=== PATIENT | female | born 1940 | race Hispanic/Latino ===

== ENCOUNTER 2017-12-28 12:47 | Emergency (ER) | payer MEDICARE ==
--- OUTSIDE RECORDS SUMMARY | 2017-12-28 12:50 | XMS REPORT | Clinical Summary ---
:1940 Author Organization [facility] Address [address] [place] [address] Care Team Providers Name Role Phone [place] Davis Primary Care Provider Unavailable Allergies Active Allergy Reactions Severity Noted Date Comments Amoxicillin-Pot Clavulanate Other (See Comments) 04/01/2017 Chest pain Iodine 03/31/2017 Levofloxacin 03/31/2017 Medications Medication Sig Dispensed Refills Start Date End Date Status aspirin (ECOTRIN) 81 Take 81 mg by 0 Active MG enteric coated mouth daily. tablet citalopram (CeleXA) 10 Take 10 mg by 0 Active MG tablet mouth daily. losartan-hydrochloroth Take 2 tablets by 0 Active iazide (HYZAAR) mouth daily. 50-12.5 mg per tablet potassium chloride Take 10 mEq by 0 Active (K-DUR,KLOR-CON) 10 mouth 2 (two) MEQ CR tablet times a day. atorvastatin (LIPITOR) Take 10 mg by 0 Active 10 MG tablet mouth nightly. metoprolol tartrate Take 50 mg by 0 Active (LOPRESSOR) 50 mg mouth 2 (two) tablet times a day. clopidogrel (PLAVIX) Take 75 mg by 0 Active 75 mg tablet mouth daily. pentoxifylline Take 400 mg by 0 Active (TRENTal) 400 mg CR mouth 3 (three) tablet times a day with meals. cetirizine (ZyrTEC) 10 Take 10 mg by 0 Active MG tablet mouth daily. brimonidine (ALPHAGAN) Administer 1 drop 0 Active 0.2 % ophthalmic to both eyes 2 solution (two) times a day. timolol (TIMOPTIC) 0.5 Administer 1 drop 0 Active % ophthalmic solution to both eyes 2 (two) times a day. latanoprost (XALATAN) Administer 1 drop 0 Active 0.005 % ophthalmic to both eyes solution nightly. glipiZIDE (GLUCOTROL) Take 10 mg by 0 Active 10 MG tablet mouth daily. benzonatate (TESSALON) Take 1 capsule 60 capsule 0 04/04/2017 Active 100 MG capsule (100 mg total) by mouth 3 (three) times a day as needed for cough for up to 60 doses. Active Problems Problem Noted Date Coronary artery disease involving [place] coronary artery 03/31/2017 Essential hypertension 03/31/2017 Depression 03/31/2017 NSTEMI (non-ST elevated myocardial infarction) 03/31/2017 Encounters Date Type Specialty Care Team Description 04/03/2017 Surgery Procedural Attar, Cv left heart cath w Cardiology MD Katia lv gram cors [08560 (CPT)] 03/31/2017 - Hospital Encounter Cardiology Chu, Coronary artery disease involving [place] coronary artery of [place] heart, angina presence unspecified (Primary Dx); 04/04/2017 Gunnar O. Sr., Essential hypertension; MD Álvarez single current episode of major depressive disorder after 12/27/2016 Immunizations Name Dates Previously Given Next Due Pneumococcal Conjugate 13-Valent 04/02/2017 Social History Tobacco Use Types Packs/Day Years Used Date Never Smoker Smokeless Tobacco: Never Used Sex Assigned at Date Recorded Not on file Job Start Date Occupation Industry Not on file Not on file Not on file Travel History Travel Start Travel End No recent travel history available. Last Filed Vital Signs Vital Sign Reading Time Taken Blood Pressure 167/72 04/04/2017 10:19 AM SURGEON ASSISTANT Pulse 66 04/04/2017 10:19 AM SURGEON ASSISTANT Temperature 36.1 C (97 F) 04/04/2017 7:08 AM SURGEON ASSISTANT Respiratory Rate 18 04/04/2017 7:08 AM SURGEON ASSISTANT Oxygen Saturation 89% 04/04/2017 10:19 AM SURGEON ASSISTANT Inhaled Oxygen Concentration - - Weight 64.8 kg (142 lb 14.4 oz) 04/04/2017 5:29 AM SURGEON ASSISTANT Height 152.4 cm (5') 03/31/2017 5:35 PM SURGEON ASSISTANT Body Mass Index 27.91 04/04/2017 5:29 AM SURGEON ASSISTANT Plan of Treatment Health Maintenance Due Date Last Done Comments SHINGRIX VACCINE (1 of 2) 1988 ZOSTER VACCINE 1998 PNEUMOCOCCAL POLYSACCHARIDE VACCINE AGE 65 AND OVER 07/23/2003 INFLUENZA VACCINE 09/13/2017 PNEUMOCOCCAL-13 Completed 04/02/2017 Procedures Procedure Name Priority Date/Time Associated Comments Diagnosis POC GLUCOSE Routine 04/04/2017 8:00 Results for this AM SURGEON ASSISTANT procedure are in the results section. PARTIAL THROMBOPLASTIN Routine 04/04/2017 5:10 Results for this TIME (PTT) AM SURGEON ASSISTANT procedure are in the results section. POC GLUCOSE Routine 04/03/2017 9:29 Results for this PM SURGEON ASSISTANT procedure are in the results section. POC GLUCOSE Routine 04/03/2017 6:08 Results for this PM SURGEON ASSISTANT procedure are in the results section. CV PCI STENT Routine 04/03/2017 5:36 Results for this PM SURGEON ASSISTANT procedure are in the results section. CV LEFT HEART CATH LV Routine 04/03/2017 5:36 Results for this GRAM WITH CORS PM SURGEON ASSISTANT procedure are in the results section. POC GLUCOSE Routine 04/03/2017 11:24 Results for this AM SURGEON ASSISTANT procedure are in the results section. POC GLUCOSE Routine 04/03/2017 7:47 Results for this AM SURGEON ASSISTANT procedure are in the results section. PARTIAL THROMBOPLASTIN Routine 04/03/2017 4:20 Results for this TIME (PTT) AM SURGEON ASSISTANT procedure are in the results section. HC COMPLETE BLD COUNT Routine 04/03/2017 4:20 Results for this W/AUTO DIFF AM SURGEON ASSISTANT procedure are in the results section. ZZESTIMATED GFR Routine 04/03/2017 4:00 Results for this AM SURGEON ASSISTANT procedure are in the results section. BASIC METABOLIC PANEL Routine 04/03/2017 4:00 Results for this AM SURGEON ASSISTANT procedure are in the results section. POC GLUCOSE Routine 04/02/2017 9:03 Results for this PM SURGEON ASSISTANT procedure are in the results section. POC GLUCOSE Routine 04/02/2017 5:19 Results for this PM SURGEON ASSISTANT procedure are in the results section. POC GLUCOSE Routine 04/02/2017 12:05 Results for this PM SURGEON ASSISTANT procedure are in the results section. POC GLUCOSE Routine 04/02/2017 7:40 Results for this AM SURGEON ASSISTANT procedure are in the results section. ZZESTIMATED GFR Routine 04/02/2017 4:00 Results for this AM SURGEON ASSISTANT procedure are in the results section. BASIC METABOLIC PANEL Routine 04/02/2017 4:00 Results for this AM SURGEON ASSISTANT procedure are in the results section. PARTIAL THROMBOPLASTIN Timed 04/02/2017 3:45 Results for this TIME (PTT) AM SURGEON ASSISTANT procedure are in the results section. HC COMPLETE BLD COUNT Routine 04/02/2017 3:45 Results for this W/AUTO DIFF AM SURGEON ASSISTANT procedure are in the results section. ECHOCARDIOGRAM 2D Routine 04/01/2017 10:34 Results for this COMPLETE W MMODE PM SURGEON ASSISTANT procedure are in SPECTRAL COLOR DOPPLER the results (46931) section. POC GLUCOSE Routine 04/01/2017 9:27 Results for this PM SURGEON ASSISTANT procedure are in the results section. PARTIAL THROMBOPLASTIN Timed 04/01/2017 6:40 Results for this TIME (PTT) PM SURGEON ASSISTANT procedure are in the results section. POC GLUCOSE Routine 04/01/2017 4:21 Results for this PM SURGEON ASSISTANT procedure are in the results section. POC GLUCOSE Routine 04/01/2017 12:14 Results for this PM SURGEON ASSISTANT procedure are in the results section. PARTIAL THROMBOPLASTIN Timed 04/01/2017 11:30 Results for this TIME (PTT) AM SURGEON ASSISTANT procedure are in the results section. POC GLUCOSE Routine 04/01/2017 7:39 Results for this AM SURGEON ASSISTANT procedure are in the results section. HEMOGLOBIN A1C Routine 04/01/2017 3:00 Results for this AM SURGEON ASSISTANT procedure are in the results section. ZZESTIMATED GFR Routine 04/01/2017 3:00 Results for this AM SURGEON ASSISTANT procedure are in the results section. T4, FREE Routine 04/01/2017 3:00 Results for this AM SURGEON ASSISTANT procedure are in the results section. THYROID STIMULATING Routine 04/01/2017 3:00 Results for this HORMONE AM SURGEON ASSISTANT procedure are in the results section. LIPID PANEL Routine 04/01/2017 3:00 Results for this AM SURGEON ASSISTANT procedure are in the results section. BASIC METABOLIC PANEL Routine 04/01/2017 3:00 Results for this AM SURGEON ASSISTANT procedure are in the results section. HC COMPLETE BLD COUNT Routine 04/01/2017 3:00 Results for this W/AUTO DIFF AM SURGEON ASSISTANT procedure are in the results section. PARTIAL THROMBOPLASTIN Routine 04/01/2017 2:30 Results for this TIME (PTT) AM SURGEON ASSISTANT procedure are in the results section. ECG 12-LEAD Routine 03/31/2017 6:45 Results for this PM SURGEON ASSISTANT procedure are in the results section. POC GLUCOSE Routine 03/31/2017 6:33 Results for this PM SURGEON ASSISTANT procedure are in the results section. TROPONIN Routine 03/31/2017 6:28 Results for this PM SURGEON ASSISTANT procedure are in the results section. PROTHROMBIN TIME WITH Routine 03/31/2017 6:28 Results for this INR PM SURGEON ASSISTANT procedure are in the results section. PARTIAL THROMBOPLASTIN Routine 03/31/2017 6:28 Results for this TIME (PTT) PM SURGEON ASSISTANT procedure are in the results section. after 12/27/2016 Results POC glucose (04/04/2017 8:00 AM SURGEON ASSISTANT)Only the most recent of14 resultswithin the time period is included. POC glucose 142 (H) 65 - 99 mg/dL [facility] DEPARTMENT OF PATHOLOGY AND Comment: [facility] Notified RN Meter ID: [id number] Tax Auditor: Manas Hancock Performing Organization Address [facility] Phone Number [facility] DEPARTMENT OF PATHOLOGY AND [address] [place] [id number] [facility] Partial thromboplastin time, activated (04/04/2017 5:10 AM SURGEON ASSISTANT)Only the most recent of7 resultswithin the time period is included. PTT 31.3 23.0 - 36.0 sec [facility] DEPARTMENT OF PATHOLOGY Comment: AND [facility] PTT therapeutic range for unfractionated heparin is 61.0-112.0 seconds which corresponds to Anti-Xa 0.3-0.7 U/ml. Specimen Blood Performing Organization Address [facility] Phone Number [facility] DEPARTMENT OF PATHOLOGY AND [address] [place] [address] [facility] Cv geophysical laboratory director procedure (04/03/2017 5:36 PM SURGEON ASSISTANT) Cath EF Estimated 53 % [facility] Narrative Performed At Left main 95% stenosis. LAD occluded proximally after the origin of the [facility] ramus branch. Circumflex occluded proximally. RCA occluded proximally. MEDINA to LAD patent. SVBG to RCA patent with proximal eccentric 50% lesion. SVBG to OM1 patent and fills the circumflex retrogradedly but distal OM is very small. LV EF 55-60% with inferior wall hypokinesis and anterior wall hypokinesis. Mitral valve prolapse with mild insufficiency. Performing Organization Address [facility] Phone Number [facility] [address] [place] [address] CBC with platelet and differential (04/03/2017 4:20 AM SURGEON ASSISTANT)Only the most recent of3 resultswithin the time period is included. WBC 7.06 4.50 - 11.00 k/uL [facility] DEPARTMENT OF PATHOLOGY AND GENOMIC MEDICINE RBC 4.54 4.20 - 5.50 m/uL [facility] DEPARTMENT OF PATHOLOGY AND GENOMIC MEDICINE HGB 11.4 (L) 12.0 - 16.0 g/dL [facility] DEPARTMENT OF PATHOLOGY AND GENOMIC MEDICINE HCT 36.8 (L) 37.0 - 47.0 % [facility] DEPARTMENT OF PATHOLOGY AND GENOMIC MEDICINE MCV 81.1 (L) 82.0 - 100.0 fL [facility] DEPARTMENT OF PATHOLOGY AND GENOMIC MEDICINE MCH 25.1 (L) 27.0 - 34.0 pg [facility] DEPARTMENT OF PATHOLOGY AND GENOMIC MEDICINE MCHC 31.0 31.0 - 37.0 g/dL [facility] DEPARTMENT OF PATHOLOGY AND GENOMIC MEDICINE RDW - SD 46.7 37.0 - 55.0 fL [facility] DEPARTMENT OF PATHOLOGY AND GENOMIC MEDICINE MPV 11.5 8.8 - 13.2 fL [facility] DEPARTMENT OF PATHOLOGY AND GENOMIC MEDICINE Platelet count 185 150 - 400 k/uL [facility] DEPARTMENT OF PATHOLOGY AND GENOMIC MEDICINE Nucleated RBC 0.30 /100 WBC [facility] DEPARTMENT OF PATHOLOGY AND GENOMIC MEDICINE Neutrophils 52.7 39.0 - 69.0 % [facility] DEPARTMENT OF PATHOLOGY AND GENOMIC MEDICINE Lymphocytes 34.6 25.0 - 45.0 % [facility] DEPARTMENT OF PATHOLOGY AND GENOMIC MEDICINE Monocytes 8.4 0.0 - 10.0 % [facility] DEPARTMENT OF PATHOLOGY AND GENOMIC MEDICINE Eosinophils 3.7 0.0 - 5.0 % [facility] DEPARTMENT OF PATHOLOGY AND GENOMIC MEDICINE Basophils 0.3 0.0 - 1.0 % [facility] DEPARTMENT OF PATHOLOGY AND GENOMIC MEDICINE Immature granulocytes 0.3Comment: 0.0 - 1.0 % [facility] DEPARTMENT OF "Immature PATHOLOGY AND GENOMIC granulocytes" MEDICINE (promyelocytes, myelocytes, metamyelocytes) Specimen Blood Performing Organization Address City/State/[facility] Phone Number [facility] DEPARTMENT OF PATHOLOGY AND [address] [place] [address] [employer] MEDICINE Estimated GFR (04/03/2017 4:00 AM SURGEON ASSISTANT)Only the most recent of3 resultswithin the time period is included. GFR Non Af Amer 81 mL/min/1.73 m2 [facility] DEPARTMENT OF PATHOLOGY AND GENOMIC MEDICINE GFR Af Amer >90 mL/min/1.73 m2 [facility] DEPARTMENT OF Comment: PATHOLOGY AND GENOMIC Chronic kidney disease: <60 mL/min/1.73m2 MEDICINE Kidney failure: <15 mL/min/1.73m2 The estimated GFR is calculated from the IDMS-traceable Modification of Diet in Renal Disease Equation. The accuracy of the calculation is poor when the creatinine is normal. Calculated values >90 mL/min/1.73m2 are not reported. This equation has not been validated in children (<18 years), women, the elderly (>70 years), or ethnic groups other than Caucasians and Americans. Specimen Plasma specimen Performing Organization Address City/[facility] Phone Number [facility] DEPARTMENT OF PATHOLOGY AND [address] [place] [address] MEDICINE Basic metabolic panel (04/03/2017 4:00 AM SURGEON ASSISTANT)Only the most recent of3 resultswithin the time period is included. Sodium 142 135 - 148 mEq/L [facility] DEPARTMENT OF PATHOLOGY AND GENOMIC MEDICINE Potassium 3.9 3.5 - 5.0 mEq/L [facility] DEPARTMENT OF PATHOLOGY AND GENOMIC MEDICINE Chloride 102 98 - 112 mEq/L [facility] DEPARTMENT OF PATHOLOGY AND GENOMIC MEDICINE CO2 25 24 - 31 mEq/L [facility] DEPARTMENT OF PATHOLOGY AND GENOMIC MEDICINE Anion gap 15 7 - 15 mEq/L [facility] DEPARTMENT OF PATHOLOGY Comment: AND GENOMIC MEDICINE Starting from May , anion gap calculation no longer incorporates potassium. Please note the change. BUN 25 (H) 8 - 23 mg/dL [facility] DEPARTMENT OF PATHOLOGY AND GENOMIC MEDICINE Creatinine 0.7 0.5 - 0.9 mg/dL [facility] DEPARTMENT OF PATHOLOGY AND GENOMIC MEDICINE Glucose 124 (H) 65 - 99 mg/dL [facility] DEPARTMENT OF PATHOLOGY AND GENOMIC MEDICINE Calcium 9.4 8.8 - 10.2 mg/dL [facility] DEPARTMENT OF PATHOLOGY AND GENOMIC MEDICINE Specimen Plasma specimen Performing Organization Address [facility] Phone Number [facility] DEPARTMENT OF PATHOLOGY AND [address] [place] [address] Echocardiogram complete w contrast and 3D if needed (04/01/2017 10:34 PM SURGEON ASSISTANT) Narrative Performed At [facility] Echocardiography Report [id number] [place] [address] Pat.Name:EVA HASKINS Pat.ID:[id number] .Date: 04/01/2017 Refer.MD:GUNNAR RENTERIA MD Exam Time: 9:50:00 PMStudy Type:Routine Echo Height:60inWeight: 143lb BSA: 1.62 m2 DOBAge:1940,76Y Sex: FEMALEBP:124/61 HR:70 bpmSonogrphr: Victor Manuel Garrido [place] Pat. Stat.:Inpatient Room:G2085-P Study Status:Final Echo Event ID:[id number] Order ID:[id number] Reason for Study:Acute Chest Pain (Rest Imaging Only)-Possible ACS; ECG-no ischemic changes or with LBBB or electronically ventricular paced rhythm; initial troponin negative; recent or ongoing chest pain History / Clinical:Chest Pain Procedures:2D Echo, Colorflow Doppler, Portable Race:C SUMMARY: LV size is normal. LV EF is normal. Estimated EF is 60-64%. RV size is normal. RV systolic function is normal. Moderate aortic valve stenosis. Eccentric mitral regurgitant jet directed posteriorly and laterally. Difficult to assess severity, suspect a moderate lesion. FINDINGS: LV: LV size is normal. LV EF is normal. Overall wall motion is normal.Estimated EF is 60-64%. RV: RV size is normal. RV systolic function is normal. LA: LA volume is difficult to assess due to off axis views, appearsenlarged. RA: RA size is normal. AO: Aortic root diameter is upper limits of normal in size. Calcificationsin ascending aorta. AKIN: No pericardial effusion. AV: Moderate to severe thickening and calcification of AV leaflets.Moderate aortic valve stenosis. MV: Thickened and/or calcified chordae. Eccentric mitral regurgitantjet directed posteriorly and laterally. Difficultto assess severity, suspect a moderate lesion. PV: No structural PV abnormalities noted. TV: No structural TV abnormalities noted. Pabon: Hepatic vein pressure is normal, RA pressure < 5mmHg. Diastolicdysfunction Grade II (Moderate): Impaired relaxationwith elevated LV filling pressures. Other:Insufficient TR jet to estimate PA systolic pressure. MEASUREMENTS: 2D Parasternal [place] LVOT 1.9 cmLA Ds3.3 cm LVIDd4.8 cmIndex2.9 cm/m Ao An2.3 cm LVIDs3.1 cmAo Rtd 3.1 cm Index1.9 cm/m LV%fs 34.2 % LV Qlqg405.3 g(87-129) IVSd 1 cmLVM Culul135 g/m2 LVPWd1 cmRWT0.4 LA Sng Plane LA Area 13.9 cm2(8.8-23.4) LA Vol33.5 ml Index20.7 ml/m LA LngAx 4.5 cm DOPPLER AV For Flow/JOANA AV pkVel 227.3 cm/s (100-170) AV AC/ET 0.3 AV mnVel 170.5 cm/Rebecca TVI58.2 cm AV pkPG 20.7 mmHgAVpkAcRt 14337.6 cm/s2 AV Mean G 13.6 mmHgAV CvNc844.4 cm/s2 AV AC105 msec (83-118) AV Area0.9 cm2(3-5) AV ET341 msec LVOT For Flow LVOT Area2.8 cm2 LVOT SV 54.7 ml LVOTpkVel 88.9 cm/sHR73.3 bpm LVOTpkPG 3.2 mmHgLVOT CO4 l/min LVOTmnPG 1.8 mmHgLVOT CI2.5 l/m/m2 LVOT TVI19.3 cm Signed 04/03/2017 09:29 AM Rohit Weathers M.D. Procedure Note Interface, Radiology Results In - 04/03/2017 9:29 AM SURGEON ASSISTANT Echocardiography Report [id number] [address] Pat.Name: EVA HASKINS Luis Jj.ID: [id number] .Date: 04/01/2017 Refer.MD: GUNNAR RENTERIA MD Exam Time: 9:50:00 PM Study Type:Routine Echo Height: 60in Weight: 143lb BSA: 1.62 m2 Age: 4 1940,76Y Sex: FEMALE BP: 124/61 HR: 70 bpm Sonogrphr: Victor Manuel Garrido RDCS Pat. Stat.:Inpatient Room: [address] Study Status:Final Echo Event ID:[id number] Order ID: [id number] Reason for Study:Acute Chest Pain (Rest Imaging Only)-Possible ACS; ECG-no ischemic changes or with LBBB or electronically ventricular paced rhythm; initial troponin negative; recent or ongoing chest pain History / Clinical:Chest Pain Procedures:2D Echo, Colorflow Doppler, Portable Race: C SUMMARY: LV size is normal. LV EF is normal. Estimated EF is 60-64%. RV size is normal. RV systolic function is normal. Moderate aortic valve stenosis. Eccentric mitral regurgitant jet directed posteriorly and laterally. Difficult to assess severity, suspect a moderate lesion. FINDINGS: LV: LV size is normal. LV EF is normal. Overall wall motion is normal. Estimated EF is 60-64%. RV: RV size is normal. RV systolic function is normal. LA: LA volume is difficult to assess due to off axis views, appears enlarged. RA: RA size is normal. AO: Aortic root diameter is upper limits of normal in size. Calcifications in ascending aorta. AKIN: No pericardial effusion. AV: Moderate to severe thickening and calcification of AV leaflets. Moderate aortic valve stenosis. MV: Thickened and/or calcified chordae. Eccentric mitral regurgitant jet directed posteriorly and laterally. Difficult to assess severity, suspect a moderate lesion. PV: No structural PV abnormalities noted. TV: No structural TV abnormalities noted. Pabon: Hepatic vein pressure is normal, RA pressure < 5mmHg. Diastolic dysfunction Grade II (Moderate): Impaired relaxation with elevated LV filling pressures. Other: Insufficient TR jet to estimate PA systolic pressure. MEASUREMENTS: 2D Parasternal [place] LVOT 1.9 cm LA Ds 3.3 cm LVIDd 4.8 cm Index 2.9 cm/m Ao An 2.3 cm LVIDs 3.1 cm Ao Rtd 3.1 cm Index 1.9 cm/m LV%fs 34.2 % LV Mass 173.3 g (87-129) IVSd 1 cm LVM Index 107 g/m2 LVPWd 1 cm RWT 0.4 LA Sng Plane LA Area 13.9 cm2 (8.8-23.4) LA Vol 33.5 ml Index 20.7 ml/m LA LngAx 4.5 cm DOPPLER AV For Flow/JOANA AV pkVel 227.3 cm/s (100-170) AV AC/ET 0.3 AV mnVel 170.5 cm/s AV TVI 58.2 cm AV pkPG 20.7 mmHg AVpkAcRt 15157.6 cm/s2 AV Mean G 13.6 mmHg AV DeRt 666.4 cm/s2 AV AC 105 msec (83-118) AV Area 0.9 cm2 (3-5) AV ET 341 msec LVOT For Flow LVOT Area 2.8 cm2 LVOT SV 54.7 ml LVOTpkVel 88.9 cm/s HR 73.3 bpm LVOTpkPG 3.2 mmHg LVOT CO 4 l/min LVOTmnPG 1.8 mmHg LVOT CI 2.5 l/m/m2 LVOT TVI 19.3 cm Signed 04/03/2017 09:29 AM Rohit Weathers M.D. Performing Organization Address City/State/Zipcode Phone Number [facility] [address] [place] [address] Thyroid stimulating hormone (04/01/2017 3:00 AM SURGEON ASSISTANT) TSH 1.54 0.27 - 4.20 uIU/mL [facility] DEPARTMENT OF PATHOLOGY AND GENOMIC MEDICINE Specimen Plasma specimen Performing Organization Address City/[facility] Phone Number [facility] DEPARTMENT OF PATHOLOGY AND [address] [place] [address] MEDICINE T4, free (04/01/2017 3:00 AM SURGEON ASSISTANT) T4, free 1.3 0.9 - 1.7 ng/dL [facility] DEPARTMENT OF PATHOLOGY AND GENOMIC MEDICINE Specimen Plasma specimen Performing Organization Address City/[facility] Phone Number [facility] DEPARTMENT OF PATHOLOGY AND [address] [place] [phone] [place] [address] MEDICINE Hemoglobin A1c (04/01/2017 3:00 AM SURGEON ASSISTANT) Hemoglobin A1C 6.8 (H) 4.0 - 5.6 % [facility] DEPARTMENT OF PATHOLOGY Comment: AND [facility] HbA1c cutoffs for diagnosing diabetes: 4.0% - 5.6%=normal 5.7% - 6.4%=increased risk for diabetes (prediabetes) >=6.5%=diabetes Goals for glycemic control (ADA 2016) < 7.0%Target for non adults with diabetes. More or less stringent targets may be appropriate for individual patients. <7.5% Target for Children and adolescents with type 1 diabetes. Performing Organization Address City/[facility] Phone Number [facility] DEPARTMENT OF PATHOLOGY AND [address] [place] [phone] [place] [address] Lipid panel (04/01/2017 3:00 AM SURGEON ASSISTANT) Cholesterol 139 <200 mg/dL [facility] DEPARTMENT OF PATHOLOGY AND GENOMIC MEDICINE Triglycerides 157 (H) <150 mg/dL [facility] DEPARTMENT OF PATHOLOGY AND GENOMIC MEDICINE HDL cholesterol 35 (L) >40 mg/dL [facility] DEPARTMENT OF PATHOLOGY AND GENOMIC MEDICINE LDL cholesterol 86Comment: Result <100 mg/dL [facility] DEPARTMENT OF obtained by direct LDL PATHOLOGY AND GENOMIC measurement MEDICINE Lipid panel interpretation SeeBelow [facility] DEPARTMENT OF Comment: PATHOLOGY AND GENOMIC Total Cholesterol (mg/dL) MEDICINE <200 Desirable 174-123Nnvmpbheha-mxvs >=240High Triglycerides (mg/dL) <150 Normal 538-241Imotoosfyc-nwdo 200-499High >=500Very high HDL Cholesterol (mg/dL) <40Low (male) <40Low (female) LDL Cholesterol (mg/dL) <100 Optimal 100-129Near or above optimal 364-570Ntkfanqjfu-yekx 160-189High >=190Very high Risk Catergories that modify LDL goals. Risk CatergoriesLDL goal (mg/dL) CHD and CHD risk equivalent<100 (10-year risk >20%) Multiple (2+) risk factors <130 (10-year risk=<20%) 0-1 risk factors <160 (<10-year risk) Defining levels of lipids in metabolic syndrome Triglycerides>=150 mg/dL HDL Cholesterol Men<40 mg/dL Women<40 mg/dL Non-HDL cholesterol is a second target for therapy in persons with high triglycerides (>=200 mg/dL) Specimen Plasma specimen Performing Organization Address City/[facility] Phone Number [facility] DEPARTMENT OF PATHOLOGY AND [address] [place] [address] [employer] MEDICINE ECG 12 lead (03/31/2017 6:45 PM SURGEON ASSISTANT) Ventricular rate 65 [facility] Atrial rate 65 [facility] ID interval 130 [facility] QRSD interval 86 [facility] QT interval 428 [facility] MUSE QTC interval 445 [facility] MUSE P axis 1 37 [facility]USE QRS axis 1 -13 [facility] MUSE T wave axis 147 [facility] MUSE EKG impression Normal sinus rhythm-ST & T wave abnormality, [facility] MUSE consider lateral ischemia-Abnormal ECG-In automated comparison with ECG of 16-MAR-2015 14:08,-No significant change was found- Performing Organization Address [facility] [place] Phone Number [facility] MUSE [address] [place] [address] Troponin (03/31/2017 6:28 PM SURGEON ASSISTANT) Troponin <0.30 0.00 - 0.30 ng/mL [facility] DEPARTMENT OF PATHOLOGY Comment: AND GENOMIC MEDICINE 0.30 - 1.49 ng/mlMay indicate increased risk of acute coronary syndrome. >=1.5 ng/mlConsistent with acute myocardial infarction. The diagnostic value of a single normal or non-diagnostic result is questionable.Serial samples at 2-6 hour intervals are required to rule out acute myocardial injury. Specimen Plasma specimen Performing Organization Address [facility]/Zipcode Phone Number [facility] DEPARTMENT OF PATHOLOGY AND [address] [place] [address] GENOMIC MEDICINE Prothrombin time with INR (03/31/2017 6:28 PM SURGEON ASSISTANT) Prothrombin time 14.5 12.0 - 15.0 sec [facility] DEPARTMENT OF PATHOLOGY AND GENOMIC MEDICINE INR 1.1 [facility] DEPARTMENT OF Comment: PATHOLOGY AND GENOMIC The International Normalized Ratio (INR) is a therapeutic MEDICINE monitoring tool for patients who are stable on oral anticoagulant therapy. An INR of 2.0-3.0 is suggested for deep vein thrombosis/pulmonary embolism. Specimen Blood Performing Organization Address City/State/Zipcode Phone Number [facility] DEPARTMENT OF PATHOLOGY AND [address] [place] [address] GENOMIC MEDICINE after 12/27/2016 Insurance Payer Benefit Plan / Group Subscriber ID Type Phone Address UHC MEDICARE AARP MEDICARE COMPLETE [facility] xxxxxxxxx O Advance Directives Patient has advance care planning documents, and code status on file. For more information, please contact:Fernando Deleon[address] [place] [address] Code Status Date Activated Date Inactivated Comments Full Code 03/31/2017 5:49 PM 04/04/2017 3:42 PM Code Status decision reached by: Patient
--- OUTSIDE RECORDS SUMMARY | 2017-12-28 12:55 | XMS REPORT | Continuity of Care Document ---
:1940 Author Organization Interface Problems Problem Status Onset Classification Date Comments Source Date Reported UNK Active 017 [facility] 433.10/05921 Active 013 [facility] 433.10, CAROTID ARTERY Active STENOSIS 013 [facility] CAROTID STENOSIS Active 013 [facility] OTHER Active 013 [facility] TIA Resolved Problem 06/17/2016 011 [facility] DM - Diabetes mellitus Resolved Problem 04/28/2012 [facility] Hypercholesterolemia Resolved Problem 04/28/2012 [facility] Hypertension Resolved Problem 04/28/2012 [facility] Acid reflux Active Problem 06/17/2016 [facility] Claudication Active Problem 06/17/2016 [facility] Cough Active Problem 06/17/2016 [facility] Diabetes mellitus Active Problem 06/17/2016 [facility] DM - Diabetes mellitus Resolved Problem 06/17/2016 [facility] Heart Active Problem 06/17/2016 2005 [facility] attack<sup>1</sup> [facility] Hypercholesterolemia Active Problem 06/17/2016 [facility] Hypertension Resolved Problem 06/17/2016 [facility] Hypertension Active Problem 06/17/2016 [facility] CAROTID SINUS SYNDROME Active [facility] EMBOLISM AND Active THROMBOSIS OF ARTERIES [facility]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 Use immediately after admixture" (Same as: Ferrlecit) MEDICATION WASTE Product Size: 62.5 mg Product Wasted: ___ mg Timolol 5 MG/ML 1 drp, No Longer Ophthalmic Route: Active 2016 [facility] Solution OPTH, QPM, Drug form: SOLN, Start date: 06/12/16 17:00:00 CDT, Duration: 30 day, Stop date: 07/11/16 17:00:00 CDTNotes: (Same As: Timoptic, Betimol) Brimonidine 1 drp, No Longer tartrate 1.5 Route: Active 2016 [facility] MG/ML OPTH, BID, Ophthalmic Drug form: Solution SOLN, Start date: 06/12/16 9:00:00 CDT, Duration: 30 day, Stop date: 07/11/16 17:00:00 CDTNotes: Non-formula ry. (Same as: Alphagan-P) Atropine 0.5 mg, 5 No Longer mL, Route: Active 2016 [facility] IVP, Drug form: INJ, PRN, Dosing Weight 66.818, kg, PRN Bradycardia , Start date: 06/11/16 22:37:00 CDT, Duration: 30 day, Stop date: 07/11/16 22:36:00 CDT Nitroglycerin 0.4 mg, 1 No Longer 0.4 MG tab, Route: Active 2016 [facility] Sublingual SL, Drug Tablet form: TAB, Q5Min, Dosing Weight 66.818, kg, PRN as needed for chest pain, Start date: 06/11/16 22:37:00 CDT, Duration: 30 day, Stop date: 07/11/16 22:36:00 CDTNotes: (Same as:Nitroqui ck, Nitrostat) "Do Not Crush" Sublingual tablet latanoprost 1 drp, No Longer 0.05 MG/ML Route: Active 2016 [facility] Ophthalmic OPTH, Solution Bedtime, Drug form: SOLN, Start date: 06/11/16 21:00:00 CDT, Duration: 30 day, Stop date: 07/10/16 21:00:00 CDTNotes: Keep refrigerate d. (Same as:Xalatan) Opened bottle may be stored at room temperature for 6 weeks Ferrlecit 100 mg, 8 Inactive mL, Route: 2016 [facility] IVPB, Drug form: INJ, ONCE, Dosing Weight 66.818, kg, Start date: 06/11/16 13:45:00 CDT, Stop date: 06/11/16 13:45:00 CDTNotes: (sodium ferric gluconate complex (elemental iron) 62.5 mg/5 ml INJ) "Limited stability. Use immediately after admixture" (Same as: Ferrlecit) MEDICATION WASTE Product Size: 62.5 mg Product Wasted: ___ mg Plavix 75 mg, 1 No Longer tab, Route: Active 2016 [facility] PO, Drug form: TAB, Daily, Dosing Weight 66.818, kg, Start date: 06/11/16 9:00:00 CDT, Duration: 30 day, Stop date: 07/10/16 9:00:00 CDTNotes: (Same As: Plavix) Hydrochlorothia 1 tab, No Longer zide 25 MG / Route: PO, Active 2016 [facility] Losartan Drug Form: Potassium 100 TAB, Dosing MG Oral Tablet Weight 66.818, kg, Daily, Start date: 06/10/16 9:00:00 CDT, Duration: 30 day, Stop date: 07/09/16 9:00:00 CDT Lasix 20 mg, 2 Inactive mL, Route: 2016 [facility] IV, Drug form: INJ, Daily, Dosing Weight 66.818, kg, Start date: 06/10/16 9:00:00 CDT, Duration: 1 doses or times, Stop date: 06/10/16 9:00:00 CDTNotes: (Same as: Lasix) Citalopram 10 mg, 1 No Longer tab, Route: Active 2016 [facility] PO, Drug form: TAB, Daily, Dosing Weight 66.818, kg, Start date: 06/10/16 9:00:00 CDT, Duration: 30 day, Stop date: 07/09/16 9:00:00 CDT hydrochlorothia 25 mg, 1 No Longer zide 25 mg oral tab, Route: Active 2016 [facility] tablet PO, Drug form: TAB, Daily, Start date: 06/10/16 9:00:00 CDT, Duration: 30 day, Stop date: 07/09/16 9:00:00 CDTNotes: (Same as: Hydrodiuril ) With food. Cozaar 100 mg, 2 No Longer tab, Route: Active 2016 [facility] PO, Drug form: TAB, Daily, Start date: 06/10/16 9:00:00 CDT, Duration: 30 day, Stop date: 07/09/16 9:00:00 CDTNotes: (Same as: Cozaar) sodium chloride 250 mL, No Longer 0.9% INJ 250 mL Rate: On 2016 [facility] call for use with blood product administrat ion, Dosing Weight 66.818, kg, Route: IV, Total Volume: 250, Start Date: 06/10/16 6:30:00 CDT, Duration: 1 day, Stop date: 06/11/16 6:29:00 CDT, Replace Every: 24 hr Alprazolam 0.5 0.5 mg, 1 Inactive MG Oral Tablet tab, Route: 2016 [facility] [Xanax] PO, Drug form: TAB, ONCE, Dosing Weight 66.818, kg, PRN Anxiety, Start date: 06/09/16 23:18:00 CDTNotes: With food or milk (Same as: Xanax) Symbicort 2 No Longer 160/4.5 inhalation, Active 2016 [facility] inhalation Route: aerosol with INHALATION, adapter Drug Form: AERO/A, Dosing Weight 66.818, kg, BID, Start date: 06/09/16 21:00:00 CDT, Duration: 30 day, Stop date: 07/09/16 9:00:00 CDTNotes: (Same as: Symbicort) WASTE: Aerosol - Return to Pharmacy atorvastatin 10 mg, 1 No Longer tab, Route: Active 2016 [facility] PO, Drug form: TAB, Bedtime, Dosing Weight 66.818, kg, Start date: 06/09/16 21:00:00 CDT, Duration: 30 day, Stop date: 07/08/16 21:00:00 CDTNotes: (Same As: Lipitor) insulin, 10 unit, No Longer isophane 0.1 mL, 2016 [facility] Route: SUB-Q, Drug form: INJ, Q12H, Dosing Weight 66.818, kg, Start date: 06/09/16 21:00:00 CDT, Duration: 30 day, Stop date: 07/09/16 9:00:00 CDTNotes: Roll in palms of hands gently; Do not shake vigorously. (Same as: NovoLIN N, Humulin N) Do not hold insulin without contacting prescriber "single patient use only" WASTE: F/P - Black; E - Municipal Trash Bin Stable for 14 days at room temperature Expires in days from ___Date Dextrose 50% 25 mL, Inactive Syringe Route: IVP, 2016 [facility] Dosing Weight 66.818, kg, PRN, PRN Blood Glucose Results, Start date: 06/09/16 9:55:00 CDT, Duration: 30 day, Stop date: 07/09/16 9:54:00 CDT Glucagon 1 mg, Inactive Route: IM, 2016 [facility] PRN, Dosing Weight 66.818, kg, PRN Blood Glucose Results, Start date: 06/09/16 9:55:00 CDT, Duration: 30 day, Stop date: 07/09/16 9:54:00 CDT metoprolol 50 mg, 1 No Longer tartrate tab, Route: Active 2016 [facility] PO, Drug form: TAB, Q12H, Dosing Weight 66.818, kg, Start date: 06/09/16 9:00:00 CDT, Duration: 30 day, Stop date: 07/08/16 21:00:00 CDTNotes: (Same as: Lopressor) Streptococcus 0.5 mL, Inactive pneumoniae Route: IM, 2016 [facility] serotype 1 Drug Form: capsular INJ, Daily, antigen Start date: diphtheria 06/09/16 [id number] protein 9:00:00 conjugate CDT, Stop vaccine / date: Streptococcus 06/09/16 pneumoniae 17:00:00 serotype 14 CDTNotes: capsular Lightly antigen roll vial diphtheria (DO NOT [id number] protein SHAKE) conjugate before vaccine / administrat Streptococcus ion. (Same pneumoniae as: Prevnar serotype 18C 13) capsular antigen d Lovenox 40 mg, 0.4 No Longer mL, Route: Active 2016 [facility] SUB-Q, Drug form: INJ, [id number], Dosing Weight 66.818, kg, Priority: Within 8 hours, Start date: 06/09/16 6:00:00 CDT, Duration: 30 day, Stop date: 07/08/16 6:00:00 CDTNotes: (Same as: Lovenox) Insulin, 12 unit, No Longer Aspart, Human 0.12 mL, Active 2016 [facility] Route: SUB-Q, Drug form: SOLN, TID-Before Meals, Dosing Weight 66.818, kg, PRN Blood Glucose Results, Start date: 06/08/16 21:44:00 CDT, Duration: 30 day, Stop date: 07/08/16 21:43:00 CDTNotes: Roll in palms of hands gently; Do not shake vigorously. (Same as: NovoLOG) "single patient use only" WASTE: F/P - Black; E - Municipal Trash Bin Stable for 28 days at room temperature . Expires in days from ___Date Dextrose 50% 25 gm, 50 No Longer Syringe mL, Route: Active 2016 [facility] IVP, Drug Form: INJ, Dosing Weight 66.818, kg, PRN, PRN Blood Glucose Results, Start date: 06/08/16 21:44:00 CDT, Duration: 30 day, Stop date: 07/08/16 21:43:00 CDT Glucagon 1 mg, No Longer Route: IM, Active 2016 [facility] Drug form: PDR/INJ, PRN, Dosing Weight 66.818, kg, PRN Blood Glucose Results, Start date: 06/08/16 21:44:00 CDT, Duration: 30 day, Stop date: 07/08/16 21:43:00 CDT Labetalol 10 mg, 2 No Longer mL, Route: Active 2016 [facility] IV, Drug form: INJ, Q6H, Dosing Weight 66.818, kg, PRN Hypertensio n, Start date: 06/08/16 14:46:00 CDT, Duration: 30 day, Stop date: 07/08/16 14:45:00 CDTNotes: (Same as: Normodyne, Trandate) Push over 2 minutes Give bolus over 2-3 minutes. Hydralazine 10 mg, 0.5 No Longer mL, Route: Active 2016 [facility] IV, Drug form: INJ, Q4H, Dosing Weight 66.818, kg, PRN Hypertensio n, Start date: 06/08/16 14:45:00 CDT, Duration: 30 day, Stop date: 07/08/16 14:44:00 CDTNotes: (Same as: Apresoline) Push over 5 minutes Hydralazine 10 mg, 0.5 Inactive mL, Route: 2016 [facility] IV, Drug form: INJ, ONCE, Dosing Weight 66.818, kg, PRN Hypertensio n, Start date: 06/08/16 13:51:00 CDT, htnNotes: (Same as: Apresoline) Push over 5 minutes glycopyrrolate Route: IV, Inactive (ANES) Drug form: 2016 [facility] INJ, ONCE, Stop date: 06/08/16 11:45:00 CDT neostigmine Route: IV, Inactive (ANES) Drug form: 2016 [facility] INJ, ONCE, Stop date: 06/08/16 11:45:00 CDT ondansetron Route: IV, Inactive (ANES) Drug form: 2016 [facility] INJ, ONCE, Stop date: 06/08/16 11:44:00 CDT sodium chloride 1,000 mL, No Longer 0.9% 1000 ml Rate: 100 Active 2016 [facility] INJ 1,000 mL ml/hr, Infuse over: 10 hr, Route: IV, Dosing Weight 66.818 kg, Total Volume: 1,000, Start date: 06/08/16 11:33:00 CDT, Duration: 30 day, Stop date: 07/08/16 11:32:00 CDT Morphine 2 mg, 1 mL, No Longer Route: IVP, Active 2016 [facility] Drug form: INJ, Q3H, Dosing Weight 66.818, kg, PRN Pain Score 1-3, Start date: 06/08/16 11:33:00 CDT, Duration: 30 day, Stop date: 07/08/16 11:32:00 CDTNotes: (Same as:MORPhine Sulfate) acetaminophen-c 1 tab, No Longer odeine #3 Route: PO, Active 2016 [facility] Drug Form: TAB, Dosing Weight 66.818, kg, Q4H, PRN Pain Score 4-6, Start date: 06/08/16 11:33:00 CDT, Duration: 30 day, Stop date: 07/08/16 11:32:00 CDTNotes: Do not exceed 4gm/day of acetaminoph en. (Same as: Tylenol with Codeine # 3) protamine Route: IV, Inactive (ANES) (ANES) Drug form: 2016 [facility] INJ, Start date: 06/08/16 11:14:00 CDT, Stop date: 06/08/16 12:14:00 CDT norepinephrine Route: IV, Inactive (ANES) Drug form: 2016 [facility] INJ, ONCE, Stop date: 06/08/16 11:04:00 CDT lidocaine Route: IV, Inactive (ANES) Drug form: 2016 [facility] INJ, ONCE, Stop date: 06/08/16 10:55:00 CDT rocuronium Route: IV, Inactive (ANES) Drug form: 2016 [facility] INJ, ONCE, Stop date: 06/08/16 10:55:00 CDT propofol (ANES) Route: IV, Inactive Drug form: 2016 [facility] INJ, ONCE, Stop date: 06/08/16 10:55:00 CDT heparin (ANES) Route: IV, Inactive Drug form: 2016 [facility] INJ, ONCE, Stop date: 06/08/16 10:55:00 CDT fentaNYL (ANES) Route: IV, Inactive Drug form: 2016 [facility] INJ, ONCE, Stop date: 06/08/16 10:54:00 CDT acetaminophen Route: IV, Inactive (ANES) (ANES) Drug form: 2016 [facility] INJ, Start date: 06/08/16 10:45:00 CDT, Stop date: 06/08/16 11:45:00 CDT famotidine Route: IV, Inactive (ANES) Drug form: 2016 [facility] INJ, ONCE, Stop date: 06/08/16 10:39:00 CDT methylPREDNISol Route: IV, Inactive one (ANES) Drug form: 2016 [facility] INJ, ONCE, Stop date: 06/08/16 10:39:00 CDT diphenhydrAMINE Route: IV, Inactive (ANES) Drug form: 2016 [facility] INJ, ONCE, Stop date: 06/08/16 10:39:00 CDT norepinephrine Route: IV, Inactive MH (ANES) (ANES) Drug form: 2016 [facility] INJ, Start date: 06/08/16 10:25:00 CDT, Stop date: 06/08/16 11:25:00 CDT vancomycin Route: IV, Inactive (ANES) (ANES) Drug form: 2016 [facility] INJ, Start date: 06/08/16 10:01:00 CDT, Stop date: 06/08/16 11:01:00 CDT sodium chloride Route: IV, Inactive 0.9% 1000 ml Total 2016 [facility] INJ (ANES) Volume: 1,000, Start date: 06/08/16 9:57:00 CDT, Stop date: 06/08/16 10:57:00 CDT ceFAZolin Route: IV, Inactive (ANES) (ANES) Drug form: 2016 [facility] INJ, Start date: 06/08/16 9:51:00 CDT, Stop date: 06/08/16 10:51:00 CDT LR 1000 mL INJ Route: IV, Inactive (ANES) Total 2016 [facility] Volume: 1,000, Start date: 06/08/16 9:30:00 CDT, Stop date: 06/08/16 10:30:00 CDT Insulin regular 6 unit, Inactive Route: IV, 2016 [facility] ONCE, Dosing Weight 66.818, kg, Start date: 06/08/16 9:10:00 CDT, Stop date: 06/08/16 9:10:00 CDT Albuterol 0.833 3 mL, Inactive MG/ML / Route: NEB, 2016 [facility] Ipratropium Drug Form: [place] 0.167 SOLN, MG/ML Inhalant Dosing Solution Weight 66.818, kg, ONCE, STAT, Start date: 06/08/16 9:07:00 CDT, Stop date: 06/08/16 9:07:00 CDTNotes: (Same as: Duoneb) Calcium 1,000 mL, No Longer Chloride 0.0014 Rate: 25 Active 2016 [facility] MEQ/ML / ml/hr, Potassium Infuse Chloride 0.004 over: 40 MEQ/ML / Sodium hr, Route: Chloride 0.103 IV, Dosing MEQ/ML / Sodium Weight Lactate 0.028 66.818 kg, MEQ/ML Total Injectable Volume: Solution 1,000, Start date: 06/08/16 9:07:00 CDT, Duration: 1 day, Stop date: 06/09/16 9:06:00 CDT Vancomycin 1 gm, No Longer Route: Active 2016 [facility] IVPB, PRE OP, Dosing Weight 68.636, kg, Start date: 06/08/16 7:00:00 CDT, Stop date: 06/09/16 7:47:00 CDTNotes: TIME CRITICAL MEDICATION (Same As: Vancocin) Infusion rate 2001 mg: infuse over 2.5 hours MEDICATION WASTE Product Size: 1000 mg Product Wasted: ___ mg Ancef 2 gm, 100 No Longer mL, Route: Active 2016 [facility] IVPB, Drug form: INJ, PRE OP, Dosing Weight 68.636, kg, Start date: 06/08/16 7:00:00 CDT, Stop date: 06/09/16 7:46:00 CDTNotes: Same as: Ancef Morphine 2 mg, Inactive Route: IVP, 2016 [facility] Q3H, Dosing Weight 68.636, kg, PRN Pain Score 1-3, Start date: 06/03/16 12:29:00 CDT, Duration: 30 day, Stop date: 07/03/16 12:28:00 CDT acetaminophen-c 2 tab, Inactive odeine #3 Route: PO, 2016 [facility] Drug Form: TAB, Dosing Weight 68.636, kg, Q4H, PRN Pain Score 4-6, Start date: 06/03/16 12:29:00 CDT, Duration: 30 day, Stop date: 07/03/16 12:28:00 CDT diphenhydrAMINE Route: IV, Inactive (ANES) Drug form: 2016 [facility] INJ, ONCE, Stop date: 06/03/16 12:24:00 CDT methylPREDNISol Route: IV, Inactive one (ANES) Drug form: 2016 [facility] INJ, ONCE, Stop date: 06/03/16 12:24:00 CDT ondansetron Route: IV, Inactive (ANES) Drug form: 2016 [facility] INJ, ONCE, Stop date: 06/03/16 12:24:00 CDT fentaNYL (ANES) Route: IV, Inactive Drug form: 2016 [facility] INJ, ONCE, Stop date: 06/03/16 12:24:00 CDT midazolam Route: IV, Inactive (ANES) Drug form: 2016 [facility] SOLN, ONCE, Stop date: 06/03/16 12:24:00 CDT famotidine Route: IV, Inactive (ANES) Drug form: 2016 [facility] INJ, ONCE, Stop date: 06/03/16 12:24:00 CDT vancomycin Route: IV, Inactive (ANES) (ANES) Drug form: 2016 [facility] INJ, Start date: 06/03/16 12:00:00 CDT, Stop date: 06/03/16 13:00:00 CDT ceFAZolin Route: IV, Inactive (ANES) (ANES) Drug form: 2016 [facility] INJ, Start date: 06/03/16 11:47:00 CDT, Stop date: 06/03/16 12:47:00 CDT LR 1000 mL INJ Route: IV, Inactive (ANES) Total 2016 [facility] Volume: 1,000, Start date: 06/03/16 11:35:00 CDT, Stop date: 06/03/16 12:35:00 CDT Insulin regular 2 unit, Inactive Route: IV, 2016 [facility] ONCE, Dosing Weight 68.636, kg, Start date: 06/03/16 11:03:00 CDT, Stop date: 06/03/16 11:03:00 CDT Insulin regular 6 unit, Inactive Route: IV, 2016 [facility] ONCE, Dosing Weight 68.636, kg, Start date: 06/03/16 10:44:00 CDT, Stop date: 06/03/16 10:44:00 CDT Insulin regular 6 unit, Inactive Route: IV, 2016 [facility] ONCE, Dosing Weight 68.636, kg, Start date: 06/03/16 10:42:00 CDT, Stop date: 06/03/16 10:42:00 CDT Lactated 1,000 mL, Inactive Ringers 1,000 Rate: 40 2016 mL ml/hr, Infuse over: 25 hr, Route: IV, Dosing Weight 68.636 kg, Total Volume: 1,000, Start date: 06/03/16 10:41:00 CDT, Duration: 30 day, Stop date: 07/03/16 10:40:00 CDT Vancomycin 1 gm, No Longer Route: IV, Active 2016 [facility] PRE OP, Dosing Weight 72.727, kg, Start date: 05/26/16 9:00:00 CDT, Duration: 30 day, Stop date: 06/25/16 8:59:00 CDTNotes: TIME CRITICAL MEDICATION (Same As: Vancocin) Infusion rate 2001 mg: infuse over 2.5 hours MEDICATION WASTE Product Size: 1000 mg Product Wasted: ___ mg Ancef 2 gm, 100 No Longer mL, Route: Active 2016 [facility] IVPB, Drug form: INJ, PRE OP, Dosing Weight 72.727, kg, Start date: 05/26/16 9:00:00 CDT, Duration: 30 day, Stop date: 06/25/16 8:59:00 CDTNotes: Same as: Ancef Alendronic acid 70 mg=1 Active 70 MG Oral tab, PO, 0 2016 Tablet Refill(s) Vitamin B12 1,000 Active 1000 mcg oral microgram=1 2016 tablet tab, PO, Daily, 0 Refill(s) citalopram 10 10 mg=1 Active mg oral tablet tab, PO, 2016 Daily, 0 Refill(s) GlipiZIDE XL 10 10 mg=1 Active mg oral tablet, tab, PO, 2016 extended Daily, 0 release Refill(s) Potassium 10 mEq=1 Active Chloride 10 MEQ tab, PO, 2016 Extended BID, 0 Release Tablet Refill(s) [Klor-Con] pentoxifylline 400 mg=1 Active 400 mg oral tab, PO, 2016 tablet, TID, 0 extended Refill(s) release isosorbide 20 mg, 1 PO No Longer [place] dinitrate tab, Route: Active 2012 PO, Drug form: TAB, TID, Dosing Weight 69.091, kg, Start date: 04/26/12 13:00:00, Duration: 30 day, Stop date: 05/26/12 9:00:00 losartan 50 mg 100 mg, 2 PO Active [place] oral tablet tab, PO, 2012 Daily, 30 tab, Substitutio n Allowed, TAB metoprolol 50 75 mg, 1.5 PO Active [place] 04/26/ mg oral tablet tab, PO, 2012 BID, 30 tab, Substitutio n Allowed, TAB rosuvastatin 10 20 mg, 2 PO Active [place] 04/26/ mg oral tablet tab, PO, 2012 QPM, 30 tab, Substitutio n Allowed, TAB isosorbide 20 mg, 1 PO Active [place] 04/26/ dinitrate 20 mg tab, PO, 2012 oral tablet BID, 60 tab, Substitutio n Allowed, TAB diphenhydrAMINE 25 mg, 1 PO Active [place] 04/26/ MH 25 mg oral tab, PO, 2012 tablet TID, PRN, 30 tab, Itching, Substitutio n Allowed, TAB aspirin 325 mg 325 mg, 1 PO Active [place] tablet, enteric tab, PO, 2012 coated QAM, 30 tab, Substitutio n Allowed, ECTAB acetaminophen-h 1 tab, PO, PO Active [place] ydrocodone 325 Q4H, PRN, 2012 mg-5 mg oral 30 tab, tablet Pain Score 1-3, Substitutio n Allowed, Maintenance , TAB isosorbide 20 mg, 1 PO No Longer [place] dinitrate tab, Route: Active 2012 [facility] PO, Drug form: TAB, BID, Dosing Weight 69.091, kg, Start date: 04/25/12 21:00:00, Duration: 30 day, Stop date: 05/25/12 17:00:00 Crestor 20 mg, 2 PO No Longer [place] tab, Route: 2012 [facility] PO, Drug form: TAB, QPM, Dosing Weight 69.091, kg, Start date: 04/25/12 21:00:00, Duration: 30 day, Stop date: 05/25/12 17:00:00 methylPREDNISol 20 mg, 0.5 IV No Longer [place] one mL, Route: 2012 [facility] IV, Drug form: INJ, ONCE, Start date: 04/25/12 20:20:00, Stop date: 04/25/12 20:20:00 simvastatin 10 mg, 1 PO No Longer [place] tab, Route: Active 2012 [facility] PO, Drug form: TAB, Bedtime, Dosing Weight 69.091, kg, Start date: 04/24/12 21:00:00, Duration: 30 day, Stop date: 05/23/12 21:00:00 Benadryl 25 mg, 1 PO No Longer Shant tab, Route: 2012 [facility] PO, Drug form: TAB, TID, Dosing Weight 69.091, kg, PRN Itching, Start date: 04/24/12 4:47:00, Duration: 30 day, Stop date: 05/24/12 4:46:00 1/2 NS 1,000 mL 1,000 mL, IV No Longer [place] Rate: 50 2012 [facility] ml/hr, Infuse over: 20 hr, Route: IV, kg, Total Volume: 1,000, Start date: 04/22/12 19:46:00, Duration: 30 day, Stop date: 05/22/12 19:45:00 Robitussin 100 200 mg, 10 PO No Longer [place] mg/5 mL oral mL, Route: Active 2012 [facility] liquid PO, Drug form: LIQ, Q4H, Dosing Weight 69.091, kg, Start date: 04/22/12 14:24:00, Duration: 30 day, Stop date: 05/22/12 12:00:00 potassium 20 mEq, 100 IVPB No Longer [place] chloride mL, Route: 2012 [facility] IVPB, Drug form: INJ, Q2H, Start date: 04/22/12 10:00:00, Duration: 2 doses or times, Stop date: 04/22/12 12:00:00 Geodon 10 mg, IM No Longer [place] Route: IM, 2012 [facility] Drug form: PDR/INJ, Q8H, PRN Anxiety, Start date: 04/22/12 0:52:00, Duration: 30 day, Stop date: 05/22/12 0:51:00 aspirin 325 mg 325 mg, 1 PO No Longer Marcin tablet, enteric tab, Route: 2012 [facility] coated PO, Drug form: ECTAB, QAM, Start date: 04/21/12 9:00:00, Duration: 30 day, Stop date: 05/20/12 9:00:00 famotidine 20 mg, 1 PO No Longer [place] tab, Route: 2012 [facility] PO, Drug form: TAB, Daily, Dosing Weight 69.091, kg, Start date: 04/21/12 9:00:00, Duration: 30 day, Stop date: 05/20/12 9:00:00 niCARdipine IV, Start IV No Longer Terminella date: [facility] 2012 [facility] 04/20/12 17:35:00, Duration: 30, 200 ml, 69.091 Sodium Chloride 1,000 mL, IV No Longer [place] 0.9% IV 1,000 Rate: 70 2012 [facility] mL ml/hr, Infuse over: 14.3 hr, Route: IV, kg, Total Volume: 1,000, Start date: 04/20/12 15:38:00, Stop date: 05/20/12 15:37:00 Tylenol 650 mg, 1 [place] No Longer Marcin supp, 2012 [facility] Route: AK, Drug form: SUPP, Q4H, PRN Fever, Start date: 04/20/12 15:36:00, Duration: 30 day, Stop date: 05/20/12 15:35:00 Tylenol 650 mg, 2 PO No Longer [place] tab, Route: Active 2012 [facility] PO, Drug form: TAB, Q4H, PRN Fever, Start date: 04/20/12 15:35:00, Duration: 30 day, Stop date: 05/20/12 15:34:00 Zofran 4 mg, 2 mL, IVP No Longer [place] Route: IVP, Active 2012 [facility] Drug form: INJ, Q6H, PRN Nausea & Vomiting, Start date: 04/20/12 15:33:00, Duration: 30 day, Stop date: 05/20/12 15:32:00 morphine 4 mg, 2 mL, IV No Longer [facility] Sulfate Route: IV, 2012 [facility] Drug form: INJ, Q2H, PRN Pain Score 7-10, Start date: 04/20/12 15:27:00, Duration: 30 day, Stop date: 05/20/12 15:26:00 morphine 2 mg, 1 mL, IV No Longer [place] Sulfate Route: IV, Active 2012 [facility] Drug form: INJ, Q2H, PRN Pain Score 6-10, Start date: 04/20/12 15:24:00, Duration: 30 day, Stop date: 05/20/12 15:23:00 acetaminophen-h 2 tab, PO No Longer [place] ydrocodone 325 Route: PO, Active 2012 [facility] mg-5 mg oral Drug Form: tablet TAB, Q4H, PRN Pain Score 4-6, Start date: 04/20/12 15:24:00, Duration: 30 day, Stop date: 05/20/12 15:23:00 acetaminophen-h 1 tab, PO No Longer [place] ydrocodone 325 Route: PO, Active 2012 [facility] mg-5 mg oral Drug Form: tablet TAB, Q4H, PRN Pain Score 1-3, Start date: 04/20/12 15:23:00, Duration: 30 day, Stop date: 05/20/12 15:22:00 hydrALAZINE 10 mg, 0.5 IV No Longer [place]cin mL, Route: Active 2012 [facility] IV, Drug form: INJ, Q6H, PRN Other -See Comment, Start date: 04/20/12 15:19:00, Duration: 30 day, Stop date: 05/20/12 15:18:00 Lactated 1,000 mL, IV No Longer Marcin Ringers Rate: 25 Active 2012 [facility] Injection IV ml/hr, 1,000 mL Infuse over: 40 hr, Route: IV, kg, Total Volume: 1,000, Start date: 04/20/12 9:59:00, Duration: 1 day, Stop date: 04/21/12 9:58:00 losartan 100 mg, 2 PO No Longer [place] tab, Route: Active 2012 [facility] PO, Drug form: TAB, Daily, Dosing Weight 68.182, kg, Start date: 04/20/12 9:00:00, Duration: 30 day, Stop date: 05/19/12 9:00:00 heparin 5,000 unit, SUB-Q No Longer M[place]ouris 1 mL, Active 2012 [facility] Route: SUB-Q, Drug form: INJ, Q12H, Dosing Weight 68.182, kg, Start date: 04/19/12 21:00:00, Duration: 30 day, Stop date: 05/19/12 9:00:00 latanoprost 1 drp, OPTH No Longer [place] ophthalmic Route: Active 2012 [facility] 0.005% solution OPTH, Bedtime, Drug form: SOLN, Start date: 04/19/12 21:00:00, Duration: 30 day, Stop date: 05/18/12 21:00:00 atropine 0.5 mg, 5 IVP No Longer Yadira mL, Route: Active 2012 [facility] IVP, Drug form: INJ, PRN, PRN Bradycardia , Start date: 04/19/12 17:18:00, Duration: 30 day, Stop date: 05/19/12 18:17:00 nitroglycerin 0.4 mg, 1 SL No Longer Yadira 0.4 mg tab, Route: Active 2012 [facility] sublingual SL, Drug tablet form: TAB, Q5Min, PRN Chest Pain, Start date: 04/19/12 17:18:00, Duration: 30 day, Stop date: 05/19/12 18:17:00 vancomycin 1 gm, 200 IVPB No Longer Marcin mL, Route: Active 2012 [facility] IVPB, Drug form: INJ, ONCALL, Start date: 04/19/12 17:00:00, Duration: 1 day, Stop date: 04/20/12 16:59:00 cefazolin + 1 gm, IVPB No Longer Marcin Sodium Chloride Route: Active 2012 [facility] 0.9% IV 100 mL IVPB, ONCALL, Start date: 04/19/12 17:00:00, Duration: 1 day, Stop date: 04/20/12 16:59:00 Lopressor 75 mg, 3 PO No Longer [place] tab, Route: Active 2012 [facility] PO, Drug form: TAB, BID, Dosing Weight 68.182, kg, Start date: 04/19/12 17:00:00, Stop date: 05/19/12 9:00:00 timolol 1 drp, BOTH EYES No Longer [facility] ophthalmic 0.5% Route: BOTH Active 2012 [facility] solution EYES, QPM, Drug form: SOLN, Start date: 04/19/12 17:00:00, Stop date: 05/18/12 17:00:00 brimonidine 1 drp, OPTH No Longer [facility] ophthalmic Route: Active 2012 [facility] 0.15% solution OPTH, BID, Drug form: SOLN, Start date: 04/19/12 17:00:00, Stop date: 05/19/12 9:00:00 baclofen 10 mg, 1 PO No Longer [place] tab, Route: Active 2012 [facility] PO, Drug form: TAB, BID, Dosing Weight 68.182, kg, Start date: 04/19/12 17:00:00, Duration: 30 day, Stop date: 05/19/12 9:00:00 aspirin 325 mg 325 mg, 1 PO No Longer Marcin tablet tab, Route: Active 2012 [facility] PO, Drug form: TAB, Daily, Start date: 04/19/12 16:44:00, Duration: 30 day, Stop date: 05/19/12 9:00:00 Ativan 1 mg, 0.5 INJ No Longer Mougouris 04/19/ mL, Route: Active 2012 [facility] INJ, Drug form: INJ, Q6H, Dosing Weight 68.182, kg, PRN as needed for anxiety, Start date: 04/19/12 12:50:00, Duration: 30 day, Stop date: 05/19/12 12:49:00 clonidine 0.1 mg, 1 PO No Longer [place] tab, Route: [facility] 2012 [facility] PO, Drug form: TAB, Q8H, Dosing Weight 68.182, kg, PRN Hypertensio n, Start date: 04/19/12 12:50:00, Duration: 30 day, Stop date: 05/19/12 12:49:00 Dextrose 50% 25 gm, 50 IVP No Longer Mougouris Syringe mL, Route: [facility] 2012 [facility] IVP, Drug Form: INJ, Dosing Weight 68.182, kg, PRN, PRN Blood Glucose Results, Start date: 04/19/12 12:49:00, Duration: 30 day, Stop date: 05/19/12 13:48:00 glucagon 1 mg, IM No Longer Mougouris Route: IM, [facility] 2012 [facility] Drug form: PDR/INJ, PRN, Dosing Weight 68.182, kg, PRN Blood Glucose Results, Start date: 04/19/12 12:49:00, Duration: 30 day, Stop date: 05/19/12 13:48:00 insulin aspart 1 unit, SUB-Q No Longer Mougouris 0.01 mL, [facility] 2012 [facility] Route: SUB-Q, Drug form: SOLN, TID-Before Meals, Dosing Weight 68.182, kg, PRN Blood Glucose Results, Start date: 04/19/12 12:49:00, Duration: 30 day, Stop date: 05/19/12 12:48:00 Symbicort 2 INHALATIO No Longer Mougouris 160/4.5 inhalation, N [facility] 2012 [facility] inhalation Route: aerosol with INHALATION, adapter Drug Form: AERO/A, Dosing Weight 68.182, kg, PRN, PRN Shortness of breath, Start date: 04/19/12 12:47:00, Duration: 30 day, Stop date: 05/19/12 13:46:00, sob aspirin 325 mg 325 mg, PO No Longer [place] tablet Route: PO, Active 2012 [facility] Drug form: TAB, ONCE, Dosing Weight 68.182, kg, Priority: STAT, Start date: 04/19/12 12:25:00, Stop date: 04/19/12 12:25:00 hydrALAZINE 20 mg, 1 IV No Longer [place] mL, Route: Active 2012 [facility] IV, Drug form: INJ, Q6H, Dosing Weight 68.182, kg, PRN Elevated BP, Start date: 04/19/12 6:07:00, Duration: 30 day, Stop date: 05/19/12 6:06:00, SBP >165 brimonidine 1 drp, OPT Active [facility] ophthalmic OPTH, BID, 2012 0.15% solution 5 ml, Substitute Allowed, SOLN latanoprost 1 drp, OPT Active [facility] ophthalmic OPTH, 2012 [facility] 0.005% solution Bedtime, 3 ml, Substitute Allowed, SOLN timolol 1 drp, OPT Active [facility] ophthalmic OPTH, QPM, 2012 [facility] long-acting, 5 ml, 0.5% solution Substitute Allowed, SOLN Symbicort 2 puff, INHALATIO Active [facility] 160/4.5 INHALATION, N 2012 inhalation PRN, PRN aerosol with for cough, adapter Substitutio n Allowed, Maintenance PRN for cough losartan 100 mg 100 mg, 1 PO Active [facility] oral tablet tab, PO, 2012 Daily, 30 tab, Substitutio n Allowed, TAB Metoprolol 50 mg, 1 PO No Longer [facility] Tartrate 50 mg tab, PO, Active 2012 oral tablet BID, Substitutio n Allowed glyBURIDE-metfo 2 tab, PO, PO Active rmin 5 mg-500 BID, 60 2012 mg oral tablet tab, Substitutio n Allowed, Maintenance , TAB baclofen 10 mg, PO, PO Active [facility] BID, 2012 Substitutio n Allowed Saline Flush 5 ml, IVP No Longer [facility] 0.9% Route: IVP, 2012 [facility] Drug Form: INJ, Dosing Weight 68.182, kg, PRN, PRN Line Flush, Start date: 04/19/12 0:44:00, Duration: 30 day, Stop date: 05/19/12 1:43:00 acetaminophen 650 mg, 2 PO No Longer Yadira tab, Route: 2012 [facility] PO, Drug form: TAB, Q4H, Dosing Weight 68.182, kg, PRN Pain/Fever, Start date: 04/19/12 0:44:00, Duration: 30 day, Stop date: 05/19/12 0:43:00 ondansetron 4 mg, 2 mL, IVP No Longer [facility] Route: IVP, 2012 [facility] Drug form: INJ, Q6H, Dosing Weight 68.182, kg, PRN Nausea & Vomiting, Start date: 04/19/12 0:44:00, Duration: 30 day, Stop date: 05/19/12 0:43:00 Sodium Chloride 1,000 mL, IV No Longer Marcin 0.9% IV 1,000 Rate: 40 2012 [facility] mL ml/hr, Infuse over: 25 hr, Route: IV, kg, Total Volume: 1,000, Start date: 04/19/12 0:44:00, Duration: 30 day, Stop date: 05/19/12 0:43:00 Benadryl 50 mg, IVP No Longer [facility] Route: IVP, [facility] 2012 [facility] ONCE, Dosing Weight 68.182, kg, Priority: STAT, Start date: 04/18/12 21:13:00, Stop date: 04/18/12 21:13:00 SoluMedrol 125 mg, IVP No Longer [facility] Route: IVP, [facility] 2012 [facility] ONCE, Dosing Weight 68.182, kg, Priority: STAT, Start date: 04/18/12 21:12:00, Stop date: 04/18/12 21:12:00 Saline Flush 5 mL, IVP No Longer [facility] 0.9% Route: IVP, 2012 [facility] Drug Form: INJ, Dosing Weight 68.182, kg, Q8H, PRN Line Flush, Start date: 04/18/12 21:05:00, Duration: 30 day, Stop date: 05/18/12 21:04:00, Administer at least once every 8 hoursAdmini ster at least once every 8 hours Allergies, Adverse Reactions, Alerts Substance Category Reaction Severity Reaction Status Date Comments Source type Reported iodine drug Allergy Active allergy [facility] Bactrim Assertion Drug Active allergy [facility] Immunizations Immunization Date Site Status Last Comments Source Given Updated pneumococcal Right completed [facility] 13-valent 7 deltoid vaccine influenza virus completed [facility] vaccine, 2 inactivated influenza virus completed [facility] vaccine, 2 inactivated Hx pneumococcal completed [facility] vaccine 2 Hx pneumococcal completed [facility] vaccine 2 Results Order Name Results Value Reference Date Interpretation Comments Source Range CHEM PANEL eGFR 86 06/13 Result Comment: The eGFR is calculated using the CKD-EPI formula. In most young, healthy individuals the eGFR will be >90 mL/ min/1.73m2. The eGFR declines with age. An eGFR of 60-89 may be normal in mL/min/1.7 some populations, particularly the elderly, for whom the CKD-EPI formula has not been extensively validated. Use of the eGFR is not recommended in the following populations: [facility] 3m2 Individuals with unstable creatinine concentrations, including patients and those with serious co-morbid conditions. Patients with extremes in muscle mass or diet. The data above are obtained from the National Kidney Disease Education Program (NKDEP) which additionally recommends that when the eGFR is used in patients with extremes of body mass index for purposes of drug dosing, the eGFR should be multiplied by the estimated BMI. CHEM PANEL Calcium Lvl 8.9 mg/dL 8.5 - 10.5 06/13 [facility] CHEM PANEL Total 6.2 g/dL 6.4 - 8.4 06/13 [facility] CHEM PANEL Bili Total 0.5 mg/dL 0.2 - 1.3 06/13 [facility] CHEM PANEL CO2 30 meq/L 24 - 32 06/13 [facility] CHEM PANEL ALT 18 unit/L 0 - 65 06/13 [facility] CHEM PANEL Albumin Lvl 2.9 g/dL 3.5 - 5.0 05 [facility] CHEM PANEL AST 15 unit/L 0 - 37 05 [facility] CHEM PANEL Alk Phos 71 unit/L 39 - 136 06/13 [facility] CHEM PANEL Chloride Lvl 100 meq/L 95 - 109 05 [facility] CHEM PANEL Sodium Lvl 140 meq/L 135 - 145 05 [facility] CHEM PANEL Creatinine 0.64 mg/dL 0.50 - 05 [facility] Lvl 1.40 [facility] CHEM PANEL BUN 23 mg/dL 7 - 22 06/13 [facility] CHEM PANEL Potassium 3.5 meq/L 3.5 - 5.1 05 Lvl /2016 [facility] CHEM PANEL Glucose Lvl 134 mg/dL 70 - 99 06/13 [facility] CHEM PANEL A/G Ratio 0.9 0.7 - 1.6 06/13 [facility] CHEM PANEL Globulin 3.3 g/dL 2.7 - 4.2 06/13 [facility] CHEM PANEL B/C Ratio 36 6 - 25 06/13 [facility] CHEM PANEL AGAP 13.5 meq/L 10.0 - 06/13 20.0 [facility] HEMATOLOGY MCHC 34.1 g/dL 32.0 - 06/13 36.0 [facility] HEMATOLOGY MPV 9.4 fL 7.4 - 10.4 06/13 [facility] HEMATOLOGY RDW 17.1 % 11.5 - 06/13 14.5 [facility] HEMATOLOGY MCH 26.8 pg 27.0 - 06/13 31.0 [facility] HEMATOLOGY Platelet 198 K/CMM 133 - 450 06/13 [facility] HEMATOLOGY WBC 9.9 K/CMM 3.7 - 10.4 05 [facility] HEMATOLOGY Hgb 8.2 g/dL 12.0 - 05 16.0 [facility] HEMATOLOGY RBC 3.05 M/CMM 4.20 - 06/13 5.40 [facility] HEMATOLOGY MCV 78.5 fL 80.0 - 05 98.0 [facility] HEMATOLOGY Hct 23.9 % 36.0 - 06/13 48.0 [facility] HEMATOLOGY Microcyte 1+ None Seen 06/13 [facility] *ABN* (06/13/16 6:25 AM) HEMATOLOGY Basophils # 0.1 K/CMM 0.0 - 0.2 06/13 [facility] HEMATOLOGY Eosinophils 0.2 K/CMM 0.0 - 0.5 06/13 [facility] HEMATOLOGY Monocytes # 0.7 K/CMM 0.0 - 0.8 06/13 [facility] HEMATOLOGY Lymphocytes 17.6 % 20.0 - 06/13 40.0 /2016 [facility] HEMATOLOGY Segs 73.1 % 45.0 - 06/13 75.0 /2016 [facility] HEMATOLOGY Basophils 0.5 % 0.0 - 1.0 06/13 [facility] HEMATOLOGY Eosinophils 2.2 % 0.0 - 4.0 06/13 [facility] HEMATOLOGY Monocytes 6.6 % 2.0 - 12.0 06/13 [facility] HEMATOLOGY Lymphocytes 1.7 K/CMM 1.0 - 5.5 06/13 [facility] HEMATOLOGY Segs-Bands # 7.2 K/CMM 1.5 - 8.1 06/13 [facility] Hgb 8.0 g/dL 12.0 - 06/12 16.0 [facility] Hct 24.0 % 36.0 - 06/12 48.0 [facility] BLOOD BANK RBC product Product available 1 06/10 Result Comment: 2016 06:42 [id number] RESULTS notified [facility] in [address] [place] [address] (06/10/16 6:30 AM) CHEM PANEL eGFR 85 06/10 Result Comment: The eGFR is calculated using the CKD-EPI formula. In most young, healthy individuals the eGFR will be >90 mL/ min/1.73m2. The eGFR declines with age. An eGFR of 60-89 may be normal in mL/min/1. some populations, particularly the elderly, for whom the CKD-EPI formula has not been extensively validated. Use of the eGFR is not recommended in the following populations: [facility] 3m2 Individuals with unstable creatinine concentrations, including patients and those with serious co-morbid conditions. Patients with extremes in muscle mass or diet. The data above are obtained from the National Kidney Disease Education Program (NKDEP) which additionally recommends that when the eGFR is used in patients with extremes of body mass index for purposes of drug dosing, the eGFR should be multiplied by the estimated BMI. CHEM PANEL Creatinine 0.66 mg/dL 0.50 - 06/10 Lvl 1.40 [facility] CHEM PANEL Potassium 3.9 meq/L 3.5 - 5.1 06/10 [facility] CHEM PANEL Sodium Lvl 143 meq/L 135 - 145 06/10 [facility] CHEM PANEL Chloride Lvl 109 meq/L 95 - 109 06/10 [facility] CHEM PANEL CO2 25 meq/L 24 - 32 06/10 [facility] CHEM PANEL AGAP 12.9 meq/L 10.0 - 06/10 20. [facility] CHEM PANEL Calcium Lvl 7.9 mg/dL 8.5 - 10.5 06/10 [facility] CHEM PANEL Glucose Lvl 143 mg/dL 70 - 99 06/10 [facility] CHEM PANEL BUN 19 mg/dL 7 - 22 06/10 [facility] CHEM PANEL Magnesium 2.1 mg/dL 1.8 - 2.4 06/10 [facility] CHEM PANEL Phosphorus 2.8 mg/dL 2.5 - 4.5 06/10 [facility] HEMATOLOGY Hgb 7.3 g/dL 12.0 - 06/10 16. [facility] HEMATOLOGY RBC 2.77 M/CMM 4.20 - 06/10 5.40 [facility] HEMATOLOGY WBC 8.1 K/CMM 3.7 - 10.4 06/10 [facility] HEMATOLOGY MPV 9.8 fL 7.4 - 10.4 06/10 [facility] HEMATOLOGY Platelet 138 K/CMM 133 - 450 06/10 [facility] HEMATOLOGY MCV 78.7 fL 80.0 - 06/10 98.0 [facility] HEMATOLOGY RDW 16.6 % 11.5 - 06/10 14. [facility] HEMATOLOGY MCHC 33.4 g/dL 32.0 - 06/10 36.0 [facility] HEMATOLOGY Hct 21.8 % 36.0 - 06/10 48.0 [facility] HEMATOLOGY MCH 26.3 pg 27.0 - 06/10 31.0 [facility] HEMATOLOGY Microcyte 1+ None Seen 06/10 [facility] *ABN* (06/10/16 4:06 AM) HEMATOLOGY Segs-Bands # 5.6 K/CMM 1.5 - 8.1 06/10 [facility] HEMATOLOGY Eosinophils 0.1 K/CMM 0.0 - 0.5 06/10 [facility] # /2017 [facility] HEMATOLOGY Monocytes # 0.5 K/CMM 0.0 - 0.8 06/10 [facility] HEMATOLOGY Basophils 0.3 % 0.0 - 1.0 06/10 [facility] HEMATOLOGY Lymphocytes 1.9 K/CMM 1.0 - 5.5 06/10 MH # /2017 [facility] HEMATOLOGY Eosinophils 0.9 % 0.0 - 4.0 06/10 [facility] HEMATOLOGY Monocytes 6.5 % 2.0 - 12.0 06/10 [facility] HEMATOLOGY Lymphocytes 23.3 % 20.0 - 06/10 MH 40.0 /2016 [facility] HEMATOLOGY Segs 69.0 % 45.0 - 06/10 75.0 /2016 [facility] CHEM PANEL eGFR 84 06/09 Result Comment: The eGFR is calculated using the CKD-EPI formula. In most young, healthy individuals the eGFR will be >90 mL/ min/1.73m2. The eGFR declines with age. An eGFR of 60-89 may be normal in mL/min/1.7 some populations, particularly the elderly, for whom the CKD-EPI formula has not been extensively validated. Use of the eGFR is not recommended in the following populations: [facility] 3m2 Individuals with unstable creatinine concentrations, including patients and those with serious co-morbid conditions. Patients with extremes in muscle mass or diet. The data above are obtained from the National Kidney Disease Education Program (NKDEP) which additionally recommends that when the eGFR is used in patients with extremes of body mass index for purposes of drug dosing, the eGFR should be multiplied by the estimated BMI. CHEM PANEL Creatinine 0.70 mg/dL 0.50 - 06/09 Lvl 1.40 [facility] CHEM PANEL Potassium 3.8 meq/L 3.5 - 5.1 06/09 Lvl [facility] CHEM PANEL Sodium Lvl 140 meq/L 135 - 145 06/09 [facility] CHEM PANEL Glucose Lvl 215 mg/dL 70 - 99 06/09 [facility] CHEM PANEL BUN 20 mg/dL 7 - 22 06/09 [facility] CHEM PANEL Calcium Lvl 7.6 mg/dL 8.5 - 10.5 06/09 [facility] CHEM PANEL Chloride Lvl 105 meq/L 95 - 109 06/09 [facility] CHEM PANEL AGAP 10.8 meq/L 10.0 - 06/09 MH 20.0 [facility] CHEM PANEL CO2 28 meq/L 24 - 32 06/09 /2016 [facility] HEMATOLOGY RBC 3.07 M/CMM 4.20 - 06/09 MH 5.40 [facility] HEMATOLOGY MCV 77.3 fL 80.0 - 06/09 MH 98.0 [facility] HEMATOLOGY WBC 9.5 K/CMM 3.7 - 10.4 06/09 [facility] HEMATOLOGY MCHC 33.5 g/dL 32.0 - 06/09 MH 36.0 [facility] HEMATOLOGY RDW 16.4 % 11.5 - 06/09 MH 14. [facility] HEMATOLOGY MCH 25.9 pg 27.0 - 06/09 MH 31.0 [facility] HEMATOLOGY Platelet 153 K/CMM 133 - 450 06/09 [facility] HEMATOLOGY MPV 9.1 fL 7.4 - 10.4 06/09 [facility] HEMATOLOGY Microcyte 1+ None Seen 06/09 [facility] *ABN* (06/09/16 4:37 AM) HEMATOLOGY Lymphocytes 13.1 % 20.0 - 06/09 MH 40.0 [facility] HEMATOLOGY Monocytes 7.3 % 2.0 - 12.0 06/09 [facility] HEMATOLOGY Segs-Bands # 7.6 K/CMM 1.5 - 8.1 06/09 [facility] HEMATOLOGY Basophils 0.2 % 0.0 - 1.0 06/09 [facility] HEMATOLOGY Segs 79.4 % 45.0 - 06/09 75.0 [facility] HEMATOLOGY Lymphocytes 1.3 K/CMM 1.0 - 5.5 06/09 MH # /2016 [facility] HEMATOLOGY Monocytes # 0.7 K/CMM 0.0 - 0.8 06/09 [facility] BACTERIAL MRSA by PCR Negative 06/08 - SEROLOGY /2016 [facility] (06/08/16 1:43 PM) BLOOD BANK Antibody Negative 06/08 RESULTS Scrn [facility] (06/08/16 7:38 AM) BLOOD BANK ABO/Rh O POS 06/08 RESULTS /2016 [facility] HEMATOLOGY INR 1.04 0.85 - 06/08 MH 1. [facility] HEMATOLOGY PT 13.8 s 12.0 - 06/08 14. [facility] HEMATOLOGY PTT 30.6 s 22.9 - 06/08 MH 35.8 /2016 [facility] HEMATOLOGY Eosinophils 0.2 K/CMM 0.0 - 0.5 06/08 # /2016 [facility] HEMATOLOGY Eosinophils 1.6 % 0.0 - 4.0 06/08 [facility] CHEM PANEL eGFR 62 05/26 Result Comment: The eGFR is calculated using the CKD-EPI formula. In most young, healthy individuals the eGFR will be >90 mL/ min/1.73m2. The eGFR declines with age. An eGFR of 60-89 may be normal in mL/min/1.7 /2017 some populations, particularly the elderly, for whom the CKD-EPI formula has not been extensively validated. Use of the eGFR is not recommended in the following populations: [facility] 3m2 Individuals with unstable creatinine concentrations, including patients and those with serious co-morbid conditions. Patients with extremes in muscle mass or diet. The data above are obtained from the National Kidney Disease Education Program (NKDEP) which additionally recommends that when the eGFR is used in patients with extremes of body mass index for purposes of drug dosing, the eGFR should be multiplied by the estimated BMI. CHEM PANEL Sodium Lvl 140 meq/L 135 - 145 05/26 [facility] CHEM PANEL Creatinine 0.90 mg/dL 0.50 - 05/26 Lvl 1.40 [facility] CHEM PANEL Chloride Lvl 102 meq/L 95 - 109 05/26 [facility] CHEM PANEL Potassium 3.6 meq/L 3.5 - 5.1 05/26 Lvl [facility] CHEM PANEL CO2 30 meq/L 24 - 32 05/26 [facility] CHEM PANEL Calcium Lvl 8.9 mg/dL 8.5 - 10.5 05/26 [facility] CHEM PANEL Glucose Lvl 185 mg/dL 70 - 99 05/26 [facility] CHEM PANEL BUN 20 mg/dL 7 - 22 05/26 [facility] CHEM PANEL AGAP 11.6 meq/L 10.0 - 05/26 20.0 [facility] HEMATOLOGY Microcyte 1+ None Seen 05/26 [facility] *ABN* (05/26/16 9:42 AM) HEMATOLOGY Monocytes # 0.5 K/CMM 0.0 - 0.8 05/26 [facility] HEMATOLOGY Eosinophils 0.2 K/CMM 0.0 - 0.5 05/26 # /2017 [facility] HEMATOLOGY Lymphocytes 1.6 K/CMM 1.0 - 5.5 05/26 MH # /2017 [facility] HEMATOLOGY Segs-Bands # 6.9 K/CMM 1.5 - 8.1 05/26 /2016 [facility] HEMATOLOGY Basophils 0.4 % 0.0 - 1.0 05/26 [facility] HEMATOLOGY Monocytes 4.9 % 2.0 - 12.0 05/26 [facility] HEMATOLOGY Eosinophils 1.8 % 0.0 - 4.0 05/26 /2016 [facility] HEMATOLOGY Lymphocytes 17.4 % 20.0 - 05/26 40.0 /2016 [facility] HEMATOLOGY Segs 75.5 % 45.0 - 05/26 75.0 /2016 [facility] HEMATOLOGY Platelet 169 K/CMM 133 - 450 05/26 [facility] HEMATOLOGY MCH 25.9 pg 27.0 - 05/26 31.0 /2016 [facility] HEMATOLOGY MPV 9.8 fL 7.4 - 10.4 05/26 [facility] HEMATOLOGY RDW 16.2 % 11.5 - 05/26 14.5 /2016 [facility] HEMATOLOGY MCHC 33.0 g/dL 32.0 - 05/26 36.0 /2016 [facility] HEMATOLOGY Hct 37.2 % 36.0 - 05/26 48.0 /2016 [facility] HEMATOLOGY MCV 78.3 fL 80.0 - 05/26 98.0 /2016 [facility] HEMATOLOGY Hgb 12.3 g/dL 12.0 - 05/26 16.0 /2016 [facility] HEMATOLOGY RBC 4.75 M/CMM 4.20 - 05/26 5.40 /2016 [facility] HEMATOLOGY WBC 9.2 K/CMM 3.7 - 10.4 05/26 [facility] HEMATOLOGY PT 13.8 s 12.0 - 05/26 14.7 [facility] HEMATOLOGY INR 1.04 0.85 - 05/26 1.17 [facility] HEMATOLOGY PTT 32.1 s 22.9 - 05/26 35.8 /2016 [facility] Chest 2 Chest 2 EXAM: Chest 2 views DX 05/26 - views DX views DX - [facility] DATE: 05/26/2016 8:49 AM CDT INDICATION: Coughing Read by: Chato Huff MD Dictated Date/time: 05/26/16 14:19 COMPARISON: 03/04/2013. Electronically Signed by: Chato Huff MD 05/26/16 14:20 FINAL REPORT IMPRESSION: Stable moderately enlarged cardiac silhouette. Postoperative median sternotomy. Atherosclerotic thoracic aorta. No focal consolidation, significant pleural effusion or pneumothorax. Moderate thoracic spondylosis. SL: [id number] BEDSIDE Gluc POC 186 mg/dL 70 - 99 04/26 HI 2Interpretive GLUCOSE [facility] Data: [facility] TESTING Upper Reportable Limit: 200 mg/dL. BEDSIDE Gluc POC 219 mg/dL 70 - 99 04/26 HI 3Interpretive GLUCOSE [facility] Data: [facility] TESTING Upper Reportable Limit: 200 mg/dL. BEDSIDE Gluc POC 201 mg/dL 70 - 99 04/26 HI [facility] TESTING Upper Reportable Limit: 200 mg/dL. BEDSIDE Comment1 Notify 04/26 NA GLUCOSE RN/MD [facility] TESTING BEDSIDE Comment1 Notify 04/26 NA GLUCOSE RN/MD [facility] TESTING BEDSIDE Comment1 Notify 04/25 NA GLUCOSE RN/MD /2012 [facility] TESTING CHEMISTRY Sodium Lvl 144 meq/L 135 - 145 04/25 Normal [facility] CHEMISTRY Chloride Lvl 105 meq/L 95 - 109 04/25 Normal [facility] CHEMISTRY Potassium 3.6 meq/L 3.5 - 5.1 04/25 Normal Lvl [facility] CHEMISTRY eGFR 96 04/25 NA 5Result Comment: The eGFR is calculated using the CKD-EPI formula. In most young, healthy individuals the eGFR will be > 90 mL/min/1.73m2. The eGFR declines with age. An eGFR of 60-89 may be normal in mL/min/1.7 /2013 some populations, particularly the elderly, for whom the CKD-EPI formula has not been extensively validated. Use of the eGFR is not recommended in the following populations: [facility] 3m2 Individuals with unstable creatinine concentrations, including patients and those with serious co-morbid conditions. Patients with extremes in muscle mass or diet. The data above are obtained from the National Kidney Disease Education Program (NKDEP) which additionally recommends that when the eGFR is used in patients with extremes of body mass index for purposes of drug dosing, the eGFR should be multiplied by the estimated BMI. CHEMISTRY Creatinine 0.5 mg/dL 0.5 - 1.4 04/25 Normal MH Lvl /2013 [facility] CHEMISTRY CO2 28 meq/L 24 - 32 / Normal MH /2012 [facility] CHEMISTRY Calcium Lvl 7.8 mg/dL 8.5 - 10.5 03/ LOW MH /2012 [facility] CHEMISTRY BUN 14 mg/dL 7 - 22 / Normal MH /2012 [facility] CHEMISTRY Glucose Lvl 118 mg/dL 70 - 99 03/ HI 8Interpretive Data: Adult reference range values reflect the clinical guidelines of the [place] [employer]. [facility] CHEMISTRY AGAP 14.6 meq/L 10.0 - 03 Normal MH 20.0 /2012 [facility] HEMATOLOGY Platelet 183 K/CMM 133 - 450 03/ Normal MH /2012 [facility] HEMATOLOGY MCHC 32.4 g/dL 32.0 - 03 Normal MH 36.0 /2012 [facility] HEMATOLOGY RDW 15.7 % 11.5 - 03/ HI MH 14.5 /2012 [facility] HEMATOLOGY MCH 26.8 pg 27.0 - 04/25 LOW MH 31.0 /2012 [facility] HEMATOLOGY MCV 82.8 fL 81.0 - 04/25 Normal MH 99.0 /2012 [facility] HEMATOLOGY MPV 9.9 fL 7.4 - 10.4 / Normal MH /2012 [facility] HEMATOLOGY Hct 29.4 % 36.0 - 04/25 LOW MH 48.0 /2012 [facility] HEMATOLOGY Hgb 9.5 g/dL 12.0 - 03 LOW MH 16.0 /2012 [facility] HEMATOLOGY RBC 3.55 M/CMM 4.20 - 03 LOW MH 5.40 /2012 [facility] HEMATOLOGY WBC 8.9 K/CMM 3.7 - 10.4 / Normal MH /2012 [facility] HEMATOLOGY Segs-Bands # 7.2 K/CMM 1.5 - 8.1 / Normal MH /2012 [facility] HEMATOLOGY Basophils 0.1 % 0.0 - 1.0 03/ Normal MH /2012 [facility] HEMATOLOGY Basophils # 0.0 K/CMM 0.0 - 0.2 / Normal MH /2012 [facility] HEMATOLOGY Eosinophils 0.4 K/CMM 0.0 - 0.5 / Normal MH # /2012 [facility] HEMATOLOGY Monocytes # 0.4 K/CMM 0.0 - 0.8 03/ Normal /2012 [facility] HEMATOLOGY Lymphocytes 0.8 K/CMM 1.0 - 5.5 / LOW MH # /2012 [facility] HEMATOLOGY Eosinophils 4.8 % 0.0 - 4.0 04/25 HI MH [facility] HEMATOLOGY Monocytes 4.8 % 2.0 - 12.0 04/25 Normal [facility] HEMATOLOGY Lymphocytes 8.9 % 20.0 - 03 LOW MH 40.0 /2012 [facility] HEMATOLOGY Segs 81.4 % 45.0 - 03 HI MH 75.0 [facility] CHEMISTRY Magnesium 2.1 mg/dL 1.8 - 2.4 04/24 Normal [place] CHEMISTRY Chloride Lvl 106 meq/L 95 - 109 04/24 Normal [place] CHEMISTRY Potassium 3.5 meq/L 3.5 - 5.1 04/24 Normal [facility] CHEMISTRY Sodium Lvl 144 meq/L 135 - 145 04/24 Normal [facility] CHEMISTRY Globulin 2.7 g/dL 2.0 - 4.0 04/24 Normal [facility] CHEMISTRY A/G Ratio 1.0 0.7 - 1.6 04/24 Normal [facility] CHEMISTRY Bili Total 0.9 mg/dL 0.2 - 1.3 04/24 Normal [facility] CHEMISTRY ALT 12 unit/L 0 - 65 04/24 Normal [facility] CHEMISTRY Alk Phos 60 unit/L 39 - 136 04/24 Normal [facility] CHEMISTRY Creatinine 0.5 mg/dL 0.5 - 1.4 04/24 Normal [facility] CHEMISTRY CO2 31 meq/L 24 - 32 04/24 Normal [facility] CHEMISTRY Glucose Lvl 93 mg/dL 70 - 99 04/24 Normal 9Interpretive Data: Adult reference range values reflect the clinical guidelines of the [place] [employer]. [facility] CHEMISTRY BUN 14 mg/dL 7 - 22 04/24 Normal [facility] CHEMISTRY AGAP 10.5 meq/L 10.0 - 03 Normal MH 20.0 [facility] CHEMISTRY Total 5.3 g/dL 6.4 - 8.4 04/24 LOW [facility] CHEMISTRY Albumin Lvl 2.6 g/dL 3.5 - 5.0 04/24 LOW [facility] CHEMISTRY Calcium Lvl 7.6 mg/dL 8.5 - 10.5 04/24 LOW [place] CHEMISTRY B/C Ratio 28 6 - 25 04/24 HI [facility] CHEMISTRY AST 9 unit/L 0 - 37 04/24 Normal [facility] CHEMISTRY eGFR 96 04/24 NA 6Result Comment: The eGFR is calculated using the CKD-EPI formula. In most young, healthy individuals the eGFR will be > 90 mL/min/1.73m2. The eGFR declines with age. An eGFR of 60-89 may be normal in mL/min/1.7 /2012 some populations, particularly the elderly, for whom the CKD-EPI formula has not been extensively validated. Use of the eGFR is not recommended in the following populations: [facility] 3m2 Individuals with unstable creatinine concentrations, including patients and those with serious co-morbid conditions. Patients with extremes in muscle mass or diet. The data above are obtained from the National Kidney Disease Education Program (NKDEP) which additionally recommends that when the eGFR is used in patients with extremes of body mass index for purposes of drug dosing, the eGFR should be multiplied by the estimated BMI. HEMATOLOGY Monocytes # 0.4 K/CMM 0.0 - 0.8 04/24 Normal [facility] HEMATOLOGY Eosinophils 0.3 K/CMM 0.0 - 0.5 04/24 Normal MH # /2012 [facility] HEMATOLOGY Basophils # 0.0 K/CMM 0.0 - 0.2 04/24 Normal [facility] HEMATOLOGY Eosinophils 3.3 % 0.0 - 4.0 04/24 Normal [facility] HEMATOLOGY Basophils 0.2 % 0.0 - 1.0 04/24 Normal [facility] HEMATOLOGY Segs-Bands # 7.4 K/CMM 1.5 - 8.1 04/24 Normal [facility] HEMATOLOGY Lymphocytes 0.9 K/CMM 1.0 - 5.5 04/24 LOW MH # /2013 [facility] HEMATOLOGY Monocytes 4.7 % 2.0 - 12.0 04/24 Normal [facility] HEMATOLOGY Lymphocytes 10.1 % 20.0 - 04/24 LOW MH 40.0 /2012 [facility] HEMATOLOGY Segs 81.7 % 45.0 - 03 HI MH 75.0 /2012 [facility] HEMATOLOGY MPV 9.8 fL 7.4 - 10.4 04/24 Normal /2012 [facility] HEMATOLOGY MCHC 32.4 g/dL 32.0 - 04/24 Normal MH 36.0 /2012 [facility] HEMATOLOGY RDW 15.8 % 11.5 - 03 HI MH 14.5 /2012 [facility] HEMATOLOGY Platelet 174 K/CMM 133 - 450 03/12 Normal [facility] HEMATOLOGY Hct 29.1 % 36.0 - 04/24 LOW 48.0 /2012 [facility] HEMATOLOGY RBC 3.53 M/CMM 4.20 - 04/24 LOW MH 5.40 /2012 [facility] HEMATOLOGY WBC 9.1 K/CMM 3.7 - 10.4 04/24 Normal [facility] HEMATOLOGY Hgb 9.4 g/dL 12.0 - 04/24 LOW MH 16.0 /2012 [facility] HEMATOLOGY MCH 26.7 pg 27.0 - 04/24 LOW MH 31.0 /2012 [facility] HEMATOLOGY MCV 82.4 fL 81.0 - 04/24 Normal 99.0 [facility] CHEMISTRY Magnesium 2.0 mg/dL 1.8 - 2.4 04/23 Normal Lvl /2012 [facility] CHEMISTRY A/G Ratio 1.0 0.7 - 1.6 04/23 Normal [facility] CHEMISTRY Globulin 2.8 g/dL 2.0 - 4.0 04/23 Normal [facility] CHEMISTRY B/C Ratio 26 6 - 25 04/23 HI MH [facility] CHEMISTRY AGAP 13.8 meq/L 10.0 - 04/23 Normal 20.0 [facility] CHEMISTRY ALT 16 unit/L 0 - 65 04/23 Normal [facility] CHEMISTRY Alk Phos 70 unit/L 39 - 136 04/23 Normal [facility] CHEMISTRY Total 5.5 g/dL 6.4 - 8.4 04/23 LOW Protein [facility] CHEMISTRY Albumin Lvl 2.7 g/dL 3.5 - 5.0 04/23 LOW [facility] CHEMISTRY Bili Total 0.5 mg/dL 0.2 - 1.3 04/23 Normal [facility] CHEMISTRY AST 10 unit/L 0 - 37 04/23 Normal [facility] CHEMISTRY eGFR 96 04/23 NA 7Result Comment: The eGFR is calculated using the CKD-EPI formula. In most young, healthy individuals the eGFR will be > 90 mL/min/1.73m2. The eGFR declines with age. An eGFR of 60-89 may be normal in mL/min/1.7 /2012 some populations, particularly the elderly, for whom the CKD-EPI formula has not been extensively validated. Use of the eGFR is not recommended in the following populations: [facility] 3m2 Individuals with unstable creatinine concentrations, including patients and those with serious co-morbid conditions. Patients with extremes in muscle mass or diet. The data above are obtained from the National Kidney Disease Education Program (NKDEP) which additionally recommends that when the eGFR is used in patients with extremes of body mass index for purposes of drug dosing, the eGFR should be multiplied by the estimated BMI. CHEMISTRY BUN 13 mg/dL 7 - 22 04/23 Normal [facility] CHEMISTRY Creatinine 0.5 mg/dL 0.5 - 1.4 04/23 Normal Lvl [facility] CHEMISTRY Sodium Lvl 146 meq/L 135 - 145 04/23 HI MH [facility] CHEMISTRY Potassium 3.8 meq/L 3.5 - 5.1 04/23 Normal Lvl /2012 [facility] CHEMISTRY Chloride Lvl 108 meq/L 95 - 109 04/23 Normal MH [facility] CHEMISTRY Glucose Lvl 114 mg/dL 70 - 99 04/23 HI 10Interpretive Data: Adult reference range values reflect the clinical guidelines of the [place] [employer]. [facility] CHEMISTRY Calcium Lvl 7.4 mg/dL 8.5 - 10.5 04/23 LOW MH [facility] CHEMISTRY CO2 28 meq/L 24 - 32 04/23 Normal MH /2012 [facility] HEMATOLOGY MPV 9.9 fL 7.4 - 10.4 04/23 Normal MH [facility] HEMATOLOGY Platelet 171 K/CMM 133 - 450 04/23 Normal MH [facility] HEMATOLOGY RDW 15.9 % 11.5 - 03 HI MH 14.5 [facility] HEMATOLOGY MCHC 32.4 g/dL 32.0 - 04/23 Normal MH 36.0 [facility] HEMATOLOGY Hct 30.6 % 36.0 - 03 LOW MH 48.0 /2012 [facility] HEMATOLOGY RBC 3.70 M/CMM 4.20 - 04/23 LOW MH 5.40 /2012 [facility] HEMATOLOGY WBC 11.2 K/CMM 3.7 - 10.4 04/23 HI MH /2012 [facility] HEMATOLOGY Hgb 9.9 g/dL 12.0 - 04/23 LOW MH 16.0 [facility] HEMATOLOGY MCV 82.7 fL 81.0 - 04/23 Normal MH 99.0 /2012 [facility] HEMATOLOGY MCH 26.8 pg 27.0 - 04/23 LOW MH 31.0 [facility] HEMATOLOGY Eosinophils 2.0 % 0.0 - 4.0 04/23 Normal MH /2012 [facility] HEMATOLOGY Monocytes 4.0 % 2.0 - 12.0 04/23 Normal [facility] HEMATOLOGY Basophils 0.1 % 0.0 - 1.0 04/23 Normal [facility] HEMATOLOGY Basophils # 0.0 K/CMM 0.0 - 0.2 04/23 Normal [facility] HEMATOLOGY Eosinophils 0.2 K/CMM 0.0 - 0.5 04/23 Normal # /2012 [facility] HEMATOLOGY Lymphocytes 1.4 K/CMM 1.0 - 5.5 04/23 Normal MH # /2012 [facility] HEMATOLOGY Segs-Bands # 9.1 K/CMM 1.5 - 8.1 04/23 HI MH /2012 [facility] HEMATOLOGY Monocytes # 0.5 K/CMM 0.0 - 0.8 04/23 Normal [facility] HEMATOLOGY Segs 81.5 % 45.0 - 04/23 HI 75.0 /2012 [facility] HEMATOLOGY Lymphocytes 12.4 % 20.0 - 04/23 LOW 40.0 [facility] Microbiolo Culture: 04/23 gy Urine [facility] CHEMISTRY Bili Total 0.4 mg/dL 0.2 - 1.3 04/22 Normal [facility] CHEMISTRY ALT 18 unit/L 0 - 65 04/22 Normal [facility] CHEMISTRY Alk Phos 62 unit/L 39 - 136 04/22 Normal [facility] CHEMISTRY Total 6.1 g/dL 6.4 - 8.4 04/22 LOW [facility] CHEMISTRY AST 14 unit/L 0 - 37 04/22 Normal [facility] CHEMISTRY Albumin Lvl 2.7 g/dL 3.5 - 5.0 04/22 LOW [facility] CHEMISTRY A/G Ratio 0.8 0.7 - 1.6 04/22 Normal [facility] CHEMISTRY Globulin 3.4 g/dL 2.0 - 4.0 04/22 Normal [facility] CHEMISTRY B/C Ratio 14 6 - 25 04/22 Normal [facility] URINALYSIS UA Sq Epi Occasional /LPF Few 04/21 NA [facility] *NA* (04/21/2012 12:27:00) URINALYSIS UA Leuk Est Moderate Negative 04/21 ABN [facility] *ABN* (04/21/2012 12:27:00) URINALYSIS UA WBC 6 /HPF 0 - 5 04/21 HI [facility] URINALYSIS UA RBC 34 /HPF 0 - 2 04/21 HI [facility] URINALYSIS UA CaOx Mey Occasional /HPF None Seen 04/21 [facility] *NA* (04/21/2012 12:27:00) URINALYSIS UA Mucus Few /LPF None Seen 04/21 [facility] *NA* (04/21/2012 12:27:00) URINALYSIS UA Bacteria Occasional /HPF None Seen 04/21 [facility] *NA* (04/21/2012 12:27:00) URINALYSIS UA Bili Negative Negative 04/21 [facility] *NA* (04/21/2012 12:27:00) URINALYSIS UA Blood Moderate Negative 04/21 [facility] *ABN* (04/21/2012 12:27:00) URINALYSIS UA Nitrite Negative Negative 04/21 Normal [facility] (04/21/2012 12:27:00) URINALYSIS UA Glucose Negative mg/dL Negative 04/21 [facility] *NA* (04/21/2012 12:27:00) URINALYSIS UA Ketones 20 mg/dL Negative 04/21 [facility] *ABN* (04/21/2012 12:27:00) URINALYSIS UA <=1.0 0.1 - 1.0 04/21 [facility] Urobilinogen mg/dL /2012 [facility]
*NA*< br/>(04/21 12:27:00) <sup> </sup> URINALYSIS UA Color Ltyellow 04/21 [facility] URINALYSIS UA Protein Negative mg/dL Negative 04/21 Normal [facility] (04/21/2012 12:27:00) URINALYSIS UA Turbidity Clear Clear 04/21 Normal [facility] (04/21/2012 12:27:00) URINALYSIS UA pH 5.0 5.0 - 8.0 04/21 Normal [facility] URINALYSIS UA Spec Grav 1.011 <=1.030 04/21 Normal [facility] CHEMISTRY Phosphorus 2.8 mg/dL 2.5 - 4.5 04/21 Normal [facility] CHEMISTRY Magnesium 1.8 mg/dL 1.8 - 2.4 04/21 Normal [facility] CHEMISTRY Phosphorus 2.9 mg/dL 2.5 - 4.5 04/21 Normal [facility] HEMATOLOGY Plt Morph Normal 04/21 Normal [facility] (04/20/2012 18:11:00) HEMATOLOGY RBC Morph Normal 04/21 Normal [facility] (04/20/2012 18:11:00) BACTERIAL MRSA by PCR Negative 1 04/20 Normal 1Interpretive Data: Interpretive Data: The [employer] MRSA assay is a qualitative test for the direct detection of nasal colonization with methicillin-resistant Staphylococcus aureus (MRSA) to aid in the prevention and control of MRSA infections in healthcare settings. A positive result does not indicate an infection or require treatment. A negative result does not exclude colonization or infection. [facility] (04/20/2012 16:00:00) The polymerase chain reaction (PCR) assay detects a proprietary sequence indicative of the integration of the SCCmec cassette into the Staphylococcus aureus chromosome, indicating the presence of MRSA D NA. The assay utilizes FDA cleared IVD reagents. Performance characteristics have been verified by the [facility] within the [facility]. The [facility] atory is authorized under the Clinical Laboratory Improvement Amendment of 1988 (CLIA-88) to perform high complexity testing. CHEMISTRY LDL 136 mg/dL 0 - 129 04/20 [facility] CHEMISTRY Chol 211 mg/dL 120 - 200 04/20 [facility] CHEMISTRY Trig 193 mg/dL 0 - 200 04/20 Normal [facility] CHEMISTRY HDL 36 mg/dL >=35 04/20 Normal [facility] CHEMISTRY CHD Risk 5.86 3.90 - 04/20 [facility] 5.80 /2012 [facility] CHEMISTRY TSH 0.631 0.360 - 04/19 Normal uIU/mL 3.740 /2012 [facility] CHEMISTRY Phosphorus 3.2 mg/dL 2.5 - 4.5 04/19 Normal [facility] HEMATOLOGY PTT 35.0 s 22.9 - 03 Normal 14Interpretiv 35.8 /2012 e Data: [facility] Heparin Therapeutic Range: 57 - 92 Seconds HEMATOLOGY PT 14.0 s 12.0 - 03 Normal 14.7 /2012 [facility] HEMATOLOGY INR 1.06 0.85 - 04/19 Normal 12Interpretive Data: RECOMMENDED RANGES FOR PROTIME INR: 1.17 2.0-3.0 for most medical and surgical thromboembolic states. [place] 2.5-3.5 for artificial heart valves and recurrent embolism. INR SHOULD BE USED ONLY FOR PATIENTS ON STABLE ANTICOAGULANT THERAPY. CHEMISTRY BNP 86 pg/mL <=100 04/19 Normal 11Interpretive Data: Elevated results are in line with increasing severity of congestive heart failure. Minor elevations between 100 and 300 [facility] may be seen with Myocardial Ischemia, Sodium retaining drugs, and compensated/treated heart failure. CHEMISTRY Total CK 130 unit/L 12 - 191 04/19 Normal [facility] CHEMISTRY CK MB 0.9 ng/mL 0.5 - 3.6 04/19 Normal [facility] CHEMISTRY Troponin-I null 0.00 - 04/19 Normal 0.40 /2012 [facility] CHEMISTRY CK MB Index 0.7 0.0 - 2.5 04/19 Normal [facility] HEMATOLOGY INR 0.95 0.85 - 04/19 Normal 13Interpretive Data: RECOMMENDED RANGES FOR PROTIME INR: 1.17 2.0-3.0 for most medical and surgical thromboembolic states. [facility] 2.5-3.5 for artificial heart valves and recurrent embolism. INR SHOULD BE USED ONLY FOR PATIENTS ON STABLE ANTICOAGULANT THERAPY. HEMATOLOGY PTT 34.0 s 22.9 - 04/19 Normal 15Interpretiv 35.8 /2012 e Data: [facility] Heparin Therapeutic Range: 57 - 92 Seconds HEMATOLOGY PT 12.9 s 12.0 - 04/19 Normal 14.7 [facility] HEMATOLOGY RBC Morph Normal 04/19 Normal [facility] (04/18/2012 21:05:00) HEMATOLOGY Plt Morph Normal 04/19 Normal [facility] (04/18/2012 21:05:00) URINALYSIS UA Nitrite Negative Negative 04/19 Normal [facility] (04/18/2012 21:05:00) URINALYSIS UA Blood Negative Negative 04/19 Normal [facility] (04/18/2012 21:05:00) URINALYSIS UA Bili Negative Negative 04/19 NA [facility] *NA* (04/18/2012 21:05:00) URINALYSIS UA <=1.0 0.1 - 1.0 04/19 [facility] Urobilinogen mg/dL /2012 [facility]
*NA*< br/>(04/18 21:05:00) <sup> </sup> URINALYSIS UA Color Colorless 04/19 NA [facility] URINALYSIS UA WBC 3 /HPF 0 - 5 04/19 Normal [facility] URINALYSIS UA Sq Epi Occasional /LPF Few 04/19 NA [facility] *NA* (04/18/2012 21:05:00) URINALYSIS UA Bacteria Occasional /HPF None Seen 04/19 NA [facility] *NA* (04/18/2012 21:05:00) URINALYSIS UA RBC null 0 - 2 04/19 Normal [facility] URINALYSIS UA pH 8.0 5.0 - 8.0 04/19 Normal [facility] URINALYSIS UA Leuk Est Small Negative 04/19 ABN [facility] *ABN* (04/18/2012 21:05:00) URINALYSIS UA Ketones Negative mg/dL Negative 04/19 [facility] *NA* (04/18/2012 21:05:00) URINALYSIS UA Glucose Negative mg/dL Negative 04/19 [facility] *NA* (04/18/2012 21:05:00) URINALYSIS UA Protein Negative mg/dL Negative 04/19 Normal [facility] (04/18/2012 21:05:00) URINALYSIS UA Turbidity Clear Clear 04/19 Normal [facility] (04/18/2012 21:05:00) URINALYSIS UA Spec Grav 1.003 <=1.030 04/19 Normal [facility] Microbiolo Culture: 04/19 [facility] Vital Signs Vital Sign Value Date Comments Source Heart Rate 78 06/14/2016 [facility] Respitory Rate 16 06/14/2016 [facility] Temperature Oral (F) 98.4 F 06/14/2016 [facility] Systolic (mm Hg) 144 06/14/2016 [facility] Diastolic (mm Hg) 84 06/14/2016 [facility] Systolic (mm Hg) 140 06/14/2016 [facility] Diastolic (mm Hg) 80 06/14/2016 [facility] Respitory Rate 16 06/14/2016 [facility] Heart Rate 78 06/14/2016 [facility] Temperature Oral (F) 98.8 F 06/14/2016 [facility] Systolic (mm Hg) 136 06/14/2016 [facility] Diastolic (mm Hg) 75 06/14/2016 [facility] Respitory Rate 16 06/14/2016 [facility] Heart Rate 78 06/14/2016 [facility] Temperature Oral (F) 98.2 F 06/14/2016 [facility] Height 152.4 cm 06/08/2016 [facility] Weight 66.818 06/08/2016 [facility] BMI Calculated 28.77 06/08/2016 [facility] Respitory Rate 15 06/03/2016 [facility] Systolic (mm Hg) 150 06/03/2016 [facility] Diastolic (mm Hg) 51 06/03/2016 [facility] Systolic (mm Hg) 163 06/03/2016 [facility] Diastolic (mm Hg) 54 06/03/2016 [facility] Systolic (mm Hg) 143 06/03/2016 [facility] Diastolic (mm Hg) 62 06/03/2016 [facility] Respitory Rate 14 06/03/2016 [facility] Respitory Rate 18 06/03/2016 [facility] Temperature Oral (F) 98.4 F 05/26/2016 [facility] Heart Rate 60 05/26/2016 [facility] Weight 68.636 05/26/2016 [facility] BMI Calculated 29.55 05/26/2016 [facility] Height 152.4 cm 05/26/2016 [facility] Systolic (mm Hg) 162 04/26/2012 [facility] Diastolic (mm Hg) 74 04/26/2012 [facility] Systolic (mm Hg) 183 04/26/2012 [facility] Diastolic (mm Hg) 72 04/26/2012 [facility] Temperature Oral (F) 97.1 F 04/26/2012 [facility] Diastolic (mm Hg) 78 04/26/2012 [facility] Systolic (mm Hg) 185 04/26/2012 [facility] Respitory Rate 18 04/26/2012 [facility] Heart Rate 72 04/26/2012 [facility] Respitory Rate 20 04/26/2012 [facility] Heart Rate 84 04/26/2012 [facility] Temperature Oral (F) 97.9 F 04/26/2012 [facility] Respitory Rate 16 04/26/2012 [facility] Heart Rate 59 04/26/2012 [facility] Temperature Oral (F) 98.3 F 04/26/2012 [facility] Weight 69.091 04/20/2012 [facility] Height 152.4 cm 04/19/2012 [facility] Weight 68.182 04/19/2012 [facility] Encounters Location Location Encounter Encounter Reason Attending ADM DC Status Source Details Type Number For Provider Date Date Visit Outpatient [id number] 433.10, LUIS 04/18 Active [facility] [place] [facility] Inpatient [id number] CAROTID KIP 04/19 04/26 Active [place] [facility] YADIRA /2012 [facility] Day Surgery [id number] Luis 06/03 06/03 Christopher Burch /2016 [facility] Inpatient [id number] Luis 06/08 06/14 Christopher Burch /2016 [facility] Preadmit [id number] 433.11/15 LUIS Active [facility] [address] [facility] Procedures Procedure Code Date Perfomer Comments Source Bypass<sup>1</sup> [id number] 2004 [facility] Carotid [id number] [facility] endarterectomy CEA - Carotid [id number] [facility] endarterectomy Placement of stent [id number] [facility] in cardiac conduit Stent placement [id number] [facility] Bypass [id number] [facility]
--- OUTSIDE RECORDS SUMMARY | 2017-12-28 12:57 | XMS REPORT | CCD ---
:1940 Author Organization [facility] Care Team Providers Name Role Phone Luis Burch Referring Provider Allergies, Adverse Reactions, Alerts Substance Reaction Status iodine Active Problem List Condition Effective Dates Status DM - Diabetes mellitus Resolved Hypercholesterolemia Resolved Hypertension Resolved Immunizations Vaccine Date Status Hx pneumococcal vaccine 10/15/2011 Auth (Verified) influenza virus vaccine, inactivated 01/14/2012 Auth (Verified)
--- OUTSIDE RECORDS SUMMARY | 2017-12-28 12:57 | XMS REPORT | CCD ---
:1940 Author Organization [facility] Care Team Providers Name Role Phone TerryPapo albert Consulting Provider Allergies, Adverse Reactions, Alerts Substance Reaction Status iodine Active Problem List Condition Effective Dates Status DM - Diabetes mellitus Resolved Hypercholesterolemia Resolved Hypertension Resolved Medications Medication Instructions Start Date End Date Status aspirin 325 mg tablet, 325 mg, 1 tab, Route: 04/21/2012 04/26/2012 Discontinued enteric coated PO, Drug form: ECTAB, QAM, Start date: 04/21/12 9:00:00, Duration: 30 day, Stop date: 05/20/12 9:00:00 rosuvastatin 10 mg oral 20 mg, 2 tab, PO, QPM, 04/26/2012 Ordered tablet 30 tab, Substitution Allowed, TAB aspirin 325 mg tablet 325 mg, Route: PO, 04/19/2012 04/19/2012 Completed Drug form: TAB, ONCE, Dosing Weight 68.182, kg, Priority: STAT, Start date: 04/19/12 12:25:00, Stop date: 04/19/12 12:25:00 isosorbide dinitrate 20 mg 20 mg, 1 tab, PO, BID, 04/26/2012 Ordered oral tablet 60 tab, Substitution Allowed, TAB diphenhydrAMINE 25 mg oral 25 mg, 1 tab, PO, TID, 04/26/2012 Ordered tablet PRN, 30 tab, Itching, Substitution Allowed, TAB Tylenol 650 mg, 1 supp, Route: 04/20/2012 04/26/2012 Discontinued ND, Drug form: SUPP, Q4H, PRN Fever, Start date: 04/20/12 15:36:00, Duration: 30 day, Stop date: 05/20/12 15:35:00 aspirin 325 mg tablet, 325 mg, 1 tab, PO, 04/26/2012 Ordered enteric coated QAM, 30 tab, Substitution Allowed, ECTAB acetaminophen-hydrocodone 1 tab, PO, Q4H, PRN, 04/26/2012 Ordered 325 mg-5 mg oral tablet 30 tab, Pain Score 1-3, Substitution Allowed, Maintenance, TAB vancomycin 1 gm, 200 mL, Route: 04/19/2012 04/21/2012 Completed IVPB, Drug form: INJ, ONCALL, Start date: 04/19/12 17:00:00, Duration: 1 day, Stop date: 04/20/12 16:59:00 Saline Flush 0.9% 5 mL, Route: IVP, Drug Form: INJ, Dosing Weight 68.182, kg, Q8H, PRN Line Flush, Start date: 04/18/12 21:05:00, Duration: 30 day, Stop date : 05/18/12 21:04:00, Administer at least once every 8 hours 04/18/20122012 Discontinued Administer at least once every 8 hours cefazolin + Sodium Chloride 1 gm, Route: IVPB, 04/19/2012 04/21/2012 Completed 0.9% IV 100 mL ONCALL, Start date: 04/19/12 17:00:00, Duration: 1 day, Stop date: 04/20/12 16:59:00 Ativan 1 mg, 0.5 mL, Route: 04/19/2012 04/26/2012 Discontinued INJ, Drug form: INJ, Q6H, Dosing Weight 68.182, kg, PRN as needed for anxiety, Start date: 04/19/12 12:50:00, Duration: 30 day, Stop date: 05/19/12 12:49:00 clonidine 0.1 mg, 1 tab, Route: 04/19/2012 04/26/2012 Discontinued PO, Drug form: TAB, Q8H, Dosing Weight 68.182, kg, PRN Hypertension, Start date: 04/19/12 12:50:00, Duration: 30 day, Stop date: 05/19/12 12:49:00 Benadryl 25 mg, 1 tab, Route: 04/24/2012 04/26/2012 Discontinued PO, Drug form: TAB, TID, Dosing Weight 69.091, kg, PRN Itching, Start date: 04/24/12 4:47:00, Duration: 30 day, Stop date: 05/24/12 4:46:00 atropine 0.5 mg, 5 mL, Route: 04/19/2012 04/26/2012 Discontinued IVP, Drug form: INJ, PRN, PRN Bradycardia, Start date: 04/19/12 17:18:00, Duration: 30 day, Stop date: 05/19/12 18:17:00 nitroglycerin 0.4 mg 0.4 mg, 1 tab, Route: 04/19/2012 04/26/2012 Discontinued sublingual tablet SL, Drug form: TAB, Q5Min, PRN Chest Pain, Start date: 04/19/12 17:18:00, Duration: 30 day, Stop date: 05/19/12 18:17:00 Dextrose 50% Syringe 25 gm, 50 mL, Route: 04/19/2012 04/26/2012 Discontinued IVP, Drug Form: INJ, Dosing Weight 68.182, kg, PRN, PRN Blood Glucose Results, Start date: 04/19/12 12:49:00, Duration: 30 day, Stop date: 05/19/12 13:48:00 glucagon 1 mg, Route: IM, Drug 04/19/2012 04/26/2012 Discontinued form: PDR/INJ, PRN, Dosing Weight 68.182, kg, PRN Blood Glucose Results, Start date: 04/19/12 12:49:00, Duration: 30 day, Stop date: 05/19/12 13:48:00 Dextrose 50% Syringe 12.5 gm, 25 mL, Route: 04/19/2012 04/26/2012 Discontinued IVP, Drug Form: INJ, Dosing Weight 68.182, kg, PRN, PRN Blood Glucose Results, Start date: 04/19/12 12:49:00, Duration: 30 day, Stop date: 05/19/12 13:48:00 insulin aspart 1 unit, 0.01 mL, 04/19/2012 04/26/2012 Discontinued Route: SUB-Q, Drug form: SOLN, TID-Before Meals, Dosing Weight 68.182, kg, PRN Blood Glucose Results, Start date: 04/19/12 12:49:00, Duration: 30 day, Stop date: 05/19/12 12:48:00 insulin aspart 2 unit, 0.02 mL, 04/19/2012 04/26/2012 Discontinued Route: SUB-Q, Drug form: SOLN, TID-Before Meals, Dosing Weight 68.182, kg, PRN Blood Glucose Results, Start date: 04/19/12 12:49:00, Duration: 30 day, Stop date: 05/19/12 12:48:00 insulin aspart 5 unit, 0.05 mL, 04/19/2012 04/26/2012 Discontinued Route: SUB-Q, Drug form: SOLN, TID-Before Meals, Dosing Weight 68.182, kg, PRN Blood Glucose Results, Start date: 04/19/12 12:49:00, Duration: 30 day, Stop date: 05/19/12 12:48:00 insulin aspart 4 unit, 0.04 mL, 04/19/2012 04/26/2012 Discontinued Route: SUB-Q, Drug form: SOLN, TID-Before Meals, Dosing Weight 68.182, kg, PRN Blood Glucose Results, Start date: 04/19/12 12:49:00, Duration: 30 day, Stop date: 05/19/12 12:48:00 insulin aspart 3 unit, 0.03 mL, 04/19/2012 04/26/2012 Discontinued Route: SUB-Q, Drug form: SOLN, TID-Before Meals, Dosing Weight 68.182, kg, PRN Blood Glucose Results, Start date: 04/19/12 12:49:00, Duration: 30 day, Stop date: 05/19/12 12:48:00 aspirin 325 mg tablet 325 mg, 1 tab, Route: 04/19/2012 04/20/2012 Discontinued PO, Drug form: TAB, Daily, Start date: 04/19/12 16:44:00, Duration: 30 day, Stop date: 05/19/12 9:00:00 Lactated Ringers Injection 1,000 mL, Rate: 25 04/20/2012 04/20/2012 Discontinued IV 1,000 mL ml/hr, Infuse over: 40 hr, Route: IV, kg, Total Volume: 1,000, Start date: 04/20/12 9:59:00, Duration: 1 day, Stop date: 04/21/12 9:58:00 heparin 5,000 unit, 1 mL, 04/19/2012 04/26/2012 Discontinued Route: SUB-Q, Drug form: INJ, Q12H, Dosing Weight 68.182, kg, Start date: 04/19/12 21:00:00, Duration: 30 day, Stop date: 05/19/12 9:00:00 glyBURIDE-metformin 5 mg-500 2 tab, PO, BID, 60 04/19/2012 Ordered mg oral tablet tab, Substitution Allowed, Maintenance, TAB Lopressor 75 mg, 3 tab, Route: 04/19/2012 04/26/2012 Discontinued PO, Drug form: TAB, BID, Dosing Weight 68.182, kg, Start date: 04/19/12 17:00:00, Stop date: 05/19/12 9:00:00 timolol ophthalmic 0.5% 1 drp, Route: BOTH 04/19/2012 04/26/2012 Discontinued solution EYES, QPM, Drug form: SOLN, Start date: 04/19/12 17:00:00, Stop date: 05/18/12 17:00:00 latanoprost ophthalmic 1 drp, Route: OPTH, 04/19/2012 04/26/2012 Discontinued 0.005% solution Bedtime, Drug form: SOLN, Start date: 04/19/12 21:00:00, Duration: 30 day, Stop date: 05/18/12 21:00:00 losartan 100 mg, 2 tab, Route: 04/20/2012 04/26/2012 Discontinued PO, Drug form: TAB, Daily, Dosing Weight 68.182, kg, Start date: 04/20/12 9:00:00, Duration: 30 day, Stop date: 05/19/12 9:00:00 Benadryl 50 mg, Route: IVP, 04/18/2012 04/18/2012 Completed ONCE, Dosing Weight 68.182, kg, Priority: STAT, Start date: 04/18/12 21:13:00, Stop date: 04/18/12 21:13:00 SoluMedrol 125 mg, Route: IVP, 04/18/2012 04/18/2012 Completed ONCE, Dosing Weight 68.182, kg, Priority: STAT, Start date: 04/18/12 21:12:00, Stop date: 04/18/12 21:12:00 Symbicort 160/4.5 inhalation 2 inhalation, Route: 04/19/2012 04/26/2012 Discontinued aerosol with adapter INHALATION, Drug Form: AERO/A, Dosing Weight 68.182, kg, PRN, PRN Shortness of breath, Start date: 04/19/12 12:47:00, Duration: 30 day, Stop date: 05/19/12 13:46:00, sob brimonidine ophthalmic 0.15% 1 drp, Route: OPTH, 04/19/2012 04/26/2012 Discontinued solution BID, Drug form: SOLN, Start date: 04/19/12 17:00:00, Stop date: 05/19/12 9:00:00 baclofen 10 mg, 1 tab, Route: 04/19/2012 04/26/2012 Discontinued PO, Drug form: TAB, BID, Dosing Weight 68.182, kg, Start date: 04/19/12 17:00:00, Duration: 30 day, Stop date: 05/19/12 9:00:00 methylPREDNISolone 20 mg, 0.5 mL, Route: 04/25/2012 04/25/2012 Completed IV, Drug form: INJ, ONCE, Start date: 04/25/12 20:20:00, Stop date: 04/25/12 20:20:00 baclofen 10 mg, PO, BID, 04/19/2012 Ordered Substitution Allowed simvastatin 10 mg, 1 tab, Route: 04/24/2012 04/25/2012 Discontinued PO, Drug form: TAB, Bedtime, Dosing Weight 69.091, kg, Start date: 04/24/12 21:00:00, Duration: 30 day, Stop date: 05/23/12 21:00:00 hydrALAZINE 20 mg, 1 mL, Route: 04/19/2012 04/20/2012 Discontinued IV, Drug form: INJ, Q6H, Dosing Weight 68.182, kg, PRN Elevated BP, Start date: 04/19/12 6:07:00, Duration: 30 day, Stop date: 05/19/12 6:06:00, SBP >165 morphine Sulfate 4 mg, 2 mL, Route: IV, 04/20/2012 04/26/2012 Discontinued Drug form: INJ, Q2H, PRN Pain Score 7-10, Start date: 04/20/12 15:27:00, Duration: 30 day, Stop date: 05/20/12 15:26:00 Tylenol 650 mg, 2 tab, Route: 04/20/2012 04/26/2012 Discontinued PO, Drug form: TAB, Q4H, PRN Fever, Start date: 04/20/12 15:35:00, Duration: 30 day, Stop date: 05/20/12 15:34:00 Zofran 4 mg, 2 mL, Route: 04/20/2012 04/26/2012 Discontinued IVP, Drug form: INJ, Q6H, PRN Nausea & Vomiting, Start date: 04/20/12 15:33:00, Duration: 30 day, Stop date: 05/20/12 15:32:00 niCARdipine IV, Start date: 04/20/2012 04/24/2012 Discontinued 04/20/12 17:35:00, Duration: 30, 200 ml, 69.091 hydrALAZINE 10 mg, 0.5 mL, Route: 04/20/2012 04/26/2012 Discontinued IV, Drug form: INJ, Q6H, PRN Other -See Comment, Start date: 04/20/12 15:19:00, Duration: 30 day, Stop date: 05/20/12 15:18:00 Geodon 10 mg, Route: IM, Drug 04/22/2012 04/26/2012 Discontinued form: PDR/INJ, Q8H, PRN Anxiety, Start date: 04/22/12 0:52:00, Duration: 30 day, Stop date: 05/22/12 0:51:00 famotidine 20 mg, 1 tab, Route: 04/21/2012 04/26/2012 Discontinued PO, Drug form: TAB, Daily, Dosing Weight 69.091, kg, Start date: 04/21/12 9:00:00, Duration: 30 day, Stop date: 05/20/12 9:00:00 morphine Sulfate 2 mg, 1 mL, Route: IV, 04/20/2012 04/26/2012 Discontinued Drug form: INJ, Q2H, PRN Pain Score 6-10, Start date: 04/20/12 15:24:00, Duration: 30 day, Stop date: 05/20/12 15:23:00 Saline Flush 0.9% 5 ml, Route: IVP, Drug 04/19/2012 04/26/2012 Discontinued Form: INJ, Dosing Weight 68.182, kg, PRN, PRN Line Flush, Start date: 04/19/12 0:44:00, Duration: 30 day, Stop date: 05/19/12 1:43:00 acetaminophen 650 mg, 2 tab, Route: 04/19/2012 04/26/2012 Discontinued PO, Drug form: TAB, Q4H, Dosing Weight 68.182, kg, PRN Pain/Fever, Start date: 04/19/12 0:44:00, Duration: 30 day, Stop date: 05/19/12 0:43:00 ondansetron 4 mg, 2 mL, Route: 04/19/2012 04/26/2012 Discontinued IVP, Drug form: INJ, Q6H, Dosing Weight 68.182, kg, PRN Nausea & Vomiting, Start date: 04/19/12 0:44:00, Duration: 30 day, Stop date: 05/19/12 0:43:00 Sodium Chloride 0.9% IV 1,000 mL, Rate: 40 04/19/2012 04/20/2012 Discontinued 1,000 mL ml/hr, Infuse over: 25 hr, Route: IV, kg, Total Volume: 1,000, Start date: 04/19/12 0:44:00, Duration: 30 day, Stop date: 05/19/12 0:43:00 isosorbide dinitrate 20 mg, 1 tab, Route: 04/26/2012 04/26/2012 Discontinued PO, Drug form: TAB, TID, Dosing Weight 69.091, kg, Start date: 04/26/12 13:00:00, Duration: 30 day, Stop date: 05/26/12 9:00:00 acetaminophen-hydrocodone 2 tab, Route: PO, Drug 04/20/2012 04/26/2012 Discontinued 325 mg-5 mg oral tablet Form: TAB, Q4H, PRN Pain Score 4-6, Start date: 04/20/12 15:24:00, Duration: 30 day, Stop date: 05/20/12 15:23:00 1/2 NS 1,000 mL 1,000 mL, Rate: 50 04/22/2012 04/24/2012 Discontinued ml/hr, Infuse over: 20 hr, Route: IV, kg, Total Volume: 1,000, Start date: 04/22/12 19:46:00, Duration: 30 day, Stop date: 05/22/12 19:45:00 acetaminophen-hydrocodone 1 tab, Route: PO, Drug 04/20/2012 04/26/2012 Discontinued 325 mg-5 mg oral tablet Form: TAB, Q4H, PRN Pain Score 1-3, Start date: 04/20/12 15:23:00, Duration: 30 day, Stop date: 05/20/12 15:22:00 potassium chloride 20 mEq, 100 mL, Route: 04/22/2012 04/22/2012 Completed IVPB, Drug form: INJ, Q2H, Start date: 04/22/12 10:00:00, Duration: 2 doses or times, Stop date: 04/22/12 12:00:00 brimonidine ophthalmic 0.15% 1 drp, OPTH, BID, 5 04/19/2012 Ordered solution ml, Substitute Allowed, SOLN Sodium Chloride 0.9% IV 1,000 mL, Rate: 70 04/20/2012 04/22/2012 Discontinued 1,000 mL ml/hr, Infuse over: 14.3 hr, Route: IV, kg, Total Volume: 1,000, Start date: 04/20/12 15:38:00, Stop date: 05/20/12 15:37:00 latanoprost ophthalmic 1 drp, OPTH, Bedtime, 04/19/2012 Ordered 0.005% solution 3 ml, Substitute Allowed, SOLN Robitussin 100 mg/5 mL oral 200 mg, 10 mL, Route: 04/22/2012 04/26/2012 Discontinued liquid PO, Drug form: LIQ, Q4H, Dosing Weight 69.091, kg, Start date: 04/22/12 14:24:00, Duration: 30 day, Stop date: 05/22/12 12:00:00 timolol ophthalmic 1 drp, OPTH, QPM, 5 04/19/2012 Ordered long-acting, 0.5% solution ml, Substitute Allowed, SOLN losartan 50 mg oral tablet 100 mg, 2 tab, PO, 04/26/2012 Ordered Daily, 30 tab, Substitution Allowed, TAB Symbicort 160/4.5 inhalation 2 puff, INHALATION, PRN, PRN for cough, Substitution Allowed, Maintenance 04/19/2012 Ordered aerosol with adapter PRN for cough losartan 100 mg oral tablet 100 mg, 1 tab, PO, 04/19/2012 Ordered Daily, 30 tab, Substitution Allowed, TAB metoprolol 50 mg oral tablet 75 mg, 1.5 tab, PO, 04/26/2012 Ordered BID, 30 tab, Substitution Allowed, TAB isosorbide dinitrate 20 mg, 1 tab, Route: 04/25/2012 04/26/2012 Discontinued PO, Drug form: TAB, BID, Dosing Weight 69.091, kg, Start date: 04/25/12 21:00:00, Duration: 30 day, Stop date: 05/25/12 17:00:00 Crestor 20 mg, 2 tab, Route: 04/25/2012 04/26/2012 Discontinued PO, Drug form: TAB, QPM, Dosing Weight 69.091, kg, Start date: 04/25/12 21:00:00, Duration: 30 day, Stop date: 05/25/12 17:00:00 Metoprolol Tartrate 50 mg 50 mg, 1 tab, PO, BID, 04/19/2012 04/26/2012 Discontinued oral tablet Substitution Allowed Immunizations Vaccine Date Status Hx pneumococcal vaccine 10/15/2011 Auth (Verified) influenza virus vaccine, inactivated 01/14/2012 Auth (Verified) Vital Signs Most recent to oldest 1 2 3 [Reference Range]: Height 152.4 cm (04/18/2012 19:59:00) Temperature Oral 97.1 DegF 97.9 DegF 98.3 DegF [96.4-99.1 DegF] (04/26/2012 12:00:00) (04/26/2012 08:00:00) (04/26/2012 04: 16:00) Systolic Blood Pressure 162 mmHg 1 183 mmHg 185 mmHg [90-140 mmHg] *HI* *HI* *HI* (04/26/2012 14:50:00) (04/26/2012 12:15:00) (04/26/2012 12:00:00) Diastolic Blood Pressure 74 mmHg 2 72 mmHg 78 mmHg [60-90 mmHg] (04/26/2012 14:50:00) (04/26/2012 12:15:00) (04/26/2012 12:00: 00) Respiratory Rate [14-20 18 BRMIN 20 BRMIN 16 BRMIN BRMIN] (04/26/2012 12:00:00) (04/26/2012 08:00:00) (04/26/2012 04:16:00) Peripheral Pulse Rate 72 bpm 84 bpm 59 bpm [60-100 bpm] (04/26/2012 12:00:00) (04/26/2012 08:00:00) *LOW* (04/26/2012 04:16:00) Weight 69.091 kg 68.182 kg (04/19/2012 23:54:00) (04/18/2012 19:59:00) 1Result Comment: [id number] Comment: manual Results BACTERIAL - SEROLOGY Most recent to oldest [Reference Range]: 1 2 3 MRSA by PCR Negative 1 (04/20/2012 16:00:00) 1Interpretive Data: Interpretive Data: The [employer] Light[employer] MRSA assay is a qualitative test for thedirect detection of nasal colonization with methicillin- resistant Staphylococcus aureus (MRSA) to aid in the prevention and control of MRSA infections in healthcare settings. A positive result does notindicate an infection or require treatment. A negative result does not exclude colonization or infection. The polymerase chain reaction (PCR) assay detects a proprietary sequence indicative of the integration of the SCCmec cassette into the Staphylococcus aureus chromosome, indicating the presence of MRSA DNA. The assay utilizes FDA cleared IVD reagents. Performance characteristics have been verified by the [facility] within the [facility] The [facility] is authorized under the Clinical Laboratory Improvement Amendment of 1988 (CLIA-88) to performhigh complexity testing.BEDSIDE GLUCOSE TESTING Most recent to oldest 1 2 3 [Reference Range]: Gluc POC Lifscn [70-99 186 mg/dL 2 219 mg/dL 3 201 mg/dL 4 mg/dL] *HI* *HI* *HI* (04/26/2012 15:21:00) (04/26/2012 11:28:00) (04/26/2012 06:13:00) Comment1 Notify RN/MD Notify RN/MD Notify RN/MD *NA* *NA* *NA* (04/26/2012 06:13:00) (04/25/2012 21:20:00) (04/25/2012 15:55:00) 2Interpretive Data: Upper Reportable Limit: 200 mg/dL.3Interpretive Data: Upper Reportable Limit: 200 mg/dL.4Interpretive Data: Upper Reportable Limit: 200 mg/dL.URINALYSIS Most recent to oldest [Reference 1 2 3 Range]: UA Turbidity [Clear] Clear Clear (04/21/2012 12:27:00) (04/18/2012 21:05:00) UA Color Ltyellow Colorless *NA* *NA* (04/21/2012 12:27:00) (04/18/2012 21:05:00) UA pH [5.0-8.0] 5.0 8.0 (04/21/2012 12:27:00) (04/18/2012 21:05:00) UA Spec Grav [<=1.030] 1.011 1.003 (04/21/2012 12:27:00) (04/18/2012 21:05:00) UA Glucose [Negative mg/dL] Negative mg/dL Negative mg/dL *NA* *NA* (04/21/2012 12:27:00) (04/18/2012 21:05:00) UA Blood [Negative] Moderate Negative *ABN* (04/18/2012 21:05:00) (04/21/2012 12:27:00) UA Ketones [Negative mg/dL] 20 mg/dL Negative mg/dL *ABN* *NA* (04/21/2012 12:27:00) (04/18/2012 21:05:00) UA Protein [Negative mg/dL] Negative mg/dL Negative mg/dL (04/21/2012 12:27:00) (04/18/2012 21:05:00) UA Urobilinogen [0.1-1.0 mg/dL] <=1.0 mg/dL <=1.0 mg/dL *NA* *NA* (04/21/2012 12:27:00) (04/18/2012 21:05:00) UA Bili [Negative] Negative Negative *NA* *NA* (04/21/2012 12:27:00) (04/18/2012 21:05:00) UA Leuk Est [Negative] Moderate Small *ABN* *ABN* (04/21/2012 12:27:00) (04/18/2012 21:05:00) UA Nitrite [Negative] Negative Negative (04/21/2012 12:27:00) (04/18/2012 21:05:00) UA WBC [0-5 /HPF] 6 /HPF 3 /HPF *HI* (04/18/2012 21:05:00) (04/21/2012 12:27:00) UA RBC [0-2 /HPF] 34 /HPF <1 /HPF *HI* (04/18/2012 21:05:00) (04/21/2012 12:27:00) UA Bacteria [None Seen /HPF] Occasional /HPF Occasional /HPF *NA* *NA* (04/21/2012 12:27:00) (04/18/2012 21:05:00) UA Sq Epi [Few /LPF] Occasional /LPF Occasional /LPF *NA* *NA* (04/21/2012 12:27:00) (04/18/2012 21:05:00) UA CaOx Mey [None Seen /HPF] Occasional /HPF *NA* (04/21/2012 12:27:00) UA Mucus [None Seen /LPF] Few /LPF *NA* (04/21/2012 12:27:00) CHEMISTRY Most recent to oldest 1 2 3 [Reference Range]: Sodium Lvl [135-145 mEq/L] 144 mEq/L 144 mEq/L 146 mEq/L (04/25/2012 05:31:00) (04/24/2012 03:47:00) *HI* (04/23/2012 05:08:00) Potassium Lvl [3.5-5.1 3.6 mEq/L 3.5 mEq/L 3.8 mEq/L mEq/L] (04/25/2012 05:31:00) (04/24/2012 03:47:00) (04/23/2012 05:08:00) Chloride Lvl [95-109 mEq/L] 105 mEq/L 106 mEq/L 108 mEq/L (04/25/2012 05:31:00) (04/24/2012 03:47:00) (04/23/2012 05:08:00) CO2 [24-32 mEq/L] 28 mEq/L 31 mEq/L 28 mEq/L (04/25/2012 05:31:00) (04/24/2012 03:47:00) (04/23/2012 05:08:00) AGAP [10.0-20.0 mEq/L] 14.6 mEq/L 10.5 mEq/L 13.8 mEq/L (04/25/2012 05:31:00) (04/24/2012 03:47:00) (04/23/2012 05:08:00) Creatinine Lvl [0.5-1.4 0.5 mg/dL 0.5 mg/dL 0.5 mg/dL mg/dL] (04/25/2012 05:31:00) (04/24/2012 03:47:00) (04/23/2012 05:08:00) eGFR 96 mL/min/1.73m2 5 96 mL/min/1.73m2 6 96 mL/min/1.73m2 7 *NA* *NA* *NA* (04/25/2012 05:31:00) (04/24/2012 03:47:00) (04/23/2012 05:08:00) BUN [7-22 mg/dL] 14 mg/dL 14 mg/dL 13 mg/dL (04/25/2012 05:31:00) (04/24/2012 03:47:00) (04/23/2012 05:08:00) B/C Ratio [6-25] 28 26 14 *HI* *HI* (04/22/2012 05:40:00) (04/24/2012 03:47:00) (04/23/2012 05:08:00) Glucose Lvl [70-99 mg/dL] 118 mg/dL 8 93 mg/dL 9 114 mg/dL 10 *HI* (04/24/2012 03:47:00) *HI* (04/25/2012 05:31:00) (04/23/2012 05:08:00) Total Protein [6.4-8.4 5.3 g/dL 5.5 g/dL 6.1 g/dL g/dL] *LOW* *LOW* *LOW* (04/24/2012 03:47:00) (04/23/2012 05:08:00) (04/22/2012 05:40:00) Albumin Lvl [3.5-5.0 g/dL] 2.6 g/dL 2.7 g/dL 2.7 g/dL *LOW* *LOW* *LOW* (04/24/2012 03:47:00) (04/23/2012 05:08:00) (04/22/2012 05:40:00) Globulin [2.0-4.0 g/dL] 2.7 g/dL 2.8 g/dL 3.4 g/dL (04/24/2012 03:47:00) (04/23/2012 05:08:00) (04/22/2012 05:40:00) A/G Ratio [0.7-1.6] 1.0 1.0 0.8 (04/24/2012 03:47:00) (04/23/2012 05:08:00) (04/22/2012 05:40:00) Calcium Lvl [8.5-10.5 7.8 mg/dL 7.6 mg/dL 7.4 mg/dL mg/dL] *LOW* *LOW* *LOW* (04/25/2012 05:31:00) (04/24/2012 03:47:00) (04/23/2012 05:08:00) Phosphorus [2.5-4.5 mg/dL] 2.8 mg/dL 2.9 mg/dL 3.2 mg/dL (04/21/2012 03:55:00) (04/20/2012 18:11:00) (04/19/2012 04:45:00) Magnesium Lvl [1.8-2.4 2.1 mg/dL 2.0 mg/dL 1.8 mg/dL mg/dL] (04/24/2012 03:47:00) (04/23/2012 05:08:00) (04/21/2012 03:55:00) ALT [0-65 unit/L] 12 unit/L 16 unit/L 18 unit/L (04/24/2012 03:47:00) (04/23/2012 05:08:00) (04/22/2012 05:40:00) AST [0-37 unit/L] 9 unit/L 10 unit/L 14 unit/L (04/24/2012 03:47:00) (04/23/2012 05:08:00) (04/22/2012 05:40:00) Alk Phos [39-136 unit/L] 60 unit/L 70 unit/L 62 unit/L (04/24/2012 03:47:00) (04/23/2012 05:08:00) (04/22/2012 05:40:00) Bili Total [0.2-1.3 mg/dL] 0.9 mg/dL 0.5 mg/dL 0.4 mg/dL (04/24/2012 03:47:00) (04/23/2012 05:08:00) (04/22/2012 05:40:00) Total CK [12-191 unit/L] 130 unit/L (04/18/2012 21:05:00) CK MB [0.5-3.6 ng/mL] 0.9 ng/mL (04/18/2012 21:05:00) CK MB Index [0.0-2.5] 0.7 (04/18/2012 21:05:00) Troponin-I [0.00-0.40 <0.02 ng/mL ng/mL] (04/18/2012 21:05:00) BNP [<=100 pg/mL] 86 pg/mL 11 (04/18/2012 21:05:00) CHD Risk [3.90-5.80] 5.86 *HI* (04/20/2012 04:47:00) Chol [120-200 mg/dL] 211 mg/dL *HI* (04/20/2012 04:47:00) Trig [0-200 mg/dL] 193 mg/dL (04/20/2012 04:47:00) HDL [>=35 mg/dL] 36 mg/dL (04/20/2012 04:47:00) LDL [0-129 mg/dL] 136 mg/dL *HI* (04/20/2012 04:47:00) TSH [0.360-3.740 uIU/mL] 0.631 uIU/mL (04/19/2012 04:45:00) 5Result Comment: The eGFR is calculated using the CKD-EPI formula. In most young , healthy individualsthe eGFR will be >90 mL/min/1.73m2. The eGFR declines with age. An eGFR of 60-89 may be normal in some populations, particularly the elderly, for whom the CKD-EPI formula has not been extensively validated. Use of the eGFR is not recommended in the following populations: Individuals with unstable creatinine concentrations, including patients and those with serious co-morbid conditions. Patients with extremes in muscle mass or diet. The data above are obtained from the [employer] ( [employer]) which additionally recommends that when the eGFR is used in patients with extremes of body mass index for purposesof drug dosing, the eGFR should be multiplied by the estimated BMI.6Result Comment: The eGFR is calculated using the CKD-EPI formula. In most young, healthy individualsthe eGFR will be >90 mL/ min/1.73m2. The eGFR declines with age. An eGFR of 60-89 may be normal in some populations, particularly the elderly, for whom the CKD-EPI formula has not been extensively validated. Use of the eGFR is not recommended in the following populations: Individuals with unstable creatinine concentrations, including patients and those with serious co-morbid conditions. Patients with extremes in muscle mass or diet. The data above are obtained from the [employer] ( [employer]) which additionally recommends that when the eGFR is used in patients with extremes of body mass index for purposesof drug dosing, the eGFR should be multiplied by the estimated BMI.7Result Comment: The eGFR is calculated using the CKD-EPI formula. In most young, healthy individualsthe eGFR will be >90 mL/ min/1.73m2. The eGFR declines with age. An eGFR of 60-89 may be normal in some populations, particularly the elderly, for whom the CKD-EPI formula has not been extensively validated. Use of the eGFR is not recommended in the following populations: Individuals with unstable creatinine concentrations, including patients and those with serious co-morbid conditions. Patients with extremes in muscle mass or diet. The data above are obtained from the [employer] ( [employer]) which additionally recommends that when the eGFR is used in patients with extremes of body mass index for purposesof drug dosing, the eGFR should be multiplied by the estimated BMI.8Interpretive Data: Adult reference range values reflect the clinical guidelines of the [employer] [place] [employer].9Interpretive Data: Adult reference range values reflect the clinical guidelines of the [employer] [place] [employer].10Interpretive Data: Adult reference range values reflect the clinical guidelines of the [employer] [place] [employer].11Interpretive Data: Elevated results are in line with increasing severity of congestive heart failure. Minor elevations between 100 and 300 may be seen with Myocardial Ischemia, Sodium retaining drugs, and compensated/treated heart failure.HEMATOLOGY Most recent to oldest 1 2 3 [Reference Range]: WBC [3.7-10.4 K/CMM] 8.9 K/CMM 9.1 K/CMM 11.2 K/CMM (04/25/2012 05:31:00) (04/24/2012 03:47:00) *HI* (04/23/2012 05:08:00) RBC [4.20-5.40 M/CMM] 3.55 M/CMM 3.53 M/CMM 3.70 M/CMM *LOW* *LOW* *LOW* (04/25/2012 05:31:00) (04/24/2012 03:47:00) (04/23/2012 05:08:00) Hgb [12.0-16.0 g/dL] 9.5 g/dL 9.4 g/dL 9.9 g/dL *LOW* *LOW* *LOW* (04/25/2012 05:31:00) (04/24/2012 03:47:00) (04/23/2012 05:08:00) Hct [36.0-48.0 %] 29.4 % 29.1 % 30.6 % *LOW* *LOW* *LOW* (04/25/2012 05:31:00) (04/24/2012 03:47:00) (04/23/2012 05:08:00) MCV [81.0-99.0 fL] 82.8 fL 82.4 fL 82.7 fL (04/25/2012 05:31:00) (04/24/2012 03:47:00) (04/23/2012 05:08:00) MCH [27.0-31.0 pg] 26.8 pg 26.7 pg 26.8 pg *LOW* *LOW* *LOW* (04/25/2012 05:31:00) (04/24/2012 03:47:00) (04/23/2012 05:08:00) MCHC [32.0-36.0 g/dL] 32.4 g/dL 32.4 g/dL 32.4 g/dL (04/25/2012 05:31:00) (04/24/2012 03:47:00) (04/23/2012 05:08:00) RDW [11.5-14.5 %] 15.7 % 15.8 % 15.9 % *HI* *HI* *HI* (04/25/2012 05:31:00) (04/24/2012 03:47:00) (04/23/2012 05:08:00) Platelet [133-450 K/CMM] 183 K/CMM 174 K/CMM 171 K/CMM (04/25/2012 05:31:00) (04/24/2012 03:47:00) (04/23/2012 05:08:00) MPV [7.4-10.4 fL] 9.9 fL 9.8 fL 9.9 fL (04/25/2012 05:31:00) (04/24/2012 03:47:00) (04/23/2012 05:08:00) Segs [45.0-75.0 %] 81.4 % 81.7 % 81.5 % *HI* *HI* *HI* (04/25/2012 05:31:00) (04/24/2012 03:47:00) (04/23/2012 05:08:00) Lymphocytes [20.0-40.0 %] 8.9 % 10.1 % 12.4 % *LOW* *LOW* *LOW* (04/25/2012 05:31:00) (04/24/2012 03:47:00) (04/23/2012 05:08:00) Monocytes [2.0-12.0 %] 4.8 % 4.7 % 4.0 % (04/25/2012 05:31:00) (04/24/2012 03:47:00) (04/23/2012 05:08:00) Eosinophils [0.0-4.0 %] 4.8 % 3.3 % 2.0 % *HI* (04/24/2012 03:47:00) (04/23/2012 05:08:00) (04/25/2012 05:31:00) Basophils [0.0-1.0 %] 0.1 % 0.2 % 0.1 % (04/25/2012 05:31:00) (04/24/2012 03:47:00) (04/23/2012 05:08:00) Segs-Bands # [1.5-8.1 7.2 K/CMM 7.4 K/CMM 9.1 K/CMM K/CMM] (04/25/2012 05:31:00) (04/24/2012 03:47:00) *HI* (04/23/2012 05:08:00) Lymphocytes # [1.0-5.5 0.8 K/CMM 0.9 K/CMM 1.4 K/CMM K/CMM] *LOW* *LOW* (04/23/2012 05:08:00) (04/25/2012 05:31:00) (04/24/2012 03:47:00) Monocytes # [0.0-0.8 0.4 K/CMM 0.4 K/CMM 0.5 K/CMM K/CMM] (04/25/2012 05:31:00) (04/24/2012 03:47:00) (04/23/2012 05:08:00) Eosinophils # [0.0-0.5 0.4 K/CMM 0.3 K/CMM 0.2 K/CMM K/CMM] (04/25/2012 05:31:00) (04/24/2012 03:47:00) (04/23/2012 05:08:00) Basophils # [0.0-0.2 0.0 K/CMM 0.0 K/CMM 0.0 K/CMM K/CMM] (04/25/2012 05:31:00) (04/24/2012 03:47:00) (04/23/2012 05:08:00) RBC Morph Normal Normal (04/20/2012 18:11:00) (04/18/2012 21:05:00) Plt Morph Normal Normal (04/20/2012 18:11:00) (04/18/2012 21:05:00) PT [12.0-14.7 seconds] 14.0 seconds 12.9 seconds (04/19/2012 04:45:00) (04/18/2012 21:05:00) INR [0.85-1.17] 1.06 12 0.95 13 (04/19/2012 04:45:00) (04/18/2012 21:05:00) PTT [22.9-35.8 seconds] 35.0 seconds 14 34.0 seconds 15 (04/19/2012 04:45:00) (04/18/2012 21:05:00) 12Interpretive Data: RECOMMENDED RANGES FOR PROTIME INR: 2.0-3.0 for most medical and surgical thromboembolic states. 2.5-3.5 for artificial heart valves and recurrent embolism. INR SHOULD BE USED ONLY FOR PATIENTS ON STABLE ANTICOAGULANT THERAPY.13Interpretive Data: RECOMMENDED RANGES FOR PROTIME INR: 2.0-3.0 for most medical and surgical thromboembolic states. 2.5-3.5 for artificial heart valves and recurrent embolism. INR SHOULD BE USED ONLY FOR PATIENTS ON STABLE ANTICOAGULANT THERAPY.14Interpretive Data: Heparin Therapeutic Range: 57 - 92 [id number] Data: Heparin Therapeutic Range: 57 - 92 Seconds Microbiology Reports PROCEDURE:Culture: Urine STATUS: Auth (Verified) BODY SITE: COLLECTED DATE/TIME: 04/22/2012 19:40:07 SOURCE: Urine, Vivar FREE TEXT SOURCE: FINAL REPORTS Final ReportNo GrowthPRELIMINARY REPORTS Preliminary ReportNo Growth; Holding PROCEDURE:Culture: Urine STATUS: Auth (Verified) BODY SITE: COLLECTED DATE/TIME: 04/18/2012 21:05:00 SOURCE: Urine, Clean Catch FREE TEXT SOURCE: FINAL REPORTS Final Haahrf12,000 - 50,000 CFU/mL Skin Lilo PRELIMINARY REPORTS Preliminary ReportNo Growth; Holding Procedures Procedures Date Related Diagnosis Bypass
--- OUTSIDE RECORDS SUMMARY | 2017-12-28 12:58 | XMS REPORT ---
:1940 Author Organization eClinicalWorks Care Team Providers Name Role Phone Tripp, Na Provider Role Unavailable Allergies No Known Allergies Problems Problem Type Condition Code Onset Dates Condition Status Problem PAD (peripheral artery disease) I73.9 Active Problem DJD (degenerative joint disease) M19.90 Active Problem Glaucoma H40.9 Active Problem Diabetes E11.9 Active Problem Controlled type 2 diabetes mellitus E11.51 Active with diabetic peripheral angiopathy without gangrene, without long-term current use of insulin Problem Vitamin B12 deficiency E53.8 Active Problem Hypertension I10 Active Problem GERD (gastroesophageal reflux K21.9 Active disease) Problem Cataract H26.9 Active Problem Vitamin D deficiency E55.9 Active Problem Claudication I73.9 Active Problem Ulcer L98.499 Active Problem Carotid artery occlusion I65.29 Active Problem Degeneration of lumbosacral M51.37 Active intervertebral disc Problem 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 Active Problem Allergic rhinitis, seasonal J30.2 Active Problem Hyperlipidemia, mixed E78.2 Active Problem Anemia, blood loss D50.0 Active Problem Hammer toe M20.40 Active Problem Pain R52 Active Problem Depression with anxiety F41.8 Active Medications No Known Medications Results No Known Results Summary Purpose [facility] Submission
--- OUTSIDE RECORDS SUMMARY | 2017-12-28 12:58 | XMS REPORT ---
[...] Medications Results No Known Results Summary Purpose [facility]
--- OUTSIDE RECORDS SUMMARY | 2017-12-28 12:58 | XMS REPORT ---
[...] Problem Depression with anxiety F41.8 Active Medications Medication Code System Code Instructions Start Date End Date Status Dosage GlipiZIDE [facility] 00450994658 5 MG Orally Once June 20, Active 1 tablet a day 2017 Results No Known Results Summary Purpose eClinicalWorks Submission
--- OUTSIDE RECORDS SUMMARY | 2017-12-28 12:58 | XMS REPORT ---
:1940 Author Organization eClinicalWorks Care Team Providers Name Role Phone Tripp, Na Provider Role Unavailable Allergies, Adverse Reactions, Alerts Substance Reaction Event Type Metformin HCl Info Not Available Drug Allergy Levaquin Info Not Available Drug Allergy Problems Problem Type Condition Code Onset Dates Condition Status Assessment Pain of left foot M79.672 Active Assessment GERD (gastroesophageal reflux K21.9 Active disease) Assessment Calcaneal spur, left M77.32 Active Assessment Depression with anxiety F41.8 Active Assessment Hyperlipidemia, mixed E78.2 Active Assessment Hypertension I10 Active Assessment PAD (peripheral artery disease) I73.9 Active Assessment Controlled type 2 diabetes mellitus E11.51 Active with diabetic peripheral angiopathy without gangrene, without long-term current use of insulin Problem Vitamin B12 deficiency E53.8 Active Problem Diabetes E11.9 Active Problem Pain R52 Active Problem Hypertension I10 Active Problem Degeneration of lumbosacral M51.37 Active intervertebral disc Problem Controlled type 2 diabetes mellitus E11.51 Active with diabetic peripheral angiopathy without gangrene, without long-term current use of insulin Problem Pain of left foot M79.672 Active Problem Calcaneal spur, left M77.32 Active Problem Hammer toe M20.40 Active Problem Hyperlipidemia, mixed E78.2 Active Problem Hair loss L65.9 Active Problem Allergic rhinitis, seasonal J30.2 Active Problem Ulcer L98.499 Active Problem 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 Active Problem Anemia, blood loss D50.0 Active Problem Carotid artery occlusion I65.29 Active Problem Glaucoma H40.9 Active Problem DJD (degenerative joint disease) M19.90 Active Problem Depression with anxiety F41.8 Active Problem PAD (peripheral artery disease) I73.9 Active Problem Claudication I73.9 Active Problem Vitamin D deficiency E55.9 Active Problem Cataract H26.9 Active Problem GERD (gastroesophageal reflux K21.9 Active disease) Medications Medication Code Code Instructions Start End Status Dosage System Date Date Pentoxifylline ER [facility] 53597262472 400 MG Orally Active 1 tablet three times a with meals day Atorvastatin [facility] 15883926081 20MG Active TAKE ONE Calcium TABLET BY MOUTH ONCE DAILY Plavix [facility] 65669052342 75 MG Orally Active 1 tablet Once a day Celexa [facility] 29684079500 10 MG Orally Active 1 tablet Once a day Cetirizine HCl [facility] 85559789685 10MG Active TAKE ONE TABLET BY MOUTH ONCE DAILY Clopidogrel [facility] 50760359473 75MG Active TAKE ONE Bisulfate TABLET BY MOUTH ONCE DAILY GlipiZIDE [facility] 29174710446 5 MG Orally June 20, Active 1 tablet Once a day 2017 Pantoprazole [facility] 03317311605 40 MG Orally August 21, Active 1 tablet Sodium Once a day 2017 Aspir-81 [facility] 24144225202 81 MG Orally Active 1 tablet Once a day Hyzaar [facility] 71350731067 100-25 MG Active 1 tablet Orally Once a day Metoprolol [facility] 03686420606 50MG Active TAKE ONE Tartrate TABLET BY MOUTH TWICE DAILY Vitamin D [facility] 65122555108 90305 UNIT Active 1 capsule (Ergocalciferol) Orally Baclofen [facility] 26797634679 10 MG Orally Active 1 tablet twice a day with food or milk Metoprolol [facility] 06767878873 50 MG Orally Active 1 tablet Tartrate Twice a day with food Results No Known Results Summary Purpose eClinicalWorks Submission
--- OUTSIDE RECORDS SUMMARY | 2017-12-28 12:58 | XMS REPORT ---
[...] Medications Results No Known Results Summary Purpose [facility] Submission
--- OUTSIDE RECORDS SUMMARY | 2017-12-28 12:58 | XMS REPORT ---
:1940 Author Organization eClinicalWorks Care Team Providers Name Role Phone Tripp, Na Provider Role Unavailable Allergies, Adverse Reactions, Alerts Substance Reaction Event Type Metformin HCl Info Not Available Drug Allergy Levaquin Info Not Available Drug Allergy Problems Problem Type Condition Code Onset Dates Condition Status Assessment Acute sinusitis J01.90 Active Problem Vitamin B12 deficiency E53.8 Active Problem [...] Instructions Start End Status Dosage System Date Hyzaar [facility] 85764539662 100-25 MG Active 1 tablet Orally Once a day GlipiZIDE [facility] 52832804522 5 MG Orally June 20, Active 1 tablet Once a day [address] [facility] 69378084879 20MG Active TAKE ONE Calcium TABLET BY MOUTH ONCE DAILY Aspir-[address] [facility] 80947785772 81 MG Orally Active 1 tablet Once a day Metoprolol [facility] 49899456222 50MG Active TAKE ONE Tartrate TABLET BY MOUTH TWICE DAILY Plavix [facility] 45385536062 75 MG Orally Active 1 tablet Once a day Clopidogrel [facility] 75250479543 75MG Active TAKE ONE Bisulfate TABLET BY MOUTH ONCE DAILY Losartan [facility] 50613230662 100-25 MG Active TAKE ONE Potassium-HCTZ TABLET BY MOUTH ONCE DAILY Celexa [facility] 56706100710 10 MG Orally Active 1 tablet Once a day Pantoprazole [facility] 64923433152 40 MG Orally August 21, Active 1 tablet Sodium Once a day 2017 Cetirizine HCl [facility] 08166764281 10MG Active TAKE ONE TABLET BY MOUTH ONCE DAILY Pentoxifylline ER [facility] 56452132099 400 MG Orally Active 1 tablet three times a with meals day Flonase [facility] 40246342508 50 MCG/ACT Oct 11, Active 1 spray in Nasally Once a 2017 each day nostril Citalopram [facility] 40253417239 10 MG Active TAKE ONE Hydrobromide TABLET BY MOUTH ONCE DAILY Baclofen [facility] 78578517994 10 MG Orally Active 1 tablet twice a day with food or milk Vitamin D [facility] 50867526534 53879 UNIT Active 1 capsule (Ergocalciferol) Orally Amoxicillin [facility] 71397965021 500 MG Orally Oct 11, Active 1 capsule every 8 hrs 2017 Results No Known Results Summary Purpose [employer]ClinicalWorks Submission
--- OUTSIDE RECORDS SUMMARY | 2017-12-28 12:58 | XMS REPORT ---
:1940 Author Organization eClinicalWorks Care Team Providers Name Role Phone Tripp, Na Provider Role Unavailable Allergies, Adverse Reactions, Alerts Substance Reaction Event Type Metformin HCl Info Not Available Drug Allergy Levaquin Info Not Available Drug Allergy Problems Problem Type Condition Code Onset Dates Condition Status Assessment Pain of left foot M79.672 Active Assessment Hair loss L65.9 Active Assessment GERD (gastroesophageal reflux K21.9 Active disease) Assessment Depression with anxiety F41.8 Active Problem Hammer toe M20.40 Active Assessment Hyperlipidemia, mixed E78.2 Active Problem Depression with anxiety F41.8 Active Assessment Hypertension I10 Active Problem PAD (peripheral artery disease) I73.9 Active Problem DJD (degenerative joint disease) M19.90 Active Problem Glaucoma H40.9 Active Problem Diabetes E11.9 Active Problem Vitamin B12 deficiency E53.8 Active Problem Controlled type 2 diabetes mellitus E11.51 Active with diabetic peripheral angiopathy without gangrene, without long-term current use of insulin Assessment Controlled type 2 diabetes mellitus E11.51 Active with diabetic peripheral angiopathy without gangrene, without long-term current use of insulin Problem Hypertension I10 Active Assessment PAD (peripheral artery disease) I73.9 Active Problem GERD (gastroesophageal reflux K21.9 Active disease) Problem Cataract H26.9 Active Problem Vitamin D deficiency E55.9 Active Problem Claudication I73.9 Active Problem Ulcer L98.499 Active Problem Carotid artery occlusion I65.29 Active Problem Degeneration of lumbosacral M51.37 Active intervertebral disc Problem 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 Active Problem Allergic rhinitis, seasonal J30.2 Active Problem Hyperlipidemia, mixed E78.2 Active Problem Anemia, blood loss D50.0 Active Problem Pain R52 Active Medications Medication Code Code Instructions Start End Status Dosage System Date Date Zontivity [facility] 87390616916 2.08 MG Orally Inactive 1 tablet Once a day Plavix ND 05648438919 75 MG Orally Active 1 tablet Once a day Vitamin D [facility] 41537397667 82559 UNIT Active 1 capsule (Ergocalciferol) Orally Aspir-81 [facility] 94776544987 81 MG Orally Active 1 tablet Once a day Hyzaar [facility] 78724818129 100-25 MG Active 1 tablet Orally Once a day Metoprolol [facility] 13252047524 50 MG Orally Active 1 tablet Tartrate Twice a day with food Baclofen [facility] 21291455726 10 MG Orally Active 1 tablet twice a day with food or milk Celexa [facility] 21946580258 10 MG Orally Active 1 tablet Once a day Atorvastatin [facility] 86994288838 20MG Active TAKE ONE Calcium TABLET BY MOUTH ONCE DAILY Cetirizine HCl [facility] 38818380646 10MG Active TAKE ONE TABLET BY MOUTH ONCE DAILY Pentoxifylline ER [facility] 01981576901 400 MG Orally Active 1 tablet three times a with day meals Results Name Result Date Reference Range Unit Abnormality Flag MICROALBUMIN, RANDOM URINE (W/CREATININE) GLYCOSALATED HEMOGLOBIN (HgbA1c) Lipid Panel And Chol/HDL Ratio TSH W/REFLEX TO FT4 CBC W/AUTO DIFF CMP Summary Purpose eClinicalWorks Submission
--- NOTE | 2017-12-28 14:30 | RAD REPORT ---
EXAM DESCRIPTION: RAD - Chest Pa And Lat (2 Views) - 12/28/2017 2:21 pm CLINICAL HISTORY: COUGH Chest pain. COMPARISON: Chest Pa And Lat (2 Views) dated 03/30/2017; Chest Pa And Lat (2 Views) dated 03/23/2017; C hest Pa And Lat (2 Views) dated 02/22/2017; Chest Pa And Lat (2 Views) dated 12/05/2016 FINDINGS: The lungs are clear. The heart is upper limit normal in size with sternotomy wires present . No displaced fractures. IMPRESSION: No acute or concerning finding suspected.
[2017-12-28] MEDS ORDERED: cloNIDine HCl 0.1 MG TAB ONE (14:32)
--- NOTE | 2017-12-28 15:51 | ER ---
Nurse's Notes [facility] Name: Eva Haskins Age: 77 yrs Sex: Female : 1940 Arrival Date: 12/28/2017 Time: 12:51 Bed 26 Private MD: [place] Tripp Diagnosis: Hypertension;Other diseases of upper respiratory tract Presentation: 12/28 12:59 Presenting complaint: Patient states: Went to see PCP for flu like symptoms and was aj sent here for HTN. Patient has HX of HTN and is supposed to take 2 HTN medications, but reports that she only takes 1 regularly. Transition of care: patient was not received from another setting of care. Onset of symptoms was December 28, 2017. Risk Assessment: Do you want to hurt yourself or someone else? Patient reports no desire to harm self or others. Initial Sepsis Screen: Does the patient meet any 2 criteria? No. Patient's initial sepsis screen is negative. Does the patient have a suspected source of infection? No. Patient's initial sepsis screen is negative. Care prior to arrival: None. 12:59 Method Of Arrival: Wheelchair aj 12:59 Acuity: DEVON 2 aj Triage Assessment: 13:00 General: Appears in no apparent distress. comfortable, Behavior is calm, cooperative, aj appropriate for age. Pain: Denies pain. Neuro: Level of Consciousness is awake, alert, obeys commands, Oriented to person, place, time, situation, Appropriate for age. Respiratory: Airway is patent Respiratory effort is even, unlabored, Respiratory pattern is regular, symmetrical. Derm: Skin is intact, is healthy with good turgor, Skin is pink, warm \T\ dry. normal. Historical: - Allergies: 13:00 Iodine; aj 13:00 Levofloxacin; aj - Home Meds: 13:00 Glipizide Oral [Active]; lisinopril Oral [Active]; Metoprolol Tartrate Oral [Active]; aj - PMHx: 13:00 Diabetes - NIDDM; Hyperlipidemia; Hypertension; Myocardial infarction; TIA; aj - PSHx: 13:00 Heart stents; triple bypass sx; aj - Immunization history:: Adult Immunizations up to date. - Social history:: Smoking status: Patient/guardian denies using tobacco. - Ebola Screening: : Patient negative for fever greater than or equal to 101.5 degrees Fahrenheit, and additional compatible Ebola Virus Disease symptoms Patient denies exposure to infectious person Patient denies travel to an Ebola-affected area in the 21 days before illness onset No symptoms or risks identified at this time. - Family history:: not pertinent. - Hospitalizations: : No recent hospitalization is reported. Screenin:24 Abuse screen: Denies threats or abuse. Nutritional screening: No deficits noted. tl3 Tuberculosis screening: No symptoms or risk factors identified. Fall Risk None identified. Assessment: 13:00 General: Appears comfortable, well groomed, well developed, well nourished, Behavior is tl3 calm, cooperative, appropriate for age. Pain: Denies pain. Neuro: Level of Consciousness is awake, alert, obeys commands, Oriented to person, place, time, situation, Appropriate for age. Cardiovascular: Heart tones S1 S2 present Patient's skin is warm and dry. Respiratory: Airway is patent Respiratory effort is even, unlabored, Respiratory pattern is regular, symmetrical. GI: No signs and/or symptoms were reported involving the gastrointestinal system. : No signs and/or symptoms were reported regarding the genitourinary system. EENT: No signs and/or symptoms were reported regarding the EENT system. Derm: No signs and/or symptoms reported regarding the dermatologic system. Musculoskeletal: No signs and/or symptoms reported regarding the musculoskeletal system. 15:45 Reassessment: No changes from previously documented assessment. Patient and/or family tl3 updated on plan of care and expected duration. Pain level reassessed. Patient is alert, oriented x 3, equal unlabored respirations, skin warm/dry/pink. blood pressure is reduced, no needs at this time. 16:23 Reassessment: Patient appears in no apparent distress at this time. No changes from tl3 previously documented assessment. Patient and/or family updated on plan of care and expected duration. Pain level reassessed. Patient is alert, oriented x 3, equal unlabored respirations, skin warm/dry/pink. Vital Signs: 13:00 BP 208 / 88; Pulse 76; Resp 19; Temp 98.7; Pulse Ox 97% on R/A; Weight 70.31 kg; Height aj 5 ft. 0 in. (152.40 cm); 14:00 BP 224 / 88; Pulse 78; Resp 18; Pulse Ox 96% ; tl3 15:00 BP 166 / 58; Pulse 72; Resp 18; Pulse Ox 96% ; tl3 16:24 BP 152 / 53; Pulse 77; Resp 18; Pulse Ox 98% on R/A; tl3 13:00 Body Mass Index 30.27 (70.31 kg, 152.40 cm) ED Course: 12:51 Patient arrived in ED. mr 12:51 [place] Tripp MD is Private Physician. mr 13:00 Triage completed. aj 13:00 Arm band placed on left wrist. Patient placed in an exam room. aj 13:03 Benja Cheek MD is Attending Physician. rn 13:20 Tanisha Zelaya, NAINA is Primary Nurse. tl3 13:39 EKG done, by copier repair technician. reviewed by Benja Cheek MD. sm3 14:02 Patient moved to radiology via wheelchair. tl3 14:21 XRAY Chest Pa And Lat (2 Views) In Process Unspecified. EDMS 14:21 X-ray completed. Patient tolerated procedure well. Patient moved back from radiology. jb2 15:50 [place] Tripp MD is Referral Physician. rn 16:24 Patient has correct armband on for positive identification. Bed in low position. Pulse tl3 ox on. NIBP on. 16:24 No provider procedures requiring assistance completed. Patient did not have IV access tl3 during this emergency room visit. Administered Medications: 14:25 Drug: cloNIDine 0.1 mg Route: PO; tl3 16:24 Follow up: Response: Blood pressure is lowered tl3 Outcome: 15:50 Discharge ordered by MD. rn 16:24 Discharged to home ambulatory. tl3 16:24 Condition: stable 16:24 Discharge instructions given to patient, family, Instructed on discharge instructions, follow up and referral plans. Demonstrated understanding of instructions, follow-up care. 16:26 Patient left the ED. tl3 Signatures: Dispatcher [employer] EDMS Haritha Dozier RN NAINA arango Toña Bullard Jesse jb2 Benja Cheek MD MD rn Lowrey, Tammy, NAINA RN tl3 Ryann Schultz 3 Corrections: (The following items were deleted from the chart) 16:24 15:00 BP 152 / 53; Pulse 77bpm; Resp 18bpm; Pulse Ox 98% RA; tl3 tl3
--- NOTE | 2017-12-28 15:52 | EDPHYS ---
Physician Documentation [facility] Name: Eva Haskins Age: 77 yrs Sex: Female : 1940 Arrival Date: 12/28/2017 Time: 12:51 Bed 26 Private MD: [place] Tripp ED Physician Benja Cheek HPI: 12/28 13:42 This 77 yrs old Female presents to ER via Wheelchair with complaints of High rn Blood Pressure. 13:42 The patient has elevated blood pressure and discovered this at a physician's office. rn Onset: The symptoms/episode began/occurred at an unknown time. Modifying factors:. Severity of symptoms: At its worst the blood pressure was moderate, in the emergency department the blood pressure is unchanged. The patient has experienced similar episodes in the past. Reports sent by pcp for high blood pressure, this was second visit to pcp, given abx for cough last week, was following up today, still feels a little sick with congestion and cough, but didn't take one of her BP meds this AM, and noted to have high blood pressure. Reports no symptoms regarding BP, no chest pain/headache/vision changes/abd pain. . Historical: - Allergies: 13:00 Iodine; aj 13:00 Levofloxacin; aj - Home Meds: 13:00 Glipizide Oral [Active]; lisinopril Oral [Active]; Metoprolol Tartrate Oral [Active]; aj - PMHx: 13:00 Diabetes - NIDDM; Hyperlipidemia; Hypertension; Myocardial infarction; TIA; aj - PSHx: 13:00 Heart stents; triple bypass sx; aj - Immunization history:: Adult Immunizations up to date. - Social history:: Smoking status: Patient/guardian denies using tobacco. - Ebola Screening: : Patient negative for fever greater than or equal to 101.5 degrees Fahrenheit, and additional compatible Ebola Virus Disease symptoms Patient denies exposure to infectious person Patient denies travel to an Ebola-affected area in the 21 days before illness onset No symptoms or risks identified at this time. - Family history:: not pertinent. - Hospitalizations: : No recent hospitalization is reported. ROS: 13:42 Constitutional: Negative for fever, chills, and weight loss, Eyes: Negative for injury, rn pain, redness, and discharge, Cardiovascular: Negative for chest pain, palpitations, and edema, Respiratory: Negative for shortness of breath, wheezing, and pleuritic chest pain, Abdomen/GI: Negative for abdominal pain, nausea, vomiting, diarrhea, and constipation, MS/Extremity: Negative for injury and deformity, Skin: Negative for injury, rash, and discoloration, Neuro: Negative for headache, numbness, tingling, and seizure. Exam: 13:42 Constitutional: This is a well developed, well nourished patient who is awake, alert, rn and in no acute distress. Head/Face: Normocephalic, atraumatic. Eyes: Pupils equal round and reactive to light, extra-ocular motions intact. Lids and lashes normal. Conjunctiva and sclera are non-icteric and not injected. Cornea within normal limits. Periorbital areas with no swelling, redness, or edema. ENT: MMM< no stridor Neck: Trachea midline, no thyromegaly or masses palpated, and no cervical lymphadenopathy. Supple, full range of motion without nuchal rigidity, or vertebral point tenderness. No Meningismus. Cardiovascular: Regular rate and rhythm, No pulse deficits. Respiratory: Lungs have equal breath sounds bilaterally, clear to auscultation Abdomen/GI: soft, non-tender MS/ Extremity: Pulses equal, no cyanosis. Neurovascular intact. Full, normal range of motion. Equal circumference. Neuro: Awake and alert, GCS 15, oriented to person, place, time, and situation. Cranial nerves II-XII grossly intact. Motor strength 5/5 in all extremities. Sensory grossly intact. Cerebellar exam normal. Normal gait. Vital Signs: 13:00 BP 208 / 88; Pulse 76; Resp 19; Temp 98.7; Pulse Ox 97% on R/A; Weight 70.31 kg; Height aj 5 ft. 0 in. (152.40 cm); 14:00 BP 224 / 88; Pulse 78; Resp 18; Pulse Ox 96% ; tl3 15:00 BP 166 / 58; Pulse 72; Resp 18; Pulse Ox 96% ; tl3 16:24 BP 152 / 53; Pulse 77; Resp 18; Pulse Ox 98% on R/A; tl3 13:00 Body Mass Index 30.27 (70.31 kg, 152.40 cm) aj MDM: 13:03 Patient medically screened. rn 15:49 Differential diagnosis: Malignant HTN. Data reviewed: vital signs, nurses notes, lab associate test result(s), radiologic studies, plain films, and as a result, I will discharge patient. Counseling: I had a detailed discussion with the patient and/or guardian regarding: the historical points, exam findings, and any diagnostic results supporting the discharge/admit diagnosis, lab results, radiology results, the need for outpatient follow up, to return to the emergency department if symptoms worsen or persist or if there are any questions or concerns that arise at home. Special discussion: I discussed with the patient/guardian in detail that at this point there is no indication for admission to the hospital. It is understood, however, that if the symptoms persist or worsen the patient needs to return immediately for re-evaluation. ED course: Negative CXR, neg flu/strep, BP improved, likely elevated from illness and skipping meds this AM, no change in ECG, actually looks improved compared to last one. . 12/28 13:09 Order name: Flu rn 12/28 13:09 Order name: Strep rn 12/28 13:09 Order name: XRAY Chest Pa And Lat (2 Views); Complete Time: 14:35 rn 12/28 13:09 Order name: EKG; Complete Time: 13:10 rn 12/28 14:52 Order name: Throat Culture EDLA 12/28 13:09 Order name: EKG - Nurse/Tech; Complete Time: 14:02 rn Administered Medications: 14:25 Drug: cloNIDine 0.1 mg Route: PO; tl3 16:24 Follow up: Response: Blood pressure is lowered tl3 Disposition: 12/28/17 15:50 Discharged to Home. Impression: Hypertension, Other diseases of upper respiratory tract. - Condition is Stable. - Discharge Instructions: Hypertension. - Medication Reconciliation Form, Thank You Letter, Antibiotic Education, Prescription Opioid Use form. - Follow up: [place] Tripp MD; When: As needed; Reason: Recheck today's complaints, Re-evaluation by your physician. - Problem is new. - Symptoms have improved. Signatures: Dispatcher [employer] EDHaritha Wisdom RN Benja Palacio MD MD rn Lowrey, Tammy, RN RN tl3 Corrections: (The following items were deleted from the chart) 16:26 15:50 12/28/2017 15:50 Discharged to Home. Impression: Hypertension; Other diseases of tl3 upper respiratory tract. Condition is Stable. Forms are Medication Reconciliation Form, Thank You Letter, Antibiotic Education, Prescription Opioid Use. Follow up: [place] Tripp; When: As needed; Reason: Recheck today's complaints, Re-evaluation by your physician. Problem is new. Symptoms have improved. rn
--- NOTE | 2017-12-28 17:12 | EKG ---
Test Date: 2017-12-28 Test Time: 13:31:12 Regional Manager: TAYLA MEASUREMENT RESULTS: Intervals: Rate: 82 NH: 138 QRSD: 100 QT: 370 QTc: 432 [place]: P: 70 NH: 138 QRS: -39 T: 139 INTERPRETIVE STATEMENTS: Sinus rhythm Left atrial enlargement Left axis deviation ST & T wave abnormality, non specific Abnormal ECG Compared to ECG 03/31/2017 09:05:28 Left-axis deviation now present Venntricular premature complex(es) no longer present ST (T wave) deviation still present Electronically Signed On 12-28-17 17:11:22 [employer] by Channing Unger
[2017-12-28 17:36] VITALS: TEMP 98.7
[2017-12-28 17:39] VITALS: BP 152/53; O2SAT 98
== END 2017-12-28 16:26 | disposition home or self-care (01) ==
LOC: ER 12:47
DX: I10 Essential (primary) hypertension (principal); E11.9 Type 2 diabetes mellitus without complications; E78.5 Hyperlipidemia, unspecified; Z95.818 Presence of other cardiac implants and grafts; Z88.3 Allergy status to other anti-infective agents; Z88.8 Allergy status to other drugs, medicaments and biological substances
CPT/HCPCS: 71046; 87070; 87081; 87804; 93005; 99284

== ENCOUNTER 2018-07-03 08:03 | Observation (INO) | payer MEDICARE ==
--- OUTSIDE RECORDS SUMMARY | 2018-07-03 08:07 | XMS REPORT | Clinical Summary ---
:1940 Author Organization [facility] Address [address] [place] [address] Care Team Providers Name Role Phone [place] [...] Problem Noted Date Coronary artery disease involving [place] coronary artery 03/31/2017 Essential hypertension 03/31/2017 Depression 03/31/2017 NSTEMI (non-ST elevated myocardial infarction) 03/31/2017 Immunizations Name Dates Previously Given Next Due Pneumococcal Conjugate 13-Valent 04/02/2017 Social History Tobacco Use Types Packs/Day Years Used Date Never Smoker Smokeless Tobacco: Never Used Sex Assigned at Date Recorded Not on file Job Start Date Occupation Industry Not on file Not on file Not on file Travel History Travel Start Travel End No recent travel history available. Last Filed Vital Signs Not on file Plan of Treatment Health Maintenance Due Date Last Done Comments SHINGLES VACCINES (#1) 1988 PNEUMOCOCCAL POLYSACCHARIDE VACCINE AGE 65 AND OVER 07/23/2003 65+ PNEUMOCOCCAL VACCINE (2 of 2 - PPSV23) 04/02/2018 04/02/2017 INFLUENZA VACCINE 09/13/2018 Results Not on fileafter 07/02/2017 Advance Directives Patient has advance care planning documents, and code status on file. For more information, please contact:[place] [address] Code Status Date Activated Date Inactivated Comments Full Code 03/31/2017 5:49 PM 04/04/2017 3:42 PM Code Status decision reached by: Patient
--- OUTSIDE RECORDS SUMMARY | 2018-07-03 08:15 | XMS REPORT | Continuity of Care Document ---
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 Use immediately after admixture" (Same as: Ferrlecit) MEDICATION WASTE Product Size: 62.5 mg Product Wasted: ___ mg Timolol 5 MG/ML 1 drp, No Longer Ophthalmic Route: Active 2016 [facility] Solution OPTH, QPM, Drug form: SOLN, Start date: 06/12/16 17:00:00 CDT, Duration: 30 day, Stop date: 07/11/16 17:00:00 CDTNotes: (Same As: Timoptic, Betimol) Brimonidine 1 drp, No Longer tartrate 1.5 Route: Active 2016 [facility] MG/ML OPTH, BID, Ophthalmic Drug form: Solution SOLN, Start date: 06/12/16 9:00:00 CDT, Duration: 30 day, Stop date: 07/11/16 17:00:00 CDTNotes: Non-formula ry. (Same as: Alphagan-P) Atropine 0.5 mg, 5 No Longer mL, Route: Active 2016 [facility] IVP, Drug form: INJ, PRN, Dosing Weight 66.818, kg, PRN Bradycardia , Start date: 06/11/16 22:37:00 CDT, Duration: 30 day, Stop date: 07/11/16 22:36:00 CDT Nitroglycerin 0.4 mg, 1 No Longer 0.4 MG tab, Route: Active 2016 [facility] Sublingual SL, Drug Tablet form: TAB, Q5Min, Dosing Weight 66.818, kg, PRN as needed for chest pain, Start date: 06/11/16 22:37:00 CDT, Duration: 30 day, Stop date: 07/11/16 22:36:00 CDTNotes: (Same as:Nitroqui ck, Nitrostat) "Do Not Crush" Sublingual tablet latanoprost 1 drp, No Longer 0.05 MG/ML Route: Active 2016 [facility] Ophthalmic OPTH, Solution Bedtime, Drug form: SOLN, Start date: 06/11/16 21:00:00 CDT, Duration: 30 day, Stop date: 07/10/16 21:00:00 CDTNotes: Keep refrigerate d. (Same as:Xalatan) Opened bottle may be stored at room temperature for 6 weeks Ferrlecit 100 mg, 8 Inactive mL, Route: 2016 [facility] IVPB, Drug form: INJ, ONCE, Dosing Weight 66.818, kg, Start date: 06/11/16 13:45:00 CDT, Stop date: 06/11/16 13:45:00 CDTNotes: (sodium ferric gluconate complex (elemental iron) 62.5 mg/5 ml INJ) "Limited stability. Use immediately after admixture" (Same as: Ferrlecit) MEDICATION WASTE Product Size: 62.5 mg Product Wasted: ___ mg Plavix 75 mg, 1 No Longer tab, Route: Active 2016 [facility] PO, Drug form: TAB, Daily, Dosing Weight 66.818, kg, Start date: 06/11/16 9:00:00 CDT, Duration: 30 day, Stop date: 07/10/16 9:00:00 CDTNotes: (Same As: Plavix) Hydrochlorothia 1 tab, No Longer zide 25 MG / Route: PO, Active 2016 [facility] Losartan Drug Form: Potassium 100 TAB, Dosing MG Oral Tablet Weight 66.818, kg, Daily, Start date: 06/10/16 9:00:00 CDT, Duration: 30 day, Stop date: 07/09/16 9:00:00 CDT Lasix 20 mg, 2 Inactive mL, Route: 2016 [facility] IV, Drug form: INJ, Daily, Dosing Weight 66.818, kg, Start date: 06/10/16 9:00:00 CDT, Duration: 1 doses or times, Stop date: 06/10/16 9:00:00 CDTNotes: (Same as: Lasix) Citalopram 10 mg, 1 No Longer tab, Route: Active 2016 [facility] PO, Drug form: TAB, Daily, Dosing Weight 66.818, kg, Start date: 06/10/16 9:00:00 CDT, Duration: 30 day, Stop date: 07/09/16 9:00:00 CDT hydrochlorothia 25 mg, 1 No Longer zide 25 mg oral tab, Route: Active 2016 [facility] tablet PO, Drug form: TAB, Daily, Start date: 06/10/16 9:00:00 CDT, Duration: 30 day, Stop date: 07/09/16 9:00:00 CDTNotes: (Same as: Hydrodiuril ) With food. Cozaar 100 mg, 2 No Longer tab, Route: Active 2016 [facility] PO, Drug form: TAB, Daily, Start date: 06/10/16 9:00:00 CDT, Duration: 30 day, Stop date: 07/09/16 9:00:00 CDTNotes: (Same as: Cozaar) sodium chloride 250 mL, No Longer 0.9% INJ 250 mL Rate: On 2016 [facility] call for use with blood product administrat ion, Dosing Weight 66.818, kg, Route: IV, Total Volume: 250, Start Date: 06/10/16 6:30:00 CDT, Duration: 1 day, Stop date: 06/11/16 6:29:00 CDT, Replace Every: 24 hr Alprazolam 0.5 0.5 mg, 1 Inactive MG Oral Tablet tab, Route: 2016 [facility] [Xanax] PO, Drug form: TAB, ONCE, Dosing Weight 66.818, kg, PRN Anxiety, Start date: 06/09/16 23:18:00 CDTNotes: With food or milk (Same as: Xanax) Symbicort 2 No Longer 160/4.5 inhalation, Active 2016 [facility] inhalation Route: aerosol with INHALATION, adapter Drug Form: AERO/A, Dosing Weight 66.818, kg, BID, Start date: 06/09/16 21:00:00 CDT, Duration: 30 day, Stop date: 07/09/16 9:00:00 CDTNotes: (Same as: Symbicort) WASTE: Aerosol - Return to Pharmacy atorvastatin 10 mg, 1 No Longer tab, Route: Active 2016 [facility] PO, Drug form: TAB, Bedtime, Dosing Weight 66.818, kg, Start date: 06/09/16 21:00:00 CDT, Duration: 30 day, Stop date: 07/08/16 21:00:00 CDTNotes: (Same As: Lipitor) insulin, 10 unit, No Longer isophane 0.1 mL, 2016 [facility] Route: SUB-Q, Drug form: INJ, [...] 25 mL, Inactive Syringe Route: IVP, 2016 [facility] Dosing Weight 66.818, kg, PRN, PRN Blood Glucose Results, Start date: 06/09/16 9:55:00 CDT, Duration: 30 day, Stop date: 07/09/16 9:54:00 CDT Glucagon 1 mg, Inactive Route: IM, 2016 [facility] PRN, Dosing Weight 66.818, kg, PRN Blood Glucose Results, Start date: 06/09/16 9:55:00 CDT, Duration: 30 day, Stop date: 07/09/16 9:54:00 CDT metoprolol 50 mg, 1 No Longer tartrate tab, Route: Active 2016 [facility] PO, Drug form: TAB, Q12H, Dosing Weight 66.818, kg, Start date: 06/09/16 9:00:00 CDT, Duration: 30 day, Stop date: 07/08/16 21:00:00 CDTNotes: (Same as: Lopressor) Streptococcus 0.5 mL, Inactive pneumoniae Route: IM, 2016 [facility] serotype 1 Drug Form: capsular INJ, Daily, antigen Start date: diphtheria 06/09/16 [id number] protein 9:00:00 conjugate CDT, Stop vaccine / date: Streptococcus 06/09/16 pneumoniae 17:00:00 serotype 14 CDTNotes: capsular Lightly antigen roll vial diphtheria (DO NOT SQR990 protein SHAKE) conjugate before vaccine / administrat Streptococcus ion. (Same pneumoniae as: Prevnar serotype 18C 13) capsular antigen d Lovenox 40 mg, 0.4 No Longer mL, Route: Active 2016 [facility] SUB-Q, Drug form: INJ, [id number], Dosing Weight 66.818, kg, Priority: Within 8 hours, Start date: 06/09/16 6:00:00 CDT, Duration: 30 day, Stop date: 07/08/16 6:00:00 CDTNotes: (Same as: Lovenox) Insulin, 12 unit, No Longer Aspart, Human 0.12 mL, Active 2016 [facility] Route: SUB-Q, Drug form: SOLN, [...] No Longer Syringe mL, Route: Active 2016 [facility] IVP, Drug Form: INJ, Dosing Weight 66.818, kg, PRN, PRN Blood Glucose Results, Start date: 06/08/16 21:44:00 CDT, Duration: 30 day, Stop date: 07/08/16 21:43:00 CDT Glucagon 1 mg, No Longer Route: IM, Active 2016 [facility] Drug form: PDR/INJ, PRN, Dosing Weight 66.818, kg, PRN Blood Glucose Results, Start date: 06/08/16 21:44:00 CDT, Duration: 30 day, Stop date: 07/08/16 21:43:00 CDT Labetalol 10 mg, 2 No Longer mL, Route: Active 2016 [facility] IV, Drug form: INJ, Q6H, Dosing Weight 66.818, kg, PRN Hypertensio n, Start date: 06/08/16 14:46:00 CDT, Duration: 30 day, Stop date: 07/08/16 14:45:00 CDTNotes: (Same as: Normodyne, Trandate) Push over 2 minutes Give bolus over 2-3 minutes. Hydralazine 10 mg, 0.5 No Longer mL, Route: Active 2016 [facility] IV, Drug form: INJ, Q4H, Dosing Weight 66.818, kg, PRN Hypertensio n, Start date: 06/08/16 14:45:00 CDT, Duration: 30 day, Stop date: 07/08/16 14:44:00 CDTNotes: (Same as: Apresoline) Push over 5 minutes Hydralazine 10 mg, 0.5 Inactive mL, Route: 2016 [facility] IV, Drug form: INJ, ONCE, Dosing Weight 66.818, kg, PRN Hypertensio n, Start date: 06/08/16 13:51:00 CDT, htnNotes: (Same as: Apresoline) Push over 5 minutes glycopyrrolate Route: IV, Inactive (ANES) Drug form: 2016 [facility] INJ, ONCE, Stop date: 06/08/16 11:45:00 CDT neostigmine Route: IV, Inactive (ANES) Drug form: 2016 [facility] INJ, ONCE, Stop date: 06/08/16 11:45:00 CDT ondansetron Route: IV, Inactive (ANES) Drug form: 2016 [facility] INJ, ONCE, Stop date: 06/08/16 11:44:00 CDT sodium chloride 1,000 mL, No Longer 0.9% 1000 ml Rate: 100 Active 2016 [facility] INJ 1,000 mL ml/hr, Infuse over: 10 hr, Route: IV, Dosing Weight 66.818 kg, Total Volume: 1,000, Start date: 06/08/16 11:33:00 CDT, Duration: 30 day, Stop date: 07/08/16 11:32:00 CDT Morphine 2 mg, 1 mL, No Longer Route: IVP, Active 2016 [facility] Drug form: INJ, Q3H, Dosing Weight 66.818, kg, PRN Pain Score 1-3, Start date: 06/08/16 11:33:00 CDT, Duration: 30 day, Stop date: 07/08/16 11:32:00 CDTNotes: (Same as:MORPhine Sulfate) acetaminophen-c 1 tab, No Longer odeine #3 Route: PO, Active 2016 [facility] Drug Form: TAB, Dosing Weight 66.818, kg, Q4H, PRN Pain Score 4-6, Start date: 06/08/16 11:33:00 CDT, Duration: 30 day, Stop date: 07/08/16 11:32:00 CDTNotes: Do not exceed 4gm/day of acetaminoph en. (Same as: Tylenol with Codeine # 3) protamine Route: IV, Inactive (ANES) (ANES) Drug form: 2016 [facility] INJ, Start date: 06/08/16 11:14:00 CDT, Stop date: 06/08/16 12:14:00 CDT norepinephrine Route: IV, Inactive (ANES) Drug form: 2016 [facility] INJ, ONCE, Stop date: 06/08/16 11:04:00 CDT lidocaine Route: IV, Inactive (ANES) Drug form: 2016 [facility] INJ, ONCE, Stop date: 06/08/16 10:55:00 CDT rocuronium Route: IV, Inactive (ANES) Drug form: 2016 [facility] INJ, ONCE, Stop date: 06/08/16 10:55:00 CDT propofol (ANES) Route: IV, Inactive Drug form: 2016 [facility] INJ, ONCE, Stop date: 06/08/16 10:55:00 CDT heparin (ANES) Route: IV, Inactive Drug form: 2016 [facility] INJ, ONCE, Stop date: 06/08/16 10:55:00 CDT fentaNYL (ANES) Route: IV, Inactive Drug form: 2016 [facility] INJ, ONCE, Stop date: 06/08/16 10:54:00 CDT acetaminophen Route: IV, Inactive (ANES) (ANES) Drug form: 2016 [facility] INJ, Start date: 06/08/16 10:45:00 CDT, Stop date: 06/08/16 11:45:00 CDT famotidine Route: IV, Inactive (ANES) Drug form: 2016 [facility] INJ, ONCE, Stop date: 06/08/16 10:39:00 CDT methylPREDNISol Route: IV, Inactive one (ANES) Drug form: 2016 [facility] INJ, ONCE, Stop date: 06/08/16 10:39:00 CDT diphenhydrAMINE Route: IV, Inactive (ANES) Drug form: 2016 [facility] INJ, ONCE, Stop date: 06/08/16 10:39:00 CDT norepinephrine Route: IV, Inactive MH (ANES) (ANES) Drug form: 2016 [facility] INJ, Start date: 06/08/16 10:25:00 CDT, Stop date: 06/08/16 11:25:00 CDT vancomycin Route: IV, Inactive (ANES) (ANES) Drug form: 2016 [facility] INJ, Start date: 06/08/16 10:01:00 CDT, Stop date: 06/08/16 11:01:00 CDT sodium chloride Route: IV, Inactive 0.9% 1000 ml Total 2016 [facility] INJ (ANES) Volume: 1,000, Start date: 06/08/16 9:57:00 CDT, Stop date: 06/08/16 10:57:00 CDT ceFAZolin Route: IV, Inactive (ANES) (ANES) Drug form: 2016 [facility] INJ, Start date: 06/08/16 9:51:00 CDT, Stop date: 06/08/16 10:51:00 CDT LR 1000 mL INJ Route: IV, Inactive (ANES) Total 2016 [facility] Volume: 1,000, Start date: 06/08/16 9:30:00 CDT, Stop date: 06/08/16 10:30:00 CDT Insulin regular 6 unit, Inactive Route: IV, 2016 [facility] ONCE, Dosing Weight 66.818, kg, Start date: 06/08/16 9:10:00 CDT, Stop date: 06/08/16 9:10:00 CDT Albuterol 0.833 3 mL, Inactive MG/ML / Route: NEB, 2016 [facility] Ipratropium Drug Form: [place] 0.167 SOLN, MG/ML Inhalant Dosing Solution Weight 66.818, kg, ONCE, STAT, Start date: 06/08/16 9:07:00 CDT, Stop date: 06/08/16 9:07:00 CDTNotes: (Same as: Duoneb) Calcium 1,000 mL, No Longer Chloride 0.0014 Rate: 25 Active 2016 [facility] MEQ/ML / ml/hr, Potassium Infuse Chloride 0.004 over: 40 MEQ/ML / Sodium hr, Route: Chloride 0.103 IV, Dosing MEQ/ML / Sodium Weight Lactate 0.028 66.818 kg, MEQ/ML Total Injectable Volume: Solution 1,000, Start date: 06/08/16 9:07:00 CDT, Duration: 1 day, Stop date: 06/09/16 9:06:00 CDT Vancomycin 1 gm, No Longer Route: Active 2016 [facility] IVPB, PRE OP, Dosing Weight 68.636, kg, Start date: 06/08/16 7:00:00 CDT, Stop date: 06/09/16 7:47:00 CDTNotes: TIME CRITICAL MEDICATION (Same As: Vancocin) Infusion rate 2001 mg: infuse over 2.5 hours MEDICATION WASTE Product Size: 1000 mg Product Wasted: ___ mg Ancef 2 gm, 100 No Longer mL, Route: Active 2016 [facility] IVPB, Drug form: INJ, PRE OP, Dosing Weight 68.636, kg, Start date: 06/08/16 7:00:00 CDT, Stop date: 06/09/16 7:46:00 CDTNotes: Same as: Ancef Morphine 2 mg, Inactive Route: IVP, 2016 [facility] Q3H, Dosing Weight 68.636, kg, PRN Pain Score 1-3, Start date: 06/03/16 12:29:00 CDT, Duration: 30 day, Stop date: 07/03/16 12:28:00 CDT acetaminophen-c 2 tab, Inactive odeine #3 Route: PO, 2016 [facility] Drug Form: TAB, Dosing Weight 68.636, kg, Q4H, PRN Pain Score 4-6, Start date: 06/03/16 12:29:00 CDT, Duration: 30 day, Stop date: 07/03/16 12:28:00 CDT diphenhydrAMINE Route: IV, Inactive (ANES) Drug form: 2016 [facility] INJ, ONCE, Stop date: 06/03/16 12:24:00 CDT methylPREDNISol Route: IV, Inactive one (ANES) Drug form: 2016 [facility] INJ, ONCE, Stop date: 06/03/16 12:24:00 CDT ondansetron Route: IV, Inactive (ANES) Drug form: 2016 [facility] INJ, ONCE, Stop date: 06/03/16 12:24:00 CDT fentaNYL (ANES) Route: IV, Inactive Drug form: 2016 [facility] INJ, ONCE, Stop date: 06/03/16 12:24:00 CDT midazolam Route: IV, Inactive (ANES) Drug form: 2016 [facility] SOLN, ONCE, Stop date: 06/03/16 12:24:00 CDT famotidine Route: IV, Inactive (ANES) Drug form: 2016 [facility] INJ, ONCE, Stop date: 06/03/16 12:24:00 CDT vancomycin Route: IV, Inactive (ANES) (ANES) Drug form: 2016 [facility] INJ, Start date: 06/03/16 12:00:00 CDT, Stop date: 06/03/16 13:00:00 CDT ceFAZolin Route: IV, Inactive (ANES) (ANES) Drug form: 2016 [facility] INJ, Start date: 06/03/16 11:47:00 CDT, Stop date: 06/03/16 12:47:00 CDT LR 1000 mL INJ Route: IV, Inactive (ANES) Total 2016 [facility] Volume: 1,000, Start date: 06/03/16 11:35:00 CDT, Stop date: 06/03/16 12:35:00 CDT Insulin regular 2 unit, Inactive Route: IV, 2016 [facility] ONCE, Dosing Weight 68.636, kg, Start date: 06/03/16 11:03:00 CDT, Stop date: 06/03/16 11:03:00 CDT Insulin regular 6 unit, Inactive Route: IV, 2016 [facility] ONCE, Dosing Weight 68.636, kg, Start date: 06/03/16 10:44:00 CDT, Stop date: 06/03/16 10:44:00 CDT Insulin regular 6 unit, Inactive Route: IV, 2016 [facility] ONCE, Dosing Weight 68.636, kg, Start date: 06/03/16 10:42:00 CDT, Stop date: 06/03/16 10:42:00 CDT Lactated 1,000 mL, Inactive [place]ers 1,000 Rate: 40 2016 mL ml/hr, Infuse over: 25 hr, Route: IV, Dosing Weight 68.636 kg, Total Volume: 1,000, Start date: 06/03/16 10:41:00 CDT, Duration: 30 day, Stop date: 07/03/16 10:40:00 CDT Vancomycin 1 gm, No Longer Route: IV, Active 2016 [facility] PRE OP, Dosing Weight 72.727, kg, Start date: 05/26/16 9:00:00 CDT, Duration: 30 day, Stop date: 06/25/16 8:59:00 CDTNotes: TIME CRITICAL MEDICATION (Same As: Vancocin) Infusion rate 2001 mg: infuse over 2.5 hours MEDICATION WASTE Product Size: 1000 mg Product Wasted: ___ mg Ancef 2 gm, 100 No Longer mL, Route: Active 2016 [facility] IVPB, Drug form: INJ, PRE [...] Longer Alphonso dinitrate tab, Route: Active 2012 [facility] PO, Drug form: TAB, BID, Dosing Weight 69.091, kg, Start date: 04/25/12 21:00:00, Duration: 30 day, Stop date: 05/25/12 17:00:00 Crestor 20 mg, 2 PO No Longer [place] tab, Route: 2012 [facility] PO, Drug form: TAB, QPM, Dosing Weight 69.091, kg, Start date: 04/25/12 21:00:00, Duration: 30 day, Stop date: 05/25/12 17:00:00 methylPREDNISol 20 mg, 0.5 IV No Longer [place] one mL, Route: 2012 [facility] IV, Drug form: INJ, ONCE, Start date: 04/25/12 20:20:00, Stop date: 04/25/12 20:20:00 simvastatin 10 mg, 1 PO No Longer [place] tab, Route: Active 2012 [facility] PO, Drug form: TAB, Bedtime, Dosing Weight 69.091, kg, Start date: 04/24/12 21:00:00, Duration: 30 day, Stop date: 05/23/12 21:00:00 Benadryl 25 mg, 1 PO No Longer Shant tab, Route: 2012 [facility] PO, Drug form: TAB, TID, Dosing Weight 69.091, kg, PRN Itching, Start date: 04/24/12 4:47:00, Duration: 30 day, Stop date: 05/24/12 4:46:00 1/2 NS 1,000 mL 1,000 mL, IV No Longer Mougouris Rate: 50 2012 [facility] ml/hr, Infuse over: 20 hr, Route: IV, kg, Total Volume: 1,000, Start date: 04/22/12 19:46:00, Duration: 30 day, Stop date: 05/22/12 19:45:00 Robitussin 100 200 mg, 10 PO No Longer [place] mg/5 mL oral mL, Route: Active 2012 [facility] liquid PO, Drug form: LIQ, Q4H, Dosing Weight 69.091, kg, Start date: 04/22/12 14:24:00, Duration: 30 day, Stop date: 05/22/12 12:00:00 potassium 20 mEq, 100 IVPB No Longer Yadira chloride mL, Route: 2012 [facility] IVPB, Drug form: INJ, Q2H, Start date: 04/22/12 10:00:00, Duration: 2 doses or times, Stop date: 04/22/12 12:00:00 Geodon 10 mg, IM No Longer Terminella Route: IM, 2012 [facility] Drug form: PDR/INJ, Q8H, PRN Anxiety, Start date: 04/22/12 0:52:00, Duration: 30 day, Stop date: 05/22/12 0:51:00 aspirin 325 mg 325 mg, 1 PO No Longer Marcin tablet, enteric tab, Route: 2012 [facility] coated PO, Drug form: ECTAB, QAM, Start date: 04/21/12 9:00:00, Duration: 30 day, Stop date: 05/20/12 9:00:00 famotidine 20 mg, 1 PO No Longer Terminella tab, Route: 2012 [facility] PO, Drug form: TAB, Daily, Dosing Weight 69.091, kg, Start date: 04/21/12 9:00:00, Duration: 30 day, Stop date: 05/20/12 9:00:00 niCARdipine IV, Start IV No Longer Terminella date: [facility] 2012 [facility] 04/20/12 17:35:00, Duration: 30, 200 ml, 69.091 Sodium Chloride 1,000 mL, IV No Longer Aboussleman 0.9% IV 1,000 Rate: 70 2012 [facility] mL ml/hr, Infuse over: 14.3 hr, Route: IV, kg, Total Volume: 1,000, Start date: 04/20/12 15:38:00, Stop date: 05/20/12 15:37:00 Tylenol 650 mg, 1 NM No Longer Marcin supp, 2012 [facility] Route: NM, Drug form: SUPP, Q4H, PRN Fever, Start date: 04/20/12 15:36:00, Duration: 30 day, Stop date: 05/20/12 15:35:00 Tylenol 650 mg, 2 PO No Longer [place] tab, Route: Active 2012 [facility] PO, Drug form: TAB, Q4H, PRN Fever, Start date: 04/20/12 15:35:00, Duration: 30 day, Stop date: 05/20/12 15:34:00 Zofran 4 mg, 2 mL, IVP No Longer [place] Route: IVP, Active 2012 [facility] Drug form: INJ, Q6H, PRN Nausea & Vomiting, Start date: 04/20/12 15:33:00, Duration: 30 day, Stop date: 05/20/12 15:32:00 morphine 4 mg, 2 mL, IV No Longer [facility] Sulfate Route: IV, 2012 [facility] Drug form: INJ, Q2H, PRN Pain Score 7-10, Start date: 04/20/12 15:27:00, Duration: 30 day, Stop date: 05/20/12 15:26:00 morphine 2 mg, 1 mL, IV No Longer [place] Sulfate Route: IV, Active 2012 [facility] Drug form: INJ, Q2H, PRN Pain Score 6-10, Start date: 04/20/12 15:24:00, Duration: 30 day, Stop date: 05/20/12 15:23:00 acetaminophen-h 2 tab, PO No Longer [place] ydrocodone 325 Route: PO, Active 2012 [facility] mg-5 mg oral Drug Form: tablet TAB, Q4H, PRN Pain Score 4-6, Start date: 04/20/12 15:24:00, Duration: 30 day, Stop date: 05/20/12 15:23:00 acetaminophen-h 1 tab, PO No Longer [place] ydrocodone 325 Route: PO, Active 2012 [facility] mg-5 mg oral Drug Form: tablet TAB, Q4H, PRN Pain Score 1-3, Start date: 04/20/12 15:23:00, Duration: 30 day, Stop date: 05/20/12 15:22:00 hydrALAZINE 10 mg, 0.5 IV No Longer Marcin mL, Route: Active 2012 [facility] IV, Drug form: INJ, Q6H, PRN Other -See Comment, Start date: 04/20/12 15:19:00, Duration: 30 day, Stop date: 05/20/12 15:18:00 Lactated 1,000 mL, IV No Longer Marcin Ringers Rate: 25 Active 2012 [facility] Injection IV ml/hr, 1,000 mL Infuse over: 40 hr, Route: IV, kg, Total Volume: 1,000, Start date: 04/20/12 9:59:00, Duration: 1 day, Stop date: 04/21/12 9:58:00 losartan 100 mg, 2 PO No Longer Mougouris tab, Route: Active 2012 [facility] PO, Drug form: TAB, Daily, Dosing Weight 68.182, kg, Start date: 04/20/12 9:00:00, Duration: 30 day, Stop date: 05/19/12 9:00:00 heparin 5,000 unit, SUB-Q No Longer Mougouris 1 mL, Active 2012 [facility] Route: SUB-Q, Drug form: INJ, Q12H, Dosing Weight 68.182, kg, Start date: 04/19/12 21:00:00, Duration: 30 day, Stop date: 05/19/12 9:00:00 latanoprost 1 drp, OPTH No Longer Mougouris ophthalmic Route: Active 2012 [facility] 0.005% solution OPTH, Bedtime, Drug form: SOLN, Start date: 04/19/12 21:00:00, Duration: 30 day, Stop date: 05/18/12 21:00:00 atropine 0.5 mg, 5 IVP No Longer Yadira mL, Route: Active 2012 [facility] IVP, Drug form: INJ, PRN, PRN Bradycardia , Start date: 04/19/12 17:18:00, Duration: 30 day, Stop date: 05/19/12 18:17:00 nitroglycerin 0.4 mg, 1 SL No Longer Yadira 0.4 mg tab, Route: Active 2012 [facility] sublingual SL, Drug tablet form: TAB, Q5Min, PRN Chest Pain, Start date: 04/19/12 17:18:00, Duration: 30 day, Stop date: 05/19/12 18:17:00 vancomycin 1 gm, 200 IVPB No Longer Marcin mL, Route: Active 2012 [facility] IVPB, Drug form: INJ, ONCALL, Start date: 04/19/12 17:00:00, Duration: 1 day, Stop date: 04/20/12 16:59:00 cefazolin + 1 gm, IVPB No Longer Marcin Sodium Chloride Route: Active 2012 [facility] 0.9% IV 100 mL IVPB, ONCALL, Start date: 04/19/12 17:00:00, Duration: 1 day, Stop date: 04/20/12 16:59:00 Lopressor 75 mg, 3 PO No Longer Mougouris tab, Route: Active 2012 [facility] PO, Drug form: TAB, BID, Dosing Weight 68.182, kg, Start date: 04/19/12 17:00:00, Stop date: 05/19/12 9:00:00 timolol 1 drp, BOTH EYES No Longer Mougouris ophthalmic 0.5% Route: BOTH Active 2012 [facility] solution EYES, QPM, Drug form: SOLN, Start date: 04/19/12 17:00:00, Stop date: 05/18/12 17:00:00 brimonidine 1 drp, OPTH No Longer Mougouris ophthalmic Route: Active 2012 [facility] 0.15% solution OPTH, BID, Drug form: SOLN, Start date: 04/19/12 17:00:00, Stop date: 05/19/12 9:00:00 baclofen 10 mg, 1 PO No Longer Mougouris tab, Route: Active 2012 [facility] PO, Drug form: TAB, BID, Dosing Weight 68.182, kg, Start date: 04/19/12 17:00:00, Duration: 30 day, Stop date: 05/19/12 9:00:00 aspirin 325 mg 325 mg, 1 PO No Longer Marcin tablet tab, Route: Active 2012 [facility] PO, Drug form: TAB, Daily, Start date: 04/19/12 16:44:00, Duration: 30 day, Stop date: 05/19/12 9:00:00 Ativan 1 mg, 0.5 INJ No Longer Mougouris 04/19/ mL, Route: Active 2012 [facility] INJ, Drug form: INJ, Q6H, Dosing Weight 68.182, kg, PRN as needed for anxiety, Start date: 04/19/12 12:50:00, Duration: 30 day, Stop date: 05/19/12 12:49:00 clonidine 0.1 mg, 1 PO No Longer Mougouris tab, Route: [facility] 2012 [facility] PO, Drug form: TAB, Q8H, Dosing Weight 68.182, kg, PRN Hypertensio n, Start date: 04/19/12 12:50:00, Duration: 30 day, Stop date: 05/19/12 12:49:00 Dextrose 50% 25 gm, 50 IVP No Longer [facility] Syringe mL, Route: [facility] 2012 [facility] IVP, Drug Form: INJ, Dosing Weight 68.182, kg, PRN, PRN Blood Glucose Results, Start date: 04/19/12 12:49:00, Duration: 30 day, Stop date: 05/19/12 13:48:00 glucagon 1 mg, IM No Longer [facility] Route: IM, [facility] 2012 [facility] Drug form: PDR/INJ, PRN, Dosing Weight 68.182, kg, PRN Blood Glucose Results, Start date: 04/19/12 12:49:00, Duration: 30 day, Stop date: 05/19/12 13:48:00 insulin aspart 1 unit, SUB-Q No Longer [facility] 0.01 mL, [facility] 2012 [facility] Route: SUB-Q, Drug form: SOLN, TID-Before Meals, Dosing Weight 68.182, kg, PRN Blood Glucose Results, Start date: 04/19/12 12:49:00, Duration: 30 day, Stop date: 05/19/12 12:48:00 Symbicort 2 INHALATIO No Longer [place] 160/4.5 inhalation, N [facility] 2012 [facility] inhalation Route: aerosol with INHALATION, adapter Drug Form: AERO/A, Dosing Weight 68.182, kg, PRN, PRN Shortness of breath, Start date: 04/19/12 12:47:00, Duration: 30 day, Stop date: 05/19/12 13:46:00, sob aspirin 325 mg 325 mg, PO No Longer [place] tablet Route: PO, Active 2012 [facility] Drug form: TAB, ONCE, Dosing Weight 68.182, kg, Priority: STAT, Start date: 04/19/12 12:25:00, Stop date: 04/19/12 12:25:00 hydrALAZINE 20 mg, 1 IV No Longer [place] mL, Route: Active 2012 [facility] IV, Drug form: INJ, Q6H, Dosing Weight 68.182, kg, PRN Elevated BP, Start date: 04/19/12 6:07:00, Duration: 30 day, Stop date: 05/19/12 6:06:00, SBP >165 brimonidine 1 drp, OPT Active [facility] ophthalmic OPTH, BID, 2012 0.15% solution 5 ml, Substitute Allowed, SOLN latanoprost 1 drp, OPT Active [facility] ophthalmic OPTH, 2012 [facility] 0.005% solution Bedtime, 3 ml, Substitute Allowed, SOLN timolol 1 drp, OPT Active [facility] ophthalmic OPTH, QPM, 2012 [facility] long-acting, 5 ml, 0.5% solution Substitute Allowed, SOLN Symbicort 2 puff, INHALATIO Active [facility] 160/4.5 INHALATION, N 2012 inhalation PRN, PRN aerosol with for cough, adapter Substitutio n Allowed, Maintenance PRN for cough losartan 100 mg 100 mg, 1 PO Active [facility] oral tablet tab, PO, 2012 Daily, 30 tab, Substitutio n Allowed, TAB Metoprolol 50 mg, 1 PO No Longer [facility] Tartrate 50 mg tab, PO, Active 2012 oral tablet BID, Substitutio n Allowed glyBURIDE-metfo 2 tab, PO, PO Active rmin 5 mg-500 BID, 60 2012 mg oral tablet tab, Substitutio n Allowed, Maintenance , TAB baclofen 10 mg, PO, PO Active [facility] BID, 2012 Substitutio n Allowed Saline Flush 5 ml, IVP No Longer [facility] 0.9% Route: IVP, 2012 [facility] Drug Form: INJ, Dosing Weight 68.182, kg, PRN, PRN Line Flush, Start date: 04/19/12 0:44:00, Duration: 30 day, Stop date: 05/19/12 1:43:00 acetaminophen 650 mg, 2 PO No Longer [place]ad[place] tab, Route: 2012 [facility] PO, Drug form: TAB, Q4H, Dosing Weight 68.182, kg, PRN Pain/Fever, Start date: 04/19/12 0:44:00, Duration: 30 day, Stop date: 05/19/12 0:43:00 ondansetron 4 mg, 2 mL, IVP No Longer [facility] Route: IVP, 2012 [facility] Drug form: INJ, Q6H, Dosing Weight 68.182, kg, PRN Nausea & Vomiting, Start date: 04/19/12 0:44:00, Duration: 30 day, Stop date: 05/19/12 0:43:00 Sodium Chloride 1,000 mL, IV No Longer Marcin 0.9% IV 1,000 Rate: 40 2012 [facility] mL ml/hr, Infuse over: 25 hr, Route: IV, kg, Total Volume: 1,000, Start date: 04/19/12 0:44:00, Duration: 30 day, Stop date: 05/19/12 0:43:00 Benadryl 50 mg, IVP No Longer [facility] Route: IVP, [facility] 2012 [facility] ONCE, Dosing Weight 68.182, kg, Priority: STAT, Start date: 04/18/12 21:13:00, Stop date: 04/18/12 21:13:00 SoluMedrol 125 mg, IVP No Longer [facility] Route: IVP, [facility] 2012 [facility] ONCE, Dosing Weight 68.182, kg, Priority: STAT, Start date: 04/18/12 21:12:00, Stop date: 04/18/12 21:12:00 Saline Flush 5 mL, IVP No Longer [facility] 0.9% Route: IVP, 2012 [facility] Drug Form: INJ, Dosing Weight 68.182, kg, Q8H, PRN Line Flush, Start date: 04/18/12 21:05:00, Duration: 30 day, Stop date: 05/18/12 21:04:00, Administer at least once every 8 hoursAdmini ster at least once every 8 hours Allergies, Adverse Reactions, Alerts Substance Category Reaction Severity Reaction Status Date Comments Source type Reported iodine drug Allergy Active allergy [facility] Bactrim Assertion Drug Active allergy [facility] Immunizations Immunization Date Site Status Last Comments Source Given Updated pneumococcal Right completed [facility] 13-valent 7 deltoid vaccine influenza virus completed [facility] vaccine, 2 inactivated influenza virus completed [facility] vaccine, 2 inactivated Hx pneumococcal completed [facility] vaccine 2 Hx pneumococcal completed [facility] vaccine 2 Results Order Name Results Value [...] is not recommended in the following populations: [facility] 3m2 Individuals with unstable creatinine [...] Lvl 8.9 mg/dL 8.5 - 10.5 06/13 [facility] CHEM PANEL Total 6.2 g/dL 6.4 - 8.4 06/13 [facility] CHEM PANEL Bili Total 0.5 mg/dL 0.2 - 1.3 06/13 [facility] CHEM PANEL CO2 30 meq/L 24 - 32 06/13 [facility] CHEM PANEL ALT 18 unit/L 0 - 65 06/13 [facility] CHEM PANEL Albumin Lvl 2.9 g/dL 3.5 - 5.0 05 [facility] CHEM PANEL AST 15 unit/L [...] Lvl 134 mg/dL 70 - 99 06/13 [facility] CHEM PANEL A/G Ratio 0.9 0.7 - 1.6 06/13 [facility] CHEM PANEL Globulin 3.3 g/dL 2.7 - 4.2 06/13 [facility] CHEM PANEL B/C Ratio 36 6 - 25 06/13 [facility] CHEM PANEL AGAP 13.5 meq/L 10.0 - 06/13 20.0 [facility] HEMATOLOGY MCHC 34.1 g/dL 32.0 - 06/13 36.0 [facility] HEMATOLOGY MPV 9.4 fL 7.4 - 10.4 06/13 [facility] HEMATOLOGY RDW 17.1 % 11.5 - 06/13 14.5 [facility] HEMATOLOGY MCH 26.8 pg 27.0 - 06/13 31.0 [facility] HEMATOLOGY Platelet 198 K/CMM 133 - 450 06/13 [facility] HEMATOLOGY WBC 9.9 K/CMM 3.7 - 10.4 05 [facility] HEMATOLOGY Hgb 8.2 g/dL 12.0 - 05 16.0 [facility] HEMATOLOGY RBC 3.05 M/CMM 4.20 - 06/13 5.40 [facility] HEMATOLOGY MCV 78.5 fL 80.0 - 05 98.0 [facility] HEMATOLOGY Hct 23.9 % 36.0 - 06/13 48.0 [facility] HEMATOLOGY Microcyte 1+ None Seen 06/13 [facility] *ABN* (06/13/16 6:25 AM) HEMATOLOGY Basophils # 0.1 K/CMM 0.0 - 0.2 06/13 [facility] HEMATOLOGY Eosinophils 0.2 K/CMM 0.0 - 0.5 06/13 [facility] HEMATOLOGY Monocytes # 0.7 K/CMM 0.0 - 0.8 06/13 [facility] HEMATOLOGY Lymphocytes 17.6 % 20.0 - 06/13 40.0 /2016 [facility] HEMATOLOGY Segs 73.1 % 45.0 - 06/13 75.0 /2016 [facility] HEMATOLOGY Basophils 0.5 % 0.0 - 1.0 06/13 [facility] HEMATOLOGY Eosinophils 2.2 % 0.0 - 4.0 06/13 [facility] HEMATOLOGY Monocytes 6.6 % 2.0 - 12.0 06/13 [facility] HEMATOLOGY Lymphocytes 1.7 K/CMM 1.0 - 5.5 06/13 [facility] HEMATOLOGY Segs-Bands # 7.2 K/CMM 1.5 - 8.1 06/13 [facility] Hgb 8.0 g/dL 12.0 - 06/12 16.0 [facility] Hct 24.0 % 36.0 - 06/12 48.0 [facility] BLOOD BANK RBC product Product available 1 06/10 Result Comment: 2016 06:42 [id number] RESULTS notified [facility] in [address] [place] [address] (06/10/16 6:30 AM) CHEM PANEL eGFR 85 [...] is not recommended in the following populations: [facility] 3m2 Individuals with unstable creatinine [...] 0.66 mg/dL 0.50 - 06/10 Lvl 1.40 [facility] CHEM PANEL Potassium 3.9 meq/L 3.5 - 5.1 06/10 [facility] CHEM PANEL Sodium Lvl 143 meq/L 135 - 145 06/10 [facility] CHEM PANEL Chloride Lvl 109 meq/L 95 - 109 06/10 [facility] CHEM PANEL CO2 25 meq/L 24 - 32 06/10 [facility] CHEM PANEL AGAP 12.9 meq/L 10.0 - 06/10 20. [facility] CHEM PANEL Calcium Lvl 7.9 mg/dL 8.5 - 10.5 06/10 [facility] CHEM PANEL Glucose Lvl 143 mg/dL 70 - 99 06/10 [facility] CHEM PANEL BUN 19 mg/dL 7 - 22 06/10 [facility] CHEM PANEL Magnesium 2.1 mg/dL 1.8 - 2.4 06/10 [facility] CHEM PANEL Phosphorus 2.8 mg/dL 2.5 - 4.5 06/10 [facility] HEMATOLOGY Hgb 7.3 g/dL 12.0 - 06/10 16. [facility] HEMATOLOGY RBC 2.77 M/CMM 4.20 - 06/10 5.40 [facility] HEMATOLOGY WBC 8.1 K/CMM 3.7 - 10.4 06/10 [facility] HEMATOLOGY MPV 9.8 fL 7.4 - 10.4 06/10 [facility] HEMATOLOGY Platelet 138 K/CMM 133 - 450 06/10 [facility] HEMATOLOGY MCV 78.7 fL 80.0 - 06/10 98.0 [facility] HEMATOLOGY RDW 16.6 % 11.5 - 06/10 14. [facility] HEMATOLOGY MCHC 33.4 g/dL 32.0 - 06/10 36.0 [facility] HEMATOLOGY Hct 21.8 % 36.0 - 06/10 48.0 [facility] HEMATOLOGY MCH 26.3 pg 27.0 - 06/10 31.0 [facility] HEMATOLOGY Microcyte 1+ None Seen 06/10 [facility] *ABN* (06/10/16 4:06 AM) HEMATOLOGY Segs-Bands # 5.6 K/CMM 1.5 - 8.1 06/10 [facility] HEMATOLOGY Eosinophils 0.1 K/CMM 0.0 - 0.5 06/10 MH # /2017 [facility] HEMATOLOGY Monocytes # 0.5 K/CMM 0.0 - 0.8 06/10 [facility] HEMATOLOGY Basophils 0.3 % 0.0 - 1.0 06/10 [facility] HEMATOLOGY Lymphocytes 1.9 K/CMM 1.0 - 5.5 06/10 MH # /2017 [facility] HEMATOLOGY Eosinophils 0.9 % 0.0 - 4.0 06/10 [facility] HEMATOLOGY Monocytes 6.5 % 2.0 - 12.0 06/10 [facility] HEMATOLOGY Lymphocytes 23.3 % 20.0 - 06/10 MH 40.0 /2016 [facility] HEMATOLOGY Segs 69.0 % 45.0 - 06/10 75.0 /2016 [facility] CHEM PANEL eGFR 84 06/09 [...] 0.70 mg/dL 0.50 - 06/09 Lvl 1.40 [facility] CHEM PANEL Potassium 3.8 meq/L 3.5 - 5.1 06/09 Lvl [facility] CHEM PANEL Sodium Lvl 140 meq/L 135 - 145 06/09 [facility] CHEM PANEL Glucose Lvl 215 mg/dL 70 - 99 06/09 [facility] CHEM PANEL BUN 20 mg/dL 7 - 22 06/09 [facility] CHEM PANEL Calcium Lvl 7.6 mg/dL 8.5 - 10.5 06/09 [facility] CHEM PANEL Chloride Lvl 105 meq/L 95 - 109 06/09 [facility] CHEM PANEL AGAP 10.8 meq/L 10.0 - 06/09 MH 20.0 [facility] CHEM PANEL CO2 28 meq/L 24 - 32 06/09 /2016 [facility] HEMATOLOGY RBC 3.07 M/CMM 4.20 - 06/09 MH 5.40 [facility] HEMATOLOGY MCV 77.3 fL 80.0 - 06/09 MH 98.0 [facility] HEMATOLOGY WBC 9.5 K/CMM 3.7 - 10.4 06/09 [facility] HEMATOLOGY MCHC 33.5 g/dL 32.0 - 06/09 MH 36.0 [facility] HEMATOLOGY RDW 16.4 % 11.5 - 06/09 MH 14. [facility] HEMATOLOGY MCH 25.9 pg 27.0 - 06/09 MH 31.0 [facility] HEMATOLOGY Platelet 153 K/CMM 133 - 450 06/09 [facility] HEMATOLOGY MPV 9.1 fL 7.4 - 10.4 06/09 [facility] HEMATOLOGY Microcyte 1+ None Seen 06/09 [facility] *ABN* (06/09/16 4:37 AM) HEMATOLOGY Lymphocytes 13.1 % 20.0 - 06/09 MH 40.0 [facility] HEMATOLOGY Monocytes 7.3 % 2.0 - 12.0 06/09 [facility] HEMATOLOGY Segs-Bands # 7.6 K/CMM 1.5 - 8.1 06/09 [facility] HEMATOLOGY Basophils 0.2 % 0.0 - 1.0 06/09 [facility] HEMATOLOGY Segs 79.4 % 45.0 - 06/09 75.0 [facility] HEMATOLOGY Lymphocytes 1.3 K/CMM 1.0 - 5.5 06/09 MH # /2016 [facility] HEMATOLOGY Monocytes # 0.7 K/CMM 0.0 - 0.8 06/09 [facility] BACTERIAL MRSA by PCR Negative 06/08 - SEROLOGY /2016 [facility] (06/08/16 1:43 PM) BLOOD BANK Antibody Negative 06/08 RESULTS Scrn [facility] (06/08/16 7:38 AM) BLOOD BANK ABO/Rh O POS 06/08 RESULTS /2016 [facility] HEMATOLOGY INR 1.04 0.85 - 06/08 MH 1. [facility] HEMATOLOGY PT 13.8 s 12.0 - 06/08 14. [facility] HEMATOLOGY PTT 30.6 s 22.9 - 06/08 MH 35.8 /2016 [facility] HEMATOLOGY Eosinophils 0.2 K/CMM 0.0 - 0.5 06/08 # /2016 [facility] HEMATOLOGY Eosinophils 1.6 % 0.0 - 4.0 06/08 [facility] CHEM PANEL eGFR 62 05/26 [...] is not recommended in the following populations: [facility] 3m2 Individuals with unstable creatinine [...] Lvl 140 meq/L 135 - 145 05/26 [facility] CHEM PANEL Creatinine 0.90 mg/dL 0.50 - 05/26 Lvl 1.40 [facility] CHEM PANEL Chloride Lvl 102 meq/L 95 - 109 05/26 [facility] CHEM PANEL Potassium 3.6 meq/L 3.5 - 5.1 05/26 Lvl [facility] CHEM PANEL CO2 30 meq/L 24 - 32 05/26 [facility] CHEM PANEL Calcium Lvl 8.9 mg/dL 8.5 - 10.5 05/26 [facility] CHEM PANEL Glucose Lvl 185 mg/dL 70 - 99 05/26 [facility] CHEM PANEL BUN 20 mg/dL 7 - 22 05/26 [facility] CHEM PANEL AGAP 11.6 meq/L 10.0 - 05/26 20.0 [facility] HEMATOLOGY Microcyte 1+ None Seen 05/26 [facility] *ABN* (05/26/16 9:42 AM) HEMATOLOGY Monocytes # 0.5 K/CMM 0.0 - 0.8 05/26 [facility] HEMATOLOGY Eosinophils 0.2 K/CMM 0.0 - 0.5 05/26 # /2017 [facility] HEMATOLOGY Lymphocytes 1.6 K/CMM 1.0 - 5.5 05/26 MH # /2017 [facility] HEMATOLOGY Segs-Bands # 6.9 K/CMM 1.5 - 8.1 05/26 /2016 [facility] HEMATOLOGY Basophils 0.4 % 0.0 - 1.0 05/26 [facility] HEMATOLOGY Monocytes 4.9 % 2.0 - 12.0 05/26 [facility] HEMATOLOGY Eosinophils 1.8 % 0.0 - 4.0 05/26 /2016 [facility] HEMATOLOGY Lymphocytes 17.4 % 20.0 - 05/26 40.0 /2016 [facility] HEMATOLOGY Segs 75.5 % 45.0 - 05/26 75.0 /2016 [facility] HEMATOLOGY Platelet 169 K/CMM 133 - 450 05/26 [facility] HEMATOLOGY MCH 25.9 pg 27.0 - 05/26 31.0 /2016 [facility] HEMATOLOGY MPV 9.8 fL 7.4 - 10.4 05/26 [facility] HEMATOLOGY RDW 16.2 % 11.5 - 05/26 14.5 /2016 [facility] HEMATOLOGY MCHC 33.0 g/dL 32.0 - 05/26 36.0 /2016 [facility] HEMATOLOGY Hct 37.2 % 36.0 - 05/26 48.0 /2016 [facility] HEMATOLOGY MCV 78.3 fL 80.0 - 05/26 98.0 /2016 [facility] HEMATOLOGY Hgb 12.3 g/dL 12.0 - 05/26 16.0 /2016 [facility] HEMATOLOGY RBC 4.75 M/CMM 4.20 - 05/26 5.40 /2016 [facility] HEMATOLOGY WBC 9.2 K/CMM 3.7 - 10.4 05/26 [facility] HEMATOLOGY PT 13.8 s 12.0 - 05/26 14.7 [facility] HEMATOLOGY INR 1.04 0.85 - 05/26 1.17 [facility] HEMATOLOGY PTT 32.1 s 22.9 - 05/26 35.8 /2016 [facility] Chest 2 Chest 2 EXAM: Chest 2 views DX 05/26 - views DX views DX - [facility] DATE: 05/26/2016 8:49 AM CDT INDICATION: Coughing Read by: Chato Huff MD Dictated Date/time: 05/26/16 14:19 COMPARISON: 03/04/2013. Electronically Signed by: Chato Huff MD 05/26/16 14:20 FINAL REPORT IMPRESSION: Stable moderately enlarged cardiac silhouette. Postoperative median sternotomy. Atherosclerotic thoracic aorta. No focal consolidation, significant pleural effusion or pneumothorax. Moderate thoracic spondylosis. SL: [id number] BEDSIDE Gluc POC 186 mg/dL 70 - 99 04/26 HI 2Interpretive GLUCOSE [facility] Data: [facility] TESTING Upper Reportable Limit: 200 mg/dL. BEDSIDE Gluc POC 219 mg/dL 70 - 99 04/26 HI 3Interpretive GLUCOSE [facility] Data: [facility] TESTING Upper Reportable Limit: 200 mg/dL. BEDSIDE Gluc POC 201 mg/dL 70 - 99 04/26 HI [facility] TEST[facility] Upper Reportable Limit: 200 mg/dL. BEDSIDE Comment1 Notify 04/26 NA GLUCOSE RN/MD [facility] TESTING BEDSIDE Comment1 Notify 04/26 NA GLUCOSE RN/MD [facility] TESTING BEDSIDE Comment1 Notify 04/25 NA GLUCOSE RN/MD /2012 [facility] TESTING CHEMISTRY Sodium Lvl 144 meq/L 135 - 145 04/25 Normal [facility] CHEMISTRY Chloride Lvl 105 meq/L 95 - 109 04/25 Normal [facility] CHEMISTRY Potassium 3.6 meq/L 3.5 - 5.1 04/25 Normal Lvl [facility] CHEMISTRY eGFR 96 04/25 NA [...] is not recommended in the following populations: [facility] 3m2 Individuals with unstable creatinine [...] - 1.4 04/25 Normal MH Lvl /2013 [facility] CHEMISTRY CO2 28 meq/L 24 - 32 / Normal MH /2012 [facility] CHEMISTRY Calcium Lvl 7.8 mg/dL 8.5 - 10.5 03/ LOW MH /2012 [facility] CHEMISTRY BUN 14 mg/dL 7 - 22 / Normal MH /2012 [facility] CHEMISTRY Glucose Lvl 118 mg/dL 70 - 99 03/ HI 8Interpretive Data: Adult reference range values reflect the clinical guidelines of the [place] [employer]. [facility] CHEMISTRY AGAP 14.6 meq/L 10.0 - 03 Normal MH 20.0 /2012 [facility] HEMATOLOGY Platelet 183 K/CMM 133 - 450 03/ Normal MH /2012 [facility] HEMATOLOGY MCHC 32.4 g/dL 32.0 - 03 Normal MH 36.0 /2012 [facility] HEMATOLOGY RDW 15.7 % 11.5 - 03/ HI MH 14.5 /2012 [facility] HEMATOLOGY MCH 26.8 pg 27.0 - 04/25 LOW MH 31.0 /2012 [facility] HEMATOLOGY MCV 82.8 fL 81.0 - 04/25 Normal MH 99.0 /2012 [facility] HEMATOLOGY MPV 9.9 fL 7.4 - 10.4 / Normal MH /2012 [facility] HEMATOLOGY Hct 29.4 % 36.0 - 04/25 LOW MH 48.0 /2012 [facility] HEMATOLOGY Hgb 9.5 g/dL 12.0 - 03 LOW MH 16.0 /2012 [facility] HEMATOLOGY RBC 3.55 M/CMM 4.20 - 03 LOW MH 5.40 /2012 [facility] HEMATOLOGY WBC 8.9 K/CMM 3.7 - 10.4 / Normal MH /2012 [facility] HEMATOLOGY Segs-Bands # 7.2 K/CMM 1.5 - 8.1 / Normal MH /2012 [facility] HEMATOLOGY Basophils 0.1 % 0.0 - 1.0 03/ Normal MH /2012 [facility] HEMATOLOGY Basophils # 0.0 K/CMM 0.0 - 0.2 / Normal MH /2012 [facility] HEMATOLOGY Eosinophils 0.4 K/CMM 0.0 - 0.5 / Normal MH # /2012 [facility] HEMATOLOGY Monocytes # 0.4 K/CMM 0.0 - 0.8 03/ Normal /2012 [facility] HEMATOLOGY Lymphocytes 0.8 K/CMM 1.0 [...] values reflect the clinical guidelines of the [place] [employer]. [facility] CHEMISTRY BUN 14 mg/dL [...] 9 unit/L 0 - 37 04/24 Normal [facility] CHEMISTRY eGFR 96 04/24 NA [...] is not recommended in the following populations: [facility] 3m2 Individuals with unstable creatinine [...] 0.4 K/CMM 0.0 - 0.8 04/24 Normal [facility] HEMATOLOGY Eosinophils 0.3 K/CMM 0.0 - 0.5 04/24 Normal MH # /2012 [facility] HEMATOLOGY Basophils # 0.0 K/CMM 0.0 - 0.2 04/24 Normal [facility] HEMATOLOGY Eosinophils 3.3 % 0.0 - 4.0 04/24 Normal [facility] HEMATOLOGY Basophils 0.2 % 0.0 - 1.0 04/24 Normal [facility] HEMATOLOGY Segs-Bands # 7.4 K/CMM 1.5 - 8.1 04/24 Normal [facility] HEMATOLOGY Lymphocytes 0.9 K/CMM 1.0 - 5.5 04/24 LOW MH # /2013 [facility] HEMATOLOGY Monocytes 4.7 % 2.0 - 12.0 04/24 Normal [facility] HEMATOLOGY Lymphocytes 10.1 % 20.0 - 04/24 LOW MH 40.0 /2012 [facility] HEMATOLOGY Segs 81.7 % 45.0 - 03 HI MH 75.0 /2012 [facility] HEMATOLOGY MPV 9.8 fL 7.4 - 10.4 04/24 Normal /2012 [facility] HEMATOLOGY MCHC 32.4 g/dL 32.0 - 04/24 Normal MH 36.0 /2012 [facility] HEMATOLOGY RDW 15.8 % 11.5 - 03 HI MH 14.5 /2012 [facility] HEMATOLOGY Platelet 174 K/CMM 133 - 450 03/12 Normal [facility] HEMATOLOGY Hct 29.1 % 36.0 - 04/24 LOW 48.0 /2012 [facility] HEMATOLOGY RBC 3.53 M/CMM 4.20 - 04/24 LOW MH 5.40 /2012 [facility] HEMATOLOGY WBC 9.1 K/CMM 3.7 - 10.4 04/24 Normal [facility] HEMATOLOGY Hgb 9.4 g/dL 12.0 - 04/24 LOW MH 16.0 /2012 [facility] HEMATOLOGY MCH 26.7 pg 27.0 - 04/24 LOW MH 31.0 /2012 [facility] HEMATOLOGY MCV 82.4 fL 81.0 - 04/24 Normal 99.0 [facility] CHEMISTRY Magnesium 2.0 mg/dL 1.8 - 2.4 04/23 Normal Lvl /2012 [facility] CHEMISTRY A/G Ratio 1.0 0.7 - 1.6 04/23 Normal [facility] CHEMISTRY Globulin 2.8 g/dL 2.0 - 4.0 04/23 Normal [facility] CHEMISTRY B/C Ratio 26 6 - 25 04/23 HI MH [facility] CHEMISTRY AGAP 13.8 meq/L 10.0 - 04/23 Normal 20.0 [facility] CHEMISTRY ALT 16 unit/L 0 - 65 04/23 Normal [facility] CHEMISTRY Alk Phos 70 unit/L 39 - 136 04/23 Normal [facility] CHEMISTRY Total 5.5 g/dL 6.4 - 8.4 04/23 LOW Protein [facility] CHEMISTRY Albumin Lvl 2.7 g/dL 3.5 - 5.0 04/23 LOW [facility] CHEMISTRY Bili Total 0.5 mg/dL 0.2 - 1.3 04/23 Normal [facility] CHEMISTRY AST 10 unit/L 0 - 37 04/23 Normal [facility] CHEMISTRY eGFR 96 04/23 NA [...] is not recommended in the following populations: [facility] 3m2 Individuals with unstable creatinine [...] 13 mg/dL 7 - 22 04/23 Normal [facility] CHEMISTRY Creatinine 0.5 mg/dL 0.5 - 1.4 04/23 Normal Lvl [facility] CHEMISTRY Sodium Lvl 146 meq/L 135 - 145 04/23 HI MH [facility] CHEMISTRY Potassium 3.8 meq/L 3.5 - 5.1 04/23 Normal Lvl /2012 [facility] CHEMISTRY Chloride Lvl 108 meq/L 95 - 109 04/23 Normal MH [facility] CHEMISTRY Glucose Lvl 114 mg/dL 70 - 99 04/23 HI 10Interpretive Data: Adult reference range values reflect the clinical guidelines of the [place] [employer]. [facility] CHEMISTRY Calcium Lvl 7.4 mg/dL 8.5 - 10.5 04/23 LOW MH [facility] CHEMISTRY CO2 28 meq/L 24 - 32 04/23 Normal MH /2012 [facility] HEMATOLOGY MPV 9.9 fL 7.4 - 10.4 04/23 Normal MH [facility] HEMATOLOGY Platelet 171 K/CMM 133 - 450 04/23 Normal MH [facility] HEMATOLOGY RDW 15.9 % 11.5 - 03 HI MH 14.5 [facility] HEMATOLOGY MCHC 32.4 g/dL 32.0 - 04/23 Normal MH 36.0 [facility] HEMATOLOGY Hct 30.6 % 36.0 - 03 LOW MH 48.0 /2012 [facility] HEMATOLOGY RBC 3.70 M/CMM 4.20 - 04/23 LOW MH 5.40 /2012 [facility] HEMATOLOGY WBC 11.2 K/CMM 3.7 - 10.4 04/23 HI MH /2012 [facility] HEMATOLOGY Hgb 9.9 g/dL 12.0 - 04/23 LOW MH 16.0 [facility] HEMATOLOGY MCV 82.7 fL 81.0 - 04/23 Normal MH 99.0 /2012 [facility] HEMATOLOGY MCH 26.8 pg 27.0 - 04/23 LOW MH 31.0 [facility] HEMATOLOGY Eosinophils 2.0 % 0.0 - 4.0 04/23 Normal MH /2012 [facility] HEMATOLOGY Monocytes 4.0 % 2.0 - 12.0 04/23 Normal [facility] HEMATOLOGY Basophils 0.1 % 0.0 - 1.0 04/23 Normal [facility] HEMATOLOGY Basophils # 0.0 K/CMM 0.0 - 0.2 04/23 Normal [facility] HEMATOLOGY Eosinophils 0.2 K/CMM 0.0 - 0.5 04/23 Normal # /2012 [facility] HEMATOLOGY Lymphocytes 1.4 K/CMM 1.0 - 5.5 04/23 Normal MH # /2012 [facility] HEMATOLOGY Segs-Bands # 9.1 K/CMM 1.5 - 8.1 04/23 HI MH /2012 [facility] HEMATOLOGY Monocytes # 0.5 K/CMM 0.0 - 0.8 04/23 Normal [facility] HEMATOLOGY Segs 81.5 % 45.0 - 04/23 HI 75.0 /2012 [facility] HEMATOLOGY Lymphocytes 12.4 % 20.0 - 04/23 LOW 40.0 [facility] Microbiolo Culture: 04/23 gy Urine [facility] CHEMISTRY Bili Total 0.4 mg/dL 0.2 - 1.3 04/22 Normal [facility] CHEMISTRY ALT 18 unit/L 0 - 65 04/22 Normal [facility] CHEMISTRY Alk Phos 62 unit/L 39 - 136 04/22 Normal [facility] CHEMISTRY Total 6.1 g/dL 6.4 - 8.4 04/22 LOW [facility] CHEMISTRY AST 14 unit/L 0 - 37 04/22 Normal [facility] CHEMISTRY Albumin Lvl 2.7 g/dL 3.5 - 5.0 04/22 LOW [facility] CHEMISTRY A/G Ratio 0.8 0.7 - 1.6 04/22 Normal [facility] CHEMISTRY Globulin 3.4 g/dL 2.0 - 4.0 04/22 Normal [facility] CHEMISTRY B/C Ratio 14 6 - 25 04/22 Normal [facility] URINALYSIS UA Sq Epi Occasional /LPF Few 04/21 NA [facility] *NA* (04/21/2012 12:27:00) URINALYSIS UA Leuk Est Moderate Negative 04/21 ABN [facility] *ABN* (04/21/2012 12:27:00) URINALYSIS UA WBC 6 /HPF 0 - 5 04/21 HI [facility] URINALYSIS UA RBC 34 /HPF 0 - 2 04/21 HI [facility] URINALYSIS UA CaOx Mey Occasional /HPF None Seen 04/21 [facility] *NA* (04/21/2012 12:27:00) URINALYSIS UA Mucus Few /LPF None Seen 04/21 [facility] *NA* (04/21/2012 12:27:00) URINALYSIS UA Bacteria Occasional /HPF None Seen 04/21 [facility] *NA* (04/21/2012 12:27:00) URINALYSIS UA Bili Negative Negative 04/21 [facility] *NA* (04/21/2012 12:27:00) URINALYSIS UA Blood Moderate Negative 04/21 [facility] *ABN* (04/21/2012 12:27:00) URINALYSIS UA Nitrite Negative Negative 04/21 [facility] (04/21/2012 12:27:00) URINALYSIS UA Glucose Negative mg/dL Negative 04/21 [facility] *NA* (04/21/2012 12:27:00) URINALYSIS UA Ketones 20 mg/dL Negative 04/21 [facility] *ABN* (04/21/2012 12:27:00) URINALYSIS UA <=1.0 0.1 - 1.0 04/21 [facility] Urobilinogen mg/dL /2012 [facility]
*NA*< br/>(04/21 12:27:00) <sup> </sup> URINALYSIS UA Color Ltyellow 04/21 [facility] URINALYSIS UA Protein Negative mg/dL Negative 04/21 Normal [facility] (04/21/2012 12:27:00) URINALYSIS UA Turbidity Clear Clear 04/21 Normal [facility] (04/21/2012 12:27:00) URINALYSIS UA pH 5.0 5.0 - 8.0 04/21 Normal [facility] URINALYSIS UA Spec Grav 1.011 <=1.030 04/21 Normal [facility] CHEMISTRY Phosphorus 2.8 mg/dL 2.5 - 4.5 04/21 Normal [facility] CHEMISTRY Magnesium 1.8 mg/dL 1.8 - 2.4 04/21 Normal [facility] CHEMISTRY Phosphorus 2.9 mg/dL 2.5 - 4.5 04/21 Normal [facility] HEMATOLOGY Plt Morph Normal 04/21 Normal [facility] (04/20/2012 18:11:00) HEMATOLOGY RBC Morph Normal 04/21 Normal [facility] (04/20/2012 18:11:00) BACTERIAL MRSA by [...] result does not exclude colonization or infection. [facility] (04/20/2012 16:00:00) The polymerase chain reaction (PCR) assay detects a proprietary sequence indicative of the integration of the SCCmec cassette into the Staphylococcus aureus chromosome, indicating the presence of MRSA D NA. The assay utilizes FDA cleared IVD reagents. Performance characteristics have been verified by the Molecular Diagnostic Laboratory within the [facility]. The Molecular Diagnostic Labor atory is authorized under the Clinical Laboratory Improvement Amendment of 1988 (CLIA-88) to perform high complexity testing. CHEMISTRY LDL 136 mg/dL 0 - 129 04/20 [place] [facility] CHEMISTRY Chol 211 mg/dL 120 - 200 04/20 [facility] CHEMISTRY Trig 193 mg/dL 0 - 200 04/20 Normal [facility] CHEMISTRY HDL 36 mg/dL >=35 04/20 Normal [facility] CHEMISTRY CHD Risk 5.86 3.90 - 04/20 [facility] 5.80 /2012 [facility] CHEMISTRY TSH 0.631 0.360 - 04/19 Normal uIU/mL 3.740 /2012 [facility] CHEMISTRY Phosphorus 3.2 mg/dL 2.5 - 4.5 04/19 Normal [facility] HEMATOLOGY PTT 35.0 s 22.9 - 03 Normal 14Interpretiv 35.8 /2012 e Data: [facility] Heparin Therapeutic Range: 57 - 92 Seconds HEMATOLOGY PT 14.0 s 12.0 - 03 Normal 14.7 /2012 [facility] HEMATOLOGY INR 1.06 0.85 - [...] 130 unit/L 12 - 191 04/19 Normal [facility] CHEMISTRY CK MB 0.9 ng/mL 0.5 - 3.6 04/19 Normal [facility] CHEMISTRY Troponin-I null 0.00 - 04/19 Normal 0.40 /2012 [facility] CHEMISTRY CK MB Index 0.7 0.0 - 2.5 04/19 Normal [facility] HEMATOLOGY INR 0.95 0.85 - 04/19 Normal 13Interpretive Data: RECOMMENDED RANGES FOR PROTIME INR: 1.17 2.0-3.0 for most medical and surgical thromboembolic states. [facility] 2.5-3.5 for artificial heart valves and recurrent embolism. INR SHOULD BE USED ONLY FOR PATIENTS ON STABLE ANTICOAGULANT THERAPY. HEMATOLOGY PTT 34.0 s 22.9 - 04/19 Normal 15Interpretiv 35.8 /2012 e Data: [facility] Heparin Therapeutic Range: 57 - 92 Seconds HEMATOLOGY PT 12.9 s 12.0 - 04/19 Normal 14.7 [facility] HEMATOLOGY RBC Morph Normal 04/19 Normal [facility] (04/18/2012 21:05:00) HEMATOLOGY Plt Morph Normal 04/19 Normal [facility] (04/18/2012 21:05:00) URINALYSIS UA Nitrite Negative Negative 04/19 Normal [facility] (04/18/2012 21:05:00) URINALYSIS UA Blood Negative Negative 04/19 Normal [facility] (04/18/2012 21:05:00) URINALYSIS UA Bili Negative Negative 04/19 NA [facility] *NA* (04/18/2012 21:05:00) URINALYSIS UA <=1.0 0.1 - 1.0 04/19 [facility] Urobilinogen mg/dL /2012 [facility]
*NA*< br/>(04/18 21:05:00) <sup> </sup> URINALYSIS UA Color Colorless 04/19 [facility] URINALYSIS UA WBC 3 /HPF 0 - 5 04/19 Normal [facility] URINALYSIS UA Sq Epi Occasional /LPF Few 04/19 NA [facility] *NA* (04/18/2012 21:05:00) URINALYSIS UA Bacteria Occasional /HPF None Seen 04/19 NA [facility] *NA* (04/18/2012 21:05:00) URINALYSIS UA RBC null 0 - 2 04/19 Normal [facility] URINALYSIS UA pH 8.0 5.0 - 8.0 04/19 Normal [facility] URINALYSIS UA Leuk Est Small Negative 04/19 ABN [facility] *ABN* (04/18/2012 21:05:00) URINALYSIS UA Ketones Negative mg/dL Negative 04/19 [facility] *NA* (04/18/2012 21:05:00) URINALYSIS UA Glucose Negative mg/dL Negative 04/19 [facility] *NA* (04/18/2012 21:05:00) URINALYSIS UA Protein Negative mg/dL Negative 04/19 Normal [facility] (04/18/2012 21:05:00) URINALYSIS UA Turbidity Clear Clear 04/19 Normal [facility] (04/18/2012 21:05:00) URINALYSIS UA Spec Grav 1.003 <=1.030 04/19 Normal [facility] Microbiolo Culture: 04/19 [facility] Vital Signs Vital Sign Value Date Comments Source Heart Rate 78 06/14/2016 [facility] Respitory Rate 16 06/14/2016 [facility] Temperature Oral (F) 98.4 F 06/14/2016 [facility] Systolic (mm Hg) 144 06/14/2016 [facility] Diastolic (mm Hg) 84 06/14/2016 [facility] Systolic (mm Hg) 140 06/14/2016 [facility] Diastolic (mm Hg) 80 06/14/2016 [facility] Respitory Rate 16 06/14/2016 [facility] Heart Rate 78 06/14/2016 [facility] Temperature Oral (F) 98.8 F 06/14/2016 [facility] Systolic (mm Hg) 136 06/14/2016 [facility] Diastolic (mm Hg) 75 06/14/2016 [facility] Respitory Rate 16 06/14/2016 [facility] Heart Rate 78 06/14/2016 [facility] Temperature Oral (F) 98.2 F 06/14/2016 [facility] Height 152.4 cm 06/08/2016 [facility] Weight 66.818 06/08/2016 [facility] BMI Calculated 28.77 06/08/2016 [facility] Respitory Rate 15 06/03/2016 [facility] Systolic (mm Hg) 150 06/03/2016 [facility] Diastolic (mm Hg) 51 06/03/2016 [facility] Systolic (mm Hg) 163 06/03/2016 [facility] Diastolic (mm Hg) 54 06/03/2016 [facility] Systolic (mm Hg) 143 06/03/2016 [facility] Diastolic (mm Hg) 62 06/03/2016 [facility] Respitory Rate 14 06/03/2016 [facility] Respitory Rate 18 06/03/2016 [facility] Temperature Oral (F) 98.4 F 05/26/2016 [facility] Heart Rate 60 05/26/2016 [facility] Weight 68.636 05/26/2016 [facility] BMI Calculated 29.55 05/26/2016 [facility] Height 152.4 cm 05/26/2016 [facility] Systolic (mm Hg) 162 04/26/2012 [facility] Diastolic (mm Hg) 74 04/26/2012 [facility] Systolic (mm Hg) 183 04/26/2012 [facility] Diastolic (mm Hg) 72 04/26/2012 [facility] Temperature Oral (F) 97.1 F 04/26/2012 [facility] Diastolic (mm Hg) 78 04/26/2012 [facility] Systolic (mm Hg) 185 04/26/2012 [facility] Respitory Rate 18 04/26/2012 [facility] Heart Rate 72 04/26/2012 [facility] Respitory Rate 20 04/26/2012 [facility] Heart Rate 84 04/26/2012 [facility] Temperature Oral (F) 97.9 F 04/26/2012 [facility] Respitory Rate 16 04/26/2012 [facility] Heart Rate 59 04/26/2012 [facility] Temperature Oral (F) 98.3 F 04/26/2012 [facility] Weight 69.091 04/20/2012 [facility] Height 152.4 cm 04/19/2012 [facility] Weight 68.182 04/19/2012 [facility] Encounters Location Location Encounter Encounter Reason Attending ADM DC Status Source Details Type Number For Provider Date Date Visit Outpatient [id number] 433.10, LUIS 04/18 Active [facility]OTID [place] [facility] Inpatient [id number] CAROTID KIP 04/19 04/26 Active [facility] YADIRA /2012 [facility] Day Surgery [id number] Luis 06/03 06/03 Christopher Burch /2016 [facility] Inpatient [id number] Luis 06/08 06/14 Christopher Burch /2016 [facility] [id number] 433.11/15 LUIS Active [facility] [address] [facility] Procedures Procedure Code Date Perfomer Comments Source Bypass<sup>1</sup> [id number] 2004 [facility] Carotid [id number] [facility] endarterectomy CEA - Carotid [id number] [facility] endarterectomy Placement of stent [id number] [facility] in cardiac conduit Stent placement [id number] [facility] Bypass [id number] [facility]
--- OUTSIDE RECORDS SUMMARY | 2018-07-03 08:16 | XMS REPORT | CCD ---
:1940 Author Organization [facility] Care Team Providers Name Role Phone Luis Burch Referring Provider Allergies, Adverse Reactions, Alerts Substance Reaction Status iodine Active Problem List Condition Effective Dates Status DM - Diabetes mellitus Resolved Hypercholesterolemia Resolved Hypertension Resolved Immunizations Vaccine Date Status Hx pneumococcal vaccine 10/15/2011 Auth (Verified) influenza virus vaccine, inactivated 01/14/2012 Auth (Verified)
--- OUTSIDE RECORDS SUMMARY | 2018-07-03 08:17 | XMS REPORT | CCD ---
:1940 Author Organization [facility] Care Team Providers Name [...] mg, 1 supp, Route: 04/20/2012 04/26/2012 Discontinued IN, Drug form: SUPP, Q4H, PRN Fever, Start [...] kg (04/19/2012 23:54:00) (04/18/2012 19:59:00) 1Result Comment: [id number] Comment: manual Results BACTERIAL - SEROLOGY Most [...] by the Molecular Diagnostic Laboratory within the [facility]. The Molecular Diagnostic Laboratory is authorized under [...] values reflect the clinical guidelines of the [place] [employer].9Interpretive Data: Adult reference range values reflect the clinical guidelines of the [place] [employer].10Interpretive Data: Adult reference range values reflect the clinical guidelines of the [place] [employer].11Interpretive Data: Elevated results are in [...] Data: Heparin Therapeutic Range: 57 - 92 [id number] Data: Heparin Therapeutic Range: 57 - 92 Seconds Microbiology Reports PROCEDURE:Culture: Urine STATUS: Auth (Verified) BODY SITE: COLLECTED DATE/TIME: 04/22/2012 19:40:07 SOURCE: Urine, Vivar FREE TEXT SOURCE: FINAL REPORTS Final ReportNo GrowthPRELIMINARY REPORTS Preliminary ReportNo Growth; Holding PROCEDURE:Culture: Urine STATUS: Auth (Verified) BODY SITE: COLLECTED DATE/TIME: 04/18/2012 21:05:00 SOURCE: Urine, Clean Catch FREE TEXT SOURCE: FINAL REPORTS Final Vljkea69,000 - 50,000 CFU/mL Skin [facility] PRELIMINARY REPORTS Preliminary ReportNo Growth; Holding Procedures Procedures Date Related Diagnosis Bypass
--- OUTSIDE RECORDS SUMMARY | 2018-07-03 08:18 | XMS REPORT ---
[...] Start End Status Dosage System Date Hyzaar [facility] 31947845547 100-25 MG Active 1 tablet Orally Once a day GlipiZIDE [facility] 55071911459 5 MG Orally June 20, Active 1 tablet Once a day 2017 Atorvastatin [facility] 43379370305 20MG Active TAKE ONE Calcium TABLET BY MOUTH ONCE DAILY Aspir-81 [facility] 85588344769 81 MG Orally Active 1 tablet Once a day Metoprolol [facility] 51906789232 50MG Active TAKE ONE Tartrate TABLET BY MOUTH TWICE DAILY Plavix [facility] 12421313065 75 MG Orally Active 1 tablet Once a day Clopidogrel [facility] 65051186204 75MG Active TAKE ONE Bisulfate TABLET BY MOUTH ONCE DAILY Losartan [facility] 54306139707 100-25 MG Active TAKE ONE Potassium-HCTZ TABLET BY MOUTH ONCE DAILY Celexa [facility] 61689937235 10 MG Orally Active 1 tablet Once a day Pantoprazole [facility] 39914873393 40 MG Orally August 21, Active 1 tablet Sodium Once a day 2017 Cetirizine HCl [facility] 21494880948 10MG Active TAKE ONE TABLET BY MOUTH ONCE DAILY Pentoxifylline ER [facility] 82340948592 400 MG Orally Active 1 tablet three times a with meals day Flonase [facility] 44255105990 50 MCG/ACT Oct 11, Active 1 spray in Nasally Once a 2017 each day nostril Citalopram [facility] 46618135589 10 MG Active TAKE ONE Hydrobromide TABLET BY MOUTH ONCE DAILY Baclofen [facility] 13946363456 10 MG Orally Active 1 tablet twice a day with food or milk Vitamin D [facility] 18585591665 99064 UNIT Active 1 capsule (Ergocalciferol) Orally Amoxicillin [facility] 54885463146 500 MG Orally Oct 11, Active 1 capsule every 8 hrs 2017 Results No Known Results Summary Purpose eClinicalWorks Submission
--- OUTSIDE RECORDS SUMMARY | 2018-07-03 08:18 | XMS REPORT ---
:1940 Author Organization [employer] Care Team Providers Name Role Phone Tripp, Na Provider Role Unavailable Allergies No Known Allergies Problems Problem Type Condition Code Onset Dates Condition Status Problem Cataract H26.9 Active Problem GERD (gastroesophageal reflux K21.9 Active disease) Problem Depression with anxiety F41.8 Active Problem PAD (peripheral artery disease) I73.9 Active Problem Claudication I73.9 Active Problem Glaucoma H40.9 Active Problem Controlled type 2 diabetes mellitus E11.51 Active with diabetic peripheral angiopathy without gangrene, without long-term current use of insulin Problem DJD (degenerative joint disease) M19.90 Active Problem Type 2 diabetes mellitus with other E11.29 Active diabetic kidney complication Problem Pain of left foot M79.672 Active Problem Diabetes E11.9 Active Problem Vitamin B12 deficiency E53.8 Active Problem Hypertensive urgency I16.0 Active Problem Vitamin D deficiency E55.9 Active Problem 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 Active Problem Degeneration of lumbosacral M51.37 Active intervertebral disc Problem Hair loss L65.9 Active Problem Calcaneal spur, left M77.32 Active Problem Carotid artery occlusion I65.29 Active Problem Anemia, blood loss D50.0 Active Problem Hypertension I10 Active Problem Ulcer L98.499 Active Problem Hyperlipidemia, mixed E78.2 Active Problem Hammer toe M20.40 Active Problem Pain R52 Active Problem Allergic rhinitis, seasonal J30.2 Active Medications Medication Code Code Instructions Start End Status Dosage System Date Date Alendronate [facility] 29011265905 70 MG Orally Mar 12, Active 1 tablet Sodium once a week 2018 Results No Known Results Summary Purpose eClinicalWorks Submission
--- OUTSIDE RECORDS SUMMARY | 2018-07-03 08:18 | XMS REPORT ---
[...] Problem Allergic rhinitis, seasonal J30.2 Active Medications No Known Medications Results No Known Results Summary Purpose eClinicalWorks Submission
--- OUTSIDE RECORDS SUMMARY | 2018-07-03 08:18 | XMS REPORT ---
[...] Status Dosage System Date Date Pentoxifylline ER [facility] 22594214653 400 MG Orally Active 1 tablet three times a with meals day Atorvastatin [facility] 96345132019 20MG Active TAKE ONE Calcium TABLET BY MOUTH ONCE DAILY Plavix [facility] 71066471669 75 MG Orally Active 1 tablet Once a day Celexa [facility] 68717901517 10 MG Orally Active 1 tablet Once a day Cetirizine HCl [facility] 11240722308 10MG Active TAKE ONE TABLET BY MOUTH ONCE DAILY Clopidogrel [facility] 90124270824 75MG Active TAKE ONE Bisulfate TABLET BY MOUTH ONCE DAILY GlipiZIDE [facility] 31444981459 5 MG Orally June 20, Active 1 tablet Once a day 2017 Pantoprazole [facility] 31625674814 40 MG Orally August 21, Active 1 tablet Sodium Once a day 2017 Aspir-81 [facility] 32039052587 81 MG Orally Active 1 tablet Once a day Hyzaar [facility] 19936983042 100-25 MG Active 1 tablet Orally Once a day Metoprolol [facility] 57385037697 50MG Active TAKE ONE Tartrate TABLET BY MOUTH TWICE DAILY Vitamin D [facility] 33134701973 48501 UNIT Active 1 capsule (Ergocalciferol) Orally Baclofen [facility] 25608729543 10 MG Orally Active 1 tablet twice a day with food or milk Metoprolol [facility] 50626920405 50 MG Orally Active 1 tablet Tartrate Twice a day with food Results No Known Results Summary Purpose eClinicalWorks Submission
--- OUTSIDE RECORDS SUMMARY | 2018-07-03 08:18 | XMS REPORT ---
:1940 Author Organization eClinicalWorks Care Team Providers Name Role Phone Tripp, Na Provider Role Unavailable Allergies, Adverse Reactions, Alerts Substance Reaction Event Type Metformin HCl Info Not Available Drug Allergy Levaquin Info Not Available Drug Allergy Problems Problem Type Condition Code Onset Dates Condition Status Assessment Herpes zoster without complication B02.9 Active Problem Cataract H26.9 Active Problem GERD [...] Instructions Start End Status Dosage System Date Alicia [facility] 06516702947 100-25 MG Active 1 tablet Orally Once a day Valacyclovir HCl [facility] 84599150103 1 GM Orally Dec Active 1 tablet two times a [address] [facility] 91056333566 5 Orally Once Active 1 tablet a day Pantoprazole [facility] 08486912162 40 MG Orally Active 1 tablet Sodium Once a day Cetirizine HCl [facility] 80479316843 10MG Active TAKE ONE TABLET BY MOUTH ONCE DAILY Pentoxifylline ER [facility] 20552956329 400 MG Orally Active 1 tablet with three times a meals day -[address] [facility] 66940045801 81 MG Orally Active 1 tablet Once a day Flonase [facility] 03579561525 50 MCG/ACT Oct 11, Active 1 spray in Nasally Once a 2017 each nostril day Atorvastatin [facility] 51118199278 20MG Active TAKE ONE Calcium TABLET BY MOUTH ONCE DAILY Clopidogrel [facility] 41316371473 75MG Active TAKE ONE Bisulfate TABLET BY MOUTH ONCE DAILY Amoxicillin [facility] 15348550662 500 MG Orally Oct 11, Active 1 capsule every 8 hrs [address] [facility] 61509766526 10 MG Orally Active 1 tablet with twice a day food or milk Citalopram [facility] 22341081964 10 MG Active TAKE ONE Hydrobromide TABLET BY MOUTH ONCE DAILY Plavix [facility] 25454302749 75 MG Orally Active 1 tablet Once a day Lidocaine [facility] 95725626170 5 % Externally Active 1 application Three times a to affected day area as needed Losartan [facility] 53587672538 100-25 MG Active TAKE ONE Potassium-HCTZ TABLET BY MOUTH ONCE DAILY GlipiZIDE [facility] 07973572341 5 MG Orally June 20, Active 1 tablet twice a day 2017 with food Metoprolol [facility] 72001460911 50MG Active TAKE ONE Tartrate TABLET BY MOUTH TWICE DAILY Celexa [facility] 88341379890 10 MG Orally Active 1 tablet Once a day Vitamin D [facility] 23155188576 76297 UNIT Active 1 capsule (Ergocalciferol) Orally Results No Known Results Summary Purpose eClinicalWorks Submission
--- OUTSIDE RECORDS SUMMARY | 2018-07-03 08:19 | XMS REPORT ---
[...] Medications Medication Code Code Instructions Start End Date Status Dosage System Date Albuterol [facility] 75115010369 108 (90 Base) May 04, Active 2 puffs Sulfate HFA MCG/ACT 2019 as needed Inhalation every 4 hrs Results No Known Results Summary Purpose [email or web address] Submission
--- OUTSIDE RECORDS SUMMARY | 2018-07-03 08:19 | XMS REPORT ---
:1940 Author Organization eClinicalWorks Care Team Providers Name Role Phone Tripp, Na Provider Role Unavailable Allergies, Adverse Reactions, Alerts Substance Reaction Event Type Metformin HCl Info Not Available Drug Allergy Levaquin Info Not Available Drug Allergy Problems Problem Type Condition Code Onset Dates Condition Status Assessment Type 2 diabetes mellitus with other E11.29 Active diabetic kidney complication Assessment Hypertension I10 Active Assessment Dermatitis of left foot L30.9 Active Problem Cataract H26.9 Active Problem GERD (gastroesophageal reflux K21.9 Active disease) Problem Claudication I73.9 Active Problem Vitamin D deficiency E55.9 Active Problem Vitamin B12 deficiency E53.8 Active Problem Diabetes E11.9 Active Problem Degeneration of lumbosacral M51.37 Active intervertebral disc Problem 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 Active Problem Hypertension I10 Active Problem DJD (degenerative joint disease) M19.90 Active Problem Calcaneal spur, left M77.32 Active Problem Hair loss L65.9 Active Problem Seasonal allergies J30.2 Active Problem Osteoporosis without current M81.0 Active pathological fracture, unspecified osteoporosis type Problem Glaucoma H40.9 Active Problem PAD (peripheral artery disease) I73.9 Active Assessment Osteoporosis without current M81.0 Active pathological fracture, unspecified osteoporosis type Problem Onychomycosis B35.1 Active Problem Depression with anxiety F41.8 Active Assessment Depression with anxiety F41.8 Active Problem Type 2 diabetes mellitus with other E11.29 Active diabetic kidney complication Problem Pain of left foot M79.672 Active Problem Dermatitis of left foot L30.9 Active Problem Hypertensive urgency I16.0 Active Assessment PAD (peripheral artery disease) I73.9 Active Problem Hyperlipidemia, mixed E78.2 Active Assessment Hyperlipidemia, mixed E78.2 Active Problem Hammer toe M20.40 Active Assessment Calcaneal spur, left M77.32 Active Problem Pain R52 Active Assessment 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 Active Problem Allergic rhinitis, seasonal J30.2 Active Assessment Seasonal allergies J30.2 Active Problem Anemia, blood loss D50.0 Active Assessment Onychomycosis B35.1 Active Problem Controlled type 2 diabetes mellitus E11.51 Active with diabetic peripheral angiopathy without gangrene, without long-term current use of insulin Problem Ulcer L98.499 Active Problem Carotid artery occlusion I65.29 Active Medications Medication Code Code Instructions Start End Status Dosage System Date Date Flonase [facility] 50685320306 50 MCG/ACT Oct 11, Active 1 spray in Nasally Once a 2018 each nostril day Triamcinolone [facility] 00031204793 0.1 % Active 1 application Acetonide Externally to affected Twice a day area Metoprolol [facility] 91250220063 50 MG Orally Active 1 tablet with Tartrate Twice a day food Metformin HCl ND 30910376840 500 MG Orally Active 1 tablet with Once a day a meal Klor-Con M10 [facility] 59254941670 10 MEQ Orally Active 1 tablet with Twice a day food Aspir-81 [facility] 26483714879 81 MG Orally Active 1 tablet Once a day GlipiZIDE [facility] 90303347258 5 Orally Once Active 1 tablet a day Cetirizine HCl [facility] 44498296841 10MG Active TAKE ONE TABLET BY MOUTH ONCE DAILY Pentoxifylline ER [facility] 27968472243 400 MG Orally Active 1 tablet with three times a meals day Ketoconazole [facility] 16110745937 2 % Externally Active 1 application twice a day to affected area Pantoprazole [facility] 61640516162 40 MG Orally Active 1 tablet Sodium Once a day Hyzaar [facility] 18369908429 100-25 MG Active 1 tablet Orally Once a day Atorvastatin [facility] 38820825272 20MG Orally Active 1 tablet at Calcium Once a day bedtime Plavix [facility] 76159509743 75 MG Orally Active 1 tablet Once a day Benzonatate [facility] 57834644535 100 MG Orally May Active 1 capsule as two times a 25, needed day 2018 Alendronate [facility] 88908709951 70 MG Orally Mar 12, Active 1 tablet Sodium once a week 2018 Citalopram [facility] 51863337284 10 MG Active TAKE ONE Hydrobromide TABLET BY MOUTH ONCE DAILY Results No Known Results Summary Purpose eClinicalWorks Submission
--- OUTSIDE RECORDS SUMMARY | 2018-07-03 08:19 | XMS REPORT ---
:1940 Author Organization eClinicalWorks Care Team Providers Name Role Phone Tripp, Na Provider Role Unavailable Allergies, Adverse Reactions, Alerts Substance Reaction Event Type Metformin HCl Info Not Available Drug Allergy Levaquin Info Not Available Drug Allergy Problems Problem Type Condition Code Onset Dates Condition Status Assessment Hypertension I10 Active Assessment PAD (peripheral artery disease) I73.9 Active Assessment Mastodynia N64.4 Active Assessment Onychomycosis B35.1 Active Assessment Unspecified lump in the left N63.20 Active breast, unspecified quadrant Assessment Calcaneal spur, left M77.32 Active Assessment Dermatitis of left foot L30.9 [...] Active Problem Calcaneal spur, left M77.32 Active Assessment Hyperlipidemia, mixed E78.2 Active Problem Carotid artery occlusion I65.29 Active Assessment Type 2 diabetes mellitus with other E11.29 Active diabetic kidney complication Problem Anemia, blood loss D50.0 Active Problem Hypertension I10 Active Assessment 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 Active Problem Ulcer L98.499 Active Problem Hyperlipidemia, mixed E78.2 Active Problem Hammer toe M20.40 Active Problem Pain R52 Active Problem Allergic rhinitis, seasonal J30.2 Active Medications Medication Code Code Instructions Start End Status Dosage System Date Date Atorvastatin [facility] 99823971613 20MG Active TAKE ONE Calcium TABLET BY MOUTH ONCE DAILY Atorvastatin [facility] 48052279381 20MG Active TAKE ONE Calcium TABLET BY MOUTH ONCE DAILY Metoprolol [facility] 80417364242 50MG Active TAKE ONE Tartrate TABLET BY MOUTH TWICE DAILY Pentoxifylline ER [facility] 04887650317 400 MG Orally Active 1 tablet with three times a meals day Vitamin D [facility] 02498413493 76456 UNIT Active 1 capsule (Ergocalciferol) Orally Plavix [facility] 83214302234 75 MG Orally Active 1 tablet Once a day Amoxicillin [facility] 33105643391 500 MG Orally Oct 11, Active 1 capsule every 8 hrs 2018 Aspir-81 [facility] 06338283302 81 MG Orally Active 1 tablet Once a day GlipiZIDE [facility] 58169664898 5 Orally Once Active 1 tablet a day Pantoprazole [facility] 97536012585 40 MG Orally Active 1 tablet Sodium Once a day Baclofen [facility] 03270661139 10 MG Orally Active 1 tablet with twice a day food or milk Triamcinolone [facility] 88683638829 0.1 % Mar 05, Active 1 application Acetonide Externally 2018 to affected Twice a day area Hyzaar [facility] 06831640957 100-25 MG Active 1 tablet Orally Once a day Flonase [facility] 67318254031 50 MCG/ACT Oct 11, Active 1 spray in Nasally Once a 2017 each nostril day Cetirizine HCl [facility] 77857169121 10MG Active TAKE ONE TABLET BY MOUTH ONCE DAILY Clopidogrel [facility] 47084772240 75MG Active TAKE ONE Bisulfate TABLET BY MOUTH ONCE DAILY GlipiZIDE [facility] 00751728393 5 MG Orally June 20, Active 1 tablet twice a day 2017 with food Ketoconazole ND 22829227585 2 % Externally Mar 05, Active 1 application twice a day 2018 to affected area Metoprolol [facility] 17300724498 50 MG Orally Active 1 tablet with Tartrate Twice a day food Lidocaine [facility] 74807286629 5 % Externally Active 1 application Three times a to affected day area as needed Celexa [facility] 46079360881 10 MG Orally Active 1 tablet Once a day Losartan [facility] 83992892426 100-25 MG Active TAKE ONE Potassium-HCTZ TABLET BY MOUTH ONCE DAILY Citalopram [facility] 55762422162 10 MG Active TAKE ONE Hydrobromide TABLET BY MOUTH ONCE DAILY Results No Known Results Summary Purpose eClinicalWorks Submission
[2018-07-03] MEDS ORDERED: LIDOCAINE VISCOUS 2% SOLN 15 ML UDC ONE (08:39)
[2018-07-03] MEDS ORDERED: MAGNE/ALUM HYDROXD 30 ML UCUP ONE (08:39)
[2018-07-03 08:49] LABS: Absolute Lymphocytes (CBC) 1.1 K/uL (0.7-4.9); Absolute Monocytes 0.4 K/uL (0.1-1.3); Basophils % 0.3 % (0-1.3); Eosinophils % 0.9 % (0-4.4); Hematocrit 37.4 % (36.0-45.0); Lymphocytes % 10.8 % (15.3-44.8); MPV 10.3 fL (7.6-11.3); Monocytes % 3.4 % (3.3-12.3); RBC Red Blood Cell Count 4.44 M/uL (3.86-4.86)
[2018-07-03 09:09] LABS: ALT/SGPT 33 U/L (12-78); AST/SGOT 42 U/L (15-37); Albumin 3.8 g/dL (3.4-5.0); Alkaline Phosphatase 151 U/L (45-117); BUN Blood Urea Nitrogen 23 mg/dL (7-18); Bicarbonate 29 mmol/L (21-32); Bilirubin Direct 0.4 mg/dL (0-0.2); Bilirubin Total 0.8 mg/dL (0.2-1.0); Glucose Level 239 mg/dL (74-106); Lipase 210 U/L (73-393); Potassium 3.4 mmol/L (3.5-5.1); Protein, Total 8.2 g/dL (6.4-8.2); Sodium Level 142 mmol/L (136-145); Troponin (Emerg Dept Use Only) < 0.02 ng/mL (0.0-0.045)
--- NOTE | 2018-07-03 10:20 | RAD REPORT ---
EXAM DESCRIPTION: CT - Abdomen Pelvis Wo Contrast - 07/03/2018 10:08 am CLINICAL HISTORY: Abdominal pain. right flank/abd pain, oral contrast only COMPARISON: Abdomen Exam Limited dated 07/03/2018 TECHNIQUE: CT imaging of the abdomen and pelvis was performed without contrast. Solid organ, bowel a nd vascular assessment is limited due to lack of IV and oral contrast. All CT scans are performed using dose optimization technique as appropriate and may include automated exposure control or mA/KV adjustment according to patient size. FINDINGS: The lower lung sheets are clear. The liver, spleen, pancreas, adrenal glands and kidneys are within normal limits for a limited non-co ntrast examination.Mild gallbladder distention noted. No bowel obstruction, free air, free fluid or abscess. Stool is retained in the rectum. The appendix is normal. Prominent lower lumbar degenerative changes. IMPRESSION: No acute intra-abdominal or pelvic findings. Gallbladder distension noted. A limited non-contrast examination was performed as detailed.
--- NOTE | 2018-07-03 10:34 | RAD REPORT ---
EXAM DESCRIPTION: US - Abdomen Exam Limited - 07/03/2018 9:53 am COMPARISON: None. FINDINGS: Gallbladder size is normal. Multiple tiny gallstones are seen layering in the dependent po rtion of the gallbladder wall. Gallbladder wall is minimally thickened. Trace amount of pericholecyst ic fluid is seen. Common bile duct is normal with no common duct stone identified. IMPRESSION: Multiple punctate mobile gallstones with minimal wall thickening and trace pericholecyst ic fluid. No duct stone or duct dilatation seen.
--- NOTE | 2018-07-03 10:39 | RAD REPORT ---
EXAM DESCRIPTION: RAD - Chest Single View - 07/03/2018 9:54 am CLINICAL HISTORY: Chest pain, upper back pain COMPARISON: December 2017 TECHNIQUE: AP portable chest image was obtained 0948 hours . FINDINGS: No focal mass or consolidation. Interstitial markings are mildly prominent as a baseline a nd are similar to comparison. No vascular engorgement. Sternotomy wires are in place. Heart and vascu lature are normal. No measurable pleural effusion and no pneumothorax. No acute bony abnormality seen . No acute aortic findings suspected. IMPRESSION: No acute cardiopulmonary process. No significant change from comparison.
--- NOTE | 2018-07-03 11:06 | ER ---
Nurse's Notes [facility] Name: Eva Haskins Age: 77 yrs Sex: Female : 1940 Arrival Date: 07/03/2018 Time: 08:05 Bed 5 Private MD: [place] Tripp Diagnosis: Cholelithiasis;Cholecystitis, unspecified Presentation: 07/03 08:09 Presenting complaint: Patient states: upper back pain, chest pain, and upper abd pain aa5 that began today 0400. Pt states "this morning when I was walking to the restroom I felt like I was going to pass out". Pt currently denies feeling dizzy or lightheaded. 08:09 Transition of care: patient was not received from another setting of care. Onset of aa5 symptoms was June 2018. Risk Assessment: Do you want to hurt yourself or someone else? Patient reports no desire to harm self or others. Care prior to arrival: None. 08:09 Acuity: DEVON 2 aa5 08:09 Method Of Arrival: Ambulatory aa5 08:42 Initial Sepsis Screen: Does the patient meet any 2 criteria? No. Patient's initial tw2 sepsis screen is negative. Does the patient have a suspected source of infection? No. Patient's initial sepsis screen is negative. Historical: - Allergies: 08:18 Iodine; tw2 08:18 Levofloxacin; tw2 - Home Meds: 08:18 Glipizide Oral [Active]; Metoprolol Tartrate Oral [Active]; lisinopril Oral [Active]; tw2 - PMHx: 08:18 Diabetes - NIDDM; Hyperlipidemia; Hypertension; Myocardial infarction; TIA; tw2 - PSHx: 08:18 Heart stents; triple bypass sx; tw2 - Immunization history:: Adult Immunizations up to date, Pneumococcal vaccine is up to date, Flu vaccine is up to date. - Social history:: Smoking status: Patient/guardian denies using tobacco. - Ebola Screening: : Patient denies travel to an Ebola-affected area in the 21 days before illness onset. - Family history:: not pertinent. - Hospitalizations: : No recent hospitalization is reported. Screenin:16 Abuse screen: Denies threats or abuse. Nutritional screening: No deficits noted. tw2 Tuberculosis screening: No symptoms or risk factors identified. Fall Risk Secondary diagnosis (15 points) impaired mobility. Assessment: 08:40 General: Appears in no apparent distress. well groomed, Behavior is calm, cooperative, tw2 appropriate for age. Pain: Complains of pain in abdomen. Neuro: Level of Consciousness is awake, alert, obeys commands, Oriented to person, place, time, situation. Cardiovascular: Heart tones S1 S2 Patient's skin is warm and dry. Respiratory: Airway is patent Respiratory effort is even, unlabored, Respiratory pattern is regular, symmetrical, Breath sounds are clear bilaterally. GI: Bowel sounds present X 4 quads. Abd is soft X 4 quads Reports lower abdominal pain, upper abdominal pain. : No signs and/or symptoms were reported regarding the genitourinary system. EENT: No signs and/or symptoms were reported regarding the EENT system. Derm: No signs and/or symptoms reported regarding the dermatologic system. Skin is intact, is healthy with good turgor, Skin is dry. Musculoskeletal: Range of motion: intact in all extremities. 09:08 Reassessment: pt finished her PO contrast, spoke with Annette. sg 09:32 Reassessment: Patient appears in no apparent distress at this time. No changes from tw2 previously documented assessment. Patient and/or family updated on plan of care and expected duration. Pain level reassessed. Patient is alert, oriented x 3, equal unlabored respirations, skin warm/dry/pink. 10:30 Reassessment: Patient appears in no apparent distress at this time. No changes from tw2 previously documented assessment. Patient and/or family updated on plan of care and expected duration. Pain level reassessed. Patient is alert, oriented x 3, equal unlabored respirations, skin warm/dry/pink. 11:20 Reassessment: Patient appears in no apparent distress at this time. No changes from tw2 previously documented assessment. Patient and/or family updated on plan of care and expected duration. Pain level reassessed. Patient is alert, oriented x 3, equal unlabored respirations, skin warm/dry/pink. 12:20 Reassessment: Patient appears in no apparent distress at this time. No changes from tw2 previously documented assessment. Patient and/or family updated on plan of care and expected duration. Pain level reassessed. Patient is alert, oriented x 3, equal unlabored respirations, skin warm/dry/pink. 13:50 Reassessment: Patient appears in no apparent distress at this time. No changes from tw2 previously documented assessment. Patient and/or family updated on plan of care and expected duration. Pain level reassessed. Patient is alert, oriented x 3, equal unlabored respirations, skin warm/dry/pink. Vital Signs: 08:10 BP 182 / 66; Pulse 69; Resp 16 S; Pulse Ox 99% on R/A; Weight 68.04 kg (R); Height 5 aa5 ft. 0 in. (152.40 cm) (R); Pain 8/10; 08:41 Temp 98.6(TE); tw2 09:32 BP 168 / 63; Pulse 65; Resp 17; Pulse Ox 99% on R/A; tw2 10:30 BP 159 / 67; Pulse 72; Resp 17; Pulse Ox 99% on R/A; tw2 11:09 BP 159 / 90; Pulse 70; Resp 17; Pulse Ox 97% on R/A; tw2 12:30 BP 162 / 71; Pulse 74; Resp 17; Pulse Ox 99% ; tw2 13:30 BP 166 / 74; Pulse 71; Resp 17; Pulse Ox 99% on R/A; tw2 08:10 Body Mass Index 29.29 (68.04 kg, 152.40 cm) aa5 ED Course: 08:05 Patient arrived in ED. rg4 08:06 [place] Tripp MD is Private Physician. rg4 08:08 Arm band placed on. aa5 08:08 Patient placed in an exam room, on a stretcher. aa5 08:15 Benja Cheek MD is Attending Physician. rn 08:16 Lissa Briggs RN is Primary Nurse. tw2 08:18 Bed in low position. Call light in reach. pvc monitor on. Pulse ox on. NIBP on. tw2 08:21 Triage completed. aa5 08:35 Missed attempt(s): 22 gauge in left antecubital area. Bleeding controlled, band aid tw2 applied, catheter tip intact. Inserted saline lock: 22 gauge in left antecubital area, using aseptic technique. Blood collected. 09:06 EKG done, by salvage engineering technician. reviewed by Benja Cheek MD. at1 09:53 US Abdomen Limited In Process Unspecified. EDMS 09:54 XRAY Chest (1 view) In Process Unspecified. EDMS 10:05 CT completed. Patient tolerated procedure well. Patient moved to CT via wheelchair. Patient moved back from CT. 10:08 Abdomen In Process Unspecified. EDMS 11:05 Marley Martinez MD is Hospitalizing Provider. rn 13:53 No provider procedures requiring assistance completed. Patient admitted, IV remains in tw2 place. Administered Medications: 08:30 Drug: GI Cocktail without - (Maalox Suspension 30 ml, Lidocaine Liquid 2 % 15 tw2 ml) Route: PO; 09:36 Follow up: Response: No adverse reaction tw2 11:12 Drug: Rocephin - (cefTRIAXone) 1 grams Route: IVPB; Infused Over: 5 mins; Site: left tw2 antecubital; 11:16 Follow up: Response: No adverse reaction; IV Status: Completed infusion tw2 11:18 Drug: Flagyl 500 mg Volume: 100 ml; Route: IVPB; Rate: 200 ml/hr; Infused Over: 30 tw2 mins; Site: left antecubital; 11:50 Follow up: Response: No adverse reaction; IV Status: Completed infusion tw2 Outcome: 11:06 Decision to Hospitalize by Provider. rn 13:53 Patient left the ED. tw2 13:53 Admitted to Med/surg accompanied by tech, via wheelchair, with chart. tw2 13:53 Condition: stable 13:53 Instructed on the need for admit. Signatures: Dispatcher [employer] EDMS Camden Garcia RN RN sg Jones, Susan sj Nieto, Roman, MD MD rn Calderon, Audri, RN RN aa5 Haritha Garza, fixed income portfolio manager EKG Tat1 Lissa Briggs RN RN tw2 Madonna Weems rg4 Corrections: (The following items were deleted from the chart) 08:18 08:16 Arm band placed on tw2 aa5 08:22 08:17 Social history: Smoking status: aa5 08:22 08:17 Immunization history: Adult Immunizations 2 aa5 11:19 11:12 Rocephin - (cefTRIAXone) 1 grams IVPB in left antecubital over 30 mins tw2 tw2
--- NOTE | 2018-07-03 11:06 | EDPHYS ---
Physician Documentation [facility] Name: Eva Haskins Age: 77 yrs Sex: Female : 1940 Arrival Date: 07/03/2018 Time: 08:05 Bed 5 Private MD: [place] Tripp ED Physician Benja Cheek HPI: 07/03 08:24 This 77 yrs old Female presents to ER via Ambulatory with complaints of rn Abdominal Pain, Back Pain. 08:24 The patient presents with pain that is acute. The symptoms are located in the lumbar rn area and right mid back. Onset: The symptoms/episode began/occurred this morning. The pain radiates to the abdomen. Associated signs and symptoms: Pertinent positives: abdominal pain, Pertinent negatives: constipation, dysuria, fever, hematuria, incontinence, numbness, tingling, urinary retention, vomiting, weakness. Modifying factors: The patient symptoms are alleviated by nothing, the patient symptoms are aggravated by nothing. Severity of symptoms: At their worst the symptoms were moderate, in the emergency department the symptoms have improved. The patient has experienced a previous episode. REports around 0400 today began with right/mid back pain, radiates to abdomen, not assoc with fever/nausea/vomiting/diarrhea/blood in stool. Thinks ate too much last night, and has had problems with acid reflux in past. Feels tired and generalized weakness. Reports pain also radiates to chest. . Historical: - Allergies: 08:18 Iodine; tw2 08:18 Levofloxacin; tw2 - Home Meds: 08:18 Glipizide Oral [Active]; Metoprolol Tartrate Oral [Active]; lisinopril Oral [Active]; tw2 - PMHx: 08:18 Diabetes - NIDDM; Hyperlipidemia; Hypertension; Myocardial infarction; TIA; tw2 - PSHx: 08:18 Heart stents; triple bypass sx; tw2 - Immunization history:: Adult Immunizations up to date, Pneumococcal vaccine is up to date, Flu vaccine is up to date. - Social history:: Smoking status: Patient/guardian denies using tobacco. - Ebola Screening: : Patient denies travel to an Ebola-affected area in the 21 days before illness onset. - Family history:: not pertinent. - Hospitalizations: : No recent hospitalization is reported. ROS: 08:24 Constitutional: Negative for fever, chills, and weight loss, Eyes: Negative for injury, rn pain, redness, and discharge, Neck: Negative for injury, pain, and swelling, Cardiovascular: Negative for palpitations, and edema, Respiratory: Negative for shortness of breath, wheezing, and pleuritic chest pain, Abdomen/GI: Negative for nausea, vomiting, diarrhea, and constipation, Back: Negative for injury : Negative for injury, bleeding, discharge, and swelling, MS/Extremity: Negative for injury and deformity, Skin: Negative for injury, rash, and discoloration, Neuro: Negative for headache, numbness, tingling, and seizure. Exam: 08:24 Constitutional: This is a well developed, well nourished patient who is awake, alert, rn and in no acute distress. Head/Face: Normocephalic, atraumatic. Eyes: Periorbital areas with no swelling, redness, or edema. ENT: MMM Cardiovascular: Regular rate and rhythm. No pulse deficits. Respiratory: No increased work of breathing, no retractions or nasal flaring. Abdomen/GI: soft, mild right sided tenderness, no masses or rebound Back: No spinal tenderness. No costovertebral tenderness. Skin: Warm, dry, and no evidence of cellulitis. MS/ Extremity: Pulses equal, no cyanosis. Neurovascular intact. Full, normal range of motion. Equal circumference. Neuro: Awake and alert, GCS 15, oriented to person, place, time, and situation. Cranial nerves II-XII grossly intact. Motor strength 5/5 in all extremities. Sensory grossly intact. Cerebellar exam normal. 09:01 ECG was reviewed by the Attending Physician. rn Vital Signs: 08:10 BP 182 / 66; Pulse 69; Resp 16 S; Pulse Ox 99% on R/A; Weight 68.04 kg (R); Height 5 aa5 ft. 0 in. (152.40 cm) (R); Pain 8/10; 08:41 Temp 98.6(TE); tw2 09:32 BP 168 / 63; Pulse 65; Resp 17; Pulse Ox 99% on R/A; tw2 10:30 BP 159 / 67; Pulse 72; Resp 17; Pulse Ox 99% on R/A; tw2 11:09 BP 159 / 90; Pulse 70; Resp 17; Pulse Ox 97% on R/A; tw2 12:30 BP 162 / 71; Pulse 74; Resp 17; Pulse Ox 99% ; tw2 13:30 BP 166 / 74; Pulse 71; Resp 17; Pulse Ox 99% on R/A; tw2 08:10 Body Mass Index 29.29 (68.04 kg, 152.40 cm) aa5 MDM: 08:15 Patient medically screened. rn 11:02 ED course: Pt states ate fried chicken last night, pain began around 0400. Pain rn improved without any therapy other than GI cocktail. Paging Dr. Lagunas for eval given mild PCF and thickening of gallbladder wall. Normal WBC, normal lipase, and no evidence of CBD stone. Questionable early cholecystitis. . 11:04 Differential diagnosis: Cholelithiasis sprain, Ureterolithiasis GERD, cholecystitis, rn pancreatitis. Data reviewed: vital signs, nurses notes, lab test result(s), radiologic studies, CT scan, ultrasound, and as a result, I will admit patient. Counseling: I had a detailed discussion with the patient and/or guardian regarding: the historical points, exam findings, and any diagnostic results supporting the discharge/admit diagnosis, lab results, radiology results, the need for further work-up and treatment in the hospital. Response to treatment: the patient's symptoms have markedly improved after treatment, and as a result, I will admit patient. Admission orders: after a detailed discussion of the patient's condition and case, the admit orders are written by me. 07/03 08:24 Order name: Basic Metabolic Panel; Complete Time: : rn 07/03 08:24 Order name: CBC with Diff; Complete Time: : rn 07/03 08:24 Order name: Hepatic Function; Complete Time: : rn 07/03 08:24 Order name: Lipase; Complete Time: 09: rn 07/03 08:24 Order name: Troponin (emerg Dept Use Only); Complete Time: 09:21 rn 07/03 08:24 Order name: Urine Microscopic Only; Complete Time: 11:17 rn 07/03 08:24 Order name: XRAY Chest (1 view); Complete Time: 10:46 rn 07/03 08:33 Order name: Abdomen ; Complete Time: 10:46 EDMS 07/03 09:22 Order name: US Abdomen Limited; Complete Time: 10:46 rn 07/03 09:32 Order name: Urine Dipstick--Ancillary (enter results); Complete Time: 11:17 bd 07/03 11:18 Order name: Urine Culture EDOK 07/03 08:24 Order name: IV Saline Lock; Complete Time: 08:39 rn 07/03 08:24 Order name: Labs collected and sent; Complete Time: 08:39 rn 07/03 08:24 Order name: EKG; Complete Time: 08:25 rn 07/03 08:24 Order name: EKG - Nurse/Tech; Complete Time: 08:24 rn 07/03 08:24 Order name: Urine Dipstick-Ancillary (obtain specimen); Complete Time: 09:32 rn 07/03 11:17 Order name: CONS Physician Consult EDOK 07/03 11:17 Order name: CONS Physician Consult EDOK 07/03 11:17 Order name: NPO; Complete Time: 12:05 EDMS EC:01 Rate is 73 beats/min. Rhythm is regular. Left axis deviation noted. QRS is positive in rn lead I and negative in lead aVF. NV interval is normal. QRS interval is normal. QT interval is normal. No Q waves. T waves are Inverted in leads V5, V6. No ST changes noted. Clinical impression: NSR w/ Non-specific ST/T Changes. Interpreted by me. Reviewed by me. Administered Medications: 08:30 Drug: GI Cocktail without - (Maalox Suspension 30 ml, Lidocaine Liquid 2 % 15 tw2 ml) Route: PO; 09:36 Follow up: Response: No adverse reaction tw2 11:12 Drug: Rocephin - (cefTRIAXone) 1 grams Route: IVPB; Infused Over: 5 mins; Site: left tw2 antecubital; 11:16 Follow up: Response: No adverse reaction; IV Status: Completed infusion tw2 11:18 Drug: Flagyl 500 mg Volume: 100 ml; Route: IVPB; Rate: 200 ml/hr; Infused Over: 30 tw2 mins; Site: left antecubital; 11:50 Follow up: Response: No adverse reaction; IV Status: Completed infusion tw2 Disposition: 07/03/18 11:06 Hospitalization ordered by Marley Martinez for Inpatient Admission. Preliminary diagnosis are Cholelithiasis, Cholecystitis, unspecified. - Bed requested for Telemetry/MedSurg (Inpatient). - Status is Inpatient Admission. tw2 - Condition is Stable. - Problem is new. - Symptoms have improved. UTI on Admission? No Signatures: Dispatcher [employer] [facility] Denise raymundo Benja Cheek MD MD rn Calderon, Audri, RN RN aa5 Lissa Briggs RN RN tw2 Corrections: (The following items were deleted from the chart) 08:22 08:17 Social history: Smoking status: [place] [id number] 08:22 08:17 Immunization history: Adult Immunizations [place] [id number] 08:33 08:25 Abdomen Pelvis W Con+CT.RAD.BRZ ordered. [facility] 13:26 11:06 Hospitalization Ordered by Marley Martinez MD for Inpatient Admission. Preliminary bd diagnosis is Cholelithiasis; Cholecystitis, unspecified. Bed requested for Telemetry/MedSurg (Inpatient). Status is Inpatient Admission. Condition is Stable. Problem is new. Symptoms have improved. UTI on Admission? No. rn 13:53 13:26 07/03/2018 11:06 Hospitalization Ordered by Marley Martinez MD for Inpatient 2 Admission. Preliminary diagnosis is Cholelithiasis; Cholecystitis, unspecified. Bed requested for Telemetry/MedSurg (Inpatient). Status is Inpatient Admission. Condition is Stable. Problem is new. Symptoms have improved. UTI on Admission? No. bd
[2018-07-03 11:16] LABS: Urine Blood TRACE (NEG); Urine Glucose NEGATIVE (NEG); Urine Protein NEGATIVE (NEG); Urine pH 6.5 (5.0-7.0)
[2018-07-03 11:16] LABS: Urine Bacteria <20 /HPF (<20); Urine Culture Reflex Order REFLEXED; Urine Mucus 2+ /HPF (NONE SEEN); Urine RBC <5 /HPF (NONE SEEN)
[2018-07-03] MEDS ORDERED: METRONIDAZOLE 500mg IVPB 500 MG/100 ML BAG IV ONE (11:25)
[2018-07-03] MEDS ORDERED: CEFTRIAXONE/SWI 1gm 1 GM/10 ML SYR ONE (11:25)
--- NOTE | 2018-07-03 13:26 | EKG ---
Test Date: 2018-07-03 Test Time: 08:24:52 Inventory Controller: [place] MEASUREMENT RESULTS: Intervals: Rate: 73 DE: 152 QRSD: 94 QT: 392 QTc: 431 [place]: P: 66 DE: 152 QRS: -39 T: 148 INTERPRETIVE STATEMENTS: Normal sinus rhythm Left axis deviation ST & T wave abnormality, consider lateral ischemia Abnormal ECG Compared to ECG 12/28/2017 13:31:12 Possible ischemia now present Atrial abnormality no longer present ST (T wave) deviation still present Electronically Signed On 07-03-18 13:24:55 CDT by Mert Eason
[2018-07-03] MEDS ORDERED: ONDANSETRON 4 MG/2 ML VIAL IV PRN (13:41)
[2018-07-03] MEDS: INSULIN -REGULAR HUMAN 50 UNIT/0.5 ML ML SQ SCH ×3 (13:41→20:20)
[2018-07-03] MEDS ORDERED: D50W 25 GM/50 ML SYRINGE IV PRN (13:50)
[2018-07-03] MEDS ORDERED: GLUCAGON 1 MG/VIAL IM PRN (13:50)
[2018-07-03 14:26] VITALS: O2SAT 97
[2018-07-03 15:01] VITALS: BMI 29.2
[2018-07-03] MEDS: NA CHLORIDE 0.9% 1,000 ML IV SCH ×2 (15:03→22:00)
[2018-07-03 15:04] LABS: Urine Appearance CLEAR; Urine Bilirubin NEGATIVE (NEG); Urine Blood NEGATIVE (NEG); Urine Color YELLOW; Urine Glucose NEGATIVE (NEG); Urine Protein NEGATIVE (NEG)
[2018-07-03 15:28] LABS: Urine Bacteria NONE SEEN /HPF (<20); Urine Culture Reflex Order NOT NEEDED; Urine RBC NONE SEEN /HPF (NONE SEEN)
[2018-07-03] MEDS ORDERED: KCL 20 MEQ/100 mL IVPB 20 MEQ/100 ML BAG IV SCH (16:00)
[2018-07-03] MEDS ORDERED: POTASSIUM CL SA 10 MEQ TAB PO ONE ×2 (17:00→23:32)
[2018-07-03] MEDS: PIPER/TAZO/NS 3.375gm 3.375 GM/100 ML BAG IVPB SCH (17:10)
--- NOTE | 2018-07-03 17:16 | P.HP ---
Certification for Inpatient Patient admitted to: Observation With expected LOS: <2 Midnights Patient will require the following post-hospital care: None Practitioner: I am a practitioner with admitting privileges, knowledge of patient current condition, hospital course, and medical plan of care. Services: Services provided to patient in accordance with Admission requirements found in Title 42 Section 412.3 of the Code of Federal Regulations Patient History Date of Service: 07/03/18 Reason for admission: RUQ Pain History of Present Illness: Patient is a 77-year-old female with significant past medical history of type 2 diabetes, hypertension, CAD, [place], TIA who presented to the ED complaining of having right upper quadrant pain. Patient stated that when she woke up this morning and went to the restroom she felt like she was going to be helping out from the right upper quadrant pain. Patient stated that she has had frequent episodes like this in the past as well however has not been seen by a doctor at that time. Patient stated that her pain got progressively worse and the she decided to come to the ER. Patient does have fatty food in her diet and has not been healing healthy for the past couple of days. Patient denies having any fever chills. Does complain of having some nausea but no vomiting noted. No other complaints to offer at this time Allergies levofloxacin [From Levaquin] Allergy (Verified 10/27/14 15:08) Nausea/Vomiting IODINE; IODINE CONTAINING Allergy (Uncoded 05/15/14 22:46) Unknown Home Medications: Aspirin [Aspirin EC 81 MG] 81 mg PO DAILY 07/03/18 Atorvastatin Calcium [Lipitor*] 20 mg PO DAILY 07/03/18 Benzonatate [Tessalon Perle*] 100 mg PO BIDP PRN 07/03/18 Brimonidine [Alphagan P 0.15%*] 1 drop EACH EYE BID 07/03/18 Cetirizine HCl 10 mg PO DAILY 07/03/18 Citalopram [Celexa*] 10 mg PO DAILY 07/03/18 Clopidogrel Bisulfate [Plavix*] 75 mg PO DAILY 07/03/18 Ketoconazole 1 chris TOP PRN 07/03/18 Latanoprost/Pf [Latanoprost 0.005% Eye Drop] 1 drop EACH EYE BEDTIME 07/03/18 Losartan/Hydrochlorothiazide [Hyzaar 100-25 Tablet] 1 tab PO DAILY 07/03/18 Metoprolol Tartrate [Lopressor*] 50 mg PO BID 07/03/18 Pentoxifylline 400 mg PO TID 07/03/18 Timolol 0.5% Opth [Timoptic 0.5% Opth*] 1 drop EACH EYE BID 07/03/18 glipiZIDE [Glucotrol*] 5 mg PO BIDWM 07/03/18 - Past Medical/Surgical History Has patient received pneumonia vaccine in the past: Yes Diabetic: Yes -: Diabetes - NIDDM -: Hyperlipidemia -: Hypertension -: [place] -: TIA -: asthma -: bronchitis -: Glaucoma -: PVD -: Triple Bypass -: Heart stents -: Leg Stents - Family History Family History: Reviewed- Non-Contributory - Family History Mother -: Heart disease Father -: Liver disease Brother -: Diabetes, Liver disease - Social History Smoking Status: Never smoker Smoking therapy provided: No Patient receptive to therapy: No Alcohol use: No CD- Drugs: No Caffeine use: Yes Place of Residence: Home Review of Systems 10-point ROS is otherwise unremarkable Physical Examination - Vital Signs Temperature: 98.6 F Blood Pressure: 159/90 Pulse: 70 Respirations: 17 - Physical Exam General: Alert, In no apparent distress Respiratory: Clear to auscultation bilaterally, Normal air movement Cardiovascular: Regular rate/rhythm, Normal S1 S2 Gastrointestinal: Normal bowel sounds, Tenderness (RUQ pain) Musculoskeletal: No tenderness Integumentary: No rashes Neurological: Normal speech, Normal tone, Sensation intact Lymphatics: No axilla or inguinal lymphadenopathy - Studies Laboratory Data (last 24 hrs) 07/03/18 08:35: WBC 10.6, Hgb 12.3, Hct 37.4, Plt Count 172 07/03/18 08:35: Sodium 142, Potassium 3.4 L, BUN 23 H, Creatinine 0.87, Glucose 239 H, Total Bilirubin 0.8, AST 42 H, ALT 33, Alkaline Phosphatase 151 H, Lipase 210 Assessment and Plan - Problems (Diagnosis) (1) Symptomatic cholelithiasis Current Visit: Yes Status: Acute Plan: Symptomatic cholelithiasis -abdominal ultrasound with multiple punctate gallbladder stones with minimal pericholecystic fluid - high risk for gallstone induced pancreatitis -patient currently with right upper quadrant pain -though patient does not have elevated white count or fever. Patient does have history of uncontrolled diabetes which could be masking the lab values -will admit the patient start on IV antibiotics and get general surgery consulted -clear liquid diet for now -patient does take aspirin Plavix for CAD. Her last dose was today (2) Non-insulin dependent type 2 diabetes mellitus Onset Date: 02/22/16 Current Visit: No Status: Chronic Plan: Insulin sliding scale and Accu-Chek (3) CAD (coronary artery disease) Onset Date: 02/22/16 Current Visit: No Status: Chronic Plan: Will restart on home medication hold aspirin and Plavix at this time Qualifiers: Coronary Disease-Associated Artery/Lesion type: [place] artery [place] vs. transplanted heart: [place] heart Associated angina: without angina Qualified Code(s): I25.10 - Atherosclerotic heart disease of [place] coronary artery without angina pectoris (4) Hyperlipidemia Onset Date: 02/22/16 Current Visit: No Status: Chronic Plan: Stable will continue to monitor closely Qualifiers: Hyperlipidemia type: unspecified Qualified Code(s): E78.5 - Hyperlipidemia , unspecified (5) Hypertension Onset Date: 02/22/16 Current Visit: No Status: Chronic Plan: Stable will restart home medication Qualifiers: Hypertension type: essential hypertension Qualified Code(s): I10 - Essential (primary) hypertension (6) PVD (peripheral vascular disease) Onset Date: 02/22/16 Current Visit: No Status: Chronic Plan: Stable will hold aspirin and Plavix at this time - Plan Admit patient to medical-surgical floor for symptomatic cholelithiasis for IV antibiotics and general surgery consultation Discharge Plan: Home Plan to discharge in: 48 Hours - Advance Directives Does patient have a Living Will: No Does patient have a Durable POA for Healthcare: No - Code Status/Comfort Care Code Status Assessed: Yes Critical Care: No
--- NOTE | 2018-07-03 18:53 | CON ---
Date of Consultation: 07/03/2018 Reason For Consultation: Abdominal pain. History Of Present Illness: The patient is a 77-year-old female, who presents to the emergency room with acute onset of epigastric pain going to the back. She has never had pain like this before. She felt a little dizzy prior to the attack. She was seen in the emergency room, worked up and found to have gallstones, and I was consulted. Currently she is awake and alert. Denies any pain at all. N o nausea or vomiting. No bloating, belching, or heartburn. She states that she did eat a lot of jocelin d last night and that may have contributed to her symptoms today and she has a history of acid reflux . No sore throat, runny nose, cough, headaches, or dizziness. No chest pain. Review of Systems: Otherwise unremarkable. Past Medical History: Significant for diabetes type 2, hyperlipidemia, hypertension, history of [place] a nd TIA. Past Surgical History: Triple bypass surgery, heart stents. Allergies: INCLUDE IODINE AND LEVAQUIN. Medications: The patient medications reviewed. She is on aspirin and Plavix. Social History: She does not smoke or drink alcohol. Family History: Noncontributory. Physical Examination: Vital Signs: Stable. She is currently afebrile. General: She is awake, alert, oriented x3. Head and Neck: Cranial nerves 2 through 12 are grossly within normal limits. No neck masses. No JV D. Throat clear. Neck is supple. Chest: Clear. Heart: S1 and S2. Abdomen: Soft, nondistended, nontender. Positive bowel sounds. Extremities: Neurovascularly intact. Neuro: Nonfocal. Diagnostic Data: Ultrasound of the abdomen and CT of the abdomen reviewed, essentially shows multipl e mobile gallstones with minimal wall thickening and trace pericholecystic fluid. Laboratory Data: White count is 10.6, slight left shift. Chemistry shows AST 42, alkaline phosphata se 151, otherwise LFTs and lipase are normal. Sugar is high. Potassium is 3.4. Assessment: A 77-year-old female with chronic cholecystitis, cholelithiasis with multiple medical pr oblems. Recommendations: As patient currently does not have any symptoms, I think we can treat the patient w ith antibiotics and for the next 24 hours observe her and should she be able to tolerate diet she can be discharged. When she gets a medical clearance and cardiac clearance either as inpatient or outpa tient. She will follow up with me and we can schedule an elective cholecystectomy as an outpatient. Given her clinical condition right now there is no need for any urgent intervention. Plan of care d iscussed with Dr. Martinez. ERICK/BARTOLOME Voice ID: [id number] Report ID: [id number]
[2018-07-03] MEDS ORDERED: ACETAMINOPHEN 325 MG TABLET PO ONE (23:48)
[2018-07-04] MEDS: PIPER/TAZO/NS 3.375gm 3.375 GM/100 ML BAG IVPB SCH ×2 (00:10→08:31)
--- NOTE | 2018-07-04 00:30 | CON ---
Date of Consultation: 07/03/[address] Martinez's service on 07/03/2018. The patient was seen on 07/03/2018. Reason For Consultation: Cardiac clearance for cholelithiasis. Ms. Haskins is a 77-year-old woman who has had a history of moderate aortic stenosis in 2016 [facility] from a cardiovascular standpoint. She also has a history of CABG in 1999, stent in 2004, hyperten lamar, diabetes, peripheral arterial disease, and dyslipidemia. She came in what sounds like an acute cholecystitis. No cardiac symptoms reported. Past Medical History: As stated above. Allergies: SHE IS ALLERGIC TO LEVAQUIN AND IODINE. Social History: Negative. Family History: Noncontributory. Medications: At home include aspirin, Plavix, Lipitor, glipizide, hydralazine, metoprolol, Trental, and potassium. Physical Examination: Vital Signs: Stable, afebrile. HEENT: Negative. Neck: Supple. No bruit, lymphadenopathy, or JVD. She had what sounds like carotid murmurs coming f rom the aortic valve. Chest: Looked clear. Cardiac: Revealed a regular rhythm and rate with a 2/6 systolic ejection murmur at the third right i ntercostal space radiating to the carotid. Positive S4. Abdomen: Benign. Extremities: Revealed no clubbing, cyanosis, or edema. Diagnostic Data: That were available to me were within normal limits, except for a potassium of 3.4, glucose was 239. Her LFTs were abnormal. Her last echo was in 2015 showing normal ejection fractio n with moderate aortic stenosis. She had a Lexiscan in 2018 that was normal. Impression And Plan: 1.Moderate aortic stenosis. Last echo 3 years ago. No symptoms. An echocardiogram may be done tod ay. 2.History of coronary artery bypass grafting in 1999 and stent in 2004. Last stress test less than a year ago was normal. I think she is at low risk for perioperative mortality. 3.Diabetes. 4.Hypertension. 5.Dyslipidemia. 6.Peripheral arterial disease. 7.Hypokalemia. I feel comfortable with Ms. Haskins being off Plavix. Her last stent was many years. We will continue to follow her postoperatively. YADIRA/YOUL Voice ID: [id number] Report ID: [id number]
[2018-07-04 04:47] VITALS: BP 98/71; TEMP 97.6
[2018-07-04 04:47] LABS: Absolute Lymphocytes (CBC) 0.8 K/uL (0.7-4.9); Absolute Monocytes 0.4 K/uL (0.1-1.3); Absolute Neutrophil 5.5 K/uL (1.8-8.0); Basophils % 0.6 % (0-1.3); Eosinophils % 1.1 % (0-4.4); Hematocrit 32.6 % (36.0-45.0); Lymphocytes % 11.4 % (15.3-44.8); MPV 10.6 fL (7.6-11.3); Monocytes % 6.3 % (3.3-12.3); RBC Red Blood Cell Count 3.94 M/uL (3.86-4.86)
[2018-07-04 04:58] LABS: Albumin 3.2 g/dL (3.4-5.0); Bilirubin Total 0.6 mg/dL (0.2-1.0); Magnesium 1.8 mg/dL (1.8-2.4); Phosphorus 2.3 mg/dL (2.5-4.9); Potassium 3.6 mmol/L (3.5-5.1)
[2018-07-04] MEDS ORDERED: POTASSIUM CL SA 10 MEQ TAB PO ONE (06:30)
[2018-07-04] MEDS ORDERED: MAGNESIUM SULFATE 1 gm IVPB 1 GM/100 ML BAG IV ONE (06:30)
[2018-07-04] MEDS: POTASS/SODIUM PHOSPHATE 1 PKT POWD.PACK PO SCH ×3 (06:33→09:36)
[2018-07-04] MEDS: INSULIN -REGULAR HUMAN 50 UNIT/0.5 ML ML SQ SCH ×2 (07:30→11:30)
[2018-07-04] MEDS: NA CHLORIDE 0.9% 1,000 ML IV SCH (08:00)
--- NOTE | 2018-07-04 08:37 | ECHO ---
HEIGHT: 5 ft 0 in WEIGHT: 150 lb 0.04 oz DATE OF STUDY: 07/03/[address]: Mert Eason MD 2-DIMENSIONAL: YES M.MODE: YES DOPPLER: YES COLOR FLOW: YES TDS: NO PORTABLE: NO DEFINITY: NO BUBBLE STUDY: NO DIAGNOSIS: AORTIC STENOSIS CARDIAC HISTORY: CATHERIZATION: YES SURGERY: YES PROSTHETIC VALVE: NO PACEMAKER: NO MEASUREMENTS (cm) DIASTOLIC (NORMALS) SYSTOLIC (NORMALS) IVSd 1.5 (0.6-1.2) LA Diam 3.6 (1.9-4.0) LVEF 64% LVIDd 4.3 (3.5-5.7) LVIDs 2.8 (2.0-3.5) %FS 35% LVPWd 1.3 (0.6-1.2) Ao Diam 2.2 (2.0-3.7) 2 DIMENSIONAL ASSESSMENT: RIGHT ATRIUM: NORMAL LEFT ATRIUM: DILATED RIGHT VENTRICLE: NORMAL LEFT VENTRICLE: LEFT VENTRICULAR HYPERTROPHY TRICUSPID VALVE: NORMAL MITRAL VALVE: NORMAL PULMONIC VALVE: NORMAL AORTIC VALVE: STENOSIS PERICARDIAL EFFUSION: NONE AORTIC ROOT: NORMAL LEFT VENTRICULAR WALL MOTION: NORMAL DOPPLER/COLOR FLOW: MILD MITRAL REGURGITATION. MODERATE AORTIC STENOSIS. PEAK/MEAN GRADIENT 23/13. ESTIMATED AORTIC VALVE AREA 1.4 CENTIMETERS SQUARED. NO AORTIC REGURGITATION. COMMENTS: NORMAL LEFT VENTRICULAR EJECTION FRACTION. DILATED LEFT ATRIUM. LEFT VENTRICULAR HYPERTROPHY. MODERATE AORTIC STENOSIS. NO AORTIC REGURGITATION. MILD MITRAL REGURGITATION. TECHNOLOGIST: Miguel TUCKER
--- NOTE | 2018-07-04 12:21 | P.SSS ---
Patient History Date of Service: 07/04/18 Reason for admission: RUQ Pain History of Present Illness: Patient is a 77-year-old female with significant past medical history of type 2 diabetes, hypertension, CAD, [place], TIA who presented to the ED complaining of having right upper quadrant pain. Patient stated that when she woke up this morning and went to the restroom she felt like she was going to be helping out from the right upper quadrant pain. Patient stated that she has had frequent episodes like this in the past as well however has not been seen by a doctor at that time. Patient stated that her pain got progressively worse and the she decided to come to the ER. Patient does have fatty food in her diet and has not been healing healthy for the past couple of days. Patient denies having any fever chills. Does complain of having some nausea but no vomiting noted. No other complaints to offer at this time Allergies levofloxacin [From Levaquin] Allergy (Verified 10/27/14 15:08) Nausea/Vomiting IODINE; IODINE CONTAINING Allergy (Uncoded 05/15/14 22:46) Unknown Home Medications: Atorvastatin Calcium [Lipitor*] 20 mg PO DAILY 07/03/18 Benzonatate [Tessalon Perle*] 100 mg PO BIDP PRN 07/03/18 Brimonidine [Alphagan P 0.15%*] 1 drop EACH EYE BID 07/03/18 Cetirizine HCl 10 mg PO DAILY 07/03/18 Citalopram [Celexa*] 10 mg PO DAILY 07/03/18 Ketoconazole 1 chris TOP PRN 07/03/18 Latanoprost/Pf [Latanoprost 0.005% Eye Drop] 1 drop EACH EYE BEDTIME 07/03/18 Losartan/Hydrochlorothiazide [Hyzaar 100-25 Tablet] 1 tab PO DAILY 07/03/18 Metoprolol Tartrate [Lopressor*] 50 mg PO BID 07/03/18 Timolol 0.5% Opth [Timoptic 0.5% Opth*] 1 drop EACH EYE BID 07/03/18 glipiZIDE [Glucotrol*] 5 mg PO BIDWM 07/03/18 Ciprofloxacin HCl [Cipro 500 MG Tablet] 500 mg PO DAILY #14 tab 07/04/18 metroNIDAZOLE [Flagyl] 500 mg PO Q6H #56 tablet 07/04/18 - Past Medical/Surgical History Has patient received pneumonia vaccine in the past: Yes Diabetic: Yes -: Diabetes - NIDDM -: Hyperlipidemia -: Hypertension -: [place] -: TIA -: asthma -: bronchitis -: Glaucoma -: PVD -: Triple Bypass -: Heart stents -: Leg Stents - Family History Family History: Reviewed- Non-Contributory - Family History Mother -: Heart disease Father -: Liver disease Brother -: Diabetes, Liver disease - Social History Smoking Status: Never smoker Alcohol use: No CD- Drugs: No Caffeine use: Yes Place of Residence: Home Review of Systems 10-point ROS is otherwise unremarkable Physical Examination - Vital Signs Temperature: 97.6 F Blood Pressure: 98/71 Pulse: 74 Respirations: 17 Pulse Ox (%): 96 - Physical Exam General: Alert, In no apparent distress HEENT: Atraumatic, PERRLA, Mucous membr. moist/pink, EOMI, Sclerae nonicteric Neck: Supple, 2+ carotid pulse no bruit, No LAD, Without JVD or thyroid abnormality Respiratory: Clear to auscultation bilaterally, Normal air movement Cardiovascular: Regular rate/rhythm, Normal S1 S2 Gastrointestinal: Normal bowel sounds, No tenderness Musculoskeletal: No tenderness Integumentary: No rashes Neurological: Normal gait, Normal speech, Normal strength at 5/5 x4 extr, Normal tone, Normal affect Lymphatics: No axilla or inguinal lymphadenopathy - Diagnosis (Problem(s)) (1) Symptomatic cholelithiasis Status: Acute (2) Non-insulin dependent type 2 diabetes mellitus Onset Date: 02/22/16 Status: Chronic Plan: \ (3) CAD (coronary artery disease) Onset Date: 02/22/16 Status: Chronic Qualifiers: Coronary Disease-Associated Artery/Lesion type: [place] artery [place] vs. transplanted heart: [place] heart Associated angina: without angina Qualified Code(s): I25.10 - Atherosclerotic heart disease of [place] coronary artery without angina pectoris (4) Hyperlipidemia Onset Date: 02/22/16 Status: Chronic Qualifiers: Hyperlipidemia type: unspecified Qualified Code(s): E78.5 - Hyperlipidemia , unspecified (5) Hypertension Onset Date: 02/22/16 Status: Chronic Qualifiers: Hypertension type: essential hypertension Qualified Code(s): I10 - Essential (primary) hypertension (6) PVD (peripheral vascular disease) Onset Date: 02/22/16 Status: Chronic Treatment Summary: Overall during the hospital stay patient remained stable Patient was initially admitted to the hospital for symptomatic cholelithiasis. General surgery was consulted. Patient was started on IV antibiotics along with fluids here in the hospital. Patient had marked improvement after 24 hr of observation and antibiotics. At that time general surgery recommended the patient can be discharged home once cleared by cardiology for outpatient surgery. Patient is to hold her aspirin Plavix for possible surgery outpatient with general surgery. Patient is to follow up with general surgeon about 1-2 weeks post discharge. Patient is also to continue on oral antibiotics. Patient and family educated extensively regarding diet changes and the need to continue antibiotics until they see General Surgery. They were also educated extensively on the need to hold aspirin and Plavix until appointment with general surgery Cardiology had consulted here in the hospital. Okay with holding aspirin and Plavix in anticipation of surgery. Patient did well overall while here in the hospital. Lab work and imaging were reviewed. Improved markedly and this patient was discharged home under stable condition. - Disposition Disposition: ROUTINE DISCHARGE Condition: GOOD Patient Discharge Instructions: Please stop taking Plavix, ASA and [place]. Take Cipro and flagyl for 14 days. Please f.u with General Surgery in 1 to 2 days for outpt setup for gallbladder removal surgery Diet: Regular Activity: Ad jadon
== END 2018-07-04 11:58 | disposition home or self-care (01) ==
LOC: ER 08:03 → ERHOLD 11:15 → 4TH 13:35
PROVIDERS: ADMIT Family Medicine; ATTEND Family Medicine
DX: K80.10 Calculus of gallbladder with chronic cholecystitis without obstruction (principal); E11.51 Type 2 diabetes mellitus with diabetic peripheral angiopathy without gangrene; E78.5 Hyperlipidemia, unspecified; E87.6 Hypokalemia; I10 Essential (primary) hypertension; I35.0 Nonrheumatic aortic (valve) stenosis; I25.10 Atherosclerotic heart disease of native coronary artery without angina pectoris; I25.2 Old myocardial infarction; I51.7 Cardiomegaly; R94.31 Abnormal electrocardiogram [ECG] [EKG]; Z79.02 Long term (current) use of antithrombotics/antiplatelets; Z79.84 Long term (current) use of oral hypoglycemic drugs; Z79.899 Other long term (current) drug therapy; Z86.73 Personal history of transient ischemic attack (TIA), and cerebral infarction without residual deficits; Z95.1 Presence of aortocoronary bypass graft; Z95.5 Presence of coronary angioplasty implant and graft
CPT/HCPCS: 96365 ×4; 96367 ×2; 93005; 93306; 87088; 85025 ×2; 81001; 87086; 80048; 36415; 83735; 84100; 84132; 82962 ×6; 80076; 84484; 83690; 80053; 74176; 71045; 76705; 96375; 99285; J3475; J2543; J0696; J7030; G0378 ×2; 81003; 81015

== ENCOUNTER 2019-01-21 13:37 | Emergency (ER) | payer MEDICARE ==
--- OUTSIDE RECORDS SUMMARY | 2019-01-21 13:40 | XMS REPORT ---
:1940 Author Organization [employer] Care Team Providers Name Role Phone Tripp, Na Provider Role Unavailable Allergies No Known Allergies Problems Problem Type Condition Code Onset Dates Condition Status Assessment Type 2 diabetes mellitus with other E11.29 Active diabetic kidney complication Problem Cataract H26.9 Active Problem GERD (gastroesophageal [...] PAD (peripheral artery disease) I73.9 Active Problem Onychomycosis B35.1 Active Problem Depression with anxiety F41.8 Active Problem Type 2 diabetes mellitus with other E11.29 Active diabetic kidney complication Problem Pain of left foot M79.672 Active Problem Dermatitis of left foot L30.9 Active Problem Hypertensive urgency I16.0 Active Problem Hyperlipidemia, mixed E78.2 Active Problem Hammer toe M20.40 Active Problem Pain R52 Active Problem Allergic rhinitis, seasonal J30.2 Active Problem Anemia, blood loss D50.0 Active Problem Controlled type 2 diabetes mellitus E11.51 Active with diabetic peripheral angiopathy without gangrene, without long-term current use of insulin Problem Ulcer L98.499 Active Problem Carotid artery occlusion I65.29 Active Medications Medication Code System Code Instructions Start Date End Date Status Dosage GlipiZIDE [facility] [id number] 5 Orally Once a Active 1 tablet day Results No Known Results Summary Purpose [employer]Works Submission
--- OUTSIDE RECORDS SUMMARY | 2019-01-21 13:40 | XMS REPORT ---
[...] Problem Carotid artery occlusion I65.29 Active Medications No Known Medications Results No Known Results Summary Purpose [employer]Works Submission
--- OUTSIDE RECORDS SUMMARY | 2019-01-21 13:40 | XMS REPORT ---
[...] kidney complication Assessment Hypertension I10 Active Assessment Acute sinusitis, unspecified J01.90 Active Problem Cataract H26.9 Active Problem GERD [...] PAD (peripheral artery disease) I73.9 Active Assessment Other specified bacterial agents as B96.89 Active the cause of diseases classified elsewhere Problem Onychomycosis B35.1 Active Problem Depression with anxiety F41.8 Active Problem Type 2 diabetes mellitus with other E11.29 Active diabetic kidney complication Problem Pain of left foot M79.672 Active Problem Dermatitis of left foot L30.9 Active Problem Hypertensive urgency I16.0 Active Assessment Depression with anxiety F41.8 Active Problem Hyperlipidemia, mixed E78.2 Active Assessment Hyperlipidemia, mixed E78.2 Active Problem Hammer toe M20.40 Active Assessment 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 Active Problem Pain R52 Active Assessment PAD (peripheral artery disease) I73.9 Active Problem Allergic rhinitis, seasonal J30.2 Active Assessment Osteoporosis without current M81.0 Active pathological fracture, unspecified osteoporosis type Problem Anemia, blood loss D50.0 Active Assessment Seasonal allergies J30.2 Active Problem Controlled type 2 diabetes mellitus E11.51 Active with diabetic peripheral angiopathy without gangrene, without long-term current use of insulin Problem Ulcer L98.499 Active Problem Carotid artery occlusion I65.29 Active Medications Medication Code Code Instructions Start End Status Dosage System Date Date Metformin HCl [facility] 64607855604 500 MG Orally Active 1 tablet with Once a day a meal Plavix [facility] 34231120450 75 MG Orally Active 1 tablet Once a day Hyzaar [facility] 51476711076 100-25 MG Active 1 tablet Orally Once a day Klor-Con M10 [facility] 42695795779 10 MEQ Orally Active 1 tablet with Twice a day food Aspir-81 [facility] 84078994023 81 MG Orally Active 1 tablet Once a day Benzonatate ND 94210976879 100 MG Orally Jan 07, Dec Active 1 capsule as two times a 2018, day 2018 Pantoprazole [facility] 98411900153 40 MG Orally Active 1 tablet Sodium Once a day GlipiZIDE [facility] 94793007435 5 Orally Once Active 1 tablet a day Potassium [facility] 93233751010 10 MEQ Active TAKE ONE Chloride Mey ER TABLET BY MOUTH TWICE DAILY Flonase [facility] 68253772703 50 MCG/ACT Oct 11, Active 1 spray in Nasally Once a 2017 each nostril day Pentoxifylline ER [facility] 14876309247 400 MG Orally Active 1 tablet with three times a meals day Cetirizine HCl [facility] 64752584253 10MG Active TAKE ONE TABLET BY MOUTH ONCE DAILY Alendronate [facility] 42221552417 70 MG Orally Active 1 tablet Sodium once a week Augmentin [facility] 70996145673 500-125 MG Dec Active 1 tablet Orally every 02, 12 hrs 2018 Ketoconazole [facility] 61072069442 2 % Externally Active 1 application twice a day to affected area Triamcinolone [facility] 79137401306 0.1 % Active 1 application Acetonide Externally to affected Twice a day area Atorvastatin [facility] 83142447823 20MG Orally Active 1 tablet at Calcium Once a day bedtime Metoprolol [facility] 67061591111 50 MG Orally Active 1 tablet with Tartrate Twice a day food Citalopram [facility] 28242349423 20 MG Orally Active take one Hydrobromide Once a day tablet by mouth once daily Results No Known Results Summary Purpose eClinicalWorks Submission
--- NOTE | 2019-01-21 15:27 | RAD REPORT ---
EXAM DESCRIPTION: RAD - Shoulder Right 2 View - 01/21/2019 3:20 pm CLINICAL HISTORY: PAIN COMPARISON: Shoulder Right 2 View dated 02/09/2016 FINDINGS: AC joint and glenohumeral joint arthritic changes are present. No fracture or dislocation.
--- NOTE | 2019-01-21 15:43 | EDPHYS ---
Physician Documentation [facility] Name: Eva Haskins Age: 78 yrs Sex: Female : 1940 Arrival Date: 01/21/2019 Time: 13:39 Bed 23 Private MD: ED Physician Benja Cheek HPI: 01/21 14:26 This 78 yrs old Female presents to ER via Ambulatory with complaints of rn Shoulder Pain. 14:26 The patient or guardian complains of pain. right shoulder. rn 14:26 Onset: The symptoms/episode began/occurred 1 week(s) ago. Modifying factors: the rn symptoms are alleviated by nothing. The symptoms are aggravated by movement. Severity of symptoms: At their worst the symptoms were moderate, in the emergency department the symptoms have improved. The patient has experienced similar episodes in the past. Reports right shoulder pain for about a week, remembers picking up something heavy for her, and felt pain to that shoulder the next morning, no fall, no chest pain. No weakness. Worse is AM, better now, does not feel broken. . Historical: - Allergies: 13:46 Iodine; aj1 13:46 Levofloxacin; aj1 - Home Meds: 13:46 Glipizide Oral [Active]; lisinopril Oral [Active]; Metoprolol Tartrate Oral [Active]; aj1 alendronate 70 mg/75 mL oral soln 75 mL once wkly [Active]; pentoxifylline 400 mg oral TbER 1 tab 3 times per day [Active]; - PMHx: 13:46 Diabetes - NIDDM; Hyperlipidemia; Hypertension; Myocardial infarction; TIA; aj1 - Immunization history:: Flu vaccine is up to date. - Social history:: Smoking status: Patient/guardian denies using tobacco. - Ebola Screening: : Patient denies travel to an Ebola-affected area in the 21 days before illness onset. - Family history:: not pertinent. - Hospitalizations: : No recent hospitalization is reported. ROS: 14:26 Constitutional: Negative for fever, chills, and weight loss, Cardiovascular: Negative rn for chest pain, palpitations, and edema, MS/Extremity: + right shoulder pain Neuro: Negative for headache, weakness, numbness, tingling, and seizure. Exam: 14:26 Constitutional: This is a well developed, well nourished patient who is awake, alert, rn and in no acute distress. Head/Face: Normocephalic, atraumatic. Neck: Trachea midline, no thyromegaly or masses palpated, and no cervical lymphadenopathy. Supple, full range of motion without nuchal rigidity, or vertebral point tenderness. No Meningismus. Cardiovascular: Regular rate and rhythm. No pulse deficits. MS/ Extremity: Pulses equal, no cyanosis. Neurovascular intact. Full, normal range of motion. Equal circumference. 15:40 ECG was reviewed by the Attending Physician. rn Vital Signs: 13:46 BP 159 / 90; Pulse 85; Resp 18; Temp 98.1; Pulse Ox 99% on R/A; Weight 66.68 kg (R); aj1 Height 5 ft. 0 in. (152.40 cm) (R); 14:45 BP 143 / 86; Pulse 86; Resp 16 S; Pulse Ox 100% on R/A; ca1 15:52 BP 151 / 88; Pulse 79; Resp 18 S; Pulse Ox 99% on R/A; ca1 13:46 Body Mass Index 28.71 (66.68 kg, 152.40 cm) aj1 MDM: 14:16 Patient medically screened. rn 15:40 Differential diagnosis: DJD, tendonitis. Differential diagnosis: humeral head fracture. rn Data reviewed: vital signs, nurses notes, radiologic studies, plain films, and as a result, I will discharge patient. Test interpretation: by ED physician or midlevel provider: ECG, plain radiologic studies, Xray shoulder negative for fracture/dislocation. Counseling: I had a detailed discussion with the patient and/or guardian regarding: the historical points, exam findings, and any diagnostic results supporting the discharge/admit diagnosis, radiology results, the need for outpatient follow up, to return to the emergency department if symptoms worsen or persist or if there are any questions or concerns that arise at home. 01/21 14:25 Order name: XRAY Shoulder RIGHT 2 view; Complete Time: 15:40 rn 01/21 14:56 Order name: EKG; Complete Time: 14:57 ca1 01/21 14:56 Order name: EKG - Nurse/Tech; Complete Time: 14:56 ca1 EC:40 Rate is 73 beats/min. Rhythm is regular. Left axis deviation noted. QRS is positive in rn lead I and negative in lead aVF. HI interval is normal. QRS interval is normal. QT interval is normal. No Q waves. T waves are Normal. No ST changes noted. Clinical impression: NSR w/ Non-specific ST/T Changes. Interpreted by me. Reviewed by me. Administered Medications: No medications were administered Disposition: 01/21/19 15:42 Discharged to Home. Impression: Primary osteoarthritis, right shoulder. - Condition is Stable. - Discharge Instructions: Arthritis, Shoulder Pain. - Medication Reconciliation Form, Thank You Letter, Antibiotic Education, Prescription Opioid Use form. - Follow up: Private Physician; When: As needed; Reason: Recheck today's complaints, Re-evaluation by your physician. - Problem is an ongoing problem. - Symptoms have improved. Signatures: Dispatcher [employer] EDYvonne Talbert RN RN aj1 Benja Cheek MD MD rn Acob, Esther RN RN ca1 Corrections: (The following items were deleted from the chart) 15:53 15:42 01/21/2019 15:42 Discharged to Home. Impression: Primary osteoarthritis, right ca1 shoulder. Condition is Stable. Forms are Medication Reconciliation Form, Thank You Letter, Antibiotic Education, Prescription Opioid Use. Follow up: Private Physician; When: As needed; Reason: Recheck today's complaints, Re-evaluation by your physician. Problem is an ongoing problem. Symptoms have improved. rn
--- NOTE | 2019-01-21 15:43 | ER ---
Nurse's Notes [facility] Name: Eva Haskins Age: 78 yrs Sex: Female : 1940 Arrival Date: 01/21/2019 Time: 13:39 Bed 23 Private MD: Diagnosis: Primary osteoarthritis, right shoulder Presentation: 01/21 13:41 Presenting complaint: Patient states: Right shoulder pain for the past week. Reports aj1 that she picked up something heavy and the next day her shoulder started hurting. Decreased ROM to right shoulder. Transition of care: patient was not received from another setting of care. Onset of symptoms was 2018. Risk Assessment: Do you want to hurt yourself or someone else?. Initial Sepsis Screen: Does the patient meet any 2 criteria? No. Patient's initial sepsis screen is negative. Does the patient have a suspected source of infection? No. Patient's initial sepsis screen is negative. Care prior to arrival: None. 13:41 Method Of Arrival: Ambulatory aj1 13:41 Acuity: DEVON 4 aj1 Triage Assessment: 13:46 General: Appears in no apparent distress. comfortable, Behavior is calm, cooperative, aj1 appropriate for age. Pain: Complains of pain in anterior aspect of right shoulder and posterior aspect of right shoulder Pain currently is 7 out of 10 on a pain scale. Neuro: Level of Consciousness is awake, alert, obeys commands. Cardiovascular: Patient's skin is warm and dry. Respiratory: Airway is patent Respiratory effort is even, unlabored, Respiratory pattern is regular, symmetrical. Historical: - Allergies: 13:46 Iodine; aj1 13:46 Levofloxacin; aj1 - Home Meds: 13:46 Glipizide Oral [Active]; lisinopril Oral [Active]; Metoprolol Tartrate Oral [Active]; aj1 alendronate 70 mg/75 mL oral soln 75 mL once wkly [Active]; pentoxifylline 400 mg oral TbER 1 tab 3 times per day [Active]; - PMHx: 13:46 Diabetes - NIDDM; Hyperlipidemia; Hypertension; Myocardial infarction; TIA; aj1 - Immunization history:: Flu vaccine is up to date. - Social history:: Smoking status: Patient/guardian denies using tobacco. - Ebola Screening: : Patient denies travel to an Ebola-affected area in the 21 days before illness onset. - Family history:: not pertinent. - Hospitalizations: : No recent hospitalization is reported. Screenin:25 Abuse screen: Denies threats or abuse. Denies injuries from another. Nutritional ca1 screening: No deficits noted. Tuberculosis screening: No symptoms or risk factors identified. Fall Risk Ambulatory Aid- Crutches/Cane/Walker (15 pts). Assessment: 12:25 General: Appears in no apparent distress. comfortable, Behavior is calm, cooperative, ca1 appropriate for age. Pain: Complains of pain in anterior aspect of right shoulder and posterior aspect of right shoulder Pain does not radiate. Pain currently is 7 out of 10 on a pain scale. Pain began a week ago. Neuro: Level of Consciousness is awake, alert, obeys commands, Oriented to person, place, time, situation. Derm: Skin is intact, is healthy with good turgor, Skin is pink, warm \T\ dry. Musculoskeletal: Circulation, motion, and sensation intact. Capillary refill < 3 seconds, Range of motion: intact in all extremities. 15:12 Reassessment: Patient appears in no apparent distress at this time. Patient is alert, ca1 oriented x 3, equal unlabored respirations, skin warm/dry/pink. Xray at bedside. 15:52 Reassessment: Patient appears in no apparent distress at this time. Patient is alert, ca1 oriented x 3, equal unlabored respirations, skin warm/dry/pink. Vital Signs: 13:46 BP 159 / 90; Pulse 85; Resp 18; Temp 98.1; Pulse Ox 99% on R/A; Weight 66.68 kg (R); aj1 Height 5 ft. 0 in. (152.40 cm) (R); 14:45 BP 143 / 86; Pulse 86; Resp 16 S; Pulse Ox 100% on R/A; ca1 15:52 BP 151 / 88; Pulse 79; Resp 18 S; Pulse Ox 99% on R/A; ca1 13:46 Body Mass Index 28.71 (66.68 kg, 152.40 cm) aj1 ED Course: 12:25 Patient has correct armband on for positive identification. Bed in low position. Call ca1 light in reach. Side rails up X 1. Pulse ox on. NIBP on. Warm blanket given. 12:25 No provider procedures requiring assistance completed. Patient did not have IV access ca1 during this emergency room visit. 13:39 Patient arrived in ED. as 13:44 Triage completed. aj1 13:46 Arm band placed on Patient placed in an exam room. aj1 14:16 Benja Cheek MD is Attending Physician. rn 14:17 Esther Branch, RN is Primary Nurse. ca1 15:01 EKG done, by motion picture camera lens technician. reviewed by Benja Cheek MD. tc 15:05 X-ray(s) taken. rv 15:26 XRAY Shoulder RIGHT 2 view In Process Unspecified. EDMS Administered Medications: No medications were administered Outcome: 15:42 Discharge ordered by MD. rn 15:53 Discharged to home ambulatory, with family. ca1 15:53 Condition: stable 15:53 Discharge instructions given to patient, Instructed on discharge instructions, follow up and referral plans. Demonstrated understanding of instructions, follow-up care. 15:53 Patient left the ED. ca1 Signatures: Dispatcher [employer] EDMS Yvonne Willett RN RN aj1 Amy Mg as Benja Cheek MD MD rn Callis, Tiffany, repair clerk EKG Ttc Augustin Teresa RN RN Esther Blake, NAINA RN ca1
[2019-01-21 16:16] VITALS: TEMP 98.1
--- NOTE | 2019-01-21 16:17 | EKG ---
Test Date: 2019-01-21 Test Time: 14:54:22 Band Ripsaw Operator: ORI MEASUREMENT RESULTS: Intervals: Rate: 73 HI: 142 QRSD: 90 QT: 380 QTc: 418 Confluence: P: -7 HI: 142 QRS: -60 T: 156 INTERPRETIVE STATEMENTS: Normal sinus rhythm Left axis deviation Possible Anterior infarct, age undetermined Abnormal ECG Compared to ECG 07/03/2018 08:24:52 Myocardial infarct finding now present ST (T wave) deviation no longer present Possible ischemia no longer present Electronically Signed On 01-21-19 16:17:02 TIE LOADER by Channing Unger
[2019-01-21 16:18] VITALS: BP 151/88; O2SAT 99
== END 2019-01-21 15:53 | disposition home or self-care (01) ==
LOC: ER 13:37
DX: M19.011 Primary osteoarthritis, right shoulder (principal); Z91.09 Other allergy status, other than to drugs and biological substances; Z88.8 Allergy status to other drugs, medicaments and biological substances; E11.9 Type 2 diabetes mellitus without complications; E78.5 Hyperlipidemia, unspecified; I10 Essential (primary) hypertension; I25.2 Old myocardial infarction; Z86.73 Personal history of transient ischemic attack (TIA), and cerebral infarction without residual deficits
CPT/HCPCS: 93005; 99283

== ENCOUNTER 2020-03-16 16:31 | Observation (INO) | payer MEDICARE ==
--- OUTSIDE RECORDS SUMMARY | 2020-03-16 16:33 | XMS REPORT | Clinical Summary ---
:1940 Author Organization [facility] Address [address] [place] [address] Care Team Providers Name Role Phone Susan Primary Care Provider Unavailable Allergies Active Allergy Reactions Severity Noted Date Comments Amoxicillin-Pot Clavulanate Other (See Comments) 04/01 Chest pain Iodine 03/31/2017 Levofloxacin 03/31/2017 Medications [...] Problem Noted Date Coronary artery disease involving [place] coronary edinson ry 03/31/2017 Essential hypertension 03/31/2017 Depression 03/31/2017 NSTEMI (non-ST elevated myocardial infarction) 018 Immunizations Name Administration Dates Next Due Pneumococcal Conjugate 13-Valent 04/02/2017 Surgical History Surgery Date Site/Laterality Comments CORONARY ARTERY BYPASS GRAFT CARDIAC CATHETERIZATION 04/03/2017 Right Procedur e: Cv left heart cath w lv gram cors; Surgeon: Katia Courtney MD; Location: [facility] Instant Printer Operator Inv asive Location; Servi ce: Cardiovascular; Laterality: Right; CARDIAC CATHETERIZATION 04/03/2017 Right Procedur e: Cv pci stent; Surgeon: Angela Courtney MD; Location: [facility] Ca th Lab Invasive Locatio n; Service: Cardiovascular; Laterality: Right; Medical History Medical History Date Comments Hyperlipidemia HTN (hypertension) [place] (mitral incompetence) TIA (transient ischemic attack) DM (diabetes mellitus) (HCC) Bronchitis Asthma Social History Tobacco Use Types Packs/Day Years Used Date Never Smoker Smokeless Tobacco: Never Used Sex Assigned at Date Recorded Not on file Last Filed Vital Signs Not on file Plan of Treatment Health Maintenance Due Date Last Done Comments COVID-19 VACCINE (1 of 2) 1956 SHINGLES VACCINES (#1) 1988 65+ PNEUMOCOCCAL VACCINE (2 of 2 - PPSV23) 04/02/201804/02 INFLUENZA VACCINE 09/14/2019 Results Not on fileafter 03/16/2019 Advance Directives For more information, please contact: [phone] Type Date Recorded Patient Delivery Route Driver Explanati on Advance Directives, Living Will 03/31/2017 5:03 PM and Medical Power of Recenterer Code Status Date Activated Date Inactivated Comments Full Code 03/31/2017 5:49 PM 04/04/2017 3:42 PM Code Status decision reached by: Patient
--- OUTSIDE RECORDS SUMMARY | 2020-03-16 16:36 | XMS REPORT | Continuity of Care Document ---
:1940 Author Organization [employer] Care Team Providers Name Role Phone [employer] Unavailable Un available Problems Problem Status Onset Classification Date Comments Sourc e Date Reported UNK Active 017 [place] 433.10/17996 Active 013 [place] 433.10, CAROTID ARTERY Active STENOSIS 013 [place] CAROTID STENOSIS Active 013 [place] OTHER Active 013 [place] Transient ischemic Resolved Problem 06/17/2016 attack (disorder) 011 [place] Limb Pain Active 04/03/2013 [facility] Carotid Artery Active 04/03/2013 [facility] Diabetes Mellitus Active 04/03/2013 [facility] Hypercholesterolemia Active 04/03/2013 [facility] , [place] Atherosclerosis Of The Active 04/03/2013 [facility] 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 [facility] DM - Diabetes mellitus Resolved Problem 04/28/2012 [place] Hypertension Resolved Problem 04/28/2012 [place] Gastroesophageal Active Problem 06/17/2016 reflux disease [place] (disorder) [place] (finding) Active Problem 06/17/2016 [facility] [place] Cough (finding) Active Problem 06/17/2016 [place] Diabetes mellitus Active Problem 06/17/2016 [facility] (disorder) [place] Myocardial infarction Active Problem 06/17/20162004 [facility] (disorder) [place] Pure Active Problem 06/17/2016 hypercholesterolemia [place] (disorder) Hypertensive disorder, Resolved Problem 06/17/2016 systemic arterial [place] (disorder) Essential hypertension Active Problem 06/17/2016 (disorder) [place] CAROTID SINUS SYNDROME Active [place] EMBOLISM AND Active THROMBOSIS OF ARTERIES [place]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 Use immediately after admixture" (Same as: Ferrlecit) MEDICATION WASTE Product Size: 62.5 mg Product Wasted: ___ mg Timolol 5 MG/ML Notes: No Longer Ophthalmic (Same As: Active 2016 Solution Timoptic, Betimol) Brimonidine Notes: No Longer tartrate 1.5 Non-formula Active 2016 [facility] st MG/ML ry. (Same Ophthalmic as: Solution Alphagan-P) Atropine 0.5 mg, 5 No Longer mL, Route: Active 2016 IVP, Drug form: INJ, PRN, Dosing Weight 66.818, kg, PRN Bradycardia , Start date: 06/11/16 22:37:00 CDT, Duration: 30 day, Stop date: 07/11/16 22:36:00 CDT Nitroglycerin Notes: No Longer 0.4 MG (Same 2016 [facility] Sublingual as:Nitroqui Tablet ck, Nitrostat) "Do Not Crush" Sublingual tablet latanoprost Notes: Keep No Longer 0.05 MG/ML refrigerate Active 2016 [facility] Ophthalmic d. (Same Solution as:Xalatan) Opened bottle may be stored at room temperature for 6 weeks Ferrlecit Notes: Inactive (sodium 2016 ferric gluconate complex (elemental iron) 62.5 mg/5 ml INJ) "Limited stability. Use immediately after admixture" (Same as: Ferrlecit) MEDICATION WASTE Product Size: 62.5 mg Product Wasted: ___ mg Plavix Notes: No Longer (Same As: Active 2016 Plavix) Hydrochlorothia 1 tab, No Longer zide 25 MG / Route: PO, Active 2016eas t Losartan Drug Form: Potassium 100 TAB, Dosing MG Oral Tablet Weight 66.818, kg, Daily, Start date: 06/10/16 9:00:00 CDT, Duration: 30 day, Stop date: 07/09/16 9:00:00 CDT Lasix Notes: Inactive (Same as: 2016 Lasix) Citalopram 10 mg, 1 No Longer tab, Route: Active 2016 PO, Drug form: TAB, Daily, Dosing Weight 66.818, kg, Start date: 06/10/16 9:00:00 CDT, Duration: 30 day, Stop date: 07/09/16 9:00:00 CDT hydrochlorothia Notes: No Longer zide 25 mg oral (Same as: Active 2016 [facility] ast tablet Hydrodiuril ) With food. Cozaar Notes: No Longer (Same as: Active 2016 [facility] Cozaar) sodium chloride 250 mL, No Longer 0.9% INJ 250 mL Rate: On Active 2016 [facility] st call for use with blood product administrat ion, Dosing Weight 66.818, kg, Route: IV, Total Volume: 250, Start Date: 06/10/16 6:30:00 CDT, Duration: 1 day, Stop date: 06/11/16 6:29:00 CDT, Replace Every: 24 hr Alprazolam 0.5 Notes: With Inactive MG Oral Tablet food or 2016 [facility] [Xanax] milk (Same as: Xanax) Symbicort Notes: No Longer 160/4.5 (Same as: Active 2016 [facility] inhalation Symbicort) aerosol with WASTE: adapter Aerosol - Return to Pharmacy atorvastatin Notes: No Longer (Same As: Active 2016 [facility] Lipitor) insulin, Notes: Roll No Longer isophane in palms of Active 2016 [facility] hands gently; Do not shake vigorously. (Same as: NovoLIN N, Humulin N) Do not hold insulin without contacting prescriber "single patient use only" WASTE: F/P - Black; E - Municipal Trash Bin Stable for 14 days at room temperature Expires in days from ___Date Dextrose 50% 25 mL, Inactive Syringe Route: IVP, 2016 [facility] Dosing Weight 66.818, kg, PRN, PRN Blood Glucose Results, Start date: 06/09/16 9:55:00 CDT, Duration: 30 day, Stop date: 07/09/16 9:54:00 CDT Glucagon 1 mg, Inactive Route: IM, 2016 [facility] PRN, Dosing Weight 66.818, kg, PRN Blood Glucose Results, Start date: 06/09/16 9:55:00 CDT, Duration: 30 day, Stop date: 07/09/16 9:54:00 CDT metoprolol Notes: No Longer tartrate (Same as: Active 2016 [facility] Lopressor) Streptococcus Notes: Inactive pneumoniae Lightly 2016 [facility] serotype 1 roll vial capsular (DO NOT antigen SHAKE) diphtheria before [id number] protein administrat conjugate ion. (Same vaccine / as: Prevnar Streptococcus 13) pneumoniae serotype 14 capsular antigen diphtheria [id number] protein conjugate vaccine / Streptococcus pneumoniae serotype 18C capsular antigen d Lovenox Notes: No Longer (Same as: 2016 [facility] Lovenox) Insulin, Notes: Roll No Longer Aspart, [facility]; Do not shake vigorously. (Same as: NovoLOG) "single patient use only" WASTE: F/P - Black; E - Municipal Trash Bin Stable for 28 days at room temperature . Expires in days from ___Date Dextrose 50% 25 gm, 50 No Longer Syringe mL, Route: 2016 [facility] IVP, Drug Form: INJ, Dosing Weight 66.818, kg, PRN, PRN Blood Glucose Results, Start date: 06/08/16 21:44:00 CDT, Duration: 30 day, Stop date: 07/08/16 21:43:00 CDT Glucagon 1 mg, No Longer Route: IM, 2016 [facility] Drug form: PDR/INJ, PRN, Dosing Weight 66.818, kg, PRN Blood Glucose Results, Start date: 06/08/16 21:44:00 CDT, Duration: 30 day, Stop date: 07/08/16 21:43:00 CDT Labetalol Notes: No Longer (Same as: 2016 [facility] Normodyne, Trandate) Push over 2 minutes Give bolus over 2-3 minutes. Hydralazine Notes: No Longer (Same as: Active 2016 [facility] Apresoline) Push over 5 minutes Hydralazine Notes: Inactive (Same as: 2016 [facility] Apresoline) Push over 5 minutes glycopyrrolate Route: IV, Inactive (ANES) Drug form: 2016 [facility] INJ, ONCE, Stop date: 06/08/16 11:45:00 CDT neostigmine Route: IV, Inactive (ANES) Drug form: 2016 [facility] INJ, ONCE, Stop date: 06/08/16 11:45:00 CDT ondansetron Route: IV, Inactive (ANES) Drug form: 2016 [facility] INJ, ONCE, Stop date: 06/08/16 11:44:00 CDT sodium chloride 1,000 mL, No Longer 0.9% 1000 ml Rate: [address] [facility] INJ 1,000 mL ml/hr, Infuse over: 10 hr, Route: IV, Dosing Weight 66.818 kg, Total Volume: 1,000, Start date: 06/08/16 11:33:00 CDT, Duration: 30 day, Stop date: 07/08/16 11:32:00 CDT Morphine Notes: No Longer (Same Active 2016 [facility] as:MORPhine Sulfate) acetaminophen-c Notes: Do No Longer odeine #[address] [facility] 4gm/day of acetaminoph en. (Same as: Tylenol with Codeine # 3) protamine Route: IV, Inactive (ANES) (ANES) Drug form: 2016 [facility] INJ, Start date: 06/08/16 11:14:00 CDT, Stop date: 06/08/16 12:14:00 CDT norepinephrine Route: IV, Inactive (ANES) Drug form: 2016 [facility] INJ, ONCE, Stop date: 06/08/16 11:04:00 CDT lidocaine Route: IV, Inactive (ANES) Drug form: 2016 [facility] INJ, ONCE, Stop date: 06/08/16 10:55:00 CDT rocuronium Route: IV, Inactive (ANES) Drug form: 2016 [facility] INJ, ONCE, Stop date: 06/08/16 10:55:00 CDT propofol (ANES) Route: IV, Inactive Drug form: 2016 [facility] INJ, ONCE, Stop date: 06/08/16 10:55:00 CDT heparin (ANES) Route: IV, Inactive Drug form: 2016 [facility] INJ, ONCE, Stop date: 06/08/16 10:55:00 CDT fentaNYL (ANES) Route: IV, Inactive Drug form: 2016 [facility] INJ, ONCE, Stop date: 06/08/16 10:54:00 CDT acetaminophen Route: IV, Inactive (ANES) (ANES) Drug form: 2016 [facility] INJ, Start date: 06/08/16 10:45:00 CDT, Stop date: 06/08/16 11:45:00 CDT famotidine Route: IV, Inactive (ANES) Drug form: 2016 [facility] INJ, ONCE, Stop date: 06/08/16 10:39:00 CDT methylPREDNISol Route: IV, Inactive one (ANES) Drug form: 2016 [facility] INJ, ONCE, Stop date: 06/08/16 10:39:00 CDT diphenhydrAMINE Route: IV, Inactive (ANES) Drug form: 2016 [facility] INJ, ONCE, Stop date: 06/08/16 10:39:00 CDT norepinephrine Route: IV, Inactive (ANES) (ANES) Drug form: 2016 [facility] INJ, Start date: 06/08/16 10:25:00 CDT, Stop date: 06/08/16 11:25:00 CDT vancomycin Route: IV, Inactive (ANES) (ANES) Drug form: [address] [facility] [address] INJ, Start date: 06/08/16 10:01:00 CDT, Stop date: 06/08/16 11:01:00 CDT sodium chloride Route: IV, Inactive 0.9% [address] [facility] INJ (ANES) Volume: 1,000, Start date: 06/08/16 9:57:00 CDT, Stop date: 06/08/16 10:57:00 CDT ceFAZolin Route: IV, Inactive (ANES) (ANES) Drug form: 2016 [facility] INJ, Start date: 06/08/16 9:51:00 CDT, Stop date: 06/08/16 10:51:00 CDT LR 1000 mL INJ Route: IV, Inactive (ANES) Total 2016 [facility] Volume: 1,000, Start date: 06/08/16 9:30:00 CDT, Stop date: 06/08/16 10:30:00 CDT Insulin regular 6 unit, Inactive Route: IV, 2016 [facility] ONCE, Dosing Weight 66.818, kg, Start date: 06/08/16 9:10:00 CDT, Stop date: 06/08/16 9:10:00 CDT Albuterol 0.833 Notes: Inactive MG/ML / (Same as: 2016 [facility] Ipratropium Duoneb) [place] 0.167 MG/ML Inhalant Solution Calcium 1,000 mL, No Longer Chloride 0.0014 Rate: 25 Active 2016 [facility] [address] MEQ/ML / ml/hr, Potassium Infuse Chloride 0.004 over: 40 MEQ/ML / Sodium hr, Route: Chloride 0.103 IV, Dosing MEQ/ML / Sodium Weight Lactate 0.028 66.818 kg, MEQ/ML Total Injectable Volume: Solution 1,000, Start date: 06/08/16 9:07:00 CDT, Duration: 1 day, Stop date: 06/09/16 9:06:00 CDT Vancomycin 2001 mg: No Longer infuse over Active 2016 [facility] 2.5 hours MEDICATION WASTE Product Size: 1000 mg Product Wasted: ___ mg Anc Notes: Same No Longer as: Ancef Active 2016 [facility] Morphine 2 mg, Inactive Route: IVP, 2016 [facility] Q3H, Dosing Weight 68.636, kg, PRN Pain Score 1-3, Start date: 06/03/16 12:29:00 CDT, Duration: 30 day, Stop date: 07/03/16 12:28:00 CDT acetaminophen-c 2 tab, Inactive odeine #3 Route: PO, 2016 [facility] Drug Form: TAB, Dosing Weight 68.636, kg, Q4H, PRN Pain Score 4-6, Start date: 06/03/16 12:29:00 CDT, Duration: 30 day, Stop date: 07/03/16 12:28:00 CDT diphenhydrAMINE Route: IV, Inactive (ANES) Drug form: 2016 [facility] INJ, ONCE, Stop date: 06/03/16 12:24:00 CDT methylPREDNISol Route: IV, Inactive one (ANES) Drug form: 2016 [facility] INJ, ONCE, Stop date: 06/03/16 12:24:00 CDT ondansetron Route: IV, Inactive (ANES) Drug form: 2016 [facility] INJ, ONCE, Stop date: 06/03/16 12:24:00 CDT fentaNYL (ANES) Route: IV, Inactive Drug form: 2016 [facility] INJ, ONCE, Stop date: 06/03/16 12:24:00 CDT midazolam Route: IV, Inactive (ANES) Drug form: 2016 [facility] SOLN, ONCE, Stop date: 06/03/16 12:24:00 CDT famotidine Route: IV, Inactive (ANES) Drug form: 2016 [facility] INJ, ONCE, Stop date: 06/03/16 12:24:00 CDT vancomycin Route: IV, Inactive (ANES) (ANES) Drug form: [address] [facility] [address] INJ, Start date: 06/03/16 12:00:00 CDT, Stop date: 06/03/16 13:00:00 CDT ceFAZolin Route: IV, Inactive (ANES) (ANES) Drug form: [address] [facility] [address] INJ, Start date: 06/03/16 11:47:00 CDT, Stop date: 06/03/16 12:47:00 CDT LR 1000 mL INJ Route: IV, Inactive (ANES) Total 2016 [facility] Volume: 1,000, Start date: 06/03/16 11:35:00 CDT, Stop date: 06/03/16 12:35:00 CDT Insulin regular 2 unit, Inactive Route: IV, 2016 [facility] ONCE, Dosing Weight 68.636, kg, Start date: 06/03/16 11:03:00 CDT, Stop date: 06/03/16 11:03:00 CDT Insulin regular 6 unit, Inactive Route: IV, 2016 [facility] ONCE, Dosing Weight 68.636, kg, Start date: 06/03/16 10:44:00 CDT, Stop date: 06/03/16 10:44:00 CDT Insulin regular 6 unit, Inactive Route: IV, 2016 [facility] ONCE, Dosing Weight 68.636, kg, Start date: 06/03/16 10:42:00 CDT, Stop date: 06/03/16 10:42:00 CDT Lactated 1,000 mL, Inactive Ringers 1,000 Rate: 40 2016 mL ml/hr, Infuse over: 25 hr, Route: IV, Dosing Weight 68.636 kg, Total Volume: 1,000, Start date: 06/03/16 10:41:00 CDT, Duration: 30 day, Stop date: 07/03/16 10:40:00 CDT Vancomycin 2001 mg: No Longer infuse over Active 2016 [facility] 2.5 hours MEDICATION WASTE Product Size: 1000 mg Product Wasted: ___ mg Anc Notes: Same No Longer as: Ancef Active 2016 Alendronic acid 70 mg = 1 Active 70 MG Oral tab, PO, 0 2016 Tablet Refill(s) Vitamin B12 1,000 Active 1000 mcg oral microgram = 2016e ast tablet 1 tab, PO, Daily, 0 Refill(s) citalopram 10 10 mg = 1 Active mg oral tablet tab, PO, 2016eas t Daily, 0 Refill(s) GlipiZIDE XL 10 10 mg = 1 Active mg oral tablet, tab, PO, 2016 st extended Daily, 0 release Refill(s) Potassium 10 mEq = 1 Active Chloride 10 MEQ tab, [facility] BID, 0 Release Tablet Refill(s) [Klor-Con] pentoxifylline 400 mg = 1 Active 400 mg oral tab, PO, 2016 tablet, TID, 0 extended Refill(s) release isosorbide 20 mg, 1 PO No Longer Alphonso 03/14/ dinitrate tab, Route: Active 2012 PO, Drug form: TAB, TID, Dosing Weight 69.091, kg, Start date: 04/26/12 13:00:00, Duration: 30 day, Stop date: 05/26/12 9:00:00 losartan 50 mg 100 mg, 2 PO Active Mougouris 04/26/ oral tablet tab, PO, 2012 Daily, 30 tab, Substitutio n Allowed, TAB metoprolol 50 75 mg, 1.5 PO Active [facility] 04/26/ mg oral tablet tab, PO, 2012eas t BID, 30 tab, Substitutio n Allowed, TAB rosuvastatin 10 20 mg, 2 PO Active [place] 04/26/ mg oral tablet tab, PO, 2012eas t QPM, 30 tab, Substitutio n Allowed, TAB isosorbide 20 mg, 1 PO Active [facility] dinitrate 20 mg tab, PO, [facility] [address] oral tablet BID, 60 tab, Substitutio n Allowed, TAB diphenhydrAMINE 25 mg, 1 PO Active [place] 04/26/ 25 mg oral tab, PO, 2012 tablet TID, PRN, 30 tab, Itching, Substitutio n Allowed, TAB aspirin 325 mg 325 mg, 1 PO Active [place] tablet, enteric tab, PO, 2012ea st coated QAM, 30 tab, Substitutio n Allowed, ECTAB acetaminophen-h 1 tab, PO, PO [facility] Q4H, PRN, 2012ea [facility] mg-5 mg oral 30 tab, tablet Pain Score 1-3, Substitutio n Allowed, Maintenance , TAB isosorbide 20 mg, 1 PO No Longer Alphonso dinitrate tab, Route: Active 2012 PO, Drug form: TAB, BID, Dosing Weight 69.091, kg, Start date: 04/25/12 21:00:00, Duration: 30 day, Stop date: 05/25/12 17:00:00 Crestor 20 mg, 2 PO No Longer Alphon[place] 04/26/ tab, Route: Active 2012 PO, Drug form: TAB, QPM, Dosing Weight 69.091, kg, Start date: 04/25/12 21:00:00, Duration: 30 day, Stop date: 05/25/12 17:00:00 methylPREDNISol 20 mg, 0.5 IV No Longer Cottrell one mL, Route: Active 2012 [facility] IV, Drug form: INJ, ONCE, Start date: 04/25/12 20:20:00, Stop date: 04/25/12 20:20:00 simvastatin 10 mg, 1 PO No Longer Cottrell tab, Route: Active 2012 [facility] PO, Drug form: TAB, Bedtime, Dosing Weight 69.091, kg, Start date: 04/24/12 21:00:00, Duration: 30 day, Stop date: 05/23/12 21:00:00 Benadryl 25 mg, 1 PO No Longer Shant tab, Route: Active 2012 [facility] PO, Drug form: TAB, TID, Dosing Weight 69.091, kg, PRN Itching, Start date: 04/24/12 4:47:00, Duration: 30 day, Stop date: 05/24/12 4:46:00 1/2 NS 1,000 mL 1,000 mL, IV No Longer Mougouris Rate: [address] [facility] ml/hr, Infuse over: 20 hr, Route: IV, kg, Total Volume: 1,000, Start date: 04/22/12 19:46:00, Duration: 30 day, Stop date: 05/22/12 19:45:00 Robitussin 100 200 mg, 10 PO No Longer Aboussleman mg/5 mL oral mL, Route: [facility] PO, Drug form: LIQ, Q4H, Dosing Weight 69.091, kg, Start date: 04/22/12 14:24:00, Duration: 30 day, Stop date: 05/22/12 12:00:00 potassium 20 mEq, 100 IVPB No Longer Terry chloride mL, Route: Active 2012 [facility] IVPB, Drug form: INJ, Q2H, Start date: 04/22/12 10:00:00, Duration: 2 doses or times, Stop date: 04/22/12 12:00:00 Geodon 10 mg, IM No Longer Terminella Route: IM, [facility] 2012 [facility] Drug form: PDR/INJ, Q8H, PRN Anxiety, Start date: 04/22/12 0:52:00, Duration: 30 day, Stop date: 05/22/12 0:51:00 aspirin 325 mg 325 mg, 1 PO No Longer Marcin tablet, enteric tab, Route: Active 2012 [facility] coated PO, Drug form: ECTAB, QAM, Start date: 04/21/12 9:00:00, Duration: 30 day, Stop date: 05/20/12 9:00:00 famotidine 20 mg, 1 PO No Longer Terminella tab, Route: 2012 [facility] PO, Drug form: TAB, Daily, Dosing Weight 69.091, kg, Start date: 04/21/12 9:00:00, Duration: 30 day, Stop date: 05/20/12 9:00:00 niCARdipine IV, [facility] 2012 [facility] 04/20/12 17:35:00, Duration: 30, 200 ml, 69.091 Sodium Chloride 1,000 mL, IV No Longer [place] 0.9% IV 1,000 Rate: [address] [facility] mL ml/hr, Infuse over: 14.3 hr, Route: IV, kg, Total Volume: 1,000, Start date: 04/20/12 15:38:00, Stop date: 05/20/12 15:37:00 Tylenol 650 mg, 1 NE No Longer Acosta supp, [facility] 2012 [facility] Route: NE, Drug form: SUPP, Q4H, PRN Fever, Start date: 04/20/12 15:36:00, Duration: 30 day, Stop date: 05/20/12 15:35:00 Tylenol 650 mg, 2 PO No Longer Acosta tab, Route: Active 2012 [facility] PO, Drug form: TAB, Q4H, PRN Fever, Start date: 04/20/12 15:35:00, Duration: 30 day, Stop date: 05/20/12 15:34:00 Zofran 4 mg, 2 mL, IVP No Longer Acosta Route: IVP, Active 2012 [facility] Drug form: INJ, Q6H, PRN Nausea & Vomiting, Start date: 04/20/12 15:33:00, Duration: 30 day, Stop date: 05/20/12 15:32:00 morphine 4 mg, 2 mL, IV No Longer [facility] Sulfate Route: IV, 2012 [facility] Drug form: INJ, Q2H, PRN Pain Score 7-10, Start date: 04/20/12 15:27:00, Duration: 30 day, Stop date: 05/20/12 15:26:00 morphine 2 mg, 1 mL, IV No Longer Acosta Sulfate Route: IV, Active 2012 [facility] Drug form: INJ, Q2H, PRN Pain Score 6-10, Start date: 04/20/12 15:24:00, Duration: 30 day, Stop date: 05/20/12 15:23:00 acetaminophen-h 2 tab, PO No Longer Acosta ydrocodone 325 Route: PO, Active 2012 [facility] ast mg-5 mg oral Drug Form: tablet TAB, Q4H, PRN Pain Score 4-6, Start date: 04/20/12 15:24:00, Duration: 30 day, Stop date: 05/20/12 15:23:00 acetaminophen-h 1 tab, PO No Longer Acosta ydrocodone 325 Route: PO, [facility] mg oral Drug Form: tablet TAB, Q4H, PRN Pain Score 1-3, Start date: 04/20/12 15:23:00, Duration: 30 day, Stop date: 05/20/12 15:22:00 hydrALAZINE 10 mg, 0.5 IV No Longer Acosta mL, Route: 2012 [facility] IV, Drug form: INJ, Q6H, PRN Other -See Comment, Start date: 04/20/12 15:19:00, Duration: 30 day, Stop date: 05/20/12 15:18:00 Lactated 1,000 mL, IV No Longer Acosta Ringers Rate: [address] [facility] Injection IV ml/hr, 1,000 mL Infuse over: 40 hr, Route: IV, kg, Total Volume: 1,000, Start date: 04/20/12 9:59:00, Duration: 1 day, Stop date: 04/21/12 9:58:00 losartan 100 mg, 2 PO No Longer Mougouris tab, Route: Active 2012 [facility] PO, Drug form: TAB, Daily, Dosing Weight 68.182, kg, Start date: 04/20/12 9:00:00, Duration: 30 day, Stop date: 05/19/12 9:00:00 heparin 5,000 unit, SUB-Q No Longer Mougouris 1 mL, Active 2012 [facility] Route: SUB-Q, Drug form: INJ, Q12H, Dosing Weight 68.182, kg, Start date: 04/19/12 21:00:00, Duration: 30 day, Stop date: 05/19/12 9:00:00 latanoprost 1 drp, OPTH No Longer Mougouris ophthalmic Route: Active 2012 [facility] 0.005% solution OPTH, Bedtime, Drug form: SOLN, Start date: 04/19/12 21:00:00, Duration: 30 day, Stop date: 05/18/12 21:00:00 atropine 0.5 mg, 5 IVP No Longer Terry mL, Route: Active 2012 [facility] IVP, Drug form: INJ, PRN, PRN Bradycardia , Start date: 04/19/12 17:18:00, Duration: 30 day, Stop date: 05/19/12 18:17:00 nitroglycerin 0.4 mg, 1 SL No Longer Terry 04/19/ 0.4 mg tab, Route: Active 2012 [facility] sublingual SL, Drug tablet form: TAB, Q5Min, PRN Chest Pain, Start date: 04/19/12 17:18:00, Duration: 30 day, Stop date: 05/19/12 18:17:00 vancomycin 1 gm, 200 IVPB No Longer Marcin mL, Route: Active 2012 [facility] IVPB, Drug form: INJ, ONCALL, Start date: 04/19/12 17:00:00, Duration: 1 day, Stop date: 04/20/12 16:59:00 cefazolin + 1 gm, IVPB No Longer Marcin S[facility] Route: [facility] [address] [facility] 100 mL IVPB, ONCALL, Start date: 04/19/12 17:00:00, Duration: 1 day, Stop date: 04/20/12 16:59:00 Lopressor 75 mg, 3 PO No Longer Mougouris tab, Route: Active 2012 [facility] PO, Drug form: TAB, BID, Dosing Weight 68.182, kg, Start date: 04/19/12 17:00:00, Stop date: 05/19/12 9:00:00 timolol 1 drp, BOTH EYES No Longer Mougouris ophthalmic 0.5% Route: BOTH Active 2012 [facility] solution EYES, QPM, Drug form: SOLN, Start date: 04/19/12 17:00:00, Stop date: 05/18/12 17:00:00 brimonidine 1 drp, OPTH No Longer Mougouris ophthalmic Route: Active 2012 [facility] 0.15% solution OPTH, BID, Drug form: SOLN, Start date: 04/19/12 17:00:00, Stop date: 05/19/12 9:00:00 baclofen 10 mg, 1 PO No Longer Mougouris tab, Route: Active 2012 [facility] PO, Drug form: TAB, BID, Dosing Weight 68.182, kg, Start date: 04/19/12 17:00:00, Duration: 30 day, Stop date: 05/19/12 9:00:00 aspirin 325 mg 325 mg, 1 PO No Longer Marcin tablet tab, Route: Active 2012 [facility] PO, Drug form: TAB, Daily, Start date: 04/19/12 16:44:00, Duration: 30 day, Stop date: 05/19/12 9:00:00 Ativan 1 mg, 0.5 INJ No Longer Mougouris mL, Route: Active 2012 [facility] INJ, Drug form: INJ, Q6H, Dosing Weight 68.182, kg, PRN as needed for anxiety, Start date: 04/19/12 12:50:00, Duration: 30 day, Stop date: 05/19/12 12:49:00 clonidine 0.1 mg, 1 PO No Longer Mougouris tab, Route: [facility] 2012 [facility] PO, Drug form: TAB, Q8H, Dosing Weight 68.182, kg, PRN Hypertensio n, Start date: 04/19/12 12:50:00, Duration: 30 day, Stop date: 05/19/12 12:49:00 Dextrose 50% 25 gm, 50 IVP No Longer Mougouris Syringe mL, Route: 2012 [facility] IVP, Drug Form: INJ, Dosing Weight 68.182, kg, PRN, PRN Blood Glucose Results, Start date: 04/19/12 12:49:00, Duration: 30 day, Stop date: 05/19/12 13:48:00 glucagon 1 mg, IM No Longer [place] Route: IM, [place] [facility] [address] [facility] Drug form: PDR/INJ, PRN, Dosing Weight 68.182, kg, PRN Blood Glucose Results, Start date: 04/19/12 12:49:00, Duration: 30 day, Stop date: 05/19/12 13:48:00 insulin aspart 1 unit, SUB-Q No Longer Mougour[facility] 0.01 mL, 2012 [facility] Route: SUB-Q, Drug form: SOLN, TID-Before Meals, Dosing Weight 68.182, kg, PRN Blood Glucose Results, Start date: 04/19/12 12:49:00, Duration: 30 day, Stop date: 05/19/12 12:48:00 Symbicort 2 INHALATIO No Longer [place] 160/4.5 inhalation, N 2012 [facility] inhalation Route: aerosol with INHALATION, adapter Drug Form: AERO/A, Dosing Weight 68.182, kg, PRN, PRN Shortness of breath, Start date: 04/19/12 12:47:00, Duration: 30 day, Stop date: 05/19/12 13:46:00, sob aspirin 325 mg 325 mg, PO No Longer Marcin tablet Route: PO, [facility] [address] [facility] Drug form: TAB, ONCE, Dosing Weight 68.182, kg, Priority: STAT, Start date: 04/19/12 12:25:00, Stop date: 04/19/12 12:25:00 hydrALAZINE 20 mg, 1 IV No Longer Marcin mL, Route: Active 2012 [facility] IV, Drug form: INJ, Q6H, Dosing Weight 68.182, kg, PRN Elevated BP, Start date: 04/19/12 6:07:00, Duration: 30 day, Stop date: 05/19/12 6:06:00, SBP >165 brimonidine 1 drp, OPT Active [facility] ophthalmic OPTH, BID, 2012 0.15% solution 5 ml, Substitute Allowed, SOLN latanoprost 1 drp, OPT [facility], 2012 0.005% solution Bedtime, 3 ml, Substitute Allowed, SOLN timolol 1 drp, OPT Active [facility] ophthalmic OPTH, QPM, 2012 long-acting, 5 ml, 0.5% solution Substitute Allowed, SOLN Symbicort 2 puff, INHALATIO Active [facility] 160/4.5 INHALATION, N 2012 inhalation PRN, PRN aerosol with for cough, adapter Substitutio n Allowed, Maintenance PRN for cough losartan 100 mg 100 mg, 1 PO Active [facility] oral tablet tab, PO, 2012 Daily, 30 tab, Substitutio n Allowed, TAB Metoprolol 50 mg, 1 PO [facility] mg tab, PO, [facility] B[facility], Substitutio n Allowed glyBURIDE-metfo 2 tab, PO, PO Active rmin 5 mg-500 BID, 60 2012 mg oral tablet tab, Substitutio n Allowed, Maintenance , TAB baclofen 10 mg, PO, PO Active [facility] BID, 2012 Substitutio n Allowed Saline Flush 5 ml, IVP No Longer [facility] 0.9% Route: IVP, Active 2012 Drug Form: INJ, Dosing Weight 68.182, kg, PRN, PRN Line Flush, Start date: 04/19/12 0:44:00, Duration: 30 day, Stop date: 05/19/12 1:43:00 acetaminophen 650 mg, 2 PO No Longer [facility] tab, Route: [facility] [address] [facility] PO, Drug form: TAB, Q4H, Dosing Weight 68.182, kg, PRN Pain/Fever, Start date: 04/19/12 0:44:00, Duration: 30 day, Stop date: 05/19/12 0:43:00 ondansetron 4 mg, 2 mL, IVP No Longer [facility] Route: IVP, [facility] [address] [facility] Drug form: INJ, Q6H, Dosing Weight 68.182, kg, PRN Nausea & Vomiting, Start date: 04/19/12 0:44:00, Duration: 30 day, Stop date: 05/19/12 0:43:00 Sodium Chloride 1,000 mL, IV No Longer Marcin 0.9% IV 1,000 Rate: 40 [facility] [address] [facility] mL ml/hr, Infuse over: 25 hr, Route: IV, kg, Total Volume: 1,000, Start date: 04/19/12 0:44:00, Duration: 30 day, Stop date: 05/19/12 0:43:00 Benadryl 50 mg, IVP No Longer [facility] Route: IVP, [facility] [address] [facility] ONCE, Dosing Weight 68.182, kg, Priority: STAT, Start date: 04/18/12 21:13:00, Stop date: 04/18/12 21:13:00 SoluMedrol 125 mg, IVP No Longer [facility] Route: IVP, [address] ONCE, Dosing Weight 68.182, kg, Priority: STAT, Start date: 04/18/12 21:12:00, Stop date: 04/18/12 21:12:00 Saline Flush 5 mL, IVP No Longer [facility] 0.9% Route: IVP, [facility] [address] [facility] Drug Form: INJ, Dosing Weight 68.182, kg, Q8H, PRN Line Flush, Start date: 04/18/12 21:05:00, Duration: 30 day, Stop date: 05/18/12 21:04:00, Administer at least once every 8 hoursAdmini ster at least once every 8 hours Losartan (Active) Active [facility] Potassium TABS [facility]ician s Clopidogrel (Active) Active [facility] Bisulfate 75 MG Physicia ns Oral Tablet Aspirin TABS (Active) Active [facility] Metoprolol (Active) Active [facility] Tartrate [facility] Baclofen TABS (Active) Active [facility] GlyBURIDE-MetFO (Active) Active [facility] RMIN TABS [facility] Brimonidine (Active) Active [facility] Tartrate SOLN [facility] Atorvastatin (Active) Active [facility] Calcium [facility]S [facility] Timolol Maleate (Active) Active [facility] 0.5 % [facility] Ophthalmic Gel Forming Solution Xalatan SOLN (Active) Active [facility] Citalopram (Active) Active [facility] Hydrobromide [facility] TABS HydrALAZINE HCl (Active) Active [facility] TABS [facility] Allergies, Adverse Reactions, Alerts Substance Category Reaction Severity Reaction Status Date Comments S ource type Reported No Known drug drug Active [facility] Drug allergy allergy Physicia ns Allergies iodine Assertion Drug Active allergy [place] Bactrim Assertion Drug Active [facility] allergy [place] Immunizations Immunization Date Site Status Last Comments Source Given Updated pneumococcal Right completed [facility] heast 13-valent 7 deltoid vaccine influenza virus completed [facility] vaccine, 2 inactivated influenza virus completed [facility] vaccine, 2 inactivated Hx pneumococcal completed [facility] vaccine 2 Hx pneumococcal completed [facility] vaccine 2 Results Order Name Results Value Reference Date Interpretation Comments Virginie rce Range CHEM PANEL eGFR 86 06/13 Result Comment: The [facility] eGFR is calculated using the CKD-EPI formula. In most young, healthy individuals the eGFR will be >90 mL/min/1.73m2 . The eGFR declines with age. An eGFR of 60-89 may be normal in some populations, particularly the elderly, for whom the CKD-EPI formula has not been extensively validated. Use of the eGFR is not recommended in the following populations:< br/>
Batsheva viduals with unstable creatinine concentration s, including patients and those with serious co-morbid conditions.<b r/>
Patie nts with extremes in muscle mass or diet.

The data above are obtained from the National Kidney Disease Education Program (NKDEP) which additionally recommends that when the eGFR is used in patients with extremes of body mass index for purposes of drug dosing, the eGFR should be multiplied by the estimated BMI. CHEM PANEL Calcium Lvl 8.9 8.5 - 10.5 05/ [facility] CHEM PANEL Total 6.2 6.4 - 8.4 05/ [facility] CHEM PANEL Bili Total 0.5 0.2 - 1.3 06/13 [facility] CHEM PANEL CO2 30 24 - 32 05/ [facility] CHEM PANEL ALT 18 0 - 65 05/ [facility] CHEM PANEL Albumin Lvl 2.9 3.5 - 5.0 05/ [facility] CHEM PANEL AST 15 0 - 37 05/ [facility] CHEM PANEL Alk Phos 71 39 - 136 05 [facility] CHEM PANEL Chloride Lvl 100 95 - 109 06/13 [facility] CHEM PANEL Sodium Lvl 140 135 - 145 06/13 [facility] CHEM PANEL Creatinine 0.64 0.50 - 05/ MH Lvl 1.40 [facility] CHEM PANEL BUN 23 7 - 22 05 [facility] CHEM PANEL Potassium 3.5 3.5 - 5.1 05/ Lvl [facility] CHEM PANEL Glucose Lvl 134 70 - 99 05 [facility] CHEM PANEL A/G Ratio 0.9 0.7 - 1.6 05 [facility] CHEM PANEL Globulin 3.3 2.7 - 4.2 06/13 [facility] CHEM PANEL B/C Ratio 36 6 - 25 05/ [facility] CHEM PANEL AGAP 13.5 10.0 - [address] [facility] HEMATOLOGY MCHC 34.1 32.0 - [address] [facility] HEMATOLOGY MPV 9.4 7.4 - 10.[address] [facility] HEMATOLOGY RDW 17.1 11.5 - 05/ MH 14.5 /2016 [facility] HEMATOLOGY MCH 26.8 27.0 - [address] [facility] HEMATOLOGY Platelet 198 133 - [address] [facility] HEMATOLOGY WBC 9.9 3.7 - 10.[address] [facility] HEMATOLOGY Hgb 8.2 12.0 - 05/ MH 16.0 /2016 [facility] HEMATOLOGY RBC 3.05 4.20 - 05/ MH 5.40 /2016 [facility] HEMATOLOGY MCV 78.5 80.0 - 05/ 98.0 /2016 [facility] HEMATOLOGY Hct 23.9 36.0 - [address] [facility] HEMATOLOGY Microcyte 1+ None Seen 06/13 *ABN* /2016 [facility] (06/13/16 6:25 AM) HEMATOLOGY Basophils # 0.1 0.0 - 0.2 / [facility] HEMATOLOGY Eosinophils 0.2 0.0 - 0.5 05/ MH # /2016 [facility] HEMATOLOGY Monocytes # 0.7 0.0 - 0.[address] [facility] HEMATOLOGY Lymphocytes 17.6 20.0 - 05/ 40.0 /2016 [facility] HEMATOLOGY Segs 73.1 45.0 - 06/13 75.0 /2016 [facility] HEMATOLOGY Basophils 0.5 0.0 - 1.0 / [facility] HEMATOLOGY Eosinophils 2.2 0.0 - 4.0 / [facility] HEMATOLOGY Monocytes 6.6 2.0 - 12.0 06/13 [facility] HEMATOLOGY Lymphocytes 1.7 1.0 - 5.5 06/13 MH # /2016 [facility] HEMATOLOGY Segs-Bands # 7.2 1.5 - 8.[address] [facility] HEMATOLOGY Hgb 8.0 12.0 - 06/12 16.0 /2016 [facility] HEMATOLOGY Hct 24.0 36.0 - 06/12 48.0 /2016 [facility] BLOOD BANK RBC product Product available 1 06/10 Resul t RESULTS (06/10/16 6:30 AM) Comment: [facility] 06/10/2016 06:42 [id number]
notified [facility] in 3b CHEM PANEL eGFR 85 06/10 Result Comment: The [facility] eGFR is calculated using the CKD-EPI formula. In most young, healthy individuals the eGFR will be >90 mL/min/1.73m2 . The eGFR declines with age. An eGFR of 60-89 may be normal in some populations, particularly the elderly, for whom the CKD-EPI formula has not been extensively validated. Use of the eGFR is not recommended in the following populations:< br/>
Batsheva viduals with unstable creatinine concentration s, including patients and those with serious co-morbid conditions.<b r/>
Patie nts with extremes in muscle mass or diet.

The data above are obtained from the National Kidney Disease Education Program (NKDEP) which additionally recommends that when the eGFR is used in patients with extremes of body mass index for purposes of drug dosing, the eGFR should be multiplied by the estimated BMI. CHEM PANEL Creatinine 0.66 0.50 - 06/[address] [facility] CHEM PANEL Potassium 3.9 3.5 - 5.1 06/[address] [facility] CHEM PANEL Sodium Lvl 143 135 - 145 06/10 [facility] CHEM PANEL Chloride Lvl 109 95 - 109 06/10 [facility] CHEM PANEL CO2 25 24 - 32 06/10 [facility] CHEM PANEL AGAP 12.9 10.0 - 06/[address] [facility] CHEM PANEL Calcium Lvl 7.9 8.5 - 10.5 06/10 [facility] CHEM PANEL Glucose Lvl 143 70 - 99 06/10 [facility] CHEM PANEL BUN 19 7 - 22 06/10 [facility] CHEM PANEL Magnesium 2.1 1.8 - 2.4 06/10 [facility] CHEM PANEL Phosphorus 2.8 2.5 - 4.5 06/10 [facility] HEMATOLOGY Hgb 7.3 12.0 - 06/[address] [facility] HEMATOLOGY RBC 2.77 4.20 - 06/[address] [facility] HEMATOLOGY WBC 8.1 3.7 - 10.4 06/10 [facility] HEMATOLOGY MPV 9.8 7.4 - 10.4 06/10 [facility] HEMATOLOGY Platelet 138 133 - 450 06/10 [facility] HEMATOLOGY MCV 78.7 80.0 - 06/[address] [facility] HEMATOLOGY RDW 16.6 11.5 - 06/[address] [facility] HEMATOLOGY MCHC 33.4 32.0 - 06/[address] [facility] HEMATOLOGY Hct 21.8 36.0 - 06/[address] [facility] HEMATOLOGY MCH 26.3 27.0 - 06/[address] [facility] HEMATOLOGY Microcyte 1+ None Seen 06/10 *ABN* /2016 [facility] (06/10/16 4:06 AM) HEMATOLOGY Segs-Bands # 5.6 1.5 - 8.1 06/10 [facility] HEMATOLOGY Eosinophils 0.1 0.0 - 0.5 06/10 MH # /2017 [facility] HEMATOLOGY Monocytes # 0.5 0.0 - 0.8 06/10 [facility] HEMATOLOGY Basophils 0.3 0.0 - 1.0 06/10 [facility] HEMATOLOGY Lymphocytes 1.9 1.0 - 5.5 06/10 MH # /2017 [facility] HEMATOLOGY Eosinophils 0.9 0.0 - 4.0 06/10 [facility] HEMATOLOGY Monocytes 6.5 2.0 - 12.0 06/10 [facility] HEMATOLOGY Lymphocytes 23.3 20.0 - 06/[address] [facility] HEMATOLOGY Segs 69.0 45.0 - 06/10 MH 75.0 /2016 [facility] CHEM PANEL eGFR 84 06/09 Result Comment: The [facility] eGFR is calculated using the CKD-EPI formula. In most young, healthy individuals the eGFR will be >90 mL/min/1.73m2 . The eGFR declines with age. An eGFR of 60-89 may be normal in some populations, particularly the elderly, for whom the CKD-EPI formula has not been extensively validated. Use of the eGFR is not recommended in the following populations:< br/>
Batsheva viduals with unstable creatinine concentration s, including patients and those with serious co-morbid conditions.<b r/>
Patie nts with extremes in muscle mass or diet.

The data above are obtained from the National Kidney Disease Education Program (NKDEP) which additionally recommends that when the eGFR is used in patients with extremes of body mass index for purposes of drug dosing, the eGFR should be multiplied by the estimated BMI. CHEM PANEL Creatinine 0.70 0.50 - 06/[address] [facility] CHEM PANEL Potassium 3.8 3.5 - 5.1 06/09 MH Lvl /2016 [facility] CHEM PANEL Sodium Lvl 140 135 - 145 06/09 [facility] CHEM PANEL Glucose Lvl 215 70 - 99 06/09 [facility] CHEM PANEL BUN 20 7 - 22 06/09 [facility] CHEM PANEL Calcium Lvl 7.6 8.5 - 10.5 06/09 [facility] CHEM PANEL Chloride Lvl 105 95 - 109 06/09 [facility] CHEM PANEL AGAP 10.8 10.0 - 06/[address] [facility] CHEM PANEL CO2 28 24 - 32 04 /2016 [facility] HEMATOLOGY RBC 3.07 4.20 - 06/09 MH 5.40 /2016 [facility] HEMATOLOGY MCV 77.3 80.0 - 06/09 98.0 /2016 [facility] HEMATOLOGY WBC 9.5 3.7 - 10.4 06/09 [facility] HEMATOLOGY MCHC 33.5 32.0 - 06/09 MH 36.0 /2016 [facility] HEMATOLOGY RDW 16.4 11.5 - 06/09 MH 14.5 /2016 [facility] HEMATOLOGY MCH 25.9 27.0 - 06/09 MH 31.0 /2016 [facility] HEMATOLOGY Platelet 153 133 - 450 06/09 /2016 [facility] HEMATOLOGY MPV 9.1 7.4 - 10.4 06/09 /2016 [facility] HEMATOLOGY Microcyte 1+ None Seen 06/09 *ABN* /2016 [facility] (06/09/16 4:37 AM) HEMATOLOGY Lymphocytes 13.1 20.0 - 06/09 40.0 /2016 [facility] HEMATOLOGY Monocytes 7.3 2.0 - 12.0 06/09 /2016 [facility] HEMATOLOGY Segs-Bands # 7.6 1.5 - 8.1 06/09 /2016 [facility] HEMATOLOGY Basophils 0.2 0.0 - 1.0 06/09 /2016 [facility] HEMATOLOGY Segs 79.4 45.0 - 06/[address] [facility] HEMATOLOGY Lymphocytes 1.3 1.0 - 5.5 06/09 MH # /2016 [facility] HEMATOLOGY Monocytes # 0.7 0.0 - 0.8 06/09 /2016 [facility] BACTERIAL MRSA by PCR Negative 06/08 - SEROLOGY (06/08/16 1:43 PM) /2016 [facility]ast BLOOD BANK Antibody Negative 06/08 RESULTS Scrn (06/08/16 7:38 AM) /2016 [facility] ast BLOOD BANK ABO/Rh O POS 06/08 RESULTS /2016 [facility] HEMATOLOGY INR 1.04 0.85 - 06/08 MH 1. /2016 [facility] HEMATOLOGY PT 13.8 12.0 - 06/[address] [facility] HEMATOLOGY PTT 30.6 22.9 - 06/08 35.8 /2016 [facility] HEMATOLOGY Eosinophils 0.2 0.0 - 0.5 06/08 MH # /2016 [facility] HEMATOLOGY Eosinophils 1.6 0.0 - 4.[address] [facility] CHEM PANEL eGFR 62 05/26 Result Comment: The [facility] eGFR is calculated using the CKD-EPI formula. In most young, healthy individuals the eGFR will be >90 mL/min/1.73m2 . The eGFR declines with age. An eGFR of 60-89 may be normal in some populations, particularly the elderly, for whom the CKD-EPI formula has not been extensively validated. Use of the eGFR is not recommended in the following populations:< br/>
Batsheva viduals with unstable creatinine concentration s, including patients and those with serious co-morbid conditions.<b r/>
Patie nts with extremes in muscle mass or diet.

The data above are obtained from the National Kidney Disease Education Program (NKDEP) which additionally recommends that when the eGFR is used in patients with extremes of body mass index for purposes of drug dosing, the eGFR should be multiplied by the estimated BMI. CHEM PANEL Sodium Lvl 140 135 - 145 05/26 [facility] CHEM PANEL Creatinine 0.90 0.50 - 05/[address] [facility] CHEM PANEL Chloride Lvl 102 95 - 109 05/26 [facility] CHEM PANEL Potassium 3.6 3.5 - 5.1 05/[address] [facility] CHEM PANEL CO2 30 24 - 32 05/26 [facility] CHEM PANEL Calcium Lvl 8.9 8.5 - 10.5 05/26 [facility] CHEM PANEL Glucose Lvl 185 70 - 99 05/26 [facility] CHEM PANEL BUN 20 7 - 22 05/26 [facility] CHEM PANEL AGAP 11.6 10.0 - 05/[address] [facility] HEMATOLOGY Microcyte 1+ None Seen 05/26 *ABN* /2016 [facility] (05/26/16 9:42 AM) HEMATOLOGY Monocytes # 0.5 0.0 - 0.8 05/26 [facility] HEMATOLOGY Eosinophils 0.2 0.0 - 0.5 05/26 MH # /2016 [facility] HEMATOLOGY Lymphocytes 1.6 1.0 - 5.5 05/26 # [facility] HEMATOLOGY Segs-Bands # 6.9 1.5 - 8.1 05/26 [facility] HEMATOLOGY Basophils 0.4 0.0 - 1.0 05/26 [facility] HEMATOLOGY Monocytes 4.9 2.0 - 12.0 05/26 /2016 [facility] HEMATOLOGY Eosinophils 1.8 0.0 - 4.0 05/26 /2016 [facility] HEMATOLOGY Lymphocytes 17.4 20.0 - 05/26 MH 40.0 /2016 [facility] HEMATOLOGY Segs 75.5 45.0 - 05/26 MH 75.0 /2016 [facility] HEMATOLOGY Platelet 169 133 - 450 05/26 /2016 [facility] HEMATOLOGY MCH 25.9 27.0 - 05/26 MH 31.0 /2016 [facility] HEMATOLOGY MPV 9.8 7.4 - 10.4 05/26 /2016 [facility] HEMATOLOGY RDW 16.2 11.5 - 05/26 MH 14.5 /2016 [facility] HEMATOLOGY MCHC 33.0 32.0 - 05/26 MH 36.0 /2016 [facility] HEMATOLOGY Hct 37.2 36.0 - 05/26 MH 48.0 /2016 [facility] HEMATOLOGY MCV 78.3 80.0 - 05/26 98.0 /2016 [facility] HEMATOLOGY Hgb 12.3 12.0 - 05/26 16.0 /2016 [facility] HEMATOLOGY RBC 4.75 4.20 - 05/26 MH 5.40 /2016 [facility] HEMATOLOGY WBC 9.2 3.7 - 10.4 05/26 /2016 [facility] HEMATOLOGY PT 13.8 12.0 - 05/26 MH 14.7 /2016 [facility] HEMATOLOGY INR 1.04 0.85 - 05/26 MH 1.17 /2016 [facility] HEMATOLOGY PTT 32.1 22.9 - 05/26 35.8 /2016 [facility] BEDSIDE Gluc POC 186 70 - 99 04/26 HI <sup>2</sup>I GLUCOSE Lifsc nterpretive [facility] TESTING Data: Upper Reportable Limit: 200 mg/dL. BEDSIDE Gluc POC 219 70 - 99 04/26 HI <sup>3</sup>I GLUCOSE Lifscn nterpretive [facility] TESTING Data: Upper Reportable Limit: 200 mg/dL. BEDSIDE Gluc POC 201 70 - 99 04/26 HI <sup>4</sup>I GLUCOSE Lifscn nterpretive [facility] TESTING Data: Upper Reportable Limit: 200 mg/dL. BEDSIDE Comment1 Notify 04/26 NA GLUCOSE RN/ /2012 [facility] TESTING BEDSIDE Comment1 Notify 04/26 [facility] GLUCOSE RN/ /2012 [facility] TESTING BEDSIDE Comment1 Notify 04/25 [facility] GLUCOSE RN/ [facility] TESTING CHEMISTRY Sodium Lvl 144 135 - [address] [facility] CHEMISTRY Chloride Lvl 105 95 - 109 04/[address] [facility] CHEMISTRY Potassium 3.6 3.5 - 5.1 04/[address] [facility] CHEMISTRY eGFR 96 04/25 NA <sup>5</sup>R esult [facility] Comment: The eGFR is calculated using the CKD-EPI formula. In most young, healthy individuals the eGFR will be >90 mL/min/1.73m2 . The eGFR declines with age. An eGFR of 60-89 may be normal in some populations, particularly the elderly, for whom the CKD-EPI formula has not been extensively validated. Use of the eGFR is not recommended in the following populations:& lt;br/>
I ndividuals with unstable creatinine concentration s, including patients and those with serious co-morbid conditions.<b r/>
Patie nts with extremes in muscle mass or diet.

The data above are obtained from the National Kidney Disease Education Program (NKDEP) which additionally recommends that when the eGFR is used in patients with extremes of body mass index for purposes of drug dosing, the eGFR should be multiplied by the estimated BMI. CHEMISTRY Creatinine 0.5 0.5 - 1.4 04/[address] [facility] CHEMISTRY CO2 28 24 - 32 04/[address] [facility] CHEMISTRY Calcium Lvl 7.8 8.5 - 10.5 04/[address] [facility] CHEMISTRY BUN 14 7 - 22 04/[address] [facility] CHEMISTRY Glucose Lvl 118 70 - 99 04/25 HI <sup>8</sup>I nterpretive [facility] Data: Adult reference range values reflect the clinical guidelines
of the [place] [employer]. CHEMISTRY AGAP 14.6 10.0 - 04/[address] [facility] HEMATOLOGY Platelet 183 133 - 450 04/[address] [facility] HEMATOLOGY MCHC 32.4 32.0 - 04/25 Normal 36.0 /2012 [facility] HEMATOLOGY RDW 15.7 11.5 - 04/[address] [facility] HEMATOLOGY MCH 26.8 27.0 - 04/[address] [facility] HEMATOLOGY MCV 82.8 81.0 - 03 Normal MH 99.0 /2012 [facility] HEMATOLOGY MPV 9.9 7.4 - 10.4 03/ Normal /2012 [facility] HEMATOLOGY Hct 29.4 36.0 - 03/ LOW MH 48.0 /2012 [facility] HEMATOLOGY Hgb 9.5 12.0 - 03/ LOW MH 16.0 /2012 [facility] HEMATOLOGY RBC 3.55 4.20 - 03 LOW MH 5.40 /2012 [facility] HEMATOLOGY WBC 8.9 3.7 - 10.4 03/ Normal /2012 [facility] HEMATOLOGY Segs-Bands # 7.2 1.5 - 8.1 03/ Normal /2012 [facility] HEMATOLOGY Basophils 0.1 0.0 - 1.0 03/ Normal /2012 [facility] HEMATOLOGY Basophils # 0.0 0.0 - 0.2 03/ Normal /2012 [facility] HEMATOLOGY Eosinophils 0.4 0.0 - 0.5 / Normal MH # /2012 [facility] HEMATOLOGY Monocytes # 0.4 0.0 - 0.8 04/25 Normal /2012 [facility] HEMATOLOGY Lymphocytes 0.8 1.0 - 5.5 / LOW MH # /2012 [facility] HEMATOLOGY Eosinophils 4.8 0.0 - 4.0 03/ HI MH /2012 [facility] HEMATOLOGY Monocytes 4.8 2.0 - 12.0 / Normal /2012 [facility] HEMATOLOGY Lymphocytes 8.9 20.0 - 03 LOW MH 40.0 /2012 [facility] HEMATOLOGY Segs 81.4 45.0 - 03 HI MH 75.0 /2012 [facility] CHEMISTRY Magnesium 2.1 1.8 - 2.4 04/[address] [facility] CHEMISTRY Chloride Lvl 106 95 - 109 04/24 Normal [facility] CHEMISTRY Potassium 3.5 3.5 - 5.1 04/24 Normal Lvl /2012 [facility] CHEMISTRY Sodium Lvl 144 135 - 145 04/24 Normal [facility] CHEMISTRY Globulin 2.7 2.0 - 4.0 04/[address] [facility] CHEMISTRY A/G Ratio 1.0 0.7 - 1.6 04/[address] [facility] CHEMISTRY Bili Total 0.9 0.2 - 1.3 04/[address] [facility] CHEMISTRY ALT 12 0 - 65 04/[address] [facility] CHEMISTRY Alk Phos 60 39 - 136 04/[address] [facility] CHEMISTRY Creatinine 0.5 0.5 - 1.4 04/24 Normal MH Lvl /2012 [facility] CHEMISTRY CO2 31 24 - 32 04/[address] [facility] CHEMISTRY Glucose Lvl 93 70 - 99 04/24 Normal <sup>9</sup>I nterpretive [facility] Data: Adult reference range values reflect the clinical guidelines
of the [place] [employer]. CHEMISTRY BUN 14 7 - 22 04/[address] [facility] CHEMISTRY AGAP 10.5 10.0 - 04/[address] [facility] CHEMISTRY Total 5.3 6.4 - 8.4 04/[address] [facility] CHEMISTRY Albumin Lvl 2.6 3.5 - 5.0 04/[address] [facility] CHEMISTRY Calcium Lvl 7.6 8.5 - 10.5 04/[address] [facility] CHEMISTRY B/C Ratio 28 6 - 25 04/[address] [facility] CHEMISTRY AST 9 0 - 37 04/[address] [facility] CHEMISTRY eGFR 96 04/24 NA <sup>6</sup>R esult [facility] Comment: The eGFR is calculated using the CKD-EPI formula. In most young, healthy individuals the eGFR will be >90 mL/min/1.73m2 . The eGFR declines with age. An eGFR of 60-89 may be normal in some populations, particularly the elderly, for whom the CKD-EPI formula has not been extensively validated. Use of the eGFR is not recommended in the following populations:& lt;br/>
I ndividuals with unstable creatinine concentration s, including patients and those with serious co-morbid conditions.<b r/>
Patie nts with extremes in muscle mass or diet.

The data above are obtained from the National Kidney Disease Education Program (NKDEP) which additionally recommends that when the eGFR is used in patients with extremes of body mass index for purposes of drug dosing, the eGFR should be multiplied by the estimated BMI. HEMATOLOGY Monocytes # 0.4 0.0 - 0.8 04/[address] [facility] HEMATOLOGY Eosinophils 0.3 0.0 - 0.5 04/24 Normal MH # /2013 [facility] HEMATOLOGY Basophils # 0.0 0.0 - 0.2 04/[address] [facility] HEMATOLOGY Eosinophils 3.3 0.0 - 4.0 /12 Normal MH /2012 [facility] HEMATOLOGY Basophils 0.2 0.0 - 1.0 03/ Normal MH /2012 [facility] HEMATOLOGY Segs-Bands # 7.4 1.5 - 8.1 03/ Normal MH /2012 [facility] HEMATOLOGY Lymphocytes 0.9 1.0 - 5.5 03/ LOW MH # /2013 [facility] HEMATOLOGY Monocytes 4.7 2.0 - 12.0 03/ Normal MH /2012 [facility] HEMATOLOGY Lymphocytes 10.1 20.0 - 03/ LOW MH 40.0 /2012 [facility] HEMATOLOGY Segs 81.7 45.0 - 03/12 HI MH 75.0 /2012 [facility] HEMATOLOGY MPV 9.8 7.4 - 10.4 03/ Normal MH /2012 [facility] HEMATOLOGY MCHC 32.4 32.0 - 03/ Normal MH 36.0 /2012 [facility] HEMATOLOGY RDW 15.8 11.5 - 03/ HI MH 14.5 /2012 [facility] HEMATOLOGY Platelet 174 133 - 450 03/ Normal MH /2012 [facility] HEMATOLOGY Hct 29.1 36.0 - 03 LOW MH 48.0 /2012 [facility] HEMATOLOGY RBC 3.53 4.20 - 03/ LOW MH 5.40 /2012 [facility] HEMATOLOGY WBC 9.1 3.7 - 10.4 03/ Normal MH /2012 [facility] HEMATOLOGY Hgb 9.4 12.0 - 03/ LOW MH 16.0 /2012 [facility] HEMATOLOGY MCH 26.7 27.0 - 03/12 LOW MH 31.0 /2012 [facility] HEMATOLOGY MCV 82.4 81.0 - 03 Normal MH 99.0 /2012 [facility] CHEMISTRY Magnesium 2.0 1.8 - 2.4 / Normal MH Lvl /2012 [facility] CHEMISTRY A/G Ratio 1.0 0.7 - 1.6 03/11 Normal MH /2012 [facility] CHEMISTRY Globulin 2.8 2.0 - 4.0 03/ Normal MH /2012 [facility] CHEMISTRY B/C Ratio 26 6 - 25 03/ HI MH /2012 [facility] CHEMISTRY AGAP 13.8 10.0 - 03 Normal MH 20.0 /2012 [facility] CHEMISTRY ALT 16 0 - 65 03/ Normal MH /2012 [facility] CHEMISTRY Alk Phos 70 39 - 136 03/ Normal /2012 [facility] CHEMISTRY Total 5.5 6.4 - 8.4 03/ LOW MH Protein /2012 [facility] CHEMISTRY Albumin Lvl 2.7 3.5 - 5.0 03/[address] [facility] CHEMISTRY Bili Total 0.5 0.2 - 1.3 04/[address] [facility] CHEMISTRY AST 10 0 - 37 04/[address] [facility] CHEMISTRY eGFR 96 04/23 NA <sup>7</sup>R esult [facility] Comment: The eGFR is calculated using the CKD-EPI formula. In most young, healthy individuals the eGFR will be >90 mL/min/1.73m2 . The eGFR declines with age. An eGFR of 60-89 may be normal in some populations, particularly the elderly, for whom the CKD-EPI formula has not been extensively validated. Use of the eGFR is not recommended in the following populations:& lt;br/>
I ndividuals with unstable creatinine concentration s, including patients and those with serious co-morbid conditions.<b r/>
Patie nts with extremes in muscle mass or diet.

The data above are obtained from the National Kidney Disease Education Program (NKDEP) which additionally recommends that when the eGFR is used in patients with extremes of body mass index for purposes of drug dosing, the eGFR should be multiplied by the estimated BMI. CHEMISTRY BUN 13 7 - 22 04/[address] [facility] CHEMISTRY Creatinine 0.5 0.5 - 1.4 04/[address] [facility] CHEMISTRY Sodium Lvl 146 135 - 145 04/[address] [facility] CHEMISTRY Potassium 3.8 3.5 - 5.1 04/[address] [facility] CHEMISTRY Chloride Lvl 108 95 - [address] [facility] CHEMISTRY Glucose Lvl 114 70 - 99 04/23 HI <sup>10</sup> Interpretive [facility] Data: Adult reference range values reflect the clinical guidelines
of the [place] [employer]. CHEMISTRY Calcium Lvl 7.4 8.5 - 10.5 04/[address] [facility] CHEMISTRY CO2 28 24 - 32 04/[address] [facility] HEMATOLOGY MPV 9.9 7.4 - 10.4 04/[address] [facility] HEMATOLOGY Platelet 171 133 - 450 04/[address] [facility] HEMATOLOGY RDW 15.9 11.5 - 04/[address] [facility] HEMATOLOGY MCHC 32.4 32.0 - 04/23 Normal MH 36.0 /2013 [facility] HEMATOLOGY Hct 30.6 36.0 - 03/ LOW MH 48.0 /2012 [facility] HEMATOLOGY RBC 3.70 4.20 - 03/ LOW MH 5.40 /2012 [facility] HEMATOLOGY WBC 11.2 3.7 - 10.4 03/11 HI MH /2012 [facility] HEMATOLOGY Hgb 9.9 12.0 - 03/ LOW MH 16.0 /2012 [facility] HEMATOLOGY MCV 82.7 81.0 - 03/ Normal MH 99.0 /2012 [facility] HEMATOLOGY MCH 26.8 27.0 - 03/ LOW MH 31.0 /2012 [facility] HEMATOLOGY Eosinophils 2.0 0.0 - 4.0 03/ Normal MH /2012 [facility] HEMATOLOGY Monocytes 4.0 2.0 - 12.0 03/ Normal MH /2012 [facility] HEMATOLOGY Basophils 0.1 0.0 - 1.0 / Normal MH /2012 [facility] HEMATOLOGY Basophils # 0.0 0.0 - 0.2 / Normal MH /2012 [facility] HEMATOLOGY Eosinophils 0.2 0.0 - 0.5 / Normal MH # /2012 [facility] HEMATOLOGY Lymphocytes 1.4 1.0 - 5.5 / Normal MH # /2012 [facility] HEMATOLOGY Segs-Bands # 9.1 1.5 - 8.1 03/ HI MH /2012 [facility] HEMATOLOGY Monocytes # 0.5 0.0 - 0.8 / Normal MH /2012 [facility] HEMATOLOGY Segs 81.5 45.0 - 04/23 HI MH 75.0 /2012 [facility] HEMATOLOGY Lymphocytes 12.4 20.0 - 03 LOW MH 40.0 /2012 [facility] Microbiolo Culture: 04/23 gy /2012 [facility] CHEMISTRY Bili Total 0.4 0.2 - 1.3 /10 Normal /2012 [facility] CHEMISTRY ALT 18 0 - 65 03/ Normal MH /2012 [facility] CHEMISTRY Alk Phos 62 39 - 136 / Normal [facility] CHEMISTRY Total 6.1 6.4 - 8.4 04/22 LOW Protein /2012 [facility] CHEMISTRY AST 14 0 - 37 / Normal /2012 [facility] CHEMISTRY Albumin Lvl 2.7 3.5 - 5.0 / LOW MH /2012 [facility] CHEMISTRY A/G Ratio 0.8 0.7 - 1.6 / Normal /2012 [facility] CHEMISTRY Globulin 3.4 2.0 - 4.0 04/[address] [facility] CHEMISTRY B/C Ratio 14 6 - 25 04/[address] [facility] URINALYSIS UA Sq Epi Occasional /LPF Few 04/21 NA *NA* [facility] (04/21/2012 12:27:00) URINALYSIS UA Leuk Est Moderate Negative 04/21 ABN *ABN* (04/21/2012 12:27:00) URINALYSIS UA WBC 6 0 - 5 04/21 [facility] URINALYSIS UA RBC 34 0 - 2 04/21 [facility] URINALYSIS UA CaOx Mey Occasional /HPF None Seen 04/21 NA *NA* [facility] (04/21/2012 12:27:00) URINALYSIS UA Mucus Few /LPF None Seen 04/21 NA *NA* [facility] (04/21/2012 12:27:00) URINALYSIS UA Bacteria Occasional /HPF None Seen 04/21 NA *NA* [facility] (04/21/2012 12:27:00) URINALYSIS UA Bili Negative Negative 04/21 NA *NA* [facility] (04/21/2012 12:27:00) URINALYSIS UA Blood Moderate Negative 04/21 ABN *ABN* [facility] (04/21/2012 12:27:00) URINALYSIS UA Nitrite Negative Negative 04/21 Normal (04/21/2012 12:27:00) [facility] URINALYSIS UA Glucose Negative mg/dL Negative 04/21 NA *NA* [facility] (04/21/2012 12:27:00) URINALYSIS UA Ketones 20 mg/dL Negative 04/21 ABN *ABN* [facility] (04/21/2012 12:27:00) URINALYSIS UA 0.1 - 1.0 04/21 [facility] Urobilinogen /2012 URINALYSIS UA Color Ltyellow 04/21 NA [facility] URINALYSIS UA Protein Negative mg/dL Negative 04/21 Normal (04/21/2012 12:27:00) [facility] URINALYSIS UA Turbidity Clear Clear 04/21 Normal (04/21/2012 12:27:00) [facility] URINALYSIS UA pH 5.0 5.0 - 8.0 04/[address] [facility] URINALYSIS UA Spec Grav 1.011 <=1.030 04/[address] [facility] CHEMISTRY Phosphorus 2.8 2.5 - 4.5 04/[address] [facility] CHEMISTRY Magnesium 1.8 1.8 - 2.4 04/[address] [facility] CHEMISTRY Phosphorus 2.9 2.5 - 4.5 04/[address] [facility] HEMATOLOGY Plt Morph Normal 04/21 Normal (04/20/2012 18:11:00) [facility] HEMATOLOGY RBC Morph Normal 04/21 Normal [facility] (04/20/2012 18:11:00) [facility] BACTERIAL MRSA by PCR Negative 1 04/20 Normal <sup>1</sup>I M H - SEROLOGY (04/20/2012 16:00:00) nterpre tive [facility] Data: Interpretive Data: The [employer] LightCycler MRSA assay is a qualitative test for the direct detection of nasal colonization with methicillin-r esistant Staphylococcu s aureus (MRSA) to aid in the prevention and control of MRSA infections in healthcare settings. A positive result does not indicate an infection or require treatment. A negative result does not exclude colonization or infection.

The polymerase chain reaction (PCR) assay detects a proprietary sequence indicative of the integration of the SCCmec cassette into the Staphylococcu s aureus chromosome, indicating the presence of MRSA DNA. The assay utilizes FDA cleared IVD reagents. Performance characteristi cs have been verified by the [facility] within the [facility]. The [facility] is authorized under the Clinical Laboratory Improvement Amendment of 1988 (CLIA-88) to perform high complexity testing. CHEMISTRY LDL 136 0 - 129 / HI MH /2012 [facility] CHEMISTRY Chol 211 120 - 200 / HI MH [facility] CHEMISTRY Trig 193 0 - 200 04/[address] [facility] CHEMISTRY HDL 36 >=35 / Normal [facility] CHEMISTRY CHD Risk 5.86 3.90 - 03 HI 5.80 /2012 [facility] CHEMISTRY TSH 0.631 0.360 - 04/19 Normal MH 3.740 /2012 [facility] CHEMISTRY Phosphorus 3.2 2.5 - 4.5 04/[address] [facility] HEMATOLOGY PTT 35.0 22.9 - 04/19 Normal <sup>14</sup> MH 35.[address] [facility] Data: Heparin Therapeutic Range: 57 - 92 Seconds HEMATOLOGY PT 14.0 12.0 - 04/[address] [facility] HEMATOLOGY INR 1.06 0.85 - 04/19 Normal <sup>12</sup> 1. Interpretive [facility] Data: RECOMMENDED RANGES FOR PROTIME INR:
2.0-3.0 for most medical and surgical thromboemboli c states.
2.5-3.5 for artificial heart valves and recurrent embolism.<br/ >
INR SHOULD BE USED ONLY FOR PATIENTS ON STABLE ANTICOAGULANT THERAPY. CHEMISTRY BNP 86 <=100 04/19 Normal <sup>11</sup> Interpretive [facility] Data: Elevated results are in line with increasing severity of
congesti ve heart failure. Minor elevations between 100 and 300
may be seen with Myocardial Ischemia, Sodium retaining drugs,
and compensated/t reated heart failure. CHEMISTRY Total CK 130 12 - 191 04/[address] [facility] CHEMISTRY CK MB 0.9 0.5 - 3.6 04/[address] [facility] CHEMISTRY Troponin-I <0.02 0.00 - 04/[address] [facility] CHEMISTRY CK MB Index 0.7 0.0 - 2.5 04/[address] [facility] HEMATOLOGY INR 0.95 0.85 - 04/19 Normal <sup>13</sup> . Interpretive [facility] Data: RECOMMENDED RANGES FOR PROTIME INR:
2.0-3.0 for most medical and surgical thromboemboli c states.
2.5-3.5 for artificial heart valves and recurrent embolism.<br/ >
INR SHOULD BE USED ONLY FOR PATIENTS ON STABLE ANTICOAGULANT THERAPY. HEMATOLOGY PTT 34.0 22.9 - 04/19 Normal <sup>15</sup> 35.8 /[address] [facility] Data: Heparin Therapeutic Range: 57 - 92 Seconds HEMATOLOGY PT 12.9 12.0 - 04/[address] [facility] HEMATOLOGY RBC Morph Normal 04/19 Normal (04/18/2012 21:05:00) /2012 [facility] HEMATOLOGY Plt Morph Normal 04/19 Normal (04/18/2012 21:05:00) [facility] URINALYSIS UA Nitrite Negative Negative 04/19 Normal (04/18/2012 21:05:00) [facility] URINALYSIS UA Blood Negative Negative 04/19 Normal (04/18/2012 21:05:00) [facility] URINALYSIS UA Bili Negative Negative 04/19 [facility] *NA* [facility] (04/18/2012 21:05:00) URINALYSIS UA 0.1 - 1.0 04/19 [facility] Urobilinogen [facility] URINALYSIS UA Color Colorless 04/19 NA [facility] URINALYSIS UA WBC 3 0 - 5 04/19 Normal [facility] URINALYSIS UA Sq Epi Occasional /LPF Few 04/19 [facility] *NA* [facility] (04/18/2012 21:05:00) URINALYSIS UA Bacteria Occasional /HPF None Seen 04/19 [facility] *NA* [facility] (04/18/2012 21:05:00) URINALYSIS UA RBC <1 0 - 2 04/19 Normal URINALYSIS UA pH 8.0 5.0 - 8.0 04/19 Normal [facility] URINALYSIS UA Leuk Est Small Negative 04/19 ABN *ABN* [facility] (04/18/2012 21:05:00) URINALYSIS UA Ketones Negative mg/dL Negative 04/19 [facility] *NA* [facility] (04/18/2012 21:05:00) URINALYSIS UA Glucose Negative mg/dL Negative 04/19 [facility] *NA* [facility] (04/18/2012 21:05:00) URINALYSIS UA Protein Negative mg/dL Negative 04/19 Normal (04/18/2012 21:05:00) [facility] URINALYSIS UA Turbidity Clear Clear 04/19 Normal (04/18/2012 21:05:00) [facility] URINALYSIS UA Spec Grav 1.003 <=1.030 04/[address] [facility] Microbiolo Culture: 04/[address] [facility] Pathology Reports No Data Provided for This Section Diagnostic Reports Report Value Date Source Chest 2 views DX EXAM: Chest 2 views DX 05/26/2016 [facility] DATE: 05/26/2016 8:49 AM CDT INDICATION: Coughing COMPARISON: 03/04/2013. IMPRESSION: Stable moderatel y enlarged cardiac silhouette. Postoperative median sternotomy. Atherosclerotic thoracic aorta. No focal consolidation, significant pleural effusion or pneumothorax. Moderate thoracic spondylosis. SL: [id number] Consultation Notes No Data Provided for This Section Discharge Summaries No Data Provided for This Section History and Physicals No Data Provided for This Section Vital Signs Vital Sign Value Date Comments Source Heart Rate 78 06/14/2016 [facility] Respitory Rate 16 06/14/2016 [facility] Temperature Oral (F) 98.4 F 06/14/2016 [facility] Systolic (mm Hg) 144 06/14/2016 [facility] Diastolic (mm Hg) 84 06/14/[address] Systolic (mm Hg) 140 06/14/[place] [facility] Diastolic (mm Hg) 80 06/14/[address] Respitory Rate 16 06/14/2016 [facility] Heart Rate 78 06/14/2016 [facility] Temperature Oral (F) 98.8 F 06/14/2016 [facility] Systolic (mm Hg) 136 06/14/2016 [facility] Diastolic (mm Hg) 75 06/14/[address] Respitory Rate 16 06/14/2016 [facility] Heart Rate 78 06/14/2016 [facility] Temperature Oral (F) 98.2 F 06/14/2016 [facility] Height 152.4 cm 06/08/2016 [facility] Weight 66.818 06/08/2016 [facility] BMI Calculated 28.77 06/08/2016 [facility] Respitory Rate 15 06/03/2016 [facility] Systolic (mm Hg) 150 06/03/[place] [facility] Diastolic (mm Hg) 51 06/03/[address] Systolic (mm Hg) 163 06/03/2016 [facility] Diastolic (mm Hg) 54 06/03/[address] Systolic (mm Hg) 143 06/03/2016 [facility] Diastolic (mm Hg) 62 06/03/[address] Respitory Rate 14 06/03/2016 [facility] Respitory Rate 18 06/03/2016 [facility] Temperature Oral (F) 98.4 F 05/26/2016 [facility] Heart Rate 60 05/26/2016 [facility] Weight 68.636 05/26/2016 [facility] BMI Calculated 29.55 05/26/2016 [facility] Height 152.4 cm 05/26/2016 [facility] Systolic (mm Hg) 162 04/26/2012 [facility] Diastolic (mm Hg) 74 04/26/[address] Systolic (mm Hg) 183 04/26/[place] [facility] Diastolic (mm Hg) 72 04/26/[address] Temperature Oral (F) 97.1 F 04/26/2012 [facility] Diastolic (mm Hg) 78 04/26/[address] Systolic (mm Hg) 185 04/26/2012 [facility] Respitory Rate 18 04/26/2012 [facility] Heart Rate 72 04/26/2012 [facility] Respitory Rate 20 04/26/2012 [facility] Heart Rate 84 04/26/2012 [facility] Temperature Oral (F) 97.9 F 04/26/2012 [facility] Respitory Rate 16 04/26/2012 [facility] Heart Rate 59 04/26/2012 [facility] Temperature Oral (F) 98.3 F 04/26/2012 [facility] Weight 69.091 04/20/2012 [facility] Height 152.4 cm 04/19/2012 [facility] Weight 68.182 04/19/2012 [facility] Encounters Location Location Encounter Encounter Reason Attending ADM MD Stat Source Details Type Number For Provider Date Date Visit Outpatient [id number] 433.10, LUIS 04/18 Active [facility] CAROTID as ARTERY t ST[facility] Inpatient [id number] CAROTID KIP 04/19 04/26 [facility] [place] [facility] [place] A[place] [id number] 06/12 [facility] AUD[facility] [id number] 01/30 [facility] A[facility] [id number] 03/27 [facility] AUDIT [id number] 04/03 Physicia ns [facility] Day Surgery [id number] Luis 06/03 06/03 [facility] /2016 [facility] Inpatient [id number] Luis 06/08 06/14 [facility] Preadmit [id number] 433.10/3 LUIS Active [place] [id number] [facility] s t Procedures Procedure Code Date Perfomer Comments Source Bypass [id number] [facility] Bypass<sup>1</sup> [id number] 2004 [facility]ast Carotid [id number] [facility] endarterectomy CEA - Carotid [id number] [facility] t endarterectomy Placement of stent [id number] [facility] in cardiac conduit Stent placement [id number] [facility] Assessment and Plan Assessment and Plan Date Source Extracted from:Title: Hem/Onc* 06/14/2016 [facility] Author: Gaby Novoa MD Date: 06/14/16 Impression and Plan Ms. Haskins is a very pleasant 75-year-old female with multiple medical problems including extensive peripheral vascular disease leading to left foot ischemia and gangrene subsequently underwent left popl iteal artery to medial plantar arterial bypass by vascular surgery. She has significant drop in hemoglobin from 12 range to 7. I had a lengthy discussion with the bossman ent and her daughter about her current disease status and importance of monitoring and treatment. Apparently, patient is generalized weakness, still declining an y PRBC transfusion. I have recommended to proceed forward with iron infusion. If needed, will use growth factor support. I have also recommended to use pediatric tube for the blood draws and many mites for any punctures. A/P: 1. Anemia secondary to blood loss. S/p Intravenous IV iron infusion with improved counts. Expected to improve in next few days. 2. Severe peripheral vascular disease. S/p left popliteal artery to medial plantar arterial bypass by vascular surgery. 3. Diabetes mellitus. 4. Pentecostalism.Use pediatric [facility] If goes home will followup as an outpati ent.I will continue to be available. Please call with questions. Extracted from:Title: Critical Care Author: Juan Antonio Hansen DO Date: 06/08/16 CC: s/p popliteal-plantar bypass HPI: 75 y.o. female with a h/o HTN, DM, PVD, and CVA presents to the ICU s/p L popliteal-plantar bypass. She has a h/o PVD with previous stenting. She was found to have peripheral occlusive disease duri ng workup of gangrene of the left foot r ecently. She has been extubated. EBL is 250cc. Slightly hypertensive at this time. PMHx: HTN, DM, CVA, PVD PSHx: CABG, CEA, stents in b/l lower extremities FHx: mother with heart disease Sochx: no tobacoo, etoh, or drugs Meds/Allergies: all reviewed and documented in the EMR ROS: all systems reviwed and negative be sides those pertinent positive stated in the HPI Physical Exam Vitals Tmp(F) Pulse BP RR SpO2 FIO2 06/08 13:52 ---- 69 169/49 16 100 --- 06/08 13:00 97.7 --- ----- -- --- --- 06/08 12:45 ---- 52 97/40 14 95 --- 06/08 12:30 ---- 54 108/38 15 100 8.0L/m 06/08 12:15 97 59 127/36 18 100 8.0L/m 24 Hr Tmax: 99.1F (37.28c) at 06/08 09:1 7 Vital Signs are the last 5 in the past 48 hours. Gen: NAD HEENT: protecting airway Neuro: moves all, alert and oriented Cardio: [id number] Pulm: LCTAB Abd: S/NT/ND Ext: dopplered pulses b/l 24hr Labs 06/08 0931 Glucose POC 140 H 06/08 0738 ABO/Rh O POS Antibody Scrn Negative Glucose Lvl 208 H BUN 17 Creatinine Lvl 0.79 Sodium Lvl 138 Potassium Lvl 3.4 L Chloride Lvl 99 CO2 30 AGAP 12.4 Calcium Lvl 9.2 eGFR 72 WBC 10.0 RBC 4.76 Hgb 12.3 Hct 36.7 MCV 77.1 L MCH 25.8 L MCHC 33.4 RDW 16.4 H Platelet 181 MPV 9.7 Segs 74.3 Monocytes 6.1 Lymphocytes 17.5 L Eosinophils 1.6 Basophils 0.5 Segs-Bands # 7.5 Lymphocytes # 1.8 Monocytes # 0.6 Eosinophils # 0.2 Microcyte 1+ PT 13.8 INR 1.04 PTT 30.6 Impression 1. peripheral arterial occlusive disease s/p L popliteal-brian ntar bypass 2. HTN 3. DM 4. HLD Plan - ICU montoring - neurovasc checks b/l lower extremites - pain management - IV antihypertensives - prophylactic measures CCM time exclusive of procedures is 37 min Plan of Care No Data Provided for This Section Social History Social History Date Source Social History TypeResponse 06/08/2016 [facility] Substance Abuse Use: None. Alcohol Never Smoking Status Never smoker; Exposure to Tobacco Smoke None; Cigarette Smoking Last 365 Days No; Reg Smoking Cessation Counseling No Never A Smoker (Active) 04/03/2013 [facility] Never Drank Alcohol (Active) Family History Value Date Source Fraternal history of Diabetes 04/03/2013 [facility] Mellitus (V18.0); (Active) Sororal history of Stroke Syndrome (V17.1); (Active) Fraternal history of Diabetes 03/27/2013 [facility] Mellitus (V18.0); (Active) Sororal history of Stroke Syndrome (V17.1); (Active) Fraternal history of Diabetes 01/30/2013 [facility] (V18.0); (Active) Sororal history of Stroke Syndrome (V17.1); (Active) Fraternal history of Diabetes 06/12/2012 [facility] Mell[facility] (V18.0); (Active) Sororal history of Stroke Syndrome (V17.1); (Active) Advance Directives Order Name Results Value Date Source Advance Directives Advance Directives No Advance 04/03/2013 [facility] Directives available. Advance Directives Advance Directives No Advance 03/27/2013 [facility] Direct[facility] available. Advance Directives Advance Directives No Advance 01/30/2013 [facility] Direct[facility] available. Advance Directives Advance Directives No Advance 06/12/2012 [facility] Direct[facility] available. Functional Status No Data Provided for This Section
--- OUTSIDE RECORDS SUMMARY | 2020-03-16 16:40 | XMS REPORT | Continuity of Care Document ---
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 2-16 [facility] disease disease 00:00: st involving involving 00 [place] coronary coronary artery artery Depression Depression Disease Active [place] 2-16 [facility] 00:00: st 00 UNK Diagnosis Active 2016-06-20 Mem oria 06-06 21:57:00 l UNK 00:00: [place] 00 Active 06/06/2016 [place] 433.10/353 Diagnosis Active 2012-05-17 Memoria 01 05-02 14:33:00 l 00:00: Christopher 433.10/353 00 01 Active [facility] [place] 433.10, Diagnosis Active 2012-04-18 Me moria CAROTID 04-18 16:00:00 l ARTERY 433.10, 00:00: Christopher STENOSIS CAROTID 00 ARTERY STENOSIS Active 04/18/2012 [place] CAROTID Diagnosis Active 2012-05-10 Me moria STENOSIS 3-06 21:43:00 l CAROTID 00:00: Christopher STENOSIS 00 Active 04/18/2012 [facility] OTHER Diagnosis Active 2012-2012-04-19 Mem oria 3-06 00:54:00 l OTHER 00:00: [place] 00 Active 04/18/2012 [facility] DM - Problem Resolve 2012-04-28 Wilfrid mendy Diabetes d 08:59:09 l mellitus DM - Christopher Diabetes mellitus Resolved Problem 04/28/2012 [facility] Hypertensi Problem Resolve 2012-04-28 Memoria on d 08:59:09 l Christopher Hypertensi on Resolved Problem 04/28/2012 [facility] Hypertensi Problem Resolve 2016-06-17 Memoria ve d 01:28:39 l disorder, Christopher systemic Hypertensi arterial ve (disorder) disorder, systemic arterial (disorder) Resolved Problem 06/17/2016 [facility] Limb Pain Problem Active 2013-04-03 Me moria 13:30:33 l Limb [place] Pain Active [facility] Carotid Problem Active 2013-04-03 Wilfrid mendy Artery 13:30:33 l Stenosis Carotid Jackelyn nn Artery Stenosis Active [facility] Diabetes Problem Active 2013-04-03 Mem oria Mellitus 13:30:33 l Diabetes Mckinley n Mellitus Active [facility] Hyperchole Problem Active 2013-04-03 M emoria sterolemia 13:30:33 l Christopher Hyperchole sterolemia Active 04/03/2013 [facility] Atheroscle Problem Active 2013-04-03 M emoria rosis Of 13:30:33 l The [place] 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 With on Intermitte nt Claudicati on Active 04/03/2013 [facility] 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 Active [facility] Gastroesop Problem Active 2016-06-17 M emoria hageal 01:28:39 l reflux Christopher disease Gastroesop (disorder) hageal reflux disease (disorder) Active Problem 06/17/2016 [facility] Limping Problem Active 2016-06-17 Wilfrid mendy (finding) 01:28:39 l Limping Christopher (finding) Active Problem 06/17/2016 [facility] Cough Problem Active 2016-06-17 Memor ia (finding) 01:28:39 l Cough Christopher (finding) Active Problem 06/17/2016 [facility] Diabetes Problem Active 2016-06-17 Mem oria mellitus 01:28:39 l (disorder) Diabetes He rmann mellitus (disorder) Active Problem 06/17/2016 [facility] Myocardial Problem Active 2016-06-17 M emoria infarction 01:28:39 l (disorder) Mckinley n Myocardial infarction (disorder) Active Problem 06/17/20162004 [facility] Pure Problem Active 2016-06-17 Memor ia hyperchole 01:28:39 l sterolemia Pure Mkcinley n (disorder) hyperchole sterolemia (disorder) Active Problem 06/17/2016 [facility] Essential Problem Active 2016-06-17 Me moria hypertensi 01:28:39 l on [place] (disorder) Essential hypertensi on (disorder) Active Problem 06/17/2016 [facility] CAROTID Diagnosis Active 2012-05-10 Me moria SINUS 21:43:00 l SYNDROME CAROTID Jackelyn nn SINUS SYNDROME Active [facility] EMBOLISM Diagnosis Active 2016-06-20 M emoria AND 21:57:00 l THROMBOSIS EMBOLISM He rmann OF AND ARTERIES THROMBOSIS OF T OF ARTERIES OF T Active [facility] ATHSCL Diagnosis Active 2016-06-20 Mem oria [place] 21:57:00 l ARTERIES ATHSCL Mckinley n OF EXTRM W [place] INTRMT ARTERIES OF EXTRM W INTRMT Active [facility] History of Past Illness Condition Condition Condition Status Onset Resolution Last Treating Co mments Source Name Details Category Date Date Treatment Clinician Date Transient Problem Resolve 2010-2016-06-17 2016-06-17 Memoria ischemic d 1- 01:28:39 01:28:39 l attack 00:00: Christopher (disorder) Transient 00 ischemic attack (disorder) Resolved 02/13/2010 Problem 06/17/2016 [facility] Allergies, Adverse Reactions, Alerts Allergy Allergy Status Severity Reaction(s) Onset Inactive Treating Comm ents Source Name Type Date Date Clinician Amoxicil Propensi Active Other (See Chest [place] spike-Pot ty to Comments) 2-17 pain Method i Clavulan adverse 00:00: st ate reaction 00 s to drug Iodine Propensi Active Fernando ty to 2-16 [facility] adverse 00:00: st reaction 00 s to drug Levoflox Propensi Active [place] acin ty to 2-16 [facility] adverse 00:00: st reaction 00 s to drug Metformi Adverse Active Info Not [facility] HCl Reaction Available [facility] Levaquin Adverse Active Info Not [facility] Reaction Available [facility] No Known No Known Active Memori a Drug Drug l Allergie Allergie Mckinley n s s iodine iodine Active Memoria l Christopher Bactrim Bactrim Active Memoria l Christopher Family History Family Member Diagnosis Comments Start Date Stop Date Source Unknown Family Family History 2012-06-12 2012-06-12 Memori al Christopher Member 16:18:59 16:18:59 Social History Social Habit Start Date Stop Date Quantity Comments Source Sex Assigned At [facility] ethodist Tobacco use and 2017-04-04 2017-04-04 Never used [facility] ethodist exposure 00:00:00 00:00:00 Social History 2013-04-03 2013-04-03 [facility] 13:30:33 13:30:33 Smoking Status Start Date Stop Date Source Never smoker [facility] Medications Ordered Filled Start Stop Current Ordering Indication Dosage Frequency Signature Comments Components Source Medication Medication Date Date Medication? Clinician (SIG) Name Name Losartan Losartan Yes Na Tripp 1 tablet [facility] Potassium Potassium 6-22 [facility] 00:[facility]: Memoria 00 [facility] Flonase Flonase Yes Na Tripp 1 spray in [facility] St 8-29 each [facility] - 00:00: nostril Memoria 00 [facility] aspirin Yes 81mg QD Take 81 mg [place] (ECOTRIN) 2-20 by mouth Method i 81 MG 11:42: daily. st enteric 42 coated tablet citalopram Yes 10mg QD Take 10 mg [place] (CeleXA) 10 2-20 by mouth Meth alberto MG tablet 11:42: daily. st 42 losartan-hy Yes 2{tbl} QD Take 2 [place] drochloroth 2-20 tablets by Fl thalberto iazide 11:42: mouth st (HYZAAR) 42 daily. 50-12.5 mg per tablet potassium Yes 10meq Q.5D Take 10 [place] chloride 2-20 mEq by Methodi (K-DUR,KLOR 11:42: mouth 2 st -CON) 10 42 (two) MEQ CR times a tablet day. atorvastati 2018-0 Yes 10mg QD Take 10 mg King n (LIPITOR) 2-20 by mouth Meth alberto 10 MG 11:42: nightly. st tablet 42 metoprolol 2018-0 Yes 50mg Q.5D Take 50 mg [place] tartrate 2-20 by mouth 2 Metho di (LOPRESSOR) 11:42: (two) st 50 mg 42 times a tablet day. clopidogrel 2018-0 Yes 75mg QD Take 75 mg King (PLAVIX) 75 2-20 by mouth Meth alberto mg tablet 11:42: daily. st 42 pentoxifyll 2018-0 Yes 400mg Q.[id number] Take 400 King ine 2-20 [id number] mg by Methodi (TRENTal) 11:42: 3D mouth 3 st 400 mg CR 42 (three) tablet times a day with meals. cetirizine 2018-0 Yes 10mg QD Take 10 mg [place] (ZyrTEC) 10 2-20 by mouth Meth alberto MG tablet 11:42: daily. st 42 brimonidine 2018-0 Yes 1[drp] Q.5D Administer Fernando (ALPHAGAN) 2-20 1 drop to Meth alberto 0.2 % 11:42: both eyes st ophthalmic 42 2 (two) solution times a day. timolol 2018-0 Yes 1[drp] Q.5D Administer Saurav talamantes (TIMOPTIC) 2-20 1 drop to Meth alberto 0.5 % 11:42: both eyes st ophthalmic 42 2 (two) solution times a day. latanoprost 2018-0 Yes 1[drp] QD Administer Fernando (XALATAN) 2-20 1 drop to Metho di 0.005 % 11:42: both eyes st ophthalmic 42 nightly. solution glipiZIDE 2018-0 Yes 10mg QD Take 10 mg Saurav talamantes (GLUCOTROL) 2-20 by mouth Meth alberto 10 MG 11:42: daily. st tablet 42 benzonatate 2018-0 Yes 100mg Q.[id number] Take 1 King (TESSALON) 2-20 [id number] capsule Methodi 100 MG 00:00: 3D ([address] capsule 00 total) by mouth 3 (three) times a day as needed for cough for up to 60 doses. Ferrlecit No Notes: Memori a 5- (sodium l 13:55: ferric Christopher 00 gluconate complex (elemental iron) 62.5 mg/5 ml INJ) "Limited stability. Use immediatel y after admixture" (Same as: Ferrlecit) MEDICATION WASTE Product Size: 62.5 mg Product Wasted: ___ mg Timolol 5 No Notes: Memori a MG/ML 4-30 (Same As: l Ophthalmic 22:00: Timoptic, [facility] Solution 00 Betimol) Brimonidine No Notes: Wilfrid mendy tartrate 4-30 Non-formul l 1.5 MG/ML 14:00: nito. (Same [facility] Ophthalmic 00 as: Solution Alphagan-P ) Atropine No 0.5 mg, 5 Wilfrid mendy 4-30 mL, Route: l 03:37: IVP, Drug form: INJ, PRN, Dosing Weight 66.818, kg, PRN Bradycardi a, Start date: 06/11/16 22:37:00 CDT, Duration: 30 day, Stop date: 07/11/16 22:36:00 CDT Nitroglycer No Notes: Wilfrid mendy in 0.4 MG 4-30 (Same l Sublingual 03:37: as:Nitroqu H ermann Tablet 00 ick, Nitrostat) "Do Not Crush" Sublingual tablet latanoprost No Notes: Wilfrid mendy 0.05 MG/ML -30 Keep l Ophthalmic 02:00: refrigerat H ermann Solution 00 ed. (Same as:Xalatan ) Opened bottle may be stored at room temperatur e for 6 weeks Ferrlecit No Notes: Memori a - (sodium l 18:45: ferric Christopher 00 gluconate complex (elemental iron) 62.5 mg/5 ml INJ) "Limited stability. Use immediatel y after admixture" (Same as: Ferrlecit) MEDICATION WASTE Product Size: 62.5 mg Product Wasted: ___ mg Plavix No Notes: Memoria 4-29 (Same As: l 14:00: Plavix) Hydrochloro No 1 tab, Wilfrid mendy thiazide 25 - Route: PO, l MG / 14:00: Drug Form: [place] Losartan TAB, Potassium Dosing 100 MG Oral Weight Tablet 66.818, kg, Daily, Start date: 06/10/16 9:00:00 CDT, Duration: 30 day, Stop date: 07/09/16 9:00:00 CDT Lasix No Notes: Memoria 4-28 (Same as: l 14:00: Lasix) Citalopram No 10 mg, 1 Mem oria 4- tab, l 14:00: Route: PO, Drug form: TAB, Daily, Dosing Weight 66.818, kg, Start date: 06/10/16 9:00:00 CDT, Duration: 30 day, Stop date: 07/09/16 9:00:00 CDT hydrochloro No Notes: Wilfrid mendy thiazide 25 - (Same as: l mg oral 14:00: Hydrodiuri Herm shannan tablet 00 l) With food. Cozaar No Notes: Memoria 4-28 (Same as: l 14:00: Cozaar) sodium No 250 mL, Memoria chloride 06-10 Rate: On l 0.9% INJ 11:30: call for Jackelyn nn 250 mL 00 use with blood product administra tion, Dosing Weight 66.818, kg, Route: IV, Total Volume: 250, Start Date: 06/10/16 6:30:00 CDT, Duration: 1 day, Stop date: 06/11/16 6:29:00 CDT, Replace Every: 24 hr Alprazolam No Notes: Memor ia 0.5 MG Oral -28 With food l Tablet 04:18: or milk [place] [Xanax] 00 (Same as: Xanax) Symbicort No Notes: Memori a 160/4.5 4-28 (Same as: l inhalation 02:00: Symbicort) H ermann aerosol 00 WASTE: with Aerosol - adapter Return to Pharmacy atorvastati No Notes: Wilfrid mendy n -28 (Same As: l 02:00: Lipitor) insulin, No Notes: Memoria isophane 06-10 Roll in l 02:00: palms of [place] 00 hands gently; Do not shake vigorously . (Same as: NovoLIN N, Humulin N) Do not hold insulin without contacting prescriber "single patient use only" WASTE: F/P - Black; E - Municipal Trash Bin Stable for 14 days at room temperatur e Expires in days from ____Date Dextrose No 25 mL, Memoria 50% Syringe 06-09 Route: l 14:55: IVP, Dosing Weight 66.818, kg, PRN, PRN Blood Glucose Results, Start date: 06/09/16 9:55:00 CDT, Duration: 30 day, Stop date: 07/09/16 9:54:00 CDT Glucagon No 1 mg, Memoria 06-09 Route: IM, l 14:55: PRN, Dosing Weight 66.818, kg, PRN Blood Glucose Results, Start date: 06/09/16 9:55:00 CDT, Duration: 30 day, Stop date: 07/09/16 9:54:00 CDT metoprolol No Notes: Memor ia tartrate 06-09 (Same as: l 14:00: Lopressor) Streptococc No Notes: Wilfrid mendy us 06-09 Lightly l pneumoniae 14:00: roll vial He rmann serotype 1 00 (DO NOT capsular SHAKE) antigen before diphtheria administra [id number] tion. protein (Same as: conjugate Prevnar vaccine / 13) Streptococc us pneumoniae serotype 14 capsular antigen diphtheria [id number] protein conjugate vaccine / Streptococc us pneumoniae serotype 18C capsular antigen d Lovenox No Notes: Memoria 06-09 (Same as: l 11:00: Lovenox) Insulin, No Notes: Memoria Aspart, 06-09 Roll in l Human 02:44: palms of [place] 00 hands gently; Do not shake vigorously . (Same as: NovoLOG) "single patient use only" WASTE: F/P - Black; E - Municipal Trash Bin Stable for 28 days at room temperatur e. Expires in days from ____Date Dextrose 2016- No 25 gm, 50 Wilfrid mendy 50% Syringe 4-27 mL, Route: l 02:44: IVP, Drug Form: INJ, Dosing Weight 66.818, kg, PRN, PRN Blood Glucose Results, Start date: 06/08/16 21:44:00 CDT, Duration: 30 day, Stop date: 07/08/16 21:43:00 CDT Glucagon No 1 mg, Memoria 4-27 Route: IM, l 02:44: Drug form: PDR/INJ, PRN, Dosing Weight 66.818, kg, PRN Blood Glucose Results, Start date: 06/08/16 21:44:00 CDT, Duration: 30 day, Stop date: 07/08/16 21:43:00 CDT Labetalol No Notes: Memori a 4-26 (Same as: l 19:46: Normodyne, Trandate) Push over 2 minutes Give bolus over 2-3 minutes. Hydralazine No Notes: Wilfrid mendy 4-26 (Same as: l 19:45: Apresoline ) Push over 5 minutes Hydralazine No Notes: Wilfrid mendy 4-26 (Same as: l 18:51: Apresoline ) Push over 5 minutes glycopyrrol No Route: IV, Memoria ate (ANES) 06-08 Drug form: l 16:45: INJ, ONCE, Stop date: 06/08/16 11:45:00 CDT neostigmine No Route: IV, Memoria (ANES) 4- Drug form: l 16:45: INJ, ONCE, Stop date: 06/08/16 11:45:00 CDT ondansetron No Route: IV, Memoria (ANES) 06-08 Drug form: l 16:44: INJ, ONCE, Stop date: 06/08/16 11:44:00 CDT sodium No 1,000 mL, Memori a chloride 4-26 Rate: 100 l 0.9% 1000 16:33: ml/hr, Mckinley n ml INJ 00 Infuse 1,000 mL over: 10 hr, Route: IV, Dosing Weight 66.818 kg, Total Volume: 1,000, Start date: 06/08/16 11:33:00 CDT, Duration: 30 day, Stop date: 07/08/16 11:32:00 CDT Morphine No Notes: Memoria 06-08 (Same l 16:33: as:MORPhin e Sulfate) acetaminoph No Notes: Do M emoria en-codeine 06-08 not exceed l #3 16:33: 4gm/day of acetaminop hen. (Same as: Tylenol with Codeine # 3) protamine No Route: IV, Me moria (ANES) 06-08 Drug form: l (ANES) 16:14: INJ, Start Jackelyn nn date: 06/08/16 11:14:00 CDT, Stop date: 06/08/16 12:14:00 CDT norepinephr No Route: IV, Memoria ine (ANES) 06-08 Drug form: l 16:04: INJ, ONCE, Stop date: 06/08/16 11:04:00 CDT lidocaine No Route: IV, Me moria (ANES) 06-08 Drug form: l 15:55: INJ, ONCE, Stop date: 06/08/16 10:55:00 CDT rocuronium No Route: IV, M emoria (ANES) 06-08 Drug form: l 15:55: INJ, ONCE, Stop date: 06/08/16 10:55:00 CDT propofol No Route: IV, Mem oria (ANES) 06-08 Drug form: l 15:55: INJ, ONCE, Stop date: 06/08/16 10:55:00 CDT heparin No Route: IV, Wilfrid mendy (ANES) 06-08 Drug form: l 15:55: INJ, ONCE, Stop date: 06/08/16 10:55:00 CDT fentaNYL No Route: IV, Mem oria (ANES) 06-08 Drug form: l 15:54: INJ, ONCE, [place] Stop date: 06/08/16 10:54:00 CDT acetaminoph No Route: IV, Memoria en (ANES) 06-08 Drug form: l (ANES) 15:45: INJ, Start Jackelyn date: 06/08/16 10:45:00 CDT, Stop date: 06/08/16 11:45:00 CDT famotidine No Route: IV, M emoria (ANES) 06-08 Drug form: l 15:39: INJ, ONCE, Christopher 00 Stop date: 06/08/16 10:39:00 CDT methylPREDN No Route: IV, Memoria ISolone 06-08 Drug form: l (ANES) 15:39: INJ, ONCE, Jackelyn Stop date: 06/08/16 10:39:00 CDT diphenhydrA No Route: IV, Memoria MINE (ANES) 06-08 Drug form: l 15:39: INJ, ONCE, [place] 00 Stop date: 06/08/16 10:39:00 CDT norepinephr No Route: IV, Memoria ine (ANES) 06-08 Drug form: l (ANES) 15:25: INJ, Start Jackelyn date: 06/08/16 10:25:00 CDT, Stop date: 06/08/16 11:25:00 CDT vancomycin No Route: IV, M emoria (ANES) 06-08 Drug form: l (ANES) 15:01: INJ, Start Jackelyn date: 06/08/16 10:01:00 CDT, Stop date: 06/08/16 11:01:00 CDT sodium No Route: IV, Memor ia chloride 06-08 Total l 0.9% 1000 14:57: Volume: Jackelyn nn ml INJ 00 1,000, (ANES) Start date: 06/08/16 9:57:00 CDT, Stop date: 06/08/16 10:57:00 CDT ceFAZolin No Route: IV, Me moria (ANES) 06-08 Drug form: l (ANES) 14:51: INJ, Start Jackelyn nn 00 date: 06/08/16 9:51:00 CDT, Stop date: 06/08/16 10:51:00 CDT LR 1000 mL No Route: IV, M emoria INJ (ANES) 06-08 Total l 14:30: Volume: Christopher 00 1,000, Start date: 06/08/16 9:30:00 CDT, Stop date: 06/08/16 10:30:00 CDT Insulin No 6 unit, Memoria regular 06-08 Route: IV, l 14:10: ONCE, Dosing Weight 66.818, kg, Start date: 06/08/16 9:10:00 CDT, Stop date: 06/08/16 9:10:00 CDT Albuterol No Notes: Memori a 0.833 MG/ML 06-08 (Same as: l / 14:07: Duoneb) Ipratropium 00 [place] 0.167 MG/ML Inhalant Solution Calcium No 1,000 mL, Memor ia Chloride 06-08 Rate: 25 l 0.0014 14:07: ml/hr, MEQ/ML / Infuse Potassium over: 40 Chloride hr, Route: 0.004 IV, Dosing MEQ/ML / Weight Sodium 66.818 kg, Chloride Total 0.103 Volume: MEQ/ML / 1,000, Sodium Start Lactate date: 0.028 06/08/16 MEQ/ML 9:07:00 Injectable CDT, Solution Duration: 1 day, Stop date: 06/09/16 9:06:00 CDT Vancomycin No 2000 mg: Me moria -26 infuse l 12:00: over 2.5 hours MEDICATION WASTE Product Size: 1000 mg Product Wasted: ___ mg Ancef No Notes: Memoria 06-08 Same as: l 12:00: Ancef Morphine No 2 mg, Memoria 06-03 Route: l 17:29: IVP, Q3H, Dosing Weight 68.636, kg, PRN Pain Score 1-3, Start date: 06/03/16 12:29:00 CDT, Duration: 30 day, Stop date: 07/03/16 12:28:00 CDT acetaminoph No 2 tab, Wilfrid mendy en-codeine 06-03 Route: PO, l #3 17:29: Drug Form: Christopher 00 TAB, Dosing Weight 68.636, kg, Q4H, PRN Pain Score 4-6, Start date: 06/03/16 12:29:00 CDT, Duration: 30 day, Stop date: 07/03/16 12:28:00 CDT diphenhydrA No Route: IV, Memoria MINE (ANES) 06-03 Drug form: l 17:24: INJ, ONCE, Christopher 00 Stop date: 06/03/16 12:24:00 CDT methylPREDN No Route: IV, Memoria ISolone 06-03 Drug form: l (ANES) 17:24: INJ, ONCE, Jackelyn Stop date: 06/03/16 12:24:00 CDT ondansetron No Route: IV, Memoria (ANES) 06-03 Drug form: l 17:24: INJ, ONCE, Christopher 00 Stop date: 06/03/16 12:24:00 CDT fentaNYL No Route: IV, Mem oria (ANES) 06-03 Drug form: l 17:24: INJ, ONCE, Perryman 00 Stop date: 06/03/16 12:24:00 CDT midazolam No Route: IV, Me moria (ANES) 06-03 Drug form: l 17:24: SOLN, Perryman 00 ONCE, Stop date: 06/03/16 12:24:00 CDT famotidine No Route: IV, M emoria (ANES) 06-03 Drug form: l 17:24: INJ, ONCE, Christopher Stop date: 06/03/16 12:24:00 CDT vancomycin No Route: IV, M emoria (ANES) 4- Drug form: l (ANES) 17:00: INJ, Start Jackelyn date: 06/03/16 12:00:00 CDT, Stop date: 06/03/16 13:00:00 CDT ceFAZolin No Route: IV, Me moria (ANES) 06-03 Drug form: l (ANES) 16:47: INJ, Start Jackelyn date: 06/03/16 11:47:00 CDT, Stop date: 06/03/16 12:47:00 CDT LR 1000 mL No Route: IV, M emoria INJ (ANES) 06-03 Total l 16:35: Volume: Christopher 00 1,000, Start date: 06/03/16 11:35:00 CDT, Stop date: 06/03/16 12:35:00 CDT Insulin 2016- No 2 unit, Memoria regular 06-03 Route: IV, l 16:03: ONCE, Dosing Weight 68.636, kg, Start date: 06/03/16 11:03:00 CDT, Stop date: 06/03/16 11:03:00 CDT Insulin 2016-0 No 6 unit, Memoria regular 06-03 Route: IV, l 15:44: ONCE, Dosing Weight 68.636, kg, Start date: 06/03/16 10:44:00 CDT, Stop date: 06/03/16 10:44:00 CDT Insulin 2016-0 No 6 unit, Memoria regular 06-03 Route: IV, l 15:42: ONCE, Dosing Weight 68.636, kg, Start date: 06/03/16 10:42:00 CDT, Stop date: 06/03/16 10:42:00 CDT Lactated 2016- No 1,000 mL, Wilfrid mendy Ringers 06-03 Rate: 40 l 1,000 mL 15:41: ml/hr, Infuse over: 25 hr, Route: IV, Dosing Weight 68.636 kg, Total Volume: 1,000, Start date: 06/03/16 10:41:00 CDT, Duration: 30 day, Stop date: 07/03/16 10:40:00 CDT Vancomycin No 2000 mg: moria 4-13 infuse l 14:00: over 2.5 Perryman 00 hours MEDICATION WASTE Product Size: 1000 mg Product Wasted: ___ mg Ancef No Notes: Memoria 4-13 Same as: l 14:00: Ancef Christopher 00 Alendronic Yes 70 mg = 1 Me moria acid 70 MG 4-13 tab, PO, 0 l Oral Tablet 13:59: Refill(s) H erm 00 Vitamin B12 Yes 1,000 Memor ia 1000 mcg 4-13 microgram l oral tablet 13:58: = 1 tab, He rmann 00 PO, Daily, 0 Refill(s) citalopram Yes 10 mg = 1 Me moria 10 mg oral 4-13 tab, PO, l tablet 13:58: Daily, 0 Perryman 00 Refill(s) GlipiZIDE Yes 10 mg = 1 Mem oria XL 10 mg 4-13 tab, PO, l oral 13:58: Daily, 0 Perryman tablet, 00 Refill(s) extended release Potassium Yes 10 mEq = 1 Me moria Chloride 10 4-13 tab, PO, l MEQ 13:57: BID, 0 Perryman Extended 00 Refill(s) Release Tablet [Klor-Con] pentoxifyll Yes 400 mg = 1 Memoria ine 400 mg 4-13 tab, PO, l oral 13:57: TID, 0 Perryman tablet, 00 Refill(s) extended release Losartan Yes (Active) Wilfrid mendy Potassium 2-19 l TABS 13:30: 33 Clopidogrel Yes (Active) M emoria Bisulfate 2-19 l 75 MG Oral 13:30: Perryman Tablet 33 Aspirin Yes (Active) Memor ia TABS 2-19 l 13:30: Christopher 33 Metoprolol Yes (Active) Me moria Tartrate 2-19 l TABS 13:30: Christopher 33 Baclofen Yes (Active) Wilfrid mendy TABS 2-19 l 13:30: 33 GlyBURIDE-M Yes (Active) M emoria etFORMIN 2-19 l TABS 13:30: 33 Brimonidine Yes (Active) M emoria Tartrate 2-19 l SOLN 13:30: 33 Atorvastati Yes (Active) M emoria n Calcium 2-19 l TABS 13:30: Christopher 33 Timolol Yes (Active) Memor ia Maleate 0.5 2-19 l % 13:30: [place]man Ophthalmic 33 Gel Forming Solution Xalatan Yes (Active) Memor ia SOLN 2-19 l 13:30: Perryman 33 Citalopram Yes (Active) Me moria Hydrobromid 2-19 l e TABS 13:30: Perryman 33 HydrALAZINE Yes (Active) M emoria HCl TABS 2-19 l 13:30: Christopher 33 isosorbide No Carol 20 mg, 1 M emoria dinitrate 3-14 [place] tab, l 18:00: s Alphonso Route: PO, Her nagel 00 Drug form: TAB, TID, Dosing Weight 69.091, kg, Start date: 04/26/12 13:00:00, Duration: 30 day, Stop date: 05/26/12 9:00:00 losartan 50 2012-0 Yes Taso 100 mg, 2 M emoria mg oral 3-14 Mougouris tab, PO, l tablet 16:05: Daily, 30 Mckinley n 17 tab, Substituti on Allowed, TAB metoprolol Yes Taso 75 mg, 1.5 M emoria 50 mg oral 3-14 Mougouris tab, PO, l tablet 16:04: BID, 30 Christopher 44 tab, Substituti on Allowed, TAB rosuvastati Yes Taso 20 mg, 2 Me moria n 10 mg 3-14 Mougouris tab, PO, l oral tablet 16:02: QPM, 30 Her nagel 51 tab, Substituti on Allowed, TAB isosorbide Yes Taso 20 mg, 1 Mem oria dinitrate 3-14 Mougouris tab, PO, l 20 mg oral 16:02: BID, 60 Herm shannan tablet 41 tab, Substituti on Allowed, TAB diphenhydrA Yes Taso 25 mg, 1 Me moria MINE 25 mg 3-14 Mougouris tab, PO, l oral tablet 16:02: TID, PRN, H ermann 31 30 tab, Itching, Substituti on Allowed, TAB aspirin 325 Yes Taso 325 mg, 1 M emoria mg tablet, 3-14 Mougouris tab, PO, l enteric 16:02: QAM, 30 Perryman coated 25 tab, Substituti on Allowed, ECTAB acetaminoph Yes Taso 1 tab, PO, Memoria en-hydrocod 3-14 Mougouris Q4H, PRN, l one 325 16:02: 30 tab, Christopher mg-5 mg 22 Pain Score oral tablet 1-3, Substituti on Allowed, Maintenanc e, TAB isosorbide No Carol 20 mg, 1 M emoria dinitrate 3-14 [place]agop[place] tab, l 02:00: s Alphonso Route: PO, Her nagel 00 Drug form: TAB, BID, Dosing Weight 69.091, kg, Start date: 04/25/12 21:00:00, Duration: 30 day, Stop date: 05/25/12 17:00:00 Crestor No Carol 20 mg, 2 Wilfrid mendy 3-14 [place] tab, l 02:00: s Alphonso Route: PO, Her nagel Drug form: TAB, QPM, Dosing Weight 69.091, kg, Start date: 04/25/12 21:00:00, Duration: 30 day, Stop date: 05/25/12 17:00:00 methylPREDN No Kowalski Lissett 20 mg, 0.5 Memoria ISolone 3-14 Cottrell mL, Route: l 01:20: IV, Drug [place] 00 form: INJ, ONCE, Start date: 04/25/12 20:20:00, Stop date: 04/25/12 20:20:00 simvastatin No Kowalski Lissett 10 mg, 1 Memoria 3-13 [place]rell tab, l 02:00: Route: PO, Christopher 00 Drug form: TAB, Bedtime, Dosing Weight 69.091, kg, Start date: 04/24/12 21:00:00, Duration: 30 day, Stop date: 05/23/12 21:00:00 Benadryl No Sanjiv 25 mg, 1 Memor ia 3-12 Worship tab, l 09:47: Shant Route: PO, Herm shannan Drug form: TAB, TID, Dosing Weight 69.091, kg, PRN Itching, Start date: 04/24/12 4:47:00, Duration: 30 day, Stop date: 05/24/12 4:46:00 1/2 NS 2012-0 No Taso 1,000 mL, Memori a 1,000 mL 3-11 Mougouris Rate: 50 l 00:46: ml/hr, Infuse over: 20 hr, Route: IV, kg, Total Volume: 1,000, Start date: 04/22/12 19:46:00, Duration: 30 day, Stop date: 05/22/12 19:45:00 Robitussin 2012-0 No Renee 200 mg, 10 Memoria 100 mg/5 mL 3-10 Abousslema mL, Route: l oral liquid 19:24: n PO, Drug form: LIQ, Q4H, Dosing Weight 69.091, kg, Start date: 04/22/12 14:24:00, Duration: 30 day, Stop date: 05/22/12 12:00:00 potassium 2012-0 No Papo 20 mEq, M emoria chloride 3-10 Terry 100 mL, l 15:00: Route: Perryman 00 IVPB, Drug form: INJ, Q2H, Start date: 04/22/12 10:00:00, Duration: 2 doses or times, Stop date: 04/22/12 12:00:00 Geodon 2012-0 No Erasmo 10 mg, Memoria 3-10 Terminella Route: IM, l 06:52: Drug form: Perryman 00 PDR/INJ, Q8H, PRN Anxiety, Start date: 04/22/12 0:52:00, Duration: 30 day, Stop date: 05/22/12 0:51:00 aspirin 325 2012-0 No Luis 325 mg, 1 Memoria mg tablet, 309 Guru tab, l enteric 15:00: Marcin Route: PO, He rmann coated 00 Drug form: ECTAB, QAM, Start date: 04/21/12 9:00:00, Duration: 30 day, Stop date: 05/20/12 9:00:00 famotidine 2012-0 No Erasmo 20 mg, 1 Me moria 3-09 Terminella tab, l 15:00: Route: PO, Perryman 00 Drug form: TAB, Daily, Dosing Weight 69.091, kg, Start date: 04/21/12 9:00:00, Duration: 30 day, Stop date: 05/20/12 9:00:00 niCARdipine No Erasmo IV, Start Memoria 04-20 Terminella date: l 23:35: 04/20/12 Christopher 00 17:35:00, Duration: 30, 200 ml, 69.091 Sodium 2012- No Renee 1,000 mL, Memor ia Chloride 04-20 Abousslema Rate: 70 l 0.9% IV 21:38: n ml/hr, Perryman 1,000 mL 00 Infuse over: 14.3 hr, Route: IV, kg, Total Volume: 1,000, Start date: 04/20/12 15:38:00, Stop date: 05/20/12 15:37:00 Tylenol 2012- No Luis 650 mg, 1 Mem oria 3-08 Guru supp, l 21:36: Marcin Route: SD, Jackelyn nn 00 Drug form: SUPP, Q4H, PRN Fever, Start date: 04/20/12 15:36:00, Duration: 30 day, Stop date: 05/20/12 15:35:00 Tylenol 2012-0 No Luis 650 mg, 2 Mem oria 3-08 Guru tab, l 21:35: Marcin Route: PO, Jackelyn nn 00 Drug form: TAB, Q4H, PRN Fever, Start date: 04/20/12 15:35:00, Duration: 30 day, Stop date: 05/20/12 15:34:00 Zofran 2012-0 No Luis 4 mg, 2 Memori a 3-08 Guru mL, Route: l 21:33: Marcin IVP, Drug Mckinley n 00 form: INJ, Q6H, PRN Nausea & Vomiting, Start date: 04/20/12 15:33:00, Duration: 30 day, Stop date: 05/20/12 15:32:00 morphine 2012-0 No Papo 4 mg, 2 Me moria Sulfate 3-08 Terry mL, Route: l 21:27: IV, Drug Perryman 00 form: INJ, Q2H, PRN Pain Score 7-10, Start date: 04/20/12 15:27:00, Duration: 30 day, Stop date: 05/20/12 15:26:00 morphine 2012- No Luis 2 mg, 1 Wilfrid mendy Sulfate 3-08 Guru mL, Route: l 21:24: Marcin IV, Drug Christopher form: INJ, Q2H, PRN Pain Score 6-10, Start date: 04/20/12 15:24:00, Duration: 30 day, Stop date: 05/20/12 15:23:00 acetaminoph No Luis 2 tab, Me moria en-hydrocod 3-08 Guru Route: PO, l one 325 21:24: Marcin Drug Form: He rmann mg-5 mg 00 TAB, Q4H, oral tablet PRN Pain Score 4-6, Start date: 04/20/12 15:24:00, Duration: 30 day, Stop date: 05/20/12 15:23:00 acetaminoph No Luis 1 tab, Me moria en-hydrocod 3-08 Guru Route: PO, l one 325 21:23: Marcin Drug Form: He rmann mg-5 mg 00 TAB, Q4H, oral tablet PRN Pain Score 1-3, Start date: 04/20/12 15:23:00, Duration: 30 day, Stop date: 05/20/12 15:22:00 hydrALAZINE No Luis 10 mg, 0.5 Memoria 3-08 Guru mL, Route: l 21:19: Marcin IV, Drug Christopher form: INJ, Q6H, PRN Other -See Comment, Start date: 04/20/12 15:19:00, Duration: 30 day, Stop date: 05/20/12 15:18:00 Lactated No Luis 1,000 mL, Me moria Ringers 3-08 Guru Rate: 25 l Injection 15:59: Marcin ml/hr, Herm shannan IV 1,000 mL 00 Infuse over: 40 hr, Route: IV, kg, Total Volume: 1,000, Start date: 04/20/12 9:59:00, Duration: 1 day, Stop date: 04/21/12 9:58:00 losartan 2012- No Taso 100 mg, 2 Wilfrid mendy 3-08 Mougouris tab, l 15:00: Route: PO, Christopher 00 Drug form: TAB, Daily, Dosing Weight 68.182, kg, Start date: 04/20/12 9:00:00, Duration: 30 day, Stop date: 05/19/12 9:00:00 heparin 2012-0 No Taso 5,000 Memoria 3-08 Mougouris unit, 1 l 03:00: mL, Route: Perryman 00 SUB-Q, Drug form: INJ, Q12H, Dosing Weight 68.182, kg, Start date: 04/19/12 21:00:00, Duration: 30 day, Stop date: 05/19/12 9:00:00 latanoprost No Taso 1 drp, Wilfrid mendy ophthalmic 3-08 Mougouris Route: l 0.005% 03:00: OPTH, Perryman solution 00 Bedtime, Drug form: SOLN, Start date: 04/19/12 21:00:00, Duration: 30 day, Stop date: 05/18/12 21:00:00 atropine No Papo 0.5 mg, 5 Memoria 3-07 Terry mL, Route: l 23:18: IVP, Drug Christopher 00 form: INJ, PRN, PRN Bradycardi a, Start date: 04/19/12 17:18:00, Duration: 30 day, Stop date: 05/19/12 18:17:00 nitroglycer No Papo 0.4 mg, 1 Memoria in 0.4 mg 3-07 Terry tab, l sublingual 23:18: Route: SL, H ermann tablet 00 Drug form: TAB, Q5Min, PRN Chest Pain, Start date: 04/19/12 17:18:00, Duration: 30 day, Stop date: 05/19/12 18:17:00 vancomycin No Luis 1 gm, 200 Memoria 3-07 Guru mL, Route: l 23:00: Marcin IVPB, Drug Jackelyn nn 00 form: INJ, ONCALL, Start date: 04/19/12 17:00:00, Duration: 1 day, Stop date: 04/20/12 16:59:00 cefazolin + No Luis 1 gm, Mem oria Sodium 3-07 Guru Route: l Chloride 23:00: Marcin IVPB, Mckinley n 0.9% IV 100 00 ONCALL, mL Start date: 04/19/12 17:00:00, Duration: 1 day, Stop date: 04/20/12 16:59:00 Lopressor 2012-0 No Taso 75 mg, 3 Wilfrid mendy 3-07 Mougouris tab, l 23:00: Route: PO, Perryman 00 Drug form: TAB, BID, Dosing Weight 68.182, kg, Start date: 04/19/12 17:00:00, Stop date: 05/19/12 9:00:00 timolol 2012- No Taso 1 drp, Memoria ophthalmic 3-07 Mougouris Route: l 0.5% 23:00: BOTH EYES, Christopher solution 00 QPM, Drug form: SOLN, Start date: 04/19/12 17:00:00, Stop date: 05/18/12 17:00:00 brimonidine 2012- No Taso 1 drp, Wilfrid mendy ophthalmic 3-07 Mougouris Route: l 0.15% 23:00: OPTH, BID, Mckinley n solution 00 Drug form: SOLN, Start date: 04/19/12 17:00:00, Stop date: 05/19/12 9:00:00 baclofen 2012-0 No Taso 10 mg, 1 Memor ia 3-07 Mougouris tab, l 23:00: Route: PO, Perryman Drug form: TAB, BID, Dosing Weight 68.182, kg, Start date: 04/19/12 17:00:00, Duration: 30 day, Stop date: 05/19/12 9:00:00 aspirin 325 2012-0 No Luis 325 mg, 1 Memoria mg tablet 04-19 Guru tab, l 22:44: Marcin Route: PO, Jackelyn nn 00 Drug form: TAB, Daily, Start date: 04/19/12 16:44:00, Duration: 30 day, Stop date: 05/19/12 9:00:00 Ativan 2012-0 No Taso 1 mg, 0.5 Memori a 3-07 Mougouris mL, Route: l 18:50: INJ, Drug Perryman 00 form: INJ, Q6H, Dosing Weight 68.182, kg, PRN as needed for anxiety, Start date: 04/19/12 12:50:00, Duration: 30 day, Stop date: 05/19/12 12:49:00 clonidine 2012-0 No Taso 0.1 mg, 1 Mem oria 3-07 Mougouris tab, l 18:50: Route: PO, Christopher 00 Drug form: TAB, Q8H, Dosing Weight 68.182, kg, PRN Hypertensi on, Start date: 04/19/12 12:50:00, Duration: 30 day, Stop date: 05/19/12 12:49:00 Dextrose 2012- No Taso 25 gm, 50 Wilfrid mendy 50% Syringe 3-07 Mougouris mL, Route: l 18:49: IVP, Drug Perryman Form: INJ, Dosing Weight 68.182, kg, PRN, PRN Blood Glucose Results, Start date: 04/19/12 12:49:00, Duration: 30 day, Stop date: 05/19/12 13:48:00 glucagon 2012-0 No Taso 1 mg, Memoria 3-07 Mougouris Route: IM, l 18:49: Drug form: Perryman PDR/INJ, PRN, Dosing Weight 68.182, kg, PRN Blood Glucose Results, Start date: 04/19/12 12:49:00, Duration: 30 day, Stop date: 05/19/12 13:48:00 insulin 2012-0 No Taso 1 unit, Memoria aspart 3-07 Mougouris 0.01 mL, l 18:49: Route: Perryman 00 SUB-Q, Drug form: SOLN, TID-Before Meals, Dosing Weight 68.182, kg, PRN Blood Glucose Results, Start date: 04/19/12 12:49:00, Duration: 30 day, Stop date: 05/19/12 12:48:00 Symbicort 2012-0 No Taso 2 Memoria 160/4.5 3-07 Mougouris inhalation l inhalation 18:47: , Route: Her nagel aerosol 00 INHALATION with , Drug adapter Form: AERO/A, Dosing Weight 68.182, kg, PRN, PRN Shortness of breath, Start date: 04/19/12 12:47:00, Duration: 30 day, Stop date: 05/19/12 13:46:00, sob aspirin 325 No Luis 325 mg, M emoria mg tablet 04-19 Route: PO, l 18:25: Marcin Drug form: Jackelyn nn 00 TAB, ONCE, Dosing Weight 68.182, kg, Priority: STAT, Start date: 04/19/12 12:25:00, Stop date: 04/19/12 12:25:00 hydrALAZINE No Luis 20 mg, 1 Memoria 04-19 Guru mL, Route: l 12:07: Marcin IV, Drug Christopher 00 form: INJ, Q6H, Dosing Weight 68.182, kg, PRN Elevated BP, Start date: 04/19/12 6:07:00, Duration: 30 day, Stop date: 05/19/12 6:06:00, SBP >165 brimonidine Yes Taso 1 drp, Wilfrid mendy ophthalmic -07 Mougouris OPTH, BID, l 0.15% 08:51: 5 ml, Perryman solution 03 Substitute Allowed, SOLN latanoprost Yes Taso 1 drp, Wilfrid mendy ophthalmic - Mougouris OPTH, l 0.005% 08:50: Bedtime, 3 Jackelyn nn solution 00 ml, Substitute Allowed, SOLN timolol Yes Taso 1 drp, Memoria ophthalmic - Mougouris OPTH, QPM, l long-acting 08:49: 5 ml, Jackelyn nn , 0.5% 18 Substitute solution Allowed, SOLN Symbicort Yes Taso 2 puff, Memor ia 160/4.5 04-19 Mougouris INHALATION l inhalation 08:47: , PRN, PRN H ermann aerosol 57 for cough, with Substituti adapter on Allowed, Maintenanc ePRN for cough losartan Yes Taso 100 mg, 1 Wilfrid mendy 100 mg oral 04-19 Mougouris tab, PO, l tablet 08:45: Daily, 30 Mckinley n 29 tab, Substituti on Allowed, TAB Metoprolol No Taso 50 mg, 1 Mem oria Tartrate 50 04-19 Mougouris tab, PO, l mg oral 08:44: BID, Christopher tablet 00 Substituti on Allowed glyBURIDE-m Yes 2 tab, PO, Memoria etformin 5 3-07 BID, 60 l mg-500 mg 08:42: tab, Perryman oral tablet 12 Substituti on Allowed, Maintenanc e, TAB baclofen Yes Taso 10 mg, PO, Mem oria 307 Mougouris BID, l 08:38: Substituti Christopher 01 on Allowed Saline No Papo 5 ml, Memori a Flush 0.9% 04-19 Terry Route: l 06:44: IVP, Drug Perryman Form: INJ, Dosing Weight 68.182, kg, PRN, PRN Line Flush, Start date: 04/19/12 0:44:00, Duration: 30 day, Stop date: 05/19/12 1:43:00 acetaminoph No Papo 650 mg, 2 Memoria en 04-19 Terry tab, l 06:44: Route: PO, Christopher 00 Drug form: TAB, Q4H, Dosing Weight 68.182, kg, PRN Pain/Fever , Start date: 04/19/12 0:44:00, Duration: 30 day, Stop date: 05/19/12 0:43:00 ondansetron No Papo 4 mg, 2 Memoria 3- Terry mL, Route: l 06:44: IVP, Drug form: INJ, Q6H, Dosing Weight 68.182, kg, PRN Nausea & Vomiting, Start date: 04/19/12 0:44:00, Duration: 30 day, Stop date: 05/19/12 0:43:00 Sodium No Luis 1,000 mL, Wilfrid mendy Chloride 04-19 Guru Rate: 40 l 0.9% IV 06:44: Marcin ml/hr, Mckinley n 1,000 mL 00 Infuse over: 25 hr, Route: IV, kg, Total Volume: 1,000, Start date: 04/19/12 0:44:00, Duration: 30 day, Stop date: 05/19/12 0:43:00 Benadryl No George 50 mg, Wilfrid mendy 3 Mac Route: l 03:13: IVP, ONCE, Dosing Weight 68.182, kg, Priority: STAT, Start date: 04/18/12 21:13:00, Stop date: 04/18/12 21:13:00 SoluMedrol No George 125 mg, Cricket neves 04-19 Mac Route: l 03:12: IVP, ONCE, Dosing Weight 68.182, kg, Priority: STAT, Start date: 04/18/12 21:12:00, Stop date: 04/18/12 21:12:00 Saline No Papo 5 mL, Memori a Flush 0.9% 04-19 [facility] Route: l 03:05: IVP, Drug Form: INJ, Dosing Weight 68.182, kg, Q8H, PRN Line Flush, Start date: 04/18/12 21:05:00, Duration: 30 day, Stop date: 05/18/12 21:04:00, Administer at least once every 8 hoursAdmin ister at least once every 8 hours Klor-Con Klor-Con Yes Na Trpip [address] [facility] M10 M10 with food [facility] Benzonatate Benzonatate Yes Na Tripp [address] [facility] as needed [facility] Plavix Plavix Yes Na Tripp [address] [facility] Metoprolol Metoprolol Yes Na Tripp [address] [facility] Tartrate Tartrate with food Anuja kes - [facility] Pantoprazol Pantoprazol Yes Na Tripp [address] [facility] e Sodium e Sodium [facility] Aspir-81 Aspir-81 Yes Na Tripp [address] [facility] Alendronate Alendronate Yes Na Tripp [address] [facility] Sodium Sodium [facility] Cetirizine Cetirizine Yes Na Tripp TAKE ONE [facility] HCl HCl TABLET BY [facility] - MOUTH ONCE Memoria DAILY [facility] Citalopram Citalopram Yes Na Tripp take one [facility] Hydrobromid Hydrobromid tablet by [facility] e e mouth once Memoria daily [facility] Hyzaar Hyzaar Yes Na Tripp [address] [facility] Atorvastati Atorvastati Yes Na Tripp [address] [facility] n Calcium n Calcium at bedtime [facility] Ketoconazol Ketoconazol Yes Na Tripp [address] [facility] e e applicatio [facility] to [facility] Triamcinolo Triamcinolo Yes Na Tripp [address] [facility] ne ne applicatio [facility] - Acetonide Acetonide n to [facility] affected [facility] Metformin Metformin Yes Na Tripp [address] [facility] HCl HCl with a [facility] - meal [facility] Pentoxifyll Pentoxifyll Yes Na Tripp [address] [facility] ine ER ine ER with meals [facility] Potassium Potassium Yes Na Tripp TAKE ONE [facility] Chloride Chloride TABLET BY Anuja kes - [facility] MOUTH Memoria TWICE l DAILY [facility] GlipiZIDE GlipiZIDE Yes Na Tripp [address] [facility] Hydrochloro Hydrochloro Yes Na Tripp TAKE [address] [facility] thiazide thiazide TABLET BY Anuja kes - MOUTH ONCE Memoria DAILY l [facility] ent [facility] Immunizations Ordered Immunization Filled Immunization Date Status Commen ts Source Name Name Pneumococcal 2017-04-02 Completed [facility] Conjugate 13-Valent 00:00:00 [facility] Vital Signs Vital Name Observation Time Observation Value Comments Source Heart Rate 2016-06-14 16:00:00 [facility] [place] Respitory Rate 2016-06-14 16:00:00 Sissy al Christopher Temperature Oral (F) 2016-06-14 16:00:00 98.4 F [facility] Systolic (mm Hg) 2016-06-14 16:00:00 Wilfrid rial Christopher Diastolic (mm Hg) 2016-06-14 16:00:00 Mem orial [place] Systolic (mm Hg) 2016-06-14 12:00:00 Wilfrid rial Christopher Diastolic (mm Hg) 2016-06-14 12:00:00 Mem orial Christopher Respitory Rate 2016-06-14 12:00:00 Memori al [place] Heart Rate 2016-06-14 12:00:00 [facility] Christopher Temperature Oral (F) 2016-06-14 12:00:00 98.8 F [facility] Christopher Systolic (mm Hg) 2016-06-14 07:48:00 Wilfrid rial [place] Diastolic (mm Hg) 2016-06-14 07:48:00 Mem orial Christopher Respitory Rate 2016-06-14 07:48:00 Memori al Christopher Heart Rate 2016-06-14 07:48:00 [facility] [place] Temperature Oral (F) 2016-06-14 07:48:00 98.2 F [facility] Height 2016-06-08 11:57:00 152.4 cm [facility] Weight 2016-06-08 11:57:00 [facility] BMI Calculated 2016-06-08 11:57:00 Memori al Christopher Respitory Rate 2016-06-03 23:00:00 Memori al [place] Systolic (mm Hg) 2016-06-03 23:00:00 Wilfrid rial [place] Diastolic (mm Hg) 2016-06-03 23:00:00 Mem orial [place] Systolic (mm Hg) 2016-06-03 22:00:00 Wilfrid rial Christopher Diastolic (mm Hg) 2016-06-03 22:00:00 Mem orial [place] Systolic (mm Hg) 2016-06-03 21:30:00 Wilfrid rial Christopher Diastolic (mm Hg) 2016-06-03 21:30:00 Mem orial Christopher Respitory Rate 2016-06-03 18:00:00 Memori al Christopher Respitory Rate 2016-06-03 17:45:00 Memori al Christopher Temperature Oral (F) 2016-05-26 13:36:00 98.4 F [facility] [place] Heart Rate 2016-05-26 13:36:00 [facility] Weight 2016-05-26 13:27:00 [facility] Christopher BMI Calculated 2016-05-26 13:27:00 Memori al Christopher Height 2016-05-26 13:27:00 152.4 cm [facility] [place] Systolic (mm Hg) 2012-04-26 19:50:00 Wilfrid rial Christopher Diastolic (mm Hg) 2012-04-26 19:50:00 Mem orial Christopher Systolic (mm Hg) 2012-04-26 17:15:00 Wilfrid rial Christopher Diastolic (mm Hg) 2012-04-26 17:15:00 Mem orial Christopher Temperature Oral (F) 2012-04-26 17:00:00 97.1 F [facility] [place] Diastolic (mm Hg) 2012-04-26 17:00:00 Mem orial Christopher Systolic (mm Hg) 2012-04-26 17:00:00 Wilfrid rial [place] Respitory Rate 2012-04-26 17:00:00 Memori al [place] Heart Rate 2012-04-26 17:00:00 [facility] Christopher Respitory Rate 2012-04-26 13:00:00 Memori al [place] Heart Rate 2012-04-26 13:00:00 [facility] [place] Temperature Oral (F) 2012-04-26 13:00:00 97.9 F [facility] [place] Respitory Rate 2012-04-26 09:16:00 Memori al Christopher Heart Rate 2012-04-26 09:16:00 [facility] Christopher Temperature Oral (F) 2012-04-26 09:16:00 98.3 F [facility] Christopher Weight 2012-04-20 05:54:00 [facility] Christopher Height 2012-04-19 01:59:00 152.4 cm [facility] [place]man Weight 2012-04-19 01:59:00 [facility] Christopher Procedures Procedure Date / Time Performed Performing Clinician Sourc e Bypass [facility] [place] Bypass<sup>1</sup> [facility] Herm shannan Carotid endarterectomy [facility] [place] Placement of stent in [facility] ermann cardiac conduit Stent placement [facility] Christopher Plan of Care Planned Activity Planned Date Details Comments Source Future Scheduled 2019-09-14 INFLUENZA VACCINE [place] [facility] 00:00:00 [code = INFLUENZA VACCINE] Future Scheduled 2018-04-02 65+ PNEUMOCOCCAL [facility] 00:00:00 VACCINE (2 of 2 - PPSV23) [code = 65+ PNEUMOCOCCAL VACCINE (2 of 2 - PPSV23)] Future Scheduled 1988 SHINGLES VACCINES (#1) [place] [facility] 00:00:00 [code = SHINGLES VACCINES (#1)] Future Scheduled 1954 COVID-19 VACCINE (1 of [place] [facility] 00:00:00 2) [code = COVID-19 VACCINE (1 of 2)] Encounters Start End Encounter Admission Attending Care Care Encounter Source Date/Time Date/Time Type Type Clinicians Facility Department ID 2020-03-05 2020-03-05 Outpatient [facility] [id number] [facility] 2020-03-05 2020-03-05 Outpatient [facility] [id number] [facility] 2020-02-28 2020-02-28 Outpatient [facility] [id number] [facility] 2020-02-28 2020-02-28 Outpatient [facility] [id number] [facility] 2020-02-27 2020-02-27 Outpatient [facility] [id number] [facility] 2020-02-20 2020-02-20 Outpatient [facility] [id number] [facility] 2019-11-06 2019-11-06 Outpatient [facility] [id number] [facility] 2019-08-28 2019-08-28 [facility] [id number] [facility] 09:42:00 09:42:00 t [employer] [facility] Medicine l Medicine Outpati ent Clinics 2019-08-05 2019-08-05 [facility] [id number] [facility] 11:00:00 11:00:00 t zuuka! [facility] l Medicine Outpati ent Clinics 2019-07-29 2019-07-29 [facility] [id number] [facility] 11:43:00 11:43:00 t zuuka! [facility] l Medicine Outpati ent Clinics 2019-06-17 2019-06-17 [facility] [id number] [facility] 10:40:00 10:40:00 [employer] [facility] Medicine l Medicine Outpati ent Clinics 2019-06-12 2019-06-12 [facility] [id number] [facility] 13:20:00 13:20:[address] [facility] [address] [employer] s - Road [facility] Medicine Outpati ent Clinics 2019-06-11 2019-06-11 [facility] [id number] [facility] 10:41:00 10:41:00 t [place] [employer] s - Drive [facility] Medicine Outpati ent Clinics 2019-06-05 2019-06-05 [facility] [id number] [facility] 09:20:00 09:20:00 t [place] [employer] s - Drive [facility] Medicine Outpati ent Clinics 2019-06-03 2019-06-03 [facility] [id number] 09:27:00 09:27:00 t [employer] [facility] Medicine Outpati ent Clinics 2019-04-09 2019-04-09 [facility] [id number] [facility] 08:20:00 08:20:00 t [employer] - Drive [facility] Medicine Outpati ent Clinics 2019-04-02 2019-04-02 [facility] [id number] [facility] 07:56:00 07:56:00 t [employer] [facility] Medicine Outpati ent Clinics 2019-03-12 2019-03-12 [facility] [id number] [facility] 10:53:00 10:53:00 t [employer] [facility] Medicine Outpati ent Clinics 2019-03-04 2019-03-04 [facility] [id number] [facility] 15:25:00 15:25:00 t Specialty/U Anuja kes - Specialty rology [facility]Urology Clinic l Clinic Outpati ent Clinics 2019-03-04 2019-03-04 [facility] [id number] 11:34:00 11:34:00 t [place] [employer] [facility] Medicine Outpati ent Clinics 2019-02-01 2019-02-01 [facility] [id number] 14:51:00 14:51:00 t [place] [address] Luke s - Drive [facility] Medicine l Medicine Outpati ent Clinics 2019-01-07 2019-01-07 [facility] [id number] [facility] 14:40:00 14:40:00 t [place] [employer] s - Drive [facility] Medicine l Medicine Outpati ent Clinics 2018-12-18 2018-12-18 [facility] [id number] [facility] 11:11:00 11:11:00 Women Wom[facility] l Outpati ent Clinics 2018-11-30 2018-11-30 [facility] [id number] [facility] 10:10:00 10:10:00 t [place] [employer] s - Drive [facility] Medicine Medicine Outpati ent Clinics 2018-10-14 2018-10-14 [facility] [id number] [facility] 20:24:00 20:24:00 t [place] [employer] s - Drive [facility] Medicine Outpati ent Clinics 2018-10-08 2018-10-08 [facility] [id number] 13:20:00 13:20:00 t [place] [employer] s - Drive [facility] Medicine l Medicine Outpati ent Clinics 2018-09-17 2018-09-17 [facility] [id number] 12:25:00 12:25:00 t [place] [employer] s - Drive [facility] Medicine l Medicine Outpati ent Clinics 2018-09-06 2018-09-06 [facility] [id number] [facility] 14:00:00 14:00:00 t [place] [employer] s - Drive [facility] Medicine l Medicine Outpati ent Clinics 2018-06-07 2018-06-07 [facility] [id number] 09:40:00 09:40:00 t [place] [employer] s - Drive [facility] Medicine Medicine Outpati ent Clinics 2018-05-04 2018-05-04 [facility] [id number] [facility] 16:39:00 16:39:00 [place] [employer] - Drive [facility] Medicine l Medicine Outpati ent Clinics 2018-04-11 2018-04-11 [facility] [id number] [facility] 11:39:00 11:39:00 [place] [facility] - Drive [facility] l Medicine Outpati ent Clinics 2018-03-14 2018-03-14 [facility] [id number] [facility] 11:56:00 11:56:00 [place] [address] [place] [facility] l Medicine Outpati ent Clinics 2018-03-09 2018-03-09 [facility] [id number] [facility] 14:57:00 14:57:[address] [place] [address] [place] - Drive [facility] l Medicine Outpati ent Clinics 2018-03-05 2018-03-05 [facility] [id number] [facility] 09:30:00 09:30:00 [place] [address] [place] - Drive [facility] Medicine l Medicine Outpati ent Clinics 2018-01-08 2018-01-08 [facility] [id number] [facility] [address] 10:15:00 10:15:00 [place] [address] [place] - Drive [facility] Medicine l Medicine Outpati ent Clinics 2017-10-11 2017-10-11 [facility] [id number] [facility] 15:45:00 15:45:00 [place] [address] [place] - Drive [facility] Medicine l Medicine Outpati ent Clinics 2017-08-21 2017-08-21 [facility] [id number] [facility] 15:00:00 15:00:00 [place] [address] [place] - Drive [facility] Medicine l Medicine Outpati ent Clinics 2017-06-20 2017-06-20 [facility] [id number] [facility] 16:33:00 16:33:00 [place] [address] [place] - Drive [facility] Medicine l Medicine Outpati ent Clinics 2017-06-15 2017-06-15 [facility] [id number] 10:42:00 10:42:00 [place] [address] [place] - Drive [facility] Medicine l Medicine Outpati ent Clinics 2017-06-02 2017-06-02 [facility] [id number] [facility] [address] 12:11:00 12:11:00 [place] [address] [place] - Drive [facility] Medicine l Medicine Outpati ent Clinics 2017-05-23 2017-05-23 [facility] [id number] [address] 20:14:00 20:14:00 t [employer] [facility] 2017-05-22 2017-05-22 [facility] [id number] 14:00:00 14:00:00 t [employer] [facility] ent [facility] 2016-06-08 2016-06-14 Outpatient BRAYDEN Burch [facility]SE [id number] 09:04:00 13:19:00 Luis Galindo Garvey 2016-06-03 2016-06-03 Outpatient PRAVEEN BurchSE [facility]SE [id number] 08:42:00 18:11:00 Luis Luciana Garvey 2013-04-03 2013-04-03 Outpatient [facility]IE [facility] [id number] 07:30:34 07:30:33 2013-03-27 2013-03-27 Outpatient [facility] [id number] 09:36:24 09:36:24 2013-01-30 2013-01-30 Outpatient [facility]IE [facility] [id number] 12:32:34 12:32:34 2012-06-12 2012-06-12 Outpatient [facility]IE [facility] [id number] 11:18:59 11:18:59 Results Test Description Test Time Test Comments Results Result Comments Source CHEM PANEL 2016-06-13 86 [facility] 11:25:00 CHEM PANEL 2016-06-13 8.9 [facility] 11:25:00 CHEM PANEL 2016-06-13 6.2 [facility] 11:25:00 CHEM PANEL 2016-06-13 0.5 [facility] 11:25:00 CHEM PANEL 2016-06-13 30 [facility] 11:25:00 CHEM PANEL 2016-06-13 18 [facility] 11:25:00 CHEM PANEL 2016-06-13 2.9 [facility] 11:25:00 CHEM PANEL 2016-06-13 15 [facility] 11:25:00 CHEM PANEL 2016-06-13 71 [facility] 11:25:00 CHEM PANEL 2016-06-13 100 [facility] 11:25:00 CHEM PANEL 2016-06-13 140 [facility] 11:25:00 CHEM PANEL 2016-06-13 0.64 [facility] 11:25:00 CHEM PANEL 2016-06-13 23 [facility] 11:25:00 CHEM PANEL 2016-06-13 3.5 [facility] 11:25:00 CHEM PANEL 2016-06-13 134 [facility] 11:25:00 CHEM PANEL 2016-06-13 0.9 [facility] 11:25:00 CHEM PANEL 2016-06-13 3.3 [facility] 11:25:00 CHEM PANEL 2016-06-13 36 [facility] 11:25:00 CHEM PANEL 2016-06-13 13.5 [facility] 11:25:00 HEMATOLOGY 2016-06-13 34.1 [facility] 11:25:00 HEMATOLOGY 2016-06-13 9.4 [facility] 11:25:00 HEMATOLOGY 2016-06-13 17.1 [facility] 11:25:00 HEMATOLOGY 2016-06-13 11:25:00 Test Item Value Reference Range Interpretation Comme nts MCH (test code = MCH) 26.8 pg 27.0-31.0 [facility] PeggtkeSQGARIBUHV4258-96-04 11:25:39416Hbfhratr HermannHEMATOLOGY 2016-06-13 11:25:009.9[facility] JeeqxjcMHRCELZLIB4617-75-57 11:25:008.2[facility] FwkzmwbFJMHDFQWAL9056-61-81 11:25:003.05[facility] RwjvnsfACTVWYGIUQ8071-83-85 11:25:0078.5[facility] YrwovhmFVKXYNKICC1882-08-37 11:25:0023.9[facility] CDZRXXCIZT3308-73-91 11:25:001+ *ABN*(06/13/16 6:25 AM)[facility]annHEMATOLOGY 2016-06-13 11:25:000.1[facility] NtmxzihSJOLAJPLIU6350-60-32 11:25:000.2[facility] DdlgifpQHCEQPEUYO9905-86-80 11:25:000.7[facility] GhlgpvbRDTXAZLLSU7305-41-10 11:25:0017.6[facility] WngeyijOBDCXHVLQX6025-95-20 11:25:0073.1[facility] AIVTXWQTCA2313-88-23 11:25:000.5[facility] LylzzssSNSDGRFGGE8982-14-85 11:25:002.2 [facility] CkrgahsWESKISUOTF3061-86-12 11:25:006.6[facility] HermannHEMATOLOGY 2016-06-13 11:25:001.7[facility] ZlczsraVXEJUGAEXN9845-57-95 11:25:007.2[facility] RtndknkRQMCLIWWFP4620-75-78 02:08:008.0[facility] QlqwgxaCZNARTAXKO2271-30-12 02:08:0024.0[facility] HermannBLOOD BANK ARLPYZT5626-64-81 11:30:00Product available 1(06/10/16 6:30 AM)[facility] HermannCHEM NBTKC1054-04-82 09:06:0085 [facility] HermannCHEM UVCWC2749-52-39 09:06:000.66[facility] HermannCHEM PANEL 2016-06-10 09:06:003.9[facility] HermannCHEM HISPP9013-06-55 09:06:16129Fopwseew HermannCHEM KATSJ4971-93-88 09:06:88841Cqhnwwbk HermannCHEM WARPY6217-91-42 09:06:0025[facility] HermannCHEM RTCXR2583-74-80 09:06:0012.9[facility] HermannCHEM UVMRS8825-38-51 09:06:007.9[facility] HermannCHEM XRRXG7309-24-48 09:06:96544 [facility] HermannCHEM GHAES1180-09-86 09:06:0019[facility] HermannCHEM PANEL 2016-06-10 09:06:002.1[facility] HermannCHEM QSILK9008-81-99 09:06:002.8[facility] XdxddtpOKPMCDNQRS2914-65-54 09:06:007.3[facility] GfunmlwQCZWMYTRDL1876-58-88 09:06:002.77[facility] KkykrxnTLLCHOPELS4143-45-28 09:06:008.1[facility] EQYYOFPZUL6024-41-46 09:06:009.8[facility] LecvbolEUXAWIGINQ0455-77-87 09:06:58729 [facility] LnhukiiNXMOIDEXFC9201-90-99 09:06:0078.7[facility] HermannHEMATOLOGY 2016-06-10 09:06:0016.6[facility] PxsmluzIOTPEARTNQ1659-55-08 09:06:0033.4[facility] CrxpncpKDFEZLBMDX9447-67-32 09:06:0021.8[facility] PafzyzgJIGUVQDIPH1703-77-21 09:06:00 Test Item Value Reference Range Interpretation Comments MCH (test code = MCH) 26.3 pg 27.0-31.0 [facility] DijaibkFUAOMPTYXA6424-36-02 09:06:001+ *ABN*(06/10/16 4:06 AM)[facility] UsubzvrEMANUZXUJQ3293-34-53 09:06:005.6[facility] MeeyxbxEDEPRQHBJN0237-80-09 09:06:000.1[facility] EkuydtwIXEOFBDGBN9257-32-40 09:06:000.5[facility] OFYXJZRYEU8117-02-91 09:06:000.3[facility] XrpjbzsPTTZQHPQZP7598-04-84 09:06:001.9 [facility] VhowvkwZTSHPWJBHF5636-40-09 09:06:000.9[facility] HermannHEMATOLOGY 2016-06-10 09:06:006.5[facility] KybfytoJMRZDMTUOJ0226-62-42 09:06:0023.3[facility] YshpcnrLXAZSZYCBZ2412-94-06 09:06:0069.0[facility] HermannCHEM EEKXU4230-18-27 09:37:0084[facility] HermannCHEM SSSGN8031-94-98 09:37:000.70[facility] HermannCHEM LCPPH1121-66-36 09:37:003.8[facility] HermannCHEM OJHKJ3246-69-23 09:37:80372 [facility] HermannCHEM RFZVB8074-53-85 09:37:56437Kkzgwxah HermannCHEM PANEL 2016-06-09 09:37:0020[facility] HermannCHEM TZULG0664-30-04 09:37:007.6[facility] HermannCHEM CJVPV4994-83-78 09:37:98513Vatmsypt HermannCHEM XBFSN2225-59-75 09:37:0010.8[facility] HermannCHEM MQFGB8258-05-21 09:37:0028[facility] XALDLOCBCY9599-24-60 09:37:003.07[facility] MdholliHCYOCDOHBV7105-99-78 09:37:00 77.3[facility] SninfdiGUZNQMYDZF9114-08-01 09:37:009.5[facility] HermannHEMATOLOGY 2016-06-09 09:37:0033.5[facility] XugeamtIQCAGMOBWC3324-59-92 09:37:0016.4[facility] LpqnoxrOYKVGGZHKV2388-77-86 09:37:00 Test Item Value Reference Range Interpretation Comments MCH (test code = MCH) 25.9 pg 27.0-31.0 [facility] FdbimooIPFSTGMDZQ8519-86-41 09:37:14941Krkxvsnu HermannHEMATOLOGY 2016-06-09 09:37:009.1[facility] YqbfhyvKTVNZAECTG9930-79-54 09:37:001+ *ABN*(06/09/16 4:37 AM)[facility] VlruzduYKRRPRWQLV8887-30-94 09:37:0013.1[facility] LkmllhtGYFJAVZZBM0211-35-58 09:37:007.3[facility] OgfqaggUQUQAMBCMZ1877-63-18 09:37:007.6[facility] WprybfmWZKDYWOTZM1842-11-63 09:37:000.2[facility] JIIOJXJWAL8437-95-55 09:37:0079.4[facility] VyvnjtpRIQKTXWKNW8620-29-84 09:37:00 1.3[facility] LztmpxmREHJVKAUGB4040-19-45 09:37:000.7[facility] HermannBACTERIAL - LZEZXBZS0974-84-92 18:43:00Negative (06/08/16 1:43 PM)[facility] HermannBLOOD BANK ZKJBQLD3513-84-14 12:38:00Negative (06/08/16 7:38 AM)[facility] HermannHEMATOLOGY 2016-06-08 12:38:001.04[facility] WvwvkqkXYYLIGHCYT0666-83-58 12:38:00 Test Item Value Reference Range Interpretation Comments PT (test code = PT) 13.8 s 12.0-14.7 [facility] KvqallpCFBONHUUSR7375-35-49 12:38:00 Test Item Value Reference Range Interpretation Comments PTT (test code = PTT) 30.6 s 22.9-35.8 [facility] NzketawYJXOHXMCOX7016-34-70 12:38:000.2[facility] HermannHEMATOLOGY 2016-06-08 12:38:001.6[facility] HermannCHEM FXJOH2435-34-09 14:42:0062[facility] HermannCHEM JOHWX9568-98-37 14:42:33865Pqntttdl HermannCHEM NFRMW8708-06-73 14:42:000.90[facility] HermannCHEM IONAT9294-66-82 14:42:51515Nlbjgdtu HermannCHEM XREGS7261-56-59 14:42:003.6[facility] HermannCHEM HQNUO7287-36-66 14:42:0030 [facility] HermannCHEM YLHCD9140-70-96 14:42:008.9[facility] HermannCHEM PANEL 2016-05-26 14:42:17735Pqaamnwo HermannCHEM SFFYT2014-71-29 14:42:0020[facility] HermannCHEM FZLGI4814-23-89 14:42:0011.6[facility] UahqrvsOKPXNLVZWK8957-38-10 14:42:001+ *ABN*(05/26/16 9:42 AM)[facility] RxaqcmwXUIXUDHMQS4397-98-54 14:42:00 0.5[facility] JiythqsSJLHJIOLOO3887-95-02 14:42:000.2[facility] HermannHEMATOLOGY 2016-05-26 14:42:001.6[facility] XczuukoWIAQLEAKHS7626-39-46 14:42:006.9[facility] DdrptviBXYQWJQLQI7820-42-76 14:42:000.4[facility] IgjfazoTCMNUEBERP1899-96-72 14:42:004.9[facility] FgkgsnpCTDZAAXPVD9073-29-69 14:42:001.8[facility] BJZSLCVROJ4563-70-74 14:42:0017.4[facility] MreihsrWJDVBAYHGT2060-37-91 14:42:00 75.5[facility] WpbuziuWEHMAJLHIZ5118-41-17 14:42:13926Ghfdujrm HermannHEMATOLOGY 2016-05-26 14:42:00 Test Item Value Reference Range Interpretation Comments MCH (test code = MCH) 25.9 pg 27.0-31.0 [facility] SwxjtcpDSGDMKGRCK8970-18-71 14:42:009.8[facility] HermannHEMATOLOGY 2016-05-26 14:42:0016.2[facility] UyyvcigNQLJAIKQPH9844-30-63 14:42:0033.0[facility] AsfdrlrFGBSROKOQR0997-08-97 14:42:0037.2[facility] ClplnguDTLASJBYDG3357-52-93 14:42:0078.3[facility] SqkutwjJUSGETASMB0935-21-81 14:42:0012.3[facility] YLKLDNYPAL1217-08-58 14:42:004.75[facility] IwxczkqUPVZNNIRWY2058-91-68 14:42:00 9.2[facility] VlcuipyYQZMMZOKYO4913-13-69 14:42:00 Test Item Value Reference Range Interpretation Comments PT (test code = PT) 13.8 s 12.0-14.7 [facility] GirsmleGSCYGWQOVP0928-01-69 14:42:001.04[facility] HermannHEMATOLOGY 2016-05-26 14:42:00 Test Item Value Reference Range Interpretation Comments PTT (test code = PTT) 32.1 s 22.9-35.8 [facility] HermannBEDSIDE GLUCOSE BCTDIZT7897-41-51 20:21:36206Ikphphid [facility] BEDSIDE GLUCOSE JLSKNEM6887-95-45 16:28:82883Mbsbhmbv HermannBEDSIDE GLUCOSE XXVQNDO3577-93-55 11:13:01940Suqwcvls SmofvehFCICFTHGD7255-81-03 10:31:02143 [facility] DxvjnukBOUZGIKTK9083-36-67 10:31:12424Sbngbbnj HermannCHEMISTRY 2012-04-25 10:31:003.6[facility] CowlkmeETCBBLARE2383-13-66 10:31:0096[facility] VlqeexbBXMCRGHYQ7734-71-00 10:31:000.5[facility] FcvywesYWXEBSXAE3602-26-65 10:31:0028[facility] KjiccjbKGRZCRUUU2980-08-95 10:31:007.8[facility] SOYSGTLJW0003-02-76 10:31:0014[facility] SareukkVULPBVODG9750-65-99 10:31:50156 [facility] FdzeqjgACFZLJKYR6086-16-61 10:31:0014.6[facility] HermannHEMATOLOGY 2012-04-25 10:31:04302Dplefoyw ImwaocnRYTHZUOJLG3290-25-77 10:31:0032.4[facility] ZroiszaAYOUSTPOOZ0233-60-00 10:31:0015.7[facility] EpiznynVHDYTARPRV9583-39-53 10:31:00 Test Item Value Reference Range Interpretation Comments MCH (test code = MCH) 26.8 pg 27.0-31.0 L [facility] UobtgomYGQREQLNPN7467-12-82 10:31:0082.8[facility] HermannHEMATOLOGY 2012-04-25 10:31:009.9[facility] JrkqrtoMZIYYMFVNZ3646-04-96 10:31:0029.4[facility] MjfweyeZERYWQLSYI4757-25-69 10:31:009.5[facility] NanojusPZLDAWXXEJ9228-14-26 10:31:003.55[facility] XiiddemBCUAVDTPDB6440-46-27 10:31:008.9[facility] CBADKOKFXO4982-83-31 10:31:007.2[facility] YwngxbrUHAYADHGXC8256-55-48 10:31:000.1 [facility] AxvygwmFXNZZJWMYK8584-10-94 10:31:000.0[facility] HermannHEMATOLOGY 2012-04-25 10:31:000.4[facility] MfvptpjRGRQJLDEDF4319-55-34 10:31:000.4[facility] HsjbdmkUZATUWBATM2543-57-79 10:31:000.8[facility] YdpeystJMCQPKEVTL5456-67-72 10:31:004.8[facility] SjikfgiGTBWRMQEPA4334-35-22 10:31:004.8[facility] UGFUOBABVR6023-19-54 10:31:008.9[facility] JhxazbcPBTVELNUPK7095-17-12 10:31:00 81.4[facility] UyotuywRGMQNHOBO2235-43-80 08:47:002.1[facility] HermannCHEMISTRY 2012-04-24 08:47:53501Wugawfbl FtdmnqaKLDMUPQIH2194-05-04 08:47:003.5[facility] OvmbyreOEUWNGHXE0679-06-59 08:47:20735Vobstsrz EloqrwaROERCVWUI2375-56-06 08:47:002.7[facility] YjbwemiOPVCOQFNA9710-37-74 08:47:001.0[facility] UCAYEYNKT9252-70-03 08:47:000.9[facility] SyyznfuUATEJUDIN8886-01-28 08:47:0012 [facility] OtbqybcWMTBFFNWN8107-05-61 08:47:0060[facility] HermannCHEMISTRY 2012-04-24 08:47:000.5[facility] XxbhuoxYNUIULEVP7424-88-96 08:47:0031[facility] WjybtroZCGCEOWMT3656-65-58 08:47:0093[facility] YbpbxhhSUGWNZIRH3614-77-96 08:47:0014[facility] NdkkdtxQONAKZLEX1966-15-55 08:47:0010.5[facility] BEBOAGUJM8641-30-26 08:47:005.3[facility] NzhecyyURYSJQDHM8309-76-49 08:47:002.6 [facility] JnnordwITCSKBAYT2171-50-34 08:47:007.6[facility] HermannCHEMISTRY 2012-04-24 08:47:0028[facility] YyuluiyUFOTDSZPH8098-81-10 08:47:009[facility] WmbzuxoUVYFTATTE5397-81-91 08:47:0096[facility] JgganebUMBDXWHRUI2464-31-47 08:47:000.4[facility] EhfzajkUQGXMJSDPC4917-30-05 08:47:000.3[facility] SZEHEAQOTJ5592-03-28 08:47:000.0[facility] VysyojwZKSBCNZYTB5288-78-79 08:47:003.3 [facility] OcrvewtBGUNYJMXCQ0495-65-88 08:47:000.2[facility] HermannHEMATOLOGY 2012-04-24 08:47:007.4[facility] LkigkncUQEWTXRBEH4951-72-63 08:47:000.9[facility] MprreawWTUPGCLKSQ9075-52-11 08:47:004.7[facility] BvhhmnzKXCOBAPKCJ3891-44-85 08:47:0010.1[facility] RhhwwlcWINBLBGOMD8481-45-01 08:47:0081.7[facility] EGMEBWVQZL3851-18-71 08:47:009.8[facility] WofzjskREMLZFTMCE6218-53-73 08:47:00 32.4[facility] UfmkppwPQFZIXJAEF2835-68-99 08:47:0015.8[facility] HermannHEMATOLOGY 2012-04-24 08:47:84068Zhailvlc LcaefbgPFQHHCNVUZ1929-32-73 08:47:0029.1[facility] DriocwpLJDHEEAALH1539-63-12 08:47:003.53[facility] ZstzptcEQACSZQAMY2458-01-00 08:47:009.1[facility] NzzchwcTTWNRHDGBP5447-75-65 08:47:009.4[facility] ISPKNCMYUL6747-11-06 08:47:00 Test Item Value Reference Range Interpretation Comments MCH (test code = MCH) 26.7 pg 27.0-31.0 L [facility] OsoqysfJVBECYUZJM0180-28-39 08:47:0082.4[facility] HermannCHEMISTRY 2012-04-23 10:08:002.0[facility] VakplqyWXEFXPCIB2418-08-31 10:08:001.0[facility] WmvejenEIEYNGUYO3077-59-17 10:08:002.8[facility] UgjtkskXSTMLFBJJ1896-22-91 10:08:0026[facility] MzlbbdoOWSBHMZRA9431-11-04 10:08:0013.8[facility] HXNTSISTZ7114-51-16 10:08:0016[facility] BrphgnoVJSTOLHCE4978-52-60 10:08:0070 [facility] TnltequPDJWJLYLA5250-64-68 10:08:005.5[facility] HermannCHEMISTRY 2012-04-23 10:08:002.7[facility] VkmvxggQLKVCZJVI5097-17-33 10:08:000.5[facility] QlslutcRIKMEZXZP6787-54-08 10:08:0010[facility] ZzcbskhWIIOVTDET3344-79-37 10:08:0096[facility] WmhlnlxGAILXOMUU3114-26-75 10:08:0013[facility] RGFNYNXCT0914-48-58 10:08:000.5[facility] PplskirHDBZYYMDX5475-40-16 10:08:33778 [facility] VbnrabyGJRMHWVYN8712-97-27 10:08:003.8[facility] HermannCHEMISTRY 2012-04-23 10:08:42058Spzjgsit PzbuedmLIZCRHUDI3103-94-95 10:08:72283Chkjjfqn VutfrpuOUANJWXDH3954-93-83 10:08:007.4[facility] MbhitrnVCQYGDYLK3580-63-23 10:08:0028[facility] XilawayJCRKYTNKWR7785-32-60 10:08:009.9[facility] WOFGDQBLMZ6471-54-50 10:08:84742Vwubcoew OlitscrYDJZIGJVCD2714-55-84 10:08:00 15.9[facility] QfvzxifPTTBNSANZT7353-29-25 10:08:0032.4[facility] HermannHEMATOLOGY 2012-04-23 10:08:0030.6[facility] IqmelzzYGXOFETHOG3299-37-63 10:08:003.70[facility] XnyytdeDPYRWTRRMB3752-02-37 10:08:0011.2[facility] DbfeumoDRQQTPYDXS5351-60-90 10:08:009.9[facility] MsgrezoOTGEBEYDMF3102-57-42 10:08:0082.7[facility] FVKPTCLHGM7563-75-08 10:08:00 Test Item Value Reference Range Interpretation Comments MCH (test code = MCH) 26.8 pg 27.0-31.0 L [facility] UkyvgteNBRYQJWZXS3695-25-77 10:08:002.0[facility] HermannHEMATOLOGY 2012-04-23 10:08:004.0[facility] BpeoyiiYLTJIOEHHT5179-07-53 10:08:000.1[facility] LlqruavNFQYXZUKKS6085-31-69 10:08:000.0[facility] MoulrckOSAGHINSJS7903-58-23 10:08:000.2[facility] TutaquxUCNWRHTORB0177-06-03 10:08:001.4[facility] XNNIYXVRFX4083-31-50 10:08:009.1[facility] OcdfjorOYJGSCJXCI7334-55-04 10:08:000.5 [facility] ZarccouLTGBIRPVEX6439-61-49 10:08:0081.5[facility] HermannHEMATOLOGY 2012-04-23 10:08:0012.4[facility] VewuahfGSOYCIOVG0480-21-02 10:40:000.4[facility] UjgkkjeICKJUYRZH1185-17-79 10:40:0018[facility] GcxklxkHPETJTAOI2571-38-14 10:40:0062[facility] UbkzxirGJERECNUK0248-64-81 10:40:006.1[facility] TEHNNZGYU2524-60-53 10:40:0014[facility] ZwrvmtqIVRUYIWWY6016-91-69 10:40:002.7 [facility] SacaispNBVCTXUKG1012-58-35 10:40:000.8[facility] HermannCHEMISTRY 2012-04-22 10:40:003.4[facility] TbzlvueLQYCKDLPK1729-74-95 10:40:0014[facility] NqkaeugGVTSTITEDD2060-74-32 18:27:00Occasional /LPF *NA*(04/21/2012 12:27:00) [facility] XcxeljzTBPTPWINMW8486-23-79 18:27:00Moderate *ABN*(04/21/2012 12:27:00) [facility] QaxdgeqHOCRMQOFCI5503-79-88 18:27:006[facility] HermannURINALYSIS 2012-04-21 18:27:0034[facility] HyhnardUVGAUUNBFQ7096-34-66 18:27:00Occasional /HPF *NA*(04/21/2012 12:27:00)[facility] OkxzrtbUYCJWACLGS3920-98-90 18:27:00Few /LPF *NA*(04/21/2012 12:27:00)[facility] AqwcfrwDPVUYRBSER3044-05-51 18:27:00 Occasional /HPF *NA*(04/21/2012 12:27:00)[facility] WytkdueWBOSXIWZPV5716-33-97 18:27:00Negative *NA*(04/21/2012 12:27:00)[facility] EnvxpjyVQAZBGLCLP9444-93-17 18:27:00Moderate *ABN*(04/21/2012 12:27:00)[facility] TcyhmplPTVGQKIVAJ7420-17-84 18:27:00Negative (04/21/2012 12:27:00)[facility] YjixwylBAVXBZMLUZ6391-46-62 18:27:00Negative mg/dL *NA*(04/21/2012 12:27:00)[facility] HermannURINALYSIS 2012-04-21 18:27:0020 mg/dL *ABN*(04/21/2012 12:27:00)[facility] HermannURINALYSIS 2012-04-21 18:27:00Negative mg/dL (04/21/2012 12:27:00)[facility] VJTXVGEFRS3799-19-75 18:27:00Clear (04/21/2012 12:27:00)[facility] KQWFJZZSAG8214-11-89 18:27:005.0[facility] GypmleoDQCDYSEGPQ9712-42-49 18:27:00 1.011[facility] VwyzzciCOKAEAYPS3647-07-25 09:55:002.8[facility]annCHEMISTRY 2012-04-21 09:55:001.8[facility] UufoksuBFJBTPOEW2720-32-31 00:11:002.9[facility] AmvuoibGBHVCYSKBA4954-12-02 00:11:00Normal (04/20/2012 18:11:00)[facility] FMZIYXWKNN1480-14-92 00:11:00Normal (04/20/2012 18:11:00)[facility] BACTERIAL - DRWVIPNG5611-53-10 22:00:00Negative 1(04/20/2012 16:00:00)[facility] UnnvfxgZDQWFBFTA8938-57-76 10:47:57929Iiumjqri YvmbwinETJUUKYXY4096-09-90 10:47:77190Zkhgnmdi BewcwjgCNRGEVUSJ4951-42-98 10:47:87895Ncivvtlb [facility] UNMERKKIH5789-10-58 10:47:0036[facility] XucpaqrDUSKNAPUP5993-43-84 10:47:005.86 [facility] HpifpleYOFREQMQF6449-31-57 10:45:000.631[facility]annCHEMISTRY 2012-04-19 10:45:003.2[facility] TijdpuwXTXAKFEYAK2532-41-21 10:45:00 Test Item Value Reference Range Interpretation Comments PTT (test code = PTT) 35.0 s 22.9-35.8 N [facility] YworjftKPJJVGJCHJ3165-72-86 10:45:00 Test Item Value Reference Range Interpretation Comments PT (test code = PT) 14.0 s 12.0-14.7 N [facility] GsodoxwTTNULBSSKH1637-81-17 10:45:001.06[facility]annCHEMISTRY 2012-04-19 03:05:0086[facility] TmcvlpyVMDSFUOOX2274-70-06 03:05:13638Ksrybbrp UpjpxqvIPYYJMYGY8543-88-67 03:05:000.9[facility] IefedjwCRAIDFYPO1643-87-20 03:05:00<0.02[facility] SwcgkiyHKFJOFEMV8309-77-60 03:05:000.7[facility] [place] RRBIEBQJFU8462-08-60 03:05:000.95[facility] DvqwambEFNATYBXUP1700-84-09 03:05:00 Test Item Value Reference Range Interpretation Comments PTT (test code = PTT) 34.0 s 22.9-35.8 N [facility] JaiyjjnNGNBKPQJMP3699-46-83 03:05:00 Test Item Value Reference Range Interpretation Comments PT (test code = PT) 12.9 s 12.0-14.7 N [facility] DrecyhfXMFKCEYYUH2262-28-19 03:05:00Normal (04/18/2012 21:05:00) [facility] YfbboyaHTUNLTRKFG6058-57-27 03:05:00Normal (04/18/2012 21:05:00) [facility] FujurmhUINXIZDLFS4806-19-29 03:05:00Negative (04/18/2012 21:05:00) [facility] BrqvvfkGTPZJRHXGA5604-26-43 03:05:00Negative (04/18/2012 21:05:00) [facility] VeftjtyIFZEZFKVYY8795-74-80 03:05:00Negative *NA*(04/18/2012 21:05:00) [facility] GxgtcdwXVXUZKENVN8337-68-48 03:05:003[facility] HermannURINALYSIS 2012-04-19 03:05:00Occasional /LPF *NA*(04/18/2012 21:05:00)[facility] AQOZLVKMHX8106-48-14 03:05:00Occasional /HPF *NA*(04/18/2012 21:05:00)[facility] UhthervYONSDXDXHF1445-00-62 03:05:00<1[facility] FgtqgmiDESJCKOBTN1131-49-95 03:05:008.0[facility] MnurboaMWDKRELJOW3554-50-95 03:05:00Small *ABN*(04/18/2012 21:05:00)[facility] YfjeelnJMWXXYFNBO3227-68-23 03:05:00Negative mg/dL *NA*(04/18/2012 21:05:00)[facility] YgkrgjfCCPMIAXNIZ1004-45-99 03:05:00Negative mg/dL *NA*(04/18/2012 21:05:00)[facility] GbgqtfkKINOLJKOUY7707-79-76 03:05:00 Negative mg/dL (04/18/2012 21:05:00)[facility] AmnnfldEMKBVFFMEZ9267-16-49 03:05:00Clear (04/18/2012 21:05:00)[facility] EezqhkrNDVWZRPXNQ8655-44-58 03:05:00 1.003[facility]
--- OUTSIDE RECORDS SUMMARY | 2020-03-16 16:41 | XMS REPORT ---
:1940 Author Organization Formerly [facility] Address [address] [place], [address] [place] [address] Care Team Providers Name Role Phone Tripp Unavailable [phone] PROBLEMS Type Condition ICD9-CM [id number] Onset Condition SNOMED Code Notes Code Code Dates Status Problem Vitamin D E55.9 Active 36159380 deficiency Problem Diabetes E11.9 Active 880627973 Problem Vitamin B12 E53.8 Active 798939583 deficiency Problem Depression with F41.8 Active 387239026 anxiety Problem Hypertension I10 Active 02415536 Problem Glaucoma H40.9 Active 97844017 Problem PAD (peripheral I73.9 Active 248705194 artery disease) Problem Hair loss L65.9 Active 034387579 Problem Cataract H26.9 Active 507660938 Problem Calcaneal spur, M77.32 Active 721600431039165 left Problem Claudication I73.9 Active 97364361 Problem GERD K21.9 Active 936941019 (gastroesophageal reflux disease) Problem 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 049516913 joint disease) Problem Hammer toe M20.40 Active 222826162 Problem Carotid artery I65.29 Active 350136673 occlusion Problem Ulcer L98.499 Active 672211032 Problem 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 91814482 lumbosacral intervertebral disc Problem Anemia, blood D50.0 Active 888431779 loss Problem Controlled type 2 E11.51 Active 473882994 diabetes mellitus with diabetic peripheral angiopathy without gangrene, without long-term current use of insulin Problem 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 Active 066198104230259 Problem Pain of left foot M79.672 Active 43512736 Problem Type 2 diabetes E11.29 Active 308002298 mellitus with other diabetic kidney complication Problem Hypertensive I16.0 Active 557838403 urgency Problem Skin ulcer of L97.521 Active 67861324 left foot, limited to breakdown of skin Problem Allergic J30.2 Active 832072679 rhinitis, seasonal Problem Stress and F43.29 Active 174906241 adjustment reaction Problem Pain R52 Active 04114880 Problem Hyperlipidemia, E78.2 Active 457563760 mixed Problem Seasonal J30.2 Active 834913114 allergies Problem Onychomycosis B35.1 Active 152867906 Problem Osteoporosis M81.0 Active 596370014 without current pathological fracture, unspecified osteoporosis type Problem Dermatitis of L30.9 Active 261870246 left foot ALLERGIES Allergen (clinical drug Drug/Non Drug Allergy Reaction Allergy Type Onset Date Status ingredient) documented on EMR Levaquin Unknown Drug Allergy Active metformin Metformin HCl([facility] Unknown Drug Allergy Activ e Code:[address]-68) ENCOUNTERS from 1940 to 2020-02-28 Encounter Location Date Provider Diagnosis [facility] [address] [facility] [address] Feb, 2020 [place] [address] IMMUNIZATIONS No Information SOCIAL HISTORY Tobacco Use: Social History Observation Description Date Details (start date - stop date) Never Smoker Sex Assigned At : Social History Observation Description Sex Assigned At Unknown PHQ9 Question Answer Notes Little interest or pleasure in doing things Several days Feeling down, depressed, or hopeless Several days Trouble falling or staying asleep or sleeping too much Not a t all Feeling tired or having little energy Several days Poor appetite or overeating Not at all Feeling bad about yourself, or that you are a failure, Not a t all or have let yourself or your family down Trouble concentrating on things, such as reading the Not at all newspaper or watching television Moving or speaking so slowly that other people could More th an half the days have noticed; or the opposite, being so fidgety or restless that you have been moving around a lot more than usual Total Score 5 Interpretation Mild Depression Thoughts that you would be better off or of Not at all hurting yourself in some way Tobacco Use/Smoking Question Answer Notes Are you a never smoker REASON FOR REFERRAL No Information VITAL SIGNS No information MEDICATIONS Medication SIG (Take, Route, Notes Start Date End Date Status Frequency, Duration) Cetirizine HCl 10MG TAKE ONE TABLET BY Active MOUTH ONCE DAILY Potassium Chloride Mey ER 10 TAKE ONE TABLET BY Active MEQ MOUTH TWICE DAILY Pantoprazole Sodium 40 MG 1 tablet Orally Once Active a day for 90 day(s) Citalopram Hydrobromide 20 MG take one tablet by Active mouth once daily Orally Once a day for 90 days Benzonatate 200 MG 1 capsule Orally Active Three times a day PRN COUGh for 10 Benzonatate 100 MG 1 capsule as needed Active Orally two times a day for 15 Losartan Potassium 100 MG 1 tablet Orally Once Active a day for 90 days GlipiZIDE 5 MG Take 1 tablet by Acti ve mouth once daily for 90 Aspir-81 81 MG 1 tablet Orally Once Active a day Metformin HCl 500 MG 1 tablet with a meal Active Orally Once a day for 90 days Klor-Con M10 10 MEQ 1 tablet with food Active Orally Twice a day for 30 day(s) Metoprolol Tartrate 50 MG 1 tablet with food Active Orally Twice a day for 90 days Ketoconazole 2 % 1 application to Ac tive affected area Externally twice a day for 30 days Alendronate Sodium 70 MG 1 tablet Orally once Active a week for 84 days Flonase 50 MCG/ACT 1 spray in each Sep, Active nostril Nasally Once a day for 30 day(s) Triamcinolone Acetonide 0.1 % 1 application to Active affected area Externally Twice a day for 30 days GlipiZIDE 5 1 tablet Orally Once Act josy a day for 90 days Albuterol Sulfate HFA 108 (90 INHALE TWO PUFFS BY Active Base) MCG/ACT MOUTH 4 TIMES DAILY for 25 Hydrochlorothiazide 25 MG TAKE 1 TABLET BY Active MOUTH ONCE DAILY for 90 days Atorvastatin Calcium 20MG 1 tablet at bedtime Active Orally Once a day for 90 days Plavix 75 MG 1 tablet Orally Once Ac tive a day for 90 days Pantoprazole Sodium 40 MG 1 tablet Orally Once Oct, 0 Active a day for 90 day(s) Pentoxifylline ER 400 MG 1 tablet with meals Active Orally three times a day PROCEDURES No Information RESULTS No Results REASON FOR VISIT Sick/Coughing MEDICAL (GENERAL) HISTORY Type Description Date Medical History Hypertension Medical History Diabetes Medical History Hyperlipidemia, mixed Medical History Depression with anxiety Medical History 3-vessel CAD Medical History Glaucoma Medical History Vitamin B12 deficiency Medical History Anemia, blood loss Medical History Carotid artery occlusion Medical History Claudication Medical History Cataract Medical History Allergic rhinitis, seasonal Medical History Vitamin D deficiency Medical History Pain Medical History Degeneration of lumbosacral intervertebr al disc Medical History DJD (degenerative joint disease) Medical History Ulcer Medical History Hammer toe Medical History GERD (gastroesophageal reflux disease) Surgical History CABG Surgical History Carotid Vessel Surgery- Bilateral Surgical History Cataracts Surgery Surgical History Rotator Cuff Goals Section No Information Health Concerns No Information MEDICAL EQUIPMENT No Information MENTAL STATUS No Information FUNCTIONAL STATUS No Information ASSESSMENTS No Information PLAN OF TREATMENT Next Appt Details Provider Name:[place] Tripp, 2020-03-04 08:0 0:00 AM, [address] [place], [address], [place], [address], Insurance Providers Payer Name Payer Payer Insured Patient Coverage Coverage End Address Phone Name Relationship to Start Date Akil e Insured [facility] [phone] Juan Haskins self [address] [facility] [id number] [facility] [address] [place] [address]
--- OUTSIDE RECORDS SUMMARY | 2020-03-16 16:41 | XMS REPORT ---
:1940 Author Organization [facility] Address [address] [place], [address] [place] [address] Care Team Providers Name Role Phone Tripp Unavailable [phone] PROBLEMS Type Condition ICD9-CM [id number] Onset Condition SNOMED Code Notes Code Code Dates Status Problem Vitamin D E55.9 Active 66297550 deficiency Problem Diabetes E11.9 Active 968916078 Problem Vitamin B12 E53.8 Active 563271038 deficiency Problem Depression with F41.8 Active 940146851 anxiety Problem Hypertension I10 Active 28178971 Problem Glaucoma H40.9 Active 46481229 Problem PAD (peripheral I73.9 Active 253528246 artery disease) Problem Hair loss L65.9 Active 093346575 Problem Cataract H26.9 Active 595744933 Problem Calcaneal spur, M77.32 Active 753191151494357 left Problem Claudication I73.9 Active 02605956 Problem GERD K21.9 Active 209876412 (gastroesophageal reflux disease) Problem 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 954358055 joint disease) Problem Hammer toe M20.40 Active 027479680 Problem Carotid artery I65.29 Active 236699632 occlusion Problem Ulcer L98.499 Active 039551509 Problem 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 20444254 lumbosacral intervertebral disc Problem Anemia, blood D50.0 Active 747838974 loss Problem Controlled type 2 E11.51 Active 701541510 diabetes mellitus with diabetic peripheral angiopathy without gangrene, without long-term current use of insulin Problem 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 Active 450358544080610 Problem Pain of left foot M79.672 Active 45530760 Problem Type 2 diabetes E11.29 Active 351362382 mellitus with other diabetic kidney complication Problem Hypertensive I16.0 Active 109413799 urgency Problem Skin ulcer of L97.521 Active 18633998 left foot, limited to breakdown of skin Problem Allergic J30.2 Active 118922388 rhinitis, seasonal Problem Stress and F43.29 Active 436621243 adjustment reaction Problem Pain R52 Active 87856334 Problem Hyperlipidemia, E78.2 Active 567949314 mixed Problem Seasonal J30.2 Active 762174500 allergies Problem Onychomycosis B35.1 Active 932313003 Problem Osteoporosis M81.0 Active 534431243 without current pathological fracture, unspecified osteoporosis type Problem Dermatitis of L30.9 Active 793107497 left foot ALLERGIES Allergen (clinical drug Drug/Non Drug Allergy Reaction Allergy Type Onset Date Status ingredient) documented on EMR Levaquin Unknown Drug Allergy Active metformin Metformin HCl([facility] Unknown Drug Allergy Activ e Code:[address]-43) ENCOUNTERS from 1940 to 2020-03-02 Encounter Location Date Provider Diagnosis [address] [facility] [address], [place] Tripp COVID-19 U07.1 [place] [address] IMMUNIZATIONS No Information SOCIAL HISTORY Tobacco Use: [...] Information RESULTS No Results REASON FOR VISIT Covid Test - Positive MEDICAL (GENERAL) HISTORY Type Description Date Medical [...] No Information FUNCTIONAL STATUS No Information ASSESSMENTS Encounter Date Diagnosis Assessment Notes Treatment Notes Treatm ent Clinical Notes Feb, COVID-19 (ICD-10 - U07.1) PLAN OF TREATMENT Next Appt Details Provider Name:[place] Tripp, 2020-03-04 08:0 0:00 AM, [address], [address], [place], [address], Insurance Providers Payer Name Payer Payer Insured Patient Coverage Coverage End Address Phone Name Relationship to Start Date Akil e Insured [facility] [phone] [place]uror self [id number] [place] [address]
--- OUTSIDE RECORDS SUMMARY | 2020-03-16 16:41 | XMS REPORT ---
:1940 Author Organization [facility] Address [address] [place], [address] [place] [address] Care Team Providers Name Role Phone Tripp Unavailable [phone] PROBLEMS Type Condition ICD9-CM [id number] Onset Condition W/U Status Risk SNOM ED Notes Code Code Dates Status Code Problem Vitamin B12 E53.8 Active confirmed 70775268 4 deficiency Problem Hypertension I10 Active confirmed 6362825 3 Problem Diabetes E11.9 Active confirmed 954217758 Problem PAD I73.9 Active confirmed 581251040 (peripheral artery disease) Problem Depression F41.8 Active confirmed 960482028 with anxiety Problem Pain R52 Active confirmed 71144661 Problem Glaucoma H40.9 Active confirmed 38577168 Problem Pain of left M79.672 Active confirmed 298472 02 foot Problem GERD K21.9 Active confirmed 042666887 (gastroesopha geal reflux disease) Problem Hair loss L65.9 Active confirmed 479325195 Problem Cataract H26.9 Active confirmed 779218172 Problem Vitamin D E55.9 Active confirmed 82919014 deficiency Problem Claudication I73.9 Active confirmed 1266688 6 Problem Ulcer L98.499 Active confirmed 191836143 Problem DJD M19.90 Active confirmed 104249511 (degenerative joint disease) Problem Anemia, blood D50.0 Active confirmed 545680 003 loss Problem Carotid I65.29 Active confirmed 350646667 artery occlusion Problem 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 Active confirmed 3488697 001 80158 Problem Degeneration M51.37 Active confirmed 7312907 0 of lumbosacral intervertebra l disc Problem Calcaneal M77.32 Active confirmed 6341612328 spur, left 96706 Problem Controlled E11.51 Active confirmed 510384367 type 2 diabetes mellitus with diabetic peripheral angiopathy without gangrene, without long-term current use of insulin Problem Type 2 E11.29 Active confirmed 530962071 diabetes mellitus with other diabetic kidney complication Problem Hypertensive I16.0 Active confirmed 7614479 00 urgency Problem Seasonal J30.2 Active confirmed 084593774 allergies Problem Stress and F43.29 Active confirmed 435335574 adjustment reaction Problem Hyperlipidemi E78.2 Active confirmed 901866 003 a, mixed Problem Encounter for Z20.822 Active confirmed 69001 8001 screening laboratory testing for COVID-19 virus in asymptomatic patient Problem Allergic J30.2 Active confirmed 840870518 rhinitis, seasonal Problem Hammer toe M20.40 Active confirmed 846256073 Problem Onychomycosis B35.1 Active confirmed 576965 008 Problem Osteoporosis M81.0 Active confirmed 8496242 02 without current pathological fracture, unspecified osteoporosis type Problem Dermatitis of L30.9 Active confirmed 752912 007 left foot Problem Skin ulcer of L97.521 Active confirmed 54700 008 left foot, limited to breakdown of skin ALLERGIES Allergen (clinical drug Drug/Non Drug Allergy Reaction Allergy Type Onset Date Status ingredient) documented on EMR Levaquin Unknown Drug Allergy Active metformin Metformin HCl([facility] Unknown Drug Allergy Activ e Code:[address]-55) ENCOUNTERS from 1940 to 2020-03-15 Encounter Location Date Provider Diagnosis [address] [place], [place] Tripp COV ID-19 [id number] ; Family Medicine [address], [place] [address] specified as a cute or chronic J40 ; T ype 2 diabetes mellit us with other diabetic kidney complication E1 1.29 ; Hypertension I1 0 ; Hyperlipidemia, mixed E78.2 ; Depress ion with anxiety F41.8 a nd Seasonal allerg ies J30.2 IMMUNIZATIONS No Information SOCIAL HISTORY Tobacco Use: [...] Start Date End Date Status Frequency, Duration) Pantoprazole Sodium 40 MG 1 tablet Orally Once Oct, 0 Active a day for 90 day(s) Pantoprazole Sodium 40 MG 1 tablet Orally Once Active a day for 90 day(s) Alendronate Sodium 70 MG 1 tablet Orally once Active a week for 84 days Aspir-81 81 MG 1 tablet Orally Once Active a day Benzonatate 100 MG 1 capsule as needed Active Orally two times a day for 15 GlipiZIDE 5 1 tablet Orally Once Act josy a day for 90 days GlipiZIDE 5 MG Take 1 tablet by Acti ve mouth once daily for 90 Hydrochlorothiazide 25 MG TAKE 1 TABLET BY Active MOUTH ONCE DAILY for 90 days Potassium Chloride Mey ER 10 TAKE ONE TABLET BY Active MEQ MOUTH TWICE DAILY Atorvastatin Calcium 20MG 1 tablet at bedtime Active Orally Once a day for 90 days Citalopram Hydrobromide 20 MG take one tablet by Active mouth once daily Orally Once a day for 90 days Cetirizine HCl 10MG TAKE ONE TABLET BY Active MOUTH ONCE DAILY Triamcinolone Acetonide 0.1 % 1 application to Active affected area Externally Twice a day for 30 days Plavix 75 MG 1 tablet Orally Once Ac tive a day for 90 Losartan Potassium 100 MG 1 tablet Orally Once Active a day for 90 days Albuterol Sulfate HFA 108 (90 INHALE TWO PUFFS BY Active Base) MCG/ACT MOUTH 4 TIMES DAILY for 25 Pentoxifylline ER 400 MG 1 tablet with meals Active Orally three times a day Metformin HCl 500 MG 1 tablet with a meal Active Orally Once a day for 90 days Ketoconazole 2 % 1 application to Ac tive affected area Externally twice a day for 30 days Flonase 50 MCG/ACT 1 spray in each Sep, Active nostril Nasally Once a day for 30 day(s) Klor-Con M10 10 MEQ 1 tablet with food Active Orally Twice a day for 30 day(s) Metoprolol Tartrate 50 MG 1 tablet with food Active Orally Twice a day for 90 days Albuterol Sulfate HFA 108 (90 2 puffs Inhalation Feb, 021 Active Base) MCG/ACT every 6 hours prn sob for 30 days Benzonatate 200 MG 1 capsule Orally Active Three times a day PRN COUGh for 10 PROCEDURES No Information RESULTS No Results REASON FOR VISIT follow up , covid positive /cough, Dm2, htn, hld, asthma allergies MEDICAL (GENERAL) HISTORY Type Description Date Medical [...] ent Clinical Notes Feb, COVID-19 (ICD-10 - positive covid U07.1) test 02/28/2020 declined steroids due to diabetes elev BG get plenty of rest, vitamin C, D 3, zinc to help boost your immune system. As you are getting better, your immune systems has cleared the virus , and the rest is your body healing. Treat your symptoms or any fever with otc medications as directed. Get plenty of rest and stay well hydrated with fluids.__ recommend to monitor temperature control with tylenol fever is anything above 100.4 F, monitor your oxygen saturation with a pulse oximeter call clinic or go to ER if oxygen less than 90 %get plenty of rest, vitamin C, D 3, zinc to help boost your immune system. As you are getting better, your immune systems has cleared the virus , and the rest is your body healing. Treat your symptoms or any fever with otc medications as directed. Get plenty of rest and stay well hydrated with fluids.-- recommend to monitor temperature control with tyelnol fever is anything above 100.4 F, monitor your oxygen saturation with a pulse oximeter call clinic or go to ER if oxygen less than 90 %discussed sometimes testing may be too early and may result in false negatives so need to be symptoms free and quarantine until results negative and symptom free for at least 72 hours or quarantine for 14 days to be safe. Feb, Bronchitis, not use albuterol specified as acute inhaler as needed. or chronic (ICD-10 - J40) Feb, Type 2 diabetes A1C 7.3 low carb mellitus with 1800 ADA diet. other diabetic Avoid sodas, kidney juices and complication remember portion (ICD-10 - E11.29) control. Take your medication as prescribed. Monitor your blood sugar at home as directed and keep a log to bring back with you to your next visit for review. Schedule your annual diabetic eye exam with your eye doctor to screen for diabetic retinopathy. Check your feet daily to make sure you have no open wounds. Feb, Hypertension Elevated in office (ICD-10 - I10) likely due to white coat syndrome. Maintian a low salt DASH diet, exercise, weight loss and decrease stress recommended. Keep BP log and will review next visit. If blood pressure consistently above 140/90 return to clinic for adjustment of meds. Try to quit smoking if you currently smoke. Decrease caffeine intake if possible. Feb, Hyperlipidemia, low fat diet, mixed (ICD-10 - decrease fast food E78.2) and fried foods. Increase fruit and vegetable intake. exercise as tolerated 30minutes per day at least 3 days a week. May take fish oil 1000mg twice daily to help increase good cholesterol (HDL). Feb, Depression with increase anxiety (ICD-10 - F41.8) Feb, Seasonal allergies Allergies- avoid (ICD-10 - J30.2) triggers. Use zyrtec or claritin otc once daily in AM to help control watery itchy eyes and runny nose. Use Flonase nasal spray two sprays once a day to help decrease inflammation and decrease nasal drainage/post nasal drip. Use saline nasal mist or irrigation as directed. Feb, Other Total time spen t by provider del jackson this telephone visit was 15 minutes. Also, time was spent counseling and coordinating ca re including but n ot limited to discussion of t est results, diagnostic or treatment recommendations , prognosis, risk s and benefits of management options, instructions, education, compliance and or risk reduction. PLAN OF TREATMENT Medication Medication Name Sig Start Date Stop Date Cetirizine HCl 10MG TAKE ONE TABLET BY MOUTH ONCE DAILY Metoprolol Tartrate 50 MG 1 tablet with food Orally Twice a day for 90 days Citalopram Hydrobromide 20 MG take one tablet by mouth once daily Orally Once a day for 90 days Atorvastatin Calcium 20MG 1 tablet at bedtime Orally Once a day for 90 days Plavix 75 MG 1 tablet Orally Once a day for 90 GlipiZIDE 5 1 tablet Orally Once a day for 90 days Losartan Potassium 100 MG 1 tablet Orally Once a day for 90 days Hydrochlorothiazide 25 MG TAKE 1 TABLET BY MOUTH ONCE DAILY for 90 days Metformin HCl 500 MG 1 tablet with a meal Orally Once a day for 90 days Albuterol Sulfate HFA 108 (90 Base) 2 puffs Inhalation every 6 2 Feb, MCG/ACT hours prn sob for 30 days Treatment Notes Assessment Notes Clinical Notes COVID-19 positive covid test 02/28/2020eclined steroids due to diabetes elev BGget plenty of rest, vitamin C, D 3, zinc to help boost your immune system. As you are getting better, your immune systems has cleared the virus , and the rest is your body healing. Treat your symptoms or any fever with otc medications as directed. Get plenty of rest and stay well hydrated with fluids.__ recommend to monitor temperature control with tylenol fever is anything above 100.4 F, monitor your oxygen saturation with a pulse oximeter call clinic or go to ER if oxygen less than 90 %get plenty of rest, vitamin C, D 3, zinc to help boost your immune system. As you are getting better, your immune systems has cleared the virus , and the rest is your body healing. Treat your symptoms or any fever with otc medications as directed. Get plenty of rest and stay well hydrated with fluids.-- recommend to monitor temperature control with tyelnol fever is anything above 100.4 F, monitor your oxygen saturation with a pulse oximeter call clinic or go to ER if oxygen less than 90 %discussed sometimes testing may be too early and may result in false negatives so need to be symptoms free and quarantine until results negative and symptom free for at least 72 hours or quarantine for 14 days to be safe. Bronchitis, not specified as acute use albuterol inhaler as needed. or chronic Type 2 diabetes mellitus with other A1C 7.3 low carb 1800 AD A diet. diabetic kidney complication Avoid sodas, juices and remembe r portion control. Take your medication as prescribed. Monitor your blood sugar at home as directed and keep a log to bring back with you to your next visit for review. Schedule your annual diabetic eye exam with your eye doctor to screen for diabetic retinopathy. Check your feet daily to make sure you have no open wounds. Hypertension Elevated in office likely due to white coat syndrome. Maintian a low salt DASH diet, exercise, weight loss and decrease stress recommended. Keep BP log and will review next visit. If blood pressure consistently above 140/90 return to clinic for adjustment of meds. Try to quit smoking if you currently smoke. Decrease caffeine intake if possible. Hyperlipidemia, mixed low fat diet, decrease fast food and fried foods. Increase fruit and vegetable intake. exercise as tolerated 30minutes per day at least 3 days a week. May take fish oil 1000mg twice daily to help increase good cholesterol (HDL). Depression with anxiety increase Seasonal allergies Allergies- avoid triggers. Use zyrtec or claritin otc once daily in AM to help control watery itchy eyes and runny nose. Use Flonase nasal spray two sprays once a day to help decrease inflammation and decrease nasal drainage/post nasal drip. Use saline nasal mist or irrigation as directed. Treatment Notes Test Name Order Date Lipid Panel w/ Chol/HDL Ratio 2020-03-05 Microalbumin/Creat Ratio, Random Ur 2020-03-05 Hemoglobin A1c 2020-03-05 Comp. Metabolic Panel (14) (CMP) 2020-03-05 CBC With Differential/Platelet 2020-03-05 Next Appt Details 1M labs 1 week prior Reason: Provider Name:[place] Tripp, 2020-03-30 10:0 0:00 AM, [address] [place], [address], [place], [address], Provider Name:[place] Tripp 2020-04-06 03:0 0:00 PM, [address] [place], [address], [place], [address], Insurance Providers Payer Name Payer Payer Insured Patient Coverage Coverage End Address Phone Name Relationship to Start Date Akil e Insured [facility] [phone] Juan Haskins self [address] [facility] [id number] [address] [place] [address]
--- OUTSIDE RECORDS SUMMARY | 2020-03-16 16:41 | XMS REPORT ---
:1940 Author Organization [facility] Address [address] [place], [address] [place] [address] Care Team Providers Name Role Phone Tripp Unavailable [phone] PROBLEMS Type Condition ICD9-CM [id number] Onset Condition SNOMED Code Notes Code Code Dates Status Problem Vitamin D E55.9 Active 16867871 deficiency Problem Diabetes E11.9 Active 529247185 Problem Vitamin B12 E53.8 Active 503104597 deficiency Problem Depression with F41.8 Active 541470764 anxiety Problem Hypertension I10 Active 27250126 Problem Glaucoma H40.9 Active 97920153 Problem PAD (peripheral I73.9 Active 090522123 artery disease) Problem Hair loss L65.9 Active 743276645 Problem Cataract H26.9 Active 640045089 Problem Calcaneal spur, M77.32 Active 479372851086523 left Problem Claudication I73.9 Active 55907635 Problem GERD K21.9 Active 938425123 (gastroesophageal reflux disease) Problem 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 540602801 joint disease) Problem Hammer toe M20.40 Active 833470982 Problem Carotid artery I65.29 Active 982510646 occlusion Problem Ulcer L98.499 Active 862996755 Problem 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 57872034 lumbosacral intervertebral disc Problem Anemia, blood D50.0 Active 895887601 loss Problem Controlled type 2 E11.51 Active 931103715 diabetes mellitus with diabetic peripheral angiopathy without gangrene, without long-term current use of insulin Problem 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 Active 496530012729706 Problem Pain of left foot M79.672 Active 41172442 Problem Type 2 diabetes E11.29 Active 468255462 mellitus with other diabetic kidney complication Problem Hypertensive I16.0 Active 111644734 urgency Problem Skin ulcer of L97.521 Active 83336466 left foot, limited to breakdown of skin Problem Allergic J30.2 Active 460077371 rhinitis, seasonal Problem Stress and F43.29 Active 837055426 adjustment reaction Problem Pain R52 Active 14646385 Problem Hyperlipidemia, E78.2 Active 493840665 mixed Problem Seasonal J30.2 Active 258471239 allergies Problem Onychomycosis B35.1 Active 117260427 Problem Osteoporosis M81.0 Active 780400894 without current pathological fracture, unspecified osteoporosis type Problem Dermatitis of L30.9 Active 517774610 left foot ALLERGIES Allergen (clinical drug Drug/Non Drug Allergy Reaction Allergy Type Onset Date Status ingredient) documented on EMR Levaquin Unknown Drug Allergy Active metformin Metformin HCl([facility] Unknown Drug Allergy Activ e Code:[address]-81) ENCOUNTERS from 1940 to 2020-03-05 Encounter Location Date Provider Diagnosis [facility] [address] [facility] [address], [place] [address] IMMUNIZATIONS No Information SOCIAL HISTORY Tobacco Use: [...] Start Date End Date Status Frequency, Duration) Azithromycin 250 MG 2 tablets on the Feb, Feb, Active first day, then 1 tablet daily for 4 days Orally Once a day for 5 day(s) Aspir-81 81 MG 1 tablet Orally Activ e Once a day Losartan Potassium 100 MG 1 tablet Orally Active Once a day for 90 days Pentoxifylline ER 400 MG 1 tablet with meals Active Orally three times a day GlipiZIDE 5 1 tablet Orally Active Once a day for 90 days Metformin HCl 500 MG 1 tablet with a Active meal Orally Once a day for 90 days Plavix 75 MG 1 tablet Orally Active Once a day for 90 days Triamcinolone Acetonide 0.1 1 application to Active % affected area Externally Twice a day for 30 days Metoprolol Tartrate 50 MG 1 tablet with food Active Orally Twice a day for 90 days Pantoprazole Sodium 40 MG 1 tablet Orally Active Once a day for 90 day(s) Benzonatate 100 MG 1 capsule as needed Active Orally two times a day for 15 Citalopram Hydrobromide 20 take one tablet by Active MG mouth once daily Orally Once a day for 90 days Benzonatate 200 MG 1 capsule Orally Active Three times a day PRN COUGh for 10 Flonase 50 MCG/ACT 1 spray in each Sep, Active nostril Nasally Once a day for 30 day(s) Atorvastatin Calcium 20MG 1 tablet at bedtime Active Orally Once a day for 90 days Ketoconazole 2 % 1 application to Ac tive affected area Externally twice a day for 30 days Pantoprazole Sodium 40 MG 1 tablet Orally Oct, Active Once a day for 90 day(s) Potassium Chloride Mey ER TAKE ONE TABLET BY Active 10 MEQ MOUTH TWICE DAILY Hydrochlorothiazide 25 MG TAKE 1 TABLET BY Active MOUTH ONCE DAILY for 90 days Klor-Con M10 10 MEQ 1 tablet with food Active Orally Twice a day for 30 day(s) GlipiZIDE 5 MG Take 1 tablet by Acti ve mouth once daily for 90 Albuterol Sulfate HFA 108 INHALE TWO PUFFS BY Active (90 Base) MCG/ACT MOUTH 4 TIMES DAILY for 25 Alendronate Sodium 70 MG 1 tablet Orally Active once a week for 84 days Albuterol Sulfate HFA 108 2 puffs Inhalation Feb, Active (90 Base) MCG/ACT every 6 hours prn sob for 30 days Cetirizine HCl 10MG TAKE ONE TABLET BY Active MOUTH ONCE DAILY PROCEDURES No Information RESULTS No Results REASON FOR VISIT covid vaccine list MEDICAL (GENERAL) HISTORY Type Description Date Medical [...] Information ASSESSMENTS No Information PLAN OF TREATMENT Medication Medication Name Sig Start Date Stop Date Albuterol Sulfate HFA 108 (90 2 puffs Inhalation every Feb, 2 021 Base) MCG/ACT 6 hours prn sob for 30 days Cetirizine HCl 10MG TAKE ONE TABLET BY MOUTH ONCE DAILY Atorvastatin Calcium 20MG 1 tablet at bedtime Orally Once a day for 90 days Metoprolol Tartrate 50 MG 1 tablet with food Orally Twice a day for 90 days GlipiZIDE 5 1 tablet Orally Once a day for 90 days Metformin HCl 500 MG 1 tablet with a meal Orally Once a day for 90 days Hydrochlorothiazide 25 MG TAKE 1 TABLET BY MOUTH ONCE DAILY for 90 days Citalopram Hydrobromide 20 MG take one tablet by mouth once daily Orally Once a day for 90 days Azithromycin 250 MG 2 tablets on the first Feb,2020 day, then 1 tablet daily for 4 days Orally Once a day for 5 day(s) Losartan Potassium 100 MG 1 tablet Orally Once a day for 90 days Next Appt Details Provider Name:[place] Tripp, 2020-03-30 10:0 0:00 AM, [address], [address], [place], [address], Provider Name:[place] Tripp, 2020-04-06 03:0 0:00 PM, [address], [address], [place], [address], Insurance Providers Payer Name Payer Payer Insured Patient Coverage Coverage End Address Phone Name Relationship to Start Date Akil e Insured [phone] Juan [address]askins [id number] [facility] [address] [place] [address]
--- OUTSIDE RECORDS SUMMARY | 2020-03-16 16:41 | XMS REPORT ---
:1940 Author Organization [facility] Address [address] [place], [address] [place] [address] Care Team Providers Name Role Phone Tripp Unavailable [phone] PROBLEMS Type Condition ICD9-CM [id number] Onset Condition SNOMED Code Notes Code Code Dates Status Problem Vitamin D E55.9 Active 31331821 deficiency Problem Diabetes E11.9 Active 507822741 Problem Vitamin B12 E53.8 Active 465191104 deficiency Problem Depression with F41.8 Active 025891829 anxiety Problem Hypertension I10 Active 16435517 Problem Glaucoma H40.9 Active 67051903 Problem PAD (peripheral I73.9 Active 695257597 artery disease) Problem Hair loss L65.9 Active 628458205 Problem Cataract H26.9 Active 053483557 Problem Calcaneal spur, M77.32 Active 117224610585586 left Problem Claudication I73.9 Active 07554056 Problem GERD K21.9 Active 951252112 (gastroesophageal reflux disease) Problem 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 153377691 joint disease) Problem Hammer toe M20.40 Active 411891479 Problem Carotid artery I65.29 Active 703284900 occlusion Problem Ulcer L98.499 Active 134187529 Problem 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 03764122 lumbosacral intervertebral disc Problem Anemia, blood D50.0 Active 916017931 loss Problem Controlled type 2 E11.51 Active 655060273 diabetes mellitus with diabetic peripheral angiopathy without gangrene, without long-term current use of insulin Problem 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 Active 245394011994218 Problem Pain of left foot M79.672 Active 10058514 Problem Type 2 diabetes E11.29 Active 920288775 mellitus with other diabetic kidney complication Problem Hypertensive I16.0 Active 909059522 urgency Problem Skin ulcer of L97.521 Active 77255625 left foot, limited to breakdown of skin Problem Allergic J30.2 Active 345551576 rhinitis, seasonal Problem Stress and F43.29 Active 760287158 adjustment reaction Problem Pain R52 Active 68717966 Problem Hyperlipidemia, E78.2 Active 081982510 mixed Problem Seasonal J30.2 Active 478906843 allergies Problem Onychomycosis B35.1 Active 363784181 Problem Osteoporosis M81.0 Active 903471591 without current pathological fracture, unspecified osteoporosis type Problem Dermatitis of L30.9 Active 517728055 left foot ALLERGIES Allergen (clinical drug Drug/Non Drug Allergy Reaction Allergy Type Onset Date Status ingredient) documented on EMR Levaquin Unknown Drug Allergy Active metformin Metformin HCl([facility] Unknown Drug Allergy Activ e Code:[address]-95) ENCOUNTERS from 1940 to 2020-03-01 Encounter Location Date Provider Diagnosis [facility] [address] [facility] Feb, [place] te bronchitis, Family Medicine [address], [facility] [place] [id number] J20.9 ; [facility] for screening for C OVID-19 Z11.52 and Coug h R05 IMMUNIZATIONS No Information SOCIAL HISTORY Tobacco Use: [...] Information RESULTS No Results REASON FOR VISIT cough [id number], Telephone Only Visit MEDICAL (GENERAL) HISTORY Type Description Date Medical [...] Treatment Notes Treatm ent Clinical Notes Feb, Acute bronchitis, get plenty of unspecified rest, vitamin C, organism (ICD-10 - D 3, zinc to help J20.9) boost your immune system. As you are [...] for 14 days to be safe. Feb, Encounter for discussed with screening for patient thought COVID-19 (ICD-10 - symptoms have Z11.52) been going on for 2 weeks with hx of allergies, will still need to test for covid to make sure it is not covid as symptoms of URI, cough, cold , flu and covid overlap. pt agreed to have family member take her to get tested. Feb, Cough (ICD-10 - R05) Feb, Other Total time spen t by provider del ing this telephone visit was appro x 15 minutes. Als o, time was spent counseling and coordinating ca re including but n ot limited to discussion of t est results, diagnostic or treatment recommendations , prognosis, risk s and benefits of management options, instructions, education, compliance and or risk reduction. PLAN OF TREATMENT Treatment Notes Assessment Notes Clinical Notes Acute bronchitis, unspecified get plenty of rest, vitamin C, D 3, organism zinc to help boost your immune system. [...] quarantine for 14 days to be safe. Encounter for screening for discussed with patient thought COVID-19 symptoms have been going on for 2 weeks with hx of allergies, will still need to test for covid to make sure it is not covid as symptoms of URI, cough, cold , flu and covid overlap. pt agreed to have family member take her to get tested. Treatment Notes Test Name Order Date Novel Coronavirus (COVID-19), TIFFANI 2020-03-01 Inpatient 2020-03-01 Next Appt Details prn if no improvement Reason: Provider Name:[place] Low [place], 2020-03-04 08:0 0:00 AM, [address], [place], [address], Insurance Providers Payer Name Payer Payer Insured Patient Coverage Coverage End Address Phone Name Relationship to Start Date Akil e Insured [facility] [phone] Juan Haskins self 2019 [facility] [id number] [place] [address]
--- OUTSIDE RECORDS SUMMARY | 2020-03-16 16:41 | XMS REPORT ---
:1940 Author Organization [facility] Address [address] [place], [address] [place] [address] Care Team Providers Name Role Phone Tripp Unavailable [phone] PROBLEMS Type Condition ICD9-CM [id number] Onset Condition SNOMED Code Notes Code Code Dates Status Problem Vitamin D E55.9 Active 78224898 deficiency Problem Diabetes E11.9 Active 741565389 Problem Vitamin B12 E53.8 Active 760643644 deficiency Problem Depression with F41.8 Active 518682109 anxiety Problem Hypertension I10 Active 78050881 Problem Glaucoma H40.9 Active 32812228 Problem PAD (peripheral I73.9 Active 038904931 artery disease) Problem Hair loss L65.9 Active 524002964 Problem Cataract H26.9 Active 567220217 Problem Calcaneal spur, M77.32 Active 806565172397149 left Problem Claudication I73.9 Active 95718826 Problem GERD K21.9 Active 316157483 (gastroesophageal reflux disease) Problem 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 857773681 joint disease) Problem Hammer toe M20.40 Active 299221805 Problem Carotid artery I65.29 Active 691075782 occlusion Problem Ulcer L98.499 Active 873538664 Problem 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 79039417 lumbosacral intervertebral disc Problem Anemia, blood D50.0 Active 782171237 loss Problem Controlled type 2 E11.51 Active 281757954 diabetes mellitus with diabetic peripheral angiopathy without gangrene, without long-term current use of insulin Problem 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 Active 523356533914383 Problem Pain of left foot M79.672 Active 81411291 Problem Type 2 diabetes E11.29 Active 153472408 mellitus with other diabetic kidney complication Problem Hypertensive I16.0 Active 835306954 urgency Problem Skin ulcer of L97.521 Active 89851731 left foot, limited to breakdown of skin Problem Allergic J30.2 Active 576730438 rhinitis, seasonal Problem Stress and F43.29 Active 495386169 adjustment reaction Problem Pain R52 Active 52069248 Problem Hyperlipidemia, E78.2 Active 406222751 mixed Problem Seasonal J30.2 Active 549171027 allergies Problem Onychomycosis B35.1 Active 538389844 Problem Osteoporosis M81.0 Active 438203954 without current pathological fracture, unspecified osteoporosis type Problem Dermatitis of L30.9 Active 201790934 left foot ALLERGIES Allergen (clinical drug Drug/Non Drug Allergy Reaction Allergy Type Onset Date Status ingredient) documented on EMR Levaquin Unknown Drug Allergy Active metformin Metformin HCl([facility] Unknown Drug Allergy Activ e Code:[address]-57) ENCOUNTERS from 1940 to 2020-02-21 Encounter Location Date Provider Diagnosis [facility] [address] [facility] [address] [facility] [address], [place] [address] IMMUNIZATIONS No Information SOCIAL HISTORY Tobacco Use: [...] ONE TABLET BY Active MOUTH ONCE DAILY Plavix 75 MG 1 tablet Orally Once Ac tive a day for 90 days Metformin HCl 500 MG 1 tablet with a meal Active Orally Once a day for 90 days Klor-Con M10 10 MEQ 1 tablet with food Active Orally Twice a day for 30 day(s) Pentoxifylline ER 400 MG 1 tablet with meals Active Orally three times a day Metoprolol Tartrate 50 MG 1 tablet with food Active Orally Twice a day for 90 days Hydrochlorothiazide 25 MG TAKE 1 TABLET BY Active MOUTH ONCE DAILY for 90 days Alendronate Sodium 70 MG 1 tablet Orally once Active a week for 84 days Losartan Potassium 100 MG 1 tablet Orally Once Active a day for 90 days Ketoconazole 2 % 1 application to Ac tive affected area Externally twice a day for 30 days Pantoprazole Sodium 40 MG 1 tablet Orally Once Oct, 0 Active a day for 90 day(s) Benzonatate 100 MG 1 capsule as needed Active Orally two times a day for 15 Pantoprazole Sodium 40 MG 1 tablet Orally Once Active a day for 90 day(s) Atorvastatin Calcium 20MG 1 tablet at bedtime Active Orally Once a day for 90 days Citalopram Hydrobromide 20 MG take one tablet by Active mouth once daily Orally Once a day for 90 days Flonase 50 MCG/ACT 1 spray in each Sep, Active nostril Nasally Once a day for 30 day(s) Potassium Chloride Mey ER 10 TAKE ONE TABLET BY Active MEQ MOUTH TWICE DAILY Benzonatate 200 MG 1 capsule Orally Active Three times a day PRN COUGh for 10 GlipiZIDE 5 MG Take 1 tablet by Acti ve mouth once daily for 90 GlipiZIDE 5 1 tablet Orally Once Act josy a day for 90 days Triamcinolone Acetonide 0.1 % 1 application to Active affected area Externally Twice a day for 30 days Aspir-81 81 MG 1 tablet Orally Once Active a day PROCEDURES No Information RESULTS No Results REASON FOR VISIT sick/lab MEDICAL (GENERAL) HISTORY Type Description Date Medical [...] Medication Name Sig Start Date Stop Date Alendronate Sodium 70 MG 1 tablet Orally once a week for 84 days GlipiZIDE 5 1 tablet Orally Once a day for 90 days Metoprolol Tartrate 50 MG 1 tablet with food Orally Twice a day for 90 days Losartan Potassium 100 MG 1 tablet Orally Once a day for 90 days Pentoxifylline ER 400 MG 1 tablet with meals Orally three times a day Cetirizine HCl 10MG TAKE ONE TABLET BY MOUTH ONCE DAILY Atorvastatin Calcium 20MG 1 tablet at bedtime Orally Once a day for 90 days Pantoprazole Sodium 40 MG 1 tablet Orally Once a day for Oct, 90 day(s) Plavix 75 MG 1 tablet Orally Once a day for 90 days Aspir-81 81 MG 1 tablet Orally Once a day Metformin HCl 500 MG 1 tablet with a meal Orally Once a day for 90 days Citalopram Hydrobromide 20 MG take one tablet by mouth once daily Orally Once a day for 90 days Hydrochlorothiazide 25 MG TAKE 1 TABLET BY MOUTH ONCE DAILY for 90 days Next Appt Details Provider Name:[place] Tripp, 2020-03-04 08:0 0:00 AM, [address] [place], [address], [place], [address], Insurance Providers Payer Name Payer Payer Insured Patient Coverage Coverage End Address Phone Name Relationship to Start Date Akil e Insured [employer] [phone] [place],Auror self [address] [facility] [id number] [place] [address]
[2020-03-16 20:56] LABS: Protime INR 1.11
[2020-03-16 20:58] LABS: Absolute Lymphocytes (CBC) 2.4 K/uL (0.7-4.9); Basophils % 0.4 % (0-1.3); Hematocrit 33.9 % (36.0-45.0); Lymphocytes % 23.9 % (15.3-44.8); MPV 9.6 fL (7.6-11.3); RBC Red Blood Cell Count 4.19 M/uL (3.86-4.86)
[2020-03-16 21:13] LABS: ALT/SGPT 15 U/L (12-78); AST/SGOT 14 U/L (15-37); Albumin 3.5 g/dL (3.4-5.0); Alkaline Phosphatase 81 U/L (45-117); BUN Blood Urea Nitrogen 15 mg/dL (7-18); Bicarbonate 28 mmol/L (21-32); Bilirubin Direct 0.1 mg/dL (0-0.2); Bilirubin Total 0.5 mg/dL (0.2-1.0); Glucose Level 95 mg/dL (74-106); Magnesium 1.5 mg/dL (1.8-2.4); NT PRO-BNP 3878 pg/mL (<450); Potassium 3.1 mmol/L (3.5-5.1); Protein, Total 8.3 g/dL (6.4-8.2); Sodium Level 143 mmol/L (136-145); Troponin (Emerg Dept Use Only) < 0.02 ng/mL (0.0-0.045)
--- NOTE | 2020-03-16 23:43 | ER ---
Nurse's Notes [facility] Name: Eva Haskins Age: 79 yrs Sex: Female : 1940 Arrival Date: 03/16/2020 Time: 16:34 Bed 6 Private MD: [place] Tripp Diagnosis: Chest pain, unspecified;Pain in right shoulder Presentation: 03/16 16:42 Chief complaint: Patient states: Pain on R shoulder radiates to the back started ca1 yesterday. Denies injury. Denies lifting heavy object. SOB with the shoulder pain. Coronavirus screen: Client denies travel out of the [place] in the last 14 days. At this time, the client does not indicate any symptoms associated with coronavirus-19. Ebola Screen: Patient negative for fever greater than or equal to 101.5 degrees Fahrenheit, and additional compatible Ebola Virus Disease symptoms Patient denies exposure to infectious person. Patient denies travel to an Ebola-affected area in the 21 days before illness onset. No symptoms or risks identified at this time. Initial Sepsis Screen: Does the patient meet any 2 criteria? No. Patient's initial sepsis screen is negative. Does the patient have a suspected source of infection? No. Patient's initial sepsis screen is negative. Risk Assessment: Do you want to hurt yourself or someone else? Patient reports no desire to harm self or others. Onset of symptoms was March 16, 2020. 16:42 Method Of Arrival: Ambulatory ca1 16:42 Acuity: DEVON 3 ca1 Historical: - Allergies: 16:45 Iodine; ca1 16:45 Levofloxacin; ca1 - PMHx: 16:45 Diabetes - NIDDM; Hyperlipidemia; Hypertension; Myocardial infarction; TIA; ca1 - PSHx: 16:45 None; ca1 - Immunization history:: Adult Immunizations up to date, Pneumococcal vaccine is up to date, Flu vaccine is up to date. - Social history:: Smoking status: Patient denies any tobacco usage or history of. - Family history:: not pertinent. - Hospitalizations: : No recent hospitalization is reported. Screenin:02 Abuse screen: Denies threats or abuse. Nutritional screening: No deficits noted. ea Tuberculosis screening: No symptoms or risk factors identified. Fall Risk None identified. Assessment: 20:00 General: Appears in no apparent distress. Behavior is appropriate for age. Pain: ea Complains of pain in right shoulder. Neuro: Level of Consciousness is awake, alert, obeys commands, Oriented to person, place, time, situation. Respiratory: Airway is patent Respiratory effort is even, unlabored, Respiratory pattern is regular, symmetrical. Derm: Skin is pink, warm \T\ dry. 22:22 Reassessment: Joanne [phone]. ea 23:06 Reassessment: Patient and/or family updated on plan of care and expected duration. Pain ea level reassessed. Patient is alert, oriented x 3, equal unlabored respirations, skin warm/dry/pink. Vital Signs: 16:42 BP 207 / 82; Pulse 93; Resp 16 S; Temp 98.1; Pulse Ox 98% on R/A; Weight 70.31 kg (R); ca1 Height 5 ft. 0 in. (152.40 cm) (R); Pain 8/10; 19:05 BP 151 / 86; Pulse 87; Resp 20; Pulse Ox 98% ; sp 22:23 BP 166 / 98; Pulse 78; Resp 20; Pulse Ox 98% ; ea 23:07 BP 114 / 74; Pulse 89; Resp 19; Pulse Ox 99% on R/A; ea 02 01:12 BP 185 / 77; Pulse 85; Resp 19; Pulse Ox 95% ; ea 02 16:42 Body Mass Index 30.27 (70.31 kg, 152.40 cm) ca1 ED Course: 02 16:34 Patient arrived in ED. ag5 16:34 [place] Tripp MD is Private Physician. ag5 16:44 Triage completed. ca1 16:45 Arm band placed on right wrist. ca1 18:12 Warm blanket given. bd 20:02 Aziza Conde, NAINA is Primary Nurse. ea 20:02 Patient has correct armband on for positive identification. Bed in low position. Call ea light in reach. 20:03 Benja Cheek MD is Attending Physician. rn 20:30 Inserted saline lock: 22 gauge in left forearm, using aseptic technique. Blood ds4 collected. 21:52 XRAY Chest (1 view) In Process Unspecified. EDMS 22:10 CT Chest Wo Con In Process Unspecified. EDMS 23:42 Rory Cheek MD is Hospitalizing Provider. rn 03/17 01:11 No provider procedures requiring assistance completed. Patient admitted, IV remains in ea place. 07:11 Report received from NAINA Ervin. jl7 08:33 Note: PT COVID POSITIVE. AGAINST NUC MED PROTOCOL TO PERFORM VQ SCAN ON COVID POSITIVE mh1 PTS. INFORMED NURSE, DR. FAIRBANKS,RT (N), [facility]. Administered Medications: 00:06 Drug: Magnesium Sulfate 1 grams Route: IVPB; Infused Over: 1 hrs; Site: left ea antecubital; 00:06 Drug: Potassium Effervescent Tablet 50 mEq Route: PO; ea Outcome: 03/16 23:43 Decision to Hospitalize by Provider. rn 03/17 01:11 Instructed on the need for admit, Demonstrated understanding of instructions. ea 17:48 Discharged to home bp 17:48 Condition: stable 17:55 Patient left the ED. bp Signatures: Dispatcher [employer] EDMS Denise Schaffer Shawna sp Harvey, Martha mh1 Benja Cheek MD MD rn Swanson, Donovan ds4 Dayana Dudley RN RN jl7 Aziza Conde RN RN ea Peltier, Brian RN RN bp Acob, Esther, RN RN ca1 Lynda, [place] ag5 Corrections: (The following items were deleted from the chart) 03/16 16:45 16:42 Chief complaint: Patient states: Pain on R shoulder radiates to the back started ca1 yesterday. Denies injury. Denies lifting heavy object. ca1 16:45 16:42 Pulse 93bpm; Resp 16bpm; Spontaneous; 70.31 kg Reported; Height 5 ft. 0 in. ca1 Reported; BMI: 30.2; Pain 8/10; ca1
--- NOTE | 2020-03-16 23:43 | EDPHYS ---
Physician Documentation [facility] Name: Eva Haskins Age: 79 yrs Sex: Female : 1940 Arrival Date: 03/16/2020 Time: 16:34 Bed 6 Private MD: [place] Tripp ED Physician Benja Cheek HPI: 03/16 20:38 This 79 yrs old Female presents to ER via Ambulatory with complaints of rn Shoulder Pain. 20:38 The patient or guardian complains of pain, that is acute. right shoulder. Onset: The rn symptoms/episode began/occurred 2 day(s) ago. Modifying factors: the symptoms are alleviated by nothing. The symptoms are aggravated by lifting weight, movement, deep breath. Associated signs and symptoms: Pertinent negatives: abdominal pain, chest pain, dyspnea. Severity of symptoms: At their worst the symptoms were mild, in the emergency department the symptoms are unchanged. The patient has not experienced similar symptoms in the past. Denies injury, thinks may have hurt it lifting bottle of detergent, worse with movement of right shoulder and with deep inspiration. Reports diagnosed with COVID 2 weeks ago. No chest pain or sob. No hx of dvt/pe. No abd pain/vomiting/nausea/diarrhea/blood in stool. No trauma. . Historical: - Allergies: 16:45 Iodine; ca1 16:45 Levofloxacin; ca1 - PMHx: 16:45 Diabetes - NIDDM; Hyperlipidemia; Hypertension; Myocardial infarction; TIA; ca1 - PSHx: 16:45 None; ca1 - Immunization history:: Adult Immunizations up to date, Pneumococcal vaccine is up to date, Flu vaccine is up to date. - Social history:: Smoking status: Patient denies any tobacco usage or history of. - Family history:: not pertinent. - Hospitalizations: : No recent hospitalization is reported. ROS: 20:38 Constitutional: Negative for fever, chills, and weight loss, Eyes: Negative for injury, rn pain, redness, and discharge, Neck: Negative for injury, pain, and swelling, Cardiovascular: Negative for chest pain, palpitations, and edema, Respiratory: Negative for shortness of breath, cough, wheezing, and pleuritic chest pain, Abdomen/GI: Negative for abdominal pain, nausea, vomiting, diarrhea, and constipation, Back: Negative for injury MS/Extremity: + right shoulder pain Skin: Negative for injury, rash, and discoloration, Neuro: Negative for headache, weakness, numbness, tingling, and seizure. Exam: 20:38 Constitutional: This is a well developed, well nourished patient who is awake, alert, rn and in no acute distress. Head/Face: Normocephalic, atraumatic. Neck: Trachea midline, no masses palpated Chest/axilla: Normal chest wall appearance and motion. Nontender with no deformity. No lesions are appreciated. Cardiovascular: Regular rate and rhythm. No pulse deficits. Respiratory: No increased work of breathing, no retractions or nasal flaring. Abdomen/GI: soft, non-tender, neg gillespie Skin: Warm, dry MS/ Extremity: Pulses equal, no cyanosis. Neurovascular intact. Full, normal range of motion. Equal circumference. Neuro: Awake and alert, GCS 15 Vital Signs: 16:42 BP 207 / 82; Pulse 93; Resp 16 S; Temp 98.1; Pulse Ox 98% on R/A; Weight 70.31 kg (R); ca1 Height 5 ft. 0 in. (152.40 cm) (R); Pain 8/10; 19:05 BP 151 / 86; Pulse 87; Resp 20; Pulse Ox 98% ; sp 22:23 BP 166 / 98; Pulse 78; Resp 20; Pulse Ox 98% ; ea 23:07 BP 114 / 74; Pulse 89; Resp 19; Pulse Ox 99% on R/A; ea 03/17 01:12 BP 185 / 77; Pulse 85; Resp 19; Pulse Ox 95% ; ea 03/16 16:42 Body Mass Index 30.27 (70.31 kg, 152.40 cm) ca1 MDM: 03/16 20:03 Patient medically screened. rn 20:59 ED course: Elevated D-dimer, patient reports iodine allergy, reports "in past and can't rn remember what happened". Does not recall if life threatening or difficulty breathing. No recent IV contrast studies. . 23:39 Differential diagnosis: arthritis, referred pain, PE, pneumonia, pneumothorax. Data rn reviewed: vital signs, nurses notes, lab test result(s), EKG, radiologic studies, CT scan, plain films, and as a result, I will admit patient. Counseling: I had a detailed discussion with the patient and/or guardian regarding: the historical points, exam findings, and any diagnostic results supporting the discharge/admit diagnosis, lab results, radiology results, the need for further work-up and treatment in the hospital. Admission orders: after a detailed discussion of the patient's condition and case, the admit orders are written by me. ED course: CT chest does not show interstitial infiltrate findings of cxr, pt still with tachypnea, nursing vitals show RR 20, but when I am in room is breathing upper 20s to mid 30s, given tachypnea with pleuritic pain and recently with COVID, will admit for V/Q study and further eval to rule out PE/pulmonary cause of symptoms. . 03/16 20:50 Order name: Basic Metabolic Panel; Complete Time: 21:45 EDNE 03/16 20:50 Order name: Liver (Hepatic) Function; Complete Time: 21:45 EDNE 03/16 20:50 Order name: Troponin (Emerg Dept Use Only); Complete Time: 21:45 EDNE 03/16 20:50 Order name: NT PRO-BNP; Complete Time: 21:45 EDNE 03/16 20:50 Order name: Magnesium; Complete Time: 21:45 EDNE 03/16 20:50 Order name: CBC with Automated Diff; Complete Time: 21:00 EDNE 03/16 20:13 Order name: XRAY Chest (1 view) rn 03/16 20:50 Order name: Protime (+INR); Complete Time: 20:58 EDNE 03/16 20:50 Order name: D-Dimer; Complete Time: 20:58 EDNE 03/16 21:00 Order name: CT Chest Wo Con rn 03/17 00:29 Order name: CORONAVIRUS EDNE 03/17 01:22 Order name: CORONAVIRUS EDNE 03/17 02:11 Order name: SARS-COV-2 RT PCR EDNE 03/17 04:57 Order name: CBC with Automated Diff EDNE 03/17 05:11 Order name: Basic Metabolic Panel EDNE 03/17 05:17 Order name: Troponin I; Complete Time: 15:40 EDNE 03/17 07:56 Order name: Glucose, Ancillary Testing EDNE 03/17 11:43 Order name: Troponin I EDNE 03/17 12:47 Order name: Glucose, Ancillary Testing EDNE 03/16 16:46 Order name: EKG; Complete Time: 17:19 ca1 03/16 16:46 Order name: EKG - Nurse/Tech; Complete Time: 16:50 ca1 03/16 20:13 Order name: Cardiac monitoring; Complete Time: 20:15 rn 03/16 20:13 Order name: IV Saline Lock; Complete Time: 20:43 rn 03/16 20:13 Order name: Labs collected and sent; Complete Time: 20:43 rn 03/16 20:13 Order name: O2 Per Protocol; Complete Time: 20:43 rn 03/16 20:13 Order name: O2 Sat Monitoring; Complete Time: 20:45 rn Administered Medications: 03/17 00:06 Drug: Magnesium Sulfate 1 grams Route: IVPB; Infused Over: 1 hrs; Site: left ea antecubital; 00:06 Drug: Potassium Effervescent Tablet 50 mEq Route: PO; ea Disposition: 03/16/20 23:43 Hospitalization ordered by Rory Cheek for Observation. Preliminary diagnosis are Chest pain, unspecified, Pain in right shoulder. - Bed requested for [facility] ER HOLD. - Status is Observation. bp - Condition is Stable. - Problem is new. - Symptoms have improved. Signatures: Dispatcher [employer] EDMS Ingris Ruby RN RN dw Nieto, Roman, MD MD rn Attema, Lee, SURVEILLANCE OBSERVER-C SURVEILLANCE OBSERVER-Cla1 Aziza Conde RN RN ea Peltier, Brian, RN RN bp Acob, Cheryl RN NAINA ca1 Corrections: (The following items were deleted from the chart) 03/16 21:49 21:19 CBC+H.LAB.BRZ ordered. EDMS EDMS 21:49 21:19 PROTIME (+INR)+COAG.LAB.BRZ ordered. EDMS EDMS 21:49 21:19 D-DIMER+COAG.LAB.BRZ ordered. EDMS EDMS 21:50 21:19 BASIC METABOLIC PANEL+C.LAB.BRZ ordered. EDMS EDMS 21:50 21:19 HEPATIC FUNCTION+C.LAB.BRZ ordered. EDMS EDMS 21:50 21:19 MAGNESIUM+C.LAB.BRZ ordered. EDMS EDMS 21:50 21:19 PROBNP+C.LAB.BRZ ordered. EDMS EDMS 21:50 21:19 TROPONIN (EMERG DEPT USE ONLY)+C.LAB.BRZ ordered. EDMS EDMS 03/17 00:38 03/16 23:43 Hospitalization Ordered by Rory Cheek MD for Observation. Preliminary dw diagnosis is Chest pain, unspecified; Pain in right shoulder. Bed requested for Telemetry/MedSurg (observation). Status is Observation. Condition is Stable. Problem is new. Symptoms have improved. rn 03/17 02:19 00:38 03/16/2020 23:43 Hospitalization Ordered by Rory Cheek MD for Observation. dw Preliminary diagnosis is Chest pain, unspecified; Pain in right shoulder. Bed requested for Telemetry/MedSurg (observation). Status is Observation. Condition is Stable. Problem is new. Symptoms have improved. dw 17:55 02:19 03/16/2020 23:43 Hospitalization Ordered by Rory Cheek MD for Observation. bp Preliminary diagnosis is Chest pain, unspecified; Pain in right shoulder. Bed requested for [facility] ER HOLD. Status is Observation. Condition is Stable. Problem is new. Symptoms have improved. dw
--- NOTE | 2020-03-17 00:21 | P.HP ---
Certification for Inpatient Patient admitted to: Observation With expected LOS: <2 Midnights Patient will require the following post-hospital care: None Practitioner: I am a practitioner with admitting privileges, knowledge of patient current condition, hospital course, and medical plan of care. Services: Services provided to patient in accordance with Admission requirements found in Title 42 Section 412.3 of the Code of Federal Regulations <Michele Godoy - Last Filed: 03/17/20 00:17> Patient History Date of Service: 03/17/20 Reason for admission: chest pain History of Present Illness: 79-year-old female with history of diabetes mellitus type 2, hyperlipidemia, hypertension, CAD S/P CABG, TIA presents emergency department for right-sided chest/shoulder pain. Patient reports that pain started today, radiates to back described as aching, not made worse with range of motion of arm/shoulder, exacerbated by deep breaths. Patient recently was positive for COVID on 02/28/2020. Patient was worked up the emergency department, labs significant for potassium 3.1 magnesium 1.5 BNP 3878 D-dimer 897. ED provider wishes to perform CT PE protocol to rule out PE but patient is allergic to iodine, patient unable to recall what kind of reaction she had, discuss this with daughter also who could not verify severity of reaction. ED provider wishes to admit patient for chest pain/PE rule out. - Past Medical/Surgical History Diabetic: Yes -: Diabetes - NIDDM -: Hyperlipidemia -: Hypertension -: CAD S/P CABG -: TIA -: asthma -: bronchitis -: Glaucoma -: PVD -: Triple Bypass -: Heart stents -: Leg Stents Psychosocial/ Personal History: Patient is retired, lives with family - Family History Mother -: Heart disease Father -: Liver disease Brother -: Diabetes, Liver disease - Social History Smoking Status: Never smoker Alcohol use: No CD- Drugs: No Caffeine use: Yes Place of Residence: Home <Michele Godoy - Last Filed: 03/17/20 00:17> Date of Service: 03/30/20 <Rory Cheek - Last Filed: 03/30/20 20:31> Allergies levofloxacin [From Levaquin] Allergy (Verified 10/27/14 15:08) Nausea/Vomiting IODINE; IODINE CONTAINING Allergy (Uncoded 05/15/14 22:46) Unknown Home Medications: Atorvastatin Calcium [Lipitor*] 20 mg PO DAILY 07/03/18 Benzonatate [Tessalon Perle*] 100 mg PO BIDP PRN 07/03/18 Brimonidine [Alphagan P 0.15%*] 1 drop EACH EYE BID 07/03/18 Cetirizine HCl 10 mg PO DAILY 07/03/18 Citalopram [Celexa*] 10 mg PO DAILY 07/03/18 Ketoconazole 1 chris TOP PRN 07/03/18 Latanoprost/Pf [Latanoprost 0.005% Eye Drop] 1 drop EACH EYE BEDTIME 07/03/18 Losartan/Hydrochlorothiazide [Hyzaar 100-25 Tablet] 1 tab PO DAILY 07/03/18 Metoprolol Tartrate [Lopressor*] 50 mg PO BID 07/03/18 Timolol 0.5% Opth [Timoptic 0.5% Opth*] 1 drop EACH EYE BID 07/03/18 glipiZIDE [Glucotrol*] 5 mg PO BIDWM 07/03/18 Ciprofloxacin HCl [Cipro 500 MG Tablet] 500 mg PO DAILY #14 tab 07/04/18 metroNIDAZOLE [Flagyl] 500 mg PO Q6H #56 tablet 07/04/18 Review of Systems 10-point ROS is otherwise unremarkable Respiratory: Shortness of Breath, Pleuritic Pain Cardiovascular: Chest Pain <Michele Godoy - Last Filed: 03/17/20 00:17> Physical Examination - Physical Exam General: Alert, In no apparent distress HEENT: Atraumatic, PERRLA, Mucous membr. moist/pink Neck: Supple, 2+ carotid pulse no bruit, No LAD Respiratory: Clear to auscultation bilaterally, Normal air movement Cardiovascular: Regular rate/rhythm, Normal S1 S2 Gastrointestinal: Normal bowel sounds, No tenderness Musculoskeletal: No tenderness Integumentary: No rashes Neurological: Normal speech, Normal strength at 5/5 x4 extr, Normal tone, Normal affect - Studies Laboratory Data (last 24 hrs) 03/16/20 20:40: PT 13.1 H, INR 1.11 03/16/20 20:40: WBC 9.80, Hgb 11.3 L, Hct 33.9 L, Plt Count 184 03/16/20 20:40: Sodium 143, Potassium 3.1 L, BUN 15, Creatinine 0.60, Glucose 95, Magnesium 1.5 L, Total Bilirubin 0.5, AST 14 L, ALT 15, Alkaline Phosphatase 81 03/16/20 20:13: PT Cancelled, INR Cancelled 03/16/20 20:13: WBC Cancelled, Hgb Cancelled, Hct Cancelled, Plt Count Cancelled 03/16/20 20:13: Sodium Cancelled, Potassium Cancelled, BUN Cancelled, Creatinine Cancelled, Glucose Cancelled, Magnesium Cancelled, Total Bilirubin Cancelled, AST Cancelled, ALT Cancelled, Alkaline Phosphatase Cancelled <Michele Godoy - Last Filed: 03/17/20 00:17> Assessment and Plan - Plan Assessment Atypical chest pain/rule out PE Diabetes mellitus type 2 Hypertension Hyperlipidemia CAD S/P CABG History of TIA Plan Atypical chest pain/rule out PE: Monitor on telemetry, trend troponins. Patient unable to delineate severity of her iodine reaction, family also not able to provide additional information. Plan for V/Q scan in the morning. Obtain and continue home medications as appropriate. DVT prophylaxis with Lovenox 40 mg subcutaneous once daily. Likely discharge once PE is ruled out. Diabetes mellitus type 2, Hypertension, Hyperlipidemia , CAD S/P CABG ,History of TIA: Obtain and continue home medications. Discharge Plan: Home Plan to discharge in: 24 Hours - Advance Directives Does patient have a Living Will: No Does patient have a Durable POA for Healthcare: No - Code Status/Comfort Care Code Status Assessed: Yes (Full code) Critical Care: No Time Spent Managing Pts Care (In Minutes): 55 <Michele Godoy - Last Filed: 03/17/20 00:17> - Plan Plan of care discussed with Michele Godoy, and I agree with the management plan as noted above. <Rory Cheek - Last Filed: 03/30/20 20:31>
[2020-03-17] MEDS ORDERED: ACETAMINOPHEN 500 MG TAB PO PRN (02:47)
[2020-03-17] MEDS ORDERED: ONDANSETRON 4 MG/2 ML VIAL IV PRN (02:47)
[2020-03-17 03:08] VITALS: BMI 30.2
[2020-03-17 04:56] LABS: Absolute Lymphocytes (CBC) 1.4 K/uL (0.7-4.9); Basophils % 0.5 % (0-1.3); Hematocrit 28.3 % (36.0-45.0); Lymphocytes % 18.1 % (15.3-44.8); MPV 9.4 fL (7.6-11.3)
[2020-03-17 05:10] LABS: BUN Blood Urea Nitrogen 11 mg/dL (7-18); Bicarbonate 31 mmol/L (21-32); Glucose Level 119 mg/dL (74-106); Potassium 3.1 mmol/L (3.5-5.1); Sodium Level 145 mmol/L (136-145)
[2020-03-17] MEDS ORDERED: POTASSIUM CL SA 10 MEQ TAB PO ONE ×2 (06:29→06:47)
[2020-03-17] MEDS: INSULIN -REGULAR HUMAN 50 UNIT/0.5 ML ML SQ SCH ×2 (07:30→11:30)
[2020-03-17] MEDS ORDERED: ENOXAPARIN 40 MG/0.4 ML SQ SCH (09:00)
[2020-03-17] MEDS ORDERED: ENOXAPARIN 40 MG/0.4 ML SQ ONE (10:23)
--- NOTE | 2020-03-17 12:56 | EKG ---
Test Date: 2020-03-16 Test Time: 16:49:07 Web Production Manager: WANDA MEASUREMENT RESULTS: Intervals: Rate: 74 [place]: 130 QRSD: 90 QT: 348 QTc: 386 [place]: P: 45 AZ: 130 QRS: -16 T: 158 INTERPRETIVE STATEMENTS: Normal sinus rhythm Possible Anterior infarct, age undetermined ST & T wave abnormality, consider lateral ischemia Abnormal ECG Compared to ECG 01/21/2019 14:54:22 ST (T wave) deviation now present Possible ischemia now present Left-axis deviation no longer present Myocardial infarct finding still present Electronically Signed On 03-17-20 12:53:29 RAND CEMENTER by Mert Eason
--- NOTE | 2020-03-17 13:30 | ECHO ---
HEIGHT: 5 ft 0 in WEIGHT: 155 lb 0.112 oz DATE OF STUDY: 03/17/[address]: Mert Eason MD 2-DIMENSIONAL: YES M.MODE: YES DOPPLER: YES COLOR FLOW: YES TDS: PORTABLE: DEFINITY: BUBBLE STUDY: DIAGNOSIS: CHEST PAIN CARDIAC HISTORY: CATHERIZATION: SURGERY: PROSTHETIC VALVE: PACEMAKER: MEASUREMENTS (cm) DIASTOLIC (NORMALS) SYSTOLIC (NORMALS) IVSd 1.3 (0.6-1.2) LA Diam 3.9 (1.9-4.0) LVEF 58% LVIDd 4.5 (3.5-5.7) LVIDs 3.1 (2.0-3.5) %FS 31% LVPWd 1.2 (0.6-1.2) Ao Diam 2.7 (2.0-3.7) 2 DIMENSIONAL ASSESSMENT: RIGHT ATRIUM: NORMAL LEFT ATRIUM: NORMAL RIGHT VENTRICLE: NORMAL LEFT VENTRICLE: NORMAL TRICUSPID VALVE: NORMAL MITRAL VALVE: NORMAL PULMONIC VALVE: NORMAL AORTIC VALVE: STENOTIC PERICARDIAL EFFUSION: NONE AORTIC ROOT: NORMAL LEFT VENTRICULAR WALL MOTION: NORMAL DOPPLER/COLOR FLOW: MILD AORTIC STENOSIS - 1.6 CENTIMETERS SQUARED. COMMENTS: MILD AORTIC STENOSIS - 1.6 CENTIMETERS SQUARED. NORMAL LEFT VENTRICULAR SIZE AND FUNCTION. NO WALL MOTION ABNORMALITY. NO EFFUSION. TECHNOLOGIST: RAS TUCKER
[2020-03-17 15:26] VITALS: TEMP 98.9
--- NOTE | 2020-03-17 15:33 | RAD REPORT ---
EXAM DESCRIPTION: right shoulder pain, recent COVID COMPARISON None. TECHNIQUE: XR CHEST 1 VIEW 03/16/2020 8:13 PM ADJUNCT INSTRUCTOR IN ECONOMICS FINDINGS: The heart is mildly enlarged following sternotomy. There are diffuse interstitial changes throughout both lungs. There is no pleural effusion. There is no pneumothorax. There are no acute oss eous findings. IMPRESSION: Diffuse nonspecific interstitial changes. Pneumonia is possible. Electronically signed by: Franki Farmer MD 03/16/2020 10:08 PM ADJUNCT INSTRUCTOR IN ECONOMICS Due to temporary technical issues with the PACS/Fluency reporting system, reports are being signed by the in house radiologists without review as a courtesy to insure prompt reporting. The interpreting radiologist is fully responsible for the content of the report.
--- NOTE | 2020-03-17 16:02 | RAD REPORT ---
EXAM DESCRIPTION: right shoulder/thoracic pain COMPARISON: None. TECHNIQUE: CT CHEST WITHOUT IV CONTRAST on 03/16/2020 9:00 PM DIGITAL MEDIA INTERN This exam was performed according to our departmental dose-optimization program, which includes autom ated exposure control, adjustment of the mA and/or kV according to patient size and/or use of iterati ve reconstruction technique. FINDINGS: The heart is borderline in size following sternotomy. There is no pericardial effusion. In trathoracic lymph nodes are not enlarged. There is a small left pleural effusion. There is a trace right pleural effusion. Central airways are patent. There is minimal bibasilar atelectasis with small amount scarring in the upper lobes. Underly ing minimal infectious or inflammatory bronchiolitis is not completely excluded. Thoracic aorta is de nsely calcified without aneurysm. There are no acute abnormalities within the limited images of the upper abdomen. There are no acute osseous findings. No suspicious bony lesions. IMPRESSION: No definite posttraumatic findings. Small bilateral pleural effusions. Electronically signed by: Franki Farmer MD 03/16/2020 10:18 PM DIGITAL MEDIA INTERN Due to temporary technical issues with the PACS/Fluency reporting system, reports are being signed by the in house radiologists without review as a courtesy to insure prompt reporting. The interpreting radiologist is fully responsible for the content of the report.
--- NOTE | 2020-03-17 16:38 | P.DS ---
Admission Date: 03/16/20 Discharge Date: 03/17/20 Disposition: ROUTINE DISCHARGE Discharge Condition: GOOD Reason for Admission: chest pain Consultations: Cardiology - Dr. Eason Procedures: CXR (03/16): diffuse nonspecific interstitial changes. pneumonia is possible CT Chest (03/16): small left pleural effusion. trace right pleural effusion. minimal bibasilar atelectasis with small amount of scarring in the upper lobes. Underlying minimal infectious or inflammatory bronchiolitis is not completely excluded. TTE (03/17): mild AoS (1.6cm squared), EF: 58%, no wall motion abnormality, no effusion Problem List: Atypical chest pain/rule out PE Diabetes mellitus type 2 Hypertension Hyperlipidemia CAD S/P CABG History of TIA Brief History of Present Illness: 79-year-old female with history of diabetes mellitus type 2, hyperlipidemia, hypertension, CAD S/P CABG, TIA presents emergency department for right-sided chest/shoulder pain. Patient reports that pain started today, radiates to back described as aching, not made worse with range of motion of arm/shoulder, exacerbated by deep breaths. Patient recently was positive for COVID on 02/28/2020. Patient was worked up the emergency department, labs significant for potassium 3.1 magnesium 1.5 BNP 3878 D-dimer 897. ED provider wishes to perform CT PE protocol to rule out PE but patient is allergic to iodine, patient unable to recall what kind of reaction she had, discuss this with daughter also who could not verify severity of reaction. ED provider wishes to admit patient for chest pain/PE rule out. Hospital Course: Patient was monitored and was feeling better. Remained with SpO2 94-99% on room air. Unfortunately hospital protocol did not allow COVID patients to have V/Q scan per radiology department. Patient had mild elevated of troponin (0.07). Cardiology was consulted for atypical chest pain and mild increase in troponin. Echo was done which revealed mild Aortic stenosis, no wall motion abnormality, no right heart strain. EKG and echo without signs of PE, and patient's SpO2 remained high on room air. These were reviewed with patient and her daughter, Joanne. Discussed benefits vs risks of empirically covering for PE vs continue home aspirin/plavix. Given that EKG, echo, and vitals were WNL, her likely have PE was low. Her elevated d-dimer was likely due to her COVID-19 infection, which she is mostly asymptomatic from. She was discharged home to continue her home medications. She was not prescribed prednisone for COVID since she was asymptomatic / not requiring oxygen. She is to f/u with PCP if any symptoms worsen, also discussed f/u appointment with Dr. Ladarius Vazquez next week for follow up of COVID+. Vital Signs/Physical Exam: Temp Pulse Resp BP Pulse Ox 98.9 F 81 31 H 163/104 H 97 03/17/20 12:00 03/17/20 12:00 03/17/20 12:00 03/17/20 12:00 03/17/20 12:00 General: Alert, In no apparent distress, Oriented x3 HEENT: Sclerae nonicteric Neck: Supple Respiratory: Clear to auscultation bilaterally, Normal air movement Cardiovascular: No edema, Regular rate/rhythm, Systolic murmur (II/) Gastrointestinal: Soft and benign, Non-distended, No tenderness Integumentary: No rashes Neurological: Normal speech, Normal affect Laboratory Data at Discharge: WBC 7.50 K/uL (4.3-10.9) D 03/17/20 04:44 Hgb 9.6 g/dL (12.0-15.0) L 03/17/20 04:44 Hct 28.3 % (36.0-45.0) L D 03/17/20 04:44 Plt Count 158 K/uL (152-406) 03/17/20 04:44 PT 13.1 SECONDS (9.5-12.5) H 03/16/20 20:40 INR 1.11 03/16/20 20:40 Sodium 145 mmol/L (136-145) 03/17/20 04:44 Potassium 3.1 mmol/L (3.5-5.1) L 03/17/20 04:44 BUN 11 mg/dL (7-18) 03/17/20 04:44 Creatinine 0.55 mg/dL (0.55-1.3) 03/17/20 04:44 Glucose 119 mg/dL (74-106) H 03/17/20 04:44 Magnesium 1.5 mg/dL (1.8-2.4) L 03/16/20 20:40 Total Bilirubin 0.5 mg/dL (0.2-1.0) 03/16/20 20:40 AST 14 U/L (15-37) L 03/16/20 20:40 ALT 15 U/L (12-78) 03/16/20 20:40 Alkaline Phosphatase 81 U/L (45-117) 03/16/20 20:40 Troponin I 0.03 ng/mL (0.0-0.045) 03/17/20 10:50 Home Medications: Atorvastatin Calcium [Lipitor*] 20 mg PO DAILY 07/03/18 Benzonatate [Tessalon Perle*] 100 mg PO BIDP PRN 07/03/18 Brimonidine [Alphagan P 0.15%*] 1 drop EACH EYE BID 07/03/18 Cetirizine HCl 10 mg PO DAILY 07/03/18 Citalopram [Celexa*] 10 mg PO DAILY 07/03/18 Ketoconazole 1 chris TOP PRN 07/03/18 Latanoprost/Pf [Latanoprost 0.005% Eye Drop] 1 drop EACH EYE BEDTIME 07/03/18 Losartan/Hydrochlorothiazide [Hyzaar 100-25 Tablet] 1 tab PO DAILY 07/03/18 Metoprolol Tartrate [Lopressor*] 50 mg PO BID 07/03/18 Timolol 0.5% Opth [Timoptic 0.5% Opth*] 1 drop EACH EYE BID 07/03/18 glipiZIDE [Glucotrol*] 5 mg PO BIDWM 07/03/18 Ciprofloxacin HCl [Cipro 500 MG Tablet] 500 mg PO DAILY #14 tab 07/04/18 metroNIDAZOLE [Flagyl] 500 mg PO Q6H #56 tablet 07/04/18 Physician Discharge Instructions: Your chest / Shoulder pain was evaluated. Your chest x-ray, CT scan, did not show any infection / sign / cause for the pain. You had an echocardiogram that revealed mild aortic stenosis which is not causing your pain and is something to follow up with Cardiology in the near future. Continue to take aspirin, plavix, and resume the rest of your home medications. You tested positive for COVID-19, [address] scan did not reveal any pneumonia findings and you did not need any oxygen. You can call Dr. Vazquez's (Ladarius Vazquez - Drug Safety Scientist) office to follow up in 1 week. Diet: AHA Activity: Ad jadon Followup: [place] Tripp DO [Primary Care Provider] - Time spent managing pt's care (in minutes): 35
[2020-03-17 17:14] VITALS: BP 169/58
[2020-03-17 18:30] VITALS: O2SAT 95
--- NOTE | 2020-03-21 21:04 | CON ---
Date of Consultation: 03/17/2020 Reason For Consultation: Elevated troponin, chest pain, and shoulder pain. History Of Present Illness: Ms. Haskins is an 79-year-old, who was admitted with COVID. She also was anemic, had elevated D-dimer. V/Q scan was pending. By the time I saw her, she was hypokalemic, hyp omagnesemic. Her chest pain was atypical, but sharp and increased with breathing. It was not exerti onal. She has had cough. Denied PND, orthopnea, pedal edema, palpitations, or syncope. Allergies: SHE IS ALLERGIC TO IODINE, LEVAQUIN. Past Medical History: Includes CAD, TIA, hypertension, diabetes, and dyslipidemia. Review of Systems: Negative. Social History: Negative. Medications: At home include Lipitor, Cipro, Celexa, losartan with hydrochlorothiazide, metoprolol, glipizide. Physical Examination: Vital Signs: She was hypertensive at 207/82. The rest of her vital signs were stable. HEENT: Negative. Neck: Supple with no bruit. Chest: Clear. Cardiac: Regular rhythm and rate with S4 gallops. Abdomen: Benign. Extremities: No clubbing, cyanosis, or edema. Diagnostic Data: D-dimer of 897. Potassium 3.1. Magnesium 1.5. BNP was 3878. Troponin was 0.07 a nd the next one was 0.03. She was positive for coronavirus. Chest x-ray showed diffuse nonspecific interstitial changes, possible pneumonia. Echocardiogram showed mild aortic stenosis 1.6 cm2, otherw ise was normal ejection fraction and no wall motion abnormalities. Her EKG showed possible lateral i schemia versus LVH. Impression And Plan: 1.Atypical chest pain. 2.Mildly elevated troponin secondary to COVID pneumonia and demand ischemia. 3.Hypokalemia, that needs to be corrected. 4.Hypomagnesemia, that needs to be corrected. 5.COVID infection, that needs to be treated. 6.Mild aortic stenosis, that is chronic, 1.6 cm2, that needs to be followed on a yearly basis. 7.Her other problems include hypertension, dyslipidemia, history of coronary artery disease. All th radha are stable at this point. Her blood pressure was very elevated when she came in and that needs t o be attended too. She may benefit from a low-dose beta-bipin down the road. She can go home and we will see her in t he office as an outpatient once it is okay with Dr. Cheek. YADIRA/BARTOLOME Voice ID: [id number] Report ID: [id number]
== END 2020-03-17 17:54 | disposition home or self-care (01) ==
LOC: ER 16:31 → ERHOLD 23:58
PROVIDERS: ADMIT Hospitalist; ATTEND Hospitalist
DX: U07.1 COVID-19 (principal); R07.89 Other chest pain; R94.31 Abnormal electrocardiogram [ECG] [EKG]; R79.1 Abnormal coagulation profile; E83.42 Hypomagnesemia; E87.6 Hypokalemia; E11.51 Type 2 diabetes mellitus with diabetic peripheral angiopathy without gangrene; I10 Essential (primary) hypertension; E78.5 Hyperlipidemia, unspecified; I25.10 Atherosclerotic heart disease of native coronary artery without angina pectoris; Z95.1 Presence of aortocoronary bypass graft; Z86.73 Personal history of transient ischemic attack (TIA), and cerebral infarction without residual deficits; Z95.5 Presence of coronary angioplasty implant and graft; H40.9 Unspecified glaucoma; J45.909 Unspecified asthma, uncomplicated
CPT/HCPCS: 93005; 93306; 85025 ×2; 80048 ×2; 36415; 83735; 85610; 82947 ×2; 85379; 80076; 84484 ×3; 83880; 71250; 71045; 96374; 99284; U0003; J1650; G0378

== ENCOUNTER 2020-05-22 13:14 | Emergency (ER) | payer MEDICARE ==
--- OUTSIDE RECORDS SUMMARY | 2020-05-22 13:22 | XMS REPORT | Continuity of Care Document ---
:1940 Author Organization [facility] t Address [address] [place] [address] Care Team Providers Name Role Phone Dup_Vang Primary Care Physician Unavailable Guru Burch Attending Clinician Guru Burch Admitting Clinician Problems Condition Condition Condition Status Onset Resolution Last Treating Co mments Source Name Details Category Date Date Treatment Clinician Date Coronary Coronary Disease Active [place] on artery artery 2-16 Methodi disease disease 00:00: st involving involving 00 [place] coronary coronary artery artery Essential Essential Disease Active Rebecca ston hypertensi hypertensi 2-16 Me thodi on on 00:00: st 00 Depression Depression Disease Active [place] 2-16 Methodi 00:00: st 00 NSTEMI NSTEMI Disease Active [place] (non-ST (non-ST 2-16 Methodi elevated elevated 00:00: st myocardial myocardial 00 infarction infarction ) ) UNK Diagnosis Active 2016-06-20 Mem oria 06-06 21:57:00 l UNK 00:00: [place] 00 Active 06/06/2016 [place] 433.10/353 Diagnosis Active 2012-05-17 Memoria 01 05-02 14:33:00 l 00:00: [place] 433.10/353 00 01 Active 3 [facility] 433.10, Diagnosis Active 2013-0 2012-04-18 Me moria CAROTID 3-06 16:00:00 l ARTERY 433.10, 00:00: Christopher STENOSIS CAROTID 00 ARTERY STENOSIS Active 04/18/2012 [facility] CAROTID Diagnosis Active 2012-05-10 Me moria STENOSIS 3-06 21:43:00 l CAROTID 00:00: [place] STENOSIS 00 Active 04/18/2012 [facility] OTHER Diagnosis Active 2012-04-19 Mem oria 306 00:54:00 l OTHER 00:00: [place] 00 Active 04/18/2012 [facility] DM - Problem Resolve 2012-04-28 Wilfrid mendy Diabetes d 08:59:09 l mellitus DM - Christopher Diabetes mellitus Resolved Problem 04/28/2012 [facility] Hypertensi Problem Resolve 2012-04-28 Memoria on d 08:59:09 l [place] Hypertensi on Resolved Problem 04/28/2012 [facility] Hypertensi Problem Resolve 2016-06-17 Memoria ve d 01:28:39 l disorder, Christopher systemic Hypertensi arterial ve (disorder) disorder, systemic arterial (disorder) Resolved Problem 06/17/2016 [facility] Limb Pain Problem Active 2013-04-03 Me moria 13:30:33 l Limb [place] Pain Active [facility] Carotid Problem Active 2013-04-03 Wilfrid mendy Artery 13:30:33 l Stenosis Carotid Jackelyn nn Artery Stenosis Active [facility] Diabetes Problem Active 2013-04-03 Mem oria Mellitus 13:30:33 l Diabetes M[place] n Mellitus Active [facility] Hyperchole Problem Active 2013-04-03 M emoria sterolemia 13:30:33 l [place] Hyperchole sterolemia Active 04/03/2013 [facility] Atheroscle Problem Active 2013-04-03 M emoria rosis Of 13:30:33 l The [place] 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 With on Intermitte nt Claudicati on Active 04/03/2013 [facility] 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 Active 4 [facility] Gastroesop Problem Active 2016-06-17 M emoria hageal 01:28:39 l reflux Christopher disease Gastroesop (disorder) hageal reflux disease (disorder) Active Problem 06/17/2016 [facility] Limping Problem Active 2016-06-17 Wilfrid mendy (finding) 01:28:39 l Limping [place] (finding) Active Problem 06/17/2016 [facility] Cough Problem Active 2016-06-17 Memor ia (finding) 01:28:39 l Cough [place] (finding) Active Problem 06/17/2016 [facility] Diabetes Problem Active 2016-06-17 Mem oria mellitus 01:28:39 l (disorder) Diabetes He rmann mellitus (disorder) Active Problem 06/17/2016 [facility] Pure Problem Active 2016-06-17 Memor ia hyperchole 01:28:39 l sterolemia Pure Mckinley n (disorder) hyperchole sterolemia (disorder) Active Problem 06/17/2016 [facility] CAROTID Diagnosis Active 2012-05-10 Me moria SINUS 21:43:00 l SYNDROME CAROTID Jackelyn nn SINUS SYNDROME Active [facility] EMBOLISM Diagnosis Active 2016-06-20 M emoria AND 21:57:00 l THROMBOSIS EMBOLISM He rmann OF AND ARTERIES THROMBOSIS OF T OF ARTERIES OF T Active [facility] ATHSCL Diagnosis Active 2016-06-20 Mem oria ANVIK 21:57:00 l ARTERIES ATHSCL Mckinley n OF EXTRM W ANVIK INTRMT ARTERIES OF EXTRM W INTRMT Active [facility] Transient Problem Resolve 2010-2016-06-17 2016-06-17 Memoria ischemic d 1- 01:28:39 01:28:39 l attack 00:00: Christopher (disorder) Transient 00 ischemic attack (disorder) Resolved 02/13/2010 Problem 06/17/2016 [facility] Allergies, Adverse Reactions, Alerts Allergy Allergy Status Severity Reaction(s) Onset Inactive Treating Comm ents Source Name Type Date Date Clinician Amoxicil Propensi Active Other (See Chest [place] spike-Pot ty to Comments) 2-17 pain Method i Clavulan adverse 00:00: st ate reaction 00 s to drug Iodine Propensi Active [place] ty to 2-16 Methodi adverse 00:00: st reaction 00 s to drug Levoflox Propensi Active [place] acin ty to 2-16 Methodi adverse 00:00: st reaction 00 s to drug No Known No Known Active Memori a Drug Drug l Allergie Allergie Mckinley n s s iodine iodine Active Memoria l [place] Bactrim Bactrim Active [facility] mike White Metformi Adverse Active Info Not [facility] HCl Reaction Available [facility] Levaquin Adverse Active Info Not [facility] Reaction Available [facility] Family History Family Member Diagnosis Comments Start Date Stop Date Source Unknown Family Family History 2013-04-03 2013-04-03 Sissy al Christopher Member 13:30:33 13:30:33 Social History Social Habit Start Date Stop Date Quantity Comments Source Tobacco use and 2017-04-04 2017-04-04 Never used [place] ethodist exposure 00:00:00 00:00:00 Social History 2016-06-08 2016-06-08 Mary Ibrahim ermann 12:53:59 12:53:59 Sex Ass[birth year] At [birth year] [place] ethodist 00:00:00 00:00:00 Smoking Status Start Date Stop Date Source Never smoker [place] Methodis Medications Ordered Filled Start Stop Current Ordering Indication Dosage Frequency Signature Comments Components Source Medication Medication Date Date Medication? Clinician (SIG) Name Name Losartan Losartan Yes Na Tripp 1 tablet [facility] Potassium Potassium 6-22 [facility] 00:[facility]: Memoria 00 [facility] Flonase Flonase Yes Na Tripp [address] [facility] 8-29 each [facility] aspirin Yes 81mg QD Take 81 mg [place] (ECOTRIN) 2-20 by mouth Method i 81 MG 11:42: daily. st enteric 42 coated tablet citalopram Yes 10mg QD Take 10 mg [place] (CeleXA) 10 2-20 by mouth Meth alberto MG tablet 11:42: daily. st 42 losartan-hy Yes 2{tbl} QD Take 2 [place] drochloroth 2-20 tablets by Ia thodi iazide 11:42: mouth st (HYZAAR) 42 daily. [...] daily. st 42 pentoxifyll 2018-0 Yes 400mg [id number] Take 400 [place] ine 2-20 [id number] mg by Methodi (TRENTal) 11:42: 3D mouth 3 st 400 mg CR 42 (three) tablet times a day with meals. cetirizine 2017-0 Yes 10mg QD Take 10 mg H [...] 2018-0 Yes 10mg QD Take 10 mg [place] (GLUCOTROL) 2-20 by mouth Meth alberto 10 MG 11:42: daily. st tablet 42 benzonatate 2018-0 Yes 100mg [id number] Take 1 [place] (TESSALON) 2-20 [id number] capsule Methodi 100 MG 00:00: 3D ([address] capsule 00 total) by mouth 3 (three) times a day as needed for cough for up to 60 doses. Ferrlecit 2016- No Notes: Memori a 5-01 (sodium l 13:55: ferric gluconate complex (elemental iron) 62.5 mg/5 ml INJ) "Limited stability. Use immediatel y after admixture" (Same as: Ferrlecit) MEDICATION WASTE Product Size: 62.5 mg Product Wasted: ___ mg Timolol 5 No Notes: Memori a MG/ML 4-30 (Same As: l Ophthalmic 22:00: Timoptic, rmann Solution 00 Betimol) Brimonidine No Notes: Wilfrid mendy tartrate 4-30 Non-formul l 1.5 MG/ML 14:00: nito. (Same [facility] Ophthalmic as: Solution Alphagan-P ) Atropine No 0.5 [...] latanoprost No Notes: Wilfrid mendy 0.05 MG/ML 4-30 Keep l Ophthalmic 02:00: refrigerat H ermann Solution 00 ed. (Same as:Xalatan ) Opened bottle may be stored at room temperatur e for 6 weeks Ferrlecit No Notes: Memori a 4-29 (sodium l 18:45: ferric gluconate complex (elemental iron) 62.5 mg/5 ml INJ) "Limited stability. Use immediatel y after admixture" (Same as: Ferrlecit) MEDICATION WASTE Product Size: 62.5 mg Product Wasted: ___ mg Plavix No Notes: Memoria 4-29 (Same As: l 14:00: Plavix) [place] 00 Hydrochloro No 1 tab, Wilfrid mendy thiazide 25 06-10 Route: PO, l MG / 14:00: Drug Form: Christopher Losartan 00 TAB, Potassium Dosing 100 MG Oral Weight Tablet 66.818, kg, Daily, Start date: 06/10/16 9:00:00 CDT, Duration: 30 day, Stop date: 07/09/16 9:00:00 CDT Lasix No Notes: Memoria 4-28 (Same as: l 14:00: Lasix) Citalopram No 10 mg, 1 Mem oria - tab, l 14:00: Route: PO, [place] 00 Drug form: TAB, Daily, Dosing Weight 66.818, kg, Start date: 06/10/16 9:00:00 CDT, Duration: 30 day, Stop date: 07/09/16 9:00:00 CDT hydrochloro No Notes: Wilfrid mendy thiazide 25 06-10 (Same as: l mg oral 14:00: Hydrodiuri Herm shannan tablet 00 l) With food. Cozaar No Notes: Memoria - (Same as: l 14:00: Cozaar) sodium No [...] No Notes: Memor ia 0.5 MG Oral 06-10 With food l Tablet 04:18: or milk [place] [Xanax] 00 (Same as: Xanax) Symbicort No Notes: Memori a 160/4.5 - (Same as: l inhalation 02:00: Symbicort) H ermann aerosol 00 WASTE: with Aerosol - adapter Return to Pharmacy atorvastati No Notes: Wilfrid mendy n 06-10 (Same As: l 02:00: Lipitor) Christopher insulin, No Notes: Memoria isophane 06-10 Roll in l 02:00: palms of Christopher 00 hands gently; Do not shake vigorously [...] NOT capsular SHAKE) antigen before diphtheria administra [id number] tion. protein (Same as: conjugate Prevnar vaccine / 13) Streptococc us pneumoniae serotype 14 capsular antigen diphtheria [id number] protein conjugate vaccine / Streptococc us pneumoniae serotype 18C capsular antigen d Lovenox No Notes: Memoria 06-09 (Same as: l 11:00: Lovenox) Insulin, No Notes: Memoria Aspart, 06-09 Roll in l Human 02:44: palms of [place] 00 hands gently; Do not shake vigorously . (Same as: NovoLOG) "single patient use only" WASTE: F/P - Black; E - Municipal Trash Bin Stable for 28 days at room temperatur e. Expires in days from ____Date Dextrose No 25 gm, 50 Wilfrid mendy 50% Syringe 4-27 mL, Route: l 02:44: IVP, Drug Form: INJ, Dosing Weight 66.818, kg, PRN, PRN Blood Glucose Results, Start date: 06/08/16 21:44:00 CDT, Duration: 30 day, Stop date: 07/08/16 21:43:00 CDT Glucagon No 1 mg, Memoria 06-09 Route: IM, l 02:44: Drug form: PDR/INJ, PRN, Dosing Weight 66.818, kg, PRN Blood Glucose Results, Start date: 06/08/16 21:44:00 CDT, Duration: 30 day, Stop date: 07/08/16 21:43:00 CDT Labetalol No Notes: Memori a - (Same as: l 19:46: Normodyne, Trandate) Push over 2 minutes Give bolus over 2-3 minutes. Hydralazine No Notes: Wilfrid mendy -26 (Same as: l 19:45: Apresoline ) Push over 5 minutes Hydralazine No Notes: Wilfrid mendy 4-26 (Same as: l 18:51: Apresoline ) Push over 5 minutes glycopyrrol No Route: IV, Memoria ate (ANES) 06-08 Drug form: l 16:45: INJ, ONCE, Stop date: 06/08/16 11:45:00 CDT neostigmine No Route: IV, Memoria (ANES) 06-08 Drug form: l 16:45: INJ, ONCE, Stop date: 06/08/16 11:45:00 CDT ondansetron No Route: IV, Memoria (ANES) 4- Drug form: l 16:44: INJ, ONCE, Stop date: 06/08/16 11:44:00 CDT sodium No 1,000 mL, Memori a chloride 06-08 Rate: 100 l 0.9% 1000 16:33: ml/hr, [...] form: l (ANES) 16:14: INJ, Start Jackelyn date: 06/08/16 11:14:00 CDT, Stop date: 06/08/16 [...] 06-08 Drug form: l 15:54: INJ, ONCE, Stop date: 06/08/16 10:54:00 CDT acetaminoph No Route: IV, Memoria en (ANES) 06-08 Drug form: l (ANES) 15:45: INJ, Start Jackelyn date: 06/08/16 10:45:00 CDT, Stop date: 06/08/16 11:45:00 CDT famotidine No Route: IV, M emoria (ANES) 06-08 Drug form: l 15:39: INJ, ONCE, [place] 00 Stop date: 06/08/16 10:39:00 CDT methylPREDN No Route: IV, Memoria ISolone 06-08 Drug form: l (ANES) 15:39: INJ, ONCE, Jackelyn Stop date: 06/08/16 10:39:00 CDT diphenhydrA No Route: IV, Memoria MINE (ANES) 06-08 Drug form: l 15:39: INJ, ONCE, Christopher 00 Stop date: 06/08/16 10:39:00 CDT norepinephr [...] as: l / 14:07: Duoneb) Ipratropium 00 [place] 0.167 MG/ML Inhalant Solution Calcium No 1,000 mL, Memor ia Chloride 06-08 Rate: 25 l 0.0014 14:07: ml/hr, [place] MEQ/ML / 00 Infuse Potassium over: 40 Chloride hr, Route: 0.004 IV, Dosing MEQ/ML / Weight Sodium 66.818 kg, Chloride Total 0.103 Volume: MEQ/ML / 1,000, Sodium Start Lactate date: 0.028 06/08/16 MEQ/ML 9:07:00 Injectable CDT, Solution Duration: 1 day, Stop date: 06/09/16 9:06:00 CDT Vancomycin No 2000 mg: Me moria 06-08 infuse l 12:00: over 2.5 hours MEDICATION [...] 06-03 Drug form: l 17:24: INJ, ONCE, Stop date: 06/03/16 12:24:00 CDT midazolam No Route: IV, Me moria (ANES) 06-03 Drug form: l 17:24: SOLN, [place] 00 ONCE, Stop date: 06/03/16 12:24:00 CDT famotidine No Route: IV, M emoria (ANES) 06-03 Drug form: l 17:24: INJ, ONCE, [place] 00 Stop date: 06/03/16 12:24:00 CDT vancomycin No Route: IV, M emoria (ANES) 4 Drug form: l (ANES) 17:00: INJ, Start [...] CDT, Stop date: 06/03/16 12:35:00 CDT Insulin 0 No 2 unit, Memoria regular 06-03 Route: [...] day, Stop date: 07/03/16 10:40:00 CDT Vancomycin 2016-0 No 2000 mg: Me moria 4- infuse l 14:00: over 2.5 hours MEDICATION WASTE Product Size: 1000 mg Product Wasted: ___ mg Ancef No Notes: Memoria 4-13 Same as: l 14:00: Ancef [place] 00 Alendronic Yes 70 mg = 1 Me moria acid 70 MG 4-13 tab, PO, 0 l Oral Tablet 13:59: Refill(s) H [place] 00 Vitamin B12 Yes 1,000 Memor ia 1000 mcg 4-13 microgram l oral tablet 13:58: = 1 tab, He rmann 00 PO, Daily, 0 Refill(s) citalopram Yes 10 mg = 1 Me moria 10 mg oral 4-13 tab, PO, l tablet 13:58: Daily, 0 Christopher 00 Refill(s) GlipiZIDE Yes 10 mg = 1 Mem oria XL 10 mg 4-13 tab, PO, l oral 13:58: Daily, 0 Christopher tablet, 00 Refill(s) extended release Potassium Yes 10 mEq = 1 Me moria Chloride 10 4-13 tab, PO, l MEQ 13:57: BID, 0 [place] Extended 00 Refill(s) Release Tablet [Klor-Con] pentoxifyll Yes 400 mg = 1 Memoria ine 400 mg 4-13 tab, PO, l oral 13:57: TID, 0 [place] tablet, 00 Refill(s) extended release Losartan Yes (Active) Wilfrid mendy Potassium 2-19 l TABS 13:30: 33 Clopidogrel Yes (Active) M emoria Bisulfate 2-19 l 75 MG Oral 13:30: [place] Tablet 33 Aspirin Yes (Active) Memor ia TABS 2-19 l 13:30: 33 Metoprolol Yes (Active) Me moria Tartrate 2-19 l TABS 13:30: [place] 33 Baclofen Yes (Active) Wilfrid mendy TABS 2-19 l 13:30: 33 GlyBURIDE-M Yes (Active) M emoria etFORMIN 2-19 l TABS 13:30: 33 Brimonidine Yes (Active) M emoria Tartrate 2-19 l SOLN 13:30: 33 Atorvastati Yes (Active) M emoria n Calcium 2-19 l TABS 13:30: Christopher 33 Timolol Yes (Active) Memor ia Maleate 0.5 2-19 l % 13:30: [place] Ophthalmic 33 Gel Forming Solution Xalatan Yes (Active) Memor ia SOLN 2-19 l 13:30: Christopher 33 Citalopram Yes (Active) Me moria Hydrobromid 2-19 l e TABS 13:30: Christopher 33 HydrALAZINE Yes (Active) M emoria HCl TABS 2-19 l 13:30: [place] 33 isosorbide No Carol 20 mg, 1 M emoria dinitrate 3-14 Rajagopala tab, l 18:00: s Alphonso Route: PO, nagel 00 Drug form: TAB, TID, Dosing [...] l oral tablet 16:02: TID, PRN, H magnusann 31 30 tab, Itching, Substituti on Allowed, TAB aspirin 325 2012-0 Yes Taso 325 mg, 1 M emoria mg tablet, 3-14 Mougouris tab, PO, l enteric 16:02: QAM, 30 [place] coated 25 tab, Substituti on Allowed, ECTAB acetaminoph Yes Taso 1 tab, PO, Memoria en-hydrocod 3-14 Mougouris Q4H, PRN, l one 325 16:02: 30 tab, [place] mg-5 mg 22 Pain Score oral tablet 1-3, Substituti on Allowed, Maintenanc e, TAB isosorbide No Carol 20 mg, 1 M emoria dinitrate 3-14 Rajagopala tab, l 02:00: s Alphonso Route: PO, Her nagel 00 Drug form: TAB, BID, Dosing Weight 69.091, kg, Start date: 04/25/12 21:00:00, Duration: 30 day, Stop date: 05/25/12 17:00:00 Crestor 2012- No Carol 20 mg, 2 Wilfrid mendy 3-14 [place] tab, l 02:00: s Alphonso Route: PO, Her nagel 00 Drug form: TAB, QPM, Dosing Weight 69.091, kg, Start date: 04/25/12 21:00:00, Duration: 30 day, Stop date: 05/25/12 17:00:00 methylPREDN No Kowalski Lissett 20 mg, 0.5 Memoria ISolone 3-14 Cottrell mL, Route: l 01:20: IV, Drug [place] 00 form: INJ, ONCE, Start date: 04/25/12 20:20:00, Stop date: 04/25/12 20:20:00 simvastatin 2012-0 No Kowalski Lissett 10 mg, 1 Memoria 3-13 [place] tab, l 02:00: Route: PO, Christopher 00 Drug form: TAB, Bedtime, Dosing Weight 69.091, kg, Start date: 04/24/12 21:00:00, Duration: 30 day, Stop date: 05/23/12 21:00:00 Benadryl 2012-0 No Sanjiv 25 mg, 1 Memor ia 3-12 Gnosticism tab, l 09:47: Shant Route: PO, Herm shannan 00 Drug form: TAB, TID, Dosing Weight [...] l oral liquid 19:24: n PO, Drug He rm form: LIQ, Q4H, Dosing Weight 69.091, kg, Start date: 04/22/12 14:24:00, Duration: 30 day, Stop date: 05/22/12 12:00:00 potassium 2012-0 No Papo 20 mEq, M emoria chloride 3-10 Terry 100 mL, l 15:00: Route: IVPB, Drug form: INJ, Q2H, Start date: 04/22/12 10:00:00, Duration: 2 doses or times, Stop date: 04/22/12 12:00:00 Geodon 2012-0 No Erasmo 10 mg, Memoria 3-10 Terminella Route: IM, l 06:52: Drug form: [place] 00 PDR/INJ, Q8H, PRN Anxiety, Start date: 04/22/12 0:52:00, Duration: 30 day, Stop date: 05/22/12 0:51:00 aspirin 325 2012-0 No Luis 325 mg, 1 Memoria mg tablet, 3 Guru tab, l enteric 15:00: Marcin Route: PO, He rmann coated 00 Drug form: ECTAB, QAM, Start date: 04/21/12 9:00:00, Duration: 30 day, Stop date: 05/20/12 9:00:00 famotidine 2012-0 No Erasmo 20 mg, 1 Me moria 3-09 Terminella tab, l 15:00: Route: PO, [place] Drug form: TAB, Daily, Dosing Weight 69.091, kg, Start date: 04/21/12 9:00:00, Duration: 30 day, Stop date: 05/20/12 9:00:00 niCARdipine No Erasmo IV, Start Memoria 04-20 Terminella date: l 23:35: 04/20/12 Christopher 00 17:35:00, Duration: 30, 200 ml, 69.091 Sodium No Renee 1,000 mL, Memor ia Chloride 04-20 Abousslema Rate: 70 l 0.9% IV 21:38: n ml/hr, Christopher 1,000 mL 00 Infuse over: 14.3 hr, Route: IV, kg, Total Volume: 1,000, Start date: 04/20/12 15:38:00, Stop date: 05/20/12 15:37:00 Tylenol No Luis 650 mg, 1 Mem oria 3-08 Guru supp, l 21:36: Marcin Route: ID, Jackelyn nn 00 Drug form: SUPP, Q4H, PRN Fever, Start date: 04/20/12 15:36:00, Duration: 30 day, Stop date: 05/20/12 15:35:00 Tylenol No Luis 650 mg, 2 Mem oria [...] Terry mL, Route: l 21:27: IV, Drug Christopher 00 form: INJ, Q2H, PRN Pain Score 7-10, Start date: 04/20/12 15:27:00, Duration: 30 day, Stop date: 05/20/12 15:26:00 morphine No Luis 2 mg, 1 Wilfrid mendy Sulfate 3-08 Guru mL, Route: l 21:24: Marcin IV, Drug [place] 00 form: INJ, Q2H, PRN Pain Score 6-10, Start date: 04/20/12 15:24:00, Duration: 30 day, Stop date: 05/20/12 15:23:00 acetaminoph 0 No Luis 2 tab, Me moria en-hydrocod [...] mL, Route: l 21:19: Marcin IV, Drug form: INJ, Q6H, PRN Other [...] 1 day, Stop date: 04/21/12 9:58:00 losartan 2012-0 No Taso 100 mg, 2 Wilfrid mendy 3-08 Mougouris tab, l 15:00: Route: PO, [place] 00 Drug form: TAB, Daily, Dosing Weight 68.182, kg, Start date: 04/20/12 9:00:00, Duration: 30 day, Stop date: 05/19/12 9:00:00 heparin No Taso 5,000 Memoria 3-08 Mougouris unit, 1 l 03:00: mL, Route: Christopher 00 SUB-Q, Drug form: INJ, Q12H, Dosing Weight 68.182, kg, Start date: 04/19/12 21:00:00, Duration: 30 day, Stop date: 05/19/12 9:00:00 latanoprost No Taso 1 drp, Wilfrid mendy ophthalmic 3-08 Mougouris Route: l 0.005% 03:00: OPTH, Christopher solution 00 Bedtime, Drug form: SOLN, Start date: 04/19/12 21:00:00, Duration: 30 day, Stop date: 05/18/12 21:00:00 atropine No Papo 0.5 mg, 5 Memoria 3-07 Terry mL, Route: l 23:18: IVP, Drug [place] 00 form: INJ, PRN, PRN Bradycardi a, Start date: 04/19/12 17:18:00, Duration: 30 day, Stop date: 05/19/12 18:17:00 nitroglycer No Papo 0.4 mg, 1 Memoria in 0.4 mg 307 Terry tab, l sublingual 23:18: Route: SL, H ermann tablet 00 Drug form: TAB, Q5Min, PRN Chest Pain, Start date: 04/19/12 17:18:00, Duration: 30 day, Stop date: 05/19/12 18:17:00 vancomycin 0 No Luis 1 gm, 200 Memoria 3-07 Guru mL, Route: l 23:00: Marcin IVPB, Drug Jackelyn nn 00 form: INJ, ONCALL, Start date: 04/19/12 17:00:00, Duration: 1 day, Stop date: 04/20/12 16:59:00 cefazolin + No Luis 1 gm, Mem oria Sodium 307 Guru Route: l Chloride 23:00: Marcin IVPB, Mckinley n 0.9% IV 100 00 ONCALL, mL Start date: 04/19/12 17:00:00, Duration: 1 day, Stop date: 04/20/12 16:59:00 Lopressor 2012-0 No Taso 75 mg, 3 Wilfrid mendy 3-07 Mougouris tab, l 23:00: Route: PO, [place] Drug form: TAB, BID, Dosing Weight 68.182, kg, Start date: 04/19/12 17:00:00, Stop date: 05/19/12 9:00:00 timolol 2012-0 No Taso 1 drp, Memoria ophthalmic 3-07 Mougouris Route: l 0.5% 23:00: BOTH EYES, Christopher solution 00 QPM, Drug form: SOLN, Start date: 04/19/12 17:00:00, Stop date: 05/18/12 17:00:00 brimonidine 2012-0 No Taso 1 drp, Wilfrid mendy ophthalmic 3-07 Mougouris Route: l 0.15% 23:00: OPTH, BID, Mckinley n solution 00 Drug form: SOLN, Start date: 04/19/12 17:00:00, Stop date: 05/19/12 9:00:00 baclofen 2012-0 No Taso 10 mg, 1 Memor ia 3-07 Mougouris tab, l 23:00: Route: PO, [place] 00 Drug form: TAB, BID, Dosing Weight 68.182, kg, Start date: 04/19/12 17:00:00, Duration: 30 day, Stop date: 05/19/12 9:00:00 aspirin 325 2012-0 No Luis 325 mg, 1 Memoria mg tablet 3-07 Guru tab, l 22:44: Marcin Route: PO, Jackelyn nn Drug form: TAB, Daily, Start date: 04/19/12 16:44:00, Duration: 30 day, Stop date: 05/19/12 9:00:00 Ativan 2012-0 No Taso 1 mg, 0.5 Memori a 3-07 Mougouris mL, Route: l 18:50: INJ, Drug [place] form: INJ, Q6H, Dosing Weight 68.182, kg, PRN as needed for anxiety, Start date: 04/19/12 12:50:00, Duration: 30 day, Stop date: 05/19/12 12:49:00 clonidine 2012- No Taso 0.1 mg, 1 Mem oria 3-07 Mougouris tab, l 18:50: Route: PO, [place] 00 Drug form: TAB, Q8H, Dosing Weight 68.182, kg, PRN Hypertensi on, Start date: 04/19/12 12:50:00, Duration: 30 day, Stop date: 05/19/12 12:49:00 Dextrose 2012-0 No Taso 25 gm, 50 Wilfrid mendy 50% Syringe 3- Mougouris mL, Route: l 18:49: IVP, Drug [place] Form: INJ, Dosing Weight 68.182, kg, PRN, PRN Blood Glucose Results, Start date: 04/19/12 12:49:00, Duration: 30 day, Stop date: 05/19/12 13:48:00 glucagon 2012- No Taso 1 mg, Memoria 3-07 Mougouris Route: IM, l 18:49: Drug form: Christopher 00 PDR/INJ, PRN, Dosing Weight 68.182, kg, PRN Blood Glucose Results, Start date: 04/19/12 12:49:00, Duration: 30 day, Stop date: 05/19/12 13:48:00 insulin 2012- No Taso 1 unit, Memoria aspart 3- Mougouris 0.01 mL, l 18:49: Route: Christopher 00 SUB-Q, Drug form: SOLN, TID-Before Meals, Dosing Weight 68.182, kg, PRN Blood Glucose Results, Start date: 04/19/12 12:49:00, Duration: 30 day, Stop date: 05/19/12 12:48:00 Symbicort 2012- No Taso 2 Memoria 160/4.5 3-07 Mougouris inhalation l inhalation 18:47: , Route: Her nagel aerosol 00 INHALATION with , Drug adapter Form: AERO/A, Dosing Weight 68.182, kg, PRN, PRN Shortness of breath, Start date: 04/19/12 12:47:00, Duration: 30 day, Stop date: 05/19/12 13:46:00, sob aspirin 325 2012-0 No Luis 325 mg, M emoria mg tablet 04-19 Guru Route: PO, l 18:25: Marcin Drug form: Jackelyn nn 00 TAB, ONCE, Dosing Weight 68.182, kg, Priority: STAT, Start date: 04/19/12 12:25:00, Stop date: 04/19/12 12:25:00 hydrALAZINE No Luis 20 mg, 1 Memoria 04-19 Guru mL, Route: l 12:07: Marcin IV, Drug [place] 00 form: INJ, Q6H, Dosing Weight 68.182, kg, PRN Elevated BP, Start date: 04/19/12 6:07:00, Duration: 30 day, Stop date: 05/19/12 6:06:00, SBP >165 brimonidine Yes Taso 1 drp, Wilfrid mendy ophthalmic - Mougouris OPTH, BID, l 0.15% 08:51: 5 ml, [place] solution 03 Substitute Allowed, SOLN latanoprost Yes [...] BID, 60 l mg-500 mg 08:42: tab, Christopher oral tablet 12 Substituti on Allowed, Maintenanc e, TAB baclofen Yes Taso 10 mg, PO, Mem oria 04-19 Mougouris BID, l 08:38: Substituti [place] 01 on Allowed Saline No Papo 5 ml, Memori a Flush 0.9% 04-19 Terry Route: l 06:44: IVP, Drug Form: INJ, Dosing Weight 68.182, kg, PRN, PRN Line Flush, Start date: 04/19/12 0:44:00, Duration: 30 day, Stop date: 05/19/12 1:43:00 acetaminoph No Papo 650 mg, 2 Memoria en 04-19 Terry tab, l 06:44: Route: PO, [place] 00 Drug form: TAB, Q4H, Dosing Weight [...] Luis 1,000 mL, Wilfrid mendy Chloride 04-19 Guur Rate: 40 l 0.9% IV 06:44: Marcin ml/hr, Mckinley n 1,000 mL 00 Infuse over: 25 hr, Route: IV, kg, Total Volume: 1,000, Start date: 04/19/12 0:44:00, Duration: 30 day, Stop date: 05/19/12 0:43:00 Benadryl No George 50 mg, Wilfrid mendy 3-07 Mac Route: l 03:13: IVP, ONCE, Dosing Weight 68.182, kg, Priority: STAT, Start date: 04/18/12 21:13:00, Stop date: 04/18/12 21:13:00 SoluMedrol No George 125 mg, M pura 04-19 Mac Route: l 03:12: IVP, ONCE, Dosing Weight 68.182, kg, Priority: STAT, Start date: 04/18/12 21:12:00, Stop date: 04/18/12 21:12:00 Saline No Papo 5 mL, Memori a Flush 0.9% 04-19 Terry Route: l 03:05: IVP, Drug Form: INJ, Dosing Weight 68.182, kg, Q8H, PRN Line Flush, Start date: 04/18/12 21:05:00, Duration: 30 day, Stop date: 05/18/12 21:04:00, Administer at least once every 8 hoursAdmin ister at least once every 8 hours Klor-Con Klor-Con Yes Na Tripp [address] [facility] M10 M10 with food [facility] Benzonatate Benzonatate Yes Na Tripp [address] [facility] as needed [facility] Plavix Plavix Yes Na Tripp [address] [facility] Metoprolol Metoprolol Yes Na Tripp [address] [facility] Tartrate Tartrate with food Anuja kes - [facility] Pantoprazol Pantoprazol Yes Na Tripp [address] [facility] e Sodium e Sodium [facility] Aspir-81 Aspir-81 Yes Na Tripp [address] [facility] Alendronate Alendronate Yes Na Tripp [address] [facility] Sodium Sodium [facility] Cetirizine Cetirizine Yes Na Tripp TAKE ONE [facility] HCl HCl TABLET BY [facility] - MOUTH ONCE Memoria DAILY [facility] Citalopram Citalopram Yes Na Tripp take one [facility] Hydrobromid Hydrobromid tablet by [facility] - e e mouth once [facility] daily [facility] Hyalok Vargas Yes Na Tripp [address] [facility] Atorvastati Atorvastati Yes Na Tripp [address] [facility] n Calcium n Calcium at bedtime [facility] Ketoconazol Ketoconazol Yes Na Tripp [address] [facility] e e applicatio [facility] n to Memoria affected l area [facility] Triamcinolo Triamcinolo Yes Na Tripp [address] [facility] ne ne applicatio [facility] - Acetonide Acetonide n to Memor ia affected l [facility] Metformin Metformin Yes Na Tripp [address] [facility] HCl HCl with a [facility] - meal [facility] Pentoxifyll Pentoxifyll Yes Na Tripp [address] [facility] ine ER ine ER with meals [facility] Potassium Potassium Yes Na Tripp TAKE ONE [facility] Chloride Chloride TABLET BY Anuja kes - Mey ER Mey ER MOUTH Memoria TWICE l DAILY [facility] GlipiZIDE GlipiZIDE Yes Na Tripp [address] [facility] Hydrochloro Hydrochloro Yes Na Tripp TAKE [address] [facility] thiazide thiazide TABLET BY Anuja kes - MOUTH ONCE Memoria DAILY l [facility] Immunizations Ordered Immunization Filled Immunization Date Status Commen ts Source Name Name Pneumococcal 2017-04-02 Completed [place] Conjugate 13-Valent 00:00:00 Metho dist Vital Signs Vital Name Observation Time Observation Value Comments Source Heart Rate 2016-06-14 16:00:00 [facility] [place] Respitory Rate 2016-06-14 16:00:00 [facility] [place] Temperature Oral (F) 2016-06-14 16:00:00 98.4 F [facility] [place] Systolic (mm Hg) 2016-06-14 16:00:00 Wilfrid rial [place] Diastolic (mm Hg) 2016-06-14 16:00:00 Mem orial [place] Systolic (mm Hg) 2016-06-14 12:00:00 Wilfrid rial [place] Diastolic (mm Hg) 2016-06-14 12:00:00 Mem orial [place] Respitory Rate 2016-06-14 12:00:00 [facility] [place] Heart Rate 2016-06-14 12:00:00 [facility] [place] Temperature Oral (F) 2016-06-14 12:00:00 98.8 F [facility] [place] Systolic (mm Hg) 2016-06-14 07:48:00 Wilfrid rial [place] Diastolic (mm Hg) 2016-06-14 07:48:00 Mem orial [place] Respitory Rate 2016-06-14 07:48:00 [facility] [place] Heart Rate 2016-06-14 07:48:00 [facility] [place] Temperature Oral (F) 2016-06-14 07:48:00 98.2 F [facility] Height 2016-06-08 11:57:00 152.4 cm [facility] [place] Weight 2016-06-08 11:57:00 [facility] [place] BMI Calculated 2016-06-08 11:57:00 [facility] [place] Respitory Rate 2016-06-03 23:00:00 [facility] [place] Systolic (mm Hg) 2016-06-03 23:00:00 Wilfrid rial [place] Diastolic (mm Hg) 2016-06-03 23:00:00 Mem orial [place] Systolic (mm Hg) 2016-06-03 22:00:00 Wilfrid rial [place] Diastolic (mm Hg) 2016-06-03 22:00:00 Mem orial [place] Systolic (mm Hg) 2016-06-03 21:30:00 Wilfrid rial [place] Diastolic (mm Hg) 2016-06-03 21:30:00 Mem orial [place] Respitory Rate 2016-06-03 18:00:00 [facility] [place] Respitory Rate 2016-06-03 17:45:00 [facility] [place] Temperature Oral (F) 2016-05-26 13:36:00 98.4 F [facility] [place] Heart Rate 2016-05-26 13:36:00 [facility] [place] Weight 2016-05-26 13:27:00 [facility] BMI Calculated 2016-05-26 13:27:00 [facility] [place] Height 2016-05-26 13:27:00 152.4 cm [facility] [place] Systolic (mm Hg) 2012-04-26 19:50:00 Wilfrid rial [place] Diastolic (mm Hg) 2012-04-26 19:50:00 Mem orial [place] Systolic (mm Hg) 2012-04-26 17:15:00 Wilfrid rial [place] Diastolic (mm Hg) 2012-04-26 17:15:00 Mem orial [place] Temperature Oral (F) 2012-04-26 17:00:00 97.1 F [facility] [place] Diastolic (mm Hg) 2012-04-26 17:00:00 Mem orial [place] Systolic (mm Hg) 2012-04-26 17:00:00 Wilfrid rial [place] Respitory Rate 2012-04-26 17:00:00 [facility] al [place] Heart Rate 2012-04-26 17:00:00 [facility] [place] Respitory Rate 2012-04-26 13:00:00 [facility] [place] Heart Rate 2012-04-26 13:00:00 [facility] [place] Temperature Oral (F) 2012-04-26 13:00:00 97.9 F [facility] [place] Respitory Rate 2012-04-26 09:16:00 [facility] al [place] Heart Rate 2012-04-26 09:16:00 [facility] [place] Temperature Oral (F) 2012-04-26 09:16:00 98.3 F [facility] [place] Weight 2012-04-20 05:54:00 [facility] [place] Height 2012-04-19 01:59:00 152.4 cm [facility] [place] Weight 2012-04-19 01:59:00 [facility] [place] Procedures Procedure Date / Time Performed Performing Clinician Sourc e Bypass [facility] [place] Bypass<sup>1</sup> [facility] Herm shannan Carotid endarterectomy [facility] Placement of stent in [facility] ermann cardiac conduit Stent placement [facility] [place] Plan of Care Planned Activity Planned Date Details Comments Source Future Scheduled 2020-09-13 INFLUENZA VACCINE [place] [facility] 00:00:00 [code = INFLUENZA VACCINE] Future Scheduled 2018-04-02 65+ PNEUMOCOCCAL [place] [facility] 00:00:00 VACCINE (2 of 2 - PPSV23) [code = 65+ PNEUMOCOCCAL VACCINE (2 of 2 - PPSV23)] Future Scheduled 1988 SHINGLES VACCINES (#1) [place] [facility] 00:00:00 [code = SHINGLES VACCINES (#1)] Future Scheduled 1954 COVID-19 VACCINE (1) Rebecca amanda [facility] 00:00:00 [code = COVID-19 VACCINE (1)] Encounters Start End Encounter Admission Attending Care Care Encounter Source Date/Time Date/Time Type Type Clinicians Facility Department ID 2020-05-15 2020-05-15 [id number] 2020-05-15 2020-05-15 Outpatient [facility] [id number] [facility] 2020-05-01 2020-05-01 Outpatient [facility] [id number] [facility] 2020-04-13 2020-04-13 Outpatient [facility] [id number] [facility] 2020-04-07 2020-04-07 Out[facility] [id number] [facility] 2020-03-13 2020-03-13 Outpatient [facility] [id number] [facility] 2020-03-05 2020-03-05 Outpatient [facility] [id number] [facility] 2020-03-05 2020-03-05 Outpatient [facility] [id number] [facility] 2020-02-28 2020-02-28 Outpatient [facility] [id number] [facility] 2020-02-28 2020-02-28 Outpatient [facility] [id number] [facility] 2020-02-27 2020-02-27 Outpatient [facility] [id number] [facility] 2020-02-20 2020-02-20 Outpatient [facility] [id number] [facility] 2019-11-06 2019-11-06 Outpatient [facility] [id number] [facility]00 [facility] Outpati ent Clinics 2019-08-28 2019-08-28 [facility] [id number] [facility] 09:42:00 09:42:00 [facility] Medicine Outpati ent Clinics 2019-08-05 2019-08-05 [facility] [id number] [facility] 11:00:00 11:00:00 [facility] [employer] [facility] Medicine Outpati ent Clinics 2019-07-29 2019-07-29 [facility] [id number] [facility] 11:43:00 11:43:00 t [employer] [facility] Medicine Outpati ent Clinics 2019-06-17 2019-06-17 [facility] [id number] [facility] 10:40:00 10:40:00 [facility] Medicine Outpati ent Clinics 2019-06-12 2019-06-12 [facility] [id number] [facility] 13:20:00 13:20:00 [facility] Medicine Outpati ent Clinics 2019-06-11 2019-06-11 [facility] [id number] [facility] 10:41:00 10:41:00 [facility] [employer] [facility] Medicine Outpati ent Clinics 2019-06-05 2019-06-05 [facility] [id number] 09:20:00 09:20:00 [facility] [employer] [facility] Medicine Outpati ent Clinics 2019-06-03 2019-06-03 [facility] [id number] 09:27:00 09:27:00 t [employer] [facility] Medicine Outpati ent Clinics 2019-04-09 2019-04-09 [facility] [id number] [facility] 08:20:00 08:20:00 t [employer] [facility] Medicine Outpati ent Clinics 2019-04-02 2019-04-02 [facility] [id number] 07:56:00 07:56:00 t Cheraw Cheraw 9GAG Luke s - Drive [facility] Medicine l Medicine Outpati ent Clinics 2019-03-12 2019-03-12 [facility] [id number] [facility] 10:53:00 10:53:00 t Cheraw Cheraw 9GAG LuNoveltyLab s - Drive [facility] Medicine l Medicine Outpati ent Clinics 2019-03-04 2019-03-04 [facility] [id number] [facility] 15:25:00 15:25:00 t Specialty/U Anuja kes - Specialty rology [facility] l Clinic Outpati ent Clinics 2019-03-04 2019-03-04 [facility] [id number] [facility] 11:34:00 11:34:00 t Cheraw Cheraw Ateo s - Drive [facility] Medicine l Medicine Outpati ent Clinics 2019-02-01 2019-02-01 [facility] [id number] [facility] 14:51:00 14:51:00 t Cheraw Cheraw Ateo s - Drive [facility] Medicine l Medicine Outpati ent Clinics 2019-01-07 2019-01-07 [facility] [id number] [facility] 14:40:00 14:40:00 t Cheraw Medopad s - 9GAG [facility] Medicine l Medicine Outpati ent Clinics 2018-12-18 2018-12-18 [facility] [id number] 11:11:00 11:11:00 t [facility] l Outpati ent Clinics 2018-11-30 2018-11-30 [facility] [id number] [facility] 10:10:00 10:10:00 t Cheraw Cheraw Ateo s - Drive [facility] Medicine l Medicine Outpati ent Clinics 2018-10-14 2018-10-14 [facility] [id number] [facility] 20:24:00 20:24:00 t Cheraw Cheraw Ateo s - Drive [facility] Medicine l Medicine Outpati ent Clinics 2018-10-08 2018-10-08 [facility] [id number] [facility] 13:20:00 13:20:00 t Cheraw Cheraw Ateo s - Drive [facility] Medicine l Medicine Outpati ent Clinics 2018-09-17 2018-09-17 [facility] [id number] [facility] 12:25:00 12:25:[address] Luke s - Drive [facility] Medicine l Medicine Outpati ent Clinics 2018-09-06 2018-09-06 [facility] [id number] [facility] 14:00:00 14:00:[address] Luke s - Drive [facility] Medicine l Medicine Outpati ent Clinics 2018-06-07 2018-06-07 [facility] [id number] [facility] 09:40:00 09:40:[address] Luke s - Drive [facility] Medicine l Medicine Outpati ent Clinics 2018-05-04 2018-05-04 [facility] [id number] [facility] 16:39:00 16:39:00 t Cheraw Cheraw 9GAG Luke s - Drive [facility] Medicine l Medicine Outpati ent Clinics 2018-04-11 2018-04-11 [facility] [id number] [facility] 11:39:00 11:39:[address] Luke s - Drive [facility] Medicine l Medicine Outpati ent Clinics 2018-03-14 2018-03-14 [facility] [id number] [facility] 11:56:00 11:56:00 t Cheraw Cheraw 9GAG Luke s - Drive [facility] Medicine l Medicine Outpati ent Clinics 2018-03-09 2018-03-09 [facility] [id number] [facility] 14:57:00 14:57:[address] Luke s - Drive [facility] Medicine l Medicine Outpati ent Clinics 2018-03-05 2018-03-05 [facility] [id number] [facility] 09:30:00 09:30:[address] Luke s - Drive [facility] Medicine l Medicine Outpati ent Clinics 2018-01-08 2018-01-08 [facility] [id number] [facility] 10:15:00 10:15:[address] Luke s - Drive [facility] Medicine l Medicine Outpati ent Clinics 2017-10-11 2017-10-11 [facility] [id number] [facility] 15:45:00 15:45:[address] Luke s - Drive [facility] Medicine Outpati ent Clinics 2017-08-21 2017-08-21 [facility] [id number] [facility] 15:00:00 15:00:[address] Luke s - Drive [facility] Medicine Outpati ent Clinics 2017-06-20 2017-06-20 [facility] [id number] [facility] 16:33:00 16:33:[address] Luke s - Drive [facility] Medicine Outpati ent Clinics 2017-06-15 2017-06-15 [facility] [id number] [facility] 10:42:00 10:42:[address] Luke s - Drive [facility] Medicine Outpati ent Clinics 2017-06-02 2017-06-02 [facility] [id number] [facility] [facility] 12:11:00 12:11:[address] Luke s - Drive [facility] Medicine Outpati ent Clinics 2017-05-23 2017-05-23 [facility] [id number] [facility] 20:14:00 20:14:[address] Luke s - Drive [facility] Medicine Outpati ent Clinics 2017-05-22 2017-05-22 [facility] [id number] [facility] 14:00:00 14:00:[address] Luke s - Drive [facility] Medicine Outpati ent Clinics 2016-06-08 2016-06-14 Outpatient Marcin [facility] [id number] 09:04:00 13:19:00 Luis Galindo Garvey 2016-06-03 2016-06-[address] [id number] 08:42:00 18:11:00 Luis Luciana Guru 2013-04-03 2013-04-03 Outpatient 3 3 [id number] 07:30:34 07:30:33 2013-03-27 2013-03-27 Outpatient 3 3 [id number] 09:36:24 09:36:24 2013-01-30 2013-01-30 Outpatient 3 3 [id number] 12:32:34 12:32:34 2012-06-12 2012-06-12 Outpatient 3 3 [id number] 11:18:59 11:18:59 Results Test Description Test [...] code = MCH) 26.8 pg 27.0-31.0 [facility] FlhpvfqJZQXRDINRU2973-35-12 11:25:04924Ilxspvir HermannHEMATOLOGY 2016-06-13 11:25:009.9[facility] ZjglofhNZTPRIWMNN6702-11-32 11:25:008.2[facility] UrpdqepAXUTIOMBZO9618-35-47 11:25:003.05[facility] OffuyviBUBUHIOALR0761-21-80 11:25:0078.5[facility] FtjmexjACPSPYNHML1541-11-78 11:25:0023.9[facility] PDEPSIAUWZ5574-88-55 11:25:001+ *ABN*(06/13/16 6:25 AM)[facility] HermannHEMATOLOGY 2016-06-13 11:25:000.1[facility] HhbhcsuCGJAYILNOP2215-58-88 11:25:000.2[facility] NdlefvnKSBDPVBFPJ2309-21-52 11:25:000.7[facility] TwkmriqQTGAXCYBYJ7186-26-09 11:25:0017.6[facility] XqhtukaKVPQANAFME3727-29-65 11:25:0073.1[facility] IICPDTLUWP0104-00-08 11:25:000.5[facility] DwtouqoEZVBAIPPLX2159-36-07 11:25:002.2 [facility] UasszcsPJQATKQLUS9963-47-60 11:25:006.6[facility] HermannHEMATOLOGY 2016-06-13 11:25:001.7[facility] XrlnocgOCQWMTNCRN0397-17-85 11:25:007.2[facility] WkbtoofPQAJAYBTPP2924-84-11 02:08:008.0[facility] GdwjnvuIEQEXRRCYM5456-77-44 02:08:0024.0[facility]ann[facility] BANK QBZHASH0987-58-36 11:30:00Product available 1(06/10/16 6:30 AM)[facility] HermannCHEM XPTFU6822-07-65 09:06:0085 [facility] HermannCHEM GVVCZ8914-66-31 09:06:000.66[facility] HermannCHEM PANEL 2016-06-10 09:06:003.9[facility] HermannCHEM KGJPD1323-96-84 09:06:12193Zlevrhbz HermannCHEM FPSKZ6223-57-95 09:06:62437Ghmvfsib HermannCHEM MPSYU8623-63-94 09:06:0025[facility] HermannCHEM PGUBD8492-63-12 09:06:0012.9[facility] HermannCHEM MHYTB0590-75-49 09:06:007.9[facility] HermannCHEM VMLTQ1280-72-16 09:06:31686 [facility] HermannCHEM GRZLW6572-48-01 09:06:0019[facility] HermannCHEM PANEL 2016-06-10 09:06:002.1[facility] HermannCHEM IQSGJ2216-85-70 09:06:002.8[facility] BbhkawsPKZLLMKAQW0844-39-97 09:06:007.3[facility] XzoyrjvYOAOOEJZTO0660-90-20 09:06:002.77[facility] QondvjnZLHXGBAOJL0740-39-16 09:06:008.1[facility] [place] SGDFCBWHHG0553-18-58 09:06:009.8[facility] CxhqitdRKYVZDOGHU7811-88-01 09:06:86035 [facility] QvbtcoeWSYSZQYOAM8276-29-19 09:06:0078.7[facility] HermannHEMATOLOGY 2016-06-10 09:06:0016.6[facility] EnmbyvpOJKZTHHBIR1994-92-96 09:06:0033.4[facility] DzylokhLHJPHVONTM1794-70-49 09:06:0021.8[facility] JgheswsYKZNNJROVC6251-73-96 09:06:00 Test Item Value Reference Range Interpretation Comments MCH (test code = MCH) 26.3 pg 27.0-31.0 [facility] NrfikugFAZZIHATFQ3977-48-58 09:06:001+ *ABN*(06/10/16 4:06 AM)[facility] SedudgfLMLGHXZHOO7104-78-95 09:06:005.6[facility] AhyblclVWJAWYIWSZ3237-10-01 09:06:000.1[facility] CtvwkidTQFYWASMJS3083-36-43 09:06:000.5[facility] [place] QFOQMMBMHR9903-18-98 09:06:000.3[facility] IqqottnOPHAJHBHNP8106-59-55 09:06:001.9 [facility] UgwckzfRKAAWWGIHN9196-41-48 09:06:000.9[facility] HermannHEMATOLOGY 2016-06-10 09:06:006.5[facility] NtoosroZQAQEEBSOA2943-84-30 09:06:0023.3[facility] NmetgouKAWLFRCFNI3108-87-20 09:06:0069.0[facility] HermannCHEM GBUMQ5865-72-23 09:37:0084[facility] HermannCHEM SAWWW0922-26-09 09:37:000.70[facility] HermannCHEM VQOOH2080-95-35 09:37:003.8[facility] HermannCHEM DSHBP6184-36-22 09:37:29544 [facility] HermannCHEM FUQLU7359-97-17 09:37:58616Jfxwerca HermannCHEM PANEL 2016-06-09 09:37:0020[facility] HermannCHEM PRTLN2507-67-99 09:37:007.6[facility] HermannCHEM JJMRL2054-12-75 09:37:77271Ywvajjlw HermannCHEM VBQYD1266-33-00 09:37:0010.8[facility] HermannCHEM VUFFX8978-55-01 09:37:0028[facility] [place] ANXGFFMQCN4570-25-12 09:37:003.07[facility] ZebavrsVDIDHQIYNO1259-80-21 09:37:00 77.3[facility] GhvnievGQRKGLLPZO3465-00-94 09:37:009.5[facility] HermannHEMATOLOGY 2016-06-09 09:37:0033.5[facility] ZdhsjlpBXURTAXYUY8816-77-60 09:37:0016.4[facility] AhuiincPCLNCORUZE1633-74-59 09:37:00 Test Item Value Reference Range Interpretation Comments MCH (test code = MCH) 25.9 pg 27.0-31.0 [facility] KmtoqnwCHSYAEDNUQ2071-40-25 09:37:48965Niytjsxz HermannHEMATOLOGY 2016-06-09 09:37:009.1[facility] WnbolcvPZELZZTRQZ3619-59-90 09:37:001+ *ABN*(06/09/16 4:37 AM)[facility] AgkncpsATONAZLIRA0029-43-66 09:37:0013.1[facility] PlgrupbJVJCVQPOKP1894-04-48 09:37:007.3[facility] RuzmvvqPMGYUYWNHA5727-35-02 09:37:007.6[facility] HwjrmogFOYEPPTBMQ4582-93-69 09:37:000.2[facility] ECJJSDRCWR7119-66-18 09:37:0079.4[facility] EdwdpqyOQEFNNNVYC8266-71-15 09:37:00 1.3[facility] AyscqrzLKPQVSXWOU4227-18-19 09:37:000.7[facility] HermannBACTERIAL - EBHYCIYE4406-03-43 18:43:00Negative (06/08/16 1:43 PM)[facility] HermannBLOOD BANK XNVMPSZ7747-63-26 12:38:00Negative (06/08/16 7:38 AM)[facility] HermannHEMATOLOGY 2016-06-08 12:38:001.04[facility] RgbterrAQQVGIOHXM1138-25-09 12:38:00 Test Item Value Reference Range Interpretation Comments PT (test code = PT) 13.8 s 12.0-14.7 [facility] EhxkcfbWYYTJYUVRI0316-97-63 12:38:00 Test Item Value Reference Range Interpretation Comments PTT (test code = PTT) 30.6 s 22.9-35.8 [facility] AaouitiYPBVEXLCBY0423-99-27 12:38:000.2[facility] HermannHEMATOLOGY 2016-06-08 12:38:001.6[facility] HermannCHEM SHHJX8983-64-66 14:42:0062[facility] HermannCHEM CNMNY5415-62-58 14:42:70014Tlrjehss HermannCHEM YBHZN2088-17-34 14:42:000.90[facility] HermannCHEM VINGC0592-63-22 14:42:77568Jlxmviuu HermannCHEM KOXOD2463-27-39 14:42:003.6[facility] HermannCHEM HROXW5097-29-62 14:42:0030 [facility] HermannCHEM EUDBQ6886-24-42 14:42:008.9[facility] HermannCHEM PANEL 2016-05-26 14:42:85488Bmfirdti HermannCHEM NNUQD3261-64-54 14:42:0020[facility] HermannCHEM WWEXP1862-60-75 14:42:0011.6[facility] NcfcmibAIZCZVDTUE5541-83-41 14:42:001+ *ABN*(05/26/16 9:42 AM)[facility] PblxjjeKCNQBIGVDS6834-91-62 14:42:00 0.5[facility] KeidppbOPUDKJHRRQ6607-08-19 14:42:000.2[facility] HermannHEMATOLOGY 2016-05-26 14:42:001.6[facility] IzuqkemWPKNSZGQGQ8468-59-02 14:42:006.9[facility] CnhxkzxBESHTMSNEY9445-06-55 14:42:000.4[facility] XgttqdkRTHHORFYEV8821-93-17 14:42:004.9[facility] ZurhwwlJVFVVRVGKJ0708-63-20 14:42:001.8[facility] [place] MINFJOATHT6124-20-28 14:42:0017.4[facility] EuxctepIETOOTHFON6262-46-60 14:42:00 75.5[facility] XcemcglPHBUKBMNPA8771-25-82 14:42:12850Lrpkbntv HermannHEMATOLOGY 2016-05-26 14:42:00 Test Item Value Reference Range Interpretation Comments MCH (test code = MCH) 25.9 pg 27.0-31.0 [facility] DdaaqobZVSKUFOZQZ5817-37-90 14:42:009.8[facility] HermannHEMATOLOGY 2016-05-26 14:42:0016.2[facility] TarceukOXCPIYJPUI5538-06-80 14:42:0033.0[facility] BvhbzliDQCSBLCTTR4865-16-52 14:42:0037.2[facility] TjnhkaaARQEIMGPOE5770-53-56 14:42:0078.3[facility] QeabjlnCJXHCBQTLE1289-56-10 14:42:0012.3[facility] SWMOPGSEVQ5568-90-10 14:42:004.75[facility] FrdzhlgQLBXJOLYIA0313-05-26 14:42:00 9.2[facility] TuvzwveZHUHFICFNA9156-72-06 14:42:00 Test Item Value Reference Range Interpretation Comments PT (test code = PT) 13.8 s 12.0-14.7 [facility] IkxyjxgTUGBNUCPPL7265-74-61 14:42:001.04[facility] HermannHEMATOLOGY 2016-05-26 14:42:00 Test Item Value Reference Range Interpretation Comments PTT (test code = PTT) 32.1 s 22.9-35.8 [facility] HermannBEDSIDE GLUCOSE NRICBIS3610-71-80 20:21:83550Pjnrkwry Christopher BEDSIDE GLUCOSE VQRLIYG8716-47-78 16:28:93568Znlajwro HermannBEDSIDE GLUCOSE WYNYMIH8841-48-66 11:13:39469Jikecscu VpretfjHUXVXYUKE1890-95-21 10:31:64057 [facility] LvxwieaEFSMZYHTO8913-76-58 10:31:52086Zsrglbnq HermannCHEMISTRY 2012-04-25 10:31:003.6[facility] KyiwmqvOMNXJWVIY1632-93-89 10:31:0096[facility] NwkozrjNOTZZWOBB8837-38-74 10:31:000.5[facility] XsfvoyiFTLVZOOFA7933-39-99 10:31:0028[facility] OtdftvsWFKGRIFYR3390-62-15 10:31:007.8[facility] [facility] MUVLFPGDP6633-13-12 10:31:0014[facility] RxqlpwuKCHAGAMRJ7419-77-69 10:31:25816 [facility] IreghuwPGKQFIRVG9699-51-25 10:31:0014.6[facility]annHEMATOLOGY 2012-04-25 10:31:76976Mtfyicxc KilzgueVPLPYTPPTJ3877-48-41 10:31:0032.4[facility] GxyslnjBMTMHYCVHN6094-05-64 10:31:0015.7[facility] PmxeykoUUCCVPYLYX7985-64-58 10:31:00 Test Item Value Reference Range Interpretation Comments MCH (test code = MCH) 26.8 pg 27.0-31.0 L [facility] SvgklocLODHKVVMWH9293-86-74 10:31:0082.8[facility]annHEMATOLOGY 2012-04-25 10:31:009.9[facility] EckywfeMEACBHMGRN5185-13-65 10:31:0029.4[facility] HyrdcvvPVLIFSOKGJ6879-85-06 10:31:009.5[facility] QevhjelVTZDRFBPNR2610-49-98 10:31:003.55[facility] EmaededAFGVVSKCJE4201-35-21 10:31:008.9[facility] [place] JPOFRFZYBC0385-61-85 10:31:007.2[facility] TvjppbhEAJHRKFKMN5049-64-53 10:31:000.1 [facility] MiixyftRZFBUVZWVR5933-09-70 10:31:000.0[facility]annHEMATOLOGY 2012-04-25 10:31:000.4[facility] UzwmwtqXAZACUCSPV8787-59-42 10:31:000.4[facility] DrghefjXGPXSYTIEX3683-05-06 10:31:000.8[facility] VzrkctzFJXWYNIQSN1143-07-06 10:31:004.8[facility] SnlvcqjSQPYOUKCPY8695-47-21 10:31:004.8[facility] [place] GCAQWCRYVR1553-48-41 10:31:008.9[facility] VqnestvTWJUMUNRUB8718-35-43 10:31:00 81.4[facility] UgwbvacETJUTODAZ5857-63-69 08:47:002.1[facility] HermannCHEMISTRY 2012-04-24 08:47:85399Edjpylfk CxyrvxbILHWMXHVV8209-09-35 08:47:003.5[facility] ZexwuqfVHYUEGZCM2233-40-77 08:47:93997Mhjkiaut QzvpbtxXNWHKQTHF9684-44-22 08:47:002.7[facility] HayjdbaDQFBJXJJO9242-83-74 08:47:001.0[facility] EQPOPKMCU0579-79-89 08:47:000.9[facility] NuzpjoiGIJGKHULE2533-93-95 08:47:0012 [facility] JmpeebjQGJPNKYAC5207-63-79 08:47:0060[facility] HermannCHEMISTRY 2012-04-24 08:47:000.5[facility] ApwnobpKSZCBHIBA8650-43-92 08:47:0031[facility] CcnhinqCCMWQGBBM2747-76-88 08:47:0093[facility] NkoslwhAFTMYGYJM1558-25-95 08:47:0014[facility] UgcuxbeMHHHNNIES0780-77-52 08:47:0010.5[facility] [place] JOPRWYJEM8446-29-51 08:47:005.3[facility] RlerqkmUGGOSYPUT9980-87-30 08:47:002.6 [facility] OjwnwswMIYDPPLNN1502-61-18 08:47:007.6[facility]annCHEMISTRY 2012-04-24 08:47:0028[facility] UujvevwYITNKHECL0297-01-86 08:47:009[facility] AujbqnqDPFGTKJMQ0274-43-96 08:47:0096[facility] KpdzzgkIYWLWAWBSS5810-54-23 08:47:000.4[facility] MpqfwgmHZZTHGZQEM2276-19-49 08:47:000.3[facility] [place] BZEQZFJMUV8724-63-82 08:47:000.0[facility] WirodjcOKUSVRUAZR6547-46-40 08:47:003.3 [facility] FtcttsvYTLOBOOISR6710-25-80 08:47:000.2[facility]annHEMATOLOGY 2012-04-24 08:47:007.4[facility] VzfeyurDOVAGKYYSX9828-97-49 08:47:000.9[facility] JgucgsoEGRKOGLLWV9838-07-32 08:47:004.7[facility] WkxjrxwNRKDYDZCLO5856-12-62 08:47:0010.1[facility] QoeemsdFHGHEFTFJQ0722-73-36 08:47:0081.7[facility] [place] DRUHAWMFBW7639-12-84 08:47:009.8[facility] JpzvenwSPPIIZBHBA1726-32-51 08:47:00 32.4[facility] TkgujtbSQSZAZBRBB2340-43-89 08:47:0015.8[facility]annHEMATOLOGY 2012-04-24 08:47:18433Dmnujdnp UxinlicTJBPRGPUCY2584-26-44 08:47:0029.1[facility] NygycfqQFHYCAVUGE9066-01-73 08:47:003.53[facility] FsjvhdhHCCHGGTNGV4139-61-64 08:47:009.1[facility] WxylfjlTBTOEHYZIK6981-80-20 08:47:009.4[facility] [place] UXKQQTOPSB0068-76-08 08:47:00 Test Item Value Reference Range Interpretation Comments MCH (test code = MCH) 26.7 pg 27.0-31.0 L [facility] JjzxwoxWNROTSTSNO8072-03-15 08:47:0082.4[facility] HermannCHEMISTRY 2012-04-23 10:08:002.0[facility] WjqbpnsQHVVZCDIG1653-59-42 10:08:001.0[facility] GudifalMUKAXBOJU8962-78-22 10:08:002.8[facility] AfjlzhxAYMEFQABA2278-47-63 10:08:0026[facility] CrkthggDGOKFXGUU1805-04-57 10:08:0013.8[facility] CNFBEGRGJ5518-64-63 10:08:0016[facility] MkiwbtnPHYYBFPMY5978-35-05 10:08:0070 [facility] QvhjazuOMGOATGHQ7091-67-84 10:08:005.5[facility] HermannCHEMISTRY 2012-04-23 10:08:002.7[facility] ZrupncnJTCATHOPG9901-80-59 10:08:000.5[facility] QxuwfprCYAXTVYMZ9535-46-33 10:08:0010[facility] XvkmcdyUOVFWBEPP8426-53-07 10:08:0096[facility] CmwqqgqDHVKXAIMU5896-38-08 10:08:0013[facility] [place] MZQFCQHOG5437-46-60 10:08:000.5[facility] RqphsmpDTBBIEOFY2779-43-95 10:08:21162 [facility] RxkrjivADYLNDEQS6497-59-74 10:08:003.8[facility] HermannCHEMISTRY 2012-04-23 10:08:78599Wtizwalp GhtidwvNOOPGBCCB7220-82-84 10:08:22287Hhootprz WaqwyorEFMDUGESK9794-84-69 10:08:007.4[facility] YgectipKFNYFYQGB1479-40-69 10:08:0028[facility] XyhnlbbGSZXCNQFPX6154-87-62 10:08:009.9[facility] XYRPMGDYWS7061-10-88 10:08:66495Linghcgd KmvotesDLZWGMSLJF8009-71-42 10:08:00 15.9[facility] EnizfumOVJOKYICMI3694-90-05 10:08:0032.4[facility] HermannHEMATOLOGY 2012-04-23 10:08:0030.6[facility] IplzsntWYODJBFWNB6409-39-10 10:08:003.70[facility] MfqmereFLEPNIKOYK5782-92-69 10:08:0011.2[facility] OgxuftiBZBKHFHTFY8456-61-73 10:08:009.9[facility] JqzwwmsYFSEITKBUN6797-67-40 10:08:0082.7[facility] [place] UTDCQDUSTX9301-89-72 10:08:00 Test Item Value Reference Range Interpretation Comments MCH (test code = MCH) 26.8 pg 27.0-31.0 L [facility] PowwuhtGKJWMJCLJE3470-43-06 10:08:002.0[facility] HermannHEMATOLOGY 2012-04-23 10:08:004.0[facility] RcstggbLVZTEQOYDC3241-16-39 10:08:000.1[facility] ZhejdsdNFTTWQDYQL8147-26-14 10:08:000.0[facility] SoemiszUYQCSVIWHM1443-80-50 10:08:000.2[facility] KuqpqtxJRDAPBCGVT0871-33-38 10:08:001.4[facility] [place] ZOMKXZIPYP8041-70-92 10:08:009.1[facility] SkftxszBYWULREXNL7355-67-14 10:08:000.5 [facility] NnsydtmAFMDVVJINI6363-64-43 10:08:0081.5[facility] HermannHEMATOLOGY 2012-04-23 10:08:0012.4[facility] YrvyerzQDONSCRUG3141-32-62 10:40:000.4[facility] NgzgiqoTNKIZVHNW0664-64-54 10:40:0018[facility] ReqfcuzVYHZONXNB4175-68-55 10:40:0062[facility] QhcxxqzWPNODKGRJ6169-30-19 10:40:006.1[facility] UVULWVYWO0187-60-93 10:40:0014[facility] GzkuvfwRUBBSFUOZ7919-06-79 10:40:002.7 [facility] ZmfihgjFJITMUEUA6674-75-34 10:40:000.8[facility] HermannCHEMISTRY 2012-04-22 10:40:003.4[facility] AqayshiYEILCVAPF6317-90-39 10:40:0014[facility] GpottfdTVXYPDNFVT1038-46-79 18:27:00Occasional /LPF *NA*(04/21/2012 12:27:00) [facility] LozkrjbTZTXJNOXBT4712-73-91 18:27:00Moderate *ABN*(04/21/2012 12:27:00) [facility] VpiohnaUYWXDJKLTY0490-56-61 18:27:006[facility] HermannURINALYSIS 2012-04-21 18:27:0034[facility] OazabsdJEAUUVAWGZ3139-40-86 18:27:00Occasional /HPF *NA*(04/21/2012 12:27:00)[facility] FnskczaKJFHVXOKCI1008-30-07 18:27:00Few /LPF *NA*(04/21/2012 12:27:00)[facility] AzzpovbZWUXLIDOWM0354-25-67 18:27:00 Occasional /HPF *NA*(04/21/2012 12:27:00)[facility] GhbhmpzYDJNOEMNHP0948-37-10 18:27:00Negative *NA*(04/21/2012 12:27:00)[facility] HugzxkfELYOKZXKZZ2667-98-28 18:27:00Moderate *ABN*(04/21/2012 12:27:00)[facility] VqrdlyrEWAFGKBCFE9016-52-07 18:27:00Negative (04/21/2012 12:27:00)[facility] MaowzfqHQKVAYAWFN4537-34-42 18:27:00Negative mg/dL *NA*(04/21/2012 12:27:00)[facility] HermannURINALYSIS 2012-04-21 18:27:0020 mg/dL *ABN*(04/21/2012 12:27:00)[facility] HermannURINALYSIS 2012-04-21 18:27:00Negative mg/dL (04/21/2012 12:27:00)[facility] MPJDSVHYHN6360-53-01 18:27:00Clear (04/21/2012 12:27:00)[facility] [place] EXZFBFGQVA5206-32-96 18:27:005.0[facility] FowbiqiIZHAKQTKQL8741-14-79 18:27:00 1.011[facility] IabbayqWSUSSVNXF2206-95-42 09:55:002.8[facility] HermannCHEMISTRY 2012-04-21 09:55:001.8[facility] SfhbrniWSXNYVOJW6892-35-69 00:11:002.9[facility] XxpiiqoYBINUJKYKT9913-87-19 00:11:00Normal (04/20/2012 18:11:00)[facility] [place] JZVUYXOZJF6740-98-88 00:11:00Normal (04/20/2012 18:11:00)[facility] BACTERIAL - INBNYYWI2861-40-96 22:00:00Negative 1(04/20/2012 16:00:00)[facility] LqvfkifTRACNLPXW5973-04-06 10:47:42634Lsmjxyvv BxfwcusMCYVGIIHQ6904-31-26 10:47:47734Woibulrf JaggvgjLXWVKKEYR9076-47-14 10:47:70855Xyxvhfch [place] COGPBMOJB2114-45-63 10:47:0036[facility] BtuyrtkZNQDORJCV4984-22-08 10:47:005.86 [facility] CitefahMIJTQSDAW6942-70-30 10:45:000.631[facility] HermannCHEMISTRY 2012-04-19 10:45:003.2[facility] PhwwibaZACIVYNXXZ4144-81-11 10:45:00 Test Item Value Reference Range Interpretation Comments PTT (test code = PTT) 35.0 s 22.9-35.8 N [facility] IhvcbkvAXNYSMVOQC1730-11-26 10:45:00 Test Item Value Reference Range Interpretation Comments PT (test code = PT) 14.0 s 12.0-14.7 N [facility] JlwmpypQVDFODANZY5382-29-32 10:45:001.06[facility] HermannCHEMISTRY 2012-04-19 03:05:0086[facility] IrimhowCOYZYIICC9866-71-38 03:05:63726Swyuhntv TayvmtlECHHSFUOV6126-55-60 03:05:000.9[facility] AbqlznoDIEYYJRSO8378-23-50 03:05:00<0.02[facility] DzeiypcGNNVBRSZQ0230-00-44 03:05:000.7[facility] [place] WDYFPUQMSM9389-03-56 03:05:000.95[facility] YooxcobPUDHCEHTOK2485-45-62 03:05:00 Test Item Value Reference Range Interpretation Comments PTT (test code = PTT) 34.0 s 22.9-35.8 N [facility] KahpgoeAEGMLOHNCQ7588-74-66 03:05:00 Test Item Value Reference Range Interpretation Comments PT (test code = PT) 12.9 s 12.0-14.7 N [facility] YacvvtbOSOBUXYNIR1658-28-38 03:05:00Normal (04/18/2012 21:05:00) [facility] TqppsehDVZZUHVBSA8461-94-79 03:05:00Normal (04/18/2012 21:05:00) [facility] QoudcgfDIRRNBEQXV7035-08-33 03:05:00Negative (04/18/2012 21:05:00) [facility] BxlhxngQRZTMQYDVS4192-56-88 03:05:00Negative (04/18/2012 21:05:00) [facility] WokhdhiEZURURSNHN9625-51-21 03:05:00Negative *NA*(04/18/2012 21:05:00) [facility] JhcekklAZRGNZFMNO3182-94-18 03:05:003[facility] HermannURINALYSIS 2012-04-19 03:05:00Occasional /LPF *NA*(04/18/2012 21:05:00)[facility] JSVQGQJMST0599-92-69 03:05:00Occasional /HPF *NA*(04/18/2012 21:05:00)[facility] IrdvjwkAVYWOGTCFL5156-06-19 03:05:00<1[facility] QsevgpwWROTCVHEMU1413-81-63 03:05:008.0[facility] BjuspymSDABONQDQR5945-39-63 03:05:00Small *ABN*(04/18/2012 21:05:00)[facility] LsfspjsKXFUTYBOIU4702-53-61 03:05:00Negative mg/dL *NA*(04/18/2012 21:05:00)[facility]upitlhKVXGNYRLQD0918-60-89 03:05:00Negative mg/dL *NA*(04/18/2012 21:05:00)[facility] HospitalGrongzhCQFSUWOMAT4026-70-60 03:05:00 Negative mg/dL (04/18/2012 21:05:00)[facility] HospitalVnqyiraMURTKJQCYT0370-83-07 03:05:00Clear (04/18/2012 21:05:00)[facility] HospitalWtynvxfYPBTYBYMFQ8306-50-34 03:05:00 1.003[facility]
[2020-05-22 13:58] LABS: Absolute Lymphocytes (CBC) 1.6 K/uL (0.7-4.9); Basophils % 0.3 % (0-1.3); Hematocrit 35.4 % (36.0-45.0); MPV 9.6 fL (7.6-11.3); RBC Red Blood Cell Count 4.28 M/uL (3.86-4.86)
[2020-05-22] MEDS ORDERED: FENTANYL CITR 100 MCG/2 ML ONE (14:02)
[2020-05-22] MEDS ORDERED: ONDANSETRON 4 MG/2 ML VIAL ONE (14:02)
[2020-05-22 14:08] LABS: Potassium 3.5 mmol/L (3.5-5.1)
--- NOTE | 2020-05-22 14:28 | RAD REPORT ---
EXAM DESCRIPTION: CT - Head C Spine Cap Wo Con - 05/22/2020 2:03 pm CLINICAL HISTORY: Trauma, head and neck injury. Chest, abdomen and pelvis pain. fall COMPARISON: No comparisons TECHNIQUE: CT head without contrast. CT cervical spine without contrast with coronal and sagittal reformatted images. CT chest, abdomen and pelvis without contrast with coronal and sagittal reformatted images of the [place] [employer] [facility] ne. All CT scans are performed using dose optimization technique as appropriate and may include automated exposure control or mA/KV adjustment according to patient size. FINDINGS: CT HEAD WITHOUT CONTRAST: No intracranial hemorrhage, hydrocephalus or extra-axial fluid collection. No areas of brain edema o r midline shift. The paranasal sinuses and mastoids are clear. The calvarium is intact. Right frontal scalp hematoma. CT CERVICAL SPINE WITHOUT CONTRAST: No fracture or subluxation. The prevertebral soft tissues are normal in thickness.Prominent sella tu rcica likely related to empty sella. CT CHEST, ABDOMEN, PELVIS WITHOUT CONTRAST: NOTE: Lack of contrast is a significant limitation in the assessment of trauma related findings. Spec ifically, solid organ, vascular and bowel evaluation is significantly limited. The lungs are clear.No pneumothorax or pericardial/pleural fluid. No evidence of intra-abdominal visceral injury, free fluid or free air is seen within the above detai led limitations. No concerning pelvic findings. No fractures. IMPRESSION: Negative for acute traumatic findings within the above detailed limitations.
--- NOTE | 2020-05-22 14:29 | RAD REPORT ---
EXAM DESCRIPTION: RAD - Femur Right - 05/22/2020 2:23 pm CLINICAL HISTORY: fall;Pain COMPARISON: No comparisons FINDINGS: Mild osteoarthritis affects the right hip. No fracture, dislocation AVN. Vascular calcific ations are present.
--- NOTE | 2020-05-22 14:36 | RAD REPORT ---
EXAM DESCRIPTION: RAD - Hand Right 3 View - 05/22/2020 2:23 pm CLINICAL HISTORY: Pain;Deformity COMPARISON: <Comparisons> FINDINGS: Diffuse osteopenia is seen. Subluxation is present involving the fourth finger at the PIP joint.
--- NOTE | 2020-05-22 15:07 | ER ---
Nurse's Notes [facility] Name: Eva Haskins Age: 79 yrs Sex: Female : 1940 Arrival Date: 05/22/2020 Time: 13:24 Bed 5 Private MD: Diagnosis: Dislocation of proximal interphalangeal joint of right ring finger;Contusion of other part of head-forehead;Contusion of right hip;Fall on same level from slipping, tripping and stumbling Presentation: 05/22 13:25 Chief complaint: EMS states: [place] bruising and ss swelling noted to R third and fourth fingers. Hematoma noted to R side of forehead. Pt also c/o R hip pain. Care prior to arrival: None. Mechanism of Injury: Fall from standing position. Trauma event details: Injury occurred in the [facility], Injury occurred: in a public building. Injury occurred: May 22, 2020. 13:25 Acuity: DEVON 2 ss 13:25 Method Of Arrival: Ambulatory ss 13:25 Coronavirus screen: Client denies travel out of the [place] in the last 14 days. Ebola ss Screen: Patient denies exposure to infectious person. Patient denies travel to an Ebola-affected area in the 21 days before illness onset. Initial Sepsis Screen: Does the patient meet any 2 criteria? No. Patient's initial sepsis screen is negative. Does the patient have a suspected source of infection? No. Patient's initial sepsis screen is negative. Risk Assessment: Do you want to hurt yourself or someone else? Patient reports no desire to harm self or others. Onset of symptoms was May 22, 2020. 13:29 Risk Assessment: Do you want to hurt yourself or someone else? Patient reports no sv desire to harm self or others. Trauma Activation: Alert Physician: ED Physician; Name: ; Notified At: ; Arrived At: Physician: General Surgeon; Name: ; Notified At: ; Arrived At: Physician: Radiology; Name: ; Notified At: ; Arrived At: Physician: Respiratory; Name: ; Notified At: ; Arrived At: Physician: Lab; Name: ; Notified At: ; Arrived At: Historical: - Allergies: 13:29 Iodine; sv 13:29 Levofloxacin; sv - PMHx: 13:29 Diabetes - NIDDM; Hyperlipidemia; Hypertension; Myocardial infarction; TIA; sv - Immunization history:: Adult Immunizations up to date. - Social history:: Smoking status: Patient denies any tobacco usage or history of. Screenin:28 Abuse screen: Denies threats or abuse. Denies injuries from another. Nutritional sv screening: No deficits noted. Tuberculosis screening: No symptoms or risk factors identified. Fall Risk None identified. Primary Survey: 13:25 NO uncontrolled hemorrhage observed. A: The patient is alert. Airway: patent, No sv supplemental oxygen in use on arrival. Oral cavity: clear, Trachea midline. Breathing/Chest: Respiratory pattern: regular, Respiratory effort: spontaneous, unlabored, Chest inspection: symmetrical rise and fall of the chest. Circulation: Cardiac rhythm: sinus rhythm Pulses: palpable right radial artery, right dorsalis pedis artery, left radial artery and left dorsalis pedis artery. Skin color: pink, Skin temperature: warm, dry. Disability Alert. Exposure/Environment: All clothing and personal items were removed. Forensic evidence collection is not deemed to be indicated at this time. Items placed in patient belonging bag. There is no evidence of uncontrolled external bleeding. A warming method has been applied: A warm blanket has been provided to the patient. 13:45 Reassessment Airway Airway Patent Oxygen No O2 Oral cavity Clear Trachea Midline sv Breathing/Chest Respiratory pattern Regular Respiratory effort Spontaneous Unlabored Chest inspection Symmetrical Circulation Heart rhythm Sinus rhythm Heart tones Present Pulses Palpable Color [place] Temperature Warm Dry Disability Alert. Secondary Survey: 13:25 HEENT: No deficits noted. Gastrointestinal: No deficits noted. : No deficits noted. sv No signs and/or symptoms were reported regarding the genitourinary system. Musculoskeletal: Circulation, motion, and sensation intact. Range of motion: limited in PIP of right ring finger and PIP of right little finger Bony deformity noted of right ring finger Swelling present in medial aspect of right hand, right ring finger, right little finger, dorsum of right hand and lateral aspect of right thigh. Injury Description: Abrasion sustained to dorsal aspect of middle phalanx of right middle finger was sustained 30-60 minutes ago. hematoma to right side of forehead. Assessment: 15:42 Reassessment: Patient appears in no apparent distress at this time. No changes from sv previously documented assessment. Patient and/or family updated on plan of care and expected duration. Pain level reassessed. Patient is alert, oriented x 3, equal unlabored respirations, skin warm/dry/pink. Vital Signs: 13:25 BP 209 / 115; Pulse 100; Resp 18; Temp 98.8(TE); Pulse Ox 98% on R/A; Weight 68.95 kg; ss Pain 7/10; 13:45 BP 170 / 50; Pulse 88; Resp 20; Temp 98.8; Pulse Ox 98% ; sv 14:30 BP 183 / 56; Pulse 80; Resp 22; Pulse Ox 95% ; sv 15:30 BP 158 / 60; Pulse 82; Resp 18; Temp 98; Pulse Ox 100% ; sv [place] Coma Score: 13:25 Eye Response: spontaneous(4). Verbal Response: oriented(5). Motor Response: obeys ss commands(6). Total: 15. Trauma Score (Adult): 13:25 Eye Response: spontaneous(1); Verbal Response: oriented(1); Motor Response: obeys ss commands(2); Systolic BP: > 89 mm Hg(4); Respiratory Rate: 10 to 29 per min(4); [place] Score: 15; Trauma Score: 12 13:45 Eye Response: spontaneous(1); Verbal Response: oriented(1); Motor Response: obeys sv commands(2); Systolic BP: > 89 mm Hg(4); Respiratory Rate: 10 to 29 per min(4); [place] Score: 15; Trauma Score: 12 14:30 Eye Response: spontaneous(1); Verbal Response: oriented(1); Motor Response: obeys sv commands(2); Systolic BP: > 89 mm Hg(4); Respiratory Rate: 10 to 29 per min(4); Sophie Score: 15; Trauma Score: 12 15:30 Eye Response: spontaneous(1); Verbal Response: oriented(1); Motor Response: obeys sv commands(2); Systolic BP: > 89 mm Hg(4); Respiratory Rate: 10 to 29 per min(4); [place] Score: 15; Trauma Score: 12 ED Course: 13:24 Patient arrived in ED. ds1 13:25 Patient maintains SpO2 saturation greater than 95% on room air. ss 13:25 Patient has correct armband on for positive identification. Placed in gown. Bed in low ss position. Call light in reach. Side rails up X2. Adult w/ patient. collarette separator on. Pulse ox on. NIBP on. 13:26 Esme Edwards, NAINA is Primary Nurse. sv 13:27 Triage completed. ss 13:28 Maintain EMS IV. Dressing intact. Site clean \T\ dry. Gauge \T\ site: 20G L wrist. sv 13:29 Leonides Manning PA is PHCP. cp 13:29 Leonides Juarez MD is Attending Physician. cp 13:29 Arm band placed on. sv 13:30 Thermoregulation: warm blanket given to patient. sv 13:35 Initial lab(s) drawn, by me, sent to lab. T\T\S collected, blood band applied to patient. sv 13:45 CBC with Diff Sent. sv 13:45 Basic Metabolic Panel Sent. sv 13:45 Type And Screen Sent. sv 14:03 CT Traumagram (Head C Spine CAP wo con) In Process Unspecified. EDMS 14:24 XRAY Hand RIGHT 3 View In Process Unspecified. EDMS 14:24 XRAY Femur RIGHT In Process Unspecified. EDMS 15:02 XRAY Finger-Thumb RIGHT: right fourth finger In Process Unspecified. EDMS 15:04 Nithin Moser MD is Referral Physician. cp 15:04 Douglas Franco MD is Referral Physician. cp 15:58 No provider procedures requiring assistance completed. IV discontinued, intact, sv bleeding controlled, No redness/swelling at site. Pressure dressing applied. Administered Medications: 13:47 Drug: Zofran (Ondansetron) 4 mg Route: IVP; Site: left forearm; hb 14:30 Follow up: Response: No adverse reaction sv 13:48 Drug: fentaNYL (PF) 25 mcg Route: IVP; Site: left antecubital; hb 14:30 Follow up: Response: No adverse reaction; RASS: Alert and Calm (0) sv Intake: 13:25 PO: 0ml; Total: 0ml. sv 13:45 PO: 0ml; Total: 0ml. sv 14:30 PO: 0ml; Total: 0ml. sv 15:30 PO: 0ml; Total: 0ml. sv Output: 13:25 Urine: 0ml; Total: 0ml. sv 13:45 Urine: 0ml; Total: 0ml. sv 14:30 Urine: 0ml; Total: 0ml. sv 15:30 Urine: 0ml; Total: 0ml. sv Outcome: 15:06 Discharge ordered by . cp 15:58 Patient left the ED. sv 15:58 Discharged to home via wheelchair, with family. sv 15:58 Condition: stable 15:58 Discharge instructions given to patient, family, Instructed on discharge instructions, follow up and referral plans. Demonstrated understanding of instructions, follow-up care. 15:58 Patient's length of stay in the Emergency Department was greater than 2 hours. dischargePatient's length of stay extended due to Signatures: Dispatcher [employer] Esme Humphrey RN RN sv Ayana Casanova ds1 Arlene Arreola RN RN ss Leonides Manning PA PA cp Baxter, Heather, RN RN Corrections: (The following items were deleted from the chart) 13:33 13:25 Injury Description: Abrasion sustained to dorsal aspect of middle phalanx of sv right middle finger was sustained 30-60 minutes ago. sv 15:41 13:45 Reassessment Airway Airway Patent Oxygen No O2 Oral cavity Clear Trachea Midline sv Breathing/Chest Respiratory pattern Regular Respiratory effort Spontaneous Unlabored Chest inspection Symmetrical Circulation Heart rhythm Sinus rhythm Heart tones Present Pulses Palpable Color [place] Temperature Warm Dry sv
--- NOTE | 2020-05-22 15:07 | EDPHYS ---
Physician Documentation [facility] Name: Eva Haskins Age: 79 yrs Sex: Female : 1940 Arrival Date: 05/22/2020 Time: 13:24 Bed 5 Private MD: ED Physician Leonides Juarez HPI: 05/22 13:35 This 79 yrs old Female presents to ER via Ambulatory with complaints of Fall cp Injury. 13:35 Details of fall: The patient fell from an upright position, while walking, and struck a cp tile surface. Onset: The symptoms/episode began/occurred just prior to arrival. Associated injuries: The patient sustained injury to the head, hematoma, right hand, right hip, hematoma. Severity of symptoms: in the emergency department the symptoms are unchanged, despite EMS interventions. Historical: - Allergies: 13:29 Iodine; sv 13:29 Levofloxacin; sv - PMHx: 13:29 Diabetes - NIDDM; Hyperlipidemia; Hypertension; Myocardial infarction; TIA; sv - Immunization history:: Adult Immunizations up to date. - Social history:: Smoking status: Patient denies any tobacco usage or history of. ROS: 13:40 Constitutional: Negative for body aches, chills, fever, poor PO intake. cp 13:40 Cardiovascular: Negative for chest pain. cp 13:40 Respiratory: Negative for cough, shortness of breath, wheezing. 13:40 Abdomen/GI: Negative for abdominal pain, nausea, vomiting, and diarrhea. 13:40 Neuro: Negative for altered mental status, loss of consciousness, weakness. 13:40 All other systems are negative. Exam: 13:45 Constitutional: The patient appears in no acute distress, alert, awake, cp non-diaphoretic, non-toxic, well developed, well nourished. 13:45 Head/face: Noted is hematoma, that is moderate, of the right side of forehead. cp 13:45 Eyes: Periorbital structures: appear normal, Pupils: equal, round, and reactive to light and accomodation, Extraocular movements: intact throughout, Conjunctiva: normal, no exudate, no injection, Sclera: no appreciated abnormality, Lids and lashes: appear normal, bilaterally. 13:45 ENT: External ear(s): are unremarkable, Nose: is normal, Posterior pharynx: Airway: no evidence of obstruction, patent. 13:45 Neck: C-spine: vertebral tenderness, is not appreciated, crepitus, is not appreciated, ROM/movement: is normal, is supple, without pain, no range of motions limitations, no nuchal rigidity. 13:45 Chest/axilla: Inspection: normal, Palpation: is normal, no crepitus, no tenderness. 13:45 Cardiovascular: Rate: tachycardic, Rhythm: regular, Edema: is not appreciated, JVD: is not appreciated. 13:45 Respiratory: the patient does not display signs of respiratory distress, Respirations: normal, no use of accessory muscles, no retractions, labored breathing, is not present, Breath sounds: are clear throughout, no decreased breath sounds, no stridor, no wheezing. 13:45 Abdomen/GI: Inspection: abdomen appears normal, Palpation: abdomen is soft and non-tender, in all quadrants. 13:45 Back: pain, is absent, ROM is normal. 13:45 Musculoskeletal/extremity: Extremities: grossly normal except: noted in the right hip: pain, tenderness, large hematoma noted lateral hip, noted in the right hand: deformity, pain, swelling, tenderness, ROM: limited passive range of motion due to pain, in the right hip. 13:45 Neuro: Orientation: to person, place \T\ time. Mentation: is normal, Motor: moves all fours, strength is normal, Sensation: is normal. Vital Signs: 13:25 BP 209 / 115; Pulse 100; Resp 18; Temp 98.8(TE); Pulse Ox 98% on R/A; Weight 68.95 kg; ss Pain 7/10; 13:45 BP 170 / 50; Pulse 88; Resp 20; Temp 98.8; Pulse Ox 98% ; sv 14:30 BP 183 / 56; Pulse 80; Resp 22; Pulse Ox 95% ; sv 15:30 BP 158 / 60; Pulse 82; Resp 18; Temp 98; Pulse Ox 100% ; sv Mulino Coma Score: 13:25 Eye Response: spontaneous(4). Verbal Response: oriented(5). Motor Response: obeys ss commands(6). Total: 15. Trauma Score (Adult): 13:25 Eye Response: spontaneous(1); Verbal Response: oriented(1); Motor Response: obeys ss commands(2); Systolic BP: > 89 mm Hg(4); Respiratory Rate: 10 to 29 per min(4); Sophie Score: 15; Trauma Score: 12 13:45 Eye Response: spontaneous(1); Verbal Response: oriented(1); Motor Response: obeys sv commands(2); Systolic BP: > 89 mm Hg(4); Respiratory Rate: 10 to 29 per min(4); Sophie Score: 15; Trauma Score: 12 14:30 Eye Response: spontaneous(1); Verbal Response: oriented(1); Motor Response: obeys sv commands(2); Systolic BP: > 89 mm Hg(4); Respiratory Rate: 10 to 29 per min(4); Sophie Score: 15; Trauma Score: 12 15:30 Eye Response: spontaneous(1); Verbal Response: oriented(1); Motor Response: obeys sv commands(2); Systolic BP: > 89 mm Hg(4); Respiratory Rate: 10 to 29 per min(4); Sophie Score: 15; Trauma Score: 12 MDM: 13:30 Patient medically screened. cp 14:00 Differential diagnosis: closed head injury, contusion, fracture, multiple trauma. cp 14:25 Test interpretation: by ED physician or midlevel provider: xrays of right femur cp negative for fracture. 15:02 Data reviewed: vital signs, nurses notes, lab test result(s), radiologic studies, CT cp scan, plain films, and as a result, I will discharge patient. Counseling: I had a detailed discussion with the patient and/or guardian regarding: the historical points, exam findings, and any diagnostic results supporting the discharge/admit diagnosis, lab results, radiology results, the need for outpatient follow up, a general surgeon, a hand specialist, to return to the emergency department if symptoms worsen or persist or if there are any questions or concerns that arise at home. 05/22 13:32 Order name: Basic Metabolic Panel cp 05/22 13:32 Order name: CBC with Diff cp 05/22 13:32 Order name: Type And Screen cp 05/22 13:33 Order name: Basic Metabolic Panel; Complete Time: 14:29 EDMS 05/22 14:29 Interpretation: Normal except: GLUC 146; BUN 24; GFR 64. cp 05/22 13:33 Order name: CBC with Automated Diff; Complete Time: 14:29 EDMS 05/22 14:29 Interpretation: Normal except: WBC 11.60; HGB 11.4; HCT 35.4; MCH 26.7; RDW 15.9; RANDALL% cp 80.4; LYM% 14.0; NEUT A 9.4. 05/22 13:33 Order name: Type and Screen EDMS 05/22 13:32 Order name: XRAY Hand RIGHT 3 View; Complete Time: 14:39 cp 05/22 13:32 Order name: CT Traumagram (Head C Spine CAP wo con); Complete Time: 14:29 cp 05/22 14:40 Interpretation: Report reviewed. 05/22 13:32 Order name: Labs collected and sent; Complete Time: 13:45 cp 05/22 13:43 Order name: XRAY Femur RIGHT; Complete Time: 14:39 cp 05/22 14:31 Order name: XRAY Finger-Thumb RIGHT: right fourth finger cp 05/22 15:01 Order name: Finger Splint: sugar tong type right fourth finger; Complete Time: 15:39 cp 05/22 15:03 Order name: Cuhng Wrap: right hip hematoma; Complete Time: 15:39 cp Administered Medications: 13:47 Drug: Zofran (Ondansetron) 4 mg Route: IVP; Site: left forearm; hb 14:30 Follow up: Response: No adverse reaction sv 13:48 Drug: fentaNYL (PF) 25 mcg Route: IVP; Site: left antecubital; hb 14:30 Follow up: Response: No adverse reaction; RASS: Alert and Calm (0) sv Disposition: 16:00 Chart complete. 05/23 07:31 Co-signature as Attending Physician, Leonides Juarez MD I agree with the assessment and kenna plan of care. Disposition: 05/22/20 15:06 Discharged to Home. Impression: Dislocation of proximal interphalangeal joint of right ring finger, Contusion of other part of head - forehead, Contusion of right hip, Fall on same level from slipping, tripping and stumbling. - Condition is Stable. - Discharge Instructions: Facial or Scalp Contusion, Finger or Thumb Dislocation, Hematoma. - Medication Reconciliation Form, Thank You Letter, Antibiotic Education, Prescription Opioid Use form. - Follow up: Nithin Moser MD; When: 2 - 3 days; Reason: right hip hematoma. Follow up: Douglas Franco MD; When: 2 - 3 days; Reason: right fourth finger dislocation. - Problem is new. - Symptoms have improved. Signatures: Dispatcher [employer] Esme Humphrey, RN Leonides Hodges MD MD cha Smirch, Shelby, RN RN ss Leonides Manning PA PA cp Taty Bhagat RN RN Corrections: (The following items were deleted from the chart) 05/22 15:58 15:06 05/22/2020 15:06 Discharged to Home. Impression: Dislocation of proximal sv interphalangeal joint of right ring finger; Contusion of other part of head - forehead; Contusion of right hip; Fall on same level from slipping, tripping and stumbling. Condition is Stable. Forms are Medication Reconciliation Form, Thank You Letter, Antibiotic Education, Prescription Opioid Use. Follow up: Nithin Moser; When: 2 - 3 days; Reason: right hip hematoma. Follow up: Douglas Franco; When: 2 - 3 days; Reason: right fourth finger dislocation. Problem is new. Symptoms have improved. cp
--- NOTE | 2020-05-22 15:54 | RAD REPORT ---
EXAM DESCRIPTION: RAD - Finger-Thumb Right - 05/22/2020 3:02 pm CLINICAL HISTORY: post reduction Pain and swelling COMPARISON: No comparisons FINDINGS: Previously noted fourth finger PIP dislocation has been reduced. Mild soft tissue swelling is present. No fracture evident.
== END 2020-05-22 15:58 | disposition home or self-care (01) ==
LOC: ER 13:14
PROC: 2W3JX1Z Immobilization of Right Finger using Splint (ICD-10-PCS; principal; 2020-05-22)
DX: S63.284A Dislocation of proximal interphalangeal joint of right ring finger, initial encounter (principal); S00.83XA Contusion of other part of head, initial encounter; S70.01XA Contusion of right hip, initial encounter; W18.30XA Fall on same level, unspecified, initial encounter; Y93.01 Activity, walking, marching and hiking; Y92.9 Unspecified place or not applicable; Z88.3 Allergy status to other anti-infective agents; Z91.048 Other nonmedicinal substance allergy status; I10 Essential (primary) hypertension
CPT/HCPCS: 85025; 80048; 36415; 86900; 86850; 86901; 70450; 71250; 72125; 73140; 73130; 73552; 99285; 29130; Q9967; J3010; J2405; G0390

== ENCOUNTER 2020-09-14 13:23 | Inpatient (IN) | payer MEDICARE ==
--- OUTSIDE RECORDS SUMMARY | 2020-09-14 13:31 | XMS REPORT | Continuity of Care Document ---
:1940 Author Organization [facility] t Address 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 00:00: Hospita involving involving 00 l match-e-be-nash-she-wish band match-e-be-nash-she-wish band coronary coronary artery artery Essential Essential Disease Active Met hodi hypertensi hypertensi 2-16 st on on 00:00: Hospita 00 l UNK Diagnosis Active 2016-06-20 Mem oria 06-06 21:57:00 l UNK 00:00: Christopher 00 Active 06/06/2016 [facility] 433.10/353 Diagnosis Active 2012-05-17 Memoria 01 05-02 14:33:00 l 00:00: [place] 433.10/353 00 01 Active 3 [facility] CAROTID Diagnosis Active 2012-05-10 Me moria STENOSIS 04-18 21:43:00 l CAROTID 00:00: [place] STENOSIS 00 Active 04/18/2012 [facility] OTHER Diagnosis Active 2012-04-19 Mem oria 06 00:54:00 l OTHER 00:00: Christopher 00 Active 04/18/2012 [facility] 433.10, Diagnosis Active 2012-04-18 Me moria CAROTID 04-18 16:00:00 l ARTERY 433.10, 00:00: Christopher STENOSIS CAROTID 00 ARTERY STENOSIS Active 04/18/2012 [facility] DM - Problem Resolve 2012-04-28 Wilfrid mendy Diabetes d 08:59:09 l mellitus DM - [place] Diabetes mellitus Resolved Problem 04/28/2012 [facility] Hypertensi Problem Resolve 2012-04-28 Memoria on d 08:59:09 l Christopher Hypertensi on Resolved Problem 04/28/2012 [facility] Hypertensi Problem Resolve 2016-06-17 Memoria ve d 01:28:39 l disorder, Christopher systemic Hypertensi arterial ve (disorder) disorder, systemic arterial (disorder) Resolved Problem 06/17/2016 [facility] Limb Pain Problem Active 2013-04-03 Me moria 13:30:33 l Limb [place] Pain Active 4 [facility] Carotid Problem Active 2013-04-03 Wilfrid mendy Artery 13:30:33 l Stenosis Carotid Jackelyn nn Artery Stenosis Active 4 [facility] Diabetes Problem Active 2013-04-03 Mem oria Mellitus 13:30:33 l Diabetes [place] n Mellitus Active 4 [facility] Hyperchole Problem Active 2013-04-03 M emoria sterolemia 13:30:33 l [place] Hyperchole sterolemia Active 04/03/2013 [facility] Atheroscle Problem Active 2013-04-03 M emoria rosis Of 13:30:33 l The Christopher 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 With on Intermitte nt Claudicati on Active 04/03/2013 [facility] 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 Active 4 [facility] Gastroesop Problem Active 2016-06-17 M emoria hageal 01:28:39 l reflux Christopher disease Gastroesop (disorder) hageal reflux disease (disorder) Active Problem 06/17/2016 [facility] Limping Problem Active 2016-06-17 Wilfrid mendy (finding) 01:28:39 l Limping Christopher (finding) Active Problem 06/17/2016 [facility] Cough Problem Active 2016-06-17 Memor ia (finding) 01:28:39 l Cough Christopher (finding) Active Problem 06/17/2016 [facility] Diabetes Problem Active 2016-06-17 Mem oria mellitus 01:28:39 l (disorder) Diabetes He rmann mellitus (disorder) Active Problem 06/17/2016 [facility] Pure Problem Active 2016-06-17 Memor ia hyperchole 01:28:39 l sterolemia Pure Mckinley n (disorder) hyperchole sterolemia (disorder) Active Problem 06/17/2016 [facility] CAROTID Diagnosis Active 2012-05-10 Me moria SINUS 21:43:00 l SYNDROME CAROTID Jackelyn nn SINUS SYNDROME Active [facility] EMBOLISM Diagnosis Active 2016-06-20 M emoria AND 21:57:00 l THROMBOSIS EMBOLISM He rmann OF AND ARTERIES THROMBOSIS OF T OF ARTERIES OF T Active [facility] ATHSCL Diagnosis Active 2016-06-20 Mem oria CROW 21:57:00 l ARTERIES ATHSCL Mckinley n OF EXTRM W CROW INTRMT ARTERIES OF EXTRM W INTRMT Active [facility] Transient Problem Resolve 2010-2016-06-17 2016-06-17 Memoria ischemic d 1- 01:28:39 01:28:39 l attack 00:00: [place] (disorder) Transient 00 ischemic attack (disorder) Resolved 02/13/2010 Problem 06/17/2016 [facility] Allergies, Adverse Reactions, Alerts Allergy Allergy Status Severity Reaction(s) Onset Inactive Treating Comm ents Source Name Type Date Date Clinician Amoxicil Propensi Active Other (See Chest Me thodi spike-Pot ty to Comments) 2-[address] Clavulan adverse 00:00: Hospita ate reaction 00 l s to drug Iodine Propensi Active Methodi ty to 2-16 st adverse 00:00: Hospita reaction 00 l s to drug Levoflox Propensi Active Method i acin ty to 2-16 st adverse 00:00: Hospita reaction 00 l s to drug iodine iodine Active Memoria l Christopher Bactrim Bactrim Active Memoria l Christopher Metformi Adverse Active Info Not [facility] HCl Reaction Available [facility] Levaquin Adverse Active Info Not [facility] Reaction Available [facility] Family History Family Member Diagnosis Comments Start Date Stop Date Source Unknown Family Family History 2013-04-03 2013-04-03 Sissy Payne Member 13:30:33 13:30:33 Social History Social Habit Start Date Stop Date Quantity Comments Source Tobacco use and 2017-04-04 2017-04-04 Never used [facility] exposure 00:00:00 00:00:00 Social History 2016-06-08 2016-06-08 [facility] leatha 12:53:59 12:53:59 Sex [birth year] [facility] 00:00:00 00:00:00 Smoking Status Start Date Stop Date Source [facility] Ordered Filled Start Stop Current Ordering Indication Dosage Frequency Signature Comments Components Source Medication Medication Date Date Medication? Clinician (SIG) Name Name Losartan Losartan Yes Na Tripp 1 tablet [facility] Potassium Potassium 6-22 [facility] - 00:00: Memoria 00 [facility] Flonase Flonase Yes Na Tripp 1 spray in [facility] St 8-29 each [facility] aspirin Yes 81mg QD Take 81 mg Meth alberto (ECOTRIN) 2-[address] 81 MG 17:42: daily. Hospita enteric 42 l coated tablet citalopram Yes 10mg QD Take 10 mg M ethodi (CeleXA) 10 2-[address] MG tablet 17:42: daily. Hospit a 42 l losartan-hy Yes 2{tbl} QD Take 2 Me thodi drochloroth 2-[address] iazide 17:42: mouth Hospita (HYZAAR) 42 daily. l 50-12.5 mg per tablet potassium Yes 10meq Q.5D Take 10 Meth alberto chloride 2-[address] (K-DUR,KLOR 17:42: mouth 2 Hos angeline -CON) 10 42 (two) l MEQ CR times a tablet day. atorvastati 2018-0 Yes 10mg QD Take 10 mg Methodi n (LIPITOR) 2-[address] 10 MG 17:42: nightly. Hospita tablet 42 l metoprolol 2018-0 Yes 50mg Q.5D Take 50 mg M ethodi tartrate 2-[address] (LOPRESSOR) 17:42: (two) Hospi ta 50 mg 42 times a l tablet day. clopidogrel 2018-0 Yes 75mg QD Take 75 mg Methodi (PLAVIX) 75 2-[address] mg tablet 17:42: daily. Hospit a 42 l pentoxifyll 2018-0 Yes 400mg Q.[id number] Take 400 Methodi ine 2-[id number] (TRENTal) 17:42: 3D mouth 3 Hospi ta 400 mg CR 42 (three) l tablet times a day with meals. cetirizine 0 Yes 10mg QD Take 10 mg M ethodi (ZyrTEC) 10 2-[address] MG tablet 17:42: daily. Hospit a 42 l brimonidine 2017-0 Yes 1[drp] Q.5D Administer Methodi (ALPHAGAN) 2-[address] 0.2 % 17:42: both eyes Hospita ophthalmic 42 2 (two) l solution times a day. timolol 2018-0 Yes 1[drp] Q.5D Administer Me thodi (TIMOPTIC) 2-[address] 0.5 % 17:42: both eyes Hospita ophthalmic 42 2 (two) l solution times a day. latanoprost 2018-0 Yes 1[drp] QD Administer Methodi (XALATAN) 2-[address] 0.005 % 17:42: both eyes Hospi ta ophthalmic 42 nightly. l solution glipiZIDE 2018-0 Yes 10mg QD Take 10 mg Me thodi (GLUCOTROL) 2-[address] 10 MG 17:42: daily. Hospita tablet 42 l benzonatate 2017-0 Yes 100mg Q.[id number] Take 1 Methodi (TESSALON) 2-[id number] 100 MG 00:00: 3D (100 mg Hospita capsule 00 total) by l mouth 3 (three) times a day as needed for cough for up to 60 doses. Ferrlecit No Notes: Memori a 5-01 (sodium l 13:55: ferric gluconate complex (elemental iron) 62.5 mg/5 ml INJ) "Limited stability. Use immediatel y after admixture" (Same as: Ferrlecit) MEDICATION WASTE Product Size: 62.5 mg Product Wasted: ___ mg Timolol 5 No Notes: Memori a MG/ML 4-30 (Same As: l Ophthalmic 22:00: [facility] Solution 00 Betimol) Brimonidine No Notes: Wilfrid mendy tartrate 4-30 Non-formul l 1.5 MG/ML 14:00: nito. (Same [facility] Ophthalmic 00 as: Solution Alphagan-P ) Atropine No 0.5 mg, 5 Wilfrid mendy 4-30 mL, Route: l 03:37: IVP, Drug form: INJ, PRN, Dosing Weight 66.818, kg, PRN Bradycardi a, Start date: 06/11/16 22:37:00 CDT, Duration: 30 day, Stop date: 07/11/16 22:36:00 CDT Nitroglycer No Notes: Wilfrid mendy in 0.4 MG -30 (Same l Sublingual 03:37: as:Nitroqu H ermann [...] No 1 tab, Wilfrid mendy thiazide 25 4-28 Route: PO, l MG / 14:00: Drug Form: Christopher Losartan 00 TAB, Potassium Dosing 100 MG Oral Weight Tablet 66.818, kg, Daily, Start date: 06/10/16 9:00:00 CDT, Duration: 30 day, Stop date: 07/09/16 9:00:00 CDT Lasix No Notes: Memoria 4-28 (Same as: l 14:00: Lasix) Citalopram No 10 mg, 1 Mem oria 4-28 tab, l 14:00: Route: PO, Christopher Drug form: TAB, Daily, Dosing Weight 66.818, [...] With food l Tablet 04:18: or milk Christopher [Xanax] 00 (Same as: Xanax) Symbicort No Notes: Memori a 160/4.5 - (Same as: l inhalation 02:00: Symbicort) H ermann aerosol 00 WASTE: with Aerosol - adapter Return to Pharmacy atorvastati No Notes: Wilfrid mendy n - (Same As: l 02:00: Lipitor) Christopher insulin, [...] NOT capsular SHAKE) antigen before diphtheria administra [id number] tion. protein (Same as: conjugate Prevnar vaccine / 13) Streptococc us pneumoniae serotype 14 capsular antigen diphtheria [id number] protein conjugate vaccine / Streptococc us pneumoniae serotype 18C capsular antigen d Lovenox No Notes: Memoria 06-09 (Same as: l 11:00: Lovenox) Insulin, No Notes: Memoria Aspart, 06-09 Roll in l Human 02:44: palms of [place] 00 hands gently; Do not shake vigorously [...] 06-08 Drug form: l 15:54: INJ, ONCE, 00 Stop date: 06/08/16 10:54:00 CDT acetaminoph No [...] form: l (ANES) 14:51: INJ, Start Jackelyn date: 06/08/16 9:51:00 CDT, Stop date: 06/08/16 10:51:00 CDT LR 1000 mL No Route: IV, M emoria INJ (ANES) 06-08 Total l 14:30: Volume: [place] 00 1,000, Start date: 06/08/16 9:30:00 CDT, Stop date: 06/08/16 10:30:00 CDT Insulin No 6 unit, Memoria regular 06-08 Route: IV, l 14:10: ONCE, Dosing Weight 66.818, kg, Start date: 06/08/16 9:10:00 CDT, Stop date: 06/08/16 9:10:00 CDT Albuterol No Notes: Memori a 0.833 MG/ML 06-08 (Same as: l / 14:07: Duoneb) Ipratropium 00 [place] 0.167 MG/ML Inhalant Solution Calcium No 1,000 mL, Memor ia Chloride 06-08 Rate: 25 l 0.0014 14:07: ml/hr, [place] MEQ/ML / 00 Infuse Potassium over: 40 Chloride hr, Route: 0.004 IV, Dosing MEQ/ML / Weight Sodium 66.818 kg, Chloride Total 0.103 Volume: MEQ/ML / 1,000, Sodium Start Lactate date: 0.028 06/08/16 MEQ/ML 9:07:00 Injectable CDT, Solution Duration: 1 day, Stop date: 06/09/16 9:06:00 CDT Vancomycin No 2001 mg: Me moria 06-08 infuse l 12:00: [...] (ANES) 06-03 Drug form: l 17:24: SOLN, [place] 00 ONCE, Stop date: 06/03/16 12:24:00 CDT [...] form: l (ANES) 16:47: INJ, Start Jackelyn nn date: 06/03/16 11:47:00 CDT, Stop date: 06/03/16 [...] CDT, Stop date: 06/03/16 10:42:00 CDT Lactated No 1,000 mL, Wilfrid mendy Ringers 06-03 Rate: 40 l 1,000 mL 15:41: ml/hr, Infuse over: 25 hr, Route: IV, Dosing Weight 68.636 kg, Total Volume: 1,000, Start date: 06/03/16 10:41:00 CDT, Duration: 30 day, Stop date: 07/03/16 10:40:00 CDT Vancomycin No 2000 mg: Me moria 05-26 infuse l 14:00: over 2.5 Christopher 00 hours MEDICATION WASTE Product Size: 1000 mg Product Wasted: ___ mg Ancef No Notes: Memoria 05-26 Same as: l 14:00: Ancef [place] 00 Alendronic Yes 70 mg = 1 [...] tab, PO, l oral 13:58: Daily, 0 [place] tablet, 00 Refill(s) extended release Potassium Yes 10 mEq = 1 Me moria Chloride 10 4-13 tab, PO, l MEQ 13:57: BID, 0 Christopher Extended 00 Refill(s) Release Tablet [Klor-Con] pentoxifyll Yes 400 mg = 1 Memoria ine 400 mg 4-13 tab, PO, l oral 13:57: TID, 0 [place] tablet, 00 Refill(s) extended release Losartan Yes (Active) Wilfrid mendy Potassium 2-19 l TABS 13:30: 33 Clopidogrel Yes (Active) M emoria Bisulfate 2-19 l 75 MG Oral 13:30: [place] Tablet 33 Aspirin Yes (Active) Memor ia TABS 2-19 l 13:30: 33 Metoprolol Yes (Active) Me moria Tartrate 2-19 l TABS 13:30: 33 Baclofen Yes (Active) Wilfrid mendy TABS [...] tab, PO, l tablet 16:04: BID, 30 [place] 44 tab, Substituti on Allowed, TAB rosuvastati [...] tab, PO, l enteric 16:02: QAM, 30 [place] coated 25 tab, Substituti on Allowed, ECTAB [...] No Carol 20 mg, 2 Wilfrid mendy -14 Rajagopala tab, l 02:00: s Alphonso Route: PO, Her nagel 00 Drug form: TAB, QPM, Dosing Weight 69.091, kg, Start date: 04/25/12 21:00:00, Duration: 30 day, Stop date: 05/25/12 17:00:00 methylPREDN No Kowalski Lissett 20 mg, 0.5 Memoria ISolone 3-14 Cottrell mL, Route: l 01:20: IV, Drug [place] 00 form: INJ, ONCE, Start date: 04/25/12 20:20:00, Stop date: 04/25/12 20:20:00 simvastatin 2012-0 No Kowalski Lissett 10 mg, 1 Memoria 3-13 [place] tab, l 02:00: Route: PO, [place] 00 Drug form: TAB, Bedtime, Dosing Weight 69.091, kg, Start date: 04/24/12 21:00:00, Duration: 30 day, Stop date: 05/23/12 21:00:00 Benadryl 2012-0 No Sanjiv 25 mg, 1 Memor ia 3-12 [facility] tab, l 09:47: Shant Route: PO, Herm [...] 3-10 Terry 100 mL, l 15:00: Route: [place] 00 IVPB, Drug form: INJ, Q2H, Start date: 04/22/12 10:00:00, Duration: 2 doses or times, Stop date: 04/22/12 12:00:00 Geodon 2012-0 No Erasmo 10 mg, Memoria 3-10 Terminella Route: IM, l 06:52: Drug form: [place] 00 PDR/INJ, Q8H, PRN Anxiety, Start date: 04/22/12 0:52:00, Duration: 30 day, Stop date: 05/22/12 0:51:00 aspirin 325 2012-0 No Luis 325 mg, 1 Memoria mg tablet, 3-09 Guru tab, l enteric 15:00: Marcin Route: PO, He rmann coated 00 Drug form: ECTAB, QAM, Start date: 04/21/12 9:00:00, Duration: 30 day, Stop date: 05/20/12 9:00:00 famotidine 2012-0 No Erasmo 20 mg, 1 Me moria 3-09 Terminella tab, l 15:00: Route: PO, Christopher Drug form: TAB, Daily, Dosing Weight 69.091, kg, Start date: 04/21/12 9:00:00, Duration: 30 day, Stop date: 05/20/12 9:00:00 niCARdipine No Erasmo IV, Start Memoria 04-20 Terminella date: l 23:35: 04/20/12 [place] 00 17:35:00, Duration: 30, 200 ml, 69.091 Sodium 2012- No Renee 1,000 mL, Memor ia Chloride 04-20 Abousslema Rate: 70 l 0.9% IV 21:38: n ml/hr, [place] 1,000 mL 00 Infuse over: 14.3 hr, Route: IV, kg, Total Volume: 1,000, Start date: 04/20/12 15:38:00, Stop date: 05/20/12 15:37:00 Tylenol No Luis 650 mg, 1 Mem oria 3-08 Guru supp, l 21:36: Marcin Route: AK, Jackelyn nn 00 Drug form: SUPP, Q4H, [...] Terry mL, Route: l 21:27: IV, Drug [place] 00 form: INJ, Q2H, PRN Pain Score 7-10, Start date: 04/20/12 15:27:00, Duration: 30 day, Stop date: 05/20/12 15:26:00 morphine No Luis 2 mg, 1 Wilfrid mendy Sulfate 3-08 Guru mL, Route: l 21:24: Marcin IV, Drug Christopher 00 form: INJ, Q2H, [...] 1 day, Stop date: 04/21/12 9:58:00 losartan 0 No Taso 100 mg, 2 Wilfrid mendy 3-08 Mougouris tab, l 15:00: Route: PO, Christopher 00 Drug form: TAB, Daily, Dosing Weight 68.182, kg, Start date: 04/20/12 9:00:00, Duration: 30 day, Stop date: 05/19/12 9:00:00 heparin 2012-0 No Taso 5,000 Memoria 3-08 Mougouris unit, 1 l 03:00: mL, Route: [place] 00 SUB-Q, Drug form: INJ, Q12H, Dosing [...] 30 day, Stop date: 05/19/12 18:17:00 vancomycin 2012- No Luis 1 gm, 200 Memoria 3-07 [...] 3-07 Mougouris tab, l 23:00: Route: PO, Christopher 00 Drug form: TAB, BID, Dosing Weight [...] 3-07 Mougouris tab, l 23:00: Route: PO, [place] Drug form: TAB, BID, Dosing Weight 68.182, kg, Start date: 04/19/12 17:00:00, Duration: 30 day, Stop date: 05/19/12 9:00:00 aspirin 325 2012-0 No Luis 325 mg, 1 Memoria mg tablet 3- Guru tab, l 22:44: Marcin Route: PO, Jackelyn nn Drug form: TAB, Daily, Start date: 04/19/12 16:44:00, Duration: 30 day, Stop date: 05/19/12 9:00:00 Ativan 2012-0 No Taso 1 mg, 0.5 Memori a 3-07 Mougouris mL, Route: l 18:50: INJ, Drug Christopher 00 form: INJ, Q6H, Dosing [...] Mougouris mL, Route: l 18:49: IVP, Drug [place] 00 Form: INJ, Dosing Weight 68.182, kg, PRN, [...] 2012- No Taso 1 unit, Memoria aspart 3-07 Mougouris 0.01 mL, l 18:49: Route: [place] 00 SUB-Q, Drug form: SOLN, TID-Before Meals, [...] mL, Route: l 12:07: Marcin IV, Drug [place] 00 form: INJ, Q6H, Dosing Weight 68.182, kg, PRN Elevated BP, Start date: 04/19/12 6:07:00, Duration: 30 day, Stop date: 05/19/12 6:06:00, SBP >165 brimonidine Yes Taso 1 drp, Wilfrid mendy ophthalmic 04-19 Mougouris OPTH, BID, l 0.15% 08:51: 5 ml, Christopher solution 03 Substitute Allowed, SOLN latanoprost Yes Taso 1 drp, Wilfrid mendy ophthalmic - Mougouris OPTH, l 0.005% 08:50: Bedtime, 3 Jackelyn nn solution 00 ml, Substitute Allowed, SOLN timolol Yes Taso 1 drp, Memoria ophthalmic -07 Mougouris OPTH, QPM, l long-acting 08:49: 5 [...] BID, 60 l mg-500 mg 08:42: tab, [place] oral tablet 12 Substituti on Allowed, Maintenanc e, TAB baclofen Yes Taso 10 mg, PO, Mem oria - Mougouris BID, l 08:38: Substituti [place] 01 on Allowed Saline No Papo 5 ml, Memori a Flush 0.9% 04-19 Terry Route: l 06:44: IVP, Drug Form: INJ, Dosing Weight 68.182, kg, PRN, PRN Line Flush, Start date: 04/19/12 0:44:00, Duration: 30 day, Stop date: 05/19/12 1:43:00 acetaminoph No Papo 650 mg, 2 Memoria en 04-19 Terry tab, l 06:44: Route: PO, Drug form: TAB, Q4H, Dosing Weight 68.182, kg, PRN Pain/Fever , Start date: 04/19/12 0:44:00, Duration: 30 day, Stop date: 05/19/12 0:43:00 ondansetron No Papo 4 mg, 2 Memoria 04-19 Terry mL, Route: l 06:44: IVP, Drug [...] M10 with food [facility] Benzonatate Benzonatate Yes Na Tripp [address] [facility] as needed [facility] Plavix Plavix Yes Na Tripp [address] [facility] Metoprolol Metoprolol Yes Na Tripp [address] [facility] [address] Tartrate Tartrate with food Anuja kes - Memoria [facility] Pantoprazol Pantoprazol Yes Na Tripp [address] [facility] e Sodium e Sodium [facility] Aspir-81 Aspir-81 Yes Na Tripp [address] [facility] Alendronate Alendronate Yes Na Tripp [address] [facility] Sodium Sodium [facility] Cetirizine Cetirizine Yes Na Tripp TAKE ONE [facility] HCl HCl TABLET BY [facility] - MOUTH ONCE Memoria DAILY [facility] Citalopram Citalopram Yes Na Tripp take one [facility] Hydrobromid Hydrobromid tablet by [facility] - e e mouth once Memoria daily l [facility] Hyzaleonel Vargas Yes Na Tripp [address] [facility] Atorvastati Atorvastati Yes Na Tripp [address] [facility] n Calcium n Calcium at bedtime [facility] Ketoconazol Ketoconazol Yes Na Tripp [address] [facility] e e applicatio [facility] - n to Memoria affected l area [facility] Triamcinolo Triamcinolo Yes Na Tripp [address] [facility] ne ne applicatio [facility] - Acetonide Acetonide n to Memor ia affected l [facility] Metformin Metformin Yes Na Tripp [address] [facility] [address] HCl HCl with a [facility] - meal [facility] l [facility] Pentoxifyll Pentoxifyll Yes Na Tripp [address] ine ER ine ER with meals [facility] Potassium Potassium Yes Na Tripp TAKE ONE [facility] Chloride Chloride TABLET BY Anuja kes - [facility] MOUTH Memoria TWICE l DAILY [facility] GlipiZIDE GlipiZIDE Yes Na Tripp [address] [facility] Hydrochloro Hydrochloro Yes Na Tripp TAKE [address] [facility] thiazide thiazide TABLET BY Anuja kes - MOUTH ONCE Memoria DAILY l [facility] Immunizations Ordered Immunization Filled Immunization Date Status Commen ts Source Name Name Pneumococcal 2017-04-02 Completed Mandaeism Conjugate 13-Valent 00:00:00 Hospi kim Vital Signs Vital Name Observation Time Observation Value Comments Source Heart Rate 2016-06-14 16:00:00 [facility] [place] Respitory Rate 2016-06-14 16:00:00 Memori al Christopher Temperature Oral (F) 2016-06-14 16:00:00 98.4 F [facility] [place] Systolic (mm Hg) 2016-06-14 16:00:00 Wilfrid rial Christopher Diastolic (mm Hg) 2016-06-14 16:00:00 Mem orial [place] Systolic (mm Hg) 2016-06-14 12:00:00 Wilfrid rial Christopher Diastolic (mm Hg) 2016-06-14 12:00:00 Mem orial [place] Respitory Rate 2016-06-14 12:00:00 Memori al [place] Heart Rate 2016-06-14 12:00:00 [facility] Temperature Oral (F) 2016-06-14 12:00:00 98.8 F [facility] [place] Systolic (mm Hg) 2016-06-14 07:48:00 Wilfrid rial Christopher Diastolic (mm Hg) 2016-06-14 07:48:00 Mem orial [place] Respitory Rate 2016-06-14 07:48:00 Memori al Christopher Heart Rate 2016-06-14 07:48:00 [facility] Temperature Oral (F) 2016-06-14 07:48:00 98.2 F [facility] [place] Height 2016-06-08 11:57:00 152.4 cm [facility] [place] Weight 2016-06-08 11:57:00 [facility] [place] BMI Calculated 2016-06-08 11:57:00 Memori al [place] Respitory Rate 2016-06-03 23:00:00 Memori al [place] Systolic (mm Hg) 2016-06-03 23:00:00 Wilfrid rial [place] Diastolic (mm Hg) 2016-06-03 23:00:00 Mem orial Christopher Systolic (mm Hg) 2016-06-03 22:00:00 Wilfrid rial Christopher Diastolic (mm Hg) 2016-06-03 22:00:00 Mem orial [place] Systolic (mm Hg) 2016-06-03 21:30:00 Wilfrid rial [place] Diastolic (mm Hg) 2016-06-03 21:30:00 Mem orial [place] Respitory Rate 2016-06-03 18:00:00 Memori al [place] Respitory Rate 2016-06-03 17:45:00 Memori al [place] Temperature Oral (F) 2016-05-26 13:36:00 98.4 F [facility] [place] Heart Rate 2016-05-26 13:36:00 [facility] [place] Weight 2016-05-26 13:27:00 [facility] [place] BMI Calculated 2016-05-26 13:27:00 Memori al [place] Height 2016-05-26 13:27:00 152.4 cm [facility] [place] Systolic (mm Hg) 2012-04-26 19:50:00 Wilfrid rial Christopher Diastolic (mm Hg) 2012-04-26 19:50:00 Mem orial [place] Systolic (mm Hg) 2012-04-26 17:15:00 Wilfrid rial [place] Diastolic (mm Hg) 2012-04-26 17:15:00 Mem orial Christopher Temperature Oral (F) 2012-04-26 17:00:00 97.1 F [facility] [place] Diastolic (mm Hg) 2012-04-26 17:00:00 Mem orial Christopher Systolic (mm Hg) 2012-04-26 17:00:00 Wilfrid rial [place] Respitory Rate 2012-04-26 17:00:00 Memori al Christopher Heart Rate 2012-04-26 17:00:00 [facility] [place] Respitory Rate 2012-04-26 13:00:00 Memori al [place] Heart Rate 2012-04-26 13:00:00 [facility] [place] Temperature Oral (F) 2012-04-26 13:00:00 97.9 F [facility] [place] Respitory Rate 2012-04-26 09:16:00 Memori al Christopher Heart Rate 2012-04-26 09:16:00 [facility] Temperature Oral (F) 2012-04-26 09:16:00 98.3 F [facility] Christopher Weight 2012-04-20 05:54:00 [facility] [place] Height 2012-04-19 01:59:00 152.4 cm [facility] Christopher Weight 2012-04-19 01:59:00 [facility] [place] Procedures Procedure Date / Time Performed Performing Clinician [facility] e Bypass<sup>1</sup> [facility] Herm shannan Carotid endarterectomy [facility] Christopher Placement of stent in [facility] ermann cardiac conduit Stent placement [facility] [place] Bypass [facility] [place] Plan of Care Planned Activity Planned Date Details Comments Source Future Scheduled Test COVID-19 VACCINE (1) [facility] [code = COVID-19 VACCINE (1)] Future Scheduled Test SHINGLES VACCINES (#1) [facility] [code = SHINGLES VACCINES (#1)] Future Scheduled Test 65+ PNEUMOCOCCAL [facility] VACCINE (2 of 2 - PPSV23) [code = 65+ PNEUMOCOCCAL VACCINE (2 of 2 - PPSV23)] Future Scheduled Test INFLUENZA VACCINE [code [facility] = INFLUENZA VACCINE] Encounters Start End Encounter Admission Attending Care Care Encounter Source Date/Time Date/Time Type Type Clinicians Facility Department ID 2020-07-24 2020-07-24 Outpatient [facility] [id number] [facility] 2020-06-22 2020-06-22 Outpatient [facility] [id number] [facility] 2020-05-28 2020-05-28 [id number] 2020-05-25 2020-05-25 [facility] [id number] [facility] 2020-05-15 2020-05-15 [facility] [id number] [facility] 2020-05-15 2020-05-15 [facility] [id number] [facility] 2020-05-01 2020-05-01 Out[facility] [id number] [facility] 2020-04-13 2020-04-13 [facility] [id number] [facility] 2020-04-07 2020-04-07 [facility] [id number] [facility] 2020-03-13 2020-03-13 Out[facility] [id number] [facility] 2020-03-05 2020-03-05 [facility] [id number] [facility] 2020-03-05 2020-03-05 [facility] [id number] [facility] 2020-02-28 2020-02-28 [facility] [id number] [facility] 2020-02-28 2020-02-28 Out[facility] [id number] [facility] 2020-02-27 2020-02-27 Outpatient [facility] [id number] [facility] 2020-02-20 2020-02-20 Outpatient [facility] [id number] [facility] 2019-11-06 2019-11-06 Outpatient [facility] [id number] [facility] 2019-08-28 2019-08-28 [facility] [id number] [facility] 09:42:00 09:42:00 t [facility] l Medicine Outpati ent Clinics 2019-08-05 2019-08-05 [facility] [id number] 11:00:00 11:00:00 [facility] [place] [facility] l Medicine Outpati ent Clinics 2019-07-29 2019-07-29 [facility] [id number] 11:43:00 11:43:00 [facility] [place] [facility] l Medicine Outpati ent Clinics 2019-06-17 2019-06-17 [facility] [id number] 10:40:00 10:40:00 t [facility] Medicine l Medicine Outpati ent Clinics 2019-06-12 2019-06-12 [facility] [id number] [facility] 13:20[facility]00 13[facility]20[facility] 2019-06-11 2019-06-11 [facility] [id number] 10:41:00 10:41:00 [facility] [place] [facility] l Medicine Outpati ent Clinics 2019-06-05 2019-06-05 [facility] [id number] 09:20:00 09:20:00 [place] [facility] Medicine Outpati ent Clinics 2019-06-03 2019-06-03 [facility] [id number] [facility] 09:27:00 09:27:00 [place] [facility] Medicine Outpati ent Clinics 2019-04-09 2019-04-09 [facility] [id number] [facility] 08:20:00 08:20:00 [place] [facility] Medicine Outpati ent Clinics 2019-04-02 2019-04-02 [facility] [id number] [facility] 07:56:00 07:56:00 [place] [facility] Medicine Outpati ent Clinics 2019-03-12 2019-03-12 [facility] [id number] [facility] 10:53:00 10:53:00 [place] [facility] Medicine Outpati ent Clinics 2019-03-04 2019-03-04 [facility] [id number] [facility] 15:25:00 15:25:00 t Specialty/U Anuja kes - Specialty rology [facility] a [facility]Urology [facility] l Clinic Outpati ent Clinics 2019-03-04 2019-03-04 [facility] [id number] 11:34:00 11:34:00 [place] [facility] Medicine Outpati ent Clinics 2019-02-01 2019-02-01 [facility] [id number] [facility] 14:51:00 14:51:00 [place] [facility] Medicine Outpati ent Clinics 2019-01-07 2019-01-07 [facility] [id number] [facility] 14:40:00 14:40:00 [place] [facility] Medicine Outpati ent Clinics 2018-12-18 2018-12-18 [facility] [id number] 11:11:00 11:11:00 t [facility] L [facility] l Outpati ent Clinics 2018-11-30 2018-11-30 [facility] [id number] [facility] 10:10:00 10:10:[address] [facility] - Drive [facility] l Medicine Outpati ent Clinics 2018-10-14 2018-10-14 [facility] [id number] [facility] 20:24:00 20:24:[address] Luke [facility] - Drive [facility] Medicine l Medicine Outpati ent Clinics 2018-10-08 2018-10-08 [facility] [id number] 13:20:00 13:20:[address] [place] [facility] - Drive [facility] l Medicine Outpati ent Clinics 2018-09-17 2018-09-17 [facility] [id number] [facility] 12:25:00 12:25:[address] Luke [facility] - Drive [facility] Medicine l Medicine Outpati ent Clinics 2018-09-06 2018-09-06 [facility] [id number] [facility] 14:00:00 14:00:[address] [place] [facility] - Drive [facility] Medicine l Medicine Outpati ent Clinics 2018-06-07 2018-06-07 [facility] [id number] 09:40:00 09:40:00 [place] [facility] - Drive [facility] Medicine l Medicine Outpati ent Clinics 2018-05-04 2018-05-04 [facility] [id number] 16:39:00 16:39:00 [place] [facility] - Drive [facility] Medicine l Medicine Outpati ent Clinics 2018-04-11 2018-04-11 [facility] [id number] [facility] 11:39:00 11:39:[address] [place] [facility] - Drive [facility] Medicine l Medicine Outpati ent Clinics 2018-03-14 2018-03-14 [facility] [id number] [facility] 11:56:00 11:56:[address] [place] [facility] - Drive [facility] Medicine l Medicine Outpati ent Clinics 2018-03-09 2018-03-09 [facility] [id number] [facility] 14:57:00 14:57:[address] [place] [facility] - Drive [facility] Medicine l Medicine Outpati ent Clinics 2018-03-05 2018-03-05 [facility] [id number] [facility] 09:30:00 09:30:[address] [place] [facility] - Drive [facility] l Medicine Outpati ent Clinics 2018-01-08 2018-01-08 [facility] [id number] [facility] 10:15:00 10:15:[address] [place] [facility] - Drive [facility] Medicine l Medicine Outpati ent Clinics 2017-10-11 2017-10-11 [facility] [id number] [facility] 15:45:00 15:45:[address] [facility] - Drive [facility] l Medicine Outpati ent Clinics 2017-08-21 2017-08-21 [facility] [id number] [facility] 15:00:00 15:00:[address] [place] [facility] - Drive [facility] Medicine l Medicine Outpati ent Clinics 2017-06-20 2017-06-20 [facility] [id number] [facility] 16:33:00 16:33:[address] [facility] - Drive [facility] Medicine l Medicine Outpati ent Clinics 2017-06-15 2017-06-15 [facility] [id number] [facility] 10:42:00 10:42:[address] [place] [facility] - Drive [facility] Medicine l Medicine Outpati ent Clinics 2017-06-02 2017-06-02 [facility] [id number] [facility] 12:11:00 12:11:[address] [place] [facility] - Drive [facility] Medicine l Medicine Outpati ent Clinics 2017-05-23 2017-05-23 [facility] [id number] [facility] 20:14:00 20:14:[address] [place] [facility] - Drive [facility] Medicine l Medicine Outpati ent Clinics 2017-05-22 2017-05-22 [facility] [id number] [facility] 14:00:00 14:00:[address] [place] - Drive [facility] Medicine l Medicine Outpati ent Clinics 2016-06-08 2016-06-14 Outpatient BRAYDEN Burch [facility] [id number] 09:04:00 13:19:00 Luis Garvey 2016-06-03 2016-06-03 Outpatient BRAYDEN Burch [facility] [id number] 08:42:00 18:11:00 Luis Garvey 2013-04-03 2013-04-03 Outpatient 3 3 [id number] 07:30:34 07:30:33 2013-03-27 2013-03-27 Outpatient 3 3 [id number] 09:36:24 09:36:24 2013-01-30 2013-01-30 Outpatient 3 3 [id number] 12:32:34 12:32:34 2012-06-12 2012-06-12 Outpatient 3 3 [id number] 11:18:59 11:18:59 Results Test Description Test Time Test Comments Results Result Comments Source CHEM PANEL 2016-06-13 86 [facility] 11:25:00 CHEM PANEL 2016-06-13 8.9 [facility] [...] code = MCH) 26.8 pg 27.0-31.0 [facility] WnyxmhvSYDQVSALGD6190-21-62 11:25:13507Tnqcmyrz HermannHEMATOLOGY 2016-06-13 11:25:009.9[facility] GqrlwesLUWNVCXFCF5794-47-89 11:25:008.2[facility] ZzgykmsJHJLKWTANG2577-91-80 11:25:003.05[facility] IipctlpNXAVDICZYI9007-65-57 11:25:0078.5[facility] OhwfldjNYRMKSJWEM6229-86-18 11:25:0023.9[facility] OURZRZZMUO1092-07-72 11:25:001+ *ABN*(06/13/16 6:25 AM)[facility]ann[facility]MATOLOGY 2016-06-13 11:25:000.1[facility] AmwkgunZAEUBKUVED0991-33-97 11:25:000.2[facility] PzrpfzoPEXGPZUEXX6832-57-57 11:25:000.7[facility] WxvvqdcLEIIMPRIFX0693-83-52 11:25:0017.6[facility] QswwltpCZIVECPDSD3241-37-00 11:25:0073.1[facility] GYTVTFWIHK1834-26-01 11:25:000.5[facility] MyufupqVCPIAZPIMP4420-67-16 11:25:002.2 [facility] YjowqhcTQXCLUPGIH5723-59-73 11:25:006.6[facility] HermannHEMATOLOGY 2016-06-13 11:25:001.7[facility] PpeqsojYBZNEDGSJZ7697-52-77 11:25:007.2[facility] AuxfuahDVQTBALCUL0881-61-50 02:08:008.0[facility] KhonorcEOZNBNCUDM9895-64-80 02:08:0024.0[facility] ARJPOFR6750-34-48 11:30:00Product available 1(06/10/16 6:30 AM)[facility]annCHEM OMMXG7471-54-77 09:06:0085 [facility]annCHEM PVRHE8862-71-30 09:06:000.66[facility] HermannCHEM PANEL 2016-06-10 09:06:003.9[facility] HermannCHEM PAQCF9833-03-50 09:06:43518Gnmqpcog HermannCHEM DVDBC7208-21-74 09:06:02436Nxokbbho HermannCHEM NPIVM9055-03-78 09:06:0025[facility] HermannCHEM HNVWV8330-37-39 09:06:0012.9[facility] HermannCHEM OWYCR3127-30-78 09:06:007.9[facility] HermannCHEM ULSGJ6017-89-34 09:06:32194 [facility]annCHEM UAIRQ8173-28-71 09:06:0019[facility] HermannCHEM PANEL 2016-06-10 09:06:002.1[facility] HermannCHEM ADPGG7523-73-35 09:06:002.8[facility] LrraoguGISYVIAKUH9616-87-89 09:06:007.3[facility] QriafmuQNSQMOUIYW7525-16-17 09:06:002.77[facility] YxqqowoLRAEVBWZYV4846-32-35 09:06:008.1[facility] TNAFQETRRS1041-77-15 09:06:009.8[facility] OmpyhisHBWNHDYVJA5062-73-93 09:06:00768 [facility] RmhcxshLYVYRYSHRE0998-48-49 09:06:0078.7[facility] HermannHEMATOLOGY 2016-06-10 09:06:0016.6[facility] TrxfbzvCHZZLSYKCE4773-75-77 09:06:0033.4[facility] WctdulnVKMAXIUZGB0811-70-00 09:06:0021.8[facility] RcotbjgIYIFPQXNRE5923-67-64 09:06:00 Test Item Value Reference Range Interpretation Comments MCH (test code = MCH) 26.3 pg 27.0-31.0 [facility] GebyqhxNWVWHOSDYQ3097-64-84 09:06:001+ *ABN*(06/10/16 4:06 AM)[facility] WmgdeozWWGXXINZBH4397-54-29 09:06:005.6[facility] FaudrmcURBOZCMBJT1749-05-20 09:06:000.1[facility] DbatrrjTDVLGXYAPO4534-68-26 09:06:000.5[facility] [place] XOMPSCROBG0258-28-64 09:06:000.3[facility] BmthaopSIYFNADPMC4624-97-70 09:06:001.9 [facility] VdqacdsUDENZYFIYF3942-83-05 09:06:000.9[facility] HermannHEMATOLOGY 2016-06-10 09:06:006.5[facility] RnbsxtwBAUXFJMGRM4515-11-65 09:06:0023.3[facility] HqxeucfIWFIMSVRMF1170-32-27 09:06:0069.0[facility] HermannCHEM TLOEP1643-76-41 09:37:0084[facility] HermannCHEM SKCIZ3402-80-27 09:37:000.70[facility] HermannCHEM VLAQD6284-46-14 09:37:003.8[facility] HermannCHEM JTWAK3609-50-42 09:37:07007 [facility] HermannCHEM JJTSQ7327-87-61 09:37:83403Vmwlawbb HermannCHEM PANEL 2016-06-09 09:37:0020[facility] HermannCHEM SFOUI5421-51-82 09:37:007.6[facility] HermannCHEM JNESZ2058-28-09 09:37:45794Tyrnrqon HermannCHEM OAGQX0597-07-54 09:37:0010.8[facility] HermannCHEM VCVQK5895-28-47 09:37:0028[facility] [place] YCVNEJHSCQ8726-32-21 09:37:003.07[facility] KgzndmmZUHMWBZVRW3088-10-22 09:37:00 77.3[facility] EwiftykIFOMUZNKGT7167-64-14 09:37:009.5[facility] HermannHEMATOLOGY 2016-06-09 09:37:0033.5[facility] SiszktqUNSSHKIRKR1200-32-26 09:37:0016.4[facility] MoarrnrUXPHOAUDAD1067-30-24 09:37:00 Test Item Value Reference Range Interpretation Comments MCH (test code = MCH) 25.9 pg 27.0-31.0 [facility] TqkdnthYRVJIWJHYZ1741-78-73 09:37:28115Lcuwyltq HermannHEMATOLOGY 2016-06-09 09:37:009.1[facility] XtjxrjhDAINDFQAXU1843-50-76 09:37:001+ *ABN*(06/09/16 4:37 AM)[facility] QvuwmojQYOTLHWPBR8529-37-22 09:37:0013.1[facility] VsfljgqDQGMVJFEXS7804-64-28 09:37:007.3[facility] LbdjcvkCZFBVDXXEP5593-30-94 09:37:007.6[facility] XcavoknGCGSIMUEJI1155-42-71 09:37:000.2[facility] [place] JSEKCLBWSM5912-23-29 09:37:0079.4[facility] KrmptxxFFAJWMITLH4090-24-63 09:37:00 1.3[facility] OewfvjaXJUQPXMSHQ9511-27-99 09:37:000.7[facility] HermannBACTERIAL - YBNRSQHA0479-51-71 18:43:00Negative (06/08/16 1:43 PM)[facility] XASTXRF4479-57-94 12:38:00Negative (06/08/16 7:38 AM)[facility] HermannHEMATOLOGY 2016-06-08 12:38:001.04[facility] PjgxnjzEARHTNMGOM0188-57-08 12:38:00 Test Item Value Reference Range Interpretation Comments PT (test code = PT) 13.8 s 12.0-14.7 [facility] MfzevzbKLPHMHNPNK9628-96-76 12:38:00 Test Item Value Reference Range Interpretation Comments PTT (test code = PTT) 30.6 s 22.9-35.8 [facility] PjyfoqtXABGCWJZTS7743-59-13 12:38:000.2[facility] HermannHEMATOLOGY 2016-06-08 12:38:001.6[facility] HermannCHEM PTPBU4519-57-86 14:42:0062[facility] HermannCHEM VKCKR6359-50-38 14:42:31287Afvyvijc HermannCHEM TOUPS1476-85-26 14:42:000.90[facility] HermannCHEM LAVDK3253-78-94 14:42:06171Xudkaklp HermannCHEM AFVNW6229-68-67 14:42:003.6[facility] HermannCHEM OSVPJ7851-03-61 14:42:0030 [facility] HermannCHEM RNDXX1932-82-97 14:42:008.9[facility] HermannCHEM PANEL 2016-05-26 14:42:71775Luyumtim HermannCHEM PAHPL2885-77-59 14:42:0020[facility] HermannCHEM SAHBH3749-54-21 14:42:0011.6[facility] OysuwusSRTNGFRHMV8211-52-50 14:42:001+ *ABN*(05/26/16 9:42 AM)[facility] KwxtsppRALATRNDKM6368-54-93 14:42:00 0.5[facility] VidnifaCYRTTJNISB2692-18-53 14:42:000.2[facility] HermannHEMATOLOGY 2016-05-26 14:42:001.6[facility] VvlvrixXNDBUWGJJW6243-77-91 14:42:006.9[facility] LsptlejZCBLWQVIYK3177-62-03 14:42:000.4[facility] EtsotkiWSXBROJIZK1513-77-74 14:42:004.9[facility] GutxulmGHNCAJEGNQ2057-85-29 14:42:001.8[facility] [place] CZRWGJVTPG4970-98-30 14:42:0017.4[facility] KycdzjpJDWBKWWREE5241-70-72 14:42:00 75.5[facility] XnuptqsKPEAPYFKHT4997-21-78 14:42:25735Ztaltwuy HermannHEMATOLOGY 2016-05-26 14:42:00 Test Item Value Reference Range Interpretation Comments MCH (test code = MCH) 25.9 pg 27.0-31.0 [facility] NcpbudcVMZCCFBHAX5274-79-58 14:42:009.8[facility] HermannHEMATOLOGY 2016-05-26 14:42:0016.2[facility] YbwqkccWQQRJHHBYD1110-55-30 14:42:0033.0[facility] ScdahqnTNAMQNGYII4568-38-80 14:42:0037.2[facility] TrgjkbuQZJOUWBAKJ2282-30-95 14:42:0078.3[facility] PrcwiyjEUSFZKZUBL9443-15-24 14:42:0012.3[facility] XQBUOLJMRR6545-75-35 14:42:004.75[facility] TwrclmvUJZJEXPRGD3030-18-51 14:42:00 9.2[facility] NtkuecbCJFRZAIPXW7696-50-48 14:42:00 Test Item Value Reference Range Interpretation Comments PT (test code = PT) 13.8 s 12.0-14.7 [facility] FoapeqnDZISHGOGBM6466-29-33 14:42:001.04[facility] HermannHEMATOLOGY 2016-05-26 14:42:00 Test Item Value Reference Range Interpretation Comments PTT (test code = PTT) 32.1 s 22.9-35.8 [facility] HermannBEDSIDE GLUCOSE WAFLNZL3679-14-02 20:21:34310Kpvewvmr Christopher BEDSIDE GLUCOSE KVHMXNP9995-12-14 16:28:09076Hromhmye HermannBEDSIDE GLUCOSE PZDGOWB8035-62-96 11:13:38713Vomlplvz BiyewwpGRFINXBCA8275-36-61 10:31:82538 [facility] LhkpereGPEPSYQJL5731-22-06 10:31:15171Vmxbhwrw HermannCHEMISTRY 2012-04-25 10:31:003.6[facility] ExafgcgAALYRGEWU2471-58-89 10:31:0096[facility] LkitqrrJPPKYHZMQ5435-44-39 10:31:000.5[facility] VbbhylnYTXQWDUSY4128-17-08 10:31:0028[facility] YbmhercHYTVNGGZY3460-05-66 10:31:007.8[facility] RWANMAIQH5127-29-35 10:31:0014[facility] DzxmiplGPYOFATLF6196-01-68 10:31:38615 [facility] ZfumxfkUGQEMUGDC1629-01-10 10:31:0014.6[facility] HermannHEMATOLOGY 2012-04-25 10:31:13579Rxymmhbp HjvdgntKFOWNSNXQY1368-52-41 10:31:0032.4[facility] XvskcfrLKAYVRKQNB6403-26-77 10:31:0015.7[facility] FxoshvmHFXJQMEFSJ9008-93-34 10:31:00 Test Item Value Reference Range Interpretation Comments MCH (test code = MCH) 26.8 pg 27.0-31.0 L [facility] IlmucuzFXUIURAENO8058-75-80 10:31:0082.8[facility] HermannHEMATOLOGY 2012-04-25 10:31:009.9[facility] ImjiylqWZJGZGNMWC6364-21-82 10:31:0029.4[facility] KmxmvutQBBYTSGLQK7887-98-42 10:31:009.5[facility] NpnmczzBKWCTOOMEF2921-78-59 10:31:003.55[facility] GcqotfcEJUQNNUPXZ2730-36-27 10:31:008.9[facility] [place] JIAHHYNAYS8998-40-23 10:31:007.2[facility] GgidtebCGIWEYPJYJ8035-05-93 10:31:000.1 [facility] RifgvimXHPGNJWEFV0119-90-00 10:31:000.0[facility] HermannHEMATOLOGY 2012-04-25 10:31:000.4[facility] WsyxhldNOXGHPVQED5372-89-09 10:31:000.4[facility] QprokhcGNEILNDWCF6740-47-34 10:31:000.8[facility] FnuzeihTNOAAGQYAS6585-65-11 10:31:004.8[facility] AxlfmptOVTWSUOCOU6548-24-56 10:31:004.8[facility] WKFBWMQCCH3765-75-97 10:31:008.9[facility] MtjqtdeZWNIAKRTER8135-65-90 10:31:00 81.4[facility] AlbwljzYQUUZCPTX5140-33-19 08:47:002.1[facility] HermannCHEMISTRY 2012-04-24 08:47:29668Dffavxgy ZyexrbmYLMXQHMWF5056-94-90 08:47:003.5[facility] ZgvpbxyVIPBJGDVP5215-65-93 08:47:36983Ppnacsyk WinvqlaAENHVOJRZ0801-00-63 08:47:002.7[facility] WkqqpiuIXOVYUEOT2979-55-86 08:47:001.0[facility] [place] VCLWSDNOU8444-92-77 08:47:000.9[facility] OmathalDXQSVHJHY1456-50-24 08:47:0012 [facility] NipilteBVCXOABAQ7615-19-13 08:47:0060[facility] HermannCHEMISTRY 2012-04-24 08:47:000.5[facility] RviixoqQLDZWTVOI2926-76-05 08:47:0031[facility] OabkgdwPDUBTSPHB0074-81-63 08:47:0093[facility] OvuwilfNEJNJYJPR6178-70-45 08:47:0014[facility] OwrrqkmJFDLMHLDR4644-44-48 08:47:0010.5[facility] ZKCUXAWDO5893-48-24 08:47:005.3[facility] HwlemzuOMQWBHOWL9440-15-87 08:47:002.6 [facility] VhrvcehPRSBSAQQD4961-70-45 08:47:007.6[facility] HermannCHEMISTRY 2012-04-24 08:47:0028[facility] HtsqntwNLQXJBCRB7732-30-25 08:47:009[facility] ZemcicvAKQTSFLDF3910-93-66 08:47:0096[facility] KqqyzdhQFRXSQKBRN2645-35-30 08:47:000.4[facility] IigreuqWHYZECRGKB0365-18-16 08:47:000.3[facility] [place] DGJTYRFEZG6887-63-78 08:47:000.0[facility] WecdxzhKCPQAYZSFE9782-04-21 08:47:003.3 [facility] NonufdmJURHFPKCAT8786-86-23 08:47:000.2[facility] HermannHEMATOLOGY 2012-04-24 08:47:007.4[facility] UmaelzsAIXHPLRYNJ5942-27-52 08:47:000.9[facility] ZjsqjsaPNALFXZMWP1320-01-56 08:47:004.7[facility] GtnpsrpEXTBQHGQVE3547-66-98 08:47:0010.1[facility] KsdlhmuWSTVUNJBHQ9014-48-30 08:47:0081.7[facility] WCEIJRTVGC2112-49-43 08:47:009.8[facility] KgvzsljJKBNBPDKNA4318-33-39 08:47:00 32.4[facility] LswansaTLMNIWDQLF5746-87-71 08:47:0015.8[facility]annHEMATOLOGY 2012-04-24 08:47:80242Mkaoorhv ZswyvoqBUKEZGXHWS0471-76-98 08:47:0029.1[facility] AitmmmlZXOCCOLINU3865-29-58 08:47:003.53[facility] DtsxkroSSWHNXULQA1651-42-40 08:47:009.1[facility] NvwwxokRAZAZEFMQK5180-11-06 08:47:009.4[facility] WSBNTXFWRV7501-66-08 08:47:00 Test Item Value Reference Range Interpretation Comments MCH (test code = MCH) 26.7 pg 27.0-31.0 L [facility] VifjmjmWLPEMRDAKV3327-75-98 08:47:0082.4[facility] HermannCHEMISTRY 2012-04-23 10:08:002.0[facility] SsysglnSPDHFXMHZ8382-45-24 10:08:001.0[facility] CkrnbgdISMHSKYDG3590-45-33 10:08:002.8[facility] PequmwuEPBEWOMWP9037-18-60 10:08:0026[facility] RssgicvXYUSVRUKC3406-13-93 10:08:0013.8[facility] EBAJPULCH7543-33-52 10:08:0016[facility] UgqefutMIZCMDELQ6350-06-32 10:08:0070 [facility] UnublokTQAFMHRNC7804-33-17 10:08:005.5[facility] HermannCHEMISTRY 2012-04-23 10:08:002.7[facility] WkvehynOCRMMBAQR3836-96-12 10:08:000.5[facility] LvuknznYZLYWBANV8123-82-69 10:08:0010[facility] BrrtyveZRCUCYHZN7222-76-62 10:08:0096[facility] MsewmudTTWEVQUXQ2550-41-49 10:08:0013[facility] CHVPCMTJS2799-39-85 10:08:000.5[facility] AiwubzvJSUHQHMTP9947-58-65 10:08:91387 [facility] FhzejknIBEXBWMIT0439-55-65 10:08:003.8[facility] HermannCHEMISTRY 2012-04-23 10:08:06111Mkmgmcfe UexpuigGJTBLWBJJ7167-05-22 10:08:04920Qwunctbw DqwogyfYPKUOPVWX2580-90-09 10:08:007.4[facility] WrmdtgvLEHJCRVVD1533-95-16 10:08:0028[facility] XhamlljISPIWJXUHQ5104-49-42 10:08:009.9[facility] OKKKUPRLRB9070-51-93 10:08:05111Phcjzsok RnzjzorZBKGJZMPPC3840-25-02 10:08:00 15.9[facility] YramnifIWAZKYGCTT0170-05-97 10:08:0032.4[facility]annHEMATOLOGY 2012-04-23 10:08:0030.6[facility] OkagpckKVGLLPYAGK4553-29-17 10:08:003.70[facility] DyslsilGFGVHNMUVS4304-70-99 10:08:0011.2[facility] EevqvzkXUUTOBUOSY3189-61-76 10:08:009.9[facility] XedlmmgAQLJMDPDUW4624-55-47 10:08:0082.7[facility] VMOSWJBKUM5349-80-39 10:08:00 Test Item Value Reference Range Interpretation Comments MCH (test code = MCH) 26.8 pg 27.0-31.0 L [facility] RebzfkhDPMYKTOMEU7309-40-40 10:08:002.0[facility]annHEMATOLOGY 2012-04-23 10:08:004.0[facility] EkbbxclAUKYUXDPWK4624-48-42 10:08:000.1[facility] TnbpwwrJOWMRHXEHG0222-70-07 10:08:000.0[facility] DegiygtMWWSFTUWDL1620-19-14 10:08:000.2[facility] KmyvamkYXLMTBOJBD9434-38-90 10:08:001.4[facility] EVZATCDNZK6896-38-14 10:08:009.1[facility] LzwmixpNLAZFMBZQW2982-02-88 10:08:000.5 [facility] OeekqynYODOENARYR8924-26-23 10:08:0081.5[facility]annHEMATOLOGY 2012-04-23 10:08:0012.4[facility] XrjavorNERTUGICF3227-31-22 10:40:000.4[facility] FbpvspbXCRJPSBBB1547-35-47 10:40:0018[facility] EgglfwpIDBXXJUOT6090-64-47 10:40:0062[facility] AzsfalgFNLSWUENM7364-98-17 10:40:006.1[facility] AQOPHWKZE4176-33-43 10:40:0014[facility] MuzjcpqWCRKLWXAM6077-94-32 10:40:002.7 [facility] EbqsrxxUCRHBXFEJ6933-04-15 10:40:000.8[facility]annCHEMISTRY 2012-04-22 10:40:003.4[facility] WmzysujTUGRYHQHU9202-22-67 10:40:0014[facility] ArjmpqtSJZKDKMOIQ2907-98-68 18:27:00Occasional /LPF *NA*(04/21/2012 12:27:00) [facility] IerpubqRXDPFDWCOQ6621-65-36 18:27:00Moderate *ABN*(04/21/2012 12:27:00) [facility] BiheuhaSDZIUVOPEH8267-89-98 18:27:006[facility] HermannURINALYSIS 2012-04-21 18:27:0034[facility] GtfjmyyCBUGVNUXNF9261-03-06 18:27:00Occasional /HPF *NA*(04/21/2012 12:27:00)[facility] DoqlufyWONBXWGIYI0390-84-58 18:27:00Few /LPF *NA*(04/21/2012 12:27:00)[facility] PycbjvaRPORZFQELS5353-97-62 18:27:00 Occasional /HPF *NA*(04/21/2012 12:27:00)[facility] QtffvfoNNDXEQLDEL5547-84-56 18:27:00Negative *NA*(04/21/2012 12:27:00)[facility] MaslwzuREUJHOCDCZ3975-39-42 18:27:00Moderate *ABN*(04/21/2012 12:27:00)[facility] NimplxiUYLDTVSHIF7115-96-66 18:27:00Negative (04/21/2012 12:27:00)[facility] LgsmlbeAPIXFRIHSK7457-38-01 18:27:00Negative mg/dL *NA*(04/21/2012 12:27:00)[facility] HermannURINALYSIS 2012-04-21 18:27:0020 mg/dL *ABN*(04/21/2012 12:27:00)[facility] HermannURINALYSIS 2012-04-21 18:27:00Negative mg/dL (04/21/2012 12:27:00)[facility] Christopher JPLJTGTNHR9386-94-58 18:27:00Clear (04/21/2012 12:27:00)[facility] PRMDAPEIZU3938-91-13 18:27:005.0[facility] SesqpvrYICXICXBYO0521-56-32 18:27:00 1.011[facility] HvaitwwXZCVHDMWT4842-82-67 09:55:002.8[facility] HermannCHEMISTRY 2012-04-21 09:55:001.8[facility] VmoeeoxCDAEFGEJH7742-10-41 00:11:002.9[facility] KsmstivWLIUCEFYIS1791-89-65 00:11:00Normal (04/20/2012 18:11:00)[facility] [place] ZQNPPRADLN3966-25-12 00:11:00Normal (04/20/2012 18:11:00)[facility] BACTERIAL - NVWEWYFT6492-71-14 22:00:00Negative 1(04/20/2012 16:00:00)[facility] GbgbxvyKKTMMNFPO6478-91-71 10:47:39014Gan[place]igs DjhbqrkUATOKYOGP1778-45-94 10:47:70500Cwhiskpe XyrnctsPXVCEXSVJ7706-55-10 10:47:39962Tdqkcmqm Christopher PXJYQYTJO4466-66-42 10:47:0036[facility] TbtxyedBZWQMATWV5723-95-23 10:47:005.86 [facility] UdihxorDUGOWYWNC0732-75-75 10:45:000.631[facility] HermannCHEMISTRY 2012-04-19 10:45:003.2[facility] TadriuuZRLFDVEVAR3503-17-86 10:45:00 Test Item Value Reference Range Interpretation Comments PTT (test code = PTT) 35.0 s 22.9-35.8 N [facility] YaqcxpiYUBBAFQVVA1093-85-65 10:45:00 Test Item Value Reference Range Interpretation Comments PT (test code = PT) 14.0 s 12.0-14.7 N [facility] UewbygfTCGWFZBADV1878-13-33 10:45:001.06[facility] HermannCHEMISTRY 2012-04-19 03:05:0086[facility] OwydhudAZBJDFDHP1438-68-45 03:05:15104Urremngd JncrvtaTPZQOTMXY3769-15-78 03:05:000.9[facility] NwgldcyNFYWGOJQW3625-90-52 03:05:00<0.02[facility] XlqrrfpVKHJPMNPK3580-93-98 03:05:000.7[facility] [place] TTQSYFFDTE2732-84-95 03:05:000.95[facility] ZopiiitPPKVKXXEQX7797-14-82 03:05:00 Test Item Value Reference Range Interpretation Comments PTT (test code = PTT) 34.0 s 22.9-35.8 N [facility] RgyuaxmSVBXDJSTCC2858-96-30 03:05:00 Test Item Value Reference Range Interpretation Comments PT (test code = PT) 12.9 s 12.0-14.7 N [facility] ImgilohTLLXCWIRBB5826-08-98 03:05:00Normal (04/18/2012 21:05:00) [facility] UqaghtnHZEFTLSHSM5812-64-74 03:05:00Normal (04/18/2012 21:05:00) [facility] ScsnhboRLXFWFLWXM9789-29-41 03:05:00Negative (04/18/2012 21:05:00) [facility] IsikzvrWOTHMOKIOF5394-18-86 03:05:00Negative (04/18/2012 21:05:00) [facility] DuqhvvmEKIWLCDDML1043-71-55 03:05:00Negative *NA*(04/18/2012 21:05:00) [facility] GidsrgrFPEKFNNDWX3923-17-41 03:05:003[facility] HermannURINALYSIS 2012-04-19 03:05:00Occasional /LPF *NA*(04/18/2012 21:05:00)[facility] [place] ATLUNZUHKF2532-56-75 03:05:00Occasional /HPF *NA*(04/18/2012 21:05:00)[facility] CytsggpTOXSKBGKJS0422-48-11 03:05:00<1[facility] WnfewonNDRQZDWPDT9326-47-93 03:05:008.0[facility] FklewfsQBFEDGKSFE0588-82-47 03:05:00Small *ABN*(04/18/2012 21:05:00)[facility] CjkuwteIVRLMTDBET6451-06-12 03:05:00Negative mg/dL *NA*(04/18/2012 21:05:00)[facility] ZxeppaiQAOBWGNWGW6297-50-84 03:05:00Negative mg/dL *NA*(04/18/2012 21:05:00)[facility] GeyphfkLVIWLSGCJB0271-51-40 03:05:00 Negative mg/dL (04/18/2012 21:05:00)[facility] HvakxynPDORXUWQJZ6019-88-55 03:05:00Clear (04/18/2012 21:05:00)[facility] WdqusheSCXWPUUACG2211-77-74 03:05:00 1.003[facility]
--- NOTE | 2020-09-14 16:24 | RAD REPORT ---
EXAM DESCRIPTION: RAD - Chest Pa And Lat (2 Views) - 09/14/2020 4:18 pm CLINICAL HISTORY: COUGH Chest pain. COMPARISON: Chest Single View dated 03/16/2020; Chest Single View dated 07/03/2018; Chest Pa And Lat (2 Views) dated 12/28/2017; Chest Pa And Lat (2 Views) dated 03/30/2017 FINDINGS: Mild to moderate pulmonary edema is seen. The heart is moderately enlarged in size. No dis placed fractures. Sternotomy wires present. IMPRESSION: Mild to moderate CHF.
[2020-09-14] MEDS ORDERED: FUROSEMIDE 20 MG/ 2ML VIAL ONE (19:03)
[2020-09-14 19:08] LABS: Absolute Lymphocytes (CBC) 2.3 K/uL (0.7-4.9); Basophils % 0.4 % (0-1.3); Hematocrit 35.5 % (36.0-45.0); Lymphocytes % 20.5 % (15.3-44.8); MPV 8.8 fL (7.6-11.3); RBC Red Blood Cell Count 4.35 M/uL (3.86-4.86)
[2020-09-14 19:09] LABS: Protime INR 1.2
[2020-09-14 19:32] LABS: ALT/SGPT 25 U/L (12-78); AST/SGOT 18 U/L (15-37); Albumin 3.6 g/dL (3.4-5.0); Alkaline Phosphatase 100 U/L (45-117); BUN Blood Urea Nitrogen 16 mg/dL (7-18); Bicarbonate 27 mmol/L (21-32); Bilirubin Direct 0.3 mg/dL (0-0.2); Bilirubin Total 0.8 mg/dL (0.2-1.0); Glucose Level 148 mg/dL (74-106); Magnesium 1.8 mg/dL (1.8-2.4); NT PRO-BNP 4823 pg/mL (<450); Protein, Total 8.3 g/dL (6.4-8.2); Sodium Level 142 mmol/L (136-145); Troponin (Emerg Dept Use Only) < 0.02 ng/mL (0.0-0.045)
[2020-09-14 19:33] LABS: Potassium 2.8 mmol/L (3.5-5.1)
[2020-09-14] MEDS ORDERED: POTASSIUM 25 MEQ EFFERV TAB ONE (20:35)
--- NOTE | 2020-09-14 21:18 | ER ---
Nurse's Notes [facility] Name: Eva Haskins Age: 80 yrs Sex: Female : 1940 Arrival Date: 09/14/2020 Time: 13:32 Bed 17 Private MD: [place] Tripp Diagnosis: Hypokalemia;Congesive heart failrue - New onset Presentation: 09/14 15:57 Chief complaint: Patient states: SOB, nonproductive cough since Monday , denies chest iw pain. Coronavirus screen: difficulty breathing. Ebola Screen: Patient negative for fever greater than or equal to 101.5 degrees Fahrenheit, and additional compatible Ebola Virus Disease symptoms Patient denies exposure to infectious person. Patient denies travel to an Ebola-affected area in the 21 days before illness onset. No symptoms or risks identified at this time. Initial Sepsis Screen: Does the patient meet any 2 criteria? No. Patient's initial sepsis screen is negative. Does the patient have a suspected source of infection? No. Patient's initial sepsis screen is negative. Risk Assessment: Do you want to hurt yourself or someone else? Patient reports no desire to harm self or others. Onset of symptoms was September 11, 2020. 15:57 Method Of Arrival: Ambulatory iw 15:57 Acuity: DEVON 3 iw Triage Assessment: 17:30 General: Appears distressed, uncomfortable, Behavior is cooperative, appropriate for bp age, anxious. Pain: Denies pain. EENT: No deficits noted. Neuro: Level of Consciousness is awake, alert, obeys commands, Oriented to Appropriate for age. Cardiovascular: No deficits noted. Respiratory: Reports shortness of breath cough that is Airway is patent Respiratory effort is even, unlabored. GI: No signs and/or symptoms were reported involving the gastrointestinal system. : No signs and/or symptoms were reported regarding the genitourinary system. Derm: No deficits noted. Musculoskeletal: No deficits noted. Historical: - Allergies: 15:58 Iodine; iw 15:58 Levofloxacin; iw Screenin:00 Abuse screen: Denies threats or abuse. Denies injuries from another. Nutritional bp screening: No deficits noted. Tuberculosis screening: No symptoms or risk factors identified. Fall Risk None identified. Assessment: 17:30 General: SEE TRIAGE NOTE. bp 18:58 Reassessment: No changes from previously documented assessment. Patient and/or family bp updated on plan of care and expected duration. Pain level reassessed. Patient is alert, oriented x 3, equal unlabored respirations, skin warm/dry/pink. Vital Signs: 15:57 BP 199 / 107; Pulse 98; Resp 20; Temp 98.4; Pulse Ox 96% on R/A; iw 18:57 BP 177 / 94; Pulse 101; Resp 17; Pulse Ox 94% ; bp ED Course: 13:32 Patient arrived in ED. mr 13:32 [place] Tripp MD is Private Physician. mr 15:58 Triage completed. iw 15:58 Arm band placed on. iw 16:00 Patient has correct armband on for positive identification. Bed in low position. Call bp light in reach. Side rails up X2. 16:15 XRAY Chest Pa And Lat (2 Views) In Process Unspecified. EDMS 17:28 Cristino Florez RN is Primary Nurse. bp 17:30 Isidro Alonso NP is PHCP. pm1 17:30 Umesh Miller MD is Attending Physician. pm1 18:50 Inserted saline lock: 22 gauge in right forearm, using aseptic technique. Blood bp collected. 19:33 Notified Nurse Practitioner and/or Physician Occupancy Specialist of a critical lab result(s), bb potassium of 2.8 Isidro Alonso NP notified. 21:16 Rory Cheek MD is Hospitalizing Provider. pm1 08 01:56 No provider procedures requiring assistance completed. Patient admitted, IV remains in em place. 08:26 Primary Nurse role handed off by Cristino Florez RN bd 13:44 Maile Vieira RN is Primary Nurse. ld1 Administered Medications: 09/14 18:50 Drug: Lasix (furosemide) 20 mg Route: IVP; Site: right forearm; bp 21:30 Follow up: Response: No adverse reaction; Marked relief of symptoms em 20:16 Drug: Potassium Effervescent Tablet 50 mEq Route: PO; em 21:30 Follow up: Response: No adverse reaction em 09/15 05:41 Drug: Albuterol 1.25 mg Route: Inhalation; em 05:41 Drug: AtroVENT (ipratropium) Aerosol 0.5 mg Route: Inhalation; em Outcome: 09/14 21:17 Decision to Hospitalize by Provider. pm1 09/15 01:56 Admitted to ER Hold. Please see [facility] for further documentation. em Condition: stable Instructed on the need for admit, Demonstrated understanding of instructions. 14:29 Patient left the ED. ld1 Signatures: Dispatcher [employer] EDDneise Garcia Mary mr Dg, Franki, RN RN Sara Malik, RN RN bb Shruthi Sage, Isidro Cooper RN, TELEPHONE COIN BOX COLLECTOR TELEPHONE COIN BOX COLLECTOR pm1 Cristino Florez RN RN bp Dibbern, Lauren, RN RN ld1
--- NOTE | 2020-09-14 21:18 | EDPHYS ---
Physician Documentation [facility] Name: Eva Haskins Age: 80 yrs Sex: Female : 1940 Arrival Date: 09/14/2020 Time: 13:32 Bed 17 Private MD: [place] Tripp ED Physician Umesh Miller HPI: 09/14 15:50 This 80 yrs old Female presents to ER via Unassigned with complaints of cp Shortness of Breath. 15:50 The patient has shortness of breath at rest. Onset: The symptoms/episode began/occurred cp 3 day(s) ago. Duration: The symptoms are continuous, and are steadily getting worse. The patient's shortness of breath is aggravated by light activity. Associated signs and symptoms: Pertinent positives: non-productive cough, Pertinent negatives: chest pain, fever. Historical: - Allergies: 15:58 Iodine; iw 15:58 Levofloxacin; iw ROS: 15:55 Constitutional: Negative for body aches, chills, fever, poor PO intake. cp 15:55 Eyes: Negative for injury, pain, redness, and discharge. cp 15:55 ENT: Negative for ear pain, sore throat, difficulty swallowing, difficulty handling secretions. 15:55 Cardiovascular: Negative for chest pain, edema, palpitations. 15:55 Respiratory: Positive for cough, with no reported sputum, shortness of breath, on exertion. 15:55 Abdomen/GI: Negative for abdominal pain, nausea, vomiting, and diarrhea. 15:55 Neuro: Negative for altered mental status, dizziness, headache, syncope, weakness. 15:55 All other systems are negative. Exam: 15:58 Constitutional: The patient appears in no acute distress, alert, awake, cp non-diaphoretic, non-toxic, well developed, well nourished. 15:58 Head/Face: Normocephalic, atraumatic. cp 15:58 Eyes: Periorbital structures: appear normal, Conjunctiva: normal, no exudate, no injection, Sclera: no appreciated abnormality, Lids and lashes: appear normal, bilaterally. 15:58 ENT: External ear(s): are unremarkable, Nose: is normal, Mouth: Lips: moist, Oral mucosa: moist, Posterior pharynx: Airway: no evidence of obstruction, patent. 15:58 Neck: ROM/movement: is normal, is supple, no meningismus, no nuchal rigidity. 15:58 Chest/axilla: Inspection: normal, Palpation: is normal, no crepitus, no tenderness. 15:58 Cardiovascular: Rate: normal, Rhythm: regular, Edema: is not appreciated, JVD: is not appreciated. 15:58 Respiratory: the patient does not display signs of respiratory distress, Respirations: normal, no use of accessory muscles, no retractions, labored breathing, is not present, Breath sounds: bronchial sounds, that are mild, are heard diffusely, decreased breath sounds, are not appreciated, stridor, is not appreciated, wheezing: is not appreciated. 15:58 Abdomen/GI: Inspection: abdomen appears normal, Palpation: abdomen is soft and non-tender, in all quadrants. 15:58 Neuro: Orientation: to person, place \T\ time. Mentation: is normal, Motor: moves all fours, strength is normal, Gait: is steady. Vital Signs: 15:57 BP 199 / 107; Pulse 98; Resp 20; Temp 98.4; Pulse Ox 96% on R/A; iw 18:57 BP 177 / 94; Pulse 101; Resp 17; Pulse Ox 94% ; bp MDM: 17:39 Patient medically screened. pm1 20:03 Counseling: I had a detailed discussion with the patient and/or guardian regarding: the pm1 historical points, exam findings, and any diagnostic results supporting the discharge/admit diagnosis, lab results, radiology results, the need for further work-up and treatment in the hospital. 21:06 Data reviewed: vital signs. Data interpreted: Pulse oximetry: on room air is 96 %. pm1 Interpretation: normal. 21:18 Physician consultation: Sukumar Courtney MD regarding consult, patient's condition, pm1 Informed him that the patient does not want to stay in the hospital but I would like to secure a treatment plan for the event that the patient leaves against medical advice. He would like to get a repeat potassium if the patient will allow it. If patient decides to stay in the hospital, does not require transfer to [facility] where he has privileges. Patient can be admitted her to hospitalist. 09/14 17:47 Order name: Basic Metabolic Panel; Complete Time: 19:34 pm1 09/14 17:47 Order name: CBC with Diff; Complete Time: 19:18 pm1 09/14 17:47 Order name: LFT's; Complete Time: 19:34 pm1 09/14 17:47 Order name: Magnesium; Complete Time: 19:34 pm1 09/14 17:47 Order name: NT PRO-BNP; Complete Time: 19:34 pm1 09/14 17:47 Order name: PT-INR; Complete Time: 19:18 pm1 09/14 17:47 Order name: Troponin (emerg Dept Use Only); Complete Time: 19:34 pm1 09/14 21:17 Order name: Potassium; Complete Time: 22:28 pm1 09/14 22:35 Order name: SARS-COV-2 RT PCR; Complete Time: 23:30 EDMS 09/15 05:22 Order name: CBC with Automated Diff; Complete Time: 14:05 EDMS 09/15 05:48 Order name: Comprehensive Metabolic Panel; Complete Time: 14:05 EDMS 09/15 05:48 Order name: Lipid Profile; Complete Time: 14:05 EDMS 09/15 05:48 Order name: T4 Free; Complete Time: 14:05 EDMS 09/14 15:55 Order name: XRAY Chest Pa And Lat (2 Views); Complete Time: 17:39 cp 09/14 17:47 Order name: EKG; Complete Time: 17:48 pm1 09/14 17:47 Order name: Cardiac monitoring; Complete Time: 18:54 pm1 09/14 17:47 Order name: EKG - Nurse/Tech; Complete Time: 20:16 pm1 09/14 17:47 Order name: IV Saline Lock; Complete Time: 18:55 pm1 09/15 05:48 Order name: Magnesium; Complete Time: 14:05 EDMS 09/15 05:48 Order name: Thyroid Stimulating Hormone; Complete Time: 14:05 EDMS 09/15 07:13 Order name: Troponin I; Complete Time: 14:05 EDMS 09/15 09:20 Order name: Glucose, Ancillary Testing; Complete Time: 14:05 EDMS 09/15 13:01 Order name: Urine Dipstick-Ancillary; Complete Time: 14:05 EDMS 09/15 13:03 Order name: Glucose, Ancillary Testing; Complete Time: 14:05 EDMS 09/15 13:35 Order name: Troponin I; Complete Time: 14:05 EDMS 09/14 17:47 Order name: Labs collected and sent; Complete Time: 18:55 pm1 09/14 17:47 Order name: O2 Per Protocol; Complete Time: 18:54 pm1 09/14 17:47 Order name: O2 Sat Monitoring; Complete Time: 18:54 pm1 Administered Medications: 18:50 Drug: Lasix (furosemide) 20 mg Route: IVP; Site: right forearm; bp 21:30 Follow up: Response: No adverse reaction; Marked relief of symptoms em 20:16 Drug: Potassium Effervescent Tablet 50 mEq Route: PO; em 21:30 Follow up: Response: No adverse reaction em 08 05:41 Drug: Albuterol 1.25 mg Route: Inhalation; em 05:41 Drug: AtroVENT (ipratropium) Aerosol 0.5 mg Route: Inhalation; em Disposition: 09/16 07:12 Co-signature as Attending Physician, Umesh Miller MD I agree with the assessment and kdr plan of care. Disposition Summary: 09/14/20 21:17 Hospitalization Ordered Hospitalization Status: Observation pm1 Provider: Rory Cheek pm1 Condition: Stable pm1 Problem: new pm1 Symptoms: have improved pm1 Bed/Room Type: Standard pm1 Location: Telemetry/MedSurg (observation)(09/15/20 13:17) Room Assignment: 229(09/15/20 13:17) dw Diagnosis - Hypokalemia pm1 - Congesive heart failrue - New onset pm1 Forms: - Medication Reconciliation Form pm1 - SBAR form pm1 Signatures: Dispatcher [employer] [facility] Doretha Payne RN RN mw Woody, Diana, RN RN dw Rittger, Kevin, MD MD kdr Munoz, Edgar, RN RN em Williams, Irene RN Leonides Hays PA PA cp Marinas, Patrick, ALIS NETWORK SYSTEMS ANALYST pm1 rCistino Florez RN RN bp Corrections: (The following items were deleted from the chart) 09/14 21:37 21:17 Telemetry/MedSurg (observation) pm1 21:37 21:17 pm1 21:43 21:32 CORONAVIRUS+MR.LAB.BRZ ordered. [facility] 09/15 13:09/14 21:37 [facility] ER HOLD mw dw 09/15 12:09/14 21:37 ERHOLD- mw dw
--- NOTE | 2020-09-14 22:15 | P.HP ---
Certification for Inpatient Patient admitted to: Observation With expected LOS: <2 Midnights Patient will require the following post-hospital care: None Practitioner: I am a practitioner with admitting privileges, knowledge of patient current condition, hospital course, and medical plan of care. Services: Services provided to patient in accordance with Admission requirements found in Title 42 Section 412.3 of the Code of Federal Regulations Patient History Date of Service: 09/14/20 Primary Care Provider: Dr. Tripp Reason for admission: New onset CHF History of Present Illness: 80-year-old female with history of diabetes mellitus type 2, hypertension, CAD status post CABG, hyperlipidemia presents emergency department for shortness of breath. Patient reports increasing shortness of breath over the course of the last 3 to 4 days, patient without history of CHF. Patient evaluated in the emergency department, labs were significant for potassium 2.8 GFR 83 glucose 148 BNP 4823 with blood work on 11.1 chest x-ray demonstrates mild to moderate CHF. ED progress is to admit under observation for new onset CHF Allergies levofloxacin [From Levaquin] Allergy (Verified 10/27/14 15:08) Nausea/Vomiting IODINE; IODINE CONTAINING Allergy (Uncoded 05/15/14 22:46) Unknown Home Medications: Atorvastatin Calcium [Lipitor*] 20 mg PO DAILY 07/03/18 Benzonatate [Tessalon Perle*] 100 mg PO BIDP PRN 07/03/18 Brimonidine [Alphagan P 0.15%*] 1 drop EACH EYE BID 07/03/18 Cetirizine HCl 10 mg PO DAILY 07/03/18 Citalopram [Celexa*] 10 mg PO DAILY 07/03/18 Ketoconazole 1 chris TOP PRN 07/03/18 Latanoprost/Pf [Latanoprost 0.005% Eye Drop] 1 drop EACH EYE BEDTIME 07/03/18 Losartan/Hydrochlorothiazide [Hyzaar 100-25 Tablet] 1 tab PO DAILY 07/03/18 Metoprolol Tartrate [Lopressor*] 50 mg PO BID 07/03/18 Timolol 0.5% Opth [Timoptic 0.5% Opth*] 1 drop EACH EYE BID 07/03/18 glipiZIDE [Glucotrol*] 5 mg PO BIDWM 07/03/18 Ciprofloxacin HCl [Cipro 500 MG Tablet] 500 mg PO DAILY #14 tab 07/04/18 metroNIDAZOLE [Flagyl] 500 mg PO Q6H #56 tablet 07/04/18 - Past Medical/Surgical History Diabetic: Yes -: Diabetes - NIDDM -: Hyperlipidemia -: Hypertension -: CAD S/P CABG -: TIA -: asthma -: bronchitis -: Glaucoma -: PVD -: Triple Bypass -: Heart stents -: Leg Stents Psychosocial/ Personal History: Patient is retired, lives with family - Family History Mother -: Heart disease Father -: Liver disease Brother -: Diabetes, Liver disease - Social History Alcohol use: No CD- Drugs: No Caffeine use: Yes Place of Residence: Home Review of Systems 10-point ROS is otherwise unremarkable Respiratory: Cough, Shortness of Breath, SOB with Excertion Physical Examination - Physical Exam General: Alert, In no apparent distress, Oriented x3 HEENT: Atraumatic, PERRLA, Mucous membr. moist/pink, EOMI, Sclerae nonicteric Neck: Supple, 2+ carotid pulse no bruit, No LAD, Without JVD or thyroid abnormality Respiratory: Normal air movement, Crackles/rales Cardiovascular: No edema, Regular rate/rhythm, Normal S1 S2 Gastrointestinal: Normal bowel sounds, No tenderness Musculoskeletal: No tenderness Integumentary: No rashes Neurological: Normal gait, Normal speech, Normal strength at 5/5 x4 extr, Normal tone, Normal affect Lymphatics: No axilla or inguinal lymphadenopathy - Studies Laboratory Data (last 24 hrs) 09/14/20 21:40: Potassium 3.8 09/14/20 18:50: PT 13.8 H, INR 1.20 09/14/20 18:50: WBC 11.10 H, Hgb 11.6 L, Hct 35.5 L, Plt Count 226 09/14/20 18:50: Sodium 142, Potassium 2.8 L*, BUN 16, Creatinine 0.68, Glucose 148 H, Magnesium 1.8, Total Bilirubin 0.8, AST 18, ALT 25, Alkaline Phosphatase 100 Assessment and Plan - Plan Assessment: Dyspnea secondary to new onset CHFunknown EF CAD status post CABG/stents Diabetes mellitus type 2 Hypertension Hyperlipidemia Plan: Dyspnea secondary to new onset CHFunknown EF: Cardiology consulted continue with Lasix 20 mg IV twice daily, echocardiogram ordered, 1500 cc/day restriction, daily weights. Appreciate further input from cardiology have initiated therapy with lisinopril, metoprolol. CAD status post CABG/stents: Obtain and continue medications, patient chest pain-free at this time. Diabetes mellitus type 2: AC at bedtime Accu-Chek, sliding scale insulin therapy. Hypertension: Continue medications adjust as necessary Hyperlipidemia: Continue home meds. DVT PPX: Lovenox Code status: Full Discharge Plan: Home Plan to discharge in: 24 Hours - Advance Directives Does patient have a Living Will: No Does patient have a Durable POA for Healthcare: No - Code Status/Comfort Care Code Status Assessed: Yes (Full code) Critical Care: No Time Spent Managing Pts Care (In Minutes): 55
[2020-09-15] MEDS ORDERED: ACETAMINOPHEN 500 MG TAB PO PRN (00:44)
[2020-09-15] MEDS ORDERED: ONDANSETRON 4 MG/2 ML VIAL IV PRN (00:44)
[2020-09-15 01:58] VITALS: BMI 30.2
[2020-09-15 05:21] LABS: Absolute Lymphocytes (CBC) 3.3 K/uL (0.7-4.9); Hematocrit 34.9 % (36.0-45.0); Lymphocytes % 31.5 % (15.3-44.8); MPV 8.6 fL (7.6-11.3); RBC Red Blood Cell Count 4.32 M/uL (3.86-4.86)
[2020-09-15] MEDS ORDERED: BENZONATATE 100 MG CAP PO PRN (05:24)
[2020-09-15] MEDS ORDERED: KETOCONAZOLE CREAM 15 GM TUBE TOP SCH (05:30)
[2020-09-15 05:47] LABS: Albumin 3.5 g/dL (3.4-5.0); Bilirubin Total 0.8 mg/dL (0.2-1.0); Magnesium 1.6 mg/dL (1.8-2.4); Protein, Total 8.3 g/dL (6.4-8.2); Thyroid Stimulating Hormone 3.21 uIU/mL (0.360-3.740)
[2020-09-15 05:48] LABS: Potassium 2.9 mmol/L (3.5-5.1)
[2020-09-15] MEDS ORDERED: METOPROLOL TAR 25 MG TAB PO SCH (06:00)
[2020-09-15] MEDS ORDERED: ALBUTEROL 2.5 MG/3 ML NEB SOL ONE (06:00)
[2020-09-15] MEDS ORDERED: IPRATROPIUM BROM 0.5MG/2.5ML ONE (06:00)
[2020-09-15] MEDS: OPTH OPTH SCH ×2 (09:00→21:00)
[2020-09-15] MEDS: TIMOLOL 0.5% SCH ×2 (09:00→21:00)
[2020-09-15] MEDS ORDERED: lisinopriL 5 MG TAB PO SCH (09:00)
[2020-09-15] MEDS: INSULIN -REGULAR HUMAN 50 UNIT/0.5 ML ML SQ SCH ×4 (09:10→20:56)
[2020-09-15] MEDS ORDERED: MAGNESIUM SULFATE 1 gm IVPB 1 GM/100 ML BAG IV ONE ×2 (09:21→10:18)
[2020-09-15] MEDS: ATORVASTATIN 20 MG TAB PO SCH (10:00)
[2020-09-15] MEDS: hydroCHLOROthiazide 25 MG TAB PO SCH (10:00)
[2020-09-15] MEDS: ENOXAPARIN 40 MG/0.4 ML SQ SCH (10:00)
[2020-09-15] MEDS: LOSARTAN POTASSIUM 50 MG TABLET PO SCH (10:00)
[2020-09-15] MEDS: KCL 20 MEQ/100 mL IVPB 20 MEQ/100 ML BAG IV SCH ×2 (10:00→16:20)
[2020-09-15] MEDS: CITALOPRAM 10 MG TABLET PO SCH (10:00)
[2020-09-15] MEDS: FUROSEMIDE 20 MG/ 2ML VIAL IV SCH ×2 (10:00→17:35)
[2020-09-15] MEDS: METOPROLOL TAR 50 MG TAB PO SCH ×2 (10:00→21:33)
[2020-09-15] MEDS: glipiZIDE 5 MG TAB PO SCH ×2 (10:00→17:36)
[2020-09-15] MEDS ORDERED: hydroCHLOROthiazide 25 MG TAB ONE (10:17)
[2020-09-15] MEDS ORDERED: FUROSEMIDE 20 MG TABLET ONE (10:18)
[2020-09-15] MEDS ORDERED: ATORVASTATIN 20 MG TAB ONE (10:18)
[2020-09-15] MEDS ORDERED: METOPROLOL TAR 50 MG TAB ONE (10:18)
[2020-09-15] MEDS ORDERED: KCL 20 MEQ/100 mL IVPB 40 MEQ/200 ML BAG IV ONE (10:19)
[2020-09-15] MEDS ORDERED: ENOXAPARIN 60 MG/0.6 ML SQ ONE (10:19)
--- NOTE | 2020-09-15 11:19 | EKG ---
Test Date: 2020-09-14 Test Time: 20:11:14 Interlocking Machine Operator: PAMELA MEASUREMENT RESULTS: Intervals: Rate: 110 LA: 116 QRSD: 90 QT: 338 QTc: 457 [place]: P: 69 LA: 116 QRS: -44 T: 159 INTERPRETIVE STATEMENTS: Sinus tachycardia Left axis deviation Left ventricular hypertrophy with repolarization abnormality Abnormal ECG Compared to ECG 03/16/2020 16:49:07 Left-axis deviation now present Left ventricular hypertrophy now present Early repolarization now present Sinus rhythm no longer present Myocardial infarct finding no longer present ST (T wave) deviation no longer present Possible ischemia no longer present Electronically Signed On 09-15-20 11:16:28 CDT by Mert Eason
[2020-09-15] MEDS ORDERED: NA CHLORIDE 0.9% 1,000 ML ONE (12:42)
[2020-09-15 13:01] LABS: Urine Blood Trace-intact (Negative); Urine Glucose Negative (Negative); Urine Protein 1+ (Negative); Urine Specific Gravity 1.015 (1.005-1.030); Urine pH 7.5 (5.0-7.0)
--- NOTE | 2020-09-15 16:39 | P.PN ---
Subjective Date of Service: 09/15/20 Primary Care Provider: Dr. Tripp Chief Complaint: New onset CHF Subjective: Improving (slight improvement overnight, swelling improved, breathing more comfortably. without chest pain this morning) Review of Systems 10-point ROS is otherwise unremarkable Physical Examination - Vital Signs Temperature: 97.7 F Blood Pressure: 150/73 Pulse: 67 Respirations: 17 Pulse Ox (%): 95 - Studies Laboratory Data (last 24 hrs) 09/15/20 05:05: Troponin I 0.73 H* 09/15/20 05:05: Sodium 143, Potassium 2.9 L*, BUN 15, Creatinine 0.70, Glucose 107 H, Magnesium 1.6 L, Total Bilirubin 0.8, AST 23, ALT 23, Alkaline Phosphatase 89, Triglycerides 103, Cholesterol 138, HDL Cholesterol 47, Cholesterol/HDL Ratio 2.94 09/15/20 05:05: WBC 10.40, Hgb 11.6 L, Hct 34.9 L, Plt Count 238 09/14/20 21:40: Potassium 3.8 09/14/20 18:50: PT 13.8 H, INR 1.20 09/14/20 18:50: WBC 11.10 H, Hgb 11.6 L, Hct 35.5 L, Plt Count 226 09/14/20 18:50: Sodium 142, Potassium 2.8 L*, BUN 16, Creatinine 0.68, Glucose 148 H, Magnesium 1.8, Total Bilirubin 0.8, AST 18, ALT 25, Alkaline Phosphatase 100 Assessment & Plan Physician Review Additional Text: Physical Exam General: AAOx3, NAD HEENT: normal conjunctiva, sclera anicteric Pulm: nonlabored respirations, slight tachypnea/shallow respirations on RA CV: regular rate/rhythm, no edema Abd: soft, nontender, nondistended MSK: no joint tenderness Skin: no rashes Assessment and Plan acute dyspnea secondary to new onset CHFunknown EF NSTEMI CAD s/p CABG/stents Diabetes mellitus type 2, non-insulin dependent Hypertension Hyperlipidemia lasix iv 20mg BID echo ordered troponin elevated this morning, possible demand ischemia vs ACS cardiology consulted continue metoprolol, ACEI h/o CAD, but denies chest pain at this time continue home medications as appropriate VTE: lovenox Code: full Dispo: anticipate dc home tomorrow, pending echo, further improvement, trend troponin Time Spent Managing Pts Care (In Minutes): 35
[2020-09-15 18:33] LABS: BUN Blood Urea Nitrogen 14 mg/dL (7-18); Bicarbonate 33 mmol/L (21-32); Glucose Level 68 mg/dL (74-106); Potassium 3.5 mmol/L (3.5-5.1); Sodium Level 142 mmol/L (136-145)
[2020-09-15] MEDS ORDERED: POTASSIUM CL SA 10 MEQ TAB PO ONE (23:05)
[2020-09-16 00:36] VITALS: O2SAT 91
[2020-09-16 05:48] LABS: Absolute Lymphocytes (CBC) 2.1 K/uL (0.7-4.9); Basophils % 0.4 % (0-1.3); Hematocrit 35.1 % (36.0-45.0); Lymphocytes % 26.4 % (15.3-44.8); MPV 8.7 fL (7.6-11.3); RBC Red Blood Cell Count 4.31 M/uL (3.86-4.86)
[2020-09-16 05:58] LABS: Albumin 3.2 g/dL (3.4-5.0); Bilirubin Total 0.5 mg/dL (0.2-1.0); Magnesium 2.1 mg/dL (1.8-2.4); Potassium 3.5 mmol/L (3.5-5.1); Protein, Total 7.3 g/dL (6.4-8.2)
[2020-09-16] MEDS: INSULIN -REGULAR HUMAN 50 UNIT/0.5 ML ML SQ SCH ×2 (07:30→11:30)
--- NOTE | 2020-09-16 08:37 | ECHO ---
HEIGHT: 5 ft 0 in WEIGHT: 138 lb 12.8 oz DATE OF STUDY: 09/15/[address]: Michele Godoy NP 2-DIMENSIONAL: YES M.MODE: YES DOPPLER: YES COLOR FLOW: YES TDS: PORTABLE: DEFINITY: BUBBLE STUDY: DIAGNOSIS: NEW ONSET CONGESTIVE HEART FAILURE CARDIAC HISTORY: CATHERIZATION: YES SURGERY: YES PROSTHETIC VALVE: NO PACEMAKER: NO MEASUREMENTS (cm) DIASTOLIC (NORMALS) SYSTOLIC (NORMALS) IVSd 1.1 (0.6-1.2) LA Diam 3.3 (1.9-4.0) LVEF 42% LVIDd 4.6 (3.5-5.7) LVIDs 3.7 (2.0-3.5) %FS 20% LVPWd 1.2 (0.6-1.2) Ao Diam 2.2 (2.0-3.7) 2 DIMENSIONAL ASSESSMENT: RIGHT ATRIUM: NORMAL LEFT ATRIUM: NORMAL RIGHT VENTRICLE: NORMAL LEFT VENTRICLE: NORMAL SIZE TRICUSPID VALVE: NORMAL MITRAL VALVE: MITRAL ANNULAR CALCIFICATION PULMONIC VALVE: NORMAL AORTIC VALVE: STENOTIC PERICARDIAL EFFUSION: NONE AORTIC ROOT: NORMAL LEFT VENTRICULAR WALL MOTION: EJECTON FRACTION 42%. MILD GLOBAL HYPOKINESIS. DOPPLER/COLOR FLOW: MODERATE AOTIC STENOSIS, 1.3 CENTIMETERS SQUARED COMMENTS: MODERATE AORTIC STENOSIS, 1.3 CENTIMETERS SQUARED. MILD GLOBAL HYPOKINESIS. EJECTION FRACTION 42%. TECHNOLOGIST: HUMPHREY LITTLEJOHN
[2020-09-16] MEDS: OPTH OPTH SCH (09:00)
[2020-09-16] MEDS ORDERED: POTASSIUM CL SA 10 MEQ TAB PO ONE (09:00)
[2020-09-16] MEDS: TIMOLOL 0.5% SCH (09:00)
[2020-09-16] MEDS: glipiZIDE 5 MG TAB PO SCH (11:21)
[2020-09-16] MEDS: hydroCHLOROthiazide 25 MG TAB PO SCH (11:22)
[2020-09-16] MEDS: LOSARTAN POTASSIUM 50 MG TABLET PO SCH (11:22)
[2020-09-16] MEDS: FUROSEMIDE 20 MG/ 2ML VIAL IV SCH (11:22)
[2020-09-16] MEDS: CITALOPRAM 10 MG TABLET PO SCH (11:22)
[2020-09-16] MEDS: ATORVASTATIN 20 MG TAB PO SCH (11:22)
[2020-09-16] MEDS: METOPROLOL TAR 50 MG TAB PO SCH (11:23)
[2020-09-16] MEDS: ENOXAPARIN 40 MG/0.4 ML SQ SCH (11:23)
--- NOTE | 2020-09-16 11:26 | P.DS ---
Admission Date: 09/15/20 Discharge Date: 09/16/20 Primary Care Provider: Dr. Tripp Disposition: ROUTINE DISCHARGE Discharge Condition: GOOD Reason for Admission: New onset CHF Consultations: Cardiology - Dr. Eason Procedures: CXR (09/14): Mild to moderate pulmonary edema is seen. The heart is moderately enlarged in size. No displaced fractures. Sternotomy wires present. IMPRESSION: Mild to moderate CHF Echo (09/15): Moderate aortic stenosis, 1.3 cm. Mild global hypokinesis. EF: 42%. Problem List acute dyspnea secondary to new onset/diagnosis of systolic CHF NSTEMI secondary to demand ischemia Moderate aortic stenosis CAD s/p CABG/stents Diabetes mellitus type 2, non-insulin dependent Hypertension Hyperlipidemia mild hypokalemia Brief History of Present Illness: 80yo F, PMH: DM2, HTN, CAD s/p CABG, HLD, presented with 3-4 days of shortness of breath. She was found to be in acute CHF exacerbation and admitted for further management / evaluation. Hospital Course: Treated with IV lasix 20mg BID. Echo obtained showing EF: ~40%, and moderate aortic stenosis. Cardiology recommended lasix on discharge, f/u as outpatient for further monitoring and titration of lasix. She was noted to have mild troponin elevated, and this was felt to be due to demand ischemia in setting of acute CHF exacerbation. She was discharged home to f/u with her salvager next week - as scheduled. Discharged with lasix 20mg daily f/u with PCP in 3-5 days Vital Signs/Physical Exam: Physical Exam General: AAOx3, NAD HEENT: normal conjunctiva, sclera anicteric Pulm: nonlabored respirations on room air CV: regular rate/rhythm, no edema Abd: soft, nontender, nondistended MSK: no joint tenderness Skin: no rashes Temp Pulse Resp BP Pulse Ox 97.0 F 69 17 122/52 L 98 09/16/20 08:00 09/16/20 08:00 09/16/20 08:00 09/16/20 08:00 09/16/20 08:00 Laboratory Data at Discharge: WBC 8.00 K/uL (4.3-10.9) D 09/16/20 05:12 Hgb 11.5 g/dL (12.0-15.0) L 09/16/20 05:12 Hct 35.1 % (36.0-45.0) L 09/16/20 05:12 Plt Count 209 K/uL (152-406) 09/16/20 05:12 PT 13.8 SECONDS (9.5-12.5) H 09/14/20 18:50 INR 1.20 09/14/20 18:50 Sodium 142 mmol/L (136-145) 09/16/20 05:12 Potassium 3.5 mmol/L (3.5-5.1) 09/16/20 05:12 BUN 18 mg/dL (7-18) 09/16/20 05:12 Creatinine 0.67 mg/dL (0.55-1.3) 09/16/20 05:12 Glucose 82 mg/dL (74-106) 09/16/20 05:12 Magnesium 2.1 mg/dL (1.8-2.4) D 09/16/20 05:12 Total Bilirubin 0.5 mg/dL (0.2-1.0) 09/16/20 05:12 AST 16 U/L (15-37) 09/16/20 05:12 ALT 18 U/L (12-78) 09/16/20 05:12 Alkaline Phosphatase 82 U/L (45-117) 09/16/20 05:12 Troponin I 0.57 ng/mL (0.0-0.045) H* 09/15/20 13:05 Triglycerides 103 mg/dL (<150) 09/15/20 05:05 Cholesterol 138 mg/dL (<200) 09/15/20 05:05 HDL Cholesterol 47 mg/dL (40-60) 09/15/20 05:05 Cholesterol/HDL Ratio 2.94 09/15/20 05:05 Home Medications: Atorvastatin Calcium [Lipitor*] 20 mg PO DAILY 07/03/18 Benzonatate [Tessalon Perle*] 100 mg PO BIDP PRN 07/03/18 Brimonidine [Alphagan P 0.15%*] 1 drop EACH EYE BID 07/03/18 Cetirizine HCl 10 mg PO DAILY 07/03/18 Citalopram [Celexa*] 10 mg PO DAILY 07/03/18 Ketoconazole 1 chris TOP PRN 07/03/18 Latanoprost/Pf [Latanoprost 0.005% Eye Drop] 1 drop EACH EYE BEDTIME 07/03/18 Losartan/Hydrochlorothiazide [Hyzaar 100-25 Tablet] 1 tab PO DAILY 07/03/18 Metoprolol Tartrate [Lopressor*] 50 mg PO BID 07/03/18 Timolol 0.5% Opth [Timoptic 0.5% Opth*] 1 drop EACH EYE BID 07/03/18 glipiZIDE [Glucotrol*] 5 mg PO BIDWM 07/03/18 Furosemide [Lasix] 20 mg PO DAILY 30 Days #30 tablet 09/16/20 New Medications: Furosemide [Lasix] 20 mg PO DAILY 30 Days #30 tablet Physician Discharge Instructions: PROBLEM: Congestive Heart Failure GOAL: Clear understanding of disease process E-script sent to [facility] in [place]. INSTRUCTIONS: You were found to have acute congestive heart failure - with some fluid around your lungs. This was causing your symptoms of feeling short of breath. You were found to have a slightly elevated troponin (heart enzyme) which was likely due to your congestive heart failure. Cardiology was consulted. An echocardiogram was performed and showed some mild-moderate aortic stenosis. Please follow up with your [facility] as scheduled next week. Your symptoms improved with lasix, and you are discharged with lasix - 20mg daily. Weigh yourself daily and keep a record of it. If you gain 3 or more pounds in 1 week, notify your primary care provider. Diet: 1800 calorie diabetic diet; 1500mL fluid restriction Activity: As tolerated IMMUNIZATION Influenza Vaccine Indicated: Influenza Vaccine Given: Date Given: Pneumonia Vaccine Indicated: No Pneumonia Vaccine Given: Date Given: Diet: ADA Activity: Ad jadon Followup: [place] Tripp DO [Primary Care Provider] - 1 Week (Follow up in office in 1 week. Call to schedule an appointment.) Time spent managing pt's care (in minutes): 40
[2020-09-16 12:24] VITALS: BP 119/55; TEMP 98.1
--- NOTE | 2020-09-19 12:02 | CON ---
Date of Consultation: 09/15/2020 Reason For Consultation: Congestive heart failure. History Of Present Illness: Ms. Haskins is an 80-year-old woman who was admitted with congest josy heart failure, hypertensive crisis of blood pressure 199/107, O2 saturation was 96% on room air. Denied chest pain, nausea, vomiting, diaphoresis, PND, orthopnea. She had pedal edema and shortness of breath. Denied any fever or chills or cough. Allergies: TO IODINE AND LEVAQUIN. Medications: At home included Lipitor, Celexa, Lasix, losartan with hydrochlorothiazide, metoprolol, and glipizide. Past Medical History: Includes chronic diastolic congestive heart failure, diabetes, hypertension, d epression, dyslipidemia. Review of Systems: Negative. Social History: Negative. Family History: Noncontributory. Physical Examination: Vital Signs: Initially, when she came in, pressure was 199/100. By the time I saw the patient, it wa s 150/73. HEENT: Negative. Neck: Supple with no bruit. Chest: Clear on the right. She has some crackles on the left side. Cardiac: Revealed a regular rhythm and rate with S4 gallops. No murmurs or rubs. Abdomen: Benign. Extremities: Revealed no clubbing, cyanosis, or edema. Diagnostic Data: Creatinine was normal. Her white count was normal. Potassium was 2.8, supplemente d to 3.5. Her glucose was 164. Troponin was 0.73 and 0.57. Her TSH was 3.2. Echocardiogram that w as done showed moderate aortic stenosis of 1.3 cm2 with an ejection fraction of 42%. Impression And Plan: 1.Moderate aortic stenosis. 2.Acute on chronic systolic and diastolic congestive heart failure with an ejection fraction of 42%. 3.Hypertension, poorly controlled that needs to be addressed. 4.Hypokalemia that was corrected. 5.Diabetes. 6.Dyslipidemia. 7.Depression. 8. , improved very well on IV Lasix. She needs to continue on beta-bipin. She is to con tinue her GARY inhibitor. Her aortic valve needs to be followed up very closely. She may have to hav e a TAVR if her symptoms persist or recur. She will probably need a heart catheterization done as we ll. I will see her in the office in the very near future. She can go home today, otherwise. KATHI Voice ID: [id number] Report ID: [id number]
== END 2020-09-16 13:25 | disposition home or self-care (01) | DRG 291 ==
LOC: ER 13:23 → ERHOLD 21:52 → OBSVTOIN 09-15 12:46 → 2ND 09-15 14:07
PROVIDERS: ADMIT Hospitalist; ATTEND Hospitalist
DX: I11.0 Hypertensive heart disease with heart failure (principal); I50.21 Acute systolic (congestive) heart failure; I24.8 Other forms of acute ischemic heart disease; I35.0 Nonrheumatic aortic (valve) stenosis; E11.9 Type 2 diabetes mellitus without complications; E78.5 Hyperlipidemia, unspecified; E87.6 Hypokalemia; I25.10 Atherosclerotic heart disease of native coronary artery without angina pectoris; Z95.1 Presence of aortocoronary bypass graft; Z95.5 Presence of coronary angioplasty implant and graft; Z20.822 Contact with and (suspected) exposure to COVID-19
CPT/HCPCS: 36415; 71046; 80048; 80053; 80061; 80076; 81003; 82947; 83735; 83880; 84132; 84439; 84443; 84484; 85025; 85610; 93005; 93306; 96374; 97116; 97161; 99285; G0378; J1650; J1940; J3475; J3480; J7030; U0003

== ENCOUNTER 2022-03-12 11:52 | Observation (INO) | payer OTHER ==
--- OUTSIDE RECORDS SUMMARY | 2022-03-12 12:05 | XMS REPORT | Continuity of Care Document ---
:1940 Author Organization [facility] t Address [address] [place] [address] Care Team Providers Name Role Phone Shante_[place] Tripp Primary Care Physician Unavailable [place] Tripp L Attending Clinician Unavailable Giuseppe Jose Attending Clinician Luis Burch Attending Clinician Luis Burch Admitting Clinician Payers Payer Name Policy Type Policy Number Effective Date Expiration Date Tarah sand[place] [address] [id number] 2021 Common [facility] 00:00:00 [facility] Problems Condition Condition Condition Status Onset Resolution [...] disease 00:00: Hospita involving involving 00 l [place] coronary coronary artery artery Essential Essential Disease Active Met hodi hypertensi hypertensi 2-16 st on on 00:00: Hospita 00 l UNK UNK Diagnosis Active 2016-06-20 Mem oria Active 06-06 21:57:00 l 06/06/2016 00:00: Mckinley cotton 00 [facility] 433.10/353 433.10/35 Diagnosis Active 2012-05-17 Memoria 01 301 Active 05-02 14:33:00 l 05/02/2012 00:00: Mckinley cotton 00 [facility] 433.10, 433.10, Diagnosis Active 2012-04-18 Memoria CAROTID CAROTID 04-18 16:00:00 l ARTERY ARTERY 00:00: [place] STENOSIS STENOSIS 00 Active 04/18/2012 [facility] CAROTID CAROTID Diagnosis Active 2012-05-10 Memoria STENOSIS STENOSIS 04-18 21:43:00 l Active 00:00: [place] 04/18/2012 00 [facility] OTHER OTHER Diagnosis Active 2012-04-19 Mem oria Active 04-18 00:54:00 l 04/18/2012 00:00: Mckinley cotton 00 [facility] [id number] Age-relate Problem Com mon d Spirit osteoporos - CHI is without [facility] pathologic Medica l al Center fracture Peripheral PAD Problem Commo n vascular (periphera Spir it disease l artery - CHI disease) [facility] Aortic Nonrheumat Problem Commo n valve ic aortic Spirit disorder (valve) - CHI stenosis [facility] Athlete's Athlete's Problem Com mon foot on foot on Spirit left left - CHI [facility] Acute on Acute on Problem Commo n chronic chronic Spirit combined combined - CHI systolic systolic St and and [facility] diastolic diastolic [facility] heart congestive Center failure heart failure [id number] Primary Problem Comm on osteoarthr Spirit itis of - CHI right hip [facility] [id number] Encounter Problem Com mon for Spirit suspected - CHI COVID-19 [facility] Mixed Depression Problem Commo n anxiety with Spirit and anxiety - CHI depressive [facility] Seasonal Allergic Problem Commo n allergic rhinitis, Spiri t rhinitis seasonal - CHI [facility] Pain Pain Problem Common Spirit - CHI [facility] Hammer toe Hammer toe Problem C ommon Spirit - CHI [facility] Mixed Hyperlipid Problem Commo n hyperlipid emia, Spirit emia mixed - CHI [facility] Anemia due Anemia, Problem Comm on to blood blood loss Spir it loss - CHI [facility] 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 - CH I [facility] Ulcer Ulcer Problem Common Spirit - CHI [facility] Cataract Cataract Problem Commo n Spirit - CHI [facility] Diabetes Diabetes Problem Commo n mellitus DMII Spirit without without - CHI complicati complicati [facility] on [facility] Glaucoma Glaucoma Problem Commo n Spirit CHI [facility] Hypertensi Hypertensi Problem C ommon on on Spirit - CHI [facility] Degenerati Degenerati Problem C ommon on of on of Spirit lumbosacra lumbosacra - CHI l l St interverte interverte Anuja kes bral disc bral disc [facility] Center 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) [facility] [id number] Controlled Problem Co mmon type 2 Spirit diabetes - CHI mellitus [facility] diabetic [facility] peripheral Center angiopathy without gangrene, without long-term current use of insulin 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 fracture, Medical unspecifie Center d osteoporos is type [id number] Stress and Problem Co mmon adjustment Spirit reaction - CHI [facility] [id number] Skin ulcer Problem Com mon of left Spirit foot, - CHI limited to [facility] skin Medical Center [id number] Atheroscle Problem Co mmon rosis of Spirit [place] - CHI artery of [facility] extremity Medical with Center intermitte nt claudicati on, unspecifie d laterality [id number] Aortic Problem Common valve Spirit stenosis, - CHI etiology [facility] cardiac [facility] valve Medical disease Center unspecifie d [id number] Hair loss Problem Com mon Spirit - CHI [facility] [id number] Calcaneal Problem Co mmon [id number] spur, left [facility] Pain in Pain of Problem Common limb left foot [facility] [id number] Acute Problem Common systolic Spirit congestive - CHI heart failure 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 Medical complicati Center on, without long-term current use of insulin Hypertensi Hypertensi Problem C ommon ve heart ve heart Spirit disease disease - CHI with with congestive congestive [facility] heart heart Medical failure failure Center [id number] Need for Problem Comm on assistance Spirit due to - CHI unsteady [facility] DM - DM - Problem Resolve 2012-04-28 Wilfrid mendy Diabetes Diabetes d 08:59:09 l mellitus mellitus Mckinley n Resolved Problem 04/28/2012 [facility] Hyperchole Hyperchol Problem Resolve 2012-04-28 Memoria sterolemia esterolemi d 08:59:09 l a Resolved Mckinley n Problem 04/28/2012 [facility] Hypertensi Hypertens Problem Resolve 2012-04-28 Memoria on ion d 08:59:09 l Resolved [place] Problem 04/28/2012 [place] Limping Problem Active 2021-04-29 Me duffy (finding) (finding) 21:54:55 l Active Christopher Problem 04/29/2021 [facility] Cough Cough Problem Active 2021-04-29 Caty teran (finding) (finding) 21:54:55 l Active Christopher Problem 04/29/2021 [facility] Diabetes Diabetes Problem Active 2021-04-29 Memoria mellitus mellitus 21:54:55 l (disorder) (disorder) He rmann Active Problem 04/29/2021 [facility] Difficulty Difficult Problem Active 2021-04-29 Memoria breathing y 21:54:55 l (finding) breathing Herm shannan (finding) Active Problem 04/29/2021 [facility] [place] Problem Active 2021-04-29 Memor ia (finding) (finding) 21:54:55 l Active [place] Problem 04/29/2021 [facility] Hyperlipid Hyperlipi Problem Active 2021-04-29 Memoria emia demia 21:54:55 l (disorder) (disorder) He rmann Active Problem 04/29/2021 [facility] Impaired Impaired Problem Active 2021-04-29 Memoria cognition cognition 21:54:55 l (finding) (finding) Herm shannan Active Problem 04/29/2021 [facility] CAROTID CAROTID Diagnosis Active 2012-05-10 Memoria SINUS SINUS 21:43:00 l SYNDROME SYNDROME Mckinley n Active [facility] EMBOLISM EMBOLISM Diagnosis Active 2016-06-20 Memoria AND AND 21:57:00 l THROMBOSIS THROMBOSIS He rmann OF OF ARTERIES ARTERIES OF T OF T Active [facility] ATHSCL ATHSCL Diagnosis Active 2016-06-20 M emoria TUOLUMNE TUOLUMNE 21:57:00 l ARTERIES ARTERIES Mckinley n OF EXTRM W OF EXTRM W INTRMT INTRMT Active [facility] Pure Pure Problem Resolve 2021-04-29 2021-04-29 Memoria hyperchole hyperchole d 03-04 21:54:55 21:54:55 l sterolemia sterolemia 00:00: Deven reyna (disorder) (disorder) 00 Resolved 03/04/2013 Problem 04/29/2021 [facility] Essential Essential Problem Resolve 2021-04-29 2021-04-29 Memoria hypertensi hypertensi d 05-21 21:54:55 21:54:55 l on on 00:00: Christopher (disorder) (disorder) 00 Resolved 05/21/2012 Problem 04/29/2021 [facility] Transient Problem Resolve 2021-04-29 2021-04-29 Memoria ischemic Transient d 02-13 21:54:55 21:54:55 l attack ischemic 00:00: Christopher (disorder) attack 00 (disorder) Resolved 02/13/2010 Problem 04/29/2021 Walter Arias Toni Allergies, Adverse Reactions, Alerts Allergy Allergy Status [...] Hospita reaction 00 l s to drug Bactrim Bactrim Active Memoria l [place] iodine iodine Active Memoria l [place] [id number] Drug Active Unknown Common allergy [facility] metformi metformi Active Unknown Commo n n n [facility] Social History Social Habit Start Date Stop Date Quantity Comments Source History of Tobacco Common [facility] - Use [facility] Tobacco use and 2017-04-04 2017-04-[address] [facility] exposure 00:00:00 00:00:00 Social History 2016-06-08 2016-06-08 [facility] agudeloshannan 12:53:59 12:53:59 Sex Assigned At [address] [facility] 00:00:00 00:00:00 Smoking Status Start Date Stop Date Source Never Smoker [facility] Medications Ordered Filled Start Stop Current Ordering Indication Dosage Frequency Signature Comments Components Source Medication Medication Date Date Medication? Clinician (SIG) Name Name Keflex 500 Keflex 500 2021-02- No 1{capsu QID Keflex 500 MG MG 02-13 le} MG 00:00: 00:00 00 :00 Ketoconazol Ketoconazol 2021-02- No 1{appli BID Ketoconazo e 2 % e 2 % 02-13 cation_ le 2 % 00:00: 00:00 to_affe 00 :00 cted_ar ea} Donepezil 2022-0 Yes 5 mg = 1 Wilfrid mendy hydrochlori 1-14 tab, PO, l de 5 MG 17:52: Bedtime, # Herm shannan Oral Tablet 00 30 tab, 4 [Aricept] Refill(s), Pharmacy: [facility], 147.32, cm, 02/26/21 11:29:00 [employer], Height, 64.545, kg, 02/26/21 11:29:00 [employer], Weight Lorazepam 2020-02 No See Memoria 0.5 MG Oral 2-22 Instructio l Tablet 00:11: ns, Take 1 Jackelyn nn [Ativan] 00 tab po 1 hour prior to MRI, may repeat q 30 min. if still anxious, # 5 tab, 0 Refill(s), Pharmacy: [facility], 149.86, cm, 01/22/21 11:15:00 [employer], Height, 64.091, kg, 01/22/21 11:15:00 [employer], Weight Furosemide 2020-02 Yes 20 mg = 1 Me moria 20 MG Oral 2-10 tab, PO, l Tablet 17:26: Daily, 0 Christopher 00 Refill(s) Tylenol 2020-02 Yes PO, 0 Memoria 2-10 Refill(s) l 17:26: Christopher 00 cetirizine 2020-02 Yes 10 mg = 1 Me moria 10 mg oral 2-10 cap, PO, l capsule 17:25: Daily, 0 Mckinley n 00 Refill(s) losartan 2020-02 Yes 100 mg = 1 Mem oria 100 mg oral 2-10 tab, PO, l tablet 17:23: Daily, 0 Christopher 00 Refill(s) Glipizide 5 2020-02 Yes 5 mg = 1 Me moria MG Oral 2-10 tab, PO, l Tablet 17:22: Daily, 0 Christopher 00 Refill(s) Neomycin-Po Neomycin-Po No 4{drops BID Neomycin-P lymyxin-HC lymyxin-HC 05-15 _into_a olymyxin-H 3.-1 3. 00:00: ffected C 00 _ear} 3.5- Neomycin-Po Neomycin-Po No 4{drops BID Neomycin-P lymyxin-HC lymyxin-HC 4-02 _into_a olymyxin-H 3.5-64024-4 3.5-45282-4 00:00: ffected C 00 _ear} 3.5-57634- 1 Neomycin-Po Neomycin-Po 2021-0 No 4{drops BID Neomycin-P lymyxin-HC lymyxin-HC 4-02 _into_a olymyxin-H 3.5-06127-8 3.5-40887-9 00:00: ffected C 00 _ear} 3.5-53675- 1 Neomycin-Po Neomycin-Po 2021-0 No 4{drops BID Neomycin-P lymyxin-HC lymyxin-HC 4-02 _into_a olymyxin-H 3.5-15799-7 3.5-72231-0 00:00: ffected C 00 _ear} 3.5-12513- 1 Neomycin-Po Neomycin-Po 2021-0 No 4{drops BID Neomycin-P lymyxin-HC lymyxin-HC 4-02 _into_a olymyxin-H 3.5-63660-7 3.5-60205-2 00:00: ffected C 00 _ear} 3.5-33346- 1 Neomycin-Po Neomycin-Po 2021-0 No 4{drops BID Neomycin-P lymyxin-HC lymyxin-HC 4-02 _into_a olymyxin-H 3.5-86155-4 3.5-15938-7 00:00: ffected C 00 _ear} 3.5-62866- 1 Neomycin-Po Neomycin-Po 2021-0 No 4{drops BID Neomycin-P lymyxin-HC lymyxin-HC 4-02 _into_a olymyxin-H 3.5-37987-0 3.5-48221-2 00:00: ffected C 00 _ear} 3.5-05047- 1 Neomycin-Po Neomycin-Po 2021-0 No 4{drops BID Neomycin-P lymyxin-HC lymyxin-HC 4-02 _into_a olymyxin-H 3.5-91071-8 3.5-59376-9 00:00: ffected C 00 _ear} 3.5-66667- 1 Neomycin-Po Neomycin-Po 2021-0 No 4{drops BID Neomycin-P lymyxin-HC lymyxin-HC 4-02 _into_a olymyxin-H 3.5-74982-9 3.5-83387-2 00:00: ffected C 00 _ear} 3.5-28408- 1 Neomycin-Po Neomycin-Po 2021-0 No 4{drops BID Neomycin-P lymyxin-HC lymyxin-HC 4-02 _into_a olymyxin-H 3.5-03171-6 3.5-71478-2 00:00: ffected C 00 _ear} 3.5-81775- 1 Neomycin-Po Neomycin-Po 2021-0 No 4{drops BID Neomycin-P lymyxin-HC lymyxin-HC 4-02 _into_a olymyxin-H 3.5-77492-3 3.5-78467-9 00:00: ffected C 00 _ear} 3.5-75490- 1 Neomycin-Po Neomycin-Po 2021-0 No 4{drops BID Neomycin-P lymyxin-HC lymyxin-HC 4-02 _into_a olymyxin-H 3.5-38605-5 3.5-20882-0 00:00: ffected C 00 _ear} 3.5-33059- 1 Neomycin-Po Neomycin-Po 2021-0 No 4{drops BID Neomycin-P lymyxin-HC lymyxin-HC 4-02 _into_a olymyxin-H 3.5-35543-9 3.5-49458-2 00:00: ffected C 00 _ear} 3.5-65161- 1 Neomycin-Po Neomycin-Po 2021-0 No 4{drops BID Neomycin-P lymyxin-HC lymyxin-HC 4-02 _into_a olymyxin-H 3.5-03181-2 3.5-42929-9 00:00: ffected C 00 _ear} 3.5-90773- 1 Neomycin-Po Neomycin-Po 2021-0 No 4{drops BID Neomycin-P lymyxin-HC lymyxin-HC 4-02 _into_a olymyxin-H 3.5-78417-1 3.5-53974-3 00:00: ffected C 00 _ear} 3.5-62949- 1 Neomycin-Po Neomycin-Po 2021-0 No 4{drops BID Neomycin-P lymyxin-HC lymyxin-HC 4-02 _into_a olymyxin-H 3.593863-9 3.5-94757-8 00:00: ffected C 00 _ear} 3.5-- 1 Neomycin-Po Neomycin-Po 2020-0 No 4{drops BID Neomycin-P lymyxin-HC lymyxin-HC 4-02 _into_a olymyxin-H 3.5-65701-2 3.504128-3 00:00: ffected C 00 _ear} 3.5-- 1 Neomycin-Po Neomycin-Po 2020- No 4{drops BID Neomycin-P lymyxin-HC lymyxin-HC 4-02 _into_a olymyxin-H 3.589125-4 3.584489-4 00:00: ffected C 00 _ear} 3.5-- Neomycin-Po Neomycin-Po No 4{drops BID Neomycin-P lymyxin-HC lymyxin-HC 4-02 _into_a olymyxin-H 3.577943-2 3.593976-5 00:00: ffected C 00 _ear} 3.5- Neomycin-Po Neomycin-Po No 4{drops BID Neomycin-P lymyxin-HC lymyxin-HC 4-02 _into_a olymyxin-H 3.500173-4 3.578674-9 00:00: ffected C 00 _ear} 3.5- Albuterol Albuterol No 2{puffs Albuterol Sulfate HFA Sulfate HFA 1-21 } Sulfate 108 (90 108 (90 00:00: HFA 108 Base) Base) 00 (90 Base) MCG/ACT MCG/ACT MCG/ACT Albuterol Albuterol No 2{puffs Albuterol Sulfate HFA Sulfate HFA 1-21 } Sulfate 108 (90 108 (90 00:00: HFA 108 Base) Base) 00 (90 Base) MCG/ACT MCG/ACT MCG/ACT Albuterol Albuterol No 2{puffs Albuterol Sulfate HFA Sulfate HFA 1-21 } Sulfate 108 (90 108 (90 00:00: HFA 108 Base) Base) 00 (90 Base) MCG/ACT MCG/ACT MCG/ACT Albuterol Albuterol 2021-0 No 2{puffs Albuterol Sulfate HFA Sulfate HFA 1-21 } Sulfate 108 (90 108 (90 00:00: HFA 108 Base) Base) 00 (90 Base) MCG/ACT MCG/ACT MCG/ACT Albuterol Albuterol 2020-0 No 2{puffs Albuterol Sulfate HFA Sulfate HFA 1-21 } Sulfate 108 (90 108 (90 00:00: HFA 108 Base) Base) 00 (90 Base) MCG/ACT MCG/ACT MCG/ACT Albuterol Albuterol 2020-0 No 2{puffs Albuterol Sulfate HFA Sulfate HFA 1-21 } Sulfate 108 (90 108 (90 00:00: HFA 108 Base) Base) 00 (90 Base) MCG/ACT MCG/ACT MCG/ACT Albuterol Albuterol 2020-0 No 2{puffs Albuterol Sulfate HFA Sulfate HFA 1-21 } Sulfate 108 (90 108 (90 00:00: HFA 108 Base) Base) 00 (90 Base) MCG/ACT MCG/ACT MCG/ACT Albuterol Albuterol 2020-0 No 2{puffs Albuterol Sulfate HFA Sulfate HFA 1-21 } Sulfate 108 (90 108 (90 00:00: HFA 108 Base) Base) 00 (90 Base) MCG/ACT MCG/ACT MCG/ACT Albuterol Albuterol 2020-0 No 2{puffs Albuterol Sulfate HFA Sulfate HFA 1-21 } Sulfate 108 (90 108 (90 00:00: HFA 108 Base) Base) 00 (90 Base) MCG/ACT MCG/ACT MCG/ACT Albuterol Albuterol 2020-0 No 2{puffs Albuterol Sulfate HFA Sulfate HFA 1-21 } Sulfate 108 (90 108 (90 00:00: HFA 108 Base) Base) 00 (90 Base) MCG/ACT MCG/ACT MCG/ACT Albuterol Albuterol 2020-0 No 2{puffs Albuterol Sulfate HFA Sulfate HFA 1-21 } Sulfate 108 (90 108 (90 00:00: HFA 108 Base) Base) 00 (90 Base) MCG/ACT MCG/ACT MCG/ACT Albuterol Albuterol 2020-0 No 2{puffs Albuterol Sulfate HFA Sulfate HFA 1-21 } Sulfate 108 (90 108 (90 00:00: HFA 108 Base) Base) 00 (90 Base) MCG/ACT MCG/ACT MCG/ACT Albuterol Albuterol 1-0 No 2{puffs Albuterol Sulfate HFA Sulfate HFA 1-21 } Sulfate 108 (90 108 (90 00:00: HFA 108 Base) Base) 00 (90 Base) MCG/ACT MCG/ACT MCG/ACT Albuterol Albuterol 1-0 No 2{puffs Albuterol Sulfate HFA Sulfate HFA 1-21 } Sulfate 108 (90 108 (90 00:00: HFA 108 Base) Base) 00 (90 Base) MCG/ACT MCG/ACT MCG/ACT Albuterol Albuterol 2020-0 No 2{puffs Albuterol Sulfate HFA Sulfate HFA 1-21 } Sulfate 108 (90 108 (90 00:00: HFA 108 Base) Base) 00 (90 Base) MCG/ACT MCG/ACT MCG/ACT Albuterol Albuterol 1-0 No 2{puffs Albuterol Sulfate HFA Sulfate HFA 1-21 } Sulfate 108 (90 108 (90 00:00: HFA 108 Base) Base) 00 (90 Base) MCG/ACT MCG/ACT MCG/ACT Albuterol Albuterol 2020-0 No 2{puffs Albuterol Sulfate HFA Sulfate HFA 1-21 } Sulfate 108 (90 108 (90 00:00: HFA 108 Base) Base) 00 (90 Base) MCG/ACT MCG/ACT MCG/ACT Albuterol Albuterol 2020-0 No 2{puffs Albuterol Sulfate HFA Sulfate HFA 1-21 } Sulfate 108 (90 108 (90 00:00: HFA 108 Base) Base) 00 (90 Base) MCG/ACT MCG/ACT MCG/ACT Albuterol Albuterol 2020-0 No 2{puffs Albuterol Sulfate HFA Sulfate HFA 1-21 } Sulfate 108 (90 108 (90 00:00: HFA 108 Base) Base) 00 (90 Base) MCG/ACT MCG/ACT MCG/ACT Albuterol Albuterol 2020-0 No 2{puffs Albuterol Sulfate HFA Sulfate HFA 1-21 } Sulfate 108 (90 108 (90 00:00: HFA 108 Base) Base) 00 (90 Base) MCG/ACT MCG/ACT MCG/ACT Pantoprazol Pantoprazol 0 No 1{table QD Pantoprazo e Sodium 40 e Sodium 40 9-23 t} le Sodium MG MG 00:00: 40 MG 00 Pantoprazol Pantoprazol 0 No 1{table QD Pantoprazo e Sodium 40 e Sodium 40 9-23 t} le Sodium MG MG 00:00: 40 MG 00 Pantoprazol Pantoprazol 0 No 1{table QD Pantoprazo e Sodium 40 e Sodium 40 9-23 t} le Sodium MG MG 00:00: 40 MG 00 Pantoprazol Pantoprazol 0 No 1{table QD Pantoprazo e Sodium 40 e Sodium 40 9-23 t} le Sodium MG MG 00:00: 40 MG 00 Pantoprazol Pantoprazol 0 No 1{table QD Pantoprazo e Sodium 40 e Sodium 40 9-23 t} le Sodium MG MG 00:00: 40 MG 00 Pantoprazol Pantoprazol 0 No 1{table QD Pantoprazo e Sodium 40 e Sodium 40 9-23 t} le Sodium MG MG 00:00: 40 MG 00 Pantoprazol Pantoprazol 0 No 1{table QD Pantoprazo e Sodium 40 e Sodium 40 9-23 t} le Sodium MG MG 00:00: 40 MG 00 Pantoprazol Pantoprazol 0 No 1{table QD Pantoprazo e Sodium 40 e Sodium 40 9-23 t} le Sodium MG MG 00:00: 40 MG 00 Pantoprazol Pantoprazol 0 No 1{table QD Pantoprazo e Sodium 40 e Sodium 40 9-23 t} le Sodium MG MG 00:00: 40 MG 00 Pantoprazol Pantoprazol 0 No 1{table QD Pantoprazo e Sodium 40 e Sodium 40 9-23 t} le Sodium MG MG 00:00: 40 MG 00 Pantoprazol Pantoprazol 0 No 1{table QD Pantoprazo e Sodium 40 e Sodium 40 9-23 t} le Sodium MG MG 00:00: 40 MG 00 Pantoprazol Pantoprazol 2019-0 No 1{table QD Pantoprazo e Sodium 40 e Sodium 40 9-23 t} le Sodium MG MG 00:00: 40 MG 00 Pantoprazol Pantoprazol 2019-0 No 1{table QD Pantoprazo e Sodium 40 e Sodium 40 9-23 t} le Sodium MG MG 00:00: 40 MG 00 Pantoprazol Pantoprazol 2019-0 No 1{table QD Pantoprazo e Sodium 40 e Sodium 40 9-23 t} le Sodium MG MG 00:00: 40 MG 00 Pantoprazol Pantoprazol 2019-0 No 1{table QD Pantoprazo e Sodium 40 e Sodium 40 9-23 t} le Sodium MG MG 00:00: 40 MG 00 Pantoprazol Pantoprazol 2019-0 No 1{table QD Pantoprazo e Sodium 40 e Sodium 40 9-23 t} le Sodium MG MG 00:00: 40 MG 00 Pantoprazol Pantoprazol 2019-0 No 1{table QD Pantoprazo e Sodium 40 e Sodium 40 9-23 t} le Sodium MG MG 00:00: 40 MG 00 Pantoprazol Pantoprazol 2019- No 1{table QD Pantoprazo e Sodium 40 e Sodium 40 9-23 t} le Sodium MG MG 00:00: 40 MG 00 Pantoprazol Pantoprazol 0 No 1{table QD Pantoprazo e Sodium 40 e Sodium 40 9-23 t} le Sodium MG MG 00:00: 40 MG 00 Pantoprazol Pantoprazol 0 No 1{table QD Pantoprazo e Sodium 40 e Sodium 40 9-23 t} le Sodium MG MG 00:00: 40 MG 00 Losartan Losartan Yes Na Tripp 1 tablet Common Potassium Potassium 6-22 Spiri t 00:00: - CHI 00 [facility] Flonase Flonase Yes Na Tripp 1 spray in Common 8-29 each Spirit 00:00: nostril - CHI [facility] Flonase 50 Flonase 50 No 1{spray QD Flonase 50 MCG/ACT MCG/ACT 8 _in_eac MCG/ACT 00:00: h_nostr 00 il} Flonase 50 Flonase 50 No 1{spray QD Flonase 50 MCG/ACT MCG/ACT 8 _in_eac MCG/ACT 00:00: h_nostr 00 il} Flonase 50 Flonase 50 No 1{spray QD Flonase 50 MCG/ACT MCG/ACT 8 _in_eac MCG/ACT 00:00: h_nostr 00 il} Flonase 50 Flonase 50 No 1{spray QD Flonase 50 MCG/ACT MCG/ACT 8-29 _in_eac MCG/ACT 00:00: h_nostr 00 il} Flonase 50 Flonase 50 No 1{spray QD Flonase 50 MCG/ACT MCG/ACT 8-29 _in_eac MCG/ACT 00:00: h_nostr 00 il} Flonase 50 Flonase 50 No 1{spray QD Flonase 50 MCG/ACT MCG/ACT 829 _in_eac MCG/ACT 00:00: h_nostr 00 il} Flonase 50 Flonase 50 No 1{spray QD Flonase 50 MCG/ACT MCG/ACT 829 _in_eac MCG/ACT 00:00: h_nostr 00 il} Flonase 50 Flonase 50 No 1{spray QD Flonase 50 MCG/ACT MCG/ACT 829 _in_eac MCG/ACT 00:00: h_nostr 00 il} Flonase 50 Flonase 50 No 1{spray QD Flonase 50 MCG/ACT MCG/ACT 829 _in_eac MCG/ACT 00:00: h_nostr 00 il} Flonase 50 Flonase 50 No 1{spray QD Flonase 50 MCG/ACT MCG/ACT 829 _in_eac MCG/ACT 00:00: h_nostr 00 il} Flonase 50 Flonase 50 No 1{spray QD Flonase 50 MCG/ACT MCG/ACT 8-29 _in_eac MCG/ACT 00:00: h_nostr 00 il} Flonase 50 Flonase 50 No 1{spray QD Flonase 50 MCG/ACT MCG/ACT 8-29 _in_eac MCG/ACT 00:00: h_nostr 00 il} Flonase 50 Flonase 50 No 1{spray QD Flonase 50 MCG/ACT MCG/ACT 8-29 _in_eac MCG/ACT 00:00: h_nostr 00 il} Flonase 50 Flonase 50 No 1{spray QD Flonase 50 MCG/ACT MCG/ACT 8-29 _in_eac MCG/ACT 00:00: h_nostr 00 il} Flonase 50 Flonase 50 No 1{spray QD Flonase 50 MCG/ACT MCG/ACT 829 _in_eac MCG/ACT 00:00: h_nostr 00 il} Flonase 50 Flonase 50 No 1{spray QD Flonase 50 MCG/ACT MCG/ACT 829 _in_eac MCG/ACT 00:00: h_nostr 00 il} Flonase 50 Flonase 50 No 1{spray QD Flonase 50 MCG/ACT MCG/ACT 829 _in_eac MCG/ACT 00:00: h_nostr 00 il} Flonase 50 Flonase 50 No 1{spray QD Flonase 50 MCG/ACT MCG/ACT 829 _in_eac MCG/ACT 00:00: h_nostr 00 il} Flonase 50 Flonase 50 No 1{spray QD Flonase 50 MCG/ACT MCG/ACT 829 _in_eac MCG/ACT 00:00: h_nostr 00 il} Flonase 50 Flonase 50 No 1{spray QD Flonase 50 MCG/ACT MCG/ACT 829 _in_eac MCG/ACT 00:00: h_nostr 00 il} Flonase 50 Flonase 50 No 1{spray QD Flonase 50 MCG/ACT MCG/ACT 829 _in_eac MCG/ACT 00:00: h_nostr 00 il} Flonase 50 Flonase 50 No 1{spray QD Flonase 50 MCG/ACT MCG/ACT 829 _in_eac MCG/ACT 00:00: h_nostr 00 il} Flonase 50 Flonase 50 No 1{spray QD Flonase 50 MCG/ACT MCG/ACT 8-29 _in_eac MCG/ACT 00:00: h_nostr 00 il} Flonase 50 Flonase 50 No 1{spray QD Flonase 50 MCG/ACT MCG/ACT 8-29 _in_eac MCG/ACT 00:00: h_nostr 00 il} Flonase 50 Flonase 50 No 1{spray QD Flonase 50 MCG/ACT MCG/ACT 8-29 _in_eac MCG/ACT 00:00: h_nostr 00 il} Flonase 50 Flonase 50 No 1{spray QD Flonase 50 MCG/ACT MCG/ACT 8-29 _in_eac MCG/ACT 00:00: h_nostr 00 il} Flonase 50 Flonase 50 No 1{spray QD Flonase 50 MCG/ACT MCG/ACT 829 _in_eac MCG/ACT 00:00: h_nostr 00 il} Flonase 50 Flonase 50 No 1{spray QD Flonase 50 MCG/ACT MCG/ACT 829 _in_eac MCG/ACT 00:00: h_nostr 00 il} Flonase 50 Flonase 50 No 1{spray QD Flonase 50 MCG/ACT MCG/ACT 829 _in_eac MCG/ACT 00:00: h_nostr 00 il} Flonase 50 Flonase 50 No 1{spray QD Flonase 50 MCG/ACT MCG/ACT 8-29 _in_eac MCG/ACT 00:00: h_nostr 00 il} Flonase 50 Flonase 50 No 1{spray QD Flonase 50 MCG/ACT MCG/ACT 8-29 _in_eac MCG/ACT 00:00: h_nostr 00 il} Flonase 50 Flonase 50 No 1{spray QD Flonase 50 MCG/ACT MCG/ACT 8-29 _in_eac MCG/ACT 00:00: h_nostr 00 il} Flonase 50 Flonase 50 No 1{spray QD Flonase 50 MCG/ACT MCG/ACT 8-29 _in_eac MCG/ACT 00:00: h_nostr 00 il} Flonase 50 Flonase 50 No 1{spray QD Flonase 50 MCG/ACT MCG/ACT 8-29 _in_eac MCG/ACT 00:00: h_nostr 00 il} Flonase 50 Flonase 50 No 1{spray QD Flonase 50 MCG/ACT MCG/ACT 8-29 _in_eac MCG/ACT 00:00: h_nostr 00 il} metoprolol 2018-0 Yes 50mg Q.5D Take 50 mg M [facility]i tartrate 2-[address] (LOPRESSOR) 17:42: (two) Hospi ta 50 mg 42 times a l tablet day. clopidogrel 2018-0 Yes 75mg QD Take 75 mg [facility] (PLAVIX) 75 2-[address] mg tablet 17:42: daily. Hospit a 42 l pentoxifyll 2018-0 Yes 400mg Q.[id number] Take 400 [facility] ine 2-[id number] (TRENTal) 17:42: 3D mouth 3 Hospi ta 400 mg CR 42 (three) l tablet times a day with meals. cetirizine 2017-0 Yes 10mg QD Take 10 mg M [facility]i (ZyrTEC) 10 2-[address] MG tablet 17:42: daily. Hospit a 42 l brimonidine 2018-0 Yes 1[drp] Q.5D Administer [facility] (ALPHAGAN) 2-[address] 0.2 % 17:42: both eyes [facility]ospita ophthalmic 42 2 (two) l solution times a day. timolol 2017-0 Yes 1[drp] Q.5D Administer Me thodi (TIMOPTIC) 2-[address] 0.5 % 17:42: both eyes [facility]osp[facility] ophthalmic 42 2 (two) l solution times a day. latanoprost 2017-0 Yes 1[drp] QD Administer [facility] (XALATAN) 2-[address] 0.005 % 17:42: both eyes Hospi ta ophthalmic 42 nightly. l solution glipiZIDE 2017-0 Yes 10mg QD Take 10 mg Me thodi (GLUCOTROL) 2-[address] 10 MG 17:42: daily. [facility]ospita tablet 42 l aspirin 2018-0 Yes 81mg QD Take 81 mg Meth alberto (ECOTRIN) 2-[address] 81 MG 17:42: daily. [facility]ospita enteric 42 l coated tablet citalopram 2018-0 Yes 10mg QD Take 10 mg M ethodi (CeleXA) 10 2-[address] MG tablet 17:42: daily. Hospit a 42 l losartan-hy 2018-0 Yes 2{tbl} QD Take 2 Me thodi drochloroth 2-[address] iazide 17:42: mouth Hospita (HYZAAR) 42 daily. l 50-12.5 mg per tablet potassium 2018-0 Yes 10meq Q.5D Take 10 Meth alberto chloride 2-[address] (K-DUR,KLOR 17:42: mouth 2 Hos angeline -CON) 10 42 (two) l MEQ CR times a tablet day. atorvastati 2018-0 Yes 10mg QD Take 10 mg [facility] n (LIPITOR) 2-[address] 10 MG 17:42: nightly. Hospita tablet 42 l aspirin 2018-0 Yes 81mg QD Take 81 mg Meth alberto (ECOTRIN) 2-[address] 81 MG 11:42: daily. [facility]ospita enteric 42 l coated tablet citalopram 2018-0 Yes 10mg QD Take 10 mg M ethodi (CeleXA) 10 2-[address] MG tablet 11:42: daily. Hospit a 42 l losartan-hy 2018-0 Yes 2{tbl} QD Take 2 Me thodi drochloroth 2-[address] iazide 11:42: mouth Hospita (HYZAAR) 42 daily. l 50-12.5 mg per tablet potassium 2018-0 Yes 10meq Q.5D Take 10 Meth alberto chloride 2-[address] (K-DUR,KLOR 11:42: mouth 2 Hos angeline -CON) 10 42 (two) l MEQ CR times a tablet day. atorvastati 2018-0 Yes 10mg QD Take 10 mg [facility] n (LIPITOR) 2-[address] 10 MG 11:42: nightly. Hospita tablet 42 l metoprolol 2018-0 Yes 50mg Q.5D Take 50 mg M [facility]i tartrate 2-[address] (LOPRESSOR) 11:42: (two) Hospi ta 50 mg 42 times a l tablet day. clopidogrel 2018-0 Yes 75mg QD Take 75 mg [facility] (PLAVIX) 75 2-[address] mg tablet 11:42: daily. Hospit a 42 l pentoxifyll 2018-0 Yes 400mg Q.[id number] Take 400 [facility] ine 2-[id number] (TRENTal) 11:42: 3D mouth 3 Hospi ta 400 mg CR 42 (three) l tablet times a day with meals. cetirizine 2018-0 Yes 10mg QD Take 10 mg M [facility]i (ZyrTEC) 10 2-[address] MG tablet 11:42: daily. Hospit a 42 l brimonidine 2018-0 Yes 1[drp] Q.5D Administer [facility] (ALPHAGAN) 2-[address] 0.2 % 11:42: both eyes [facility]osp[facility] ophthalmic 42 2 (two) l solution times a day. timolol 2018-0 Yes 1[drp] Q.5D Administer Me thodi (TIMOPTIC) 2-[address] 0.5 % 11:42: both eyes [facility]ospita ophthalmic 42 2 (two) l solution times a day. latanoprost 2018-0 Yes 1[drp] QD Administer [facility] (XALATAN) 2-[address] 0.005 % 11:42: both eyes Hospi ta ophthalmic 42 nightly. l solution glipiZIDE 2017-0 Yes 10mg QD Take 10 mg Me thodi (GLUCOTROL) 2-[address] 10 MG 11:42: daily. Hospita tablet 42 l benzonatate 2018-0 Yes 100mg Q.[id number] Take 1 [facility] (TESSALON) 2-[id number] 100 MG 00:00: 3D (100 mg Hospita capsule 00 total) by l mouth 3 (three) times a day as needed for cough for up to 60 doses. benzonatate 2018-0 Yes 100mg Q.[id number] Take 1 [facility] (TESSALON) 2-[id number] 100 MG 00:00: 3D (100 mg Hospita capsule 00 total) by l mouth 3 (three) times a day as needed for cough for up to 60 doses. Ferrlecit No Notes: Memori a 5-01 (sodium l 13:55: ferric [place] 00 gluconate complex (elemental iron) 62.5 mg/5 ml INJ) "Limited stability. Use immediatel y after admixture" (Same as: Ferrlecit) MEDICATION WASTE Product Size: 62.5 mg Product Wasted: ___ mg Timolol 5 No Notes: Memori a MG/ML 4-30 (Same As: l Ophthalmic 22:00: Timoptic, He rmann Solution 00 Betimol) Brimonidine No Notes: Wilfrid mendy tartrate 4-30 Non-formul l 1.5 MG/ML 14:00: nito. (Same He rm Ophthalmic as: Solution Alphagan-P ) Atropine No 0.5 mg, 5 Wilfrid mendy 4-30 mL, Route: l 03:37: IVP, Drug form: INJ, PRN, Dosing Weight 66.818, kg, PRN Bradycardi a, Start date: 06/11/16 22:37:00 CDT, Duration: 30 day, Stop date: 07/11/16 22:36:00 CDT Nitroglycer No Notes: Wilfrid mnedy in 0.4 MG 4-30 (Same l Sublingual 03:37: as:Nitroqu H ermann Tablet 00 ick, Nitrostat) "Do Not Crush" Sublingual tablet latanoprost No Notes: Wilfrid mendy 0.05 MG/ML 4-30 Keep l Ophthalmic 02:00: refrigerat H ermann Solution 00 ed. (Same as:Xalatan ) Opened bottle may be stored at room temperatur e for 6 weeks Ferrlecit No Notes: Memori a -29 (sodium l 18:45: ferric gluconate complex (elemental iron) 62.5 mg/5 ml INJ) "Limited stability. Use immediatel y after admixture" (Same as: Ferrlecit) MEDICATION WASTE Product Size: 62.5 mg Product Wasted: ___ mg Plavix No Notes: Memoria 4-29 (Same As: l 14:00: Plavix) Hydrochloro No 1 tab, Wilfrid mendy thiazide 25 -28 Route: PO, l MG / 14:00: Drug Form: Losartan TAB, Potassium Dosing 100 MG Oral Weight Tablet 66.818, kg, Daily, Start date: 06/10/16 9:00:00 CDT, Duration: 30 day, Stop date: 07/09/16 9:00:00 CDT Lasix No Notes: Memoria 4-28 (Same as: l 14:00: Lasix) Citalopram No 10 mg, 1 Mem oria 4- tab, l 14:00: Route: PO, Christopher 00 Drug form: TAB, Daily, Dosing Weight 66.818, kg, Start date: 06/10/16 9:00:00 CDT, Duration: 30 day, Stop date: 07/09/16 9:00:00 CDT hydrochloro No Notes: Wilfrid mendy thiazide 25 - (Same as: l mg oral 14:00: Hydrodiuri Herm shannan tablet 00 l) With food. Cozaar No Notes: Memoria -28 (Same as: l 14:00: Cozaar) Christopher sodium No 250 mL, Memoria chloride 06-10 [...] With food l Tablet 04:18: or milk [place] [Xanax] 00 (Same as: Xanax) Symbicort No Notes: Memori a 160/4.5 06-10 (Same as: l inhalation 02:00: Symbicort) H ermann aerosol 00 WASTE: with Aerosol - adapter Return to Pharmacy atorvastati No Notes: Wilfrid mendy n 06-10 (Same As: l 02:00: Lipitor) [place] insulin, No Notes: Memoria isophane 06-10 Roll in l 02:00: palms of [place] 00 hands gently; Do not shake vigorously [...] NOT capsular SHAKE) antigen before diphtheria administra [id number] tion. protein (Same as: conjugate Prevnar vaccine / 13) Streptococc us pneumoniae serotype 14 capsular antigen diphtheria [id number] protein conjugate vaccine / Streptococc us pneumoniae serotype 18C capsular antigen d Lovenox No Notes: Memoria 06-09 (Same as: l 11:00: Lovenox) Insulin, No Notes: Memoria Aspart, 06-09 Roll in l Human 02:44: palms of hands gently; Do not shake vigorously . (Same as: NovoLOG) "single patient use only" WASTE: F/P - Black; E - Municipal Trash Bin Stable for 28 days at room temperatur e. Expires in days from ____Date Dextrose No 25 gm, 50 Wilfrid mendy 50% Syringe 06-09 mL, Route: l 02:44: IVP, Drug Form: INJ, Dosing Weight 66.818, kg, PRN, PRN Blood Glucose Results, Start date: 06/08/16 21:44:00 CDT, Duration: 30 day, Stop date: 07/08/16 21:43:00 CDT Glucagon 2017-0 No 1 mg, Memoria 06-09 Route: IM, l 02:44: Drug form: Christopher 00 PDR/INJ, PRN, Dosing Weight 66.818, kg, PRN Blood Glucose Results, Start date: 06/08/16 21:44:00 CDT, Duration: 30 day, Stop date: 07/08/16 21:43:00 CDT Labetalol No Notes: Memori a - (Same as: l 19:46: Normodyne, Trandate) Push over 2 minutes Give bolus over 2-3 minutes. Hydralazine No Notes: Wilfrid mendy - (Same as: l 19:45: Apresoline ) Push [...] 06-08 Drug form: l 15:39: INJ, ONCE, [place] 00 Stop date: 06/08/16 10:39:00 CDT methylPREDN [...] INJ (ANES) 06-08 Total l 14:30: Volume: [place] 00 1,000, Start date: 06/08/16 9:30:00 CDT, Stop date: 06/08/16 10:30:00 CDT Insulin No 6 unit, Memoria regular 06-08 Route: IV, l 14:10: ONCE, Dosing Weight 66.818, kg, Start date: 06/08/16 9:10:00 CDT, Stop date: 06/08/16 9:10:00 CDT Albuterol No Notes: Memori a 0.833 MG/ML 06-08 (Same as: l / 14:07: Duoneb) Ipratropium 00 Palo 0.167 MG/ML Inhalant Solution Calcium No 1,000 mL, Memor ia Chloride 06-08 Rate: 25 l 0.0014 14:07: ml/hr, [place] MEQ/ML / 00 Infuse Potassium over: 40 [...] Route: PO, l #3 17:29: Drug Form: TAB, Dosing Weight 68.636, kg, Q4H, PRN Pain Score 4-6, Start date: 06/03/16 12:29:00 CDT, Duration: 30 day, Stop date: 07/03/16 12:28:00 CDT diphenhydrA No Route: IV, Memoria MINE (ANES) 06-03 Drug form: l 17:24: INJ, ONCE, Christopher Stop date: 06/03/16 12:24:00 CDT methylPREDN No Route: IV, Memoria ISolone 06-03 Drug form: l (ANES) 17:24: INJ, ONCE, Jackelyn Stop date: 06/03/16 12:24:00 CDT ondansetron No Route: IV, Memoria (ANES) 06-03 Drug form: l 17:24: INJ, ONCE, Christopher 00 Stop date: 06/03/16 12:24:00 CDT fentaNYL No Route: IV, Mem oria (ANES) 06-03 Drug form: l 17:24: INJ, ONCE, [place] 00 Stop date: 06/03/16 12:24:00 CDT midazolam No Route: IV, Me moria (ANES) 06-03 Drug form: l 17:24: SOLN, ONCE, Stop date: 06/03/16 12:24:00 CDT famotidine No Route: IV, M emoria (ANES) 06-03 Drug form: l 17:24: INJ, ONCE, [place] 00 Stop date: 06/03/16 12:24:00 CDT vancomycin No Route: IV, M emoria (ANES) 06-03 Drug form: l (ANES) 17:00: INJ, Start Jackelyn date: 06/03/16 12:00:00 CDT, Stop date: 06/03/16 13:00:00 CDT ceFAZolin No Route: IV, Me moria (ANES) 06-03 Drug form: l (ANES) 16:47: INJ, Start Jackelyn date: 06/03/16 11:47:00 CDT, Stop date: 06/03/16 12:47:00 CDT LR 1000 mL No Route: IV, M emoria INJ (ANES) 06-03 Total l 16:35: Volume: Christopher 1,000, Start date: 06/03/16 11:35:00 CDT, Stop date: 06/03/16 12:35:00 CDT Insulin 2017-0 No 2 unit, Memoria regular 06-03 Route: IV, l 16:03: ONCE, Dosing Weight 68.636, kg, Start date: 06/03/16 11:03:00 CDT, Stop date: 06/03/16 11:03:00 CDT Insulin 2017-0 No 6 unit, Memoria regular 06-03 Route: [...] Stop date: 07/03/16 10:40:00 CDT Vancomycin No 2001 mg: Me moria 4-13 infuse l 14:00: over 2.5 hours MEDICATION WASTE Product Size: 1000 mg Product Wasted: ___ mg Ancef No Notes: Memoria 4-13 Same as: l 14:00: Ancef Alendronic 2017- Yes 70 mg = 1 Me moria acid 70 MG 4-13 tab, PO, 0 l Oral Tablet 13:59: Refill(s) H Vitamin B12 Yes 1,000 Memor ia 1000 mcg 4-13 microgram l oral tablet 13:58: = 1 tab, He rm 00 PO, Daily, 0 Refill(s) citalopram Yes 10 mg = 1 Me moria 10 mg oral 4-13 tab, PO, l tablet 13:58: Daily, 0 [place] 00 Refill(s) GlipiZIDE Yes 10 mg = [...] tab, PO, l oral 13:57: TID, 0 Christopher tablet, 00 Refill(s) extended release isosorbide No Carol 20 mg, 1 M [...] 17 tab, Substituti on Allowed, TAB metoprolol 0 Yes Taso 75 mg, 1.5 M emoria 50 mg oral 3-14 Mougouris tab, PO, l tablet 16:04: BID, 30 Christopher 44 tab, Substituti on Allowed, TAB rosuvastati 2012-0 Yes Taso 20 mg, 2 Me moria n 10 mg 3-14 Mougouris tab, PO, l oral tablet 16:02: QPM, 30 Her nagel 51 tab, Substituti on Allowed, TAB isosorbide 2012-0 Yes Taso 20 mg, 1 Mem oria dinitrate 3-14 Mougouris tab, PO, l 20 mg oral 16:02: BID, 60 Herm shannan tablet 41 tab, Substituti on Allowed, TAB diphenhydrA 2012-0 Yes Taso 25 mg, 1 Me moria MINE 25 mg 3-14 Mougouris tab, PO, l oral tablet 16:02: TID, PRN, H ermann 31 30 tab, Itching, Substituti on Allowed, TAB aspirin 325 Yes Taso 325 mg, 1 M emoria mg tablet, 3-14 Mougouris tab, PO, l enteric 16:02: QAM, 30 Christopher coated 25 tab, Substituti on Allowed, ECTAB [...] Kowalski Lissett 20 mg, 0.5 Memoria ISolone -14 Cottrell mL, Route: l 01:20: IV, Drug form: INJ, ONCE, Start date: 04/25/12 20:20:00, Stop date: 04/25/12 20:20:00 simvastatin No Kowalski Lissett 10 mg, 1 Memoria 3-13 Cottrell tab, l 02:00: Route: PO, [place] 00 Drug form: TAB, Bedtime, Dosing Weight 69.091, kg, Start date: 04/24/12 21:00:00, Duration: 30 day, Stop date: 05/23/12 21:00:00 Benadryl No Sanjiv 25 mg, 1 Memor ia 3-12 Congregation tab, l 09:47: Shant Route: PO, Herm shannan Drug form: TAB, TID, Dosing Weight 69.091, kg, PRN Itching, Start date: 04/24/12 4:47:00, Duration: 30 day, Stop date: 05/24/12 4:46:00 1/2 NS 2012- No Taso 1,000 mL, Memori a 1,000 mL 3-11 Mougouris Rate: 50 l 00:46: ml/hr, [place] 00 Infuse over: 20 hr, Route: IV, kg, Total Volume: 1,000, Start date: 04/22/12 19:46:00, Duration: 30 day, Stop date: 05/22/12 19:45:00 Robitussin 2012- No Renee 200 mg, 10 Memoria 100 mg/5 mL 3-10 Abousslema mL, Route: l oral liquid 19:24: n PO, Drug He rm form: LIQ, Q4H, Dosing Weight 69.091, kg, Start date: 04/22/12 14:24:00, Duration: 30 day, Stop date: 05/22/12 12:00:00 potassium 2012- No Papo 20 mEq, M emoria chloride 3-10 Terry 100 mL, l 15:00: Route: Christopher IVPB, Drug form: INJ, Q2H, Start date: 04/22/12 10:00:00, Duration: 2 doses or times, Stop date: 04/22/12 12:00:00 Geodon 2012- No Erasmo 10 mg, Memoria 3-10 Terminella Route: IM, l 06:52: Drug form: [place] PDR/INJ, Q8H, PRN Anxiety, Start date: 04/22/12 0:52:00, Duration: 30 day, Stop date: 05/22/12 0:51:00 aspirin 325 2012- No Luis 325 mg, 1 Memoria mg tablet, 309 Guru tab, l enteric 15:00: Marcin Route: PO, He rmann coated 00 Drug form: ECTAB, QAM, Start date: 04/21/12 9:00:00, Duration: 30 day, Stop date: 05/20/12 9:00:00 famotidine 2012- No Erasmo 20 mg, 1 Me moria 3-09 Terminella tab, l 15:00: Route: PO, [place] 00 Drug form: TAB, Daily, Dosing Weight 69.091, kg, Start date: 04/21/12 9:00:00, Duration: 30 day, Stop date: 05/20/12 9:00:00 niCARdipine No Erasmo IV, Start Memoria 04-20 Terminella date: l 23:35: 04/20/12 Christopher 00 17:35:00, Duration: 30, 200 ml, 69.091 Sodium 2012-0 No Renee 1,000 mL, Memor ia Chloride 04-20 Abousslema Rate: 70 l 0.9% IV 21:38: n ml/hr, Christopher 1,000 mL 00 Infuse over: 14.3 hr, Route: IV, kg, Total Volume: 1,000, Start date: 04/20/12 15:38:00, Stop date: 05/20/12 15:37:00 Tylenol 2012-0 No Luis 650 mg, 1 Mem oria 3-08 Gruu supp, l 21:36: Marcin Route: MA, Jackelyn nn 00 Drug form: SUPP, Q4H, [...] Terry mL, Route: l 21:27: IV, Drug [place] form: INJ, Q2H, PRN Pain Score 7-10, Start date: 04/20/12 15:27:00, Duration: 30 day, Stop date: 05/20/12 15:26:00 morphine No Luis 2 mg, 1 Wilfrid mendy Sulfate 3-08 Guru mL, Route: l 21:24: Marcin IV, Drug [place] form: INJ, Q2H, PRN Pain Score 6-10, Start date: 04/20/12 15:24:00, Duration: 30 day, Stop date: 05/20/12 15:23:00 acetaminoph No Lusi 2 tab, Me moria en-hydrocod 3-08 Guru Route: PO, l one 325 21:24: Marcin Drug Form: He rmann mg-5 mg 00 TAB, Q4H, oral tablet PRN Pain Score 4-6, Start date: 04/20/12 15:24:00, Duration: 30 day, Stop date: 05/20/12 15:23:00 acetaminoph No Luis 1 tab, Me moria en-hydrocod 308 Guru Route: PO, l one 325 21:23: Marcin Drug Form: He rmann mg-5 mg 00 TAB, Q4H, oral tablet PRN Pain Score 1-3, Start date: 04/20/12 15:23:00, Duration: 30 day, Stop date: 05/20/12 15:22:00 hydrALAZINE No Luis 10 mg, 0.5 Memoria 308 Guru mL, Route: l 21:19: Marcin IV, Drug [place] form: INJ, Q6H, PRN Other -See Comment, Start date: 04/20/12 15:19:00, Duration: 30 day, Stop date: 05/20/12 15:18:00 Lactated 2012-0 No Luis 1,000 mL, Me moria Ringers 3-08 Guru Rate: 25 l Injection 15:59: Marcin ml/hr, Herm shannan IV 1,000 mL 00 Infuse over: 40 hr, Route: IV, kg, Total Volume: 1,000, Start date: 04/20/12 9:59:00, Duration: 1 day, Stop date: 04/21/12 9:58:00 losartan 2012-0 No Taso 100 mg, 2 Wilfrid mendy 3-08 Mougouris tab, l 15:00: Route: PO, [place] 00 Drug form: TAB, Daily, Dosing Weight 68.182, kg, Start date: 04/20/12 9:00:00, Duration: 30 day, Stop date: 05/19/12 9:00:00 heparin 2012-0 No Taso 5,000 Memoria 3-08 Mougouris unit, 1 l 03:00: mL, Route: [place] 00 SUB-Q, Drug form: INJ, Q12H, Dosing Weight 68.182, kg, Start date: 04/19/12 21:00:00, Duration: 30 day, Stop date: 05/19/12 9:00:00 latanoprost No Taso 1 drp, Wilfrid mendy ophthalmic 3-08 Mougouris Route: l 0.005% 03:00: OPTH, Christopher solution 00 Bedtime, Drug form: SOLN, Start date: 04/19/12 21:00:00, Duration: 30 day, Stop date: 05/18/12 21:00:00 atropine 2012- No Papo 0.5 mg, 5 Memoria 3-07 Terry mL, Route: l 23:18: IVP, Drug [place] 00 form: INJ, PRN, PRN Bradycardi a, Start date: 04/19/12 17:18:00, Duration: 30 day, Stop date: 05/19/12 18:17:00 nitroglycer 2012-0 No Papo 0.4 mg, 1 Memoria in 0.4 mg 3-07 Terry tab, l sublingual 23:18: Route: SL, H ermann tablet 00 Drug form: TAB, Q5Min, PRN Chest Pain, Start date: 04/19/12 17:18:00, Duration: 30 day, Stop date: 05/19/12 18:17:00 vancomycin 2012-0 No Luis 1 gm, 200 Memoria 3-07 Guru mL, Route: l 23:00: Marcin IVPB, Drug Jackelyn nn 00 form: INJ, ONCALL, Start date: 04/19/12 17:00:00, Duration: 1 day, Stop date: 04/20/12 16:59:00 cefazolin + 2012- No Luis 1 gm, Mem oria Sodium 04-19 Route: l Chloride 23:00: Macrin IVPB, Mckinley n 0.9% IV 100 00 ONCALL, mL Start date: 04/19/12 17:00:00, Duration: 1 day, Stop date: 04/20/12 16:59:00 Lopressor 2012-0 No Taso 75 mg, 3 Wilfrid mendy 3-07 Mougouris tab, l 23:00: Route: PO, [place] 00 Drug form: TAB, BID, Dosing Weight 68.182, kg, Start date: 04/19/12 17:00:00, Stop date: 05/19/12 9:00:00 timolol 2012- No Taso 1 drp, Memoria ophthalmic 3-07 Mougouris Route: l 0.5% 23:00: BOTH EYES, [place] solution 00 QPM, Drug form: SOLN, Start date: 04/19/12 17:00:00, Stop date: 05/18/12 17:00:00 brimonidine No Taso 1 drp, Wilfrid mendy ophthalmic 3-07 Mougouris Route: l 0.15% 23:00: OPTH, BID, Mckinley n solution 00 Drug form: SOLN, Start date: 04/19/12 17:00:00, Stop date: 05/19/12 9:00:00 baclofen 0 No Taso 10 mg, 1 Memor ia [...] Mougouris mL, Route: l 18:50: INJ, Drug form: INJ, Q6H, Dosing Weight [...] Mougouris mL, Route: l 18:49: IVP, Drug Form: INJ, Dosing Weight 68.182, kg, PRN, PRN Blood Glucose Results, Start date: 04/19/12 12:49:00, Duration: 30 day, Stop date: 05/19/12 13:48:00 glucagon 2012-0 No Taso 1 mg, Memoria 3-07 Mougouris Route: IM, l 18:49: Drug form: Christopher PDR/INJ, PRN, Dosing Weight 68.182, kg, PRN Blood Glucose Results, Start date: 04/19/12 12:49:00, Duration: 30 day, Stop date: 05/19/12 13:48:00 insulin 2012-0 No Taso 1 unit, Memoria aspart 3-07 Mougouris 0.01 mL, l 18:49: Route: Christopher [...] drp, Wilfrid mendy ophthalmic 04-19 Mougouris OPTH, l 0.005% 08:50: Bedtime, 3 Jackelyn nn solution 00 ml, Substitute Allowed, SOLN timolol Yes Taso 1 drp, Memoria ophthalmic 04-19 Mougouris OPTH, QPM, l long-acting 08:49: 5 [...] 50 mg, 1 Mem oria Tartrate 50 3-07 Mougouris tab, PO, l mg oral 08:44: BID, [place] tablet 00 Substituti on Allowed glyBURIDE-m Yes 2 tab, PO, Memoria etformin 5 3-07 BID, 60 l mg-500 mg 08:42: tab, [place] oral tablet 12 Substituti on Allowed, Maintenanc e, TAB baclofen Yes Taso 10 mg, PO, Mem oria 3-07 Mougouris BID, l 08:38: Substituti Christopher 01 on Allowed Saline No Papo 5 ml, Memori a Flush 0.9% 04-19 Terry Route: l 06:44: IVP, Drug Form: INJ, Dosing Weight 68.182, kg, PRN, PRN Line Flush, Start date: 04/19/12 0:44:00, Duration: 30 day, Stop date: 05/19/12 1:43:00 acetaminoph No Papo 650 mg, 2 Memoria en 07 Terry tab, l 06:44: Route: PO, Christopher 00 Drug form: TAB, Q4H, Dosing Weight 68.182, kg, PRN Pain/Fever , Start date: 04/19/12 0:44:00, Duration: 30 day, Stop date: 05/19/12 0:43:00 ondansetron No Papo 4 mg, 2 Memoria 3-07 Terry mL, Route: l 06:44: IVP, Drug [...] Benadryl No George 50 mg, Wilfrid mendy 04-19 Route: l 03:13: IVP, ONCE, Dosing Weight 68.182, kg, Priority: STAT, Start date: 04/18/12 21:13:00, Stop date: 04/18/12 21:13:00 SoluMedrol No George 125 mg, Cricket neves 04-19 Route: l 03:12: IVP, ONCE, Dosing Weight 68.182, kg, Priority: STAT, Start date: 04/18/12 21:12:00, Stop date: 04/18/12 21:12:00 Saline No Papo 5 mL, Memori a Flush 0.9% 04-19 [facility] Route: l 03:05: IVP, Drug Form: INJ, Dosing Weight 68.182, kg, Q8H, PRN Line Flush, Start date: 04/18/12 21:05:00, Duration: 30 day, Stop date: 05/18/12 21:04:00, Administer at least once every 8 hoursAdmin ister at least once every 8 hours glipiZIDE 5 glipiZIDE 5 No 1{table QD glipiZIDE t} 5 EQ Allergy EQ Allergy No EQ Allergy Relief Relief Relief (Cetirizine (Cetirizine (Cetirizin ) 10 MG ) 10 MG e) 10 MG Losartan Losartan No 1{table QD Losartan Potassium Potassium t} Potassium 100 MG 100 MG 100 MG Klor-Con Klor-Con No 1{table BID Klor-Con M10 10 MEQ M10 10 MEQ t_with_ M10 10 MEQ food} Citalopram Citalopram No QD Citalopram Hydrobromid Hydrobromid Hydrobromi e 20 MG e 20 MG de 20 MG Potassium Potassium No Potassium Chloride Chloride Chloride Mey ER 10 Mey ER 10 Mey ER 10 MEQ MEQ MEQ Clopidogrel Clopidogrel No Clopidogre Bisulfate Bisulfate l 75 MG 75 MG Bisulfate 75 MG metFORMIN metFORMIN No 1{table QD metFORMIN HCl 500 MG HCl 500 MG t_with_ HCl 500 MG a_meal} Metoprolol Metoprolol No 1{table BID Metoprolol Tartrate 50 Tartrate 50 t_with_ Tartrate MG MG food} 50 MG Citalopram Citalopram No QD Citalopram Hydrobromid Hydrobromid Hydrobromi e 20 MG e 20 MG de 20 MG Clopidogrel Clopidogrel No Clopidogre Bisulfate Bisulfate l 75 MG 75 MG Bisulfate 75 MG EQ Allergy EQ Allergy No EQ Allergy Relief Relief Relief (Cetirizine (Cetirizine (Cetirizin ) 10 MG ) 10 MG e) 10 MG Metoprolol Metoprolol No Metoprolol Tartrate 50 Tartrate 50 Tartrate MG MG 50 MG Lasix 20 MG Lasix 20 MG No 1{table QD Lasix 20 t} MG Timolol Timolol No 1{drop_ QD Timolol Maleate 0.5 Maleate 0.5 into_af Maleate % % fected_ 0.5 % eye} glipiZIDE 5 glipiZIDE 5 No 1{table QD glipiZIDE t} 5 Donepezil Donepezil No 1{table QD Donepezil HCl 5 MG HCl 5 MG t_at_be HCl 5 MG dtime} Losartan Losartan No 1{table QD Losartan Potassium Potassium t} Potassium 100 MG 100 MG 100 MG hydroCHLORO hydroCHLORO No QD hydroCHLOR thiazide 25 thiazide 25 Othiazide MG MG 25 MG metFORMIN metFORMIN No 1{table QD metFORMIN HCl 500 MG HCl 500 MG t_with_ HCl 500 MG a_meal} Pentoxifyll Pentoxifyll No 1{table TID Pentoxifyl ine ER 400 ine ER 400 t_with_ line ER MG MG meals} 400 MG Losartan Losartan No 1{table QD Losartan Potassium Potassium t} Potassium 100 MG 100 MG 100 MG Citalopram Citalopram No QD Citalopram Hydrobromid Hydrobromid Hydrobromi e 20 MG e 20 MG de 20 MG Nitroglycer Nitroglycer No Nitroglyce in 0.4 MG in 0.4 MG rin 0.4 MG Alendronate Alendronate No Alendronat Sodium 70 Sodium 70 e Sodium MG MG 70 MG Atorvastati Atorvastati No 1{table QD Atorvastat n Calcium n Calcium t_at_be in Calcium 20MG 20MG dtime} 20MG metFORMIN metFORMIN No metFORMIN HCl 500 MG HCl 500 MG HCl 500 MG Metoprolol Metoprolol No 1{table BID Metoprolol Tartrate 50 Tartrate 50 t_with_ Tartrate MG MG food} 50 MG Clopidogrel Clopidogrel No Clopidogre Bisulfate Bisulfate l 75 MG 75 MG Bisulfate 75 MG hydroCHLORO hydroCHLORO No QD hydroCHLOR thiazide 25 thiazide 25 Othiazide MG MG 25 MG Metoprolol Metoprolol No Metoprolol Tartrate 50 Tartrate 50 Tartrate MG MG 50 MG glipiZIDE 5 glipiZIDE 5 No 1{table QD glipiZIDE t} 5 Donepezil Donepezil No 1{table QD Donepezil HCl 5 MG HCl 5 MG t_at_be HCl 5 MG dtime} Timolol Timolol No 1{drop_ QD Timolol Maleate 0.5 Maleate 0.5 into_af Maleate % % fected_ 0.5 % eye} Nitroglycer Nitroglycer No Nitroglyce in 0.4 MG in 0.4 MG rin 0.4 MG Losartan Losartan No 1{table QD Losartan Potassium Potassium t} Potassium 100 MG 100 MG 100 MG Atorvastati Atorvastati No Atorvastat n Calcium n Calcium in Calcium 20 MG 20 MG 20 MG Lasix 20 MG Lasix 20 MG No 1{table QD Lasix 20 t} MG Pentoxifyll Pentoxifyll No 1{table TID Pentoxifyl ine ER 400 ine ER 400 t_with_ line ER MG MG meals} 400 MG Benzonatate Benzonatate No Benzonatat 200 MG 200 MG e 200 MG Losartan Losartan No 1{table QD Losartan Potassium Potassium t} Potassium 100 MG 100 MG 100 MG Citalopram Citalopram No QD Citalopram Hydrobromid Hydrobromid Hydrobromi e 20 MG e 20 MG de 20 MG Potassium Potassium No Potassium Chloride Chloride Chloride Mey ER 10 Mey ER 10 Mey ER 10 MEQ MEQ MEQ EQ Allergy EQ Allergy No EQ Allergy Relief Relief Relief (Cetirizine (Cetirizine (Cetirizin ) 10 MG ) 10 MG e) 10 MG Alendronate Alendronate No Alendronat Sodium 70 Sodium 70 e Sodium MG MG 70 MG Citalopram Citalopram No QD Citalopram Hydrobromid Hydrobromid Hydrobromi e 20 MG e 20 MG de 20 MG metFORMIN metFORMIN No metFORMIN HCl 500 MG HCl 500 MG HCl 500 MG Metoprolol Metoprolol No 1{table BID Metoprolol Tartrate 50 Tartrate 50 t_with_ Tartrate MG MG food} 50 MG Clopidogrel Clopidogrel No Clopidogre Bisulfate Bisulfate l 75 MG 75 MG Bisulfate 75 MG hydroCHLORO hydroCHLORO No QD hydroCHLOR thiazide 25 thiazide 25 Othiazide MG MG 25 MG Metoprolol Metoprolol No Metoprolol Tartrate 50 Tartrate 50 Tartrate MG MG 50 MG glipiZIDE 5 glipiZIDE 5 No 1{table QD glipiZIDE t} 5 Donepezil Donepezil No 1{table QD Donepezil HCl 5 MG HCl 5 MG t_at_be HCl 5 MG dtime} Timolol Timolol No 1{drop_ QD Timolol Maleate 0.5 Maleate 0.5 into_af Maleate % % fected_ 0.5 % eye} Nitroglycer Nitroglycer No Nitroglyce in 0.4 MG in 0.4 MG rin 0.4 MG Losartan Losartan No 1{table QD Losartan Potassium Potassium t} Potassium 100 MG 100 MG 100 MG Atorvastati Atorvastati No Atorvastat n Calcium n Calcium in Calcium 20 MG 20 MG 20 MG Lasix 20 MG Lasix 20 MG No 1{table QD Lasix 20 t} MG Pentoxifyll Pentoxifyll No 1{table TID Pentoxifyl ine ER 400 ine ER 400 t_with_ line ER MG MG meals} 400 MG Benzonatate Benzonatate No Benzonatat 200 MG 200 MG e 200 MG Losartan Losartan No 1{table QD Losartan Potassium Potassium t} Potassium 100 MG 100 MG 100 MG Citalopram Citalopram No QD Citalopram Hydrobromid Hydrobromid Hydrobromi e 20 MG e 20 MG de 20 MG Potassium Potassium No Potassium Chloride Chloride Chloride Mey ER 10 Mey ER 10 Mey ER 10 MEQ MEQ MEQ EQ Allergy EQ Allergy No EQ Allergy Relief Relief Relief (Cetirizine (Cetirizine (Cetirizin ) 10 MG ) 10 MG e) 10 MG Alendronate Alendronate No Alendronat Sodium 70 Sodium 70 e Sodium MG MG 70 MG Citalopram Citalopram No QD Citalopram Hydrobromid Hydrobromid Hydrobromi e 20 MG e 20 MG de 20 MG metFORMIN metFORMIN No metFORMIN HCl 500 MG HCl 500 MG HCl 500 MG Clopidogrel Clopidogrel No Clopidogre Bisulfate Bisulfate l 75 MG 75 MG Bisulfate 75 MG hydroCHLORO hydroCHLORO No QD hydroCHLOR thiazide 25 thiazide 25 Othiazide MG MG 25 MG Metoprolol Metoprolol No Metoprolol Tartrate 50 Tartrate 50 Tartrate MG MG 50 MG glipiZIDE 5 glipiZIDE 5 No 1{table QD glipiZIDE t} 5 Benzonatate Benzonatate No Benzonatat 200 MG 200 MG e 200 MG Donepezil Donepezil No 1{table QD Donepezil HCl 5 MG HCl 5 MG t_at_be HCl 5 MG dtime} Timolol Timolol No 1{drop_ QD Timolol Maleate 0.5 Maleate 0.5 into_af Maleate % % fected_ 0.5 % eye} Nitroglycer Nitroglycer No Nitroglyce in 0.4 MG in 0.4 MG rin 0.4 MG Citalopram Citalopram No Citalopram Hydrobromid Hydrobromid Hydrobromi e 20 MG e 20 MG de 20 MG Atorvastati Atorvastati No Atorvastat n Calcium n Calcium in Calcium 20 MG 20 MG 20 MG Lasix 20 MG Lasix 20 MG No 1{table QD Lasix 20 t} MG Pentoxifyll Pentoxifyll No 1{table TID Pentoxifyl ine ER 400 ine ER 400 t_with_ line ER MG MG meals} 400 MG Losartan Losartan No 1{table QD Losartan Potassium Potassium t} Potassium 100 MG 100 MG 100 MG Losartan Losartan No 1{table QD Losartan Potassium Potassium t} Potassium 100 MG 100 MG 100 MG EQ Allergy EQ Allergy No EQ Allergy Relief Relief Relief (Cetirizine (Cetirizine (Cetirizin ) 10 MG ) 10 MG e) 10 MG Alendronate Alendronate No Alendronat Sodium 70 Sodium 70 e Sodium MG MG 70 MG Potassium Potassium No Potassium Chloride Chloride Chloride Mey ER 10 Mey ER 10 Mey ER 10 MEQ MEQ MEQ Losartan Losartan No 1{table QD Losartan Potassium Potassium t} Potassium 100 MG 100 MG 100 MG metFORMIN metFORMIN No metFORMIN HCl 500 MG HCl 500 MG HCl 500 MG Atorvastati Atorvastati No Atorvastat n Calcium n Calcium in Calcium 20 MG 20 MG 20 MG Citalopram Citalopram No Citalopram Hydrobromid Hydrobromid Hydrobromi e 20 MG e 20 MG de 20 MG Potassium Potassium No Potassium Chloride Chloride Chloride Mey ER 10 Mey ER 10 Mey ER 10 MEQ MEQ MEQ Cetirizine Cetirizine No Cetirizine HCl 10 MG HCl 10 MG HCl 10 MG Aspir-81 81 Aspir-81 81 No 1{table QD Aspir-81 MG MG t} 81 MG Donepezil Donepezil No 1{table QD Donepezil HCl 5 MG HCl 5 MG t_at_be HCl 5 MG dtime} Lasix 20 MG Lasix 20 MG No 1{table QD Lasix 20 t} MG Alendronate Alendronate No Alendronat Sodium 70 Sodium 70 e Sodium MG MG 70 MG Citalopram Citalopram No QD Citalopram Hydrobromid Hydrobromid Hydrobromi e 20 MG e 20 MG de 20 MG metFORMIN metFORMIN No 1{table QD metFORMIN HCl 500 MG HCl 500 MG t_with_ HCl 500 MG a_meal} Atorvastati Atorvastati No 1{table QD Atorvastat n Calcium n Calcium t_at_be in Calcium 20MG 20MG dtime} 20MG glipiZIDE 5 glipiZIDE 5 No 1{table QD glipiZIDE t} 5 Clopidogrel Clopidogrel No Clopidogre Bisulfate Bisulfate l 75 MG 75 MG Bisulfate 75 MG Metoprolol Metoprolol No 1{table BID Metoprolol Tartrate 50 Tartrate 50 t_with_ Tartrate MG MG food} 50 MG Benzonatate Benzonatate No Benzonatat 200 MG 200 MG e 200 MG Nitroglycer Nitroglycer No Nitroglyce in 0.4 MG in 0.4 MG rin 0.4 MG Metoprolol Metoprolol No Metoprolol Tartrate 50 Tartrate 50 Tartrate MG MG 50 MG Timolol Timolol No 1{drop_ QD Timolol Maleate 0.5 Maleate 0.5 into_af Maleate % % fected_ 0.5 % eye} Losartan Losartan No 1{table QD Losartan Potassium Potassium t} Potassium 100 MG 100 MG 100 MG hydroCHLORO hydroCHLORO No QD hydroCHLOR thiazide 25 thiazide 25 Othiazide MG MG 25 MG Pentoxifyll Pentoxifyll No 1{table TID Pentoxifyl ine ER 400 ine ER 400 t_with_ line ER MG MG meals} 400 MG Losartan Losartan No 1{table QD Losartan Potassium Potassium t} Potassium 100 MG 100 MG 100 MG metFORMIN metFORMIN No metFORMIN HCl 500 MG HCl 500 MG HCl 500 MG Atorvastati Atorvastati No Atorvastat n Calcium n Calcium in Calcium 20 MG 20 MG 20 MG Citalopram Citalopram No Citalopram Hydrobromid Hydrobromid Hydrobromi e 20 MG e 20 MG de 20 MG Potassium Potassium No Potassium Chloride Chloride Chloride Mey ER 10 Mey ER 10 Mey ER 10 MEQ MEQ MEQ Cetirizine Cetirizine No Cetirizine HCl 10 MG HCl 10 MG HCl 10 MG Aspir-81 81 Aspir-81 81 No 1{table QD Aspir-81 MG MG t} 81 MG Donepezil Donepezil No 1{table QD Donepezil HCl 5 MG HCl 5 MG t_at_be HCl 5 MG dtime} Lasix 20 MG Lasix 20 MG No 1{table QD Lasix 20 t} MG Alendronate Alendronate No Alendronat Sodium 70 Sodium 70 e Sodium MG MG 70 MG Citalopram Citalopram No QD Citalopram Hydrobromid Hydrobromid Hydrobromi e 20 MG e 20 MG de 20 MG metFORMIN metFORMIN No 1{table QD metFORMIN HCl 500 MG HCl 500 MG t_with_ HCl 500 MG a_meal} Atorvastati Atorvastati No 1{table QD Atorvastat n Calcium n Calcium t_at_be in Calcium 20MG 20MG dtime} 20MG glipiZIDE 5 glipiZIDE 5 No 1{table QD glipiZIDE t} 5 Clopidogrel Clopidogrel No Clopidogre Bisulfate Bisulfate l 75 MG 75 MG Bisulfate 75 MG Metoprolol Metoprolol No 1{table BID Metoprolol Tartrate 50 Tartrate 50 t_with_ Tartrate MG MG food} 50 MG Benzonatate Benzonatate No Benzonatat 200 MG 200 MG e 200 MG Nitroglycer Nitroglycer No Nitroglyce in 0.4 MG in 0.4 MG rin 0.4 MG Metoprolol Metoprolol No Metoprolol Tartrate 50 Tartrate 50 Tartrate MG MG 50 MG Timolol Timolol No 1{drop_ QD Timolol Maleate 0.5 Maleate 0.5 into_af Maleate % % fected_ 0.5 % eye} Losartan Losartan No 1{table QD Losartan Potassium Potassium t} Potassium 100 MG 100 MG 100 MG hydroCHLORO hydroCHLORO No QD hydroCHLOR thiazide 25 thiazide 25 Othiazide MG MG 25 MG Pentoxifyll Pentoxifyll No 1{table TID Pentoxifyl ine ER 400 ine ER 400 t_with_ line ER MG MG meals} 400 MG Potassium Potassium No Potassium Chloride Chloride Chloride Mey ER 10 Mey ER 10 Mey ER 10 MEQ MEQ MEQ Aspir-81 81 Aspir-81 81 No 1{table QD Aspir-81 MG MG t} 81 MG metFORMIN metFORMIN No metFORMIN HCl 500 MG HCl 500 MG HCl 500 MG Cetirizine Cetirizine No Cetirizine HCl 10 MG HCl 10 MG HCl 10 MG Lasix 20 MG Lasix 20 MG No 1{table QD Lasix 20 t} MG Donepezil Donepezil No 1{table QD Donepezil HCl 5 MG HCl 5 MG t_at_be HCl 5 MG dtime} Metoprolol Metoprolol No Metoprolol Tartrate 50 Tartrate 50 Tartrate MG MG 50 MG Alendronate Alendronate No Alendronat Sodium 70 Sodium 70 e Sodium MG MG 70 MG Citalopram Citalopram No QD Citalopram Hydrobromid Hydrobromid Hydrobromi e 20 MG e 20 MG de 20 MG metFORMIN metFORMIN No 1{table QD metFORMIN HCl 500 MG HCl 500 MG t_with_ HCl 500 MG a_meal} Atorvastati Atorvastati No 1{table QD Atorvastat n Calcium n Calcium t_at_be in Calcium 20MG 20MG dtime} 20MG glipiZIDE 5 glipiZIDE 5 No 1{table QD glipiZIDE t} 5 Clopidogrel Clopidogrel No Clopidogre Bisulfate Bisulfate l 75 MG 75 MG Bisulfate 75 MG Atorvastati Atorvastati No Atorvastat n Calcium n Calcium in Calcium 20 MG 20 MG 20 MG Timolol Timolol No 1{drop_ QD Timolol Maleate 0.5 Maleate 0.5 into_af Maleate % % fected_ 0.5 % eye} Nitroglycer Nitroglycer No Nitroglyce in 0.4 MG in 0.4 MG rin 0.4 MG Pentoxifyll Pentoxifyll No 1{table TID Pentoxifyl ine ER 400 ine ER 400 t_with_ line ER MG MG meals} 400 MG Benzonatate Benzonatate No Benzonatat 200 MG 200 MG e 200 MG Citalopram Citalopram No Citalopram Hydrobromid Hydrobromid Hydrobromi e 20 MG e 20 MG de 20 MG Losartan Losartan No 1{table QD Losartan Potassium Potassium t} Potassium 100 MG 100 MG 100 MG hydroCHLORO hydroCHLORO No QD hydroCHLOR thiazide 25 thiazide 25 Othiazide MG MG 25 MG Losartan Losartan No 1{table QD Losartan Potassium Potassium t} Potassium 100 MG 100 MG 100 MG Potassium Potassium No Potassium Chloride Chloride Chloride Mey ER 10 Mey ER 10 Mey ER 10 MEQ MEQ MEQ Aspir-81 81 Aspir-81 81 No 1{table QD Aspir-81 MG MG t} 81 MG metFORMIN metFORMIN No metFORMIN HCl 500 MG HCl 500 MG HCl 500 MG Cetirizine Cetirizine No Cetirizine HCl 10 MG HCl 10 MG HCl 10 MG Lasix 20 MG Lasix 20 MG No 1{table QD Lasix 20 t} MG Donepezil Donepezil No 1{table QD Donepezil HCl 5 MG HCl 5 MG t_at_be HCl 5 MG dtime} Metoprolol Metoprolol No Metoprolol Tartrate 50 Tartrate 50 Tartrate MG MG 50 MG Alendronate Alendronate No Alendronat Sodium 70 Sodium 70 e Sodium MG MG 70 MG Citalopram Citalopram No QD Citalopram Hydrobromid Hydrobromid Hydrobromi e 20 MG e 20 MG de 20 MG metFORMIN metFORMIN No 1{table QD metFORMIN HCl 500 MG HCl 500 MG t_with_ HCl 500 MG a_meal} Atorvastati Atorvastati No 1{table QD Atorvastat n Calcium n Calcium t_at_be in Calcium 20MG 20MG dtime} 20MG glipiZIDE 5 glipiZIDE 5 No 1{table QD glipiZIDE t} 5 Clopidogrel Clopidogrel No Clopidogre Bisulfate Bisulfate l 75 MG 75 MG Bisulfate 75 MG Atorvastati Atorvastati No Atorvastat n Calcium n Calcium in Calcium 20 MG 20 MG 20 MG Timolol Timolol No 1{drop_ QD Timolol Maleate 0.5 Maleate 0.5 into_af Maleate % % fected_ 0.5 % eye} Nitroglycer Nitroglycer No Nitroglyce in 0.4 MG in 0.4 MG rin 0.4 MG Pentoxifyll Pentoxifyll No 1{table TID Pentoxifyl ine ER 400 ine ER 400 t_with_ line ER MG MG meals} 400 MG Benzonatate Benzonatate No Benzonatat 200 MG 200 MG e 200 MG Citalopram Citalopram No Citalopram Hydrobromid Hydrobromid Hydrobromi e 20 MG e 20 MG de 20 MG Losartan Losartan No 1{table QD Losartan Potassium Potassium t} Potassium 100 MG 100 MG 100 MG hydroCHLORO hydroCHLORO No QD hydroCHLOR thiazide 25 thiazide 25 Othiazide MG MG 25 MG Losartan Losartan No 1{table QD Losartan Potassium Potassium t} Potassium 100 MG 100 MG 100 MG Losartan Losartan No 1{table QD Losartan Potassium Potassium t} Potassium 100 MG 100 MG 100 MG Metoprolol Metoprolol No Metoprolol Tartrate 50 Tartrate 50 Tartrate MG MG 50 MG hydroCHLORO hydroCHLORO No QD hydroCHLOR thiazide 25 thiazide 25 Othiazide MG MG 25 MG Atorvastati Atorvastati No Atorvastat n Calcium n Calcium in Calcium 20 MG 20 MG 20 MG metFORMIN metFORMIN No 1{table QD metFORMIN HCl 500 MG HCl 500 MG t_with_ HCl 500 MG a_meal} Alendronate Alendronate No Alendronat Sodium 70 Sodium 70 e Sodium MG MG 70 MG Benzonatate Benzonatate No Benzonatat 200 MG 200 MG e 200 MG metFORMIN metFORMIN No metFORMIN HCl 500 MG HCl 500 MG HCl 500 MG Aspir-81 81 Aspir-81 81 No 1{table QD Aspir-81 MG MG t} 81 MG Citalopram Citalopram No Citalopram Hydrobromid Hydrobromid Hydrobromi e 20 MG e 20 MG de 20 MG Donepezil Donepezil No 1{table QD Donepezil HCl 5 MG HCl 5 MG t_at_be HCl 5 MG dtime} Atorvastati Atorvastati No 1{table QD Atorvastat n Calcium n Calcium t_at_be in Calcium 20MG 20MG dtime} 20MG Pentoxifyll Pentoxifyll No 1{table TID Pentoxifyl ine ER 400 ine ER 400 t_with_ line ER MG MG meals} 400 MG Timolol Timolol No 1{drop_ QD Timolol Maleate 0.5 Maleate 0.5 into_af Maleate % % fected_ 0.5 % eye} Citalopram Citalopram No QD Citalopram Hydrobromid Hydrobromid Hydrobromi e 20 MG e 20 MG de 20 MG glipiZIDE 5 glipiZIDE 5 No 1{table QD glipiZIDE t} 5 Nitroglycer Nitroglycer No Nitroglyce in 0.4 MG in 0.4 MG rin 0.4 MG Lasix 20 MG Lasix 20 MG No 1{table QD Lasix 20 t} MG Clopidogrel Clopidogrel No Clopidogre Bisulfate Bisulfate l 75 MG 75 MG Bisulfate 75 MG Potassium Potassium No Potassium Chloride Chloride Chloride Mey ER 10 Mey ER 10 Mey ER 10 MEQ MEQ MEQ Klor-Con Klor-Con Yes Na Tripp 1 tablet Common M10 M10 with food [facility] Benzonatate Benzonatate Yes Na Tripp 1 capsule Common as needed [facility] Plavix Plavix Yes Na Tripp 1 tablet Comm on [facility] Metoprolol Metoprolol Yes Na Tripp 1 tablet Common [facility] Pantop[facility]ol Yes Na Tripp 1 tablet Common e Sodium e Sodium [facility] Aspir-81 Aspir-81 Yes Na Tripp 1 tablet Common [facility] Alendronate Alendronate Yes Na Tripp 1 tablet Common Sodium Sodium [facility] Cetirizine Cetirizine Yes Na Tripp TAKE ONE Common HCl HCl TABLET BY Spirit MOUTH ONCE - [facility] DAILY [facility] Citalopram Citalopram Yes Na Tripp take one Common Hydrobromid Hydrobromid tablet by Spirit e e mouth once - [facility] daily [facility] Hyzaar Hyzaar Yes Na Tripp 1 tablet Comm on [facility] Atorvastati Atorvastati Yes Na Tripp 1 tablet Common n Calcium n Calcium at bedtime [facility] Ketoconazol Ketoconazol Yes Na Tripp 1 Common e e applicatio Spirit n to - [facility] affected [facility] Triamcinolo Triamcinolo Yes Na Tripp 1 Common ne ne applicatio Spirit Acetonide Acetonide n to - [facility] affected [facility] Metformin Metformin Yes Na Tripp 1 tablet Common HCl HCl with a Spirit meal [facility] Pentoxifyll Pentoxifyll Yes Na Tripp 1 tablet Common ine ER ine ER with meals Spiri t [facility] Potassium Potassium Yes Na Tripp TAKE ONE Common Chloride Chloride TABLET BY Sp sherly Mey ER Mey ER MOUTH - [facility] TWICE [facility] GlipiZIDE GlipiZIDE Yes Na Tripp 1 tablet Common [facility] - [facility] Hydrochloro Hydrochloro Yes Na Tripp TAKE 1 Common thiazide thiazide TABLET BY Sp sherly MOUTH ONCE - [facility] DAILY [facility] Cetirizine Cetirizine No Cetirizine HCl 10 MG HCl 10 MG HCl 10 MG Losartan Losartan No 1{table QD Losartan Potassium Potassium t} Potassium 100 MG 100 MG 100 MG hydroCHLORO hydroCHLORO No QD hydroCHLOR thiazide 25 thiazide 25 Othiazide MG MG 25 MG metFORMIN metFORMIN No 1{table QD metFORMIN HCl 500 MG HCl 500 MG t_with_ HCl 500 MG a_meal} Alendronate Alendronate No Alendronat Sodium 70 Sodium 70 e Sodium MG MG 70 MG Benzonatate Benzonatate No Benzonatat 200 MG 200 MG e 200 MG metFORMIN metFORMIN No metFORMIN HCl 500 MG HCl 500 MG HCl 500 MG Clopidogrel Clopidogrel No Clopidogre Bisulfate Bisulfate l 75 MG 75 MG Bisulfate 75 MG Aspir-81 81 Aspir-81 81 No 1{table QD Aspir-81 MG MG t} 81 MG Citalopram Citalopram No Citalopram Hydrobromid Hydrobromid Hydrobromi e 20 MG e 20 MG de 20 MG Donepezil Donepezil No 1{table QD Donepezil HCl 5 MG HCl 5 MG t_at_be HCl 5 MG dtime} Atorvastati Atorvastati No 1{table QD Atorvastat n Calcium n Calcium t_at_be in Calcium 20MG 20MG dtime} 20MG Pentoxifyll Pentoxifyll No 1{table TID Pentoxifyl ine ER 400 ine ER 400 t_with_ line ER MG MG meals} 400 MG Timolol Timolol No 1{drop_ QD Timolol Maleate 0.5 Maleate 0.5 into_af Maleate % % fected_ 0.5 % eye} Citalopram Citalopram No QD Citalopram Hydrobromid Hydrobromid Hydrobromi e 20 MG e 20 MG de 20 MG Atorvastati Atorvastati No Atorvastat n Calcium n Calcium in Calcium 20 MG 20 MG 20 MG Nitroglycer Nitroglycer No Nitroglyce in 0.4 MG in 0.4 MG rin 0.4 MG Lasix 20 MG Lasix 20 MG No 1{table QD Lasix 20 t} MG glipiZIDE 5 glipiZIDE 5 No 1{table QD glipiZIDE t} 5 Metoprolol Metoprolol No Metoprolol Tartrate 50 Tartrate 50 Tartrate MG MG 50 MG Potassium Potassium No Potassium Chloride Chloride Chloride Mey ER 10 Mey ER 10 Mey ER 10 MEQ MEQ MEQ Cetirizine Cetirizine No Cetirizine HCl 10 MG HCl 10 MG HCl 10 MG metFORMIN metFORMIN No metFORMIN HCl 500 MG HCl 500 MG HCl 500 MG Citalopram Citalopram No QD Citalopram Hydrobromid Hydrobromid Hydrobromi e 20 MG e 20 MG de 20 MG Citalopram Citalopram No Citalopram Hydrobromid Hydrobromid Hydrobromi e 20 MG e 20 MG de 20 MG Atorvastati Atorvastati No 1{table QD Atorvastat n Calcium n Calcium t_at_be in Calcium 20MG 20MG dtime} 20MG Benzonatate Benzonatate No Benzonatat 200 MG 200 MG e 200 MG Timolol Timolol No 1{drop_ QD Timolol Maleate 0.5 Maleate 0.5 into_af Maleate % % fected_ 0.5 % eye} hydroCHLORO hydroCHLORO No QD hydroCHLOR thiazide 25 thiazide 25 Othiazide MG MG 25 MG Nitroglycer Nitroglycer No Nitroglyce in 0.4 MG in 0.4 MG rin 0.4 MG Clopidogrel Clopidogrel No Clopidogre Bisulfate Bisulfate l 75 MG 75 MG Bisulfate 75 MG Lasix 20 MG Lasix 20 MG No 1{table QD Lasix 20 t} MG Metoprolol Metoprolol No 1{table BID Metoprolol Tartrate 50 Tartrate 50 t_with_ Tartrate MG MG food} 50 MG Potassium Potassium No Potassium Chloride Chloride Chloride Mey ER 10 Mey ER 10 Mey ER 10 MEQ MEQ MEQ metFORMIN metFORMIN No 1{table QD metFORMIN HCl 500 MG HCl 500 MG t_with_ HCl 500 MG a_meal} Pentoxifyll Pentoxifyll No 1{table TID Pentoxifyl ine ER 400 ine ER 400 t_with_ line ER MG MG meals} 400 MG glipiZIDE 5 glipiZIDE 5 No 1{table QD glipiZIDE t} 5 Atorvastati Atorvastati No Atorvastat n Calcium n Calcium in Calcium 20 MG 20 MG 20 MG Cetirizine Cetirizine No Cetirizine HCl 10 MG HCl 10 MG HCl 10 MG Donepezil Donepezil No 1{table QD Donepezil HCl 5 MG HCl 5 MG t_at_be HCl 5 MG dtime} Losartan Losartan No 1{table QD Losartan Potassium Potassium t} Potassium 100 MG 100 MG 100 MG Metoprolol Metoprolol No Metoprolol Tartrate 50 Tartrate 50 Tartrate MG MG 50 MG Alendronate Alendronate No Alendronat Sodium 70 Sodium 70 e Sodium MG MG 70 MG Aspir-81 81 Aspir-81 81 No 1{table QD Aspir-81 MG MG t} 81 MG Cefdinir Cefdinir No 1{capsu BID Cefdinir 300 MG 300 MG le} 300 MG metFORMIN metFORMIN No metFORMIN HCl 500 MG HCl 500 MG HCl 500 MG Citalopram Citalopram No QD Citalopram Hydrobromid Hydrobromid Hydrobromi e 20 MG e 20 MG de 20 MG Citalopram Citalopram No Citalopram Hydrobromid Hydrobromid Hydrobromi e 20 MG e 20 MG de 20 MG Atorvastati Atorvastati No 1{table QD Atorvastat n Calcium n Calcium t_at_be in Calcium 20MG 20MG dtime} 20MG Benzonatate Benzonatate No Benzonatat 200 MG 200 MG e 200 MG Timolol Timolol No 1{drop_ QD Timolol Maleate 0.5 Maleate 0.5 into_af Maleate % % fected_ 0.5 % eye} hydroCHLORO hydroCHLORO No QD hydroCHLOR thiazide 25 thiazide 25 Othiazide MG MG 25 MG Nitroglycer Nitroglycer No Nitroglyce in 0.4 MG in 0.4 MG rin 0.4 MG Clopidogrel Clopidogrel No Clopidogre Bisulfate Bisulfate l 75 MG 75 MG Bisulfate 75 MG Lasix 20 MG Lasix 20 MG No 1{table QD Lasix 20 t} MG Metoprolol Metoprolol No 1{table BID Metoprolol Tartrate 50 Tartrate 50 t_with_ Tartrate MG MG food} 50 MG Potassium Potassium No Potassium Chloride Chloride Chloride Mey ER 10 Mey ER 10 Mey ER 10 MEQ MEQ MEQ metFORMIN metFORMIN No 1{table QD metFORMIN HCl 500 MG HCl 500 MG t_with_ HCl 500 MG a_meal} Pentoxifyll Pentoxifyll No 1{table TID Pentoxifyl ine ER 400 ine ER 400 t_with_ line ER MG MG meals} 400 MG glipiZIDE 5 glipiZIDE 5 No 1{table QD glipiZIDE t} 5 Atorvastati Atorvastati No Atorvastat n Calcium n Calcium in Calcium 20 MG 20 MG 20 MG Cetirizine Cetirizine No Cetirizine HCl 10 MG HCl 10 MG HCl 10 MG Donepezil Donepezil No 1{table QD Donepezil HCl 5 MG HCl 5 MG t_at_be HCl 5 MG dtime} Losartan Losartan No 1{table QD Losartan Potassium Potassium t} Potassium 100 MG 100 MG 100 MG Metoprolol Metoprolol No Metoprolol Tartrate 50 Tartrate 50 Tartrate MG MG 50 MG Alendronate Alendronate No Alendronat Sodium 70 Sodium 70 e Sodium MG MG 70 MG Aspir-81 81 Aspir-81 81 No 1{table QD Aspir-81 MG MG t} 81 MG Cefdinir Cefdinir No 1{capsu BID Cefdinir 300 MG 300 MG le} 300 MG metFORMIN metFORMIN No metFORMIN HCl 500 MG HCl 500 MG HCl 500 MG Citalopram Citalopram No QD Citalopram Hydrobromid Hydrobromid Hydrobromi e 20 MG e 20 MG de 20 MG Citalopram Citalopram No Citalopram Hydrobromid Hydrobromid Hydrobromi e 20 MG e 20 MG de 20 MG Atorvastati Atorvastati No 1{table QD Atorvastat n Calcium n Calcium t_at_be in Calcium 20MG 20MG dtime} 20MG Benzonatate Benzonatate No Benzonatat 200 MG 200 MG e 200 MG Timolol Timolol No 1{drop_ QD Timolol Maleate 0.5 Maleate 0.5 into_af Maleate % % fected_ 0.5 % eye} hydroCHLORO hydroCHLORO No QD hydroCHLOR thiazide 25 thiazide 25 Othiazide MG MG 25 MG Nitroglycer Nitroglycer No Nitroglyce in 0.4 MG in 0.4 MG rin 0.4 MG Clopidogrel Clopidogrel No Clopidogre Bisulfate Bisulfate l 75 MG 75 MG Bisulfate 75 MG Lasix 20 MG Lasix 20 MG No 1{table QD Lasix 20 t} MG Metoprolol Metoprolol No 1{table BID Metoprolol Tartrate 50 Tartrate 50 t_with_ Tartrate MG MG food} 50 MG Potassium Potassium No Potassium Chloride Chloride Chloride Mey ER 10 Mey ER 10 Mey ER 10 MEQ MEQ MEQ metFORMIN metFORMIN No 1{table QD metFORMIN HCl 500 MG HCl 500 MG t_with_ HCl 500 MG a_meal} Pentoxifyll Pentoxifyll No 1{table TID Pentoxifyl ine ER 400 ine ER 400 t_with_ line ER MG MG meals} 400 MG glipiZIDE 5 glipiZIDE 5 No 1{table QD glipiZIDE t} 5 Atorvastati Atorvastati No Atorvastat n Calcium n Calcium in Calcium 20 MG 20 MG 20 MG Cetirizine Cetirizine No Cetirizine HCl 10 MG HCl 10 MG HCl 10 MG Donepezil Donepezil No 1{table QD Donepezil HCl 5 MG HCl 5 MG t_at_be HCl 5 MG dtime} Losartan Losartan No 1{table QD Losartan Potassium Potassium t} Potassium 100 MG 100 MG 100 MG Metoprolol Metoprolol No Metoprolol Tartrate 50 Tartrate 50 Tartrate MG MG 50 MG Alendronate Alendronate No Alendronat Sodium 70 Sodium 70 e Sodium MG MG 70 MG Aspir-81 81 Aspir-81 81 No 1{table QD Aspir-81 MG MG t} 81 MG Cefdinir Cefdinir No 1{capsu BID Cefdinir 300 MG 300 MG le} 300 MG metFORMIN metFORMIN No metFORMIN HCl 500 MG HCl 500 MG HCl 500 MG Citalopram Citalopram No QD Citalopram Hydrobromid Hydrobromid Hydrobromi e 20 MG e 20 MG de 20 MG Citalopram Citalopram No Citalopram Hydrobromid Hydrobromid Hydrobromi e 20 MG e 20 MG de 20 MG Atorvastati Atorvastati No 1{table QD Atorvastat n Calcium n Calcium t_at_be in Calcium 20MG 20MG dtime} 20MG Benzonatate Benzonatate No Benzonatat 200 MG 200 MG e 200 MG Timolol Timolol No 1{drop_ QD Timolol Maleate 0.5 Maleate 0.5 into_af Maleate % % fected_ 0.5 % eye} hydroCHLORO hydroCHLORO No QD hydroCHLOR thiazide 25 thiazide 25 Othiazide MG MG 25 MG Nitroglycer Nitroglycer No Nitroglyce in 0.4 MG in 0.4 MG rin 0.4 MG Clopidogrel Clopidogrel No Clopidogre Bisulfate Bisulfate l 75 MG 75 MG Bisulfate 75 MG Lasix 20 MG Lasix 20 MG No 1{table QD Lasix 20 t} MG Metoprolol Metoprolol No 1{table BID Metoprolol Tartrate 50 Tartrate 50 t_with_ Tartrate MG MG food} 50 MG Potassium Potassium No Potassium Chloride Chloride Chloride Mey ER 10 Mey ER 10 Mey ER 10 MEQ MEQ MEQ metFORMIN metFORMIN No 1{table QD metFORMIN HCl 500 MG HCl 500 MG t_with_ HCl 500 MG a_meal} Pentoxifyll Pentoxifyll No 1{table TID Pentoxifyl ine ER 400 ine ER 400 t_with_ line ER MG MG meals} 400 MG glipiZIDE 5 glipiZIDE 5 No 1{table QD glipiZIDE t} 5 Atorvastati Atorvastati No Atorvastat n Calcium n Calcium in Calcium 20 MG 20 MG 20 MG Cetirizine Cetirizine No Cetirizine HCl 10 MG HCl 10 MG HCl 10 MG Donepezil Donepezil No 1{table QD Donepezil HCl 5 MG HCl 5 MG t_at_be HCl 5 MG dtime} Losartan Losartan No 1{table QD Losartan Potassium Potassium t} Potassium 100 MG 100 MG 100 MG Metoprolol Metoprolol No Metoprolol Tartrate 50 Tartrate 50 Tartrate MG MG 50 MG Alendronate Alendronate No Alendronat Sodium 70 Sodium 70 e Sodium MG MG 70 MG Aspir-81 81 Aspir-81 81 No 1{table QD Aspir-81 MG MG t} 81 MG Cefdinir Cefdinir No 1{capsu BID Cefdinir 300 MG 300 MG le} 300 MG Potassium Potassium No Potassium Chloride Chloride Chloride Mey ER 10 Mey ER 10 Mey ER 10 MEQ MEQ MEQ Aspir-81 81 Aspir-81 81 No 1{table QD Aspir-81 MG MG t} 81 MG metFORMIN metFORMIN No metFORMIN HCl 500 MG HCl 500 MG HCl 500 MG Cetirizine Cetirizine No Cetirizine HCl 10 MG HCl 10 MG HCl 10 MG Lasix 20 MG Lasix 20 MG No 1{table QD Lasix 20 t} MG Donepezil Donepezil No 1{table QD Donepezil HCl 5 MG HCl 5 MG t_at_be HCl 5 MG dtime} Metoprolol Metoprolol No Metoprolol Tartrate 50 Tartrate 50 Tartrate MG MG 50 MG Alendronate Alendronate No Alendronat Sodium 70 Sodium 70 e Sodium MG MG 70 MG Citalopram Citalopram No QD Citalopram Hydrobromid Hydrobromid Hydrobromi e 20 MG e 20 MG de 20 MG metFORMIN metFORMIN No 1{table QD metFORMIN HCl 500 MG HCl 500 MG t_with_ HCl 500 MG a_meal} Atorvastati Atorvastati No 1{table QD Atorvastat n Calcium n Calcium t_at_be in Calcium 20MG 20MG dtime} 20MG glipiZIDE 5 glipiZIDE 5 No 1{table QD glipiZIDE t} 5 Clopidogrel Clopidogrel No Clopidogre Bisulfate Bisulfate l 75 MG 75 MG Bisulfate 75 MG Atorvastati Atorvastati No Atorvastat n Calcium n Calcium in Calcium 20 MG 20 MG 20 MG Timolol Timolol No 1{drop_ QD Timolol Maleate 0.5 Maleate 0.5 into_af Maleate % % fected_ 0.5 % eye} Nitroglycer Nitroglycer No Nitroglyce in 0.4 MG in 0.4 MG rin 0.4 MG Pentoxifyll Pentoxifyll No 1{table TID Pentoxifyl ine ER 400 ine ER 400 t_with_ line ER MG MG meals} 400 MG Benzonatate Benzonatate No Benzonatat 200 MG 200 MG e 200 MG Citalopram Citalopram No Citalopram Hydrobromid Hydrobromid Hydrobromi e 20 MG e 20 MG de 20 MG Losartan Losartan No 1{table QD Losartan Potassium Potassium t} Potassium 100 MG 100 MG 100 MG hydroCHLORO hydroCHLORO No QD hydroCHLOR thiazide 25 thiazide 25 Othiazide MG MG 25 MG Losartan Losartan No 1{table QD Losartan Potassium Potassium t} Potassium 100 MG 100 MG 100 MG Ketoconazol Ketoconazol No 1{appli BID Ketoconazo e 2 % e 2 % cation_ le 2 % to_affe cted_ar ea} Cetirizine Cetirizine No QD Cetirizine HCl 10MG HCl 10MG HCl 10MG Lasix 20 MG Lasix 20 MG No 1{table QD Lasix 20 t} MG Atorvastati Atorvastati No 1{table QD Atorvastat n Calcium n Calcium t_at_be in Calcium 20MG 20MG dtime} 20MG hydroCHLORO hydroCHLORO No QD hydroCHLOR thiazide 25 thiazide 25 Othiazide MG MG 25 MG Triamcinolo Triamcinolo No 1{appli BID Triamcinol ne ne cation_ one Acetonide Acetonide to_affe Acetonide 0.1 % 0.1 % cted_ar 0.1 % ea} Citalopram Citalopram No QD Citalopram Hydrobromid Hydrobromid Hydrobromi e 20 MG e 20 MG de 20 MG Pantoprazol Pantoprazol No 1{table QD Pantoprazo e Sodium 40 e Sodium 40 t} le Sodium MG MG 40 MG glipiZIDE 5 glipiZIDE 5 No glipiZIDE MG MG 5 MG Benzonatate Benzonatate No 1{capsu BID Benzonatat 100 MG 100 MG le_as_n e 100 MG eeded} Albuterol Albuterol No Albuterol Sulfate HFA Sulfate HFA Sulfate 108 (90 108 (90 HFA 108 Base) Base) (90 Base) MCG/ACT MCG/ACT MCG/ACT metFORMIN metFORMIN No 1{table QD metFORMIN HCl 500 MG HCl 500 MG t_with_ HCl 500 MG a_meal} Metoprolol Metoprolol No 1{table BID Metoprolol Tartrate 50 Tartrate 50 t_with_ Tartrate MG MG food} 50 MG Potassium Potassium No Potassium Chloride Chloride Chloride Mey ER 10 Mey ER 10 Mey ER 10 MEQ MEQ MEQ Losartan Losartan No 1{table QD Losartan Potassium Potassium t} Potassium 100 MG 100 MG 100 MG Klor-Con Klor-Con No 1{table BID Klor-Con M10 10 MEQ M10 10 MEQ t_with_ M10 10 MEQ food} Plavix 75 Plavix 75 No 1{table QD Plavix 75 MG MG t} MG glipiZIDE 5 glipiZIDE 5 No 1{table QD glipiZIDE t} 5 Benzonatate Benzonatate No 1{capsu Benzonatat 200 MG 200 MG le} e 200 MG Pentoxifyll Pentoxifyll No 1{table TID Pentoxifyl ine ER 400 ine ER 400 t_with_ line ER MG MG meals} 400 MG Aspir-81 81 Aspir-81 81 No 1{table QD Aspir-81 MG MG t} 81 MG Alendronate Alendronate No 1{table Alendronat Sodium 70 Sodium 70 t} e Sodium MG MG 70 MG Lasix 20 MG Lasix 20 MG No 1{table QD Lasix 20 t} MG Cetirizine Cetirizine No QD Cetirizine HCl 10MG HCl 10MG HCl 10MG glipiZIDE 5 glipiZIDE 5 No 1{table QD glipiZIDE t} 5 Atorvastati Atorvastati No 1{table QD Atorvastat n Calcium n Calcium t_at_be in Calcium 20MG 20MG dtime} 20MG Triamcinolo Triamcinolo No 1{appli BID Triamcinol ne ne cation_ one Acetonide Acetonide to_affe Acetonide 0.1 % 0.1 % cted_ar 0.1 % ea} hydroCHLORO hydroCHLORO No QD hydroCHLOR thiazide 25 thiazide 25 Othiazide MG MG 25 MG Ketoconazol Ketoconazol No 1{appli BID Ketoconazo e 2 % e 2 % cation_ le 2 % to_affe cted_ar ea} Citalopram Citalopram No QD Citalopram Hydrobromid Hydrobromid Hydrobromi e 20 MG e 20 MG de 20 MG Benzonatate Benzonatate No 1{capsu BID Benzonatat 100 MG 100 MG le_as_n e 100 MG eeded} Benzonatate Benzonatate No 1{capsu Benzonatat 200 MG 200 MG le} e 200 MG Losartan Losartan No 1{table QD Losartan Potassium Potassium t} Potassium 100 MG 100 MG 100 MG Klor-Con Klor-Con No 1{table BID Klor-Con M10 10 MEQ M10 10 MEQ t_with_ M10 10 MEQ food} glipiZIDE 5 glipiZIDE 5 No glipiZIDE MG MG 5 MG Pantoprazol Pantoprazol No 1{table QD Pantoprazo e Sodium 40 e Sodium 40 t} le Sodium MG MG 40 MG Metoprolol Metoprolol No 1{table BID Metoprolol Tartrate 50 Tartrate 50 t_with_ Tartrate MG MG food} 50 MG Albuterol Albuterol No Albuterol Sulfate HFA Sulfate HFA Sulfate 108 (90 108 (90 HFA 108 Base) Base) (90 Base) MCG/ACT MCG/ACT MCG/ACT metFORMIN metFORMIN No 1{table QD metFORMIN HCl 500 MG HCl 500 MG t_with_ HCl 500 MG a_meal} Potassium Potassium No Potassium Chloride Chloride Chloride Mey ER 10 Mey ER 10 Mey ER 10 MEQ MEQ MEQ Aspir-81 81 Aspir-81 81 No 1{table QD Aspir-81 MG MG t} 81 MG Pentoxifyll Pentoxifyll No 1{table TID Pentoxifyl ine ER 400 ine ER 400 t_with_ line ER MG MG meals} 400 MG Alendronate Alendronate No 1{table Alendronat Sodium 70 Sodium 70 t} e Sodium MG MG 70 MG Clopidogrel Clopidogrel No Clopidogre Bisulfate Bisulfate l 75 MG 75 MG Bisulfate 75 MG Lasix 20 MG Lasix 20 MG No 1{table QD Lasix 20 t} MG Citalopram Citalopram No QD Citalopram Hydrobromid Hydrobromid Hydrobromi e 20 MG e 20 MG de 20 MG glipiZIDE 5 glipiZIDE 5 No 1{table QD glipiZIDE t} 5 Atorvastati Atorvastati No 1{table QD Atorvastat n Calcium n Calcium t_at_be in Calcium 20MG 20MG dtime} 20MG Triamcinolo Triamcinolo No 1{appli BID Triamcinol ne ne cation_ one Acetonide Acetonide to_affe Acetonide 0.1 % 0.1 % cted_ar 0.1 % ea} hydroCHLORO hydroCHLORO No QD hydroCHLOR thiazide 25 thiazide 25 Othiazide MG MG 25 MG Ketoconazol Ketoconazol No 1{appli BID Ketoconazo e 2 % e 2 % cation_ le 2 % to_affe cted_ar ea} EQ Allergy EQ Allergy No EQ Allergy Relief Relief Relief (Cetirizine (Cetirizine (Cetirizin ) 10 MG ) 10 MG e) 10 MG Benzonatate Benzonatate No 1{capsu BID Benzonatat 100 MG 100 MG le_as_n e 100 MG eeded} Benzonatate Benzonatate No 1{capsu Benzonatat 200 MG 200 MG le} e 200 MG Losartan Losartan No 1{table QD Losartan Potassium Potassium t} Potassium 100 MG 100 MG 100 MG Klor-Con Klor-Con No 1{table BID Klor-Con M10 10 MEQ M10 10 MEQ t_with_ M10 10 MEQ food} glipiZIDE 5 glipiZIDE 5 No glipiZIDE MG MG 5 MG Pantoprazol Pantoprazol No 1{table QD Pantoprazo e Sodium 40 e Sodium 40 t} le Sodium MG MG 40 MG Metoprolol Metoprolol No 1{table BID Metoprolol Tartrate 50 Tartrate 50 t_with_ Tartrate MG MG food} 50 MG Albuterol Albuterol No Albuterol Sulfate HFA Sulfate HFA Sulfate 108 (90 108 (90 HFA 108 Base) Base) (90 Base) MCG/ACT MCG/ACT MCG/ACT metFORMIN metFORMIN No 1{table QD metFORMIN HCl 500 MG HCl 500 MG t_with_ HCl 500 MG a_meal} Potassium Potassium No Potassium Chloride Chloride Chloride Mey ER 10 Mey ER 10 Mey ER 10 MEQ MEQ MEQ Aspir-81 81 Aspir-81 81 No 1{table QD Aspir-81 MG MG t} 81 MG Pentoxifyll Pentoxifyll No 1{table TID Pentoxifyl ine ER 400 ine ER 400 t_with_ line ER MG MG meals} 400 MG Alendronate Alendronate No 1{table Alendronat Sodium 70 Sodium 70 t} e Sodium MG MG 70 MG Clopidogrel Clopidogrel No Clopidogre Bisulfate Bisulfate l 75 MG 75 MG Bisulfate 75 MG glipiZIDE 5 glipiZIDE 5 No 1{table QD glipiZIDE t} 5 Citalopram Citalopram No QD Citalopram Hydrobromid Hydrobromid Hydrobromi e 20 MG e 20 MG de 20 MG metFORMIN metFORMIN No 1{table QD metFORMIN HCl 500 MG HCl 500 MG t_with_ HCl 500 MG a_meal} Atorvastati Atorvastati No 1{table QD Atorvastat n Calcium n Calcium t_at_be in Calcium 20MG 20MG dtime} 20MG Triamcinolo Triamcinolo No 1{appli BID Triamcinol ne ne cation_ one Acetonide Acetonide to_affe Acetonide 0.1 % 0.1 % cted_ar 0.1 % ea} hydroCHLORO hydroCHLORO No QD hydroCHLOR thiazide 25 thiazide 25 Othiazide MG MG 25 MG Ketoconazol Ketoconazol No 1{appli BID Ketoconazo e 2 % e 2 % cation_ le 2 % to_affe cted_ar ea} EQ Allergy EQ Allergy No EQ Allergy Relief Relief Relief (Cetirizine (Cetirizine (Cetirizin ) 10 MG ) 10 MG e) 10 MG Benzonatate Benzonatate No 1{capsu BID Benzonatat 100 MG 100 MG le_as_n e 100 MG eeded} Benzonatate Benzonatate No 1{capsu Benzonatat 200 MG 200 MG le} e 200 MG Lasix 20 MG Lasix 20 MG No 1{table QD Lasix 20 t} MG Klor-Con Klor-Con No 1{table BID Klor-Con M10 10 MEQ M10 10 MEQ t_with_ M10 10 MEQ food} glipiZIDE 5 glipiZIDE 5 No glipiZIDE MG MG 5 MG Pantoprazol Pantoprazol No 1{table QD Pantoprazo e Sodium 40 e Sodium 40 t} le Sodium MG MG 40 MG Metoprolol Metoprolol No 1{table BID Metoprolol Tartrate 50 Tartrate 50 t_with_ Tartrate MG MG food} 50 MG Albuterol Albuterol No Albuterol Sulfate HFA Sulfate HFA Sulfate 108 (90 108 (90 HFA 108 Base) Base) (90 Base) MCG/ACT MCG/ACT MCG/ACT Losartan Losartan No 1{table QD Losartan Potassium Potassium t} Potassium 100 MG 100 MG 100 MG Potassium Potassium No Potassium Chloride Chloride Chloride Mey ER 10 Mey ER 10 Mey ER 10 MEQ MEQ MEQ Aspir-81 81 Aspir-81 81 No 1{table QD Aspir-81 MG MG t} 81 MG Pentoxifyll Pentoxifyll No 1{table TID Pentoxifyl ine ER 400 ine ER 400 t_with_ line ER MG MG meals} 400 MG Alendronate Alendronate No 1{table Alendronat Sodium 70 Sodium 70 t} e Sodium MG MG 70 MG Clopidogrel Clopidogrel No Clopidogre Bisulfate Bisulfate l 75 MG 75 MG Bisulfate 75 MG glipiZIDE 5 glipiZIDE 5 No 1{table QD glipiZIDE t} 5 Citalopram Citalopram No QD Citalopram Hydrobromid Hydrobromid Hydrobromi e 20 MG e 20 MG de 20 MG metFORMIN metFORMIN No 1{table QD metFORMIN HCl 500 MG HCl 500 MG t_with_ HCl 500 MG a_meal} Atorvastati Atorvastati No 1{table QD Atorvastat n Calcium n Calcium t_at_be in Calcium 20MG 20MG dtime} 20MG Triamcinolo Triamcinolo No 1{appli BID Triamcinol ne ne cation_ one Acetonide Acetonide to_affe Acetonide 0.1 % 0.1 % cted_ar 0.1 % ea} hydroCHLORO hydroCHLORO No QD hydroCHLOR thiazide 25 thiazide 25 Othiazide MG MG 25 MG Ketoconazol Ketoconazol No 1{appli BID Ketoconazo e 2 % e 2 % cation_ le 2 % to_affe cted_ar ea} EQ Allergy EQ Allergy No EQ Allergy Relief Relief Relief (Cetirizine (Cetirizine (Cetirizin ) 10 MG ) 10 MG e) 10 MG Benzonatate Benzonatate No 1{capsu BID Benzonatat 100 MG 100 MG le_as_n e 100 MG eeded} Benzonatate Benzonatate No 1{capsu Benzonatat 200 MG 200 MG le} e 200 MG Lasix 20 MG Lasix 20 MG No 1{table QD Lasix 20 t} MG Klor-Con Klor-Con No 1{table BID Klor-Con M10 10 MEQ M10 10 MEQ t_with_ M10 10 MEQ food} glipiZIDE 5 glipiZIDE 5 No glipiZIDE MG MG 5 MG Pantoprazol Pantoprazol No 1{table QD Pantoprazo e Sodium 40 e Sodium 40 t} le Sodium MG MG 40 MG Metoprolol Metoprolol No 1{table BID Metoprolol Tartrate 50 Tartrate 50 t_with_ Tartrate MG MG food} 50 MG Albuterol Albuterol No Albuterol Sulfate HFA Sulfate HFA Sulfate 108 (90 108 (90 HFA 108 Base) Base) (90 Base) MCG/ACT MCG/ACT MCG/ACT Losartan Losartan No 1{table QD Losartan Potassium Potassium t} Potassium 100 MG 100 MG 100 MG Potassium Potassium No Potassium Chloride Chloride Chloride Mey ER 10 Mey ER 10 Mey ER 10 MEQ MEQ MEQ Aspir-81 81 Aspir-81 81 No 1{table QD Aspir-81 MG MG t} 81 MG Pentoxifyll Pentoxifyll No 1{table TID Pentoxifyl ine ER 400 ine ER 400 t_with_ line ER MG MG meals} 400 MG Alendronate Alendronate No 1{table Alendronat Sodium 70 Sodium 70 t} e Sodium MG MG 70 MG Clopidogrel Clopidogrel No Clopidogre Bisulfate Bisulfate l 75 MG 75 MG Bisulfate 75 MG glipiZIDE 5 glipiZIDE 5 No 1{table QD glipiZIDE t} 5 Citalopram Citalopram No QD Citalopram Hydrobromid Hydrobromid Hydrobromi e 20 MG e 20 MG de 20 MG metFORMIN metFORMIN No 1{table QD metFORMIN HCl 500 MG HCl 500 MG t_with_ HCl 500 MG a_meal} Atorvastati Atorvastati No 1{table QD Atorvastat n Calcium n Calcium t_at_be in Calcium 20MG 20MG dtime} 20MG Triamcinolo Triamcinolo No 1{appli BID Triamcinol ne ne cation_ one Acetonide Acetonide to_affe Acetonide 0.1 % 0.1 % cted_ar 0.1 % ea} hydroCHLORO hydroCHLORO No QD hydroCHLOR thiazide 25 thiazide 25 Othiazide MG MG 25 MG Ketoconazol Ketoconazol No 1{appli BID Ketoconazo e 2 % e 2 % cation_ le 2 % to_affe cted_ar ea} EQ Allergy EQ Allergy No EQ Allergy Relief Relief Relief (Cetirizine (Cetirizine (Cetirizin ) 10 MG ) 10 MG e) 10 MG Benzonatate Benzonatate No 1{capsu BID Benzonatat 100 MG 100 MG le_as_n e 100 MG eeded} Benzonatate Benzonatate No 1{capsu Benzonatat 200 MG 200 MG le} e 200 MG Lasix 20 MG Lasix 20 MG No 1{table QD Lasix 20 t} MG Klor-Con Klor-Con No 1{table BID Klor-Con M10 10 MEQ M10 10 MEQ t_with_ M10 10 MEQ food} glipiZIDE 5 glipiZIDE 5 No glipiZIDE MG MG 5 MG Pantoprazol Pantoprazol No 1{table QD Pantoprazo e Sodium 40 e Sodium 40 t} le Sodium MG MG 40 MG Metoprolol Metoprolol No 1{table BID Metoprolol Tartrate 50 Tartrate 50 t_with_ Tartrate MG MG food} 50 MG Albuterol Albuterol No Albuterol Sulfate HFA Sulfate HFA Sulfate 108 (90 108 (90 HFA 108 Base) Base) (90 Base) MCG/ACT MCG/ACT MCG/ACT Losartan Losartan No 1{table QD Losartan Potassium Potassium t} Potassium 100 MG 100 MG 100 MG Potassium Potassium No Potassium Chloride Chloride Chloride Mey ER 10 Mey ER 10 Mey ER 10 MEQ MEQ MEQ Aspir-81 81 Aspir-81 81 No 1{table QD Aspir-81 MG MG t} 81 MG Pentoxifyll Pentoxifyll No 1{table TID Pentoxifyl ine ER 400 ine ER 400 t_with_ line ER MG MG meals} 400 MG Alendronate Alendronate No 1{table Alendronat Sodium 70 Sodium 70 t} e Sodium MG MG 70 MG Clopidogrel Clopidogrel No Clopidogre Bisulfate Bisulfate l 75 MG 75 MG Bisulfate 75 MG glipiZIDE 5 glipiZIDE 5 No 1{table QD glipiZIDE t} 5 Citalopram Citalopram No QD Citalopram Hydrobromid Hydrobromid Hydrobromi e 20 MG e 20 MG de 20 MG metFORMIN metFORMIN No 1{table QD metFORMIN HCl 500 MG HCl 500 MG t_with_ HCl 500 MG a_meal} Atorvastati Atorvastati No 1{table QD Atorvastat n Calcium n Calcium t_at_be in Calcium 20MG 20MG dtime} 20MG Triamcinolo Triamcinolo No 1{appli BID Triamcinol ne ne cation_ one Acetonide Acetonide to_affe Acetonide 0.1 % 0.1 % cted_ar 0.1 % ea} hydroCHLORO hydroCHLORO No QD hydroCHLOR thiazide 25 thiazide 25 Othiazide MG MG 25 MG Ketoconazol Ketoconazol No 1{appli BID Ketoconazo e 2 % e 2 % cation_ le 2 % to_affe cted_ar ea} EQ Allergy EQ Allergy No EQ Allergy Relief Relief Relief (Cetirizine (Cetirizine (Cetirizin ) 10 MG ) 10 MG e) 10 MG Benzonatate Benzonatate No 1{capsu BID Benzonatat 100 MG 100 MG le_as_n e 100 MG eeded} Benzonatate Benzonatate No 1{capsu Benzonatat 200 MG 200 MG le} e 200 MG Lasix 20 MG Lasix 20 MG No 1{table QD Lasix 20 t} MG Klor-Con Klor-Con No 1{table BID Klor-Con M10 10 MEQ M10 10 MEQ t_with_ M10 10 MEQ food} glipiZIDE 5 glipiZIDE 5 No glipiZIDE MG MG 5 MG Pantoprazol Pantoprazol No 1{table QD Pantoprazo e Sodium 40 e Sodium 40 t} le Sodium MG MG 40 MG Metoprolol Metoprolol No 1{table BID Metoprolol Tartrate 50 Tartrate 50 t_with_ Tartrate MG MG food} 50 MG Albuterol Albuterol No Albuterol Sulfate HFA Sulfate HFA Sulfate 108 (90 108 (90 HFA 108 Base) Base) (90 Base) MCG/ACT MCG/ACT MCG/ACT Losartan Losartan No 1{table QD Losartan Potassium Potassium t} Potassium 100 MG 100 MG 100 MG Potassium Potassium No Potassium Chloride Chloride Chloride Mey ER 10 Mey ER 10 Mey ER 10 MEQ MEQ MEQ Aspir-81 81 Aspir-81 81 No 1{table QD Aspir-81 MG MG t} 81 MG Pentoxifyll Pentoxifyll No 1{table TID Pentoxifyl ine ER 400 ine ER 400 t_with_ line ER MG MG meals} 400 MG Alendronate Alendronate No 1{table Alendronat Sodium 70 Sodium 70 t} e Sodium MG MG 70 MG Clopidogrel Clopidogrel No Clopidogre Bisulfate Bisulfate l 75 MG 75 MG Bisulfate 75 MG glipiZIDE 5 glipiZIDE 5 No 1{table QD glipiZIDE t} 5 Citalopram Citalopram No QD Citalopram Hydrobromid Hydrobromid Hydrobromi e 20 MG e 20 MG de 20 MG metFORMIN metFORMIN No 1{table QD metFORMIN HCl 500 MG HCl 500 MG t_with_ HCl 500 MG a_meal} Atorvastati Atorvastati No 1{table QD Atorvastat n Calcium n Calcium t_at_be in Calcium 20MG 20MG dtime} 20MG Triamcinolo Triamcinolo No 1{appli BID Triamcinol ne ne cation_ one Acetonide Acetonide to_affe Acetonide 0.1 % 0.1 % cted_ar 0.1 % ea} hydroCHLORO hydroCHLORO No QD hydroCHLOR thiazide 25 thiazide 25 Othiazide MG MG 25 MG Ketoconazol Ketoconazol No 1{appli BID Ketoconazo e 2 % e 2 % cation_ le 2 % to_affe cted_ar ea} EQ Allergy EQ Allergy No EQ Allergy Relief Relief Relief (Cetirizine (Cetirizine (Cetirizin ) 10 MG ) 10 MG e) 10 MG glipiZIDE 5 glipiZIDE 5 No glipiZIDE MG MG 5 MG Benzonatate Benzonatate No 1{capsu BID Benzonatat 100 MG 100 MG le_as_n e 100 MG eeded} Albuterol Albuterol No Albuterol Sulfate HFA Sulfate HFA Sulfate 108 (90 108 (90 HFA 108 Base) Base) (90 Base) MCG/ACT MCG/ACT MCG/ACT Alendronate Alendronate No Alendronat Sodium 70 Sodium 70 e Sodium MG MG 70 MG Klor-Con Klor-Con No 1{table BID Klor-Con M10 10 MEQ M10 10 MEQ t_with_ M10 10 MEQ food} Potassium Potassium No Potassium Chloride Chloride Chloride Mey ER 10 Mey ER 10 Mey ER 10 MEQ MEQ MEQ Lasix 20 MG Lasix 20 MG No 1{table QD Lasix 20 t} MG Pantoprazol Pantoprazol No 1{table QD Pantoprazo e Sodium 40 e Sodium 40 t} le Sodium MG MG 40 MG Metoprolol Metoprolol No 1{table BID Metoprolol Tartrate 50 Tartrate 50 t_with_ Tartrate MG MG food} 50 MG Losartan Losartan No 1{table QD Losartan Potassium Potassium t} Potassium 100 MG 100 MG 100 MG Benzonatate Benzonatate No 1{capsu Benzonatat 200 MG 200 MG le} e 200 MG Pentoxifyll Pentoxifyll No 1{table TID Pentoxifyl ine ER 400 ine ER 400 t_with_ line ER MG MG meals} 400 MG Aspir-81 81 Aspir-81 81 No 1{table QD Aspir-81 MG MG t} 81 MG Clopidogrel Clopidogrel No Clopidogre Bisulfate Bisulfate l 75 MG 75 MG Bisulfate 75 MG glipiZIDE 5 glipiZIDE 5 No 1{table QD glipiZIDE t} 5 Citalopram Citalopram No QD Citalopram Hydrobromid Hydrobromid Hydrobromi e 20 MG e 20 MG de 20 MG metFORMIN metFORMIN No 1{table QD metFORMIN HCl 500 MG HCl 500 MG t_with_ HCl 500 MG a_meal} Atorvastati Atorvastati No 1{table QD Atorvastat n Calcium n Calcium t_at_be in Calcium 20MG 20MG dtime} 20MG Triamcinolo Triamcinolo No 1{appli BID Triamcinol ne ne cation_ one Acetonide Acetonide to_affe Acetonide 0.1 % 0.1 % cted_ar 0.1 % ea} hydroCHLORO hydroCHLORO No QD hydroCHLOR thiazide 25 thiazide 25 Othiazide MG MG 25 MG Ketoconazol Ketoconazol No 1{appli BID Ketoconazo e 2 % e 2 % cation_ le 2 % to_affe cted_ar ea} EQ Allergy EQ Allergy No EQ Allergy Relief Relief Relief (Cetirizine (Cetirizine (Cetirizin ) 10 MG ) 10 MG e) 10 MG glipiZIDE 5 glipiZIDE 5 No glipiZIDE MG MG 5 MG Benzonatate Benzonatate No 1{capsu BID Benzonatat 100 MG 100 MG le_as_n e 100 MG eeded} Albuterol Albuterol No Albuterol Sulfate HFA Sulfate HFA Sulfate 108 (90 108 (90 HFA 108 Base) Base) (90 Base) MCG/ACT MCG/ACT MCG/ACT Alendronate Alendronate No Alendronat Sodium 70 Sodium 70 e Sodium MG MG 70 MG Klor-Con Klor-Con No 1{table BID Klor-Con M10 10 MEQ M10 10 MEQ t_with_ M10 10 MEQ food} Potassium Potassium No Potassium Chloride Chloride Chloride Mey ER 10 Mey ER 10 Mey ER 10 MEQ MEQ MEQ Lasix 20 MG Lasix 20 MG No 1{table QD Lasix 20 t} MG Pantoprazol Pantoprazol No 1{table QD Pantoprazo e Sodium 40 e Sodium 40 t} le Sodium MG MG 40 MG Metoprolol Metoprolol No 1{table BID Metoprolol Tartrate 50 Tartrate 50 t_with_ Tartrate MG MG food} 50 MG Losartan Losartan No 1{table QD Losartan Potassium Potassium t} Potassium 100 MG 100 MG 100 MG Benzonatate Benzonatate No 1{capsu Benzonatat 200 MG 200 MG le} e 200 MG Pentoxifyll Pentoxifyll No 1{table TID Pentoxifyl ine ER 400 ine ER 400 t_with_ line ER MG MG meals} 400 MG Aspir-81 81 Aspir-81 81 No 1{table QD Aspir-81 MG MG t} 81 MG Clopidogrel Clopidogrel No Clopidogre Bisulfate Bisulfate l 75 MG 75 MG Bisulfate 75 MG Lasix 20 MG Lasix 20 MG No 1{table QD Lasix 20 t} MG Losartan Losartan No 1{table QD Losartan Potassium Potassium t} Potassium 100 MG 100 MG 100 MG Metoprolol Metoprolol No 1{table BID Metoprolol Tartrate 50 Tartrate 50 t_with_ Tartrate MG MG food} 50 MG Potassium Potassium No Potassium Chloride Chloride Chloride Mey ER 10 Mey ER 10 Mey ER 10 MEQ MEQ MEQ Albuterol Albuterol No Albuterol Sulfate HFA Sulfate HFA Sulfate 108 (90 108 (90 HFA 108 Base) Base) (90 Base) MCG/ACT MCG/ACT MCG/ACT hydroCHLORO hydroCHLORO No QD hydroCHLOR thiazide 25 thiazide 25 Othiazide MG MG 25 MG EQ Allergy EQ Allergy No EQ Allergy Relief Relief Relief (Cetirizine (Cetirizine (Cetirizin ) 10 MG ) 10 MG e) 10 MG Triamcinolo Triamcinolo No 1{appli BID Triamcinol ne ne cation_ one Acetonide Acetonide to_affe Acetonide 0.1 % 0.1 % cted_ar 0.1 % ea} Pantoprazol Pantoprazol No 1{table QD Pantoprazo e Sodium 40 e Sodium 40 t} le Sodium MG MG 40 MG Clopidogrel Clopidogrel No Clopidogre Bisulfate Bisulfate l 75 MG 75 MG Bisulfate 75 MG Ketoconazol Ketoconazol No 1{appli BID Ketoconazo e 2 % e 2 % cation_ le 2 % to_affe cted_ar ea} Benzonatate Benzonatate No 1{capsu Benzonatat 200 MG 200 MG le} e 200 MG metFORMIN metFORMIN No 1{table QD metFORMIN HCl 500 MG HCl 500 MG t_with_ HCl 500 MG a_meal} Benzonatate Benzonatate No 1{capsu BID Benzonatat 100 MG 100 MG le_as_n e 100 MG eeded} Atorvastati Atorvastati No 1{table QD Atorvastat n Calcium n Calcium t_at_be in Calcium 20MG 20MG dtime} 20MG Citalopram Citalopram No QD Citalopram Hydrobromid Hydrobromid Hydrobromi e 20 MG e 20 MG de 20 MG Alendronate Alendronate No Alendronat Sodium 70 Sodium 70 e Sodium MG MG 70 MG glipiZIDE 5 glipiZIDE 5 No glipiZIDE MG MG 5 MG Klor-Con Klor-Con No 1{table BID Klor-Con M10 10 MEQ M10 10 MEQ t_with_ M10 10 MEQ food} Aspir-81 81 Aspir-81 81 No 1{table QD Aspir-81 MG MG t} 81 MG Pentoxifyll Pentoxifyll No 1{table TID Pentoxifyl ine ER 400 ine ER 400 t_with_ line ER MG MG meals} 400 MG Lasix 20 MG Lasix 20 MG No 1{table QD Lasix 20 t} MG Losartan Losartan No 1{table QD Losartan Potassium Potassium t} Potassium 100 MG 100 MG 100 MG Metoprolol Metoprolol No 1{table BID Metoprolol Tartrate 50 Tartrate 50 t_with_ Tartrate MG MG food} 50 MG Potassium Potassium No Potassium Chloride Chloride Chloride Mey ER 10 Mey ER 10 Mey ER 10 MEQ MEQ MEQ Albuterol Albuterol No Albuterol Sulfate HFA Sulfate HFA Sulfate 108 (90 108 (90 HFA 108 Base) Base) (90 Base) MCG/ACT MCG/ACT MCG/ACT hydroCHLORO hydroCHLORO No QD hydroCHLOR thiazide 25 thiazide 25 Othiazide MG MG 25 MG EQ Allergy EQ Allergy No EQ Allergy Relief Relief Relief (Cetirizine (Cetirizine (Cetirizin ) 10 MG ) 10 MG e) 10 MG Triamcinolo Triamcinolo No 1{appli BID Triamcinol ne ne cation_ one Acetonide Acetonide to_affe Acetonide 0.1 % 0.1 % cted_ar 0.1 % ea} Pantoprazol Pantoprazol No 1{table QD Pantoprazo e Sodium 40 e Sodium 40 t} le Sodium MG MG 40 MG Clopidogrel Clopidogrel No Clopidogre Bisulfate Bisulfate l 75 MG 75 MG Bisulfate 75 MG Ketoconazol Ketoconazol No 1{appli BID Ketoconazo e 2 % e 2 % cation_ le 2 % to_affe cted_ar ea} Benzonatate Benzonatate No 1{capsu Benzonatat 200 MG 200 MG le} e 200 MG metFORMIN metFORMIN No 1{table QD metFORMIN HCl 500 MG HCl 500 MG t_with_ HCl 500 MG a_meal} Benzonatate Benzonatate No 1{capsu BID Benzonatat 100 MG 100 MG le_as_n e 100 MG eeded} Atorvastati Atorvastati No 1{table QD Atorvastat n Calcium n Calcium t_at_be in Calcium 20MG 20MG dtime} 20MG Citalopram Citalopram No QD Citalopram Hydrobromid Hydrobromid Hydrobromi e 20 MG e 20 MG de 20 MG Alendronate Alendronate No Alendronat Sodium 70 Sodium 70 e Sodium MG MG 70 MG glipiZIDE 5 glipiZIDE 5 No glipiZIDE MG MG 5 MG Klor-Con Klor-Con No 1{table BID Klor-Con M10 10 MEQ M10 10 MEQ t_with_ M10 10 MEQ food} Aspir-81 81 Aspir-81 81 No 1{table QD Aspir-81 MG MG t} 81 MG Pentoxifyll Pentoxifyll No 1{table TID Pentoxifyl ine ER 400 ine ER 400 t_with_ line ER MG MG meals} 400 MG Metoprolol Metoprolol No 1{table BID Metoprolol Tartrate 50 Tartrate 50 t_with_ Tartrate MG MG food} 50 MG Losartan Losartan No 1{table QD Losartan Potassium Potassium t} Potassium 100 MG 100 MG 100 MG Atorvastati Atorvastati No 1{table QD Atorvastat n Calcium n Calcium t_at_be in Calcium 20MG 20MG dtime} 20MG Potassium Potassium No Potassium Chloride Chloride Chloride Mey ER 10 Mey ER 10 Mey ER 10 MEQ MEQ MEQ Lasix 20 MG Lasix 20 MG No 1{table QD Lasix 20 t} MG Albuterol Albuterol No Albuterol Sulfate HFA Sulfate HFA Sulfate 108 (90 108 (90 HFA 108 Base) Base) (90 Base) MCG/ACT MCG/ACT MCG/ACT Triamcinolo Triamcinolo No 1{appli BID Triamcinol ne ne cation_ one Acetonide Acetonide to_affe Acetonide 0.1 % 0.1 % cted_ar 0.1 % ea} Citalopram Citalopram No QD Citalopram Hydrobromid Hydrobromid Hydrobromi e 20 MG e 20 MG de 20 MG Alendronate Alendronate No Alendronat Sodium 70 Sodium 70 e Sodium MG MG 70 MG Ketoconazol Ketoconazol No 1{appli BID Ketoconazo e 2 % e 2 % cation_ le 2 % to_affe cted_ar ea} Benzonatate Benzonatate No 1{capsu BID Benzonatat 100 MG 100 MG le_as_n e 100 MG eeded} EQ Allergy EQ Allergy No EQ Allergy Relief Relief Relief (Cetirizine (Cetirizine (Cetirizin ) 10 MG ) 10 MG e) 10 MG hydroCHLORO hydroCHLORO No QD hydroCHLOR thiazide 25 thiazide 25 Othiazide MG MG 25 MG metFORMIN metFORMIN No 1{table QD metFORMIN HCl 500 MG HCl 500 MG t_with_ HCl 500 MG a_meal} Pantoprazol Pantoprazol No 1{table QD Pantoprazo e Sodium 40 e Sodium 40 t} le Sodium MG MG 40 MG Clopidogrel Clopidogrel No Clopidogre Bisulfate Bisulfate l 75 MG 75 MG Bisulfate 75 MG Klor-Con Klor-Con No 1{table BID Klor-Con M10 10 MEQ M10 10 MEQ t_with_ M10 10 MEQ food} Benzonatate Benzonatate No Benzonatat 200 MG 200 MG e 200 MG glipiZIDE 5 glipiZIDE 5 No glipiZIDE MG MG 5 MG Aspir-81 81 Aspir-81 81 No 1{table QD Aspir-81 MG MG t} 81 MG Pentoxifyll Pentoxifyll No 1{table TID Pentoxifyl ine ER 400 ine ER 400 t_with_ line ER MG MG meals} 400 MG Atorvastati Atorvastati No 1{table QD Atorvastat n Calcium n Calcium t_at_be in Calcium 20MG 20MG dtime} 20MG Clopidogrel Clopidogrel No Clopidogre Bisulfate Bisulfate l 75 MG 75 MG Bisulfate 75 MG metFORMIN metFORMIN No 1{table QD metFORMIN HCl 500 MG HCl 500 MG t_with_ HCl 500 MG a_meal} Metoprolol Metoprolol No Metoprolol Tartrate 50 Tartrate 50 Tartrate MG MG 50 MG Potassium Potassium No Potassium Chloride Chloride Chloride Mey ER 10 Mey ER 10 Mey ER 10 MEQ MEQ MEQ Albuterol Albuterol No Albuterol Sulfate HFA Sulfate HFA Sulfate 108 (90 108 (90 HFA 108 Base) Base) (90 Base) MCG/ACT MCG/ACT MCG/ACT Lasix 20 MG Lasix 20 MG No 1{table QD Lasix 20 t} MG Citalopram Citalopram No QD Citalopram Hydrobromid Hydrobromid Hydrobromi e 20 MG e 20 MG de 20 MG Klor-Con Klor-Con No 1{table BID Klor-Con M10 10 MEQ M10 10 MEQ t_with_ M10 10 MEQ food} EQ Allergy EQ Allergy No EQ Allergy Relief Relief Relief (Cetirizine (Cetirizine (Cetirizin ) 10 MG ) 10 MG e) 10 MG hydroCHLORO hydroCHLORO No QD hydroCHLOR thiazide 25 thiazide 25 Othiazide MG MG 25 MG Pantoprazol Pantoprazol No 1{table QD Pantoprazo e Sodium 40 e Sodium 40 t} le Sodium MG MG 40 MG Triamcinolo Triamcinolo No 1{appli BID Triamcinol ne ne cation_ one Acetonide Acetonide to_affe Acetonide 0.1 % 0.1 % cted_ar 0.1 % ea} Alendronate Alendronate No Alendronat Sodium 70 Sodium 70 e Sodium MG MG 70 MG Ketoconazol Ketoconazol No 1{appli BID Ketoconazo e 2 % e 2 % cation_ le 2 % to_affe cted_ar ea} Benzonatate Benzonatate No 1{capsu BID Benzonatat 100 MG 100 MG le_as_n e 100 MG eeded} glipiZIDE 5 glipiZIDE 5 No glipiZIDE MG MG 5 MG Benzonatate Benzonatate No Benzonatat 200 MG 200 MG e 200 MG Losartan Losartan No 1{table QD Losartan Potassium Potassium t} Potassium 100 MG 100 MG 100 MG Aspir-81 81 Aspir-81 81 No 1{table QD Aspir-81 MG MG t} 81 MG Pentoxifyll Pentoxifyll No 1{table TID Pentoxifyl ine ER 400 ine ER 400 t_with_ line ER MG MG meals} 400 MG Atorvastati Atorvastati No 1{table QD Atorvastat n Calcium n Calcium t_at_be in Calcium 20MG 20MG dtime} 20MG Clopidogrel Clopidogrel No Clopidogre Bisulfate Bisulfate l 75 MG 75 MG Bisulfate 75 MG metFORMIN metFORMIN No 1{table QD metFORMIN HCl 500 MG HCl 500 MG t_with_ HCl 500 MG a_meal} Metoprolol Metoprolol No Metoprolol Tartrate 50 Tartrate 50 Tartrate MG MG 50 MG Potassium Potassium No Potassium Chloride Chloride Chloride Mey ER 10 Mey ER 10 Mey ER 10 MEQ MEQ MEQ Albuterol Albuterol No Albuterol Sulfate HFA Sulfate HFA Sulfate 108 (90 108 (90 HFA 108 Base) Base) (90 Base) MCG/ACT MCG/ACT MCG/ACT Lasix 20 MG Lasix 20 MG No 1{table QD Lasix 20 t} MG Citalopram Citalopram No QD Citalopram Hydrobromid Hydrobromid Hydrobromi e 20 MG e 20 MG de 20 MG Klor-Con Klor-Con No 1{table BID Klor-Con M10 10 MEQ M10 10 MEQ t_with_ M10 10 MEQ food} EQ Allergy EQ Allergy No EQ Allergy Relief Relief Relief (Cetirizine (Cetirizine (Cetirizin ) 10 MG ) 10 MG e) 10 MG hydroCHLORO hydroCHLORO No QD hydroCHLOR thiazide 25 thiazide 25 Othiazide MG MG 25 MG Pantoprazol Pantoprazol No 1{table QD Pantoprazo e Sodium 40 e Sodium 40 t} le Sodium MG MG 40 MG Triamcinolo Triamcinolo No 1{appli BID Triamcinol ne ne cation_ one Acetonide Acetonide to_affe Acetonide 0.1 % 0.1 % cted_ar 0.1 % ea} Alendronate Alendronate No Alendronat Sodium 70 Sodium 70 e Sodium MG MG 70 MG Ketoconazol Ketoconazol No 1{appli BID Ketoconazo e 2 % e 2 % cation_ le 2 % to_affe cted_ar ea} Benzonatate Benzonatate No 1{capsu BID Benzonatat 100 MG 100 MG le_as_n e 100 MG eeded} glipiZIDE 5 glipiZIDE 5 No glipiZIDE MG MG 5 MG Benzonatate Benzonatate No Benzonatat 200 MG 200 MG e 200 MG Losartan Losartan No 1{table QD Losartan Potassium Potassium t} Potassium 100 MG 100 MG 100 MG Aspir-81 81 Aspir-81 81 No 1{table QD Aspir-81 MG MG t} 81 MG Pentoxifyll Pentoxifyll No 1{table TID Pentoxifyl ine ER 400 ine ER 400 t_with_ line ER MG MG meals} 400 MG Metoprolol Metoprolol No Metoprolol Tartrate 50 Tartrate 50 Tartrate MG MG 50 MG Potassium Potassium No Potassium Chloride Chloride Chloride Mey ER 10 Mey ER 10 Mey ER 10 MEQ MEQ MEQ metFORMIN metFORMIN No 1{table QD metFORMIN HCl 500 MG HCl 500 MG t_with_ HCl 500 MG a_meal} Albuterol Albuterol No Albuterol Sulfate HFA Sulfate HFA Sulfate 108 (90 108 (90 HFA 108 Base) Base) (90 Base) MCG/ACT MCG/ACT MCG/ACT Lasix 20 MG Lasix 20 MG No 1{table QD Lasix 20 t} MG EQ Allergy EQ Allergy No EQ Allergy Relief Relief Relief (Cetirizine (Cetirizine (Cetirizin ) 10 MG ) 10 MG e) 10 MG Triamcinolo Triamcinolo No 1{appli BID Triamcinol ne ne cation_ one Acetonide Acetonide to_affe Acetonide 0.1 % 0.1 % cted_ar 0.1 % ea} Alendronate Alendronate No Alendronat Sodium 70 Sodium 70 e Sodium MG MG 70 MG Clopidogrel Clopidogrel No Clopidogre Bisulfate Bisulfate l 75 MG 75 MG Bisulfate 75 MG hydroCHLORO hydroCHLORO No QD hydroCHLOR thiazide 25 thiazide 25 Othiazide MG MG 25 MG Benzonatate Benzonatate No 1{capsu BID Benzonatat 100 MG 100 MG le_as_n e 100 MG eeded} Ketoconazol Ketoconazol No 1{appli BID Ketoconazo e 2 % e 2 % cation_ le 2 % to_affe cted_ar ea} Pantoprazol Pantoprazol No 1{table QD Pantoprazo e Sodium 40 e Sodium 40 t} le Sodium MG MG 40 MG Atorvastati Atorvastati No 1{table QD Atorvastat n Calcium n Calcium t_at_be in Calcium 20MG 20MG dtime} 20MG Citalopram Citalopram No QD Citalopram Hydrobromid Hydrobromid Hydrobromi e 20 MG e 20 MG de 20 MG Klor-Con Klor-Con No 1{table BID Klor-Con M10 10 MEQ M10 10 MEQ t_with_ M10 10 MEQ food} Losartan Losartan No 1{table QD Losartan Potassium Potassium t} Potassium 100 MG 100 MG 100 MG glipiZIDE 5 glipiZIDE 5 No glipiZIDE MG MG 5 MG Aspir-81 81 Aspir-81 81 No 1{table QD Aspir-81 MG MG t} 81 MG Pentoxifyll Pentoxifyll No 1{table TID Pentoxifyl ine ER 400 ine ER 400 t_with_ line ER MG MG meals} 400 MG Metoprolol Metoprolol No Metoprolol Tartrate 50 Tartrate 50 Tartrate MG MG 50 MG metFORMIN metFORMIN No 1{table QD metFORMIN HCl 500 MG HCl 500 MG t_with_ HCl 500 MG a_meal} Lasix 20 MG Lasix 20 MG No 1{table QD Lasix 20 t} MG Albuterol Albuterol No Albuterol Sulfate HFA Sulfate HFA Sulfate 108 (90 108 (90 HFA 108 Base) Base) (90 Base) MCG/ACT MCG/ACT MCG/ACT EQ Allergy EQ Allergy No EQ Allergy Relief Relief Relief (Cetirizine (Cetirizine (Cetirizin ) 10 MG ) 10 MG e) 10 MG Triamcinolo Triamcinolo No 1{appli BID Triamcinol ne ne cation_ one Acetonide Acetonide to_affe Acetonide 0.1 % 0.1 % cted_ar 0.1 % ea} Alendronate Alendronate No Alendronat Sodium 70 Sodium 70 e Sodium MG MG 70 MG Atorvastati Atorvastati No 1{table QD Atorvastat n Calcium n Calcium t_at_be in Calcium 20MG 20MG dtime} 20MG hydroCHLORO hydroCHLORO No QD hydroCHLOR thiazide 25 thiazide 25 Othiazide MG MG 25 MG Benzonatate Benzonatate No 1{capsu BID Benzonatat 100 MG 100 MG le_as_n e 100 MG eeded} Ketoconazol Ketoconazol No 1{appli BID Ketoconazo e 2 % e 2 % cation_ le 2 % to_affe cted_ar ea} Clopidogrel Clopidogrel No Clopidogre Bisulfate Bisulfate l 75 MG 75 MG Bisulfate 75 MG Pantoprazol Pantoprazol No 1{table QD Pantoprazo e Sodium 40 e Sodium 40 t} le Sodium MG MG 40 MG Potassium Potassium No Potassium Chloride Chloride Chloride Mey ER 10 Mey ER 10 Mey ER 10 MEQ MEQ MEQ Citalopram Citalopram No QD Citalopram Hydrobromid Hydrobromid Hydrobromi e 20 MG e 20 MG de 20 MG Klor-Con Klor-Con No 1{table BID Klor-Con M10 10 MEQ M10 10 MEQ t_with_ M10 10 MEQ food} Losartan Losartan No 1{table QD Losartan Potassium Potassium t} Potassium 100 MG 100 MG 100 MG glipiZIDE 5 glipiZIDE 5 No glipiZIDE MG MG 5 MG Aspir-81 81 Aspir-81 81 No 1{table QD Aspir-81 MG MG t} 81 MG Pentoxifyll Pentoxifyll No 1{table TID Pentoxifyl ine ER 400 ine ER 400 t_with_ line ER MG MG meals} 400 MG Albuterol Albuterol No Albuterol Sulfate HFA Sulfate HFA Sulfate 108 (90 108 (90 HFA 108 Base) Base) (90 Base) MCG/ACT MCG/ACT MCG/ACT Klor-Con Klor-Con No 1{table BID Klor-Con M10 10 MEQ M10 10 MEQ t_with_ M10 10 MEQ food} Pantoprazol Pantoprazol No 1{table QD Pantoprazo e Sodium 40 e Sodium 40 t} le Sodium MG MG 40 MG Alendronate Alendronate No Alendronat Sodium 70 Sodium 70 e Sodium MG MG 70 MG Lasix 20 MG Lasix 20 MG No 1{table QD Lasix 20 t} MG Benzonatate Benzonatate No 1{capsu BID Benzonatat 100 MG 100 MG le_as_n e 100 MG eeded} Potassium Potassium No Potassium Chloride Chloride Chloride Mye ER 10 Mey ER 10 Mey ER 10 MEQ MEQ MEQ Citalopram Citalopram No QD Citalopram Hydrobromid Hydrobromid Hydrobromi e 20 MG e 20 MG de 20 MG Metoprolol Metoprolol No Metoprolol Tartrate 50 Tartrate 50 Tartrate MG MG 50 MG glipiZIDE 5 glipiZIDE 5 No glipiZIDE MG MG 5 MG Aspir-81 81 Aspir-81 81 No 1{table QD Aspir-81 MG MG t} 81 MG Metoprolol Metoprolol No 1{table BID Metoprolol Tartrate 50 Tartrate 50 t_with_ Tartrate MG MG food} 50 MG EQ Allergy EQ Allergy No EQ Allergy Relief Relief Relief (Cetirizine (Cetirizine (Cetirizin ) 10 MG ) 10 MG e) 10 MG Pentoxifyll Pentoxifyll No 1{table TID Pentoxifyl ine ER 400 ine ER 400 t_with_ line ER MG MG meals} 400 MG Losartan Losartan No 1{table QD Losartan Potassium Potassium t} Potassium 100 MG 100 MG 100 MG Triamcinolo Triamcinolo No 1{appli BID Triamcinol ne ne cation_ one Acetonide Acetonide to_affe Acetonide 0.1 % 0.1 % cted_ar 0.1 % ea} Atorvastati Atorvastati No 1{table QD Atorvastat n Calcium n Calcium t_at_be in Calcium 20MG 20MG dtime} 20MG hydroCHLORO hydroCHLORO No QD hydroCHLOR thiazide 25 thiazide 25 Othiazide MG MG 25 MG glipiZIDE 5 glipiZIDE 5 No 1{table QD glipiZIDE t} 5 Ketoconazol Ketoconazol No 1{appli BID Ketoconazo e 2 % e 2 % cation_ le 2 % to_affe cted_ar ea} Clopidogrel Clopidogrel No Clopidogre Bisulfate Bisulfate l 75 MG 75 MG Bisulfate 75 MG metFORMIN metFORMIN No 1{table QD metFORMIN HCl 500 MG HCl 500 MG t_with_ HCl 500 MG a_meal} Klor-Con Klor-Con No 1{table BID Klor-Con M10 10 MEQ M10 10 MEQ t_with_ M10 10 MEQ food} Albuterol Albuterol No Albuterol Sulfate HFA Sulfate HFA Sulfate 108 (90 108 (90 HFA 108 Base) Base) (90 Base) MCG/ACT MCG/ACT MCG/ACT Triamcinolo Triamcinolo No 1{appli BID Triamcinol ne ne cation_ one Acetonide Acetonide to_affe Acetonide 0.1 % 0.1 % cted_ar 0.1 % ea} Pantoprazol Pantoprazol No 1{table QD Pantoprazo e Sodium 40 e Sodium 40 t} le Sodium MG MG 40 MG Alendronate Alendronate No Alendronat Sodium 70 Sodium 70 e Sodium MG MG 70 MG Benzonatate Benzonatate No 1{capsu BID Benzonatat 100 MG 100 MG le_as_n e 100 MG eeded} Potassium Potassium No Potassium Chloride Chloride Chloride Mey ER 10 Mey ER 10 Mey ER 10 MEQ MEQ MEQ Citalopram Citalopram No QD Citalopram Hydrobromid Hydrobromid Hydrobromi e 20 MG e 20 MG de 20 MG Metoprolol Metoprolol No Metoprolol Tartrate 50 Tartrate 50 Tartrate MG MG 50 MG Metoprolol Metoprolol No 1{table BID Metoprolol Tartrate 50 Tartrate 50 t_with_ Tartrate MG MG food} 50 MG Aspir-81 81 Aspir-81 81 No 1{table QD Aspir-81 MG MG t} 81 MG Lasix 20 MG Lasix 20 MG No 1{table QD Lasix 20 t} MG EQ Allergy EQ Allergy No EQ Allergy Relief Relief Relief (Cetirizine (Cetirizine (Cetirizin ) 10 MG ) 10 MG e) 10 MG Pentoxifyll Pentoxifyll No 1{table TID Pentoxifyl ine ER 400 ine ER 400 t_with_ line ER MG MG meals} 400 MG Losartan Losartan No 1{table QD Losartan Potassium Potassium t} Potassium 100 MG 100 MG 100 MG glipiZIDE 5 glipiZIDE 5 No glipiZIDE MG MG 5 MG Atorvastati Atorvastati No 1{table QD Atorvastat n Calcium n Calcium t_at_be in Calcium 20MG 20MG dtime} 20MG hydroCHLORO hydroCHLORO No QD hydroCHLOR thiazide 25 thiazide 25 Othiazide MG MG 25 MG glipiZIDE 5 glipiZIDE 5 No 1{table QD glipiZIDE t} 5 Ketoconazol Ketoconazol No 1{appli BID Ketoconazo e 2 % e 2 % cation_ le 2 % to_affe cted_ar ea} Clopidogrel Clopidogrel No Clopidogre Bisulfate Bisulfate l 75 MG 75 MG Bisulfate 75 MG metFORMIN metFORMIN No 1{table QD metFORMIN HCl 500 MG HCl 500 MG t_with_ HCl 500 MG a_meal} Alendronate Alendronate No Alendronat Sodium 70 Sodium 70 e Sodium MG MG 70 MG Benzonatate Benzonatate No 1{capsu BID Benzonatat 100 MG 100 MG le_as_n e 100 MG eeded} EQ Allergy EQ Allergy No EQ Allergy Relief Relief Relief (Cetirizine (Cetirizine (Cetirizin ) 10 MG ) 10 MG e) 10 MG Metoprolol Metoprolol No Metoprolol Tartrate 50 Tartrate 50 Tartrate MG MG 50 MG Aspir-81 81 Aspir-81 81 No 1{table QD Aspir-81 MG MG t} 81 MG Lasix 20 MG Lasix 20 MG No 1{table QD Lasix 20 t} MG Potassium Potassium No Potassium Chloride Chloride Chloride Mey ER 10 Mey ER 10 Mey ER 10 MEQ MEQ MEQ Losartan Losartan No 1{table QD Losartan Potassium Potassium t} Potassium 100 MG 100 MG 100 MG Triamcinolo Triamcinolo No 1{appli BID Triamcinol ne ne cation_ one Acetonide Acetonide to_affe Acetonide 0.1 % 0.1 % cted_ar 0.1 % ea} Pantoprazol Pantoprazol No 1{table QD Pantoprazo e Sodium 40 e Sodium 40 t} le Sodium MG MG 40 MG Atorvastati Atorvastati No 1{table QD Atorvastat n Calcium n Calcium t_at_be in Calcium 20MG 20MG dtime} 20MG glipiZIDE 5 glipiZIDE 5 No glipiZIDE MG MG 5 MG Pentoxifyll Pentoxifyll No 1{table TID Pentoxifyl ine ER 400 ine ER 400 t_with_ line ER MG MG meals} 400 MG Albuterol Albuterol No Albuterol Sulfate HFA Sulfate HFA Sulfate 108 (90 108 (90 HFA 108 Base) Base) (90 Base) MCG/ACT MCG/ACT MCG/ACT Klor-Con Klor-Con No 1{table BID Klor-Con M10 10 MEQ M10 10 MEQ t_with_ M10 10 MEQ food} Citalopram Citalopram No QD Citalopram Hydrobromid Hydrobromid Hydrobromi e 20 MG e 20 MG de 20 MG hydroCHLORO hydroCHLORO No QD hydroCHLOR thiazide 25 thiazide 25 Othiazide MG MG 25 MG glipiZIDE 5 glipiZIDE 5 No 1{table QD glipiZIDE t} 5 Ketoconazol Ketoconazol No 1{appli BID Ketoconazo e 2 % e 2 % cation_ le 2 % to_affe cted_ar ea} Clopidogrel Clopidogrel No Clopidogre Bisulfate Bisulfate l 75 MG 75 MG Bisulfate 75 MG metFORMIN metFORMIN No 1{table QD metFORMIN HCl 500 MG HCl 500 MG t_with_ HCl 500 MG a_meal} Benzonatate Benzonatate No 1{capsu BID Benzonatat 100 MG 100 MG le_as_n e 100 MG eeded} Metoprolol Metoprolol No Metoprolol Tartrate 50 Tartrate 50 Tartrate MG MG 50 MG Aspir-81 81 Aspir-81 81 No 1{table QD Aspir-81 MG MG t} 81 MG glipiZIDE 5 glipiZIDE 5 No glipiZIDE MG MG 5 MG Pentoxifyll Pentoxifyll No 1{table TID Pentoxifyl ine ER 400 ine ER 400 t_with_ line ER MG MG meals} 400 MG Lasix 20 MG Lasix 20 MG No 1{table QD Lasix 20 t} MG Pantoprazol Pantoprazol No 1{table QD Pantoprazo e Sodium 40 e Sodium 40 t} le Sodium MG MG 40 MG Triamcinolo Triamcinolo No 1{appli BID Triamcinol ne ne cation_ one Acetonide Acetonide to_affe Acetonide 0.1 % 0.1 % cted_ar 0.1 % ea} Albuterol Albuterol No Albuterol Sulfate HFA Sulfate HFA Sulfate 108 (90 108 (90 HFA 108 Base) Base) (90 Base) MCG/ACT MCG/ACT MCG/ACT Atorvastati Atorvastati No 1{table QD Atorvastat n Calcium n Calcium t_at_be in Calcium 20MG 20MG dtime} 20MG Alendronate Alendronate No Alendronat Sodium 70 Sodium 70 e Sodium MG MG 70 MG hydroCHLORO hydroCHLORO No QD hydroCHLOR thiazide 25 thiazide 25 Othiazide MG MG 25 MG Ketoconazol Ketoconazol No 1{appli BID Ketoconazo e 2 % e 2 % cation_ le 2 % to_affe cted_ar ea} Benzonatate Benzonatate 2021- No TID Benzonatat 200 MG 200 MG 10 e 200 MG 00:00 :00 Benzonatate Benzonatate 2021- No TID Benzonatat 200 MG 200 MG 0210 e 200 MG 00:00 :00 Immunizations Ordered Immunization Filled Immunization Date Status Commen ts Source Name Name Pneumococcal 2017-04-02 Completed [facility] 00:00:00 [facility] Pneumococcal 2017-04-02 Completed [facility] 2016-06-09 Completed [facility] 13-valent vaccine 17:59:00 influenza virus 2012-01-15 Completed [facility] vaccine, inactivated 05:53:00 influenza virus 2012-01-15 Completed [facility] vaccine, inactivated 05:53:00 Hx pneumococcal 2011-10-16 Completed [facility] vaccine 04:52:00 Hx pneumococcal 2011-10-16 Com[facility] 04:52:00 Vital Signs Vital Name Observation Time Observation Value Comments Source height 2022-01-13 13:00:00 60 [in_i] Common [facility] weight 2022-01-13 13:00:00 135.8 [lb_av] [facility] temperature 2022-01-13 13:00:00 97.1 [degF] [facility] bmi 2022-01-13 13:00:00 26.52 kg/m2 [facility] oximetry 2022-01-13 13:00:00 95 % [facility] respiratory rate 2022-01-13 13:00:00 16 /min Comm on [facility] blood pressure 2022-01-13 13:00:00 132 mm[Hg] Common [facility] - systolic [facility] blood pressure 2022-01-13 13:00:00 60 mm[Hg] Common [facility] - diastolic [facility] height 2021-12-14 14:00:00 60 [in_i] [facility] weight 2021-12-14 14:00:00 137.0 [lb_av] [facility] temperature 2021-12-14 14:00:00 97.2 [degF] Common [facility] bmi 2021-12-14 14:00:00 26.75 kg/m2 [facility] oximetry 2021-12-14 14:00:00 95 % [facility] respiratory rate 2021-12-14 14:00:00 18 /min Comm on [facility] blood pressure 2021-12-14 14:00:00 136 mm[Hg] Common [facility] - systolic [facility] blood pressure 2021-12-14 14:00:00 88 mm[Hg] [facility] height 2021-10-12 11:00:00 60 [in_i] [facility] weight 2021-10-12 11:00:00 136.6 [lb_av] Common [facility] temperature 2021-10-12 11:00:00 97.4 [degF] [facility] - [facility] bmi 2021-10-12 11:00:00 26.67 kg/m2 Common [facility] oximetry 2021-10-12 11:00:00 95 % [facility] respiratory rate 2021-10-12 11:00:00 18 /min Comm on [facility] blood pressure 2021-10-12 11:00:00 136 mm[Hg] Common [facility] - systolic [facility] blood pressure 2021-10-12 11:00:00 74 mm[Hg] Common [facility] - diastolic [facility] height 2021-07-13 14:20:00 60 [in_i] Common [facility] weight 2021-07-13 14:20:00 136 [lb_av] [facility] temperature 2021-07-13 14:20:00 97.3 [degF] [facility] bmi 2021-07-13 14:20:00 26.56 kg/m2 [facility] oximetry 2021-07-13 14:20:00 96 % [facility] respiratory rate 2021-07-13 14:20:00 17 /min Comm on [facility] blood pressure 2021-07-13 14:20:00 130 mm[Hg] Common [facility] - systolic [facility] blood pressure 2021-07-13 14:20:00 80 mm[Hg] Common [facility] - diastolic [facility] height 2021-05-14 11:20:00 60 [in_i] Common [facility] weight 2021-05-14 11:20:00 143 [lb_av] Common [facility] bmi 2021-05-14 11:20:00 27.92 kg/m2 [facility] oximetry 2021-05-14 11:20:00 94 % [facility] height 2021-04-08 13:00:00 60 [in_i] [facility] weight 2021-04-08 13:00:00 145.0 [lb_av] Common [facility] temperature 2021-04-08 13:00:00 96.4 [degF] [facility] bmi 2021-04-08 13:00:00 28.32 kg/m2 [facility] oximetry 2021-04-08 13:00:00 98 % [facility] respiratory rate 2021-04-08 13:00:00 16 /min Comm on [facility] blood pressure 2021-04-08 13:00:00 132 mm[Hg] [facility] blood pressure 2021-04-08 13:00:00 63 mm[Hg] Common [facility] - diastolic [facility] height 2020-11-13 12:00:00 60 [in_i] [facility] weight 2020-11-13 12:00:00 140 [lb_av] [facility] bmi 2020-11-13 12:00:00 27.34 kg/m2 [facility] Systolic (mm Hg) 2021-02-26 17:29:00 [facility] Diastolic (mm Hg) 2021-02-26 17:29:00 [facility] [place] Heart Rate 2021-02-26 17:29:00 [facility] Respitory Rate 2021-02-26 17:29:00 [facility] Height 2021-02-26 17:29:00 147.32 cm [facility] Weight 2021-02-26 17:29:00 [facility] BMI Calculated 2021-02-26 17:29:00 [facility] [place] Systolic (mm Hg) 2021-01-22 17:15:00 [facility] [place] Diastolic (mm Hg) 2021-01-22 17:15:00 [facility] [place] Heart Rate 2021-01-22 17:15:00 [facility] Respitory Rate 2021-01-22 17:15:00 [facility] [place] Height 2021-01-22 17:15:00 149.86 cm [facility] Weight 2021-01-22 17:15:00 [facility] BMI Calculated 2021-01-22 17:15:00 [facility] Heart Rate 2016-06-14 16:00:00 [facility] Respitory Rate 2016-06-14 16:00:00 [facility] Temperature Oral (F) 2016-06-14 16:00:00 98.4 F [facility] Systolic (mm Hg) 2016-06-14 16:00:00 [facility] [place] Diastolic (mm Hg) 2016-06-14 16:00:00 [facility] Systolic (mm Hg) 2016-06-14 12:00:00 [facility] [place] Diastolic (mm Hg) 2016-06-14 12:00:00 [facility] [place] Respitory Rate 2016-06-14 12:00:00 [facility] [place] Heart Rate 2016-06-14 12:00:00 [facility] Temperature Oral (F) 2016-06-14 12:00:00 98.8 F [facility] [place] Systolic (mm Hg) 2016-06-14 07:48:00 Wilfrid [facility] [place] Diastolic (mm Hg) 2016-06-14 07:48:00 [facility] [place] Respitory Rate 2016-06-14 07:48:00 [facility] [place] Heart Rate 2016-06-14 07:48:00 [facility] [place] Temperature Oral (F) 2016-06-14 07:48:00 98.2 F [facility] Height 2016-06-08 11:57:00 152.4 cm [facility] [place] Weight 2016-06-08 11:57:00 [facility] BMI Calculated 2016-06-08 11:57:00 [facility] [place] Respitory Rate 2016-06-03 23:00:00 [facility] [place] Systolic (mm Hg) 2016-06-03 23:00:00 [facility] [place] Diastolic (mm Hg) 2016-06-03 23:00:00 [facility] [place] Systolic (mm Hg) 2016-06-03 22:00:00 [facility] [place] Diastolic (mm Hg) 2016-06-03 22:00:00 [facility] [place] Systolic (mm Hg) 2016-06-03 21:30:00 [facility] [place] Diastolic (mm Hg) 2016-06-03 21:30:00 [facility] [place] Respitory Rate 2016-06-03 18:00:00 [facility] [place] Respitory Rate 2016-06-03 17:45:00 [facility] [place] Temperature Oral (F) 2016-05-26 13:36:00 98.4 F [facility] Heart Rate 2016-05-26 13:36:00 [facility] [place] Weight 2016-05-26 13:27:00 [facility] BMI Calculated 2016-05-26 13:27:00 [facility] [place] Height 2016-05-26 13:27:00 152.4 cm [facility] Systolic (mm Hg) 2012-04-26 19:50:00 [facility] [place] Diastolic (mm Hg) 2012-04-26 19:50:00 [facility] [place] Systolic (mm Hg) 2012-04-26 17:15:00 [facility] [place] Diastolic (mm Hg) 2012-04-26 17:15:00 [facility] [place] Temperature Oral (F) 2012-04-26 17:00:00 97.1 F [facility] [place] Diastolic (mm Hg) 2012-04-26 17:00:00 [facility] [place] Systolic (mm Hg) 2012-04-26 17:00:00 [facility] [place] Respitory Rate 2012-04-26 17:00:00 [facility] [place] Heart Rate 2012-04-26 17:00:00 [facility] Respitory Rate 2012-04-26 13:00:00 [facility] [place] Heart Rate 2012-04-26 13:00:00 [facility] [place] Temperature Oral (F) 2012-04-26 13:00:00 97.9 F [facility] [place] Respitory Rate 2012-04-26 09:16:00 [facility] Heart Rate 2012-04-26 09:16:00 [facility] (F) 2012-04-26 09:16:00 98.3 F [facility] Weight 2012-04-20 05:54:00 [facility] Height 2012-04-19 01:59:00 152.4 cm [facility] Weight 2012-04-19 01:59:00 [facility] Procedures Procedure Date / Time Performed Performing Clinician Anurag pendleton Placement of stent in [facility] ermann cardiac conduit Carotid [facility] Bypass<sup>1</sup> [facility] shannan Bypass [facility] Plan of Care Planned Activity Planned Date Details Comments Source Future Scheduled 2022-01-28 COVID-19 VACCINE (#1) [facility] Test 04:00:32 [code = COVID-19 VACCINE (#1)] Future Scheduled 2022-01-28 SHINGLES VACCINES (1 [facility] Test 04:00:32 of 2) [code = SHINGLES VACCINES (1 of 2)] Future Scheduled 2022-01-28 65+ [facility]OCOCCAL [facility] Test 04:00:32 VACCINE (2 - PPSV23 if available, else PCV20) [code = 65+ PNEUMOCOCCAL VACCINE (2 - PPSV23 if available, else PCV20)] Future Scheduled 2022-01-28 INFLUENZA VACCINE [facility] Test 04:00:32 [code = INFLUENZA VACCINE] Future Scheduled COVID-19 VACCINE (1) [facility] Test [code = COVID-19 VACCINE (1)] Future Scheduled SHINGLES VACCINES (#1) [facility] Test [code = SHINGLES VACCINES (#1)] Future Scheduled 65+ PNEUMOCOCCAL [facility] Test VACCINE (2 of 2 - PPSV23) [code = 65+ PNEUMOCOCCAL VACCINE (2 of 2 - PPSV23)] Future Scheduled INFLUENZA VACCINE [facility] Test [code = INFLUENZA VACCINE] Encounters Start End Encounter Admission Attending Care Care Encounter Source Date/Time Date/Time Type Type Clinicians Facility Department ID 2022-03-12 Preadmit nullFlavo [id number] [facility] 11:54:50 [facility] [place] 02 [place] 2022-01-13 Outpatient [place] Tripp [facility] [id number] 2 Common 07:29:00 [id number] [facility] 2022-01-12 Outpatient Tripp, Na STLMLC STLMLC [id number] 2 Common 11:23:00 [facility] 2021-10-12 Outpatient Tripp, Na STLMLC STLMLC [id number] 2 Common 10:47:00 [facility] 2021-10-08 Outpatient Tripp, Na STLMLC STLMLC [id number] 2 Common 08:48:00 [facility] 2021-08-31 Outpatient Tripp, Na STLMLC STLMLC [id number] 2 Common 12:15:00 [facility] 2021-07-08 Outpatient Tripp, Na STLMLC STLMLC [id number] 2 Common 11:27:00 [facility] 2021-05-14 Outpatient Tripp, Na STLMLC STLMLC [id number] Common 11:14:01 [facility] 2021-05-13 Outpatient Tripp, Na STLMLC STLMLC [id number] 2 Common 14:39:01 [facility] 2021-03-15 Outpatient Tripp, Na STLMLC STLMLC [id number] 2 Common 15:34:00 [facility] 2021-03-10 Outpatient Tripp, Na STLMLC STLMLC [id number] 2 Common 14:17:28 [id number] [facility] 2021-03-10 Outpatient Tripp, Na STLMLC STLMLC [id number] 2 Common 13:55:49 [facility] 2021-03-10 Outpatient Tripp, Na STLMLC STLMLC [id number] 2 Common 12:47:02 [facility] 2021-03-10 Outpatient Tripp, Na STLMLC STLMLC [id number] 2 Common 12:35:11 [id number] [facility] 2021-03-10 Outpatient Tripp, Na STLMLC STLMLC [id number] 2 Common 12:34:42 [id number] [facility] 2021-03-10 Outpatient Tripp, Na STLMLC STLMLC [id number] 2 Common 12:22:40 [id number] [facility] 2021-03-10 Outpatient Tripp, Na STLMLC STLMLC [id number] 2 Common 12:22:00 [id number] [facility] 2021-03-10 Outpatient Tripp, Na STLMLC STLMLC [id number] 2 Common 12:19:24 [id number] [facility] 2021-03-10 Outpatient Tripp, Na STLMLC STLMLC [id number] 2 Common 11:48:00 [id number] [facility] 2021-03-10 Outpatient Tripp, Na STLMLC STLMLC [id number] 2 Common 11:18:51 [id number] [facility] 2021-03-10 Outpatient Tripp, Na STLMLC STLMLC [id number] 2 Common 11:18:34 [id number] [facility] 2021-03-10 Outpatient Tripp, Na STLMLC STLMLC [id number] 2 Common 11:16:12 [id number] [facility] 2021-03-10 Outpatient Tripp, Na STLMLC STLMLC [id number] 2 Common 11:09:52 [id number] [facility] 2021-03-10 Outpatient Tripp, Na STLMLC STLMLC [id number] 2 Common 11:09:27 [id number] [facility] 2021-03-10 Outpatient Tripp, Na STLMLC STLMLC [id number] 2 Common 11:08:21 [id number] [facility] 2021-03-10 Outpatient Tripp, Na STLMLC STLMLC [id number] 2 Common 11:03:44 [id number] [facility] 2021-03-10 Outpatient Tripp, Na STLMLC STLMLC [id number] 2 Common 11:02:04 [id number] [facility] 2021-03-10 Outpatient Tripp, Na STLMLC STLMLC [id number] 2 Common 11:01:47 [id number] [facility] 2022-02-11 2022-02-11 (TEL) STLMLC STLMLC [id number] Co mmon 00:00:00 00:00:00 [facility] 2022-02-01 2022-02-01 (TEL) STLMLC STLMLC [id number] Co mmon 00:00:00 00:00:00 [facility] 2022-01-31 2022-01-31 (TEL) STLMLC STLMLC [id number] Co mmon 00:00:00 00:00:00 [facility] 2022-01-13 2022-01-13 OFFICE STLMLC STLMLC [id number] Co mmon 00:00:00 00:00:00 VISIT [facility] PT - CHI LEVEL 4 [facility] 2021-12-15 2021-12-15 (TEL) STLMLC STLMLC [id number] Co mmon 00:00:00 00:00:00 [facility] 2021-12-14 2021-12-14 OFFICE STLMLC STLMLC [id number] Co mmon 00:00:00 00:00:00 VISIT EST Spir it PT LEVEL 3 [facility] 2021-12-10 2021-12-10 (TEL) STLMLC STLMLC [id number] Co mmon 00:00:00 00:00:00 [facility] 2021-11-08 2021-11-08 (TEL) STLMLC STLMLC [id number] Co mmon 00:00:00 00:00:00 [facility] 2021-10-14 2021-10-14 (TEL) STLMLC STLMLC [id number] Co mmon 00:00:00 00:00:00 [facility] 2021-10-12 2021-10-12 OFFICE STLMLC STLMLC [id number] Co mmon 00:00:00 00:00:00 VISIT [facility] PT - CHI LEVEL 4 [facility] 2021-09-29 2021-09-29 (TEL) STLMLC STLMLC [id number] Co mmon 00:00:00 00:00:00 [facility] 2021-08-06 2021-08-06 (TEL) STLMLC STLMLC [id number] Co mmon 00:00:00 00:00:00 [facility] 2021-07-30 2021-07-30 (TEL) STLMLC STLMLC [id number] Co mmon 00:00:00 00:00:00 [facility] 2021-07-13 2021-07-13 OFFICE STLMLC STLMLC [id number] Co mmon 00:00:00 00:00:00 VISIT [facility] PT - CHI LEVEL 4 [facility] 2021-05-14 2021-05-14 OFFICE STLMLC STLMLC [id number] Co mmon 00:00:00 00:00:00 VISIT EST Spir it PT LEVEL 3 [facility] 2021-05-13 2021-05-13 (TEL) STLMLC STLMLC [id number] Co mmon 00:00:00 00:00:00 [facility] 2021-04-27 2021-04-27 Ambulatory nullFlavo MNA [id number] [facility] 16:30:00 16:30:00 Pre-Reg r Neurology 02 mike Mathew White 2021-04-27 2021-04-27 Outpatient MHIE MHIE [id number] [facility] 11:30:00 11:30:00 02 mike White 2021-04-27 2021-04-27 Outpatient SOURAV JoseMISCHER [id number] 11:30:00 11:30:00 Giuseppe Ochoa 2021-04-09 2021-04-09 (TEL) STLMLC STLMLC [id number] Co mmon 00:00:00 00:00:00 [facility] 2021-04-08 2021-04-08 OFFICE STLMLC STLMLC [id number] Co mmon 00:00:00 00:00:00 VISIT [facility] PT - CHI LEVEL 4 [facility] 2021-03-04 2021-03-04 (TEL) STLMLC STLMLC [id number] Co mmon 00:00:00 00:00:00 [facility] 2021-02-26 2021-02-27 Outpatient nullFlavo MNA [id number] [facility] 17:30:00 05:59:59 r Neurology 01 mike White 2021-02-26 2021-02-26 Outpatient Rebeca, MHMISCHER MHMISCHER [id number] 11:30:00 23:59:59 Giuseppe Don 2021-02-26 2021-02-26 Outpatient MHIE MHIE [id number] [facility] 11:30:00 11:30:00 01 mike White 2021-02-23 2021-02-23 (TEL) STLMLC STLMLC [id number] Co mmon 00:00:00 00:00:00 [facility] 2021-02-03 2021-02-03 (TEL) STLMLC STLMLC [id number] Co mmon 00:00:00 00:00:00 [facility] 2021-01-22 2021-01-23 Outpatient nullFlavo MNA [id number] [facility] 17:30:00 05:59:59 r Neurology 00 mike Leosann 2021-01-22 2021-01-22 Outpatient Rebeca, PRAVEENMISCHER MHMISCHER [id number] 11:30:00 23:59:59 Giuseppe Don 2021-01-22 2021-01-22 Outpatient MHIE MHIE [id number] [facility] 11:30:00 11:30:00 00 mike White 2021-01-22 2021-01-22 (TEL) STLMLC STLMLC [id number] Co mmon 00:00:00 00:00:00 [facility] 2021-01-15 2021-01-15 (TEL) STLMLC STLMLC [id number] Co mmon 00:00:00 00:00:00 [facility] 2021-01-13 2021-01-13 (TEL) STLMLC STLMLC [id number] Co mmon 00:00:00 00:00:00 [facility] 2021-01-05 2021-01-05 OL DIG E/M STLMLC STLMLC [id number] Common 00:00:00 00:00:00 SVC 21+ [facility] 2021-01-04 2021-01-04 (TEL) STLMLC STLMLC [id number] Co mmon 00:00:00 00:00:00 [facility] 2020-12-22 2020-12-22 (TEL) STLMLC STLMLC [id number] Co mmon 00:00:00 00:00:00 [facility] 2020-12-15 2020-12-15 (TEL) STLMLC STLMLC [id number] Co mmon 00:00:00 00:00:00 [facility] 2020-12-10 2020-12-10 (TEL) STLMLC STLMLC [id number] Co mmon 00:00:00 00:00:00 [facility] 2020-12-08 2020-12-08 (TEL) STLMLC STLMLC [id number] Co mmon 00:00:00 00:00:00 [facility] 2020-12-07 2020-12-07 (TEL) STLMLC STLMLC [id number] Co mmon 00:00:00 00:00:00 [facility] 2020-11-27 2020-11-27 (TEL) STLMLC STLMLC [id number] Co mmon 00:00:00 00:00:00 [facility] 2020-11-13 2020-11-13 OFFICE STLMLC STLMLC [id number] Co mmon 00:00:00 00:00:00 VISIT EST Spir it PT LEVEL 3 [facility] 2020-10-26 2020-10-26 (TEL) STLMLC STLMLC [id number] Co mmon 00:00:00 00:00:00 [facility] 2020-10-23 2020-10-23 Outpatient STLMLC STLMLC [id number] Common 00:00:00 00:00:00 [facility] 2020-10-08 2020-10-08 Outpatient STLMLC STLMLC [id number] Common 00:00:00 00:00:00 [facility] 2020-10-08 2020-10-08 Outpatient STLMLC STLMLC [id number] Common 00:00:00 00:00:00 [facility] 2020-09-23 2020-09-23 Outpatient STLMLC STLMLC [id number] Common 00:00:00 00:00:00 [facility] 2020-09-16 2020-09-16 Outpatient STLMLC STLMLC [id number] Common 00:00:00 00:00:00 [facility] 2020-07-24 2020-07-24 Outpatient STLMLC STLMLC [id number] Common 00:00:00 00:00:00 [facility] 2020-06-22 2020-06-22 Outpatient STLMLC STLMLC [id number] Common 00:00:00 00:00:00 [facility] 2020-05-28 2020-05-28 Outpatient STLMLC STLMLC [id number] Common 00:00:00 00:00:00 [facility] 2020-05-25 2020-05-25 Outpatient STLMLC STLMLC [id number] Common 00:00:00 00:00:00 [facility] 2020-05-15 2020-05-15 Outpatient STLMLC STLMLC [id number] Common 00:00:00 00:00:00 [facility] 2020-05-15 2020-05-15 Outpatient STLMLC STLMLC [id number] Common 00:00:00 00:00:00 [facility] 2020-05-01 2020-05-01 Outpatient STLMLC STLMLC [id number] Common 00:00:00 00:00:00 [facility] 2020-04-13 2020-04-13 Outpatient STLMLC STLMLC [id number] Common 00:00:00 00:00:00 [facility] 2020-04-07 2020-04-07 Outpatient STLMLC STLMLC [id number] Common 00:00:00 00:00:00 [facility] 2020-03-13 2020-03-13 Outpatient STLMLC STLMLC [id number] Common 00:00:00 00:00:00 [facility] 2020-03-05 2020-03-05 Outpatient STLMLC STLMLC [id number] Common 00:00:00 00:00:00 [facility] 2020-03-05 2020-03-05 Outpatient STLMLC STLMLC [id number] Common 00:00:00 00:00:00 [facility] 2020-02-28 2020-02-28 Outpatient STLMLC STLMLC [id number] Common 00:00:00 00:00:00 [facility] 2020-02-28 2020-02-28 Outpatient STLMLC STLMLC [id number] Common 00:00:00 00:00:00 [facility] 2020-02-27 2020-02-27 Outpatient STLMLC STLMLC [id number] Common 00:00:00 00:00:00 [facility] 2020-02-20 2020-02-20 Outpatient STLMLC STLMLC [id number] Common 00:00:00 00:00:00 [facility] 2019-11-06 2019-11-06 Outpatient STLMLC STLMLC [id number] Common 00:00:00 00:00:00 [facility] 2019-08-28 2019-08-28 [facility] [id number] Common 09:42:00 09:42:[address] [facility] [address] [facility] 2019-08-05 2019-08-05 [facility] [id number] Common 11:00:00 11:00:[address] [facility] 2019-07-29 2019-07-29 [facility] [id number] Common 11:43:00 11:43:[address] [facility] 2019-06-17 2019-06-17 [facility] [id number] Common 10:40:00 10:40:[address] [facility] [address] [facility] 2019-06-12 2019-06-12 [facility] [id number] Common 13:20:00 13:20:[address] [facility] [facility] 2019-06-11 2019-06-11 [facility] [id number] Common 10:41:00 10:41:[address] [facility] 2019-06-05 2019-06-05 [facility] [id number] Common 09:20:00 09:20:[address] [facility] 2019-06-03 2019-06-03 [facility] [id number] Common 09:27:00 09:27:[address] [facility] 2019-04-09 2019-04-09 [facility] [id number] Common 08:20:00 08:20:[address] [facility] 2019-04-02 2019-04-02 [facility] [id number] Common 07:56:00 07:56:[address] [facility] 2019-03-12 2019-03-12 [facility] [id number] Common 10:53:00 10:53:[address] [facility] 2019-03-04 2019-03-04 [facility] [id number] Common 15:25:00 15:25:00 t Specialty/U Sp sherly Specialty rology - [facility] /Urology Clinic [facility] 2019-03-04 2019-03-04 [facility] [id number] Common 11:34:00 11:34:[address] [facility] 2019-02-01 2019-02-01 [facility] [id number] Common 14:51:00 14:51:[address] [facility] 2019-01-07 2019-01-07 [facility] [id number] Common 14:40:00 14:40:[address] [facility] 2018-12-18 2018-12-18 [facility] [id number] Common 11:11:00 11:11:00 [facility] Clinic [facility] 2018-11-30 2018-11-30 [facility] [id number] Common 10:10:00 10:10:[address] [facility] 2018-10-14 2018-10-14 [facility] [id number] Common 20:24:00 20:24:[address] [facility] 2018-10-08 2018-10-08 [facility] [id number] Common 13:20:00 13:20:[address] [facility] 2018-09-17 2018-09-17 [facility] [id number] Common 12:25:00 12:25:[address] [facility] 2018-09-06 2018-09-06 [facility] [id number] Common 14:00:00 14:00:[address] [facility] 2018-06-07 2018-06-07 [facility] [id number] Common 09:40:00 09:40:[address] [facility] 2018-05-04 2018-05-04 [facility] [id number] Common 16:39:00 16:39:[address] [facility] 2018-04-11 2018-04-11 [facility] [id number] Common 11:39:00 11:39:[address] [facility] 2018-03-14 2018-03-14 [facility] [id number] Common 11:56:00 11:56:[address] [facility] 2018-03-09 2018-03-09 [facility] [id number] Common 14:57:00 14:57:[address] [facility] 2018-03-05 2018-03-05 [facility] [id number] Common 09:30:00 09:30:[address] [facility] 2018-01-08 2018-01-08 [facility] [id number] Common 10:15:00 10:15:[address] [facility] 2017-10-11 2017-10-11 [facility] [id number] Common 15:45:00 15:45:[address] [facility] 2017-08-21 2017-08-21 [facility] [id number] Common 15:00:00 15:00:[address] [facility] 2017-06-20 2017-06-20 [facility] [id number] Common 16:33:00 16:33:[address] [facility] - [facility] 2017-06-15 2017-06-15 [facility] [id number] Common 10:42:00 10:42:[address] [facility] 2017-06-02 2017-06-02 [facility] [id number] Common 12:11:00 12:11:[address] [facility] 2017-05-23 2017-05-23 [facility] [id number] Common 20:14:00 20:14:[address] [facility] 2017-05-22 2017-05-22 Outpatient Maria Ines Spannt 13 [id number] Common 14:00:00 14:00:00 t Naehas Spir it ADOP [facility] 2016-06-08 2016-06-14 Inpatient [facility] [id number] [facility] 14:04:00 18:19:00 r Christopher 05 [facility] 2016-06-08 2016-06-14 Outpatient Marcin [facility] [id number] 09:04:00 13:19:00 Luis Galindo [place] 2016-06-03 2016-06-03 Day [facility]Fl[facility] [id number] Memoria 13:42:00 23:11:00 Surgery r Christopher 04 l [facility] 2016-06-03 2016-06-03 [facility] [id number] 08:42:00 18:11:00 Luis Luciana [place] 2012-04-19 2012-04-26 Inpatient nullFlavo [id number] [facility]oria 00:12:00 15:30:00 r Toni 01 mike White 2012-04-18 2012-04-18 Outpatient nullFlavo [id number] [facility] 13:01:00 13:01:00 r Toni 00 mike White Results Test Description Test Time Test Comments Results Result Comments Source CHEM PANEL 2016-06-13 11:25:00 Test Item Value Reference Range Interpretation Comme nts eGFR (test code = eGFR) 86 [facility] [id number] 11:25:00 Test Item Value Reference Range Interpretation Comments Calcium Lvl (test code = Calcium Lvl) 8.9 8.5-10.5 [facility] [id number] 11:25:00 Test Item Value Reference Range Interpretation Comments Total Protein (test code = Total 6.2 6.4-8.4 Protein) [facility] [id number] 11:25:00 Test Item Value Reference Range Interpretation Comments Bili Total (test code = Bili Total) 0.5 0.2-1.3 [facility] [id number] 11:25:00 Test Item Value Reference Range Interpretation Comments CO2 (test code = CO2) 30 24-32 [facility] [id number] 11:25:00 Test Item Value Reference Range Interpretation Comments ALT (test code = ALT) 18 See_Comment [Auto mated message] The system which ge nerated this result transmit norris reference range : <=65. The reference range was not used to interpr et this result as darshana l/abnormal. [facility]2017-05-01 11:25:00 Test Item Value Reference Range Interpretation Comments Albumin Lvl (test code = Albumin Lvl) 2.9 3.5-5.0 [facility]2017-05-01 11:25:00 Test Item Value Reference Range Interpretation Comments AST (test code = AST) 15 See_Comment [Auto mated message] The system which ge nerated this result transmit norris reference range : <=37. The reference range was not used to interpr et this result as darshana l/abnormal. [facility]2017-05-01 11:25:00 Test Item Value Reference Range Interpretation Comments Alk Phos (test code = Alk Phos) 71 39-136 [facility]2017-05-01 11:25:00 Test Item Value Reference Range Interpretation Comments Chloride Lvl (test code = Chloride Lvl) 100 95-109 [facility]2017-05-01 11:25:00 Test Item Value Reference Range Interpretation Comments Sodium Lvl (test code = Sodium Lvl) 140 135-145 [facility]2017-05-01 11:25:00 Test Item Value Reference Range Interpretation Comments Creatinine Lvl (test code = Creatinine 0.64 0.50-1.40 Lvl) [facility]2017-05-01 11:25:00 Test Item Value Reference Range Interpretation Comments BUN (test code = BUN) 23 7-22 [facility]2017-05-01 11:25:00 Test Item Value Reference Range Interpretation Comments Potassium Lvl (test code = Potassium 3.5 3.5-5.1 Lvl) [facility]2017-05-01 11:25:00 Test Item Value Reference Range Interpretation Comments Glucose Lvl (test code = Glucose Lvl) 134 70-99 [facility]2017-05-01 11:25:00 Test Item Value Reference Range Interpretation Comments A/G Ratio (test code = A/G Ratio) 0.9 0.7-1.6 [place] [id number] 11:25:00 Test Item Value Reference Range Interpretation Comments Globulin (test code = Globulin) 3.3 2.7-4.2 [facility]2017-05-01 11:25:00 Test Item Value Reference Range Interpretation Comments B/C Ratio (test code = B/C Ratio) 36 6-25 [facility]2017-05-01 11:25:00 Test Item Value Reference Range Interpretation Comments AGAP (test code = AGAP) 13.5 10.0-20.0 [id number] 11:25:00 Test Item Value Reference Range Interpretation Comments MCHC (test code = MCHC) 34.1 32.0-36.0 [id number] 11:25:00 Test Item Value Reference Range Interpretation Comments MPV (test code = MPV) 9.4 7.4-10.4 [id number] 11:25:00 Test Item Value Reference Range Interpretation Comments RDW (test code = RDW) 17.1 11.5-14.5 [facility] CenterCeincymTQGETRAVLS0517-87-56 11:25:00 Test Item Value Reference Range Interpretation Comments MCH (test code = MCH) 26.8 pg 27.0-31.0 [facility] CenterPalarhuYODKVSAXOY0133-72-46 11:25:00 Test Item Value Reference Range Interpretation Comments Platelet (test code = Platelet) 198 133-450 [facility] CenterTmuuvwxOXHFMKKXKS7690-21-49 11:25:00 Test Item Value Reference Range Interpretation Comments WBC (test code = WBC) 9.9 3.7-10.4 [facility] CenterArxjnrfMWSKRHPCIT2282-95-81 11:25:00 Test Item Value Reference Range Interpretation Comments Hgb (test code = Hgb) 8.2 12.0-16.0 [facility] CenterXlvqdltJNRPFVNROR1238-96-77 11:25:00 Test Item Value Reference Range Interpretation Comments RBC (test code = RBC) 3.05 4.20-5.40 [facility] CenterFiuxinwDKIPFABOFF6751-50-38 11:25:00 Test Item Value Reference Range Interpretation Comments MCV (test code = MCV) 78.5 80.0-98.0 [facility] CenterPelkocnLNYUXJEKGS1630-66-32 11:25:00 Test Item Value Reference Range Interpretation Comments Hct (test code = Hct) 23.9 36.0-48.0 [facility] CenterUuxitooDLMFEGEDHR6238-70-55 11:25:00 Test Item Value Reference Range Interpretation Comments Microcyte (test code = 1+ *ABN*(06/13/16 6:25 Microcyte) AM) [facility] CenterLchuqnmVYQGBBXEFC6252-82-73 11:25:00 Test Item Value Reference Range Interpretation Comments Basophils # (test code 0.1 See_Comment [Aut omated message] The = Basophils #) system which generated this result tra nsmitted reference range : <=0.2. The reference r lina was not used to int erpret this result as normal/abnormal . [facility] CenterGtjjaunHLSSCISGYA3872-96-09 11:25:00 Test Item Value Reference Range Interpretation Comments Eosinophils # (test code 0.2 See_Comment [A utomated message] The = Eosinophils #) system whic h generated this result tra nsmitted reference range : <=0.5. The reference r lina was not used to int erpret this result as normal/abnormal . [facility] CenterLaabkriSHIFVFUIIW9391-23-84 11:25:00 Test Item Value Reference Range Interpretation Comments Monocytes # (test code 0.7 See_Comment [Aut omated message] The = Monocytes #) system which generated this result tra nsmitted reference range : <=0.8. The reference r lina was not used to int erpret this result as normal/abnormal . [facility] CenterKzdchrxGQATWSPUUZ1134-11-11 11:25:00 Test Item Value Reference Range Interpretation Comments Lymphocytes (test code = Lymphocytes) 17.6 20.0-40.0 [facility] CenterVkaaptzRRUWBJDSYA9371-29-56 11:25:00 Test Item Value Reference Range Interpretation Comments Segs (test code = Segs) 73.1 45.0-75.0 [facility] CenterMahkjtzLAKIEUQMAW9582-50-88 11:25:00 Test Item Value Reference Range Interpretation Comments Basophils (test code = 0.5 See_Comment [Aut omated message] The Basophils) system which ge nerated this result tra nsmitted reference range : <=1.0. The reference r ilna was not used to int erpret this result as normal/abnormal . [facility] CenterByzjfsrSZPSVGWXTW1840-79-74 11:25:00 Test Item Value Reference Range Interpretation Comments Eosinophils (test code = 2.2 See_Comment [A utomated message] The Eosinophils) system which ge nerated this result tra nsmitted reference range : <=4.0. The reference r lina was not used to int erpret this result as normal/abnormal . [facility] CenterVnmppxtMRWCNYXBUI7207-06-01 11:25:00 Test Item Value Reference Range Interpretation Comments Monocytes (test code = Monocytes) 6.6 2.0-12.0 [facility] CenterDuedeqcCBWYZTOZNN1621-22-81 11:25:00 Test Item Value Reference Range Interpretation Comments Lymphocytes # (test code = Lymphocytes 1.7 1.0-5.5 #) [facility] CenterHkygscuVUKLBZNZOV2034-33-27 11:25:00 Test Item Value Reference Range Interpretation Comments Segs-Bands # (test code = Segs-Bands #) 7.2 1.5-8.1 [facility] CenterOqjiniuBTSUMSFFBF3125-50-46 02:08:00 Test Item Value Reference Range Interpretation Comments Hgb (test code = Hgb) 8.0 12.0-16.0 [facility] CenterTlruarbMIJUSDLJYD1215-74-57 02:08:00 Test Item Value Reference Range Interpretation Comments Hct (test code = Hct) 24.0 36.0-48.0 [facility] [id number] 11:30:00 Test Item Value Reference Range Interpretation Comments RBC product (test code Product available = RBC product) 1(06/10/16 6:30 AM) [facility] [id number] 09:06:00 Test Item Value Reference Range Interpretation Comments eGFR (test code = eGFR) 85 [facility] [id number] 09:06:00 Test Item Value Reference Range Interpretation Comments Creatinine Lvl (test code = Creatinine 0.66 0.50-1.40 Lvl) [facility] [id number] 09:06:00 Test Item Value Reference Range Interpretation Comments Potassium Lvl (test code = Potassium 3.9 3.5-5.1 Lvl) [facility]2017-04-28 09:06:00 Test Item Value Reference Range Interpretation Comments Sodium Lvl (test code = Sodium Lvl) 143 135-145 [facility] [id number] 09:06:00 Test Item Value Reference Range Interpretation Comments Chloride Lvl (test code = Chloride Lvl) 109 95-109 [facility]2017-04-28 09:06:00 Test Item Value Reference Range Interpretation Comments CO2 (test code = CO2) 25 24-32 [facility]2017-04-28 09:06:00 Test Item Value Reference Range Interpretation Comments AGAP (test code = AGAP) 12.9 10.0-20.0 [facility]2017-04-28 09:06:00 Test Item Value Reference Range Interpretation Comments Calcium Lvl (test code = Calcium Lvl) 7.9 8.5-10.5 [facility]2017-04-28 09:06:00 Test Item Value Reference Range Interpretation Comments Glucose Lvl (test code = Glucose Lvl) 143 70-99 [facility]2017-04-28 09:06:00 Test Item Value Reference Range Interpretation Comments BUN (test code = BUN) 19 7-22 [facility]2017-04-28 09:06:00 Test Item Value Reference Range Interpretation Comments Magnesium Lvl (test code = Magnesium 2.1 1.8-2.4 Lvl) [facility]2017-04-28 09:06:00 Test Item Value Reference Range Interpretation Comments Phosphorus (test code = Phosphorus) 2.8 2.5-4.5 [facility] CenterXonqoplXURYVECDXZ2334-41-72 09:06:00 Test Item Value Reference Range Interpretation Comments Hgb (test code = Hgb) 7.3 12.0-16.0 [facility] CenterPobxuceUPNNRKYVIP6168-34-08 09:06:00 Test Item Value Reference Range Interpretation Comments RBC (test code = RBC) 2.77 4.20-5.40 [facility] CenterKevmtvoRAQHMKIXYF6162-19-86 09:06:00 Test Item Value Reference Range Interpretation Comments WBC (test code = WBC) 8.1 3.7-10.4 [facility] CenterDkupwkpTYKKHUAZJI0346-24-07 09:06:00 Test Item Value Reference Range Interpretation Comments MPV (test code = MPV) 9.8 7.4-10.4 [facility] CenterJvgjhtaPMUKTITUAY5813-42-19 09:06:00 Test Item Value Reference Range Interpretation Comments Platelet (test code = Platelet) 138 133-450 [facility] CenterIbjkbmgTVACKWFOEJ4114-83-02 09:06:00 Test Item Value Reference Range Interpretation Comments MCV (test code = MCV) 78.7 80.0-98.0 [facility] CenterCqtsdqrXZMLIZPLTC5456-32-84 09:06:00 Test Item Value Reference Range Interpretation Comments RDW (test code = RDW) 16.6 11.5-14.5 [facility] CenterPaikvpcVXGSJULUAU1282-14-63 09:06:00 Test Item Value Reference Range Interpretation Comments MCHC (test code = MCHC) 33.4 32.0-36.0 [facility] CenterPbzyucyOPVRMMSMMI9739-61-05 09:06:00 Test Item Value Reference Range Interpretation Comments Hct (test code = Hct) 21.8 36.0-48.0 [facility] CenterZgoujyzKTCUSPEHOT2656-40-97 09:06:00 Test Item Value Reference Range Interpretation Comments MCH (test code = MCH) 26.3 pg 27.0-31.0 [facility] CenterPhlhasbJCWWYPNHAP5918-84-18 09:06:00 Test Item Value Reference Range Interpretation Comments Microcyte (test code = 1+ *ABN*(06/10/16 Microcyte) 4:06 AM) [facility] CenterIbisjzvUUPZRWBAPX5488-98-63 09:06:00 Test Item Value Reference Range Interpretation Comments Segs-Bands # (test code = Segs-Bands #) 5.6 1.5-8.1 [facility] CenterKxfozwtXCPRKGCLSL7320-69-35 09:06:00 Test Item Value Reference Range Interpretation Comments Eosinophils # (test code 0.1 See_Comment [A utomated message] The = Eosinophils #) system whic h generated this result tra nsmitted reference range : <=0.5. The reference r lina was not used to int erpret this result as normal/abnormal . [facility] CenterArspaofXCBYZDCVTW2876-99-89 09:06:00 Test Item Value Reference Range Interpretation Comments Monocytes # (test code 0.5 See_Comment [Aut omated message] The = Monocytes #) system which generated this result tra nsmitted reference range : <=0.8. The reference r lina was not used to int erpret this result as normal/abnormal . [facility] CenterGwdjidpTDDZIFTJFZ5303-95-51 09:06:00 Test Item Value Reference Range Interpretation Comments Basophils (test code = 0.3 See_Comment [Aut omated message] The Basophils) system which ge nerated this result tra nsmitted reference range : <=1.0. The reference r lina was not used to int erpret this result as normal/abnormal . [facility] CenterWtyyegjTIVLANOMTD4385-04-77 09:06:00 Test Item Value Reference Range Interpretation Comments Lymphocytes # (test code = Lymphocytes 1.9 1.0-5.5 #) [facility] CenterEidilscIQMIVKTCXC1138-89-64 09:06:00 Test Item Value Reference Range Interpretation Comments Eosinophils (test code = 0.9 See_Comment [A utomated message] The Eosinophils) system which ge nerated this result tra nsmitted reference range : <=4.0. The reference r lina was not used to int erpret this result as normal/abnormal . [facility] CenterTvzpkflAPWDKKWHPI7013-05-34 09:06:00 Test Item Value Reference Range Interpretation Comments Monocytes (test code = Monocytes) 6.5 2.0-12.0 [facility] CenterXmwduymLXOABJBUOI9413-32-87 09:06:00 Test Item Value Reference Range Interpretation Comments Lymphocytes (test code = Lymphocytes) 23.3 20.0-40.0 [facility] CenterBigfjblECTQHMQFCQ4292-82-92 09:06:00 Test Item Value Reference Range Interpretation Comments Segs (test code = Segs) 69.0 45.0-75.0 [facility]2017-04-27 09:37:00 Test Item Value Reference Range Interpretation Comments eGFR (test code = eGFR) 84 [facility]2017-04-27 09:37:00 Test Item Value Reference Range Interpretation Comments Creatinine Lvl (test code = Creatinine 0.70 0.50-1.40 Lvl) [facility]2017-04-27 09:37:00 Test Item Value Reference Range Interpretation Comments Potassium Lvl (test code = Potassium 3.8 3.5-5.1 Lvl) [facility]2017-04-27 09:37:00 Test Item Value Reference Range Interpretation Comments Sodium Lvl (test code = Sodium Lvl) 140 135-145 [facility]2017-04-27 09:37:00 Test Item Value Reference Range Interpretation Comments Glucose Lvl (test code = Glucose Lvl) 215 70-99 [facility]2017-04-27 09:37:00 Test Item Value Reference Range Interpretation Comments BUN (test code = BUN) 20 7-22 [facility]2017-04-27 09:37:00 Test Item Value Reference Range Interpretation Comments Calcium Lvl (test code = Calcium Lvl) 7.6 8.5-10.5 [facility]2017-04-27 09:37:00 Test Item Value Reference Range Interpretation Comments Chloride Lvl (test code = Chloride Lvl) 105 95-109 [facility]2017-04-27 09:37:00 Test Item Value Reference Range Interpretation Comments AGAP (test code = AGAP) 10.8 10.0-20.0 [facility]2017-04-27 09:37:00 Test Item Value Reference Range Interpretation Comments CO2 (test code = CO2) 28 24-32 [facility] CenterXydjxndVJJTODBPCK0651-47-74 09:37:00 Test Item Value Reference Range Interpretation Comments RBC (test code = RBC) 3.07 4.20-5.40 [facility] CenterGkfryqjUWOBNFDJZB9368-92-07 09:37:00 Test Item Value Reference Range Interpretation Comments MCV (test code = MCV) 77.3 80.0-98.0 [facility] CenterBhxaadtIOLOAZUVTW1346-51-44 09:37:00 Test Item Value Reference Range Interpretation Comments WBC (test code = WBC) 9.5 3.7-10.4 [facility] CenterCzynjvpJVBCRLYZJF4779-11-76 09:37:00 Test Item Value Reference Range Interpretation Comments MCHC (test code = MCHC) 33.5 32.0-36.0 [facility] CenterKveaawaLIPCIRZNCT3444-68-00 09:37:00 Test Item Value Reference Range Interpretation Comments RDW (test code = RDW) 16.4 11.5-14.5 [facility] CenterEnbyjngUNKTYIKPGD8326-71-50 09:37:00 Test Item Value Reference Range Interpretation Comments MCH (test code = MCH) 25.9 pg 27.0-31.0 [facility] CenterXqreqvmUYFNBYURGC4544-13-06 09:37:00 Test Item Value Reference Range Interpretation Comments Platelet (test code = Platelet) 153 133-450 [facility] CenterEbukgevKDRIQYDUXF0566-95-48 09:37:00 Test Item Value Reference Range Interpretation Comments MPV (test code = MPV) 9.1 7.4-10.4 [facility] CenterCbsbwoqBTLANBBDBI5331-85-59 09:37:00 Test Item Value Reference Range Interpretation Comments Microcyte (test code = 1+ *ABN*(06/09/16 Microcyte) 4:37 AM) [facility] CenterZcsolnjDRTVSGVPVC4557-45-09 09:37:00 Test Item Value Reference Range Interpretation Comments Lymphocytes (test code = Lymphocytes) 13.1 20.0-40.0 [facility] CenterNsmpyyoDYCKFLQOFG Test Item Value Reference Range Interpretation Comments Monocytes (test code = Monocytes) 7.3 2.0-12.0 [facility] CenterXjpsnkwMFRWTXKWDK2577-14-47 09:37:00 Test Item Value Reference Range Interpretation Comments Segs-Bands # (test code = Segs-Bands #) 7.6 1.5-8.1 [facility] CenterQyqszpsQJNYDRQHIU1478-33-55 09:37:00 Test Item Value Reference Range Interpretation Comments Basophils (test code = 0.2 See_Comment [Aut omated message] The Basophils) system which ge nerated this result tra nsmitted reference range : <=1.0. The reference r lina was not used to int erpret this result as normal/abnormal . [facility] CenterUkhacnsYMZXIQCXMT1050-49-71 09:37:00 Test Item Value Reference Range Interpretation Comments Segs (test code = Segs) 79.4 45.0-75.0 [facility] CenterUanotinRFEZCVCFOY9293-39-54 09:37:00 Test Item Value Reference Range Interpretation Comments Lymphocytes # (test code = Lymphocytes 1.3 1.0-5.5 #) [facility] CenterFqprcqfCCOCMQGGTA1756-54-44 09:37:00 Test Item Value Reference Range Interpretation Comments Monocytes # (test code 0.7 See_Comment [Aut omated message] The = Monocytes #) system which generated this result tra nsmitted reference range : <=0.8. The reference r lina was not used to int erpret this result as normal/abnormal . [facility] - HTLKJNFC3172-75-30 18:43:00 Test Item Value Reference Range Interpretation Comments MRSA by PCR (test Negative (06/08/16 1:43 code = MRSA by PCR) PM) [facility] BANK HJIZXRX7117-83-10 12:38:00 Test Item Value Reference Range Interpretation Comments Antibody Scrn (test Negative (06/08/16 7:38 code = Antibody Scrn) AM) [facility] BANK WRBEHCE4092-98-43 12:38:00 Test Item Value Reference Range Interpretation Comments ABO/Rh (test code = ABO/Rh) O POS [facility] CenterYfimzbxZRDQTIFMIC5492-01-33 12:38:00 Test Item Value Reference Range Interpretation Comments INR (test code = INR) 1.04 0.85-1.17 [facility] CenterYjgfbdwZQJJDRFTOS7539-95-66 12:38:00 Test Item Value Reference Range Interpretation Comments PT (test code = PT) 13.8 s 12.0-14.7 [facility] CenterMritnyoJNDNUBBDBR0635-45-71 12:38:00 Test Item Value Reference Range Interpretation Comments PTT (test code = PTT) 30.6 s 22.9-35.8 [facility] CenterWsqpcwhHCKEJZHTCC1526-76-65 12:38:00 Test Item Value Reference Range Interpretation Comments Eosinophils # (test code 0.2 See_Comment [A utomated message] The = Eosinophils #) system whic h generated this result tra nsmitted reference range : <=0.5. The reference r lina was not used to int erpret this result as normal/abnormal . [facility] CenterAriwdhlTINPKAGMZQ9876-07-18 12:38:00 Test Item Value Reference Range Interpretation Comments Eosinophils (test code = 1.6 See_Comment [A utomated message] The Eosinophils) system which ge nerated this result tra nsmitted reference range : <=4.0. The reference r lina was not used to int erpret this result as normal/abnormal . [facility] [id number] 14:42:00 Test Item Value Reference Range Interpretation Comments eGFR (test code = eGFR) 62 [facility] YGMMD2371-81-90 14:42:00 Test Item Value Reference Range Interpretation Comments Sodium Lvl (test code = Sodium Lvl) 140 135-145 [facility] [id number] 14:42:00 Test Item Value Reference Range Interpretation Comments Creatinine Lvl (test code = Creatinine 0.90 0.50-1.40 Lvl) [facility]2017-04-13 14:42:00 Test Item Value Reference Range Interpretation Comments Chloride Lvl (test code = Chloride Lvl) 102 95-109 [facility] ZTPOH1802-14-62 14:42:00 Test Item Value Reference Range Interpretation Comments Potassium Lvl (test code = Potassium 3.6 3.5-5.1 Lvl) [facility]2017-04-13 14:42:00 Test Item Value Reference Range Interpretation Comments CO2 (test code = CO2) 30 24-32 [facility]2017-04-13 14:42:00 Test Item Value Reference Range Interpretation Comments Calcium Lvl (test code = Calcium Lvl) 8.9 8.5-10.5 [facility]2017-04-13 14:42:00 Test Item Value Reference Range Interpretation Comments Glucose Lvl (test code = Glucose Lvl) 185 70-99 [facility]2017-04-13 14:42:00 Test Item Value Reference Range Interpretation Comments BUN (test code = BUN) 20 7-22 [facility]2017-04-13 14:42:00 Test Item Value Reference Range Interpretation Comments AGAP (test code = AGAP) 11.6 10.0-20.0 [facility] CenterGomduzpEHGLLXJZGX0280-12-26 14:42:00 Test Item Value Reference Range Interpretation Comments Microcyte (test code = 1+ *ABN*(05/26/16 Microcyte) 9:42 AM) [facility] CenterLdoieowELNLRJZODC5266-54-84 14:42:00 Test Item Value Reference Range Interpretation Comments Monocytes # (test code 0.5 See_Comment [Aut omated message] The = Monocytes #) system which generated this result tra nsmitted reference range : <=0.8. The reference r lina was not used to int erpret this result as normal/abnormal . [facility] CenterRgvqnlvDVSHNSXMNB9899-79-86 14:42:00 Test Item Value Reference Range Interpretation Comments Eosinophils # (test code 0.2 See_Comment [A utomated message] The = Eosinophils #) system whic h generated this result tra nsmitted reference range : <=0.5. The reference r lina was not used to int erpret this result as normal/abnormal . [facility] CenterEkxtxsxMLORRHRCJR3090-12-10 14:42:00 Test Item Value Reference Range Interpretation Comments Lymphocytes # (test code = Lymphocytes 1.6 1.0-5.5 #) [facility] CenterZmxcbkwUJFICGPYWG9434-18-36 14:42:00 Test Item Value Reference Range Interpretation Comments Segs-Bands # (test code = Segs-Bands #) 6.9 1.5-8.1 [facility] CenterAcpzpjnHVFRMBJJOJ8102-54-78 14:42:00 Test Item Value Reference Range Interpretation Comments Basophils (test code = 0.4 See_Comment [Aut omated message] The Basophils) system which ge nerated this result tra nsmitted reference range : <=1.0. The reference r lina was not used to int erpret this result as normal/abnormal . [facility] CenterToqjwccBQTDMHOXGM3418-79-89 14:42:00 Test Item Value Reference Range Interpretation Comments Monocytes (test code = Monocytes) 4.9 2.0-12.0 [facility] CenterPdnnktgWUQWNEGUXK4195-27-23 14:42:00 Test Item Value Reference Range Interpretation Comments Eosinophils (test code = 1.8 See_Comment [A utomated message] The Eosinophils) system which ge nerated this result tra nsmitted reference range : <=4.0. The reference r lina was not used to int erpret this result as normal/abnormal . [facility] CenterYzaihchDQFORNINPO8621-54-74 14:42:00 Test Item Value Reference Range Interpretation Comments Lymphocytes (test code = Lymphocytes) 17.4 20.0-40.0 [facility] CenterHnauynuPNNEDXHVIU7337-07-26 14:42:00 Test Item Value Reference Range Interpretation Comments Segs (test code = Segs) 75.5 45.0-75.0 [facility] CenterHocpiykBTXDAGOFHD4101-57-88 14:42:00 Test Item Value Reference Range Interpretation Comments Platelet (test code = Platelet) 169 133-450 [facility] CenterAahwjnuENJXWAIPGK5093-26-82 14:42:00 Test Item Value Reference Range Interpretation Comments MCH (test code = MCH) 25.9 pg 27.0-31.0 [facility] CenterKpemqfrZBRKDTKVPF5766-67-51 14:42:00 Test Item Value Reference Range Interpretation Comments MPV (test code = MPV) 9.8 7.4-10.4 [facility] CenterPmdbdurSRVRMSJBJY3795-55-79 14:42:00 Test Item Value Reference Range Interpretation Comments RDW (test code = RDW) 16.2 11.5-14.5 [facility] CenterBzxfnsgTFINWTZQAM4375-60-33 14:42:00 Test Item Value Reference Range Interpretation Comments MCHC (test code = MCHC) 33.0 32.0-36.0 [facility] CenterCpcssfkSMMXHBTLPK6910-89-17 14:42:00 Test Item Value Reference Range Interpretation Comments Hct (test code = Hct) 37.2 36.0-48.0 [facility] CenterKdksgkfLUZWOEVHBE2817-94-07 14:42:00 Test Item Value Reference Range Interpretation Comments MCV (test code = MCV) 78.3 80.0-98.0 [facility] CenterOihivhnCQLRLTCAGO6260-21-69 14:42:00 Test Item Value Reference Range Interpretation Comments Hgb (test code = Hgb) 12.3 12.0-16.0 [facility] CenterKreayzzFNAVLQSDHG1585-49-66 14:42:00 Test Item Value Reference Range Interpretation Comments RBC (test code = RBC) 4.75 4.20-5.40 [facility] CenterPgkcyxwLKZWKOEOEV3949-57-57 14:42:00 Test Item Value Reference Range Interpretation Comments WBC (test code = WBC) 9.2 3.7-10.4 [facility] CenterUijndkzSFZSNQXLFO9392-50-86 14:42:00 Test Item Value Reference Range Interpretation Comments PT (test code = PT) 13.8 s 12.0-14.7 [facility] CenterHgufgsnUIKZMGHTZJ1143-04-91 14:42:00 Test Item Value Reference Range Interpretation Comments INR (test code = INR) 1.04 0.85-1.17 [facility] CenterZiroduiFOPUJROOWE0723-30-01 14:42:00 Test Item Value Reference Range Interpretation Comments PTT (test code = PTT) 32.1 s 22.9-35.8 [facility] GLUCOSE [id number] 20:21:00 Test Item Value Reference Range Interpretation Comments Gluc POC Lifscn (test code = Gluc POC 186 70-99 H Lifscn) [facility] GLUCOSE [id number] 16:28:00 Test Item Value Reference Range Interpretation Comments Gluc POC Lifscn (test code = Gluc POC 219 70-99 H Lifscn) [facility] GLUCOSE [id number] 11:13:00 Test Item Value Reference Range Interpretation Comments Gluc POC Lifscn (test code = Gluc POC 201 70-99 H Lifscn) [facility] GLUCOSE DLBVGCN3258-71-22 11:13:00 Test Item Value Reference Range Interpretation Comments Comment1 (test code = Comment1) Notify RN/ [facility] GLUCOSE [id number] 02:20:00 Test Item Value Reference Range Interpretation Comments Comment1 (test code = Comment1) Notify RN/MD [facility] GLUCOSE [id number] 20:55:00 Test Item Value Reference Range Interpretation Comments Comment1 (test code = Comment1) [facility]/ [facility]hszcpJQOLDKJGH5989-07-36 10:31:00 Test Item Value Reference Range Interpretation Comments Sodium Lvl (test code = Sodium Lvl) 144 135-145 N [facility]DopdktnQICRDHAWY4200-28-69 10:31:00 Test Item Value Reference Range Interpretation Comments Chloride Lvl (test code = Chloride Lvl) 105 95-109 N [facility] HospitalJmrfejbVDRONSDQN4922-32-80 10:31:00 Test Item Value Reference Range Interpretation Comments Potassium Lvl (test code = Potassium 3.6 3.5-5.1 N Lvl) [facility]OccbcvyICFYMBTVP0366-20-10 10:31:00 Test Item Value Reference Range Interpretation Comments eGFR (test code = eGFR) 96 [facility] HospitalZublhkfRXUSHLFND2246-21-30 10:31:00 Test Item Value Reference Range Interpretation Comments Creatinine Lvl (test code = Creatinine 0.5 0.5-1.4 N Lvl) [facility]PtwwaawYSCOZJNNL8765-01-61 10:31:00 Test Item Value Reference Range Interpretation Comments CO2 (test code = CO2) 28 24-32 N [facility] HospitalFmftqqpZBINFUSRY7930-30-51 10:31:00 Test Item Value Reference Range Interpretation Comments Calcium Lvl (test code = Calcium Lvl) 7.8 8.5-10.5 L [facility] HospitalGqtpdnsQXNIMCOEA8013-83-83 10:31:00 Test Item Value Reference Range Interpretation Comments BUN (test code = BUN) 14 7-22 N [facility] HospitalWxmxrlsZLPEQQNQC6777-37-05 10:31:00 Test Item Value Reference Range Interpretation Comments Glucose Lvl (test code = Glucose Lvl) 118 70-99 H [facility] HospitalJnuumqePVEEAYTNV2185-88-23 10:31:00 Test Item Value Reference Range Interpretation Comments AGAP (test code = AGAP) 14.6 10.0-20.0 N [facility]JavizdpMEHIJQJGYJ7026-24-78 10:31:00 Test Item Value Reference Range Interpretation Comments Platelet (test code = Platelet) 183 133-450 N [facility] CenterDokslreDASKCZZRNN3156-44-20 10:31:00 Test Item Value Reference Range Interpretation Comments MCHC (test code = MCHC) 32.4 32.0-36.0 N [facility] CenterEelhiuzLPNGEUNFAF0847-68-07 10:31:00 Test Item Value Reference Range Interpretation Comments RDW (test code = RDW) 15.7 11.5-14.5 H [facility] CenterLcjgphlJUNZTCLJBI3839-20-47 10:31:00 Test Item Value Reference Range Interpretation Comments MCH (test code = MCH) 26.8 pg 27.0-31.0 L [facility] CenterYgxyvbdNMKXVZSCJN6120-18-78 10:31:00 Test Item Value Reference Range Interpretation Comments MCV (test code = MCV) 82.8 81.0-99.0 N [facility] CenterWzuesfqGNOXXCQSRF5836-13-44 10:31:00 Test Item Value Reference Range Interpretation Comments MPV (test code = MPV) 9.9 7.4-10.4 N [facility] CenterAelggywVFWHGCXFSQ8440-10-51 10:31:00 Test Item Value Reference Range Interpretation Comments Hct (test code = Hct) 29.4 36.0-48.0 L [facility] CenterXfbymgbDTLQOTLTHA6074-64-56 10:31:00 Test Item Value Reference Range Interpretation Comments Hgb (test code = Hgb) 9.5 12.0-16.0 L [facility] CenterZlgbkyaIZLJTNXZXW5845-54-69 10:31:00 Test Item Value Reference Range Interpretation Comments RBC (test code = RBC) 3.55 4.20-5.40 L [facility] CenterVelciheLMTHRIEPNH2649-40-83 10:31:00 Test Item Value Reference Range Interpretation Comments WBC (test code = WBC) 8.9 3.7-10.4 N [facility] CenterPdfvnbcWXYHYUIOBW5468-51-79 10:31:00 Test Item Value Reference Range Interpretation Comments Segs-Bands # (test code = Segs-Bands #) 7.2 1.5-8.1 N [facility] CenterZnbjmwaFIRZCJYXQC6540-74-49 10:31:00 Test Item Value Reference Range Interpretation Comments Basophils (test code = 0.1 See_Comment N [Aut omated message] The Basophils) system which ge nerated this result tra nsmitted reference range : <=1.0. The reference r lina was not used to int erpret this result as normal/abnormal . [facility] CenterRyvdpxtOPEIBBXBTN7511-20-76 10:31:00 Test Item Value Reference Range Interpretation Comments Basophils # (test code 0.0 See_Comment N [Aut omated message] The = Basophils #) system which generated this result tra nsmitted reference range : <=0.2. The reference r lina was not used to int erpret this result as normal/abnormal . [facility] CenterMkpfcnrXBKHLTWPRZ2925-45-62 10:31:00 Test Item Value Reference Range Interpretation Comments Eosinophils # (test code 0.4 See_Comment N [A utomated message] The = Eosinophils #) system whic h generated this result tra nsmitted reference range : <=0.5. The reference r lina was not used to int erpret this result as normal/abnormal . [facility] CenterYwmhxouDQQIJCIEJC9308-13-84 10:31:00 Test Item Value Reference Range Interpretation Comments Monocytes # (test code 0.4 See_Comment N [Aut omated message] The = Monocytes #) system which generated this result tra nsmitted reference range : <=0.8. The reference r lina was not used to int erpret this result as normal/abnormal . [facility] CenterZguzejoUBVPGARVKP6690-09-87 10:31:00 Test Item Value Reference Range Interpretation Comments Lymphocytes # (test code = Lymphocytes 0.8 1.0-5.5 L #) [facility] CenterDrxwotoJETDPLSZPW5106-52-04 10:31:00 Test Item Value Reference Range Interpretation Comments Eosinophils (test code = 4.8 See_Comment H [A utomated message] The Eosinophils) system which ge nerated this result tra nsmitted reference range : <=4.0. The reference r lina was not used to int erpret this result as normal/abnormal . [facility] CenterMszqilhLDJNDNTAOT8589-32-22 10:31:00 Test Item Value Reference Range Interpretation Comments Monocytes (test code = Monocytes) 4.8 2.0-12.0 N [facility] CenterQalgeqoHODVGFPNAO4373-73-48 10:31:00 Test Item Value Reference Range Interpretation Comments Lymphocytes (test code = Lymphocytes) 8.9 20.0-40.0 L [facility] CenterLyapizcPTXDHNDWUQ0372-51-52 10:31:00 Test Item Value Reference Range Interpretation Comments Segs (test code = Segs) 81.4 45.0-75.0 H [facility] HospitalLjjrwmdPWQXNJNLM5784-31-80 08:47:00 Test Item Value Reference Range Interpretation Comments Magnesium Lvl (test code = Magnesium 2.1 1.8-2.4 N Lvl) [facility] HospitalKzikzroNOFCRFXXR9461-87-16 08:47:00 Test Item Value Reference Range Interpretation Comments Chloride Lvl (test code = Chloride Lvl) 106 95-109 N [facility] HospitalInxmgpdSRZUJCFHV0687-76-27 08:47:00 Test Item Value Reference Range Interpretation Comments Potassium Lvl (test code = Potassium 3.5 3.5-5.1 N Lvl) [facility] HospitalCteduxeJGRSBWEZS0262-59-48 08:47:00 Test Item Value Reference Range Interpretation Comments Sodium Lvl (test code = Sodium Lvl) 144 135-145 N [facility] HospitalZlkoiqqEBDDOEVCZ5084-42-35 08:47:00 Test Item Value Reference Range Interpretation Comments Globulin (test code = Globulin) 2.7 2.0-4.0 N [facility] HospitalDhllwobPOWETLAKK2335-17-95 08:47:00 Test Item Value Reference Range Interpretation Comments A/G Ratio (test code = A/G Ratio) 1.0 0.7-1.6 N [facility] HospitalJgjadohZRZYBJXRY4026-18-07 08:47:00 Test Item Value Reference Range Interpretation Comments Bili Total (test code = Bili Total) 0.9 0.2-1.3 N [facility] HospitalJnsdrzgHJONKTTIB3464-55-58 08:47:00 Test Item Value Reference Range Interpretation Comments ALT (test code = ALT) 12 See_Comment N [Auto mated message] The system which ge nerated this result transmit norris reference range : <=65. The reference range was not used to interpr et this result as darshana l/abnormal. [facility] HospitalOwqatveQSYRXGVOY1422-55-98 08:47:00 Test Item Value Reference Range Interpretation Comments Alk Phos (test code = Alk Phos) 60 39-136 N [facility] HospitalYelxgdvRXOZUXSVE9108-60-92 08:47:00 Test Item Value Reference Range Interpretation Comments Creatinine Lvl (test code = Creatinine 0.5 0.5-1.4 N Lvl) [facility] HospitalHyguwjtWZADTFMIG9848-08-43 08:47:00 Test Item Value Reference Range Interpretation Comments CO2 (test code = CO2) 31 24-32 N [facility] HospitalBrwpzdsKWYRAOFCN3453-82-38 08:47:00 Test Item Value Reference Range Interpretation Comments Glucose Lvl (test code = Glucose Lvl) 93 70-99 N [facility] HospitalQnsfmwxFUHXRBSDM8126-95-52 08:47:00 Test Item Value Reference Range Interpretation Comments BUN (test code = BUN) 14 7-22 N [facility] HospitalZlfxbazNTOBFVODB6131-14-05 08:47:00 Test Item Value Reference Range Interpretation Comments AGAP (test code = AGAP) 10.5 10.0-20.0 N [facility] HospitalDljnovxFYIKPYFNH0451-82-67 08:47:00 Test Item Value Reference Range Interpretation Comments Total Protein (test code = Total 5.3 6.4-8.4 L Protein) [facility] HospitalWoagragYIFUTWNXG8454-46-76 08:47:00 Test Item Value Reference Range Interpretation Comments Albumin Lvl (test code = Albumin Lvl) 2.6 3.5-5.0 L [facility] HospitalRciygiiBZWRSXMUN8906-41-03 08:47:00 Test Item Value Reference Range Interpretation Comments Calcium Lvl (test code = Calcium Lvl) 7.6 8.5-10.5 L [facility] HospitalLjvmkpwNXLIQDITE5780-60-95 08:47:00 Test Item Value Reference Range Interpretation Comments B/C Ratio (test code = B/C Ratio) 28 6-25 H [facility] HospitalRlhcwozHGQCLWGSX2776-91-01 08:47:00 Test Item Value Reference Range Interpretation Comments AST (test code = AST) 9 See_Comment N [Auto mated message] The system which ge nerated this result transmit norris reference range : <=37. The reference range was not used to interpr et this result as darshana l/abnormal. [facility] HospitalLzisqawSLYQMYANT7351-55-20 08:47:00 Test Item Value Reference Range Interpretation Comments eGFR (test code = eGFR) 96 [facility] CenterNgggxcrAABESSPPUZ8776-22-42 08:47:00 Test Item Value Reference Range Interpretation Comments Monocytes # (test code 0.4 See_Comment N [Aut omated message] The = Monocytes #) system which generated this result tra nsmitted reference range : <=0.8. The reference r lina was not used to int erpret this result as normal/abnormal . [facility] CenterMucnwebWLYKZCIVLG2483-03-44 08:47:00 Test Item Value Reference Range Interpretation Comments Eosinophils # (test code 0.3 See_Comment N [A utomated message] The = Eosinophils #) system whic h generated this result tra nsmitted reference range : <=0.5. The reference r lina was not used to int erpret this result as normal/abnormal . [facility] CenterEuudqtqMFXQDKAGWD5345-20-73 08:47:00 Test Item Value Reference Range Interpretation Comments Basophils # (test code 0.0 See_Comment N [Aut omated message] The = Basophils #) system which generated this result tra nsmitted reference range : <=0.2. The reference r lina was not used to int erpret this result as normal/abnormal . [facility] CenterQtyjnycZATAWSELQJ8708-59-91 08:47:00 Test Item Value Reference Range Interpretation Comments Eosinophils (test code = 3.3 See_Comment N [A utomated message] The Eosinophils) system which ge nerated this result tra nsmitted reference range : <=4.0. The reference r lina was not used to int erpret this result as normal/abnormal . [facility] CenterLcuoghjOVIEMFJGNW5954-74-29 08:47:00 Test Item Value Reference Range Interpretation Comments Basophils (test code = 0.2 See_Comment N [Aut omated message] The Basophils) system which ge nerated this result tra nsmitted reference range : <=1.0. The reference r lina was not used to int erpret this result as normal/abnormal . [facility] CenterSykxzsdZZHJUPRMAR4152-96-67 08:47:00 Test Item Value Reference Range Interpretation Comments Segs-Bands # (test code = Segs-Bands #) 7.4 1.5-8.1 N [facility] CenterGmrylzzUJCDPALKJV6012-98-18 08:47:00 Test Item Value Reference Range Interpretation Comments Lymphocytes # (test code = Lymphocytes 0.9 1.0-5.5 L #) [facility] CenterIlotvlmEGLJAPEDEU8704-61-80 08:47:00 Test Item Value Reference Range Interpretation Comments Monocytes (test code = Monocytes) 4.7 2.0-12.0 N [facility] CenterVktbfibNTODOHFPKB8885-20-05 08:47:00 Test Item Value Reference Range Interpretation Comments Lymphocytes (test code = Lymphocytes) 10.1 20.0-40.0 L [facility] CenterMdzlegeVAXJWBTYBD7963-22-57 08:47:00 Test Item Value Reference Range Interpretation Comments Segs (test code = Segs) 81.7 45.0-75.0 H [facility] CenterKuyaljbHGTJSOSVHU1201-93-58 08:47:00 Test Item Value Reference Range Interpretation Comments MPV (test code = MPV) 9.8 7.4-10.4 N [facility] CenterBpqcgpqKHTPUTXTYU9942-41-86 08:47:00 Test Item Value Reference Range Interpretation Comments MCHC (test code = MCHC) 32.4 32.0-36.0 N [facility] CenterMlpummgSTJKGKYCGR6864-10-35 08:47:00 Test Item Value Reference Range Interpretation Comments RDW (test code = RDW) 15.8 11.5-14.5 H [facility] CenterAyuyrwhCORLIDSDLK5180-97-62 08:47:00 Test Item Value Reference Range Interpretation Comments Platelet (test code = Platelet) 174 133-450 N [facility] CenterXxwnqzfBXMWQDTSSW3469-41-02 08:47:00 Test Item Value Reference Range Interpretation Comments Hct (test code = Hct) 29.1 36.0-48.0 L [facility] CenterDpkkoaqUUUZQAJHQG0100-15-77 08:47:00 Test Item Value Reference Range Interpretation Comments RBC (test code = RBC) 3.53 4.20-5.40 L [facility] CenterIprheroRHTICZXSXZ8110-40-52 08:47:00 Test Item Value Reference Range Interpretation Comments WBC (test code = WBC) 9.1 3.7-10.4 N [facility] CenterMnzdgcjEVQUWWMOUR7995-13-68 08:47:00 Test Item Value Reference Range Interpretation Comments Hgb (test code = Hgb) 9.4 12.0-16.0 L [facility] CenterRblshzwPYXVJHAOUN4544-21-49 08:47:00 Test Item Value Reference Range Interpretation Comments MCH (test code = MCH) 26.7 pg 27.0-31.0 L [facility] CenterNffquchWIOBNALGGD4719-02-00 08:47:00 Test Item Value Reference Range Interpretation Comments MCV (test code = MCV) 82.4 81.0-99.0 N [facility] HospitalJmodwfqBJJHJCFGU1357-72-69 10:08:00 Test Item Value Reference Range Interpretation Comments Magnesium Lvl (test code = Magnesium 2.0 1.8-2.4 N Lvl) [facility] HospitalXquxosqILTCFJITQ1532-85-84 10:08:00 Test Item Value Reference Range Interpretation Comments A/G Ratio (test code = A/G Ratio) 1.0 0.7-1.6 N [facility] HospitalQobjdqqYTPDAZMYT7912-82-90 10:08:00 Test Item Value Reference Range Interpretation Comments Globulin (test code = Globulin) 2.8 2.0-4.0 N [facility] HospitalAndofmnLESULIKYZ0938-35-13 10:08:00 Test Item Value Reference Range Interpretation Comments B/C Ratio (test code = B/C Ratio) 26 6-25 H [facility] HospitalPzjgoqpCIMQDIMHZ6656-86-49 10:08:00 Test Item Value Reference Range Interpretation Comments AGAP (test code = AGAP) 13.8 10.0-20.0 N [facility] HospitalSdgnvqgJAMGRYXGA9979-07-79 10:08:00 Test Item Value Reference Range Interpretation Comments ALT (test code = ALT) 16 See_Comment N [Auto mated message] The system which ge nerated this result transmit norris reference range : <=65. The reference range was not used to interpr et this result as darshana l/abnormal. [facility] HospitalCtfspkyVVQHTSQUT7160-48-04 10:08:00 Test Item Value Reference Range Interpretation Comments Alk Phos (test code = Alk Phos) 70 39-136 N [facility] HospitalHtqwoxbRBMJVZWCB0079-75-09 10:08:00 Test Item Value Reference Range Interpretation Comments Total Protein (test code = Total 5.5 6.4-8.4 L Protein) [facility] HospitalVoinqfnUGQTLYBGJ1879-45-56 10:08:00 Test Item Value Reference Range Interpretation Comments Albumin Lvl (test code = Albumin Lvl) 2.7 3.5-5.0 L [facility] HospitalNmntnjrMQKOYNWHF4585-39-41 10:08:00 Test Item Value Reference Range Interpretation Comments Bili Total (test code = Bili Total) 0.5 0.2-1.3 N [facility] HospitalHyfscsdHEHIKBGJP7353-87-66 10:08:00 Test Item Value Reference Range Interpretation Comments AST (test code = AST) 10 See_Comment N [Auto mated message] The system which ge nerated this result transmit norris reference range : <=37. The reference range was not used to interpr et this result as darshana l/abnormal. [facility] HospitalPoablbzXKHNACQLK4938-83-60 10:08:00 Test Item Value Reference Range Interpretation Comments eGFR (test code = eGFR) 96 [facility] HospitalHcvjkozAYHHWICWV3502-67-81 10:08:00 Test Item Value Reference Range Interpretation Comments BUN (test code = BUN) 13 7-22 N [facility] HospitalVsiqjqhIFMFQSKKV0844-87-88 10:08:00 Test Item Value Reference Range Interpretation Comments Creatinine Lvl (test code = Creatinine 0.5 0.5-1.4 N Lvl) [facility] HospitalGitkfsvXIMCQHAUR6146-44-17 10:08:00 Test Item Value Reference Range Interpretation Comments Sodium Lvl (test code = Sodium Lvl) 146 135-145 H [facility] HospitalMxszeogPAWQNPJFF0338-71-80 10:08:00 Test Item Value Reference Range Interpretation Comments Potassium Lvl (test code = Potassium 3.8 3.5-5.1 N Lvl) [facility] HospitalVimgmvbXCEMTJPBZ6703-63-65 10:08:00 Test Item Value Reference Range Interpretation Comments Chloride Lvl (test code = Chloride Lvl) 108 95-109 N [facility] HospitalPfwoawaGOIXGAXNF6641-08-14 10:08:00 Test Item Value Reference Range Interpretation Comments Glucose Lvl (test code = Glucose Lvl) 114 70-99 H [facility] HospitalAwggeqtGAQLBLVZF3458-97-94 10:08:00 Test Item Value Reference Range Interpretation Comments Calcium Lvl (test code = Calcium Lvl) 7.4 8.5-10.5 L [facility] HospitalTxsrpzcBATKSPFNT9027-28-91 10:08:00 Test Item Value Reference Range Interpretation Comments CO2 (test code = CO2) 28 24-32 N [facility] CenterBowzxoeNAYTAJKFBN2195-14-82 10:08:00 Test Item Value Reference Range Interpretation Comments MPV (test code = MPV) 9.9 7.4-10.4 N [facility] CenterCbktzxqUCTPPQOQHK2724-97-02 10:08:00 Test Item Value Reference Range Interpretation Comments Platelet (test code = Platelet) 171 133-450 N [facility] CenterVdjqotyJNQHMOZAEL0780-53-77 10:08:00 Test Item Value Reference Range Interpretation Comments RDW (test code = RDW) 15.9 11.5-14.5 H [facility] CenterKqowoplUVVCMODQMK3129-43-18 10:08:00 Test Item Value Reference Range Interpretation Comments MCHC (test code = MCHC) 32.4 32.0-36.0 N [facility] CenterImjlbgyAUZSBHVPXH4781-09-90 10:08:00 Test Item Value Reference Range Interpretation Comments Hct (test code = Hct) 30.6 36.0-48.0 L [facility] CenterFavwmehBMZVYRUNPI0679-65-59 10:08:00 Test Item Value Reference Range Interpretation Comments RBC (test code = RBC) 3.70 4.20-5.40 L [facility] CenterBbfuvgoSTMHUKFKIA0436-55-19 10:08:00 Test Item Value Reference Range Interpretation Comments WBC (test code = WBC) 11.2 3.7-10.4 H [facility] CenterFcxlkbcGHWVWTXHVY2597-48-95 10:08:00 Test Item Value Reference Range Interpretation Comments Hgb (test code = Hgb) 9.9 12.0-16.0 L [facility] CenterAofdkxvHAIZDWRUGX9518-14-33 10:08:00 Test Item Value Reference Range Interpretation Comments MCV (test code = MCV) 82.7 81.0-99.0 N [facility] CenterKvwapsnSBRNDKXYIX1281-36-56 10:08:00 Test Item Value Reference Range Interpretation Comments MCH (test code = MCH) 26.8 pg 27.0-31.0 L [facility] CenterCkcshmzVPDVLQUKII5609-43-50 10:08:00 Test Item Value Reference Range Interpretation Comments Eosinophils (test code = 2.0 See_Comment N [A utomated message] The Eosinophils) system which ge nerated this result tra nsmitted reference range : <=4.0. The reference r lina was not used to int erpret this result as normal/abnormal . [facility] CenterSurmhjiIOJPWEDXJB0273-45-14 10:08:00 Test Item Value Reference Range Interpretation Comments Monocytes (test code = Monocytes) 4.0 2.0-12.0 N [facility] CenterGmdvuzdDDAKIEOEEQ5534-54-11 10:08:00 Test Item Value Reference Range Interpretation Comments Basophils (test code = 0.1 See_Comment N [Aut omated message] The Basophils) system which ge nerated this result tra nsmitted reference range : <=1.0. The reference r lina was not used to int erpret this result as normal/abnormal . [facility] CenterDauyxfdNGPJELOYOC8909-33-25 10:08:00 Test Item Value Reference Range Interpretation Comments Basophils # (test code 0.0 See_Comment N [Aut omated message] The = Basophils #) system which generated this result tra nsmitted reference range : <=0.2. The reference r lina was not used to int erpret this result as normal/abnormal . [facility] CenterSixmhtdEOPWCFMEIJ0332-19-81 10:08:00 Test Item Value Reference Range Interpretation Comments Eosinophils # (test code 0.2 See_Comment N [A utomated message] The = Eosinophils #) system whic h generated this result tra nsmitted reference range : <=0.5. The reference r lina was not used to int erpret this result as normal/abnormal . [facility] CenterLfgasgnVWXOEGLXSK6083-49-54 10:08:00 Test Item Value Reference Range Interpretation Comments Lymphocytes # (test code = Lymphocytes 1.4 1.0-5.5 N #) [facility] CenterXmefkokXUNNFBMEGS5647-65-30 10:08:00 Test Item Value Reference Range Interpretation Comments Segs-Bands # (test code = Segs-Bands #) 9.1 1.5-8.1 H [facility] CenterYxglxkxXQOOBBOJRG6223-81-23 10:08:00 Test Item Value Reference Range Interpretation Comments Monocytes # (test code 0.5 See_Comment N [Aut omated message] The = Monocytes #) system which generated this result tra nsmitted reference range : <=0.8. The reference r lina was not used to int erpret this result as normal/abnormal . [facility] CenterKacuiojKSPMHTPXWS2720-96-63 10:08:00 Test Item Value Reference Range Interpretation Comments Segs (test code = Segs) 81.5 45.0-75.0 H [facility] CenterVoyjoukWWGZDQVPMV3450-23-75 10:08:00 Test Item Value Reference Range Interpretation Comments Lymphocytes (test code = Lymphocytes) 12.4 20.0-40.0 L [facility]UjqowjbTwbjbjnroljh2653-14-78 00:40:07 Test Item Value Reference Range Interpretation Comments Culture: Urine (test code = Culture: Urine) [facility]OelfrjpZYCWOEQKY9368-63-67 10:40:00 Test Item Value Reference Range Interpretation Comments Bili Total (test code = Bili Total) 0.4 0.2-1.3 N [facility] HospitalOysnzkvDMGMBKYSY7306-24-02 10:40:00 Test Item Value Reference Range Interpretation Comments ALT (test code = ALT) 18 See_Comment N [Auto mated message] The system which ge nerated this result transmit norris reference range : <=65. The reference range was not used to interpr et this result as darshana l/abnormal. [facility] ChildrenVhkgupbLBBLMQZUG0613-61-18 10:40:00 Test Item Value Reference Range Interpretation Comments Alk Phos (test code = Alk Phos) 62 39-136 N [facility] ChildrenEobqtlqMSGAMZTEI5379-75-47 10:40:00 Test Item Value Reference Range Interpretation Comments Total Protein (test code = Total 6.1 6.4-8.4 L Protein) [facility] ChildrenBfcczpgTELKOOANF7712-82-73 10:40:00 Test Item Value Reference Range Interpretation Comments AST (test code = AST) 14 See_Comment N [Auto mated message] The system which ge nerated this result transmit norris reference range : <=37. The reference range was not used to interpr et this result as darshana l/abnormal. [facility] ChildrenRlumodbWYHOHDWTB7588-55-92 10:40:00 Test Item Value Reference Range Interpretation Comments Albumin Lvl (test code = Albumin Lvl) 2.7 3.5-5.0 L [facility] ChildrenKoduozrSKEEVJYVQ8609-54-09 10:40:00 Test Item Value Reference Range Interpretation Comments A/G Ratio (test code = A/G Ratio) 0.8 0.7-1.6 N [facility] CelddezDCTIZYPXR8962-05-45 10:40:00 Test Item Value Reference Range Interpretation Comments Globulin (test code = Globulin) 3.4 2.0-4.0 [facility] [id number] 10:40:00 Test Item Value Reference Range Interpretation Comments B/C Ratio (test code = B/C Ratio) 14 6-25 N [facility] ChildrenXmjtgzuDICWGWUXSM1277-96-50 18:27:00 Test Item Value Reference Range Interpretation Comments UA Sq Epi (test code Occasional /LPF = UA Sq Epi) *NA*(04/21/2012 12:27:00) [facility] Childr[id number] 18:27:00 Test Item Value Reference Range Interpretation Comments UA Leuk Est (test Moderate A code = UA Leuk Est) *ABN*(04/21/2012 12:27:00) [id number] 18:27:00 Test Item Value Reference Range Interpretation Comments UA WBC (test code = 6 See_Comment H [Automa norris message] The UA WBC) system which ge nerated this result transmit norris reference range : <=5. The reference range was not used to interpr et this result as darshana l/abnormal. [facility] CenterHggvktjJWTCIDHSVV1767-44-72 18:27:00 Test Item Value Reference Range Interpretation Comments UA RBC (test code = 34 See_Comment H [Automa norris message] The UA RBC) system which ge nerated this result transmit norris reference range : <=2. The reference range was not used to interpr et this result as darshana l/abnormal. [id number] 18:27:00 Test Item Value Reference Range Interpretation Comments UA CaOx Mey (test Occasional /HPF code = UA CaOx Mey) *NA*(04/21/2012 12:27:00) [id number] 18:27:00 Test Item Value Reference Range Interpretation Comments UA Mucus (test code = Few /LPF UA Mucus) *NA*(04/21/2012 12:27:00) [facility] CenterQxyjrkmANUWSXCHVP4063-22-60 18:27:00 Test Item Value Reference Range Interpretation Comments UA Bacteria (test code Occasional /HPF = UA Bacteria) *NA*(04/21/2012 12:27:00) [id number] 18:27:00 Test Item Value Reference Range Interpretation Comments UA Bili (test code = Negative *NA*(04/21/2012 UA Bili) 12:27:00) [facility] CenterOoatnolBROMOMPINF9341-12-50 18:27:00 Test Item Value Reference Range Interpretation Comments UA Blood (test code = Moderate A UA Blood) *ABN*(04/21/2012 12:27:00) [facility]OrssgcpXOCMHWYDMY3372-00-71 18:27:00 Test Item Value Reference Range Interpretation Comments UA Nitrite (test code Negative (04/21/2012 N = UA Nitrite) 12:27:00) [id number] 18:27:00 Test Item Value Reference Range Interpretation Comments UA Glucose (test code Negative mg/dL = UA Glucose) *NA*(04/21/2012 12:27:00) [facility]m[id number] 18:27:00 Test Item Value Reference Range Interpretation Comments UA Ketones (test code = 20 mg/dL A UA Ketones) *ABN*(04/21/2012 12:27:00) [facility]manYjmhfdaGNDXFXAZLF2718-13-98 18:27:00 Test Item Value Reference Range Interpretation Comments UA Urobilinogen (test code *NA*(04/21/2012 0.1-1.0 = UA Urobilinogen) 12:27:00) [facility]manNngjoigWWUXTDFSWW9800-39-05 18:27:00 Test Item Value Reference Range Interpretation Comments UA Color (test code = UA Color) Ltyellow [facility]DecdudvTYTXLVKDFQ0406-59-22 18:27:00 Test Item Value Reference Range Interpretation Comments UA Protein (test code Negative mg/dL N = UA Protein) (04/21/2012 12:27:00) [id number] 18:27:00 Test Item Value Reference Range Interpretation Comments UA Turbidity (test code = Clear (04/21/2012 N UA Turbidity) 12:27:00) [facility]m[id number] 18:27:00 Test Item Value Reference Range Interpretation Comments UA pH (test code = UA pH) 5.0 5.0-8.0 N [facility]m[id number] 18:27:00 Test Item Value Reference Range Interpretation Comments UA Spec Grav (test code = UA Spec Grav) 1.011 N [facility]unxupMZJGTJQQT0386-67-20 09:55:00 Test Item Value Reference Range Interpretation Comments Phosphorus (test code = Phosphorus) 2.8 2.5-4.5 N [facility] HospitalIrwhmetROZPOLXJI6076-27-58 09:55:00 Test Item Value Reference Range Interpretation Comments Magnesium Lvl (test code = Magnesium 1.8 1.8-2.4 N Lvl) [facility]SpibpmvSIZUEMMGN6935-73-72 00:11:00 Test Item Value Reference Range Interpretation Comments Phosphorus (test code = Phosphorus) 2.9 2.5-4.5 N [facility]TijitwfIUHDYMRNDN6624-88-38 00:11:00 Test Item Value Reference Range Interpretation Comments Plt Morph (test code = Normal (04/20/2012 N Plt Morph) 18:11:00) [facility] ChildrenEopyfamYJSCQQGQGV8427-76-94 00:11:00 Test Item Value Reference Range Interpretation Comments RBC Morph (test code = Normal (04/20/2012 N RBC Morph) 18:11:00) [facility]ennialBACTERIAL - [id number] 22:00:00 Test Item Value Reference Range Interpretation Comments MRSA by PCR (test Negative 1(04/20/2012 N code = MRSA by PCR) 16:00:00) [facility] ChildrenIlvpqmyDJBLTCBGC7419-67-05 10:47:00 Test Item Value Reference Range Interpretation Comments LDL (test code = LDL) 136 See_Comment H [Auto mated message] The system which ge nerated this result transmit norris reference range : <=129. The reference range was not used to interpr et this result as darshana l/abnormal. [facility]ds[facility]uvwNQOTLULHQ2850-26-47 10:47:00 Test Item Value Reference Range Interpretation Comments Chol (test code = Chol) 211 120-200 H [facility] ChildrenWhmgzqpXFNAZBHCG6710-16-26 10:47:00 Test Item Value Reference Range Interpretation Comments Trig (test code = 193 See_Comment N [Automate d message] The Trig) system which ge nerated this result transmit norris reference range : <=200. The reference range was not used to interpr et this result as darshana l/abnormal. [facility] ChildrenBfxswrdNUQGPYRBU5553-06-71 10:47:00 Test Item Value Reference Range Interpretation Comments HDL (test code = HDL) 36 N [facility] ChildrenDpeowkrDSEALAJQU1207-84-15 10:47:00 Test Item Value Reference Range Interpretation Comments CHD Risk (test code = CHD Risk) 5.86 3.90-5.80 H [facility] ChildrenOdblsdvRICHAKRMT5317-67-62 10:45:00 Test Item Value Reference Range Interpretation Comments TSH (test code = TSH) 0.631 0.360-3.740 N [facility] ChildrenMcznuhkNHFGRNARI6995-77-32 10:45:00 Test Item Value Reference Range Interpretation Comments Phosphorus (test code = Phosphorus) 3.2 2.5-4.5 N [facility] ChildrenQhclfjeMCLMWTPQXZ6370-12-84 10:45:00 Test Item Value Reference Range Interpretation Comments PTT (test code = PTT) 35.0 s 22.9-35.8 N [facility] CenterMmozpseISYEJOEZJA7357-04-02 10:45:00 Test Item Value Reference Range Interpretation Comments PT (test code = PT) 14.0 s 12.0-14.7 N [facility] CenterWflwrhbESOVULDBWP5987-27-24 10:45:00 Test Item Value Reference Range Interpretation Comments INR (test code = INR) 1.06 0.85-1.17 N [facility] HospitalJhzynziNKVSJTHUU6702-92-29 03:05:00 Test Item Value Reference Range Interpretation Comments BNP (test code = BNP) 86 N [facility] HospitalQayyfssYVDNVHCHI1125-24-10 03:05:00 Test Item Value Reference Range Interpretation Comments Total CK (test code = Total CK) 130 12-191 N [facility] HospitalPsacgnzRNCKQGDHZ2719-99-20 03:05:00 Test Item Value Reference Range Interpretation Comments CK MB (test code = CK MB) 0.9 0.5-3.6 N [facility] HospitalJtvsuadGLIZDWOZV2265-85-64 03:05:00 Test Item Value Reference Range Interpretation Comments Troponin-I (test code no gt See_Comment N [Auto mated message] The = Troponin-I) system which g enerated this result transmit norris reference range : <=0.40. The reference r lina was not used to interpr et this result as darshana l/abnormal. [facility] HospitalGktezdzWHRLSMTXL3708-39-26 03:05:00 Test Item Value Reference Range Interpretation Comments CK MB Index (test 0.7 See_Comment N [Automate d message] The code = CK MB Index) system w [facility] generated this result transmit norris reference range : <=2.5. The reference range was not used to interpr et this result as darshana l/abnormal. [facility] CenterAojngqvYECUTXOEFN5789-87-66 03:05:00 Test Item Value Reference Range Interpretation Comments INR (test code = INR) 0.95 0.85-1.17 N [facility] CenterSqnwocgOKEUMZSYOI4414-17-31 03:05:00 Test Item Value Reference Range Interpretation Comments PTT (test code = PTT) 34.0 s 22.9-35.8 N [facility] CenterInmbpreHMACQXUYZN6958-20-08 03:05:00 Test Item Value Reference Range Interpretation Comments PT (test code = PT) 12.9 s 12.0-14.7 N [facility] CenterUjteremUAUFYTISRH2625-65-18 03:05:00 Test Item Value Reference Range Interpretation Comments RBC Morph (test code = Normal (04/18/2012 N RBC Morph) 21:05:00) [facility] CenterVcirvngAJIIAEADAG5340-20-28 03:05:00 Test Item Value Reference Range Interpretation Comments Plt Morph (test code = Normal (04/18/2012 N Plt Morph) 21:05:00) [facility]ZbuhwqqEYZLSFGTGF3382-08-45 03:05:00 Test Item Value Reference Range Interpretation Comments UA Nitrite (test code Negative (04/18/2012 N = UA Nitrite) 21:05:00) [facility]TgjhddcUDZSEFHJYW7823-88-85 03:05:00 Test Item Value Reference Range Interpretation Comments UA Blood (test code = Negative (04/18/2012 N UA Blood) 21:05:00) [facility]manBmrmircBZJDTMLDST2219-78-61 03:05:00 Test Item Value Reference Range Interpretation Comments UA Bili (test code = Negative *NA*(04/18/2012 UA Bili) 21:05:00) [facility]m[id number] 03:05:00 Test Item Value Reference Range Interpretation Comments UA Urobilinogen (test code *NA*(04/18/2012 0.1-1.0 = UA Urobilinogen) 21:05:00) [facility]manZebglcuSURINIVFBO6008-97-62 03:05:00 Test Item Value Reference Range Interpretation Comments UA Color (test code = UA Color) Colorless [facility]IbqdmxtBAZJCWXBQL4039-04-94 03:05:00 Test Item Value Reference Range Interpretation Comments UA WBC (test code = 3 See_Comment N [Automa norris message] The UA WBC) system which ge nerated this result transmit norris reference range : <=5. The reference range was not used to interpr et this result as darshana l/abnormal. [facility]manKffgoyyMTQIMWZRCP5136-79-19 03:05:00 Test Item Value Reference Range Interpretation Comments UA Sq Epi (test code Occasional /LPF = UA Sq Epi) *NA*(04/18/2012 21:05:00) [facility]manVwusrvdOCXPAZLOOE3257-09-89 03:05:00 Test Item Value Reference Range Interpretation Comments UA Bacteria (test code Occasional /HPF = UA Bacteria) *NA*(04/18/2012 21:05:00) [id number] 03:05:00 Test Item Value Reference Range Interpretation Comments UA RBC (test code = no gt See_Comment N [Automa norris message] The UA RBC) system which ge nerated this result transmit norris reference range : <=2. The reference range was not used to interpr et this result as darshana l/abnormal. [facility]manYqoempjQBFSHYSLEF1531-55-74 03:05:00 Test Item Value Reference Range Interpretation Comments UA pH (test code = UA pH) 8.0 5.0-8.0 N [facility] CenterRchqovkTYROVPPBYS0835-67-60 03:05:00 Test Item Value Reference Range Interpretation Comments UA Leuk Est (test code Small *ABN*(04/18/2012 A = UA Leuk Est) 21:05:00) [facility]manSlhwlavGWXACYBZPJ2509-37-22 03:05:00 Test Item Value Reference Range Interpretation Comments UA Ketones (test code Negative mg/dL = UA Ketones) *NA*(04/18/2012 21:05:00) [facility] CenterUonaufgFABSXAZXAA2197-88-02 03:05:00 Test Item Value Reference Range Interpretation Comments UA Glucose (test code Negative mg/dL = UA Glucose) *NA*(04/18/2012 21:05:00) [facility]HpwfvtbUDLRANRVHX4519-03-66 03:05:00 Test Item Value Reference Range Interpretation Comments UA Protein (test code Negative mg/dL N = UA Protein) (04/18/2012 21:05:00) [facility] CenterFetdxnrVHVTNWBESK1978-22-90 03:05:00 Test Item Value Reference Range Interpretation Comments UA Turbidity (test code = Clear (04/18/2012 N UA Turbidity) 21:05:00) [facility]manTfwicohDSVVCSFMAK6033-39-37 03:05:00 Test Item Value Reference Range Interpretation Comments UA Spec Grav (test code = UA Spec Grav) [address] [facility]XjwcdbzCpuabjtmzrrm9277-91-93 03:05:00 Test Item Value Reference Range Interpretation Comments Culture: Urine (test code = Culture: Urine) [facility] Pa And Lat (2 Views)Chest Pa And Lat (2 Views)Foot Left 3 ViewFoot Left 3 View
[2022-03-12 13:17] LABS: Urine Blood Trace-lysed (Negative); Urine Glucose Negative (Negative); Urine Protein 1+ (Negative); Urine pH 5.5 (5.0-7.0)
[2022-03-12 13:33] LABS: Absolute Lymphocytes (CBC) 1.8 K/uL (0.7-4.9); Hematocrit 37.1 % (36.0-45.0); Lymphocytes % 15.3 % (15.3-44.8); MCV 82.8 fL (80-100); MPV 9.5 fL (7.6-11.3); RBC Red Blood Cell Count 4.48 M/uL (3.86-4.86)
[2022-03-12 13:37] LABS: SARS-COV-2 RT PCR POSITIVE (NEGATIVE)
[2022-03-12 13:54] LABS: Potassium 3.4 mmol/L (3.5-5.1)
[2022-03-12 13:55] LABS: Troponin High Sensitivity 264.2 pg/mL (<58.9)
[2022-03-12 14:22] LABS: Urine Blood Trace-intact (Negative); Urine Glucose Negative (Negative); Urine Protein Negative (Negative); Urine pH 5.5 (5.0-7.0)
[2022-03-12] MEDS ORDERED: ASPIRIN 81 MG CHEWABLE TABLET ONE ×2 (14:52→14:53)
[2022-03-12 14:53] LABS: Urine Bacteria <20 /HPF (<20); Urine Mucus Slight /HPF (None Seen); Urine RBC <5 /HPF (None Seen)
--- NOTE | 2022-03-12 15:06 | RAD REPORT ---
EXAM DESCRIPTION: Alise Single View03/12/2022 2:17 pm CLINICAL HISTORY: Cough COMPARISON: March 2021 FINDINGS: The lungs appear clear of acute infiltrate. The heart is mildly to moderately enlarged IMPRESSION: No acute abnormalities displayed
--- NOTE | 2022-03-12 15:19 | ER ---
Nurse's Notes [facility] Name: Eva Haskins Age: 81 yrs Sex: Female : 1940 Arrival Date: 03/12/2022 Time: 11:53 Bed 12 Private MD: [place] Tripp Diagnosis: Subsequent non-ST elevation (NSTEMI) myocardial infarction;SARS-associated coronavirus as the cause of diseases classified elsewhere;Cough;UTI/ Urinary tract infection, site not specified Presentation: 03/12 12:08 Chief complaint: Patient states: productive cough, fever, runny nose, and lack of eh3 appetite for past 5 days. Had same symptoms 2 weeks ago, got better, then symptoms came back. Coronavirus screen: Vaccine status: Patient reports receiving the 2nd dose of the covid vaccine. Ebola Screen: No symptoms or risks identified at this time. Initial Sepsis Screen: Does the patient meet any 2 criteria? No. Patient's initial sepsis screen is negative. Does the patient have a suspected source of infection? No. Patient's initial sepsis screen is negative. Risk Assessment: Do you want to hurt yourself or someone else? Patient reports no desire to harm self or others. Onset of symptoms was March 07, 2021. 12:08 Method Of Arrival: Ambulatory eh3 12:08 Acuity: DEVON 3 eh3 Triage Assessment: 12:10 General: Appears in no apparent distress. comfortable, Behavior is calm, cooperative, eh3 appropriate for age. Pain: Denies pain. EENT: Reports nasal discharge that is yellow. Neuro: Level of Consciousness is awake, alert, obeys commands, Oriented to person, place, time, situation. Cardiovascular: Capillary refill < 3 seconds Patient's skin is warm and dry. Respiratory: Reports cough that is productive, Airway is patent Respiratory effort is even, unlabored, Respiratory pattern is regular, symmetrical. GI: No signs and/or symptoms were reported involving the gastrointestinal system. Abdomen is round non-distended. : No signs and/or symptoms were reported regarding the genitourinary system. Derm: No signs and/or symptoms reported regarding the dermatologic system. Skin is pink, warm \T\ dry. Musculoskeletal: No signs and/or symptoms reported regarding the musculoskeletal system. Circulation, motion, and sensation intact. Historical: - Allergies: 12:10 Iodine; eh3 12:10 Levofloxacin; eh3 - Home Meds: 13:27 glipizide 5 mg oral tab once daily [Active]; metoprolol tartrate 50 mg oral tab 2 times eh3 per day [Active]; pentoxifylline 400 mg Oral TbER 1 tab 3 times per day [Active]; losartan 100 mg oral tab 1 tab once daily [Active]; clopidogrel 75 mg oral tab 1 tab once daily [Active]; benzonatate 200 mg oral cap 1 cap 3 times per day [Active]; cetirizine 10 mg oral tab 1 tab once daily [Active]; potassium chloride 10 mEq Oral cpER 1 cap 2 times per day [Active]; citalopram 20 mg tab 1 tab once daily [Active]; furosemide 40 mg Oral tab 1 tab 2 times per day [Active]; alendronate 70 mg oral tab 1 tab once wkly [Active]; - PMHx: 12:10 Diabetes - NIDDM; Hyperlipidemia; Hypertension; Myocardial infarction; TIA; eh3 - Immunization history:: Adult Immunizations up to date. - Social history:: Smoking status: Patient denies any tobacco usage or history of. Patient/guardian denies using alcohol. Screenin:12 [facility] ED Fall Risk Assessment (Adult) History of falling in the last 3 months, 3 including since admission No falls in past 3 months (0 pts) Confusion or Disorientation No (0 pts) Intoxicated or Sedated No (0 pts) Impaired Gait Yes (1 pt) Mobility Assist Device Used Yes (1 pt) Altered Elimination No (0 pt) Score/Fall Risk Level 0 - 2 = Low Risk. Abuse screen: Denies threats or abuse. Denies injuries from another. Nutritional screening: No deficits noted. Tuberculosis screening: No symptoms or risk factors identified. Assessment: 12:12 Reassessment: No changes from previously documented assessment. See triage assessment. 3 13:00 Reassessment: Patient appears in no apparent distress at this time. Patient and/or 3 family updated on plan of care and expected duration. Pain level reassessed. Patient is alert, oriented x 3, equal unlabored respirations, skin warm/dry/pink. 14:00 Reassessment: Patient appears in no apparent distress at this time. Patient and/or 3 family updated on plan of care and expected duration. Pain level reassessed. Patient is alert, oriented x 3, equal unlabored respirations, skin warm/dry/pink. 15:00 Reassessment: Patient appears in no apparent distress at this time. Patient and/or eh3 family updated on plan of care and expected duration. Pain level reassessed. Patient is alert, oriented x 3, equal unlabored respirations, skin warm/dry/pink. 16:00 Reassessment: Patient appears in no apparent distress at this time. Patient and/or eh3 family updated on plan of care and expected duration. Pain level reassessed. Patient is alert, oriented x 3, equal unlabored respirations, skin warm/dry/pink. 16:45 Reassessment: Pt c/o pain at IV insertion site at beginning of Rocephin administration. eh3 Rocephin stopped, no redness, swelling, or drainage at IV site. 17:00 Reassessment: Patient appears in no apparent distress at this time. Patient and/or eh3 family updated on plan of care and expected duration. Pain level reassessed. Patient is alert, oriented x 3, equal unlabored respirations, skin warm/dry/pink. 17:15 Reassessment: R wrist IV d'cd, catheter intact, no redness swelling or drainage at eh3 site, bleeding controlled, pressure dressing applied. 18:05 Reassessment: Attempted to call report to 4th floor, nurse busy, will call back. [facility] 18:27 Reassessment: Nurse to nurse report called to Edith on 4th floor. [facility] Vital Signs: 12:08 BP 132 / 48; Pulse 68; Resp 16; Temp 97.9(TE); Pulse Ox 95% on R/A; Weight 60.33 kg; [facility] Height 5 ft. 0 in. (152.40 cm); 12:40 Temp 99.1(O); [facility] 13:00 BP 126 / 55; Pulse 59; Resp 16; Pulse Ox 96% on R/A; 3 14:00 BP 144 / 53; Pulse 65; Resp 17; Pulse Ox 98% on R/A; 3 15:00 BP 122 / 57; Pulse 60; Resp 18; Pulse Ox 97% on R/A; 3 16:00 BP 132 / 52; Pulse 62; Resp 17; Pulse Ox 98% on R/A; 3 17:00 BP 152 / 55; Pulse 65; Resp 15; Pulse Ox 97% on R/A; eh3 12:08 Body Mass Index 25.97 (60.33 kg, 152.40 cm) eh3 Vitals: 13:00 Cardiac Rhythm Assessment Sinus ramya. eh3 ED Course: 11:53 Patient arrived in ED. am2 11:53 [place] Tripp MD is Private Physician. am2 12:06 Umesh Miller MD is Attending Physician. kdr 12:08 Hannah Alarcon RN is Primary Nurse. eh3 12:10 Triage completed. eh3 12:10 Arm band placed on. eh3 12:12 Patient has correct armband on for positive identification. Bed in low position. Call eh3 light in reach. Side rails up X2. Adult w/ patient. Pulse ox on. NIBP on. Door closed. Noise minimized. Warm blanket given. 12:40 COVID-19/FLU A+B Sent. eh3 13:31 No provider procedures requiring assistance completed. eh3 14:15 Straight cath inserted, using sterile technique, 18 Fr. Specimen obtained. Returned eh3 cloudy urine. Patient tolerated well. 14:19 XRAY Chest (1 view) In Process Unspecified. EDMS 15:04 Diet: Patient given snack. Patient given water. Tolerated well. eh3 15:18 attempted to initiate a transfer to [facility]/ per Ayaz flores they will have to decline the patient they do not have a bed at this time. 16:33 Chato Nolasco is Hospitalizing Provider. kdr 17:30 Inserted saline lock: 22 gauge in right forearm, using aseptic technique. eh3 Administered Medications: 14:59 Drug: Aspirin Chewable Tablet 324 mg Route: PO; eh3 16:24 Follow up: Response: No adverse reaction eh3 17:35 Drug: Rocephin - (cefTRIAXone) 1 grams Route: IVPB; Infused Over: 30 mins; Site: right 3 forearm; 17:48 Follow up: Response: No adverse reaction; IV Status: Completed infusion; IV Intake: [id number] Medication: 13:31 VIS not applicable for this client. eh3 Intake: 17:48 IV: 50ml; Total: 50ml. eh3 Outcome: 15:18 ER care complete, transfer ordered by . kdr 16:34 Decision to Hospitalize by Provider. kdr 19:11 Patient left the ED. ss Signatures: Dispatcher [employer] EDMS Umesh Miller MD MD [facility] Arlene Arreola RN RN Haritha Montoya Elizabeth eb Hall, Erin, NAINA RN 3 Corrections: (The following items were deleted from the chart) 12:29 12:28 Adult fever workup initiated per nursing protocol. [place] [id number] 13:27 13:26 Cardiac Rhythm Assessment Sinus ramya [place] [id number] 13:27 13:26 BP 126 / 55; Pulse 59bpm; Resp 16bpm; Pulse Ox 96% RA; [facility] 17:50 17:48 Inserted saline lock: 22 gauge in right forearm, using aseptic technique. [place] [id number]
--- NOTE | 2022-03-12 15:19 | EDPHYS ---
Physician Documentation [facility] Name: Eva Haskins Age: 81 yrs Sex: Female : 1940 Arrival Date: 03/12/2022 Time: 11:53 Bed 12 Private MD: [place] Tripp ED Physician Umesh Miller HPI: 03/12 19:26 This 81 yrs old Female presents to ER via Ambulatory with complaints of Cough, kdr Cold Symptoms. 19:26 The patient or guardian reports cough, that is intermittent, described as mild, kdr difficulty breathing, flu symptoms. Onset: The symptoms/episode began/occurred gradually, 3 day(s) ago. Severity of symptoms: At their worst the symptoms were mild, in the emergency department the symptoms are unchanged. The patient has not experienced similar symptoms in the past. The patient has not recently seen a physician. Historical: - Allergies: 12:10 Iodine; eh3 12:10 Levofloxacin; eh3 - Home Meds: 13:27 glipizide 5 mg oral tab once daily [Active]; metoprolol tartrate 50 mg oral tab 2 times eh3 per day [Active]; pentoxifylline 400 mg Oral TbER 1 tab 3 times per day [Active]; losartan 100 mg oral tab 1 tab once daily [Active]; clopidogrel 75 mg oral tab 1 tab once daily [Active]; benzonatate 200 mg oral cap 1 cap 3 times per day [Active]; cetirizine 10 mg oral tab 1 tab once daily [Active]; potassium chloride 10 mEq Oral cpER 1 cap 2 times per day [Active]; citalopram 20 mg tab 1 tab once daily [Active]; furosemide 40 mg Oral tab 1 tab 2 times per day [Active]; alendronate 70 mg oral tab 1 tab once wkly [Active]; - PMHx: 12:10 Diabetes - NIDDM; Hyperlipidemia; Hypertension; Myocardial infarction; TIA; eh3 - Immunization history:: Adult Immunizations up to date. - Social history:: Smoking status: Patient denies any tobacco usage or history of. Patient/guardian denies using alcohol. ROS: 19:26 Constitutional: Negative for fever, chills, and weight loss, Eyes: Negative for injury, kdr pain, redness, and discharge, Neck: Negative for injury, pain, and swelling, Cardiovascular: Negative for chest pain, palpitations, and edema, Abdomen/GI: Negative for abdominal pain, nausea, vomiting, diarrhea, and constipation, Back: Negative for injury and pain, : Negative for injury, bleeding, discharge, and swelling, MS/Extremity: Negative for injury and deformity, Skin: Negative for injury, rash, and discoloration, Neuro: Negative for headache, weakness, numbness, tingling, and seizure activity. Psych: Negative for depression, anxiety, suicide ideation, homicidal ideation, and hallucinations, Allergy/Immunology: Negative for hives, rash, and allergies, Endocrine: Negative for neck swelling, polydipsia, polyuria, polyphagia, and marked weight changes, Hematologic/Lymphatic: Negative for swollen nodes, abnormal bleeding, and unusual bruising. 19:26 Respiratory: Positive for cough, with white sputum, dyspnea on exertion, shortness of breath, on exertion. Exam: 19:26 Constitutional: This is a well developed, well nourished patient who is awake, alert, kdr and in no acute distress. Head/Face: Normocephalic, atraumatic. Eyes: Pupils equal round and reactive to light, extra-ocular motions intact. Lids and lashes normal. Conjunctiva and sclera are non-icteric and not injected. Cornea within normal limits. Periorbital areas with no swelling, redness, or edema. Neck: Trachea midline, no thyromegaly or masses palpated, and no cervical lymphadenopathy. Supple, full range of motion without nuchal rigidity, or vertebral point tenderness. No Meningismus. Chest/axilla: Normal chest wall appearance and motion. Nontender with no deformity. No lesions are appreciated. Cardiovascular: Regular rate and rhythm with a normal S1 and S2. No gallops, murmurs, or rubs. Normal PMI, no JVD. No pulse deficits. Respiratory: Lungs have equal breath sounds bilaterally, clear to auscultation and percussion. No rales, rhonchi or wheezes noted. No increased work of breathing, no retractions or nasal flaring. Abdomen/GI: Soft, non-tender, with normal bowel sounds. No distension or tympany. No guarding or rebound. No evidence of tenderness throughout. Back: No spinal tenderness. No costovertebral tenderness. Full range of motion. Skin: Warm, dry with normal turgor. Normal color with no rashes, no lesions, and no evidence of cellulitis. MS/ Extremity: Pulses equal, no cyanosis. Neurovascular intact. Full, normal range of motion. Neuro: Awake and alert, GCS 15, oriented to person, place, time, and situation. Cranial nerves II-XII grossly intact. Motor strength 5/5 in all extremities. Sensory grossly intact. Cerebellar exam normal. Normal gait. Psych: Awake, alert, with orientation to person, place and time. Behavior, mood, and affect are within normal limits. Vital Signs: 12:08 BP 132 / 48; Pulse 68; Resp 16; Temp 97.9(TE); Pulse Ox 95% on R/A; Weight 60.33 kg; eh3 Height 5 ft. 0 in. (152.40 cm); 12:40 Temp 99.1(O); eh3 13:00 BP 126 / 55; Pulse 59; Resp 16; Pulse Ox 96% on R/A; eh3 14:00 BP 144 / 53; Pulse 65; Resp 17; Pulse Ox 98% on R/A; eh3 15:00 BP 122 / 57; Pulse 60; Resp 18; Pulse Ox 97% on R/A; eh3 16:00 BP 132 / 52; Pulse 62; Resp 17; Pulse Ox 98% on R/A; eh3 17:00 BP 152 / 55; Pulse 65; Resp 15; Pulse Ox 97% on R/A; eh3 12:08 Body Mass Index 25.97 (60.33 kg, 152.40 cm) 3 MDM: 15:18 Patient medically screened. kdr 19:26 Data reviewed: vital signs, nurses notes, lab test result(s), radiologic studies. kdr Consideration of Admission/Observation Patient was admitted/placed on observation. Escalation of care including admission/observation considered. Management of patient was discussed with the following: Hospitalist: Dr. Nolasco. 03/12 12:33 Order name: COVID-19/FLU A+B; Complete Time: 14:40 3 03/12 12:58 Order name: Basic Metabolic Panel; Complete Time: 14:40 kdr 03/12 12:58 Order name: CBC with Diff; Complete Time: 14:40 kdr 03/12 12:58 Order name: NT PRO-BNP; Complete Time: 14:40 kdr 03/12 12:58 Order name: Troponin HS; Complete Time: 14:40 kdr 03/12 12:58 Order name: XRAY Chest (1 view); Complete Time: 16:29 kdr 03/12 12:58 Order name: EKG; Complete Time: 12:59 kdr 03/12 13:17 Order name: Urine Dipstick-Ancillary; Complete Time: 14:40 EDMS 03/12 14:17 Order name: Urine Microscopic Only; Complete Time: 16:29 ss 03/12 14:22 Order name: Urine Dipstick-Ancillary; Complete Time: 14:40 EDMS 03/12 17:22 Order name: Diet Ada 1800 Osmany; Complete Time: 17:22 eh3 03/12 12:58 Order name: Cardiac monitoring; Complete Time: 13:26 kdr 03/12 12:58 Order name: EKG - Nurse/Tech; Complete Time: 13:26 kdr 03/12 12:58 Order name: IV Saline Lock; Complete Time: 13:26 kdr 03/12 12:58 Order name: Labs collected and sent; Complete Time: 13:26 kdr 03/12 12:58 Order name: O2 Per Protocol; Complete Time: 13:17 kdr 03/12 12:58 Order name: O2 Sat Monitoring; Complete Time: 13:17 kdr 03/12 12:59 Order name: Urine Dipstick-Ancillary (obtain specimen); Complete Time: 13:17 eh3 03/12 13:32 Order name: Cath; Complete Time: 14:18 eh3 Administered Medications: 14:59 Drug: Aspirin Chewable Tablet 324 mg Route: PO; eh3 16:24 Follow up: Response: No adverse reaction 3 17:35 Drug: Rocephin - (cefTRIAXone) 1 grams Route: IVPB; Infused Over: 30 mins; Site: right [facility] forearm; 17:48 Follow up: Response: No adverse reaction; IV Status: Completed infusion; IV Intake: [id number] Disposition Summary: 03/12/22 16:34 Hospitalization Ordered Hospitalization Status: Inpatient Admission kdr Provider: Chato Nolasco Location: Telemetry/MedSurg (Inpatient) kdr Condition: Fair(03/12/22 16:34) kdr Problem: new(03/12/22 16:34) kdr Symptoms: are unchanged(03/12/22 16:34) kdr Bed/Room Type: Standard kdr Room Assignment: [id number](03/12/22 17:35) dw Diagnosis - Subsequent non-ST elevation (NSTEMI) myocardial infarction(03/12/22 16:34) kdr - SARS-associated coronavirus as the cause of diseases classified elsewhere(03/12/22 kdr 16:34) - Cough kdr - UTI/ Urinary tract infection, site not specified kdr Forms: - Medication Reconciliation Form kdr - SBAR form kdr Signatures: Dispatcher [employer] EDMS Ingris Ruby RN RN Umesh Miller MD MD kdr Hannah Alarcon RN RN 3 Corrections: (The following items were deleted from the chart) 13:00 12:59 EKG - Nurse/Tech ordered. eh3 eh3 16:32 15:18 Dr. Courtney kdr kdr 16:32 15:18 [facility] kdr kdr 16:32 15:18 Higher level of care kdr kdr 16:32 15:18 Fair kdr kdr 16:32 15:18 new kdr kdr 16:32 15:18 are unchanged kdr kdr 16:32 15:18 Subsequent non-ST elevation (NSTEMI) myocardial infarction kdr kdr 16:32 15:18 SARS-associated coronavirus as the cause of diseases classified elsewhere kdr kdr 16:32 15:18 Viral infection, unspecified kdr kdr 17:35 16:34 kdr dw
[2022-03-12] MEDS ORDERED: CEFTRIAXONE 1000 MG/VIAL ONE (16:57)
[2022-03-12] MEDS ORDERED: NA CHLORIDE 0.9% 50 ML IV ONE (16:57)
--- NOTE | 2022-03-12 17:48 | P.HP ---
Certification for Inpatient Patient admitted to: Observation With expected LOS: >2 Midnights Practitioner: I am a practitioner with admitting privileges, knowledge of patient current condition, hospital course, and medical plan of care. Services: Services provided to patient in accordance with Admission requirements found in Title 42 Section 412.3 of the Code of Federal Regulations Patient History Date of Service: 03/12/22 Reason for admission: Elevated troponin History of Present Illness: 81-year-old woman with a history of coronary artery disease status post triple bypass, cardiac stent, history of peripheral vascular disease status post femoral stent presented to the ED due to flulike symptoms, nasal congestion, and cough of about 2 weeks duration. Patient tested positive for COVID-19. She has been vaccinated for COVID. Her troponin noted to be elevated in the ED. EKG demonstrated sinus bradycardia with nonspecific ST-T change. Patient is stable on room air with good oxygen saturation. Chest x-ray shows no acute disease. ED provider is concerned about NSTEMI. Patient is hospitalized for further evaluation and management. She denies any chest pain or shortness of breath. Allergies levofloxacin [From Levaquin] Allergy (Verified 10/27/14 15:08) Nausea/Vomiting IODINE; IODINE CONTAINING Allergy (Uncoded 05/15/14 22:46) Unknown Home Medications: Atorvastatin Calcium [Lipitor*] 20 mg PO DAILY 07/03/18 Benzonatate [Tessalon Perle*] 100 mg PO BIDP PRN 07/03/18 Brimonidine [Alphagan P 0.15%*] 1 drop EACH EYE BID 07/03/18 Cetirizine HCl 10 mg PO DAILY 07/03/18 Citalopram [Celexa*] 10 mg PO DAILY 07/03/18 Ketoconazole 1 chris TOP PRN 07/03/18 Latanoprost/Pf [Latanoprost 0.005% Eye Drop] 1 drop EACH EYE BEDTIME 07/03/18 Losartan/Hydrochlorothiazide [Hyzaar 100-25 Tablet] 1 tab PO DAILY 07/03/18 Metoprolol Tartrate [Lopressor*] 50 mg PO BID 07/03/18 Timolol 0.5% Opth [Timoptic 0.5% Opth*] 1 drop EACH EYE BID 07/03/18 glipiZIDE [Glucotrol*] 5 mg PO BIDWM 07/03/18 Furosemide [Lasix] 20 mg PO DAILY 30 Days #30 tablet 09/16/20 - Past Medical/Surgical History Diabetic: Yes -: Diabetes - NIDDM -: Hyperlipidemia -: Hypertension -: CAD S/P CABG -: TIA -: asthma -: bronchitis -: Glaucoma -: PVD -: Triple Bypass -: Heart stents -: Leg Stents Psychosocial/ Personal History: Patient is retired, lives with family - Family History Mother -: Heart disease Father -: Liver disease Brother -: Diabetes, Liver disease - Social History Alcohol use: No CD- Drugs: No Caffeine use: Yes Review of Systems Other: Except as documented, and other systems reviewed and negative. Physical Examination - Physical Exam General: Alert, In no apparent distress, Oriented x3 HEENT: PERRLA, Mucous membr. moist/pink, EOMI, Sclerae nonicteric Neck: Supple, JVD not distended, No Thyromegaly Respiratory: Clear to auscultation bilaterally, Normal air movement Cardiovascular: No edema, Regular rate/rhythm, Normal S1 S2, No murmurs Capillary refill: <2 Seconds Gastrointestinal: Normal bowel sounds, Soft and benign, Non-distended, No tenderness Musculoskeletal: No swelling, No tenderness Integumentary: No rashes, No cyanosis Neurological: Normal strength at 5/5 x4 extr, Cranial nerves 3-12 intact Lymphatics: No axilla or inguinal lymphadenopathy - Studies Laboratory Data (last 24 hrs) 03/12/22 13:26: WBC 11.80 H, Hgb 12.3, Hct 37.1, Plt Count 184 03/12/22 13:26: Sodium 139, Potassium 3.4 L, BUN 26 H, Creatinine 1.12 H, Glucose 117 H Assessment and Plan - Problems (Diagnosis) (1) NSTEMI (non-ST elevated myocardial infarction) Current Visit: Yes Status: Acute (2) COVID-19 virus infection Current Visit: Yes Status: Acute (3) CAD (coronary artery disease) Onset Date: 02/22/16 Current Visit: No Status: Chronic Qualifiers: Coronary Disease-Associated Artery/Lesion type: [place] artery [place] vs. transplanted heart: [place] heart Associated angina: without angina Qualified Code(s): I25.10 - Atherosclerotic heart disease of [place] coronary artery without angina pectoris (4) Diabetes mellitus Onset Date: 02/10/16 Current Visit: No Status: Chronic Qualifiers: Diabetes mellitus type: type 2 Diabetes mellitus retirement insulin use: with retirement use Diabetes mellitus complication status: without complication Qualified Code(s): E11.9 - Type 2 diabetes mellitus without complications; Z79.4 - longterm (current) use of insulin; Z79.4 - intermediate card tender (current) use of insulin; Z79.4 - longterm (current) use of insulin; Z79.4 - longterm (current) use of insulin (5) Hypertension Onset Date: 02/22/16 Current Visit: No Status: Chronic Qualifiers: Hypertension type: essential hypertension Qualified Code(s): I10 - Essential (primary) hypertension - Plan Placed under observation on the medical floor. Elevated troponin likely secondary to demand ischemia versus myocarditis from COVID-19 infection Continue to trend troponin. Continue home dose Plavix, add aspirin Lipitor. Obtain echocardiogram Cardiology consult. We will consult and continue home medication. Continue glipizide, added insulin sliding scale for glucose management. Continue pentoxifylline 4 peripheral vascular disease No lower respiratory symptoms from the COVID-19. No indication for steroid. She is stable on room air. - Advance Directives Does patient have a Living Will: No Does patient have a Durable POA for Healthcare: No
[2022-03-12] MEDS ORDERED: NITROGLYCERIN 0.4 MG/TAB SL PRN (18:38)
[2022-03-12] MEDS ORDERED: MORPHINE 2 MG/ML SYR IV PRN (18:38)
[2022-03-12] MEDS ORDERED: ACETAMINOPHEN 500 MG TAB PO PRN (18:38)
[2022-03-12] MEDS ORDERED: CETIRIZINE HCL 5 MG TABLET PO PRN (18:38)
[2022-03-12] MEDS: INSULIN -REGULAR HUMAN 50 UNIT/0.5 ML ML SQ SCH (19:44)
[2022-03-12] MEDS: PENTOXIFYLLINE ER 400 MG TAB PO SCH (20:37)
[2022-03-12] MEDS: METOPROLOL TAR 50 MG TAB PO SCH (20:37)
[2022-03-12 23:29] VITALS: BMI 40.4
[2022-03-13 06:11] LABS: Absolute Lymphocytes (CBC) 0.7 K/uL (0.7-4.9); Lymphocytes % 11.2 % (15.3-44.8); MCV 82.2 fL (80-100); MPV 9.2 fL (7.6-11.3); RBC Red Blood Cell Count 3.89 M/uL (3.86-4.86)
[2022-03-13 06:40] LABS: Potassium 2.5 mmol/L (3.5-5.1)
[2022-03-13] MEDS: KCL 20 MEQ/100 mL IVPB 20 MEQ/100 ML BAG IV SCH ×3 (07:00→11:58)
[2022-03-13] MEDS: INSULIN -REGULAR HUMAN 50 UNIT/0.5 ML ML SQ SCH ×4 (07:30→19:42)
[2022-03-13] MEDS: glipiZIDE 5 MG TAB PO SCH ×2 (08:22→16:24)
[2022-03-13] MEDS: FUROSEMIDE 40 MG TABLET PO SCH ×2 (08:22→16:24)
[2022-03-13] MEDS: PENTOXIFYLLINE ER 400 MG TAB PO SCH ×3 (08:22→16:24)
[2022-03-13] MEDS: METOPROLOL TAR 50 MG TAB PO SCH ×2 (08:23→19:43)
[2022-03-13] MEDS ORDERED: LOSARTAN POTASSIUM 50 MG TABLET PO SCH (09:00)
[2022-03-13] MEDS ORDERED: ENOXAPARIN 30 MG/0.3 ML SQ SCH (09:00)
[2022-03-13] MEDS ORDERED: CLOPIDOGREL 75 MG TABLET PO SCH (09:00)
[2022-03-13] MEDS ORDERED: CITALOPRAM 10 MG TABLET PO SCH (09:00)
[2022-03-13] MEDS ORDERED: ASPIRIN EC 81 MG TAB PO SCH (09:00)
[2022-03-13] MEDS ORDERED: NA CHLORIDE 0.9% 250 ML ONE ×2 (10:05→12:00)
[2022-03-13] MEDS ORDERED: PNEUMOCOCCAL VACCINE 0.5 ML IMVAC ONE (12:00)
--- NOTE | 2022-03-13 12:23 | P.DS ---
Admission Date: 03/12/22 Discharge Date: 03/13/22 Disposition: ROUTINE DISCHARGE Discharge Condition: FAIR Reason for Admission: Elevated troponin - Problems (1) NSTEMI (non-ST elevated myocardial infarction) Current Visit: Yes Status: Acute (2) COVID-19 virus infection Current Visit: Yes Status: Acute (3) CAD (coronary artery disease) Onset Date: 02/22/16 Current Visit: No Status: Chronic Qualifiers: Coronary Disease-Associated Artery/Lesion type: [place] artery [place] vs. 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 Patient tested positive for COVID-19. She has been vaccinated for COVID. Her troponin noted to be elevated in the ED. EKG demonstrated sinus bradycardia with nonspecific ST-T change. Patient stable on room air with good oxygen saturation. Chest x-ray shows no acute disease. She denies any chest pain or shortness of breath. ED provider was concerned about NSTEMI. Patient was hospitalized for further evaluation and management. Hospital Course: Patient placed under observation on the medical floor. Troponin trended flat. Patient was asymptomatic during the hospitalist stay. No ACS. Her potassium level was low which was repleted. Patient is asymptomatic from the COVID 19 infection. Vitals are stable. Case discussed with Dr. Vela who will follow with patient in the office. Vital Signs/Physical Exam: Temp Pulse Resp BP Pulse Ox 98.6 F 69 20 174/89 H 90 L 03/13/22 04:00 03/13/22 08:23 03/13/22 04:00 03/13/22 08:23 03/13/22 04:00 General: Alert, In no apparent distress, Oriented x3 HEENT: Mucous membr. moist/pink Neck: Supple, JVD not distended Respiratory: Clear to auscultation bilaterally, Normal air movement Cardiovascular: No edema, Regular rate/rhythm, Normal S1 S2 Gastrointestinal: Normal bowel sounds, Soft and benign, Non-distended, No tenderness Neurological: Normal strength at 5/5 x4 extr Laboratory Data at Discharge: WBC 6.20 K/uL (4.3-10.9) 03/13/22 05:50 Hgb 10.8 g/dL (12.0-15.0) L D 03/13/22 05:50 Hct 32.0 % (36.0-45.0) L 03/13/22 05:50 Plt Count 145 K/uL (152-406) L 03/13/22 05:50 Sodium 140 mmol/L (136-145) 03/13/22 05:50 Potassium 2.5 mmol/L (3.5-5.1) L* D 03/13/22 05:50 BUN 25 mg/dL (7-18) H 03/13/22 05:50 Creatinine 0.78 mg/dL (0.55-1.02) 03/13/22 05:50 Glucose 102 mg/dL (74-106) 03/13/22 05:50 Triglycerides 132 mg/dL (<150) 03/12/22 18:52 Cholesterol 160 mg/dL (<200) 03/12/22 18:52 HDL Cholesterol 57 mg/dL (40-60) 03/12/22 18:52 Cholesterol/HDL Ratio 2.81 03/12/22 18:52 Home Medications: Atorvastatin Calcium [Lipitor*] 20 mg PO DAILY 07/03/18 Benzonatate [Tessalon Perle*] 100 mg PO BIDP PRN 07/03/18 Brimonidine [Alphagan P 0.15%*] 1 drop EACH EYE BID 07/03/18 Cetirizine HCl 10 mg PO DAILY 07/03/18 Citalopram [Celexa*] 10 mg PO DAILY 07/03/18 Ketoconazole 1 chris TOP PRN 07/03/18 Latanoprost/Pf [Latanoprost 0.005% Eye Drop] 1 drop EACH EYE BEDTIME 07/03/18 Losartan/Hydrochlorothiazide [Hyzaar 100-25 Tablet] 1 tab PO DAILY 07/03/18 Metoprolol Tartrate [Lopressor*] 50 mg PO BID 07/03/18 Timolol 0.5% Opth [Timoptic 0.5% Opth*] 1 drop EACH EYE BID 07/03/18 glipiZIDE [Glucotrol*] 5 mg PO BIDWM 07/03/18 Clopidogrel Bisulfate [Plavix*] 75 mg PO DAILY 03/13/22 Furosemide [Lasix*] 40 mg PO BIDL tab 03/13/22 Pentoxifylline 400 mg PO TID #90 tab 03/13/22 New Medications: Pentoxifylline 400 mg PO TID #90 tab Diet: AHA Activity: Ad jadon Followup: Patricia Vidales MD [Primary Care Provider] - 1-2 Weeks Mert Eason MD [ACTIVE - CAN ADMIT] - 1-2 Weeks
[2022-03-13] MEDS ORDERED: POTASSIUM CL SA 10 MEQ TAB PO ONE (16:10)
[2022-03-13 19:42] VITALS: BP 144/61; TEMP 97
[2022-03-13 19:48] VITALS: O2SAT 95
[2022-03-14] MEDS ORDERED: ENOXAPARIN 40 MG/0.4 ML SQ SCH (09:00)
== END 2022-03-13 20:15 | disposition home or self-care (01) ==
LOC: ER 11:52 → ERHOLD 17:24 → 4TH 18:27
PROVIDERS: ADMIT Internal Medicine; ATTEND Internal Medicine
DX: I21.4 Non-ST elevation (NSTEMI) myocardial infarction (principal); U07.1 COVID-19; I73.9 Peripheral vascular disease, unspecified; I25.10 Atherosclerotic heart disease of native coronary artery without angina pectoris; I25.2 Old myocardial infarction; E11.9 Type 2 diabetes mellitus without complications; E78.5 Hyperlipidemia, unspecified; I10 Essential (primary) hypertension; Z91.09 Other allergy status, other than to drugs and biological substances; Z95.5 Presence of coronary angioplasty implant and graft; Z88.1 Allergy status to other antibiotic agents; Z23 Encounter for immunization; Z86.73 Personal history of transient ischemic attack (TIA), and cerebral infarction without residual deficits
CPT/HCPCS: 85025 ×2; 80048 ×2; 36415; 84132; 80061; 82947 ×5; 84484 ×3; 83880; 0240U; 71045; 94760 ×2; 51702; 96374; 99284; J3480 ×3; J1650; J7050 ×2; 81003; 81015; 93005; G0378; J2270

== ENCOUNTER 2022-03-24 14:07 | Emergency (ER) | payer OTHER ==
--- OUTSIDE RECORDS SUMMARY | 2022-03-24 14:24 | XMS REPORT | Continuity of Care Document ---
:1940 Author Organization [facility] t Address [address] [place] [address] Care Team Providers Name Role Phone Shante_[place] Tripp Primary Care Physician Unavailable Mari Abreu Attending Clinician Unavailable [place] Tripp Attending Clinician Unavailable Giuseppe Jose Attending Clinician Luis Burch Attending Clinician Luis Burch Admitting Clinician Payers Payer Name Policy Type Policy Number Effective Date Expiration Date Tarah sanders EL RITO Sonja [id number] 2021 Common [facility] 00:00:00 [facility] Problems Condition Condition Condition Status Onset Resolution [...] disease 00:00: Hospita involving involving 00 l [facility] coronary coronary artery artery Essential Essential Disease Active Met hodi hypertensi hypertensi 2-16 st on on 00:00: Hospita 00 l UNK UNK Diagnosis Active 2016-06-20 Mem oria Active 06-06 21:57:00 l 06/06/2016 00:00: [place] 00 [place] 433.10/353 433.10/35 Diagnosis Active 2012-05-17 Memoria 01 301 Active 05-02 14:33:00 l 05/02/2012 00:00: Mckinley MORTON 00 [facility] 433.10, 433.10, Diagnosis Active 2012-04-18 Memoria CAROTID CAROTID 04-18 16:00:00 l ARTERY ARTERY 00:00: [place] STENOSIS STENOSIS 00 Active 04/18/2012 [facility] CAROTID CAROTID Diagnosis Active 2012-05-10 Memoria STENOSIS STENOSIS 04-18 21:43:00 l Active 00:00: [place] 04/18/2012 00 [facility] OTHER OTHER Diagnosis Active 2012-04-19 Me moria Active 04-18 00:54:00 l 04/18/2012 00:00: [place]in[place] cotton 00 [facility] [id number] Age-relate Problem Com mon d Spirit osteoporos - [facility]I is without [facility] pathologic Medica l al Center fracture Peripheral PAD Problem Commo n vascular (periphera Spir it disease l artery - CHI disease) [facility] Aortic Nonrheumat Problem Commo n valve ic aortic Spirit disorder (valve) - CHI stenosis [facility] Acute on Acute on Problem Commo n chronic chronic Spirit combined combined - CHI systolic systolic [facility] diastolic diastolic [facility] heart congestive Center failure heart failure [id number] Primary Problem Comm on osteoarthr Spirit itis of - CHI right hip [facility] [id number] Encounter Problem Com mon for Spirit suspected - CHI COVID-19 [facility] Tinea Athlete's Problem Common pedis foot on Spirit left - CHI [facility] Mixed Depression Problem Commo n anxiety with Spirit and anxiety - CHI depressive [facility] Seasonal Allergic Problem Commo n allergic rhinitis, Spiri t rhinitis seasonal - CHI [facility] Pain Pain Problem Common Spirit [facility] Hammer toe Hammer toe Problem C ommon Spirit - [facility] Mixed Hyperlipid Problem Commo n hyperlipid emia, Spirit emia mixed [facility] Anemia due Anemia, Problem Comm on to blood blood loss Spir it loss - CHI [facility] 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 - CH I [facility] Ulcer Ulcer Problem Common Spirit - [facility] Cataract Cataract Problem Commo n Spirit - CHI [facility] Diabetes Diabetes Problem Commo n mellitus DMII Spirit without without - CHI complicati complicati [facility] on [facility] Glaucoma Glaucoma Problem Commo n Spirit - [facility] Hypertensi Hypertensi Problem C ommon on on Spirit - CHI [facility] Degenerati Degenerati Problem C ommon on of on of Spirit lumbosacra lumbosacra - CHI l l St interverte interverte Anuja kes bral disc bral disc [facility] Center 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) [facility] [id number] Controlled Problem Co mmon type 2 Spirit diabetes - CHI mellitus [facility] diabetic [facility] peripheral Center angiopathy without gangrene, without long-term current use of insulin 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 - CHI disease of [facility] coronary [facility] artery Center without angina pectoris Claudicati Claudicati Problem C ommon on on Spirit CHI [facility] Gastroesop GERD Problem Commo n hageal (gastroeso Spirit reflux phageal - CHI disease reflux St disease) [facility] Vitamin Vitamin Problem Common B12 B12 Spirit deficiency deficiency - [facility] Vitamin D Vitamin D Problem Com mon deficiency deficiency Sp sherly - [facility] [id number] Hypertensi Problem Co mmon ve urgency [facility] [id number] Type 2 Problem Common diabetes Spirit mellitus - CHI with other [facility] kidney Medical complicati Center on Seasonal Seasonal Problem Commo n allergy allergies [facility] [id number] Onychomyco Problem Co mmon sis Spirit CHI [facility] [id number] Dermatitis Problem Co mmon of left [facility] foot [facility] Age-relate Osteoporos Problem C ommon d is without Spirit osteoporos current - CHI is pathologic [facility] fracture, Medical unspecifie Center d osteoporos is type [id number] Stress and Problem Co mmon adjustment Spirit reaction - [facility] [id number] Skin ulcer Problem Com mon of left Spirit foot, - CHI limited to [facility] of skin Medical Center [id number] Atheroscle Problem Co mmon rosis of Spirit [facility] - [facility]I artery of [facility] extremity Medical with Center intermitte nt claudicati on, unspecifie d laterality [id number] Aortic Problem Common valve Spirit stenosis, - CHI etiology [facility] cardiac [facility] valve Medical disease Center unspecifie d [id number] Hair loss Problem Com mon Spirit - CHI [facility] [id number] Calcaneal Problem Co mmon 13026 spur, left [facility] Pain in Pain of Problem Common limb left foot [facility] [id number] Acute Problem Common systolic Spirit congestive - CHI heart failure [facility] [id number] Recurrent Problem Com mon falls [facility] Memory Memory Problem Common loss loss [facility] Decreased Decreased Problem Com mon hearing hearing [facility] [id number] Decline in Problem Co mmon verbal Spirit memory - [facility] 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 - CHI with other diabetic [facility] kidney Medical complicati Center on, without long-term current use of insulin Hypertensi Hypertensi Problem C ommon ve heart ve heart Spirit disease disease - CHI with with congestive congestive [facility] heart heart Medical failure failure Center [id number] Need for Problem Comm on assistance Spirit due to - CHI unsteady [facility] DM - DM - Problem Resolve 2012-04-28 Wilfrid mendy Diabetes Diabetes d 08:59:09 l mellitus mellitus Mckinley n Resolved Problem 04/28/2012 [facility] Hyperchole Hyperchol Problem Resolve 2012-04-28 Memoria sterolemia esterolemi d 08:59:09 l a Resolved [place]ckinley n Problem 04/28/2012 [facility] Hypertensi Hypertens Problem Resolve 2012-04-28 Memoria on ion d 08:59:09 l Resolved [place] Problem 04/28/2012 [facility] Limping Limping Problem Active 2021-04-29 Me duffy (finding) (finding) 21:54:55 l Active [place] Problem 04/29/2021 Walter [facility] Cough Cough Problem Active 2021-04-29 Caty teran (finding) (finding) 21:54:55 l Active Christopher Problem 04/29/2021 [facility] Diabetes Diabetes Problem Active 2021-04-29 Memoria mellitus mellitus 21:54:55 l (disorder) (disorder) Deven rmann Active Problem 04/29/2021 [facility] Difficulty Difficult Problem Active 2021-04-29 Memoria breathing y 21:54:55 l (finding) breathing Herm shannan (finding) Active Problem 04/29/2021 [facility] [place] Problem Active 2021-04-29 Wilfrid mendy (finding) (finding) 21:54:55 l Active [place] Problem 04/29/2021 [facility] Hyperlipid Hyperlipi Problem Active 2021-04-29 Memoria emia demia 21:54:55 l (disorder) (disorder) He rmann Active Problem 04/29/2021 [facility] Impaired Impaired Problem Active 2021-04-29 Memoria cognition cognition 21:54:55 l (finding) (finding) Herm shannan Active Problem 04/29/2021 [facility] CAROTID CAROTID Diagnosis Active 2012-05-10 Memoria SINUS SINUS 21:43:00 l SYNDROME SYNDROME Mckinley n Active [facility] EMBOLISM EMBOLISM Diagnosis Active 2016-06-20 Memoria AND AND 21:57:00 l THROMBOSIS THROMBOSIS He rmann OF OF ARTERIES ARTERIES OF T OF T Active [facility] ATHSCL ATHSCL Diagnosis Active 2016-06-20 Me moria [employer] 21:57:00 l ARTERIES ARTERIES Mckinley n OF EXTRM W OF EXTRM W INTRMT INTRMT Active [facility] Pure Pure Problem Resolve 2021-04-29 2021-04-29 Memoria hyperchole hyperchole d - 21:54:55 21:54:55 l sterolemia sterolemia 00:00: He rmann (disorder) (disorder) 00 Resolved 03/04/2013 Problem 04/29/2021 [facility] Essential Essential Problem Resolve 2021-04-29 2021-04-29 Memoria hypertensi hypertensi d - 21:54:55 21:54:55 l on on 00:00: Christopher (disorder) (disorder) 00 Resolved 05/21/2012 Problem 04/29/2021 [facility] Transient Transient Problem Resolve 2021-04-29 2021-04-29 Memoria ischemic ischemic d 1-01 21:54:55 21:54:55 l attack attack 00:00: Christopher (disorder) (disorder) 00 Resolved 02/13/2010 Problem 04/29/2021 [facility] Allergies, Adverse Reactions, Alerts Allergy Allergy Status Severity Reaction(s) Onset Inactive Treating Comm ents Source Name Type Date Date Clinician Amoxicil Propensi Active Other (See Chest Me thodi spike-Pot ty to Comments) 04-[address] Clavulan adverse 00:00: Hospita ate reaction 00 l s to drug Iodine Propensi Active Methodi ty to 2-16 st adverse 00:00: Hospita reaction 00 l s to drug Levoflox Propensi Active Method i acin ty to 16 st adverse 00:00: Hospita reaction 00 l s to drug Bactrim Bactrim Active Memoria l [place] iodine iodine Active Memoria l Christopher 10257 Drug Active Unknown Common allergy [facility] 94487 Drug Active Unknown Common allergy [facility] Social History Social Habit Start Date Stop Date Quantity Comments Source History of Common Spirit - Tobacco Use [facility] Tobacco use and 2017-03-31 2017-03-31 Smokeless tobacco Me thodist exposure 00:00:00 00:00:00 non-user Hospital Social History 2016-06-08 2016-06-08 [facility] [place] agudeloshannan 12:53:59 12:53:59 Sex [birth year] [employer] 00:00:00 00:00:00 Hospital Smoking Status Start Date Stop Date Source Never Smoker [facility] Medications Ordered Filled Start Stop Current Ordering [...] 00 30 tab, 4 [Aricept] Refill(s), Pharmacy: [facility], 147.32, cm, 02/26/21 11:29: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 if still anxious, # 5 tab, 0 Refill(s), Pharmacy: [facility], 149.86, cm, 01/22/21 11:15:00 QUALITY OFFICER, Height, 64.091, kg, 01/22/21 11:15:00 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 if still anxious, # 5 tab, 0 Refill(s), Pharmacy: [facility], 149.86, cm, 01/22/21 11:15:00 QUALITY OFFICER, Height, 64.091, kg, 01/22/21 11:15:00 QUALITY OFFICER, Weight Furosemide 2020-02 Yes 20 mg = 1 Me moria 20 MG Oral 2-10 tab, PO, l Tablet 17:26: Daily, 0 Christopher 00 Refill(s) Tylenol 2020-02 Yes PO, 0 Memoria 2-10 Refill(s) l 17:26: Christopher 00 Furosemide 2020-02 Yes 20 mg = 1 Me moria 20 MG Oral 2-10 tab, PO, l Tablet 17:26: Daily, 0 Christopher 00 Refill(s) Tylenol 2020-02 Yes PO, 0 Memoria 2-10 Refill(s) l 17:26: [place] 00 cetirizine 2020-02 Yes 10 mg = 1 Me moria 10 mg oral 2-10 cap, PO, l capsule 17:25: Daily, 0 Mckinley n Refill(s) cetirizine 2020-02 Yes 10 mg = 1 Me moria 10 mg oral 2-10 cap, PO, l capsule 17:25: Daily, 0 Mckinley n 00 Refill(s) losartan 2020-02 Yes 100 mg = 1 Mem oria 100 mg oral 2-10 tab, PO, l tablet 17:23: Daily, 0 Christopher 00 Refill(s) losartan 2020-02 Yes 100 mg = 1 Mem oria 100 mg oral 2-10 tab, PO, l tablet 17:23: Daily, 0 [place] 00 Refill(s) Glipizide 5 2020-02 Yes 5 mg = 1 Me moria MG Oral 2-10 tab, PO, l Tablet 17:22: Daily, 0 Christopher Refill(s) Glipizide 5 2020-02 Yes 5 mg = 1 Me moria MG Oral 2-10 tab, PO, l Tablet 17:22: Daily, 0 Christopher 00 Refill(s) Neomycin-Po Neomycin-Po No 4{drops BID Neomycin-P lymyxin-HC lymyxin-HC 4-02 _into_a olymyxin-H 3.-1 3.-1 00:00: ffected C 00 _ear} 3.5- 1 Neomycin-Po Neomycin-Po No 4{drops BID Neomycin-P lymyxin-HC lymyxin-HC 4-02 _into_a olymyxin-H 3.570455-3 3.5-06379-0 00:00: ffected C 00 _ear} 3.5-- Neomycin-Po Neomycin-Po No 4{drops BID Neomycin-P lymyxin-HC lymyxin-HC 4-02 _into_a olymyxin-H 3.5-84787-7 3.5-23531-2 00:00: ffected C 00 _ear} 3.5-22411- 1 Neomycin-Po Neomycin-Po 2021-0 No 4{drops BID Neomycin-P lymyxin-HC lymyxin-HC 4-02 _into_a olymyxin-H 3.5-31049-8 3.5-03418-4 00:00: ffected C 00 _ear} 3.5-80546- 1 Neomycin-Po Neomycin-Po 2021-0 No 4{drops BID Neomycin-P lymyxin-HC lymyxin-HC 4-02 _into_a olymyxin-H 3.5-27784-9 3.5-63052-8 00:00: ffected C 00 _ear} 3.5-72375- 1 Neomycin-Po Neomycin-Po 2021-0 No 4{drops BID Neomycin-P lymyxin-HC lymyxin-HC 4-02 _into_a olymyxin-H 3.5-19906-2 3.5-08513-5 00:00: ffected C 00 _ear} 3.5-79784- 1 Neomycin-Po Neomycin-Po 2021-0 No 4{drops BID Neomycin-P lymyxin-HC lymyxin-HC 4-02 _into_a olymyxin-H 3.5-40631-3 3.5-85763-1 00:00: ffected C 00 _ear} 3.5-07712- 1 Neomycin-Po Neomycin-Po 2021-0 No 4{drops BID Neomycin-P lymyxin-HC lymyxin-HC 4-02 _into_a olymyxin-H 3.5-52282-9 3.5-96246-5 00:00: ffected C 00 _ear} 3.5-44525- 1 Neomycin-Po Neomycin-Po 2021-0 No 4{drops BID Neomycin-P lymyxin-HC lymyxin-HC 4-02 _into_a olymyxin-H 3.5-76287-1 3.5-36524-5 00:00: ffected C 00 _ear} 3.5-12729- 1 Neomycin-Po Neomycin-Po 2021-0 No 4{drops BID Neomycin-P lymyxin-HC lymyxin-HC 4-02 _into_a olymyxin-H 3.5-83281-9 3.5-65687-0 00:00: ffected C 00 _ear} 3.5-62345- 1 Neomycin-Po Neomycin-Po 2021-0 No 4{drops BID Neomycin-P lymyxin-HC lymyxin-HC 4-02 _into_a olymyxin-H 3.5-48330-2 3.5-00517-2 00:00: ffected C 00 _ear} 3.5-73889- 1 Neomycin-Po Neomycin-Po 2021-0 No 4{drops BID Neomycin-P lymyxin-HC lymyxin-HC 4-02 _into_a olymyxin-H 3.5-16734-2 3.5-08078-4 00:00: ffected C 00 _ear} 3.5-37938- 1 Neomycin-Po Neomycin-Po 2021-0 No 4{drops BID Neomycin-P lymyxin-HC lymyxin-HC 4-02 _into_a olymyxin-H 3.5-83124-9 3.5-98429-8 00:00: ffected C 00 _ear} 3.5-92355- 1 Neomycin-Po Neomycin-Po 2021-0 No 4{drops BID Neomycin-P lymyxin-HC lymyxin-HC 4-02 _into_a olymyxin-H 3.596262-5 3.5-54218-8 00:00: ffected C 00 _ear} 3.5-69363- 1 Neomycin-Po Neomycin-Po 2021-0 No 4{drops BID Neomycin-P lymyxin-HC lymyxin-HC 4-02 _into_a olymyxin-H 3.521329-0 3.5-39854-0 00:00: ffected C 00 _ear} 3.5-85456- 1 Neomycin-Po Neomycin-Po 2021-0 No 4{drops BID Neomycin-P lymyxin-HC lymyxin-HC 4-02 _into_a olymyxin-H 3.5-03245-1 3.5-23964-2 00:00: ffected C 00 _ear} 3.5-32548- 1 Neomycin-Po Neomycin-Po 2021-0 No 4{drops BID Neomycin-P lymyxin-HC lymyxin-HC 4-02 _into_a olymyxin-H 3.5-33321-3 3.5-47394-4 00:00: ffected C 00 _ear} 3.5- 1 Neomycin-Po Neomycin-Po 2020-0 No 4{drops BID Neomycin-P lymyxin-HC lymyxin-HC 4-02 _into_a olymyxin-H 3.553038-8 3.556612-0 00:00: ffected C 00 _ear} 3.5- Neomycin-Po Neomycin-Po 2020-0 No 4{drops BID Neomycin-P lymyxin-HC lymyxin-HC 4-02 _into_a olymyxin-H 3.507414-2 3.566963-7 00:00: ffected C 00 _ear} 3.5- Neomycin-Po Neomycin-Po 2020- No 4{drops BID Neomycin-P lymyxin-HC lymyxin-HC 4-02 _into_a olymyxin-H 3.536141-7 3.575089-6 00:00: ffected C 00 _ear} 3.5- Albuterol [...] (90 Base) MCG/ACT MCG/ACT MCG/ACT Albuterol Albuterol 0 No 2{puffs Albuterol Sulfate HFA Sulfate HFA 1-21 } Sulfate 108 (90 108 (90 00:00: HFA 108 Base) Base) 00 (90 Base) MCG/ACT MCG/ACT MCG/ACT Albuterol Albuterol 0 No 2{puffs Albuterol Sulfate HFA Sulfate HFA [...] (90 Base) MCG/ACT MCG/ACT MCG/ACT Albuterol Albuterol 0 No 2{puffs Albuterol Sulfate HFA Sulfate HFA 1-21 } Sulfate 108 (90 108 (90 00:00: HFA 108 Base) Base) 00 (90 Base) MCG/ACT MCG/ACT MCG/ACT Albuterol Albuterol 0 No 2{puffs Albuterol Sulfate HFA Sulfate HFA 1-21 } Sulfate 108 (90 108 (90 00:00: HFA 108 Base) Base) 00 (90 Base) MCG/ACT MCG/ACT MCG/ACT Albuterol Albuterol 0 No 2{puffs Albuterol Sulfate HFA Sulfate HFA 1-21 } Sulfate 108 (90 108 (90 00:00: HFA 108 Base) Base) 00 (90 Base) MCG/ACT MCG/ACT MCG/ACT Albuterol Albuterol 0 No 2{puffs Albuterol Sulfate HFA Sulfate HFA 1-21 } Sulfate 108 (90 108 (90 00:00: HFA 108 Base) Base) 00 (90 Base) MCG/ACT MCG/ACT MCG/ACT Albuterol Albuterol 0 No 2{puffs Albuterol Sulfate HFA Sulfate HFA 1-21 } Sulfate 108 (90 108 (90 00:00: HFA 108 Base) Base) 00 (90 Base) MCG/ACT MCG/ACT MCG/ACT Albuterol Albuterol 0 No 2{puffs Albuterol Sulfate HFA Sulfate HFA 1-21 } Sulfate 108 (90 108 (90 00:00: HFA 108 Base) Base) 00 (90 Base) MCG/ACT MCG/ACT MCG/ACT Albuterol Albuterol 0 No 2{puffs Albuterol Sulfate HFA Sulfate HFA 1-21 } Sulfate 108 (90 108 (90 00:00: HFA 108 Base) Base) 00 (90 Base) MCG/ACT MCG/ACT MCG/ACT Pantoprazol Pantoprazol 2019-0 No 1{table QD Pantoprazo e Sodium 40 e Sodium 40 9-23 t} le Sodium MG MG 00:00: 40 MG 00 Pantoprazol Pantoprazol No 1{table QD Pantoprazo e [...] MG 00:00: 40 MG 00 Pantoprazol Pantoprazol No 1{table QD Pantoprazo e Sodium 40 e Sodium 40 9-23 t} le Sodium MG MG 00:00: 40 MG 00 Pantoprazol Pantoprazol No 1{table QD Pantoprazo e Sodium 40 e Sodium 40 9-23 t} le Sodium MG MG 00:00: 40 MG 00 Pantoprazol Pantoprazol No 1{table QD Pantoprazo e Sodium 40 e Sodium 40 9-23 t} le Sodium MG MG 00:00: 40 MG 00 Pantoprazol Pantoprazol No 1{table QD Pantoprazo e Sodium 40 e Sodium 40 9-23 t} le Sodium MG MG 00:00: 40 MG 00 Pantoprazol Pantoprazol No 1{table QD Pantoprazo e Sodium 40 e Sodium 40 9-23 t} le Sodium MG MG 00:00: 40 MG 00 Losartan Losartan Yes Na Tripp 1 tablet Common Potassium Potassium 6-22 Spiri t 00:00: - [facility] Flonase Flonase Yes Na Tripp 1 spray in Common 8-29 each Spirit 00:00: nostril - [facility] Flonase 50 Flonase 50 No 1{spray QD Flonase 50 MCG/ACT MCG/ACT 829 _in_eac MCG/ACT 00:00: h_nostr il} Flonase 50 Flonase 50 No 1{spray QD Flonase 50 MCG/ACT MCG/ACT 829 _in_eac MCG/ACT 00:00: h_nostr il} Flonase 50 Flonase 50 No 1{spray QD Flonase 50 MCG/ACT MCG/ACT 829 _in_eac MCG/ACT 00:00: h_nostr il} Flonase 50 Flonase 50 No 1{spray [...] a 42 l pentoxifyll 2018-0 Yes 400mg Q.[id number] Take 400 Methodi ine 2-[id number] (TRENTal) 17:42: 3D mouth [...] tablet 11:42: daily. Hospit a 42 l aspirin 2018-0 Yes 81mg QD [...] a 42 l pentoxifyll 2018-0 Yes 400mg Q.[id number] Take 400 Methodi ine 2-[id number] (TRENTal) 11:42: 3D mouth [...] MG 11:42: daily. Hospita tablet 42 l losartan-hy 2018-0 Yes 2{tbl} QD [...] 11:42: nightly. Hospita tablet 42 l metoprolol 2017-0 Yes 50mg Q.5D Take 50 mg M ethodi tartrate 2-[address] (LOPRESSOR) 11:42: (two) Hospi ta 50 mg 42 times a l tablet day. clopidogrel 2018-0 Yes 75mg QD Take 75 mg Methodi (PLAVIX) 75 2-[address] mg tablet 11:42: daily. Hospit a 42 l pentoxifyll 2018-0 Yes 400mg Q.[id number] Take 400 Methodi ine 2-[id number] (TRENTal) 11:42: 3D mouth [...] tablet 42 l benzonatate 2018-0 Yes 100mg Q.[id number] Take 1 Methodi (TESSALON) 2-[id number] 100 MG 00:00: 3D (100 mg Hospita capsule 00 total) by l mouth 3 (three) times a day as needed for cough for up to 60 doses. benzonatate 2018-0 Yes 100mg Q.[id number] Take 1 Methodi (TESSALON) 2-[id number] 100 MG 00:00: 3D (100 mg Hospita capsule 00 total) by l mouth 3 (three) times a day as needed for cough for up to 60 doses. benzonatate Yes 100mg Q.[id number] Take 1 Methodi (TESSALON) 2-[id number] 100 MG 00:00: 3D (100 mg Hospita capsule 00 total) by l mouth 3 (three) times a day as needed for cough for up to 60 doses. Ferrlecit No Notes: Memori a 5- (sodium l 13:55: ferric [place] 00 gluconate complex (elemental iron) 62.5 mg/5 ml INJ) "Limited stability. Use immediatel y after admixture" (Same as: Ferrlecit) MEDICATION WASTE Product Size: 62.5 mg Product Wasted: ___ mg Ferrlecit No Notes: Memori a 5- (sodium l 13:55: ferric Christopher 00 gluconate complex (elemental iron) 62.5 mg/5 ml INJ) "Limited stability. Use immediatel y after admixture" (Same as: Ferrlecit) MEDICATION WASTE Product Size: 62.5 mg Product Wasted: ___ mg Timolol 5 No Notes: Memori a MG/ML 4-30 (Same As: l Ophthalmic 22:00: Timoptic, He rmann Solution 00 Betimol) Timolol 5 No Notes: Memori a MG/ML 4-30 (Same As: l Ophthalmic 22:00: Timoptic, He rmann Solution 00 Betimol) Brimonidine No Notes: Wilfrid menyd tartrate 4-30 Non-formul l 1.5 MG/ML 14:00: nito. (Same He rmann Ophthalmic 00 as: Solution Alphagan-P ) Brimonidine No Notes: Wilfrid mendy tartrate 4-30 Non-formul l 1.5 MG/ML 14:00: nito. (Same He rmann Ophthalmic 00 as: Solution Alphagan-P ) Atropine [...] ick, Nitrostat) "Do Not Crush" Sublingual tablet Atropine No 0.5 mg, 5 Wilfrid mendy 4-30 mL, Route: l 03:37: IVP, Drug Christopher form: INJ, PRN, Dosing Weight 66.818, kg, [...] at room temperatur e for 6 weeks latanoprost No Notes: Wilfrid mendy 0.05 MG/ML 4-30 Keep l Ophthalmic 02:00: refrigerat H ermann Solution 00 ed. (Same as:Xalatan ) Opened bottle may be stored at room temperatur e for 6 weeks Ferrlecit No Notes: Memori a 4-29 (sodium l 18:45: ferric Christopher 00 gluconate complex (elemental iron) 62.5 mg/5 ml INJ) "Limited stability. Use immediatel y after admixture" (Same as: Ferrlecit) MEDICATION WASTE Product Size: 62.5 mg Product Wasted: ___ mg Ferrlecit No Notes: Memori a 4-29 (sodium l 18:45: ferric Christopher 00 gluconate complex (elemental iron) 62.5 mg/5 ml INJ) "Limited stability. Use immediatel y after admixture" (Same as: Ferrlecit) MEDICATION WASTE Product Size: 62.5 mg Product Wasted: ___ mg Plavix No Notes: Memoria 4-29 (Same As: l 14:00: Plavix) Plavix No Notes: Memoria 4-29 (Same As: [...] oria 4-28 tab, l 14:00: Route: PO, [place] 00 Drug form: TAB, Daily, Dosing Weight 66.818, kg, Start date: 06/10/16 9:00:00 CDT, Duration: 30 day, Stop date: 07/09/16 9:00:00 CDT hydrochloro No Notes: Wilfrid mendy thiazide 25 4-28 (Same as: l mg oral 14:00: Hydrodiuri Herm shannan tablet 00 l) With food. Cozaar No Notes: Memoria 4-28 (Same as: l 14:00: Cozaar) Hydrochloro No 1 tab, Wilfrid mendy thiazide 25 4-28 Route: PO, l MG / 14:00: Drug Form: [place] Losartan 00 TAB, Potassium Dosing 100 MG Oral Weight Tablet 66.818, kg, Daily, Start date: 06/10/16 9:00:00 CDT, Duration: 30 day, Stop date: 07/09/16 9:00:00 CDT Lasix No Notes: Memoria 4-28 (Same as: l 14:00: Lasix) Citalopram No 10 mg, 1 Mem oria 4-28 tab, l 14:00: Route: PO, [place] 00 Drug form: TAB, Daily, Dosing Weight 66.818, kg, Start date: 06/10/16 9:00:00 CDT, Duration: 30 day, Stop date: 07/09/16 9:00:00 CDT hydrochloro No Notes: Wilfrid mendy thiazide 25 4-28 (Same as: l mg oral 14:00: Hydrodiuri Herm shannan tablet 00 l) With food. Cozaar No Notes: Memoria 4-28 (Same as: l 14:00: Cozaar) [place] 00 sodium No 250 mL, Memoria chloride 4-28 Rate: On l 0.9% INJ 11:30: call for Jackelyn nn 250 mL 00 use with blood product administra tion, Dosing Weight 66.818, kg, Route: IV, Total Volume: 250, Start Date: 06/10/16 6:30:00 CDT, Duration: 1 day, Stop date: 06/11/16 6:29:00 CDT, Replace Every: 24 hr sodium No 250 mL, Memoria chloride - Rate: On l 0.9% INJ 11:30: call for Jackelyn nn 250 mL 00 use with blood product administra tion, Dosing Weight 66.818, kg, Route: IV, Total Volume: 250, Start Date: 06/10/16 6:30:00 CDT, Duration: 1 day, Stop date: 06/11/16 6:29:00 CDT, Replace Every: 24 hr Alprazolam No Notes: Memor ia 0.5 MG Oral 4-28 With food l Tablet 04:18: or milk [place] [Xanax] 00 (Same as: Xanax) Alprazolam No Notes: Memor ia 0.5 MG Oral 4-28 With food l Tablet 04:18: or milk [place] [Xanax] 00 (Same as: Xanax) Symbicort No Notes: Memori a 160/4.5 4-28 (Same as: l inhalation 02:00: Symbicort) H ermann aerosol 00 WASTE: with Aerosol - adapter Return to Pharmacy atorvastati No Notes: Wilfrid mendy n 4-28 (Same As: l 02:00: Lipitor) Christopher 00 insulin, No Notes: Memoria isophane 06-10 Roll in l 02:00: palms of [place] 00 hands gently; Do not shake vigorously . (Same as: NovoLIN N, Humulin N) Do not hold insulin without contacting prescriber "single patient use only" WASTE: F/P - Black; E - Municipal Trash Bin Stable for 14 days at room temperatur e Expires in days from ____Date Symbicort No Notes: Memori a 160/4.5 06-10 (Same as: l inhalation 02:00: Symbicort) H ermann aerosol 00 WASTE: with Aerosol - adapter Return to Pharmacy atorvastati No Notes: Wilfrid mendy n 06-10 (Same As: l 02:00: Lipitor) [place] 00 insulin, No Notes: Memoria isophane 06-10 Roll in l 02:00: palms of [place] 00 hands gently; Do not shake vigorously . (Same as: NovoLIN N, Humulin N) Do not hold insulin without contacting prescriber "single patient use only" WASTE: F/P - Black; E - Municipal Trash Bin Stable for 14 days at room temperatur e Expires in days from ____Date Dextrose No 25 mL, Memoria 50% Syringe 06-09 Route: l 14:55: IVP, Christopher Dosing Weight 66.818, kg, PRN, PRN Blood Glucose Results, Start date: 06/09/16 9:55:00 CDT, Duration: 30 day, Stop date: 07/09/16 9:54:00 CDT Glucagon No 1 mg, Memoria 06-09 Route: IM, l 14:55: PRN, Christopher Dosing Weight 66.818, kg, PRN Blood Glucose Results, Start date: 06/09/16 9:55:00 CDT, Duration: 30 day, Stop date: 07/09/16 9:54:00 CDT Dextrose 0 No 25 mL, Memoria 50% Syringe 06-09 Route: l 14:55: IVP, Christopher Dosing Weight 66.818, kg, PRN, PRN Blood [...] NOT capsular SHAKE) antigen before diphtheria administra POS855 tion. protein (Same as: conjugate Prevnar vaccine / 13) Streptococc us pneumoniae serotype 14 capsular antigen diphtheria [id number] protein conjugate vaccine / Streptococc us pneumoniae serotype 18C capsular antigen d metoprolol No Notes: Memor ia tartrate 06-09 (Same as: l 14:00: Lopressor) Streptococc No Notes: Wilfrid mendy us 06-09 Lightly l pneumoniae 14:00: roll vial He rmann serotype 1 00 (DO NOT capsular SHAKE) antigen before diphtheria administra LAT214 tion. protein (Same as: conjugate Prevnar vaccine / 13) Streptococc us pneumoniae serotype 14 capsular antigen diphtheria [id number] protein conjugate vaccine / Streptococc us pneumoniae serotype 18C capsular antigen d Lovenox No Notes: Memoria 06-09 (Same as: l 11:00: Lovenox) Lovenox No Notes: Memoria 06-09 (Same as: l 11:00: Lovenox) Insulin, No Notes: Memoria Aspart, 06-09 Roll in l Human 02:44: palms of hands gently; Do not shake vigorously . (Same as: NovoLOG) "single patient use only" WASTE: F/P - Black; E - Municipal Trash Bin Stable for 28 days at room temperatur e. Expires in days from ____Date Dextrose 2017-0 No 25 gm, 50 Wilfrid mendy 50% Syringe 4-27 mL, Route: l 02:44: IVP, Drug [place] 00 Form: INJ, Dosing Weight 66.818, kg, PRN, PRN Blood Glucose Results, Start date: 06/08/16 21:44:00 CDT, Duration: 30 day, Stop date: 07/08/16 21:43:00 CDT Glucagon 2017-0 No 1 mg, Memoria 06-09 Route: IM, l 02:44: Drug form: [place] 00 PDR/INJ, PRN, Dosing Weight 66.818, kg, PRN Blood Glucose Results, Start date: 06/08/16 21:44:00 CDT, Duration: 30 day, Stop date: 07/08/16 21:43:00 CDT Insulin, 2016-0 No Notes: Memoria Aspart, 06-09 Roll in l Human 02:44: palms of [place] hands gently; Do not shake vigorously . (Same as: NovoLOG) "single patient use only" WASTE: F/P - Black; E - Municipal Trash Bin Stable for 28 days at room temperatur e. Expires in days from ____Date Dextrose 2017-0 No 25 gm, 50 Wilfrid mendy 50% Syringe 4-27 mL, Route: l 02:44: IVP, Drug [place] 00 Form: INJ, Dosing Weight 66.818, kg, PRN, PRN Blood Glucose Results, Start date: 06/08/16 21:44:00 CDT, Duration: 30 day, Stop date: 07/08/16 21:43:00 CDT Glucagon 2016-0 No 1 mg, Memoria 06-09 Route: IM, l 02:44: Drug form: Christopher 00 PDR/INJ, PRN, Dosing Weight 66.818, kg, PRN Blood Glucose Results, Start date: 06/08/16 21:44:00 CDT, Duration: 30 day, Stop date: 07/08/16 21:43:00 CDT Labetalol 2016-0 No Notes: Memori a 4-26 (Same as: l 19:46: Normodyne, [place] 00 Trandate) Push over 2 minutes Give bolus over 2-3 minutes. Labetalol 2016- No Notes: Memori a 4-26 (Same as: l 19:46: Normodyne, [place] 00 Trandate) Push over 2 minutes Give bolus over 2-3 minutes. Hydralazine No Notes: Wilfrid mendy 4-26 (Same as: l 19:45: Apresoline [place] 00 ) Push over 5 minutes Hydralazine 0 No Notes: Wilfrid mendy 4-26 (Same as: l 19:45: Apresoline [place] 00 ) Push over 5 minutes Hydralazine No Notes: Wilfrid mendy 4-26 (Same as: l 18:51: Apresoline [place] 00 ) Push over 5 minutes Hydralazine No Notes: Wilfrid mendy 4-26 (Same as: l 18:51: Apresoline [place] 00 ) Push over 5 minutes glycopyrrol No Route: IV, Memoria ate (ANES) 06-08 Drug form: l 16:45: INJ, ONCE, Stop date: 06/08/16 11:45:00 CDT neostigmine 0 No Route: IV, Memoria (ANES) 06-08 Drug form: l 16:45: INJ, ONCE, [place] 00 Stop date: 06/08/16 11:45:00 CDT glycopyrrol 0 No Route: IV, Memoria ate (ANES) 06-08 Drug form: l 16:45: INJ, ONCE, [place] 00 Stop date: 06/08/16 11:45:00 CDT neostigmine 2016-0 No Route: IV, Memoria (ANES) 06-08 Drug form: l 16:45: INJ, ONCE, Christopher Stop date: 06/08/16 11:45:00 CDT ondansetron 2016-0 No Route: IV, Memoria (ANES) 06-08 Drug form: l 16:44: INJ, ONCE, [place] 00 Stop date: 06/08/16 11:44:00 CDT ondansetron 0 No Route: IV, Memoria (ANES) 06-08 Drug form: l 16:44: INJ, ONCE, [place] 00 Stop date: 06/08/16 11:44:00 CDT sodium No 1,000 mL, Memori a chloride 4- Rate: 100 l 0.9% 1000 16:33: ml/hr, Mckinley n ml INJ 00 Infuse 1,000 mL over: 10 hr, Route: IV, Dosing Weight 66.818 kg, Total Volume: 1,000, Start date: 06/08/16 11:33:00 CDT, Duration: 30 day, Stop date: 07/08/16 11:32:00 CDT Morphine No Notes: Memoria 4-26 (Same l 16:33: as:MORPhin Christopher 00 e Sulfate) acetaminoph No Notes: Do M emoria en-codeine 06-08 not exceed l #3 16:33: 4gm/day of acetaminop hen. (Same as: Tylenol with Codeine # 3) sodium No 1,000 mL, Memori a chloride 26 Rate: 100 l 0.9% 1000 16:33: ml/hr, Mckinley n ml INJ 00 Infuse 1,000 mL over: 10 hr, Route: IV, Dosing Weight 66.818 kg, Total Volume: 1,000, Start date: 06/08/16 11:33:00 CDT, Duration: 30 day, Stop date: 07/08/16 11:32:00 CDT Morphine No Notes: Memoria 4- (Same l 16:33: as:MORPhin Christopher 00 e Sulfate) acetaminoph No Notes: Do M emoria en-codeine -26 not exceed l #3 16:33: 4gm/day of acetaminop hen. (Same as: Tylenol with Codeine # 3) protamine No Route: IV, Me moria (ANES) 4 Drug form: l (ANES) 16:14: INJ, Start Jackelyn nn date: 06/08/16 11:14:00 CDT, Stop date: 06/08/16 12:14:00 CDT protamine No Route: IV, Me moria (ANES) 4 Drug form: l (ANES) 16:14: INJ, Start Jackelyn 00 date: 06/08/16 11:14:00 CDT, Stop date: 06/08/16 12:14:00 CDT norepinephr No Route: IV, Memoria ine (ANES) 06-08 Drug form: l 16:04: INJ, ONCE, Stop date: 06/08/16 11:04:00 CDT norepinephr No Route: IV, Memoria ine (ANES) 06-08 Drug form: l 16:04: INJ, ONCE, Stop date: 06/08/16 11:04:00 CDT lidocaine No Route: IV, Me moria (ANES) 06-08 Drug form: l 15:55: INJ, ONCE, Stop date: 06/08/16 10:55:00 CDT rocuronium 0 No Route: IV, M emoria (ANES) 06-08 Drug form: l 15:55: INJ, ONCE, Stop date: 06/08/16 10:55:00 CDT propofol 0 No Route: IV, Mem oria (ANES) 06-08 Drug form: l 15:55: INJ, ONCE, Stop date: 06/08/16 10:55:00 CDT heparin 0 No Route: IV, Wilfrid mendy (ANES) 06-08 Drug form: l 15:55: INJ, ONCE, Stop date: 06/08/16 10:55:00 CDT lidocaine 0 No Route: IV, Me moria (ANES) 06-08 Drug form: l 15:55: INJ, ONCE, Stop date: 06/08/16 10:55:00 CDT rocuronium 0 No Route: IV, M emoria (ANES) 06-08 Drug form: l 15:55: INJ, ONCE, Stop date: 06/08/16 10:55:00 CDT propofol 2017-0 No Route: IV, Mem oria (ANES) 06-08 Drug form: l 15:55: INJ, ONCE, Stop date: 06/08/16 10:55:00 CDT heparin 2017-0 No Route: IV, Wilfrid mendy (ANES) 06-08 Drug form: l 15:55: INJ, ONCE, Stop date: 06/08/16 10:55:00 CDT fentaNYL No Route: IV, Mem oria (ANES) 06-08 Drug form: l 15:54: INJ, ONCE, Stop date: 06/08/16 10:54:00 CDT fentaNYL No Route: IV, Mem oria (ANES) 06-08 Drug form: l 15:54: INJ, ONCE, Stop date: 06/08/16 10:54:00 CDT acetaminoph No Route: IV, Memoria en (ANES) 06-08 Drug form: l (ANES) 15:45: INJ, Start Jackelyn date: 06/08/16 10:45:00 CDT, Stop date: 06/08/16 11:45:00 CDT acetaminoph No Route: IV, Memoria en (ANES) 06-08 Drug form: l (ANES) 15:45: INJ, Start Jackelyn date: 06/08/16 10:45:00 CDT, Stop date: 06/08/16 11:45:00 CDT famotidine No Route: IV, M emoria (ANES) 06-08 Drug form: l 15:39: INJ, ONCE, Stop date: 06/08/16 10:39:00 CDT methylPREDN No Route: IV, Memoria ISolone 06-08 Drug form: l (ANES) 15:39: INJ, ONCE, Stop date: 06/08/16 10:39:00 CDT diphenhydrA No Route: IV, Memoria MINE (ANES) 06-08 Drug form: l 15:39: INJ, ONCE, Stop date: 06/08/16 10:39:00 CDT famotidine No Route: IV, M emoria (ANES) 06-08 Drug form: l 15:39: INJ, ONCE, Stop date: 06/08/16 10:39:00 CDT methylPREDN No Route: IV, Memoria ISolone - Drug form: l (ANES) 15:39: INJ, ONCE, Jackelyn nn Stop date: 06/08/16 10:39:00 CDT diphenhydrA No Route: IV, Memoria MINE (ANES) 06-08 Drug form: l 15:39: INJ, ONCE, [place] 00 Stop date: 06/08/16 10:39:00 CDT norepinephr No Route: IV, Memoria ine (ANES) 06-08 Drug form: l (ANES) 15:25: INJ, Start Jackelyn nn date: 06/08/16 10:25:00 CDT, Stop date: 06/08/16 11:25:00 CDT norepinephr No Route: IV, Memoria ine (ANES) 06-08 Drug form: l (ANES) 15:25: INJ, Start Jackelyn nn date: 06/08/16 10:25:00 CDT, Stop date: 06/08/16 11:25:00 CDT vancomycin No Route: IV, M emoria (ANES) 06-08 Drug form: l (ANES) 15:01: INJ, Start Jackelyn nn date: 06/08/16 10:01:00 CDT, Stop date: 06/08/16 11:01:00 CDT vancomycin No Route: IV, M emoria (ANES) - Drug form: l (ANES) 15:01: INJ, Start Jackelyn nn date: 06/08/16 10:01:00 CDT, Stop date: 06/08/16 11:01:00 CDT sodium No Route: IV, Memor ia chloride - Total l 0.9% 1000 14:57: Volume: Jackelyn nn ml INJ 00 1,000, (ANES) Start date: 06/08/16 9:57:00 CDT, Stop date: 06/08/16 10:57:00 CDT sodium No Route: IV, Memor ia chloride - Total l 0.9% 1000 14:57: Volume: Jackelyn nn ml INJ 00 1,000, (ANES) Start date: 06/08/16 9:57:00 CDT, Stop date: 06/08/16 10:57:00 CDT ceFAZolin No Route: IV, moria (ANES) 06-08 Drug form: l (ANES) 14:51: INJ, Start Jackelyn date: 06/08/16 9:51:00 CDT, Stop date: 06/08/16 10:51:00 CDT ceFAZolin No Route: IV, Me moria (ANES) 06-08 Drug form: l (ANES) 14:51: INJ, Start Jackelyn date: 06/08/16 9:51:00 CDT, Stop date: 06/08/16 10:51:00 CDT LR 1000 mL No Route: IV, M emoria INJ (ANES) 06-08 Total l 14:30: Volume: Christopher 00 1,000, Start date: 06/08/16 9:30:00 CDT, Stop date: 06/08/16 10:30:00 CDT LR 1000 mL No Route: IV, M emoria INJ (ANES) 06-08 Total l 14:30: Volume: Christopher 00 1,000, Start date: 06/08/16 9:30:00 CDT, Stop date: 06/08/16 10:30:00 CDT Insulin No 6 unit, Memoria regular 06-08 Route: IV, l 14:10: ONCE, Dosing Weight 66.818, kg, Start date: 06/08/16 9:10:00 CDT, Stop date: 06/08/16 9:10:00 CDT Insulin No 6 unit, Memoria regular 06-08 Route: IV, l 14:10: ONCE, Dosing Weight 66.818, kg, Start date: 06/08/16 9:10:00 CDT, Stop date: 06/08/16 9:10:00 CDT Albuterol No Notes: Memori a 0.833 MG/ML 06-08 (Same as: l / 14:07: Duoneb) Christopher Ipratropium 00 [place] 0.167 MG/ML Inhalant Solution Calcium No 1,000 mL, Memor ia Chloride -26 Rate: 25 l 0.0014 14:07: ml/hr, [place] MEQ/ML / 00 Infuse Potassium over: 40 Chloride hr, Route: 0.004 IV, Dosing MEQ/ML / Weight Sodium 66.818 kg, Chloride Total 0.103 Volume: MEQ/ML / 1,000, Sodium Start Lactate date: 0.028 06/08/16 MEQ/ML 9:07:00 Injectable CDT, Solution Duration: 1 day, Stop date: 06/09/16 9:06:00 CDT Albuterol No Notes: Memori a 0.833 MG/ML 06-08 (Same as: l / 14:07: Duoneb) Christopher Ipratropium 00 [place] 0.167 MG/ML Inhalant Solution Calcium No 1,000 mL, Memor ia Chloride 26 Rate: 25 l 0.0014 14:07: ml/hr, [place] MEQ/ML / 00 Infuse Potassium over: 40 Chloride hr, Route: 0.004 IV, Dosing MEQ/ML / Weight Sodium 66.818 kg, Chloride Total 0.103 Volume: MEQ/ML / 1,000, Sodium Start Lactate date: 0.028 06/08/16 MEQ/ML 9:07:00 Injectable CDT, Solution Duration: 1 day, Stop date: 06/09/16 9:06:00 CDT Vancomycin No 2000 mg: Me moria 4-26 infuse l 12:00: over 2.5 Christopher 00 hours MEDICATION WASTE Product Size: 1000 mg Product Wasted: ___ mg Ancef No Notes: Memoria 06-08 Same as: l 12:00: Ancef Vancomycin 2016-0 No 2000 mg: Me moria 4-26 infuse l 12:00: over 2.5 [place] 00 hours MEDICATION WASTE Product Size: 1000 mg Product Wasted: ___ mg Ancef 2016- No Notes: Memoria 06-08 Same as: l 12:00: Ancef Morphine 2016-0 No 2 mg, Memoria 4 Route: l 17:29: IVP, Q3H, Dosing Weight 68.636, kg, PRN Pain Score 1-3, Start date: 06/03/16 12:29:00 CDT, Duration: 30 day, Stop date: 07/03/16 12:28:00 CDT acetaminoph 2017-0 No 2 tab, Wilfrid mendy en-codeine - Route: PO, l #3 17:29: Drug Form: [place] 00 TAB, Dosing Weight 68.636, kg, Q4H, PRN Pain Score 4-6, Start date: 06/03/16 12:29:00 CDT, Duration: 30 day, Stop date: 07/03/16 12:28:00 CDT Morphine 2017-0 No 2 mg, Memoria 4 Route: l 17:29: IVP, Q3H, Dosing Weight 68.636, kg, PRN Pain Score 1-3, Start date: 06/03/16 12:29:00 CDT, Duration: 30 day, Stop date: 07/03/16 12:28:00 CDT acetaminoph 2016-0 No 2 tab, Wilfrid mendy en-codeine 06-03 Route: PO, l #3 17:29: Drug Form: [place] 00 TAB, Dosing Weight 68.636, kg, Q4H, PRN Pain Score 4-6, Start date: 06/03/16 12:29:00 CDT, Duration: 30 day, Stop date: 07/03/16 12:28:00 CDT diphenhydrA No Route: IV, Memoria MINE (ANES) 06-03 Drug form: l 17:24: INJ, ONCE, Stop date: 06/03/16 12:24:00 CDT methylPREDN No Route: IV, Memoria ISolone 06-03 Drug form: l (ANES) 17:24: INJ, ONCE, Jackelyn Stop date: 06/03/16 12:24:00 CDT ondansetron No Route: IV, Memoria (ANES) 4 Drug form: l 17:24: INJ, ONCE, Stop date: 06/03/16 12:24:00 CDT fentaNYL No Route: IV, Mem oria (ANES) 06-03 Drug form: l 17:24: INJ, ONCE, Stop date: 06/03/16 12:24:00 CDT midazolam 2016-0 No Route: IV, Me moria (ANES) 06-03 Drug form: l 17:24: SOLN, [place] ONCE, Stop date: 06/03/16 12:24:00 CDT famotidine No Route: IV, M emoria (ANES) 06-03 Drug form: l 17:24: INJ, ONCE, Stop date: 06/03/16 12:24:00 CDT diphenhydrA No Route: IV, Memoria MINE (ANES) 06-03 Drug form: l 17:24: INJ, ONCE, Stop date: 06/03/16 12:24:00 CDT methylPREDN No Route: IV, Memoria ISolone 06-03 Drug form: l (ANES) 17:24: INJ, ONCE, Jackelyn Stop date: 06/03/16 12:24:00 CDT ondansetron No Route: IV, Memoria (ANES) 06-03 Drug form: l 17:24: INJ, ONCE, Stop date: 06/03/16 12:24:00 CDT fentaNYL 2016- No Route: IV, Mem oria (ANES) 06-03 Drug form: l 17:24: INJ, ONCE, Stop date: 06/03/16 12:24:00 CDT midazolam 2016-0 No Route: IV, Me moria (ANES) 06-03 Drug form: l 17:24: SOLN, ONCE, Stop date: 06/03/16 12:24:00 CDT famotidine 0 No Route: IV, M emoria (ANES) 06-03 Drug form: l 17:24: INJ, ONCE, Christopher 00 Stop date: 06/03/16 12:24:00 CDT vancomycin 2016-0 No Route: IV, M emoria (ANES) 4 Drug form: l (ANES) 17:00: INJ, Start Jackelyn date: 06/03/16 12:00:00 CDT, Stop date: 06/03/16 13:00:00 CDT vancomycin 2017-0 No Route: IV, M emoria (ANES) 4 Drug form: l (ANES) 17:00: INJ, Start Jackelyn date: 06/03/16 12:00:00 CDT, Stop date: 06/03/16 13:00:00 CDT ceFAZolin No Route: IV, Me moria (ANES) 06-03 Drug form: l (ANES) 16:47: INJ, Start Jackelyn date: 06/03/16 11:47:00 CDT, Stop date: 06/03/16 12:47:00 CDT ceFAZolin No Route: IV, Me moria (ANES) 4 Drug form: l (ANES) 16:47: INJ, Start Jackelyn date: 06/03/16 11:47:00 CDT, Stop date: 06/03/16 12:47:00 CDT LR 1000 mL No Route: IV, M emoria INJ (ANES) 06-03 Total l 16:35: Volume: [place] 00 1,000, Start date: 06/03/16 11:35:00 CDT, Stop date: 06/03/16 12:35:00 CDT LR 1000 mL No Route: IV, M emoria INJ (ANES) 06-03 Total l 16:35: Volume: [place] 00 1,000, Start date: 06/03/16 11:35:00 CDT, Stop date: 06/03/16 12:35:00 CDT Insulin No 2 unit, Memoria regular 06-03 Route: IV, l 16:03: ONCE, [place] 00 Dosing Weight 68.636, kg, Start date: 06/03/16 11:03:00 CDT, Stop date: 06/03/16 11:03:00 CDT Insulin 2016- No 2 unit, Memoria regular 06-03 Route: IV, l 16:03: ONCE, Christopher 00 Dosing Weight 68.636, kg, Start date: 06/03/16 11:03:00 CDT, Stop date: 06/03/16 11:03:00 CDT Insulin 2016- No 6 unit, Memoria regular 06-03 Route: IV, l 15:44: ONCE, Christopher Dosing Weight 68.636, kg, Start date: 06/03/16 10:44:00 CDT, Stop date: 06/03/16 10:44:00 CDT Insulin 2017-0 No 6 unit, Memoria regular -21 Route: IV, l 15:44: ONCE, Dosing Weight 68.636, kg, Start date: 06/03/16 10:44:00 CDT, Stop date: 06/03/16 10:44:00 CDT Insulin 2017-0 No 6 unit, Memoria regular 4-21 Route: IV, l 15:42: ONCE, Dosing Weight 68.636, kg, Start date: 06/03/16 10:42:00 CDT, Stop date: 06/03/16 10:42:00 CDT Insulin 2017-0 No 6 unit, Memoria regular 21 Route: IV, l 15:42: ONCE, Dosing Weight 68.636, kg, Start date: 06/03/16 10:42:00 CDT, Stop date: 06/03/16 10:42:00 CDT Lactated 2017-0 No 1,000 mL, Wilfrid mendy Ringers -21 Rate: 40 l 1,000 mL 15:41: ml/hr, Chrisotpher 00 Infuse over: 25 hr, Route: IV, Dosing Weight 68.636 kg, Total Volume: 1,000, Start date: 06/03/16 10:41:00 CDT, Duration: 30 day, Stop date: 07/03/16 10:40:00 CDT Lactated 2017-0 No 1,000 mL, Wilfrid mendy Ringers -21 Rate: 40 l 1,000 mL 15:41: ml/hr, [place] 00 Infuse over: 25 hr, Route: IV, Dosing Weight 68.636 kg, Total Volume: 1,000, Start date: 06/03/16 10:41:00 CDT, Duration: 30 day, Stop date: 07/03/16 10:40:00 CDT Vancomycin 2016-0 No 2000 mg: Me moria 4-13 infuse l 14:00: over 2.5 [place] 00 hours MEDICATION WASTE Product Size: 1000 mg Product Wasted: ___ mg Ancef 2017-0 No Notes: Memoria 4-13 Same as: l 14:00: Ancef Vancomycin No 2001 mg: Me moria 4-13 infuse l 14:00: over 2.5 [place] 00 hours MEDICATION WASTE Product Size: 1000 mg Product Wasted: ___ mg Ancef No Notes: Memoria 4-13 Same as: l 14:00: Ancef Alendronic Yes 70 mg = 1 Me moria acid 70 MG 4-13 tab, PO, 0 l Oral Tablet 13:59: Refill(s) H erm Alendronic Yes 70 mg = 1 Me [...] 0 Christopher tablet, 00 Refill(s) extended release Vitamin B12 Yes 1,000 Memor ia 1000 mcg 4-13 microgram l oral tablet 13:58: = 1 tab, [place] 00 PO, Daily, 0 Refill(s) citalopram Yes 10 mg = 1 Me moria 10 mg oral 4-13 tab, PO, l tablet 13:58: Daily, 0 [place] 00 Refill(s) GlipiZIDE Yes 10 mg = 1 Mem oria XL 10 mg 4-13 tab, PO, l oral 13:58: Daily, 0 [place] tablet, 00 Refill(s) extended release Potassium Yes 10 mEq = 1 Me moria Chloride 10 4-13 tab, PO, l MEQ 13:57: BID, 0 Christopher Extended 00 Refill(s) Release Tablet [Klor-Con] pentoxifyll Yes 400 mg = 1 Memoria ine 400 mg 4-13 tab, PO, l oral 13:57: TID, 0 [place] tablet, 00 Refill(s) extended release Potassium Yes [...] Duration: 30 day, Stop date: 05/26/12 9:00:00 isosorbide No Carol 20 mg, 1 M emoria dinitrate 04-26 [place] tab, l 18:00: s Alphonso Route: PO, Her nagel 00 Drug form: TAB, TID, Dosing Weight 69.091, kg, Start date: 04/26/12 13:00:00, Duration: 30 day, Stop date: 05/26/12 9:00:00 losartan 50 2012- Yes Taso 100 mg, 2 M emoria mg oral 3-14 Mougouris tab, PO, l tablet 16:05: Daily, 30 Mckinley n 17 tab, Substituti on Allowed, TAB losartan 50 Yes Taso 100 mg, 2 M emoria mg oral 3-14 Mougouris tab, PO, l tablet 16:05: Daily, 30 Mckinley n 17 tab, Substituti on Allowed, TAB metoprolol 0 Yes Taso 75 mg, 1.5 M emoria 50 mg oral 3-14 Mougouris tab, PO, l tablet 16:04: BID, 30 Christopehr 44 tab, Substituti on Allowed, TAB metoprolol Yes Taso 75 mg, 1.5 M emoria 50 mg oral 3-14 Mougouris tab, PO, l tablet 16:04: BID, 30 [place] 44 tab, Substituti on Allowed, TAB rosuvastati 2012-0 Yes Taso 20 mg, 2 Me moria n 10 mg 3-14 Mougouris tab, PO, l oral tablet 16:02: QPM, 30 Her nagel 51 tab, Substituti on Allowed, TAB rosuvastati 2012- Yes Taso 20 mg, 2 Me moria n 10 mg 3-14 Mougouris tab, PO, l oral tablet 16:02: QPM, 30 Her nagel 51 tab, Substituti on Allowed, TAB isosorbide 0 Yes Taso 20 mg, 1 Mem oria dinitrate 3-14 Mougouris tab, PO, l 20 mg oral 16:02: BID, 60 Herm shannan tablet 41 tab, Substituti on Allowed, TAB isosorbide Yes [...] 30 tab, Itching, Substituti on Allowed, TAB diphenhydrA 0 Yes Taso 25 mg, 1 Me moria MINE 25 mg 3-14 [place]ougouris tab, PO, l oral tablet 16:02: TID, PRN, H ermann 31 30 tab, Itching, Substituti on Allowed, TAB aspirin 325 2012-0 Yes Taso 325 mg, 1 M emoria mg tablet, 3-14 [place]ougouris tab, PO, l enteric 16:02: QAM, 30 [place] coated 25 tab, Substituti on Allowed, ECTAB aspirin 325 2012-0 Yes Taso 325 mg, 1 M emoria mg tablet, 3-14 [place]ougouris tab, PO, l enteric 16:02: QAM, 30 [place] coated 25 tab, Substituti on Allowed, ECTAB acetaminoph 2012-0 Yes Taso 1 tab, PO, Memoria en-hydrocod 3-14 Mougouris Q4H, PRN, l one 325 16:02: 30 tab, Christopher mg-5 mg 22 Pain Score oral tablet 1-3, Substituti on Allowed, Maintenanc e, TAB acetaminoph 2012- Yes Taso 1 tab, PO, Memoria en-hydrocod -14 Mougouris Q4H, PRN, l one 325 16:02: 30 tab, [place] mg-5 mg 22 Pain Score oral tablet 1-3, Substituti on Allowed, Maintenanc e, TAB isosorbide 0 No Carol 20 mg, 1 M emoria dinitrate 3-14 [place] tab, l 02:00: s [place] Route: PO, Her nagel 00 Drug form: TAB, BID, Dosing Weight 69.091, kg, Start date: 04/25/12 21:00:00, Duration: 30 day, Stop date: 05/25/12 17:00:00 Crestor 2012-0 No Carol 20 mg, 2 Wilfrid mendy -14 [place] tab, l 02:00: s [place] Route: PO, Her nagel 00 Drug form: TAB, QPM, Dosing Weight 69.091, kg, Start date: 04/25/12 21:00:00, Duration: 30 day, Stop date: 05/25/12 17:00:00 isosorbide 2012-0 No Carol 20 mg, 1 M emoria dinitrate -14 [place] tab, l 02:00: s [place] Route: PO, Her nagel 00 Drug form: TAB, BID, Dosing Weight 69.091, kg, Start date: 04/25/12 21:00:00, Duration: 30 day, Stop date: 05/25/12 17:00:00 Crestor 2012-0 No Carol 20 mg, 2 Wilfrid mendy 3-14 [place] tab, l 02:00: s [place] Route: PO, Her nagel 00 Drug form: TAB, QPM, Dosing Weight 69.091, kg, Start date: 04/25/12 21:00:00, Duration: 30 day, Stop date: 05/25/12 17:00:00 methylPREDN 2012-0 No Kowalski Lissett 20 mg, 0.5 Memoria ISolone 3-14 [place] mL, Route: l 01:20: IV, Drug form: INJ, ONCE, Start date: 04/25/12 20:20:00, Stop date: 04/25/12 20:20:00 methylPREDN 2013-0 No Kowalski Lissett 20 mg, 0.5 Memoria ISolone 3-14 [place] mL, Route: l 01:20: IV, Drug form: INJ, ONCE, Start date: 04/25/12 20:20:00, Stop date: 04/25/12 20:20:00 simvastatin 2013-0 No Kowalski Lissett 10 mg, 1 Memoria 3-13 [place] tab, l 02:00: Route: PO, Christopher 00 Drug form: TAB, Bedtime, Dosing Weight 69.091, kg, Start date: 04/24/12 21:00:00, Duration: 30 day, Stop date: 05/23/12 21:00:00 simvastatin 2012-0 No Kowalski Lissett 10 mg, 1 Memoria 3-13 [place] tab, l 02:00: Route: PO, Christopher 00 Drug form: TAB, Bedtime, Dosing Weight 69.091, kg, Start date: 04/24/12 21:00:00, Duration: 30 day, Stop date: 05/23/12 21:00:00 Benadryl 2013-0 No Sanjiv 25 mg, 1 Memor ia 3-12 Roman Catholic tab, l 09:47: Shant Route: PO, Herm shannan 00 Drug form: TAB, TID, Dosing Weight 69.091, kg, PRN Itching, Start date: 04/24/12 4:47:00, Duration: 30 day, Stop date: 05/24/12 4:46:00 Benadryl 2013-0 No Sanjiv 25 mg, 1 Memor ia 3-12 [facility] Catholic tab, l 09:47: Shant Route: PO, Herm shannan 00 Drug form: TAB, TID, Dosing Weight 69.091, kg, PRN Itching, Start date: 04/24/12 4:47:00, Duration: 30 day, Stop date: 05/24/12 4:46:00 1/2 NS 2012-0 No Taso 1,000 mL, Memori a 1,000 mL 04-23 Mougouris Rate: 50 l 00:46: ml/hr, Christopher 00 Infuse over: 20 hr, Route: IV, kg, Total Volume: 1,000, Start date: 04/22/12 19:46:00, Duration: 30 day, Stop date: 05/22/12 19:45:00 1/2 NS 2013-0 No Taso 1,000 mL, Memori a 1,000 mL 3-11 Mougouris Rate: 50 l 00:46: ml/hr, Christopher 00 Infuse over: 20 hr, Route: IV, kg, Total Volume: 1,000, Start date: 04/22/12 19:46:00, Duration: 30 day, Stop date: 05/22/12 19:45:00 Robitussin 2012-0 No Renee 200 mg, 10 Memoria 100 mg/5 mL 3-10 Abousslema mL, Route: l oral liquid 19:24: n PO, Drug He form: LIQ, Q4H, Dosing Weight 69.091, kg, Start date: 04/22/12 14:24:00, Duration: 30 day, Stop date: 05/22/12 12:00:00 Robitussin 2012-0 No Renee 200 mg, 10 Memoria 100 mg/5 mL 3-10 Abousslema mL, Route: l oral liquid 19:24: n PO, Drug He form: LIQ, Q4H, Dosing Weight 69.091, kg, Start date: 04/22/12 14:24:00, Duration: 30 day, Stop date: 05/22/12 12:00:00 potassium 2013-0 No Papo 20 mEq, M emoria chloride 3-10 Terry 100 mL, l 15:00: Route: [place] 00 IVPB, Drug form: INJ, Q2H, Start date: 04/22/12 10:00:00, Duration: 2 doses or times, Stop date: 04/22/12 12:00:00 potassium 2013-0 No Papo 20 mEq, M emoria chloride 3-10 Terry 100 mL, l 15:00: Route: [place] 00 IVPB, Drug form: INJ, Q2H, Start date: 04/22/12 10:00:00, Duration: 2 doses or times, Stop date: 04/22/12 12:00:00 Geodon 2012-0 No Erasmo 10 mg, Memoria 3-10 Terminella Route: IM, l 06:52: Drug form: Christopher 00 PDR/INJ, Q8H, PRN Anxiety, Start date: 04/22/12 0:52:00, Duration: 30 day, Stop date: 05/22/12 0:51:00 Geodon 2012-0 No Erasmo 10 mg, Memoria 3-10 [place]ella Route: IM, l 06:52: Drug form: Christopher 00 PDR/INJ, Q8H, PRN Anxiety, Start date: 04/22/12 0:52:00, Duration: 30 day, Stop date: 05/22/12 0:51:00 aspirin 325 2012-0 No Luis 325 mg, 1 Memoria mg tablet, 3- Guru tab, l enteric 15:00: Marcin Route: PO, He rmann coated 00 Drug form: ECTAB, QAM, Start date: 04/21/12 9:00:00, Duration: 30 day, Stop date: 05/20/12 9:00:00 famotidine 2012-0 No Erasmo 20 mg, 1 Me moria 3-09 [place] tab, l 15:00: Route: PO, Christopher 00 Drug form: TAB, Daily, Dosing Weight 69.091, kg, Start date: 04/21/12 9:00:00, Duration: 30 day, Stop date: 05/20/12 9:00:00 aspirin 325 2012-0 No Luis 325 mg, 1 Memoria mg tablet, 04-21 Guru tab, l enteric 15:00: Marcin Route: PO, He rmann coated 00 Drug form: ECTAB, QAM, Start date: 04/21/12 9:00:00, Duration: 30 day, Stop date: 05/20/12 9:00:00 famotidine 2012-0 No Erasmo 20 mg, 1 Me moria 3-09 [place] tab, l 15:00: Route: PO, Christopher 00 Drug form: TAB, Daily, Dosing Weight 69.091, kg, Start date: 04/21/12 9:00:00, Duration: 30 day, Stop date: 05/20/12 9:00:00 niCARdipine 2012-0 No Erasmo IV, Start Memoria 04-20 Terminella date: l 23:35: 04/20/12 Christopher 00 17:35:00, Duration: 30, 200 ml, 69.091 niCARdipine 2012-0 No Erasmo IV, Start Memoria 04-20 Terminella date: l 23:35: 04/20/12 Christopher 00 17:35:00, Duration: 30, 200 ml, 69.091 Sodium 2012-0 No Renee 1,000 mL, Memor ia Chloride 3 Abousslema Rate: 70 l 0.9% IV 21:38: n ml/hr, [place] 1,000 mL 00 Infuse over: 14.3 hr, Route: IV, kg, Total Volume: 1,000, Start date: 04/20/12 15:38:00, Stop date: 05/20/12 15:37:00 Sodium 2012-0 No Renee 1,000 mL, Memor ia Chloride - Abousslema Rate: 70 l 0.9% IV 21:38: n ml/hr, Christopher 1,000 mL 00 Infuse over: 14.3 hr, Route: IV, kg, Total Volume: 1,000, Start date: 04/20/12 15:38:00, Stop date: 05/20/12 15:37:00 Tylenol 0 No Luis 650 mg, 1 Mem oria 3-08 Guru supp, l 21:36: Marcin Route: OK, Jackelyn nn Drug form: SUPP, Q4H, PRN Fever, Start date: 04/20/12 15:36:00, Duration: 30 day, Stop date: 05/20/12 15:35:00 Tylenol 2012-0 No Luis 650 mg, 1 Mem oria 3-08 Guru supp, l 21:36: Marcin Route: OK, Jackelyn nn Drug form: SUPP, Q4H, PRN Fever, Start date: 04/20/12 15:36:00, Duration: 30 day, Stop date: 05/20/12 15:35:00 Tylenol 2012-0 No Luis 650 mg, 2 Mem oria 3-08 Guru tab, l 21:35: Marcin Route: PO, Jackelyn nn Drug form: TAB, Q4H, PRN Fever, Start date: 04/20/12 15:35:00, Duration: 30 day, Stop date: 05/20/12 15:34:00 Tylenol 2012-0 No Luis 650 mg, 2 [...] Duration: 30 day, Stop date: 05/20/12 15:32:00 Zofran 2013-0 No Luis 4 mg, 2 Memori a 3-08 Guru mL, Route: l 21:33: Marcin IVP, Drug Mckinley n 00 form: INJ, Q6H, PRN Nausea & Vomiting, Start date: 04/20/12 15:33:00, Duration: 30 day, Stop date: 05/20/12 15:32:00 morphine 2012-0 No Papo 4 mg, 2 Me moria Sulfate 3-08 Terry mL, Route: l 21:27: IV, Drug [place] 00 form: INJ, Q2H, PRN Pain Score 7-10, Start date: 04/20/12 15:27:00, Duration: 30 day, Stop date: 05/20/12 15:26:00 morphine 2012-0 No Papo 4 mg, 2 Me moria Sulfate 3-08 Terry mL, Route: l 21:27: IV, Drug Christopher 00 form: INJ, Q2H, PRN Pain Score 7-10, Start date: 04/20/12 15:27:00, Duration: 30 day, Stop date: 05/20/12 15:26:00 morphine 2013-0 No Luis 2 mg, 1 Wilfrid mendy [...] Duration: 30 day, Stop date: 05/20/12 15:23:00 morphine No Luis 2 mg, 1 Wilfrid mendy Sulfate 3-08 Guru mL, Route: l 21:24: Marcin IV, Drug [place] 00 form: INJ, Q2H, PRN Pain Score [...] date: 05/20/12 15:23:00 acetaminoph 0 No Luis 1 tab, Me moria en-hydrocod 3-08 Guru Route: PO, l one 325 21:23: Marcin Drug Form: He rmann mg-5 mg 00 TAB, Q4H, oral tablet PRN Pain Score 1-3, Start date: 04/20/12 15:23:00, Duration: 30 day, Stop date: 05/20/12 15:22:00 acetaminoph 0 No Luis 1 tab, Me moria en-hydrocod 3-08 Guru Route: PO, l one 325 21:23: Marcin Drug Form: He rmann mg-5 mg 00 TAB, Q4H, oral tablet PRN Pain Score 1-3, Start date: 04/20/12 15:23:00, Duration: 30 day, Stop date: 05/20/12 15:22:00 hydrALAZINE 0 No Luis 10 mg, 0.5 Memoria 3-08 Guru mL, Route: l 21:19: Marcin IV, Drug Christopher 00 form: INJ, Q6H, PRN Other -See Comment, Start date: 04/20/12 15:19:00, Duration: 30 day, Stop date: 05/20/12 15:18:00 hydrALAZINE 2012- No Luis 10 mg, 0.5 Memoria 3-08 Guru mL, Route: l 21:19: Marcin IV, Drug Christopher 00 form: INJ, Q6H, PRN Other -See Comment, Start date: 04/20/12 15:19:00, Duration: 30 day, Stop date: 05/20/12 15:18:00 Lactated 2012-0 No Luis 1,000 mL, Me moria Ringers 3-08 Guru Rate: 25 l Injection 15:59: Marcin ml/hr, Herm shannan IV 1,000 mL 00 Infuse over: 40 hr, Route: IV, kg, Total Volume: 1,000, Start date: 04/20/12 9:59:00, Duration: 1 day, Stop date: 04/21/12 9:58:00 Lactated 2012-0 No Luis 1,000 mL, Me moria Ringers 3-08 Guru Rate: 25 l Injection 15:59: Marcin ml/hr, Herm shannan IV 1,000 mL 00 Infuse over: 40 hr, Route: IV, kg, Total Volume: 1,000, Start date: 04/20/12 9:59:00, Duration: 1 day, Stop date: 04/21/12 9:58:00 losartan 2012-0 No Taso 100 mg, 2 Wilfrid mendy 3-08 Mougouris tab, l 15:00: Route: PO, [place] Drug form: TAB, Daily, Dosing Weight 68.182, kg, Start date: 04/20/12 9:00:00, Duration: 30 day, Stop date: 05/19/12 9:00:00 losartan 2012-0 No Taso 100 mg, 2 Wilfrid mendy 3-08 Mougouris tab, l 15:00: Route: PO, [place] 00 Drug form: TAB, Daily, Dosing Weight 68.182, kg, Start date: 04/20/12 9:00:00, Duration: 30 day, Stop date: 05/19/12 9:00:00 heparin 2012-0 No Taso 5,000 Memoria 3-08 Mougouris unit, 1 l 03:00: mL, Route: Christopher 00 SUB-Q, Drug form: INJ, Q12H, Dosing Weight 68.182, kg, Start date: 04/19/12 21:00:00, Duration: 30 day, Stop date: 05/19/12 9:00:00 latanoprost 2012-0 No Taso 1 drp, Wilfrid mendy ophthalmic 3-08 Mougouris Route: l 0.005% 03:00: OPTH, Christopher solution 00 Bedtime, Drug form: SOLN, Start date: 04/19/12 21:00:00, Duration: 30 day, Stop date: 05/18/12 21:00:00 heparin 2012-0 No Taso 5,000 Memoria 3-08 Mougouris unit, 1 l 03:00: mL, Route: [place] 00 SUB-Q, Drug form: INJ, Q12H, Dosing Weight 68.182, kg, Start date: 04/19/12 21:00:00, Duration: 30 day, Stop date: 05/19/12 9:00:00 latanoprost 2012-0 No Taso 1 drp, Wilfrid mendy ophthalmic 3-08 Mougouris Route: l 0.005% 03:00: OPTH, [place] solution 00 Bedtime, Drug form: SOLN, Start date: 04/19/12 21:00:00, Duration: 30 day, Stop date: 05/18/12 21:00:00 atropine 2012-0 No Papo 0.5 mg, 5 Memoria 3-07 Terry mL, Route: l 23:18: IVP, Drug [place] 00 form: INJ, PRN, PRN Bradycardi a, Start date: 04/19/12 17:18:00, Duration: 30 day, Stop date: 05/19/12 18:17:00 nitroglycer 2012-0 No Papo 0.4 mg, 1 Memoria in 0.4 mg 3-07 Terry tab, l sublingual 23:18: Route: SL, H ermann tablet 00 Drug form: TAB, Q5Min, PRN Chest Pain, Start date: 04/19/12 17:18:00, Duration: 30 day, Stop date: 05/19/12 18:17:00 atropine 2012-0 No Papo 0.5 mg, 5 Memoria 3-07 Terry mL, Route: l 23:18: IVP, Drug [place] 00 form: INJ, PRN, PRN Bradycardi a, [...] day, Stop date: 04/20/12 16:59:00 cefazolin + 2012-0 No Luis 1 gm, Mem oria Sodium - Guru Route: l Chloride 23:00: Marcin IVPB, [...] 3-07 Mougouris tab, l 23:00: Route: PO, [place] 00 Drug form: TAB, BID, Dosing Weight 68.182, kg, Start date: 04/19/12 17:00:00, Duration: 30 day, Stop date: 05/19/12 9:00:00 vancomycin 2012-0 No Luis 1 gm, 200 Memoria 3-07 Guru mL, Route: l 23:00: Marcin IVPB, Drug Jackelyn nn 00 form: INJ, ONCALL, Start date: 04/19/12 17:00:00, Duration: 1 day, Stop date: 04/20/12 16:59:00 cefazolin + 2012-0 No Luis 1 gm, Mem oria Sodium [...] 3-07 Mougouris tab, l 18:50: Route: PO, [place] 00 Drug form: TAB, Q8H, Dosing Weight 68.182, kg, PRN Hypertensi on, Start date: 04/19/12 12:50:00, Duration: 30 day, Stop date: 05/19/12 12:49:00 Ativan 2012-0 No Taso 1 mg, 0.5 Memori a 3-07 Mougouris mL, Route: l 18:50: INJ, Drug [place] 00 form: INJ, Q6H, Dosing Weight 68.182, kg, PRN as needed for anxiety, Start date: 04/19/12 12:50:00, Duration: 30 day, Stop date: 05/19/12 12:49:00 clonidine 2012-0 No Taso 0.1 mg, 1 Mem oria 3-07 Mougouris tab, l 18:50: Route: PO, [place] 00 Drug form: TAB, Q8H, Dosing Weight [...] Mougouris Route: IM, l 18:49: Drug form: PDR/INJ, PRN, Dosing Weight 68.182, kg, PRN Blood Glucose Results, Start date: 04/19/12 12:49:00, Duration: 30 day, Stop date: 05/19/12 13:48:00 insulin 2012-0 No Taso 1 unit, Memoria aspart 3-07 Mougouris 0.01 mL, l 18:49: Route: [place] 00 SUB-Q, Drug form: SOLN, TID-Before Meals, Dosing Weight 68.182, kg, PRN Blood Glucose Results, Start date: 04/19/12 12:49:00, Duration: 30 day, Stop date: 05/19/12 12:48:00 Dextrose 2012-0 No Taso 25 gm, 50 Wilfrid mendy 50% Syringe 3-07 Mougouris mL, Route: l 18:49: IVP, Drug Form: INJ, Dosing Weight 68.182, kg, PRN, PRN Blood Glucose Results, Start date: 04/19/12 12:49:00, Duration: 30 day, Stop date: 05/19/12 13:48:00 glucagon 2012-0 No Taso 1 mg, Memoria 3-07 Mougouris Route: IM, l 18:49: Drug form: [place] 00 PDR/INJ, PRN, Dosing Weight 68.182, kg, PRN Blood Glucose Results, Start date: 04/19/12 12:49:00, Duration: 30 day, Stop date: 05/19/12 13:48:00 insulin 2012-0 No Taso 1 unit, Memoria aspart 3-07 Mougouris 0.01 mL, l 18:49: Route: [place] 00 SUB-Q, Drug form: SOLN, TID-Before Meals, [...] 30 day, Stop date: 05/19/12 13:46:00, sob Symbicort 2012-0 No Taso 2 Memoria 160/4.5 [...] date: 04/19/12 12:25:00, Stop date: 04/19/12 12:25:00 aspirin 325 2012-0 No Luis 325 mg, M emoria mg tablet 04-19 Guru Route: PO, l 18:25: Marcin Drug form: Jackelyn nn 00 TAB, ONCE, Dosing Weight 68.182, kg, Priority: STAT, Start date: 04/19/12 12:25:00, Stop date: 04/19/12 12:25:00 hydrALAZINE 2012- No Luis 20 mg, 1 Memoria 04-19 Guru mL, Route: l 12:07: Marcin IV, Drug [place] 00 form: INJ, Q6H, Dosing Weight 68.182, kg, PRN Elevated BP, Start date: 04/19/12 6:07:00, Duration: 30 day, Stop date: 05/19/12 6:06:00, SBP >165 hydrALAZINE 2012- No Luis 20 mg, 1 Memoria 3 Guru mL, Route: l 12:07: Marcin IV, Drug [place] 00 form: INJ, Q6H, Dosing Weight 68.182, kg, PRN Elevated BP, Start date: 04/19/12 6:07:00, Duration: 30 day, Stop date: 05/19/12 6:06:00, SBP >165 brimonidine 2012- Yes Taso 1 drp, Wilfrid mendy ophthalmic 3-07 Mougouris OPTH, BID, l 0.15% 08:51: 5 ml, [place] solution 03 Substitute Allowed, SOLN brimonidine 2012- Yes Taso 1 drp, Wilfrid mendy ophthalmic 3-07 Mougouris OPTH, BID, l 0.15% 08:51: 5 ml, Christopher solution 03 Substitute Allowed, SOLN latanoprost 2012- Yes Taso 1 drp, Wilfrid mendy ophthalmic 3-07 Mougouris OPTH, l 0.005% 08:50: Bedtime, 3 Jackelyn nn solution 00 ml, Substitute Allowed, SOLN latanoprost 2012- Yes Taso 1 drp, Wilfrid mendy ophthalmic 3-07 Mougouris OPTH, l 0.005% 08:50: Bedtime, 3 Jackelyn nn solution 00 ml, Substitute Allowed, SOLN timolol 2012- Yes Taso 1 drp, Memoria ophthalmic 3-07 Mougouris OPTH, QPM, l long-acting 08:49: 5 ml, Jackelyn nn , 0.5% 18 Substitute solution Allowed, SOLN timolol Yes Taso 1 drp, Memoria ophthalmic 3-07 Mougouris OPTH, QPM, l long-acting 08:49: 5 ml, Jackelyn nn , 0.5% 18 Substitute solution Allowed, SOLN Symbicort Yes Taso 2 puff, Memor ia 160/4.5 3-07 Mougouris INHALATION l inhalation 08:47: , PRN, PRN H ermann aerosol 57 for cough, with Substituti adapter on Allowed, Maintenanc ePRN for cough Symbicort Yes Taso 2 puff, Memor ia 160/4.5 3-07 Mougouris INHALATION l inhalation 08:47: , PRN, PRN H ermann aerosol 57 for cough, with Substituti adapter on Allowed, Maintenanc ePRN for cough losartan Yes Taso 100 mg, 1 Wilfrid mendy 100 mg oral 3-07 Mougouris tab, PO, l tablet 08:45: Daily, 30 Mckinley n 29 tab, Substituti on Allowed, TAB losartan Yes Taso 100 mg, 1 Wilfrid mendy 100 mg oral 3-07 Mougouris tab, PO, l tablet 08:45: Daily, 30 Mckinley n 29 tab, Substituti on Allowed, TAB Metoprolol No Taso 50 mg, 1 Mem oria Tartrate 50 3-07 Mougouris tab, PO, l mg oral 08:44: BID, Christopher tablet 00 Substituti on Allowed Metoprolol No Taso 50 mg, 1 Mem oria Tartrate 50 3-07 Mougouris tab, PO, l mg oral 08:44: BID, Christopher tablet 00 Substituti on Allowed glyBURIDE-m Yes 2 tab, PO, Memoria etformin 5 3-07 BID, 60 l mg-500 mg 08:42: tab, [place] oral tablet 12 Substituti on Allowed, Maintenanc e, TAB glyBURIDE-m Yes 2 tab, PO, Memoria etformin 5 3-07 BID, 60 l mg-500 mg 08:42: tab, [place] oral tablet 12 Substituti on Allowed, Maintenanc e, TAB baclofen Yes Taso 10 mg, PO, Mem oria 3-07 Mougouris BID, l 08:38: Substituti [place] on Allowed baclofen Yes Taso 10 mg, PO, Mem oria 3-07 Mougouris BID, l 08:38: Substituti [place] on Allowed Saline No Papo 5 ml, Memori a Flush 0.9% -07 Terry Route: l 06:44: IVP, Drug Form: INJ, Dosing Weight 68.182, kg, PRN, PRN Line Flush, Start date: 04/19/12 0:44:00, Duration: 30 day, Stop date: 05/19/12 1:43:00 acetaminoph No Papo 650 mg, 2 Memoria en 3-07 Terry tab, l 06:44: Route: PO, [place] 00 Drug form: TAB, Q4H, Dosing Weight 68.182, kg, PRN Pain/Fever , Start date: 04/19/12 0:44:00, Duration: 30 day, Stop date: 05/19/12 0:43:00 ondansetron No Papo 4 mg, 2 Memoria 3-07 Terry mL, Route: l 06:44: IVP, Drug form: INJ, Q6H, Dosing Weight 68.182, kg, PRN Nausea & Vomiting, Start date: 04/19/12 0:44:00, Duration: 30 day, Stop date: 05/19/12 0:43:00 Sodium 2012- No Luis 1,000 mL, Wilfrid mendy Chloride 04-19 Guru Rate: 40 l 0.9% IV 06:44: Marcin ml/hr, Mckinley n 1,000 mL 00 Infuse over: 25 hr, Route: IV, kg, Total Volume: 1,000, Start date: 04/19/12 0:44:00, Duration: 30 day, Stop date: 05/19/12 0:43:00 Saline 2012- No Papo 5 ml, Memori a Flush 0.9% 04-19 Terry Route: l 06:44: IVP, Drug Christopher 00 Form: INJ, Dosing Weight 68.182, kg, PRN, PRN Line Flush, Start date: 04/19/12 0:44:00, Duration: 30 day, Stop date: 05/19/12 1:43:00 acetaminoph 2012-0 No Papo 650 mg, 2 Memoria en 3-07 Terry tab, l 06:44: Route: PO, Drug form: TAB, Q4H, Dosing Weight 68.182, kg, PRN Pain/Fever , Start date: 04/19/12 0:44:00, Duration: 30 day, Stop date: 05/19/12 0:43:00 ondansetron 2012-0 No Papo 4 mg, 2 Memoria 3-07 Terry mL, Route: l 06:44: IVP, Drug form: INJ, Q6H, Dosing Weight 68.182, kg, PRN Nausea & Vomiting, Start date: 04/19/12 0:44:00, Duration: 30 day, Stop date: 05/19/12 0:43:00 Sodium 2012-0 No Luis 1,000 mL, Wilfrid mendy Chloride 04-19 Guru Rate: 40 l 0.9% IV 06:44: Marcin ml/hr, Mckinley n 1,000 mL 00 Infuse over: 25 hr, Route: IV, kg, Total Volume: 1,000, Start date: 04/19/12 0:44:00, Duration: 30 day, Stop date: 05/19/12 0:43:00 Benadryl 2012-0 No George 50 mg, Wilfrid mendy 3-07 Mac Route: l 03:13: IVP, ONCE, Dosing Weight 68.182, kg, Priority: STAT, Start date: 04/18/12 21:13:00, Stop date: 04/18/12 21:13:00 Benadryl 2012-0 No George 50 mg, Wilfrid mendy 3-07 Mac Route: l 03:13: IVP, ONCE, Dosing Weight 68.182, kg, Priority: STAT, Start date: 04/18/12 21:13:00, Stop date: 04/18/12 21:13:00 SoluMedrol 2012-0 No George 125 mg, M emoria 3-07 Mac Route: l 03:12: IVP, ONCE, Dosing Weight 68.182, kg, Priority: STAT, Start date: 04/18/12 21:12:00, Stop date: 04/18/12 21:12:00 SoluMedrol No George 125 mg, Cricket neves 04-19 Mac Route: l 03:12: IVP, ONCE, Dosing Weight 68.182, kg, Priority: STAT, Start date: 04/18/12 21:12:00, Stop date: 04/18/12 21:12:00 Saline No Papo 5 mL, Memori a Flush 0.9% 04-19 [facility] Route: l 03:05: IVP, Drug Form: INJ, Dosing Weight 68.182, kg, Q8H, PRN Line Flush, Start date: 04/18/12 21:05:00, Duration: 30 day, Stop date: 05/18/12 21:04:00, Administer at least once every 8 hoursAdmin ister at least once every 8 hours Saline No Papo 5 mL, Memori a Flush 0.9% 04-19 [facility] Route: l 03:05: IVP, Drug Form: INJ, Dosing Weight 68.182, kg, Q8H, PRN Line Flush, Start date: 04/18/12 21:05:00, Duration: 30 day, Stop date: 05/18/12 21:04:00, Administer at least once every 8 hoursAdmin ister at least once every 8 hours Klor-Con Klor-Con Yes Na Tripp 1 tablet Common M10 M10 with food [facility] Benzonatate Benzonatate Yes Na Tripp 1 capsule Common as needed [facility] Plavix Plavix Yes Na Tripp 1 tablet Comm on [facility] Metoprolol Metoprolol Yes Na Tripp 1 tablet Common [facility] Pantoprazol Yes Na Tripp 1 tablet Common e Sodium e Sodium [facility] Aspir-81 Aspir-81 Yes Na Tripp 1 tablet Common [facility] Alendronate Alendronate Yes Na Tripp 1 tablet Common Sodium Sodium [facility] Cetirizine Cetirizine Yes Na Tripp TAKE ONE Common HCl HCl TABLET BY Spirit MOUTH ONCE - [facility] DAILY [facility] Citalopram Citalopram Yes Na Tripp take one Common Hydrobromid Hydrobromid tablet by Spirit e e mouth once - [facility] daily [facility] Alicia Vargas Yes Na Tripp 1 tablet Comm on [facility] Atorvastati Atorvastati Yes Na Tripp 1 tablet Common n Calcium n Calcium at bedtime [facility] Ketoconazol Ketoconazol Yes Na Tripp 1 Common e e applicatio Spirit n to - [facility] affected [facility] Triamcinolo Triamcinolo Yes Na Tripp 1 Common ne ne applicatio Spirit Acetonide Acetonide n to - [facility] affected [facility] Metformin Metformin Yes Na Tripp 1 tablet Common HCl HCl with a [facility] Pentoxifyll Pentoxifyll Yes Na Tripp 1 tablet Common ine ER ine ER with meals Spiri t [facility] Potassium Potassium Yes Na Tripp TAKE ONE Common Chloride Chloride TABLET BY Sp sherly [facility] ER MOUTH - [facility] TWICE [facility] GlipiZIDE GlipiZIDE Yes Na Tripp 1 tablet Common [facility] Hydrochloro Hydrochloro Yes Na Tripp TAKE 1 Common thiazide thiazide TABLET BY Sp sherly MOUTH ONCE - [facility] DAILY [facility] Cetirizine Cetirizine No Cetirizine HCl 10 MG [...] 500 MG t_with_ HCl 500 MG a_meal} Cetirizine Cetirizine No QD Cetirizine HCl 10 MG HCl 10 MG HCl 10 MG glipiZIDE 5 glipiZIDE 5 No 1{table QD glipiZIDE t} 5 Atorvastati Atorvastati No Atorvastat n Calcium n Calcium in Calcium 20 MG 20 MG 20 MG Aspir-81 81 Aspir-81 81 No 1{table [...] 70 e Sodium MG MG 70 MG Pentoxifyll Pentoxifyll No 1{table TID Pentoxifyl ine ER 400 ine ER 400 t_with_ line ER MG MG meals} 400 MG Cefdinir Cefdinir No 1{capsu BID Cefdinir [...] 500 MG t_with_ HCl 500 MG a_meal} Cetirizine Cetirizine No QD Cetirizine HCl 10 MG HCl 10 MG HCl 10 MG glipiZIDE 5 glipiZIDE 5 No 1{table QD glipiZIDE t} 5 Atorvastati Atorvastati No Atorvastat n Calcium n Calcium in Calcium 20 MG 20 MG 20 MG Aspir-81 81 Aspir-81 81 No 1{table [...] 70 e Sodium MG MG 70 MG Pentoxifyll Pentoxifyll No 1{table TID Pentoxifyl ine ER 400 ine ER 400 t_with_ line ER MG MG meals} 400 MG Cefdinir Cefdinir No 1{capsu BID Cefdinir [...] cation_ le 2 % to_affe cted_ar ea} glipiZIDE 5 glipiZIDE 5 No 1{table QD [...] 10 Mey ER 10 MEQ MEQ MEQ Benzonatate Benzonatate No TID Benzonatat 200 MG 200 MG 03-25 e 200 MG 00:00 :00 Benzonatate Benzonatate No TID Benzonatat 200 MG 200 MG 03-25 e 200 MG 00:00 :00 Immunizations Ordered Immunization Filled Immunization Date Status Commen ts Source Name Name Pneumococcal 2017-04-02 Completed [facility] 00:00:00 [facility] kim Pneumococcal 2017-04-02 Completed [facility] 00:00:00 [facility] Pneumococcal 2017-04-02 Completed [facility]ent 00:00:00 [facility] pneumococcal 2016-06-09 Completed [facility] nagel 13-valent vaccine 17:59:00 pneumococcal 2016-06-09 Completed [facility] nagel 13-valent vaccine 17:59:00 influenza virus 2012-01-15 Completed [facility] [place] vaccine, inactivated 05:53:00 influenza virus 2012-01-15 Completed [facility] [place] vaccine, inactivated 05:53:00 influenza virus 2012-01-15 Completed [facility] vaccine, inactivated 05:53:00 influenza virus 2012-01-15 Completed [facility] vaccine, inactivated 05:53:00 Hx pneumococcal 2011-10-16 Completed [facility] vaccine 04:52:00 Hx pneumococcal 2011-10-16 Completed [facility] vaccine 04:52:00 Hx pneumococcal 2011-10-16 Completed [facility] vaccine 04:52:00 Hx pneumococcal 2011-10-16 Completed [facility] vaccine 04:52:00 Vital Signs Vital Name Observation Time Observation Value Comments Source height 2022-01-13 13:00:00 60 [in_i] [facility] weight 2022-01-13 13:00:00 135.8 [lb_av] [facility] temperature 2022-01-13 13:00:00 97.1 [degF] [facility] bmi 2022-01-13 13:00:00 26.52 kg/m2 [facility] oximetry 2022-01-13 13:00:00 95 % [facility] respiratory rate 2022-01-13 13:00:00 16 /min Comm on [facility] blood pressure 2022-01-13 13:00:00 132 mm[Hg] Common [facility] blood pressure 2022-01-13 13:00:00 60 mm[Hg] Common [facility] diastolic [facility] height 2021-12-14 14:00:00 60 [in_i] [facility] weight 2021-12-14 14:00:00 137.0 [lb_av] [facility] temperature 2021-12-14 14:00:00 97.2 [degF] Common [facility] bmi 2021-12-14 14:00:00 26.75 kg/m2 [facility] oximetry 2021-12-14 14:00:00 95 % [facility] respiratory rate 2021-12-14 14:00:00 18 /min Comm on [facility] blood pressure 2021-12-14 14:00:00 136 mm[Hg] Common [facility] - systolic [facility] blood pressure 2021-12-14 14:00:00 88 mm[Hg] Common [facility] - diastolic [facility] height 2021-10-12 11:00:00 60 [in_i] [facility] weight 2021-10-12 11:00:00 136.6 [lb_av] [facility] temperature 2021-10-12 11:00:00 97.4 [degF] [facility] bmi 2021-10-12 11:00:00 26.67 kg/m2 [facility] oximetry 2021-10-12 11:00:00 95 % Common S pirit [facility] respiratory rate 2021-10-12 11:00:00 18 /min Comm on [facility] blood pressure 2021-10-12 11:00:00 136 mm[Hg] Common [facility] blood pressure 2021-10-12 11:00:00 74 mm[Hg] Common [facility] - diastolic [facility] height 2021-07-13 14:20:00 60 [in_i] Common S pirit [facility] weight 2021-07-13 14:20:00 136 [lb_av] [facility] temperature 2021-07-13 14:20:00 97.3 [degF] Common [facility] bmi 2021-07-13 14:20:00 26.56 kg/m2 [facility] oximetry 2021-07-13 14:20:00 96 % [facility] respiratory rate 2021-07-13 14:20:00 17 /min Comm on [facility] blood pressure 2021-07-13 14:20:00 130 mm[Hg] Common [facility] - systolic [facility] blood pressure 2021-07-13 14:20:00 80 mm[Hg] Common [facility] - diastolic [facility] height 2021-05-14 11:20:00 60 [in_i] [facility] weight 2021-05-14 11:20:00 143 [lb_av] Common S pirit [facility] bmi 2021-05-14 11:20:00 27.92 kg/m2 [facility] oximetry 2021-05-14 11:20:00 94 % Common [facility] height 2021-04-08 13:00:00 60 [in_i] Common [facility] weight 2021-04-08 13:00:00 145.0 [lb_av] Common [facility] temperature 2021-04-08 13:00:00 96.4 [degF] Common [facility] bmi 2021-04-08 13:00:00 28.32 kg/m2 [facility] oximetry 2021-04-08 13:00:00 98 % [facility] respiratory rate 2021-04-08 13:00:00 16 /min Comm on [facility] blood pressure 2021-04-08 13:00:00 132 mm[Hg] Common [facility] blood pressure 2021-04-08 13:00:00 63 mm[Hg] Common [facility] - diastolic [facility] height 2020-11-13 12:00:00 60 [in_i] [facility] weight 2020-11-13 12:00:00 140 [lb_av] [facility] bmi 2020-11-13 12:00:00 27.34 kg/m2 [facility] Systolic (mm Hg) 2021-02-26 17:29:00 [facility] [place] Diastolic (mm Hg) 2021-02-26 17:29:00 Mem orial [place] Heart Rate 2021-02-26 17:29:00 [facility] [place] Respitory Rate 2021-02-26 17:29:00 [facility] [place] Height 2021-02-26 17:29:00 147.32 cm [facility] Weight 2021-02-26 17:29:00 [facility] [place] BMI Calculated 2021-02-26 17:29:00 [facility] [place] Systolic (mm Hg) 2021-01-22 17:15:00 Wilfrid rial [facility] Diastolic (mm Hg) 2021-01-22 17:15:00 Mem orial [facility] Heart Rate 2021-01-22 17:15:00 [facility] Respitory Rate 2021-01-22 17:15:00 [facility] [place] Height 2021-01-22 17:15:00 149.86 cm [facility] Weight 2021-01-22 17:15:00 [facility] BMI Calculated 2021-01-22 17:15:00 [facility] [place] Heart Rate 2016-06-14 16:00:00 [facility] Respitory Rate 2016-06-14 16:00:00 [facility] Temperature Oral (F) 2016-06-14 16:00:00 98.4 F [facility] Systolic (mm Hg) 2016-06-14 16:00:00 Wilfrid rial [facility] Diastolic (mm Hg) 2016-06-14 16:00:00 Mem orial [facility] Systolic (mm Hg) 2016-06-14 12:00:00 Wil[facility] rial [facility] Diastolic (mm Hg) 2016-06-14 12:00:00 Mem orial [facility] Respitory Rate 2016-06-14 12:00:00 [facility] Heart Rate 2016-06-14 12:00:00 [facility] Temperature Oral (F) 2016-06-14 12:00:00 98.8 F [facility] [place] Systolic (mm Hg) 2016-06-14 07:48:00 Wilfrid rial [facility] Diastolic (mm Hg) 2016-06-14 07:48:00 Mem orial [place] Respitory Rate 2016-06-14 07:48:00 [facility] Heart Rate 2016-06-14 07:48:00 [facility] Temperature Oral (F) 2016-06-14 07:48:00 98.2 F [facility] [place] Height 2016-06-08 11:57:00 152.4 cm [facility] [place] Weight 2016-06-08 11:57:00 [facility] BMI Calculated 2016-06-08 11:57:00 [facility] [place] Respitory Rate 2016-06-03 23:00:00 [facility] Systolic (mm Hg) 2016-06-03 23:00:00 Wilfrid rial [facility] Diastolic (mm Hg) 2016-06-03 23:00:00 Mem orial [place] Systolic (mm Hg) 2016-06-03 22:00:00 [facility] [place] Diastolic (mm Hg) 2016-06-03 22:00:00 Mem orial [facility] Systolic (mm Hg) 2016-06-03 21:30:00 [facility] [facility] [place] Diastolic (mm Hg) 2016-06-03 21:30:00 Mem orial [place] Respitory Rate 2016-06-03 18:00:00 [facility] [place] Respitory Rate 2016-06-03 17:45:00 [facility] Temperature Oral (F) 2016-05-26 13:36:00 98.4 F [facility] [place] Heart Rate 2016-05-26 13:36:00 [facility] [place] Weight 2016-05-26 13:27:00 [facility] [place] BMI Calculated 2016-05-26 13:27:00 [facility] [place] Height 2016-05-26 13:27:00 152.4 cm [facility] Systolic (mm Hg) 2012-04-26 19:50:00 [facility] [facility] [place] Diastolic (mm Hg) 2012-04-26 19:50:00 Mem orial [place] Systolic (mm Hg) 2012-04-26 17:15:00 [facility] [facility] [place] Diastolic (mm Hg) 2012-04-26 17:15:00 Mem o[facility] Temperature Oral (F) 2012-04-26 17:00:00 97.1 F [facility] [place] Diastolic (mm Hg) 2012-04-26 17:00:00 Mem [facility] [place] Systolic (mm Hg) 2012-04-26 17:00:00 Wilfrid [facility] Respitory Rate 2012-04-26 17:00:00 [facility] Heart Rate 2012-04-26 17:00:00 [facility] Respitory Rate 2012-04-26 13:00:00 [facility] [place] Heart Rate 2012-04-26 13:00:00 [facility] Temperature Oral (F) 2012-04-26 13:00:00 97.9 F [facility] Respitory Rate 2012-04-26 09:16:00 [facility] [place] Heart Rate 2012-04-26 09:16:00 [facility] Temperature Oral (F) 2012-04-26 09:16:00 98.3 F [facility] [place] Weight 2012-04-20 05:54:00 [facility] [place] Height 2012-04-19 01:59:00 152.4 cm [facility] [place] Weight 2012-04-19 01:59:00 [facility] Procedures Procedure Date / Time Performed Performing Clinician [facility] e Placement of stent in [facility] ermann cardiac conduit CEA - Carotid [facility] endarterectomy Stent placement [facility] Bypass<sup>1</sup> [facility] Planned Activity Planned Date Details Comments Source Future Scheduled 2022-03-24 COVID-19 VACCINE (#1) [facility] Hospital Test 14:10:25 [code = COVID-19 VACCINE (#1)] Future Scheduled 2022-03-24 SHINGLES VACCINES ([address] [facility] Test 14:10:25 of 2) [code = SHINGLES VACCINES (1 of 2)] Future Scheduled 2022-03-24 65+ PNEUMOCOCCAL [facility] Test 14:10:25 VACCINE (2 - PPSV23 if available, else PCV20) [code = 65+ PNEUMOCOCCAL VACCINE (2 - PPSV23 if available, else PCV20)] Future Scheduled 2022-03-24 INFLUENZA VACCINE [facility] Test 14:10:25 [code = INFLUENZA VACCINE] Future Scheduled 2022-01-28 COVID-19 VACCINE (#1) [facility] Test 04:00:32 [code = COVID-19 VACCINE (#1)] Future Scheduled 2022-01-28 SHINGLES VACCINES ([address] [facility] Hospital Test 04:00:32 of 2) [code = SHINGLES VACCINES (1 of 2)] Future Scheduled 2022-01-28 65+ PNEUMOCOCCAL [facility] Test 04:00:32 VACCINE (2 - PPSV23 if available, else PCV20) [code = 65+ PNEUMOCOCCAL VACCINE (2 - PPSV23 if available, else PCV20)] Future Scheduled 2022-01-28 INFLUENZA VACCINE [facility] Test 04:00:32 [code = INFLUENZA VACCINE] Future Scheduled COVID-19 VACCINE (1) [facility] Hospital Test [code = COVID-19 VACCINE (1)] Future Scheduled SHINGLES VACCINES (#1) M [facility] Test [code = SHINGLES VACCINES (#1)] Future Scheduled 65+ PNEUMOCOCCAL [facility] Test VACCINE (2 of 2 - PPSV23) [code = 65+ PNEUMOCOCCAL VACCINE (2 of 2 - PPSV23)] Future Scheduled INFLUENZA VACCINE [facility] Test [code = INFLUENZA VACCINE] Encounters Start End Encounter Admission Attending Care Care Encounter Source Date/Time Date/Time Type Type Clinicians Facility Department ID 2022-03-24 Preadmit nullFlavo [id number] [facility] 14:10:27 [facility] [place] 02 [facility] 2022-03-[id number] Common 13:59:00 Mari [id number] [facility] 2022-03-15 Outpatient Lois, STLMLC STLMLC [id number] Common 11:08:01 Mari [id number] [facility] 2022-03-12 Preadmit nullFlavo [id number] [facility] 11:54:50 r [place] 02 l [place] 2022-01-13 Outpatient Tripp, Na STLMLC STLMLC [id number] Common 07:29:00 [facility] 2022-01-12 Outpatient Tripp, Na STLMLC STLMLC [id number] Common 11:23:00 [facility] 2021-10-12 Outpatient Tripp, Na STLMLC STLMLC [id number] Common 10:47:00 [facility] 2021-10-08 Outpatient Tripp, Na STLMLC STLMLC [id number] Common 08:48:00 [facility] 2021-08-31 Outpatient Tripp, Na STLMLC STLMLC [id number] Common 12:15:00 [facility] 2021-07-08 Outpatient Tripp, Na STLMLC STLMLC [id number] Common 11:27:00 [facility] 2021-05-14 Outpatient Tripp, Na STLMLC STLMLC [id number] Common 11:14:01 [facility] 2021-05-13 Outpatient Tripp, Na STLMLC STLMLC [id number] Common 14:39:01 [facility] 2021-03-15 Outpatient Tripp, Na STLMLC STLMLC [id number] Common 15:34:00 [facility] 2021-03-10 Outpatient Tripp, Na STLMLC STLMLC [id number] Common 14:17:28 [id number] [facility] 2021-03-10 Outpatient Tripp, Na STLMLC STLMLC [id number] Common 13:55:49 [id number] [facility] 2021-03-10 Outpatient Tripp, Na STLMLC STLMLC [id number] Common 12:47:02 [id number] [facility] 2021-03-10 Outpatient Tripp, Na STLMLC STLMLC [id number] Common 12:35:11 [id number] [facility] 2021-03-10 Outpatient Tripp, Na STLMLC STLMLC [id number] Common 12:34:42 [id number] [facility] 2021-03-10 Outpatient Tripp, Na STLMLC STLMLC [id number] Common 12:22:40 [id number] [facility] 2021-03-10 Outpatient Tripp, Na STLMLC STLMLC [id number] Common 12:22:00 [id number] [facility] 2021-03-10 Outpatient Tripp, Na STLMLC STLMLC [id number] Common 12:19:24 [id number] [facility] 2021-03-10 Outpatient Tripp, Na STLMLC STLMLC [id number] Common 11:48:00 [id number] [facility] 2021-03-10 Outpatient Tripp, Na STLMLC STLMLC [id number] Common 11:18:51 [id number] [facility] 2021-03-10 Outpatient Tripp, Na STLMLC STLMLC [id number] Common 11:18:34 [id number] [facility] 2021-03-10 Outpatient Tripp, Na STLMLC STLMLC [id number] Common 11:16:12 [id number] [facility] 2021-03-10 Outpatient Tripp, Na STLMLC STLMLC [id number] Common 11:09:52 [id number] [facility] 2021-03-10 Outpatient Tripp, Na STLMLC STLMLC [id number] Common 11:09:27 [id number] [facility] 2021-03-10 Outpatient Tripp, Na STLMLC STLMLC [id number] Common 11:08:21 [id number] [facility] 2021-03-10 Outpatient Tripp, Na STLMLC STLMLC [id number] Common 11:03:44 [id number] [facility] 2021-03-10 Outpatient Tripp, Na STLMLC STLMLC [id number] Common 11:02:04 [id number] [facility] 2021-03-10 Outpatient Tripp, Na STLMLC STLMLC [id number] Common 11:01:47 [id number] [facility] 2022-03-15 2022-03-15 (TEL) STLMLC STLMLC [id number] Co mmon 00:00:00 00:00:00 [facility] 2022-03-15 2022-03-15 (TEL) STLMLC STLMLC [id number] Co mmon 00:00:00 00:00:00 [facility] 2022-02-11 2022-02-11 (TEL) STLMLC STLMLC [id number] Co mmon 00:00:00 00:00:00 [facility] 2022-02-01 2022-02-01 (TEL) STLMLC STLMLC [id number] Co mmon 00:00:00 00:00:00 [facility] 2022-01-31 2022-01-31 (TEL) STLMLC STLMLC [id number] Co mmon 00:00:00 00:00:00 [facility] 2022-01-13 2022-01-13 OFFICE STLMLC STLMLC [id number] Co mmon 00:00:00 00:00:00 VISIT [facility] PT - CHI LEVEL 4 [facility] 2021-12-15 2021-12-15 (TEL) STLMLC STLMLC [id number] Co mmon 00:00:00 00:00:00 [facility] 2021-12-14 2021-12-14 OFFICE STLMLC STLMLC [id number] Co mmon 00:00:00 00:00:00 VISIT EST Spir it PT LEVEL 3 - CHI [facility] 2021-12-10 2021-12-10 (TEL) STLMLC STLMLC [id number] Co mmon 00:00:00 00:00:00 [facility] 2021-11-08 2021-11-08 (TEL) STLMLC STLMLC [id number] Co mmon 00:00:00 00:00:00 [facility] 2021-10-14 2021-10-14 (TEL) STLMLC STLMLC [id number] Co mmon 00:00:00 00:00:00 [facility] 2021-10-12 2021-10-12 OFFICE STLMLC STLMLC [id number] Co mmon 00:00:00 00:00:00 VISIT [facility] ESTAB PT - CHI LEVEL 4 [facility] 2021-09-29 2021-09-29 (TEL) STLMLC STLMLC [id number] Co mmon 00:00:00 00:00:00 [facility] 2021-08-06 2021-08-06 (TEL) STLMLC STLMLC [id number] Co mmon 00:00:00 00:00:00 [facility] 2021-07-30 2021-07-30 (TEL) STLMLC STLMLC [id number] Co mmon 00:00:00 00:00:00 [facility] 2021-07-13 2021-07-13 OFFICE STLMLC STLMLC [id number] Co mmon 00:00:00 00:00:00 VISIT [facility] ESTAB PT - CHI LEVEL 4 [facility] 2021-05-14 2021-05-14 OFFICE STLMLC STLMLC [id number] Co mmon 00:00:00 00:00:00 VISIT EST Spir it PT LEVEL 3 - [facility] 2021-05-13 2021-05-13 (TEL) STLMLC STLMLC [id number] Co mmon 00:00:00 00:00:00 [facility] 2021-04-27 2021-04-27 Ambulatory nullFlavo MNA [id number] [facility] 16:30:00 16:30:00 Pre-Reg r Neurology 02 mike White 2021-04-27 2021-04-27 Ambulatory nullFlavo MNA [id number] [facility] 16:30:00 16:30:00 Pre-Reg r Neurology 02 mike White 2021-04-27 2021-04-27 Outpatient MHIE MHIE [id number] [facility] 11:30:00 11:30:00 02 mike White 2021-04-27 2021-04-27 [id number] 11:30:00 11:30:00 Giuseppe 02 Don 2021-04-09 2021-04-09 (TEL) STLMLC STLMLC [id number] Co mmon 00:00:00 00:00:00 [facility] 2021-04-08 2021-04-08 OFFICE STLMLC STLMLC [id number] Co mmon 00:00:00 00:00:00 VISIT [facility] 4 [facility] 2021-03-04 2021-03-04 (TEL) STLMLC STLMLC [id number] Co mmon 00:00:00 00:00:00 [facility] 2021-02-26 2021-02-27 Outpatient nullFlavo MNA [id number] [facility] 17:30:00 05:59:59 r Neurology 01 mike White 2021-02-26 2021-02-27 Outpatient nullFlavo MNA [id number] [facility] 17:30:00 05:59:59 r Neurology 01 mike White 2021-02-26 2021-02-26 Outpatient Rebeca [id number] 11:30:00 23:59:59 Giuseppe Don 2021-02-26 2021-02-26 Outpatient MHIE MHIE [id number] [facility] 11:30:00 11:30:00 01 mike White 2021-02-23 2021-02-23 (TEL) STLMLC STLMLC [id number] Co mmon 00:00:00 00:00:00 [facility] 2021-02-03 2021-02-03 (TEL) STLMLC STLMLC [id number] Co mmon 00:00:00 00:00:00 [facility] 2021-01-22 2021-01-23 Outpatient nullFlavo MNA [id number] [facility] 17:30:00 05:59:59 r Neurology 00 l Mathew White 2021-01-22 2021-01-23 Outpatient nullFlavo MNA [id number] [facility] 17:30:00 05:59:59 r Neurology 00 l Mathew White 2021-01-22 2021-01-22 Outpatient Krell, MHMISCHER MISCHER [id number] 11:30:00 23:59:59 Giuseppe 00 Don 2021-01-22 2021-01-22 Outpatient MHIE MHIE [id number] [facility] 11:30:00 11:30:00 00 l Christopher 2021-01-22 2021-01-22 (TEL) STLMLC STLMLC [id number] Co mmon 00:00:00 00:00:00 [facility] 2021-01-15 2021-01-15 (TEL) STLMLC STLMLC [id number] Co mmon 00:00:00 00:00:00 [facility] 2021-01-13 2021-01-13 (TEL) STLMLC STLMLC [id number] Co mmon 00:00:00 00:00:00 [facility] 2021-01-05 2021-01-05 OL DIG E/M STLMLC STLMLC [id number] Common 00:00:00 00:00:00 SVC 21+ [facility] 2021-01-04 2021-01-04 (TEL) STLMLC STLMLC [id number] Co mmon 00:00:00 00:00:00 [facility] 2020-12-22 2020-12-22 (TEL) STLMLC STLMLC [id number] Co mmon 00:00:00 00:00:00 [facility] 2020-12-15 2020-12-15 (TEL) STLMLC STLMLC [id number] Co mmon 00:00:00 00:00:00 [facility] 2020-12-10 2020-12-10 (TEL) STLMLC STLMLC [id number] Co mmon 00:00:00 00:00:00 [facility] 2020-12-08 2020-12-08 (TEL) STLMLC STLMLC [id number] Co mmon 00:00:00 00:00:00 [facility] 2020-12-07 2020-12-07 (TEL) STLMLC STLMLC [id number] Co mmon 00:00:00 00:00:00 [facility] 2020-11-27 2020-11-27 (TEL) STLMLC STLMLC [id number] Co mmon 00:00:00 00:00:00 [facility] 2020-11-13 2020-11-13 OFFICE STLMLC STLMLC [id number] Co mmon 00:00:00 00:00:00 VISIT EST Spir it PT LEVEL [address] [place] [address] 2020-10-26 2020-10-26 (TEL) STLMLC STLMLC [id number] Co mmon 00:00:00 00:00:00 [facility] 2020-10-23 2020-10-23 Outpatient STLMLC STLMLC [id number] Common 00:00:00 00:00:00 [facility] 2020-10-08 2020-10-08 Outpatient STLMLC STLMLC [id number] Common 00:00:00 00:00:00 [facility] 2020-10-08 2020-10-08 Outpatient STLMLC STLMLC [id number] Common 00:00:00 00:00:00 [facility] 2020-09-23 2020-09-23 Outpatient STLMLC STLMLC [id number] Common 00:00:00 00:00:00 [facility] 2020-09-16 2020-09-16 Outpatient STLMLC STLMLC [id number] Common 00:00:00 00:00:00 [facility] 2020-07-24 2020-07-24 Outpatient STLMLC STLMLC [id number] Common 00:00:00 00:00:00 [facility] 2020-06-22 2020-06-22 Outpatient STLMLC STLMLC [id number] Common 00:00:00 00:00:00 [facility] 2020-05-28 2020-05-28 Outpatient STLMLC STLMLC [id number] Common 00:00:00 00:00:00 [facility] 2020-05-25 2020-05-25 Outpatient STLMLC STLMLC [id number] Common 00:00:00 00:00:00 [facility] 2020-05-15 2020-05-15 Outpatient STLMLC STLMLC [id number] Common 00:00:00 00:00:00 [facility] 2020-05-15 2020-05-15 Outpatient STLMLC STLMLC [id number] Common 00:00:00 00:00:00 [facility] 2020-05-01 2020-05-01 Outpatient STLMLC STLMLC [id number] Common 00:00:00 00:00:00 [facility] 2020-04-13 2020-04-13 Outpatient STLMLC STLMLC [id number] Common 00:00:00 00:00:00 [facility] 2020-04-07 2020-04-07 Outpatient STLMLC STLMLC [id number] Common 00:00:00 00:00:00 [facility] 2020-03-13 2020-03-13 Outpatient STLMLC STLMLC [id number] Common 00:00:00 00:00:00 [facility] 2020-03-05 2020-03-05 Outpatient STLMLC STLMLC [id number] Common 00:00:00 00:00:00 [facility] 2020-03-05 2020-03-05 Outpatient STLMLC STLMLC [id number] Common 00:00:00 00:00:00 [facility] 2020-02-28 2020-02-28 Outpatient STLMLC STLMLC [id number] Common 00:00:00 00:00:00 [facility] 2020-02-28 2020-02-28 Outpatient STLMLC STLMLC [id number] Common 00:00:00 00:00:00 [facility] 2020-02-27 2020-02-27 Outpatient STLMLC STLMLC [id number] Common 00:00:00 00:00:00 [facility] 2020-02-20 2020-02-20 Outpatient STLMLC STLMLC [id number] Common 00:00:00 00:00:00 [facility] 2019-11-06 2019-11-06 Outpatient STLMLC STLMLC [id number] Common 00:00:00 00:00:00 [facility] 2019-08-28 2019-08-28 [facility] [id number] Common 09:42:00 09:42:[address] [facility] 2019-08-05 2019-08-05 [facility] [id number] Common 11:00:00 11:00:[address] [facility] 2019-07-29 2019-07-29 [facility] [id number] Common 11:43:00 11:43:[address] [facility] 2019-06-17 2019-06-17 [facility] [id number] Common 10:40:00 10:40:[address] [facility] 2019-06-12 2019-06-12 [facility] [id number] Common 13:20:00 13:20:[address] [facility] 2019-06-11 2019-06-11 [facility] [id number] Common 10:41:00 10:41:[address] [facility] 2019-06-05 2019-06-05 [facility] [id number] Common 09:20:00 09:20:[address] [facility] 2019-06-03 2019-06-03 [facility] [id number] Common 09:27:00 09:27:[address] [facility] 2019-04-09 2019-04-09 [facility] [id number] Common 08:20:00 08:20:[address] [facility] 2019-04-02 2019-04-02 [facility] [id number] Common 07:56:00 07:56:[address] [facility] 2019-03-12 2019-03-12 [facility] [id number] Common 10:53:00 10:53:[address] [facility] 2019-03-04 2019-03-04 [facility] [id number] Common 15:25:00 15:25:00 t Specialty/U Sp sherly Specialty rology - [facility] /Urology Clinic [facility] 2019-03-04 2019-03-04 [facility] [id number] Common 11:34:00 11:34:[address] [facility] 2019-02-01 2019-02-01 [facility] [id number] Common 14:51:00 14:51:[address] [facility] 2019-01-07 2019-01-07 [facility] [id number] Common 14:40:00 14:40:[address] [facility] 2018-12-18 2018-12-18 [facility] [id number] Common 11:11:00 11:11:00 t [facility] 2018-11-30 2018-11-30 [facility] [id number] Common 10:10:00 10:10:[address] Family - [facility] 2018-10-14 2018-10-14 [facility] [id number] Common 20:24:00 20:24:[address] [facility] 2018-10-08 2018-10-08 [facility] [id number] Common 13:20:00 13:20:[address] [facility] 2018-09-17 2018-09-17 [facility] [id number] Common 12:25:00 12:25:[address] [facility] 2018-09-06 2018-09-06 [facility] [id number] Common 14:00:00 14:00:[address] [facility] 2018-06-07 2018-06-07 [facility] [id number] Common 09:40:00 09:40:[address] [facility] 2018-05-04 2018-05-04 [facility] [id number] Common 16:39:00 16:39:[address] [facility] 2018-04-11 2018-04-11 [facility] [id number] Common 11:39:00 11:39:[address] [facility] 2018-03-14 2018-03-14 [facility] [id number] Common 11:56:00 11:56:[address] [facility] 2018-03-09 2018-03-09 [facility] [id number] Common 14:57:00 14:57:[address] [facility] 2018-03-05 2018-03-05 [facility] [id number] Common 09:30:00 09:30:[address] [facility] 2018-01-08 2018-01-08 [facility] [id number] Common 10:15:00 10:15:00 [place] [address] [facility] 2017-10-11 2017-10-11 [facility] [id number] Common 15:45:00 15:45:[address] [facility] 2017-08-21 2017-08-21 [facility] 13 [id number] Common 15:00:00 15:00:[address] [facility] 2017-06-20 2017-06-20 [facility] 13 [id number] Common 16:33:00 16:33:[address] [facility] 2017-06-15 2017-06-15 [facility] 13 [id number] Common 10:42:00 10:42:[address] [facility] 2017-06-02 2017-06-02 [facility] 13 [id number] Common 12:11:00 12:11:[address] [facility] 2017-05-23 2017-05-23 [facility] 13 [id number] Common 20:14:00 20:14:[address] [facility] 2017-05-22 2017-05-22 [facility] 13 [id number] Common 14:00:00 14:00:[address] [facility] 2016-06-08 2016-06-14 [facility] [id number] Memoria 14:04:00 18:19:00 keya Medley [facility] 2016-06-08 2016-06-[address] [facility] [id number] Memoria 14:04:00 18:19:00 keya Medley [facility] 2016-06-08 2016-06-14 Outpatient BRAYDEN Burch [facility] [id number] 09:04:00 13:19:00 Luis Garvey 2016-06-03 2016-06-03 Day nullFlavo [facility] [id number] Memoria 13:42:00 23:11:00 Surgery r [place] 04 [facility] 2016-06-03 2016-06-03 Day nullFlavo [facility] [id number] Memoria 13:42:00 23:11:00 Surgery r [place] 04 [facility] 2016-06-03 2016-06-03 Outpatient BRAYDEN Burch [facility] [id number] 08:42:00 18:11:00 Luis Chowdhury Guru 2012-04-19 2012-04-26 Inpatient nullFlavo [id number] Memoria 00:12:00 15:30:00 [facility] mike [place] 2012-04-19 2012-04-26 Inpatient nullFlavo [id number] Memoria 00:12:00 15:30:00 [facility] mike LeosChristopher 2012-04-18 2012-04-18 Outpatient nullFlavo [id number] Memoria 13:01:00 13:01:00 [facility] mike [place] 2012-04-18 2012-04-18 Outpatient nullFlavo [id number] Memoria 13:01:00 13:01:00 [facility] Results Test Description Test Time Test Comments Results Result Comments Source CHEM PANEL 2016-06-13 11:25:00 Test Item Value Reference Range Interpretation Comme nts eGFR (test code = eGFR) 86 [facility] [id number] 11:25:00 Test Item Value Reference Range Interpretation Comments Calcium Lvl (test code = Calcium Lvl) 8.9 8.5-10.5 [facility] [id number] 11:25:00 Test Item Value Reference Range Interpretation Comments Total Protein (test code = Total 6.2 6.4-8.4 Protein) [facility] [id number] 11:25:00 Test Item Value Reference Range Interpretation Comments Bili Total (test code = Bili Total) 0.5 0.2-1.3 [facility] [id number] 11:25:00 Test Item Value Reference Range Interpretation Comments CO2 (test code = CO2) 30 24-32 [facility] [id number] 11:25:00 Test Item Value Reference Range Interpretation Comments ALT (test code = ALT) 18 See_Comment [Auto mated message] The system which ge nerated this result transmit norris reference range : <=65. The reference range was not used to interpr et this result as darshana l/abnormal. [facility]2017-05-01 11:25:00 Test Item Value Reference Range Interpretation Comments Albumin Lvl (test code = Albumin Lvl) 2.9 3.5-5.0 [facility]2017-05-01 11:25:00 Test Item Value Reference Range Interpretation Comments AST (test code = AST) 15 See_Comment [Auto mated message] The system which ge nerated this result transmit norris reference range : <=37. The reference range was not used to interpr et this result as darshana l/abnormal. [facility]2017-05-01 11:25:00 Test Item Value Reference Range Interpretation Comments Alk Phos (test code = Alk Phos) 71 39-136 [facility]2017-05-01 11:25:00 Test Item Value Reference Range Interpretation Comments Chloride Lvl (test code = Chloride Lvl) 100 95-109 [facility]2017-05-01 11:25:00 Test Item Value Reference Range Interpretation Comments Sodium Lvl (test code = Sodium Lvl) 140 135-145 [facility]2017-05-01 11:25:00 Test Item Value Reference Range Interpretation Comments Creatinine Lvl (test code = Creatinine 0.64 0.50-1.40 Lvl) [facility]2017-05-01 11:25:00 Test Item Value Reference Range Interpretation Comments BUN (test code = BUN) 23 7-22 [facility]2017-05-01 11:25:00 Test Item Value Reference Range Interpretation Comments Potassium Lvl (test code = Potassium 3.5 3.5-5.1 Lvl) [facility]2017-05-01 11:25:00 Test Item Value Reference Range Interpretation Comments Glucose Lvl (test code = Glucose Lvl) 134 70-99 [facility]2017-05-01 11:25:00 Test Item Value Reference Range Interpretation Comments A/G Ratio (test code = A/G Ratio) 0.9 0.7-1.6 [facility]2017-05-01 11:25:00 Test Item Value Reference Range Interpretation Comments Globulin (test code = Globulin) 3.3 2.7-4.2 [facility] [id number] 11:25:00 Test Item Value Reference Range Interpretation Comments B/C Ratio (test code = B/C Ratio) 36 6-25 [facility] [id number] 11:25:00 Test Item Value Reference Range Interpretation Comments AGAP (test code = AGAP) 13.5 10.0-20.0 [facility] HospitalXtylpytTOFRYLLMOD5515-95-42 11:25:00 Test Item Value Reference Range Interpretation Comments MCHC (test code = MCHC) 34.1 32.0-36.0 [facility] HospitalNbvfjmtMOFVKUDUHI3680-25-24 11:25:00 Test Item Value Reference Range Interpretation Comments MPV (test code = MPV) 9.4 7.4-10.4 [facility] HospitalFffetvxKDHTEHPFBX5332-13-10 11:25:00 Test Item Value Reference Range Interpretation Comments RDW (test code = RDW) 17.1 11.5-14.5 [facility] HospitalJxqylyjSINPTGODLH7914-56-62 11:25:00 Test Item Value Reference Range Interpretation Comments MCH (test code = MCH) 26.8 pg 27.0-31.0 [facility] HospitalDzormvtLGFLUDKUIR2855-90-90 11:25:00 Test Item Value Reference Range Interpretation Comments Platelet (test code = Platelet) 198 133-450 [facility] HospitalHqhfcpuBPXTSQYZHY4762-15-12 11:25:00 Test Item Value Reference Range Interpretation Comments WBC (test code = WBC) 9.9 3.7-10.4 [facility] HospitalAkdrntiEZCHFXDUTW4700-96-92 11:25:00 Test Item Value Reference Range Interpretation Comments Hgb (test code = Hgb) 8.2 12.0-16.0 [facility] HospitalFffuvmyNPHONZGBPZ6795-66-57 11:25:00 Test Item Value Reference Range Interpretation Comments RBC (test code = RBC) 3.05 4.20-5.40 [facility] HospitalLjbjmrbWTYDPMOAIN7471-85-66 11:25:00 Test Item Value Reference Range Interpretation Comments MCV (test code = MCV) 78.5 80.0-98.0 [facility] HospitalAgslrdrHJYMXEBBVG2820-47-34 11:25:00 Test Item Value Reference Range Interpretation Comments Hct (test code = Hct) 23.9 36.0-48.0 [facility] HospitalYydkmagCZDIZURGVM3258-49-39 11:25:00 Test Item Value Reference Range Interpretation Comments Microcyte (test code = 1+ *ABN*(06/13/16 6:25 Microcyte) AM) [facility] HospitalQcksxwzGNXNRGDKVS1153-44-94 11:25:00 Test Item Value Reference Range Interpretation Comments Basophils # (test code 0.1 See_Comment [Aut omated message] The = Basophils #) system which generated this result tra nsmitted reference range : <=0.2. The reference r lina was not used to int erpret this result as normal/abnormal . [facility] HospitalLhilxsgHOLANJZLQX4110-79-10 11:25:00 Test Item Value Reference Range Interpretation Comments Eosinophils # (test code 0.2 See_Comment [A utomated message] The = Eosinophils #) system whic h generated this result tra nsmitted reference range : <=0.5. The reference r lina was not used to int erpret this result as normal/abnormal . [facility] HospitalElugwxkNXYPCCCRRM3755-92-89 11:25:00 Test Item Value Reference Range Interpretation Comments Monocytes # (test code 0.7 See_Comment [Aut omated message] The = Monocytes #) system which generated this result tra nsmitted reference range : <=0.8. The reference r lina was not used to int erpret this result as normal/abnormal . [facility] HospitalOmwzgaiRWTXPIPYHK6195-40-09 11:25:00 Test Item Value Reference Range Interpretation Comments Lymphocytes (test code = Lymphocytes) 17.6 20.0-40.0 [facility] HospitalFqkkpdfBQKLCLUPOA2991-44-10 11:25:00 Test Item Value Reference Range Interpretation Comments Segs (test code = Segs) 73.1 45.0-75.0 [facility] HospitalWigkwizQRZPLVNEVY1642-23-50 11:25:00 Test Item Value Reference Range Interpretation Comments Basophils (test code = 0.5 See_Comment [Aut omated message] The Basophils) system which ge nerated this result tra nsmitted reference range : <=1.0. The reference r lina was not used to int erpret this result as normal/abnormal . [facility] HospitalQaauhdsFJIMOFSRCX2201-09-02 11:25:00 Test Item Value Reference Range Interpretation Comments Eosinophils (test code = 2.2 See_Comment [A utomated message] The Eosinophils) system which ge nerated this result tra nsmitted reference range : <=4.0. The reference r lina was not used to int erpret this result as normal/abnormal . [facility] HospitalCbkbpklAYZMDNISZK3629-84-15 11:25:00 Test Item Value Reference Range Interpretation Comments Monocytes (test code = Monocytes) 6.6 2.0-12.0 [facility] HospitalTifgtxwGKPJXBPZNV5076-83-32 11:25:00 Test Item Value Reference Range Interpretation Comments Lymphocytes # (test code = Lymphocytes 1.7 1.0-5.5 #) [facility] HospitalTubnhgiUIMIQIUDSY7236-75-93 11:25:00 Test Item Value Reference Range Interpretation Comments Segs-Bands # (test code = Segs-Bands #) 7.2 1.5-8.1 [facility]2017-05-01 11:25:00 Test Item Value Reference Range Interpretation Comments eGFR (test code = eGFR) 86 [facility]2017-05-01 11:25:00 Test Item Value Reference Range Interpretation Comments Calcium Lvl (test code = Calcium Lvl) 8.9 8.5-10.5 [facility]2017-05-01 11:25:00 Test Item Value Reference Range Interpretation Comments Total Protein (test code = Total 6.2 6.4-8.4 Protein) [facility]2017-05-01 11:25:00 Test Item Value Reference Range Interpretation Comments Bili Total (test code = Bili Total) 0.5 0.2-1.3 [facility]2017-05-01 11:25:00 Test Item Value Reference Range Interpretation Comments CO2 (test code = CO2) 30 24-32 [facility]2017-05-01 11:25:00 Test Item Value Reference Range Interpretation Comments ALT (test code = ALT) 18 See_Comment [Auto mated message] The system which ge nerated this result transmit norris reference range : <=65. The reference range was not used to interpr et this result as darshana l/abnormal. [facility]2017-05-01 11:25:00 Test Item Value Reference Range Interpretation Comments Albumin Lvl (test code = Albumin Lvl) 2.9 3.5-5.0 [place] 076037-05-01 11:25:00 Test Item Value Reference Range Interpretation Comments AST (test code = AST) 15 See_Comment [Auto mated message] The system which ge nerated this result transmit norris reference range : <=37. The reference range was not used to interpr et this result as darshana l/abnormal. [facility]2017-05-01 11:25:00 Test Item Value Reference Range Interpretation Comments Alk Phos (test code = Alk Phos) 71 39-136 [facility]2017-05-01 11:25:00 Test Item Value Reference Range Interpretation Comments Chloride Lvl (test code = Chloride Lvl) 100 95-109 [facility]2017-05-01 11:25:00 Test Item Value Reference Range Interpretation Comments Sodium Lvl (test code = Sodium Lvl) 140 135-145 [facility]2017-05-01 11:25:00 Test Item Value Reference Range Interpretation Comments Creatinine Lvl (test code = Creatinine 0.64 0.50-1.40 Lvl) [facility]2017-05-01 11:25:00 Test Item Value Reference Range Interpretation Comments BUN (test code = BUN) 23 7-22 [facility]2017-05-01 11:25:00 Test Item Value Reference Range Interpretation Comments Potassium Lvl (test code = Potassium 3.5 3.5-5.1 Lvl) [facility]2017-05-01 11:25:00 Test Item Value Reference Range Interpretation Comments Glucose Lvl (test code = Glucose Lvl) 134 70-99 [facility]2017-05-01 11:25:00 Test Item Value Reference Range Interpretation Comments A/G Ratio (test code = A/G Ratio) 0.9 0.7-1.6 [facility]2017-05-01 11:25:00 Test Item Value Reference Range Interpretation Comments Globulin (test code = Globulin) 3.3 2.7-4.2 [facility]2017-05-01 11:25:00 Test Item Value Reference Range Interpretation Comments B/C Ratio (test code = B/C Ratio) 36 6-25 [facility]2017-05-01 11:25:00 Test Item Value Reference Range Interpretation Comments AGAP (test code = AGAP) 13.5 10.0-20.0 [facility] HospitalNuaughbUJOZUPJVND1329-54-16 11:25:00 Test Item Value Reference Range Interpretation Comments MCHC (test code = MCHC) 34.1 32.0-36.0 [facility] HospitalItdbotdHBWKWSZNCJ4960-66-40 11:25:00 Test Item Value Reference Range Interpretation Comments MPV (test code = MPV) 9.4 7.4-10.4 [facility] HospitalDprjcfnDBBUPNFDOS4445-94-02 11:25:00 Test Item Value Reference Range Interpretation Comments RDW (test code = RDW) 17.1 11.5-14.5 [facility] HospitalKpdsiifXJERFHCPAP0655-60-73 11:25:00 Test Item Value Reference Range Interpretation Comments MCH (test code = MCH) 26.8 pg 27.0-31.0 [facility] HospitalZrzmduuCQYCBBWSAK1991-69-68 11:25:00 Test Item Value Reference Range Interpretation Comments Platelet (test code = Platelet) 198 133-450 [facility] HospitalZhpwxvvBEZCFQOZKP3657-72-52 11:25:00 Test Item Value Reference Range Interpretation Comments WBC (test code = WBC) 9.9 3.7-10.4 [facility] HospitalPcxlirzUGXQXSLRGC0569-81-14 11:25:00 Test Item Value Reference Range Interpretation Comments Hgb (test code = Hgb) 8.2 12.0-16.0 [facility] HospitalBzbwxapOYVBYPDRJD4682-01-38 11:25:00 Test Item Value Reference Range Interpretation Comments RBC (test code = RBC) 3.05 4.20-5.40 [facility] HospitalWtkqxveKCNFOLDZFX7596-30-85 11:25:00 Test Item Value Reference Range Interpretation Comments MCV (test code = MCV) 78.5 80.0-98.0 [facility] HospitalVugvxhzLHWPZXFLSB8335-81-82 11:25:00 Test Item Value Reference Range Interpretation Comments Hct (test code = Hct) 23.9 36.0-48.0 [facility] HospitalNlckkhlSFAOVZBHFU2621-22-00 11:25:00 Test Item Value Reference Range Interpretation Comments Microcyte (test code = 1+ *ABN*(06/13/16 6:25 Microcyte) AM) [facility] HospitalBayjkxkPFMGFTMEJC9719-28-34 11:25:00 Test Item Value Reference Range Interpretation Comments Basophils # (test code 0.1 See_Comment [Aut omated message] The = Basophils #) system which generated this result tra nsmitted reference range : <=0.2. The reference r lina was not used to int erpret this result as normal/abnormal . [facility] HospitalVwniaajQCMFZEKZAA9592-17-72 11:25:00 Test Item Value Reference Range Interpretation Comments Eosinophils # (test code 0.2 See_Comment [A utomated message] The = Eosinophils #) system whic h generated this result tra nsmitted reference range : <=0.5. The reference r lina was not used to int erpret this result as normal/abnormal . [facility] HospitalMsloqlzGFTXSGYREO8676-96-17 11:25:00 Test Item Value Reference Range Interpretation Comments Monocytes # (test code 0.7 See_Comment [Aut omated message] The = Monocytes #) system which generated this result tra nsmitted reference range : <=0.8. The reference r lina was not used to int erpret this result as normal/abnormal . [facility] HospitalPywcynwGCPZIEBCAP8684-80-56 11:25:00 Test Item Value Reference Range Interpretation Comments Lymphocytes (test code = Lymphocytes) 17.6 20.0-40.0 [facility] HospitalDzhjyxrWWXUYYHCIO2473-64-75 11:25:00 Test Item Value Reference Range Interpretation Comments Segs (test code = Segs) 73.1 45.0-75.0 [facility] HospitalLwoitybUGNJQOKNSK3236-82-25 11:25:00 Test Item Value Reference Range Interpretation Comments Basophils (test code = 0.5 See_Comment [Aut omated message] The Basophils) system which ge nerated this result tra nsmitted reference range : <=1.0. The reference r lina was not used to int erpret this result as normal/abnormal . [facility] HospitalDrxfsjiXJSCRMAVUC8142-13-26 11:25:00 Test Item Value Reference Range Interpretation Comments Eosinophils (test code = 2.2 See_Comment [A utomated message] The Eosinophils) system which ge nerated this result tra nsmitted reference range : <=4.0. The reference r lina was not used to int erpret this result as normal/abnormal . [facility] HospitalAzupufyTHLDEDTBPC0924-13-18 11:25:00 Test Item Value Reference Range Interpretation Comments Monocytes (test code = Monocytes) 6.6 2.0-12.0 [facility] HospitalTimbifzCXCDJJQTAJ3316-45-22 11:25:00 Test Item Value Reference Range Interpretation Comments Lymphocytes # (test code = Lymphocytes 1.7 1.0-5.5 #) [facility] HospitalHrwepsjRMCJFPJIIJ1448-39-14 11:25:00 Test Item Value Reference Range Interpretation Comments Segs-Bands # (test code = Segs-Bands #) 7.2 1.5-8.1 [facility]cfeuovNZGYFVUWEF2870-94-40 02:08:00 Test Item Value Reference Range Interpretation Comments Hgb (test code = Hgb) 8.0 12.0-16.0 [facility]ClrdvzmJWBZIXIGBX3329-43-02 02:08:00 Test Item Value Reference Range Interpretation Comments Hct (test code = Hct) 24.0 36.0-48.0 [facility]ervilleCebrvsqXURKBOWFCD8851-77-05 02:08:00 Test Item Value Reference Range Interpretation Comments Hgb (test code = Hgb) 8.0 12.0-16.0 [facility]ervilleCvakgaqMFRAUHILFK8778-67-15 02:08:00 Test Item Value Reference Range Interpretation Comments Hct (test code = Hct) 24.0 36.0-48.0 [facility] ZKJSEAZ8406-35-12 11:30:00 Test Item Value Reference Range Interpretation Comments RBC product (test code Product available = RBC product) 1(06/10/16 6:30 AM) [facility] [employer] [facility] LDEWPRN9832-51-52 11:30:00 Test Item Value Reference Range Interpretation Comments RBC product (test code Product available = RBC product) 1(06/10/16 6:30 AM) [facility] [employer] [id number] 09:06:00 Test Item Value Reference Range Interpretation Comments eGFR (test code = eGFR) 85 [facility] [employer] [id number] 09:06:00 Test Item Value Reference Range Interpretation Comments Creatinine Lvl (test code = Creatinine 0.66 0.50-1.40 Lvl) [facility] [employer] [id number] 09:06:00 Test Item Value Reference Range Interpretation Comments Potassium Lvl (test code = Potassium 3.9 3.5-5.1 Lvl) [facility] GJLVM5585-57-17 09:06:00 Test Item Value Reference Range Interpretation Comments Sodium Lvl (test code = Sodium Lvl) 143 135-145 [facility]2017-04-28 09:06:00 Test Item Value Reference Range Interpretation Comments Chloride Lvl (test code = Chloride Lvl) 109 95-109 [facility]2017-04-28 09:06:00 Test Item Value Reference Range Interpretation Comments CO2 (test code = CO2) 25 24-32 [facility]2017-04-28 09:06:00 Test Item Value Reference Range Interpretation Comments AGAP (test code = AGAP) 12.9 10.0-20.0 [facility]2017-04-28 09:06:00 Test Item Value Reference Range Interpretation Comments Calcium Lvl (test code = Calcium Lvl) 7.9 8.5-10.5 [facility]2017-04-28 09:06:00 Test Item Value Reference Range Interpretation Comments Glucose Lvl (test code = Glucose Lvl) 143 70-99 [facility]2017-04-28 09:06:00 Test Item Value Reference Range Interpretation Comments BUN (test code = BUN) 19 7-22 [facility]2017-04-28 09:06:00 Test Item Value Reference Range Interpretation Comments Magnesium Lvl (test code = Magnesium 2.1 1.8-2.4 Lvl) [facility]2017-04-28 09:06:00 Test Item Value Reference Range Interpretation Comments Phosphorus (test code = Phosphorus) 2.8 2.5-4.5 [facility] HospitalQrbnelxYHFMCHIFXY3388-91-83 09:06:00 Test Item Value Reference Range Interpretation Comments Hgb (test code = Hgb) 7.3 12.0-16.0 [facility] HospitalZejvmecEMORPRJKLL9895-49-56 09:06:00 Test Item Value Reference Range Interpretation Comments RBC (test code = RBC) 2.77 4.20-5.40 [facility] HospitalSnttgsgOSTTSVLWSK3283-27-64 09:06:00 Test Item Value Reference Range Interpretation Comments WBC (test code = WBC) 8.1 3.7-10.4 [facility] HospitalDnosvxmRKIJZHDCXY7578-32-90 09:06:00 Test Item Value Reference Range Interpretation Comments MPV (test code = MPV) 9.8 7.4-10.4 [facility] HospitalPpudtbbOKPHRPDIOX5320-42-85 09:06:00 Test Item Value Reference Range Interpretation Comments Platelet (test code = Platelet) 138 133-450 [facility] HospitalFhnzyiaSMVCOIPBMD4637-49-11 09:06:00 Test Item Value Reference Range Interpretation Comments MCV (test code = MCV) 78.7 80.0-98.0 [facility] HospitalAnxnpwjACNOVHSHPP3811-94-21 09:06:00 Test Item Value Reference Range Interpretation Comments RDW (test code = RDW) 16.6 11.5-14.5 [facility] HospitalOwmznsuTGBXJFNLQH5042-00-28 09:06:00 Test Item Value Reference Range Interpretation Comments MCHC (test code = MCHC) 33.4 32.0-36.0 [facility] HospitalIywkakjDAZUJNMJVU2912-77-12 09:06:00 Test Item Value Reference Range Interpretation Comments Hct (test code = Hct) 21.8 36.0-48.0 [facility] HospitalFocxyqiLEAOKYVJHD0978-07-69 09:06:00 Test Item Value Reference Range Interpretation Comments MCH (test code = MCH) 26.3 pg 27.0-31.0 [facility] HospitalGkxwjdtASNEHCCAGE5221-44-60 09:06:00 Test Item Value Reference Range Interpretation Comments Microcyte (test code = 1+ *ABN*(06/10/16 Microcyte) 4:06 AM) [facility] HospitalRvekisaPVLITQBNFQ9257-09-01 09:06:00 Test Item Value Reference Range Interpretation Comments Segs-Bands # (test code = Segs-Bands #) 5.6 1.5-8.1 [facility] HospitalHxuvtnyDLQFACOBCR9505-20-63 09:06:00 Test Item Value Reference Range Interpretation Comments Eosinophils # (test code 0.1 See_Comment [A utomated message] The = Eosinophils #) system whic h generated this result tra nsmitted reference range : <=0.5. The reference r lina was not used to int erpret this result as normal/abnormal . [facility] HospitalRbguzamHZWCATJQBV2789-87-01 09:06:00 Test Item Value Reference Range Interpretation Comments Monocytes # (test code 0.5 See_Comment [Aut omated message] The = Monocytes #) system which generated this result tra nsmitted reference range : <=0.8. The reference r lina was not used to int erpret this result as normal/abnormal . [facility] HospitalYfnmsluVEIHZCTVPO9520-28-39 09:06:00 Test Item Value Reference Range Interpretation Comments Basophils (test code = 0.3 See_Comment [Aut omated message] The Basophils) system which ge nerated this result tra nsmitted reference range : <=1.0. The reference r lina was not used to int erpret this result as normal/abnormal . [facility] HospitalCzcitigPOWVYJAQRA0994-99-37 09:06:00 Test Item Value Reference Range Interpretation Comments Lymphocytes # (test code = Lymphocytes 1.9 1.0-5.5 #) [facility] HospitalYztdnpaZTZXFOEJVW5709-71-55 09:06:00 Test Item Value Reference Range Interpretation Comments Eosinophils (test code = 0.9 See_Comment [A utomated message] The Eosinophils) system which ge nerated this result tra nsmitted reference range : <=4.0. The reference r lina was not used to int erpret this result as normal/abnormal . [facility] HospitalQctcspnCXHOYIDCIL0675-26-79 09:06:00 Test Item Value Reference Range Interpretation Comments Monocytes (test code = Monocytes) 6.5 2.0-12.0 [facility] HospitalLyafuygQUZNCUSTZX7433-80-88 09:06:00 Test Item Value Reference Range Interpretation Comments Lymphocytes (test code = Lymphocytes) 23.3 20.0-40.0 [facility] HospitalFanslyeKNNHXMBSIY9063-63-29 09:06:00 Test Item Value Reference Range Interpretation Comments Segs (test code = Segs) 69.0 45.0-75.0 [facility]2017-04-28 09:06:00 Test Item Value Reference Range Interpretation Comments eGFR (test code = eGFR) 85 [facility]2017-04-28 09:06:00 Test Item Value Reference Range Interpretation Comments Creatinine Lvl (test code = Creatinine 0.66 0.50-1.40 Lvl) [facility]2017-04-28 09:06:00 Test Item Value Reference Range Interpretation Comments Potassium Lvl (test code = Potassium 3.9 3.5-5.1 Lvl) [facility]2017-04-28 09:06:00 Test Item Value Reference Range Interpretation Comments Sodium Lvl (test code = Sodium Lvl) 143 135-145 [facility]2017-04-28 09:06:00 Test Item Value Reference Range Interpretation Comments Chloride Lvl (test code = Chloride Lvl) 109 95-109 [facility]2017-04-28 09:06:00 Test Item Value Reference Range Interpretation Comments CO2 (test code = CO2) 25 24-32 [facility]2017-04-28 09:06:00 Test Item Value Reference Range Interpretation Comments AGAP (test code = AGAP) 12.9 10.0-20.0 [facility]2017-04-28 09:06:00 Test Item Value Reference Range Interpretation Comments Calcium Lvl (test code = Calcium Lvl) 7.9 8.5-10.5 [facility]2017-04-28 09:06:00 Test Item Value Reference Range Interpretation Comments Glucose Lvl (test code = Glucose Lvl) 143 70-99 [facility]2017-04-28 09:06:00 Test Item Value Reference Range Interpretation Comments BUN (test code = BUN) 19 7-22 [facility]2017-04-28 09:06:00 Test Item Value Reference Range Interpretation Comments Magnesium Lvl (test code = Magnesium 2.1 1.8-2.4 Lvl) [facility]2017-04-28 09:06:00 Test Item Value Reference Range Interpretation Comments Phosphorus (test code = Phosphorus) 2.8 2.5-4.5 [facility] HospitalCqczukzEDIQEDPCAL8082-11-53 09:06:00 Test Item Value Reference Range Interpretation Comments Hgb (test code = Hgb) 7.3 12.0-16.0 [facility] HospitalEgbejejCOXFCDWNSK0717-31-42 09:06:00 Test Item Value Reference Range Interpretation Comments RBC (test code = RBC) 2.77 4.20-5.40 [facility] HospitalBrsvswiGELOYSDQYH3367-52-44 09:06:00 Test Item Value Reference Range Interpretation Comments WBC (test code = WBC) 8.1 3.7-10.4 [facility] HospitalAfxtraaHTOKCEBPZU1660-44-90 09:06:00 Test Item Value Reference Range Interpretation Comments MPV (test code = MPV) 9.8 7.4-10.4 [facility] HospitalTnsggurMEQKJSTIEV7120-74-48 09:06:00 Test Item Value Reference Range Interpretation Comments Platelet (test code = Platelet) 138 133-450 [facility] HospitalFczywdgNDGPTRWPJZ4660-70-48 09:06:00 Test Item Value Reference Range Interpretation Comments MCV (test code = MCV) 78.7 80.0-98.0 [facility] HospitalRochxsbADHJPGGKCG0597-60-86 09:06:00 Test Item Value Reference Range Interpretation Comments RDW (test code = RDW) 16.6 11.5-14.5 [facility] HospitalYonzqugILEQBAVOYJ6134-82-46 09:06:00 Test Item Value Reference Range Interpretation Comments MCHC (test code = MCHC) 33.4 32.0-36.0 [facility] HospitalZhrrcgsXPCYKZZOTO6247-56-67 09:06:00 Test Item Value Reference Range Interpretation Comments Hct (test code = Hct) 21.8 36.0-48.0 [facility] HospitalOgjzcifUIRVPIRXQB4581-16-54 09:06:00 Test Item Value Reference Range Interpretation Comments MCH (test code = MCH) 26.3 pg 27.0-31.0 [facility] HospitalIststujTBTYWJAXSF8096-68-16 09:06:00 Test Item Value Reference Range Interpretation Comments Microcyte (test code = 1+ *ABN*(06/10/16 Microcyte) 4:06 AM) [facility] HospitalLorpfeaHQMUSNDQXL1077-05-05 09:06:00 Test Item Value Reference Range Interpretation Comments Segs-Bands # (test code = Segs-Bands #) 5.6 1.5-8.1 [facility] HospitalFzymgzpGPDJEMOINO1927-33-41 09:06:00 Test Item Value Reference Range Interpretation Comments Eosinophils # (test code 0.1 See_Comment [A utomated message] The = Eosinophils #) system whic h generated this result tra nsmitted reference range : <=0.5. The reference r lina was not used to int erpret this result as normal/abnormal . [facility] HospitalUnpeazbDCMCHXBYVJ0409-40-02 09:06:00 Test Item Value Reference Range Interpretation Comments Monocytes # (test code 0.5 See_Comment [Aut omated message] The = Monocytes #) system which generated this result tra nsmitted reference range : <=0.8. The reference r lina was not used to int erpret this result as normal/abnormal . [facility] HospitalJbiasizQNKEWCJYFL4561-53-78 09:06:00 Test Item Value Reference Range Interpretation Comments Basophils (test code = 0.3 See_Comment [Aut omated message] The Basophils) system which ge nerated this result tra nsmitted reference range : <=1.0. The reference r lina was not used to int erpret this result as normal/abnormal . [facility] HospitalBktvgqwSKVNFBMLYQ7918-29-28 09:06:00 Test Item Value Reference Range Interpretation Comments Lymphocytes # (test code = Lymphocytes 1.9 1.0-5.5 #) [facility] HospitalZtxmnqmBAXBWJTBOC6162-34-74 09:06:00 Test Item Value Reference Range Interpretation Comments Eosinophils (test code = 0.9 See_Comment [A utomated message] The Eosinophils) system which ge nerated this result tra nsmitted reference range : <=4.0. The reference r lina was not used to int erpret this result as normal/abnormal . [facility] HospitalYxptpnsATVZFWSDBH4778-45-90 09:06:00 Test Item Value Reference Range Interpretation Comments Monocytes (test code = Monocytes) 6.5 2.0-12.0 [facility] HospitalGzkwxzcVXLFYRDEDL8570-90-27 09:06:00 Test Item Value Reference Range Interpretation Comments Lymphocytes (test code = Lymphocytes) 23.3 20.0-40.0 [facility] HospitalYgqqkbzSKVNAQEHST6273-34-86 09:06:00 Test Item Value Reference Range Interpretation Comments Segs (test code = Segs) 69.0 45.0-75.0 [facility]2017-04-27 09:37:00 Test Item Value Reference Range Interpretation Comments eGFR (test code = eGFR) 84 [facility]2017-04-27 09:37:00 Test Item Value Reference Range Interpretation Comments Creatinine Lvl (test code = Creatinine 0.70 0.50-1.40 Lvl) [facility]2017-04-27 09:37:00 Test Item Value Reference Range Interpretation Comments Potassium Lvl (test code = Potassium 3.8 3.5-5.1 Lvl) [facility]2017-04-27 09:37:00 Test Item Value Reference Range Interpretation Comments Sodium Lvl (test code = Sodium Lvl) 140 135-145 [facility]2017-04-27 09:37:00 Test Item Value Reference Range Interpretation Comments Glucose Lvl (test code = Glucose Lvl) 215 70-99 [facility]2017-04-27 09:37:00 Test Item Value Reference Range Interpretation Comments BUN (test code = BUN) 20 7-22 [place] 076037-04-27 09:37:00 Test Item Value Reference Range Interpretation Comments Calcium Lvl (test code = Calcium Lvl) 7.6 8.5-10.5 [facility]2017-04-27 09:37:00 Test Item Value Reference Range Interpretation Comments Chloride Lvl (test code = Chloride Lvl) 105 95-109 [facility]2017-04-27 09:37:00 Test Item Value Reference Range Interpretation Comments AGAP (test code = AGAP) 10.8 10.0-20.0 [facility]2017-04-27 09:37:00 Test Item Value Reference Range Interpretation Comments CO2 (test code = CO2) 28 24-32 [facility] HospitalPzvyikrFAPVJIONAR0145-97-42 09:37:00 Test Item Value Reference Range Interpretation Comments RBC (test code = RBC) 3.07 4.20-5.40 [facility] HospitalZcpafnrUIINCOTHXA1839-43-16 09:37:00 Test Item Value Reference Range Interpretation Comments MCV (test code = MCV) 77.3 80.0-98.0 [facility] HospitalMvplqyuDCBCCANPFQ1701-51-74 09:37:00 Test Item Value Reference Range Interpretation Comments WBC (test code = WBC) 9.5 3.7-10.4 [facility] HospitalGbrvmnmSPKTQXHCNN1888-51-73 09:37:00 Test Item Value Reference Range Interpretation Comments MCHC (test code = MCHC) 33.5 32.0-36.0 [facility] HospitalVwpponsFOFNGXFVEJ8036-69-29 09:37:00 Test Item Value Reference Range Interpretation Comments RDW (test code = RDW) 16.4 11.5-14.5 [facility] HospitalZbijeltFFCAWPUZUG0497-53-04 09:37:00 Test Item Value Reference Range Interpretation Comments MCH (test code = MCH) 25.9 pg 27.0-31.0 [facility] HospitalEmhvubwMWQFBAYJXT1404-55-67 09:37:00 Test Item Value Reference Range Interpretation Comments Platelet (test code = Platelet) 153 133-450 [facility] HospitalGjpcpzvIJNXCNWNZM6350-07-89 09:37:00 Test Item Value Reference Range Interpretation Comments MPV (test code = MPV) 9.1 7.4-10.4 [facility] HospitalOifqvhfDIBLKEHRUM1599-06-28 09:37:00 Test Item Value Reference Range Interpretation Comments Microcyte (test code = 1+ *ABN*(06/09/16 Microcyte) 4:37 AM) [facility] HospitalXkirsdbEYMLNKGYMT4851-93-07 09:37:00 Test Item Value Reference Range Interpretation Comments Lymphocytes (test code = Lymphocytes) 13.1 20.0-40.0 [facility] HospitalYtrkraeZNLSJORKVJ7580-40-49 09:37:00 Test Item Value Reference Range Interpretation Comments Monocytes (test code = Monocytes) 7.3 2.0-12.0 [facility] HospitalCydfejxASUJGVKOAZ1719-95-59 09:37:00 Test Item Value Reference Range Interpretation Comments Segs-Bands # (test code = Segs-Bands #) 7.6 1.5-8.1 [facility] HospitalEcioqqsHPOCHSJMEB4884-27-58 09:37:00 Test Item Value Reference Range Interpretation Comments Basophils (test code = 0.2 See_Comment [Aut omated message] The Basophils) system which ge nerated this result tra nsmitted reference range : <=1.0. The reference r lina was not used to int erpret this result as normal/abnormal . [facility] HospitalDfgvgvkTHVOYTGGNF3795-98-97 09:37:00 Test Item Value Reference Range Interpretation Comments Segs (test code = Segs) 79.4 45.0-75.0 [facility] HospitalGooqxkpZDNFSYLSXE2359-23-40 09:37:00 Test Item Value Reference Range Interpretation Comments Lymphocytes # (test code = Lymphocytes 1.3 1.0-5.5 #) [facility] HospitalCphabobOKJMBYRRRP4835-97-05 09:37:00 Test Item Value Reference Range Interpretation Comments Monocytes # (test code 0.7 See_Comment [Aut omated message] The = Monocytes #) system which generated this result tra nsmitted reference range : <=0.8. The reference r lina was not used to int erpret this result as normal/abnormal . [facility]2017-04-27 09:37:00 Test Item Value Reference Range Interpretation Comments eGFR (test code = eGFR) 84 [facility]2017-04-27 09:37:00 Test Item Value Reference Range Interpretation Comments Creatinine Lvl (test code = Creatinine 0.70 0.50-1.40 Lvl) [facility]2017-04-27 09:37:00 Test Item Value Reference Range Interpretation Comments Potassium Lvl (test code = Potassium 3.8 3.5-5.1 Lvl) [facility]2017-04-27 09:37:00 Test Item Value Reference Range Interpretation Comments Sodium Lvl (test code = Sodium Lvl) 140 135-145 [facility]2017-04-27 09:37:00 Test Item Value Reference Range Interpretation Comments Glucose Lvl (test code = Glucose Lvl) 215 70-99 [facility]2017-04-27 09:37:00 Test Item Value Reference Range Interpretation Comments BUN (test code = BUN) 20 7-22 [facility]2017-04-27 09:37:00 Test Item Value Reference Range Interpretation Comments Calcium Lvl (test code = Calcium Lvl) 7.6 8.5-10.5 [facility]2017-04-27 09:37:00 Test Item Value Reference Range Interpretation Comments Chloride Lvl (test code = Chloride Lvl) 105 95-109 [facility]2017-04-27 09:37:00 Test Item Value Reference Range Interpretation Comments AGAP (test code = AGAP) 10.8 10.0-20.0 [facility]2017-04-27 09:37:00 Test Item Value Reference Range Interpretation Comments CO2 (test code = CO2) 28 24-32 [facility] HospitalYiudczrDWKVTBHXGT1054-68-87 09:37:00 Test Item Value Reference Range Interpretation Comments RBC (test code = RBC) 3.07 4.20-5.40 [facility] HospitalLlhfqvhSSUTEPZVJJ3291-68-91 09:37:00 Test Item Value Reference Range Interpretation Comments MCV (test code = MCV) 77.3 80.0-98.0 [facility] HospitalShsadawKEURACFKLG9080-60-93 09:37:00 Test Item Value Reference Range Interpretation Comments WBC (test code = WBC) 9.5 3.7-10.4 [facility] HospitalPkjwnxbPQXFBNLBFT1675-96-19 09:37:00 Test Item Value Reference Range Interpretation Comments MCHC (test code = MCHC) 33.5 32.0-36.0 [facility] HospitalLpsyialCBJLXZOQRG2075-92-92 09:37:00 Test Item Value Reference Range Interpretation Comments RDW (test code = RDW) 16.4 11.5-14.5 [facility] HospitalCjfqgeeSIULOOWDLO2384-75-59 09:37:00 Test Item Value Reference Range Interpretation Comments MCH (test code = MCH) 25.9 pg 27.0-31.0 [facility] HospitalLsblqywBKGSGYSPII8339-06-62 09:37:00 Test Item Value Reference Range Interpretation Comments Platelet (test code = Platelet) 153 133-450 [facility] HospitalOjjvgmjGBKUFIDMRM5892-39-08 09:37:00 Test Item Value Reference Range Interpretation Comments MPV (test code = MPV) 9.1 7.4-10.4 [facility] HospitalItaazwdRRWKXVDTXG8894-32-47 09:37:00 Test Item Value Reference Range Interpretation Comments Microcyte (test code = 1+ *ABN*(06/09/16 Microcyte) 4:37 AM) [facility] HospitalRjdjmzbBHADGLJHTC7442-77-93 09:37:00 Test Item Value Reference Range Interpretation Comments Lymphocytes (test code = Lymphocytes) 13.1 20.0-40.0 [facility] HospitalVoljpiwJHPWWUUAOQ9418-03-16 09:37:00 Test Item Value Reference Range Interpretation Comments Monocytes (test code = Monocytes) 7.3 2.0-12.0 [facility] HospitalZkjbubdVIZNGCNJGH8083-66-50 09:37:00 Test Item Value Reference Range Interpretation Comments Segs-Bands # (test code = Segs-Bands #) 7.6 1.5-8.1 [facility] HospitalBlyqkpiJIORLKDQQF5110-44-87 09:37:00 Test Item Value Reference Range Interpretation Comments Basophils (test code = 0.2 See_Comment [Aut omated message] The Basophils) system which ge nerated this result tra nsmitted reference range : <=1.0. The reference r lina was not used to int erpret this result as normal/abnormal . [facility] HospitalDvyupraIRBDXXDEEA5107-70-70 09:37:00 Test Item Value Reference Range Interpretation Comments Segs (test code = Segs) 79.4 45.0-75.0 [facility] HospitalUzzqcjiXCGMLMNOZF4166-80-56 09:37:00 Test Item Value Reference Range Interpretation Comments Lymphocytes # (test code = Lymphocytes 1.3 1.0-5.5 #) [facility] HospitalFgzbwkaRTMLALNKAQ5572-99-41 09:37:00 Test Item Value Reference Range Interpretation Comments Monocytes # (test code 0.7 See_Comment [Aut omated message] The = Monocytes #) system which generated this result tra nsmitted reference range : <=0.8. The reference r lina was not used to int erpret this result as normal/abnormal . [facility] YJDQEQWW2396[facility] 18:43:00 Test Item Value Reference Range Interpretation Comments MRSA by PCR (test Negative (06/08/16 1:43 code = MRSA by PCR) PM) [facility] [id number] 18:43:00 Test Item Value Reference Range Interpretation Comments MRSA by PCR (test Negative (06/08/16 1:43 code = MRSA by PCR) PM) [facility] BGNDFGS3637-54-60 12:38:00 Test Item Value Reference Range Interpretation Comments Antibody Scrn (test Negative (06/08/16 7:38 code = Antibody Scrn) AM) [facility] LUWSCPT2244-64-97 12:38:00 Test Item Value Reference Range Interpretation Comments ABO/Rh (test code = ABO/Rh) O POS [facility] HospitalJtluljuKYMBUYOSCA9091-19-77 12:38:00 Test Item Value Reference Range Interpretation Comments INR (test code = INR) 1.04 0.85-1.17 [facility] HospitalQveedlyMPIKJUOJKS5727-50-46 12:38:00 Test Item Value Reference Range Interpretation Comments PT (test code = PT) 13.8 s 12.0-14.7 [facility] HospitalHtnwgrzGKJDCQTYKX2644-21-16 12:38:00 Test Item Value Reference Range Interpretation Comments PTT (test code = PTT) 30.6 s 22.9-35.8 [facility] HospitalJjcujovOTISRNLUHS3381-47-45 12:38:00 Test Item Value Reference Range Interpretation Comments Eosinophils # (test code 0.2 See_Comment [A utomated message] The = Eosinophils #) system whic h generated this result tra nsmitted reference range : <=0.5. The reference r lina was not used to int erpret this result as normal/abnormal . [facility] HospitalFmztuyuYHWROOQDKT5052-35-24 12:38:00 Test Item Value Reference Range Interpretation Comments Eosinophils (test code = 1.6 See_Comment [A utomated message] The Eosinophils) system which ge nerated this result tra nsmitted reference range : <=4.0. The reference r lina was not used to int erpret this result as normal/abnormal . [facility] ZCWGFCR2327-49-89 12:38:00 Test Item Value Reference Range Interpretation Comments Antibody Scrn (test Negative (06/08/16 7:38 code = Antibody Scrn) AM) [facility] [id number] 12:38:00 Test Item Value Reference Range Interpretation Comments ABO/Rh (test code = ABO/Rh) O POS [facility] HospitalKyxwhoaPSZRDGCUCJ4562-29-86 12:38:00 Test Item Value Reference Range Interpretation Comments INR (test code = INR) 1.04 0.85-1.17 [facility]SMWCJRGRLE3628-16-63 12:38:00 Test Item Value Reference Range Interpretation Comments PT (test code = PT) 13.8 s 12.0-14.7 [facility] HospitalZacwwgsLOXARQIMTX9382-95-41 12:38:00 Test Item Value Reference Range Interpretation Comments PTT (test code = PTT) 30.6 s 22.9-35.8 [facility] HospitalVjrujquRLFCSQKQKV0092-85-32 12:38:00 Test Item Value Reference Range Interpretation Comments Eosinophils # (test code 0.2 See_Comment [A utomated message] The = Eosinophils #) system whic h generated this result tra nsmitted reference range : <=0.5. The reference r lina was not used to int erpret this result as normal/abnormal . [facility]KzfsgujSKJUCWBHER6188-18-39 12:38:00 Test Item Value Reference Range Interpretation Comments Eosinophils (test code = 1.6 See_Comment [A utomated message] The Eosinophils) system which ge nerated this result tra nsmitted reference range : <=4.0. The reference r lina was not used to int erpret this result as normal/abnormal . [facility] [employer] LFSWT8822-19-49 14:42:00 Test Item Value Reference Range Interpretation Comments eGFR (test code = eGFR) 62 [facility]2017-04-13 14:42:00 Test Item Value Reference Range Interpretation Comments Sodium Lvl (test code = Sodium Lvl) 140 135-145 [facility] [employer] [id number] 14:42:00 Test Item Value Reference Range Interpretation Comments Creatinine Lvl (test code = Creatinine 0.90 0.50-1.40 Lvl) [facility]2017-04-13 14:42:00 Test Item Value Reference Range Interpretation Comments Chloride Lvl (test code = Chloride Lvl) 102 95-109 [facility]2017-04-13 14:42:00 Test Item Value Reference Range Interpretation Comments Potassium Lvl (test code = Potassium 3.6 3.5-5.1 Lvl) [facility]2017-04-13 14:42:00 Test Item Value Reference Range Interpretation Comments CO2 (test code = CO2) 30 24-32 [facility]2017-04-13 14:42:00 Test Item Value Reference Range Interpretation Comments Calcium Lvl (test code = Calcium Lvl) 8.9 8.5-10.5 [facility]2017-04-13 14:42:00 Test Item Value Reference Range Interpretation Comments Glucose Lvl (test code = Glucose Lvl) 185 70-99 [facility]2017-04-13 14:42:00 Test Item Value Reference Range Interpretation Comments BUN (test code = BUN) 20 7-22 [facility]2017-04-13 14:42:00 Test Item Value Reference Range Interpretation Comments AGAP (test code = AGAP) 11.6 10.0-20.0 [facility] HospitalMzeutmsKHLSVXIAAG2039-60-51 14:42:00 Test Item Value Reference Range Interpretation Comments Microcyte (test code = 1+ *ABN*(05/26/16 Microcyte) 9:42 AM) [facility] HospitalLnrvoyoPZVNONLLME7528-97-89 14:42:00 Test Item Value Reference Range Interpretation Comments Monocytes # (test code 0.5 See_Comment [Aut omated message] The = Monocytes #) system which generated this result tra nsmitted reference range : <=0.8. The reference r lina was not used to int erpret this result as normal/abnormal . [facility] HospitalUqfvhojKZCXFGOYCY6265-66-93 14:42:00 Test Item Value Reference Range Interpretation Comments Eosinophils # (test code 0.2 See_Comment [A utomated message] The = Eosinophils #) system whic h generated this result tra nsmitted reference range : <=0.5. The reference r lina was not used to int erpret this result as normal/abnormal . [facility] HospitalFkauiflIMBQOIJMQH8776-10-81 14:42:00 Test Item Value Reference Range Interpretation Comments Lymphocytes # (test code = Lymphocytes 1.6 1.0-5.5 #) [facility] HospitalEmrrxmnCCNDBFEPTP2926-90-82 14:42:00 Test Item Value Reference Range Interpretation Comments Segs-Bands # (test code = Segs-Bands #) 6.9 1.5-8.1 [facility] [facility] HospitalWypagjfOSZCNGNJPR4407-74-16 14:42:00 Test Item Value Reference Range Interpretation Comments Basophils (test code = 0.4 See_Comment [Aut omated message] The Basophils) system which ge nerated this result tra nsmitted reference range : <=1.0. The reference r lina was not used to int erpret this result as normal/abnormal . [facility] HospitalUonzhtjPEFADIJKJQ6632-78-61 14:42:00 Test Item Value Reference Range Interpretation Comments Monocytes (test code = Monocytes) 4.9 2.0-12.0 [facility] HospitalFcmebxlLFJGQZNNUE5416-90-83 14:42:00 Test Item Value Reference Range Interpretation Comments Eosinophils (test code = 1.8 See_Comment [A utomated message] The Eosinophils) system which ge nerated this result tra nsmitted reference range : <=4.0. The reference r lina was not used to int erpret this result as normal/abnormal . [facility] HospitalMshrsvoWWKWNOOOFR9031-24-24 14:42:00 Test Item Value Reference Range Interpretation Comments Lymphocytes (test code = Lymphocytes) 17.4 20.0-40.0 [facility] HospitalXppwuaxUWNURKXURI8687-86-87 14:42:00 Test Item Value Reference Range Interpretation Comments Segs (test code = Segs) 75.5 45.0-75.0 [facility] HospitalVrfxrelHAFMMPLITF7448-08-62 14:42:00 Test Item Value Reference Range Interpretation Comments Platelet (test code = Platelet) 169 133-450 [facility] HospitalGcdhshdSHYOYCCAVS9863-99-79 14:42:00 Test Item Value Reference Range Interpretation Comments MCH (test code = MCH) 25.9 pg 27.0-31.0 [facility] HospitalJkczezvZSQMBTDPJL9564-99-82 14:42:00 Test Item Value Reference Range Interpretation Comments MPV (test code = MPV) 9.8 7.4-10.4 [facility] HospitalYirytdgFLXKKMOWYY8299-43-59 14:42:00 Test Item Value Reference Range Interpretation Comments RDW (test code = RDW) 16.2 11.5-14.5 [facility] HospitalOethapoUVFREWNQIA2448-85-80 14:42:00 Test Item Value Reference Range Interpretation Comments MCHC (test code = MCHC) 33.0 32.0-36.0 [facility] HospitalIwnusaiXRWXUBFCIW4945-66-34 14:42:00 Test Item Value Reference Range Interpretation Comments Hct (test code = Hct) 37.2 36.0-48.0 [facility] HospitalEggeiltMZIIEPLARY0240-10-33 14:42:00 Test Item Value Reference Range Interpretation Comments MCV (test code = MCV) 78.3 80.0-98.0 [facility] HospitalMjegpfiDRFGMBCSFG4365-35-57 14:42:00 Test Item Value Reference Range Interpretation Comments Hgb (test code = Hgb) 12.3 12.0-16.0 [facility] HospitalMxgconnGTMHMCWPVH4051-04-03 14:42:00 Test Item Value Reference Range Interpretation Comments RBC (test code = RBC) 4.75 4.20-5.40 [facility] HospitalEpaptujJCVOEOOFYL4058-36-70 14:42:00 Test Item Value Reference Range Interpretation Comments WBC (test code = WBC) 9.2 3.7-10.4 [facility] HospitalZlqfkamMAXPHKBGNE8659-72-27 14:42:00 Test Item Value Reference Range Interpretation Comments PT (test code = PT) 13.8 s 12.0-14.7 [facility] HospitalOwzmnyxWGPNJAZTKJ4038-63-43 14:42:00 Test Item Value Reference Range Interpretation Comments INR (test code = INR) 1.04 0.85-1.17 [facility] HospitalLrswqbiSXIDWFJKZU7839-36-08 14:42:00 Test Item Value Reference Range Interpretation Comments PTT (test code = PTT) 32.1 s 22.9-35.8 [facility]2017-04-13 14:42:00 Test Item Value Reference Range Interpretation Comments eGFR (test code = eGFR) 62 [facility]2017-04-13 14:42:00 Test Item Value Reference Range Interpretation Comments Sodium Lvl (test code = Sodium Lvl) 140 135-145 [facility]2017-04-13 14:42:00 Test Item Value Reference Range Interpretation Comments Creatinine Lvl (test code = Creatinine 0.90 0.50-1.40 Lvl) [facility]2017-04-13 14:42:00 Test Item Value Reference Range Interpretation Comments Chloride Lvl (test code = Chloride Lvl) 102 95-109 [facility]2017-04-13 14:42:00 Test Item Value Reference Range Interpretation Comments Potassium Lvl (test code = Potassium 3.6 3.5-5.1 Lvl) [facility]2017-04-13 14:42:00 Test Item Value Reference Range Interpretation Comments CO2 (test code = CO2) 30 24-32 [facility]2017-04-13 14:42:00 Test Item Value Reference Range Interpretation Comments Calcium Lvl (test code = Calcium Lvl) 8.9 8.5-10.5 [facility]2017-04-13 14:42:00 Test Item Value Reference Range Interpretation Comments Glucose Lvl (test code = Glucose Lvl) 185 70-99 [facility]2017-04-13 14:42:00 Test Item Value Reference Range Interpretation Comments BUN (test code = BUN) 20 7-22 [facility]2017-04-13 14:42:00 Test Item Value Reference Range Interpretation Comments AGAP (test code = AGAP) 11.6 10.0-20.0 [facility] HospitalIkmybkxLPERCGIAMZ6788-85-87 14:42:00 Test Item Value Reference Range Interpretation Comments Microcyte (test code = 1+ *ABN*(05/26/16 Microcyte) 9:42 AM) [facility] HospitalPshkcimBPWNHAXHZS0523-60-90 14:42:00 Test Item Value Reference Range Interpretation Comments Monocytes # (test code 0.5 See_Comment [Aut omated message] The = Monocytes #) system which generated this result tra nsmitted reference range : <=0.8. The reference r lina was not used to int erpret this result as normal/abnormal . [facility] HospitalKbyzczzTAUNWLQHYG1451-48-83 14:42:00 Test Item Value Reference Range Interpretation Comments Eosinophils # (test code 0.2 See_Comment [A utomated message] The = Eosinophils #) system whic h generated this result tra nsmitted reference range : <=0.5. The reference r lina was not used to int erpret this result as normal/abnormal . [facility] HospitalRckvwxwALCBSQYRMV2166-52-48 14:42:00 Test Item Value Reference Range Interpretation Comments Lymphocytes # (test code = Lymphocytes 1.6 1.0-5.5 #) [facility] HospitalQivfzhyTZKNYXPSOK0134-33-67 14:42:00 Test Item Value Reference Range Interpretation Comments Segs-Bands # (test code = Segs-Bands #) 6.9 1.5-8.1 [facility] HospitalLniaddjOGKCOOMWSO3567-88-21 14:42:00 Test Item Value Reference Range Interpretation Comments Basophils (test code = 0.4 See_Comment [Aut omated message] The Basophils) system which ge nerated this result tra nsmitted reference range : <=1.0. The reference r lina was not used to int erpret this result as normal/abnormal . [facility] HospitalPgojukjIAOPSCFBLW3182-89-09 14:42:00 Test Item Value Reference Range Interpretation Comments Monocytes (test code = Monocytes) 4.9 2.0-12.0 [facility] HospitalPsnjinsCMCAQCPPFC9475-30-63 14:42:00 Test Item Value Reference Range Interpretation Comments Eosinophils (test code = 1.8 See_Comment [A utomated message] The Eosinophils) system which ge nerated this result tra nsmitted reference range : <=4.0. The reference r lina was not used to int erpret this result as normal/abnormal . [facility] HospitalZqhbgdpUGBBILHRMO3826-70-67 14:42:00 Test Item Value Reference Range Interpretation Comments Lymphocytes (test code = Lymphocytes) 17.4 20.0-40.0 [facility] HospitalXtmsxkdBKXGDCQPGG9269-85-39 14:42:00 Test Item Value Reference Range Interpretation Comments Segs (test code = Segs) 75.5 45.0-75.0 [facility] HospitalNzdpjobXIEUQHFHLJ6932-98-37 14:42:00 Test Item Value Reference Range Interpretation Comments Platelet (test code = Platelet) 169 133-450 [facility] HospitalSmcqvayXTMSZEWJYM2499-84-42 14:42:00 Test Item Value Reference Range Interpretation Comments MCH (test code = MCH) 25.9 pg 27.0-31.0 [facility] HospitalEbnwculFJUMPAJVHQ3290-41-95 14:42:00 Test Item Value Reference Range Interpretation Comments MPV (test code = MPV) 9.8 7.4-10.4 [facility] HospitalSbgpsigILVVPJWMWZ6337-20-12 14:42:00 Test Item Value Reference Range Interpretation Comments RDW (test code = RDW) 16.2 11.5-14.5 [facility] HospitalSqxruizGVLQBUPDUY8202-99-00 14:42:00 Test Item Value Reference Range Interpretation Comments MCHC (test code = MCHC) 33.0 32.0-36.0 [facility] HospitalXqstvyoLVTASRMOCP1966-47-41 14:42:00 Test Item Value Reference Range Interpretation Comments Hct (test code = Hct) 37.2 36.0-48.0 [facility] HospitalUjoiorxYFPDNBFBWJ1065-32-55 14:42:00 Test Item Value Reference Range Interpretation Comments MCV (test code = MCV) 78.3 80.0-98.0 [facility] HospitalLxojsjiPGQKQUBLKX9611-92-79 14:42:00 Test Item Value Reference Range Interpretation Comments Hgb (test code = Hgb) 12.3 12.0-16.0 [facility] HospitalXqetyytRBAJCDDRZN8602-78-60 14:42:00 Test Item Value Reference Range Interpretation Comments RBC (test code = RBC) 4.75 4.20-5.40 [facility] HospitalAejtongTFMRHTEPOZ9205-19-82 14:42:00 Test Item Value Reference Range Interpretation Comments WBC (test code = WBC) 9.2 3.7-10.4 [facility] HospitalSpjotyoNQWIELISZX9552-65-11 14:42:00 Test Item Value Reference Range Interpretation Comments PT (test code = PT) 13.8 s 12.0-14.7 [facility] HospitalOwjvpfuQWKIZWWTIP3595-80-59 14:42:00 Test Item Value Reference Range Interpretation Comments INR (test code = INR) 1.04 0.85-1.17 [facility] HospitalHcrcfsiWTIQPERREI3851-19-04 14:42:00 Test Item Value Reference Range Interpretation Comments PTT (test code = PTT) 32.1 s 22.9-35.8 [facility] GLUCOSE FIUUUSB5958-97-12 20:21:00 Test Item Value Reference Range Interpretation Comments Gluc POC Lifscn (test code = Gluc POC 186 70-99 H Lifscn) [facility] GLUCOSE HNVCOWW1312-96-35 20:21:00 Test Item Value Reference Range Interpretation Comments Gluc POC Lifscn (test code = Gluc POC 186 70-99 H Lifscn) [facility] GLUCOSE YXAJQHD8438-76-58 16:28:00 Test Item Value Reference Range Interpretation Comments Gluc POC Lifscn (test code = Gluc POC 219 70-99 H Lifscn) [facility] GLUCOSE NCLPWFM5763-65-46 16:28:00 Test Item Value Reference Range Interpretation Comments Gluc POC Lifscn (test code = Gluc POC 219 70-99 H Lifscn) [facility] GLUCOSE AECQGRM5797-06-18 11:13:00 Test Item Value Reference Range Interpretation Comments Gluc POC Lifscn (test code = Gluc POC 201 70-99 H Lifscn) [facility] GLUCOSE MWSOTGR9004-22-44 11:13:00 Test Item Value Reference Range Interpretation Comments Comment1 (test code = Comment1) Notify RN/ [facility] GLUCOSE GVANQQP8111-46-91 11:13:00 Test Item Value Reference Range Interpretation Comments Gluc POC Lifscn (test code = Gluc POC 201 70-99 H Lifscn) [facility] GLUCOSE RYNLSYF4491-73-56 11:13:00 Test Item Value Reference Range Interpretation Comments Comment1 (test code = Comment1) Notify RN/ [facility] GLUCOSE GOUCKTV9708-87-87 02:20:00 Test Item Value Reference Range Interpretation Comments Comment1 (test code = Comment1) Notify RN/ [facility] GLUCOSE CXRYARX4673-96-52 02:20:00 Test Item Value Reference Range Interpretation Comments Comment1 (test code = Comment1) Notify RN/ [facility] GLUCOSE NYGDHFI8235-49-27 20:55:00 Test Item Value Reference Range Interpretation Comments Comment1 (test code = Comment1) Notify RN/ [facility] GLUCOSE KNNSTKR1783-51-72 20:55:00 Test Item Value Reference Range Interpretation Comments Comment1 (test code = Comment1) [facility]ax[facility]wrxQSJTXEWLS7708-75-45 10:31:00 Test Item Value Reference Range Interpretation Comments Sodium Lvl (test code = Sodium Lvl) 144 135-145 [facility]aleZwtveesGSOJTZDJZ7095-52-95 10:31:00 Test Item Value Reference Range Interpretation Comments Chloride Lvl (test code = Chloride Lvl) 105 95-109 [facility]aleTctegyzYFDYMYDWM8015-22-36 10:31:00 Test Item Value Reference Range Interpretation Comments Potassium Lvl (test code = Potassium 3.6 3.5-5.1 N Lvl) [facility]WvfdynsWBCJGFIKN4646-28-21 10:31:00 Test Item Value Reference Range Interpretation Comments eGFR (test code = eGFR) 96 [facility] CenterLnotujvVOCJMPEBJ0519-32-99 10:31:00 Test Item Value Reference Range Interpretation Comments Creatinine Lvl (test code = Creatinine 0.5 0.5-1.4 N Lvl) [facility] CenterJssrmxvHDMFRRCVX0041-27-89 10:31:00 Test Item Value Reference Range Interpretation Comments CO2 (test code = CO2) 28 24-32 [facility] CenterUmxukqiONQDCEXRP1430-75-92 10:31:00 Test Item Value Reference Range Interpretation Comments Calcium Lvl (test code = Calcium Lvl) 7.8 8.5-10.5 L [facility] CenterBrbuoezSJIGLJGHC8489-48-95 10:31:00 Test Item Value Reference Range Interpretation Comments BUN (test code = BUN) 14 7-22 [facility] CenterChuncyzQLMXQDCMA3062-28-44 10:31:00 Test Item Value Reference Range Interpretation Comments Glucose Lvl (test code = Glucose Lvl) 118 70-99 [facility] CenterXkcahozGEOHXCXDY5210-57-19 10:31:00 Test Item Value Reference Range Interpretation Comments Sodium Lvl (test code = Sodium Lvl) 144 135-145 [facility] CenterFlzjxzxERTHXNGGA6056-00-24 10:31:00 Test Item Value Reference Range Interpretation Comments Chloride Lvl (test code = Chloride Lvl) 105 95-109 [facility] CenterCjynovvHOSACCOMY4838-43-33 10:31:00 Test Item Value Reference Range Interpretation Comments Potassium Lvl (test code = Potassium 3.6 3.5-5.1 N Lvl) [facility] CenterIjdyzxgNMVKBVMLF6800-82-26 10:31:00 Test Item Value Reference Range Interpretation Comments eGFR (test code = eGFR) 96 [facility] CenterIlhqyecKWONEAYFH2190-51-07 10:31:00 Test Item Value Reference Range Interpretation Comments Creatinine Lvl (test code = Creatinine 0.5 0.5-1.4 N Lvl) [facility] CenterGnmwmrqEZCBIGMWG0153-35-92 10:31:00 Test Item Value Reference Range Interpretation Comments CO2 (test code = CO2) 28 24-32 N [facility] CenterMqqgpyeNVBGRZXCM5390-47-37 10:31:00 Test Item Value Reference Range Interpretation Comments Calcium Lvl (test code = Calcium Lvl) 7.8 8.5-10.5 L [facility] CenterKjaamfyCQNAEZKOK3701-38-53 10:31:00 Test Item Value Reference Range Interpretation Comments BUN (test code = BUN) 14 7-22 [facility] CenterBkfnfcrXDKMFMKIQ3895-08-05 10:31:00 Test Item Value Reference Range Interpretation Comments Glucose Lvl (test code = Glucose Lvl) 118 70-99 [facility] CenterDkpqrpjLSGPSTELL8663-95-42 10:31:00 Test Item Value Reference Range Interpretation Comments AGAP (test code = AGAP) 14.6 10.0-20.0 [facility] CenterEtvpraqQWXCSDYJD4501-11-20 10:31:00 Test Item Value Reference Range Interpretation Comments AGAP (test code = AGAP) 14.6 10.0-20.0 N [facility] HospitalRieatxxFWEVGQBUWZ7291-12-10 10:31:00 Test Item Value Reference Range Interpretation Comments Platelet (test code = Platelet) 183 133-450 N [facility] HospitalEnfdqmrJCVJCCRNTK1767-10-25 10:31:00 Test Item Value Reference Range Interpretation Comments MCHC (test code = MCHC) 32.4 32.0-36.0 N [facility] HospitalNoyugyeTYQGPERMBO1714-12-89 10:31:00 Test Item Value Reference Range Interpretation Comments RDW (test code = RDW) 15.7 11.5-14.5 H [facility] HospitalVktgfjvWWTATMRQIP2594-51-71 10:31:00 Test Item Value Reference Range Interpretation Comments MCH (test code = MCH) 26.8 pg 27.0-31.0 L [facility] HospitalOiancyzWRIHMLVOBO4494-19-14 10:31:00 Test Item Value Reference Range Interpretation Comments MCV (test code = MCV) 82.8 81.0-99.0 N [facility] HospitalKxcaipeUVWXAGRHOA2501-86-53 10:31:00 Test Item Value Reference Range Interpretation Comments MPV (test code = MPV) 9.9 7.4-10.4 N [facility] HospitalRacjyknTFCLKWTFGK0000-29-74 10:31:00 Test Item Value Reference Range Interpretation Comments Hct (test code = Hct) 29.4 36.0-48.0 L [facility] HospitalIfpdrgsXMATUXTXZP3043-86-70 10:31:00 Test Item Value Reference Range Interpretation Comments Hgb (test code = Hgb) 9.5 12.0-16.0 L [facility] HospitalVspomoyMIGDWUWBZW6548-73-13 10:31:00 Test Item Value Reference Range Interpretation Comments RBC (test code = RBC) 3.55 4.20-5.40 L [facility] HospitalPpyefmrDHFBCDXMDW3468-99-11 10:31:00 Test Item Value Reference Range Interpretation Comments Platelet (test code = Platelet) 183 133-450 N [facility] HospitalNtaqdrxBRTBZYQTPT5811-62-77 10:31:00 Test Item Value Reference Range Interpretation Comments WBC (test code = WBC) 8.9 3.7-10.4 N [facility] HospitalTpusaibLPXFHIWESQ6095-12-94 10:31:00 Test Item Value Reference Range Interpretation Comments Segs-Bands # (test code = Segs-Bands #) 7.2 1.5-8.1 N [facility] HospitalSfyhoicHCBRFWLMAE9616-95-36 10:31:00 Test Item Value Reference Range Interpretation Comments Basophils (test code = 0.1 See_Comment N [Aut omated message] The Basophils) system which ge nerated this result tra nsmitted reference range : <=1.0. The reference r lina was not used to int erpret this result as normal/abnormal . [facility] HospitalEguhauhGTVXXLFQXC1758-87-00 10:31:00 Test Item Value Reference Range Interpretation Comments Basophils # (test code 0.0 See_Comment N [Aut omated message] The = Basophils #) system which generated this result tra nsmitted reference range : <=0.2. The reference r lina was not used to int erpret this result as normal/abnormal . [facility] HospitalEvnpybnHSZFXPLEGE8232-41-52 10:31:00 Test Item Value Reference Range Interpretation Comments Eosinophils # (test code 0.4 See_Comment N [A utomated message] The = Eosinophils #) system whic h generated this result tra nsmitted reference range : <=0.5. The reference r lina was not used to int erpret this result as normal/abnormal . [facility] HospitalDiowaesQLTAPJVBMY8064-49-94 10:31:00 Test Item Value Reference Range Interpretation Comments Monocytes # (test code 0.4 See_Comment N [Aut omated message] The = Monocytes #) system which generated this result tra nsmitted reference range : <=0.8. The reference r lina was not used to int erpret this result as normal/abnormal . [facility] HospitalGttxruuWKLKHPKLCD4850-94-15 10:31:00 Test Item Value Reference Range Interpretation Comments Lymphocytes # (test code = Lymphocytes 0.8 1.0-5.5 L #) [facility] HospitalOwaesdjYKNQNFZMCX4958-40-83 10:31:00 Test Item Value Reference Range Interpretation Comments Eosinophils (test code = 4.8 See_Comment H [A utomated message] The Eosinophils) system which ge nerated this result tra nsmitted reference range : <=4.0. The reference r lina was not used to int erpret this result as normal/abnormal . [facility] HospitalUedwmhgOSWVVUCNWK8038-26-46 10:31:00 Test Item Value Reference Range Interpretation Comments Monocytes (test code = Monocytes) 4.8 2.0-12.0 N [facility] HospitalQwhsvfoVLGHOXQMQI0160-05-55 10:31:00 Test Item Value Reference Range Interpretation Comments Lymphocytes (test code = Lymphocytes) 8.9 20.0-40.0 L [facility] HospitalViehmzwMLNYTIVBOZ7676-17-16 10:31:00 Test Item Value Reference Range Interpretation Comments MCHC (test code = MCHC) 32.4 32.0-36.0 N [facility] HospitalSsuqhjfAKSVIPEIBR4757-88-94 10:31:00 Test Item Value Reference Range Interpretation Comments Segs (test code = Segs) 81.4 45.0-75.0 H [facility] HospitalBqxeiltSHBGRBAGGR0483-45-05 10:31:00 Test Item Value Reference Range Interpretation Comments RDW (test code = RDW) 15.7 11.5-14.5 H [facility] HospitalBwcfyuoCDPENESQRB0186-54-97 10:31:00 Test Item Value Reference Range Interpretation Comments MCH (test code = MCH) 26.8 pg 27.0-31.0 L [facility] HospitalMpvrnsoLVLLZKBAEX0695-60-42 10:31:00 Test Item Value Reference Range Interpretation Comments MCV (test code = MCV) 82.8 81.0-99.0 N [facility] HospitalNwemdsgZOVYCMFKJM0698-01-43 10:31:00 Test Item Value Reference Range Interpretation Comments MPV (test code = MPV) 9.9 7.4-10.4 N [facility] HospitalZucbxpqWDDXXUXQNL9402-14-43 10:31:00 Test Item Value Reference Range Interpretation Comments Hct (test code = Hct) 29.4 36.0-48.0 L [facility] HospitalSvhkmrbLCBZWOPTZL7970-51-21 10:31:00 Test Item Value Reference Range Interpretation Comments Hgb (test code = Hgb) 9.5 12.0-16.0 L [facility] HospitalAdybbnaAYNJJJBDRS2917-99-49 10:31:00 Test Item Value Reference Range Interpretation Comments RBC (test code = RBC) 3.55 4.20-5.40 L [facility] HospitalApdhsueEPTFSSONPO3971-66-85 10:31:00 Test Item Value Reference Range Interpretation Comments WBC (test code = WBC) 8.9 3.7-10.4 N [facility] HospitalRnaknvmMYDVWNYHRU9316-77-72 10:31:00 Test Item Value Reference Range Interpretation Comments Segs-Bands # (test code = Segs-Bands #) 7.2 1.5-8.1 N [facility] HospitalZputrofVVZXSTZULB1075-06-98 10:31:00 Test Item Value Reference Range Interpretation Comments Basophils (test code = 0.1 See_Comment N [Aut omated message] The Basophils) system which ge nerated this result tra nsmitted reference range : <=1.0. The reference r lina was not used to int erpret this result as normal/abnormal . [facility] HospitalEmzoseuZEIZGWYXTR4050-65-84 10:31:00 Test Item Value Reference Range Interpretation Comments Basophils # (test code 0.0 See_Comment N [Aut omated message] The = Basophils #) system which generated this result tra nsmitted reference range : <=0.2. The reference r lina was not used to int erpret this result as normal/abnormal . [facility] HospitalRcbpsqnGRNFZSDMUZ5001-64-31 10:31:00 Test Item Value Reference Range Interpretation Comments Eosinophils # (test code 0.4 See_Comment N [A utomated message] The = Eosinophils #) system whic h generated this result tra nsmitted reference range : <=0.5. The reference r lina was not used to int erpret this result as normal/abnormal . [facility] HospitalYaovwutAFHHFWZBHF3438-04-52 10:31:00 Test Item Value Reference Range Interpretation Comments Monocytes # (test code 0.4 See_Comment N [Aut omated message] The = Monocytes #) system which generated this result tra nsmitted reference range : <=0.8. The reference r lina was not used to int erpret this result as normal/abnormal . [facility] HospitalItpuiplGWPLYLMGZR3066-64-77 10:31:00 Test Item Value Reference Range Interpretation Comments Lymphocytes # (test code = Lymphocytes 0.8 1.0-5.5 L #) [facility] HospitalGhqvwdvJYFFCBZOFP5392-91-55 10:31:00 Test Item Value Reference Range Interpretation Comments Eosinophils (test code = 4.8 See_Comment H [A utomated message] The Eosinophils) system which ge nerated this result tra nsmitted reference range : <=4.0. The reference r lina was not used to int erpret this result as normal/abnormal . [facility] HospitalZjunpyiPSPZSHKGTS9339-69-89 10:31:00 Test Item Value Reference Range Interpretation Comments Monocytes (test code = Monocytes) 4.8 2.0-12.0 N [facility] HospitalAecodjzAZJYDLFGFY9425-06-19 10:31:00 Test Item Value Reference Range Interpretation Comments Lymphocytes (test code = Lymphocytes) 8.9 20.0-40.0 L [facility] HospitalGrgxmrnWFMMAFQVDJ2028-85-52 10:31:00 Test Item Value Reference Range Interpretation Comments Segs (test code = Segs) 81.4 45.0-75.0 H [facility] CenterMgupatyQUHWWOIHY5907-02-71 08:47:00 Test Item Value Reference Range Interpretation Comments Magnesium Lvl (test code = Magnesium 2.1 1.8-2.4 N Lvl) [facility] CenterLmpmnrpGNFFXQAIH9448-26-38 08:47:00 Test Item Value Reference Range Interpretation Comments Chloride Lvl (test code = Chloride Lvl) 106 95-109 N [facility] CenterJsypxhcGAHYYVQBY7556-46-11 08:47:00 Test Item Value Reference Range Interpretation Comments Potassium Lvl (test code = Potassium 3.5 3.5-5.1 N Lvl) [facility] CenterUpfkcjeDSUNJGBHS4516-10-85 08:47:00 Test Item Value Reference Range Interpretation Comments Sodium Lvl (test code = Sodium Lvl) 144 135-145 N [facility] CenterKljndliDGOLBWSUD1058-97-40 08:47:00 Test Item Value Reference Range Interpretation Comments Globulin (test code = Globulin) 2.7 2.0-4.0 N [facility] CenterBqgabjeQDNQJYEHQ0545-25-13 08:47:00 Test Item Value Reference Range Interpretation Comments A/G Ratio (test code = A/G Ratio) 1.0 0.7-1.6 N [facility] CenterFgqnmxuIASVXWGCL2453-59-87 08:47:00 Test Item Value Reference Range Interpretation Comments Bili Total (test code = Bili Total) 0.9 0.2-1.3 N [place] 00[address]29-03-12 08:47:00 Test Item Value Reference Range Interpretation Comments ALT (test code = ALT) 12 See_Comment N [Auto mated message] The system which ge nerated this result transmit norris reference range : <=65. The reference range was not used to interpr et this result as darshana l/abnormal. [facility] CenterGjzdvjiEWBKQDXWU0968-90-45 08:47:00 Test Item Value Reference Range Interpretation Comments Alk Phos (test code = Alk Phos) 60 39-136 N [facility] CenterQzycgnsHAEJANTTK9207-92-67 08:47:00 Test Item Value Reference Range Interpretation Comments Creatinine Lvl (test code = Creatinine 0.5 0.5-1.4 N Lvl) [facility] CenterJubpklsFFIMPRASA5248-97-27 08:47:00 Test Item Value Reference Range Interpretation Comments CO2 (test code = CO2) 31 24-32 N [facility] CenterOptqsbiQMOPERVCZ6425-77-85 08:47:00 Test Item Value Reference Range Interpretation Comments Glucose Lvl (test code = Glucose Lvl) 93 70-99 N [facility] CenterVmjupfvLXOCYETIC8750-01-42 08:47:00 Test Item Value Reference Range Interpretation Comments BUN (test code = BUN) 14 7-22 N [facility] CenterCoyfkzxAYSCCPPOG5437-36-31 08:47:00 Test Item Value Reference Range Interpretation Comments AGAP (test code = AGAP) 10.5 10.0-20.0 N [facility] CenterDuoqrcsPOXRRBUIB3667-35-91 08:47:00 Test Item Value Reference Range Interpretation Comments Total Protein (test code = Total 5.3 6.4-8.4 L Protein) [facility] CenterKciphbvDQNNKOOHY8853-40-24 08:47:00 Test Item Value Reference Range Interpretation Comments Albumin Lvl (test code = Albumin Lvl) 2.6 3.5-5.0 L [facility] CenterGcskoxxQSHVRVTCW0237-91-27 08:47:00 Test Item Value Reference Range Interpretation Comments Calcium Lvl (test code = Calcium Lvl) 7.6 8.5-10.5 L [facility] CenterMujkajsAMXCHTKHZ8837-80-45 08:47:00 Test Item Value Reference Range Interpretation Comments B/C Ratio (test code = B/C Ratio) 28 6-25 H [facility] CenterCklvvbhQGSIWWTED7399-01-81 08:47:00 Test Item Value Reference Range Interpretation Comments AST (test code = AST) 9 See_Comment N [Auto mated message] The system which ge nerated this result transmit norris reference range : <=37. The reference range was not used to interpr et this result as darshana l/abnormal. [facility] CenterTqowbpiKWWXCFXGT4174-44-20 08:47:00 Test Item Value Reference Range Interpretation Comments eGFR (test code = eGFR) 96 [facility] HospitalReynjggRPPGONAMCX5981-85-12 08:47:00 Test Item Value Reference Range Interpretation Comments Monocytes # (test code 0.4 See_Comment N [Aut omated message] The = Monocytes #) system which generated this result tra nsmitted reference range : <=0.8. The reference r lina was not used to int erpret this result as normal/abnormal . [facility] HospitalWvsiuppVCKHLFLKIJ7822-53-23 08:47:00 Test Item Value Reference Range Interpretation Comments Eosinophils # (test code 0.3 See_Comment N [A utomated message] The = Eosinophils #) system whic h generated this result tra nsmitted reference range : <=0.5. The reference r lina was not used to int erpret this result as normal/abnormal . [facility] HospitalNjfhzfpWYICPCDWAO5742-05-34 08:47:00 Test Item Value Reference Range Interpretation Comments Basophils # (test code 0.0 See_Comment N [Aut omated message] The = Basophils #) system which generated this result tra nsmitted reference range : <=0.2. The reference r lina was not used to int erpret this result as normal/abnormal . [facility] HospitalDohirjkKYWRLNIORL6796-55-10 08:47:00 Test Item Value Reference Range Interpretation Comments Eosinophils (test code = 3.3 See_Comment N [A utomated message] The Eosinophils) system which ge nerated this result tra nsmitted reference range : <=4.0. The reference r lina was not used to int erpret this result as normal/abnormal . [facility] HospitalJrwohdcKXAUIPGQWS6821-82-37 08:47:00 Test Item Value Reference Range Interpretation Comments Basophils (test code = 0.2 See_Comment N [Aut omated message] The Basophils) system which ge nerated this result tra nsmitted reference range : <=1.0. The reference r lina was not used to int erpret this result as normal/abnormal . [facility] HospitalBdckcznYTDOEMFOEG1139-46-36 08:47:00 Test Item Value Reference Range Interpretation Comments Segs-Bands # (test code = Segs-Bands #) 7.4 1.5-8.1 N [facility] HospitalWmoxpweGLUVHJNJPE1291-40-52 08:47:00 Test Item Value Reference Range Interpretation Comments Lymphocytes # (test code = Lymphocytes 0.9 1.0-5.5 L #) [facility] HospitalUpwmwwlQMMTJGHIMU2438-31-45 08:47:00 Test Item Value Reference Range Interpretation Comments Monocytes (test code = Monocytes) 4.7 2.0-12.0 N [facility] HospitalRqgqnjzFEYKPAJNWL7892-17-63 08:47:00 Test Item Value Reference Range Interpretation Comments Lymphocytes (test code = Lymphocytes) 10.1 20.0-40.0 L [facility] HospitalScfzillIEETBMPOJL1309-21-40 08:47:00 Test Item Value Reference Range Interpretation Comments Segs (test code = Segs) 81.7 45.0-75.0 H [facility] HospitalPqzrpceTGDZQTYGBK1847-62-06 08:47:00 Test Item Value Reference Range Interpretation Comments MPV (test code = MPV) 9.8 7.4-10.4 N [facility] HospitalGeraroeOXUUWYQJHK2735-37-25 08:47:00 Test Item Value Reference Range Interpretation Comments MCHC (test code = MCHC) 32.4 32.0-36.0 N [facility] HospitalOpvohisSSTZMAPKXK5572-38-14 08:47:00 Test Item Value Reference Range Interpretation Comments RDW (test code = RDW) 15.8 11.5-14.5 H [facility] HospitalKyfzyliFQKERFULQX0509-08-86 08:47:00 Test Item Value Reference Range Interpretation Comments Platelet (test code = Platelet) 174 133-450 N [facility] HospitalHbytybyOTJVTTCLIN6523-79-17 08:47:00 Test Item Value Reference Range Interpretation Comments Hct (test code = Hct) 29.1 36.0-48.0 L [facility] HospitalJfhkcrhPSSOPWTJWF3022-02-97 08:47:00 Test Item Value Reference Range Interpretation Comments RBC (test code = RBC) 3.53 4.20-5.40 L [facility] HospitalBbcrftaRYSCYBILTD4261-52-46 08:47:00 Test Item Value Reference Range Interpretation Comments WBC (test code = WBC) 9.1 3.7-10.4 N [facility] HospitalVbgrkgrKVZFFQTZZK2017-26-36 08:47:00 Test Item Value Reference Range Interpretation Comments Hgb (test code = Hgb) 9.4 12.0-16.0 L [facility] HospitalWuwigjcTWGUZECYHU4921-90-62 08:47:00 Test Item Value Reference Range Interpretation Comments MCH (test code = MCH) 26.7 pg 27.0-31.0 L [facility] HospitalMguakmzQAZQTQDTGR4966-79-96 08:47:00 Test Item Value Reference Range Interpretation Comments MCV (test code = MCV) 82.4 81.0-99.0 N [facility] CenterSynvoqyRZJSIJYLL0901-26-58 08:47:00 Test Item Value Reference Range Interpretation Comments Magnesium Lvl (test code = Magnesium 2.1 1.8-2.4 N Lvl) [facility] CenterMijlxrgQUPZBJBDK8674-96-65 08:47:00 Test Item Value Reference Range Interpretation Comments Chloride Lvl (test code = Chloride Lvl) 106 95-109 N [facility] CenterWoqaybfDABZRJDMT5812-85-70 08:47:00 Test Item Value Reference Range Interpretation Comments Potassium Lvl (test code = Potassium 3.5 3.5-5.1 N Lvl) [facility] CenterLxffkktOIIQJXEFU1969-83-78 08:47:00 Test Item Value Reference Range Interpretation Comments Sodium Lvl (test code = Sodium Lvl) 144 135-145 N [facility] CenterZclacqtXDTTVRLGO5481-58-14 08:47:00 Test Item Value Reference Range Interpretation Comments Globulin (test code = Globulin) 2.7 2.0-4.0 N [facility] CenterFitojukXXPATNVCG6157-82-64 08:47:00 Test Item Value Reference Range Interpretation Comments A/G Ratio (test code = A/G Ratio) 1.0 0.7-1.6 N [facility] CenterSggsvucGZFPZXVUY1812-71-38 08:47:00 Test Item Value Reference Range Interpretation Comments Bili Total (test code = Bili Total) 0.9 0.2-1.3 N [facility] CenterIuefxxxCTTWQDMWE6108-91-44 08:47:00 Test Item Value Reference Range Interpretation Comments ALT (test code = ALT) 12 See_Comment N [Auto mated message] The system which ge nerated this result transmit norris reference range : <=65. The reference range was not used to interpr et this result as darshana l/abnormal. [facility] CenterIqcrgxdUQWLDLZTN0891-27-77 08:47:00 Test Item Value Reference Range Interpretation Comments Alk Phos (test code = Alk Phos) 60 39-136 N [facility] CenterBznkkplXICXVNSKI3759-84-65 08:47:00 Test Item Value Reference Range Interpretation Comments Creatinine Lvl (test code = Creatinine 0.5 0.5-1.4 N Lvl) [facility] CenterQstmhiyCDDTREHYQ6274-80-74 08:47:00 Test Item Value Reference Range Interpretation Comments CO2 (test code = CO2) 31 24-32 N [facility] CenterCgmjfofZWGTEYEUM5581-16-91 08:47:00 Test Item Value Reference Range Interpretation Comments Glucose Lvl (test code = Glucose Lvl) 93 70-99 N [facility] CenterIashcksFSDFAHGDG7396-43-42 08:47:00 Test Item Value Reference Range Interpretation Comments BUN (test code = BUN) 14 7-22 N [facility] CenterKqxoihfCSVASGBZT0353-84-04 08:47:00 Test Item Value Reference Range Interpretation Comments AGAP (test code = AGAP) 10.5 10.0-20.0 N [facility] CenterRqgkjedZHSQKZYMN8770-67-71 08:47:00 Test Item Value Reference Range Interpretation Comments Total Protein (test code = Total 5.3 6.4-8.4 L Protein) [facility] CenterYmdpahzMDJKYFBZO7672-01-88 08:47:00 Test Item Value Reference Range Interpretation Comments Albumin Lvl (test code = Albumin Lvl) 2.6 3.5-5.0 L [facility] CenterJyvwcsaIAYRJTEXR8844-88-22 08:47:00 Test Item Value Reference Range Interpretation Comments Calcium Lvl (test code = Calcium Lvl) 7.6 8.5-10.5 L [facility] CenterJlwkpvoGMYZRNEWI1739-83-13 08:47:00 Test Item Value Reference Range Interpretation Comments B/C Ratio (test code = B/C Ratio) 28 6-25 H [facility] CenterMlfqrbhJQRCLFRHC4328-83-25 08:47:00 Test Item Value Reference Range Interpretation Comments AST (test code = AST) 9 See_Comment N [Auto mated message] The system which ge nerated this result transmit norris reference range : <=37. The reference range was not used to interpr et this result as darshana l/abnormal. [facility] CenterLaheaqlDOBDVXPRO3564-23-06 08:47:00 Test Item Value Reference Range Interpretation Comments eGFR (test code = eGFR) 96 [facility] HospitalSynjkavUNPZQLDUXT2176-45-13 08:47:00 Test Item Value Reference Range Interpretation Comments Monocytes # (test code 0.4 See_Comment N [Aut omated message] The = Monocytes #) system which generated this result tra nsmitted reference range : <=0.8. The reference r lina was not used to int erpret this result as normal/abnormal . [facility] HospitalSavqzdpBCLKSMPXDD4853-33-89 08:47:00 Test Item Value Reference Range Interpretation Comments Eosinophils # (test code 0.3 See_Comment N [A utomated message] The = Eosinophils #) system whic h generated this result tra nsmitted reference range : <=0.5. The reference r lina was not used to int erpret this result as normal/abnormal . [facility] HospitalAqkeohpBGNRTXZTHD8537-13-61 08:47:00 Test Item Value Reference Range Interpretation Comments Basophils # (test code 0.0 See_Comment N [Aut omated message] The = Basophils #) system which generated this result tra nsmitted reference range : <=0.2. The reference r lina was not used to int erpret this result as normal/abnormal . [facility] HospitalYhdjgcqGVJOIHQUKX1230-61-40 08:47:00 Test Item Value Reference Range Interpretation Comments Eosinophils (test code = 3.3 See_Comment N [A utomated message] The Eosinophils) system which ge nerated this result tra nsmitted reference range : <=4.0. The reference r lina was not used to int erpret this result as normal/abnormal . [facility] HospitalAbkskdxNSPRSNJCQS9766-33-26 08:47:00 Test Item Value Reference Range Interpretation Comments Basophils (test code = 0.2 See_Comment N [Aut omated message] The Basophils) system which ge nerated this result tra nsmitted reference range : <=1.0. The reference r lina was not used to int erpret this result as normal/abnormal . [facility] HospitalSzvkqqgFZLFLRVCQD8093-37-22 08:47:00 Test Item Value Reference Range Interpretation Comments Segs-Bands # (test code = Segs-Bands #) 7.4 1.5-8.1 N [facility] HospitalSlooylqMIODGNUKSK4065-53-42 08:47:00 Test Item Value Reference Range Interpretation Comments Lymphocytes # (test code = Lymphocytes 0.9 1.0-5.5 L #) [facility] HospitalHkpkyckTJAFEWSFRB1703-69-68 08:47:00 Test Item Value Reference Range Interpretation Comments Monocytes (test code = Monocytes) 4.7 2.0-12.0 N [facility] HospitalLgxbkpmNQXQWVXPUV4201-26-90 08:47:00 Test Item Value Reference Range Interpretation Comments Lymphocytes (test code = Lymphocytes) 10.1 20.0-40.0 L [facility] HospitalXdjkqjtSRKLBTOGDT2763-73-08 08:47:00 Test Item Value Reference Range Interpretation Comments Segs (test code = Segs) 81.7 45.0-75.0 H [facility] HospitalPksbrruGPSZMFCLUM1678-47-11 08:47:00 Test Item Value Reference Range Interpretation Comments MPV (test code = MPV) 9.8 7.4-10.4 N [facility] HospitalXfwkqtuKUXGZJDTVG0753-24-20 08:47:00 Test Item Value Reference Range Interpretation Comments MCHC (test code = MCHC) 32.4 32.0-36.0 N [facility] HospitalYlsbfofADSCAISJJB4902-96-84 08:47:00 Test Item Value Reference Range Interpretation Comments RDW (test code = RDW) 15.8 11.5-14.5 H [facility] HospitalDmqimepEGZKNRDJVR9929-24-65 08:47:00 Test Item Value Reference Range Interpretation Comments Platelet (test code = Platelet) 174 133-450 N [facility] HospitalCfhechuPBBGPTYZRR7898-80-38 08:47:00 Test Item Value Reference Range Interpretation Comments Hct (test code = Hct) 29.1 36.0-48.0 L [facility] HospitalTcidqxrQTIUPYVPKR3516-86-05 08:47:00 Test Item Value Reference Range Interpretation Comments RBC (test code = RBC) 3.53 4.20-5.40 L [facility] HospitalJfhvjizXULEZDNYSX7779-16-60 08:47:00 Test Item Value Reference Range Interpretation Comments WBC (test code = WBC) 9.1 3.7-10.4 N [facility] HospitalXlkqjpwAREUTGDFSG7271-12-89 08:47:00 Test Item Value Reference Range Interpretation Comments Hgb (test code = Hgb) 9.4 12.0-16.0 L [facility] HospitalFjvcbfkERKWTULKDX2622-83-01 08:47:00 Test Item Value Reference Range Interpretation Comments MCH (test code = MCH) 26.7 pg 27.0-31.0 L [facility] HospitalVreupmaECCESSESZK9474-04-85 08:47:00 Test Item Value Reference Range Interpretation Comments MCV (test code = MCV) 82.4 81.0-99.0 N [facility] CenterTzxrhqaFJRVPIQDQ7806-63-35 10:08:00 Test Item Value Reference Range Interpretation Comments Magnesium Lvl (test code = Magnesium 2.0 1.8-2.4 N Lvl) [facility] CenterQndfkonZGYEWWQZY4352-41-65 10:08:00 Test Item Value Reference Range Interpretation Comments A/G Ratio (test code = A/G Ratio) 1.0 0.7-1.6 N [facility] CenterSpiraluKLKVZXUBV7874-09-82 10:08:00 Test Item Value Reference Range Interpretation Comments Globulin (test code = Globulin) 2.8 2.0-4.0 N [facility] CenterSntdysvMGCNRJFIS5769-50-91 10:08:00 Test Item Value Reference Range Interpretation Comments B/C Ratio (test code = B/C Ratio) 26 6-25 H [facility] CenterBrkdycfJTIGUXMSO0141-55-06 10:08:00 Test Item Value Reference Range Interpretation Comments AGAP (test code = AGAP) 13.8 10.0-20.0 N [facility] CenterIaoyutgDQULJICON0319-54-26 10:08:00 Test Item Value Reference Range Interpretation Comments ALT (test code = ALT) 16 See_Comment N [Auto mated message] The system which ge nerated this result transmit norris reference range : <=65. The reference range was not used to interpr et this result as darshana l/abnormal. [facility] CenterTzzwgqrACJHMMSZX4575-24-50 10:08:00 Test Item Value Reference Range Interpretation Comments Alk Phos (test code = Alk Phos) 70 39-136 N [facility] CenterXtsqplhIEYDMVIZM9600-16-79 10:08:00 Test Item Value Reference Range Interpretation Comments Total Protein (test code = Total 5.5 6.4-8.4 L Protein) [facility] CenterIudieyjDVAOIMJKN9371-43-17 10:08:00 Test Item Value Reference Range Interpretation Comments Albumin Lvl (test code = Albumin Lvl) 2.7 3.5-5.0 L [facility] CenterVnqlnzzHMIDRWMKS0052-96-83 10:08:00 Test Item Value Reference Range Interpretation Comments Bili Total (test code = Bili Total) 0.5 0.2-1.3 N [facility] CenterGjwlvfrQMMLSWDUK9396-09-94 10:08:00 Test Item Value Reference Range Interpretation Comments AST (test code = AST) 10 See_Comment N [Auto mated message] The system which ge nerated this result transmit norris reference range : <=37. The reference range was not used to interpr et this result as darshana l/abnormal. [facility] CenterRmdcfvgQOUBEAAYR2145-60-80 10:08:00 Test Item Value Reference Range Interpretation Comments eGFR (test code = eGFR) 96 [facility] CenterGqgjbzhBGAHMXRTH3263-20-91 10:08:00 Test Item Value Reference Range Interpretation Comments BUN (test code = BUN) 13 7-22 N [facility] CenterFjqhlhaIPSSDEPOJ3235-71-55 10:08:00 Test Item Value Reference Range Interpretation Comments Creatinine Lvl (test code = Creatinine 0.5 0.5-1.4 N Lvl) [facility] CenterRzftaolGLBVWSXHZ8596-67-20 10:08:00 Test Item Value Reference Range Interpretation Comments Sodium Lvl (test code = Sodium Lvl) 146 135-145 H [facility] CenterHqpnlqiWRWYEESCJ0520-41-80 10:08:00 Test Item Value Reference Range Interpretation Comments Potassium Lvl (test code = Potassium 3.8 3.5-5.1 N Lvl) [facility] CenterQwlcvyrZLGHARTKP1811-24-08 10:08:00 Test Item Value Reference Range Interpretation Comments Chloride Lvl (test code = Chloride Lvl) 108 95-109 N [facility] CenterJyihfkgAMWTQBFHJ7663-58-63 10:08:00 Test Item Value Reference Range Interpretation Comments Glucose Lvl (test code = Glucose Lvl) 114 70-99 H [facility] CenterMzdtytdAUXFFRCFJ0541-33-15 10:08:00 Test Item Value Reference Range Interpretation Comments Calcium Lvl (test code = Calcium Lvl) 7.4 8.5-10.5 L [facility] CenterSbcgsavDZHELFQHJ3518-22-55 10:08:00 Test Item Value Reference Range Interpretation Comments CO2 (test code = CO2) 28 24-32 N [facility] HospitalTbscgbpDLYJNBGBIX7976-67-59 10:08:00 Test Item Value Reference Range Interpretation Comments MPV (test code = MPV) 9.9 7.4-10.4 N [facility] HospitalSlynxxuBEWUWIQDGP5696-00-15 10:08:00 Test Item Value Reference Range Interpretation Comments Platelet (test code = Platelet) 171 133-450 N [facility] HospitalObcypykNLBXUNHPSL7439-01-40 10:08:00 Test Item Value Reference Range Interpretation Comments RDW (test code = RDW) 15.9 11.5-14.5 H [facility] HospitalJqaepecNTPEHLOXEU1389-88-73 10:08:00 Test Item Value Reference Range Interpretation Comments MCHC (test code = MCHC) 32.4 32.0-36.0 N [facility] HospitalRukzvurAHIIWIRAJA8321-19-17 10:08:00 Test Item Value Reference Range Interpretation Comments Hct (test code = Hct) 30.6 36.0-48.0 L [facility] HospitalTulrzlpJYLKEGEYMA6998-62-80 10:08:00 Test Item Value Reference Range Interpretation Comments RBC (test code = RBC) 3.70 4.20-5.40 L [facility] HospitalBkrspnyBPWFCGJKFG9861-45-35 10:08:00 Test Item Value Reference Range Interpretation Comments WBC (test code = WBC) 11.2 3.7-10.4 H [facility] HospitalTrfrtuyNHYWWTAOUI2710-76-77 10:08:00 Test Item Value Reference Range Interpretation Comments Hgb (test code = Hgb) 9.9 12.0-16.0 L [facility] HospitalTcwlheiJJECDSJGQS7191-05-57 10:08:00 Test Item Value Reference Range Interpretation Comments MCV (test code = MCV) 82.7 81.0-99.0 N [facility] HospitalRofqwjsLGRTBWXWNF1271-71-73 10:08:00 Test Item Value Reference Range Interpretation Comments MCH (test code = MCH) 26.8 pg 27.0-31.0 L [facility] HospitalIjuklztXQNJFVAIFP9848-30-32 10:08:00 Test Item Value Reference Range Interpretation Comments Eosinophils (test code = 2.0 See_Comment N [A utomated message] The Eosinophils) system which ge nerated this result tra nsmitted reference range : <=4.0. The reference r lina was not used to int erpret this result as normal/abnormal . [facility] HospitalVgkzsfkDRLZSMWQOR3885-83-14 10:08:00 Test Item Value Reference Range Interpretation Comments Monocytes (test code = Monocytes) 4.0 2.0-12.0 N [facility] HospitalIfjribaDAYPTIWYED1946-69-23 10:08:00 Test Item Value Reference Range Interpretation Comments Basophils (test code = 0.1 See_Comment N [Aut omated message] The Basophils) system which ge nerated this result tra nsmitted reference range : <=1.0. The reference r lina was not used to int erpret this result as normal/abnormal . [facility] HospitalDjxghstDLUONCHXDQ5616-89-22 10:08:00 Test Item Value Reference Range Interpretation Comments Basophils # (test code 0.0 See_Comment N [Aut omated message] The = Basophils #) system which generated this result tra nsmitted reference range : <=0.2. The reference r lina was not used to int erpret this result as normal/abnormal . [facility] HospitalHjrysvkTBFTFUBLRO4432-56-14 10:08:00 Test Item Value Reference Range Interpretation Comments Eosinophils # (test code 0.2 See_Comment N [A utomated message] The = Eosinophils #) system whic h generated this result tra nsmitted reference range : <=0.5. The reference r lina was not used to int erpret this result as normal/abnormal . [facility] HospitalZujbckjDAKNQQWMED2153-00-27 10:08:00 Test Item Value Reference Range Interpretation Comments Lymphocytes # (test code = Lymphocytes 1.4 1.0-5.5 N #) [facility] HospitalOnvpfngJPXKQUVQER9952-96-39 10:08:00 Test Item Value Reference Range Interpretation Comments Segs-Bands # (test code = Segs-Bands #) 9.1 1.5-8.1 H [facility] HospitalThyvkjlDTKUVGMQSP9210-17-89 10:08:00 Test Item Value Reference Range Interpretation Comments Monocytes # (test code 0.5 See_Comment N [Aut omated message] The = Monocytes #) system which generated this result tra nsmitted reference range : <=0.8. The reference r lina was not used to int erpret this result as normal/abnormal . [facility] HospitalPhxvjuaLZEPHJPIJO5826-47-87 10:08:00 Test Item Value Reference Range Interpretation Comments Segs (test code = Segs) 81.5 45.0-75.0 H [facility] HospitalNabzmlkJKDHOPWRZO3796-89-00 10:08:00 Test Item Value Reference Range Interpretation Comments Lymphocytes (test code = Lymphocytes) 12.4 20.0-40.0 L [facility] CenterHxrlfbgIGLZCCRGA0714-78-73 10:08:00 Test Item Value Reference Range Interpretation Comments Magnesium Lvl (test code = Magnesium 2.0 1.8-2.4 N Lvl) [facility] CenterJvsnxrtZIZFFPUYC1907-11-04 10:08:00 Test Item Value Reference Range Interpretation Comments A/G Ratio (test code = A/G Ratio) 1.0 0.7-1.6 N [facility] CenterLobutjiNUIOFWWJZ4308-15-67 10:08:00 Test Item Value Reference Range Interpretation Comments Globulin (test code = Globulin) 2.8 2.0-4.0 N [facility] CenterAhgdpbkMYSYWUGFB5272-78-29 10:08:00 Test Item Value Reference Range Interpretation Comments B/C Ratio (test code = B/C Ratio) 26 6-25 H [facility] CenterTunvuvqZSPGXBICD3524-65-14 10:08:00 Test Item Value Reference Range Interpretation Comments AGAP (test code = AGAP) 13.8 10.0-20.0 N [facility] CenterBmlvpqxPQDOZKTCN5681-30-19 10:08:00 Test Item Value Reference Range Interpretation Comments ALT (test code = ALT) 16 See_Comment N [Auto mated message] The system which ge nerated this result transmit norris reference range : <=65. The reference range was not used to interpr et this result as darshana l/abnormal. [facility] CenterKtpntsqQVLUWPAVH6320-42-15 10:08:00 Test Item Value Reference Range Interpretation Comments Alk Phos (test code = Alk Phos) 70 39-136 N [facility] CenterWmxlllpOEVZYILSL6548-65-74 10:08:00 Test Item Value Reference Range Interpretation Comments Total Protein (test code = Total 5.5 6.4-8.4 L Protein) [facility] CenterBbqukpoNRPRCBQKM4446-96-38 10:08:00 Test Item Value Reference Range Interpretation Comments Albumin Lvl (test code = Albumin Lvl) 2.7 3.5-5.0 L [facility] CenterVdoiabcVQHWNOQER7545-64-24 10:08:00 Test Item Value Reference Range Interpretation Comments Bili Total (test code = Bili Total) 0.5 0.2-1.3 N [facility] CenterImhbowtKRJSTTFKF6630-08-04 10:08:00 Test Item Value Reference Range Interpretation Comments AST (test code = AST) 10 See_Comment N [Auto mated message] The system which ge nerated this result transmit norris reference range : <=37. The reference range was not used to interpr et this result as darshana l/abnormal. [facility] CenterRkelpfqIZXNWLHHF3758-40-06 10:08:00 Test Item Value Reference Range Interpretation Comments eGFR (test code = eGFR) 96 [facility] CenterUummrrhFHWKTGDDD3943-65-75 10:08:00 Test Item Value Reference Range Interpretation Comments BUN (test code = BUN) 13 7-22 N [facility] CenterRxkarheKOFIAQRJW5826-62-51 10:08:00 Test Item Value Reference Range Interpretation Comments Creatinine Lvl (test code = Creatinine 0.5 0.5-1.4 N Lvl) [facility] CenterItjhafoHNZSEDGPD7978-28-41 10:08:00 Test Item Value Reference Range Interpretation Comments Sodium Lvl (test code = Sodium Lvl) 146 135-145 H [facility] CenterOgmteqkUNHBCPADQ0080-41-97 10:08:00 Test Item Value Reference Range Interpretation Comments Potassium Lvl (test code = Potassium 3.8 3.5-5.1 N Lvl) [facility] CenterIwupghcVDGISXAUL4682-57-69 10:08:00 Test Item Value Reference Range Interpretation Comments Chloride Lvl (test code = Chloride Lvl) 108 95-109 N [facility] CenterSyheaqtHEFUGCONU6188-71-01 10:08:00 Test Item Value Reference Range Interpretation Comments Glucose Lvl (test code = Glucose Lvl) 114 70-99 H [facility] CenterJjpinawCBKLVUQZE1313-91-62 10:08:00 Test Item Value Reference Range Interpretation Comments Calcium Lvl (test code = Calcium Lvl) 7.4 8.5-10.5 L [facility] CenterLgmhnvvOURMKSDJH6717-27-49 10:08:00 Test Item Value Reference Range Interpretation Comments CO2 (test code = CO2) 28 24-32 N [facility]QxmzuntPYXRVHTRRP3829-32-91 10:08:00 Test Item Value Reference Range Interpretation Comments MPV (test code = MPV) 9.9 7.4-10.4 N [facility] HospitalNoavzwnBCASFCRYRV2090-39-77 10:08:00 Test Item Value Reference Range Interpretation Comments Platelet (test code = Platelet) 171 133-450 N [facility] HospitalUncxjakQSGUHATITW7060-46-60 10:08:00 Test Item Value Reference Range Interpretation Comments RDW (test code = RDW) 15.9 11.5-14.5 H [facility] HospitalVlmbglrJDEEGTSWGH8039-53-21 10:08:00 Test Item Value Reference Range Interpretation Comments MCHC (test code = MCHC) 32.4 32.0-36.0 N [facility] HospitalYpvpdpzDOWCPYOSCX9823-77-72 10:08:00 Test Item Value Reference Range Interpretation Comments Hct (test code = Hct) 30.6 36.0-48.0 L [facility] HospitalWabatnpIQPSBDRSMT5342-15-52 10:08:00 Test Item Value Reference Range Interpretation Comments RBC (test code = RBC) 3.70 4.20-5.40 L [facility] HospitalFiiysleTLZVOHTCRY7457-90-42 10:08:00 Test Item Value Reference Range Interpretation Comments WBC (test code = WBC) 11.2 3.7-10.4 H [facility] HospitalIktaaknBTBMEHPPYH2604-45-95 10:08:00 Test Item Value Reference Range Interpretation Comments Hgb (test code = Hgb) 9.9 12.0-16.0 L [facility] HospitalIcqdrckZNFSTFMGCJ3337-09-97 10:08:00 Test Item Value Reference Range Interpretation Comments MCV (test code = MCV) 82.7 81.0-99.0 N [facility] HospitalOssbckdWKQQFLDRZA8139-40-78 10:08:00 Test Item Value Reference Range Interpretation Comments MCH (test code = MCH) 26.8 pg 27.0-31.0 L [facility] HospitalKorqumgCGTBKOENMI1475-79-74 10:08:00 Test Item Value Reference Range Interpretation Comments Eosinophils (test code = 2.0 See_Comment N [A utomated message] The Eosinophils) system which ge nerated this result tra nsmitted reference range : <=4.0. The reference r lina was not used to int erpret this result as normal/abnormal . [facility] HospitalAycnictQFWSCPFQXK4361-86-77 10:08:00 Test Item Value Reference Range Interpretation Comments Monocytes (test code = Monocytes) 4.0 2.0-12.0 N [facility] HospitalTyhgkolCHIEAYJCCT7509-01-78 10:08:00 Test Item Value Reference Range Interpretation Comments Basophils (test code = 0.1 See_Comment N [Aut omated message] The Basophils) system which ge nerated this result tra nsmitted reference range : <=1.0. The reference r lina was not used to int erpret this result as normal/abnormal . [facility] HospitalUrvkovjMDBAQFGWGQ4351-11-44 10:08:00 Test Item Value Reference Range Interpretation Comments Basophils # (test code 0.0 See_Comment N [Aut omated message] The = Basophils #) system which generated this result tra nsmitted reference range : <=0.2. The reference r lina was not used to int erpret this result as normal/abnormal . [facility] HospitalVuexatnEAXUEBRJFP2332-59-39 10:08:00 Test Item Value Reference Range Interpretation Comments Eosinophils # (test code 0.2 See_Comment N [A utomated message] The = Eosinophils #) system whic h generated this result tra nsmitted reference range : <=0.5. The reference r lina was not used to int erpret this result as normal/abnormal . [facility] HospitalLyojcwhQMKAPBCTCL4226-06-86 10:08:00 Test Item Value Reference Range Interpretation Comments Lymphocytes # (test code = Lymphocytes 1.4 1.0-5.5 N #) [facility] HospitalJkijckyKONNVSZUDE5977-57-86 10:08:00 Test Item Value Reference Range Interpretation Comments Segs-Bands # (test code = Segs-Bands #) 9.1 1.5-8.1 H [facility] HospitalZooaiiuLUUBZGMOKZ9887-01-41 10:08:00 Test Item Value Reference Range Interpretation Comments Monocytes # (test code 0.5 See_Comment N [Aut omated message] The = Monocytes #) system which generated this result tra nsmitted reference range : <=0.8. The reference r lina was not used to int erpret this result as normal/abnormal . [facility] HospitalOxhptzlEXJCYEVGCW8558-87-65 10:08:00 Test Item Value Reference Range Interpretation Comments Segs (test code = Segs) 81.5 45.0-75.0 H [facility] HospitalNzcqkvzCSFJEFNWHX0231-50-75 10:08:00 Test Item Value Reference Range Interpretation Comments Lymphocytes (test code = Lymphocytes) 12.4 20.0-40.0 L [facility]AgpixucIwfemrllmexo7298-82-38 00:40:07 Test Item Value Reference Range Interpretation Comments Culture: Urine (test code = Culture: Urine) [facility] CenterDixmzleFzsyltdujsrg4479-18-51 00:40:07 Test Item Value Reference Range Interpretation Comments Culture: Urine (test code = Culture: Urine) [facility] CenterLnarzmzSPRZIJPVO9881-28-73 10:40:00 Test Item Value Reference Range Interpretation Comments Bili Total (test code = Bili Total) 0.4 0.2-1.3 N [facility] CenterUgvteloNPDSORVII4687-74-80 10:40:00 Test Item Value Reference Range Interpretation Comments ALT (test code = ALT) 18 See_Comment N [Auto mated message] The system which ge nerated this result transmit norris reference range : <=65. The reference range was not used to interpr et this result as darshana l/abnormal. [facility] CenterFhspfwzOYVQVPLVW5204-10-01 10:40:00 Test Item Value Reference Range Interpretation Comments Alk Phos (test code = Alk Phos) 62 39-136 N [facility] CenterUiizgxrGUCHEXASP0549-81-84 10:40:00 Test Item Value Reference Range Interpretation Comments Total Protein (test code = Total 6.1 6.4-8.4 L Protein) [facility] CenterSdlvxkcLESBYQFXG4734-44-68 10:40:00 Test Item Value Reference Range Interpretation Comments AST (test code = AST) 14 See_Comment N [Auto mated message] The system which ge nerated this result transmit norris reference range : <=37. The reference range was not used to interpr et this result as darshana l/abnormal. [facility] CenterQdpuxhvKKLXPWMMM1842-75-76 10:40:00 Test Item Value Reference Range Interpretation Comments Albumin Lvl (test code = Albumin Lvl) 2.7 3.5-5.0 L [facility] CenterKapyfipUFMHPEHMX9715-16-40 10:40:00 Test Item Value Reference Range Interpretation Comments A/G Ratio (test code = A/G Ratio) 0.8 0.7-1.6 N [facility]OvbpxodPAXMFFBZE7490-36-40 10:40:00 Test Item Value Reference Range Interpretation Comments Globulin (test code = Globulin) 3.4 2.0-4.0 N [facility] CenterYdigfmwJPODTKQBJ3579-98-36 10:40:00 Test Item Value Reference Range Interpretation Comments B/C Ratio (test code = B/C Ratio) 14 6-25 N [facility]aleXynecrbUKFXFSDSB5189-36-97 10:40:00 Test Item Value Reference Range Interpretation Comments Bili Total (test code = Bili Total) 0.4 0.2-1.3 N [facility]aleGvtuenzRHCJXGTTR6239-81-35 10:40:00 Test Item Value Reference Range Interpretation Comments ALT (test code = ALT) 18 See_Comment N [Auto mated message] The system which ge nerated this result transmit norris reference range : <=65. The reference range was not used to interpr et this result as darshana l/abnormal. [facility]aleRbtahvlYQUOVWHTT8750-76-96 10:40:00 Test Item Value Reference Range Interpretation Comments Alk Phos (test code = Alk Phos) 62 39-136 N [facility]aleMqnousiBXLFPXNAS3267-40-83 10:40:00 Test Item Value Reference Range Interpretation Comments Total Protein (test code = Total 6.1 6.4-8.4 L Protein) [facility]aleFfyruegJXCDDKDRK0694-74-22 10:40:00 Test Item Value Reference Range Interpretation Comments AST (test code = AST) 14 See_Comment N [Auto mated message] The system which ge nerated this result transmit norris reference range : <=37. The reference range was not used to interpr et this result as darshana l/abnormal. [facility] GkydptuABWMHLBKF6692-41-68 10:40:00 Test Item Value Reference Range Interpretation Comments Albumin Lvl (test code = Albumin Lvl) 2.7 3.5-5.0 L [facility] IlzdpfkFJQEPPAHW1815-22-06 10:40:00 Test Item Value Reference Range Interpretation Comments A/G Ratio (test code = A/G Ratio) 0.8 0.7-1.6 N [facility] ZoknbmdQDNKVTELC7304-97-50 10:40:00 Test Item Value Reference Range Interpretation Comments Globulin (test code = Globulin) 3.4 2.0-4.0 N [facility]aleGtbdvkrWNWOZNSCZ1551-47-72 10:40:00 Test Item Value Reference Range Interpretation Comments B/C Ratio (test code = B/C Ratio) 14 6-25 N [facility]aleGxndueaSSEFVKGBXF6212-29-88 18:27:00 Test Item Value Reference Range Interpretation Comments UA Sq Epi (test code Occasional /LPF = UA Sq Epi) *NA*(04/21/2012 12:27:00) [facility]HjvvvtbNODBMABTBB8090-15-84 18:27:00 Test Item Value Reference Range Interpretation Comments UA Leuk Est (test Moderate A code = UA Leuk Est) *ABN*(04/21/2012 12:27:00) [facility]landsWyhqrjyBEWROWMKFR5149-37-03 18:27:00 Test Item Value Reference Range Interpretation Comments UA WBC (test code = 6 See_Comment H [Automa norris message] The UA WBC) system which ge nerated this result transmit norris reference range : <=5. The reference range was not used to interpr et this result as darshana l/abnormal. [facility]landsArocnfpVAUXUBDQAU2223-17-21 18:27:00 Test Item Value Reference Range Interpretation Comments UA RBC (test code = 34 See_Comment H [Automa norris message] The UA RBC) system which ge nerated this result transmit norris reference range : <=2. The reference range was not used to interpr et this result as darshana l/abnormal. [facility]landsVtvbtsgTBLDMYZBLC2037-79-34 18:27:00 Test Item Value Reference Range Interpretation Comments UA CaOx Mey (test Occasional /HPF code = UA CaOx Mey) *NA*(04/21/2012 12:27:00) [facility]landsDyzxpkjQRBSPVRRUS2869-37-91 18:27:00 Test Item Value Reference Range Interpretation Comments UA Mucus (test code = Few /LPF UA Mucus) *NA*(04/21/2012 12:27:00) [facility] HospitalPzhpyrhWKPQNLEOYH9359-04-16 18:27:00 Test Item Value Reference Range Interpretation Comments UA Bacteria (test code Occasional /HPF = UA Bacteria) *NA*(04/21/2012 12:27:00) [facility] HospitalDuutpdyCDHGFGOKZZ8984-47-91 18:27:00 Test Item Value Reference Range Interpretation Comments UA Bili (test code = Negative *NA*(04/21/2012 UA Bili) 12:27:00) [facility] HospitalKwueiqfZDNYSFESMQ9918-90-12 18:27:00 Test Item Value Reference Range Interpretation Comments UA Blood (test code = Moderate A UA Blood) *ABN*(04/21/2012 12:27:00) [facility]landsKxgymfsQOWVHVZRFJ2413-82-98 18:27:00 Test Item Value Reference Range Interpretation Comments UA Nitrite (test code Negative (04/21/2012 N = UA Nitrite) 12:27:00) [facility]landsYbanfbxOAWWBFKDZE5471-10-04 18:27:00 Test Item Value Reference Range Interpretation Comments UA Glucose (test code Negative mg/dL = UA Glucose) *NA*(04/21/2012 12:27:00) [facility]landsOunvxtiARLIFWHZKV2837-01-51 18:27:00 Test Item Value Reference Range Interpretation Comments UA Ketones (test code = 20 mg/dL A UA Ketones) *ABN*(04/21/2012 12:27:00) [facility]landsDwawfjzTLELJKIVXU8564-27-91 18:27:00 Test Item Value Reference Range Interpretation Comments UA Urobilinogen (test code *NA*(04/21/2012 0.1-1.0 = UA Urobilinogen) 12:27:00) [facility]landsBpcwuptWUHSWQNJAA2633-34-52 18:27:00 Test Item Value Reference Range Interpretation Comments UA Color (test code = UA Color) Ltyellow [facility]landsFuqsgryLRJUDZWMIW8557-31-93 18:27:00 Test Item Value Reference Range Interpretation Comments UA Protein (test code Negative mg/dL N = UA Protein) (04/21/2012 12:27:00) [facility]landsPuolvicOJQUOKZHRJ2953-01-79 18:27:00 Test Item Value Reference Range Interpretation Comments UA Turbidity (test code = Clear (04/21/2012 N UA Turbidity) 12:27:00) [facility]landsTbbhtqrRDGPBOSEMP9797-63-91 18:27:00 Test Item Value Reference Range Interpretation Comments UA pH (test code = UA pH) 5.0 5.0-8.0 N [facility]landsKqpjqfsJJTKDUELXT9833-60-19 18:27:00 Test Item Value Reference Range Interpretation Comments UA Spec Grav (test code = UA Spec Grav) 1.011 N [facility]landsHqbwtyzCPXAHQAVDC6062-32-28 18:27:00 Test Item Value Reference Range Interpretation Comments UA Sq Epi (test code Occasional /LPF = UA Sq Epi) *NA*(04/21/2012 12:27:00) [facility] HospitalCcjzzesSBIRPVYLKG3503-21-78 18:27:00 Test Item Value Reference Range Interpretation Comments UA Leuk Est (test Moderate A code = UA Leuk Est) *ABN*(04/21/2012 12:27:00) [facility]landsFkovgwlDFNBSCMHLO9428-74-11 18:27:00 Test Item Value Reference Range Interpretation Comments UA WBC (test code = 6 See_Comment H [Automa norris message] The UA WBC) system which ge nerated this result transmit norris reference range : <=5. The reference range was not used to interpr et this result as darshana l/abnormal. [facility] HospitalHvwfokoJPCKZJAFHC9999-22-91 18:27:00 Test Item Value Reference Range Interpretation Comments UA RBC (test code = 34 See_Comment H [Automa norris message] The UA RBC) system which ge nerated this result transmit norris reference range : <=2. The reference range was not used to interpr et this result as darshana l/abnormal. [facility]landsIlabguzRBQMSGKWBB2574-48-34 18:27:00 Test Item Value Reference Range Interpretation Comments UA CaOx Mey (test Occasional /HPF code = UA CaOx Mey) *NA*(04/21/2012 12:27:00) [facility] HospitalCyepmolCWUZZUBSLE7329-24-63 18:27:00 Test Item Value Reference Range Interpretation Comments UA Mucus (test code = Few /LPF UA Mucus) *NA*(04/21/2012 12:27:00) [facility]landsXzprxwxMHWZCSFNDD0357-99-71 18:27:00 Test Item Value Reference Range Interpretation Comments UA Bacteria (test code Occasional /HPF = UA Bacteria) *NA*(04/21/2012 12:27:00) [facility] HospitalSnamovoHBANKFNQKZ1231-99-70 18:27:00 Test Item Value Reference Range Interpretation Comments UA Bili (test code = Negative *NA*(04/21/2012 UA Bili) 12:27:00) [facility] HospitalSzssjhiEBFSXVZYDV2848-50-14 18:27:00 Test Item Value Reference Range Interpretation Comments UA Blood (test code = Moderate A UA Blood) *ABN*(04/21/2012 12:27:00) [facility] HospitalUtarwepFNIHRMPAFF0950-78-44 18:27:00 Test Item Value Reference Range Interpretation Comments UA Nitrite (test code Negative (04/21/2012 N = UA Nitrite) 12:27:00) [facility]landsUehjsjfZYSTBSLEHO6847-15-85 18:27:00 Test Item Value Reference Range Interpretation Comments UA Glucose (test code Negative mg/dL = UA Glucose) *NA*(04/21/2012 12:27:00) [facility]landsCmsaebcDRTOFEBVXO3896-45-27 18:27:00 Test Item Value Reference Range Interpretation Comments UA Ketones (test code = 20 mg/dL A UA Ketones) *ABN*(04/21/2012 12:27:00) [facility]landsIpgwlmmJAJFVBOTTA8887-34-49 18:27:00 Test Item Value Reference Range Interpretation Comments UA Urobilinogen (test code *NA*(04/21/2012 0.1-1.0 = UA Urobilinogen) 12:27:00) [facility]landsTxpnyxiCRWQBTYCQK8426-86-13 18:27:00 Test Item Value Reference Range Interpretation Comments UA Color (test code = UA Color) Ltyellow [facility]landsVeripxyWLBSPTPGTX2637-34-62 18:27:00 Test Item Value Reference Range Interpretation Comments UA Protein (test code Negative mg/dL N = UA Protein) (04/21/2012 12:27:00) [facility]landsKewyktrEGXBCZSMOC7855-04-37 18:27:00 Test Item Value Reference Range Interpretation Comments UA Turbidity (test code = Clear (04/21/2012 N UA Turbidity) 12:27:00) [facility]landsIbbmzckKMKACFZQAT5980-10-47 18:27:00 Test Item Value Reference Range Interpretation Comments UA pH (test code = UA pH) 5.0 5.0-8.0 N [facility]landsHvtqvczGBRUFWVIDK9000-89-07 18:27:00 Test Item Value Reference Range Interpretation Comments UA Spec Grav (test code = UA Spec Grav) 1.011 N [facility] CenterUihawdgWJEOBEPJV6125-81-10 09:55:00 Test Item Value Reference Range Interpretation Comments Phosphorus (test code = Phosphorus) 2.8 2.5-4.5 N [facility] CenterHyuohzuWJDVTOCSO8037-86-93 09:55:00 Test Item Value Reference Range Interpretation Comments Magnesium Lvl (test code = Magnesium 1.8 1.8-2.4 N Lvl) [facility] CenterQafxcztOPJGORJJD4586-95-58 09:55:00 Test Item Value Reference Range Interpretation Comments Phosphorus (test code = Phosphorus) 2.8 2.5-4.5 N [facility]HjyjbunRDWBIKLGM2169-40-99 09:55:00 Test Item Value Reference Range Interpretation Comments Magnesium Lvl (test code = Magnesium 1.8 1.8-2.4 N Lvl) [facility] CenterEqrcdpoJOURCEICQ3478-70-67 00:11:00 Test Item Value Reference Range Interpretation Comments Phosphorus (test code = Phosphorus) 2.9 2.5-4.5 N [facility]HjwiggsUEAWAUFWEM3765-00-24 00:11:00 Test Item Value Reference Range Interpretation Comments Plt Morph (test code = Normal (04/20/2012 N Plt Morph) 18:11:00) [facility] HospitalLhutldcFOFGCYQZLH1526-11-34 00:11:00 Test Item Value Reference Range Interpretation Comments RBC Morph (test code = Normal (04/20/2012 N RBC Morph) 18:11:00) [facility] CenterJpjeiptHJUSDTQAD7682-78-90 00:11:00 Test Item Value Reference Range Interpretation Comments Phosphorus (test code = Phosphorus) 2.9 2.5-4.5 N [facility] HospitalAicvdihFLWTONBOXJ8650-94-90 00:11:00 Test Item Value Reference Range Interpretation Comments Plt Morph (test code = Normal (04/20/2012 N Plt Morph) 18:11:00) [facility] HospitalJywdmrsMZVBUHNMPW3136-03-39 00:11:00 Test Item Value Reference Range Interpretation Comments RBC Morph (test code = Normal (04/20/2012 N RBC Morph) 18:11:00) [facility]BACTERIAL - COKOVYUQ4160-11-82 22:00:00 Test Item Value Reference Range Interpretation Comments MRSA by PCR (test Negative 1(04/20/2012 N code = MRSA by PCR) 16:00:00) [facility]BACT[facility] - AISMDYAO6680-19-66 22:00:00 Test Item Value Reference Range Interpretation Comments MRSA by PCR (test Negative 1(04/20/2012 N code = MRSA by PCR) 16:00:00) [facility] CenterXxroqtgWHAKIUIPV7850-41-26 10:47:00 Test Item Value Reference Range Interpretation Comments LDL (test code = LDL) 136 See_Comment H [Auto mated message] The system which ge nerated this result transmit norris reference range : <=129. The reference range was not used to interpr et this result as darshana l/abnormal. [facility] GlcudlmHEOGWLQUB6302-12-81 10:47:00 Test Item Value Reference Range Interpretation Comments Chol (test code = Chol) 211 120-200 H [facility]ZxblnavZJRKWHIZZ4443-09-29 10:47:00 Test Item Value Reference Range Interpretation Comments Trig (test code = 193 See_Comment N [Automate d message] The Trig) system which ge nerated this result transmit norris reference range : <=200. The reference range was not used to interpr et this result as darshana l/abnormal. [facility] BgcvduyUAOPEDOFW0602-04-31 10:47:00 Test Item Value Reference Range Interpretation Comments HDL (test code = HDL) 36 N [facility]aleKsfuzkzWYGGBFNLM4403-59-68 10:47:00 Test Item Value Reference Range Interpretation Comments CHD Risk (test code = CHD Risk) 5.86 3.90-5.80 H [facility]aleSanxobaULEQJNZUX6263-58-44 10:47:00 Test Item Value Reference Range Interpretation Comments LDL (test code = LDL) 136 See_Comment H [Auto mated message] The system which ge nerated this result transmit norris reference range : <=129. The reference range was not used to interpr et this result as darshana l/abnormal. [facility] KmznzmrFTABSQTEL2119-72-56 10:47:00 Test Item Value Reference Range Interpretation Comments Chol (test code = Chol) 211 120-200 H [facility]aleRjdxapkUVNCHQHHY5477-17-26 10:47:00 Test Item Value Reference Range Interpretation Comments Trig (test code = 193 See_Comment N [Automate d message] The Trig) system which ge nerated this result transmit norris reference range : <=200. The reference range was not used to interpr et this result as darshana l/abnormal. [facility] QqvftcgIIRVPNTSB7501-07-75 10:47:00 Test Item Value Reference Range Interpretation Comments HDL (test code = HDL) 36 N [facility]aleEewxbyvNQHALBNXY8001-54-28 10:47:00 Test Item Value Reference Range Interpretation Comments CHD Risk (test code = CHD Risk) 5.86 3.90-5.80 H [facility] QrbzwuvNQITJYFKK4616-29-77 10:45:00 Test Item Value Reference Range Interpretation Comments TSH (test code = TSH) 0.631 0.360-3.740 N [facility]TamnuhqQPOHXCKSY9446-69-74 10:45:00 Test Item Value Reference Range Interpretation Comments Phosphorus (test code = Phosphorus) 3.2 2.5-4.5 N [facility] HospitalLmfeiskREOQKWCVYY4917-45-43 10:45:00 Test Item Value Reference Range Interpretation Comments PTT (test code = PTT) 35.0 s 22.9-35.8 N [facility] HospitalBwydtuhDEDHBWWPMH5664-36-29 10:45:00 Test Item Value Reference Range Interpretation Comments PT (test code = PT) 14.0 s 12.0-14.7 N [facility] HospitalKwpvzzxZHTBMIKKIE4003-40-21 10:45:00 Test Item Value Reference Range Interpretation Comments INR (test code = INR) 1.06 0.85-1.17 N [facility] CenterGnhjgsfJPCTGAHOU3498-36-17 10:45:00 Test Item Value Reference Range Interpretation Comments TSH (test code = TSH) 0.631 0.360-3.740 N [facility] CenterBpfnewySJVJJGQYO4673-63-09 10:45:00 Test Item Value Reference Range Interpretation Comments Phosphorus (test code = Phosphorus) 3.2 2.5-4.5 N [facility] HospitalMdzfnvtVAYEVJYPDD8341-79-10 10:45:00 Test Item Value Reference Range Interpretation Comments PTT (test code = PTT) 35.0 s 22.9-35.8 N [facility] HospitalTyboefgZMXTFNRQSY9024-43-45 10:45:00 Test Item Value Reference Range Interpretation Comments PT (test code = PT) 14.0 s 12.0-14.7 N [facility] HospitalQfciiwpJZYDWGDHGZ1425-60-80 10:45:00 Test Item Value Reference Range Interpretation Comments INR (test code = INR) 1.06 0.85-1.17 N [facility] CenterPerbpnsIESHAHOND8736-40-32 03:05:00 Test Item Value Reference Range Interpretation Comments BNP (test code = BNP) 86 N [facility] CenterIzvicgfOTDLGOAIF9680-62-49 03:05:00 Test Item Value Reference Range Interpretation Comments Total CK (test code = Total CK) 130 12-191 N [facility] CenterInrrsxtBGXGQUEAX2652-31-97 03:05:00 Test Item Value Reference Range Interpretation Comments CK MB (test code = CK MB) 0.9 0.5-3.6 N [facility] CenterVrrkwgyDPRLEPHCT9407-93-98 03:05:00 Test Item Value Reference Range Interpretation Comments Troponin-I (test code no gt See_Comment N [Auto mated message] The = Troponin-I) system which g enerated this result transmit norris reference range : <=0.40. The reference r lina was not used to interpr et this result as darshana l/abnormal. [facility] CenterSqorjveEWYXFLCKD7809-95-84 03:05:00 Test Item Value Reference Range Interpretation Comments CK MB Index (test 0.7 See_Comment N [Automate d message] The code = CK MB Index) system w [facility] generated this result transmit norris reference range : <=2.5. The reference range was not used to interpr et this result as darshana l/abnormal. [facility] HospitalMeaaxmgEECPVHOBTM6666-88-40 03:05:00 Test Item Value Reference Range Interpretation Comments INR (test code = INR) 0.95 0.85-1.17 N [facility] HospitalBdrrlacWXZWTTUIAW5359-17-75 03:05:00 Test Item Value Reference Range Interpretation Comments PTT (test code = PTT) 34.0 s 22.9-35.8 N [facility] HospitalQtrmwtpFOXTVEZZRB7450-90-14 03:05:00 Test Item Value Reference Range Interpretation Comments PT (test code = PT) 12.9 s 12.0-14.7 N [facility] HospitalOjvwgteOSQYNBTBTF2602-76-03 03:05:00 Test Item Value Reference Range Interpretation Comments RBC Morph (test code = Normal (04/18/2012 N RBC Morph) 21:05:00) [facility] HospitalFrxkvjkOKBZZGAELR8286-99-61 03:05:00 Test Item Value Reference Range Interpretation Comments Plt Morph (test code = Normal (04/18/2012 N Plt Morph) 21:05:00) [facility]IqofhjdIOGLIGCZKW8202-29-50 03:05:00 Test Item Value Reference Range Interpretation Comments UA Nitrite (test code Negative (04/18/2012 N = UA Nitrite) 21:05:00) [facility]ervilleLoorufjGABRQCECNR1300-48-38 03:05:00 Test Item Value Reference Range Interpretation Comments UA Blood (test code = Negative (04/18/2012 N UA Blood) 21:05:00) [facility]ervilleYbrzgchNLFGRDKZWW9981-94-35 03:05:00 Test Item Value Reference Range Interpretation Comments UA Bili (test code = Negative *NA*(04/18/2012 UA Bili) 21:05:00) [facility] HospitalRencohzEEQSDWYLQM6388-06-97 03:05:00 Test Item Value Reference Range Interpretation Comments UA Urobilinogen (test code *NA*(04/18/2012 0.1-1.0 = UA Urobilinogen) 21:05:00) [facility] HospitalXhkyqprKWQFAXDPEC8016-05-05 03:05:00 Test Item Value Reference Range Interpretation Comments UA Color (test code = UA Color) Colorless [facility] HospitalZrgpiggVALUVMAZGZ8451-74-68 03:05:00 Test Item Value Reference Range Interpretation Comments UA WBC (test code = 3 See_Comment N [Automa norris message] The UA WBC) system which ge nerated this result transmit norris reference range : <=5. The reference range was not used to interpr et this result as darshana l/abnormal. [facility] HospitalCfkfuhmRDPQZGBPKR3896-78-36 03:05:00 Test Item Value Reference Range Interpretation Comments UA Sq Epi (test code Occasional /LPF = UA Sq Epi) *NA*(04/18/2012 21:05:00) [facility] HospitalVleyfycJSWCGOPBIT8255-80-53 03:05:00 Test Item Value Reference Range Interpretation Comments UA Bacteria (test code Occasional /HPF = UA Bacteria) *NA*(04/18/2012 21:05:00) [facility]landsWydsvbbRWYXEOAGQT8226-33-57 03:05:00 Test Item Value Reference Range Interpretation Comments UA RBC (test code = no gt See_Comment N [Automa norris message] The UA RBC) system which ge nerated this result transmit norris reference range : <=2. The reference range was not used to interpr et this result as darshana l/abnormal. [facility] HospitalZaqbhitCDHBOFXEBL2090-67-06 03:05:00 Test Item Value Reference Range Interpretation Comments UA pH (test code = UA pH) 8.0 5.0-8.0 N [facility] HospitalCybeiniIHDUDJUMNV8542-90-99 03:05:00 Test Item Value Reference Range Interpretation Comments UA Leuk Est (test code Small *ABN*(04/18/2012 A = UA Leuk Est) 21:05:00) [facility] HospitalBowkwbtUDYMKEBNJW3372-42-04 03:05:00 Test Item Value Reference Range Interpretation Comments UA Ketones (test code Negative mg/dL = UA Ketones) *NA*(04/18/2012 21:05:00) [facility] HospitalLqbrlrpQCIDUZMBLF9737-64-62 03:05:00 Test Item Value Reference Range Interpretation Comments UA Glucose (test code Negative mg/dL = UA Glucose) *NA*(04/18/2012 21:05:00) [facility] HospitalGgapgtmWMIELTGZAC1974-85-78 03:05:00 Test Item Value Reference Range Interpretation Comments UA Protein (test code Negative mg/dL N = UA Protein) (04/18/2012 21:05:00) [facility]landsZeyjrwuGLGSNBWTQX4375-67-68 03:05:00 Test Item Value Reference Range Interpretation Comments UA Turbidity (test code = Clear (04/18/2012 N UA Turbidity) 21:05:00) [facility]landsBvpxgysYKZSIIHROK4330-00-61 03:05:00 Test Item Value Reference Range Interpretation Comments UA Spec Grav (test code = UA Spec Grav) 1.003 N [facility]JmkgkkiDzmmdfzlaorl7090-67-63 03:05:00 Test Item Value Reference Range Interpretation Comments Culture: Urine (test code = Culture: Urine) [facility] CenterAhvcafiFXMMIMGSP1210-95-01 03:05:00 Test Item Value Reference Range Interpretation Comments BNP (test code = BNP) 86 N [facility] CenterAtdclqfYZKXBVLML5642-68-55 03:05:00 Test Item Value Reference Range Interpretation Comments Total CK (test code = Total CK) 130 12-191 N [facility] CenterLjazwiyBDDWCSZWK6348-45-24 03:05:00 Test Item Value Reference Range Interpretation Comments CK MB (test code = CK MB) 0.9 0.5-3.6 N [facility] CenterVeqzwtlFATVANCBF1409-33-81 03:05:00 Test Item Value Reference Range Interpretation Comments Troponin-I (test code no gt See_Comment N [Auto mated message] The = Troponin-I) system which g enerated this result transmit norris reference range : <=0.40. The reference r lina was not used to interpr et this result as darshana l/abnormal. [facility] CenterCnmnqbkVHYDVYBXR4857-80-49 03:05:00 Test Item Value Reference Range Interpretation Comments CK MB Index (test 0.7 See_Comment N [Automate d message] The code = CK MB Index) system w [facility] generated this result transmit norris reference range : <=2.5. The reference range was not used to interpr et this result as darshana l/abnormal. [facility] HospitalArnmbulBGWWPPLZYF0600-10-56 03:05:00 Test Item Value Reference Range Interpretation Comments INR (test code = INR) 0.95 0.85-1.17 N [facility] HospitalJukfekvONMXORFYSL5279-65-32 03:05:00 Test Item Value Reference Range Interpretation Comments PTT (test code = PTT) 34.0 s 22.9-35.8 N [facility] HospitalHtxlryyBQIXGMIHHC1758-78-50 03:05:00 Test Item Value Reference Range Interpretation Comments PT (test code = PT) 12.9 s 12.0-14.7 N [facility] HospitalEizkenjZEGVYSHXKV1212-81-05 03:05:00 Test Item Value Reference Range Interpretation Comments RBC Morph (test code = Normal (04/18/2012 N RBC Morph) 21:05:00) [facility] HospitalYytajsuFMSDDUQTIQ3324-55-48 03:05:00 Test Item Value Reference Range Interpretation Comments Plt Morph (test code = Normal (04/18/2012 N Plt Morph) 21:05:00) [facility] HospitalWusjlkuXHNCYPHFXV9777-77-97 03:05:00 Test Item Value Reference Range Interpretation Comments UA Nitrite (test code Negative (04/18/2012 N = UA Nitrite) 21:05:00) [facility]landsIkicholGCAEMSOMGW1643-20-69 03:05:00 Test Item Value Reference Range Interpretation Comments UA Blood (test code = Negative (04/18/2012 N UA Blood) 21:05:00) [facility] HospitalNahtbkxCIRMFSJILE1586-13-07 03:05:00 Test Item Value Reference Range Interpretation Comments UA Bili (test code = Negative *NA*(04/18/2012 UA Bili) 21:05:00) [facility]landsZzrayynQFKVUEAWPQ9779-05-87 03:05:00 Test Item Value Reference Range Interpretation Comments UA Urobilinogen (test code *NA*(04/18/2012 0.1-1.0 = UA Urobilinogen) 21:05:00) [facility]landsPznltkrYPXWXJPNLM8721-40-67 03:05:00 Test Item Value Reference Range Interpretation Comments UA Color (test code = UA Color) Colorless [facility] HospitalVkwfhffFOUBQHNSAS7332-44-86 03:05:00 Test Item Value Reference Range Interpretation Comments UA WBC (test code = 3 See_Comment N [Automa norris message] The UA WBC) system which ge nerated this result transmit norris reference range : <=5. The reference range was not used to interpr et this result as darshana l/abnormal. [facility] HospitalLaeglqoUISDMWGLOM5655-87-38 03:05:00 Test Item Value Reference Range Interpretation Comments UA Sq Epi (test code Occasional /LPF = UA Sq Epi) *NA*(04/18/2012 21:05:00) [facility] HospitalKkgzmpmEAFSPXRMEF6288-30-83 03:05:00 Test Item Value Reference Range Interpretation Comments UA Bacteria (test code Occasional /HPF = UA Bacteria) *NA*(04/18/2012 21:05:00) [facility]landsQctuqnaOQRVHHKTNT9698-65-90 03:05:00 Test Item Value Reference Range Interpretation Comments UA RBC (test code = no gt See_Comment N [Automa norris message] The UA RBC) system which ge nerated this result transmit norris reference range : <=2. The reference range was not used to interpr et this result as darshana l/abnormal. [facility] HospitalFthvznoOSAQSJHZIT6667-05-27 03:05:00 Test Item Value Reference Range Interpretation Comments UA pH (test code = UA pH) 8.0 5.0-8.0 N [facility]landsWpvbirqCJRWZCOGQK8071-45-46 03:05:00 Test Item Value Reference Range Interpretation Comments UA Leuk Est (test code Small *ABN*(04/18/2012 A = UA Leuk Est) 21:05:00) [facility] HospitalSwxoybqNZSWSCXVSF3189-99-44 03:05:00 Test Item Value Reference Range Interpretation Comments UA Ketones (test code Negative mg/dL = UA Ketones) *NA*(04/18/2012 21:05:00) [facility] HospitalNqzimmxARKLMYBFFJ1773-38-11 03:05:00 Test Item Value Reference Range Interpretation Comments UA Glucose (test code Negative mg/dL = UA Glucose) *NA*(04/18/2012 21:05:00) [facility] HospitalMthchegXJFIPRIXXO0300-90-21 03:05:00 Test Item Value Reference Range Interpretation Comments UA Protein (test code Negative mg/dL N = UA Protein) (04/18/2012 21:05:00) [facility]aleKqhxdpmOALPLTBCVI5946-49-28 03:05:00 Test Item Value Reference Range Interpretation Comments UA Turbidity (test code = Clear (04/18/2012 N UA Turbidity) 21:05:00) [facility]ervilleGpskkbbTQHJYFPTHU8160-54-64 03:05:00 Test Item Value Reference Range Interpretation Comments UA Spec Grav (test code = UA Spec Grav) 1.003 N [facility]ervilleFtfkdcyVuuffvdhkect9026-45-71 03:05:00 Test Item Value Reference Range Interpretation Comments Culture: Urine (test code = Culture: Urine) [facility] Pa And Lat (2 Views)Chest Pa And Lat (2 Views)Foot Left 3 ViewFoot Left 3 View
[2022-03-24] MEDS ORDERED: ACETAMINOPHEN 325 MG TABLET ONE (14:42)
--- NOTE | 2022-03-24 15:49 | RAD REPORT ---
EXAM DESCRIPTION: RAD - Chest Single View - 03/24/2022 3:29 pm CLINICAL HISTORY: fall Chest pain. COMPARISON: Chest Single View dated 03/12/2022; Chest Pa And Lat (2 Views) dated 04/08/2021; Chest Pa And Lat (2 Views) dated 09/14/2020; Chest Single View dated 03/16/2020 FINDINGS: Portable technique limits examination quality. The lungs are grossly clear. The heart is upper limit of normal in size. No displaced fractures.Anderson otomy wires. IMPRESSION: No acute intrathoracic process suspected.
--- NOTE | 2022-03-24 15:50 | RAD REPORT ---
EXAM DESCRIPTION: RAD - Ankle Right 3 View - 03/24/2022 3:29 pm CLINICAL HISTORY: fall COMPARISON: No comparisons FINDINGS: No acute fracture or dislocation. Moderate plantar calcaneal spur.
--- NOTE | 2022-03-24 15:53 | RAD REPORT ---
EXAM DESCRIPTION: RAD - Humerus Right - 03/24/2022 3:29 pm CLINICAL HISTORY: fall COMPARISON: No comparisons FINDINGS: Diffuse osteopenia is seen. Mild degenerative change right shoulder. No fracture or disloc ation seen.
--- NOTE | 2022-03-24 16:16 | RAD REPORT ---
EXAM DESCRIPTION: RAD - Forearm Right - 03/24/2022 3:29 pm CLINICAL HISTORY: PAIN COMPARISON: No comparisons FINDINGS: Diffuse osteopenia is seen. No acute fracture or dislocation evident. Vascular atheroscler osis.
--- NOTE | 2022-03-24 16:35 | ER ---
Nurse's Notes [facility] Name: Eva Hask[facility] Age: 81 yrs Sex: Female : 1940 Arrival Date: 03/24/2022 Time: 14:15 Bed 12 Private MD: Diagnosis: Pain in right ankle and joints of right foot-from fall;Pain in right arm-from fall;Fall on same level, unspecified Presentation: 03/24 14:19 Chief complaint: Patient states: "my house shoes made me trip yesterday and I fell onto aa5 my right side". Pt c/o pain to right arm and right ankle. Coronavirus screen: At this time, the client does not indicate any symptoms associated with coronavirus-19. Ebola Screen: Patient denies travel to an Ebola-affected area in the 21 days before illness onset. Initial Sepsis Screen: Does the patient meet any 2 criteria? No. Patient's initial sepsis screen is negative. Does the patient have a suspected source of infection? No. Patient's initial sepsis screen is negative. Risk Assessment: Do you want to hurt yourself or someone else? Patient reports no desire to harm self or others. Onset of symptoms was March 2022. 14:19 Acuity: DEVON 4 aa5 14:19 Method Of Arrival: Wheelchair aa5 Triage Assessment: 17:10 General: Appears in no apparent distress. comfortable, Behavior is calm, cooperative, kr3 appropriate for age. Historical: - Allergies: 14:20 Iodine; aa5 14:20 Levofloxacin; aa5 - PMHx: 14:20 Diabetes - NIDDM; Hyperlipidemia; Hypertension; Myocardial infarction; TIA; aa5 - Immunization history:: Adult Immunizations unknown. - Social history:: Smoking status: Patient denies any tobacco usage or history of. Screenin:10 [facility] ED Fall Risk Assessment (Adult) History of falling in the last 3 months, kr3 including since admission Yes- single mechanical fall (1 pt) Confusion or Disorientation No (0 pts) Intoxicated or Sedated No (0 pts) Impaired Gait No (0 pts) Mobility Assist Device Used Yes (1 pt) Altered Elimination No (0 pt) Score/Fall Risk Level 0 - 2 = Low Risk Oriented to surroundings, Maintained a safe environment, Assessed \\T\\ reinforced patient's understanding of fall precautions, Hourly rounding (assess needs \\T\\ fall precautionary measures) done. Abuse screen: Denies threats or abuse. Tuberculosis screening: No symptoms or risk factors identified. 17:54 Nutritional screening: No deficits noted. kr3 Assessment: 15:15 Reassessment: Patient appears in no apparent distress at this time. Patient and/or kr3 family updated on plan of care and expected duration. Pain level reassessed. Patient is alert, oriented x 3, equal unlabored respirations, skin warm/dry/pink. 16:15 Reassessment: Patient appears in no apparent distress at this time. Patient and/or kr3 family updated on plan of care and expected duration. Pain level reassessed. Patient is alert, oriented x 3, equal unlabored respirations, skin warm/dry/pink. 17:00 Reassessment: No changes from previously documented assessment. Patient and/or family kr3 updated on plan of care and expected duration. Pain level reassessed. Patient is alert, oriented x 3, equal unlabored respirations, skin warm/dry/pink. Vital Signs: 14:19 BP 123 / 40; Pulse 52; Resp 16 S; Temp 98.1(TE); Pulse Ox 97% on R/A; Weight 58.97 kg aa5 (R); Height 5 ft. 0 in. (152.40 cm) (R); 15:15 BP 128 / 62; Pulse 54; Resp 17; Pulse Ox 99% on R/A; kr3 16:15 BP 121 / 58; Pulse 51; Resp 17; Pulse Ox 98% on R/A; kr3 17:00 BP 120 / 51; Pulse 55; Resp 17; Pulse Ox 100% ; kr3 14:19 Body Mass Index 25.39 (58.97 kg, 152.40 cm) aa5 ED Course: 14:15 Patient arrived in ED. am2 14:17 Leonides Manning PA is PHCP. cp 14:17 Tu Puri MD is Attending Physician. cp 14:19 Arm band placed on. aa5 14:20 Triage completed. aa5 14:25 Bed in low position. Call light in reach. Side rails up X 1. kr3 14:38 Tabatha Anderson, NAINA is Primary Nurse. kr3 15:31 XRAY Humerus RIGHT In Process Unspecified. EDMS 15:31 XRAY Forearm RIGHT In Process Unspecified. EDMS 15:31 XRAY Chest (1 view) In Process Unspecified. EDMS 15:31 XRAY Ankle RIGHT 3 view In Process Unspecified. EDMS 17:10 Patient did not have IV access during this emergency room visit. kr3 17:55 No provider procedures requiring assistance completed. kr3 Administered Medications: 14:42 Not Given (Patient Refused; patient has already taken tylenol at home): Tylenol 650 mg kr3 PO once Medication: 17:10 VIS not applicable for this client. kr3 Outcome: 16:34 Discharge ordered by . wendy 17:10 Discharged to home ambulatory. kr3 17:10 Discharge instructions given to patient, Instructed on discharge instructions, follow up and referral plans. medication usage, Demonstrated understanding of instructions, follow-up care, medications, Prescriptions given X 1. 17:15 Patient left the ED. kr3 17:55 Condition: stable kr3 Signatures: Dispatcher [employer] Abby Live, RN RN aa5 Leonides Manning PA PA cp Moreno, Amanda am2 Tabatha Anderson RN RN kr3
--- NOTE | 2022-03-24 16:35 | EDPHYS ---
Physician Documentation [facility] Name: Eva Haskins Age: 81 yrs Sex: Female : 1940 Arrival Date: 03/24/2022 Time: 14:15 Bed 12 Private MD: ED Physician Tu Puri HPI: 03/24 14:33 This 81 yrs old Female presents to ER via Wheelchair with complaints of Fall cp Injury, Arm Pain, Shoulder Pain. 14:33 Details of fall: The patient fell from an upright position, while walking. Onset: The cp symptoms/episode began/occurred yesterday. Associated injuries: The patient sustained right arm, decreased range of motion, painful injury, right ankle, painful injury. Patient reports trip and fall due to house shoes causing her to land on right side injuring right arm and right ankle. Historical: - Allergies: 14:20 Iodine; aa5 14:20 Levofloxacin; aa5 - PMHx: 14:20 Diabetes - NIDDM; Hyperlipidemia; Hypertension; Myocardial infarction; TIA; aa5 - Immunization history:: Adult Immunizations unknown. - Social history:: Smoking status: Patient denies any tobacco usage or history of. ROS: 14:35 Constitutional: Negative for chills, fever, poor PO intake. cp 14:35 Eyes: Negative for injury, pain, redness, and discharge. cp 14:35 Neck: Negative for pain with movement, pain at rest, stiffness. 14:35 Cardiovascular: Negative for chest pain, edema, palpitations. 14:35 Respiratory: Negative for cough, shortness of breath, wheezing. 14:35 Abdomen/GI: Negative for abdominal pain, vomiting, diarrhea, constipation. 14:35 Back: Negative for pain at rest, pain with movement. 14:35 MS/extremity: Positive for pain, of the right arm and right ankle, Negative for deformity, paresthesias. 14:35 Neuro: Negative for altered mental status, headache, loss of consciousness, syncope, weakness. 14:35 All other systems are negative. Exam: 14:40 Constitutional: The patient appears in no acute distress, alert, awake, cp non-diaphoretic, non-toxic, well developed, well nourished. 14:40 Head/Face: Normocephalic, atraumatic. cp 14:40 Neck: C-spine: vertebral tenderness, is not appreciated, crepitus, is not appreciated, ROM/movement: is normal, is supple, without pain, no range of motions limitations. 14:40 Chest/axilla: Inspection: normal, Palpation: crepitus, is not appreciated, tenderness, is not appreciated. 14:40 Cardiovascular: Rate: bradycardic, Rhythm: regular, Edema: is not appreciated, JVD: is not appreciated. 14:40 Respiratory: the patient does not display signs of respiratory distress, Respirations: normal, no use of accessory muscles, no retractions, labored breathing, is not present, Breath sounds: are clear throughout, no decreased breath sounds, no stridor, no wheezing. 14:40 Abdomen/GI: Inspection: abdomen appears normal, Palpation: abdomen is soft and non-tender, in all quadrants. 14:40 Back: vertebral tenderness, is not appreciated. 14:40 Musculoskeletal/extremity: Extremities: grossly normal except: noted in the right arm: cp decreased ROM, pain, tenderness, pain with AROM right shoulder, There is no evidence of deformity, noted in the right ankle: pain, tenderness, no evidence of decreased ROM, deformity. 14:40 Neuro: Orientation: no acute changes, per family, Mentation: is normal. cp Vital Signs: 14:19 BP 123 / 40; Pulse 52; Resp 16 S; Temp 98.1(TE); Pulse Ox 97% on R/A; Weight 58.97 kg aa5 (R); Height 5 ft. 0 in. (152.40 cm) (R); 15:15 BP 128 / 62; Pulse 54; Resp 17; Pulse Ox 99% on R/A; kr3 16:15 BP 121 / 58; Pulse 51; Resp 17; Pulse Ox 98% on R/A; kr3 17:00 BP 120 / 51; Pulse 55; Resp 17; Pulse Ox 100% ; kr3 14:19 Body Mass Index 25.39 (58.97 kg, 152.40 cm) aa5 MDM: 14:21 Patient medically screened. cp 15:00 Differential diagnosis: closed head injury, contusion, fracture, multiple trauma, cp sprain. 16:33 Data reviewed: vital signs, nurses notes, radiologic studies, plain films. cp 16:33 Consideration of Admission/Observation Escalation of care including cp admission/observation considered. I considered the following discharge prescriptions or medication management in the emergency department Medications were administered in the Emergency Department. See MAR. Test considered but Not performed: CT: traumagram. 16:33 Care significantly affected by the following chronic conditions: Diabetes, Hypertension.cp 16:33 Counseling: I had a detailed discussion with the patient and/or guardian regarding: the cp historical points, exam findings, and any diagnostic results supporting the discharge/admit diagnosis, radiology results, the need for outpatient follow up, a orthopedic surgeon, to return to the emergency department if symptoms worsen or persist or if there are any questions or concerns that arise at home. Response to treatment: the patient's symptoms have mildly improved after treatment. 03/24 14:27 Order name: XRAY Ankle RIGHT 3 view; Complete Time: 16:25 cp 03/24 16:25 Interpretation: Report reviewed. cp 03/24 14:27 Order name: XRAY Humerus RIGHT; Complete Time: 16:25 cp 03/24 16:26 Interpretation: Report reviewed. cp 03/24 14:27 Order name: XRAY Forearm RIGHT; Complete Time: 16:25 cp 03/24 16:26 Interpretation: Reviewed. cp 03/24 14:27 Order name: XRAY Chest (1 view); Complete Time: 16:25 cp 03/24 16:26 Interpretation: Report reviewed. cp 03/24 16:29 Order name: Chung wrap-joint: right ankle; Complete Time: 17:15 cp 03/24 16:29 Order name: Sling; Complete Time: 17:15 cp Administered Medications: 14:42 Not Given (Patient Refused; patient has already taken tylenol at home): Tylenol 650 mg kr3 PO once Disposition: 17:51 Co-signature as Attending Physician, Tu Puri MD I reviewed the patient's care rt provided by the Advanced Practice Provider and agree with the diagnosis and treatment plan. Disposition Summary: 03/24/22 16:34 Discharge Ordered Location: Home cp Problem: new cp Symptoms: have improved cp Condition: Stable cp Diagnosis - Pain in right ankle and joints of right foot - from fall cp - Pain in right arm - from fall cp - Fall on same level, unspecified cp Followup: cp - With: Private Physician - When: 2 - 3 days - Reason: Recheck today's complaints Discharge Instructions: - Discharge Summary Sheet cp - Elastic Bandage and RICE Therapy cp - Shoulder Pain cp - Shoulder Range of Motion Exercises cp - Ankle Pain cp - Musculoskeletal Pain cp Forms: - Medication Reconciliation Form cp - Thank You Letter cp - Antibiotic Education cp - Prescription Opioid Use cp Prescriptions: - Mobic 7.5 mg Oral Tablet - take 1 tablet by ORAL route once daily take with food; 20 tablet; Refills: 0, cp Product Selection Permitted Signatures: Dispatcher [employer] Abby Live RN RN aa5 Leonides Manning PA PA cp Tu Puri MD MD rt Tabatha Anderson RN kr3
[2022-03-24 17:43] VITALS: BP 123/40; TEMP 98.1; O2SAT 97
== END 2022-03-24 17:15 | disposition home or self-care (01) ==
LOC: ER 14:07
DX: M25.571 Pain in right ankle and joints of right foot (principal); M79.601 Pain in right arm; W18.30XA Fall on same level, unspecified, initial encounter; I10 Essential (primary) hypertension; Z88.3 Allergy status to other anti-infective agents; Z91.048 Other nonmedicinal substance allergy status
CPT/HCPCS: 71045; 99283

== ENCOUNTER 2022-03-25 15:55 | Emergency (ER) | payer OTHER ==
--- OUTSIDE RECORDS SUMMARY | 2022-03-25 16:17 | XMS REPORT | Continuity of Care Document ---
:1940 Author Organization [facility] t Address [address] [place] [address] Care Team Providers Name Role Phone Shante_[place] Tripp Primary Care Physician Unavailable Mari Abreu Attending Clinician Unavailable [place] Tripp Attending Clinician Unavailable Giuseppe Jose Attending Clinician Luis Burch Attending Clinician Luis Burch Admitting Clinician Payers Payer Name Policy Type Policy Number Effective Date Expiration Date Tarah sanders LAKELAND Sonja [id number] 2021 Common [facility] 00:00:00 [facility] Problems Condition Condition Condition Status Onset [...] disease 00:00: Hospita involving involving 00 l port lions port lions coronary coronary artery artery Essential Essential Disease Active Met hodi hypertensi hypertensi 2-16 st on on 00:00: Hospita 00 l UNK UNK Diagnosis Active 2016-06-20 Mem oria Active 06-06 21:57:00 l 06/06/2016 00:00: [place] 00 [place] 433.10/353 433.10/35 Diagnosis Active 2012-05-17 Memoria 01 301 Active 05-02 14:33:00 l 05/02/2012 00:00: [place] cotton 00 [facility] 433.10, 433.10, Diagnosis Active 2012-04-18 Memoria CAROTID CAROTID 04-18 16:00:00 l ARTERY ARTERY 00:00: [place] STENOSIS STENOSIS 00 Active 04/18/2012 [facility] CAROTID CAROTID Diagnosis Active 2012-05-10 Memoria STENOSIS STENOSIS 04-18 21:43:00 l Active 00:00: Christopher 04/18/2012 00 [facility] OTHER OTHER Diagnosis Active 2012-04-19 Me moria Active 04-18 00:54:00 l 04/18/2012 00:00: [place] 00 [facility] DM - DM - Problem Resolve 2012-04-28 Wilfrid mendy Diabetes Diabetes d 08:59:09 l mellitus mellitus [place]ley n Resolved Problem 04/28/2012 [facility] Hyperchole Hyperchol Problem Resolve 2012-04-28 Memoria sterolemia esterolemi d 08:59:09 l a Resolved [place] n Problem 04/28/2012 [facility] Hypertensi Hypertens Problem Resolve 2012-04-28 Memoria on ion d 08:59:09 l Resolved Christopher Problem 04/28/2012 [facility] Limping Limping Problem Active 2021-04-29 Fl clive (finding) (finding) 21:54:55 l Active [place] Problem 04/29/2021 [facility] Cough Cough Problem Active 2021-04-29 Memor ia (finding) (finding) 21:54:55 l Active Christopher Problem 04/29/2021 [facility] Diabetes Diabetes Problem Active 2021-04-29 Memoria mellitus mellitus 21:54:55 l (disorder) (disorder) He rmann Active Problem 04/29/2021 [facility] Difficulty Difficult Problem Active 2021-04-29 Memoria breathing y 21:54:55 l (finding) breathing Herm shannan (finding) Active Problem 04/29/2021 [facility] [place] Problem Active 2021-04-29 Memor ia (finding) (finding) 21:54:55 l Active Christopher Problem 04/29/2021 [facility] Hyperlipid Problem Active 2021-04-29 M pura mirzaia Hyperlipid 21:54:55 l (disorder) emjeffry Sen n (disorder) Active Problem 04/29/2021 [facility] Impaired Impaired Problem Active 2021-04-29 Memoria cognition cognition 21:54:55 l (finding) (finding) Herm shannan Active Problem 04/29/2021 [facility] CAROTID CAROTID Diagnosis Active 2012-05-10 Memoria SINUS SINUS 21:43:00 l SYNDROME SYNDROME [place] n Active [facility] EMBOLISM EMBOLISM Diagnosis Active 2016-06-20 Memoria AND AND 21:57:00 l THROMBOSIS THROMBOSIS He rmann OF OF ARTERIES ARTERIES OF T OF T Active [facility] ATHSCL ATHSCL Diagnosis Active 2016-06-20 Me moria JENA JENA 21:57:00 l ARTERIES ARTERIES [place]ckinley n OF EXTRM W OF EXTRM W INTRMT INTRMT Active [facility] [id number] Age-relate Problem Com mon d Spirit osteoporos - CHI is without [facility] pathologic Medica l al Center fracture Peripheral PAD Problem Commo n vascular (periphera Spir it disease l artery - CHI disease) [facility] Aortic Nonrheumat Problem Commo n valve ic aortic Spirit disorder (valve) - CHI stenosis [facility] Acute on Acute on Problem Commo n chronic chronic Spirit combined combined - CHI systolic systolic [facility] diastolic diastolic [facility] heart congestive Center failure heart failure [id number] Primary Problem Comm on osteoarthr Spirit itis of - CHI right hip [facility] [id number] Encounter Problem Com mon for Spirit suspected - CHI COVID-19 [facility] Tinea Athlete's Problem Common pedis foot on Spirit left - CHI [facility] Mixed Depression Problem Commo n anxiety with Spirit and anxiety - CHI depressive [facility] Seasonal Allergic Problem Commo n allergic rhinitis, Spiri t rhinitis seasonal - CHI [facility] Pain Pain Problem Common Spirit - CHI [facility] Hammer toe Hammer toe Problem C ommon Spirit - CHI [facility] Mixed Hyperlipid Problem Commo n hyperlipid emia, Spirit emia mixed - CHI [facility] Anemia due Anemia, Problem Comm on to blood blood loss Spir it loss - CHI [facility] 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 - CH I [facility] Ulcer Ulcer Problem Common Spirit - CHI [facility] Cataract Cataract Problem Commo n Spirit - CHI [facility] Diabetes Diabetes Problem Commo n mellitus DMII Spirit without without - CHI complicati complicati [facility] on [facility] Glaucoma Glaucoma Problem Commo n Spirit - CHI [facility] Hypertensi Hypertensi Problem C ommon on on Spirit - CHI [facility] Degenerati Degenerati Problem C ommon on of on of Spirit lumbosacra lumbosacra - CHI l l St interverte interverte Anuja kes bral disc bral disc [facility] Center 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) [facility] [id number] Controlled Problem Co mmon type 2 Spirit diabetes - CHI mellitus [facility] diabetic Medical peripheral Center angiopathy without gangrene, without long-term current use of insulin 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 - CHI disease of [facility] coronary [facility] artery Center without angina pectoris Claudicati Claudicati Problem C ommon on on Spirit - CHI [facility] Gastroesop GERD Problem Commo n hageal (gastroeso Spirit reflux phageal - CHI disease reflux St disease) [facility] Vitamin Vitamin Problem Common B12 B12 Spirit deficiency deficiency - [facility] Vitamin D Vitamin D Problem Com mon deficiency deficiency Sp sherly - CHI [facility] [id number] Hypertensi Problem Co mmon ve urgency [facility] [id number] Type 2 Problem Common diabetes Spirit mellitus - CHI with other [facility] kidney Medical complicati Center on Seasonal Seasonal Problem Commo n allergy allergies [facility] [id number] Onychomyco Problem Co mmon sis Spirit CHI [facility] [id number] Dermatitis Problem Co mmon of left Spirit foot CHI [facility] Age-relate Osteoporos Problem C ommon d is without Spirit osteoporos current - CHI is pathologic [facility] fracture, Medical unspecifie Center d osteoporos is type [id number] Stress and Problem Co mmon adjustment Spirit reaction - [facility] [id number] Skin ulcer Problem Com mon of left Spirit foot, - CHI limited to [facility] of skin Medical Center [id number] Atheroscle Problem Co mmon rosis of Spirit port lions - CHI artery of [facility] extremity Medical with Center intermitte nt claudicati on, unspecifie d laterality [id number] Aortic Problem Common valve Spirit stenosis, - CHI etiology [facility] cardiac [facility] valve Medical disease Center unspecifie d [id number] Hair loss Problem Com mon Spirit - CHI [facility] [id number] Calcaneal Problem Co mmon [address] spur, left [facility] Pain in Pain of Problem Common limb left foot [facility] [id number] Acute Problem Common systolic Spirit congestive - CHI heart failure [facility] [id number] Recurrent Problem Com mon falls [facility] Memory Memory Problem Common loss loss [facility] Decreased Decreased Problem Com mon hearing hearing [facility] [id number] Decline in Problem Co mmon verbal Spirit memory - [facility] 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 - CHI with other [facility] kidney Medical complicati Center on, without long-term current use of insulin Hypertensi Hypertensi Problem C ommon ve heart ve heart Spirit disease disease - CHI with with congestive congestive [facility] heart heart Medical failure failure Center [id number] Need for Problem Comm on assistance Spirit due to - CHI unsteady [facility] Pure Pure Problem Resolve 2021-04-29 2021-04-29 Memoria hyperchole hyperchole d 03-04 21:54:55 21:54:55 l sterolemia sterolemia 00:00: Deven reyna (disorder) (disorder) 00 Resolved 03/04/2013 Problem 04/29/2021 [facility] Essential Essential Problem Resolve 2021-04-29 2021-04-29 Memoria hypertensi hypertensi d 05-21 21:54:55 21:54:55 l on on 00:00: Christopher (disorder) (disorder) 00 Resolved 05/21/2012 Problem [facility]/29[facility]20[facility] Transient Transient Problem Resolve 2021-04-29 2021-04-29 Memoria ischemic ischemic d 02-13 21:54:55 21:54:55 l attack attack 00:00: Christopher (disorder) (disorder) 00 Resolved 02/13/2010 Problem 04/29/2021 Walter Arias Toni [...] to drug Bactrim Bactrim Active Memoria l Christopher iodine iodine Active Memoria l Christopher 07672 Drug Active Unknown Common allergy [facility] 36855 Drug Active Unknown Common allergy [facility] Social History Social Habit Start Date Stop Date Quantity Comments Source History of Common Spirit - Tobacco Use [facility] Tobacco use and 2017-03-31 2017-03-31 Smokeless tobacco Me thodist exposure 00:00:00 00:00:00 non-user Hospital Social History 2016-06-08 2016-06-08 [facility] agudeloshannan 12:53:59 12:53:59 Sex Ass[birth year] At [birth year] [facility] 00:00:[facility]00 Hospital Smoking Status Start Date Stop Date Source Never Smoker [facility] Medications Ordered Filled Start Stop Current [...] 00 30 tab, 4 [Aricept] Refill(s), Pharmacy: [facility], 147.32, cm, 02/26/21 11:29:[address] [employer]PER[employer], Height, 64.545, kg, 02/26/21 11:29:[address] [employer]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, Weight Donepezil 2022-0 Yes 5 mg = 1 Wilfrid mendy hydrochlori 1-14 tab, PO, l de 5 MG 17:52: Bedtime, # Herm shannan Oral Tablet 00 30 tab, 4 [Aricept] Refill(s), Pharmacy: [facility], 147.32, cm, 02/26/21 11:29:[address] 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[employer]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, Height, 64.545, kg, 02/26/21 11:29:[address] 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 if still anxious, # 5 tab, 0 Refill(s), Pharmacy: [facility], 149.86, cm, 01/22/21 11:15:[address] SUPER[employer]OR, Height, 64.091, kg, 01/22/21 11:15:[address] SUPER[employer]OR, Weight Furosemide 2020-02 Yes 20 mg = 1 Me moria 20 MG Oral 2-10 tab, PO, l Tablet 17:26: Daily, 0 Christopher 00 Refill(s) Tylenol 2020-02 Yes PO, 0 Memoria 2-10 Refill(s) l 17:26: [place] 00 Furosemide 2020-02 Yes 20 mg = 1 Me moria 20 MG Oral 2-10 tab, PO, l Tablet 17:26: Daily, 0 Christopher 00 Refill(s) Tylenol 2020-02 Yes PO, 0 Memoria 2-10 Refill(s) l 17:26: Christopher 00 Furosemide 2020-02 Yes 20 mg = 1 Me moria 20 MG Oral 2-10 tab, PO, l Tablet 17:26: Daily, 0 [place] 00 Refill(s) Tylenol 2020-02 Yes PO, 0 Memoria 2-10 Refill(s) l 17:26: [place] 00 cetirizine 2020-02 Yes 10 mg = 1 Me moria 10 mg oral 2-10 cap, PO, l capsule 17:25: Daily, 0 [place] n 00 Refill(s) cetirizine 2020-02 Yes 10 mg = 1 Me moria 10 mg oral 2-10 cap, PO, l capsule 17:25: Daily, 0 Mck[place] n 00 Refill(s) cetirizine 2020-02 Yes 10 mg = [...] PO, l tablet 17:23: Daily, 0 Christopher Refill(s) Glipizide 5 2020-02 Yes 5 mg = 1 Me moria MG Oral 2-10 tab, PO, l Tablet 17:22: Daily, 0 [place] Refill(s) Glipizide 5 2020-02 Yes 5 mg = 1 Me moria MG Oral 2-10 tab, PO, l Tablet 17:22: Daily, 0 Christopher Refill(s) Glipizide 5 2020-02 Yes 5 mg = 1 Me moria MG Oral 2-10 tab, PO, l Tablet 17:22: Daily, 0 [place] Refill(s) Neomycin-Po Neomycin-Po No 4{drops BID Neomycin-P lymyxin-HC lymyxin-HC 4-02 _into_a olymyxin-H 3.514512-9 3.510058-5 00:00: ffected C 00 _ear} 3.5-- 1 Neomycin-Po Neomycin-Po No 4{drops BID Neomycin-P lymyxin-HC lymyxin-HC 4-02 _into_a olymyxin-H 3.564011-7 3.5-38237-2 00:00: ffected C 00 _ear} 3.5-07208- 1 Neomycin-Po Neomycin-Po No 4{drops BID Neomycin-P lymyxin-HC lymyxin-HC 4-02 _into_a olymyxin-H 3.512510-4 3.5-14940-8 00:00: ffected C 00 _ear} 3.5-- 1 Neomycin-Po Neomycin-Po 2020- No 4{drops BID Neomycin-P lymyxin-HC lymyxin-HC 4-02 _into_a olymyxin-H 3.583221-5 3.5-18525-2 00:00: ffected C 00 _ear} 3.5-52322- 1 Neomycin-Po Neomycin-Po 2021-0 No 4{drops BID Neomycin-P lymyxin-HC lymyxin-HC 4-02 _into_a olymyxin-H 3.561896-8 3.574535-9 00:00: ffected C 00 _ear} 3.5-60619- 1 Neomycin-Po Neomycin-Po 2021-0 No 4{drops BID Neomycin-P lymyxin-HC lymyxin-HC 4-02 _into_a olymyxin-H 3.598442-0 3.549906-7 00:00: ffected C 00 _ear} 3.5-- 1 Neomycin-Po Neomycin-Po 2021-0 No 4{drops BID Neomycin-P lymyxin-HC lymyxin-HC 4-02 _into_a olymyxin-H 3.569089-4 3.5-52752-1 00:00: ffected C 00 _ear} 3.5-- 1 Neomycin-Po Neomycin-Po 2021-0 No 4{drops BID Neomycin-P lymyxin-HC lymyxin-HC 4-02 _into_a olymyxin-H 3.568673-8 3.5-63722-5 00:00: ffected C 00 _ear} 3.5-- 1 Neomycin-Po Neomycin-Po 2021-0 No 4{drops BID Neomycin-P lymyxin-HC lymyxin-HC 4-02 _into_a olymyxin-H 3.555453-7 3.5-97503-0 00:00: ffected C 00 _ear} 3.5-06296- 1 Neomycin-Po Neomycin-Po 2021-0 No 4{drops BID Neomycin-P lymyxin-HC lymyxin-HC 4-02 _into_a olymyxin-H 3.5-61190-4 3.5-30169-3 00:00: ffected C 00 _ear} 3.5-85635- 1 Neomycin-Po Neomycin-Po 2021-0 No 4{drops BID Neomycin-P lymyxin-HC lymyxin-HC 4-02 _into_a olymyxin-H 3.582469-3 3.5-10800-0 00:00: ffected C 00 _ear} 3.5-10149- 1 Neomycin-Po Neomycin-Po 2021-0 No 4{drops BID Neomycin-P lymyxin-HC lymyxin-HC 4-02 _into_a olymyxin-H 3.5-84561-4 3.5-97601-0 00:00: ffected C 00 _ear} 3.5-42489- 1 Neomycin-Po Neomycin-Po 2021-0 No 4{drops BID Neomycin-P lymyxin-HC lymyxin-HC 4-02 _into_a olymyxin-H 3.5-35417-1 3.5-21665-4 00:00: ffected C 00 _ear} 3.5-- 1 Neomycin-Po Neomycin-Po 2021-0 No 4{drops BID Neomycin-P lymyxin-HC lymyxin-HC 4-02 _into_a olymyxin-H 3.5-42778-3 3.5-75447-4 00:00: ffected C 00 _ear} 3.5-- 1 Neomycin-Po Neomycin-Po 2021-0 No 4{drops BID Neomycin-P lymyxin-HC lymyxin-HC 4-02 _into_a olymyxin-H 3.5-35744-2 3.5-70141-8 00:00: ffected C 00 _ear} 3.5-- 1 Neomycin-Po Neomycin-Po 2021-0 No 4{drops BID Neomycin-P lymyxin-HC lymyxin-HC 4-02 _into_a olymyxin-H 3.539608-9 3.5-74953-9 00:00: ffected C 00 _ear} 3.5-01667- 1 Neomycin-Po Neomycin-Po 2021-0 No 4{drops BID Neomycin-P lymyxin-HC lymyxin-HC 4-02 _into_a olymyxin-H 3.5-11804-2 3.5-05864-2 00:00: ffected C 00 _ear} 3.5-69571- 1 Neomycin-Po Neomycin-Po 2021-0 No 4{drops BID Neomycin-P lymyxin-HC lymyxin-HC 4-02 _into_a olymyxin-H 3.5-53161-2 3.5-11045-8 00:00: ffected C 00 _ear} 3.5-- 1 Neomycin-Po Neomycin-Po No 4{drops BID Neomycin-P lymyxin-HC lymyxin-HC 4-02 _into_a olymyxin-H 3.503328-0 3.558342-8 00:00: ffected C 00 _ear} 3.5- 1 Neomycin-Po Neomycin-Po No 4{drops BID Neomycin-P lymyxin-HC lymyxin-HC 4-02 _into_a olymyxin-H 3.536482-1 3.504145-7 00:00: ffected C 00 _ear} 3.5- Albuterol [...] MG 00:00: 40 MG 00 Pantoprazol Pantoprazol 2020-0 No 1{table QD Pantoprazo e Sodium 40 e Sodium 40 9-23 t} le Sodium MG MG 00:00: 40 MG 00 Pantoprazol Pantoprazol 2020-0 No 1{table QD Pantoprazo e Sodium 40 e Sodium 40 9-23 t} le Sodium MG MG 00:00: 40 MG 00 Pantoprazol Pantoprazol 2020-0 No 1{table QD Pantoprazo e Sodium 40 e Sodium 40 9-23 t} le Sodium MG MG 00:00: 40 MG 00 Pantoprazol Pantoprazol 2020-0 No 1{table QD Pantoprazo e Sodium 40 [...] Pantoprazo e Sodium 40 e Sodium 40 11-05 t} le Sodium MG MG 00:00: 40 MG 00 Pantoprazol Pantoprazol No 1{table QD Pantoprazo e Sodium 40 e Sodium 40 923 t} le Sodium MG MG 00:00: 40 MG 00 Pantoprazol Pantoprazol No 1{table QD Pantoprazo e Sodium 40 e Sodium 40 11-05 t} le Sodium MG MG 00:00: 40 MG 00 Losartan Losartan Yes Na Tripp 1 tablet Common Potassium Potassium 08-04 Spiri t 00:00: - CHI 00 [facility] Flonase Flonase Yes Na Tripp 1 spray in Common 10-11 each Spirit 00:00: nostril - CHI [facility] Flonase 50 Flonase 50 No 1{spray QD Flonase 50 MCG/ACT MCG/ACT 10-11 _in_eac MCG/ACT 00:00: h_nostr 00 il} Flonase 50 Flonase 50 No 1{spray QD Flonase 50 MCG/ACT MCG/ACT 10-11 _in_eac MCG/ACT 00:00: h_nostr 00 il} Flonase 50 Flonase 50 No 1{spray QD Flonase 50 MCG/ACT MCG/ACT 10-11 _in_eac MCG/ACT 00:00: h_nostr il} Flonase 50 Flonase 50 No 1{spray QD Flonase 50 MCG/ACT MCG/ACT 10-11 _in_eac MCG/ACT 00:00: h_nostr 00 il} Flonase 50 Flonase 50 No 1{spray QD Flonase 50 MCG/ACT MCG/ACT 10-11 _in_eac MCG/ACT 00:00: h_nostr 00 il} Flonase 50 Flonase 50 No 1{spray QD Flonase 50 MCG/ACT MCG/ACT 10-11 _in_eac MCG/ACT 00:00: h_nostr 00 il} Flonase 50 Flonase 50 No 1{spray QD Flonase 50 MCG/ACT MCG/ACT 8-29 _in_eac MCG/ACT 00:00: h_nostr 00 il} Flonase 50 Flonase 50 2018 No 1{spray QD Flonase 50 MCG/ACT MCG/ACT 8-29 _in_eac MCG/ACT 00:00: h_nostr 00 il} Flonase 50 Flonase 50 2018 No 1{spray QD Flonase 50 MCG/ACT MCG/ACT [...] _in_eac MCG/ACT 00:00: h_nostr 00 il} metoprolol Yes 50mg Q.5D Take 50 mg M ethodi tartrate 2-[address] (LOPRESSOR) 17:42: (two) Hospi ta 50 mg 42 times a l tablet day. clopidogrel Yes 75mg QD Take 75 mg [facility] (PLAVIX) 75 2-[address] mg tablet 17:42: daily. Hospit a 42 l pentoxifyll 2018-0 Yes 400mg Q.[id number] Take 400 [facility] ine 2-[id number] (TRENTal) 17:42: 3D mouth [...] a 42 l pentoxifyll 2018-0 Yes 400mg Q.[id number] Take 400 Methodi ine 2-[id number] (TRENTal) 11:42: 3D mouth [...] MG 11:42: daily. Hospita tablet 42 l pentoxifyll 2018-0 Yes 400mg Q.[id number] Take 400 Methodi ine 2-[id number] (TRENTal) 11:42: 3D mouth [...] MG 11:42: daily. Hospita tablet 42 l aspirin 2018-0 [...] a 42 l pentoxifyll 2018-0 Yes 400mg Q.[id number] Take 400 Methodi ine 2-[id number] (TRENTal) 11:42: 3D mouth [...] tablet 42 l benzonatate 2018-0 Yes 100mg Q.[id number] Take 1 [facility] (TESSALON) 2-[id number] 100 MG 00:00: 3D (100 mg Hospita capsule 00 total) by l mouth 3 (three) times a day as needed for cough for up to 60 doses. benzonatate 2018-0 Yes 100mg Q.[id number] Take 1 [facility] (TESSALON) 2-[id number] 100 MG 00:00: 3D (100 mg Hospita capsule 00 total) by l mouth 3 (three) times a day as needed for cough for up to 60 doses. benzonatate 2018 Yes 100mg Q.[id number] Take 1 [facility] (TESSALON) 2-[id number] 100 MG 00:00: 3D (100 mg Hospita capsule 00 total) by l mouth 3 (three) times a day as needed for cough for up to 60 doses. benzonatate Yes 100mg Q.[id number] Take 1 [facility] (TESSALON) 2-[id number] 100 MG 00:00: 3D (100 mg Hospita capsule 00 total) by l mouth 3 (three) times a day as needed for cough for up to 60 doses. Ferrlecit No Notes: Memori a 5-01 (sodium l 13:55: ferric [place] 00 gluconate complex (elemental iron) 62.5 mg/5 ml INJ) "Limited stability. Use immediatel y after admixture" (Same as: Ferrlecit) MEDICATION WASTE Product Size: 62.5 mg Product Wasted: ___ mg Ferrlecit No Notes: Memori a 5-01 (sodium l 13:55: ferric [place] 00 gluconate complex (elemental iron) 62.5 mg/5 ml INJ) "Limited stability. Use immediatel y after admixture" (Same as: Ferrlecit) MEDICATION WASTE Product Size: 62.5 mg Product Wasted: ___ mg Ferrlecit No Notes: Memori a 5-01 (sodium l 13:55: ferric Christopher 00 gluconate complex (elemental iron) 62.5 mg/5 ml INJ) "Limited stability. Use immediatel y after admixture" (Same as: Ferrlecit) MEDICATION WASTE Product Size: 62.5 mg Product Wasted: ___ mg Timolol No Notes: Memori a MG/ML 4-30 (Same As: l Ophthalmic 22:00: Timoptic, He rmann Solution 00 Betimol) Timolol No Notes: Memori a MG/ML 4-30 (Same [...] Non-formul l 1.5 MG/ML 14:00: nito. (Same rmann Ophthalmic 00 as: Solution Alphagan-P ) Nitroglycer No Notes: Wilfrid mendy in 0.4 [...] mL, Route: l 03:37: IVP, Drug Christopher 00 form: INJ, PRN, Dosing Weight 66.818, kg, [...] 30 day, Stop date: 07/11/16 22:36:00 CDT latanoprost No Notes: Wilfrid mendy 0.05 MG/ML [...] No 1 tab, Wilfrid mendy thiazide 25 4- Route: PO, l MG / 14:00: Drug Form: [place] Losartan 00 TAB, Potassium Dosing 100 MG Oral Weight Tablet 66.818, kg, Daily, Start date: 06/10/16 9:00:00 CDT, Duration: 30 day, Stop date: 07/09/16 9:00:00 CDT Lasix No Notes: Memoria 4- (Same as: l 14:00: Lasix) Citalopram No 10 mg, 1 Mem oria 4- tab, l 14:00: Route: PO, [place] 00 Drug form: TAB, Daily, Dosing Weight [...] PO, l MG / 14:00: Drug Form: [place] Losartan 00 TAB, Potassium Dosing 100 MG Oral Weight Tablet 66.818, kg, Daily, Start date: 06/10/16 9:00:00 CDT, Duration: 30 day, Stop date: 07/09/16 9:00:00 CDT Lasix No Notes: Memoria 4-28 (Same as: l 14:00: Lasix) Citalopram No 10 mg, 1 Mem oria 4-28 tab, l 14:00: Route: PO, Drug form: TAB, Daily, Dosing Weight 66.818, kg, Start date: 06/10/16 9:00:00 CDT, Duration: 30 day, Stop date: 07/09/16 9:00:00 CDT hydrochloro No Notes: Wilfrid mendy thiazide 25 4-28 (Same as: l mg oral 14:00: Hydrodiuri Herm shannan tablet 00 l) With food. Cozaar No Notes: Memoria 4-28 (Same as: l 14:00: Cozaar) Hydrochloro 0 No 1 tab, Wilfrid mendy thiazide 25 4-28 Route: PO, l MG / 14:00: Drug Form: Losartan TAB, Potassium Dosing 100 MG Oral Weight Tablet 66.818, kg, Daily, Start date: 06/10/16 9:00:00 CDT, Duration: 30 day, Stop date: 07/09/16 9:00:00 CDT Lasix 0 No Notes: Memoria 4-28 (Same as: l 14:00: Lasix) Citalopram No 10 mg, 1 Mem oria 4-28 tab, l 14:00: Route: PO, Drug form: TAB, Daily, Dosing Weight 66.818, kg, Start date: 06/10/16 9:00:00 CDT, Duration: 30 day, Stop date: 07/09/16 9:00:00 CDT hydrochloro 0 No Notes: Wilfrid mendy thiazide 25 4-28 (Same as: l mg oral 14:00: Hydrodiuri Herm shannan tablet 00 l) With food. Cozaar No Notes: Memoria 4-28 (Same as: l 14:00: Cozaar) sodium 0 No 250 mL, Memoria chloride 4-28 Rate: On l 0.9% INJ 11:30: call for Jackelyn nn 250 mL 00 use with blood product administra tion, Dosing Weight 66.818, kg, Route: IV, Total Volume: 250, Start Date: 06/10/16 6:30:00 CDT, Duration: 1 day, Stop date: 06/11/16 6:29:00 CDT, Replace Every: 24 hr sodium 2017-0 No 250 mL, Memoria chloride 4-28 Rate: On l 0.9% INJ 11:30: call for Jackelyn nn 250 mL 00 use with blood product administra tion, Dosing Weight 66.818, kg, Route: IV, Total Volume: 250, Start Date: 06/10/16 6:30:00 CDT, Duration: 1 day, Stop date: 06/11/16 6:29:00 CDT, Replace Every: 24 hr sodium 2016-0 No 250 mL, Memoria chloride 4-28 Rate: [...] With food l Tablet 04:18: or milk [place] [Xanax] 00 (Same as: Xanax) Alprazolam No Notes: Memor ia 0.5 MG Oral 4-28 With food l Tablet 04:18: or milk [place] [Xanax] 00 (Same as: Xanax) Alprazolam No Notes: Memor ia 0.5 MG Oral 4-28 With food l Tablet 04:18: or milk [place] [Xanax] 00 (Same as: Xanax) Symbicort No Notes: Memori a 160/4.5 -28 (Same as: l inhalation 02:00: Symbicort) H ermann aerosol 00 WASTE: with Aerosol - adapter Return to Pharmacy atorvastati No Notes: Wilfrid mendy n 4-28 (Same As: l 02:00: Lipitor) Christopher 00 insulin, No Notes: Memoria isophane 4- Roll in l 02:00: palms of Christopher [...] with Aerosol - adapter Return to Pharmacy [facility] No Notes: Wilfrid mendy n 06-10 (Same As: l 02:00: Lipitor) [place] 00 insulin, No Notes: Memoria isophane 4 Roll in l 02:00: palms of [place] 00 hands gently; Do not shake vigorously [...] with Aerosol - adapter Return to Pharmacy [facility] No Notes: Wilfrid mendy n 4-28 (Same As: l 02:00: Lipitor) Christopher 00 insulin, No Notes: Memoria isophane 4- Roll in l 02:00: palms of [place] 00 hands gently; Do not shake vigorously . (Same as: NovoLIN N, Humulin N) Do not hold insulin without contacting prescriber "single patient use only" WASTE: F/P - Black; E - Municipal Trash Bin Stable for 14 days at room temperatur e Expires in days from ____Date Dextrose 2017-0 No 25 mL, Memoria 50% Syringe - Route: l 14:55: IVP, [place] 00 Dosing Weight 66.818, kg, PRN, PRN Blood Glucose Results, Start date: 06/09/16 9:55:00 CDT, Duration: 30 day, Stop date: 07/09/16 9:54:00 CDT Glucagon 2017-0 No 1 mg, Memoria 4-27 Route: IM, l 14:55: PRN, Christopher 00 Dosing Weight 66.818, kg, PRN Blood Glucose Results, Start date: 06/09/16 9:55:00 CDT, Duration: 30 day, Stop date: 07/09/16 9:54:00 CDT Dextrose 2017-0 No 25 mL, Memoria 50% Syringe - Route: l 14:55: IVP, [place] 00 Dosing Weight 66.818, kg, PRN, PRN Blood Glucose Results, Start date: 06/09/16 9:55:00 CDT, Duration: 30 day, Stop date: 07/09/16 9:54:00 CDT Glucagon 2017-0 No 1 mg, Memoria 4-27 Route: IM, l 14:55: PRN, Christopher 00 Dosing Weight 66.818, kg, PRN Blood Glucose Results, Start date: 06/09/16 9:55:00 CDT, Duration: 30 day, Stop date: 07/09/16 9:54:00 CDT Dextrose 2017-0 No 25 mL, Memoria 50% Syringe - Route: l 14:55: IVP, Christopher 00 Dosing Weight 66.818, kg, PRN, PRN Blood Glucose Results, Start date: 06/09/16 9:55:00 CDT, Duration: 30 day, Stop date: 07/09/16 9:54:00 CDT Glucagon 2017-0 No 1 mg, Memoria 4-27 Route: IM, l 14:55: PRN, [place] 00 Dosing Weight 66.818, kg, PRN Blood Glucose Results, Start date: 06/09/16 9:55:00 CDT, Duration: 30 day, Stop date: 05/27/17 9:54:00 CDT metoprolol No Notes: Memor ia tartrate 06-09 (Same as: l 14:00: Lopressor) Streptococc No Notes: Wilfrid mendy us 06-09 Lightly l pneumoniae 14:00: roll vial He rmann serotype 1 00 (DO NOT capsular SHAKE) antigen before diphtheria administra [id number] tion. protein (Same as: conjugate Prevnar vaccine / 13) Streptococc us pneumoniae serotype 14 capsular antigen diphtheria [id number] protein conjugate vaccine / Streptococc us pneumoniae serotype 18C capsular antigen d metoprolol No Notes: Memor ia tartrate 06-09 (Same as: l 14:00: Lopressor) Streptococc No Notes: Wilfrid mendy us 06-09 Lightly l pneumoniae 14:00: roll vial He rmann serotype 1 00 (DO NOT capsular SHAKE) antigen before diphtheria administra [id number] tion. protein (Same as: conjugate Prevnar vaccine / 13) Streptococc us pneumoniae serotype 14 capsular antigen diphtheria [id number] protein conjugate vaccine / Streptococc us pneumoniae serotype 18C capsular antigen d metoprolol No Notes: Memor ia tartrate 06-09 (Same as: l 14:00: Lopressor) Streptococc No Notes: Wilfrid mendy us 06-09 Lightly l pneumoniae 14:00: roll vial He rmann serotype 1 00 (DO NOT capsular SHAKE) antigen before diphtheria administra [id number] tion. protein (Same as: conjugate Prevnar vaccine / 13) Streptococc us pneumoniae serotype 14 capsular antigen diphtheria [id number] protein conjugate vaccine / Streptococc us pneumoniae serotype 18C capsular antigen d Lovenox No Notes: Memoria 06-09 (Same as: l 11:00: Lovenox) Lovenox No Notes: Memoria 06-09 (Same as: l 11:00: Lovenox) [place] 00 Lovenox No Notes: Memoria 06-09 (Same as: [...] 4-27 mL, Route: l 02:44: IVP, Drug [place] 00 Form: INJ, Dosing Weight 66.818, kg, PRN, PRN Blood Glucose Results, Start date: 06/08/16 21:44:00 CDT, Duration: 30 day, Stop date: 07/08/16 21:43:00 CDT Glucagon 2017-0 No 1 mg, Memoria 4-27 Route: IM, l 02:44: Drug form: Christopher 00 PDR/INJ, PRN, Dosing Weight 66.818, kg, PRN Blood Glucose Results, Start date: 06/08/16 21:44:00 CDT, Duration: 30 day, Stop date: 07/08/16 21:43:00 CDT Insulin, 2016-0 No Notes: Memoria Aspart, 4-27 Roll in l Human 02:44: palms of [place] 00 hands gently; Do not shake vigorously . (Same as: NovoLOG) "single patient use only" WASTE: F/P - Black; E - Municipal Trash Bin Stable for 28 days at room temperatur e. Expires in days from ____Date Dextrose 2017-0 No 25 gm, 50 Wilfrid mendy 50% Syringe 4-27 mL, Route: l 02:44: IVP, Drug Christopher 00 Form: INJ, Dosing Weight 66.818, kg, PRN, PRN Blood Glucose Results, Start date: 06/08/16 21:44:00 CDT, Duration: 30 day, Stop date: 07/08/16 21:43:00 CDT Glucagon 2017-0 No 1 mg, Memoria 4-27 Route: IM, l 02:44: Drug form: [place] 00 PDR/INJ, PRN, Dosing Weight 66.818, kg, PRN Blood Glucose Results, Start date: 06/08/16 21:44:00 CDT, Duration: 30 day, Stop date: 07/08/16 21:43:00 CDT Insulin, No Notes: Memoria Aspart, 4-27 Roll in l Human 02:44: palms of Christopher 00 hands gently; Do not shake vigorously . (Same as: NovoLOG) "single patient use only" WASTE: F/P - Black; E - Municipal Trash Bin Stable for 28 days at room temperatur e. Expires in days from ____Date Dextrose No 25 gm, 50 Wilfrid mendy 50% Syringe 4-27 mL, Route: l 02:44: IVP, Drug [place] 00 Form: INJ, Dosing Weight 66.818, kg, PRN, PRN Blood Glucose Results, Start date: 06/08/16 21:44:00 CDT, Duration: 30 day, Stop date: 07/08/16 21:43:00 CDT Glucagon No 1 mg, Memoria - Route: IM, l 02:44: Drug form: Christopher 00 PDR/INJ, PRN, Dosing Weight 66.818, kg, PRN Blood Glucose Results, Start date: 06/08/16 21:44:00 CDT, Duration: 30 day, Stop date: 07/08/16 21:43:00 CDT Labetalol No Notes: Memori a 4-26 (Same as: l 19:46: Normodyne, Christopher 00 Trandate) Push over 2 minutes Give bolus over 2-3 minutes. Labetalol No Notes: Memori a 4-26 (Same as: l 19:46: Normodyne, Christopher 00 Trandate) Push over 2 minutes Give bolus over 2-3 minutes. Labetalol No Notes: Memori a 4-26 (Same as: l 19:46: Normodyne, [place] 00 Trandate) Push over 2 minutes Give bolus over 2-3 minutes. Hydralazine No Notes: Wilfrid mendy 4-26 (Same as: l 19:45: Apresoline [place] 00 ) Push over 5 minutes Hydralazine No Notes: Wilfrid mendy 4-26 (Same as: l 19:45: Apresoline [place] ) Push over 5 minutes Hydralazine No Notes: Wilfrid mendy 4-26 (Same as: l 19:45: Apresoline Christopher 00 ) Push over 5 minutes Hydralazine No Notes: Wilfrid mendy 4-26 (Same as: l 18:51: Apresoline [place] ) Push over 5 minutes Hydralazine No Notes: Wilfrid mendy 4-26 (Same as: l 18:51: Apresoline Christopher ) Push over 5 minutes Hydralazine No Notes: Wilfrid mendy 4-26 (Same as: l 18:51: Apresoline Christopher ) Push over 5 minutes glycopyrrol No Route: IV, Memoria ate (ANES) 06-08 Drug form: l 16:45: INJ, ONCE, Stop date: 06/08/16 11:45:00 CDT neostigmine No Route: IV, Memoria (ANES) 06-08 Drug form: l 16:45: INJ, ONCE, Stop date: 06/08/16 11:45:00 CDT glycopyrrol 0 No Route: IV, Memoria ate (ANES) 06-08 Drug form: l 16:45: INJ, ONCE, Stop date: 06/08/16 11:45:00 CDT neostigmine 0 No Route: IV, Memoria (ANES) 06-08 Drug form: l 16:45: INJ, ONCE, Stop date: 06/08/16 11:45:00 CDT glycopyrrol 0 No Route: IV, Memoria ate (ANES) 06-08 Drug form: l 16:45: INJ, ONCE, Stop date: 06/08/16 11:45:00 CDT neostigmine 0 No Route: IV, Memoria (ANES) 06-08 Drug form: l 16:45: INJ, ONCE, Stop date: 06/08/16 11:45:00 CDT ondansetron No Route: IV, Memoria (ANES) 06-08 Drug form: l 16:44: INJ, ONCE, Stop date: 06/08/16 11:44:00 CDT ondansetron No Route: IV, Memoria (ANES) 4-26 Drug form: l 16:44: INJ, ONCE, Stop date: 06/08/16 11:44:00 CDT ondansetron No Route: IV, Memoria (ANES) 4-26 Drug form: l 16:44: INJ, ONCE, Stop [...] acetaminoph No Notes: Do M emoria en-codeine 4-26 not exceed l #3 16:33: 4gm/day of [place] 00 acetaminop hen. (Same as: Tylenol with Codeine [...] acetaminoph No Notes: Do M emoria en-codeine 4-26 not exceed l #3 16:33: 4gm/day of Christopher 00 acetaminop hen. (Same as: Tylenol with Codeine [...] Notes: Memoria 06-08 (Same l 16:33: as:MORPhin [place] 00 e Sulfate) acetaminoph No Notes: Do M emoria en-codeine 06-08 not exceed l #3 16:33: 4gm/day of [place] 00 acetaminop hen. (Same as: Tylenol with Codeine [...] 06-08 Drug form: l 16:04: INJ, ONCE, [place] 00 Stop date: 06/08/16 11:04:00 CDT norepinephr No Route: IV, Memoria ine (ANES) 06-08 Drug form: l 16:04: INJ, ONCE, [place] 00 Stop date: 06/08/16 11:04:00 CDT norepinephr No Route: IV, Memoria ine (ANES) 426 Drug form: l 16:04: INJ, ONCE, Stop date: 06/08/16 11:04:00 CDT lidocaine 2016-0 No Route: IV, Me moria (ANES) 06-08 Drug form: l 15:55: INJ, ONCE, Stop date: 06/08/16 10:55:00 CDT rocuronium 2017-0 No Route: IV, Cricket emoria (ANES) 06-08 Drug form: l 15:55: INJ, ONCE, Stop date: 06/08/16 10:55:00 CDT propofol 0 No Route: IV, Mem oria (ANES) 06-08 Drug form: l 15:55: INJ, ONCE, Stop date: 06/08/16 10:55:00 CDT heparin 2017-0 No Route: IV, Wilfrid mendy (ANES) 06-08 Drug form: l 15:55: INJ, ONCE, Stop date: 06/08/16 10:55:00 CDT lidocaine 2017-0 No Route: IV, moria (ANES) 06-08 Drug form: l 15:55: INJ, ONCE, Stop date: 06/08/16 10:55:00 CDT rocuronium 2017-0 No Route: IV, Cricket emoria (ANES) 06-08 Drug form: l 15:55: INJ, ONCE, Stop date: 06/08/16 10:55:00 CDT propofol 2017-0 No Route: IV, Mem oria (ANES) 06-08 Drug form: l 15:55: INJ, ONCE, Stop date: 06/08/16 10:55:00 CDT heparin 2017-0 No Route: IV, Wilfrid mendy (ANES) 06-08 Drug form: l 15:55: INJ, ONCE, Stop date: 06/08/16 10:55:00 CDT lidocaine 2017-0 No Route: IV, Me moria (ANES) 06-08 Drug form: l 15:55: INJ, ONCE, Stop date: 06/08/16 10:55:00 CDT rocuronium 2016-0 No Route: IV, M emoria (ANES) 06-08 Drug form: l 15:55: INJ, ONCE, Stop date: 06/08/16 10:55:00 CDT propofol No Route: IV, Mem oria (ANES) 06-08 Drug form: l 15:55: INJ, ONCE, [place] 00 Stop date: 06/08/16 10:55:00 CDT heparin No [...] form: l (ANES) 15:45: INJ, Start Jackelyn nn date: 06/08/16 10:45:00 CDT, Stop date: 06/08/16 11:45:00 CDT acetaminoph No Route: IV, Memoria en (ANES) 06-08 Drug form: l (ANES) 15:45: INJ, Start Jackelyn date: 06/08/16 10:45:00 CDT, Stop date: 06/08/16 11:45:00 CDT famotidine 2017-0 No Route: IV, M emoria (ANES) 4-26 Drug form: l 15:39: INJ, ONCE, Stop date: 06/08/16 10:39:00 CDT methylPREDN 2017-0 No Route: IV, Memoria ISolone 4- Drug form: l (ANES) 15:39: INJ, ONCE, Stop date: 06/08/16 10:39:00 CDT diphenhydrA 0 No Route: IV, Memoria MINE (ANES) 4- Drug form: l 15:39: INJ, ONCE, Stop date: 06/08/16 10:39:00 CDT famotidine No Route: IV, M emoria (ANES) 4-26 Drug form: l 15:39: INJ, ONCE, Stop date: 06/08/16 10:39:00 CDT methylPREDN 2016- No Route: IV, Memoria ISolone 4- Drug form: l (ANES) 15:39: INJ, ONCE, Stop date: 06/08/16 10:39:00 CDT diphenhydrA 0 No Route: IV, Memoria MINE (ANES) 4- Drug form: l 15:39: INJ, ONCE, Stop date: 06/08/16 10:39:00 CDT famotidine 0 No Route: IV, M emoria (ANES) 4- Drug form: l 15:39: INJ, ONCE, Stop date: 06/08/16 10:39:00 CDT methylPREDN 2016-0 No Route: IV, Memoria ISolone - Drug form: l (ANES) 15:39: INJ, ONCE, Stop date: 06/08/16 10:39:00 CDT diphenhydrA 2016-0 No Route: IV, Memoria MINE (ANES) 4- Drug form: l 15:39: INJ, ONCE, Stop date: 06/08/16 10:39:00 CDT norepinephr No Route: IV, Memoria ine (ANES) - Drug form: l (ANES) 15:25: INJ, Start date: 06/08/16 10:25:00 CDT, Stop date: 06/08/16 11:25:00 CDT norepinephr No Route: IV, Memoria ine (ANES) 4- Drug form: l (ANES) 15:25: INJ, Start Jackelyn nn date: 06/08/16 10:25:00 CDT, Stop date: 06/08/16 11:25:00 CDT norepinephr No Route: IV, Memoria ine (ANES) 4- Drug form: l (ANES) 15:25: INJ, Start Jackelyn nn date: 06/08/16 10:25:00 CDT, Stop date: 06/08/16 11:25:00 CDT vancomycin No Route: IV, M emoria (ANES) 4- Drug form: l (ANES) 15:01: INJ, Start Jackelyn nn date: 06/08/16 10:01:00 CDT, Stop date: 06/08/16 11:01:00 CDT vancomycin No Route: IV, M emoria (ANES) 4 Drug form: l (ANES) 15:01: INJ, Start Jackelyn nn date: 06/08/16 10:01:00 CDT, Stop date: 06/08/16 11:01:00 CDT vancomycin No Route: IV, M emoria (ANES) 4- Drug form: l (ANES) 15:01: INJ, Start Jackelyn nn date: 06/08/16 10:01:00 CDT, Stop date: 06/08/16 11:01:00 CDT sodium No Route: IV, Memor ia chloride - Total l 0.9% 1000 14:57: Volume: Jackelyn nn ml INJ 00 1,000, (ANES) Start date: 06/08/16 9:57:00 CDT, Stop date: 06/08/16 10:57:00 CDT sodium No Route: IV, Memor ia chloride 4- Total l 0.9% 1000 14:57: Volume: Jackelyn nn ml INJ 00 1,000, (ANES) Start date: 06/08/16 9:57:00 CDT, Stop date: 06/08/16 10:57:00 CDT sodium No Route: IV, Memor ia chloride 4-26 Total l 0.9% 1000 14:57: Volume: Jackelyn nn ml INJ 00 1,000, (ANES) Start date: 06/08/16 9:57:00 CDT, Stop date: 06/08/16 10:57:00 CDT ceFAZolin No Route: IV, Me moria (ANES) 4-26 Drug form: l (ANES) 14:51: INJ, Start Jackelyn nn date: 06/08/16 9:51:00 CDT, Stop date: 06/08/16 10:51:00 CDT ceFAZolin No Route: IV, Me moria (ANES) 4-26 Drug form: l (ANES) 14:51: INJ, Start Jackelyn nn date: 06/08/16 9:51:00 CDT, Stop date: 06/08/16 10:51:00 CDT ceFAZolin No Route: IV, Me moria (ANES) 4-26 Drug form: l (ANES) 14:51: INJ, Start Jackelyn nn date: 06/08/16 9:51:00 CDT, Stop date: 06/08/16 10:51:00 CDT LR 1000 mL No Route: IV, M emoria INJ (ANES) 4-26 Total l 14:30: Volume: Christopher 00 1,000, Start date: 06/08/16 9:30:00 CDT, Stop date: 06/08/16 10:30:00 CDT LR 1000 mL No Route: IV, M emoria INJ (ANES) 4-26 Total l 14:30: Volume: Christopher 00 1,000, Start date: 06/08/16 9:30:00 CDT, Stop date: 06/08/16 10:30:00 CDT LR 1000 mL No Route: IV, M emoria INJ (ANES) 4-26 Total l 14:30: Volume: Christopher 00 1,000, Start date: 06/08/16 9:30:00 CDT, Stop date: 06/08/16 10:30:00 CDT Insulin 2017-0 No 6 unit, Memoria regular - Route: IV, l 14:10: ONCE, Christopher Dosing Weight 66.818, kg, Start date: 06/08/16 9:10:00 CDT, Stop date: 06/08/16 9:10:00 CDT Insulin 2017-0 No 6 unit, Memoria regular 06-08 Route: IV, l 14:10: ONCE, [place] Dosing Weight 66.818, kg, Start date: 06/08/16 9:10:00 CDT, Stop date: 06/08/16 9:10:00 CDT Insulin 2016-0 No 6 unit, Memoria regular 06-08 Route: IV, l 14:10: ONCE, Christopher Dosing Weight 66.818, kg, Start date: 06/08/16 9:10:00 CDT, Stop date: 06/08/16 9:10:00 CDT Albuterol No Notes: Memori a 0.833 MG/ML - (Same as: mike : Dayami) Christopher Ipratropium 00 [place] 0.167 MG/ML Inhalant Solution Calcium No 1,000 mL, Memor ia Chloride 06-08 Rate: 25 l 0.0014 14:07: ml/hr, Christopher MEQ/ML / 00 Infuse Potassium over: 40 Chloride hr, Route: 0.004 IV, Dosing MEQ/ML / Weight Sodium 66.818 kg, Chloride Total 0.103 Volume: MEQ/ML / 1,000, Sodium Start Lactate date: 0.028 06/08/16 MEQ/ML 9:07:00 Injectable CDT, Solution Duration: 1 day, Stop date: 06/09/16 9:06:00 CDT Albuterol 0 No Notes: Memori a 0.833 MG/ML 4-26 (Same as: l : Christianonegeeta) [place] Ipratropium 00 [place] 0.167 MG/ML Inhalant Solution Calcium No 1,000 mL, Memor ia Chloride - Rate: 25 l 0.0014 14:07: ml/hr, [place] MEQ/ML / 00 Infuse Potassium over: 40 Chloride hr, Route: 0.004 IV, Dosing MEQ/ML / Weight Sodium 66.818 kg, Chloride Total 0.103 Volume: MEQ/ML / 1,000, Sodium Start Lactate date: 0.028 06/08/16 MEQ/ML 9:07:00 Injectable CDT, Solution Duration: 1 day, Stop date: 06/09/16 9:06:00 CDT Albuterol No Notes: Memori a 0.833 MG/ML 06-08 (Same as: l / 14:07: Duoneb) Christopher Ipratropium 00 [place] 0.167 MG/ML Inhalant Solution Calcium No 1,000 mL, Memor ia Chloride 06-08 Rate: 25 l 0.0014 14:07: ml/hr, [place] MEQ/ML / 00 Infuse Potassium over: 40 [...] Memoria 06-08 Same as: l 12:00: Ancef [place] 00 Vancomycin 2016-0 No 2000 mg: Me moria 4-26 infuse l 12:00: over 2.5 [place] 00 hours MEDICATION WASTE Product Size: 1000 mg Product Wasted: ___ mg Ancef 2016- No Notes: Memoria 06-08 Same as: l 12:00: Ancef [place] 00 Vancomycin 2016-0 No 2001 mg: Me moria 4-26 infuse l 12:00: over 2.5 Christopher 00 hours MEDICATION WASTE Product Size: 1000 mg Product Wasted: ___ mg Ancef No Notes: Memoria 06-08 Same as: l 12:00: Ancef [place] 00 Morphine 2017-0 No 2 mg, Memoria 4-21 Route: l 17:29: IVP, Q3H, Dosing Weight 68.636, kg, PRN Pain Score 1-3, Start date: 06/03/16 12:29:00 CDT, Duration: 30 day, Stop date: 07/03/16 12:28:00 CDT acetaminoph 2017-0 No 2 tab, Wilfrid mendy en-codeine 4-21 Route: PO, l #3 17:29: Drug Form: Christopher 00 TAB, Dosing Weight 68.636, kg, Q4H, PRN Pain Score 4-6, Start date: 06/03/16 12:29:00 CDT, Duration: 30 day, Stop date: 07/03/16 12:28:00 CDT Morphine 2017-0 No 2 mg, Memoria 4-21 Route: l 17:29: IVP, Q3H, Dosing Weight 68.636, kg, PRN Pain Score 1-3, Start date: 06/03/16 12:29:00 CDT, Duration: 30 day, Stop date: 07/03/16 12:28:00 CDT acetaminoph 2017-0 No 2 tab, Wilfrdi mendy en-codeine 4-21 Route: PO, l #3 17:29: Drug Form: Christopher 00 TAB, Dosing Weight 68.636, kg, Q4H, PRN Pain Score 4-6, Start date: 06/03/16 12:29:00 CDT, Duration: 30 day, Stop date: 07/03/16 12:28:00 CDT Morphine 2017-0 No 2 mg, Memoria 4-21 Route: l 17:29: IVP, Q3H, Dosing Weight 68.636, kg, PRN Pain Score 1-3, Start date: 06/03/16 12:29:00 CDT, Duration: 30 day, Stop date: 07/03/16 12:28:00 CDT acetaminoph 2017-0 No 2 tab, Wilfrid mendy en-codeine 4-21 Route: PO, l #3 17:29: Drug Form: [place] 00 TAB, Dosing Weight 68.636, kg, Q4H, PRN Pain Score 4-6, Start date: 06/03/16 12:29:00 CDT, Duration: 30 day, Stop date: 07/03/16 12:28:00 CDT diphenhydrA 2016-0 No Route: IV, Memoria MINE (ANES) 4- Drug form: l 17:24: INJ, ONCE, Christopher Stop date: 06/03/16 12:24:00 CDT methylPREDN 2017-0 No Route: IV, Memoria ISolone - Drug form: l (ANES) 17:24: INJ, ONCE, Jackelyn Stop date: 06/03/16 12:24:00 CDT ondansetron [id number] No Route: IV, Memoria (ANES) 4- Drug form: l 17:24: INJ, ONCE, [place] 00 Stop date: 06/03/16 12:24:00 CDT fentaNYL 2017-0 No Route: IV, Mem oria (ANES) 06-03 Drug form: l 17:24: INJ, ONCE, Stop date: 06/03/16 12:24:00 CDT midazolam 2017-0 No Route: IV, Me moria (ANES) 06-03 Drug form: l 17:24: SOLN, ONCE, Stop date: 06/03/16 12:24:00 CDT famotidine 2016-0 No Route: IV, M emoria (ANES) 06-03 Drug form: l 17:24: INJ, ONCE, Christopher 00 Stop date: 06/03/16 12:24:00 CDT diphenhydrA 2016-0 No Route: IV, Memoria MINE (ANES) 4- Drug form: l 17:24: INJ, ONCE, [place] 00 Stop date: 06/03/16 12:24:00 CDT methylPREDN 2017-0 No Route: IV, Memoria ISolone - Drug form: l (ANES) 17:24: INJ, ONCE, Jackelyn nn Stop date: 06/03/16 12:24:00 CDT ondansetron 2017-0 No Route: IV, Memoria (ANES) 4- Drug form: l 17:24: INJ, ONCE, Christopher 00 Stop date: 06/03/16 12:24:00 CDT fentaNYL 2017-0 No Route: IV, Mem oria (ANES) 06-03 Drug form: l 17:24: INJ, ONCE, Christopher Stop date: 06/03/16 12:24:00 CDT midazolam No Route: IV, Me moria (ANES) 06-03 Drug form: l 17:24: SOLN, [place] 00 ONCE, Stop date: 06/03/16 12:24:00 CDT famotidine No Route: IV, M emoria (ANES) 06-03 Drug form: l 17:24: INJ, ONCE, Christopher 00 Stop date: 06/03/16 12:24:00 CDT diphenhydrA No [...] Christopher 00 Stop date: 06/03/16 12:24:00 CDT midazolam 2017-0 No Route: IV, Me moria (ANES) 06-03 Drug form: l 17:24: SOLN, [place] ONCE, Stop date: 06/03/16 12:24:00 CDT famotidine No Route: IV, M emoria (ANES) 4- Drug form: l 17:24: INJ, ONCE, Christopher 00 Stop date: 06/03/16 12:24:00 CDT vancomycin 0 No Route: IV, M emoria (ANES) 4 Drug form: l (ANES) 17:00: INJ, Start Jackelyn date: 06/03/16 12:00:00 CDT, Stop date: 06/03/16 13:00:00 CDT vancomycin No Route: IV, Cricket emoria (ANES) 4- Drug form: l (ANES) 17:00: INJ, Start Jackelyn nn date: 06/03/16 12:00:00 CDT, Stop date: 06/03/16 13:00:00 CDT vancomycin No Route: IV, Cricket emoria (ANES) 4- Drug form: l (ANES) 17:00: INJ, Start Jackelyn date: 06/03/16 12:00:00 CDT, Stop date: 06/03/16 13:00:00 CDT ceFAZolin No Route: IV, moria (ANES) 4- Drug form: l (ANES) 16:47: INJ, Start Jackelyn date: 06/03/16 11:47:00 CDT, Stop date: 06/03/16 12:47:00 CDT ceFAZolin No Route: IV, moria (ANES) 4 Drug form: l (ANES) 16:47: INJ, Start Jackelyn date: 06/03/16 11:47:00 CDT, Stop date: 06/03/16 12:47:00 CDT ceFAZolin No Route: IV, moria (ANES) 4- Drug form: l (ANES) 16:47: INJ, Start Jackelyn date: 06/03/16 11:47:00 CDT, Stop date: 06/03/16 12:47:00 CDT LR 1000 mL No Route: IV, Cricket emoria INJ (ANES) - Total l 16:35: Volume: Christopher 00 1,000, Start date: 06/03/16 11:35:00 CDT, Stop date: 06/03/16 12:35:00 CDT LR 1000 mL No Route: IV, Cricket emoria INJ (ANES) - Total l 16:35: Volume: Christopher 00 1,000, Start date: 06/03/16 11:35:00 CDT, Stop date: 06/03/16 12:35:00 CDT LR 1000 mL 2017-0 No Route: IV, M emoria INJ (ANES) 4-21 Total l 16:35: Volume: Christopher 00 1,000, Start date: 06/03/16 11:35:00 CDT, Stop date: 06/03/16 12:35:00 CDT Insulin 2017-0 No 2 unit, Memoria regular 06-03 Route: IV, l 16:03: ONCE, Dosing Weight 68.636, kg, Start date: 06/03/16 11:03:00 CDT, Stop date: 06/03/16 11:03:00 CDT Insulin 2017-0 No 2 unit, Memoria regular 06-03 Route: IV, l 16:03: ONCE, Dosing Weight 68.636, kg, Start date: 06/03/16 11:03:00 CDT, Stop date: 06/03/16 11:03:00 CDT Insulin 2017-0 No 2 unit, Memoria [...] Insulin 2017-0 No 6 unit, Memoria regular - Route: IV, l 15:44: ONCE, Dosing Weight 68.636, kg, Start date: 06/03/16 10:44:00 CDT, Stop date: 06/03/16 10:44:00 CDT Insulin 2017-0 No 6 unit, Memoria regular -21 Route: IV, l 15:42: ONCE, Dosing Weight [...] 2017-0 No 1,000 mL, Wilfrid mendy Ringers 4-21 Rate: 40 l 1,000 mL 15:41: ml/hr, [place] 00 Infuse over: 25 hr, Route: IV, Dosing Weight 68.636 kg, Total Volume: 1,000, Start date: 06/03/16 10:41:00 CDT, Duration: 30 day, Stop date: 07/03/16 10:40:00 CDT Lactated 2017-0 No 1,000 mL, Wilfrid mendy Ringers 4-21 Rate: 40 l 1,000 mL 15:41: ml/hr, [place] 00 Infuse over: 25 hr, Route: IV, Dosing Weight 68.636 kg, Total Volume: 1,000, Start date: 06/03/16 10:41:00 CDT, Duration: 30 day, Stop date: 07/03/16 10:40:00 CDT Lactated 2017-0 No 1,000 mL, Wilfrid mendy Ringers 4-21 Rate: 40 l 1,000 mL 15:41: ml/hr, Christopher 00 Infuse over: 25 hr, Route: IV, Dosing Weight 68.636 kg, Total Volume: 1,000, Start date: 06/03/16 10:41:00 CDT, Duration: 30 day, Stop date: 07/03/16 10:40:00 CDT Vancomycin 2017-0 No 2001 mg: Me moria 4-13 infuse l 14:00: over 2.5 [place] 00 hours MEDICATION WASTE Product Size: 1000 mg Product Wasted: ___ mg Ancef 2016-0 No Notes: Memoria 4-13 Same as: l 14:00: Ancef Vancomycin 2016-0 No 2001 mg: Me moria 4-13 infuse l 14:00: over 2.5 [place] 00 hours MEDICATION WASTE Product Size: 1000 mg Product Wasted: ___ mg Ancef No Notes: Memoria 4-13 Same as: l 14:00: Ancef Vancomycin 2016-0 No 2001 mg: Me moria 4-13 infuse l 14:00: over 2.5 [place] 00 hours MEDICATION WASTE Product Size: 1000 mg Product Wasted: ___ mg Ancef No Notes: Memoria 4-13 Same as: l 14:00: Alendronic Yes 70 mg = 1 Me [...] l Oral Tablet 13:59: Refill(s) H erm Vitamin B12 Yes 1,000 Memor ia 1000 mcg 4-13 microgram l oral tablet 13:58: = 1 tab, He rmann 00 PO, Daily, 0 Refill(s) citalopram Yes 10 mg = 1 Me moria 10 mg oral 4-13 tab, PO, l tablet 13:58: Daily, 0 [place] 00 Refill(s) GlipiZIDE Yes 10 mg = 1 Mem oria XL 10 mg 4-13 tab, PO, l oral 13:58: Daily, 0 [place] tablet, 00 Refill(s) extended release Vitamin B12 Yes 1,000 Memor ia 1000 mcg 4-13 microgram l oral tablet 13:58: = 1 tab, He rmann 00 PO, Daily, 0 Refill(s) citalopram Yes 10 mg = 1 Me moria 10 mg oral 4-13 tab, PO, l tablet 13:58: Daily, 0 [place] 00 Refill(s) GlipiZIDE Yes 10 mg = [...] tab, PO, l MEQ 13:57: BID, 0 [place] Extended 00 Refill(s) Release Tablet [Klor-Con] pentoxifyll Yes 400 mg = 1 Memoria ine 400 mg 4-13 tab, PO, l oral 13:57: TID, 0 [place] tablet, 00 Refill(s) extended release Potassium Yes 10 mEq = 1 Me moria Chloride 10 4-13 tab, PO, l MEQ 13:57: BID, 0 Christopher Extended 00 Refill(s) Release Tablet [Klor-Con] pentoxifyll Yes 400 mg = 1 Memoria ine 400 mg 4-13 tab, PO, l oral 13:57: TID, 0 Christopher tablet, 00 Refill(s) extended release isosorbide 2012- No Carol 20 mg, 1 M emoria dinitrate 3- Rajagopala tab, l 18:00: s Alphonso Route: PO, Her nagel 00 Drug form: TAB, TID, Dosing Weight 69.091, kg, Start date: 04/26/12 13:00:00, Duration: 30 day, Stop date: 05/26/12 9:00:00 isosorbide 2012-0 No Carol 20 mg, 1 M emoria dinitrate 04-26 Rajagopala tab, l 18:00: s Alphonso Route: PO, Her nagel 00 Drug form: TAB, TID, Dosing Weight 69.091, kg, Start date: 04/26/12 13:00:00, Duration: 30 day, Stop date: 05/26/12 9:00:00 isosorbide 2012- No Carol 20 mg, 1 M emoria dinitrate 04-26 Rajagopala tab, l 18:00: s Alphonso Route: PO, Her [facility] 00 Drug form: TAB, TID, Dosing Weight [...] tab, Substituti on Allowed, TAB losartan 50 2012-0 Yes Taso 100 mg, 2 M emoria mg oral 3-14 Mougouris tab, PO, l tablet 16:05: Daily, 30 Mckinley n 17 tab, Substituti on Allowed, TAB metoprolol Yes Taso 75 mg, 1.5 M emoria 50 mg oral 3-14 Mougouris tab, PO, l tablet 16:04: BID, 30 Christopher 44 tab, Substituti on Allowed, TAB metoprolol 2013-0 Yes Taso 75 mg, 1.5 M emoria 50 mg oral 3-14 Mougouris tab, PO, l tablet 16:04: BID, 30 Christopher 44 tab, Substituti on Allowed, TAB metoprolol 2012-0 Yes Taso 75 mg, 1.5 M emoria 50 mg oral 3-14 Mougouris tab, PO, l tablet 16:04: BID, 30 [place] 44 tab, Substituti on Allowed, TAB rosuvastati 2012-0 Yes Taso 20 mg, 2 Me moria n 10 mg 3-14 Mougouris tab, PO, l oral tablet 16:02: QPM, 30 Her nagel 51 tab, Substituti on Allowed, TAB rosuvastati 2012-0 Yes Taso 20 mg, 2 Me moria n 10 mg 3-14 Mougouris tab, PO, l oral tablet 16:02: QPM, 30 Her nagel 51 tab, Substituti on Allowed, TAB rosuvastati 2012-0 [...] 41 tab, Substituti on Allowed, TAB isosorbide 2012-0 Yes Taso 20 mg, 1 Mem oria dinitrate 3-14 Mougouris tab, PO, l 20 mg oral 16:02: BID, 60 Herm shannan tablet 41 tab, Substituti on Allowed, TAB isosorbide 2012-0 [...] tab, Itching, Substituti on Allowed, TAB diphenhydrA 2012-0 Yes Taso 25 mg, 1 Me moria MINE 25 mg 3-14 Mougouris tab, PO, l oral tablet 16:02: TID, PRN, H ermann 31 30 tab, Itching, Substituti on Allowed, TAB diphenhydrA Yes Taso 25 mg, 1 Me moria MINE 25 mg 3-14 Mougouris tab, PO, l oral tablet 16:02: TID, PRN, H ermann 31 30 tab, Itching, Substituti on Allowed, TAB aspirin 325 Yes Taso 325 mg, 1 M emoria mg tablet, 3-14 Mougouris tab, PO, l enteric 16:02: QAM, 30 [place] coated 25 tab, Substituti on Allowed, ECTAB aspirin 325 Yes Taso 325 mg, 1 M emoria mg tablet, 3-14 Mougouris tab, PO, l enteric 16:02: QAM, 30 Christopher coated 25 tab, Substituti on Allowed, ECTAB aspirin 325 Yes Taso 325 mg, 1 M emoria mg tablet, 3-14 Mougouris tab, PO, l enteric 16:02: QAM, 30 [place] coated 25 tab, Substituti on Allowed, ECTAB acetaminoph Yes Taso 1 tab, PO, Memoria en-hydrocod 3-14 Mougouris Q4H, PRN, l one 325 16:02: 30 tab, [place] mg-5 mg 22 Pain Score oral tablet 1-3, Substituti on Allowed, Maintenanc e, TAB acetaminoph Yes Taso 1 tab, PO, Memoria en-hydrocod 3-14 Mougouris Q4H, PRN, l one 325 16:02: 30 tab, Christopher mg-5 mg 22 Pain Score oral tablet 1-3, Substituti on Allowed, Maintenanc e, TAB acetaminoph Yes Taso 1 tab, PO, Memoria [...] 30 day, Stop date: 05/25/12 17:00:00 Crestor 2013-0 No Carol 20 mg, 2 Wilfrid mendy 3-14 Rajagopala tab, l 02:00: s Alphonso Route: PO, Her nagel 00 Drug form: TAB, QPM, Dosing Weight 69.091, kg, Start date: 04/25/12 21:00:00, Duration: 30 day, Stop date: 05/25/12 17:00:00 isosorbide 2013-0 No Carol 20 mg, 1 M emoria dinitrate 3-14 Rajagopala tab, l 02:00: s Alphonso Route: PO, Her nagel 00 Drug form: TAB, BID, Dosing Weight 69.091, kg, Start date: 04/25/12 21:00:00, Duration: 30 day, Stop date: 05/25/12 17:00:00 Crestor 2013-0 No Carol 20 mg, 2 Wilfrid mendy 3-14 Rajagopala tab, l 02:00: s Alphonso Route: PO, Her nagel 00 Drug form: TAB, QPM, Dosing Weight 69.091, kg, Start date: 04/25/12 21:00:00, Duration: 30 day, Stop date: 05/25/12 17:00:00 isosorbide 2013-0 No Carol 20 mg, 1 M emoria dinitrate 3-14 Rajagopala tab, l 02:00: s Alphonso Route: PO, Her nagel 00 Drug form: TAB, BID, Dosing Weight 69.091, kg, Start date: 04/25/12 21:00:00, Duration: 30 day, Stop date: 05/25/12 17:00:00 Crestor 2013-0 No Carol 20 mg, 2 Wilfrid mendy 3-14 Rajagopala tab, l 02:00: s Alphonso Route: PO, Her nagel 00 Drug form: TAB, QPM, Dosing Weight 69.091, kg, Start date: 04/25/12 21:00:00, Duration: 30 day, Stop date: 05/25/12 17:00:00 methylPREDN 2012-0 No Kowalski Lissett 20 mg, 0.5 Memoria ISolone 3-14 [place] mL, Route: l 01:20: IV, Drug Christopher 00 form: INJ, ONCE, Start date: 04/25/12 20:20:00, Stop date: 04/25/12 20:20:00 methylPREDN 2012-0 No Kowalski Lissett 20 mg, 0.5 Memoria ISolone 3-14 [place]rell mL, Route: l 01:20: IV, Drug Christopher 00 form: INJ, ONCE, Start date: 04/25/12 20:20:00, Stop date: 04/25/12 20:20:00 methylPREDN 2012-0 No Kowalski Lissett 20 mg, 0.5 Memoria ISolone 3-14 [place]rell mL, Route: l 01:20: IV, Drug [place] 00 form: INJ, ONCE, Start date: 04/25/12 [...] 3-13 [place]rell tab, l 02:00: Route: PO, [place] 00 Drug form: TAB, Bedtime, Dosing Weight [...] Sanjiv 25 mg, 1 Memor ia 3-12 Cheondoism tab, l 09:47: Shant Route: PO, Herm shannan 00 Drug form: TAB, TID, Dosing Weight 69.091, kg, PRN Itching, Start date: 04/24/12 4:47:00, Duration: 30 day, Stop date: 05/24/12 4:46:00 Benadryl 2013-0 No Sanjiv 25 mg, 1 Memor ia 3-12 Cheondoism tab, l 09:47: Shant Route: PO, Herm shannan 00 Drug form: TAB, TID, Dosing Weight 69.091, kg, PRN Itching, Start date: 04/24/12 4:47:00, Duration: 30 day, Stop date: 05/24/12 4:46:00 Benadryl 2013-0 No Sanjiv 25 mg, 1 Memor ia 3-12 Cheondoism tab, l 09:47: Shant Route: PO, Herm shannan 00 Drug form: TAB, TID, Dosing Weight 69.091, kg, PRN Itching, Start date: 04/24/12 4:47:00, Duration: 30 day, Stop date: 05/24/12 4:46:00 02/14 NS 2012-0 No Taso 1,000 mL, Memori a 1,000 mL 3-11 Mougouris Rate: 50 l 00:46: ml/hr, [place] 00 Infuse over: 20 hr, Route: IV, kg, Total Volume: 1,000, Start date: 04/22/12 19:46:00, Duration: 30 day, Stop date: 05/22/12 19:45:00 02/14 NS 2012-0 No Taso 1,000 mL, Memori a 1,000 mL 3-11 Mougouris Rate: 50 l 00:46: ml/hr, [place] 00 Infuse over: 20 hr, Route: IV, kg, Total Volume: 1,000, Start date: 04/22/12 19:46:00, Duration: 30 day, Stop date: 05/22/12 19:45:00 2 NS 2012-0 No Taso 1,000 mL, Memori [...] 3-10 Terry 100 mL, l 15:00: Route: [place] IVPB, Drug form: INJ, Q2H, Start date: 04/22/12 10:00:00, Duration: 2 doses or times, Stop date: 04/22/12 12:00:00 potassium 2013-0 No Papo 20 mEq, M emoria chloride 3-10 Terry 100 mL, l 15:00: Route: Christopher 00 IVPB, Drug form: INJ, Q2H, Start date: 04/22/12 10:00:00, Duration: 2 doses or times, Stop date: 04/22/12 12:00:00 potassium 2012-0 No Papo 20 mEq, M emoria chloride 3-10 Terry 100 mL, l 15:00: Route: Christopher IVPB, Drug form: INJ, Q2H, Start date: 04/22/12 10:00:00, Duration: 2 doses or times, Stop date: 04/22/12 12:00:00 Geodon 2012-0 No Erasmo 10 mg, Memoria 3-10 Terminella Route: IM, l 06:52: Drug form: Christopher PDR/INJ, Q8H, PRN Anxiety, Start date: 04/22/12 [...] tab, l enteric 15:00: Marcin Route: PO, Deven murry Drug form: ECTAB, QAM, Start date: 04/21/12 [...] No Erasmo 20 mg, 1 Me moria -09 Terminella tab, l 15:00: Route: PO, [place] 00 Drug form: TAB, Daily, Dosing Weight [...] No Erasmo 20 mg, 1 Me moria 04-21 Terminella tab, l 15:00: Route: PO, [place] 00 Drug form: TAB, Daily, Dosing Weight 69.091, kg, Start date: 04/21/12 9:00:00, Duration: 30 day, Stop date: 05/20/12 9:00:00 niCARdipine 2012-0 No Erasmo IV, Start Memoria 04-20 Terminella date: l 23:35: 04/20/12 [place] 00 17:35:00, Duration: 30, 200 ml, 69.091 niCARdipine 2012-0 No Erasmo IV, Start Memoria 04-20 Terminella date: l 23:35: 04/20/12 Christopher 17:35:00, Duration: 30, 200 ml, 69.091 niCARdipine 2012-0 No Erasmo IV, Start Memoria 04-20 Terminella date: l 23:35: 04/20/12 [place] 17:35:00, Duration: 30, 200 ml, 69.091 Sodium 2012- No Renee 1,000 mL, Memor ia Chloride 04-20 Abousslema Rate: 70 l 0.9% IV 21:38: n ml/hr, [place] 1,000 mL 00 Infuse over: 14.3 hr, Route: IV, kg, Total Volume: 1,000, Start date: 04/20/12 15:38:00, Stop date: 05/20/12 15:37:00 Sodium 2013-0 No Renee 1,000 mL, Memor ia Chloride 3-08 Abousslema Rate: 70 l 0.9% IV 21:38: n ml/hr, Christopher 1,000 mL 00 Infuse over: 14.3 hr, Route: IV, kg, Total Volume: 1,000, Start date: 04/20/12 15:38:00, Stop date: 05/20/12 15:37:00 Sodium 2013-0 No Renee 1,000 mL, Memor ia Chloride 3-08 Abousslema Rate: 70 l 0.9% IV 21:38: n ml/hr, Christopher 1,000 mL 00 Infuse over: 14.3 hr, Route: IV, kg, Total Volume: 1,000, Start date: 04/20/12 15:38:00, Stop date: 05/20/12 15:37:00 Tylenol 2012-0 No Luis 650 mg, 1 Mem oria 3-08 Guru supp, l 21:36: Marcin Route: NEJackelyn nn Drug form: SUPP, Q4H, PRN Fever, Start date: 04/20/12 15:36:00, Duration: 30 day, Stop date: 05/20/12 15:35:00 Tylenol 2013-0 No Luis 650 mg, 1 Mem oria 3-08 Guru supp, l 21:36: Marcin Route: NE, Jackelyn nn Drug form: SUPP, Q4H, PRN Fever, Start date: 04/20/12 15:36:00, Duration: 30 day, Stop date: 05/20/12 15:35:00 Tylenol 2013-0 No Luis 650 mg, 1 Mem oria 3-08 Guru supp, l 21:36: Marcin Route: NE, Jackelyn nn Drug form: SUPP, Q4H, PRN Fever, Start date: 04/20/12 15:36:00, Duration: 30 day, Stop date: 05/20/12 15:35:00 Tylenol 2013-0 No Luis 650 mg, 2 Mem oria 3-08 Guru tab, l 21:35: Marcin Route: PO, Jackelyn nn 00 Drug form: TAB, Q4H, PRN Fever, Start date: 04/20/12 15:35:00, Duration: 30 day, Stop date: 05/20/12 15:34:00 Tylenol 2013-0 No Luis 650 mg, 2 Mem oria 3-08 Guru tab, l 21:35: Marcin Route: PO, Jackelyn nn 00 Drug form: TAB, Q4H, PRN Fever, Start date: 04/20/12 15:35:00, Duration: 30 day, Stop date: 05/20/12 15:34:00 Tylenol 2013-0 No Luis 650 mg, 2 Mem oria 3-08 Guru tab, l 21:35: Marcin Route: PO, Jackelyn nn 00 Drug form: TAB, Q4H, PRN Fever, Start date: 04/20/12 15:35:00, Duration: 30 day, Stop date: 05/20/12 15:34:00 Zofran 2013-0 No Luis 4 mg, 2 [...] 30 day, Stop date: 05/20/12 15:32:00 morphine 2013-0 No Papo 4 mg, 2 Me moria Sulfate 3-08 Terry mL, Route: l 21:27: IV, Drug [place] 00 form: INJ, Q2H, PRN Pain Score 7-10, Start date: 04/20/12 15:27:00, Duration: 30 day, Stop date: 05/20/12 15:26:00 morphine 2012-0 No Papo 4 mg, 2 Me moria Sulfate 3-08 Terry mL, Route: l 21:27: IV, Drug [place] 00 form: INJ, Q2H, PRN Pain Score 7-10, Start date: 04/20/12 15:27:00, Duration: 30 day, Stop date: 05/20/12 15:26:00 morphine 2012-0 No Papo 4 mg, 2 Me moria Sulfate 3-08 Terry mL, Route: l 21:27: IV, Drug Christopher 00 form: INJ, Q2H, PRN Pain Score 7-10, Start date: 04/20/12 15:27:00, Duration: 30 day, Stop date: 05/20/12 15:26:00 morphine 2012-0 No Luis 2 mg, 1 Wilfrid mendy Sulfate 3-08 Guru mL, Route: l 21:24: Marcin IV, Drug Christopher 00 form: INJ, Q2H, PRN Pain Score 6-10, Start date: 04/20/12 15:24:00, Duration: 30 day, Stop date: 05/20/12 15:23:00 acetaminoph 2012-0 No Luis 2 tab, Me moria en-hydrocod 3-08 Guru Route: PO, l one 325 21:24: Marcin Drug Form: He rmann mg-5 mg 00 TAB, Q4H, oral tablet PRN Pain Score 4-6, Start date: 04/20/12 15:24:00, Duration: 30 day, Stop date: 05/20/12 15:23:00 morphine 2012-0 No Luis 2 mg, 1 Wilfrid mendy Sulfate 3-08 Guru mL, Route: l 21:24: Marcin IV, Drug Christopher 00 form: INJ, Q2H, PRN Pain Score 6-10, Start date: 04/20/12 15:24:00, Duration: 30 day, Stop date: 05/20/12 15:23:00 acetaminoph 2012-0 No Luis 2 tab, Me moria en-hydrocod 3-08 Guru Route: PO, l one 325 21:24: Marcin Drug Form: He rmann mg-5 mg 00 TAB, Q4H, oral tablet PRN Pain Score 4-6, Start date: 04/20/12 15:24:00, Duration: 30 day, Stop date: 05/20/12 15:23:00 morphine 2012- No Luis 2 mg, 1 [...] 30 day, Stop date: 05/20/12 15:22:00 acetaminoph No Luis 1 tab, Me moria en-hydrocod 3-08 Guru Route: PO, l one 325 21:23: Marcin Drug Form: He rmann mg-5 mg 00 TAB, Q4H, oral tablet PRN Pain Score 1-3, Start date: 04/20/12 15:23:00, Duration: 30 day, Stop date: 05/20/12 15:22:00 acetaminoph No Luis 1 tab, Me moria en-hydrocod 3-08 Guru Route: PO, l one 325 21:23: Marcin Drug Form: He rmann mg-5 mg 00 TAB, Q4H, oral tablet PRN Pain Score 1-3, Start date: 04/20/12 15:23:00, Duration: 30 day, Stop date: 05/20/12 15:22:00 hydrALAZINE 2013-0 No Luis 10 mg, 0.5 Memoria 3-08 Guru mL, Route: l 21:19: Marcin IV, Drug [place] 00 form: INJ, Q6H, PRN Other -See Comment, Start date: 04/20/12 15:19:00, Duration: 30 day, Stop date: 05/20/12 15:18:00 hydrALAZINE 2013-0 No Luis 10 mg, 0.5 Memoria 3-08 Guru mL, Route: l 21:19: Marcin IV, Drug Christopher 00 form: INJ, Q6H, PRN Other -See Comment, Start date: 04/20/12 15:19:00, Duration: 30 day, Stop date: 05/20/12 15:18:00 hydrALAZINE 2013-0 No Luis 10 mg, 0.5 Memoria 3-08 [...] 3-08 Mougouris tab, l 15:00: Route: PO, [place] 00 Drug form: TAB, Daily, Dosing Weight 68.182, kg, Start date: 04/20/12 9:00:00, Duration: 30 day, Stop date: 05/19/12 9:00:00 losartan 2012-0 No Taso 100 mg, 2 Wilfrid mendy 3-08 Mougouris tab, l 15:00: Route: PO, [place] 00 Drug form: TAB, Daily, Dosing Weight 68.182, kg, Start date: 04/20/12 9:00:00, Duration: 30 day, Stop date: 05/19/12 9:00:00 losartan 2012-0 No Taso 100 mg, 2 Wilfrid mendy 3-08 Mougouris tab, l 15:00: Route: PO, [place] 00 Drug form: TAB, Daily, Dosing Weight [...] 3-08 Mougouris Route: l 0.005% 03:00: OPTH, Christpoher solution 00 Bedtime, Drug form: SOLN, Start [...] 3-08 Mougouris Route: l 0.005% 03:00: OPTH, [place] solution 00 Bedtime, Drug form: SOLN, Start [...] 30 day, Stop date: 05/19/12 18:17:00 nitroglycer 2013-0 No Papo 0.4 mg, 1 Memoria in [...] 30 day, Stop date: 05/19/12 18:17:00 nitroglycer 2012- No Papo 0.4 mg, 1 Memoria in 0.4 mg 3-07 Terry tab, l sublingual 23:18: Route: SL, H ermann tablet 00 Drug form: TAB, Q5Min, PRN Chest Pain, Start date: 04/19/12 17:18:00, Duration: 30 day, Stop date: 05/19/12 18:17:00 atropine 2012- No Papo 0.5 mg, 5 Memoria 3-07 Terry mL, Route: l 23:18: IVP, Drug [place] 00 form: INJ, PRN, PRN Bradycardi a, [...] vancomycin No Luis 1 gm, 200 Memoria 04-19 Guru mL, Route: l 23:00: Marcin IVPB, Drug Jackelyn nn 00 form: INJ, ONCALL, Start date: 04/19/12 17:00:00, Duration: 1 day, Stop date: 04/20/12 16:59:00 cefazolin + No Luis 1 gm, Mem oria Sodium 04-19 Guru Route: l Chloride 23:00: Marcin IVPB, Mckinley n 0.9% IV 100 00 ONCALL, mL Start date: 04/19/12 17:00:00, Duration: 1 day, Stop date: 04/20/12 16:59:00 Lopressor No Taso 75 mg, 3 Wilfrid mendy [...] 04/19/12 17:00:00, Stop date: 05/19/12 9:00:00 baclofen No Taso 10 mg, 1 Memor ia 3-07 Mougouris tab, l 23:00: Route: PO, [place] 00 Drug form: TAB, BID, Dosing Weight 68.182, kg, Start date: 04/19/12 17:00:00, Duration: 30 day, Stop date: 05/19/12 9:00:00 vancomycin No Luis 1 gm, 200 Memoria [...] 1 day, Stop date: 04/20/12 16:59:00 Lopressor No Taso 75 mg, 3 Wilfrid mendy 3-07 Mougouris tab, l 23:00: Route: PO, [place] 00 Drug form: TAB, BID, Dosing Weight 68.182, kg, Start date: 04/19/12 17:00:00, Stop date: 05/19/12 9:00:00 timolol 2012- No Taso 1 drp, Memoria ophthalmic 3-07 Mougouris Route: l 0.5% 23:00: BOTH EYES, Christopher solution 00 QPM, Drug form: SOLN, Start date: 04/19/12 17:00:00, Stop date: 05/18/12 17:00:00 brimonidine 2012- No Taso 1 drp, Wilfrid mnedy ophthalmic 3-07 Mougouris Route: l 0.15% 23:00: OPTH, BID, Mckinley n solution 00 Drug form: SOLN, Start date: 04/19/12 17:00:00, Stop date: 05/19/12 9:00:00 baclofen 2012-0 No Taso 10 mg, 1 Memor ia 3-07 Mougouris tab, l 23:00: Route: PO, [place] 00 Drug form: TAB, BID, Dosing Weight [...] 3-07 Mougouris tab, l 23:00: Route: PO, [place] 00 Drug form: TAB, BID, Dosing Weight 68.182, kg, Start date: 04/19/12 17:00:00, Stop date: 05/19/12 9:00:00 timolol 2012-0 No Taso 1 drp, Memoria ophthalmic 3-07 Mougouris Route: l 0.5% 23:00: BOTH EYES, [place] solution 00 QPM, Drug form: SOLN, Start [...] Mougouris mL, Route: l 18:50: INJ, Drug [place] 00 form: INJ, Q6H, Dosing Weight 68.182, [...] 3-07 Mougouris tab, l 18:50: Route: PO, Drug form: TAB, Q8H, Dosing Weight [...] 30 day, Stop date: 05/19/12 12:49:00 clonidine 2013-0 No Taso 0.1 mg, 1 Mem oria 3-07 Mougouris tab, l 18:50: Route: PO, Christopher 00 Drug form: TAB, Q8H, Dosing Weight 68.182, kg, PRN Hypertensi on, Start date: 04/19/12 12:50:00, Duration: 30 day, Stop date: 05/19/12 12:49:00 Dextrose 2012-0 No Taso 25 gm, 50 Wilfrid mendy 50% Syringe 3-07 Mougouris mL, Route: l 18:49: IVP, Drug Christopher 00 Form: INJ, Dosing Weight 68.182, kg, PRN, PRN Blood Glucose Results, Start date: 04/19/12 12:49:00, Duration: 30 day, Stop date: 05/19/12 13:48:00 glucagon 2013-0 No Taso 1 mg, Memoria 3-07 Mougouris Route: IM, l 18:49: Drug form: [place] 00 PDR/INJ, PRN, Dosing Weight 68.182, kg, PRN Blood Glucose Results, Start date: 04/19/12 12:49:00, Duration: 30 day, Stop date: 05/19/12 13:48:00 insulin 2013-0 No Taso 1 unit, Memoria aspart 3-07 Mougouris 0.01 mL, l 18:49: Route: [place] 00 SUB-Q, Drug form: SOLN, TID-Before Meals, Dosing Weight 68.182, kg, PRN Blood Glucose Results, Start date: 04/19/12 12:49:00, Duration: 30 day, Stop date: 05/19/12 12:48:00 Dextrose 2012-0 No Taso 25 gm, 50 Wilfrid mendy 50% Syringe 3-07 Mougouris mL, Route: l 18:49: IVP, Drug Christopher 00 Form: INJ, Dosing Weight 68.182, kg, PRN, PRN Blood Glucose Results, Start date: 04/19/12 12:49:00, Duration: 30 day, Stop date: 05/19/12 13:48:00 glucagon 2013-0 No Taso 1 mg, Memoria 3-07 Mougouris Route: IM, l 18:49: Drug form: [place] 00 PDR/INJ, PRN, Dosing Weight 68.182, kg, PRN Blood Glucose Results, Start date: 04/19/12 12:49:00, Duration: 30 day, Stop date: 05/19/12 13:48:00 insulin 2013-0 No Taso 1 unit, Memoria aspart 3-07 [...] 3-07 Mougouris 0.01 mL, l 18:49: Route: SUB-Q, Drug form: SOLN, TID-Before Meals, [...] Symbicort 2012-0 No Taso 2 Memoria 160/4.5 3- Mougouris inhalation l inhalation 18:47: , Route: [...] 04/19/12 12:25:00, Stop date: 04/19/12 12:25:00 hydrALAZINE 0 No Luis 20 mg, 1 Memoria 04-19 Guru mL, Route: l 12:07: Marcin IV, Drug Christopher 00 form: INJ, Q6H, Dosing Weight 68.182, kg, PRN Elevated BP, Start date: 04/19/12 6:07:00, Duration: 30 day, Stop date: 05/19/12 6:06:00, SBP >165 hydrALAZINE 2013-0 No Luis 20 mg, 1 Memoria 3-07 Guru mL, Route: l 12:07: Marcin IV, Drug Christopher 00 form: INJ, Q6H, Dosing Weight 68.182, kg, PRN Elevated BP, Start date: 04/19/12 6:07:00, Duration: 30 day, Stop date: 05/19/12 6:06:00, SBP >165 hydrALAZINE 2012- No Luis 20 mg, 1 Memoria 3-07 Guru mL, Route: l 12:07: Marcin IV, Drug Christopher 00 form: INJ, Q6H, Dosing Weight 68.182, kg, PRN Elevated BP, Start date: 04/19/12 6:07:00, Duration: 30 day, Stop date: 05/19/12 6:06:00, SBP >165 brimonidine 2012- Yes Taso 1 drp, Wilfrid mendy ophthalmic 3-07 Mougouris OPTH, BID, l 0.15% 08:51: 5 ml, [place] solution 03 Substitute Allowed, SOLN brimonidine Yes Taso 1 drp, Wilfrid mendy ophthalmic 3-07 Mougouris OPTH, BID, l 0.15% 08:51: 5 ml, [place] solution 03 Substitute Allowed, SOLN brimonidine 2012- [...] solution 00 ml, Substitute Allowed, SOLN timolol 2012-0 Yes Taso 1 drp, Memoria ophthalmic 3-07 [...] Yes Taso 2 puff, Memor ia 160/4.5 -07 Mougouris INHALATION l inhalation 08:47: , PRN, [...] tab, PO, l mg oral 08:44: BID, [place] tablet 00 Substituti on Allowed Metoprolol No Taso 50 mg, 1 Mem oria Tartrate 50 3-07 Mougouris tab, PO, l mg oral 08:44: BID, Christopher tablet 00 Substituti on Allowed glyBURIDE-m Yes 2 tab, PO, Memoria etformin 5 3-07 BID, 60 l mg-500 mg 08:42: tab, [place] oral tablet 12 Substituti on Allowed, Maintenanc e, TAB glyBURIDE-m Yes 2 tab, PO, Memoria etformin 5 3-07 BID, 60 l mg-500 mg 08:42: tab, [place] oral tablet 12 Substituti on Allowed, Maintenanc e, TAB glyBURIDE-m Yes 2 tab, PO, Memoria etformin 5 3-07 BID, 60 l mg-500 mg 08:42: tab, [place] oral tablet 12 Substituti on Allowed, Maintenanc e, TAB baclofen Yes Taso 10 mg, PO, Mem oria 3-07 Mougouris BID, l 08:38: Substituti on Allowed baclofen Yes Taso 10 mg, PO, Mem oria 3-07 [place]ougouris BID, l 08:38: Substituti on Allowed baclofen Yes Taso 10 mg, PO, Mem oria 3-07 [place]ouris BID, l 08:38: Substituti on Allowed Saline No Papo 5 ml, Memori a Flush 0.9% 04-19 [facility] Route: l 06:44: IVP, Drug Form: INJ, Dosing Weight 68.182, kg, PRN, PRN Line Flush, Start date: 04/19/12 0:44:00, Duration: 30 day, Stop date: 05/19/12 1:43:00 acetaminoph 2012-0 No Papo 650 mg, 2 Memoria en 3-07 Terry tab, l 06:44: Route: PO, Christopher [...] 30 day, Stop date: 05/19/12 0:43:00 Saline 2012-0 No Papo 5 ml, Memori a Flush 0.9% 04-19 [facility] Route: l 06:44: IVP, Drug Form: INJ, Dosing Weight 68.182, kg, PRN, PRN Line Flush, Start date: 04/19/12 0:44:00, Duration: 30 day, Stop date: 05/19/12 1:43:00 acetaminoph 2012-0 No Papo 650 mg, 2 Memoria en 3-07 Terry tab, l 06:44: Route: PO, [place] 00 Drug form: TAB, Q4H, Dosing Weight [...] No Luis 1,000 mL, Wilfrid mendy Chloride 3-07 Guru Rate: 40 l 0.9% IV 06:44: Marcin ml/hr, Mckinley n 1,000 mL 00 Infuse over: 25 hr, Route: IV, kg, Total Volume: 1,000, Start date: 04/19/12 0:44:00, Duration: 30 day, Stop date: 05/19/12 0:43:00 Saline 2012-0 No Papo 5 ml, Memori a Flush 0.9% 3-07 Terry Route: l 06:44: IVP, Drug Form: INJ, Dosing Weight 68.182, kg, PRN, PRN Line Flush, Start date: 04/19/12 0:44:00, Duration: 30 day, Stop date: 05/19/12 1:43:00 acetaminoph 2012- No Papo 650 mg, 2 Memoria en 3-07 Terry tab, l 06:44: Route: PO, [place] 00 Drug form: TAB, Q4H, Dosing Weight [...] No Luis 1,000 mL, Wilfrid mendy Chloride 3-07 Guru Rate: 40 l 0.9% IV 06:44: Marcin ml/hr, Mckinley n 1,000 mL 00 Infuse over: 25 hr, Route: IV, kg, Total Volume: 1,000, Start date: 04/19/12 0:44:00, Duration: 30 day, Stop date: 05/19/12 0:43:00 Benadryl 2013-0 No George 50 mg, Wilfrid mendy 3-07 [facility] Route: l 03:13: IVP, ONCE, Christopher Dosing Weight 68.182, kg, Priority: STAT, Start date: 04/18/12 21:13:00, Stop date: 04/18/12 21:13:00 Benadryl 2013-0 No George 50 mg, Wilfrid mendy 3-07 Mac Route: l 03:13: IVP, ONCE, Christopher 00 Dosing Weight 68.182, kg, Priority: STAT, Start date: 04/18/12 21:13:00, Stop date: 04/18/12 21:13:00 Benadryl 2013-0 No George 50 mg, Wilfrid mendy 3-07 [facility] Route: l 03:13: IVP, ONCE, Christopher 00 Dosing Weight 68.182, kg, Priority: STAT, Start date: 04/18/12 21:13:00, Stop date: 04/18/12 21:13:00 SoluMedrol 2013-0 No George 125 mg, M emoria 3-07 [facility] Route: l 03:12: IVP, ONCE, [place] Dosing Weight 68.182, kg, Priority: STAT, Start date: 04/18/12 21:12:00, Stop date: 04/18/12 21:12:00 SoluMedrol 2013-0 No George 125 mg, M emoria 3-07 Mac Route: l 03:12: IVP, ONCE, [place] Dosing Weight 68.182, kg, Priority: STAT, Start date: 04/18/12 21:12:00, Stop date: 04/18/12 21:12:00 SoluMedrol 2013-0 No George 125 mg, M emoria 3-07 Mac Route: l 03:12: IVP, ONCE, Christopher Dosing Weight 68.182, kg, Priority: STAT, Start date: 04/18/12 21:12:00, Stop date: 04/18/12 21:12:00 Saline 2013-0 No Papo 5 mL, Memori a Flush 0.9% 04-19 Terry Route: l 03:05: IVP, Drug [place] Form: INJ, Dosing Weight 68.182, kg, Q8H, PRN Line Flush, Start date: 04/18/12 21:05:00, Duration: 30 day, Stop date: 05/18/12 21:04:00, Administer at least once every 8 hoursAdmin ister at least once every 8 hours Saline No Papo 5 mL, Memori a Flush 0.9% 04-19 Terry Route: l 03:05: IVP, Drug [place] Form: INJ, Dosing Weight 68.182, kg, Q8H, PRN Line Flush, Start date: 04/18/12 21:05:00, Duration: 30 day, Stop date: 05/18/12 21:04:00, Administer at least once every 8 hoursAdmin ister at least once every 8 hours Saline No Papo 5 mL, Memori a Flush 0.9% 04-19osh Route: l 03:05: IVP, Drug [facility] Form: INJ, Dosing Weight 68.182, kg, Q8H, PRN Line Flush, Start date: 04/18/12 21:05:00, Duration: 30 day, Stop date: 05/18/12 21:04:00, Administer at least once every 8 hoursAdmin ister at least once every 8 hours Klor-Con Klor-Con Yes Na Tripp 1 tablet Common M10 M10 with food [facility] Benzonatate Benzonatate Yes Na Tripp 1 capsule Common as needed [facility] Plavix Plavix Yes Na Tripp 1 tablet Comm on [facility] Metoprolol Metoprolol Yes Na Tripp 1 tablet Common Tart[facility] Pant[facility] Pantoprazol Yes Na Tripp 1 tablet Common e Sodium e Sodium [facility] Aspir-81 Aspir-81 Yes Na Tripp 1 tablet Common [facility] Alendronate Alendronate Yes Na Tripp 1 tablet Common Sodium Sodium [facility] Cetirizine Cetirizine Yes Na Tripp TAKE ONE Common HCl HCl TABLET BY Spirit MOUTH ONCE - CHI DAILY [facility] Citalopram Citalopram Yes Na Tripp take one Common Hydrobromid Hydrobromid tablet by Spirit e e mouth once - CHI daily [facility] Hyalok Vargas Yes Na Tripp 1 tablet Comm on Spirit CHI [facility] Atorvastati Atorvastati Yes Na Tripp 1 tablet Common n Calcium n Calcium at bedtime Spirit - CHI [facility] Ketoconazol Ketoconazol Yes Na Tripp 1 Common e e applicatio Spirit n to - CHI affected [facility] Triamcinolo Triamcinolo Yes Na Tripp 1 Common ne ne applicatio Spirit Acetonide Acetonide n to - CHI affected [facility] Metformin Metformin Yes Na Tripp 1 tablet Common HCl HCl with a Spirit meal [facility] Pentoxifyll Pentoxifyll Yes Na Tripp 1 tablet Common ine ER ine ER with meals Spiri t - CHI [facility] Potassium Potassium Yes Na Tripp TAKE ONE Common Chloride Chloride TABLET BY Sp sherly [facility] MOUTH - CHI TWICE [facility] GlipiZIDE GlipiZIDE Yes Na Tripp 1 tablet Common [facility] Hydrochloro Hydrochloro Yes Na Tripp TAKE 1 Common thiazide thiazide TABLET BY Sp sherly MOUTH ONCE - CHI DAILY [facility] Cetirizine Cetirizine No Cetirizine HCl 10 [...] No TID Benzonatat 200 MG 200 MG 02 e 200 MG 00:00 :00 Benzonatate Benzonatate 2021- No TID Benzonatat 200 MG 200 MG 03-25 e 200 MG 00:00 :00 Immunizations Ordered Immunization Filled Immunization Date Status Commen ts Source Name Name Pneumococcal 2017-04-02 Completed [facility] Conjugate 13-Valent 00:00:00 [facility] kim Pneumococcal 2017-04-02 Completed [facility] Conjugate 13-Valent 00:00:00 [facility] kim Pneumococcal 2017-04-02 Completed [facility] Conjugate 13-Valent 00:00:00 [facility] kim Pneumococcal 2017-04-02 Completed [facility] Conjugate 13-Valent 00:00:00 [facility] kim pneumococcal 2016-06-09 Completed [facility] nagel 13-valent vaccine 17:59:00 pneumococcal 2016-06-09 Completed [facility] nagel 13-valent vaccine 17:59:00 pneumococcal 2016-06-09 Completed [facility] nagel 13-valent vaccine 17:59:00 influenza virus 2012-01-15 Completed [facility] vaccine, inactivated 05:53:00 influenza virus 2012-01-15 Completed [facility] vaccine, inactivated 05:53:00 influenza virus 2012-01-15 Completed [facility] vaccine, inactivated 05:53:00 influenza virus 2012-01-15 Completed [facility] [place] vaccine, inactivated 05:53:00 influenza virus 2012-01-15 Completed [facility] vaccine, inactivated 05:53:00 influenza virus 2012-01-15 Completed [facility] [place] vaccine, inactivated 05:53:00 Hx pneumococcal 2011-10-16 Completed [facility] [place] vaccine 04:52:00 Hx pneumococcal 2011-10-16 Completed [facility] [place] vaccine 04:52:00 Hx pneumococcal 2011-10-16 Completed [facility] vaccine 04:52:00 Hx pneumococcal 2011-10-16 Completed [facility] [place] vaccine 04:52:00 Hx pneumococcal 2011-10-16 Completed [facility] [place] vaccine 04:52:00 Hx pneumococcal 2011-10-16 Completed [facility] vaccine 04:52:00 Vital Signs Vital Name Observation Time Observation Value Comments Source height 2022-01-13 13:00:00 60 [in_i] Common [facility] weight 2022-01-13 13:00:00 135.8 [lb_av] [facility] temperature 2022-01-13 13:00:00 97.1 [degF] Common [facility] bmi 2022-01-13 13:00:00 26.52 kg/m2 Common S [facility] oximetry 2022-01-13 13:00:00 95 % [facility] respiratory rate 2022-01-13 13:00:00 16 /min Comm on [facility] blood pressure 2022-01-13 13:00:00 132 mm[Hg] [facility] - systolic [facility] blood pressure 2022-01-13 13:00:00 60 mm[Hg] Common [facility] - diastolic [facility] height 2021-12-14 14:00:00 60 [in_i] [facility] weight 2021-12-14 14:00:00 137.0 [lb_av] [facility] temperature 2021-12-14 14:00:00 97.2 [degF] [facility] bmi 2021-12-14 14:00:00 26.75 kg/m2 [facility] oximetry 2021-12-14 14:00:00 95 % [facility] S [facility] respiratory rate 2021-12-14 14:00:00 18 /min Comm on [facility] blood pressure 2021-12-14 14:00:00 136 mm[Hg] Common [facility] - systolic [facility] blood pressure 2021-12-14 14:00:00 88 mm[Hg] Common [facility] - diastolic [facility] height 2021-10-12 11:00:00 60 [in_i] [facility] weight 2021-10-12 11:00:00 136.6 [lb_av] Common [facility] temperature 2021-10-12 11:00:00 97.4 [degF] Common S pirit [facility] bmi 2021-10-12 11:00:00 26.67 kg/m2 Common S [facility] oximetry 2021-10-12 11:00:00 95 % [facility] 2021-10-12 11:00:00 18 /min Comm on [facility] blood pressure 2021-10-12 11:00:00 136 mm[Hg] Common [facility] - systolic [facility] blood pressure 2021-10-12 11:00:00 74 mm[Hg] Common [facility] - diastolic [facility] height 2021-07-13 14:20:00 60 [in_i] Common [facility] weight 2021-07-13 14:20:00 136 [lb_av] Common [facility] temperature 2021-07-13 14:20:00 97.3 [degF] Common [facility] bmi 2021-07-13 14:20:00 26.56 kg/m2 [facility] S [facility] oximetry 2021-07-13 14:20:00 96 % [facility] respiratory rate 2021-07-13 14:20:00 17 /min Comm on [facility] blood pressure 2021-07-13 14:20:00 130 mm[Hg] Common [facility] - systolic [facility] blood pressure 2021-07-13 14:20:00 80 mm[Hg] Common [facility] - diastolic [facility] height 2021-05-14 11:20:00 60 [in_i] Common S [facility] weight 2021-05-14 11:20:00 143 [lb_av] [facility] bmi 2021-05-14 11:20:00 27.92 kg/m2 Common S pirit [facility] oximetry 2021-05-14 11:20:00 94 % Common [facility] height 2021-04-08 13:00:00 60 [in_i] Common [facility] weight 2021-04-08 13:00:00 145.0 [lb_av] Common [facility] - [facility] temperature 2021-04-08 13:00:00 96.4 [degF] Common [facility] bmi 2021-04-08 13:00:00 28.32 kg/m2 [facility] oximetry 2021-04-08 13:00:00 98 % [facility] respiratory rate 2021-04-08 13:00:00 16 /min Comm [facility] blood pressure 2021-04-08 13:00:00 132 mm[Hg] Common [facility] - systolic [facility] blood pressure 2021-04-08 13:00:00 63 mm[Hg] Common [facility] - diastolic [facility] height 2020-11-13 12:00:00 60 [in_i] [facility] weight 2020-11-13 12:00:00 140 [lb_av] [facility] bmi 2020-11-13 12:00:00 27.34 kg/m2 [facility] Systolic (mm Hg) 2021-02-26 17:29:00 Wilfrid rial [place] Diastolic (mm Hg) 2021-02-26 17:29:00 Mem orial [place] Heart Rate 2021-02-26 17:29:00 [facility] 2021-02-26 17:29:00 Memori al [facility] Height 2021-02-26 17:29:00 147.32 cm [facility] [place] Weight 2021-02-26 17:29:00 [facility] BMI Calculated 2021-02-26 17:29:00 Memori al [facility] Systolic (mm Hg) 2021-01-22 17:15:00 Wilfrid rial [facility] Diastolic (mm Hg) 2021-01-22 17:15:00 Mem orial [facility] Heart Rate 2021-01-22 17:15:00 [facility] [place] Respitory Rate 2021-01-22 17:15:00 Memori al [place] Height 2021-01-22 17:15:00 149.86 cm [facility] [place] Weight 2021-01-22 17:15:00 [facility] [place] BMI Calculated 2021-01-22 17:15:00 Memori [facility] Heart Rate 2016-06-14 16:00:00 [facility] [place] Respitory Rate 2016-06-14 16:00:00 [facility] Temperature Oral (F) 2016-06-14 16:00:00 98.4 F [facility] Systolic (mm Hg) 2016-06-14 16:00:00 Wilfrid rial [place] Diastolic (mm Hg) 2016-06-14 16:00:00 Mem orial [place] Systolic (mm Hg) 2016-06-14 12:00:00 Wilfrid rial [place] Diastolic (mm Hg) 2016-06-14 12:00:00 Mem orial [place] Respitory Rate 2016-06-14 12:00:00 Memori al [place] Heart Rate 2016-06-14 12:00:00 [facility] [place] Temperature Oral (F) 2016-06-14 12:00:00 98.8 F [facility] Systolic (mm Hg) 2016-06-14 07:48:00 Wilfrid rial [place] Diastolic (mm Hg) 2016-06-14 07:48:00 Mem orial [place] Respitory Rate 2016-06-14 07:48:00 Memori al [facility] Heart Rate 2016-06-14 07:48:00 [facility] Temperature Oral (F) 2016-06-14 07:48:00 98.2 F [facility] Height 2016-06-08 11:57:00 152.4 cm [facility] Weight 2016-06-08 11:57:00 [facility] BMI Calculated 2016-06-08 11:57:00 Memori al [facility] Respitory Rate 2016-06-03 23:00:00 Memori al [place] Systolic (mm Hg) 2016-06-03 23:00:00 Wilfrid rial [facility] Diastolic (mm Hg) 2016-06-03 23:00:00 Mem orial [facility] Systolic (mm Hg) 2016-06-03 22:00:00 Wilfrid rial [place] Diastolic (mm Hg) 2016-06-03 22:00:00 Mem orial [facility] Systolic (mm Hg) 2016-06-03 21:30:00 Wilfrid rial [facility] Diastolic (mm Hg) 2016-06-03 21:30:00 Mem orial [place] Respitory Rate 2016-06-03 18:00:00 Memori al [facility] Respitory Rate 2016-06-03 17:45:00 Memori al [facility] Temperature Oral (F) 2016-05-26 13:36:00 98.4 F [facility] Heart Rate 2016-05-26 13:36:00 [facility] Weight 2016-05-26 13:27:00 [facility] BMI Calculated 2016-05-26 13:27:00 Memori al [place] Height 2016-05-26 13:27:00 152.4 cm [facility] [place] Systolic (mm Hg) 2012-04-26 19:50:00 Wilfrid rial [place] Diastolic (mm Hg) 2012-04-26 19:50:00 Mem orial [place] Systolic (mm Hg) 2012-04-26 17:15:00 Wilfrid rial [facility] Diastolic (mm Hg) 2012-04-26 17:15:00 Mem orial [facility] Temperature Oral (F) 2012-04-26 17:00:00 97.1 F [facility] [place] Diastolic (mm Hg) 2012-04-26 17:00:00 Mem orial [place] Systolic (mm Hg) 2012-04-26 17:00:00 Wilfrid rial [facility] Respitory Rate 2012-04-26 17:00:00 Memori al [facility] Heart Rate 2012-04-26 17:00:00 [facility] [place] Respitory Rate 2012-04-26 13:00:00 Memori al [place] Heart Rate 2012-04-26 13:00:00 [facility] [place] Temperature Oral (F) 2012-04-26 13:00:00 97.9 F [facility] Respitory Rate 2012-04-26 09:16:00 Memori al [facility] Heart Rate 2012-04-26 09:16:00 [facility] Temperature Oral (F) 2012-04-26 09:16:00 98.3 F [facility] Weight 2012-04-20 05:54:00 [facility] Height 2012-04-19 01:59:00 152.4 cm [facility] Weight 2012-04-19 01:59:00 [facility] Procedures Procedure Date / Time Performed Performing Clinician Anurag pendleton Placement of stent in [facility] cardiac conduit CEA - Carotid [facility] endarterectomy [facility]ent [facility]<sup>1</sup> [facility] Plan of Care Planned Activity Planned Date Details Comments Source Future Scheduled 2022-03-24 COVID-19 VACCINE (#1) [facility] Hospital Test 14:10:25 [code = COVID-19 VACCINE (#1)] Future Scheduled 2022-03-24 SHINGLES VACCINES (1 [facility] Test 14:10:25 of 2) [code = SHINGLES VACCINES (1 of 2)] Future Scheduled 2022-03-24 65+ [facility]:10:25 VACCINE (2 - PPSV23 if available, else PCV20) [code = 65+ PNEUMOCOCCAL VACCINE (2 - PPSV23 if available, else PCV20)] Future Scheduled 2022-03-24 INFLUENZA VACCINE [facility] Test 14:10:25 [code = INFLUENZA VACCINE] Future Scheduled 2022-03-24 COVID-19 VACCINE (#1) [facility] Hospital Test 14:10:25 [code = COVID-19 VACCINE (#1)] Future Scheduled 2022-03-24 SHINGLES VACCINES (1 [facility] Test 14:10:25 of 2) [code = SHINGLES VACCINES (1 of 2)] Future Scheduled 2022-03-24 65+ [facility]OCOCCAL [facility] Test 14:10:25 VACCINE (2 - PPSV23 if available, else PCV20) [code = 65+ PNEUMOCOCCAL VACCINE (2 - PPSV23 if available, else PCV20)] Future Scheduled 2022-03-24 INFLUENZA VACCINE [facility] Test 14:10:25 [code = INFLUENZA VACCINE] Future Scheduled 2022-01-28 COVID-19 VACCINE (#1) [facility] Test 04:00:32 [code = COVID-19 VACCINE (#1)] Future Scheduled 2022-01-28 SHINGLES VACCINES (1 [facility] Hospital Test 04:00:32 of 2) [code = SHINGLES VACCINES (1 of 2)] Future Scheduled 2022-01-28 65+ [facility] Test 04:00:32 VACCINE (2 - PPSV23 if available, else PCV20) [code = 65+ PNEUMOCOCCAL VACCINE (2 - PPSV23 if available, else PCV20)] Future Scheduled 2022-01-28 INFLUENZA VACCINE [facility] Hospital Test 04:00:32 [code = INFLUENZA VACCINE] Future Scheduled COVID-19 VACCINE (1) [facility] Test [code = COVID-19 VACCINE (1)] Future Scheduled SHINGLES VACCINES (#1) [facility] Test [code = SHINGLES VACCINES (#1)] Future Scheduled 65+ PNEUMOCOCCAL [facility] Test VACCINE (2 of 2 - PPSV23) [code = 65+ PNEUMOCOCCAL VACCINE (2 of 2 - PPSV23)] Future Scheduled INFLUENZA VACCINE [facility] Test [code = INFLUENZA VACCINE] Encounters Start End Encounter Admission Attending Care Care Encounter Source Date/Time Date/Time Type Type Clinicians Facility Department ID 2022-03-25 Preadmit nullFlavo [id number] Memoria 15:58:43 r [facility] 2022-03-21 Outpatient Lois, STLMLC STLC [id number] Common 13:59:00 Mari [id number] [facility] 2022-03-15 Outpatient Lois, STLMLC STLC [id number] Common 11:08:01 Mari [id number] [facility] 2022-03-12 Preadmit nullFlavo [id number] Memoria 11:54:50 r [place] 2022-01-13 Outpatient Tripp, Na STLMLC STLC [id number] 2 Common 07:29:00 [facility] 2022-01-12 Outpatient Tripp, Na STLC STLC [id number] 2 Common 11:23:00 [facility] 2021-10-12 Outpatient Tripp, Na STLC STLC [id number] 2 Common 10:47:00 [facility] 2021-10-08 Outpatient Tripp, Na STLC STLC [id number] 2 Common 08:48:00 [facility] 2021-08-31 Outpatient Tripp, Na STLMLC STLMLC [id number] 2 Common 12:15:00 [facility] 2021-07-08 Outpatient Tripp, Na STLMLC STLMLC [id number] 2 Common 11:27:00 [facility] 2021-05-14 Outpatient Tripp, Na STLMLC STLMLC [id number] 2 Common 11:14:01 [facility] 2021-05-13 Outpatient Tripp, Na STLMLC STLMLC [id number] 2 Common 14:39:01 [facility] 2021-03-15 Outpatient Tripp, Na STLMLC STLMLC [id number] 2 Common 15:34:00 [facility] 2021-03-10 Outpatient Tripp, Na STLMLC STLMLC [id number] 2 Common 14:17:28 [id number] [facility] 2021-03-10 Outpatient Tripp, Na STLMLC STLMLC [id number] 2 Common 13:55:49 [facility] 2021-03-10 Outpatient Tripp, Na STLMLC STLMLC [id number] 2 Common 12:47:02 [facility] 2021-03-10 Outpatient Tripp, Na STLMLC STLMLC [id number] 2 Common 12:35:11 [id number] [facility] 2021-03-10 Outpatient Tripp, Na STLMLC STLMLC [id number] 2 Common 12:34:42 [facility] 2021-03-10 Outpatient Tripp, Na STLMLC STLMLC [id number] 2 Common 12:22:40 [id number] [facility] 2021-03-10 Outpatient Tripp, Na STLMLC STLMLC [id number] 2 Common 12:22:00 [id number] [facility] 2021-03-10 Outpatient Tripp, Na STLMLC STLMLC [id number] 2 Common 12:19:24 [id number] [facility] 2021-03-10 Outpatient Tripp, Na STLMLC STLMLC [id number] 2 Common 11:48:00 [id number] [facility] 2021-03-10 Outpatient Tripp, Na STLMLC STLMLC [id number] 2 Common 11:18:51 [id number] [facility] 2021-03-10 Outpatient Tripp, Na STLMLC STLMLC [id number] 2 Common 11:18:34 [id number] [facility] 2021-03-10 Outpatient Tripp, Na STLMLC STLMLC [id number] 2 Common 11:16:12 [id number] [facility] 2021-03-10 Outpatient Tripp, Na STLMLC STLMLC [id number] 2 Common 11:09:52 [id number] [facility] 2021-03-10 Outpatient Tripp, Na STLMLC STLMLC [id number] 2 Common 11:09:27 [id number] [facility] 2021-03-10 Outpatient Tripp, Na STLMLC STLMLC [id number] 2 Common 11:08:21 [id number] [facility] 2021-03-10 Outpatient Tripp, Na STLMLC STLMLC [id number] 2 Common 11:03:44 [id number] [facility] 2021-03-10 Outpatient Tripp, Na STLMLC STLMLC [id number] 2 Common 11:02:04 [id number] [facility] 2021-03-10 Outpatient Tripp, Na STLMLC STLMLC [id number] 2 Common 11:01:47 [id number] [facility] 2022-03-15 2022-03-15 (TEL) STLMLC STLMLC [id number] Co mmon 00:00:00 00:00:00 [facility] 2022-03-15 2022-03-15 (TEL) STLMLC STLMLC [id number] Co mmon 00:00:00 00:00:00 [facility] 2022-02-11 2022-02-11 (TEL) STLMLC STLMLC [id number] Co mmon 00:00:00 00:00:00 [facility] 2022-02-01 2022-02-01 (TEL) STLMLC STLMLC [id number] Co mmon 00:00:00 00:00:00 [facility] 2022-01-31 2022-01-31 (TEL) STLMLC STLMLC [id number] Co mmon 00:00:00 00:00:00 [facility] 2022-01-13 2022-01-13 OFFICE STLMLC STLMLC [id number] Co mmon 00:00:00 00:00:00 VISIT [facility] PT - CHI LEVEL 4 [facility] 2021-12-15 2021-12-15 (TEL) STLMLC STLMLC [id number] Co mmon 00:00:00 00:00:00 [facility] 2021-12-14 2021-12-14 OFFICE STLMLC STLMLC [id number] Co mmon 00:00:00 00:00:00 VISIT EST Spir it PT LEVEL 3 [facility] 2021-12-10 2021-12-10 (TEL) STLMLC STLMLC [id number] Co mmon 00:00:00 00:00:00 [facility] 2021-11-08 2021-11-08 (TEL) STLMLC STLMLC [id number] Co mmon 00:00:00 00:00:00 [facility] 2021-10-14 2021-10-14 (TEL) STLMLC STLMLC [id number] Co mmon 00:00:00 00:00:00 [facility] 2021-10-12 2021-10-12 OFFICE STLMLC STLMLC [id number] Co mmon 00:00:00 00:00:00 VISIT [facility] PT - CHI LEVEL 4 [facility] 2021-09-29 2021-09-29 (TEL) STLMLC STLMLC [id number] Co mmon 00:00:00 00:00:00 [facility] 2021-08-06 2021-08-06 (TEL) STLMLC STLMLC [id number] Co mmon 00:00:00 00:00:00 [facility] 2021-07-30 2021-07-30 (TEL) STLMLC STLMLC [id number] Co mmon 00:00:00 00:00:00 [facility] 2021-07-13 2021-07-13 OFFICE STLMLC STLMLC [id number] Co mmon 00:00:00 00:00:00 VISIT [facility] ESTAB PT - CHI LEVEL 4 [facility] 2021-05-14 2021-05-14 OFFICE STLMLC STLMLC [id number] Co mmon 00:00:00 00:00:00 VISIT EST Spir it PT LEVEL 3 [facility] 2021-05-13 2021-05-13 (TEL) STLMLC STLMLC [id number] Co mmon 00:00:00 00:00:00 [facility] 2021-04-27 2021-04-27 Ambulatory nullFlavo MNA [id number] Memoria 16:30:00 16:30:00 Pre-Reg r Neurology 02 l [facility] [place] 2021-04-27 2021-04-27 Ambulatory nullFlavo MNA [id number] Mem[facility] 16:30:00 16:30:00 Pre-Reg r Neurology 02 l Mathew Leosann 2021-04-27 2021-04-27 Outpatient MHIE MHIE [id number] Memoria 11:30:00 11:30:00 Lisa Leosann 2021-04-27 2021-04-27 Outpatient PRAVEEN JoseMISCHER MISCHER [id number] 11:30:00 11:30:00 Giuseppe Lisa Ochoa 2021-04-09 2021-04-09 (TEL) STLMLC STLMLC [id number] Co mmon 00:00:00 00:00:00 [facility] 2021-04-08 2021-04-08 OFFICE STLMLC STLMLC [id number] Co mmon 00:00:00 00:00:00 VISIT [facility] PT - CHI LEVEL 4 [facility] 2021-03-04 2021-03-04 (TEL) STLMLC STLMLC [id number] Co mmon 00:00:00 00:00:00 [facility] 2021-02-26 2021-02-27 Outpatient nullFlavo MNA [id number] Memoria 17:30:00 05:59:59 r Neurology 01 l Mathew Leosann 2021-02-26 2021-02-27 Outpatient nullFlavo MNA [id number] Memoria 17:30:00 05:59:59 r Neurology l Mathew [place] 2021-02-26 2021-02-26 Outpatient Rebeca, MHMISCHER MISCHER [id number] 11:30:00 23:59:59 Giuseppe Don 2021-02-26 2021-02-26 Outpatient MHIE MHIE [id number] Memoria 11:30:00 11:30:00 01 mike White 2021-02-23 2021-02-23 (TEL) STLMLC STLMLC [id number] Co mmon 00:00:00 00:00:00 [facility] 2021-02-03 2021-02-03 (TEL) STLMLC STLMLC [id number] Co mmon 00:00:00 00:00:00 [facility] 2021-01-22 2021-01-23 Outpatient nullFlavo MNA [id number] Memoria 17:30:00 05:59:59 r Neurology 00 mike Leosann 2021-01-22 2021-01-23 Outpatient nullFlavo MNA [id number] Memoria 17:30:00 05:59:59 r Neurology 00 mike Leosann 2021-01-22 2021-01-22 Outpatient Rebeca, MHMISCHER MISCHER [id number] 11:30:00 23:59:59 Giuseppe Don 2021-01-22 2021-01-22 Outpatient MHIE MHIE [id number] Memoria 11:30:00 11:30:00 00 mike White 2021-01-22 2021-01-22 (TEL) STLMLC STLMLC [id number] Co mmon 00:00:00 00:00:00 [facility] 2021-01-15 2021-01-15 (TEL) STLMLC STLMLC [id number] Co mmon 00:00:00 00:00:00 [facility] 2021-01-13 2021-01-13 (TEL) STLMLC STLMLC [id number] Co mmon 00:00:00 00:00:00 [facility] 2021-01-05 2021-01-05 OL DIG E/M STLMLC STLMLC [id number] Common 00:00:00 00:00:00 SVC 21+ [facility] 2021-01-04 2021-01-04 (TEL) STLMLC STLMLC [id number] Co mmon 00:00:00 00:00:00 [facility] 2020-12-22 2020-12-22 (TEL) STLMLC STLMLC [id number] Co mmon 00:00:00 00:00:00 [facility] 2020-12-15 2020-12-15 (TEL) STLMLC STLMLC [id number] Co mmon 00:00:00 00:00:00 [facility] 2020-12-10 2020-12-10 (TEL) STLMLC STLMLC [id number] Co mmon 00:00:00 00:00:00 [facility] 2020-12-08 2020-12-08 (TEL) STLMLC STLMLC [id number] Co mmon 00:00:00 00:00:00 [facility] 2020-12-07 2020-12-07 (TEL) STLMLC STLMLC [id number] Co mmon 00:00:00 00:00:00 [facility] 2020-11-27 2020-11-27 (TEL) STLMLC STLMLC [id number] Co mmon 00:00:00 00:00:00 [facility] 2020-11-13 2020-11-13 OFFICE STLMLC STLMLC [id number] Co mmon 00:00:00 00:00:00 VISIT EST Spir it PT LEVEL 3 [facility] 2020-10-26 2020-10-26 (TEL) STLMLC STLMLC [id number] Co mmon 00:00:00 00:00:00 [facility] 2020-10-23 2020-10-23 Outpatient STLMLC STLMLC [id number] Common 00:00:00 00:00:00 [facility] 2020-10-08 2020-10-08 Outpatient STLMLC STLMLC [id number] Common 00:00:00 00:00:00 [facility] 2020-10-08 2020-10-08 Outpatient STLMLC STLMLC [id number] Common 00:00:00 00:00:00 [facility] 2020-09-23 2020-09-23 Outpatient STLMLC STLMLC [id number] Common 00:00:00 00:00:00 [facility] 2020-09-16 2020-09-16 Outpatient STLMLC STLMLC [id number] Common 00:00:00 00:00:00 [facility] 2020-07-24 2020-07-24 Outpatient STLMLC STLMLC [id number] Common 00:00:00 00:00:00 [facility] 2020-06-22 2020-06-22 Outpatient STLMLC STLMLC [id number] Common 00:00:00 00:00:00 [facility] 2020-05-28 2020-05-28 Outpatient STLMLC STLMLC [id number] Common 00:00:00 00:00:00 [facility] 2020-05-25 2020-05-25 Outpatient STLMLC STLMLC [id number] Common 00:00:00 00:00:00 [facility] 2020-05-15 2020-05-15 Outpatient STLMLC STLMLC [id number] Common 00:00:00 00:00:00 [facility] 2020-05-15 2020-05-15 Outpatient STLMLC STLMLC [id number] Common 00:00:00 00:00:00 [facility] 2020-05-01 2020-05-01 Outpatient STLMLC STLMLC [id number] Common 00:00:00 00:00:00 [facility] 2020-04-13 2020-04-13 Outpatient STLMLC STLMLC [id number] Common 00:00:00 00:00:00 [facility] 2020-04-07 2020-04-07 Outpatient STLMLC STLMLC [id number] Common 00:00:00 00:00:00 [facility] 2020-03-13 2020-03-13 Outpatient STLMLC STLMLC [id number] Common 00:00:00 00:00:00 [facility] 2020-03-05 2020-03-05 Outpatient STLMLC STLMLC [id number] Common 00:00:00 00:00:00 [facility] 2020-03-05 2020-03-05 Outpatient STLMLC STLMLC [id number] Common 00:00:00 00:00:00 [facility] 2020-02-28 2020-02-28 Outpatient STLMLC STLMLC [id number] Common 00:00:00 00:00:00 [facility] 2020-02-28 2020-02-28 Outpatient STLMLC STLMLC [id number] Common 00:00:00 00:00:00 [facility] 2020-02-27 2020-02-27 Outpatient STLMLC STLMLC [id number] Common 00:00:00 00:00:00 [facility] 2020-02-20 2020-02-20 Outpatient STLMLC STLMLC [id number] Common 00:00:00 00:00:00 [facility] 2019-11-06 2019-11-06 Outpatient STLMLC STLMLC [id number] Common 00:00:00 00:00:00 [facility] 2019-08-28 2019-08-28 [facility] [id number] Common 09:42:00 09:42:00 [facility] 2019-08-05 2019-08-05 [facility] [id number] Common 11:00:00 11:00:[address] [facility] 2019-07-29 2019-07-29 [facility] [id number] Common 11:43:00 11:43:[address] [facility] 2019-06-17 2019-06-17 [facility] [id number] Common 10:40:00 10:40:00 t [facility] [address] [facility] 2019-06-12 2019-06-12 [facility] [id number] Common 13:20:00 13:20:00 t [facility] [address] [facility] 2019-06-11 2019-06-11 [facility] [id number] Common 10:41:00 10:41:[address] [facility] 2019-06-05 2019-06-05 [facility] [id number] Common 09:20:00 09:20:[address] [facility] 2019-06-03 2019-06-03 [facility] [id number] Common 09:27:00 09:27:[address] [facility] 2019-04-09 2019-04-09 [facility] [id number] Common 08:20:00 08:20:[address] [facility] 2019-04-02 2019-04-02 [facility] [id number] Common 07:56:00 07:56:[address] [facility] 2019-03-12 2019-03-12 [facility] [id number] Common 10:53:00 10:53:[address] [facility] 2019-03-04 2019-03-04 [facility] [id number] Common 15:25:00 15:25:00 t Specialty/U Sp sherly Specialty rology - [facility] /[facility] 2019-03-04 2019-03-04 [facility] [id number] Common 11:34:00 11:34:[address] [facility] 2019-02-01 2019-02-01 [facility] [id number] Common 14:51:00 14:51:[address] [facility] 2019-01-07 2019-01-07 [facility] [id number] Common 14:40:00 14:40:[address] [facility] 2018-12-18 2018-12-18 [facility] [id number] Common 11:11:00 11:11:00 t [facility] Clinic [facility] 2018-11-30 2018-11-30 [facility] [id number] Common 10:10:00 10:10:[address] [facility] 2018-10-14 2018-10-14 [facility] [id number] Common 20:24:00 20:24:[address] [facility] 2018-10-08 2018-10-08 [facility] [id number] Common 13:20:00 13:20:[address] [facility] 2018-09-17 2018-09-17 [facility] [id number] Common 12:25:00 12:25:[address] [facility] 2018-09-06 2018-09-06 [facility] [id number] Common 14:00:00 14:00:[address] [facility] 2018-06-07 2018-06-07 [facility] [id number] Common 09:40:00 09:40:[address] [facility] 2018-05-04 2018-05-04 [facility] [id number] Common 16:39:00 16:39:[address] [facility] 2018-04-11 2018-04-11 [facility] [id number] Common 11:39:00 11:39:[address] [facility] 2018-03-14 2018-03-14 [facility] [id number] Common 11:56:00 11:56:[address] [facility] 2018-03-09 2018-03-09 [facility] [id number] Common 14:57:00 14:57:[address] [facility] 2018-03-05 2018-03-05 [facility] [id number] Common 09:30:00 09:30:[address] [facility] 2018-01-08 2018-01-08 [facility] [id number] Common 10:15:00 10:15:[address] [facility] 2017-10-11 2017-10-11 [facility] [id number] Common 15:45:00 15:45:[address] Family - [facility] 2017-08-21 2017-08-21 [facility] [id number] Common 15:00:00 15:00:[address] [facility] 2017-06-20 2017-06-20 [facility] [id number] Common 16:33:00 16:33:[address] [facility] 2017-06-15 2017-06-15 [facility] [id number] Common 10:42:00 10:42:[address] [facility] 2017-06-02 2017-06-02 [facility] [id number] Common 12:11:00 12:11:[address] [facility] 2017-05-23 2017-05-23 [facility] [id number] Common 20:14:00 20:14:[address] [facility] 2017-05-22 2017-05-22 [facility] [id number] Common 14:00:00 14:00:[address] [facility] 2016-06-08 2016-06-14 Inpatient [facility] [id number] Memoria 14:04:00 18:19:00 keya White 05 [facility] 2016-06-08 2016-06-14 Inpatient [facility]Flavo [facility] [id number] Memoria 14:04:00 18:19:00 keya [facility] 2016-06-08 2016-06-14 [id number] 09:04:00 13:19:00 Luis Garvey 2016-06-03 2016-06-03 Day [facility]Flavo [facility] [id number] Memoria 13:42:00 23:11:00 Surgery r Christopher 04 [facility] 2016-06-03 2016-06-03 Day nullFlavo [facility] [id number] Memoria 13:42:00 23:11:00 Surgery keya White 04 [facility] 2016-06-03 2016-06-03 Outpatient Marcin [place] [id number] 08:42:00 18:11:00 Luis Garvey 2012-04-19 2012-04-26 Inpatient nullFlavo MH [id number] Memoria 00:12:00 15:30:00 keya Muñoz mike White 2012-04-19 2012-04-26 Inpatient nullFlavo MH [id number] Memoria 00:12:00 15:30:00 keya Muñoz mike White 2012-04-18 2012-04-18 [place] [id number] Memoria 13:01:00 13:01:00 keya Muñoz mike White 2012-04-18 2012-04-18 Outpatient nullFlavo [id number] Memoria 13:01:00 13:01:00 r [place] Results Test Description Test Time Test Comments Results Result Comments Source HEMATOLOGY 2016-06-13 11:25:00 Test Item Value Reference Range Interpretation Comme nts RDW (test code = RDW) 17.1 11.5-14.5 [facility]NFDONIS[facility]D3544[facility]71-79 11:25:00 Test Item Value Reference Range Interpretation Comments MCH (test code = MCH) 26.8 pg 27.0-31.0 [facility]UfsnnvtCSKRXSFZHJ5905-49-20 11:25:00 Test Item Value Reference Range Interpretation Comments Platelet (test code = Platelet) 198 133-450 [facility]ArpfdsiAHUYGEURKQ7623-17-26 11:25:00 Test Item Value Reference Range Interpretation Comments WBC (test code = WBC) 9.9 3.7-10.4 [facility] HospitalGbrtfvkPWWTOZFAFB8604-16-97 11:25:00 Test Item Value Reference Range Interpretation Comments Hgb (test code = Hgb) 8.2 12.0-16.0 [facility] HospitalYwvsjxwPKJGFQKUZA4114-68-72 11:25:00 Test Item Value Reference Range Interpretation Comments RBC (test code = RBC) 3.05 4.20-5.40 [facility] HospitalUrgnyduFAMHTFAOBX6699-22-79 11:25:00 Test Item Value Reference Range Interpretation Comments MCV (test code = MCV) 78.5 80.0-98.0 [facility] HospitalJvortncKHKPKBMNHQ7110-34-19 11:25:00 Test Item Value Reference Range Interpretation Comments Hct (test code = Hct) 23.9 36.0-48.0 [facility] HospitalFvsmdpsMITZCKDAQE8100-14-80 11:25:00 Test Item Value Reference Range Interpretation Comments Microcyte (test code = 1+ *ABN*(06/13/16 6:25 Microcyte) AM) [facility] HospitalXpiefkgMXIYNELLBV6662-61-41 11:25:00 Test Item Value Reference Range Interpretation Comments Basophils # (test code 0.1 See_Comment [Aut omated message] The = Basophils #) system which generated this result tra nsmitted reference range : <=0.2. The reference r lina was not used to int erpret this result as normal/abnormal . [facility] HospitalJsqjdylWMSTUSJLKY4603-39-05 11:25:00 Test Item Value Reference Range Interpretation Comments Eosinophils # (test code 0.2 See_Comment [A utomated message] The = Eosinophils #) system whic h generated this result tra nsmitted reference range : <=0.5. The reference r lina was not used to int erpret this result as normal/abnormal . [facility] HospitalGnzgqfdODBDMXQNJF7701-12-18 11:25:00 Test Item Value Reference Range Interpretation Comments Monocytes # (test code 0.7 See_Comment [Aut omated message] The = Monocytes #) system which generated this result tra nsmitted reference range : <=0.8. The reference r lina was not used to int erpret this result as normal/abnormal . [facility] HospitalKfzxjtxYXNXTSXCMX7088-05-65 11:25:00 Test Item Value Reference Range Interpretation Comments Lymphocytes (test code = Lymphocytes) 17.6 20.0-40.0 [facility] HospitalGjqrxenEIHLJHINNM0520-47-54 11:25:00 Test Item Value Reference Range Interpretation Comments Segs (test code = Segs) 73.1 45.0-75.0 [facility] HospitalDowknyiDZMSTQRUEE0634-58-60 11:25:00 Test Item Value Reference Range Interpretation Comments Basophils (test code = 0.5 See_Comment [Aut omated message] The Basophils) system which ge nerated this result tra nsmitted reference range : <=1.0. The reference r lina was not used to int erpret this result as normal/abnormal . [facility] HospitalPoiztisQHHERWZFGL8693-68-50 11:25:00 Test Item Value Reference Range Interpretation Comments Eosinophils (test code = 2.2 See_Comment [A utomated message] The Eosinophils) system which ge nerated this result tra nsmitted reference range : <=4.0. The reference r lina was not used to int erpret this result as normal/abnormal . [facility] HospitalCgraiwmYKCBNUIKJD6120-92-95 11:25:00 Test Item Value Reference Range Interpretation Comments Monocytes (test code = Monocytes) 6.6 2.0-12.0 [facility] HospitalSubmocbNQMKQIIXKN2926-43-51 11:25:00 Test Item Value Reference Range Interpretation Comments Lymphocytes # (test code = Lymphocytes 1.7 1.0-5.5 #) [facility] HospitalGbrvuovSFKZXVNUZV8902-37-91 11:25:00 Test Item Value Reference Range Interpretation Comments Segs-Bands # (test code = Segs-Bands #) 7.2 1.5-8.1 [facility]2017-05-01 11:25:00 Test Item Value Reference Range Interpretation Comments eGFR (test code = eGFR) 86 [facility]2017-05-01 11:25:00 Test Item Value Reference Range Interpretation Comments Calcium Lvl (test code = Calcium Lvl) 8.9 8.5-10.5 [facility]2017-05-01 11:25:00 Test Item Value Reference Range Interpretation Comments Total Protein (test code = Total 6.2 6.4-8.4 Protein) [facility]2017-05-01 11:25:00 Test Item Value Reference Range Interpretation Comments Bili Total (test code = Bili Total) 0.5 0.2-1.3 [facility]2017-05-01 11:25:00 Test Item Value Reference Range Interpretation Comments CO2 (test code = CO2) 30 24-32 [facility]2017-05-01 11:25:00 Test Item Value Reference Range Interpretation Comments ALT (test code = ALT) 18 See_Comment [Auto mated message] The system which ge nerated this result transmit norris reference range : <=65. The reference range was not used to interpr et this result as darshana l/abnormal. [facility]2017-05-01 11:25:00 Test Item Value Reference Range Interpretation Comments Albumin Lvl (test code = Albumin Lvl) 2.9 3.5-5.0 [facility]2017-05-01 11:25:00 Test Item Value Reference Range Interpretation Comments AST (test code = AST) 15 See_Comment [Auto mated message] The system which ge nerated this result transmit norris reference range : <=37. The reference range was not used to interpr et this result as darshana l/abnormal. [facility]2017-05-01 11:25:00 Test Item Value Reference Range Interpretation Comments Alk Phos (test code = Alk Phos) 71 39-136 [facility]2017-05-01 11:25:00 Test Item Value Reference Range Interpretation Comments Chloride Lvl (test code = Chloride Lvl) 100 95-109 [facility]2017-05-01 11:25:00 Test Item Value Reference Range Interpretation Comments Sodium Lvl (test code = Sodium Lvl) 140 135-145 [facility]2017-05-01 11:25:00 Test Item Value Reference Range Interpretation Comments Creatinine Lvl (test code = Creatinine 0.64 0.50-1.40 Lvl) [facility]2017-05-01 11:25:00 Test Item Value Reference Range Interpretation Comments BUN (test code = BUN) 23 7-22 [facility]2017-05-01 11:25:00 Test Item Value Reference Range Interpretation Comments Potassium Lvl (test code = Potassium 3.5 3.5-5.1 Lvl) [facility]2017-05-01 11:25:00 Test Item Value Reference Range Interpretation Comments Glucose Lvl (test code = Glucose Lvl) 134 70-99 [facility]2017-05-01 11:25:00 Test Item Value Reference Range Interpretation Comments A/G Ratio (test code = A/G Ratio) 0.9 0.7-1.6 [facility]2017-05-01 11:25:00 Test Item Value Reference Range Interpretation Comments Globulin (test code = Globulin) 3.3 2.7-4.2 [facility]2017-05-01 11:25:00 Test Item Value Reference Range Interpretation Comments B/C Ratio (test code = B/C Ratio) 36 6-25 [facility]2017-05-01 11:25:00 Test Item Value Reference Range Interpretation Comments AGAP (test code = AGAP) 13.5 10.0-20.0 [facility] HospitalSevkwkeNGKRGYWUAM0718-32-33 11:25:00 Test Item Value Reference Range Interpretation Comments MCHC (test code = MCHC) 34.1 32.0-36.0 [facility] HospitalFriehvrWWUUNUVGOB8394-04-72 11:25:00 Test Item Value Reference Range Interpretation Comments MPV (test code = MPV) 9.4 7.4-10.4 [facility] HospitalEqoezpjQEQJWTIUAA5016-05-29 11:25:00 Test Item Value Reference Range Interpretation Comments RDW (test code = RDW) 17.1 11.5-14.5 [facility] HospitalCbanlwmYPYDIUNISM0203-07-87 11:25:00 Test Item Value Reference Range Interpretation Comments MCH (test code = MCH) 26.8 pg 27.0-31.0 [facility] HospitalVovmkalZCGRFTPTMG0118-19-13 11:25:00 Test Item Value Reference Range Interpretation Comments Platelet (test code = Platelet) 198 133-450 [facility] HospitalKkvgbpyNXVMHADHXI2533-89-41 11:25:00 Test Item Value Reference Range Interpretation Comments WBC (test code = WBC) 9.9 3.7-10.4 [facility] HospitalKgjslzwPHLBENGPKO7535-63-25 11:25:00 Test Item Value Reference Range Interpretation Comments Hgb (test code = Hgb) 8.2 12.0-16.0 [facility] HospitalTilccfvVCLUWHLANH4296-48-17 11:25:00 Test Item Value Reference Range Interpretation Comments RBC (test code = RBC) 3.05 4.20-5.40 [facility] HospitalFvxgemoEBQXKCEWFF2207-10-43 11:25:00 Test Item Value Reference Range Interpretation Comments MCV (test code = MCV) 78.5 80.0-98.0 [facility] HospitalCqonqxgCLESZAXKAS7299-48-86 11:25:00 Test Item Value Reference Range Interpretation Comments Hct (test code = Hct) 23.9 36.0-48.0 [facility] HospitalXyccmtiMLFKMWSAKP7215-93-57 11:25:00 Test Item Value Reference Range Interpretation Comments Microcyte (test code = 1+ *ABN*(06/13/16 6:25 Microcyte) AM) [facility] HospitalZgimbeaDSCQXYYYCJ2443-69-52 11:25:00 Test Item Value Reference Range Interpretation Comments Basophils # (test code 0.1 See_Comment [Aut omated message] The = Basophils #) system which generated this result tra nsmitted reference range : <=0.2. The reference r lina was not used to int erpret this result as normal/abnormal . [facility] HospitalCemdsbpQOGAKEJGND5751-51-80 11:25:00 Test Item Value Reference Range Interpretation Comments Eosinophils # (test code 0.2 See_Comment [A utomated message] The = Eosinophils #) system whic h generated this result tra nsmitted reference range : <=0.5. The reference r lina was not used to int erpret this result as normal/abnormal . [facility] HospitalLuqnfxxMNREVRSPUX3370-44-19 11:25:00 Test Item Value Reference Range Interpretation Comments Monocytes # (test code 0.7 See_Comment [Aut omated message] The = Monocytes #) system which generated this result tra nsmitted reference range : <=0.8. The reference r lina was not used to int erpret this result as normal/abnormal . [facility] HospitalLiegceeBEJQOVVIIF6467-20-80 11:25:00 Test Item Value Reference Range Interpretation Comments Lymphocytes (test code = Lymphocytes) 17.6 20.0-40.0 [facility] HospitalUytuxfvQAHTFOPDAO5857-79-36 11:25:00 Test Item Value Reference Range Interpretation Comments Segs (test code = Segs) 73.1 45.0-75.0 [facility] HospitalXsmpoeaYGCMLQSZDV6652-22-39 11:25:00 Test Item Value Reference Range Interpretation Comments Basophils (test code = 0.5 See_Comment [Aut omated message] The Basophils) system which ge nerated this result tra nsmitted reference range : <=1.0. The reference r lina was not used to int erpret this result as normal/abnormal . [facility] HospitalNqqxfxhYNQLIAOZEK2125-16-09 11:25:00 Test Item Value Reference Range Interpretation Comments Eosinophils (test code = 2.2 See_Comment [A utomated message] The Eosinophils) system which ge nerated this result tra nsmitted reference range : <=4.0. The reference r lina was not used to int erpret this result as normal/abnormal . [facility] HospitalCcqtxevASLUMOOUYZ2138-45-06 11:25:00 Test Item Value Reference Range Interpretation Comments Monocytes (test code = Monocytes) 6.6 2.0-12.0 [id number] 11:25:00 Test Item Value Reference Range Interpretation Comments Lymphocytes # (test code = Lymphocytes 1.7 1.0-5.5 #) [facility]BbeaiwsXYSMHBZVBC5107-98-42 11:25:00 Test Item Value Reference Range Interpretation Comments Segs-Bands # (test code = Segs-Bands #) 7.2 1.5-8.1 [facility]2017-05-01 11:25:00 Test Item Value Reference Range Interpretation Comments eGFR (test code = eGFR) 86 [facility]2017-05-01 11:25:00 Test Item Value Reference Range Interpretation Comments Calcium Lvl (test code = Calcium Lvl) 8.9 8.5-10.5 [facility]2017-05-01 11:25:00 Test Item Value Reference Range Interpretation Comments Total Protein (test code = Total 6.2 6.4-8.4 Protein) [facility]2017-05-01 11:25:00 Test Item Value Reference Range Interpretation Comments Bili Total (test code = Bili Total) 0.5 0.2-1.3 [place] 976717-05-01 11:25:00 Test Item Value Reference Range Interpretation Comments CO2 (test code = CO2) 30 24-32 [place] 976717-05-01 11:25:00 Test Item Value Reference Range Interpretation Comments ALT (test code = ALT) 18 See_Comment [Auto mated message] The system which ge nerated this result transmit norris reference range : <=65. The reference range was not used to interpr et this result as darshana l/abnormal. [facility]2017-05-01 11:25:00 Test Item Value Reference Range Interpretation Comments Albumin Lvl (test code = Albumin Lvl) 2.9 3.5-5.0 [facility]2017-05-01 11:25:00 Test Item Value Reference Range Interpretation Comments AST (test code = AST) 15 See_Comment [Auto mated message] The system which ge nerated this result transmit norris reference range : <=37. The reference range was not used to interpr et this result as darshana l/abnormal. [facility]2017-05-01 11:25:00 Test Item Value Reference Range Interpretation Comments Alk Phos (test code = Alk Phos) 71 39-136 [facility]2017-05-01 11:25:00 Test Item Value Reference Range Interpretation Comments Chloride Lvl (test code = Chloride Lvl) 100 95-109 [facility]2017-05-01 11:25:00 Test Item Value Reference Range Interpretation Comments Sodium Lvl (test code = Sodium Lvl) 140 135-145 [facility]2017-05-01 11:25:00 Test Item Value Reference Range Interpretation Comments Creatinine Lvl (test code = Creatinine 0.64 0.50-1.40 Lvl) [facility]2017-05-01 11:25:00 Test Item Value Reference Range Interpretation Comments BUN (test code = BUN) 23 7-22 [facility]2017-05-01 11:25:00 Test Item Value Reference Range Interpretation Comments Potassium Lvl (test code = Potassium 3.5 3.5-5.1 Lvl) [facility]2017-05-01 11:25:00 Test Item Value Reference Range Interpretation Comments Glucose Lvl (test code = Glucose Lvl) 134 70-99 [facility]2017-05-01 11:25:00 Test Item Value Reference Range Interpretation Comments A/G Ratio (test code = A/G Ratio) 0.9 0.7-1.6 [facility]2017-05-01 11:25:00 Test Item Value Reference Range Interpretation Comments Globulin (test code = Globulin) 3.3 2.7-4.2 [facility]2017-05-01 11:25:00 Test Item Value Reference Range Interpretation Comments B/C Ratio (test code = B/C Ratio) 36 6-25 [facility]2017-05-01 11:25:00 Test Item Value Reference Range Interpretation Comments AGAP (test code = AGAP) 13.5 10.0-20.0 [facility] HospitalRsoozfmFSHWKQUGYW0838-21-77 11:25:00 Test Item Value Reference Range Interpretation Comments MCHC (test code = MCHC) 34.1 32.0-36.0 [facility] HospitalKygzivtKMADNXOKJP1335-86-73 11:25:00 Test Item Value Reference Range Interpretation Comments MPV (test code = MPV) 9.4 7.4-10.4 [facility] HospitalEvfhohwUUVVZSBXWL6289-38-51 11:25:00 Test Item Value Reference Range Interpretation Comments RDW (test code = RDW) 17.1 11.5-14.5 [facility] HospitalEcbhvpbUBKNOYQKDO8223-99-72 11:25:00 Test Item Value Reference Range Interpretation Comments MCH (test code = MCH) 26.8 pg 27.0-31.0 [facility] HospitalEdnjmpqLOXJXXVQYS8026-11-85 11:25:00 Test Item Value Reference Range Interpretation Comments Platelet (test code = Platelet) 198 133-450 [facility] HospitalDaepyxrWAHCQVLRDX5693-83-31 11:25:00 Test Item Value Reference Range Interpretation Comments WBC (test code = WBC) 9.9 3.7-10.4 [facility] HospitalZzmlacaHWAZUDIMHZ0082-50-95 11:25:00 Test Item Value Reference Range Interpretation Comments Hgb (test code = Hgb) 8.2 12.0-16.0 [facility] HospitalUjsarygUOYQHTCXKQ8669-52-73 11:25:00 Test Item Value Reference Range Interpretation Comments RBC (test code = RBC) 3.05 4.20-5.40 [facility] HospitalBbxgwyaRWNYVVVDPT5182-52-90 11:25:00 Test Item Value Reference Range Interpretation Comments MCV (test code = MCV) 78.5 80.0-98.0 [facility] HospitalXidsgwbBSSEQQLXOX2906-44-06 11:25:00 Test Item Value Reference Range Interpretation Comments Hct (test code = Hct) 23.9 36.0-48.0 [facility] HospitalQoctvnoMCSOGFFMYC4271-71-77 11:25:00 Test Item Value Reference Range Interpretation Comments Microcyte (test code = 1+ *ABN*(06/13/16 6:25 Microcyte) AM) [facility] HospitalNxoxqnlTJWDRHNTZW3266-82-53 11:25:00 Test Item Value Reference Range Interpretation Comments Basophils # (test code 0.1 See_Comment [Aut omated message] The = Basophils #) system which generated this result tra nsmitted reference range : <=0.2. The reference r lina was not used to int erpret this result as normal/abnormal . [facility] HospitalUfbxkcsEIHMBIZKPF1272-80-46 11:25:00 Test Item Value Reference Range Interpretation Comments Eosinophils # (test code 0.2 See_Comment [A utomated message] The = Eosinophils #) system whic h generated this result tra nsmitted reference range : <=0.5. The reference r lina was not used to int erpret this result as normal/abnormal . [facility] HospitalFscomurIHMHLLMMNM9163-15-67 11:25:00 Test Item Value Reference Range Interpretation Comments Monocytes # (test code 0.7 See_Comment [Aut omated message] The = Monocytes #) system which generated this result tra nsmitted reference range : <=0.8. The reference r lina was not used to int erpret this result as normal/abnormal . [facility] HospitalLmtzgdoQIEQNFAEUZ8786-24-59 11:25:00 Test Item Value Reference Range Interpretation Comments Lymphocytes (test code = Lymphocytes) 17.6 20.0-40.0 [facility] HospitalHyokozbZRKMRZBNBU4877-08-68 11:25:00 Test Item Value Reference Range Interpretation Comments Segs (test code = Segs) 73.1 45.0-75.0 [facility] HospitalFanugkiXAFFSPYZOF7243-71-00 11:25:00 Test Item Value Reference Range Interpretation Comments Basophils (test code = 0.5 See_Comment [Aut omated message] The Basophils) system which ge nerated this result tra nsmitted reference range : <=1.0. The reference r lina was not used to int erpret this result as normal/abnormal . [facility] HospitalVavfskaKZPUTSYVRN6407-94-06 11:25:00 Test Item Value Reference Range Interpretation Comments Eosinophils (test code = 2.2 See_Comment [A utomated message] The Eosinophils) system which ge nerated this result tra nsmitted reference range : <=4.0. The reference r lina was not used to int erpret this result as normal/abnormal . [facility] HospitalGjdjxytJLGXZYHCFN0306-63-50 11:25:00 Test Item Value Reference Range Interpretation Comments Monocytes (test code = Monocytes) 6.6 2.0-12.0 [facility] HospitalVavqxmgCFBBOOQXUA0559-99-80 11:25:00 Test Item Value Reference Range Interpretation Comments Lymphocytes # (test code = Lymphocytes 1.7 1.0-5.5 #) [facility] HospitalKfupotnMFTCNCHQIE9304-17-02 11:25:00 Test Item Value Reference Range Interpretation Comments Segs-Bands # (test code = Segs-Bands #) 7.2 1.5-8.1 [facility]2017-05-01 11:25:00 Test Item Value Reference Range Interpretation Comments eGFR (test code = eGFR) 86 [facility]2017-05-01 11:25:00 Test Item Value Reference Range Interpretation Comments Calcium Lvl (test code = Calcium Lvl) 8.9 8.5-10.5 [facility]2017-05-01 11:25:00 Test Item Value Reference Range Interpretation Comments Total Protein (test code = Total 6.2 6.4-8.4 Protein) [facility]2017-05-01 11:25:00 Test Item Value Reference Range Interpretation Comments Bili Total (test code = Bili Total) 0.5 0.2-1.3 [facility]2017-05-01 11:25:00 Test Item Value Reference Range Interpretation Comments CO2 (test code = CO2) 30 24-32 [facility]2017-05-01 11:25:00 Test Item Value Reference Range Interpretation Comments ALT (test code = ALT) 18 See_Comment [Auto mated message] The system which ge nerated this result transmit norris reference range : <=65. The reference range was not used to interpr et this result as darshana l/abnormal. [facility]2017-05-01 11:25:00 Test Item Value Reference Range Interpretation Comments Albumin Lvl (test code = Albumin Lvl) 2.9 3.5-5.0 [facility]2017-05-01 11:25:00 Test Item Value Reference Range Interpretation Comments AST (test code = AST) 15 See_Comment [Auto mated message] The system which ge nerated this result transmit norris reference range : <=37. The reference range was not used to interpr et this result as darshana l/abnormal. [facility]2017-05-01 11:25:00 Test Item Value Reference Range Interpretation Comments Alk Phos (test code = Alk Phos) 71 39-136 [facility]2017-05-01 11:25:00 Test Item Value Reference Range Interpretation Comments Chloride Lvl (test code = Chloride Lvl) 100 95-109 [facility]2017-05-01 11:25:00 Test Item Value Reference Range Interpretation Comments Sodium Lvl (test code = Sodium Lvl) 140 135-145 [facility]2017-05-01 11:25:00 Test Item Value Reference Range Interpretation Comments Creatinine Lvl (test code = Creatinine 0.64 0.50-1.40 Lvl) [facility]2017-05-01 11:25:00 Test Item Value Reference Range Interpretation Comments BUN (test code = BUN) 23 7-22 [facility]2017-05-01 11:25:00 Test Item Value Reference Range Interpretation Comments Potassium Lvl (test code = Potassium 3.5 3.5-5.1 Lvl) [facility]2017-05-01 11:25:00 Test Item Value Reference Range Interpretation Comments Glucose Lvl (test code = Glucose Lvl) 134 70-99 [facility]2017-05-01 11:25:00 Test Item Value Reference Range Interpretation Comments A/G Ratio (test code = A/G Ratio) 0.9 0.7-1.6 [facility]2017-05-01 11:25:00 Test Item Value Reference Range Interpretation Comments Globulin (test code = Globulin) 3.3 2.7-4.2 [facility]2017-05-01 11:25:00 Test Item Value Reference Range Interpretation Comments B/C Ratio (test code = B/C Ratio) 36 6-25 [facility]2017-05-01 11:25:00 Test Item Value Reference Range Interpretation Comments AGAP (test code = AGAP) 13.5 10.0-20.0 [facility] Hos[id number] 11:25:00 Test Item Value Reference Range Interpretation Comments MCHC (test code = MCHC) 34.1 32.0-36.0 [facility] HospitalZeyfeskUWHCMKWKJQ0838-31-75 11:25:00 Test Item Value Reference Range Interpretation Comments MPV (test code = MPV) 9.4 7.4-10.4 [facility] HospitalZaaqzghEJXBFTTIEH3683-60-36 02:08:00 Test Item Value Reference Range Interpretation Comments Hgb (test code = Hgb) 8.0 12.0-16.0 [facility] HospitalGybyignYDPDMUILLD0770-73-17 02:08:00 Test Item Value Reference Range Interpretation Comments Hct (test code = Hct) 24.0 36.0-48.0 [facility] HospitalOpglkoxSXNMPKRANK6279-72-35 02:08:00 Test Item Value Reference Range Interpretation Comments Hgb (test code = Hgb) 8.0 12.0-16.0 [facility] HospitalRzdwxsfLVQHRNZQXX3702-17-04 02:08:00 Test Item Value Reference Range Interpretation Comments Hct (test code = Hct) 24.0 36.0-48.0 [facility] HospitalKzlfrfoOTOJRJVEVO7532-55-48 02:08:00 Test Item Value Reference Range Interpretation Comments Hgb (test code = Hgb) 8.0 12.0-16.0 [facility] HospitalTzhizavYJHUBWCCJT3019-65-20 02:08:00 Test Item Value Reference Range Interpretation Comments Hct (test code = Hct) 24.0 36.0-48.[address] [facility] [id number] 11:30:00 Test Item Value Reference Range Interpretation Comments RBC product (test code Product available = RBC product) 1(06/10/16 6:30 AM) [facility] [id number] 11:30:00 Test Item Value Reference Range Interpretation Comments RBC product (test code Product available = RBC product) 1(06/10/16 6:30 AM) [facility] [id number] 11:30:00 Test Item Value Reference Range Interpretation Comments RBC product (test code Product available = RBC product) 1(06/10/16 6:30 AM) [facility] [employer] [id number] 09:06:00 Test Item Value Reference Range Interpretation Comments eGFR (test code = eGFR) 85 [facility] [employer] [id number] 09:06:00 Test Item Value Reference Range Interpretation Comments Creatinine Lvl (test code = Creatinine 0.66 0.50-1.40 Lvl) [facility] [id number] 09:06:00 Test Item Value Reference Range Interpretation Comments Potassium Lvl (test code = Potassium 3.9 3.5-5.1 Lvl) [facility] [employer] [id number] 09:06:00 Test Item Value Reference Range Interpretation Comments Sodium Lvl (test code = Sodium Lvl) 143 135-145 [facility] [employer] [id number] 09:06:00 Test Item Value Reference Range Interpretation Comments Chloride Lvl (test code = Chloride Lvl) 109 95-109 [facility] [employer] [id number] 09:06:00 Test Item Value Reference Range Interpretation Comments CO2 (test code = CO2) 25 24-32 [facility] [id number] 09:06:00 Test Item Value Reference Range Interpretation Comments AGAP (test code = AGAP) 12.9 10.0-20.0 [facility] [employer] [id number] 09:06:00 Test Item Value Reference Range Interpretation Comments Calcium Lvl (test code = Calcium Lvl) 7.9 8.5-10.5 [facility] [employer] [id number] 09:06:00 Test Item Value Reference Range Interpretation Comments Glucose Lvl (test code = Glucose Lvl) 143 70-99 [facility] [employer] [id number] 09:06:00 Test Item Value Reference Range Interpretation Comments BUN (test code = BUN) 19 7-22 [facility]2017-04-28 09:06:00 Test Item Value Reference Range Interpretation Comments Magnesium Lvl (test code = Magnesium 2.1 1.8-2.4 Lvl) [facility]2017-04-28 09:06:00 Test Item Value Reference Range Interpretation Comments Phosphorus (test code = Phosphorus) 2.8 2.5-4.5 [facility] HospitalDybwvzoBGLIEOMPOA4002-22-67 09:06:00 Test Item Value Reference Range Interpretation Comments Hgb (test code = Hgb) 7.3 12.0-16.0 [facility] HospitalHikthasCOVQPDAXDQ8972-25-47 09:06:00 Test Item Value Reference Range Interpretation Comments RBC (test code = RBC) 2.77 4.20-5.40 [facility] HospitalUfimdftLSAMEJXORQ0807-54-04 09:06:00 Test Item Value Reference Range Interpretation Comments WBC (test code = WBC) 8.1 3.7-10.4 [facility] HospitalEuizavfRMVHBFZGAW8332-95-78 09:06:00 Test Item Value Reference Range Interpretation Comments MPV (test code = MPV) 9.8 7.4-10.4 [facility] HospitalShmyyveLXIGTPRAYD6648-35-48 09:06:00 Test Item Value Reference Range Interpretation Comments Platelet (test code = Platelet) 138 133-450 [facility] HospitalPyazjmyXGCZUDXBSD4973-68-28 09:06:00 Test Item Value Reference Range Interpretation Comments MCV (test code = MCV) 78.7 80.0-98.0 [facility] HospitalXhaeuopZVPLEHZOON9273-42-46 09:06:00 Test Item Value Reference Range Interpretation Comments RDW (test code = RDW) 16.6 11.5-14.5 [facility] HospitalDbsfarkYRHCFXWQEX3602-20-58 09:06:00 Test Item Value Reference Range Interpretation Comments MCHC (test code = MCHC) 33.4 32.0-36.0 [facility] HospitalZzisbuoQPDTSXNYEN2749-12-98 09:06:00 Test Item Value Reference Range Interpretation Comments Hct (test code = Hct) 21.8 36.0-48.0 [facility] HospitalQldlxssQCNXGRWNZZ9802-01-63 09:06:00 Test Item Value Reference Range Interpretation Comments MCH (test code = MCH) 26.3 pg 27.0-31.0 [facility] HospitalTpobmunQLMPOTPOFC7467-04-75 09:06:00 Test Item Value Reference Range Interpretation Comments Microcyte (test code = 1+ *ABN*(06/10/16 Microcyte) 4:06 AM) [facility] HospitalIsgkmnrONVLEGUNXL2980-35-27 09:06:00 Test Item Value Reference Range Interpretation Comments Segs-Bands # (test code = Segs-Bands #) 5.6 1.5-8.1 [facility] HospitalGnxkrlnFAYSTDAZNT5171-93-01 09:06:00 Test Item Value Reference Range Interpretation Comments Eosinophils # (test code 0.1 See_Comment [A utomated message] The = Eosinophils #) system wh h generated this result tra nsmitted reference range : <=0.5. The reference r lina was not used to int erpret this result as normal/abnormal . [facility] HospitalNwlrrmhHINOPBNVPE0279-46-66 09:06:00 Test Item Value Reference Range Interpretation Comments Monocytes # (test code 0.5 See_Comment [Aut omated message] The = Monocytes #) system which generated this result tra nsmitted reference range : <=0.8. The reference r lina was not used to int erpret this result as normal/abnormal . [facility] HospitalObrrvsrUWYKDULPXN6807-37-88 09:06:00 Test Item Value Reference Range Interpretation Comments Basophils (test code = 0.3 See_Comment [Aut omated message] The Basophils) system which ge nerated this result tra nsmitted reference range : <=1.0. The reference r lina was not used to int erpret this result as normal/abnormal . [facility] HospitalYtoazidGXFRRXJOSB6694-27-44 09:06:00 Test Item Value Reference Range Interpretation Comments Lymphocytes # (test code = Lymphocytes 1.9 1.0-5.5 #) [facility] HospitalHzvdbvpTNMFYUKWML7683-33-51 09:06:00 Test Item Value Reference Range Interpretation Comments Eosinophils (test code = 0.9 See_Comment [A utomated message] The Eosinophils) system which ge nerated this result tra nsmitted reference range : <=4.0. The reference r lina was not used to int erpret this result as normal/abnormal . [facility] HospitalXgfhprxPPKJTHYAKR4348-48-50 09:06:00 Test Item Value Reference Range Interpretation Comments Monocytes (test code = Monocytes) 6.5 2.0-12.0 [facility] HospitalFbggkvoRMOMUJDFIN7010-53-09 09:06:00 Test Item Value Reference Range Interpretation Comments Lymphocytes (test code = Lymphocytes) 23.3 20.0-40.0 [facility] HospitalVnhvkvkQIAUGTOYVG1419-22-32 09:06:00 Test Item Value Reference Range Interpretation Comments Segs (test code = Segs) 69.0 45.0-75.0 [facility]2017-04-28 09:06:00 Test Item Value Reference Range Interpretation Comments eGFR (test code = eGFR) 85 [facility]2017-04-28 09:06:00 Test Item Value Reference Range Interpretation Comments Creatinine Lvl (test code = Creatinine 0.66 0.50-1.40 Lvl) [facility]2017-04-28 09:06:00 Test Item Value Reference Range Interpretation Comments Potassium Lvl (test code = Potassium 3.9 3.5-5.1 Lvl) [facility]2017-04-28 09:06:00 Test Item Value Reference Range Interpretation Comments Sodium Lvl (test code = Sodium Lvl) 143 135-145 [facility]2017-04-28 09:06:00 Test Item Value Reference Range Interpretation Comments Chloride Lvl (test code = Chloride Lvl) 109 95-109 [facility]2017-04-28 09:06:00 Test Item Value Reference Range Interpretation Comments CO2 (test code = CO2) 25 24-32 [facility]2017-04-28 09:06:00 Test Item Value Reference Range Interpretation Comments AGAP (test code = AGAP) 12.9 10.0-20.0 [facility]2017-04-28 09:06:00 Test Item Value Reference Range Interpretation Comments Calcium Lvl (test code = Calcium Lvl) 7.9 8.5-10.5 [facility]2017-04-28 09:06:00 Test Item Value Reference Range Interpretation Comments Glucose Lvl (test code = Glucose Lvl) 143 70-99 [facility]2017-04-28 09:06:00 Test Item Value Reference Range Interpretation Comments BUN (test code = BUN) 19 7-22 [facility]2017-04-28 09:06:00 Test Item Value Reference Range Interpretation Comments Magnesium Lvl (test code = Magnesium 2.1 1.8-2.4 Lvl) [facility]2017-04-28 09:06:00 Test Item Value Reference Range Interpretation Comments Phosphorus (test code = Phosphorus) 2.8 2.5-4.5 [facility] HospitalPgfiwgsKYFDJDVTCG6847-88-37 09:06:00 Test Item Value Reference Range Interpretation Comments Hgb (test code = Hgb) 7.3 12.0-16.0 [facility] HospitalUvcivtpUIJITSKSGR3089-22-83 09:06:00 Test Item Value Reference Range Interpretation Comments RBC (test code = RBC) 2.77 4.20-5.40 [facility] HospitalJclhkysEIMITMZHFS6695-62-25 09:06:00 Test Item Value Reference Range Interpretation Comments WBC (test code = WBC) 8.1 3.7-10.4 [facility] HospitalLdlfcdgYOPUFLIFUB6406-83-89 09:06:00 Test Item Value Reference Range Interpretation Comments MPV (test code = MPV) 9.8 7.4-10.4 [facility] HospitalZsmbplkFTQWJRLTGE6291-17-44 09:06:00 Test Item Value Reference Range Interpretation Comments Platelet (test code = Platelet) 138 133-450 [facility] HospitalKznerokMKVKYBEKQD3449-17-20 09:06:00 Test Item Value Reference Range Interpretation Comments MCV (test code = MCV) 78.7 80.0-98.0 [facility] HospitalOvmmtnfDABONDBQBZ5975-63-33 09:06:00 Test Item Value Reference Range Interpretation Comments RDW (test code = RDW) 16.6 11.5-14.5 [facility] HospitalZzortwtUEIWMIHRRZ4910-11-35 09:06:00 Test Item Value Reference Range Interpretation Comments MCHC (test code = MCHC) 33.4 32.0-36.0 [facility] HospitalGpmayjoZSNNFORZBY9266-45-46 09:06:00 Test Item Value Reference Range Interpretation Comments Hct (test code = Hct) 21.8 36.0-48.0 [facility] HospitalOjinudpZVITOJUBDY9850-49-43 09:06:00 Test Item Value Reference Range Interpretation Comments MCH (test code = MCH) 26.3 pg 27.0-31.0 [facility] HospitalCnsqodqXDYRIQKZUZ1080-49-79 09:06:00 Test Item Value Reference Range Interpretation Comments Microcyte (test code = 1+ *ABN*(06/10/16 Microcyte) 4:06 AM) [facility] HospitalBcpqjxjSJPBZQBHIW3580-10-66 09:06:00 Test Item Value Reference Range Interpretation Comments Segs-Bands # (test code = Segs-Bands #) 5.6 1.5-8.1 [facility] HospitalRujggviNYVZKSRKNT7039-61-59 09:06:00 Test Item Value Reference Range Interpretation Comments Eosinophils # (test code 0.1 See_Comment [A utomated message] The = Eosinophils #) system whic h generated this result tra nsmitted reference range : <=0.5. The reference r lina was not used to int erpret this result as normal/abnormal . [facility] HospitalNcluwkmKIDDEYMDER4695-61-18 09:06:00 Test Item Value Reference Range Interpretation Comments Monocytes # (test code 0.5 See_Comment [Aut omated message] The = Monocytes #) system which generated this result tra nsmitted reference range : <=0.8. The reference r lina was not used to int erpret this result as normal/abnormal . [facility] HospitalFvaitqiNXYRKHFFYN2997-44-13 09:06:00 Test Item Value Reference Range Interpretation Comments Basophils (test code = 0.3 See_Comment [Aut omated message] The Basophils) system which ge nerated this result tra nsmitted reference range : <=1.0. The reference r lina was not used to int erpret this result as normal/abnormal . [facility]WzwlnuxLALKPRTNRX5775-74-28 09:06:00 Test Item Value Reference Range Interpretation Comments Lymphocytes # (test code = Lymphocytes 1.9 1.0-5.5 #) [facility] HospitalLkzajbkVHWJHNEFBX0723-35-21 09:06:00 Test Item Value Reference Range Interpretation Comments Eosinophils (test code = 0.9 See_Comment [A utomated message] The Eosinophils) system which ge nerated this result tra nsmitted reference range : <=4.0. The reference r lina was not used to int erpret this result as normal/abnormal . [facility] HospitalNnywuzlLWINSCAOLN3316-97-87 09:06:00 Test Item Value Reference Range Interpretation Comments Monocytes (test code = Monocytes) 6.5 2.0-12.0 [facility] HospitalJkeaynjEEFBHNIUQR6489-92-03 09:06:00 Test Item Value Reference Range Interpretation Comments Lymphocytes (test code = Lymphocytes) 23.3 20.0-40.0 [facility]NBTPTXYSHS2943-54-08 09:06:00 Test Item Value Reference Range Interpretation Comments Segs (test code = Segs) 69.0 45.0-75.0 [facility]2017-04-28 09:06:00 Test Item Value Reference Range Interpretation Comments eGFR (test code = eGFR) 85 [facility]2017-04-28 09:06:00 Test Item Value Reference Range Interpretation Comments Creatinine Lvl (test code = Creatinine 0.66 0.50-1.40 Lvl) [facility]2017-04-28 09:06:00 Test Item Value Reference Range Interpretation Comments Potassium Lvl (test code = Potassium 3.9 3.5-5.1 Lvl) [facility]2017-04-28 09:06:00 Test Item Value Reference Range Interpretation Comments Sodium Lvl (test code = Sodium Lvl) 143 135-145 [facility]2017-04-28 09:06:00 Test Item Value Reference Range Interpretation Comments Chloride Lvl (test code = Chloride Lvl) 109 95-109 [facility]2017-04-28 09:06:00 Test Item Value Reference Range Interpretation Comments CO2 (test code = CO2) 25 24-32 [facility]2017-04-28 09:06:00 Test Item Value Reference Range Interpretation Comments AGAP (test code = AGAP) 12.9 10.0-20.0 [facility]2017-04-28 09:06:00 Test Item Value Reference Range Interpretation Comments Calcium Lvl (test code = Calcium Lvl) 7.9 8.5-10.5 [facility]2017-04-28 09:06:00 Test Item Value Reference Range Interpretation Comments Glucose Lvl (test code = Glucose Lvl) 143 70-99 [facility]2017-04-28 09:06:00 Test Item Value Reference Range Interpretation Comments BUN (test code = BUN) 19 7-22 [facility]2017-04-28 09:06:00 Test Item Value Reference Range Interpretation Comments Magnesium Lvl (test code = Magnesium 2.1 1.8-2.4 Lvl) [facility]2017-04-28 09:06:00 Test Item Value Reference Range Interpretation Comments Phosphorus (test code = Phosphorus) 2.8 2.5-4.5 [facility] HospitalUxejqkzCCSHWYNCZG2032-41-33 09:06:00 Test Item Value Reference Range Interpretation Comments Hgb (test code = Hgb) 7.3 12.0-16.0 [facility] HospitalHoxjsxhHRZGTGPYZH0342-72-59 09:06:00 Test Item Value Reference Range Interpretation Comments RBC (test code = RBC) 2.77 4.20-5.40 [facility] HospitalSwhlegdODDGEEWEUA8538-98-97 09:06:00 Test Item Value Reference Range Interpretation Comments WBC (test code = WBC) 8.1 3.7-10.4 [facility] HospitalIpjllepILWWGCFGIJ4679-68-96 09:06:00 Test Item Value Reference Range Interpretation Comments MPV (test code = MPV) 9.8 7.4-10.4 [facility] HospitalMxjxqueRPKVHVBQWJ3533-86-60 09:06:00 Test Item Value Reference Range Interpretation Comments Platelet (test code = Platelet) 138 133-450 [facility] HospitalTxurqmwCONKMJUNJL7618-02-78 09:06:00 Test Item Value Reference Range Interpretation Comments MCV (test code = MCV) 78.7 80.0-98.0 [facility] HospitalZovilviDPUSHGPTJO6733-95-74 09:06:00 Test Item Value Reference Range Interpretation Comments RDW (test code = RDW) 16.6 11.5-14.5 [facility] HospitalBvbbdtlNGVLZCTUQM7806-54-56 09:06:00 Test Item Value Reference Range Interpretation Comments MCHC (test code = MCHC) 33.4 32.0-36.0 [facility] HospitalIpwnwxiAQINSHXVWO6425-52-51 09:06:00 Test Item Value Reference Range Interpretation Comments Hct (test code = Hct) 21.8 36.0-48.0 [facility] HospitalYlceusbGQFSSSEHQM0946-06-14 09:06:00 Test Item Value Reference Range Interpretation Comments MCH (test code = MCH) 26.3 pg 27.0-31.0 [facility] HospitalQptjajzYDCDFCBMYP6380-63-13 09:06:00 Test Item Value Reference Range Interpretation Comments Microcyte (test code = 1+ *ABN*(06/10/16 Microcyte) 4:06 AM) [facility] HospitalEkymdueUAUEOJZJXD9593-40-33 09:06:00 Test Item Value Reference Range Interpretation Comments Segs-Bands # (test code = Segs-Bands #) 5.6 1.5-8.1 [facility] HospitalHwzowhlMNCARKBYLS6822-58-39 09:06:00 Test Item Value Reference Range Interpretation Comments Eosinophils # (test code 0.1 See_Comment [A utomated message] The = Eosinophils #) system whic h generated this result tra nsmitted reference range : <=0.5. The reference r lina was not used to int erpret this result as normal/abnormal . [facility] HospitalTsfhbteYFYFJXALAS5198-08-69 09:06:00 Test Item Value Reference Range Interpretation Comments Monocytes # (test code 0.5 See_Comment [Aut omated message] The = Monocytes #) system which generated this result tra nsmitted reference range : <=0.8. The reference r lina was not used to int erpret this result as normal/abnormal . [facility] HospitalDhdwpkrFJYCTIYMQV9662-14-12 09:06:00 Test Item Value Reference Range Interpretation Comments Basophils (test code = 0.3 See_Comment [Aut omated message] The Basophils) system which ge nerated this result tra nsmitted reference range : <=1.0. The reference r lina was not used to int erpret this result as normal/abnormal . [facility] HospitalJgtrlqlWNBSHOIDIW7273-21-73 09:06:00 Test Item Value Reference Range Interpretation Comments Lymphocytes # (test code = Lymphocytes 1.9 1.0-5.5 #) [facility] HospitalFtpmdlhYURJNWTDON3626-14-76 09:06:00 Test Item Value Reference Range Interpretation Comments Eosinophils (test code = 0.9 See_Comment [A utomated message] The Eosinophils) system which ge nerated this result tra nsmitted reference range : <=4.0. The reference r lina was not used to int erpret this result as normal/abnormal . [facility] HospitalQkhlzmeYBDSGKLENY4499-30-63 09:06:00 Test Item Value Reference Range Interpretation Comments Monocytes (test code = Monocytes) 6.5 2.0-12.0 [facility] HospitalKduehtjZLRARGMBWD2210-34-46 09:06:00 Test Item Value Reference Range Interpretation Comments Lymphocytes (test code = Lymphocytes) 23.3 20.0-40.0 [facility] HospitalNomubqgVOVRSLVXTD5025-49-13 09:06:00 Test Item Value Reference Range Interpretation Comments Segs (test code = Segs) 69.0 45.0-75.0 [facility]2017-04-27 09:37:00 Test Item Value Reference Range Interpretation Comments eGFR (test code = eGFR) 84 [facility]2017-04-27 09:37:00 Test Item Value Reference Range Interpretation Comments Creatinine Lvl (test code = Creatinine 0.70 0.50-1.40 Lvl) [facility]2017-04-27 09:37:00 Test Item Value Reference Range Interpretation Comments Potassium Lvl (test code = Potassium 3.8 3.5-5.1 Lvl) [facility]2017-04-27 09:37:00 Test Item Value Reference Range Interpretation Comments Sodium Lvl (test code = Sodium Lvl) 140 135-145 [facility]2017-04-27 09:37:00 Test Item Value Reference Range Interpretation Comments Glucose Lvl (test code = Glucose Lvl) 215 70-99 [facility]2017-04-27 09:37:00 Test Item Value Reference Range Interpretation Comments BUN (test code = BUN) 20 7-22 [facility]2017-04-27 09:37:00 Test Item Value Reference Range Interpretation Comments Calcium Lvl (test code = Calcium Lvl) 7.6 8.5-10.5 [facility]2017-04-27 09:37:00 Test Item Value Reference Range Interpretation Comments Chloride Lvl (test code = Chloride Lvl) 105 95-109 [facility]2017-04-27 09:37:00 Test Item Value Reference Range Interpretation Comments AGAP (test code = AGAP) 10.8 10.0-20.0 [facility]2017-04-27 09:37:00 Test Item Value Reference Range Interpretation Comments CO2 (test code = CO2) 28 24-32 [facility] HospitalViteswpOSWYHWMCHU1075-23-01 09:37:00 Test Item Value Reference Range Interpretation Comments RBC (test code = RBC) 3.07 4.20-5.40 [facility] HospitalMijbpkcAYQGPBXPQO3177-65-84 09:37:00 Test Item Value Reference Range Interpretation Comments MCV (test code = MCV) 77.3 80.0-98.0 [facility] HospitalUwtkizqNLDZKEYDRI1274-57-30 09:37:00 Test Item Value Reference Range Interpretation Comments WBC (test code = WBC) 9.5 3.7-10.4 [facility] HospitalAuwxpboFEWGSRIBQW8320-02-64 09:37:00 Test Item Value Reference Range Interpretation Comments MCHC (test code = MCHC) 33.5 32.0-36.0 [facility] HospitalRnyllglQGOPKOQLKP1701-01-58 09:37:00 Test Item Value Reference Range Interpretation Comments RDW (test code = RDW) 16.4 11.5-14.5 [facility] HospitalBcdabuoRTTSNQRWPB6705-00-11 09:37:00 Test Item Value Reference Range Interpretation Comments MCH (test code = MCH) 25.9 pg 27.0-31.0 [facility] HospitalXtuscpjEKJCKLMHMT2955-80-05 09:37:00 Test Item Value Reference Range Interpretation Comments Platelet (test code = Platelet) 153 133-450 [facility] HospitalHjzfureEUTLPEJSMG2353-45-53 09:37:00 Test Item Value Reference Range Interpretation Comments MPV (test code = MPV) 9.1 7.4-10.4 [facility] HospitalPeeyywzICXPKSCBWQ9010-85-12 09:37:00 Test Item Value Reference Range Interpretation Comments Microcyte (test code = 1+ *ABN*(06/09/16 Microcyte) 4:37 AM) [facility] HospitalUvkllojSJKJKEWHWO1080-57-74 09:37:00 Test Item Value Reference Range Interpretation Comments Lymphocytes (test code = Lymphocytes) 13.1 20.0-40.0 [facility] HospitalXblhdwwIKTSVVFTDD8398-90-44 09:37:00 Test Item Value Reference Range Interpretation Comments Monocytes (test code = Monocytes) 7.3 2.0-12.0 [facility] HospitalNuotawuHALZDTBJLN1327-49-91 09:37:00 Test Item Value Reference Range Interpretation Comments Segs-Bands # (test code = Segs-Bands #) 7.6 1.5-8.1 [facility] HospitalZnjenouXKWVAQTNDN9112-90-13 09:37:00 Test Item Value Reference Range Interpretation Comments Basophils (test code = 0.2 See_Comment [Aut omated message] The Basophils) system which ge nerated this result tra nsmitted reference range : <=1.0. The reference r lina was not used to int erpret this result as normal/abnormal . [facility] HospitalOktromlSXXSTMPLQA8000-47-68 09:37:00 Test Item Value Reference Range Interpretation Comments Segs (test code = Segs) 79.4 45.0-75.0 [facility] HospitalXxymslzUIVBWYTYTK7921-41-72 09:37:00 Test Item Value Reference Range Interpretation Comments Lymphocytes # (test code = Lymphocytes 1.3 1.0-5.5 #) [facility] HospitalNhxnfdjEIIGJXOQXC3837-96-35 09:37:00 Test Item Value Reference Range Interpretation Comments Monocytes # (test code 0.7 See_Comment [Aut omated message] The = Monocytes #) system which generated this result tra nsmitted reference range : <=0.8. The reference r lina was not used to int erpret this result as normal/abnormal . [facility]2017-04-27 09:37:00 Test Item Value Reference Range Interpretation Comments eGFR (test code = eGFR) 84 [facility]2017-04-27 09:37:00 Test Item Value Reference Range Interpretation Comments Creatinine Lvl (test code = Creatinine 0.70 0.50-1.40 Lvl) [facility]2017-04-27 09:37:00 Test Item Value Reference Range Interpretation Comments Potassium Lvl (test code = Potassium 3.8 3.5-5.1 Lvl) [facility]2017-04-27 09:37:00 Test Item Value Reference Range Interpretation Comments Sodium Lvl (test code = Sodium Lvl) 140 135-145 [facility]2017-04-27 09:37:00 Test Item Value Reference Range Interpretation Comments Glucose Lvl (test code = Glucose Lvl) 215 70-99 [facility]2017-04-27 09:37:00 Test Item Value Reference Range Interpretation Comments eGFR (test code = eGFR) 84 [facility]2017-04-27 09:37:00 Test Item Value Reference Range Interpretation Comments Creatinine Lvl (test code = Creatinine 0.70 0.50-1.40 Lvl) [facility]2017-04-27 09:37:00 Test Item Value Reference Range Interpretation Comments Potassium Lvl (test code = Potassium 3.8 3.5-5.1 Lvl) [facility]2017-04-27 09:37:00 Test Item Value Reference Range Interpretation Comments Sodium Lvl (test code = Sodium Lvl) 140 135-145 [facility]2017-04-27 09:37:00 Test Item Value Reference Range Interpretation Comments Glucose Lvl (test code = Glucose Lvl) 215 70-99 [facility]2017-04-27 09:37:00 Test Item Value Reference Range Interpretation Comments BUN (test code = BUN) 20 - [facility]2017-04-27 09:37:00 Test Item Value Reference Range Interpretation Comments Calcium Lvl (test code = Calcium Lvl) 7.6 8.5-10.5 [facility]2017-04-27 09:37:00 Test Item Value Reference Range Interpretation Comments Chloride Lvl (test code = Chloride Lvl) 105 95-109 [facility]2017-04-27 09:37:00 Test Item Value Reference Range Interpretation Comments BUN (test code = BUN) 20 - [facility]2017-04-27 09:37:00 Test Item Value Reference Range Interpretation Comments AGAP (test code = AGAP) 10.8 10.0-20.0 [facility]2017-04-27 09:37:00 Test Item Value Reference Range Interpretation Comments CO2 (test code = CO2) 28 24-32 [facility] HospitalZouxqfqIAYQNISTVK8981-39-36 09:37:00 Test Item Value Reference Range Interpretation Comments RBC (test code = RBC) 3.07 4.20-5.40 [facility] HospitalDtvqfpbNVPIVSUDHB7956-21-52 09:37:00 Test Item Value Reference Range Interpretation Comments MCV (test code = MCV) 77.3 80.0-98.0 [facility] HospitalWngpbonKEGKOXDQEM6934-11-81 09:37:00 Test Item Value Reference Range Interpretation Comments WBC (test code = WBC) 9.5 3.7-10.4 [facility] HospitalDteekciGHJKLVBZMA4608-62-32 09:37:00 Test Item Value Reference Range Interpretation Comments MCHC (test code = MCHC) 33.5 32.0-36.0 [facility] HospitalPxoraqmWGFYPKSIIL8427-31-98 09:37:00 Test Item Value Reference Range Interpretation Comments RDW (test code = RDW) 16.4 11.5-14.5 [facility] HospitalDsuuyicPATWQJSTYH6393-82-87 09:37:00 Test Item Value Reference Range Interpretation Comments MCH (test code = MCH) 25.9 pg 27.0-31.0 [facility] HospitalUgccyvoXKUVOROZTM9051-94-68 09:37:00 Test Item Value Reference Range Interpretation Comments Platelet (test code = Platelet) 153 133-450 [facility] HospitalRemvaxpVPLJEEBFYH7915-23-37 09:37:00 Test Item Value Reference Range Interpretation Comments MPV (test code = MPV) 9.1 7.4-10.4 [facility]2017-04-27 09:37:00 Test Item Value Reference Range Interpretation Comments Calcium Lvl (test code = Calcium Lvl) 7.6 8.5-10.5 [facility] HospitalGqzckquIEXDAHUGRE2518-68-23 09:37:00 Test Item Value Reference Range Interpretation Comments Microcyte (test code = 1+ *ABN*(06/09/16 Microcyte) 4:37 AM) [facility] HospitalZgboafmTEZTZLXZUH9387-18-39 09:37:00 Test Item Value Reference Range Interpretation Comments Lymphocytes (test code = Lymphocytes) 13.1 20.0-40.0 [facility] HospitalEainpdiGDBMKRZNGY6812-77-80 09:37:00 Test Item Value Reference Range Interpretation Comments Monocytes (test code = Monocytes) 7.3 2.0-12.0 [facility] HospitalHqytlmgCPBYPIMDZJ5117-99-03 09:37:00 Test Item Value Reference Range Interpretation Comments Segs-Bands # (test code = Segs-Bands #) 7.6 1.5-8.1 [facility] HospitalBslghwoCEBFFHFXND7137-19-89 09:37:00 Test Item Value Reference Range Interpretation Comments Basophils (test code = 0.2 See_Comment [Aut omated message] The Basophils) system which ge nerated this result tra nsmitted reference range : <=1.0. The reference r lina was not used to int erpret this result as normal/abnormal . [facility] HospitalKcwwndwMQEAUFBLRG6851-62-98 09:37:00 Test Item Value Reference Range Interpretation Comments Segs (test code = Segs) 79.4 45.0-75.0 [facility] HospitalNrpjbfuVJJSLKMJYP4653-55-29 09:37:00 Test Item Value Reference Range Interpretation Comments Lymphocytes # (test code = Lymphocytes 1.3 1.0-5.5 #) [facility] HospitalDppelweGQSFGDWDPA4906-62-03 09:37:00 Test Item Value Reference Range Interpretation Comments Monocytes # (test code 0.7 See_Comment [Aut omated message] The = Monocytes #) system which generated this result tra nsmitted reference range : <=0.8. The reference r lina was not used to int erpret this result as normal/abnormal . [facility]2017-04-27 09:37:00 Test Item Value Reference Range Interpretation Comments Chloride Lvl (test code = Chloride Lvl) 105 95-109 [facility]2017-04-27 09:37:00 Test Item Value Reference Range Interpretation Comments AGAP (test code = AGAP) 10.8 10.0-20.0 [facility] WHOPW0644-58-93 09:37:00 Test Item Value Reference Range Interpretation Comments CO2 (test code = CO2) 28 24-32 [facility] HospitalAmgplxwOUTQIWEOBZ0061-21-81 09:37:00 Test Item Value Reference Range Interpretation Comments RBC (test code = RBC) 3.07 4.20-5.40 [facility] HospitalFyrpxavDNYSRXKYAI6469-86-57 09:37:00 Test Item Value Reference Range Interpretation Comments MCV (test code = MCV) 77.3 80.0-98.0 [facility] HospitalMrwvfwzNDRGQFKPIS9768-08-83 09:37:00 Test Item Value Reference Range Interpretation Comments WBC (test code = WBC) 9.5 3.7-10.4 [facility] HospitalKnegubmIOJCQXHQEM6741-87-13 09:37:00 Test Item Value Reference Range Interpretation Comments MCHC (test code = MCHC) 33.5 32.0-36.0 [facility] HospitalZcuenwkACCCUCNVNU9249-71-27 09:37:00 Test Item Value Reference Range Interpretation Comments RDW (test code = RDW) 16.4 11.5-14.5 [facility] HospitalPmzzzkgDFRTUOSFGS4800-30-57 09:37:00 Test Item Value Reference Range Interpretation Comments MCH (test code = MCH) 25.9 pg 27.0-31.0 [facility] HospitalUroaewwBTFIOGAPIB8198-00-98 09:37:00 Test Item Value Reference Range Interpretation Comments Platelet (test code = Platelet) 153 133-450 [facility] HospitalWnxiewmYDLCEHSRQZ3052-24-94 09:37:00 Test Item Value Reference Range Interpretation Comments MPV (test code = MPV) 9.1 7.4-10.4 [facility] HospitalAfnqqyuTVAHJVZXNT8180-63-18 09:37:00 Test Item Value Reference Range Interpretation Comments Microcyte (test code = 1+ *ABN*(06/09/16 Microcyte) 4:37 AM) [facility] HospitalPzodwkuGYGNFJOAYI5035-93-72 09:37:00 Test Item Value Reference Range Interpretation Comments Lymphocytes (test code = Lymphocytes) 13.1 20.0-40.0 [facility] HospitalWndmhcdTJIHZGHYXY2710-68-23 09:37:00 Test Item Value Reference Range Interpretation Comments Monocytes (test code = Monocytes) 7.3 2.0-12.0 [facility] HospitalQjqjkvbLCSHOCOQAL0957-88-99 09:37:00 Test Item Value Reference Range Interpretation Comments Segs-Bands # (test code = Segs-Bands #) 7.6 1.5-8.1 [facility] HospitalEffdxjxOAIPTGXKHG5296-31-25 09:37:00 Test Item Value Reference Range Interpretation Comments Basophils (test code = 0.2 See_Comment [Aut omated message] The Basophils) system which ge nerated this result tra nsmitted reference range : <=1.0. The reference r lina was not used to int erpret this result as normal/abnormal . [facility] HospitalYasxumiOOFRUEPXPI7458-80-95 09:37:00 Test Item Value Reference Range Interpretation Comments Segs (test code = Segs) 79.4 45.0-75.0 [facility] HospitalGmipvxpCOBPDCDRHY9775-03-60 09:37:00 Test Item Value Reference Range Interpretation Comments Lymphocytes # (test code = Lymphocytes 1.3 1.0-5.5 #) [facility] HospitalIseybbhLENSWGJBTS1162-31-68 09:37:00 Test Item Value Reference Range Interpretation Comments Monocytes # (test code 0.7 See_Comment [Aut omated message] The = Monocytes #) system which generated this result tra nsmitted reference range : <=0.8. The reference r lina was not used to int erpret this result as normal/abnormal . [facility] EIEVQXZA0485-69-49 18:43:00 Test Item Value Reference Range Interpretation Comments MRSA by PCR (test Negative (06/08/16 1:43 code = MRSA by PCR) PM) [facility] [id number] 18:43:00 Test Item Value Reference Range Interpretation Comments MRSA by PCR (test Negative (06/08/16 1:43 code = MRSA by PCR) PM) [facility] [id number] 18:43:00 Test Item Value Reference Range Interpretation Comments MRSA by PCR (test Negative (06/08/16 1:43 code = MRSA by PCR) PM) [facility] IUTBMFF5471-54-33 12:38:00 Test Item Value Reference Range Interpretation Comments Antibody Scrn (test Negative (06/08/16 7:38 code = Antibody Scrn) AM) [facility] [id number] 12:38:00 Test Item Value Reference Range Interpretation Comments ABO/Rh (test code = ABO/Rh) O POS [facility] HospitalMywlfxtMYBBDMBFBI7374-46-61 12:38:00 Test Item Value Reference Range Interpretation Comments INR (test code = INR) 1.04 0.85-1.17 [facility] HospitalRstjbpeKFZKYKIRDE2533-52-89 12:38:00 Test Item Value Reference Range Interpretation Comments PT (test code = PT) 13.8 s 12.0-14.7 [facility] HospitalXjjumvgZGACSHTPRI3018-80-25 12:38:00 Test Item Value Reference Range Interpretation Comments PTT (test code = PTT) 30.6 s 22.9-35.8 [facility] HospitalDpyvepfSJCMAVELZV7906-32-63 12:38:00 Test Item Value Reference Range Interpretation Comments Eosinophils # (test code 0.2 See_Comment [A utomated message] The = Eosinophils #) system whic h generated this result tra nsmitted reference range : <=0.5. The reference r lina was not used to int erpret this result as normal/abnormal . [facility] HospitalEhkhgwzQCXXRZILVC7064-86-75 12:38:00 Test Item Value Reference Range Interpretation Comments Eosinophils (test code = 1.6 See_Comment [A utomated message] The Eosinophils) system which ge nerated this result tra nsmitted reference range : <=4.0. The reference r lina was not used to int erpret this result as normal/abnormal . [facility] [id number] 12:38:00 Test Item Value Reference Range Interpretation Comments Antibody Scrn (test Negative (06/08/16 7:38 code = Antibody Scrn) AM) [facility] [id number] 12:38:00 Test Item Value Reference Range Interpretation Comments ABO/Rh (test code = ABO/Rh) O POS [facility] HospitalPzgfxsdHEEMQQQOGM5297-26-93 12:38:00 Test Item Value Reference Range Interpretation Comments INR (test code = INR) 1.04 0.85-1.17 [facility] HospitalGskmxfkNWXGTNLWPB5349-47-38 12:38:00 Test Item Value Reference Range Interpretation Comments PT (test code = PT) 13.8 s 12.0-14.7 [facility] HospitalVbolnzbHNGOBOUJRI0814-19-69 12:38:00 Test Item Value Reference Range Interpretation Comments PTT (test code = PTT) 30.6 s 22.9-35.8 [facility] HospitalGenbmspWZCPLPEQJP7166-99-21 12:38:00 Test Item Value Reference Range Interpretation Comments Eosinophils # (test code 0.2 See_Comment [A utomated message] The = Eosinophils #) system whic h generated this result tra nsmitted reference range : <=0.5. The reference r lina was not used to int erpret this result as normal/abnormal . [facility]skyqxzDPBYSNHLHF4870-99-05 12:38:00 Test Item Value Reference Range Interpretation Comments Eosinophils (test code = 1.6 See_Comment [A utomated message] The Eosinophils) system which ge nerated this result tra nsmitted reference range : <=4.0. The reference r lina was not used to int erpret this result as normal/abnormal . [facility] [id number] 12:38:00 Test Item Value Reference Range Interpretation Comments Antibody Scrn (test Negative (06/08/16 7:38 code = Antibody Scrn) AM) [facility] [id number] 12:38:00 Test Item Value Reference Range Interpretation Comments ABO/Rh (test code = ABO/Rh) O POS [facility] HospitalFdrackrRPDTHMLCGX6096-55-17 12:38:00 Test Item Value Reference Range Interpretation Comments INR (test code = INR) 1.04 0.85-1.17 [facility] HospitalVljlrubGSVBYLFPRY8957-78-19 12:38:00 Test Item Value Reference Range Interpretation Comments PT (test code = PT) 13.8 s 12.0-14.7 [facility] HospitalYjzxsbtNXWBKGRRSF4895-07-96 12:38:00 Test Item Value Reference Range Interpretation Comments PTT (test code = PTT) 30.6 s 22.9-35.8 [facility] HospitalAjwhcklFZFNGUARKX6917-13-48 12:38:00 Test Item Value Reference Range Interpretation Comments Eosinophils # (test code 0.2 See_Comment [A utomated message] The = Eosinophils #) system whic h generated this result tra nsmitted reference range : <=0.5. The reference r lina was not used to int erpret this result as normal/abnormal . [facility] HospitalOlzdeebEGFVONESQS3801-49-70 12:38:00 Test Item Value Reference Range Interpretation Comments Eosinophils (test code = 1.6 See_Comment [A utomated message] The Eosinophils) system which ge nerated this result tra nsmitted reference range : <=4.0. The reference r lina was not used to int erpret this result as normal/abnormal . [facility]2017-04-13 14:42:00 Test Item Value Reference Range Interpretation Comments eGFR (test code = eGFR) 62 [facility]2017-04-13 14:42:00 Test Item Value Reference Range Interpretation Comments Sodium Lvl (test code = Sodium Lvl) 140 135-145 [facility]2017-04-13 14:42:00 Test Item Value Reference Range Interpretation Comments Creatinine Lvl (test code = Creatinine 0.90 0.50-1.40 Lvl) [facility]2017-04-13 14:42:00 Test Item Value Reference Range Interpretation Comments Chloride Lvl (test code = Chloride Lvl) 102 95-109 [facility]2017-04-13 14:42:00 Test Item Value Reference Range Interpretation Comments Potassium Lvl (test code = Potassium 3.6 3.5-5.1 Lvl) [facility]2017-04-13 14:42:00 Test Item Value Reference Range Interpretation Comments CO2 (test code = CO2) 30 24-32 [facility]2017-04-13 14:42:00 Test Item Value Reference Range Interpretation Comments Calcium Lvl (test code = Calcium Lvl) 8.9 8.5-10.5 [facility]2017-04-13 14:42:00 Test Item Value Reference Range Interpretation Comments Glucose Lvl (test code = Glucose Lvl) 185 70-99 [place] 976717-04-13 14:42:00 Test Item Value Reference Range Interpretation Comments BUN (test code = BUN) 20 7-22 [facility]2017-04-13 14:42:00 Test Item Value Reference Range Interpretation Comments AGAP (test code = AGAP) 11.6 10.0-20.0 [facility] HospitalYecmhhjBMSUPYTNBM5449-06-41 14:42:00 Test Item Value Reference Range Interpretation Comments Microcyte (test code = 1+ *ABN*(05/26/16 Microcyte) 9:42 AM) [facility] HospitalGsimhxkYVPVZBDWUE7980-20-47 14:42:00 Test Item Value Reference Range Interpretation Comments Monocytes # (test code 0.5 See_Comment [Aut omated message] The = Monocytes #) system which generated this result tra nsmitted reference range : <=0.8. The reference r lina was not used to int erpret this result as normal/abnormal . [facility] HospitalVpkxextRVZXLKTDTR7945-67-75 14:42:00 Test Item Value Reference Range Interpretation Comments Eosinophils # (test code 0.2 See_Comment [A utomated message] The = Eosinophils #) system whic h generated this result tra nsmitted reference range : <=0.5. The reference r lina was not used to int erpret this result as normal/abnormal . [facility] HospitalJzwskakGTSTJAYPOV6841-32-05 14:42:00 Test Item Value Reference Range Interpretation Comments Lymphocytes # (test code = Lymphocytes 1.6 1.0-5.5 #) [facility] HospitalHqpstydKUCJXRLVJA1008-61-09 14:42:00 Test Item Value Reference Range Interpretation Comments Segs-Bands # (test code = Segs-Bands #) 6.9 1.5-8.1 [facility] HospitalUgewwwvEIMVHSVRAU4656-13-17 14:42:00 Test Item Value Reference Range Interpretation Comments Basophils (test code = 0.4 See_Comment [Aut omated message] The Basophils) system which ge nerated this result tra nsmitted reference range : <=1.0. The reference r lina was not used to int erpret this result as normal/abnormal . [facility] HospitalJkprnytHVLIKNLHIC3378-40-27 14:42:00 Test Item Value Reference Range Interpretation Comments Monocytes (test code = Monocytes) 4.9 2.0-12.0 [place] 678177-04-13 14:42:00 Test Item Value Reference Range Interpretation Comments Eosinophils (test code = 1.8 See_Comment [A utomated message] The Eosinophils) system which ge nerated this result tra nsmitted reference range : <=4.0. The reference r lina was not used to int erpret this result as normal/abnormal . [facility] HospitalXwdgsilXOGVCJJHFH3063-41-25 14:42:00 Test Item Value Reference Range Interpretation Comments Lymphocytes (test code = Lymphocytes) 17.4 20.0-40.0 [facility] HospitalAjjiybsCROTRQQHYG6828-08-58 14:42:00 Test Item Value Reference Range Interpretation Comments Segs (test code = Segs) 75.5 45.0-75.0 [facility] HospitalHstzptdJRWPVYYWRW6321-75-99 14:42:00 Test Item Value Reference Range Interpretation Comments Platelet (test code = Platelet) 169 133-450 [facility] HospitalQpyfrhtGZCJTTSOSS7906-37-73 14:42:00 Test Item Value Reference Range Interpretation Comments MCH (test code = MCH) 25.9 pg 27.0-31.0 [facility] HospitalZbuuetuCDNESGKHUU3072-89-65 14:42:00 Test Item Value Reference Range Interpretation Comments MPV (test code = MPV) 9.8 7.4-10.4 [facility] HospitalLwkibndUUWIXQRRIE2665-01-58 14:42:00 Test Item Value Reference Range Interpretation Comments RDW (test code = RDW) 16.2 11.5-14.5 [facility] HospitalUsvmvafSKJXWFBBVA3351-43-56 14:42:00 Test Item Value Reference Range Interpretation Comments MCHC (test code = MCHC) 33.0 32.0-36.0 [facility] HospitalChoemjtVIMMJHGFVT2696-07-69 14:42:00 Test Item Value Reference Range Interpretation Comments Hct (test code = Hct) 37.2 36.0-48.0 [facility] HospitalBwkepqvCCUTASASOD8186-18-40 14:42:00 Test Item Value Reference Range Interpretation Comments MCV (test code = MCV) 78.3 80.0-98.0 [facility] HospitalKmxogunKGKZYGXWUP5445-72-41 14:42:00 Test Item Value Reference Range Interpretation Comments Hgb (test code = Hgb) 12.3 12.0-16.0 [facility] HospitalZsutinbISBXTZRBCQ2944-84-09 14:42:00 Test Item Value Reference Range Interpretation Comments RBC (test code = RBC) 4.75 4.20-5.40 [facility] HospitalNbxibxeDSQNPZVGSJ0718-19-55 14:42:00 Test Item Value Reference Range Interpretation Comments WBC (test code = WBC) 9.2 3.7-10.4 [facility] HospitalTvfpzzwVFTMBKQJBQ0823-65-10 14:42:00 Test Item Value Reference Range Interpretation Comments PT (test code = PT) 13.8 s 12.0-14.7 [facility] HospitalHpzdcwmJPIVPBETNR9905-34-03 14:42:00 Test Item Value Reference Range Interpretation Comments INR (test code = INR) 1.04 0.85-1.17 [facility] HospitalAhsxnylRQFMHITKAW7149-26-58 14:42:00 Test Item Value Reference Range Interpretation Comments PTT (test code = PTT) 32.1 s 22.9-35.8 [facility]2017-04-13 14:42:00 Test Item Value Reference Range Interpretation Comments eGFR (test code = eGFR) 62 [facility]2017-04-13 14:42:00 Test Item Value Reference Range Interpretation Comments Sodium Lvl (test code = Sodium Lvl) 140 135-145 [facility]2017-04-13 14:42:00 Test Item Value Reference Range Interpretation Comments Creatinine Lvl (test code = Creatinine 0.90 0.50-1.40 Lvl) [facility]2017-04-13 14:42:00 Test Item Value Reference Range Interpretation Comments Chloride Lvl (test code = Chloride Lvl) 102 95-109 [facility]2017-04-13 14:42:00 Test Item Value Reference Range Interpretation Comments Potassium Lvl (test code = Potassium 3.6 3.5-5.1 Lvl) [facility]2017-04-13 14:42:00 Test Item Value Reference Range Interpretation Comments CO2 (test code = CO2) 30 24-32 [facility]2017-04-13 14:42:00 Test Item Value Reference Range Interpretation Comments Calcium Lvl (test code = Calcium Lvl) 8.9 8.5-10.5 [facility]2017-04-13 14:42:00 Test Item Value Reference Range Interpretation Comments Glucose Lvl (test code = Glucose Lvl) 185 70-99 [place] 976717-04-13 14:42:00 Test Item Value Reference Range Interpretation Comments BUN (test code = BUN) 20 7-22 [facility]2017-04-13 14:42:00 Test Item Value Reference Range Interpretation Comments AGAP (test code = AGAP) 11.6 10.0-20.0 [facility] HospitalGdjdygqLUJUEASFTR8826-00-90 14:42:00 Test Item Value Reference Range Interpretation Comments Microcyte (test code = 1+ *ABN*(05/26/16 Microcyte) 9:42 AM) [facility] HospitalDqeacwfTJYXTGOEIV7913-64-69 14:42:00 Test Item Value Reference Range Interpretation Comments Monocytes # (test code 0.5 See_Comment [Aut omated message] The = Monocytes #) system which generated this result tra nsmitted reference range : <=0.8. The reference r lina was not used to int erpret this result as normal/abnormal . [facility] HospitalCfijihbDSVXZPLVFX2014-94-31 14:42:00 Test Item Value Reference Range Interpretation Comments Eosinophils # (test code 0.2 See_Comment [A utomated message] The = Eosinophils #) system whic h generated this result tra nsmitted reference range : <=0.5. The reference r lina was not used to int erpret this result as normal/abnormal . [facility] HospitalHmfwsdcJCMMCWRBOU8413-79-17 14:42:00 Test Item Value Reference Range Interpretation Comments Lymphocytes # (test code = Lymphocytes 1.6 1.0-5.5 #) [facility] HospitalDirjcdhCMYQQFBTNH6104-44-75 14:42:00 Test Item Value Reference Range Interpretation Comments Segs-Bands # (test code = Segs-Bands #) 6.9 1.5-8.1 [facility] HospitalAsvwpbmBBCEGPZSHW9198-96-19 14:42:00 Test Item Value Reference Range Interpretation Comments Basophils (test code = 0.4 See_Comment [Aut omated message] The Basophils) system which ge nerated this result tra nsmitted reference range : <=1.0. The reference r lina was not used to int erpret this result as normal/abnormal . [facility] HospitalWrzkmhsBCDIHUTDSF0329-30-36 14:42:00 Test Item Value Reference Range Interpretation Comments Monocytes (test code = Monocytes) 4.9 2.0-12.0 [place] 678177-04-13 14:42:00 Test Item Value Reference Range Interpretation Comments Eosinophils (test code = 1.8 See_Comment [A utomated message] The Eosinophils) system which ge nerated this result tra nsmitted reference range : <=4.0. The reference r lina was not used to int erpret this result as normal/abnormal . [facility] HospitalWomurqbWMPALFIMTD1033-47-85 14:42:00 Test Item Value Reference Range Interpretation Comments Lymphocytes (test code = Lymphocytes) 17.4 20.0-40.0 [facility] HospitalDlbualyBAUAZFDZTV4085-04-90 14:42:00 Test Item Value Reference Range Interpretation Comments Segs (test code = Segs) 75.5 45.0-75.0 [facility] HospitalYvgoedaQBWWAKYAGZ2873-96-81 14:42:00 Test Item Value Reference Range Interpretation Comments Platelet (test code = Platelet) 169 133-450 [facility] HospitalRhaiuphGLHLHSNVEF0811-19-07 14:42:00 Test Item Value Reference Range Interpretation Comments MCH (test code = MCH) 25.9 pg 27.0-31.0 [facility] HospitalPlaanshPTEZVFTXOW6552-52-74 14:42:00 Test Item Value Reference Range Interpretation Comments MPV (test code = MPV) 9.8 7.4-10.4 [facility] HospitalDxjwscnVLFCBIFGVC7304-88-89 14:42:00 Test Item Value Reference Range Interpretation Comments RDW (test code = RDW) 16.2 11.5-14.5 [facility] HospitalAtnygbhJPMKDJGYVX4904-67-56 14:42:00 Test Item Value Reference Range Interpretation Comments MCHC (test code = MCHC) 33.0 32.0-36.0 [facility] HospitalIkgyeabEHRTJKFHOO8442-57-25 14:42:00 Test Item Value Reference Range Interpretation Comments Hct (test code = Hct) 37.2 36.0-48.0 [facility] HospitalVykgopyJKWPEQPCCM6419-01-91 14:42:00 Test Item Value Reference Range Interpretation Comments MCV (test code = MCV) 78.3 80.0-98.0 [facility] HospitalZeluiqaGMIMSMYIRG7023-69-32 14:42:00 Test Item Value Reference Range Interpretation Comments Hgb (test code = Hgb) 12.3 12.0-16.0 [facility] HospitalIhtmuxzHURXYWRQFG3601-36-11 14:42:00 Test Item Value Reference Range Interpretation Comments RBC (test code = RBC) 4.75 4.20-5.40 [facility] HospitalSxfefutOOSUOEZKSJ1574-22-18 14:42:00 Test Item Value Reference Range Interpretation Comments WBC (test code = WBC) 9.2 3.7-10.4 [facility] HospitalOwsxbjsUJNHWYFAUA9692-93-19 14:42:00 Test Item Value Reference Range Interpretation Comments PT (test code = PT) 13.8 s 12.0-14.7 [facility] HospitalZbnqesfBBJCQHACVQ8142-39-02 14:42:00 Test Item Value Reference Range Interpretation Comments INR (test code = INR) 1.04 0.85-1.17 [facility] HospitalOqsjrryJECFYJOUGC7014-95-26 14:42:00 Test Item Value Reference Range Interpretation Comments PTT (test code = PTT) 32.1 s 22.9-35.8 [facility]2017-04-13 14:42:00 Test Item Value Reference Range Interpretation Comments eGFR (test code = eGFR) 62 [facility]2017-04-13 14:42:00 Test Item Value Reference Range Interpretation Comments Sodium Lvl (test code = Sodium Lvl) 140 135-145 [facility]2017-04-13 14:42:00 Test Item Value Reference Range Interpretation Comments Creatinine Lvl (test code = Creatinine 0.90 0.50-1.40 Lvl) [facility]2017-04-13 14:42:00 Test Item Value Reference Range Interpretation Comments Chloride Lvl (test code = Chloride Lvl) 102 95-109 [facility]2017-04-13 14:42:00 Test Item Value Reference Range Interpretation Comments Potassium Lvl (test code = Potassium 3.6 3.5-5.1 Lvl) [facility]2017-04-13 14:42:00 Test Item Value Reference Range Interpretation Comments CO2 (test code = CO2) 30 24-32 [facility]2017-04-13 14:42:00 Test Item Value Reference Range Interpretation Comments Calcium Lvl (test code = Calcium Lvl) 8.9 8.5-10.5 [facility]2017-04-13 14:42:00 Test Item Value Reference Range Interpretation Comments Glucose Lvl (test code = Glucose Lvl) 185 70-99 [place] 976717-04-13 14:42:00 Test Item Value Reference Range Interpretation Comments BUN (test code = BUN) 20 7-22 [facility]2017-04-13 14:42:00 Test Item Value Reference Range Interpretation Comments AGAP (test code = AGAP) 11.6 10.0-20.0 [facility] HospitalSkkhdwtPCIWQGNSAN2740-52-23 14:42:00 Test Item Value Reference Range Interpretation Comments Microcyte (test code = 1+ *ABN*(05/26/16 Microcyte) 9:42 AM) [facility] HospitalGzmsphiQTKJONZHFX0399-20-49 14:42:00 Test Item Value Reference Range Interpretation Comments Monocytes # (test code 0.5 See_Comment [Aut omated message] The = Monocytes #) system which generated this result tra nsmitted reference range : <=0.8. The reference r lina was not used to int erpret this result as normal/abnormal . [facility] HospitalRhaptpcADGGHKNFAF1714-46-27 14:42:00 Test Item Value Reference Range Interpretation Comments Eosinophils # (test code 0.2 See_Comment [A utomated message] The = Eosinophils #) system whic h generated this result tra nsmitted reference range : <=0.5. The reference r lina was not used to int erpret this result as normal/abnormal . [facility] HospitalScbvobmOPNWGEAFIH0706-88-18 14:42:00 Test Item Value Reference Range Interpretation Comments Lymphocytes # (test code = Lymphocytes 1.6 1.0-5.5 #) [facility] HospitalPmkvudlEPQWSSILFR7709-56-72 14:42:00 Test Item Value Reference Range Interpretation Comments Segs-Bands # (test code = Segs-Bands #) 6.9 1.5-8.1 [facility] HospitalHzyurruRCUMVBIIAU2356-27-41 14:42:00 Test Item Value Reference Range Interpretation Comments Basophils (test code = 0.4 See_Comment [Aut omated message] The Basophils) system which ge nerated this result tra nsmitted reference range : <=1.0. The reference r lina was not used to int erpret this result as normal/abnormal . [facility] HospitalWhpwzckEXEWOGLEOM6800-80-66 14:42:00 Test Item Value Reference Range Interpretation Comments Monocytes (test code = Monocytes) 4.9 2.0-12.0 [place] 678177-04-13 14:42:00 Test Item Value Reference Range Interpretation Comments Eosinophils (test code = 1.8 See_Comment [A utomated message] The Eosinophils) system which ge nerated this result tra nsmitted reference range : <=4.0. The reference r lina was not used to int erpret this result as normal/abnormal . [facility] HospitalOwybfyyJCHCJAMUGH5240-91-77 14:42:00 Test Item Value Reference Range Interpretation Comments Lymphocytes (test code = Lymphocytes) 17.4 20.0-40.0 [facility] HospitalUcxufljYLGWHTSNWC9935-69-32 14:42:00 Test Item Value Reference Range Interpretation Comments Segs (test code = Segs) 75.5 45.0-75.0 [facility] HospitalGjtsuuvEXJERLMOZN0233-91-81 14:42:00 Test Item Value Reference Range Interpretation Comments Platelet (test code = Platelet) 169 133-450 [facility] HospitalFdrikrsBPEZHCKASS5454-66-32 14:42:00 Test Item Value Reference Range Interpretation Comments MCH (test code = MCH) 25.9 pg 27.0-31.0 [facility] HospitalScggfdxQDQAUZYGUI5621-39-58 14:42:00 Test Item Value Reference Range Interpretation Comments MPV (test code = MPV) 9.8 7.4-10.4 [facility] HospitalFplkuqvGZLUONFEGC9041-36-09 14:42:00 Test Item Value Reference Range Interpretation Comments RDW (test code = RDW) 16.2 11.5-14.5 [facility] HospitalUvuzcjlXRRNNPSRGV6109-97-65 14:42:00 Test Item Value Reference Range Interpretation Comments MCHC (test code = MCHC) 33.0 32.0-36.0 [facility] HospitalWnbopsvDBTOLGUURZ3503-45-47 14:42:00 Test Item Value Reference Range Interpretation Comments Hct (test code = Hct) 37.2 36.0-48.0 [facility] HospitalCoxgzfqBTAZSDSAGE1383-93-17 14:42:00 Test Item Value Reference Range Interpretation Comments MCV (test code = MCV) 78.3 80.0-98.0 [facility] HospitalLbpvmelAHXDVTGHBQ0347-88-11 14:42:00 Test Item Value Reference Range Interpretation Comments Hgb (test code = Hgb) 12.3 12.0-16.0 [facility] HospitalSdpbdxnDOICTKPDJC2268-59-31 14:42:00 Test Item Value Reference Range Interpretation Comments RBC (test code = RBC) 4.75 4.20-5.40 [facility] HospitalHgqkrwvIYKHFSHAPG0053-79-24 14:42:00 Test Item Value Reference Range Interpretation Comments WBC (test code = WBC) 9.2 3.7-10.4 [facility] HospitalEleexyrEIHUNLXMQJ9004-49-75 14:42:00 Test Item Value Reference Range Interpretation Comments PT (test code = PT) 13.8 s 12.0-14.7 [facility] HospitalHsphyjvUCAXATERYV8882-83-74 14:42:00 Test Item Value Reference Range Interpretation Comments INR (test code = INR) 1.04 0.85-1.17 [facility] HospitalGlraecdAXZIRXPBIZ4336-67-76 14:42:00 Test Item Value Reference Range Interpretation Comments PTT (test code = PTT) 32.1 s 22.9-35.8 [facility] GLUCOSE [id number] 20:21:00 Test Item Value Reference Range Interpretation Comments Gluc POC Lifscn (test code = Gluc POC 186 70-99 H Lifscn) [facility] GLUCOSE YBXYISP3952-26-17 20:21:00 Test Item Value Reference Range Interpretation Comments Gluc POC Lifscn (test code = Gluc POC 186 70-99 H Lifscn) [facility] GLUCOSE YANWWXJ9190-80-27 20:21:00 Test Item Value Reference Range Interpretation Comments Gluc POC Lifscn (test code = Gluc POC 186 70-99 H Lifscn) [facility] GLUCOSE [id number] 16:28:00 Test Item Value Reference Range Interpretation Comments Gluc POC Lifscn (test code = Gluc POC 219 70-99 H Lifscn) [facility] GLUCOSE IPPMMKQ3353-72-70 16:28:00 Test Item Value Reference Range Interpretation Comments Gluc POC Lifscn (test code = Gluc POC 219 70-99 H Lifscn) [facility] GLUCOSE CTZDECM6273-03-06 16:28:00 Test Item Value Reference Range Interpretation Comments Gluc POC Lifscn (test code = Gluc POC 219 70-99 H Lifscn) [facility] GLUCOSE [id number] 11:13:00 Test Item Value Reference Range Interpretation Comments Gluc POC Lifscn (test code = Gluc POC 201 70-99 H Lifscn) [facility] GLUCOSE [id number] 11:13:00 Test Item Value Reference Range Interpretation Comments Comment1 (test code = Comment1) Notify RN/ [facility] GLUCOSE [id number] 11:13:00 Test Item Value Reference Range Interpretation Comments Gluc POC Lifscn (test code = Gluc POC 201 70-99 H Lifscn) [facility] GLUCOSE [id number] 11:13:00 Test Item Value Reference Range Interpretation Comments Comment1 (test code = Comment1) Notify RN/ [facility] GLUCOSE [id number] 11:13:00 Test Item Value Reference Range Interpretation Comments Gluc POC Lifscn (test code = Gluc POC 201 70-99 H Lifscn) [facility] GLUCOSE [id number] 11:13:00 Test Item Value Reference Range Interpretation Comments Comment1 (test code = Comment1) Notify RN/ [facility] GLUCOSE [id number] 02:20:00 Test Item Value Reference Range Interpretation Comments Comment1 (test code = Comment1) Notify RN/ [facility] GLUCOSE [id number] 02:20:00 Test Item Value Reference Range Interpretation Comments Comment1 (test code = Comment1) Notify RN/ [facility] GLUCOSE [id number] 02:20:00 Test Item Value Reference Range Interpretation Comments Comment1 (test code = Comment1) Notify RN/ [facility] GLUCOSE [id number] 20:55:00 Test Item Value Reference Range Interpretation Comments Comment1 (test code = Comment1) Notify RN/ [facility] GLUCOSE [id number] 20:55:00 Test Item Value Reference Range Interpretation Comments Comment1 (test code = Comment1) Notify RN/ [facility] GLUCOSE [id number] 20:55:00 Test Item Value Reference Range Interpretation Comments Comment1 (test code = Comment1) [facility]ck[facility]OOSBBYVV9735-24-23 10:31:00 Test Item Value Reference Range Interpretation Comments Sodium Lvl (test code = Sodium Lvl) 144 135-145 N [facility]DrsbjkwIWCZSZHKS3214-00-52 10:31:00 Test Item Value Reference Range Interpretation Comments Chloride Lvl (test code = Chloride Lvl) 105 95-109 N [facility]AayvvvfUNPUSULJL8449-61-92 10:31:00 Test Item Value Reference Range Interpretation Comments Potassium Lvl (test code = Potassium 3.6 3.5-5.1 N Lvl) [facility] HospitalHarwafaALOMLQIIT4251-66-51 10:31:00 Test Item Value Reference Range Interpretation Comments eGFR (test code = eGFR) 96 [facility] HospitalMqyndonEAYFRBQYH6015-54-86 10:31:00 Test Item Value Reference Range Interpretation Comments Creatinine Lvl (test code = Creatinine 0.5 0.5-1.4 N Lvl) [facility] HospitalKvzmjnrZEYLHBRJI9977-24-61 10:31:00 Test Item Value Reference Range Interpretation Comments CO2 (test code = CO2) 28 24-32 N [facility]EatbqfzYUNCMFZZV7840-98-29 10:31:00 Test Item Value Reference Range Interpretation Comments Calcium Lvl (test code = Calcium Lvl) 7.8 8.5-10.5 L [facility] HospitalDaxkpnjLIDWMSIJJ9731-83-71 10:31:00 Test Item Value Reference Range Interpretation Comments BUN (test code = BUN) 14 7-22 N [facility] HospitalBjfjggnPHJYIWJUU7833-91-38 10:31:00 Test Item Value Reference Range Interpretation Comments Glucose Lvl (test code = Glucose Lvl) 118 70-99 H [facility] HospitalIpxmbwxHBMKCLBTI6792-21-68 10:31:00 Test Item Value Reference Range Interpretation Comments AGAP (test code = AGAP) 14.6 10.0-20.0 N [facility]GknspnyZSMFRMLDJQ6126-40-14 10:31:00 Test Item Value Reference Range Interpretation Comments Platelet (test code = Platelet) 183 133-450 N [facility] HospitalOaqvsqwBRKNORMJZF7879-97-75 10:31:00 Test Item Value Reference Range Interpretation Comments MCHC (test code = MCHC) 32.4 32.0-36.0 N [facility] HospitalQulfnbuBZILTMCHHW9776-40-34 10:31:00 Test Item Value Reference Range Interpretation Comments RDW (test code = RDW) 15.7 11.5-14.5 H [facility] HospitalDsfntwyDUTETAGYWW1814-25-21 10:31:00 Test Item Value Reference Range Interpretation Comments MCH (test code = MCH) 26.8 pg 27.0-31.0 L [facility] HospitalHmrdvcvRKUUDNRXIZ9485-96-42 10:31:00 Test Item Value Reference Range Interpretation Comments MCV (test code = MCV) 82.8 81.0-99.0 N [facility] HospitalEtoypdhYODWBJBEQZ1274-35-93 10:31:00 Test Item Value Reference Range Interpretation Comments MPV (test code = MPV) 9.9 7.4-10.4 N [facility] HospitalVmlrzbbOFSSIMZVMO0074-94-35 10:31:00 Test Item Value Reference Range Interpretation Comments Hct (test code = Hct) 29.4 36.0-48.0 L [facility] HospitalFrirdmlXMSXQGVHTO4485-66-71 10:31:00 Test Item Value Reference Range Interpretation Comments Hgb (test code = Hgb) 9.5 12.0-16.0 L [facility] HospitalJdehsnnIOOSIXESGG4910-04-89 10:31:00 Test Item Value Reference Range Interpretation Comments RBC (test code = RBC) 3.55 4.20-5.40 L [facility] HospitalGzjwjacRRKLXZHUFK3797-50-84 10:31:00 Test Item Value Reference Range Interpretation Comments WBC (test code = WBC) 8.9 3.7-10.4 N [facility] HospitalGxembilZGLHHYLQBB7466-04-90 10:31:00 Test Item Value Reference Range Interpretation Comments Segs-Bands # (test code = Segs-Bands #) 7.2 1.5-8.1 N [facility] HospitalUpahemmBRJWCZSZXN2661-38-20 10:31:00 Test Item Value Reference Range Interpretation Comments Basophils (test code = 0.1 See_Comment N [Aut omated message] The Basophils) system which ge nerated this result tra nsmitted reference range : <=1.0. The reference r lina was not used to int erpret this result as normal/abnormal . [facility] HospitalBdgtvqvKYGJZPYYOC5915-81-44 10:31:00 Test Item Value Reference Range Interpretation Comments Basophils # (test code 0.0 See_Comment N [Aut omated message] The = Basophils #) system which generated this result tra nsmitted reference range : <=0.2. The reference r lina was not used to int erpret this result as normal/abnormal . [facility] HospitalIjonfcrZUTZJLNLPY2883-66-26 10:31:00 Test Item Value Reference Range Interpretation Comments Eosinophils # (test code 0.4 See_Comment N [A utomated message] The = Eosinophils #) system whic h generated this result tra nsmitted reference range : <=0.5. The reference r lina was not used to int erpret this result as normal/abnormal . [facility] HospitalVbhrptwITTVFLABVV0889-56-51 10:31:00 Test Item Value Reference Range Interpretation Comments Monocytes # (test code 0.4 See_Comment N [Aut omated message] The = Monocytes #) system which generated this result tra nsmitted reference range : <=0.8. The reference r lina was not used to int erpret this result as normal/abnormal . [facility] HospitalZherpwqLWEQZIPXLQ8607-01-63 10:31:00 Test Item Value Reference Range Interpretation Comments Lymphocytes # (test code = Lymphocytes 0.8 1.0-5.5 L #) [facility] HospitalHvfojwlPPHIBSRFMN6254-97-95 10:31:00 Test Item Value Reference Range Interpretation Comments Eosinophils (test code = 4.8 See_Comment H [A utomated message] The Eosinophils) system which ge nerated this result tra nsmitted reference range : <=4.0. The reference r lina was not used to int erpret this result as normal/abnormal . [facility] HospitalRdhdlueZMORFFUINK4245-16-10 10:31:00 Test Item Value Reference Range Interpretation Comments Monocytes (test code = Monocytes) 4.8 2.0-12.0 N [facility] HospitalFlmakinYMFPZDAYEU3271-58-27 10:31:00 Test Item Value Reference Range Interpretation Comments Lymphocytes (test code = Lymphocytes) 8.9 20.0-40.0 L [facility] HospitalKapobzvCQBGMTKEPU8248-38-38 10:31:00 Test Item Value Reference Range Interpretation Comments Segs (test code = Segs) 81.4 45.0-75.0 H [facility] HospitalIjfscemQHYEINBIK4858-80-26 10:31:00 Test Item Value Reference Range Interpretation Comments Sodium Lvl (test code = Sodium Lvl) 144 135-145 N [facility] HospitalIxgkdkjXEKFBECHF8356-31-05 10:31:00 Test Item Value Reference Range Interpretation Comments Chloride Lvl (test code = Chloride Lvl) 105 95-109 N [facility] HospitalXvemxvzDIQAKGINH5068-60-07 10:31:00 Test Item Value Reference Range Interpretation Comments Potassium Lvl (test code = Potassium 3.6 3.5-5.1 N Lvl) [facility] HospitalRqykpbjNAPWUQWZB6381-70-00 10:31:00 Test Item Value Reference Range Interpretation Comments eGFR (test code = eGFR) 96 [facility] HospitalToxhotjZZKOKFGHE8446-32-30 10:31:00 Test Item Value Reference Range Interpretation Comments Creatinine Lvl (test code = Creatinine 0.5 0.5-1.4 N Lvl) [facility] HospitalAfelbynFZYRIGQHY3225-09-84 10:31:00 Test Item Value Reference Range Interpretation Comments CO2 (test code = CO2) 28 24-32 N [facility] HospitalJbsjrrmIRBKGXNFU4328-67-61 10:31:00 Test Item Value Reference Range Interpretation Comments Calcium Lvl (test code = Calcium Lvl) 7.8 8.5-10.5 L [facility] HospitalIjnjbskSQKGEELEG3230-78-49 10:31:00 Test Item Value Reference Range Interpretation Comments BUN (test code = BUN) 14 7-22 N [facility] HospitalCmlvqtwPMKHWDHYB8174-02-88 10:31:00 Test Item Value Reference Range Interpretation Comments Glucose Lvl (test code = Glucose Lvl) 118 70-99 H [facility] HospitalVhuoxrjIADYDWGNT3837-09-05 10:31:00 Test Item Value Reference Range Interpretation Comments AGAP (test code = AGAP) 14.6 10.0-20.0 N [facility] HospitalSbwjdojMPPSKRBTNF2617-94-91 10:31:00 Test Item Value Reference Range Interpretation Comments Platelet (test code = Platelet) 183 133-450 N [facility] HospitalGtigcavGBJOMCYXIW5816-47-31 10:31:00 Test Item Value Reference Range Interpretation Comments MCHC (test code = MCHC) 32.4 32.0-36.0 N [facility] HospitalZenpvreJUIMVKYJCK8061-92-24 10:31:00 Test Item Value Reference Range Interpretation Comments RDW (test code = RDW) 15.7 11.5-14.5 H [facility] HospitalOzeyxbnPHJORBWRFS8801-41-35 10:31:00 Test Item Value Reference Range Interpretation Comments MCH (test code = MCH) 26.8 pg 27.0-31.0 L [facility] HospitalYeasspdULKFHOYUNG2020-23-04 10:31:00 Test Item Value Reference Range Interpretation Comments MCV (test code = MCV) 82.8 81.0-99.0 N [facility] HospitalBmfssfiFNJAURIUJZ3131-97-15 10:31:00 Test Item Value Reference Range Interpretation Comments MPV (test code = MPV) 9.9 7.4-10.4 N [facility] HospitalKwpyvsuKTRCKORRCZ2778-43-78 10:31:00 Test Item Value Reference Range Interpretation Comments Hct (test code = Hct) 29.4 36.0-48.0 L [facility] HospitalRedguuqYGEGJQUZYC7480-75-02 10:31:00 Test Item Value Reference Range Interpretation Comments Hgb (test code = Hgb) 9.5 12.0-16.0 L [facility] HospitalEksogcmNTHKTLMPSF8021-79-01 10:31:00 Test Item Value Reference Range Interpretation Comments RBC (test code = RBC) 3.55 4.20-5.40 L [facility] HospitalEbdnhmfSSESAIMZAY2055-69-29 10:31:00 Test Item Value Reference Range Interpretation Comments WBC (test code = WBC) 8.9 3.7-10.4 N [facility] HospitalLsoskyuEVODWJUYJD5479-21-80 10:31:00 Test Item Value Reference Range Interpretation Comments Segs-Bands # (test code = Segs-Bands #) 7.2 1.5-8.1 N [facility] HospitalXlbgoldXUMSZMEHNV9034-61-01 10:31:00 Test Item Value Reference Range Interpretation Comments Basophils (test code = 0.1 See_Comment N [Aut omated message] The Basophils) system which ge nerated this result tra nsmitted reference range : <=1.0. The reference r lina was not used to int erpret this result as normal/abnormal . [facility] HospitalXvzfsteQIMFXHNXRY3533-96-99 10:31:00 Test Item Value Reference Range Interpretation Comments Basophils # (test code 0.0 See_Comment N [Aut omated message] The = Basophils #) system which generated this result tra nsmitted reference range : <=0.2. The reference r lina was not used to int erpret this result as normal/abnormal . [facility] HospitalEvkfomoSQBSPDCMKD2255-19-91 10:31:00 Test Item Value Reference Range Interpretation Comments Eosinophils # (test code 0.4 See_Comment N [A utomated message] The = Eosinophils #) system whic h generated this result tra nsmitted reference range : <=0.5. The reference r lina was not used to int erpret this result as normal/abnormal . [facility] HospitalGiyxirvPPFZMIGVPK7529-79-38 10:31:00 Test Item Value Reference Range Interpretation Comments Monocytes # (test code 0.4 See_Comment N [Aut omated message] The = Monocytes #) system which generated this result tra nsmitted reference range : <=0.8. The reference r lina was not used to int erpret this result as normal/abnormal . [facility] HospitalQcskabhKRFPDDRPNN5945-38-70 10:31:00 Test Item Value Reference Range Interpretation Comments Lymphocytes # (test code = Lymphocytes 0.8 1.0-5.5 L #) [facility] HospitalUfyblwjMUELIIZMCS0139-02-98 10:31:00 Test Item Value Reference Range Interpretation Comments Eosinophils (test code = 4.8 See_Comment H [A utomated message] The Eosinophils) system which ge nerated this result tra nsmitted reference range : <=4.0. The reference r lina was not used to int erpret this result as normal/abnormal . [facility] HospitalHdwdbdmINEOWFQLZY7283-72-20 10:31:00 Test Item Value Reference Range Interpretation Comments Monocytes (test code = Monocytes) 4.8 2.0-12.0 N [facility] HospitalYdqlqzvDXAJCZQJCV9402-26-73 10:31:00 Test Item Value Reference Range Interpretation Comments Lymphocytes (test code = Lymphocytes) 8.9 20.0-40.0 L [facility] HospitalVkxguydWLSPYYHLYG2405-38-33 10:31:00 Test Item Value Reference Range Interpretation Comments Segs (test code = Segs) 81.4 45.0-75.0 H [facility] HospitalZuybpetHMMSMSARQ7467-15-52 10:31:00 Test Item Value Reference Range Interpretation Comments Sodium Lvl (test code = Sodium Lvl) 144 135-145 N [facility] HospitalXnbismqXRPCLYLRZ5610-10-47 10:31:00 Test Item Value Reference Range Interpretation Comments Chloride Lvl (test code = Chloride Lvl) 105 95-109 N [facility] HospitalCyttrueMLWCQSOLB3096-56-21 10:31:00 Test Item Value Reference Range Interpretation Comments Potassium Lvl (test code = Potassium 3.6 3.5-5.1 N Lvl) [facility] HospitalZytpwoqGSOZTRJAO2013-95-12 10:31:00 Test Item Value Reference Range Interpretation Comments eGFR (test code = eGFR) 96 [facility] HospitalGtibnqpDCRWBLLAH7744-27-64 10:31:00 Test Item Value Reference Range Interpretation Comments Creatinine Lvl (test code = Creatinine 0.5 0.5-1.4 N Lvl) [facility] HospitalWdlonhhIGUSRTYZR5571-83-34 10:31:00 Test Item Value Reference Range Interpretation Comments CO2 (test code = CO2) 28 24-32 N [facility] HospitalMbflagjLSYJXCMDT7129-58-87 10:31:00 Test Item Value Reference Range Interpretation Comments Calcium Lvl (test code = Calcium Lvl) 7.8 8.5-10.5 L [facility] HospitalWhocyfuSICIITCKW7125-04-13 10:31:00 Test Item Value Reference Range Interpretation Comments BUN (test code = BUN) 14 7-22 N [facility] HospitalIhltmclTMPPXCBUE8500-76-96 10:31:00 Test Item Value Reference Range Interpretation Comments Glucose Lvl (test code = Glucose Lvl) 118 70-99 H [facility] HospitalLdqxyotCOEZIASBK6794-93-86 10:31:00 Test Item Value Reference Range Interpretation Comments AGAP (test code = AGAP) 14.6 10.0-20.0 N [facility] HospitalVqfkxejWVWNKXAMXW5343-67-20 10:31:00 Test Item Value Reference Range Interpretation Comments Platelet (test code = Platelet) 183 133-450 N [facility] HospitalJfgauqgGCFCYYGSPR1502-22-54 10:31:00 Test Item Value Reference Range Interpretation Comments MCHC (test code = MCHC) 32.4 32.0-36.0 N [facility] HospitalQbyjnthQBXXIAGBCM5537-35-21 10:31:00 Test Item Value Reference Range Interpretation Comments RDW (test code = RDW) 15.7 11.5-14.5 H [facility] HospitalFvvakfmHJFQAZKDUM4841-53-32 10:31:00 Test Item Value Reference Range Interpretation Comments MCH (test code = MCH) 26.8 pg 27.0-31.0 L [facility] HospitalZvuzzfyHSWLVNFTAU9964-73-31 10:31:00 Test Item Value Reference Range Interpretation Comments MCV (test code = MCV) 82.8 81.0-99.0 N [facility] HospitalOparrjzIZMVEYXYQB5899-17-65 10:31:00 Test Item Value Reference Range Interpretation Comments MPV (test code = MPV) 9.9 7.4-10.4 N [facility] HospitalYmqgykxASINBGLORE7963-42-95 10:31:00 Test Item Value Reference Range Interpretation Comments Hct (test code = Hct) 29.4 36.0-48.0 L [facility] HospitalNrnhrwnLBPINKMSIZ6327-51-96 10:31:00 Test Item Value Reference Range Interpretation Comments Hgb (test code = Hgb) 9.5 12.0-16.0 L [facility] HospitalOodnozgJWFSDRGAXI7519-90-89 10:31:00 Test Item Value Reference Range Interpretation Comments RBC (test code = RBC) 3.55 4.20-5.40 L [facility] HospitalOjsigicQWYRFNTWZS7854-82-96 10:31:00 Test Item Value Reference Range Interpretation Comments WBC (test code = WBC) 8.9 3.7-10.4 N [facility] HospitalVzbniejQHPHDEXGEV1361-64-20 10:31:00 Test Item Value Reference Range Interpretation Comments Segs-Bands # (test code = Segs-Bands #) 7.2 1.5-8.1 N [facility] HospitalBympopqDBCNDIMRDW6032-75-56 10:31:00 Test Item Value Reference Range Interpretation Comments Basophils (test code = 0.1 See_Comment N [Aut omated message] The Basophils) system which ge nerated this result tra nsmitted reference range : <=1.0. The reference r lina was not used to int erpret this result as normal/abnormal . [facility] HospitalQmkhnikNMXUUVWSGG6929-65-53 10:31:00 Test Item Value Reference Range Interpretation Comments Basophils # (test code 0.0 See_Comment N [Aut omated message] The = Basophils #) system which generated this result tra nsmitted reference range : <=0.2. The reference r lina was not used to int erpret this result as normal/abnormal . [facility] HospitalQkjtvrkBUTDXLTLHG1936-52-95 10:31:00 Test Item Value Reference Range Interpretation Comments Eosinophils # (test code 0.4 See_Comment N [A utomated message] The = Eosinophils #) system whic h generated this result tra nsmitted reference range : <=0.5. The reference r lina was not used to int erpret this result as normal/abnormal . [facility] HospitalJnmxbeaSCPKDTVRYW3474-03-58 10:31:00 Test Item Value Reference Range Interpretation Comments Monocytes # (test code 0.4 See_Comment N [Aut omated message] The = Monocytes #) system which generated this result tra nsmitted reference range : <=0.8. The reference r lina was not used to int erpret this result as normal/abnormal . [facility] HospitalOxhsyshMYJVENSYEG3753-02-92 10:31:00 Test Item Value Reference Range Interpretation Comments Lymphocytes # (test code = Lymphocytes 0.8 1.0-5.5 L #) [facility] HospitalJushapqIPIZIIFANE4510-27-24 10:31:00 Test Item Value Reference Range Interpretation Comments Eosinophils (test code = 4.8 See_Comment H [A utomated message] The Eosinophils) system which ge nerated this result tra nsmitted reference range : <=4.0. The reference r lina was not used to int erpret this result as normal/abnormal . [facility] HospitalZbcoevyCYEZBCJBNI3495-85-48 10:31:00 Test Item Value Reference Range Interpretation Comments Monocytes (test code = Monocytes) 4.8 2.0-12.0 N [facility] HospitalHsgnesaAYFZHDWRDG1316-55-31 10:31:00 Test Item Value Reference Range Interpretation Comments Lymphocytes (test code = Lymphocytes) 8.9 20.0-40.0 L [facility] HospitalZnbeguyRREEZBLAZM3239-05-34 10:31:00 Test Item Value Reference Range Interpretation Comments Segs (test code = Segs) 81.4 45.0-75.0 H [facility] HospitalXfcmvokLTQFSISBA9839-38-28 08:47:00 Test Item Value Reference Range Interpretation Comments Magnesium Lvl (test code = Magnesium 2.1 1.8-2.4 N Lvl) [facility] HospitalYadmcdlJFKOVTVOB0326-27-13 08:47:00 Test Item Value Reference Range Interpretation Comments Chloride Lvl (test code = Chloride Lvl) 106 95-109 N [facility] HospitalTwjnbfbWJNXNCXYD5432-31-62 08:47:00 Test Item Value Reference Range Interpretation Comments Potassium Lvl (test code = Potassium 3.5 3.5-5.1 N Lvl) [facility] HospitalDyqnjuvYYOFSPKDV2728-13-65 08:47:00 Test Item Value Reference Range Interpretation Comments Sodium Lvl (test code = Sodium Lvl) 144 135-145 N [facility] HospitalMqvlrkbOCUVGGJFD3068-95-67 08:47:00 Test Item Value Reference Range Interpretation Comments Globulin (test code = Globulin) 2.7 2.0-4.0 N [facility] HospitalJqxgufsWHZYYTLPE5786-56-26 08:47:00 Test Item Value Reference Range Interpretation Comments A/G Ratio (test code = A/G Ratio) 1.0 0.7-1.6 N [facility] HospitalOsqlywdMUVYGZQGI6126-17-25 08:47:00 Test Item Value Reference Range Interpretation Comments Bili Total (test code = Bili Total) 0.9 0.2-1.3 N [place] [address]-03-12 08:47:00 Test Item Value Reference Range Interpretation Comments ALT (test code = ALT) 12 See_Comment N [Auto mated message] The system which ge nerated this result transmit norris reference range : <=65. The reference range was not used to interpr et this result as darshana l/abnormal. [facility] HospitalDtjkozpOHFYOLBXV1377-27-81 08:47:00 Test Item Value Reference Range Interpretation Comments Alk Phos (test code = Alk Phos) 60 39-136 N [facility] HospitalJzclfksFQVTRVNME3288-01-21 08:47:00 Test Item Value Reference Range Interpretation Comments Creatinine Lvl (test code = Creatinine 0.5 0.5-1.4 N Lvl) [facility] HospitalWezesobFQWLLDMHE0197-75-73 08:47:00 Test Item Value Reference Range Interpretation Comments CO2 (test code = CO2) 31 24-32 N [facility] HospitalRwxuhhmZQULBHMTV9540-68-66 08:47:00 Test Item Value Reference Range Interpretation Comments Glucose Lvl (test code = Glucose Lvl) 93 70-99 N [facility] HospitalJgxrapgVHSNDNSHH5860-04-62 08:47:00 Test Item Value Reference Range Interpretation Comments BUN (test code = BUN) 14 7-22 N [facility] HospitalJyohqpwEFEVZSAFC4572-88-36 08:47:00 Test Item Value Reference Range Interpretation Comments AGAP (test code = AGAP) 10.5 10.0-20.0 N [facility] HospitalZftygunXCRFCIIMX4984-47-97 08:47:00 Test Item Value Reference Range Interpretation Comments Total Protein (test code = Total 5.3 6.4-8.4 L Protein) [facility] HospitalZydyixgBUJLRAVNZ8059-94-05 08:47:00 Test Item Value Reference Range Interpretation Comments Albumin Lvl (test code = Albumin Lvl) 2.6 3.5-5.0 L [facility] HospitalMzymcqlQTWVQBDBB6748-09-25 08:47:00 Test Item Value Reference Range Interpretation Comments Calcium Lvl (test code = Calcium Lvl) 7.6 8.5-10.5 L [facility] HospitalNifzteeJISPBBNKO9062-34-58 08:47:00 Test Item Value Reference Range Interpretation Comments B/C Ratio (test code = B/C Ratio) 28 6-25 H [facility] HospitalNjmpjlzFOZCYFHLN3131-06-27 08:47:00 Test Item Value Reference Range Interpretation Comments AST (test code = AST) 9 See_Comment N [Auto mated message] The system which ge nerated this result transmit norris reference range : <=37. The reference range was not used to interpr et this result as darshana l/abnormal. [facility] HospitalDuuyickNHJXODOQV2729-54-38 08:47:00 Test Item Value Reference Range Interpretation Comments eGFR (test code = eGFR) 96 [facility] HospitalSsslltiCEDFFUGBEB3552-20-86 08:47:00 Test Item Value Reference Range Interpretation Comments Monocytes # (test code 0.4 See_Comment N [Aut omated message] The = Monocytes #) system which generated this result tra nsmitted reference range : <=0.8. The reference r lina was not used to int erpret this result as normal/abnormal . [facility] HospitalKfzdggmZQEJORNZRD1499-72-10 08:47:00 Test Item Value Reference Range Interpretation Comments Eosinophils # (test code 0.3 See_Comment N [A utomated message] The = Eosinophils #) system whic h generated this result tra nsmitted reference range : <=0.5. The reference r lina was not used to int erpret this result as normal/abnormal . [facility] HospitalMegudoePTVGVDVJVM9035-33-18 08:47:00 Test Item Value Reference Range Interpretation Comments Basophils # (test code 0.0 See_Comment N [Aut omated message] The = Basophils #) system which generated this result tra nsmitted reference range : <=0.2. The reference r lina was not used to int erpret this result as normal/abnormal . [facility] HospitalVbzykttXXURLJNYVS3380-32-88 08:47:00 Test Item Value Reference Range Interpretation Comments Eosinophils (test code = 3.3 See_Comment N [A utomated message] The Eosinophils) system which ge nerated this result tra nsmitted reference range : <=4.0. The reference r lina was not used to int erpret this result as normal/abnormal . [facility] HospitalExilgdkBHYTEVQYXP8637-88-91 08:47:00 Test Item Value Reference Range Interpretation Comments Basophils (test code = 0.2 See_Comment N [Aut omated message] The Basophils) system which ge nerated this result tra nsmitted reference range : <=1.0. The reference r lina was not used to int erpret this result as normal/abnormal . [facility] HospitalBwqsixjVIPICYTIUU6168-12-79 08:47:00 Test Item Value Reference Range Interpretation Comments Segs-Bands # (test code = Segs-Bands #) 7.4 1.5-8.1 N [facility] HospitalWdormbjZMKJXXIVIK5664-97-95 08:47:00 Test Item Value Reference Range Interpretation Comments Lymphocytes # (test code = Lymphocytes 0.9 1.0-5.5 L #) [facility] HospitalCgewfcdIPLKWRHPWP5970-85-56 08:47:00 Test Item Value Reference Range Interpretation Comments Monocytes (test code = Monocytes) 4.7 2.0-12.0 N [facility] HospitalDawkzcmKXHEMWQRZZ2853-70-57 08:47:00 Test Item Value Reference Range Interpretation Comments Lymphocytes (test code = Lymphocytes) 10.1 20.0-40.0 L [facility] HospitalRqiybhzXUCBUXTZCT5020-99-41 08:47:00 Test Item Value Reference Range Interpretation Comments Segs (test code = Segs) 81.7 45.0-75.0 H [facility] HospitalLkrbwyyVYQYBFVWJA9328-74-23 08:47:00 Test Item Value Reference Range Interpretation Comments MPV (test code = MPV) 9.8 7.4-10.4 N [facility] HospitalJwrwkugFSXQOSZXUG8796-79-86 08:47:00 Test Item Value Reference Range Interpretation Comments MCHC (test code = MCHC) 32.4 32.0-36.0 N [facility] HospitalBqyxgqeYOFUURBLSO4430-80-29 08:47:00 Test Item Value Reference Range Interpretation Comments RDW (test code = RDW) 15.8 11.5-14.5 H [facility] HospitalRdorpvzCCEGPPBOTN2763-34-78 08:47:00 Test Item Value Reference Range Interpretation Comments Platelet (test code = Platelet) 174 133-450 N [facility] HospitalXkpvltcAZTOFYGGDF5849-90-68 08:47:00 Test Item Value Reference Range Interpretation Comments Hct (test code = Hct) 29.1 36.0-48.0 L [facility] HospitalQbsshiiJEUYJWHGXH5062-93-29 08:47:00 Test Item Value Reference Range Interpretation Comments RBC (test code = RBC) 3.53 4.20-5.40 L [facility]MrapmuvKWPDEXPRIO7306-06-36 08:47:00 Test Item Value Reference Range Interpretation Comments WBC (test code = WBC) 9.1 3.7-10.4 N [facility] HospitalCcvnzqlPKRRSXCREB7789-35-29 08:47:00 Test Item Value Reference Range Interpretation Comments Hgb (test code = Hgb) 9.4 12.0-16.0 L [facility] HospitalKzbnonlRGWJHZYODY8569-54-70 08:47:00 Test Item Value Reference Range Interpretation Comments MCH (test code = MCH) 26.7 pg 27.0-31.0 L [facility] HospitalGvyhfokHTLCELFVKQ1844-55-28 08:47:00 Test Item Value Reference Range Interpretation Comments MCV (test code = MCV) 82.4 81.0-99.0 N [facility]RhlmewkJQNQRIQZN9105-70-13 08:47:00 Test Item Value Reference Range Interpretation Comments Magnesium Lvl (test code = Magnesium 2.1 1.8-2.4 N Lvl) [facility] HospitalEozaspbQWKAJZMBR2259-20-38 08:47:00 Test Item Value Reference Range Interpretation Comments Chloride Lvl (test code = Chloride Lvl) 106 95-109 N [facility] HospitalYuanujbSSTXYMOXY2306-49-38 08:47:00 Test Item Value Reference Range Interpretation Comments Potassium Lvl (test code = Potassium 3.5 3.5-5.1 N Lvl) [facility] HospitalYayidblJLSAGWGCL4047-09-92 08:47:00 Test Item Value Reference Range Interpretation Comments Sodium Lvl (test code = Sodium Lvl) 144 135-145 N [facility] HospitalIzmsujzSBNSPYRSH6751-32-36 08:47:00 Test Item Value Reference Range Interpretation Comments Globulin (test code = Globulin) 2.7 2.0-4.0 N [facility] HospitalNxmaiifLXMJCVSGU6461-79-61 08:47:00 Test Item Value Reference Range Interpretation Comments A/G Ratio (test code = A/G Ratio) 1.0 0.7-1.6 N [facility] HospitalFjsgzloGIFTUGGEL6716-41-22 08:47:00 Test Item Value Reference Range Interpretation Comments Bili Total (test code = Bili Total) 0.9 0.2-1.3 N [facility] HospitalOwfhpohQTJEWABLN7846-79-98 08:47:00 Test Item Value Reference Range Interpretation Comments ALT (test code = ALT) 12 See_Comment N [Auto mated message] The system which ge nerated this result transmit norris reference range : <=65. The reference range was not used to interpr et this result as darshana l/abnormal. [facility] HospitalGpdlfeoNROFXQGRA4548-12-43 08:47:00 Test Item Value Reference Range Interpretation Comments Alk Phos (test code = Alk Phos) 60 39-136 N [facility] HospitalXjvxqsvZASJTXEIB6684-32-66 08:47:00 Test Item Value Reference Range Interpretation Comments Creatinine Lvl (test code = Creatinine 0.5 0.5-1.4 N Lvl) [facility] HospitalJrsrolnFWRXETYBF9685-66-15 08:47:00 Test Item Value Reference Range Interpretation Comments CO2 (test code = CO2) 31 24-32 N [facility] HospitalIomckwbKAYURSTNY6029-95-99 08:47:00 Test Item Value Reference Range Interpretation Comments Glucose Lvl (test code = Glucose Lvl) 93 70-99 N [facility] HospitalSjhqqqqMTZSZHPDH9139-29-31 08:47:00 Test Item Value Reference Range Interpretation Comments BUN (test code = BUN) 14 7-22 N [facility] HospitalJocbypuGGVYMNOTH5841-79-43 08:47:00 Test Item Value Reference Range Interpretation Comments AGAP (test code = AGAP) 10.5 10.0-20.0 N [facility] HospitalEbcqpmnLTTHAPIRC4824-19-70 08:47:00 Test Item Value Reference Range Interpretation Comments Total Protein (test code = Total 5.3 6.4-8.4 L Protein) [facility] HospitalAsplumeRHJIEYHJV3564-52-26 08:47:00 Test Item Value Reference Range Interpretation Comments Albumin Lvl (test code = Albumin Lvl) 2.6 3.5-5.0 L [facility] HospitalScaqazkDMCVZEPYA5397-13-12 08:47:00 Test Item Value Reference Range Interpretation Comments Calcium Lvl (test code = Calcium Lvl) 7.6 8.5-10.5 L [facility] HospitalIqtinbxOCJSVZBTN1735-40-82 08:47:00 Test Item Value Reference Range Interpretation Comments B/C Ratio (test code = B/C Ratio) 28 6-25 H [facility] HospitalBijbtsaEZXDXTQJE1062-77-66 08:47:00 Test Item Value Reference Range Interpretation Comments AST (test code = AST) 9 See_Comment N [Auto mated message] The system which ge nerated this result transmit norris reference range : <=37. The reference range was not used to interpr et this result as darshana l/abnormal. [facility] HospitalZyomzrfIDZKQPTNA9259-86-94 08:47:00 Test Item Value Reference Range Interpretation Comments eGFR (test code = eGFR) 96 [facility] HospitalKvmhfuuDSEHSKODJM3527-39-88 08:47:00 Test Item Value Reference Range Interpretation Comments Monocytes # (test code 0.4 See_Comment N [Aut omated message] The = Monocytes #) system which generated this result tra nsmitted reference range : <=0.8. The reference r lina was not used to int erpret this result as normal/abnormal . [facility] HospitalTrfbenxWGCXJSDUAR8284-43-77 08:47:00 Test Item Value Reference Range Interpretation Comments Eosinophils # (test code 0.3 See_Comment N [A utomated message] The = Eosinophils #) system whic h generated this result tra nsmitted reference range : <=0.5. The reference r lina was not used to int erpret this result as normal/abnormal . [facility] HospitalUdvecffCWMIJOQTZL8479-60-39 08:47:00 Test Item Value Reference Range Interpretation Comments Basophils # (test code 0.0 See_Comment N [Aut omated message] The = Basophils #) system which generated this result tra nsmitted reference range : <=0.2. The reference r lina was not used to int erpret this result as normal/abnormal . [facility] HospitalIjbtsetTWPTQAXQEK5584-87-41 08:47:00 Test Item Value Reference Range Interpretation Comments Eosinophils (test code = 3.3 See_Comment N [A utomated message] The Eosinophils) system which ge nerated this result tra nsmitted reference range : <=4.0. The reference r lina was not used to int erpret this result as normal/abnormal . [facility] HospitalJrvpqfdXBQSUTSECW2822-61-20 08:47:00 Test Item Value Reference Range Interpretation Comments Basophils (test code = 0.2 See_Comment N [Aut omated message] The Basophils) system which ge nerated this result tra nsmitted reference range : <=1.0. The reference r lina was not used to int erpret this result as normal/abnormal . [facility] HospitalJaknmvkEWSGHNPHTW2928-10-10 08:47:00 Test Item Value Reference Range Interpretation Comments Segs-Bands # (test code = Segs-Bands #) 7.4 1.5-8.1 N [place] 678173-03-12 08:47:00 Test Item Value Reference Range Interpretation Comments Lymphocytes # (test code = Lymphocytes 0.9 1.0-5.5 L #) [facility] HospitalKtxbzpiCIPXJZHPCC0670-18-80 08:47:00 Test Item Value Reference Range Interpretation Comments Monocytes (test code = Monocytes) 4.7 2.0-12.0 N [facility] HospitalPrvcppvPDNJDRXRCC4882-67-76 08:47:00 Test Item Value Reference Range Interpretation Comments Lymphocytes (test code = Lymphocytes) 10.1 20.0-40.0 L [place] 678173-03-12 08:47:00 Test Item Value Reference Range Interpretation Comments Segs (test code = Segs) 81.7 45.0-75.0 H [facility] HospitalIxbetahEOVLZAJCDH2367-96-63 08:47:00 Test Item Value Reference Range Interpretation Comments MPV (test code = MPV) 9.8 7.4-10.4 N [facility] HospitalWxtyqkbBPFFRJTCSZ0644-14-45 08:47:00 Test Item Value Reference Range Interpretation Comments MCHC (test code = MCHC) 32.4 32.0-36.0 N [facility] HospitalCshakwrPKJLELEVBX1330-63-99 08:47:00 Test Item Value Reference Range Interpretation Comments RDW (test code = RDW) 15.8 11.5-14.5 H [facility] HospitalGmzqyquCBDVLGSNUM1390-41-64 08:47:00 Test Item Value Reference Range Interpretation Comments Platelet (test code = Platelet) 174 133-450 N [facility] HospitalJkqwjliSSGPRTCXPJ0000-01-85 08:47:00 Test Item Value Reference Range Interpretation Comments Hct (test code = Hct) 29.1 36.0-48.0 L [facility] HospitalMtbgjlbCDTWHHYWAZ4163-05-89 08:47:00 Test Item Value Reference Range Interpretation Comments RBC (test code = RBC) 3.53 4.20-5.40 L [facility] HospitalSbzknisLGOLFLRUNP3626-64-54 08:47:00 Test Item Value Reference Range Interpretation Comments WBC (test code = WBC) 9.1 3.7-10.4 N [facility] HospitalYrxxgluXVCGHMKNCI0250-31-31 08:47:00 Test Item Value Reference Range Interpretation Comments Hgb (test code = Hgb) 9.4 12.0-16.0 L [facility] HospitalOsqbsivQPDZSDGWQF3037-21-29 08:47:00 Test Item Value Reference Range Interpretation Comments MCH (test code = MCH) 26.7 pg 27.0-31.0 L [facility] HospitalHqzgwymNFYISRDUZO1562-51-44 08:47:00 Test Item Value Reference Range Interpretation Comments MCV (test code = MCV) 82.4 81.0-99.0 N [facility] HospitalBcnpvhtLQMIBNLJW1596-36-50 08:47:00 Test Item Value Reference Range Interpretation Comments Magnesium Lvl (test code = Magnesium 2.1 1.8-2.4 N Lvl) [facility] HospitalMueifghMMLINFZEE9739-46-85 08:47:00 Test Item Value Reference Range Interpretation Comments Chloride Lvl (test code = Chloride Lvl) 106 95-109 N [facility] HospitalZpdwolcXLOBREWXS9716-30-35 08:47:00 Test Item Value Reference Range Interpretation Comments Potassium Lvl (test code = Potassium 3.5 3.5-5.1 N Lvl) [facility] HospitalBmjciizFZYUFXXML1106-82-43 08:47:00 Test Item Value Reference Range Interpretation Comments Sodium Lvl (test code = Sodium Lvl) 144 135-145 N [facility] HospitalDovgddcJURQAHADP6925-64-47 08:47:00 Test Item Value Reference Range Interpretation Comments Globulin (test code = Globulin) 2.7 2.0-4.0 N [facility] HospitalXzbhhslYCCNFEFIR5357-17-20 08:47:00 Test Item Value Reference Range Interpretation Comments A/G Ratio (test code = A/G Ratio) 1.0 0.7-1.6 N [facility] HospitalGbxadjzUIONYNQYC9151-07-29 08:47:00 Test Item Value Reference Range Interpretation Comments Bili Total (test code = Bili Total) 0.9 0.2-1.3 N [facility] HospitalMcopjggOZOTFQCFC3129-78-63 08:47:00 Test Item Value Reference Range Interpretation Comments ALT (test code = ALT) 12 See_Comment N [Auto mated message] The system which ge nerated this result transmit norris reference range : <=65. The reference range was not used to interpr et this result as darshana l/abnormal. [facility] HospitalKwbisjeUBEXGQACA9717-07-17 08:47:00 Test Item Value Reference Range Interpretation Comments Alk Phos (test code = Alk Phos) 60 39-136 N [facility] HospitalFxnemwhNNVFOIYHC4560-35-05 08:47:00 Test Item Value Reference Range Interpretation Comments Creatinine Lvl (test code = Creatinine 0.5 0.5-1.4 N Lvl) [facility] HospitalOsawfqlOAOQPECYC2601-28-12 08:47:00 Test Item Value Reference Range Interpretation Comments CO2 (test code = CO2) 31 24-32 N [facility] HospitalCojkvyyUDPOPXQGS4064-60-97 08:47:00 Test Item Value Reference Range Interpretation Comments Glucose Lvl (test code = Glucose Lvl) 93 70-99 N [facility] HospitalZmhswmtWDDREGROI3418-80-44 08:47:00 Test Item Value Reference Range Interpretation Comments BUN (test code = BUN) 14 7-22 N [facility] HospitalYgbwdxfUNXDKHELV3964-01-01 08:47:00 Test Item Value Reference Range Interpretation Comments AGAP (test code = AGAP) 10.5 10.0-20.0 N [facility] HospitalZmlmnihNCNIBEEPU2306-72-78 08:47:00 Test Item Value Reference Range Interpretation Comments Total Protein (test code = Total 5.3 6.4-8.4 L Protein) [facility] HospitalJgofyrvKGXYVVAEG6523-68-42 08:47:00 Test Item Value Reference Range Interpretation Comments Albumin Lvl (test code = Albumin Lvl) 2.6 3.5-5.0 L [facility] HospitalKghrqsiBWTAPWQRJ6110-36-05 08:47:00 Test Item Value Reference Range Interpretation Comments Calcium Lvl (test code = Calcium Lvl) 7.6 8.5-10.5 L [facility] HospitalBqmkghxQDDNHWSVO7018-94-08 08:47:00 Test Item Value Reference Range Interpretation Comments B/C Ratio (test code = B/C Ratio) 28 6-25 H [facility] HospitalJbxdqtwILQLBKIYV6194-88-79 08:47:00 Test Item Value Reference Range Interpretation Comments AST (test code = AST) 9 See_Comment N [Auto mated message] The system which ge nerated this result transmit norris reference range : <=37. The reference range was not used to interpr et this result as darshana l/abnormal. [facility] HospitalPaezzneGVIFHAGVK2694-81-58 08:47:00 Test Item Value Reference Range Interpretation Comments eGFR (test code = eGFR) 96 [facility] HospitalImbpekkBJJQNMZZUM4877-42-03 08:47:00 Test Item Value Reference Range Interpretation Comments Monocytes # (test code 0.4 See_Comment N [Aut omated message] The = Monocytes #) system which generated this result tra nsmitted reference range : <=0.8. The reference r lina was not used to int erpret this result as normal/abnormal . [facility] HospitalKzbxxthZZSBOHEHPT1978-19-23 08:47:00 Test Item Value Reference Range Interpretation Comments Eosinophils # (test code 0.3 See_Comment N [A utomated message] The = Eosinophils #) system whic h generated this result tra nsmitted reference range : <=0.5. The reference r lina was not used to int erpret this result as normal/abnormal . [facility] HospitalBaokjukIRJJGSCPJP3959-48-21 08:47:00 Test Item Value Reference Range Interpretation Comments Basophils # (test code 0.0 See_Comment N [Aut omated message] The = Basophils #) system which generated this result tra nsmitted reference range : <=0.2. The reference r lina was not used to int erpret this result as normal/abnormal . [facility] HospitalKixmnlhJMGDAMTTFG6542-83-86 08:47:00 Test Item Value Reference Range Interpretation Comments Eosinophils (test code = 3.3 See_Comment N [A utomated message] The Eosinophils) system which ge nerated this result tra nsmitted reference range : <=4.0. The reference r lina was not used to int erpret this result as normal/abnormal . [facility] HospitalFvqjdvdXQQXJZJIQB2977-74-49 08:47:00 Test Item Value Reference Range Interpretation Comments Basophils (test code = 0.2 See_Comment N [Aut omated message] The Basophils) system which ge nerated this result tra nsmitted reference range : <=1.0. The reference r lina was not used to int erpret this result as normal/abnormal . [facility] HospitalRhwihpjTOSITHVMGY6792-62-90 08:47:00 Test Item Value Reference Range Interpretation Comments Segs-Bands # (test code = Segs-Bands #) 7.4 1.5-8.1 N [facility] HospitalKwnpbaeTPEQFQVTLI3091-83-97 08:47:00 Test Item Value Reference Range Interpretation Comments Lymphocytes # (test code = Lymphocytes 0.9 1.0-5.5 L #) [facility] HospitalWsxzswvGYGYMLGYMK0494-11-76 08:47:00 Test Item Value Reference Range Interpretation Comments Monocytes (test code = Monocytes) 4.7 2.0-12.0 N [facility] HospitalVrsupmdFYSFYLHXAH7536-46-14 08:47:00 Test Item Value Reference Range Interpretation Comments Lymphocytes (test code = Lymphocytes) 10.1 20.0-40.0 L [facility] HospitalAhebsodKLWFIPOHXB5204-57-30 08:47:00 Test Item Value Reference Range Interpretation Comments Segs (test code = Segs) 81.7 45.0-75.0 H [facility] HospitalBmkgpvlIVPDEHTJQB2605-75-14 08:47:00 Test Item Value Reference Range Interpretation Comments MPV (test code = MPV) 9.8 7.4-10.4 N [facility] HospitalHbhgojxSKXTTRRZGZ7700-58-88 08:47:00 Test Item Value Reference Range Interpretation Comments MCHC (test code = MCHC) 32.4 32.0-36.0 N [facility] HospitalBxxuxzkWGPNGNUUPV1475-58-31 08:47:00 Test Item Value Reference Range Interpretation Comments RDW (test code = RDW) 15.8 11.5-14.5 H [facility] HospitalKdtikazKILFFLFGNT9646-02-64 08:47:00 Test Item Value Reference Range Interpretation Comments Platelet (test code = Platelet) 174 133-450 N [facility] HospitalUwrpqglKCGQYCYPPL3585-37-70 08:47:00 Test Item Value Reference Range Interpretation Comments Hct (test code = Hct) 29.1 36.0-48.0 L [facility] HospitalVojkmydCCMTRRHDLV3286-54-84 08:47:00 Test Item Value Reference Range Interpretation Comments RBC (test code = RBC) 3.53 4.20-5.40 L [facility] HospitalToofgysAKRGYIOWLI9131-71-76 08:47:00 Test Item Value Reference Range Interpretation Comments WBC (test code = WBC) 9.1 3.7-10.4 N [facility] HospitalHajhienAUGXOYNBHX5335-31-35 08:47:00 Test Item Value Reference Range Interpretation Comments Hgb (test code = Hgb) 9.4 12.0-16.0 L [facility] HospitalZrycdywJVJGLQNBHQ0913-89-35 08:47:00 Test Item Value Reference Range Interpretation Comments MCH (test code = MCH) 26.7 pg 27.0-31.0 L [facility] HospitalXhhkcrnUDXVCEUIJB9991-59-77 08:47:00 Test Item Value Reference Range Interpretation Comments MCV (test code = MCV) 82.4 81.0-99.0 N [facility] HospitalYzaeyopBLKRUXQRC3024-60-57 10:08:00 Test Item Value Reference Range Interpretation Comments Magnesium Lvl (test code = Magnesium 2.0 1.8-2.4 N Lvl) [facility] HospitalIqysvidJLLTDIISY8593-11-76 10:08:00 Test Item Value Reference Range Interpretation Comments A/G Ratio (test code = A/G Ratio) 1.0 0.7-1.6 N [facility] HospitalLrpeqycZKYHDYJCW3136-23-67 10:08:00 Test Item Value Reference Range Interpretation Comments Globulin (test code = Globulin) 2.8 2.0-4.0 N [facility] HospitalXyrqsgrRRQUJJRGW7007-22-88 10:08:00 Test Item Value Reference Range Interpretation Comments B/C Ratio (test code = B/C Ratio) 26 6-25 H [facility] HospitalIwcfcyxYREBAWVNR7770-05-59 10:08:00 Test Item Value Reference Range Interpretation Comments AGAP (test code = AGAP) 13.8 10.0-20.0 N [facility] HospitalJouqvttOTHRMJCQX7344-71-41 10:08:00 Test Item Value Reference Range Interpretation Comments ALT (test code = ALT) 16 See_Comment N [Auto mated message] The system which ge nerated this result transmit norris reference range : <=65. The reference range was not used to interpr et this result as darshana l/abnormal. [facility] HospitalNqyjxitYZDTKEOXX7392-26-91 10:08:00 Test Item Value Reference Range Interpretation Comments Alk Phos (test code = Alk Phos) 70 39-136 N [facility] HospitalPahcuxyCNOWKPICL5914-47-85 10:08:00 Test Item Value Reference Range Interpretation Comments Total Protein (test code = Total 5.5 6.4-8.4 L Protein) [facility] HospitalAjahlzmGYPUPOBHK3981-17-48 10:08:00 Test Item Value Reference Range Interpretation Comments Albumin Lvl (test code = Albumin Lvl) 2.7 3.5-5.0 L [facility] HospitalJpookeuMLPWNEANS4266-19-02 10:08:00 Test Item Value Reference Range Interpretation Comments Bili Total (test code = Bili Total) 0.5 0.2-1.3 N [facility] HospitalCswmskuTHABUTETH8480-25-40 10:08:00 Test Item Value Reference Range Interpretation Comments AST (test code = AST) 10 See_Comment N [Auto mated message] The system which ge nerated this result transmit norris reference range : <=37. The reference range was not used to interpr et this result as darshana l/abnormal. [facility] HospitalDecdabxYBYKGOLAJ4645-08-03 10:08:00 Test Item Value Reference Range Interpretation Comments eGFR (test code = eGFR) 96 [facility] HospitalTifpgrsXOSDZNQYN2404-75-56 10:08:00 Test Item Value Reference Range Interpretation Comments BUN (test code = BUN) 13 7-22 N [facility] HospitalSsntiwlJSFSMLJFE8382-32-59 10:08:00 Test Item Value Reference Range Interpretation Comments Creatinine Lvl (test code = Creatinine 0.5 0.5-1.4 N Lvl) [facility] HospitalTrylnqmVVDRNBMAF1300-46-29 10:08:00 Test Item Value Reference Range Interpretation Comments Sodium Lvl (test code = Sodium Lvl) 146 135-145 H [facility] HospitalEhkjhsdYTJSALMWH6215-95-30 10:08:00 Test Item Value Reference Range Interpretation Comments Potassium Lvl (test code = Potassium 3.8 3.5-5.1 N Lvl) [facility] HospitalBkgpcasTTPUPHMIH1401-23-97 10:08:00 Test Item Value Reference Range Interpretation Comments Chloride Lvl (test code = Chloride Lvl) 108 95-109 N [facility] HospitalLmhduucVBOGQGXBV7723-88-30 10:08:00 Test Item Value Reference Range Interpretation Comments Glucose Lvl (test code = Glucose Lvl) 114 70-99 H [facility] HospitalPjrkgjoCNMIVCSRP5464-52-67 10:08:00 Test Item Value Reference Range Interpretation Comments Calcium Lvl (test code = Calcium Lvl) 7.4 8.5-10.5 L [facility] HospitalMaowzloJQCEDQIOH3395-78-26 10:08:00 Test Item Value Reference Range Interpretation Comments CO2 (test code = CO2) 28 24-32 N [facility]YajguzbCEPAYSLPYF0571-22-68 10:08:00 Test Item Value Reference Range Interpretation Comments MPV (test code = MPV) 9.9 7.4-10.4 N [facility] HospitalPtvjcszHQVBFWFVAH9319-34-46 10:08:00 Test Item Value Reference Range Interpretation Comments Platelet (test code = Platelet) 171 133-450 N [facility] HospitalBjarjwbSVLQGQZCFX8404-06-55 10:08:00 Test Item Value Reference Range Interpretation Comments RDW (test code = RDW) 15.9 11.5-14.5 H [facility] HospitalJjehnbuUQLGWIBEEN4959-09-28 10:08:00 Test Item Value Reference Range Interpretation Comments MCHC (test code = MCHC) 32.4 32.0-36.0 N [facility] HospitalTtvirjzAOQIWESCTK9894-98-63 10:08:00 Test Item Value Reference Range Interpretation Comments Hct (test code = Hct) 30.6 36.0-48.0 L [facility] HospitalGxrmzbmVQMVOMWMSF1852-42-07 10:08:00 Test Item Value Reference Range Interpretation Comments RBC (test code = RBC) 3.70 4.20-5.40 L [facility] HospitalErjdhsnVBOWGAVYXW3437-63-41 10:08:00 Test Item Value Reference Range Interpretation Comments WBC (test code = WBC) 11.2 3.7-10.4 H [facility] HospitalMehhpxfLJCQXOAHJP3522-81-57 10:08:00 Test Item Value Reference Range Interpretation Comments Hgb (test code = Hgb) 9.9 12.0-16.0 L [facility] HospitalLbueshbURCDBNQNWW9988-18-85 10:08:00 Test Item Value Reference Range Interpretation Comments MCV (test code = MCV) 82.7 81.0-99.0 N [facility] HospitalPrrpmrsCWNYMJGPJG5771-88-67 10:08:00 Test Item Value Reference Range Interpretation Comments MCH (test code = MCH) 26.8 pg 27.0-31.0 L [facility] HospitalPnlkqvlBTBCKYGIQF2405-37-22 10:08:00 Test Item Value Reference Range Interpretation Comments Eosinophils (test code = 2.0 See_Comment N [A utomated message] The Eosinophils) system which ge nerated this result tra nsmitted reference range : <=4.0. The reference r lina was not used to int erpret this result as normal/abnormal . [facility] HospitalWakzkwfEDRHKZKTJS5431-40-41 10:08:00 Test Item Value Reference Range Interpretation Comments Monocytes (test code = Monocytes) 4.0 2.0-12.0 N [facility] HospitalTrracthMADBPBISNA6542-90-80 10:08:00 Test Item Value Reference Range Interpretation Comments Basophils (test code = 0.1 See_Comment N [Aut omated message] The Basophils) system which ge nerated this result tra nsmitted reference range : <=1.0. The reference r lina was not used to int erpret this result as normal/abnormal . [facility] HospitalGqhtpglHPCEEHKKQJ6571-49-59 10:08:00 Test Item Value Reference Range Interpretation Comments Basophils # (test code 0.0 See_Comment N [Aut omated message] The = Basophils #) system which generated this result tra nsmitted reference range : <=0.2. The reference r lina was not used to int erpret this result as normal/abnormal . [facility] HospitalIfuhscsXXTOGCQAZE0033-92-22 10:08:00 Test Item Value Reference Range Interpretation Comments Eosinophils # (test code 0.2 See_Comment N [A utomated message] The = Eosinophils #) system whic h generated this result tra nsmitted reference range : <=0.5. The reference r lina was not used to int erpret this result as normal/abnormal . [facility] HospitalUdwpmyuRJAXLUJWDE3773-46-57 10:08:00 Test Item Value Reference Range Interpretation Comments Lymphocytes # (test code = Lymphocytes 1.4 1.0-5.5 N #) [facility] HospitalWkmymajAULTAZERZD4299-44-40 10:08:00 Test Item Value Reference Range Interpretation Comments Segs-Bands # (test code = Segs-Bands #) 9.1 1.5-8.1 H [facility] HospitalOdzegvpSURDLEBFRD9061-01-67 10:08:00 Test Item Value Reference Range Interpretation Comments Monocytes # (test code 0.5 See_Comment N [Aut omated message] The = Monocytes #) system which generated this result tra nsmitted reference range : <=0.8. The reference r lina was not used to int erpret this result as normal/abnormal . [facility]JcaedbqYWWKJMJRXB9591-41-30 10:08:00 Test Item Value Reference Range Interpretation Comments Segs (test code = Segs) 81.5 45.0-75.0 H [facility] HospitalQphbagcFYJSGESZFM1419-47-75 10:08:00 Test Item Value Reference Range Interpretation Comments Lymphocytes (test code = Lymphocytes) 12.4 20.0-40.0 L [facility] HospitalMxddqytGUXBNXWEUG7300-24-33 10:08:00 Test Item Value Reference Range Interpretation Comments Lymphocytes # (test code = Lymphocytes 1.4 1.0-5.5 N #) [facility] HospitalVfwoiuvUCDSJSFNXQ0387-61-99 10:08:00 Test Item Value Reference Range Interpretation Comments Segs-Bands # (test code = Segs-Bands #) 9.1 1.5-8.1 H [facility] HospitalCceanxfLJTJAKLEVX8492-77-69 10:08:00 Test Item Value Reference Range Interpretation Comments Monocytes # (test code 0.5 See_Comment N [Aut omated message] The = Monocytes #) system which generated this result tra nsmitted reference range : <=0.8. The reference r lina was not used to int erpret this result as normal/abnormal . [facility] HospitalXkgojjaFHXEMVMWZO6849-34-13 10:08:00 Test Item Value Reference Range Interpretation Comments Segs (test code = Segs) 81.5 45.0-75.0 H [facility] HospitalRlqpxwqTBCZROQYCP1688-86-69 10:08:00 Test Item Value Reference Range Interpretation Comments Lymphocytes (test code = Lymphocytes) 12.4 20.0-40.0 L [facility] HospitalOxfhfdhGGDVTAXTM4272-67-51 10:08:00 Test Item Value Reference Range Interpretation Comments Magnesium Lvl (test code = Magnesium 2.0 1.8-2.4 N Lvl) [facility] HospitalCoveujvHYPSTARRW7152-26-61 10:08:00 Test Item Value Reference Range Interpretation Comments A/G Ratio (test code = A/G Ratio) 1.0 0.7-1.6 N [facility] HospitalVtgvqmjRPKZKJHXJ9060-11-40 10:08:00 Test Item Value Reference Range Interpretation Comments Globulin (test code = Globulin) 2.8 2.0-4.0 N [facility] HospitalYrordkaVWVTSGZYC6934-31-50 10:08:00 Test Item Value Reference Range Interpretation Comments B/C Ratio (test code = B/C Ratio) 26 6-25 H [facility] HospitalTuvgqhlZICTHUBVO6062-95-31 10:08:00 Test Item Value Reference Range Interpretation Comments AGAP (test code = AGAP) 13.8 10.0-20.0 N [facility] HospitalHkmrbaoBSIIXFQSJ9403-98-53 10:08:00 Test Item Value Reference Range Interpretation Comments ALT (test code = ALT) 16 See_Comment N [Auto mated message] The system which ge nerated this result transmit norris reference range : <=65. The reference range was not used to interpr et this result as darshana l/abnormal. [facility] HospitalZchnpfoGUPEZQJOP1379-03-86 10:08:00 Test Item Value Reference Range Interpretation Comments Alk Phos (test code = Alk Phos) 70 39-136 N [facility] HospitalTzrlyyvSTBEXMVGW3241-24-29 10:08:00 Test Item Value Reference Range Interpretation Comments Total Protein (test code = Total 5.5 6.4-8.4 L Protein) [facility] HospitalBltotttIJNGGRFMG7114-31-42 10:08:00 Test Item Value Reference Range Interpretation Comments Albumin Lvl (test code = Albumin Lvl) 2.7 3.5-5.0 L [facility] HospitalFvvnggmWHKVKCXEA4061-65-38 10:08:00 Test Item Value Reference Range Interpretation Comments Bili Total (test code = Bili Total) 0.5 0.2-1.3 N [facility] HospitalXsjtmdxQVAFCILPN5918-71-52 10:08:00 Test Item Value Reference Range Interpretation Comments AST (test code = AST) 10 See_Comment N [Auto mated message] The system which ge nerated this result transmit norris reference range : <=37. The reference range was not used to interpr et this result as darshana l/abnormal. [facility] HospitalSepffsxOTCSFFZGK7218-42-77 10:08:00 Test Item Value Reference Range Interpretation Comments eGFR (test code = eGFR) 96 [facility] HospitalWcvnbguYWVTXPVEI2023-01-72 10:08:00 Test Item Value Reference Range Interpretation Comments BUN (test code = BUN) 13 7-22 N [facility] HospitalIcdzivvRQAYTAAYJ7378-52-59 10:08:00 Test Item Value Reference Range Interpretation Comments Creatinine Lvl (test code = Creatinine 0.5 0.5-1.4 N Lvl) [facility] HospitalKfppgasWOGYPPVGP7382-31-08 10:08:00 Test Item Value Reference Range Interpretation Comments Sodium Lvl (test code = Sodium Lvl) 146 135-145 H [facility] HospitalUculltuNGFBDBMKQ1515-92-56 10:08:00 Test Item Value Reference Range Interpretation Comments Potassium Lvl (test code = Potassium 3.8 3.5-5.1 N Lvl) [facility] HospitalXbkxxdbFFFNYJSAI3969-18-78 10:08:00 Test Item Value Reference Range Interpretation Comments Chloride Lvl (test code = Chloride Lvl) 108 95-109 N [facility] HospitalDaewocvBKEPIEYIQ7241-11-25 10:08:00 Test Item Value Reference Range Interpretation Comments Glucose Lvl (test code = Glucose Lvl) 114 70-99 H [facility] HospitalPngdzfuUZGLMDRVS3714-14-80 10:08:00 Test Item Value Reference Range Interpretation Comments Calcium Lvl (test code = Calcium Lvl) 7.4 8.5-10.5 L [facility] HospitalCuwcbvuCXGTLTLET5113-45-50 10:08:00 Test Item Value Reference Range Interpretation Comments CO2 (test code = CO2) 28 24-32 N [facility] HospitalQtocktmFMNPVNRRUM6759-42-39 10:08:00 Test Item Value Reference Range Interpretation Comments MPV (test code = MPV) 9.9 7.4-10.4 N [facility] HospitalHsduuvjVSPFPCNKAU1996-19-86 10:08:00 Test Item Value Reference Range Interpretation Comments Platelet (test code = Platelet) 171 133-450 N [facility] HospitalCbmsqmcPCTKMJBSYD8798-49-70 10:08:00 Test Item Value Reference Range Interpretation Comments RDW (test code = RDW) 15.9 11.5-14.5 H [facility] HospitalUqkxdcrEXXBSPATEY3470-35-09 10:08:00 Test Item Value Reference Range Interpretation Comments MCHC (test code = MCHC) 32.4 32.0-36.0 N [facility] HospitalUyljgbnKZMCOWSZOF5293-59-62 10:08:00 Test Item Value Reference Range Interpretation Comments Hct (test code = Hct) 30.6 36.0-48.0 L [facility] HospitalAvutwvjDWXACQBVJH7616-35-58 10:08:00 Test Item Value Reference Range Interpretation Comments RBC (test code = RBC) 3.70 4.20-5.40 L [facility] HospitalSqvygneNBOFVXFDAS4583-33-69 10:08:00 Test Item Value Reference Range Interpretation Comments WBC (test code = WBC) 11.2 3.7-10.4 H [facility] HospitalDlghejdYSWHUWHUDM9299-69-53 10:08:00 Test Item Value Reference Range Interpretation Comments Hgb (test code = Hgb) 9.9 12.0-16.0 L [facility] HospitalGkubyebXYAHVTFAKT1764-64-87 10:08:00 Test Item Value Reference Range Interpretation Comments MCV (test code = MCV) 82.7 81.0-99.0 N [facility] HospitalEvfepggBIBJZJKQVT4308-15-11 10:08:00 Test Item Value Reference Range Interpretation Comments MCH (test code = MCH) 26.8 pg 27.0-31.0 L [facility] HospitalQkqocfqUVZQVPAPSJ5527-75-62 10:08:00 Test Item Value Reference Range Interpretation Comments Eosinophils (test code = 2.0 See_Comment N [A utomated message] The Eosinophils) system which ge nerated this result tra nsmitted reference range : <=4.0. The reference r lina was not used to int erpret this result as normal/abnormal . [facility] HospitalVnlrnelRGINPDRAEM0298-74-32 10:08:00 Test Item Value Reference Range Interpretation Comments Monocytes (test code = Monocytes) 4.0 2.0-12.0 N [facility] HospitalMkmtcuyUCGNQSIYKX9908-71-18 10:08:00 Test Item Value Reference Range Interpretation Comments Basophils (test code = 0.1 See_Comment N [Aut omated message] The Basophils) system which ge nerated this result tra nsmitted reference range : <=1.0. The reference r lina was not used to int erpret this result as normal/abnormal . [facility] HospitalSuekbpbKOQLNFTJLL5713-21-72 10:08:00 Test Item Value Reference Range Interpretation Comments Basophils # (test code 0.0 See_Comment N [Aut omated message] The = Basophils #) system which generated this result tra nsmitted reference range : <=0.2. The reference r lina was not used to int erpret this result as normal/abnormal . [facility] HospitalBatvawvYGAFBUPOUE5161-66-23 10:08:00 Test Item Value Reference Range Interpretation Comments Eosinophils # (test code 0.2 See_Comment N [A utomated message] The = Eosinophils #) system whic h generated this result tra nsmitted reference range : <=0.5. The reference r lina was not used to int erpret this result as normal/abnormal . [facility] HospitalWitqaxoGKVAOCPPWH7280-44-46 10:08:00 Test Item Value Reference Range Interpretation Comments Lymphocytes # (test code = Lymphocytes 1.4 1.0-5.5 N #) [facility] HospitalPjgbrfiWEFFDLRYSP6979-08-89 10:08:00 Test Item Value Reference Range Interpretation Comments Segs-Bands # (test code = Segs-Bands #) 9.1 1.5-8.1 H [facility] HospitalBzqgzyuVVFVBSYLRP4416-01-45 10:08:00 Test Item Value Reference Range Interpretation Comments Monocytes # (test code 0.5 See_Comment N [Aut omated message] The = Monocytes #) system which generated this result tra nsmitted reference range : <=0.8. The reference r lina was not used to int erpret this result as normal/abnormal . [facility] HospitalNssyfigSCGGXHICQK6346-24-88 10:08:00 Test Item Value Reference Range Interpretation Comments Segs (test code = Segs) 81.5 45.0-75.0 H [facility] HospitalPodpkczWDJKZPPAQJ9686-56-14 10:08:00 Test Item Value Reference Range Interpretation Comments Lymphocytes (test code = Lymphocytes) 12.4 20.0-40.0 L [facility] HospitalFfztmxoDFKXXWIDG5215-19-21 10:08:00 Test Item Value Reference Range Interpretation Comments Magnesium Lvl (test code = Magnesium 2.0 1.8-2.4 N Lvl) [facility] HospitalWyclpqtSPHERRNBV9041-78-76 10:08:00 Test Item Value Reference Range Interpretation Comments A/G Ratio (test code = A/G Ratio) 1.0 0.7-1.6 N [facility] HospitalNelsqpjXTOZNXGMS2432-32-83 10:08:00 Test Item Value Reference Range Interpretation Comments Globulin (test code = Globulin) 2.8 2.0-4.0 N [facility] HospitalVqunvlnDDUQULYIU1470-29-65 10:08:00 Test Item Value Reference Range Interpretation Comments B/C Ratio (test code = B/C Ratio) 26 6-25 H [facility] HospitalTtwburxRMRDNNWJK6142-45-62 10:08:00 Test Item Value Reference Range Interpretation Comments AGAP (test code = AGAP) 13.8 10.0-20.0 N [facility] HospitalAptoozaSYENVMHIB6516-51-89 10:08:00 Test Item Value Reference Range Interpretation Comments ALT (test code = ALT) 16 See_Comment N [Auto mated message] The system which ge nerated this result transmit norris reference range : <=65. The reference range was not used to interpr et this result as darshana l/abnormal. [facility] HospitalLvzlglqNKDSOFXHU6834-08-12 10:08:00 Test Item Value Reference Range Interpretation Comments Alk Phos (test code = Alk Phos) 70 39-136 N [facility] HospitalRoeodwoBCAARROXR5129-75-86 10:08:00 Test Item Value Reference Range Interpretation Comments Total Protein (test code = Total 5.5 6.4-8.4 L Protein) [facility] HospitalYrmxlinAXUFNFSBK9566-56-89 10:08:00 Test Item Value Reference Range Interpretation Comments Albumin Lvl (test code = Albumin Lvl) 2.7 3.5-5.0 L [facility] HospitalEarbficYLNLHOSJQ8728-58-90 10:08:00 Test Item Value Reference Range Interpretation Comments Bili Total (test code = Bili Total) 0.5 0.2-1.3 N [facility] HospitalFjritfvDMDWGZEVB7502-75-32 10:08:00 Test Item Value Reference Range Interpretation Comments AST (test code = AST) 10 See_Comment N [Auto mated message] The system which ge nerated this result transmit norris reference range : <=37. The reference range was not used to interpr et this result as darshana l/abnormal. [facility] HospitalRfxokupLTRDACTTV5578-88-79 10:08:00 Test Item Value Reference Range Interpretation Comments eGFR (test code = eGFR) 96 [facility] HospitalFimukibRKHHPFJTS6329-98-47 10:08:00 Test Item Value Reference Range Interpretation Comments BUN (test code = BUN) 13 7-22 N [facility] HospitalZkbtywxOJQVAOADV3194-27-05 10:08:00 Test Item Value Reference Range Interpretation Comments Creatinine Lvl (test code = Creatinine 0.5 0.5-1.4 N Lvl) [facility] HospitalFlwlgfyXAHXTFOZE7449-18-55 10:08:00 Test Item Value Reference Range Interpretation Comments Sodium Lvl (test code = Sodium Lvl) 146 135-145 H [facility] HospitalWerkqyqABGMDSQGD7599-74-89 10:08:00 Test Item Value Reference Range Interpretation Comments Potassium Lvl (test code = Potassium 3.8 3.5-5.1 N Lvl) [facility] HospitalKjyeuflSRLJDSNUP2804-49-79 10:08:00 Test Item Value Reference Range Interpretation Comments Chloride Lvl (test code = Chloride Lvl) 108 95-109 N [facility] HospitalApeijqqGHSGRJQDI6785-01-60 10:08:00 Test Item Value Reference Range Interpretation Comments Glucose Lvl (test code = Glucose Lvl) 114 70-99 H [facility] HospitalWmiocblQKEYDYRBB7324-26-75 10:08:00 Test Item Value Reference Range Interpretation Comments Calcium Lvl (test code = Calcium Lvl) 7.4 8.5-10.5 L [facility] HospitalKqobxqsSWFFEHWHC3839-48-95 10:08:00 Test Item Value Reference Range Interpretation Comments CO2 (test code = CO2) 28 24-32 N [facility] HospitalLzupqsmBEQUVRJEOG5141-37-02 10:08:00 Test Item Value Reference Range Interpretation Comments MPV (test code = MPV) 9.9 7.4-10.4 N [facility] HospitalHlopwggQSXMFLMYWT5264-56-55 10:08:00 Test Item Value Reference Range Interpretation Comments Platelet (test code = Platelet) 171 133-450 N [facility] HospitalNwhmbojLJBKGBSIOT9647-38-60 10:08:00 Test Item Value Reference Range Interpretation Comments RDW (test code = RDW) 15.9 11.5-14.5 H [facility] HospitalXuzszvhFFLQHHAAXI2196-32-50 10:08:00 Test Item Value Reference Range Interpretation Comments MCHC (test code = MCHC) 32.4 32.0-36.0 N [facility] HospitalCuogsycSVNVYCFZZR5935-02-81 10:08:00 Test Item Value Reference Range Interpretation Comments Hct (test code = Hct) 30.6 36.0-48.0 L [facility] HospitalHgrjsnqBYMLUDGPPO3639-39-76 10:08:00 Test Item Value Reference Range Interpretation Comments RBC (test code = RBC) 3.70 4.20-5.40 L [facility] HospitalYkwbtnrCDPCKHJSRJ1506-97-68 10:08:00 Test Item Value Reference Range Interpretation Comments WBC (test code = WBC) 11.2 3.7-10.4 H [facility] HospitalXcchlmdIXUVMPFDKO3087-83-96 10:08:00 Test Item Value Reference Range Interpretation Comments Hgb (test code = Hgb) 9.9 12.0-16.0 L [facility] HospitalJbkrmdhPPTARDHXFK6390-52-02 10:08:00 Test Item Value Reference Range Interpretation Comments MCV (test code = MCV) 82.7 81.0-99.0 N [facility] HospitalHeehryvCWVVAVORZP0488-82-83 10:08:00 Test Item Value Reference Range Interpretation Comments MCH (test code = MCH) 26.8 pg 27.0-31.0 L [facility] HospitalQrcbzkeAPEMLSVPPW3876-17-97 10:08:00 Test Item Value Reference Range Interpretation Comments Eosinophils (test code = 2.0 See_Comment N [A utomated message] The Eosinophils) system which ge nerated this result tra nsmitted reference range : <=4.0. The reference r lina was not used to int erpret this result as normal/abnormal . [facility] HospitalMchsjnhHDAOAGYVML4687-21-37 10:08:00 Test Item Value Reference Range Interpretation Comments Monocytes (test code = Monocytes) 4.0 2.0-12.0 N [facility] HospitalFnqmiwoWICVIAWCMC1914-42-12 10:08:00 Test Item Value Reference Range Interpretation Comments Basophils (test code = 0.1 See_Comment N [Aut omated message] The Basophils) system which ge nerated this result tra nsmitted reference range : <=1.0. The reference r lina was not used to int erpret this result as normal/abnormal . [facility] HospitalXkospucHGMAOJZARY8211-95-35 10:08:00 Test Item Value Reference Range Interpretation Comments Basophils # (test code 0.0 See_Comment N [Aut omated message] The = Basophils #) system which generated this result tra nsmitted reference range : <=0.2. The reference r lina was not used to int erpret this result as normal/abnormal . [facility] HospitalHfxjyzbHDPZPLPWDG2957-23-43 10:08:00 Test Item Value Reference Range Interpretation Comments Eosinophils # (test code 0.2 See_Comment N [A utomated message] The = Eosinophils #) system whic h generated this result tra nsmitted reference range : <=0.5. The reference r lina was not used to int erpret this result as normal/abnormal . [facility]oamwyaJnbmerakinpl4192-[facility]-43 00:40:07 Test Item Value Reference Range Interpretation Comments Culture: Urine (test code = Culture: Urine) [facility]QyshjggSdtvtuvbmgyw5779-16-12 00:40:07 Test Item Value Reference Range Interpretation Comments Culture: Urine (test code = Culture: Urine) [facility]XsbhmifNrolvsjkbbri8592-49-24 00:40:07 Test Item Value Reference Range Interpretation Comments Culture: Urine (test code = Culture: Urine) [facility] HospitalExbljmzMDOCFVKEF9438-81-01 10:40:00 Test Item Value Reference Range Interpretation Comments Bili Total (test code = Bili Total) 0.4 0.2-1.3 N [facility] HospitalTioukxrDWMMJEQBU6792-55-36 10:40:00 Test Item Value Reference Range Interpretation Comments ALT (test code = ALT) 18 See_Comment N [Auto mated message] The system which ge nerated this result transmit norris reference range : <=65. The reference range was not used to interpr et this result as darshana l/abnormal. [facility]BopgkptBWTJEGSCO5710-39-95 10:40:00 Test Item Value Reference Range Interpretation Comments Alk Phos (test code = Alk Phos) 62 39-136 N [facility]vineVpjzztvGSSFDVFXL1157-25-37 10:40:00 Test Item Value Reference Range Interpretation Comments Total Protein (test code = Total 6.1 6.4-8.4 L Protein) [facility] HospitalKlcrabbGWJOOOPHU1304-41-74 10:40:00 Test Item Value Reference Range Interpretation Comments AST (test code = AST) 14 See_Comment N [Auto mated message] The system which ge nerated this result transmit norris reference range : <=37. The reference range was not used to interpr et this result as darshana l/abnormal. [facility]vineGowkekaXAWBKJMMZ7658-29-08 10:40:00 Test Item Value Reference Range Interpretation Comments Albumin Lvl (test code = Albumin Lvl) 2.7 3.5-5.0 L [facility]vineEjhwyllDEHNMELKY6597-21-48 10:40:00 Test Item Value Reference Range Interpretation Comments A/G Ratio (test code = A/G Ratio) 0.8 0.7-1.6 N [facility]vineGxkmezgNLLQVVYDA5050-57-57 10:40:00 Test Item Value Reference Range Interpretation Comments Globulin (test code = Globulin) 3.4 2.0-4.0 N [facility]vineBhzdjfzBXVCPWLGY4863-21-00 10:40:00 Test Item Value Reference Range Interpretation Comments B/C Ratio (test code = B/C Ratio) 14 6-25 N [facility]vineRcstfbqRDNQOYPTD0660-06-48 10:40:00 Test Item Value Reference Range Interpretation Comments Bili Total (test code = Bili Total) 0.4 0.2-1.3 N [facility] HospitalVavwkhgWLLWXOVAP8690-22-88 10:40:00 Test Item Value Reference Range Interpretation Comments ALT (test code = ALT) 18 See_Comment N [Auto mated message] The system which ge nerated this result transmit norris reference range : <=65. The reference range was not used to interpr et this result as darshana l/abnormal. [facility]vineRbzfjvxGWKQCVUDJ3166-95-99 10:40:00 Test Item Value Reference Range Interpretation Comments Alk Phos (test code = Alk Phos) 62 39-136 N [facility]vineWfaiplwOIDHOLGOS4635-81-60 10:40:00 Test Item Value Reference Range Interpretation Comments Total Protein (test code = Total 6.1 6.4-8.4 L Protein) [facility]vineMsmtakqCSJHFEENQ3464-99-23 10:40:00 Test Item Value Reference Range Interpretation Comments AST (test code = AST) 14 See_Comment N [Auto mated message] The system which ge nerated this result transmit norris reference range : <=37. The reference range was not used to interpr et this result as darshana l/abnormal. [facility]vineOhjrzikMDITWRPWP2201-56-01 10:40:00 Test Item Value Reference Range Interpretation Comments Albumin Lvl (test code = Albumin Lvl) 2.7 3.5-5.0 L [facility]vineNsnvqgoQPLNDKRJP0257-19-25 10:40:00 Test Item Value Reference Range Interpretation Comments A/G Ratio (test code = A/G Ratio) 0.8 0.7-1.6 N [facility]vineNuymhvaTJGNAQTYA4065-53-11 10:40:00 Test Item Value Reference Range Interpretation Comments Globulin (test code = Globulin) 3.4 2.0-4.0 N [facility]rapevineDycmgzsEUZJATZEM1365-01-70 10:40:00 Test Item Value Reference Range Interpretation Comments B/C Ratio (test code = B/C Ratio) 14 6-25 N [facility]rapevineOdivhuqYWODIKYZM4274-02-04 10:40:00 Test Item Value Reference Range Interpretation Comments Bili Total (test code = Bili Total) 0.4 0.2-1.3 N [facility]vineYjhkgtnWREFQVZVB8567-09-49 10:40:00 Test Item Value Reference Range Interpretation Comments ALT (test code = ALT) 18 See_Comment N [Auto mated message] The system which ge nerated this result transmit norris reference range : <=65. The reference range was not used to interpr et this result as darshana l/abnormal. [facility] HospitalNmzmiyuDWUWCIBRN7825-63-60 10:40:00 Test Item Value Reference Range Interpretation Comments Alk Phos (test code = Alk Phos) 62 39-136 N [facility] HospitalXltbmkyNQQZHYKXX9286-66-60 10:40:00 Test Item Value Reference Range Interpretation Comments Total Protein (test code = Total 6.1 6.4-8.4 L Protein) [facility] HospitalZhtzaakFFQIUEESN7068-50-22 10:40:00 Test Item Value Reference Range Interpretation Comments AST (test code = AST) 14 See_Comment N [Auto mated message] The system which ge nerated this result transmit norris reference range : <=37. The reference range was not used to interpr et this result as darshana l/abnormal. [facility] HospitalHhdhfqiOSFGTGMUG4755-35-00 10:40:00 Test Item Value Reference Range Interpretation Comments Albumin Lvl (test code = Albumin Lvl) 2.7 3.5-5.0 L [facility] HospitalNhotwzgXTZXCNIYW5509-99-37 10:40:00 Test Item Value Reference Range Interpretation Comments A/G Ratio (test code = A/G Ratio) 0.8 0.7-1.6 N [facility] HospitalBcumfouVOPRCRMWE9756-39-76 10:40:00 Test Item Value Reference Range Interpretation Comments Globulin (test code = Globulin) 3.4 2.0-4.0 N [facility] HospitalMbcfnhqVDGEURMSX3105-73-97 10:40:00 Test Item Value Reference Range Interpretation Comments B/C Ratio (test code = B/C Ratio) 14 6-25 N [facility]KfyqegcALIFJHBGYM1809-69-47 18:27:00 Test Item Value Reference Range Interpretation Comments UA Sq Epi (test code Occasional /LPF = UA Sq Epi) *NA*(04/21/2012 12:27:00) [facility]mjiqgqJWKGFWYVKQ8676[facility]66-08 18:27:00 Test Item Value Reference Range Interpretation Comments UA Leuk Est (test Moderate A code = UA Leuk Est) *ABN*(04/21/2012 12:27:00) [facility]QvziyndQLCHKUJESH8510-15-53 18:27:00 Test Item Value Reference Range Interpretation Comments UA WBC (test code = 6 See_Comment H [Automa norris message] The UA WBC) system which ge nerated this result transmit norris reference range : <=5. The reference range was not used to interpr et this result as darshana l/abnormal. [facility] HospitalEfzlkyhEEHCGZIPJA6373-90-96 18:27:00 Test Item Value Reference Range Interpretation Comments UA RBC (test code = 34 See_Comment H [Automa norris message] The UA RBC) system which ge nerated this result transmit norris reference range : <=2. The reference range was not used to interpr et this result as darshana l/abnormal. [facility] HospitalRaomvbeUSRNAMUPRW3202-24-08 18:27:00 Test Item Value Reference Range Interpretation Comments UA CaOx Mey (test Occasional /HPF code = UA CaOx Mey) *NA*(04/21/2012 12:27:00) [facility]LcbfdepKAIIULHPPA7665-05-09 18:27:00 Test Item Value Reference Range Interpretation Comments UA Mucus (test code = Few /LPF UA Mucus) *NA*(04/21/2012 12:27:00) [facility]UsujvyaLSCEGWFAKE0102-80-41 18:27:00 Test Item Value Reference Range Interpretation Comments UA Bacteria (test code Occasional /HPF = UA Bacteria) *NA*(04/21/2012 12:27:00) [facility] HospitalBzxbjwwZBLMVHWUAU8218-39-43 18:27:00 Test Item Value Reference Range Interpretation Comments UA Bili (test code = Negative *NA*(04/21/2012 UA Bili) 12:27:00) [facility] HospitalEtrgemvROCGMTYJSZ9586-27-45 18:27:00 Test Item Value Reference Range Interpretation Comments UA Blood (test code = Moderate A UA Blood) *ABN*(04/21/2012 12:27:00) [facility] HospitalHfqposoILWOKWLGII9759-18-04 18:27:00 Test Item Value Reference Range Interpretation Comments UA Nitrite (test code Negative (04/21/2012 N = UA Nitrite) 12:27:00) [facility] HospitalLguerqpALMKHTIMKG4889-25-06 18:27:00 Test Item Value Reference Range Interpretation Comments UA Glucose (test code Negative mg/dL = UA Glucose) *NA*(04/21/2012 12:27:00) [facility] HospitalMtzvndyZXFBSHFFCI2069-95-70 18:27:00 Test Item Value Reference Range Interpretation Comments UA Ketones (test code = 20 mg/dL A UA Ketones) *ABN*(04/21/2012 12:27:00) [facility] HospitalCyrnecgTHQSKGKYLG8688-41-21 18:27:00 Test Item Value Reference Range Interpretation Comments UA Urobilinogen (test code *NA*(04/21/2012 0.1-1.0 = UA Urobilinogen) 12:27:00) [facility] HospitalXdnuobxURLQABOKUN0874-49-78 18:27:00 Test Item Value Reference Range Interpretation Comments UA Color (test code = UA Color) Ltyellow [facility] HospitalZeykrqhRKSYZDXHMG0930-23-63 18:27:00 Test Item Value Reference Range Interpretation Comments UA Protein (test code Negative mg/dL N = UA Protein) (04/21/2012 12:27:00) [facility] HospitalZpfnrqrFWIFCQRACA9399-68-03 18:27:00 Test Item Value Reference Range Interpretation Comments UA Turbidity (test code = Clear (04/21/2012 N UA Turbidity) 12:27:00) [facility] HospitalColbqyyTWRQLRMDME1944-28-91 18:27:00 Test Item Value Reference Range Interpretation Comments UA pH (test code = UA pH) 5.0 5.0-8.0 N [facility] HospitalKwryqkwRUQKMJCVCR8384-42-28 18:27:00 Test Item Value Reference Range Interpretation Comments UA Spec Grav (test code = UA Spec Grav) 1.011 N [facility] HospitalUrtdsdhCQKCPCQZRW1328-46-06 18:27:00 Test Item Value Reference Range Interpretation Comments UA Sq Epi (test code Occasional /LPF = UA Sq Epi) *NA*(04/21/2012 12:27:00) [facility] HospitalDwldiqeFURVEJNRRU2300-78-97 18:27:00 Test Item Value Reference Range Interpretation Comments UA Leuk Est (test Moderate A code = UA Leuk Est) *ABN*(04/21/2012 12:27:00) [facility] HospitalRfjibhgKTKCRMOSTM7230-87-61 18:27:00 Test Item Value Reference Range Interpretation Comments UA WBC (test code = 6 See_Comment H [Automa norris message] The UA WBC) system which ge nerated this result transmit norris reference range : <=5. The reference range was not used to interpr et this result as darshana l/abnormal. [facility] HospitalLyqdjnhJLGHITYXZC3373-89-52 18:27:00 Test Item Value Reference Range Interpretation Comments UA RBC (test code = 34 See_Comment H [Automa norris message] The UA RBC) system which ge nerated this result transmit norris reference range : <=2. The reference range was not used to interpr et this result as darshana l/abnormal. [facility] HospitalVtktlihSHQJFIUQDY4845-05-99 18:27:00 Test Item Value Reference Range Interpretation Comments UA CaOx Mey (test Occasional /HPF code = UA CaOx Mey) *NA*(04/21/2012 12:27:00) [facility] HospitalWrelhlcUPBUJONZCD1523-55-74 18:27:00 Test Item Value Reference Range Interpretation Comments UA Mucus (test code = Few /LPF UA Mucus) *NA*(04/21/2012 12:27:00) [facility] HospitalNwfykbnXEBYLEPFEB1705-85-07 18:27:00 Test Item Value Reference Range Interpretation Comments UA Bacteria (test code Occasional /HPF = UA Bacteria) *NA*(04/21/2012 12:27:00) [facility] HospitalSyiquamTVUTXERPIH0362-75-97 18:27:00 Test Item Value Reference Range Interpretation Comments UA Bili (test code = Negative *NA*(04/21/2012 UA Bili) 12:27:00) [facility] HospitalMsqrkztEXZCWSHKGU1262-00-84 18:27:00 Test Item Value Reference Range Interpretation Comments UA Blood (test code = Moderate A UA Blood) *ABN*(04/21/2012 12:27:00) [facility] HospitalJhnrxyeQTOAQTXZNX2639-23-24 18:27:00 Test Item Value Reference Range Interpretation Comments UA Nitrite (test code Negative (04/21/2012 N = UA Nitrite) 12:27:00) [facility] HospitalHzpjqinUADXNURUFO4258-90-93 18:27:00 Test Item Value Reference Range Interpretation Comments UA Glucose (test code Negative mg/dL = UA Glucose) *NA*(04/21/2012 12:27:00) [facility] HospitalTakdpogJGVKBEUWLN3674-20-10 18:27:00 Test Item Value Reference Range Interpretation Comments UA Ketones (test code = 20 mg/dL A UA Ketones) *ABN*(04/21/2012 12:27:00) [facility] HospitalKgznrwwXQHHCSAURI3934-50-01 18:27:00 Test Item Value Reference Range Interpretation Comments UA Urobilinogen (test code *NA*(04/21/2012 0.1-1.0 = UA Urobilinogen) 12:27:00) [facility] HospitalCsggsmaQLNERNPBBZ0199-91-70 18:27:00 Test Item Value Reference Range Interpretation Comments UA Color (test code = UA Color) Ltyellow [facility] HospitalOuducbhNMTNITXRRF1243-02-16 18:27:00 Test Item Value Reference Range Interpretation Comments UA Protein (test code Negative mg/dL N = UA Protein) (04/21/2012 12:27:00) [facility] HospitalTrrfirmEZZASVMYEV7504-67-28 18:27:00 Test Item Value Reference Range Interpretation Comments UA Turbidity (test code = Clear (04/21/2012 N UA Turbidity) 12:27:00) [facility] HospitalZxapczjVPVXQZDKZJ9595-44-69 18:27:00 Test Item Value Reference Range Interpretation Comments UA pH (test code = UA pH) 5.0 5.0-8.0 N [facility] HospitalQxsqxbqZLPGVUZJXR9177-60-83 18:27:00 Test Item Value Reference Range Interpretation Comments UA Spec Grav (test code = UA Spec Grav) 1.011 N [facility] HospitalKbohtmmKKZAWTEQZW8696-97-65 18:27:00 Test Item Value Reference Range Interpretation Comments UA Sq Epi (test code Occasional /LPF = UA Sq Epi) *NA*(04/21/2012 12:27:00) [facility] HospitalWgsihrfYPTKOXILKW3597-58-33 18:27:00 Test Item Value Reference Range Interpretation Comments UA Leuk Est (test Moderate A code = UA Leuk Est) *ABN*(04/21/2012 12:27:00) [facility] HospitalGsfpzwgLYALGBQIPW5509-72-68 18:27:00 Test Item Value Reference Range Interpretation Comments UA WBC (test code = 6 See_Comment H [Automa norris message] The UA WBC) system which ge nerated this result transmit norris reference range : <=5. The reference range was not used to interpr et this result as darshana l/abnormal. [facility] HospitalFmhiycyLUIIDEZJLP5016-55-28 18:27:00 Test Item Value Reference Range Interpretation Comments UA RBC (test code = 34 See_Comment H [Automa norris message] The UA RBC) system which ge nerated this result transmit norris reference range : <=2. The reference range was not used to interpr et this result as darshana l/abnormal. [facility] HospitalWzuadsuEFBWHNGDFO4063-86-38 18:27:00 Test Item Value Reference Range Interpretation Comments UA CaOx Mey (test Occasional /HPF code = UA CaOx Mey) *NA*(04/21/2012 12:27:00) [facility] HospitalXrrjlxtMVNFFOHGKB9621-02-38 18:27:00 Test Item Value Reference Range Interpretation Comments UA Mucus (test code = Few /LPF UA Mucus) *NA*(04/21/2012 12:27:00) [facility] HospitalHoidrksXUBVBCLTNB6605-47-74 18:27:00 Test Item Value Reference Range Interpretation Comments UA Bacteria (test code Occasional /HPF = UA Bacteria) *NA*(04/21/2012 12:27:00) [facility] HospitalUuxvrqmFSNRBRLHAV7817-30-44 18:27:00 Test Item Value Reference Range Interpretation Comments UA Bili (test code = Negative *NA*(04/21/2012 UA Bili) 12:27:00) [facility] HospitalAzkzuegMXUICWRNXT1535-88-67 18:27:00 Test Item Value Reference Range Interpretation Comments UA Blood (test code = Moderate A UA Blood) *ABN*(04/21/2012 12:27:00) [facility] HospitalRypvbsqCEYTMKCRUL3014-33-00 18:27:00 Test Item Value Reference Range Interpretation Comments UA Nitrite (test code Negative (04/21/2012 N = UA Nitrite) 12:27:00) [facility] HospitalOjxdrahYKNLWOWKIV2813-76-06 18:27:00 Test Item Value Reference Range Interpretation Comments UA Glucose (test code Negative mg/dL = UA Glucose) *NA*(04/21/2012 12:27:00) [facility] HospitalLxgfudqOYIICVEOUX0309-79-58 18:27:00 Test Item Value Reference Range Interpretation Comments UA Ketones (test code = 20 mg/dL A UA Ketones) *ABN*(04/21/2012 12:27:00) [facility] HospitalQkvkcfhJNNYTZQMTY9804-44-71 18:27:00 Test Item Value Reference Range Interpretation Comments UA Urobilinogen (test code *NA*(04/21/2012 0.1-1.0 = UA Urobilinogen) 12:27:00) [facility] HospitalNujmbnjHFPHNTLIRM7307-57-13 18:27:00 Test Item Value Reference Range Interpretation Comments UA Color (test code = UA Color) Ltyellow [facility] HospitalHvrbdozLZXVOISRUJ1812-61-62 18:27:00 Test Item Value Reference Range Interpretation Comments UA Protein (test code Negative mg/dL N = UA Protein) (04/21/2012 12:27:00) [facility] HospitalEbrzzxiNUNVQSIDYG9984-03-75 18:27:00 Test Item Value Reference Range Interpretation Comments UA Turbidity (test code = Clear (04/21/2012 N UA Turbidity) 12:27:00) [facility] HospitalOnuzolxHCOQACCMHW6061-83-29 18:27:00 Test Item Value Reference Range Interpretation Comments UA pH (test code = UA pH) 5.0 5.0-8.0 N [facility] HospitalYmtvwzaSJUYXAYYJO2800-74-87 18:27:00 Test Item Value Reference Range Interpretation Comments UA Spec Grav (test code = UA Spec Grav) 1.011 [address] [facility]RpjxrcvBQPNNYVCL6690-46-85 09:55:00 Test Item Value Reference Range Interpretation Comments Phosphorus (test code = Phosphorus) 2.8 2.5-4.5 N [facility] HospitalUgjirohGCAGLBQCK5601-72-53 09:55:00 Test Item Value Reference Range Interpretation Comments Magnesium Lvl (test code = Magnesium 1.8 1.8-2.4 N Lvl) [facility] HospitalUbyimncEVKLZMCHP4591-18-30 09:55:00 Test Item Value Reference Range Interpretation Comments Phosphorus (test code = Phosphorus) 2.8 2.5-4.5 N [facility] HospitalAuxunkeCRIWVSHXG1275-93-01 09:55:00 Test Item Value Reference Range Interpretation Comments Magnesium Lvl (test code = Magnesium 1.8 1.8-2.4 N Lvl) [facility] HospitalHifiylcFRLNRJIBZ8061-03-48 09:55:00 Test Item Value Reference Range Interpretation Comments Phosphorus (test code = Phosphorus) 2.8 2.5-4.5 N [facility] HospitalLqbakaqOUJWKWTXL3079-08-56 09:55:00 Test Item Value Reference Range Interpretation Comments Magnesium Lvl (test code = Magnesium 1.8 1.8-2.4 N Lvl) [facility] HospitalIlkqaydJEFNAYTOO4228-39-27 00:11:00 Test Item Value Reference Range Interpretation Comments Phosphorus (test code = Phosphorus) 2.9 2.5-4.5 N [facility]LzwxepnPZYOYWSWIL8120-72-45 00:11:00 Test Item Value Reference Range Interpretation Comments Plt Morph (test code = Normal (04/20/2012 N Plt Morph) 18:11:00) [facility] HospitalPqvgciaZRUHGIUJLB0794-90-85 00:11:00 Test Item Value Reference Range Interpretation Comments RBC Morph (test code = Normal (04/20/2012 N RBC Morph) 18:11:00) [facility] HospitalIwqxkvrOKEKZUCQJ8720-97-11 00:11:00 Test Item Value Reference Range Interpretation Comments Phosphorus (test code = Phosphorus) 2.9 2.5-4.5 N [facility] HospitalZlhudpzZXNHWFQADR8373-69-65 00:11:00 Test Item Value Reference Range Interpretation Comments Plt Morph (test code = Normal (04/20/2012 N Plt Morph) 18:11:00) [facility]XihhnalSGMLPHDYTL8682-47-40 00:11:00 Test Item Value Reference Range Interpretation Comments RBC Morph (test code = Normal (04/20/2012 N RBC Morph) 18:11:00) [facility] HospitalYdrujpiLDHEKSKJH8808-03-36 00:11:00 Test Item Value Reference Range Interpretation Comments Phosphorus (test code = Phosphorus) 2.9 2.5-4.5 N [facility] HospitalNrsrvsaKIVEGNRMKW9209-19-13 00:11:00 Test Item Value Reference Range Interpretation Comments Plt Morph (test code = Normal (04/20/2012 N Plt Morph) 18:11:00) [facility] HospitalYvzmuaqBOTPLISQSC4718-63-75 00:11:00 Test Item Value Reference Range Interpretation Comments RBC Morph (test code = Normal (04/20/2012 N RBC Morph) 18:11:00) [facility] CNNBAFNG8547-27-[facility] 22:00:00 Test Item Value Reference Range Interpretation Comments MRSA by PCR (test Negative 1(04/20/2012 N code = MRSA by PCR) 16:00:00) [facility] DIIGIJDD3742-44-97 22:00:00 Test Item Value Reference Range Interpretation Comments MRSA by PCR (test Negative 1(04/20/2012 N code = MRSA by PCR) 16:00:00) [facility] XJKPMCGG9728-17-75 22:00:00 Test Item Value Reference Range Interpretation Comments MRSA by PCR (test Negative 1(04/20/2012 N code = MRSA by PCR) 16:00:00) [facility] QyletozXHWMKHTTU8355-34-89 10:47:00 Test Item Value Reference Range Interpretation Comments LDL (test code = LDL) 136 See_Comment H [Auto mated message] The system which ge nerated this result transmit norris reference range : <=129. The reference range was not used to interpr et this result as darshana l/abnormal. [facility] IwsnygzPMLMAYNBC7375-90-86 10:47:00 Test Item Value Reference Range Interpretation Comments Chol (test code = Chol) 211 120-200 H [facility] HuwbrrdZWEZLIVLQ1727-78-46 10:47:00 Test Item Value Reference Range Interpretation Comments Trig (test code = 193 See_Comment N [Automate d message] The Trig) system which ge nerated this result transmit norris reference range : <=200. The reference range was not used to interpr et this result as darshana l/abnormal. [facility] EnfinjgNROCVKVST4817-21-62 10:47:00 Test Item Value Reference Range Interpretation Comments HDL (test code = HDL) 36 N [facility] RqjrkgwSHFGHKRXQ5924-22-83 10:47:00 Test Item Value Reference Range Interpretation Comments CHD Risk (test code = CHD Risk) 5.86 3.90-5.80 H [facility] GvhtexbOMWQZNTAS1274-04-66 10:47:00 Test Item Value Reference Range Interpretation Comments LDL (test code = LDL) 136 See_Comment H [Auto mated message] The system which ge nerated this result transmit norris reference range : <=129. The reference range was not used to interpr et this result as darshana l/abnormal. [facility] UqkxigwHXZVFYKBA9367-78-46 10:47:00 Test Item Value Reference Range Interpretation Comments Chol (test code = Chol) 211 120-200 H [facility] EbvklarVLCSUMIWS6503-44-70 10:47:00 Test Item Value Reference Range Interpretation Comments Trig (test code = 193 See_Comment N [Automate d message] The Trig) system which ge nerated this result transmit norris reference range : <=200. The reference range was not used to interpr et this result as darshana l/abnormal. [facility] TuyijnzBOQXZQYWH0398-71-15 10:47:00 Test Item Value Reference Range Interpretation Comments HDL (test code = HDL) 36 N [facility]CtqvtsdPRMFPLVUU6705-91-56 10:47:00 Test Item Value Reference Range Interpretation Comments CHD Risk (test code = CHD Risk) 5.86 3.90-5.80 H [facility]vineYwljbbdFDQSUKOMR8199-54-64 10:47:00 Test Item Value Reference Range Interpretation Comments LDL (test code = LDL) 136 See_Comment H [Auto mated message] The system which ge nerated this result transmit norris reference range : <=129. The reference range was not used to interpr et this result as darshana l/abnormal. [facility]vineZqbmzxhXZDYRVTQV3850-51-86 10:47:00 Test Item Value Reference Range Interpretation Comments Chol (test code = Chol) 211 120-200 H [facility]vineBgtzqrrWRELTSMXM2976-21-37 10:47:00 Test Item Value Reference Range Interpretation Comments Trig (test code = 193 See_Comment N [Automate d message] The Trig) system which ge nerated this result transmit norris reference range : <=200. The reference range was not used to interpr et this result as darshana l/abnormal. [facility]vineXdbfmwlKOMVDIUJD6164-61-60 10:47:00 Test Item Value Reference Range Interpretation Comments HDL (test code = HDL) 36 N [facility]vineZtoguxoDKXKRBUBX2857-13-26 10:47:00 Test Item Value Reference Range Interpretation Comments CHD Risk (test code = CHD Risk) 5.86 3.90-5.80 H [facility]vineQzktkclCVPQQKCTC1342-34-74 10:45:00 Test Item Value Reference Range Interpretation Comments TSH (test code = TSH) 0.631 0.360-3.740 N [facility]vineOqtnsxuZMDWNZAIG0556-94-11 10:45:00 Test Item Value Reference Range Interpretation Comments Phosphorus (test code = Phosphorus) 3.2 2.5-4.5 N [facility]vineOwvoyctUQSOFLRGCQ8251-89-28 10:45:00 Test Item Value Reference Range Interpretation Comments PTT (test code = PTT) 35.0 s 22.9-35.8 N [facility]vineVesipbtCNLCFRTFKD5959-69-72 10:45:00 Test Item Value Reference Range Interpretation Comments PT (test code = PT) 14.0 s 12.0-14.7 N [facility] HospitalVrkprfrZGIAMLSUAT6225-72-96 10:45:00 Test Item Value Reference Range Interpretation Comments INR (test code = INR) 1.06 0.85-1.17 N [facility] HospitalVsmmjriFMCNPULXM7938-24-14 10:45:00 Test Item Value Reference Range Interpretation Comments TSH (test code = TSH) 0.631 0.360-3.740 N [facility] HospitalJvamnfaLCVDYXHRP4146-85-21 10:45:00 Test Item Value Reference Range Interpretation Comments Phosphorus (test code = Phosphorus) 3.2 2.5-4.5 N [facility] HospitalXutqfemITNDSZLVIV4354-87-99 10:45:00 Test Item Value Reference Range Interpretation Comments PTT (test code = PTT) 35.0 s 22.9-35.8 N [facility] HospitalUvvxmucCSMEKYWDSK7621-87-43 10:45:00 Test Item Value Reference Range Interpretation Comments PT (test code = PT) 14.0 s 12.0-14.7 N [facility] HospitalOhthyrlNSXQRUWYMA5074-37-40 10:45:00 Test Item Value Reference Range Interpretation Comments INR (test code = INR) 1.06 0.85-1.17 N [facility] HospitalIptgnboLEWKTVUBT3963-12-91 10:45:00 Test Item Value Reference Range Interpretation Comments TSH (test code = TSH) 0.631 0.360-3.740 N [facility] HospitalIuqlecrBMEMEIQZG5731-03-91 10:45:00 Test Item Value Reference Range Interpretation Comments Phosphorus (test code = Phosphorus) 3.2 2.5-4.5 N [facility] HospitalFpwxqodFGSVXNONJP2448-06-85 10:45:00 Test Item Value Reference Range Interpretation Comments PTT (test code = PTT) 35.0 s 22.9-35.8 N [facility] HospitalYsyfexhMEQMNNUEBT1735-36-69 10:45:00 Test Item Value Reference Range Interpretation Comments PT (test code = PT) 14.0 s 12.0-14.7 N [facility] HospitalUvlkpbrMNPDZLNRLP7323-70-71 10:45:00 Test Item Value Reference Range Interpretation Comments INR (test code = INR) 1.06 0.85-1.17 N [facility] HospitalPhkbflcZSTSZSRKQ4584-02-70 03:05:00 Test Item Value Reference Range Interpretation Comments BNP (test code = BNP) 86 N [facility] HospitalUppdxiiIYNKNLTTL7793-31-78 03:05:00 Test Item Value Reference Range Interpretation Comments Total CK (test code = Total CK) 130 12-191 N [facility] HospitalUbfmekqJNJYDLJHW4369-72-88 03:05:00 Test Item Value Reference Range Interpretation Comments CK MB (test code = CK MB) 0.9 0.5-3.6 N [facility] HospitalSojdbylDWVEYLLZI1951-38-47 03:05:00 Test Item Value Reference Range Interpretation Comments Troponin-I (test code no gt See_Comment N [Auto mated message] The = Troponin-I) system which g enerated this result transmit norris reference range : <=0.40. The reference r lina was not used to interpr et this result as darshana l/abnormal. [facility] HospitalErepqhaREGUNUFFQ2884-98-33 03:05:00 Test Item Value Reference Range Interpretation Comments CK MB Index (test 0.7 See_Comment N [Automate d message] The code = CK MB Index) system w [facility] generated this result transmit norris reference range : <=2.5. The reference range was not used to interpr et this result as darshana l/abnormal. [facility] HospitalYzzljutMXNCBMAYUV8307-90-66 03:05:00 Test Item Value Reference Range Interpretation Comments INR (test code = INR) 0.95 0.85-1.17 N [facility] HospitalZuwooqvAWTVQBGLVX2386-01-27 03:05:00 Test Item Value Reference Range Interpretation Comments PTT (test code = PTT) 34.0 s 22.9-35.8 N [facility] HospitalBcivxgaCTCAYSAHRB5740-72-83 03:05:00 Test Item Value Reference Range Interpretation Comments PT (test code = PT) 12.9 s 12.0-14.7 N [facility] HospitalFieceghKTLUVGDGYN4794-39-10 03:05:00 Test Item Value Reference Range Interpretation Comments RBC Morph (test code = Normal (04/18/2012 N RBC Morph) 21:05:00) [facility] HospitalRwoehasGQQNWDKGHX7113-72-31 03:05:00 Test Item Value Reference Range Interpretation Comments Plt Morph (test code = Normal (04/18/2012 N Plt Morph) 21:05:00) [facility]QmeynpeNNZCIWJIRN4652-58-13 03:05:00 Test Item Value Reference Range Interpretation Comments UA Nitrite (test code Negative (04/18/2012 N = UA Nitrite) 21:05:00) [facility]RnbezzqDLBAIJVUKM1463-32-69 03:05:00 Test Item Value Reference Range Interpretation Comments UA Blood (test code = Negative (04/18/2012 N UA Blood) 21:05:00) [facility] HospitalYfooavvLPFJVWGXWZ0320-76-67 03:05:00 Test Item Value Reference Range Interpretation Comments UA Bili (test code = Negative *NA*(04/18/2012 UA Bili) 21:05:00) [facility] HospitalDcugfhuCMGNQOQINM6190-32-77 03:05:00 Test Item Value Reference Range Interpretation Comments UA Urobilinogen (test code *NA*(04/18/2012 0.1-1.0 = UA Urobilinogen) 21:05:00) [facility] HospitalYboqtzjKEEJPAQZNA1520-16-28 03:05:00 Test Item Value Reference Range Interpretation Comments UA Color (test code = UA Color) Colorless [facility] HospitalUnoosoeBNPUHXAYXY2476-46-91 03:05:00 Test Item Value Reference Range Interpretation Comments UA WBC (test code = 3 See_Comment N [Automa norris message] The UA WBC) system which ge nerated this result transmit norris reference range : <=5. The reference range was not used to interpr et this result as darshana l/abnormal. [facility] HospitalPbxkirlCRRGKARETQ7817-74-46 03:05:00 Test Item Value Reference Range Interpretation Comments UA Sq Epi (test code Occasional /LPF = UA Sq Epi) *NA*(04/18/2012 21:05:00) [facility] HospitalYfgnryqWTDQZUJOKH0840-71-40 03:05:00 Test Item Value Reference Range Interpretation Comments UA Bacteria (test code Occasional /HPF = UA Bacteria) *NA*(04/18/2012 21:05:00) [facility] HospitalPetpebfSFXBTWZXSK9159-18-34 03:05:00 Test Item Value Reference Range Interpretation Comments UA RBC (test code = no gt See_Comment N [Automa norris message] The UA RBC) system which ge nerated this result transmit norris reference range : <=2. The reference range was not used to interpr et this result as darshana l/abnormal. [facility] HospitalPsxggelWDRLPGAXNV6210-26-68 03:05:00 Test Item Value Reference Range Interpretation Comments UA pH (test code = UA pH) 8.0 5.0-8.0 N [facility] HospitalBbjzoogQZEGPRBCXV0823-88-09 03:05:00 Test Item Value Reference Range Interpretation Comments UA Leuk Est (test code Small *ABN*(04/18/2012 A = UA Leuk Est) 21:05:00) [facility]HkniagyFRQACAIUHT0862-05-03 03:05:00 Test Item Value Reference Range Interpretation Comments UA Ketones (test code Negative mg/dL = UA Ketones) *NA*(04/18/2012 21:05:00) [facility]jmtdqxDPNFCUFULD9401-66-28 03:05:00 Test Item Value Reference Range Interpretation Comments UA Glucose (test code Negative mg/dL = UA Glucose) *NA*(04/18/2012 21:05:00) [facility] HospitalIylcqgpSYOQFJCOIQ8606-95-65 03:05:00 Test Item Value Reference Range Interpretation Comments UA Protein (test code Negative mg/dL N = UA Protein) (04/18/2012 21:05:00) [facility] HospitalJnujznbQYMRRUSSAO4205-42-94 03:05:00 Test Item Value Reference Range Interpretation Comments UA Turbidity (test code = Clear (04/18/2012 N UA Turbidity) 21:05:00) [facility] HospitalLjaemfuSFQZAHTZNN7095-41-62 03:05:00 Test Item Value Reference Range Interpretation Comments UA Spec Grav (test code = UA Spec Grav) 1.003 N [facility]zy[facility]lpxfcfyfxsh8574-96-19 03:05:00 Test Item Value Reference Range Interpretation Comments Culture: Urine (test code = Culture: Urine) [facility]IkofpdqCFFAZRASJ9250-17-67 03:05:00 Test Item Value Reference Range Interpretation Comments BNP (test code = BNP) 86 N [facility] HospitalSejkvaxFVOJKSUMJ0350-03-43 03:05:00 Test Item Value Reference Range Interpretation Comments Total CK (test code = Total CK) 130 12-191 N [facility] HospitalBepubwhWOYRFWKCG3165-52-29 03:05:00 Test Item Value Reference Range Interpretation Comments CK MB (test code = CK MB) 0.9 0.5-3.6 N [facility] HospitalLqhletdCACKQIIPK8674-71-52 03:05:00 Test Item Value Reference Range Interpretation Comments Troponin-I (test code no gt See_Comment N [Auto mated message] The = Troponin-I) system which g enerated this result transmit norris reference range : <=0.40. The reference r lina was not used to interpr et this result as darshana l/abnormal. [facility]JyrchgiEZPDSJQQR3156-74-07 03:05:00 Test Item Value Reference Range Interpretation Comments CK MB Index (test 0.7 See_Comment N [Automate d message] The code = CK MB Index) system w [facility] generated this result transmit norris reference range : <=2.5. The reference range was not used to interpr et this result as darshana l/abnormal. [facility]EdoadpnEMCYHLQIGR7268-12-10 03:05:00 Test Item Value Reference Range Interpretation Comments INR (test code = INR) 0.95 0.85-1.17 N [facility] HospitalWxybfyfWXBXHUQZTT7351-05-35 03:05:00 Test Item Value Reference Range Interpretation Comments PTT (test code = PTT) 34.0 s 22.9-35.8 N [facility]YslhrssLSURHDNJWQ2444-75-21 03:05:00 Test Item Value Reference Range Interpretation Comments PT (test code = PT) 12.9 s 12.0-14.7 N [facility] HospitalImampsoXNCYHBDSEU7342-34-63 03:05:00 Test Item Value Reference Range Interpretation Comments RBC Morph (test code = Normal (04/18/2012 N RBC Morph) 21:05:00) [facility] HospitalYezgmtyZFAFUULMUV7365-44-79 03:05:00 Test Item Value Reference Range Interpretation Comments Plt Morph (test code = Normal (04/18/2012 N Plt Morph) 21:05:00) [facility]NrvdlcbOICCJGEOQG4375-67-97 03:05:00 Test Item Value Reference Range Interpretation Comments UA Nitrite (test code Negative (04/18/2012 N = UA Nitrite) 21:05:00) [facility]viewThuytywSVLFXRPOTF9041-99-02 03:05:00 Test Item Value Reference Range Interpretation Comments UA Blood (test code = Negative (04/18/2012 N UA Blood) 21:05:00) [facility]viewWcdlknsGVUKFKQYNS2474-83-09 03:05:00 Test Item Value Reference Range Interpretation Comments UA Bili (test code = Negative *NA*(04/18/2012 UA Bili) 21:05:00) [facility]viewUhnukqnHLVPKEUVLP5686-54-42 03:05:00 Test Item Value Reference Range Interpretation Comments UA Urobilinogen (test code *NA*(04/18/2012 0.1-1.0 = UA Urobilinogen) 21:05:00) [facility] HospitalPbemuhfPJJPOCPKNT9540-77-00 03:05:00 Test Item Value Reference Range Interpretation Comments UA Color (test code = UA Color) Colorless [facility] HospitalXjfxkltGISERJAZZB1568-00-49 03:05:00 Test Item Value Reference Range Interpretation Comments UA WBC (test code = 3 See_Comment N [Automa norris message] The UA WBC) system which ge nerated this result transmit norris reference range : <=5. The reference range was not used to interpr et this result as darshana l/abnormal. [facility] HospitalGfrcfjdFNXPCTJBHQ9127-15-09 03:05:00 Test Item Value Reference Range Interpretation Comments UA Sq Epi (test code Occasional /LPF = UA Sq Epi) *NA*(04/18/2012 21:05:00) [facility] HospitalBchkrhsSBLZRUWAEE2018-59-46 03:05:00 Test Item Value Reference Range Interpretation Comments UA Bacteria (test code Occasional /HPF = UA Bacteria) *NA*(04/18/2012 21:05:00) [facility] HospitalXxxfnhxCQGSESGIVN7115-43-02 03:05:00 Test Item Value Reference Range Interpretation Comments UA RBC (test code = no gt See_Comment N [Automa norris message] The UA RBC) system which ge nerated this result transmit norris reference range : <=2. The reference range was not used to interpr et this result as darshana l/abnormal. [facility] HospitalErgvwiiZYZNKJCJAP7974-78-80 03:05:00 Test Item Value Reference Range Interpretation Comments UA pH (test code = UA pH) 8.0 5.0-8.0 N [facility] HospitalMqcaxtqTDQQPYKSIY7829-86-26 03:05:00 Test Item Value Reference Range Interpretation Comments UA Leuk Est (test code Small *ABN*(04/18/2012 A = UA Leuk Est) 21:05:00) [facility] HospitalZjywidlODJVDMWBIE3770-17-17 03:05:00 Test Item Value Reference Range Interpretation Comments UA Ketones (test code Negative mg/dL = UA Ketones) *NA*(04/18/2012 21:05:00) [facility] HospitalUgxtexwHOWZWMFKRY2422-41-22 03:05:00 Test Item Value Reference Range Interpretation Comments UA Glucose (test code Negative mg/dL = UA Glucose) *NA*(04/18/2012 21:05:00) [facility] HospitalGfzceriXYABSVDCWN4975-83-33 03:05:00 Test Item Value Reference Range Interpretation Comments UA Protein (test code Negative mg/dL N = UA Protein) (04/18/2012 21:05:00) [facility] HospitalHaaiujqYHXCFDNEFI8047-42-77 03:05:00 Test Item Value Reference Range Interpretation Comments UA Turbidity (test code = Clear (04/18/2012 N UA Turbidity) 21:05:00) [facility] HospitalOnsavfqFXCVHYVCYP3262-46-39 03:05:00 Test Item Value Reference Range Interpretation Comments UA Spec Grav (test code = UA Spec Grav) 1.003 N [facility] CenterYllydupUbewgsidutla9847-78-07 03:05:00 Test Item Value Reference Range Interpretation Comments Culture: Urine (test code = Culture: Urine) [facility] HospitalRoadgtgMUJRYVZHC0929-62-55 03:05:00 Test Item Value Reference Range Interpretation Comments BNP (test code = BNP) 86 N [facility] HospitalAgyiyniMOLPFZLQX7195-21-11 03:05:00 Test Item Value Reference Range Interpretation Comments Total CK (test code = Total CK) 130 12-191 N [facility] HospitalShbnciiTSYNPYUPQ5494-57-89 03:05:00 Test Item Value Reference Range Interpretation Comments CK MB (test code = CK MB) 0.9 0.5-3.6 N [facility] HospitalWljbnfbBCNIBKOPX2815-58-74 03:05:00 Test Item Value Reference Range Interpretation Comments Troponin-I (test code no gt See_Comment N [Auto mated message] The = Troponin-I) system which g enerated this result transmit norris reference range : <=0.40. The reference r lina was not used to interpr et this result as darshana l/abnormal. [facility] HospitalNufwytmKCXJKTFDL6094-69-51 03:05:00 Test Item Value Reference Range Interpretation Comments CK MB Index (test 0.7 See_Comment N [Automate d message] The code = CK MB Index) system w [facility] generated this result transmit norris reference range : <=2.5. The reference range was not used to interpr et this result as darshana l/abnormal. [facility] HospitalDybywynYVIAYYTKBY7150-13-81 03:05:00 Test Item Value Reference Range Interpretation Comments INR (test code = INR) 0.95 0.85-1.17 N [facility] HospitalKagotosBIKGJIUZTN6376-82-29 03:05:00 Test Item Value Reference Range Interpretation Comments PTT (test code = PTT) 34.0 s 22.9-35.8 N [facility] HospitalFozvtvpEDARHNYSMX6334-14-61 03:05:00 Test Item Value Reference Range Interpretation Comments PT (test code = PT) 12.9 s 12.0-14.7 N [facility] HospitalCurnqtmSMRQXWLUCD9924-24-50 03:05:00 Test Item Value Reference Range Interpretation Comments RBC Morph (test code = Normal (04/18/2012 N RBC Morph) 21:05:00) [facility] HospitalVpifbluYAPMCUDJWT2223-93-95 03:05:00 Test Item Value Reference Range Interpretation Comments Plt Morph (test code = Normal (04/18/2012 N Plt Morph) 21:05:00) [facility] HospitalUhextdeKRYYFHAAND9859-19-94 03:05:00 Test Item Value Reference Range Interpretation Comments UA Nitrite (test code Negative (04/18/2012 N = UA Nitrite) 21:05:00) [facility] HospitalZhnmhqgMTZEPEWCGY1147-14-72 03:05:00 Test Item Value Reference Range Interpretation Comments UA Blood (test code = Negative (04/18/2012 N UA Blood) 21:05:00) [facility] HospitalNzaalltUOZUVXIHYK5323-25-67 03:05:00 Test Item Value Reference Range Interpretation Comments UA Bili (test code = Negative *NA*(04/18/2012 UA Bili) 21:05:00) [facility] HospitalQnbknqqZINRDZKIGA1474-29-64 03:05:00 Test Item Value Reference Range Interpretation Comments UA Urobilinogen (test code *NA*(04/18/2012 0.1-1.0 = UA Urobilinogen) 21:05:00) [facility] HospitalRoliettLTVWIPOSSF6008-31-23 03:05:00 Test Item Value Reference Range Interpretation Comments UA Color (test code = UA Color) Colorless [facility] HospitalVzycvidSHQACWWOFU2451-31-20 03:05:00 Test Item Value Reference Range Interpretation Comments UA WBC (test code = 3 See_Comment N [Automa norris message] The UA WBC) system which ge nerated this result transmit norris reference range : <=5. The reference range was not used to interpr et this result as darshana l/abnormal. [facility] HospitalRlfkhzyLHRJDTGDZC4095-18-85 03:05:00 Test Item Value Reference Range Interpretation Comments UA Sq Epi (test code Occasional /LPF = UA Sq Epi) *NA*(04/18/2012 21:05:00) [facility] HospitalBbssutiFBPNPXWPUX8473-64-30 03:05:00 Test Item Value Reference Range Interpretation Comments UA Bacteria (test code Occasional /HPF = UA Bacteria) *NA*(04/18/2012 21:05:00) [facility] HospitalEupwcqtZVSVVBQQFA7411-15-04 03:05:00 Test Item Value Reference Range Interpretation Comments UA RBC (test code = no gt See_Comment N [Automa norris message] The UA RBC) system which ge nerated this result transmit norris reference range : <=2. The reference range was not used to interpr et this result as darshana l/abnormal. [facility] HospitalYttyezaDFPBRWOHTH5802-15-99 03:05:00 Test Item Value Reference Range Interpretation Comments UA pH (test code = UA pH) 8.0 5.0-8.0 N [facility] HospitalJmdyucvGCFSFGPLZN0823-60-32 03:05:00 Test Item Value Reference Range Interpretation Comments UA Leuk Est (test code Small *ABN*(04/18/2012 A = UA Leuk Est) 21:05:00) [facility] HospitalWvvunoxDADQNAOPOB0620-22-10 03:05:00 Test Item Value Reference Range Interpretation Comments UA Ketones (test code Negative mg/dL = UA Ketones) *NA*(04/18/2012 21:05:00) [facility] HospitalVggkjjvFPYMLEWVPC8023-00-88 03:05:00 Test Item Value Reference Range Interpretation Comments UA Glucose (test code Negative mg/dL = UA Glucose) *NA*(04/18/2012 21:05:00) [facility] HospitalMasqgalGHVTPEMIOU7970-06-44 03:05:00 Test Item Value Reference Range Interpretation Comments UA Protein (test code Negative mg/dL N = UA Protein) (04/18/2012 21:05:00) [facility] HospitalUvuqpxhISZSFAQFYT5347-12-40 03:05:00 Test Item Value Reference Range Interpretation Comments UA Turbidity (test code = Clear (04/18/2012 N UA Turbidity) 21:05:00) [facility]AcbswznEWHZQIWRSL2689-12-02 03:05:00 Test Item Value Reference Range Interpretation Comments UA Spec Grav (test code = UA Spec Grav) 1.003 N [facility]NsxugftYkbjzckkzrsn2224-46-53 03:05:00 Test Item Value Reference Range Interpretation Comments Culture: Urine (test code = Culture: Urine) [facility] Pa And Lat (2 Views)Chest Pa And Lat (2 Views)Foot Left 3 ViewFoot Left 3 View
[2022-03-25 16:45] LABS: Arterial Blood Carboxyhemoglob 1.1 % (0-1.5); Blood Gas Oxyhemoglobin 42.1 % (94-97); Blood O2 Saturation 43.2 % (92-98.5)
[2022-03-25 16:53] LABS: Hematocrit 35.4 % (36.0-45.0); Lymphocytes % 15.2 % (15.3-44.8); MCV 81.7 fL (80-100); MPV 9.2 fL (7.6-11.3); RBC Red Blood Cell Count 4.33 M/uL (3.86-4.86)
--- NOTE | 2022-03-25 17:30 | RAD REPORT ---
EXAM DESCRIPTION: RAD - Chest Single View - 03/25/2022 5:19 pm CLINICAL HISTORY: ams COMPARISON: Chest Single View dated 03/24/2022; Chest Single View dated 03/12/2022; Chest Pa And Lat (2 Views) dated 04/08/2021; Chest Pa And Lat (2 Views) dated 09/14/2020 FINDINGS: Lines: None. Lungs: No evidence of edema or pneumonia. Pleural: No significant pleural effusions or pneumothorax. Cardiac: Mild cardiomegaly. Mediastinum: Within normal limits. Bones: No acute fractures. Sternotomy. Other: Surgical changes in the left aspect of neck. IMPRESSION: No acute cardiopulmonary disease.
[2022-03-25 17:31] LABS: Urine Blood Negative (Negative); Urine Glucose Negative (Negative); Urine Protein Negative (Negative); Urine pH 5.5 (5.0-7.0)
[2022-03-25 17:40] LABS: Urine Bacteria <20 /HPF (<20); Urine Mucus Slight /HPF (None Seen); Urine RBC <5 /HPF (None Seen)
--- NOTE | 2022-03-25 17:40 | RAD REPORT ---
EXAM DESCRIPTION: CT - Head Brain Wo Cont - 03/25/2022 5:31 pm CLINICAL HISTORY: CONFUSED COMPARISON: Head Brain Wo Cont dated 12/06/2015; HEAD BRAIN W O CONTRAST dated 04/29/2014 TECHNIQUE: All CT scans are performed using dose optimization technique as appropriate and may inclu de automated exposure control or mA/KV adjustment according to patient size. FINDINGS: No intracranial hemorrhage, hydrocephalus or extra-axial fluid collection.No areas of brai n edema or evidence of midline shift. Expanded, partially empty sella, typically a normal variant. Mi ld chronic small vessel ischemic changes. The paranasal sinuses and mastoids are clear. The calvarium is intact. IMPRESSION: No acute intracranial abnormality.
[2022-03-25 17:51] LABS: Albumin 3.3 g/dL (3.4-5.0); Bilirubin Total 0.5 mg/dL (0.2-1.0); Magnesium 1.9 mg/dL (1.6-2.4); Potassium 3.1 mmol/L (3.5-5.1); Protein, Total 7.7 g/dL (6.4-8.2); Thyroid Stimulating Hormone 1.69 uIU/mL (0.358-3.740); Troponin High Sensitivity 55.1 pg/mL (<58.9)
--- NOTE | 2022-03-25 18:17 | EDPHYS ---
Physician Documentation [facility] Name: Eva Haskins Age: 81 yrs Sex: Female : 1940 Arrival Date: 03/25/2022 Time: 16:01 Bed 3 Private MD: ED Physician Tu Puri HPI: 03/25 17:18 This 81 yrs old Female presents to ER via Ambulatory with complaints of rt Hallucinations. 17:18 Patient presents to the ED with reported hallucinations, she was seen in the ED rt yesterday after a fall. After leaving the hospital, the patient developed visual hallucinations seeing bugs on the wall as well as people in the room who were not there. She denies any auditory hallucinations, suicidal ideation. The patient reports urinary frequency. She denies other acute complaints at this time, states that she is no longer hallucinating. Symptoms are moderate in severity, no other aggravating or alleviating factors. The daughter does report that the patient has had poor sleep for the past 2 days.. Historical: - Allergies: 16:05 Iodine; aa5 16:05 Levofloxacin; aa5 - PMHx: 16:05 Diabetes - NIDDM; Hyperlipidemia; Hypertension; Myocardial infarction; TIA; aa5 - Immunization history:: Adult Immunizations unknown. - Social history:: Smoking status: Patient denies any tobacco usage or history of. - Family history:: not pertinent. ROS: 17:18 Constitutional: Negative for fever, chills, and weight loss, Cardiovascular: Negative rt for chest pain, palpitations, and edema, Respiratory: Negative for shortness of breath, cough, wheezing, and pleuritic chest pain, Abdomen/GI: Negative for abdominal pain, nausea, vomiting, diarrhea, and constipation, Skin: Negative for injury, rash, and discoloration, Neuro: Negative for headache, weakness, numbness, tingling, and seizure. 17:18 : Positive for urinary frequency, Negative for burning with urination. 17:18 Psych: Positive for visual hallucinations, Negative for auditory hallucinations. Exam: 17:18 Constitutional: This is a well developed, well nourished patient who is awake, alert, rt and in no acute distress. Head/Face: Normocephalic, atraumatic. Chest/axilla: Normal chest wall appearance and motion. Nontender with no deformity. No lesions are appreciated. Cardiovascular: Regular rate and rhythm with a normal S1 and S2. No gallops, murmurs, or rubs. Normal PMI, no JVD. No pulse deficits. Respiratory: Lungs have equal breath sounds bilaterally, clear to auscultation and percussion. No rales, rhonchi or wheezes noted. No increased work of breathing, no retractions or nasal flaring. Abdomen/GI: Soft, non-tender, with normal bowel sounds. No distension or tympany. No guarding or rebound. No evidence of tenderness throughout. Back: No spinal tenderness. No costovertebral tenderness. Full range of motion. Skin: Warm, dry with normal turgor. Normal color with no rashes, no lesions, and no evidence of cellulitis. MS/ Extremity: Pulses equal, no cyanosis. Neurovascular intact. Full, normal range of motion. Neuro: Awake and alert, GCS 15, oriented to person, place, time, and situation. Cranial nerves II-XII grossly intact. Motor strength 5/5 in all extremities. Sensory grossly intact. Cerebellar exam normal. Normal gait. 17:18 ECG was reviewed by the Attending Physician. 17:18 Psych: Calm, cooperative, reports visual hallucinations. 18:19 Radiologist reports: No acute findings rt Vital Signs: 16:05 BP 146 / 73; Pulse 60; Resp 18 S; Temp 97.9(TE); Pulse Ox 98% on R/A; Weight 58.97 kg aa5 (R); 17:15 BP 123 / 56; Pulse 52; Resp 17; Pulse Ox 96% on R/A; hb 18:30 BP 124 / 58; Pulse 53; Resp 15; Pulse Ox 99% on R/A; hb MDM: 16:16 Patient medically screened. rt 18:18 Differential diagnosis: Metabolic disorder, sundowning, CVA. Data reviewed: vital rt signs, nurses notes, lab test result(s), EKG, radiologic studies. I considered the following discharge prescriptions or medication management in the emergency department Medications were administered in the Emergency Department. See MAR. Independent interpretation of the following test(s) in the Emergency Department CT Scan: My interpretation is No hemorrhage. Test considered but Not performed: MRI: No lateralizing deficits, symptoms not consistent with an acute CVA. Historians other than the Patient: Daughter/Son: Discussed presentation with family. Care significantly affected by the following chronic conditions: Hypertension. Counseling: I had a detailed discussion with the patient and/or guardian regarding: the historical points, exam findings, and any diagnostic results supporting the discharge/admit diagnosis, lab results, radiology results, the need for outpatient follow up, to return to the emergency department if symptoms worsen or persist or if there are any questions or concerns that arise at home. 03/25 16:28 Order name: CBC with Diff; Complete Time: 17:42 rt 03/25 16:28 Order name: CMP; Complete Time: 17:56 rt 03/25 16:28 Order name: Magnesium; Complete Time: 17:56 rt 03/25 16:28 Order name: ABG: vbg; Complete Time: 17:42 rt 03/25 16:28 Order name: TSH; Complete Time: 17:56 rt 03/25 16:28 Order name: Troponin High Sensitivity; Complete Time: 17:56 rt 03/25 16:28 Order name: Chest Single View XRAY; Complete Time: 17:42 rt 03/25 16:28 Order name: CT Head Brain wo Cont; Complete Time: 17:42 rt 03/25 16:28 Order name: Urine Dipstick-Ancillary (obtain specimen); Complete Time: 17:31 rt 03/25 16:28 Order name: Urine Microscopic Only; Complete Time: 17:42 rt 03/25 16:28 Order name: AMMONIA; Complete Time: 17:42 rt 03/25 16:28 Order name: EKG; Complete Time: 16:29 rt 03/25 17:31 Order name: Urine Dipstick-Ancillary; Complete Time: 17:42 EDMS 03/25 16:28 Order name: EKG - Nurse/Tech; Complete Time: 16:56 rt 03/25 16:58 Order name: Labs - recollect needed: recollect chemistry and ammonia/ hemolyzed per mark Whiteside in lab; Complete Time: 17:16 EC:18 Rate is 56 beats/min. Rhythm is regular, Normal Sinus Rhythm with No ectopy, Similar to rt prior EKG. QRS [place] is Normal. SC interval is normal. QRS interval is normal. Clinical impression: NSR w/ Non-specific ST/T Changes and Abnormal EKG without significant change. Administered Medications: 18:30 Drug: Potassium Chloride Liquid 40 mEq Route: PO; hb 18:52 Follow up: Response: Medication administered at discharge. Disposition Summary: 03/25/22 18:17 Discharge Ordered Location: Home rt Problem: new rt Symptoms: are resolved rt Condition: Stable rt Diagnosis - Visual hallucinations rt - Hypokalemia rt Followup: rt - With: Private Physician - When: 2 - 3 days - Reason: Discharge Instructions: - Discharge Summary Sheet rt - Confusion rt - Hypokalemia rt Forms: - Medication Reconciliation Form rt - Thank You Letter rt - Antibiotic Education rt - Prescription Opioid Use rt Signatures: Dispatcher [employer] Abby Live, RN RN aa5 Taty Bhagat RN RN Karin Cannon Ryan, MD MD rt
--- NOTE | 2022-03-25 18:17 | ER ---
Nurse's Notes [facility] [address] Name: Eva Haskins Age: 81 yrs Sex: Female : 1940 Arrival Date: 03/25/2022 Time: 16:01 Bed 3 Private MD: Diagnosis: Visual hallucinations;Hypokalemia Presentation: 03/25 16:05 Chief complaint: Pt's daughter states "she's been hallucinating since yesterday and aa5 it's getting worse today". Reports visual hallucinations. Pt reports she was seen here yesterday for fall and right shoulder pain. Coronavirus screen: At this time, the client does not indicate any symptoms associated with coronavirus-19. Ebola Screen: Patient denies travel to an Ebola-affected area in the 21 days before illness onset. Initial Sepsis Screen: Does the patient meet any 2 criteria? No. Patient's initial sepsis screen is negative. Does the patient have a suspected source of infection? No. Patient's initial sepsis screen is negative. Risk Assessment: Do you want to hurt yourself or someone else? Patient reports no desire to harm self or others. Onset of symptoms was March 2022. 16:05 Acuity: DEVON 3 aa5 16:05 Method Of Arrival: Ambulatory aa5 Historical: - Allergies: 16:05 Iodine; aa5 16:05 Levofloxacin; aa5 - PMHx: 16:05 Diabetes - NIDDM; Hyperlipidemia; Hypertension; Myocardial infarction; TIA; aa5 - Immunization history:: Adult Immunizations unknown. - Social history:: Smoking status: Patient denies any tobacco usage or history of. - Family history:: not pertinent. Screenin:00 [facility] ED Fall Risk Assessment (Adult) Score/Fall Risk Level 3 or more points = High hb Risk Oriented to surroundings, Maintained a safe environment, Educated pt \\T\\ family on fall prevention, incl call for assistance when getting out of bed, Offered frequent toileting (1:1 observation), Remained with patient while ambulating, Utilized family, sitter, or virtual art museum aide as indicated. Abuse screen: Denies threats or abuse. Denies injuries from another. Nutritional screening: No deficits noted. Tuberculosis screening: No symptoms or risk factors identified. Assessment: 17:00 General: Appears in no apparent distress. Behavior is calm, cooperative. Pain: Pain hb currently is 5 out of 10 on a pain scale. Neuro: Level of Consciousness is awake, alert, obeys commands, Oriented to person, place, situation. Cardiovascular: Patient's skin is warm and dry. Respiratory: Respiratory effort is even, unlabored, Respiratory pattern is regular, symmetrical. GI: No signs and/or symptoms were reported involving the gastrointestinal system. : No signs and/or symptoms were reported regarding the genitourinary system. EENT: No signs and/or symptoms were reported regarding the EENT system. Derm: Skin is pink, warm \\T\\ dry. Musculoskeletal: No signs and/or symptoms reported regarding the musculoskeletal system. 18:10 Reassessment: Patient appears in no apparent distress at this time. No changes from hb previously documented assessment. Patient and/or family updated on plan of care and expected duration. Pain level reassessed. Vital Signs: 16:05 BP 146 / 73; Pulse 60; Resp 18 S; Temp 97.9(TE); Pulse Ox 98% on R/A; Weight 58.97 kg aa5 (R); 17:15 BP 123 / 56; Pulse 52; Resp 17; Pulse Ox 96% on R/A; hb 18:30 BP 124 / 58; Pulse 53; Resp 15; Pulse Ox 99% on R/A; hb ED Course: 16:01 Patient arrived in ED. rg4 16:04 Arm band placed on. aa5 16:05 Triage completed. aa5 16:08 Tu Puri MD is Attending Physician. rt 16:45 Inserted saline lock: 22 gauge in left forearm, using aseptic technique. Blood hb collected. 17:21 Chest Single View XRAY In Process Unspecified. EDMS 17:33 CT Head Brain wo Cont In Process Unspecified. EDMS 17:33 Patient has correct armband on for positive identification. hb 18:53 No provider procedures requiring assistance completed. IV discontinued, intact, hb bleeding controlled, No redness/swelling at site. Administered Medications: 18:30 Drug: Potassium Chloride Liquid 40 mEq Route: PO; hb 18:52 Follow up: Response: Medication administered at discharge. hb Medication: 17:00 VIS not applicable for this client. hb Outcome: 18:17 Discharge ordered by . rt 18:53 Discharged to home via wheelchair, with family. hb 18:53 Condition: stable 18:53 Discharge instructions given to patient, family, Instructed on discharge instructions, follow up and referral plans. medication usage, Demonstrated understanding of instructions, follow-up care, medications. 18:53 Patient left the ED. hb Signatures: Dispatcher [employer] EDAbby Leahy RN RN aa5 Taty Bhagat RN RN Madonna Puga rg4 Tu Puri MD MD rt Corrections: (The following items were deleted from the chart) 16:07 16:05 Chief complaint: Pt's daughter states "she's been hallucinating since yesterday aa5 and it's getting worse today". Reports visual hallucinations. aa5
[2022-03-25] MEDS ORDERED: POTASSIUM CL SA 10 MEQ TAB PO ONE (18:34)
[2022-03-25 18:58] VITALS: TEMP 97.9
[2022-03-25 19:00] VITALS: BP 124/58; O2SAT 99
== END 2022-03-25 18:53 | disposition home or self-care (01) ==
LOC: ER 15:55
DX: R44.1 Visual hallucinations (principal); E87.6 Hypokalemia; I10 Essential (primary) hypertension; E11.9 Type 2 diabetes mellitus without complications; Z88.1 Allergy status to other antibiotic agents; Z91.048 Other nonmedicinal substance allergy status
CPT/HCPCS: 36415; 70450; 71045; 80053; 81003; 81015; 82140; 82805; 83735; 84443; 84484; 85025; 93005; 99284

== ENCOUNTER 2022-06-16 17:41 | Emergency (ER) | payer OTHER ==
--- OUTSIDE RECORDS SUMMARY | 2022-06-16 18:08 | XMS REPORT | Continuity of Care Document ---
:1940 Author Organization [facility] t Address [address] [facility] [address] [place] [address] Care Team Providers Name Role Phone Shante_[place] Tri[place] Primary Care Physician Unavailable Patricia Vidales Attending Clinician Unavailable Mari Abreu Attending Clinician Unavailable [place] Tri[place] Attending Clinician Unavailable Giuseppe Jose Attending Clinician Luis Burch Attending Clinician Luis Burch Admitting Clinician Payers Payer Name Policy Type Policy Number Effective Date Expiration Date S tommy [place] [id number] [id number] 2021 Common [employer] 00:00:00 [facility] Problems Condition Condition Condition Status Onset Resolution Last Treating Co mments Source Name Details Category Date Date Treatment Clinician Date 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 00:00: [facility] coronary coronary artery artery Essential Essential Disease Active Met hodi hypertensi hypertensi 2-16 st on on 00:00: Hospita 00 l Depression Depression Disease Active M ethodi 2-16 st 00:00: Hospita 00 l NSTEMI NSTEMI Disease Active Methodi (non-ST (non-ST 2-16 st elevated elevated 00:00: Hospit a myocardial myocardial 00 l infarction infarction ) ) 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 00:00: [facility] involving [facility] coronary coronary artery artery UNK UNK Diagnosis Active 2016-06-20 Mem oria Active 06-06 21:57:00 l 06/06/2016 00:00: Mckinley cotton 00 [facility] [place] 433.10/353 433.10/35 Diagnosis Active 2012-05-17 Memoria 01 301 Active 05-02 14:33:00 l 05/02/2012 00:00: Mckinley cotton 00 [facility] [place] 433.10, 433.10, Diagnosis Active 2012-04-18 Memoria CAROTID CAROTID 04-18 16:00:00 l ARTERY ARTERY 00:00: [place] STENOSIS STENOSIS 00 Active 04/18/2012 [facility] CAROTID CAROTID Diagnosis Active 2012-05-10 Memoria STENOSIS STENOSIS 04-18 21:43:00 l Active 00:00: Christopher 04/18/2012 00 [facility] OTHER OTHER Diagnosis Active 2012-04-19 Mem oria Active 04-18 00:54:00 l 04/18/2012 00:00: Mckinley cotton 00 [facility] [place] [id number] Age-relate Problem Com mon d Spirit osteoporos - [facility] is [facility] pathologic Medica l al Center fracture Peripheral PAD Problem Commo n vascular (periphera Spir it disease l artery - CHI disease) [facility] Aortic Nonrheumat Problem Commo n valve ic aortic Spirit disorder (valve) - CHI stenosis [facility] Acute on Acute on Problem Commo n chronic chronic Spirit combined combined - CHI systolic systolic St and and [facility] diastolic diastolic Medi laura heart congestive Center failure heart failure [id number] Primary Problem Comm on osteoarthr Spirit itis of - CHI right hip [facility] [id number] Encounter Problem Com mon for Spirit suspected - CHI COVID-19 [facility] Tinea Athlete's Problem Common pedis foot on Spirit left - CHI [facility] Mixed Depression Problem Commo n anxiety with Spirit and anxiety - CHI depressive [facility] Seasonal Allergic Problem Commo n allergic rhinitis, Spiri t rhinitis seasonal - CHI [facility] Pain Pain Problem Common Spirit - CHI [facility] Hammer toe Hammer toe Problem C ommon Spirit - CHI [facility] Mixed Hyperlipid Problem Commo n hyperlipid emia, Spirit emia mixed - [facility] Anemia due Anemia, Problem Comm on to blood blood loss Spir it loss - CHI [facility] 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 - CH I [facility] DM - DM - Problem Resolve 2012-04-28 Wilfrid mendy Diabetes Diabetes d 08:59:09 l mellitus mellitus Mckinley n Resolved Problem 04/28/2012 [facility] Ulcer Ulcer Problem Common [facility] - [facility] Hyperchole Hyperchol Problem Resolve 2012-04-28 Memoria sterolemia esterolemi d 08:59:09 l a Resolved Mckinley n Problem 04/28/2012 [facility] Cataract Cataract Problem Commo n [facility] Hypertensi Hypertens Problem Resolve 2012-04-28 Memoria on ion d 08:59:09 l Resolved Christopher Problem 04/28/2012 [facility] Diabetes Diabetes Problem Commo n mellitus DMII Spirit without without - CHI complicati complicati [facility] on [facility] Glaucoma Glaucoma Problem Commo n [facility] Degenerati Degenerati Problem C ommon on of on of Spirit lumbosacra lumbosacra - CHI l l St interverte interverte Anuja kes bral disc bral disc 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) [facility] [id number] Controlled Problem Co mmon type 2 [facility] diabetes - CHI mellitus [facility] diabetic Medical peripheral Center angiopathy without gangrene, without long-term current use of insulin 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 - CHI disease of [facility] coronary Medical artery Center without angina pectoris Claudicati Claudicati Problem C ommon on on [facility] CAROTID CAROTID Diagnosis Active 2012-05-10 Memoria SINUS SINUS 21:43:00 l SYNDROME SYNDROME Mckinley cotton Active [facility] EMBOLISM EMBOLISM Diagnosis Active 2016-06-20 Memoria AND AND 21:57:00 l THROMBOSIS THROMBOSIS He rmann OF OF ARTERIES ARTERIES OF T OF T Active [facility] Vitamin Vitamin Problem Common B12 B12 Spirit deficiency deficiency - [facility] ATHSCL ATHSCL Diagnosis Active 2016-06-20 Pr moria WH[place] EAR[place] WHITE EARTH 21:57:00 l ARTERIES ARTERIES Mckinley n OF EXTRM W OF EXTRM W INTRMT INTRMT Active [place] Vitamin D Vitamin D Problem Com mon deficiency deficiency Sp sherly - [facility] [id number] Hypertensi Problem Co mmon ve urgency [facility] [id number] Type 2 Problem Common diabetes Spirit mellitus - CHI with other diabetic [facility] kidney Medical complicati Center on Seasonal Seasonal Problem Commo n allergy allergies [facility] [id number] Onychomyco Problem Co mmon sis Spirit - [facility] [id number] Dermatitis Problem Co mmon of left Spirit foot - CHI [facility] Age-relate Osteoporos Problem C ommon d is without Spirit osteoporos current - CHI is pathologic [facility] fracture, Medical unspecifie Center d osteoporos is type [id number] Stress and Problem Co mmon adjustment Spirit reaction - [facility] [id number] Skin ulcer Problem Com mon of left Spirit foot, - CHI limited to [facility] skin Medical Center [id number] Atheroscle Problem Co mmon rosis of Spirit [facility] - [facility] artery of [facility] extremity Medical with Center intermitte nt claudicati on, unspecifie d laterality [id number] Aortic Problem Common valve Spirit stenosis, - CHI etiology St cardiac [facility] valve Medical disease Center unspecifie d [id number] Hair loss Problem Com mon Spirit - [facility] [id number] Calcaneal Problem Co mmon [id number] spur, left [facility] Pain in Pain of Problem Common limb left foot [facility] [id number] Acute Problem Common systolic Spirit congestive - CHI heart [facility] [id number] Recurrent Problem Com mon falls [facility] Decreased Decreased Problem Com mon hearing hearing [facility] [id number] Decline in Problem Co mmon verbal Spirit memory - [facility] 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 - CHI with other diabetic [facility] kidney Medical complicati Center on, without long-term current use of insulin Hypertensi Hypertensi Problem C ommon ve heart ve heart Spirit disease disease - CHI with with congestive [facility] heart heart Medical failure failure Center [id number] Need for Problem Comm on assistance Spirit due to - CHI unsteady [facility] Gastroesop Gastroeso Problem Active 2022-05-14 Memoria hageal phageal 12:53:49 l reflux reflux [place] disease disease (disorder) (disorder) Active Problem 05/14/2022 [facility] Amnesia Amnesia Problem Active 2022-05-14 Me moria (finding) (finding) 12:53:49 l Active [place] Problem 05/14/2022 [facility] Limping Limping Problem Active 2022-05-14 Me moria (finding) (finding) 12:53:49 l Active [place] Problem 05/14/2022 [facility] Cough Cough Problem Active 2022-05-14 Wilfrid mendy (finding) (finding) 12:53:49 l Active Christopher Problem 05/14/2022 [facility] Diabetes Diabetes Problem Active 2022-05-14 Memoria mellitus mellitus 12:53:49 l (disorder) (disorder) He rmann Active Problem 05/14/2022 [facility] Difficulty Difficult Problem Active 2022-05-14 Memoria breathing y 12:53:49 l (finding) breathing Herm shannan (finding) Active Problem 05/14/2022 [facility] [place] Problem Active 2022-05-14 Memor ia (finding) (finding) 12:53:49 l Active Christopher Problem 05/14/2022 [facility] Hyperlipid Hyperlipi Problem Active 2022-05-14 Memoria emia demia 12:53:49 l (disorder) (disorder) He ann Active Problem 05/14/2022 [facility] Hypertensi Hypertens Problem Active 2022-05-14 Memoria ve josy 12:53:49 l disorder, disorder, Herm shannan systemic systemic arterial arterial (disorder) (disorder) Active Problem 05/14/2022 [facility] Impaired Impaired Problem Active 2022-05-14 Memoria cognition cognition 12:53:49 l (finding) (finding) Herm shannan Active Problem 05/14/2022 [facility] Wilfrid Ariasl [facility] Tremor Tremor Problem Active 2022-05-14 Wilfrid mendy (finding) (finding) 12:53:49 l Active [place] Problem 05/14/2022 [facility] Pure Pure Problem Resolve 2021-04-29 2021-04-29 Memoria hyperchole hyperchole d 03-04 21:54:55 21:54:55 l sterolemia sterolemia 00:00: He maribell (disorder) (disorder) 00 Resolved 03/04/2013 Problem 04/29/2021 [facility] Essential Problem Resolve 2021-04-29 2021-04-29 Memoria hypertensi Essential d 05-21 21:54:55 21:54:55 l on hypertensi 00:00: Mckinley n (disorder) on 00 (disorder) Resolved 05/21/2012 Problem 04/29/2021 [facility] Transient Transient Problem Resolve 2021-04-29 2021-04-29 Memoria ischemic ischemic d 02-13 21:54:55 21:54:55 l attack attack 00:00: Christopher (disorder) (disorder) 00 Resolved 02/13/2010 Problem 04/29/2021 [facility] Allergies, Adverse Reactions, Alerts Allergy Allergy [...] Christopher Bactrim Bactrim Active Memoria l Christopher [id number] Drug Active Unknown Common allergy [facility] [id number] Drug Active Unknown Common allergy [facility] Social History Social Habit Start Date Stop Date Quantity Comments Source History of Tobacco Common Spirit - Use [facility] Gender identity [facility] Sexual orientation [facility] History of Social 2017-12-28 2017-12-[address] function 00:00:00 00:00:00 Hospital Tobacco use and 2017-03-31 2017-03-31 Smokeless [facility] 00:00:00 00:00:00 tobacco non-user Hospital Social History 2016-06-08 2016-06-08 [facility] 12:53:59 12:53:59 Sex Assigned At [birth year] [facility] Smoking Status Start Date Stop Date Source Tobacco smoking status [facility] Medications Ordered Filled Start Stop Current Ordering Indication Dosage Frequency Signature Comments Components Source Medication Medication Date Date Medication? Clinician (SIG) Name Name Johnathan 4 Yes 4 mg = 1 Mem oria mg oral 3-29 tab, PO, l tablet 14:48: BID, # 60 Mckinley n 00 tab, 3 Refill(s), Pharmacy: [facility], 147.32, cm, 05/11/22 9:35:00 CDT, Height, 61.591, kg, 05/11/22 9:35:00 CDT, Weight Ativan 0.5 Yes See Memoria mg oral 2-21 Instructio l tablet 20:43: ns, 1 tab Mckinley n 00 PO Q8H, # 5 tab, 0 Refill(s), Pharmacy: [facility], 147.32, cm, 03/30/22 10:49:00 [employer], Height, 59.716, kg, 03/30/22 10:49:00 [employer], Weight furosemide Yes TAKE 1 Memor ia 40 mg oral 2-15 TABLET BY l tablet 16:55: MOUTH [place] 00 TWICE DAILY pentoxifyll 0 Yes 400 mg = 1 Memoria ine 400 mg 2-15 tab, PO, l oral 16:52: TID, # 90 Christopher tablet, 00 tab, 0 extended Refill(s) release clopidogrel 0 Yes 75 mg = 1 M emoria 75 mg oral 2-15 tab, PO, l tablet 16:51: Daily, # [place] 00 30 tab, 0 Refill(s) Keflex 500 Keflex 500 2021-02- No 1{capsu QID Keflex 500 MG MG 02-13 le} MG 00:00: 00:00 00 :00 Ketoconazol Ketoconazol 2021-02- No 1{appli BID Ketoconazo e 2 % e 2 % 02-13 cation_ le 2 % 00:00: 00:00 to_affe 00 :00 cted_ar ea} Donepezil 2021-0 Yes 5 mg = 1 Wilfrid mendy hydrochlori 1-14 tab, PO, l de 5 MG 17:52: Bedtime, # Herm shannan Oral Tablet 00 30 tab, 4 [Aricept] Refill(s), Pharmacy: [facility], 147.32, cm, 02/26/21 11:29:00 [employer], Height, 64.545, kg, 02/26/21 11:29:00 [employer], Weight Donepezil 2021-0 Yes 5 mg = 1 Wilfrid mendy hydrochlori 1-14 tab, PO, l de 5 MG 17:52: Bedtime, # Herm shannan Oral Tablet 00 30 tab, 4 [Aricept] Refill(s), Pharmacy: [facility], 147.32, cm, 02/26/21 11:29:00 [employer], Height, 64.545, kg, 02/26/21 11:29:00 [employer], Weight Donepezil 2021-0 Yes 5 mg = 1 Wilfrid mendy hydrochlori 1-14 tab, PO, l de 5 MG 17:52: Bedtime, # Herm shannan Oral Tablet 00 30 tab, 4 [Aricept] Refill(s), Pharmacy: [facility], 147.32, cm, 02/26/21 11:29:00 [employer], Height, 64.545, kg, 02/26/21 11:29:00 [employer], Weight Donepezil 2021-0 Yes 5 mg = 1 Wilfrid mendy hydrochlori 1-14 tab, PO, l de 5 MG 17:52: Bedtime, # Herm shannan Oral Tablet 00 30 tab, 4 [Aricept] Refill(s), Pharmacy: [facility], 147.32, cm, 02/26/21 11:29:00 [employer], Height, 64.545, kg, 02/26/21 11:29:00 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 if still anxious, # 5 tab, 0 Refill(s), Pharmacy: [facility], 149.86, cm, 01/22/21 11:15:00 [employer], Height, 64.091, kg, 01/22/21 11:15:00 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 if still anxious, # 5 tab, 0 Refill(s), Pharmacy: [facility], 149.86, cm, 01/22/21 11:15:00 [employer], Height, 64.091, kg, 01/22/21 11:15:00 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 if still anxious, # 5 tab, 0 Refill(s), Pharmacy: [facility], 149.86, cm, 01/22/21 11:15:00 [employer], Height, 64.091, kg, 01/22/21 11:15:00 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 if still anxious, # 5 tab, 0 Refill(s), Pharmacy: [facility], 149.86, cm, 01/22/21 11:15:00 [employer], Height, 64.091, kg, 01/22/21 11:15:00 [employer], Weight Furosemide 2020-02 Yes 20 mg = 1 Me moria 20 MG Oral 2-10 tab, PO, l Tablet 17:26: Daily, 0 Christopher 00 Refill(s) Tylenol 2020-02 Yes PO, 0 Memoria 2-10 Refill(s) l 17:26: Furosemide 2020-02 Yes 20 mg = 1 Me moria 20 MG Oral 2-10 tab, PO, l Tablet 17:26: Daily, 0 [place] 00 Refill(s) Tylenol 2020-02 Yes PO, 0 Memoria 2-10 Refill(s) l 17:26: Furosemide 2020-02 Yes 20 mg = 1 Me moria 20 MG Oral 2-10 tab, PO, l Tablet 17:26: Daily, 0 [place] 00 Refill(s) Tylenol 2020-02 Yes PO, 0 Memoria 2-10 Refill(s) l 17:26: Furosemide 2020-02 Yes 20 mg = 1 Me moria 20 MG Oral 2-10 tab, PO, l Tablet 17:26: Daily, 0 [place] 00 Refill(s) Tylenol 2020-02 Yes PO, 0 Memoria 2-10 Refill(s) l 17:26: furosemide 2020-02 Yes 20 mg = 1 Me moria 20 mg oral 2-10 tab, PO, l tablet 17:26: Daily, 0 Christopher 00 Refill(s) Tylenol 2020-02 Yes PO, 0 Memoria 2-10 Refill(s) l 17:26: cetirizine 2020-02 Yes 10 mg = 1 [...] tab, PO, l tablet 17:23: Daily, 0 [place] 00 Refill(s) losartan 2020-02 Yes 100 mg = 1 Mem oria 100 mg oral 2-10 tab, PO, l tablet 17:23: Daily, 0 Christopher 00 Refill(s) losartan 2020-02 Yes 100 mg = 1 Mem oria 100 mg oral 2-10 tab, PO, l tablet 17:23: Daily, 0 [place] 00 Refill(s) losartan 2020-02 Yes 100 mg = 1 Mem oria 100 mg oral 2-10 tab, PO, l tablet 17:23: Daily, 0 Christopher 00 Refill(s) Glipizide 5 2020-02 Yes 5 mg = 1 Me moria MG Oral 2-10 tab, PO, l Tablet 17:22: Daily, 0 Refill(s) Glipizide 5 2020-02 Yes 5 mg = 1 Me moria MG Oral 2-10 tab, PO, l Tablet 17:22: Daily, 0 Refill(s) Glipizide 5 2020-02 Yes 5 mg = 1 Me moria MG Oral 2-10 tab, PO, l Tablet 17:22: Daily, 0 Refill(s) Glipizide 5 2020-02 Yes 5 mg = 1 Me moria MG Oral 2-10 tab, PO, l Tablet 17:22: Daily, 0 Refill(s) glipiZIDE 5 2020-02 Yes 5 mg = 1 Me moria mg oral 2-10 tab, PO, l tablet 17:22: Daily, 0 Refill(s) Neomycin-Po Neomycin-Po No 4{drops BID Neomycin-P lymyxin-HC lymyxin-HC 4-02 _into_a olymyxin-H 3.5-37327-4 3.5-06553-4 00:00: ffected C 00 _ear} 3.5-47577- 1 Neomycin-Po Neomycin-Po No 4{drops BID Neomycin-P lymyxin-HC lymyxin-HC 4-02 _into_a olymyxin-H 3.5-10636-1 3.5-24663-9 00:00: ffected C 00 _ear} 3.5-08292- 1 Neomycin-Po Neomycin-Po 2021-0 No 4{drops BID Neomycin-P lymyxin-HC lymyxin-HC 4-02 _into_a olymyxin-H 3.5-47964-4 3.5-26802-3 00:00: ffected C 00 _ear} 3.5-19992- 1 Neomycin-Po Neomycin-Po 2021-0 No 4{drops BID Neomycin-P lymyxin-HC lymyxin-HC 4-02 _into_a olymyxin-H 3.5-77677-2 3.5-46300-2 00:00: ffected C 00 _ear} 3.5-61083- 1 Neomycin-Po Neomycin-Po 2021-0 No 4{drops BID Neomycin-P lymyxin-HC lymyxin-HC 4-02 _into_a olymyxin-H 3.5-14033-4 3.5-94220-4 00:00: ffected C 00 _ear} 3.5-64191- 1 Neomycin-Po Neomycin-Po 2021-0 No 4{drops BID Neomycin-P lymyxin-HC lymyxin-HC 4-02 _into_a olymyxin-H 3.5-13647-8 3.5-79766-9 00:00: ffected C 00 _ear} 3.5-87623- 1 Neomycin-Po Neomycin-Po 2021-0 No 4{drops BID Neomycin-P lymyxin-HC lymyxin-HC 4-02 _into_a olymyxin-H 3.5-53053-3 3.5-34668-8 00:00: ffected C 00 _ear} 3.5-65326- 1 Neomycin-Po Neomycin-Po 2021-0 No 4{drops BID Neomycin-P lymyxin-HC lymyxin-HC 4-02 _into_a olymyxin-H 3.5-30083-8 3.5-36447-9 00:00: ffected C 00 _ear} 3.5-49534- 1 Neomycin-Po Neomycin-Po 2021-0 No 4{drops BID Neomycin-P lymyxin-HC lymyxin-HC 4-02 _into_a olymyxin-H 3.5-51064-2 3.5-63855-4 00:00: ffected C 00 _ear} 3.5-71014- 1 Neomycin-Po Neomycin-Po 2021-0 No 4{drops BID Neomycin-P lymyxin-HC lymyxin-HC 4-02 _into_a olymyxin-H 3.5-58132-7 3.5-50718-0 00:00: ffected C 00 _ear} 3.5-72337- 1 Neomycin-Po Neomycin-Po 202-0 No 4{drops BID Neomycin-P lymyxin-HC lymyxin-HC 4-02 _into_a olymyxin-H 3.5-69520-4 3.5-16798-2 00:00: ffected C 00 _ear} 3.5-78553- 1 Neomycin-Po Neomycin-Po 2020-0 No 4{drops BID Neomycin-P lymyxin-HC lymyxin-HC 4-02 _into_a olymyxin-H 3.5-51372-1 3.5-28193-1 00:00: ffected C 00 _ear} 3.5-92099- 1 Neomycin-Po Neomycin-Po 2020-0 No 4{drops BID Neomycin-P lymyxin-HC lymyxin-HC 4-02 _into_a olymyxin-H 3.5-21903-5 3.5-42732-5 00:00: ffected C 00 _ear} 3.5-47559- 1 Neomycin-Po Neomycin-Po 2020-0 No 4{drops BID Neomycin-P lymyxin-HC lymyxin-HC 4-02 _into_a olymyxin-H 3.5-56303-4 3.5-61285-4 00:00: ffected C 00 _ear} 3.5-37981- 1 Neomycin-Po Neomycin-Po 2020-0 No 4{drops BID Neomycin-P lymyxin-HC lymyxin-HC 4-02 _into_a olymyxin-H 3.5-22095-5 3.5-09053-6 00:00: ffected C 00 _ear} 3.5-27866- 1 Neomycin-Po Neomycin-Po 2021-0 No 4{drops BID Neomycin-P lymyxin-HC lymyxin-HC 4-02 _into_a olymyxin-H 3.5-37429-4 3.5-94341-6 00:00: ffected C 00 _ear} 3.5-75661- 1 Neomycin-Po Neomycin-Po 2020-0 No 4{drops BID Neomycin-P lymyxin-HC lymyxin-HC 4-02 _into_a olymyxin-H 3.5-38132-4 3.5-57235-5 00:00: ffected C 00 _ear} 3.5-- 1 Neomycin-Po Neomycin-Po No 4{drops BID Neomycin-P lymyxin-HC lymyxin-HC 4-02 _into_a olymyxin-H 3.5-42529-3 3.5-88104-2 00:00: ffected C 00 _ear} 3.5-- 1 Neomycin-Po Neomycin-Po No 4{drops BID Neomycin-P lymyxin-HC lymyxin-HC 4-02 _into_a olymyxin-H 3.5-60810-3 3.5-81714-7 00:00: ffected C 00 _ear} 3.5-89819- 1 Neomycin-Po Neomycin-Po No 4{drops BID Neomycin-P lymyxin-HC lymyxin-HC 4-02 _into_a olymyxin-H 3.5-46081-0 3.510062-9 00:00: ffected C 00 _ear} 3.5-- 1 Albuterol Albuterol No 2{puffs Albuterol Sulfate HFA Sulfate HFA 1-21 } Sulfate 108 (90 108 (90 00:00: HFA 108 Base) Base) 00 (90 Base) MCG/ACT MCG/ACT MCG/ACT Albuterol Albuterol No 2{puffs Albuterol Sulfate HFA Sulfate HFA 1-21 } Sulfate 108 ( 108 (90 00:00: HFA 108 Base) Base) 00 (90 Base) MCG/ACT MCG/ACT MCG/ACT Albuterol Albuterol No 2{puffs Albuterol Sulfate HFA Sulfate HFA 1-21 } Sulfate 108 (90 108 ( 00:00: HFA 108 Base) Base) 00 (90 Base) MCG/ACT MCG/ACT MCG/ACT Albuterol Albuterol No 2{puffs Albuterol Sulfate HFA Sulfate HFA 1-21 } Sulfate 108 (90 108 ( 00:00: HFA 108 Base) Base) 00 (90 [...] 6-22 Spiri t 00:00: - CHI 00 [facility] Flonase Flonase Yes Na Tripp 1 spray in Common 8-29 each Spirit 00:00: nostril - CHI [facility] Flonase 50 Flonase 50 No 1{spray QD Flonase 50 MCG/ACT MCG/ACT 8-29 _in_eac MCG/ACT 00:00: h_nostr il} Flonase 50 Flonase 50 No 1{spray QD Flonase 50 MCG/ACT MCG/ACT 8-29 _in_eac MCG/ACT 00:00: h_nostr il} Flonase 50 Flonase 50 No 1{spray QD Flonase 50 MCG/ACT MCG/ACT 8-29 _in_eac MCG/ACT 00:00: h_nostr il} Flonase 50 [...] h_nostr 00 il} Flonase 50 Flonase 50 2018-0 No 1{spray QD Flonase 50 MCG/ACT MCG/ACT 10-11 _in_eac MCG/ACT 00:00: h_nostr 00 il} metoprolol 2018-0 Yes 50mg Q.5D Take 50 mg M ethodi tartrate 2-[address] (LOPRESSOR) 17:42: (two) Hospi ta 50 mg 42 times a l tablet day. clopidogrel 2018-0 Yes 75mg QD Take 75 mg Methodi (PLAVIX) 75 2-[address] mg tablet 17:42: daily. Hospit a 42 l pentoxifyll 2018-0 Yes 400mg [id number] Take 400 Methodi ine 2-[id number] (TRENTal) 17:42: 3D mouth [...] Hospita enteric 42 l coated tablet citalopram 0 Yes 10mg QD Take 10 mg M ethodi (CeleXA) 10 2-[address] MG tablet 11:42: daily. Hospit a 42 l losartan-hy 0 Yes 2{tbl} QD Take 2 Me thodi drochloroth 2-[address] iazide 11:42: mouth Hospita (HYZAAR) 42 daily. l 50-12.5 mg per tablet potassium 2017-0 Yes 10meq Q.5D Take 10 Meth alberto [...] a 42 l pentoxifyll 2018-0 Yes 400mg Q.[id number] Take 400 Methodi ine 2-[id number] (TRENTal) 11:42: 3D mouth [...] Hospi ta ophthalmic 42 nightly. l solution aspirin 2017-0 Yes 81mg QD Take 81 mg Meth alberto (ECOTRIN) 2-[address] 81 MG 11:42: daily. Hospita enteric 42 l coated tablet citalopram 2017-0 Yes 10mg QD Take 10 mg [...] a 42 l pentoxifyll 2018-0 Yes 400mg [id number] Take 400 [facility] 2-[id number] (TRENTal) 11:42: 3D mouth [...] MG 11:42: daily. [facility] tablet 42 l glipiZIDE 2018-0 Yes 10mg QD Take 10 [...] a 42 l pentoxifyll 2018-0 Yes 400mg Q.[id number] Take 400 [facility] 2-[id number] (TRENTal) 11:42: 3D mouth [...] a 42 l pentoxifyll 2018-0 Yes 400mg Q.[id number] Take 400 [facility] 2-[id number] (TRENTal) 11:42: 3D mouth [...] (two) l solution times a day. latanoprost 0 Yes 1[drp] QD Administer [facility] (XALATAN) 2-[address] 0.005 % 11:42: both eyes Hos[facility] ta ophthalmic 42 nightly. l solution glipiZIDE Yes 10mg QD Take 10 mg Me thodi (GLUCOTROL) 2-[address] 10 MG 11:42: daily. [facility] tablet 42 l benzonatate Yes 100mg Q.[id number] Take 1 [facility] (TESSALON) 2-[id number] 100 MG 00:00: 3D (100 mg [facility] capsule 00 total) by l mouth 3 (three) times a day as needed for cough for up to 60 doses. benzonatate 0 Yes 100mg Q.[id number] Take 1 [facility] (TESSALON) 2-[id number] 100 MG 00:00: 3D (100 mg [facility] capsule 00 total) by l mouth 3 (three) times a day as needed for cough for up to 60 doses. benzonatate 0 Yes 100mg Q.[id number] Take 1 [facility] (TESSALON) 2-[id number] 100 MG 00:00: 3D (100 mg [facility] capsule 00 total) by l mouth 3 (three) times a day as needed for cough for up to 60 doses. benzonatate 0 Yes 100mg Q.[id number] Take 1 [facility] (TESSALON) 2-[id number] 100 MG 00:00: 3D (100 mg [facility] capsule 00 total) by l mouth 3 (three) times a day as needed for cough for up to 60 doses. benzonatate 0 Yes 100mg Q.[id number] Take 1 [facility] (TESSALON) 2-[id number] 100 MG 00:00: 3D (100 [...] Memori a 5-01 (sodium l 13:55: ferric [place] 00 gluconate complex (elemental iron) 62.5 mg/5 ml INJ) "Limited stability. Use immediatel y after admixture" (Same as: Ferrlecit) MEDICATION WASTE Product Size: 62.5 mg Product Wasted: ___ mg Ferrlecit No Notes: Memori a 5-01 (sodium l 13:55: ferric [place] 00 gluconate complex (elemental iron) 62.5 mg/5 [...] 4-30 mL, Route: l 03:37: IVP, Drug [place] 00 form: INJ, PRN, Dosing Weight 66.818, kg, PRN Bradycardi a, Start date: 06/11/16 22:37:00 CDT, Duration: 30 day, Stop date: 07/11/16 22:36:00 CDT Nitroglycer No Notes: Wilfrid mendy in 0.4 MG 4-30 (Same l Sublingual 03:37: as:Nitroqu H ermann Tablet 00 ick, Nitrostat) "Do Not Crush" Sublingual tablet Atropine No 0.5 mg, 5 Wilfrid mendy 4-30 mL, Route: l 03:37: IVP, Drug [place] 00 form: INJ, PRN, Dosing Weight 66.818, [...] Wasted: ___ mg Plavix No Notes: Memoria 4- (Same As: l 14:00: Plavix) [place] Plavix No Notes: Memoria 4- (Same As: l 14:00: Plavix) [place] Plavix No Notes: Memoria 4-29 (Same As: l 14:00: Plavix) [place] Plavix No Notes: Memoria 4- (Same As: l 14:00: Plavix) [place] 00 Hydrochloro No 1 tab, Wilfrid mendy thiazide 25 06-10 Route: PO, l MG / 14:00: Drug Form: [place] Losartan 00 TAB, Potassium Dosing 100 MG Oral Weight Tablet 66.818, kg, Daily, Start date: 06/10/16 9:00:00 CDT, Duration: 30 day, Stop date: 07/09/16 9:00:00 CDT Lasix 2016-0 No Notes: Memoria 4-28 (Same as: l 14:00: Lasix) Citalopram 2016-0 No 10 mg, 1 Mem oria 4-28 tab, l 14:00: Route: PO, [place] 00 Drug form: TAB, Daily, Dosing Weight [...] PO, l MG / 14:00: Drug Form: TAB, Potassium Dosing 100 MG Oral Weight Tablet 66.818, kg, Daily, Start date: 06/10/16 9:00:00 CDT, Duration: 30 day, Stop date: 07/09/16 9:00:00 CDT Lasix 0 No Notes: Memoria 4-28 (Same as: l 14:00: Lasix) Citalopram 2016-0 No 10 mg, 1 Mem oria 4-28 tab, l 14:00: Route: PO, [place] 00 Drug form: TAB, Daily, Dosing Weight 66.818, kg, Start date: 06/10/16 9:00:00 CDT, Duration: 30 day, Stop date: 07/09/16 9:00:00 CDT hydrochloro 2016-0 No Notes: Wilfrid mendy thiazide 25 4-28 (Same as: l mg oral 14:00: Hydrodiuri Herm shannan tablet 00 l) With food. Cozaar No Notes: Memoria 4-28 (Same as: l 14:00: Cozaar) Hydrochloro No 1 tab, Wilfrid mendy thiazide 25 4-28 Route: PO, l MG / 14:00: Drug Form: [place] Losartan 00 TAB, Potassium Dosing 100 MG Oral Weight Tablet 66.818, kg, Daily, Start date: 06/10/16 9:00:00 CDT, Duration: 30 day, Stop date: 07/09/16 9:00:00 CDT Lasix No Notes: Memoria 4-28 (Same as: l 14:00: Lasix) Citalopram No 10 mg, 1 Mem oria 4-28 tab, l 14:00: Route: PO, [place] 00 Drug form: TAB, Daily, Dosing Weight [...] PO, l MG / 14:00: Drug Form: [place] Losartan 00 TAB, Potassium Dosing 100 MG Oral Weight Tablet 66.818, kg, Daily, Start date: 06/10/16 9:00:00 CDT, Duration: 30 day, Stop date: 07/09/16 9:00:00 CDT Lasix No Notes: Memoria 4-28 (Same as: l 14:00: Lasix) Citalopram No 10 mg, 1 Mem oria 4-28 tab, l 14:00: Route: PO, [place] Drug form: TAB, Daily, Dosing Weight 66.818, kg, Start date: 06/10/16 9:00:00 CDT, Duration: 30 day, Stop date: 07/09/16 9:00:00 CDT hydrochloro No Notes: Wilfrid mendy thiazide 25 4-28 (Same as: l mg oral 14:00: Hydrodiuri Herm shannan tablet 00 l) With food. Cozaar 2017-0 No Notes: Memoria 4-28 (Same as: l 14:00: Cozaar) [place] 00 sodium 2017-0 No 250 mL, Memoria chloride [...] 6:29:00 CDT, Replace Every: 24 hr Alprazolam 2016-0 No Notes: Memor ia 0.5 MG Oral 4-28 With food l Tablet 04:18: or milk [place] [Xanax] 00 (Same as: Xanax) Alprazolam No Notes: Memor ia 0.5 MG Oral 4-28 With food l Tablet 04:18: or milk [place] [Xanax] 00 (Same as: Xanax) Alprazolam No Notes: Memor ia 0.5 MG Oral 4-28 With food l Tablet 04:18: or milk [place] [Xanax] 00 (Same as: Xanax) Alprazolam No Notes: Memor ia 0.5 MG Oral 4-28 With food l Tablet 04:18: or milk [place] [Xanax] 00 (Same as: Xanax) Symbicort No Notes: Memori a 160/4.5 06-10 (Same as: l inhalation 02:00: Symbicort) H ermann aerosol 00 WASTE: with Aerosol - adapter Return to Pharmacy [facility] No Notes: Wilfrid mendy n 06-10 (Same As: l 02:00: Lipitor) [place] 00 insulin, No Notes: Memoria isophane 06-10 Roll in l 02:00: palms of [place] 00 hands gently; Do not shake vigorously [...] with Aerosol - adapter Return to Pharmacy [facility] No Notes: Wilfrid mendy n -28 (Same As: l 02:00: Lipitor) [place] 00 insulin, No Notes: Memoria isophane 4-28 Roll in l 02:00: palms of [place] [...] with Aerosol - adapter Return to Pharmacy [facility] No Notes: Wilfrid mendy n 06-10 (Same As: l 02:00: Lipitor) [place] 00 insulin, No Notes: Memoria isophane 06-10 Roll in l 02:00: palms of [place] 00 hands gently; Do not shake vigorously [...] with Aerosol - adapter Return to Pharmacy [facility] No Notes: Wilfrid mendy n 06-10 (Same As: l 02:00: Lipitor) Christopher 00 [...] 50% Syringe 06-09 Route: l 14:55: IVP, [place] 00 Dosing Weight 66.818, kg, PRN, PRN Blood Glucose Results, Start date: 06/09/16 9:55:00 CDT, Duration: 30 day, Stop date: 07/09/16 9:54:00 CDT Glucagon 2017-0 No 1 mg, Memoria 4-27 Route: IM, l 14:55: PRN, [place] 00 Dosing Weight 66.818, kg, PRN Blood [...] Memoria 4-27 Route: IM, l 14:55: PRN, [place] 00 Dosing Weight 66.818, kg, PRN Blood Glucose Results, Start date: 06/09/16 9:55:00 CDT, Duration: 30 day, Stop date: 07/09/16 9:54:00 CDT Dextrose 2017-0 No 25 mL, Memoria 50% Syringe 06-09 Route: l 14:55: IVP, [place] 00 Dosing [...] 50% Syringe - Route: l 14:55: IVP, [place] 00 Dosing Weight 66.818, kg, PRN, PRN [...] Lopressor) Streptococc No Notes: Wilfrid mendy us -27 Lightly l pneumoniae 14:00: roll vial He rmann serotype 1 00 (DO NOT capsular SHAKE) antigen before diphtheria administra [id number] tion. protein (Same as: conjugate Prevnar vaccine / 13) Streptococc us pneumoniae serotype 14 capsular antigen diphtheria [id number] protein conjugate vaccine / Streptococc us pneumoniae serotype 18C capsular antigen d metoprolol No Notes: Memor ia tartrate 06-09 (Same as: l 14:00: Lopressor) Streptococc No Notes: Wilfrid mendy us - Lightly l pneumoniae 14:00: roll vial He rmann serotype 1 00 (DO NOT capsular SHAKE) antigen before diphtheria administra [id number] tion. protein (Same as: conjugate Prevnar vaccine / 13) Streptococc us pneumoniae serotype 14 capsular antigen diphtheria [id number] protein conjugate vaccine / Streptococc us pneumoniae serotype 18C capsular antigen d metoprolol No Notes: Memor ia tartrate 06-09 (Same as: l 14:00: Lopressor) Streptococc No Notes: Wilfrid mendy us -27 Lightly l pneumoniae 14:00: roll vial He rmann serotype 1 00 (DO NOT capsular SHAKE) antigen before diphtheria administra [id number] tion. protein (Same as: conjugate Prevnar vaccine / 13) Streptococc us pneumoniae serotype 14 capsular antigen diphtheria [id number] protein conjugate vaccine / Streptococc us pneumoniae serotype 18C capsular antigen d metoprolol No Notes: Memor ia tartrate 06-09 (Same as: l 14:00: Lopressor) Streptococc No Notes: Wilfrid mendy us 4-27 Lightly l pneumoniae 14:00: roll vial He rmann serotype 1 00 (DO NOT capsular SHAKE) antigen before diphtheria administra [id number] tion. protein (Same as: conjugate Prevnar vaccine / 13) Streptococc us pneumoniae serotype 14 capsular antigen diphtheria [id number] protein conjugate vaccine / Streptococc us pneumoniae serotype 18C capsular antigen d Lovenox No Notes: Memoria 4- (Same as: l 11:00: Lovenox) [place] Lovenox No Notes: Memoria 4- (Same as: l 11:00: Lovenox) [place] Lovenox No Notes: Memoria 4- (Same as: l 11:00: Lovenox) [place] Lovenox No Notes: Memoria 4- (Same as: l 11:00: Lovenox) [place] Insulin, No Notes: Memoria Aspart, 4-27 Roll in l Human 02:44: palms of [place] 00 hands gently; Do not shake vigorously [...] 21:43:00 CDT Glucagon No 1 mg, Memoria 427 Route: IM, l 02:44: Drug form: [place] 00 PDR/INJ, PRN, Dosing Weight 66.818, kg, PRN Blood Glucose Results, Start date: 06/08/16 21:44:00 CDT, Duration: 30 day, Stop date: 07/08/16 21:43:00 CDT Insulin, No Notes: Memoria Aspart, 4-27 Roll in l Human 02:44: palms of [place] 00 hands gently; Do not shake vigorously [...] CDT Insulin, 2016-0 No Notes: Memoria Aspart, - Roll in l Human 02:44: palms of [place] 00 hands gently; Do not shake vigorously [...] CDT Glucagon 2017-0 No 1 mg, Memoria 4- Route: IM, l 02:44: Drug form: Christopher [...] - Route: IM, l 02:44: Drug form: [place] 00 PDR/INJ, PRN, Dosing Weight 66.818, kg, PRN Blood Glucose Results, Start date: 06/08/16 21:44:00 CDT, Duration: 30 day, Stop date: 07/08/16 21:43:00 CDT Labetalol No Notes: Memori a 4-26 (Same as: l 19:46: Normodyne, [place] 00 Trandate) Push over 2 minutes Give bolus over 2-3 minutes. Labetalol No Notes: Memori a 4-26 (Same as: l 19:46: Normodyne, [place] 00 Trandate) Push over 2 minutes Give bolus over 2-3 minutes. Labetalol No Notes: Memori a 4-26 (Same as: l 19:46: Normodyne, [place] 00 Trandate) Push over 2 minutes Give bolus over 2-3 minutes. Labetalol No Notes: Memori a 4-26 (Same as: l 19:46: Normodyne, [place] 00 Trandate) Push over 2 minutes Give bolus over 2-3 minutes. Hydralazine No Notes: Wilfrid mendy 4-26 (Same as: l 19:45: Apresoline [place] ) Push over 5 minutes Hydralazine 2016-0 No Notes: Wilfrid mendy 4-26 (Same as: l 19:45: Apresoline [place] ) Push over 5 minutes Hydralazine 2016-0 No Notes: Wilfrid mendy 4-26 (Same as: l 19:45: Apresoline [place] ) Push over 5 minutes Hydralazine 0 No Notes: Wilfrid mendy 4-26 (Same as: l 19:45: Apresoline [place] ) Push over 5 minutes Hydralazine 2016-0 No Notes: Wilfrid mendy 4-26 (Same as: l 18:51: Apresoline [place] ) Push over 5 minutes Hydralazine No Notes: Wilfrid mendy 4-26 (Same as: l 18:51: Apresoline [place] ) Push over 5 minutes Hydralazine No Notes: Wilfrid mendy 4-26 (Same as: l 18:51: Apresoline [place] ) Push over 5 minutes Hydralazine 0 No Notes: Wilfrid mendy 4-26 (Same as: l 18:51: Apresoline [place] ) Push over 5 minutes glycopyrrol No Route: IV, Memoria ate (ANES) 06-08 Drug form: l 16:45: INJ, ONCE, [place] 00 Stop date: 06/08/16 11:45:00 CDT neostigmine 0 No Route: IV, Memoria (ANES) 06-08 Drug form: l 16:45: INJ, ONCE, Christopher Stop date: 06/08/16 11:45:00 CDT glycopyrrol 2016-0 No Route: IV, Memoria ate (ANES) 06-08 Drug form: l 16:45: INJ, ONCE, [place] Stop date: 06/08/16 11:45:00 CDT neostigmine 2016-0 No Route: IV, Memoria (ANES) 06-08 Drug form: l 16:45: INJ, ONCE, [place] 00 Stop date: 06/08/16 11:45:00 CDT glycopyrrol 0 No Route: IV, Memoria ate (ANES) 06-08 Drug form: l 16:45: INJ, ONCE, Stop date: 06/08/16 11:45:00 CDT neostigmine No Route: IV, Memoria (ANES) 06-08 Drug form: l 16:45: INJ, ONCE, Stop date: 06/08/16 11:45:00 CDT glycopyrrol No Route: IV, Memoria ate (ANES) [...] day, Stop date: 07/08/16 11:32:00 CDT Morphine 0 No Notes: Memoria 4-26 (Same l 16:33: as:MORPhin [place] 00 e Sulfate) acetaminoph No Notes: Do M emoria en-codeine 4-26 not exceed l #3 16:33: 4gm/day of [place] 00 acetaminop hen. (Same as: Tylenol with [...] not exceed l #3 16:33: 4gm/day of [place] 00 acetaminop hen. (Same as: Tylenol with [...] not exceed l #3 16:33: 4gm/day of [place] 00 acetaminop hen. (Same as: Tylenol with [...] Notes: Memoria 06-08 (Same l 16:33: as:MORPhin [place] 00 e Sulfate) acetaminoph No Notes: Do M emoria en-codeine 06-08 not exceed l #3 16:33: 4gm/day of [place] 00 acetaminop hen. (Same as: Tylenol with [...] 06-08 Drug form: l 16:04: INJ, ONCE, [place] 00 Stop date: 06/08/16 11:04:00 CDT norepinephr No Route: IV, Memoria ine (ANES) 06-08 Drug form: l 16:04: INJ, ONCE, Stop date: 06/08/16 11:04:00 CDT norepinephr No Route: IV, Memoria ine (ANES) 06-08 Drug form: l 16:04: INJ, ONCE, Stop date: 06/08/16 11:04:00 CDT lidocaine 0 No Route: IV, Me moria (ANES) 06-08 Drug form: l 15:55: INJ, ONCE, Stop date: 06/08/16 10:55:00 CDT rocuronium 2016-0 No Route: IV, M emoria (ANES) 06-08 Drug form: l 15:55: INJ, ONCE, Stop date: 06/08/16 10:55:00 CDT propofol 2016-0 No Route: IV, Mem oria (ANES) 06-08 Drug form: l 15:55: INJ, ONCE, Stop date: 06/08/16 10:55:00 CDT heparin 2017-0 No Route: IV, Wilfrid mendy (ANES) 06-08 Drug form: l 15:55: INJ, ONCE, Stop date: 06/08/16 10:55:00 CDT lidocaine 2016-0 No Route: IV, Me [...] ONCE, Stop date: 06/08/16 10:55:00 CDT lidocaine 2016-0 No Route: IV, moria (ANES) 06-08 Drug form: l 15:55: INJ, ONCE, Stop date: 06/08/16 10:55:00 CDT rocuronium 2017-0 No Route: IV, Cricket emoria (ANES) 06-08 Drug form: l 15:55: INJ, ONCE, Stop date: 06/08/16 10:55:00 CDT propofol 2016-0 No Route: IV, Mem oria (ANES) 06-08 Drug form: l 15:55: INJ, ONCE, Stop date: 06/08/16 10:55:00 CDT heparin 2017-0 No Route: IV, Wilfrid mendy (ANES) 06-08 Drug form: l 15:55: INJ, ONCE, Stop date: 06/08/16 10:55:00 CDT lidocaine 2017-0 No Route: IV, moria (ANES) 06-08 Drug form: l 15:55: INJ, ONCE, Stop date: 06/08/16 10:55:00 CDT rocuronium 2016-0 No Route: IV, Cricket emoria (ANES) 06-08 Drug form: l 15:55: INJ, ONCE, Stop date: 06/08/16 10:55:00 CDT propofol 2017-0 No Route: IV, Mem oria (ANES) 06-08 Drug form: l 15:55: INJ, ONCE, Stop date: 06/08/16 10:55:00 CDT heparin 2017-0 No Route: IV, Wilfrid mendy (ANES) 06-08 Drug form: l 15:55: INJ, ONCE, Stop date: 06/08/16 10:55:00 CDT fentaNYL 2017-0 No Route: IV, Mem oria (ANES) 06-08 Drug form: l 15:54: INJ, ONCE, Stop date: 06/08/16 10:54:00 CDT fentaNYL 2017-0 No Route: IV, Mem oria (ANES) 06-08 Drug form: l 15:54: INJ, ONCE, Stop date: 06/08/16 10:54:00 CDT fentaNYL No Route: IV, Mem oria (ANES) 06-08 Drug form: l 15:54: INJ, ONCE, Stop date: 06/08/16 10:54:00 CDT fentaNYL No Route: IV, Mem oria (ANES) 4- Drug form: l 15:54: INJ, ONCE, Stop date: 06/08/16 10:54:00 CDT acetaminoph No Route: IV, Memoria en (ANES) 06-08 Drug form: l (ANES) 15:45: INJ, Start date: 06/08/16 10:45:00 CDT, Stop date: 06/08/16 11:45:00 CDT acetaminoph No Route: IV, Memoria en (ANES) 06-08 Drug form: l (ANES) 15:45: INJ, Start date: 06/08/16 10:45:00 CDT, Stop date: 06/08/16 11:45:00 CDT acetaminoph No Route: IV, Memoria en (ANES) 06-08 Drug form: l (ANES) 15:45: INJ, Start date: 06/08/16 10:45:00 CDT, Stop date: 06/08/16 11:45:00 CDT acetaminoph No Route: IV, Memoria en (ANES) 06-08 Drug form: l (ANES) 15:45: INJ, Start date: 06/08/16 10:45:00 CDT, Stop date: 06/08/16 11:45:00 CDT famotidine No Route: IV, M emoria (ANES) 06-08 Drug form: l 15:39: INJ, ONCE, Stop date: 06/08/16 10:39:00 CDT methylPREDN No Route: IV, Memoria ISolone 06-08 Drug form: l (ANES) 15:39: INJ, ONCE, Stop date: 06/08/16 10:39:00 CDT diphenhydrA 2017-0 No Route: IV, Memoria MINE (ANES) 4-26 Drug form: l 15:39: INJ, ONCE, Stop date: 06/08/16 10:39:00 CDT famotidine 2017-0 No Route: IV, M emoria (ANES) 4- Drug form: l 15:39: INJ, ONCE, Stop date: 06/08/16 10:39:00 CDT methylPREDN 2017-0 No Route: IV, Memoria ISolone 4- Drug form: l (ANES) 15:39: INJ, ONCE, Stop date: 06/08/16 10:39:00 CDT diphenhydrA 2017-0 No Route: IV, Memoria MINE (ANES) 4- Drug form: l 15:39: INJ, ONCE, Stop date: 06/08/16 10:39:00 CDT famotidine 2017-0 No Route: IV, M emoria (ANES) 4-26 Drug form: l 15:39: INJ, ONCE, Stop date: 06/08/16 10:39:00 CDT methylPREDN 2017-0 No Route: IV, Memoria ISolone 4- Drug form: l (ANES) 15:39: INJ, ONCE, Stop date: 06/08/16 10:39:00 CDT diphenhydrA 2017-0 No Route: IV, Memoria MINE (ANES) 4-26 Drug form: l 15:39: INJ, ONCE, Stop date: 06/08/16 10:39:00 CDT famotidine 2017-0 No Route: IV, M emoria (ANES) 4- Drug form: l 15:39: INJ, ONCE, Stop date: 06/08/16 10:39:00 CDT methylPREDN 2017-0 No Route: IV, Memoria ISolone 4-26 Drug form: l (ANES) 15:39: INJ, ONCE, Jackelyn Stop date: 06/08/16 10:39:00 CDT diphenhydrA 2017-0 No Route: IV, Memoria MINE (ANES) 4-26 Drug form: l 15:39: INJ, [...] CDT, Stop date: 06/08/16 11:01:00 CDT vancomycin 2016-0 No Route: IV, M emoria (ANES) 4-26 Drug form: l (ANES) 15:01: INJ, Start Jackelyn nn 00 date: 06/08/16 10:01:00 CDT, Stop date: 06/08/16 11:01:00 CDT sodium 2017-0 No Route: IV, Memor ia chloride 4-26 Total l 0.9% 1000 14:57: Volume: Jackelyn nn ml INJ 00 1,000, (ANES) Start date: 06/08/16 9:57:00 CDT, Stop date: 06/08/16 10:57:00 CDT sodium 2016-0 No Route: IV, Memor ia chloride 4-26 Total l 0.9% 1000 14:57: Volume: Jackelyn nn ml INJ 00 1,000, (ANES) Start date: 06/08/16 9:57:00 CDT, Stop date: 06/08/16 10:57:00 CDT sodium 2017-0 No Route: IV, Memor ia chloride 4-26 Total l 0.9% 1000 14:57: Volume: Jackelyn nn ml INJ 00 1,000, (ANES) Start date: 06/08/16 9:57:00 CDT, Stop date: 06/08/16 10:57:00 CDT sodium 2017-0 No Route: IV, Memor ia chloride 4-26 Total l 0.9% 1000 14:57: Volume: Jackelyn nn ml INJ 00 1,000, (ANES) Start date: 06/08/16 9:57:00 CDT, Stop date: 06/08/16 10:57:00 CDT ceFAZolin 2016-0 No Route: IV, Me moria (ANES) 4-26 Drug form: l (ANES) 14:51: INJ, Start Jackelyn nn date: 06/08/16 9:51:00 CDT, Stop date: 06/08/16 10:51:00 CDT ceFAZolin 2017-0 No Route: IV, Me moria (ANES) 4-26 [...] INJ (ANES) 06-08 Total l 14:30: Volume: [place] 00 1,000, Start date: 06/08/16 9:30:00 CDT, Stop date: 06/08/16 10:30:00 CDT LR 1000 mL No Route: IV, M emoria INJ (ANES) 06-08 Total l 14:30: Volume: [place] 00 1,000, Start date: 06/08/16 9:30:00 CDT, Stop date: 06/08/16 10:30:00 CDT LR 1000 mL No Route: IV, M emoria INJ (ANES) 06-08 Total l 14:30: Volume: [place] 00 1,000, Start date: 06/08/16 9:30:00 CDT, Stop date: 06/08/16 10:30:00 CDT Insulin No 6 unit, Memoria regular 06-08 Route: IV, l 14:10: ONCE, [place] 00 Dosing Weight 66.818, kg, Start date: 06/08/16 9:10:00 CDT, Stop date: 06/08/16 9:10:00 CDT Insulin 2017-0 No 6 unit, Memoria regular 4-26 Route: IV, l 14:10: ONCE, [place] Dosing Weight 66.818, kg, Start date: 06/08/16 9:10:00 CDT, Stop date: 06/08/16 9:10:00 CDT Insulin 2016-0 No 6 unit, Memoria regular 26 Route: IV, l 14:10: ONCE, Christopher Dosing Weight 66.818, kg, Start date: 06/08/16 9:10:00 CDT, Stop date: 06/08/16 9:10:00 CDT Insulin 2016-0 No 6 unit, Memoria regular 26 Route: IV, l 14:10: ONCE, Christopher Dosing Weight 66.818, kg, Start date: 06/08/16 9:10:00 CDT, Stop date: 06/08/16 9:10:00 CDT Albuterol No Notes: Memori a 0.833 MG/ML -26 (Same as: l : Dayami) [place] Ipratropium 00 [place] 0.167 MG/ML Inhalant Solution Calcium No 1,000 mL, Memor ia Chloride - Rate: 25 l 0.0014 14:07: ml/hr, [place] MEQ/ML / 00 Infuse Potassium over: 40 Chloride hr, Route: 0.004 IV, Dosing MEQ/ML / Weight Sodium 66.818 kg, Chloride Total 0.103 Volume: MEQ/ML / 1,000, Sodium Start Lactate date: 0.028 06/08/16 MEQ/ML 9:07:00 Injectable CDT, Solution Duration: 1 day, Stop date: 06/09/16 9:06:00 CDT Albuterol No Notes: Memori a 0.833 MG/ML 4-26 (Same as: l : Christianonegeeta) Christopher Ipratropium 00 [place] 0.167 MG/ML Inhalant Solution Calcium No 1,000 mL, Memor ia Chloride 4-26 Rate: 25 l 0.0014 14:07: ml/hr, Christopher MEQ/ML / 00 Infuse Potassium over: 40 Chloride hr, Route: 0.004 IV, Dosing MEQ/ML / Weight Sodium 66.818 kg, Chloride Total 0.103 Volume: MEQ/ML / 1,000, Sodium Start Lactate date: 0.028 06/08/16 MEQ/ML 9:07:00 Injectable CDT, Solution Duration: 1 day, Stop date: 06/09/16 9:06:00 CDT Albuterol No Notes: Memori a 0.833 MG/ML -26 (Same as: l 14:: Duonegeeta) [place] Ipratropium 00 [place] 0.167 MG/ML Inhalant Solution Calcium No 1,000 mL, Memor ia Chloride 4- Rate: 25 l 0.0014 14:07: ml/hr, [place] MEQ/ML / 00 Infuse Potassium over: 40 Chloride hr, Route: 0.004 IV, Dosing MEQ/ML / Weight Sodium 66.818 kg, Chloride Total 0.103 Volume: MEQ/ML / 1,000, Sodium Start Lactate date: 0.028 06/08/16 MEQ/ML 9:07:00 Injectable CDT, Solution Duration: 1 day, Stop date: 06/09/16 9:06:00 CDT Albuterol No Notes: Memori a 0.833 MG/ML -26 (Same as: l :: Christianonegeeta) Christopher Ipratropium 00 [place] 0.167 MG/ML Inhalant Solution Calcium No 1,000 mL, Memor ia Chloride -26 Rate: 25 l 0.0014 14:07: ml/hr, Christopher MEQ/ML / 00 Infuse Potassium over: 40 Chloride hr, Route: 0.004 IV, Dosing MEQ/ML / Weight Sodium 66.818 kg, Chloride Total 0.103 Volume: MEQ/ML / 1,000, Sodium Start Lactate date: 0.028 06/08/16 MEQ/ML 9:07:00 Injectable CDT, Solution Duration: 1 day, Stop date: 06/09/16 9:06:00 CDT Vancomycin No 2001 mg: Me moria 4-26 infuse l 12:00: over 2.5 [place] 00 hours MEDICATION WASTE Product Size: 1000 mg Product Wasted: ___ mg Ancef No Notes: Memoria 4-26 Same as: l 12:00: Ancef Vancomycin 2016-0 No 2001 mg: Me moria 4-26 infuse l 12:00: over 2.5 [place] 00 hours MEDICATION WASTE Product Size: 1000 mg Product Wasted: ___ mg Ancef 2016-0 No Notes: Memoria 06-08 Same as: l 12:00: Ancef Vancomycin 2017-0 No 2000 mg: Me moria 4-26 infuse l 12:00: over 2.5 [place] 00 hours MEDICATION WASTE Product Size: 1000 mg Product Wasted: ___ mg Ancef 2016-0 No Notes: Memoria 06-08 Same as: l 12:00: Ancef Vancomycin 2016-0 No 2000 mg: Me moria 4-26 infuse l 12:00: over 2.5 [place] 00 hours MEDICATION WASTE Product Size: 1000 mg Product Wasted: ___ mg Ancef 2016-0 No Notes: Memoria 06-08 Same as: l 12:00: Anc Morphine 2016-0 No 2 mg, Memoria 06-03 Route: l [...] day, Stop date: 07/03/16 12:28:00 CDT Morphine 2016-0 No 2 mg, Memoria 06-03 Route: l 17:29: IVP, Q3H, Dosing Weight 68.636, kg, PRN Pain Score 1-3, Start date: 06/03/16 12:29:00 CDT, Duration: 30 day, Stop date: 07/03/16 12:28:00 CDT acetaminoph 2017-0 No 2 tab, Wilfrid mendy en-codeine - Route: PO, l #3 17:29: Drug Form: [place] 00 TAB, Dosing Weight 68.636, kg, Q4H, PRN Pain Score 4-6, Start date: 06/03/16 12:29:00 CDT, Duration: 30 day, Stop date: 07/03/16 12:28:00 CDT Morphine 2017-0 No 2 mg, Memoria 4- Route: l 17:29: IVP, Q3H, Dosing Weight 68.636, kg, PRN Pain Score 1-3, Start date: 06/03/16 12:29:00 CDT, Duration: 30 day, Stop date: 07/03/16 12:28:00 CDT acetaminoph 2017-0 No 2 tab, Wilfrid mendy en-codeine - Route: PO, l #3 17:29: Drug Form: [place] 00 TAB, Dosing Weight 68.636, kg, Q4H, PRN Pain Score 4-6, Start date: 06/03/16 12:29:00 CDT, Duration: 30 day, Stop date: 07/03/16 12:28:00 CDT Morphine 2017-0 No 2 mg, Memoria - Route: l 17:29: IVP, Q3H, Dosing Weight 68.636, kg, PRN Pain Score 1-3, Start date: 06/03/16 12:29:00 CDT, Duration: 30 day, Stop date: 07/03/16 12:28:00 CDT acetaminoph 2017-0 No 2 tab, Wilfrid mendy en-codeine - Route: PO, l #3 17:29: Drug Form: [place] 00 TAB, Dosing Weight 68.636, kg, Q4H, PRN Pain Score 4-6, Start date: 06/03/16 12:29:00 CDT, Duration: 30 day, Stop date: 07/03/16 12:28:00 CDT diphenhydrA 2016-0 No Route: IV, Memoria MINE (ANES) 06-03 Drug form: l 17:24: INJ, ONCE, Stop date: 06/03/16 12:24:00 CDT methylPREDN 2017-0 No Route: IV, Memoria ISolone - Drug form: l (ANES) 17:24: INJ, ONCE, Jackelyn nn Stop date: 06/03/16 12:24:00 CDT ondansetron 0 No Route: IV, Memoria (ANES) 4 Drug form: l 17:24: INJ, ONCE, [place] 00 Stop date: 06/03/16 12:24:00 CDT fentaNYL No Route: IV, Mem oria (ANES) 4- Drug form: l 17:24: INJ, ONCE, Christopher 00 Stop date: 06/03/16 12:24:00 CDT midazolam No Route: IV, Me moria (ANES) 4- Drug form: l 17:24: SOLN, Christopher , Stop date: 06/03/16 12:24:00 CDT famotidine No Route: IV, M emoria (ANES) 06-03 Drug form: l 17:24: INJ, ONCE, [place] 00 Stop date: 06/03/16 12:24:00 CDT diphenhydrA No Route: IV, Memoria MINE (ANES) 06-03 Drug form: l 17:24: INJ, ONCE, Christopher 00 Stop date: 06/03/16 12:24:00 CDT methylPREDN No Route: IV, Memoria ISolone - Drug form: l (ANES) 17:24: INJ, ONCE, Jackelyn Stop date: 06/03/16 12:24:00 CDT ondansetron 0 No Route: IV, Memoria (ANES) 4- Drug form: l 17:24: INJ, ONCE, [place] 00 Stop date: 06/03/16 12:24:00 CDT fentaNYL 0 No Route: IV, Mem oria (ANES) 4- Drug form: l 17:24: INJ, ONCE, Christopher 00 Stop date: 06/03/16 12:24:00 CDT midazolam 0 No Route: IV, Me moria (ANES) 4- Drug form: l 17:24: SOLN, Christopher ONCE, Stop date: 06/03/16 12:24:00 CDT famotidine 2017-0 No Route: IV, M emoria (ANES) 4- Drug form: l 17:24: INJ, ONCE, [place] 00 Stop date: 06/03/16 12:24:00 CDT diphenhydrA 2017-0 No Route: IV, Memoria MINE (ANES) 4- Drug form: l 17:24: INJ, ONCE, Christopher 00 Stop date: 06/03/16 12:24:00 CDT methylPREDN 2017-0 No Route: IV, Memoria ISolone 4- Drug form: l (ANES) 17:24: INJ, ONCE, Jackelyn nn Stop date: 06/03/16 12:24:00 CDT ondansetron 2017-0 No Route: IV, Memoria (ANES) 4- Drug form: l 17:24: INJ, ONCE, Stop date: 06/03/16 12:24:00 CDT fentaNYL 2017-0 No Route: IV, Mem oria (ANES) 06-03 Drug form: l 17:24: INJ, ONCE, Christopher 00 Stop date: 06/03/16 12:24:00 CDT midazolam 2017-0 No Route: IV, Me moria (ANES) 4- Drug form: l 17:24: SOLN, ONCE, Stop date: 06/03/16 12:24:00 CDT famotidine 2017-0 No Route: IV, M emoria (ANES) 4- Drug form: l 17:24: INJ, ONCE, Christopher 00 Stop date: 06/03/16 12:24:00 CDT diphenhydrA 2017-0 No Route: IV, Memoria MINE (ANES) 4- Drug form: l 17:24: INJ, ONCE, [place] 00 Stop date: 06/03/16 12:24:00 CDT methylPREDN 2017-0 No Route: IV, Memoria ISolone - Drug form: l (ANES) 17:24: INJ, ONCE, Jackelyn nn Stop date: 06/03/16 12:24:00 CDT ondansetron 2017-0 No Route: IV, Memoria (ANES) 4- Drug form: l 17:24: INJ, ONCE, [place] Stop date: 06/03/16 12:24:00 CDT fentaNYL 2017 No Route: IV, Mem oria (ANES) 06-03 Drug form: l 17:24: INJ, ONCE, Christopher Stop date: 06/03/16 12:24:00 CDT midazolam No Route: IV, Me moria (ANES) 4 Drug form: l 17:24: SOLN, [place] ONCE, Stop date: 06/03/16 12:24:00 CDT famotidine No Route: IV, M emoria (ANES) 06-03 Drug form: l 17:24: INJ, ONCE, Christopher Stop date: 06/03/16 12:24:00 CDT vancomycin No Route: IV, M emoria (ANES) 4 Drug form: l (ANES) 17:00: INJ, Start Jackelyn date: 06/03/16 12:00:00 CDT, Stop date: 06/03/16 13:00:00 CDT vancomycin No Route: IV, M emoria (ANES) 4 Drug form: l (ANES) 17:00: INJ, Start Jackelyn date: 06/03/16 12:00:00 CDT, Stop date: 06/03/16 13:00:00 CDT vancomycin No Route: IV, M emoria (ANES) 4 Drug form: l (ANES) 17:00: INJ, Start Jackelyn date: 06/03/16 12:00:00 CDT, Stop date: 06/03/16 13:00:00 CDT vancomycin No Route: IV, M emoria (ANES) 4- Drug form: l (ANES) 17:00: INJ, Start Jackelyn date: 06/03/16 12:00:00 CDT, Stop date: 06/03/16 13:00:00 CDT ceFAZolin No Route: IV, Me moria (ANES) 4- Drug form: l (ANES) 16:47: INJ, Start Jackelyn nn date: 06/03/16 11:47:00 CDT, Stop date: 06/03/16 12:47:00 CDT ceFAZolin No Route: IV, Me moria (ANES) 4-21 Drug form: l (ANES) 16:47: INJ, Start Jackelyn nn date: 06/03/16 11:47:00 CDT, Stop date: 06/03/16 12:47:00 CDT ceFAZolin No Route: IV, Me moria (ANES) 4-21 Drug form: l (ANES) 16:47: INJ, Start Jackelyn date: 06/03/16 11:47:00 CDT, Stop date: 06/03/16 12:47:00 CDT ceFAZolin No Route: IV, Me moria (ANES) 4-21 Drug form: l (ANES) 16:47: INJ, Start [...] INJ (ANES) 4-21 Total l 16:35: Volume: [place] 00 1,000, Start date: 06/03/16 11:35:00 CDT, Stop date: 06/03/16 12:35:00 CDT Insulin 2017-0 No 2 unit, Memoria regular 4-21 Route: IV, l 16:03: ONCE, Christopher 00 Dosing Weight 68.636, kg, Start date: 06/03/16 11:03:00 CDT, Stop date: 06/03/16 11:03:00 CDT Insulin 2017-0 No 2 unit, Memoria regular 4-21 Route: IV, l 16:03: ONCE, [place] 00 Dosing Weight 68.636, kg, Start date: 06/03/16 11:03:00 CDT, Stop date: 06/03/16 11:03:00 CDT Insulin 2017-0 No 2 unit, Memoria regular 4-21 Route: IV, l 16:03: ONCE, [place] 00 Dosing Weight 68.636, kg, Start date: 06/03/16 11:03:00 CDT, Stop date: 06/03/16 11:03:00 CDT Insulin 2017-0 No 2 unit, Memoria regular 4-21 Route: IV, l 16:03: ONCE, [place] 00 Dosing Weight 68.636, kg, Start date: 06/03/16 11:03:00 CDT, Stop date: 06/03/16 11:03:00 CDT Insulin 2017-0 No 6 unit, Memoria regular 4-21 Route: IV, l 15:44: ONCE, [place] 00 Dosing Weight 68.636, kg, Start date: 06/03/16 10:44:00 CDT, Stop date: 06/03/16 10:44:00 CDT Insulin 2017-0 No 6 unit, Memoria regular 4-21 Route: IV, l 15:44: ONCE, Christopher 00 Dosing Weight 68.636, kg, Start date: 06/03/16 10:44:00 CDT, Stop date: 06/03/16 10:44:00 CDT Insulin 2017-0 No 6 unit, Memoria regular 4-21 Route: IV, l 15:44: ONCE, [place] 00 Dosing Weight 68.636, kg, Start date: 06/03/16 10:44:00 CDT, Stop date: 06/03/16 10:44:00 CDT Insulin 2017-0 No 6 unit, Memoria regular 4-21 Route: IV, l 15:44: ONCE, Dosing Weight [...] Rate: 40 l 1,000 mL 15:41: ml/hr, [place] 00 Infuse over: 25 hr, Route: IV, Dosing Weight 68.636 kg, Total Volume: 1,000, Start date: 06/03/16 10:41:00 CDT, Duration: 30 day, Stop date: 07/03/16 10:40:00 CDT Vancomycin 2017-0 No 2001 mg: Me moria 4-13 infuse l 14:00: over 2.5 [place] 00 hours MEDICATION WASTE Product Size: 1000 mg Product Wasted: ___ mg Vancomycin 2017-0 No 2000 mg: Me moria 4-13 infuse l 14:00: over 2.5 [place] 00 hours MEDICATION WASTE Product Size: 1000 mg Product Wasted: ___ mg Ancef 2017-0 No Notes: Memoria 4-13 Same as: l 14:00: Ancef [place] 00 Ancef 2017-0 No Notes: Memoria 4-13 Same as: l 14:00: Ancef [place] Vancomycin 2017-0 No 2000 mg: Me moria 4-13 infuse l 14:00: over 2.5 Christopher 00 hours MEDICATION WASTE Product Size: 1000 mg Product Wasted: ___ mg Ancef 2017-0 No Notes: Memoria 4-13 Same as: l 14:00: Ancef [place] Vancomycin 2017-0 No 2000 mg: Me moria 4-13 infuse l 14:00: over 2.5 [place] 00 hours MEDICATION WASTE Product Size: 1000 mg Product Wasted: ___ mg Ancef 2017-0 No Notes: Memoria 4-13 Same as: l 14:00: Ancef Alendronic Yes 70 mg = 1 Me moria acid 70 MG 4-13 tab, PO, 0 l Oral Tablet 13:59: Refill(s) H Alendronic Yes 70 mg = 1 Me moria acid 70 MG 4-13 tab, PO, 0 l Oral Tablet 13:59: Refill(s) H Alendronic Yes 70 mg = 1 Me moria acid 70 MG 4-13 tab, PO, 0 l Oral Tablet 13:59: Refill(s) H alendronate Yes See Memori a 70 mg oral 4-13 Instructio l tablet 13:59: ns, 1 tab Mckinley n 00 PO, 0 Refill(s) Alendronic Yes 70 mg = 1 Me [...] tab, PO, l tablet 13:58: Daily, 0 [place] 00 Refill(s) GlipiZIDE Yes 10 mg = 1 Mem oria XL 10 mg 4-13 tab, PO, l oral 13:58: Daily, 0 [place] tablet, 00 Refill(s) extended release Vitamin B12 Yes 1,000 Memor ia 1000 mcg 4-13 microgram l oral tablet 13:58: = 1 tab, He rmann 00 PO, Daily, 0 Refill(s) citalopram Yes 10 mg = 1 Me moria 10 mg oral 4-13 tab, PO, l tablet 13:58: Daily, 0 [place] 00 Refill(s) GlipiZIDE Yes 10 mg = [...] tab, PO, l tablet 13:58: Daily, 0 [place] 00 Refill(s) GlipiZIDE Yes 10 mg = 1 Mem oria XL 10 mg 4-13 tab, PO, l oral 13:58: Daily, 0 [place] tablet, 00 Refill(s) extended release citalopram Yes 10 mg = 1 Me moria 10 mg oral 4-13 tab, PO, l tablet 13:58: Daily, 0 Christopher 00 Refill(s) Vitamin B12 Yes 1,000 Memor ia 1000 mcg 4-13 microgram l oral tablet 13:58: = 1 tab, He rmann 00 PO, Daily, 0 Refill(s) GlipiZIDE Yes 10 mg = 1 Mem oria XL 10 mg 4-13 tab, PO, l oral 13:58: Daily, 0 [place] tablet, 00 Refill(s) extended release Potassium Yes 10 mEq = 1 Me moria Chloride 10 4-13 tab, PO, l MEQ 13:57: BID, 0 [place] Extended 00 Refill(s) Release Tablet [Klor-Con] pentoxifyll Yes 400 mg = 1 Memoria ine 400 mg 4-13 tab, PO, l oral 13:57: TID, 0 [place] tablet, 00 Refill(s) extended release Potassium Yes 10 mEq = 1 Me moria Chloride 10 4-13 tab, PO, l MEQ 13:57: BID, 0 [place] Extended 00 Refill(s) Release Tablet [Klor-Con] pentoxifyll [...] tab, PO, l oral 13:57: TID, 0 [place] tablet, 00 Refill(s) extended release pentoxifyll 2017- Yes 400 mg = 1 Memoria ine 400 mg 4-13 tab, PO, l oral 13:57: TID, 0 [place] tablet, 00 Refill(s) extended release Klor-Con 10 2017- Yes 10 mEq = 1 Memoria oral 4-13 tab, PO, l tablet, 13:57: BID, 0 Christopher extended 00 Refill(s) release Potassium 2016- Yes 10 mEq = 1 Me moria Chloride 10 4-13 tab, PO, l MEQ 13:57: BID, 0 Christopher Extended 00 Refill(s) Release Tablet [Klor-Con] clopidogrel 2012-0 Yes 75 mg, 1 Me moria 75 mg oral 4-08 tab, PO, l tablet 15:52: Daily, 30 Mckinley n 19 tab, Substituti on Allowed, TAB atorvastati 2012-0 Yes 10 mg, 1 Me moria n 10 mg 4-08 tab, PO, l oral tablet 15:51: Daily, 30 H ermann 57 tab, Substituti on Allowed, TAB isosorbide 2012-0 No Carol 20 mg, 1 M emoria dinitrate -14 Rajagopala tab, l 18:00: s Alphonso Route: PO, Drug form: TAB, TID, Dosing Weight 69.091, kg, Start date: 04/26/12 13:00:00, Duration: 30 day, Stop date: 05/26/12 9:00:00 isosorbide 2012-0 No Carol 20 mg, 1 M emoria dinitrate - [place] tab, l 18:00: s Alphonso Route: PO, Drug form: TAB, TID, Dosing Weight 69.091, kg, Start date: 04/26/12 13:00:00, Duration: 30 day, Stop date: 05/26/12 9:00:00 isosorbide 2012-0 No Carol 20 mg, 1 M emoria dinitrate -14 [place] tab, l 18:00: s [place]phon[place] Route: PO, Drug form: TAB, TID, Dosing Weight 69.091, kg, Start date: 04/26/12 13:00:00, Duration: 30 day, Stop date: 05/26/12 9:00:00 isosorbide 2012- No Carol 20 mg, 1 M emoria dinitrate 3-14 [place] tab, l 18:00: s Alphonso Route: PO, Her nagel 00 Drug form: TAB, TID, Dosing Weight 69.091, kg, Start date: 04/26/12 13:00:00, Duration: 30 day, Stop date: 05/26/12 9:00:00 losartan 50 Yes Taso 100 mg, 2 M emoria mg oral 3-14 Mougouris tab, PO, l tablet 16:05: Daily, 30 Mckinley n 17 tab, Substituti on Allowed, TAB losartan 50 Yes Taso 100 mg, 2 M emoria mg oral 3-14 Mougouris tab, PO, l tablet 16:05: Daily, 30 Mckinley cotton 17 tab, Substituti on Allowed, TAB losartan 50 Yes Taso 100 mg, 2 M emoria mg oral 3-14 Mougouris tab, PO, l tablet 16:05: Daily, 30 Mckinley n 17 tab, Substituti on Allowed, TAB losartan 50 2012-0 Yes Taso 100 mg, 2 M emoria mg oral 3-14 Mougouris tab, PO, l tablet 16:05: Daily, 30 Mckinley cotton 17 tab, Substituti on Allowed, TAB metoprolol 2012- Yes Taso 75 mg, 1.5 M emoria 50 mg oral 3-14 Mougouris tab, PO, l tablet 16:04: BID, 30 Christopher 44 tab, Substituti on Allowed, TAB metoprolol 2012- Yes Taso 75 mg, 1.5 M emoria 50 mg oral 3-14 Mougouris tab, PO, l tablet 16:04: BID, 30 Christopher 44 tab, Substituti on Allowed, TAB metoprolol 2012- Yes Taso 75 mg, 1.5 M emoria [...] l oral tablet 16:02: QPM, 30 Her ngael 51 tab, Substituti on Allowed, TAB rosuvastati Yes Taso 20 mg, 2 Me moria n 10 mg 3-14 Mougouris tab, PO, l oral tablet 16:02: QPM, 30 Her nagel 51 tab, Substituti on Allowed, TAB rosuvastati Yes Taso 20 mg, 2 Me moria n 10 mg 3-14 Mougouris tab, PO, l oral tablet 16:02: QPM, 30 Her nagel 51 tab, Substituti on Allowed, TAB rosuvastati Yes [...] 41 tab, Substituti on Allowed, TAB isosorbide 2012- Yes Taso 20 mg, 1 Mem oria dinitrate 3-14 Mougouris tab, PO, l 20 mg oral 16:02: BID, 60 Herm shannan tablet 41 tab, Substituti on Allowed, TAB isosorbide 2012- Yes Taso 20 mg, 1 Mem oria [...] Itching, Substituti on Allowed, TAB aspirin 325 0 Yes Taso 325 mg, 1 M emoria mg tablet, 3-14 Mougouris tab, PO, l enteric 16:02: QAM, 30 [place] coated 25 tab, Substituti on Allowed, ECTAB aspirin 325 0 Yes Taso 325 mg, 1 M emoria mg tablet, 3-14 Mougouris tab, PO, l enteric 16:02: QAM, 30 Christopher coated 25 tab, Substituti on Allowed, ECTAB aspirin 325 0 Yes Taso 325 mg, 1 M emoria mg tablet, 3-14 Mougouris tab, PO, l enteric 16:02: QAM, 30 Christopher coated 25 tab, Substituti on Allowed, ECTAB aspirin 325 2012-0 Yes Taso 325 mg, 1 M emoria mg tablet, 3-14 Mougouris tab, PO, l enteric 16:02: QAM, 30 Christopher coated 25 tab, Substituti on Allowed, ECTAB acetaminoph 0 Yes Taso 1 tab, PO, Memoria en-hydrocod [...] PRN, l one 325 16:02: 30 tab, [place] mg-5 mg 22 Pain Score oral tablet 1-3, Substituti on Allowed, Maintenanc e, TAB isosorbide 0 No Carol 20 mg, 1 M emoria dinitrate 3-14 [place] tab, l 02:00: s [place]phon[place] Route: PO, Her [facility] 00 Drug form: TAB, BID, Dosing Weight 69.091, kg, Start date: 04/25/12 21:00:00, Duration: 30 day, Stop date: 05/25/12 17:00:00 Crestor 2012-0 No Carol 20 mg, 2 Wilfrid mendy 3-14 [place] tab, l 02:00: s [place]phon[place] Route: PO, Her [facility] Drug form: TAB, QPM, Dosing Weight 69.091, kg, Start date: 04/25/12 21:00:00, Duration: 30 day, Stop date: 05/25/12 17:00:00 isosorbide 2012-0 No Carol 20 mg, 1 M emoria dinitrate 3-14 [place] tab, l 02:00: s Alphonso Route: PO, Her [facility] 00 Drug form: TAB, BID, Dosing Weight [...] 30 day, Stop date: 05/25/12 17:00:00 methylPREDN 2013-0 No Kowalski Lissett 20 mg, 0.5 Memoria ISolone 3-14 [place] mL, Route: l 01:20: IV, Drug [place] 00 form: INJ, ONCE, Start date: 04/25/12 20:20:00, Stop date: 04/25/12 20:20:00 methylPREDN 2012-0 No Kowalski Lissett 20 mg, 0.5 Memoria ISolone 3-14 [place] mL, Route: l 01:20: IV, Drug [place] 00 form: INJ, ONCE, Start date: 04/25/12 20:20:00, Stop date: 04/25/12 20:20:00 methylPREDN 2012-0 No Kowalski Lissett 20 mg, 0.5 Memoria ISolone 3-14 [place] mL, Route: l 01:20: IV, Drug [place] 00 form: INJ, ONCE, Start date: 04/25/12 20:20:00, Stop date: 04/25/12 20:20:00 methylPREDN 2012-0 No Kowalski Lissett 20 mg, 0.5 Memoria ISolone 3-14 [place] mL, Route: l 01:20: IV, Drug [place] 00 form: INJ, ONCE, Start date: 04/25/12 20:20:00, Stop date: 04/25/12 20:20:00 simvastatin 2012-0 No Kowalski Lissett 10 mg, 1 Memoria 3-13 [place] tab, l 02:00: Route: PO, [place] 00 Drug form: TAB, Bedtime, Dosing Weight 69.091, kg, Start date: 04/24/12 21:00:00, Duration: 30 day, Stop date: 05/23/12 21:00:00 simvastatin 2012-0 No Kowalski Lissett 10 mg, 1 Memoria 3-13 [place] tab, l 02:00: Route: PO, [place] 00 Drug form: TAB, Bedtime, Dosing Weight [...] 3-13 [place] tab, l 02:00: Route: PO, [place] 00 Drug form: TAB, Bedtime, Dosing Weight 69.091, kg, Start date: 04/24/12 21:00:00, Duration: 30 day, Stop date: 05/23/12 21:00:00 Benadryl 2013-0 No Sanjiv 25 mg, 1 Memor ia 3-12 Yarsani tab, l 09:47: Shant Route: PO, Herm shannan 00 Drug form: TAB, TID, Dosing Weight 69.091, kg, PRN Itching, Start date: 04/24/12 4:47:00, Duration: 30 day, Stop date: 05/24/12 4:46:00 Benadryl 2013-0 No Sanjiv 25 mg, 1 Memor ia 3-12 Yarsani tab, l 09:47: Shant Route: PO, Herm shannan 00 Drug form: TAB, TID, Dosing Weight 69.091, kg, PRN Itching, Start date: 04/24/12 4:47:00, Duration: 30 day, Stop date: 05/24/12 4:46:00 Benadryl 2013-0 No Sanjiv 25 mg, 1 Memor ia 3-12 Yarsani tab, l 09:47: Shant Route: PO, Herm shannan 00 Drug form: TAB, TID, Dosing Weight 69.091, kg, PRN Itching, Start date: 04/24/12 4:47:00, Duration: 30 day, Stop date: 05/24/12 4:46:00 Benadryl 2013-0 No Sanjiv 25 mg, 1 Memor ia -12 Yarsani tab, l 09:47: Shant Route: PO, Herm shannan 00 Drug form: TAB, TID, Dosing Weight 69.091, kg, PRN Itching, Start date: 04/24/12 4:47:00, Duration: 30 day, Stop date: 05/24/12 4:46:00 12 NS 2012-0 No Taso 1,000 mL, Memori a 1,000 mL 04-23 Mougouris Rate: 50 l 00:46: ml/hr, Christopher 00 Infuse over: 20 hr, Route: IV, kg, Total Volume: 1,000, Start date: 04/22/12 19:46:00, Duration: 30 day, Stop date: 05/22/12 19:45:00 02/14 NS 2013-0 No Taso 1,000 mL, Memori a 1,000 mL 3-11 Mougouris Rate: 50 l 00:46: ml/hr, [place] 00 Infuse over: 20 hr, Route: IV, kg, Total Volume: 1,000, Start date: 04/22/12 19:46:00, Duration: 30 day, Stop date: 05/22/12 19:45:00 02/14 NS 2012-0 No Taso 1,000 mL, Memori a 1,000 mL 3-11 Mougouris Rate: 50 l 00:46: ml/hr, [place] 00 Infuse over: 20 hr, Route: IV, [...] 30 day, Stop date: 05/22/12 12:00:00 Robitussin 2013-0 No Renee 200 mg, 10 Memoria 100 mg/5 mL 3-10 Abousslema mL, Route: l oral liquid 19:24: n PO, Drug He rm form: LIQ, Q4H, Dosing Weight 69.091, kg, Start date: 04/22/12 14:24:00, Duration: 30 day, Stop date: 05/22/12 12:00:00 Robitussin 2013-0 No Renee 200 mg, 10 Memoria 100 mg/5 mL 3-10 Abousslema mL, Route: l oral liquid 19:24: n PO, Drug He form: LIQ, Q4H, Dosing Weight 69.091, kg, Start date: 04/22/12 14:24:00, Duration: 30 day, Stop date: 05/22/12 12:00:00 Robitussin 2013-0 No Renee 200 mg, 10 Memoria 100 mg/5 mL 3-10 Abousslema mL, Route: l oral liquid 19:24: n PO, Drug He form: LIQ, Q4H, Dosing Weight 69.091, kg, Start date: 04/22/12 14:24:00, Duration: 30 day, Stop date: 05/22/12 12:00:00 potassium 2013-0 No Papo 20 mEq, M emoria chloride 3-10 Terry 100 mL, l 15:00: Route: [place] 00 IVPB, Drug form: INJ, Q2H, Start [...] 3-10 Terry 100 mL, l 15:00: Route: [place] 00 IVPB, Drug form: INJ, Q2H, Start [...] Terminella Route: IM, l 06:52: Drug form: [place] 00 PDR/INJ, Q8H, PRN Anxiety, Start date: 04/22/12 0:52:00, Duration: 30 day, Stop date: 05/22/12 0:51:00 Geodon 2012-0 No Erasmo 10 mg, Memoria 3-10 Terminella Route: IM, l 06:52: Drug form: [place] PDR/INJ, Q8H, PRN Anxiety, Start date: 04/22/12 [...] l enteric 15:00: Marcin Route: PO, Deven smithann lovely Drug form: ECTAB, QAM, Start date: 04/21/12 9:00:00, Duration: 30 day, Stop date: 05/20/12 9:00:00 famotidine 2012-0 No Erasmo 20 mg, 1 Me moria 3 Terminella tab, l 15:00: Route: PO, [place] Drug form: TAB, Daily, Dosing Weight 69.091, kg, Start date: 04/21/12 9:00:00, Duration: 30 day, Stop date: 05/20/12 9:00:00 aspirin 325 2012-0 No Luis 325 mg, 1 Memoria mg tablet, - Guru tab, l enteric 15:00: Marcin Route: PO, He rmann coated 00 Drug form: ECTAB, QAM, Start date: 04/21/12 9:00:00, Duration: 30 day, Stop date: 05/20/12 9:00:00 famotidine 2013-0 No Erasmo 20 mg, 1 Me moria -09 Terminella tab, l 15:00: Route: PO, Christopher [...] -09 Terminella tab, l 15:00: Route: PO, Christopher [...] 30 day, Stop date: 05/20/12 9:00:00 famotidine 2013-0 No Erasmo 20 mg, 1 Me moria 3-09 Terminella tab, l 15:00: Route: PO, [place] 00 Drug form: TAB, Daily, Dosing Weight 69.091, kg, Start date: 04/21/12 9:00:00, Duration: 30 day, Stop date: 05/20/12 9:00:00 niCARdipine 2012-0 No Erasmo IV, Start Memoria 3-08 Terminella date: l 23:35: 04/20/12 [place] 00 17:35:00, Duration: 30, 200 ml, 69.091 niCARdipine 2012-0 No Erasmo IV, Start Memoria 04-20 Terminella date: l 23:35: 04/20/12 [place] 00 17:35:00, Duration: 30, 200 ml, 69.091 niCARdipine 2012-0 No Erasmo IV, Start Memoria 04-20 Terminella date: l 23:35: 04/20/12 [place] 00 17:35:00, Duration: 30, 200 ml, 69.091 niCARdipine 2012-0 No Erasmo IV, Start Memoria 04-20 Terminella date: l 23:35: 04/20/12 [place] 17:35:00, Duration: 30, 200 ml, 69.091 Sodium [...] 70 l 0.9% IV 21:38: n ml/hr, [place] 1,000 mL 00 Infuse over: 14.3 hr, Route: IV, kg, Total Volume: 1,000, Start date: 04/20/12 15:38:00, Stop date: 05/20/12 15:37:00 Sodium 2012-0 No Renee 1,000 mL, Memor ia Chloride 3-08 Abousslema Rate: 70 l 0.9% IV 21:38: n ml/hr, [place] 1,000 mL 00 Infuse over: 14.3 hr, [...] 3-08 Guru supp, l 21:36: Marcin Route: GA, Jackelyn nn Drug form: SUPP, Q4H, PRN Fever, Start date: 04/20/12 15:36:00, Duration: 30 day, Stop date: 05/20/12 15:35:00 Tylenol 2012-0 No Luis 650 mg, 1 Mem oria 3-08 Guru supp, l 21:36: Marcin Route: GA, Jackelyn Drug form: SUPP, Q4H, PRN Fever, Start date: 04/20/12 15:36:00, Duration: 30 day, Stop date: 05/20/12 15:35:00 Tylenol 2012-0 No Luis 650 mg, 1 Mem oria 3-08 Guru supp, l 21:36: Marcin Route: GA, Jackelyn Drug form: SUPP, Q4H, PRN Fever, Start date: 04/20/12 15:36:00, Duration: 30 day, Stop date: 05/20/12 15:35:00 Tylenol 2012-0 No Luis 650 mg, 1 Mem oria 3-08 Guru supp, l 21:36: Marcin Route: GA, Jackelyn nn Drug form: SUPP, Q4H, PRN [...] Terry mL, Route: l 21:27: IV, Drug [place] 00 form: INJ, Q2H, PRN Pain Score [...] mL, Route: l 21:24: Marcin IV, Drug [place] 00 form: INJ, Q2H, PRN Pain Score [...] mL, Route: l 21:24: Marcin IV, Drug [place] 00 form: INJ, Q2H, PRN Pain Score [...] No Luis 1 tab, Me moria en-hydrocod - Guru Route: PO, l one 325 21:23: Marcin Drug Form: He rmann mg-5 mg 00 TAB, Q4H, oral tablet PRN Pain Score 1-3, Start date: 04/20/12 15:23:00, Duration: 30 day, Stop date: 05/20/12 15:22:00 acetaminoph No Luis 1 tab, Me moria en-hydrocod 04-20 Guru Route: PO, l one 325 21:23: Marcin Drug Form: He rmann mg-5 mg 00 TAB, Q4H, oral tablet PRN Pain Score 1-3, Start date: 04/20/12 15:23:00, Duration: 30 day, Stop date: 05/20/12 15:22:00 acetaminoph No Luis 1 tab, Me moria en-hydrocod 04-20 Guru Route: PO, l one 325 21:23: Marcin Drug Form: He rmann mg-5 mg 00 TAB, Q4H, oral tablet PRN Pain Score 1-3, Start date: 04/20/12 15:23:00, Duration: 30 day, Stop date: 05/20/12 15:22:00 acetaminoph No Luis 1 tab, Me moria en-hydrocod 04-20 Guru Route: PO, l one 325 21:23: Marcin Drug Form: He rmann mg-5 mg 00 TAB, Q4H, oral tablet PRN Pain Score 1-3, Start date: 04/20/12 15:23:00, Duration: 30 day, Stop date: 05/20/12 15:22:00 hydrALAZINE Meaghan Smith 10 mg, 0.5 Memoria 04-20 Guru mL, Route: l 21:19: Marcin IV, Drug Christopher 00 form: INJ, Q6H, PRN Other -See Comment, Start date: 04/20/12 15:19:00, Duration: 30 day, Stop date: 05/20/12 15:18:00 hydrALAZINE 2013-0 No Luis 10 mg, 0.5 Memoria 3-08 Guru mL, Route: l 21:19: Marcin IV, Drug [place] 00 form: INJ, Q6H, PRN Other -See Comment, Start date: 04/20/12 15:19:00, Duration: 30 day, Stop date: 05/20/12 15:18:00 hydrALAZINE 2013-0 No Luis 10 mg, 0.5 Memoria 3-08 Guru mL, Route: l 21:19: Marcin IV, Drug [place] 00 form: INJ, Q6H, PRN Other -See Comment, Start date: 04/20/12 15:19:00, Duration: 30 day, Stop date: 05/20/12 15:18:00 hydrALAZINE 2013-0 No Luis 10 mg, 0.5 Memoria 3-08 Guru mL, Route: l 21:19: Marcin IV, Drug [place] 00 form: INJ, Q6H, PRN Other -See [...] 1 day, Stop date: 04/21/12 9:58:00 Lactated 2013-0 No Luis 1,000 mL, Me moria Ringers [...] 1 day, Stop date: 04/21/12 9:58:00 Lactated 2013-0 No Luis 1,000 mL, Me moria Ringers 3-08 Guru Rate: 25 l Injection 15:59: Marcin ml/hr, Herm shannan IV 1,000 mL 00 Infuse over: 40 hr, Route: IV, kg, Total Volume: 1,000, Start date: 04/20/12 9:59:00, Duration: 1 day, Stop date: 04/21/12 9:58:00 losartan 2012-0 No Taso 100 mg, 2 Wilfrid mendy 3-08 Mougouris tab, l 15:00: Route: PO, [place] 00 Drug form: TAB, Daily, Dosing Weight [...] 3-08 Mougouris tab, l 15:00: Route: PO, [place] 00 Drug form: TAB, Daily, Dosing Weight [...] Mougouris unit, 1 l 03:00: mL, Route: [place] 00 SUB-Q, Drug form: INJ, Q12H, Dosing Weight 68.182, kg, Start date: 04/19/12 21:00:00, Duration: 30 day, Stop date: 05/19/12 9:00:00 latanoprost 2012-0 No Taso 1 drp, Wilfrid mendy ophthalmic 3-08 Mougouris Route: l 0.005% 03:00: OPTH, [place] solution 00 Bedtime, Drug form: SOLN, Start date: 04/19/12 21:00:00, Duration: 30 day, Stop date: 05/18/12 21:00:00 heparin 2012-0 No Taso 5,000 Memoria 3-08 Mougouris unit, 1 l 03:00: mL, Route: [place] 00 SUB-Q, Drug form: INJ, Q12H, Dosing [...] Terry mL, Route: l 23:18: IVP, Drug [place] 00 form: INJ, PRN, PRN Bradycardi a, [...] 3-07 Mougouris tab, l 23:00: Route: PO, [place] 00 Drug form: TAB, BID, Dosing Weight 68.182, kg, Start date: 04/19/12 17:00:00, Stop date: 05/19/12 9:00:00 timolol 2012- No Taso 1 drp, Memoria ophthalmic 3-07 [place] Route: l 0.5% 23:00: BOTH EYES, [place] solution 00 QPM, Drug form: SOLN, Start date: 04/19/12 17:00:00, Stop date: 05/18/12 17:00:00 brimonidine 2012- No Taso 1 drp, Wilfrid mendy ophthalmic 3-07 [place] Route: l 0.15% 23:00: OPTH, BID, Mckinley n solution 00 Drug form: SOLN, Start date: 04/19/12 17:00:00, Stop date: 05/19/12 9:00:00 baclofen 2012- No Taso 10 mg, 1 Memor ia 3-07 [place] tab, l 23:00: Route: PO, [place] 00 Drug form: TAB, BID, Dosing Weight 68.182, kg, Start date: 04/19/12 17:00:00, Duration: 30 day, Stop date: 05/19/12 9:00:00 vancomycin 2012- No Luis 1 gm, 200 [...] 3-07 [place] tab, l 23:00: Route: PO, [place] 00 Drug form: TAB, BID, Dosing Weight [...] 3-07 [place] tab, l 23:00: Route: PO, [place] 00 Drug form: TAB, BID, Dosing Weight [...] 3-07 [place] tab, l 23:00: Route: PO, [place] 00 Drug form: TAB, BID, Dosing Weight [...] Mougouris mL, Route: l 18:50: INJ, Drug [place] 00 form: INJ, Q6H, Dosing Weight 68.182, kg, PRN as needed for anxiety, Start date: 04/19/12 12:50:00, Duration: 30 day, Stop date: 05/19/12 12:49:00 clonidine 2012-0 No Taso 0.1 mg, 1 Mem oria 3-07 [place] tab, l 18:50: Route: PO, [place] 00 Drug form: TAB, Q8H, Dosing Weight [...] 3-07 [place] tab, l 18:50: Route: PO, [place] 00 Drug form: TAB, Q8H, Dosing Weight 68.182, kg, PRN Hypertensi on, Start date: 04/19/12 12:50:00, Duration: 30 day, Stop date: 05/19/12 12:49:00 Ativan 2012-0 No Taso 1 mg, 0.5 Memori a 3-07 [place] mL, Route: l 18:50: INJ, Drug [place] 00 form: INJ, Q6H, Dosing Weight 68.182, [...] M[place]ouris Route: IM, l 18:49: Drug form: [place] 00 PDR/INJ, PRN, Dosing Weight 68.182, kg, [...] Mougouris Route: IM, l 18:49: Drug form: [place] PDR/INJ, PRN, Dosing Weight 68.182, kg, PRN Blood Glucose Results, Start date: 04/19/12 12:49:00, Duration: 30 day, Stop date: 05/19/12 13:48:00 insulin 2012-0 No Taso 1 unit, Memoria aspart 3-07 [place] 0.01 mL, l 18:49: Route: Christopher SUB-Q, Drug form: SOLN, TID-Before Meals, Dosing [...] Mougouris Route: IM, l 18:49: Drug form: [place] 00 PDR/INJ, PRN, Dosing Weight 68.182, kg, PRN Blood Glucose Results, Start date: 04/19/12 12:49:00, Duration: 30 day, Stop date: 05/19/12 13:48:00 insulin 2012-0 No Taso 1 unit, Memoria aspart 3-07 [place] 0.01 mL, l 18:49: Route: [place] 00 SUB-Q, Drug form: SOLN, TID-Before Meals, Dosing Weight 68.182, kg, PRN Blood Glucose Results, Start date: 04/19/12 12:49:00, Duration: 30 day, Stop date: 05/19/12 12:48:00 Dextrose 2012-0 No Taso 25 gm, 50 Wilfrid mendy 50% Syringe 3-07 [place] mL, Route: l 18:49: IVP, Drug [place] 00 Form: INJ, Dosing Weight 68.182, kg, [...] 3-07 [place] 0.01 mL, l 18:49: Route: [place] 00 SUB-Q, Drug form: SOLN, TID-Before Meals, [...] 12:25:00, Stop date: 04/19/12 12:25:00 aspirin 325 2012- No Luis 325 mg, M emoria mg tablet 04-19 Guru Route: PO, l 18:25: Marcin Drug form: Jackelyn nn 00 TAB, ONCE, Dosing Weight 68.182, kg, Priority: STAT, Start date: 04/19/12 12:25:00, Stop date: 04/19/12 12:25:00 hydrALAZINE No Luis 20 mg, 1 Memoria - Guru mL, Route: l 12:07: Marcin IV, Drug [place] 00 form: INJ, Q6H, Dosing Weight 68.182, kg, PRN Elevated BP, Start date: 04/19/12 6:07:00, Duration: 30 day, Stop date: 05/19/12 6:06:00, SBP >165 hydrALAZINE No Luis 20 mg, 1 Memoria 04-19 Guru mL, Route: l 12:07: Marcin IV, Drug [facility] 00 form: INJ, Q6H, Dosing Weight 68.182, kg, PRN Elevated BP, Start date: 04/19/12 6:07:00, Duration: 30 day, Stop date: 05/19/12 6:06:00, SBP >165 hydrALAZINE No Luis 20 mg, 1 Memoria 04-19 Guru mL, Route: l 12:07: Marcin IV, Drug [place] 00 form: INJ, Q6H, Dosing Weight 68.182, kg, PRN Elevated BP, Start date: 04/19/12 6:07:00, Duration: 30 day, Stop date: 05/19/12 6:06:00, SBP >165 hydrALAZINE No Luis 20 mg, 1 Memoria - Guru mL, Route: l 12:07: Marcin IV, Drug [facility] 00 form: INJ, Q6H, Dosing Weight 68.182, kg, PRN Elevated BP, Start date: 04/19/12 6:07:00, Duration: 30 day, Stop date: 05/19/12 6:06:00, SBP >165 brimonidine 2012- Yes Taso 1 drp, Wilfrid mendy ophthalmic 3-07 [place]is OPTH, BID, l 0.15% 08:51: 5 ml, Christopher solution 03 Substitute Allowed, SOLN brimonidine 2012- Yes Taso 1 drp, Wilfrid mendy ophthalmic 3-07 [place] OPTH, BID, l 0.15% 08:51: 5 ml, [place] solution 03 Substitute Allowed, SOLN brimonidine Yes Taso 1 drp, Wilfrid mendy ophthalmic 3-07 [place] OPTH, BID, l 0.15% 08:51: 5 ml, Christopher solution 03 Substitute Allowed, SOLN brimonidine Yes Taso 1 drp, Wilfrid mendy ophthalmic 3-07 [place] OPTH, BID, l 0.15% 08:51: 5 ml, [facility] solution 03 Substitute Allowed, SOLN latanoprost Yes Taso 1 drp, Wiflrid mendy ophthalmic 3-07 [place] OPTH, l 0.005% 08:50: Bedtime, 3 Jackeyln nn solution 00 ml, Substitute Allowed, SOLN latanoprost Yes Taso 1 drp, Wilfrid mendy ophthalmic 3-07 [place] OPTH, l 0.005% 08:50: Bedtime, 3 Jackelyn nn solution 00 ml, Substitute Allowed, SOLN latanoprost Yes Taso 1 drp, Wilfrid mendy ophthalmic 3-07 [place] OPTH, l 0.005% 08:50: Bedtime, 3 Jackelyn nn solution 00 ml, Substitute Allowed, SOLN latanoprost Yes 1 drp, Wilfrid mendy ophthalmic 3-07 OPTH, l 0.005% 08:50: Bedtime, 3 Jackelyn nn solution 00 ml, Substitute Allowed, SOLN latanoprost Yes Taso 1 [...] 18 Substitute solution Allowed, SOLN timolol Yes 1 drp, [facility] ophthalmic 3-07 OPTH, QPM, l long-acting 08:49: 5 ml, [...] mg, 1 Wilfrid mendy 100 mg oral 3 [place] tab, PO, l tablet 08:45: Daily, [...] tab, PO, l mg oral 08:44: BID, [place] tablet 00 Substituti on Allowed Metoprolol No [...] Substituti on Allowed, Maintenanc e, TAB glyBURIDE-m 2012- Yes 2 tab, PO, Memoria etformin 5 3-07 BID, 60 l mg-500 mg 08:42: tab, Christopher oral tablet 12 Substituti on Allowed, Maintenanc e, TAB baclofen Yes Taso 10 mg, PO, Mem oria 3-07 [place] BID, l 08:38: Substituti [place] on Allowed baclofen Yes Taso 10 mg, PO, Mem oria 3-07 [place] BID, l 08:38: Substituti [place] on Allowed baclofen Yes Taso 10 mg, PO, Mem oria 3-07 [place] BID, l 08:38: Substituti [facility] on Allowed baclofen Yes Taso 10 mg, PO, Mem oria 3-07 [place]is BID, l 08:38: Substituti Christopher on Allowed Saline No Papo 5 ml, Memori a Flush 0.9% 04-19 Terry Route: l 06:44: IVP, Drug Form: INJ, Dosing Weight 68.182, kg, PRN, PRN Line Flush, Start date: 04/19/12 0:44:00, Duration: 30 day, Stop date: 05/19/12 1:43:00 acetaminoph No Papo 650 mg, 2 Memoria en 04-19 Terry tab, l 06:44: Route: PO, 00 Drug form: TAB, Q4H, Dosing Weight 68.182, kg, PRN Pain/Fever , Start date: 04/19/12 0:44:00, Duration: 30 day, Stop date: 05/19/12 0:43:00 ondansetron No Papo 4 mg, 2 Memoria 04-19 Terry mL, Route: l 06:44: IVP, Drug form: INJ, Q6H, Dosing Weight 68.182, kg, PRN Nausea & Vomiting, Start date: 04/19/12 0:44:00, Duration: 30 day, Stop date: 05/19/12 0:43:00 Sodium 2013-0 No Luis 1,000 mL, Wilfrid mendy Chloride [...] 30 day, Stop date: 05/19/12 0:43:00 ondansetron 2012- No Papo 4 mg, 2 Memoria 3-07 [...] Papo 5 ml, Memori a Flush 0.9% - Terry Route: l 06:44: IVP, Drug Form: [...] Papo 5 ml, Memori a Flush 0.9% 04-19osh Route: l 06:44: IVP, Drug Form: INJ, [...] 30 day, Stop date: 05/19/12 0:43:00 ondansetron 2013-0 No Papo 4 mg, 2 Memoria 3-07 Terry mL, Route: l 06:44: IVP, Drug form: INJ, Q6H, Dosing Weight 68.182, kg, PRN Nausea & Vomiting, Start date: 04/19/12 0:44:00, Duration: 30 day, Stop date: 05/19/12 0:43:00 Sodium 2013-0 No Luis 1,000 mL, Wilfrid mendy Chloride [...] 21:13:00 SoluMedrol 2012-0 No George 125 mg, emoria 04-19 Mac Route: l 03:12: IVP, ONCE, [place] Dosing Weight 68.182, kg, Priority: STAT, Start date: 04/18/12 21:12:00, Stop date: 04/18/12 21:12:00 SoluMedrol 2012-0 No George 125 mg, emoria 04-19 Mac Route: l 03:12: IVP, ONCE, [place] Dosing Weight 68.182, kg, Priority: STAT, Start date: 04/18/12 21:12:00, Stop date: 04/18/12 21:12:00 SoluMedrol 2013-0 No George 125 mg, emoria 04-19 Mac Route: l 03:12: IVP, ONCE, [place] 00 Dosing Weight 68.182, kg, Priority: STAT, Start date: 04/18/12 21:12:00, Stop date: 04/18/12 21:12:00 SoluMedrol 2012-0 No George 125 mg, emoria 04-19 Mac Route: l 03:12: IVP, ONCE, [place] Dosing Weight 68.182, kg, Priority: STAT, Start date: 04/18/12 21:12:00, Stop date: 04/18/12 21:12:00 Saline 2012-0 No Papo 5 mL, Memori a Flush 0.9% 04-19 [facility] Route: l 03:05: IVP, Drug [place] 00 Form: INJ, Dosing Weight 68.182, kg, Q8H, PRN Line Flush, Start date: 04/18/12 21:05:00, Duration: 30 day, Stop date: 05/18/12 21:04:00, Administer at least once every 8 hoursAdmin ister at least once every 8 hours Saline 2012-0 No Papo 5 mL, Memori a Flush 0.9% 3- [facility] Route: l 03:05: IVP, Drug [place] 00 Form: INJ, Dosing Weight 68.182, kg, Q8H, PRN Line Flush, Start date: 04/18/12 21:05:00, Duration: 30 day, Stop date: 05/18/12 21:04:00, Administer at least once every 8 hoursAdmin ister at least once every 8 hours Saline No Papo 5 mL, Memori a Flush 0.9% 04-19 Terry Route: l 03:05: IVP, Drug [place] 00 Form: INJ, Dosing Weight 68.182, kg, Q8H, PRN Line Flush, Start date: 04/18/12 21:05:00, Duration: 30 day, Stop date: 05/18/12 21:04:00, Administer at least once every 8 hoursAdmin ister at least once every 8 hours Saline No Papo 5 mL, Memori a Flush 0.9% 04-19 [facility] Route: l 03:05: IVP, Drug [place] 00 Form: INJ, Dosing Weight 68.182, kg, Q8H, PRN Line Flush, Start date: 04/18/12 21:05:00, Duration: 30 day, Stop date: 05/18/12 21:04:00, Administer at least once every 8 hoursAdmin ister at least once every 8 hours Klor-Con Klor-Con Yes Na Tripp 1 tablet Common M10 M10 with food [facility] Benzonatate Benzonatate Yes Na Tripp 1 capsule Common as needed [facility] Plavix Plavix Yes Na Tripp 1 tablet Comm on [facility] Metoprolol Metoprolol Yes Na Tripp 1 tablet Common Tartrate Tartrate with food [facility] Pantoprazol Pantoprazol Yes Na Tripp 1 tablet Common e Sodium e Sodium [facility] Aspir-81 Aspir-81 Yes Na Tripp 1 tablet Common [facility] Alendronate Alendronate Yes Na Tripp 1 tablet Common Sodium Sodium [facility] Cetirizine Cetirizine Yes Na Tripp TAKE ONE Common HCl HCl TABLET BY Spirit MOUTH ONCE - [facility] DAILY [facility] Citalopram Citalopram Yes Na Tripp take one Common Hydrobromid Hydrobromid tablet by Spirit e e mouth once - [facility] daily [facility] Alicia Vargas Yes Na Tripp 1 tablet Comm on [facility] Atorvastati Atorvastati Yes Na Tripp 1 tablet Common n Calcium n Calcium at bedtime [facility] Ketoconazol Ketoconazol Yes Na Tripp 1 Common e e applicatio Spirit n to - [facility]I affected [facility] Triamcinolo Triamcinolo Yes Na Tripp 1 Common ne ne applicatio Spirit Acetonide Acetonide n to - [facility]I affected [facility] Metformin Metformin Yes Na Tripp 1 tablet Common HCl HCl with a Spirit meal [facility] Pentoxifyll Pentoxifyll Yes Na Tripp 1 tablet Common ine ER ine ER with meals Spiri t - [facility] Potassium Potassium Yes Na Tripp TAKE ONE Common Chloride Chloride TABLET BY Sp [facility] MOUTH - [facility] TWICE [facility] GlipiZIDE GlipiZIDE Yes Na Tripp 1 tablet Common [facility] Hydrochloro Hydrochloro Yes Na Tripp TAKE 1 Common thiazide thiazide TABLET BY Sp sherly MOUTH ONCE - CHI DAILY [facility] Cetirizine Cetirizine No Cetirizine HCl [...] ER 10 MEQ MEQ MEQ Benzonatate Benzonatate 2021- No TID Benzonatat 200 MG 200 MG 03-25 e 200 MG 00:00 :00 Benzonatate Benzonatate 2021- No TID Benzonatat 200 MG 200 MG 03-25 e 200 MG 00:00 :00 Immunizations Ordered Immunization Filled Immunization Date Status Commen ts Source Name Name Pneumococcal 2017-04-02 Completed [facility] 00:00:00 [facility] Pneumococcal 2017-04-02 Completed [facility] 00:00:00 [facility] Pneumococcal 2017-04-02 Completed [facility] 00:00:00 [facility] Pneumococcal 2017-04-02 Completed [facility] 00:00:00 [facility] Pneumococcal 2017-04-02 Completed [facility] 13-[facility] 00:00:00 [facility] pneumococcal 2016-06-09 Completed [facility] 13-valent vaccine 17:59:00 pneumococcal 2016-06-09 Completed [facility] 13-valent vaccine 17:59:00 pneumococcal 2016-06-09 Completed [facility]ag[facility] 13-valent vaccine 17:59:00 pneumococcal 2016-06-09 Completed [facility] Her nagel 13-valent vaccine 17:59:00 influenza virus 2012-01-15 Completed [facility] vaccine, inactivated 05:53:00 influenza virus 2012-01-15 Completed [facility] vaccine, inactivated 05:53:00 influenza virus 2012-01-15 Completed [facility] vaccine, inactivated 05:53:00 influenza virus 2012-01-15 Completed [facility] vaccine, inactivated 05:53:00 influenza virus 2012-01-15 Completed [facility] [place] vaccine, inactivated 05:53:00 influenza virus 2012-01-15 Completed [facility] vaccine, inactivated 05:53:00 influenza virus 2012-01-15 Completed [facility] [place] vaccine, inactivated 05:53:00 influenza virus 2012-01-15 Completed [facility] [place] vaccine, inactivated 05:53:00 Hx pneumococcal 2011-10-16 Completed [facility] vaccine 04:52:00 Hx pneumococcal 2011-10-16 Completed [facility] vaccine 04:52:00 Hx pneumococcal 2011-10-16 Completed [facility] vaccine 04:52:00 Hx pneumococcal 2011-10-16 Completed [facility] [place] vaccine 04:52:00 Hx pneumococcal 2011-10-16 Completed [facility] [place] vaccine 04:52:00 Hx pneumococcal 2011-10-16 Completed [facility] [place] vaccine 04:52:00 Hx pneumococcal 2011-10-16 Completed [facility] vaccine 04:52:00 Hx pneumococcal 2011-10-16 [facility] 04[facility]00 Vital Signs Vital Name Observation Time Observation Value Comments Source height 2022-01-13 13:00:00 60 [in_i] [facility] weight 2022-01-13 13:00:00 135.8 [lb_av] [facility] temperature 2022-01-13 13:00:00 97.1 [degF] [facility] bmi 2022-01-13 13:00:00 26.52 kg/m2 [facility] oximetry 2022-01-13 13:00:00 95 % [facility] respiratory rate 2022-01-13 13:00:00 16 /min Comm on [facility] blood pressure 2022-01-13 13:00:00 132 mm[Hg] Common [facility] - systolic [facility] blood pressure 2022-01-13 13:00:00 60 mm[Hg] Common [facility] diastolic [facility] height 2021-12-14 14:00:00 60 [in_i] [facility] weight 2021-12-14 14:00:00 137.0 [lb_av] [facility] temperature 2021-12-14 14:00:00 97.2 [degF] [facility] bmi 2021-12-14 14:00:00 26.75 kg/m2 [facility] oximetry 2021-12-14 14:00:00 95 % [facility] respiratory rate 2021-12-14 14:00:00 18 /min Comm on [facility] blood pressure 2021-12-14 14:00:00 136 mm[Hg] Common [facility] - systolic [facility] blood pressure 2021-12-14 14:00:00 88 mm[Hg] Common [facility] - diastolic [facility] height 2021-10-12 11:00:00 60 [in_i] Common [facility] weight 2021-10-12 11:00:00 136.6 [lb_av] Common [facility] temperature 2021-10-12 11:00:00 97.4 [degF] Common [facility] bmi 2021-10-12 11:00:00 26.67 kg/m2 Common [facility] oximetry 2021-10-12 11:00:00 95 % [facility] 2021-10-12 11:00:00 18 /min Comm on [facility] blood pressure 2021-10-12 11:00:00 136 mm[Hg] Common [facility] - systolic [facility] blood pressure 2021-10-12 11:00:00 74 mm[Hg] Common [facility] - diastolic [facility] height 2021-07-13 14:20:00 60 [in_i] [facility] 2021-07-13 14:20:00 136 [lb_av] [facility] temperature 2021-07-13 14:20:00 97.3 [degF] Common [facility] bmi 2021-07-13 14:20:00 26.56 kg/m2 Common [facility] oximetry 2021-07-13 14:20:00 96 % Common [facility] respiratory rate 2021-07-13 14:20:00 17 /min Comm on [facility] blood pressure 2021-07-13 14:20:00 130 mm[Hg] Common [facility] - systolic [facility] blood pressure 2021-07-13 14:20:00 80 mm[Hg] Common [facility] - diastolic [facility] height 2021-05-14 11:20:00 60 [in_i] Common [facility] weight 2021-05-14 11:20:00 143 [lb_av] [facility] bmi 2021-05-14 11:20:00 27.92 kg/m2 [facility] oximetry 2021-05-14 11:20:00 94 % [facility] height 2021-04-08 13:00:00 60 [in_i] [facility] weight 2021-04-08 13:00:00 145.0 [lb_av] Common [facility] temperature 2021-04-08 13:00:00 96.4 [degF] [facility] bmi 2021-04-08 13:00:00 28.32 kg/m2 [facility] oximetry 2021-04-08 13:00:00 98 % [facility] respiratory rate 2021-04-08 13:00:00 16 /min Comm on [facility] blood pressure 2021-04-08 13:00:00 132 mm[Hg] [facility] - systolic [facility] blood pressure 2021-04-08 13:00:00 63 mm[Hg] Common [facility] - diastolic [facility] height 2020-11-13 12:00:00 60 [in_i] [facility] weight 2020-11-13 12:00:00 140 [lb_av] [facility] bmi 2020-11-13 12:00:00 27.34 kg/m2 [facility] Systolic (mm Hg) 2022-05-11 14:20:00 Wilfrid White Diastolic (mm Hg) 2022-05-11 14:20:00 [facility] orial [place] Heart Rate 2022-05-11 14:20:00 [facility] Height 2022-05-11 14:20:00 4 [ft_i] [facility] Weight 2022-05-11 14:20:00 [facility] BMI Calculated 2022-05-11 14:20:00 Memori al [facility] Systolic (mm Hg) 2022-03-30 16:28:00 Wilfrid rial [place] Diastolic (mm Hg) 2022-03-30 16:28:00 Mem orial [place] Heart Rate 2022-03-30 16:28:00 [facility] Height 2022-03-30 16:28:00 4 [ft_i] [facility] [place] Weight 2022-03-30 16:28:00 [facility] BMI Calculated 2022-03-30 16:28:00 Memori al [facility] Systolic (mm Hg) 2021-02-26 17:29:00 Wilfrid rial [place] Diastolic (mm Hg) 2021-02-26 17:29:00 Mem orial [place] Heart Rate 2021-02-26 17:29:00 [facility] [place] Respitory Rate 2021-02-26 17:29:00 Memori al [place] Height 2021-02-26 17:29:00 147.32 cm [facility] [place] Weight 2021-02-26 17:29:00 [facility] [place] BMI Calculated 2021-02-26 17:29:00 Memori al [place] Systolic (mm Hg) 2021-01-22 17:15:00 Wilfrid rial [place] Diastolic (mm Hg) 2021-01-22 17:15:00 Mem orial [facility] Heart Rate 2021-01-22 17:15:00 [facility] [place] Respitory Rate 2021-01-22 17:15:00 Memori al [place] Height 2021-01-22 17:15:00 149.86 cm [facility] [place] Weight 2021-01-22 17:15:00 [facility] [place] BMI Calculated 2021-01-22 17:15:00 Memori al [place] Heart Rate 2016-06-14 16:00:00 [facility] Respitory Rate 2016-06-14 16:00:00 Memori al [place] Temperature Oral (F) 2016-06-14 16:00:00 98.4 F [facility] [place] Systolic (mm Hg) 2016-06-14 16:00:00 Wilfrid rial [facility] Diastolic (mm Hg) 2016-06-14 16:00:00 Mem orial [place] Systolic (mm Hg) 2016-06-14 12:00:00 Wilfrid rial [facility] Diastolic (mm Hg) 2016-06-14 12:00:00 Mem orial [place] Respitory Rate 2016-06-14 12:00:00 Memori al [facility] Heart Rate 2016-06-14 12:00:00 [facility] [place] Temperature Oral (F) 2016-06-14 12:00:00 98.8 F [facility] [place] Systolic (mm Hg) 2016-06-14 07:48:00 Wilfrid rial [place] Diastolic (mm Hg) 2016-06-14 07:48:00 Mem orial [facility] Respitory Rate 2016-06-14 07:48:00 Memori al [place] Heart Rate 2016-06-14 07:48:00 [facility] [place] Temperature Oral (F) 2016-06-14 07:48:00 98.2 F [facility] [place] Height 2016-06-08 11:57:00 152.4 cm [facility] Weight 2016-06-08 11:57:00 [facility] [place] BMI Calculated 2016-06-08 11:57:00 Memori al [place] Respitory Rate 2016-06-03 23:00:00 Memori al [facility] Systolic (mm Hg) 2016-06-03 23:00:00 Wilfrid rial [facility] Diastolic (mm Hg) 2016-06-03 23:00:00 Mem orial [place] Systolic (mm Hg) 2016-06-03 22:00:00 Wilfrid rial [facility] Diastolic (mm Hg) 2016-06-03 22:00:00 Mem orial [facility] Systolic (mm Hg) 2016-06-03 21:30:00 Wilfrid rial [facility] Diastolic (mm Hg) 2016-06-03 21:30:00 Mem orial [facility] Respitory Rate 2016-06-03 18:00:00 Memori al [place] Respitory Rate 2016-06-03 17:45:00 Memori al [place] Temperature Oral (F) 2016-05-26 13:36:00 98.4 F [facility] [place] Heart Rate 2016-05-26 13:36:00 [facility] [place] Weight 2016-05-26 13:27:00 [facility] [place] BMI Calculated 2016-05-26 13:27:00 Memori al [place] Height 2016-05-26 13:27:00 152.4 cm [facility] Systolic (mm Hg) 2012-04-26 19:50:00 Wilfrid rial [place] Diastolic (mm Hg) 2012-04-26 19:50:00 Mem orial [place] Systolic (mm Hg) 2012-04-26 17:15:00 Wilfrid rial [facility] Diastolic (mm Hg) 2012-04-26 17:15:00 Mem orial [place] Temperature Oral (F) 2012-04-26 17:00:00 97.1 F [facility] [place] Diastolic (mm Hg) 2012-04-26 17:00:00 Mem orial [facility] Systolic (mm Hg) 2012-04-26 17:00:00 Wilfrid rial [facility] Respitory Rate 2012-04-26 17:00:00 Memori al [facility] Heart Rate 2012-04-26 17:00:00 [facility] [place] Respitory Rate 2012-04-26 13:00:00 Memori al [facility] Heart Rate 2012-04-26 13:00:00 [facility] [place] Temperature Oral (F) 2012-04-26 13:00:00 97.9 F [facility] [place] Respitory Rate 2012-04-26 09:16:00 Memori al [place] Heart Rate 2012-04-26 09:16:00 [facility] [place] Temperature Oral (F) 2012-04-26 09:16:00 98.3 F [facility] [place] Weight 2012-04-20 05:54:00 [facility] [place] Height 2012-04-19 01:59:00 152.4 cm [facility] Weight 2012-04-19 01:59:00 [facility] Christopher Procedures Procedure Date / Time Performed Performing Clinician [facility] e [facility] Car[facility] Christopher endarterectomy Placement of stent in [facility] ermann cardiac conduit Stent placement [facility] Christopher Bypass<sup>1</sup> [facility] Herm shannan Plan of Care Planned Activity Planned Date Details Comments Source Future Scheduled 2022-05-20 COVID-19 VACCINE (#1) [facility] Test 12:35:37 [code = COVID-19 VACCINE (#1)] Future Scheduled 2022-05-20 SHINGLES VACCINES (1 [facility] Test 12:35:37 of 2) [code = SHINGLES VACCINES (1 of 2)] Future Scheduled 2022-05-20 65+ PNEUMOCOCCAL [facility] Test 12:35:37 VACCINE (2 - PPSV23 if available, else PCV20) [code = 65+ PNEUMOCOCCAL VACCINE (2 - PPSV23 if available, else PCV20)] Future Scheduled 2022-05-20 INFLUENZA VACCINE [facility] 12:35:37 [code = INFLUENZA VACCINE] Future Scheduled 2022-03-24 COVID-19 VACCINE (#1) [facility] Test 14:10:25 [code = COVID-19 VACCINE (#1)] Future Scheduled 2022-03-24 SHINGLES VACCINES (1 [facility] Test 14:10:25 of 2) [code = SHINGLES VACCINES (1 of 2)] Future Scheduled 2022-03-24 65+ [facility] 14:10:25 VACCINE (2 - PPSV23 if available, else PCV20) [code = 65+ PNEUMOCOCCAL VACCINE (2 - PPSV23 if available, else PCV20)] Future Scheduled 2022-03-24 INFLUENZA VACCINE Method [facility] Hospital Test 14:10:25 [code = INFLUENZA VACCINE] Future Scheduled 2022-03-24 COVID-19 VACCINE (#1) [facility] Test 14:10:25 [code = COVID-19 VACCINE (#1)] Future Scheduled 2022-03-24 SHINGLES VACCINES (1 Met [facility] Hospital Test 14:10:25 of 2) [code = SHINGLES VACCINES (1 of 2)] Future Scheduled 2022-03-24 65+ PNEUMOCOCCAL Method[facility] Hospital Test 14:10:25 VACCINE (2 - PPSV23 if available, else PCV20) [code = 65+ PNEUMOCOCCAL VACCINE (2 - PPSV23 if available, else PCV20)] Future Scheduled 2022-03-24 INFLUENZA VACCINE Method [facility] Hospital Test 14:10:25 [code = INFLUENZA VACCINE] Future Scheduled 2022-01-28 COVID-19 VACCINE (#1) [facility] Test 04:00:32 [code = COVID-19 VACCINE (#1)] Future Scheduled 2022-01-28 SHINGLES VACCINES (1 [facility] Hospital Test 04:00:32 of 2) [code = SHINGLES VACCINES (1 of 2)] Future Scheduled 2022-01-28 65+ PNEUMOCOCCAL [facility] Test 04:00:32 VACCINE (2 - PPSV23 if available, else PCV20) [code = 65+ PNEUMOCOCCAL VACCINE (2 - PPSV23 if available, else PCV20)] Future Scheduled 2022-01-28 INFLUENZA VACCINE Method ist Hospital Test 04:00:32 [code = INFLUENZA VACCINE] Future Scheduled COVID-19 VACCINE (1) [facility] Hospital Test [code = COVID-19 VACCINE (1)] Future Scheduled SHINGLES VACCINES (#1) M [facility] Hospital Test [code = SHINGLES VACCINES (#1)] Future Scheduled 65+ PNEUMOCOCCAL [facility] Hospital Test VACCINE (2 of 2 - PPSV23) [code = 65+ PNEUMOCOCCAL VACCINE (2 of 2 - PPSV23)] Future Scheduled INFLUENZA VACCINE Method ist Hospital Test [code = INFLUENZA VACCINE] Encounters Start End Encounter Admission Attending Care Care Encounter Source Date/Time Date/Time Type Type Clinicians Facility Department ID 2022-06-16 Preadmit nullFlavo [id number] Memoria 17:48:18 [place] 02 mike White 2022-06-16 Outpatient Vidales, STLC [facility] [id number] Common 15:09:00 Patricia [id number] [facility] 2022-06-13 Outpatient Vidales, STLMLC [facility] [id number] Common 10:06:00 Patricia [id number] [facility] 2022-05-13 Outpatient Vidales, STLMLC [facility] [id number] Common 14:50:00 Patricia [id number] [facility] 2022-03-29 Outpatient Lois, STLC [facility] [id number] Common 10:34:00 Mari [id number] [facility] 2022-03-28 Outpatient Lois, STLMLC [facility] [id number] Common 09:26:00 Mari [id number] [facility] 2022-03-21 Outpatient Lois, STLC [facility] [id number] Common 13:59:00 Mari [id number] [facility] 2022-03-15 Outpatient Lois, STLC [facility] [id number] Common 11:08:01 Mari [id number] [facility] 2022-03-12 Preadmit nullFlavo [id number] Memoria 11:54:50 r [place] 02 l Christopher 2022-01-13 Outpatient Tripp, Na STLMLC STLMLC [id number] Common 07:29:00 [facility] 2022-01-12 Outpatient Tripp, Na STLMLC STLMLC [id number] Common 11:23:00 [facility] 2021-10-12 Outpatient Tripp, Na STLMLC STLMLC [id number] Common 10:47:00 [facility] 2021-10-08 Outpatient Tripp, Na STLMLC STLMLC [id number] Common 08:48:00 [facility] 2021-08-31 Outpatient Tripp, Na STLMLC STLMLC [id number] Common 12:15:00 [facility] 2021-07-08 Outpatient Tripp, Na STLMLC STLMLC [id number] Common 11:27:00 [facility] 2021-05-14 Outpatient Tripp, Na STLMLC STLMLC [id number] Common 11:14:01 [facility] 2021-05-13 Outpatient Tripp, Na STLMLC STLMLC [id number] Common 14:39:01 [facility] 2021-03-15 Outpatient Tripp, Na STLMLC STLMLC [id number] Common 15:34:00 [facility] 2021-03-10 Outpatient Tripp, Na STLMLC STLMLC [id number] Common 14:17:28 [id number] [facility] 2021-03-10 Outpatient Tripp, Na STLMLC STLMLC [id number] Common 13:55:49 [id number] [facility] 2021-03-10 Outpatient Tripp, Na STLMLC STLMLC [id number] Common 12:47:02 [id number] [facility] 2021-03-10 Outpatient Tripp, Na STLMLC STLMLC [id number] Common 12:35:11 [id number] [facility] 2021-03-10 Outpatient Tripp, Na STLMLC STLMLC [id number] 2 Common 12:34:42 [id number] [facility] 2021-03-10 Outpatient Tripp, Na STLMLC STLMLC [id number] 2 Common 12:22:40 [id number] [facility] 2021-03-10 Outpatient Tripp, Na STLMLC STLMLC [id number] Common 12:22:00 [id number] [facility] 2021-03-10 Outpatient Tripp, Na STLMLC STLMLC [id number] Common 12:19:24 [id number] [facility] 2021-03-10 Outpatient Tripp, Na STLMLC STLMLC [id number] Common 11:48:00 73559 [facility] 2021-03-10 Outpatient Tripp, Na STLMLC STLMLC [id number] Common 11:18:51 05724 [facility] 2021-03-10 Outpatient Tripp, Na STLMLC STLMLC [id number] Common 11:18:34 [id number] [facility] 2021-03-10 Outpatient Tripp, Na STLMLC STLMLC [id number] Common 11:16:12 [id number] [facility] 2021-03-10 Outpatient Tripp, Na STLMLC STLMLC [id number] 2 Common 11:09:52 68551 [facility] 2021-03-10 Outpatient Tripp, Na STLMLC STLMLC [id number] Common 11:09:27 [id number] [facility] 2021-03-10 Outpatient Tripp, Na STLMLC STLMLC [id number] Common 11:08:21 07738 [facility] 2021-03-10 Outpatient Tripp, Na STLMLC STLMLC [id number] Common 11:03:44 [id number] [facility] 2021-03-10 Outpatient Tripp, Na STLMLC STLMLC [id number] Common 11:02:04 [id number] [facility] 2021-03-10 Outpatient [place] Tripp STLMLC STLMLC [id number] Common 11:01:47 [id number] [facility] 2022-07-13 2022-07-13 Outpatient MHIE MHIE [id number] Memoria 09:00:00 09:00:00 05 mike LeosChristopher 2022-05-11 2022-05-12 Outpatient MHIE MNA [id number] Memoria 14:30:00 04:59:59 Neurology 04 mike Carmona Christopher 2022-05-11 2022-05-11 Outpatient Rebeca MHMISCHER MHMISCHER [id number] 09:30:00 23:59:59 Giuseppe Luciana Don 2022-05-11 2022-05-11 Outpatient MHIE MHIE [id number] Memoria 09:30:00 09:30:00 04 mike Christopher 2022-03-30 2022-03-31 Outpatient MHIE MNA [id number] Memoria 16:15:00 05:59:59 Neurology 03 mike White 2022-03-30 2022-03-30 Outpatient PRAVEEN JoseMISCHER MHMISCHER [id number] 10:15:00 23:59:59 Giuseppe Abril Don 2022-03-30 2022-03-30 Outpatient MHIE MHIE [id number] Memoria 10:15:00 10:15:00 03 [place] 2022-03-15 2022-03-15 (TEL) STLMLC STLMLC [id number] Co mmon 00:00:00 00:00:00 [facility] 2022-03-15 2022-03-15 (TEL) STLMLC STLMLC [id number] Co mmon 00:00:00 00:00:00 [facility] 2022-02-11 2022-02-11 (TEL) STLMLC STLMLC [id number] Co mmon 00:00:00 00:00:00 [facility] 2022-02-01 2022-02-01 (TEL) STLMLC STLMLC [id number] Co mmon 00:00:00 00:00:00 [facility] 2022-01-31 2022-01-31 (TEL) STLMLC STLMLC [id number] Co mmon 00:00:00 00:00:00 [facility] 2022-01-13 2022-01-13 OFFICE STLMLC STLMLC [id number] Co mmon 00:00:00 00:00:00 VISIT [facility] PT - CHI LEVEL 4 [facility] 2021-12-15 2021-12-15 (TEL) STLMLC STLMLC [id number] Co mmon 00:00:00 00:00:00 [facility] 2021-12-14 2021-12-14 OFFICE STLMLC STLMLC [id number] Co mmon 00:00:00 00:00:00 VISIT EST [facility] it PT LEVEL 3 [facility] 2021-12-10 2021-12-10 (TEL) STLMLC STLMLC [id number] Co mmon 00:00:00 00:00:00 [facility] 2021-11-08 2021-11-08 (TEL) STLMLC STLMLC [id number] Co mmon 00:00:00 00:00:00 [facility] 2021-10-14 2021-10-14 (TEL) STLMLC STLMLC [id number] Co mmon 00:00:00 00:00:00 [facility] 2021-10-12 2021-10-12 OFFICE STLMLC STLMLC [id number] Co mmon 00:00:00 00:00:00 VISIT [facility] PT - CHI LEVEL 4 [facility] 2021-09-29 2021-09-29 (TEL) STLMLC STLMLC [id number] Co mmon 00:00:00 00:00:00 [facility] 2021-08-06 2021-08-06 (TEL) STLMLC STLMLC [id number] Co mmon 00:00:00 00:00:00 [facility] 2021-07-30 2021-07-30 (TEL) STLMLC STLMLC [id number] Co mmon 00:00:00 00:00:00 Spirit - CHI [facility] 2021-07-13 2021-07-13 OFFICE STLMLC STLMLC [id number] Co mmon 00:00:00 00:00:00 VISIT [facility] PT - CHI LEVEL 4 [facility] 2021-05-14 2021-05-14 OFFICE STLMLC STLMLC [id number] Co mmon 00:00:00 00:00:00 VISIT EST Spir it PT LEVEL 3 - CHI [facility] 2021-05-13 2021-05-13 (TEL) STLMLC STLMLC [id number] Co mmon 00:00:00 00:00:00 [facility] 2021-04-27 2021-04-27 Ambulatory nullFlavo MNA [id number] Memoria 16:30:00 16:30:00 Pre-Reg r Neurology 02 l Mathew [place] 2021-04-27 2021-04-27 Ambulatory nullFlavo MNA [id number] Memoria 16:30:00 16:30:00 Pre-Reg r Neurology 02 l Mathew [place] 2021-04-27 2021-04-27 Outpatient MHIE MHIE [id number] Memoria 11:30:00 11:30:00 02 mike White 2021-04-27 2021-04-27 Outpatient PRAVEEN JoseMISCHER MHMISCHER [id number] 11:30:00 11:30:00 Giuseppe Lisa Ochoa 2021-04-09 2021-04-09 (TEL) STLMLC STLMLC [id number] Co mmon 00:00:00 00:00:00 [facility] 2021-04-08 2021-04-08 OFFICE STLMLC STLMLC [id number] Co mmon 00:00:00 00:00:00 VISIT [facility] ESTAB PT - CHI LEVEL 4 [facility] 2021-03-04 2021-03-04 (TEL) STLMLC STLMLC [id number] Co mmon 00:00:00 00:00:00 [facility] 2021-02-26 2021-02-27 Outpatient nullFlavo MNA [id number] Memoria 17:30:00 05:59:59 r Neurology 01 l Mathew White 2021-02-26 2021-02-27 Outpatient nullFlavo MNA [id number] Memoria 17:30:00 05:59:59 r Neurology 01 l Mathew White 2021-02-26 2021-02-26 Outpatient Palmirasoni, MHMISCHER MHMISCHER [id number] 11:30:00 23:59:59 Giuseppe Don 2021-02-26 2021-02-26 Outpatient MHIE MHIE [id number] Memoria 11:30:00 11:30:00 01 mike White 2021-02-23 2021-02-23 (TEL) STLMLC STLMLC [id number] Co mmon 00:00:00 00:00:00 [facility] 2021-02-03 2021-02-03 (TEL) STLMLC STLMLC [id number] Co mmon 00:00:00 00:00:00 [facility] 2021-01-22 2021-01-23 Outpatient nullFlavo MNA [id number] Memoria 17:30:00 05:59:59 r Neurology 00 l Mathew White 2021-01-22 2021-01-23 Outpatient nullFlavo MNA [id number] Memoria 17:30:00 05:59:59 r Neurology 00 mike White 2021-01-22 2021-01-22 Outpatient Rebeca, MHMISCHER MHMISCHER [id number] 11:30:00 23:59:59 Giuseppe Don 2021-01-22 2021-01-22 Outpatient MHIE MHIE [id number] Memoria 11:30:00 11:30:00 00 mike White 2021-01-22 2021-01-22 (TEL) STLMLC STLMLC [id number] Co mmon 00:00:00 00:00:00 [facility] 2021-01-15 2021-01-15 (TEL) STLMLC STLMLC [id number] Co mmon 00:00:00 00:00:00 [facility] 2021-01-13 2021-01-13 (TEL) STLMLC STLMLC [id number] Co mmon 00:00:00 00:00:00 [facility] 2021-01-05 2021-01-05 OL DIG E/M STLMLC STLMLC [id number] Common 00:00:00 00:00:00 SVC 21+ [facility] 2021-01-04 2021-01-04 (TEL) STLMLC STLMLC [id number] Co mmon 00:00:00 00:00:00 [facility] 2020-12-22 2020-12-22 (TEL) STLMLC STLMLC [id number] Co mmon 00:00:00 00:00:00 [facility] 2020-12-15 2020-12-15 (TEL) STLMLC STLMLC [id number] Co mmon 00:00:00 00:00:00 [facility] 2020-12-10 2020-12-10 (TEL) STLMLC STLMLC [id number] Co mmon 00:00:00 00:00:00 [facility] 2020-12-08 2020-12-08 (TEL) STLMLC STLMLC [id number] Co mmon 00:00:00 00:00:00 [facility] 2020-12-07 2020-12-07 (TEL) STLMLC STLMLC [id number] Co mmon 00:00:00 00:00:00 [facility] 2020-11-27 2020-11-27 (TEL) STLMLC STLMLC [id number] Co mmon 00:00:00 00:00:00 [facility] 2020-11-13 2020-11-13 OFFICE STLMLC STLMLC [id number] Co mmon 00:00:00 00:00:00 VISIT EST Spir it PT LEVEL 3 [facility] 2020-10-26 2020-10-26 (TEL) STLMLC STLMLC [id number] Co mmon 00:00:00 00:00:00 [facility] 2020-10-23 2020-10-23 Outpatient STLMLC STLMLC [id number] Common 00:00:00 00:00:00 [facility] 2020-10-08 2020-10-08 Outpatient STLMLC STLMLC [id number] Common 00:00:00 00:00:00 [facility] 2020-10-08 2020-10-08 Outpatient STLMLC STLMLC [id number] Common 00:00:00 00:00:00 [facility] 2020-09-23 2020-09-23 Outpatient STLMLC STLMLC [id number] Common 00:00:00 00:00:00 [facility] 2020-09-16 2020-09-16 Outpatient STLMLC STLMLC [id number] Common 00:00:00 00:00:00 [facility] 2020-07-24 2020-07-24 Outpatient STLMLC STLMLC [id number] Common 00:00:00 00:00:00 [facility] 2020-06-22 2020-06-22 Outpatient STLMLC STLMLC [id number] Common 00:00:00 00:00:00 [facility] 2020-05-28 2020-05-28 Outpatient STLMLC STLMLC [id number] Common 00:00:00 00:00:00 [facility] 2020-05-25 2020-05-25 Outpatient STLMLC STLMLC [id number] Common 00:00:00 00:00:00 [facility] 2020-05-15 2020-05-15 Outpatient STLMLC STLMLC [id number] Common 00:00:00 00:00:00 [facility] 2020-05-15 2020-05-15 Outpatient STLMLC STLMLC [id number] Common 00:00:00 00:00:00 [facility] 2020-05-01 2020-05-01 Outpatient STLMLC STLMLC [id number] Common 00:00:00 00:00:00 [facility] 2020-04-13 2020-04-13 Outpatient STLMLC STLMLC [id number] Common 00:00:00 00:00:00 [facility] 2020-04-07 2020-04-07 Outpatient STLMLC STLMLC [id number] Common 00:00:00 00:00:00 [facility] 2020-03-13 2020-03-13 Outpatient STLMLC STLMLC [id number] Common 00:00:00 00:00:00 [facility] 2020-03-05 2020-03-05 Outpatient STLMLC STLMLC [id number] Common 00:00:00 00:00:00 [facility] 2020-03-05 2020-03-05 Outpatient STLMLC STLMLC [id number] Common 00:00:00 00:00:00 [facility] 2020-02-28 2020-02-28 Outpatient STLMLC STLMLC [id number] Common 00:00:00 00:00:00 [facility] 2020-02-28 2020-02-28 Outpatient STLMLC STLMLC [id number] Common 00:00:00 00:00:00 [facility] 2020-02-27 2020-02-27 Outpatient STLMLC STLMLC [id number] Common 00:00:00 00:00:00 [facility] 2020-02-20 2020-02-20 Outpatient STLMLC STLMLC [id number] Common 00:00:00 00:00:00 [facility] 2019-11-06 2019-11-06 Outpatient STLMLC STLMLC [id number] Common 00:00:00 00:00:00 [facility] 2019-08-28 2019-08-28 [facility] [id number] Common 09:42:00 09:42:[address] [facility] 2019-08-05 2019-08-05 [facility] [id number] Common 11:00:00 11:00:[address] [facility] 2019-07-29 2019-07-29 [facility] [id number] Common 11:43:00 11:43:[address] [facility] 2019-06-17 2019-06-17 [facility] [id number] Common 10:40:00 10:40:00 t [facility] [address] [facility] 2019-06-12 2019-06-12 [facility] [id number] Common 13:20:00 13:20:00 t [facility] [address] [facility] 2019-06-11 2019-06-11 [facility] [id number] Common 10:41:00 10:41:[address] [facility] 2019-06-05 2019-06-05 [facility] [id number] Common 09:20:00 09:20:[address] [facility] 2019-06-03 2019-06-03 [facility] [id number] Common 09:27:00 09:27:[address] [facility] 2019-04-09 2019-04-09 [facility] [id number] Common 08:20:00 08:20:[address] [facility] 2019-04-02 2019-04-02 [facility] [id number] Common 07:56:00 07:56:[address] [facility] 2019-03-12 2019-03-12 [facility] [id number] Common 10:53:00 10:53:[address] [facility] 2019-03-04 2019-03-04 [facility] [id number] Common 15:25:00 15:25:00 t Specialty/U Sp sherly Specialty rology - [facility] /[facility] Clinic [facility] 2019-03-04 2019-03-04 [facility] [id number] Common 11:34:00 11:34:[address] Family - [facility] 2019-02-01 2019-02-01 [facility] [id number] Common 14:51:00 14:51:[address] [facility] 2019-01-07 2019-01-07 [facility] [id number] Common 14:40:00 14:40:[address] [facility] 2018-12-18 2018-12-18 [facility] [id number] Common 11:11:00 11:11:00 [facility] 2018-11-30 2018-11-30 [facility] [id number] Common 10:10:00 10:10:[address] [facility] 2018-10-14 2018-10-14 [facility] [id number] Common 20:24:00 20:24:[address] [facility] 2018-10-08 2018-10-08 [facility] [id number] Common 13:20:00 13:20:[address] [facility] 2018-09-17 2018-09-17 [facility] [id number] Common 12:25:00 12:25:[address] [facility] 2018-09-06 2018-09-06 [facility] [id number] Common 14:00:00 14:00:[address] [facility] 2018-06-07 2018-06-07 [facility] [id number] Common 09:40:00 09:40:[address] [facility] 2018-05-04 2018-05-04 [facility] [id number] Common 16:39:00 16:39:[address] [facility] 2018-04-11 2018-04-11 [facility] [id number] Common 11:39:00 11:39:[address] [facility] 2018-03-14 2018-03-14 [facility] [id number] Common 11:56:00 11:56:[address] [facility] 2018-03-09 2018-03-09 [facility] [id number] Common 14:57:00 14:57:[address] [facility] 2018-03-05 2018-03-05 [facility] [id number] Common 09:30:00 09:30:[address] [facility] 2018-01-08 2018-01-08 [facility] [id number] Common 10:15:00 10:15:[address] [facility] 2017-10-11 2017-10-11 [facility] [id number] Common 15:45:00 15:45:[address] [facility] 2017-08-21 2017-08-21 [facility] [id number] Common 15:00:00 15:00:[address] [facility] 2017-06-20 2017-06-20 [facility] [id number] Common 16:33:00 16:33:[address] [facility] 2017-06-15 2017-06-15 [facility] [id number] Common 10:42:00 10:42:[address] [facility] 2017-06-02 2017-06-02 [facility] [id number] Common 12:11:00 12:11:[address] [facility] 2017-05-23 2017-05-23 [facility] [id number] Common 20:14:00 20:14:[address] [facility] 2017-05-22 2017-05-22 [facility] [id number] Common 14:00:00 14:00:[address] [employer] [address] [facility] 2016-06-08 2016-06-14 Inpatient [facility]Fl[facility] [id number] Memoria 14:04:00 18:19:00 r Christopher 05 [facility] 2016-06-08 2016-06-14 Inpatient [facility]Flavo [facility] [id number] Memoria 14:04:00 18:19:00 r Christopher 05 [facility] 2016-06-08 2016-06-14 Outpatient BRAYDEN Burch MHSE [id number] 09:04:00 13:19:00 Luis Galindo Guru 2016-06-03 2016-06-03 Day [facility]Flavo [facility] [id number] Memoria 13:42:00 23:11:00 Surgery r Christopher 04 [facility] 2016-06-03 2016-06-03 Day nullFlavo [facility] [id number] Memoria 13:42:00 23:11:00 Surgery r Christopher 04 [facility] 2016-06-03 2016-06-03 Outpatient BRAYDEN Burch SE [id number] 08:42:00 18:11:00 Luis Luciana Garvey 2012-04-19 2012-04-26 Inpatient nullFlavo [id number] Memoria 00:12:00 15:30:00 r [facility] [place] mike White 2012-04-19 2012-04-26 Inpatient nullFlavo MH [id number] Memoria 00:12:00 15:30:00 r [facility] [place] mike White 2012-04-18 2012-04-18 [place] [id number] Memoria 13:01:00 13:01:00 r [facility] [place] 00 mike White 2012-04-18 2012-04-18 [place] [id number] Memoria 13:01:00 13:01:00 r [facility] [place] mike White Results Test Description Test Time Test Comments Results Result Comments Source CHEM PANEL 2016-06-13 11:25:00 Test Item Value Reference Range Interpretation Comme nts Total Protein (test code = Total Protein) 6.2 6.4-8.4 [facility]2017-05-01 11:25:00 Test Item Value Reference Range Interpretation Comments Bili Total (test code = Bili Total) 0.5 0.2-1.3 [facility]2017-05-01 11:25:00 Test Item Value Reference Range Interpretation Comments CO2 (test code = CO2) 30 24-32 [facility]2017-05-01 11:25:00 Test Item Value Reference Range Interpretation Comments ALT (test code = ALT) 18 See_Comment [Auto mated message] The system which ge nerated this result transmit norris reference range : <=65. The reference range was not used to interpr et this result as darshana l/abnormal. [facility]2017-05-01 11:25:00 Test Item Value Reference Range Interpretation Comments Albumin Lvl (test code = Albumin Lvl) 2.9 3.5-5.0 [facility]2017-05-01 11:25:00 Test Item Value Reference Range Interpretation Comments AST (test code = AST) 15 See_Comment [Auto mated message] The system which ge nerated this result transmit norris reference range : <=37. The reference range was not used to interpr et this result as darshana l/abnormal. [facility]2017-05-01 11:25:00 Test Item Value Reference Range Interpretation Comments Alk Phos (test code = Alk Phos) 71 39-136 [facility]2017-05-01 11:25:00 Test Item Value Reference Range Interpretation Comments Chloride Lvl (test code = Chloride Lvl) 100 95-109 [facility]2017-05-01 11:25:00 Test Item Value Reference Range Interpretation Comments Sodium Lvl (test code = Sodium Lvl) 140 135-145 [facility]2017-05-01 11:25:00 Test Item Value Reference Range Interpretation Comments Creatinine Lvl (test code = Creatinine 0.64 0.50-1.40 Lvl) [facility]2017-05-01 11:25:00 Test Item Value Reference Range Interpretation Comments BUN (test code = BUN) 23 7-22 [facility]2017-05-01 11:25:00 Test Item Value Reference Range Interpretation Comments Potassium Lvl (test code = Potassium 3.5 3.5-5.1 Lvl) [facility]2017-05-01 11:25:00 Test Item Value Reference Range Interpretation Comments Glucose Lvl (test code = Glucose Lvl) 134 70-99 [facility]2017-05-01 11:25:00 Test Item Value Reference Range Interpretation Comments A/G Ratio (test code = A/G Ratio) 0.9 0.7-1.6 [facility]2017-05-01 11:25:00 Test Item Value Reference Range Interpretation Comments Globulin (test code = Globulin) 3.3 2.7-4.2 [facility]2017-05-01 11:25:00 Test Item Value Reference Range Interpretation Comments B/C Ratio (test code = B/C Ratio) 36 6-25 [facility]2017-05-01 11:25:00 Test Item Value Reference Range Interpretation Comments AGAP (test code = AGAP) 13.5 10.0-20.0 [facility] [facility]ymbhkgLUUSJPXHVS9546-00-96 11:25:00 Test Item Value Reference Range Interpretation Comments MCHC (test code = MCHC) 34.1 32.0-36.0 [facility] CampusDciqyzxWKVQBEVKUE3271-71-95 11:25:00 Test Item Value Reference Range Interpretation Comments MPV (test code = MPV) 9.4 7.4-10.4 [facility] CampusJdjdwejUOUVQJXMIU1198-13-81 11:25:00 Test Item Value Reference Range Interpretation Comments RDW (test code = RDW) 17.1 11.5-14.5 [facility] CampusNfzcgjdPXTQAGFTPY2193-55-82 11:25:00 Test Item Value Reference Range Interpretation Comments MCH (test code = MCH) 26.8 pg 27.0-31.0 [facility] CampusTujmmxkPGGSHQNESP1395-61-87 11:25:00 Test Item Value Reference Range Interpretation Comments Platelet (test code = Platelet) 198 133-450 [facility] CampusDqeolncTEOVLMEKRR9467-60-51 11:25:00 Test Item Value Reference Range Interpretation Comments WBC (test code = WBC) 9.9 3.7-10.4 [facility] CampusPvwspvjLOUSXCKRQA7742-97-10 11:25:00 Test Item Value Reference Range Interpretation Comments Hgb (test code = Hgb) 8.2 12.0-16.0 [facility] CampusQfyfxrwNUFWAUHEMK0927-73-93 11:25:00 Test Item Value Reference Range Interpretation Comments RBC (test code = RBC) 3.05 4.20-5.40 [facility] CampusYisllsnIOSWTARGYU7167-91-07 11:25:00 Test Item Value Reference Range Interpretation Comments MCV (test code = MCV) 78.5 80.0-98.0 [facility] CampusVaswuamCVTMWTXANO2185-28-32 11:25:00 Test Item Value Reference Range Interpretation Comments Hct (test code = Hct) 23.9 36.0-48.0 [facility] CampusUuccqllZEFCHZSLKF9065-25-40 11:25:00 Test Item Value Reference Range Interpretation Comments Microcyte (test code = 1+ *ABN*(06/13/16 6:25 Microcyte) AM) [facility] CampusTegsufwLHNGBWUCUJ8604-76-25 11:25:00 Test Item Value Reference Range Interpretation Comments Basophils # (test code 0.1 See_Comment [Aut omated message] The = Basophils #) system which generated this result tra nsmitted reference range : <=0.2. The reference r lina was not used to int erpret this result as normal/abnormal . [facility] CampusCrzlexkTBOTBTJNRR2307-79-83 11:25:00 Test Item Value Reference Range Interpretation Comments Eosinophils # (test code 0.2 See_Comment [A utomated message] The = Eosinophils #) system whic h generated this result tra nsmitted reference range : <=0.5. The reference r lina was not used to int erpret this result as normal/abnormal . [facility] CampusNquzgsnMHEUDNFNWQ2910-83-30 11:25:00 Test Item Value Reference Range Interpretation Comments Monocytes # (test code 0.7 See_Comment [Aut omated message] The = Monocytes #) system which generated this result tra nsmitted reference range : <=0.8. The reference r lina was not used to int erpret this result as normal/abnormal . [facility] CampusYcgpmmtUJECXKPXKG2852-61-66 11:25:00 Test Item Value Reference Range Interpretation Comments Lymphocytes (test code = Lymphocytes) 17.6 20.0-40.0 [facility] CampusLwwtdgfOYPQHONFRO4578-45-96 11:25:00 Test Item Value Reference Range Interpretation Comments Segs (test code = Segs) 73.1 45.0-75.0 [facility] CampusRmzvlypDYLGCCZFAZ5137-08-76 11:25:00 Test Item Value Reference Range Interpretation Comments Basophils (test code = 0.5 See_Comment [Aut omated message] The Basophils) system which ge nerated this result tra nsmitted reference range : <=1.0. The reference r lina was not used to int erpret this result as normal/abnormal . [facility] CampusBsayxdvWHBGANRBWV5346-49-39 11:25:00 Test Item Value Reference Range Interpretation Comments Eosinophils (test code = 2.2 See_Comment [A utomated message] The Eosinophils) system which ge nerated this result tra nsmitted reference range : <=4.0. The reference r lina was not used to int erpret this result as normal/abnormal . [facility] CampusNrermrmOTOAFOVTDY7827-48-05 11:25:00 Test Item Value Reference Range Interpretation Comments Monocytes (test code = Monocytes) 6.6 2.0-12.0 [facility] CampusDtddjupODADBEYUPP3157-75-48 11:25:00 Test Item Value Reference Range Interpretation Comments Lymphocytes # (test code = Lymphocytes 1.7 1.0-5.5 #) [facility] CampusGurlxzoZEVPVLAJIO6609-02-13 11:25:00 Test Item Value Reference Range Interpretation Comments Segs-Bands # (test code = Segs-Bands #) 7.2 1.5-8.1 [facility]2017-05-01 11:25:00 Test Item Value Reference Range Interpretation Comments eGFR (test code = eGFR) 86 [facility]2017-05-01 11:25:00 Test Item Value Reference Range Interpretation Comments Calcium Lvl (test code = Calcium Lvl) 8.9 8.5-10.5 [facility]2017-05-01 11:25:00 Test Item Value Reference Range Interpretation Comments Total Protein (test code = Total 6.2 6.4-8.4 Protein) [facility]2017-05-01 11:25:00 Test Item Value Reference Range Interpretation Comments Bili Total (test code = Bili Total) 0.5 0.2-1.3 [facility]2017-05-01 11:25:00 Test Item Value Reference Range Interpretation Comments CO2 (test code = CO2) 30 24-32 [place] 253127-05-01 11:25:00 Test Item Value Reference Range Interpretation Comments ALT (test code = ALT) 18 See_Comment [Auto mated message] The system which ge nerated this result transmit norris reference range : <=65. The reference range was not used to interpr et this result as darshana l/abnormal. [facility]2017-05-01 11:25:00 Test Item Value Reference Range Interpretation Comments Albumin Lvl (test code = Albumin Lvl) 2.9 3.5-5.0 [facility]2017-05-01 11:25:00 Test Item Value Reference Range Interpretation Comments AST (test code = AST) 15 See_Comment [Auto mated message] The system which ge nerated this result transmit norris reference range : <=37. The reference range was not used to interpr et this result as darshana l/abnormal. [facility]2017-05-01 11:25:00 Test Item Value Reference Range Interpretation Comments Alk Phos (test code = Alk Phos) 71 39-136 [facility]2017-05-01 11:25:00 Test Item Value Reference Range Interpretation Comments Chloride Lvl (test code = Chloride Lvl) 100 95-109 [facility]2017-05-01 11:25:00 Test Item Value Reference Range Interpretation Comments Sodium Lvl (test code = Sodium Lvl) 140 135-145 [facility]2017-05-01 11:25:00 Test Item Value Reference Range Interpretation Comments Creatinine Lvl (test code = Creatinine 0.64 0.50-1.40 Lvl) [facility]2017-05-01 11:25:00 Test Item Value Reference Range Interpretation Comments BUN (test code = BUN) 23 7-22 [facility]2017-05-01 11:25:00 Test Item Value Reference Range Interpretation Comments Potassium Lvl (test code = Potassium 3.5 3.5-5.1 Lvl) [facility]2017-05-01 11:25:00 Test Item Value Reference Range Interpretation Comments Glucose Lvl (test code = Glucose Lvl) 134 70-99 [facility]2017-05-01 11:25:00 Test Item Value Reference Range Interpretation Comments A/G Ratio (test code = A/G Ratio) 0.9 0.7-1.6 [facility]2017-05-01 11:25:00 Test Item Value Reference Range Interpretation Comments Globulin (test code = Globulin) 3.3 2.7-4.2 [facility]2017-05-01 11:25:00 Test Item Value Reference Range Interpretation Comments B/C Ratio (test code = B/C Ratio) 36 6-25 [facility]2017-05-01 11:25:00 Test Item Value Reference Range Interpretation Comments AGAP (test code = AGAP) 13.5 10.0-20.0 [facility] CampusOuchquxVKMJUWZXEP6634-06-93 11:25:00 Test Item Value Reference Range Interpretation Comments MCHC (test code = MCHC) 34.1 32.0-36.0 [facility] CampusGlxkfamHFSQEJZIUL7903-48-22 11:25:00 Test Item Value Reference Range Interpretation Comments MPV (test code = MPV) 9.4 7.4-10.4 [facility] CampusZhbzpntTXAZBUJIBC7600-61-58 11:25:00 Test Item Value Reference Range Interpretation Comments RDW (test code = RDW) 17.1 11.5-14.5 [facility] CampusGolynnmQHATXGWXVV1270-83-75 11:25:00 Test Item Value Reference Range Interpretation Comments MCH (test code = MCH) 26.8 pg 27.0-31.0 [facility] CampusKugqycuJBLRMSTEAS6389-98-55 11:25:00 Test Item Value Reference Range Interpretation Comments Platelet (test code = Platelet) 198 133-450 [facility] CampusEfclosnTOUYLSWTRK1283-73-30 11:25:00 Test Item Value Reference Range Interpretation Comments WBC (test code = WBC) 9.9 3.7-10.4 [facility] CampusVmppydgPNHWWJEGPK0380-87-31 11:25:00 Test Item Value Reference Range Interpretation Comments Hgb (test code = Hgb) 8.2 12.0-16.0 [facility] CampusBjrkymkIYLQVNWPCE1045-44-00 11:25:00 Test Item Value Reference Range Interpretation Comments RBC (test code = RBC) 3.05 4.20-5.40 [facility] CampusFwvwgweZDLTVCQYGW8227-08-46 11:25:00 Test Item Value Reference Range Interpretation Comments MCV (test code = MCV) 78.5 80.0-98.0 [facility] CampusRzyrjbzXOAORPWWCJ3565-10-72 11:25:00 Test Item Value Reference Range Interpretation Comments Hct (test code = Hct) 23.9 36.0-48.0 [facility] CampusMmzemxxAYPUVLQKDY0193-48-84 11:25:00 Test Item Value Reference Range Interpretation Comments Microcyte (test code = 1+ *ABN*(06/13/16 6:25 Microcyte) AM) [facility] CampusDrsjtbcJEEDDBXJSJ8118-83-93 11:25:00 Test Item Value Reference Range Interpretation Comments Basophils # (test code 0.1 See_Comment [Aut omated message] The = Basophils #) system which generated this result tra nsmitted reference range : <=0.2. The reference r lina was not used to int erpret this result as normal/abnormal . [facility] CampusMlkbkwkGNBFFPIWSX1061-40-09 11:25:00 Test Item Value Reference Range Interpretation Comments Eosinophils # (test code 0.2 See_Comment [A utomated message] The = Eosinophils #) system whic h generated this result tra nsmitted reference range : <=0.5. The reference r lina was not used to int erpret this result as normal/abnormal . [facility] CampusBswxbuhJJZYDDAHTF5696-65-09 11:25:00 Test Item Value Reference Range Interpretation Comments Monocytes # (test code 0.7 See_Comment [Aut omated message] The = Monocytes #) system which generated this result tra nsmitted reference range : <=0.8. The reference r lina was not used to int erpret this result as normal/abnormal . [facility] CampusMgusuzkFFOSIKXATF9680-27-64 11:25:00 Test Item Value Reference Range Interpretation Comments Lymphocytes (test code = Lymphocytes) 17.6 20.0-40.0 [facility] CampusQmwcmcjTMSFZQTFEV7146-69-87 11:25:00 Test Item Value Reference Range Interpretation Comments Segs (test code = Segs) 73.1 45.0-75.0 [facility] CampusRrnzsyjCLDTBEETWR4263-03-23 11:25:00 Test Item Value Reference Range Interpretation Comments Basophils (test code = 0.5 See_Comment [Aut omated message] The Basophils) system which ge nerated this result tra nsmitted reference range : <=1.0. The reference r lina was not used to int erpret this result as normal/abnormal . [facility] CampusZpjxjhwTXVSVWPXMR1037-04-40 11:25:00 Test Item Value Reference Range Interpretation Comments Eosinophils (test code = 2.2 See_Comment [A utomated message] The Eosinophils) system which ge nerated this result tra nsmitted reference range : <=4.0. The reference r lina was not used to int erpret this result as normal/abnormal . [facility] CampusCinnmwdTUOTJJLNQM1207-24-17 11:25:00 Test Item Value Reference Range Interpretation Comments Monocytes (test code = Monocytes) 6.6 2.0-12.0 [facility] CampusLcjhirnTXPCFAWSZJ7806-27-20 11:25:00 Test Item Value Reference Range Interpretation Comments Lymphocytes # (test code = Lymphocytes 1.7 1.0-5.5 #) [facility] CampusWeyiqwxURBGNJMGDD4014-72-67 11:25:00 Test Item Value Reference Range Interpretation Comments Segs-Bands # (test code = Segs-Bands #) 7.2 1.5-8.1 [facility]2017-05-01 11:25:00 Test Item Value Reference Range Interpretation Comments eGFR (test code = eGFR) 86 [facility]2017-05-01 11:25:00 Test Item Value Reference Range Interpretation Comments Calcium Lvl (test code = Calcium Lvl) 8.9 8.5-10.5 [facility]2017-05-01 11:25:00 Test Item Value Reference Range Interpretation Comments Total Protein (test code = Total 6.2 6.4-8.4 Protein) [facility]2017-05-01 11:25:00 Test Item Value Reference Range Interpretation Comments Bili Total (test code = Bili Total) 0.5 0.2-1.3 [facility]2017-05-01 11:25:00 Test Item Value Reference Range Interpretation Comments CO2 (test code = CO2) 30 24-32 [facility]2017-05-01 11:25:00 Test Item Value Reference Range Interpretation Comments ALT (test code = ALT) 18 See_Comment [Auto mated message] The system which ge nerated this result transmit norris reference range : <=65. The reference range was not used to interpr et this result as darshana l/abnormal. [facility]2017-05-01 11:25:00 Test Item Value Reference Range Interpretation Comments Albumin Lvl (test code = Albumin Lvl) 2.9 3.5-5.0 [facility]2017-05-01 11:25:00 Test Item Value Reference Range Interpretation Comments AST (test code = AST) 15 See_Comment [Auto mated message] The system which ge nerated this result transmit norris reference range : <=37. The reference range was not used to interpr et this result as darshana l/abnormal. [facility]2017-05-01 11:25:00 Test Item Value Reference Range Interpretation Comments Alk Phos (test code = Alk Phos) 71 39-136 [facility]2017-05-01 11:25:00 Test Item Value Reference Range Interpretation Comments Chloride Lvl (test code = Chloride Lvl) 100 95-109 [facility]2017-05-01 11:25:00 Test Item Value Reference Range Interpretation Comments Sodium Lvl (test code = Sodium Lvl) 140 135-145 [facility]2017-05-01 11:25:00 Test Item Value Reference Range Interpretation Comments Creatinine Lvl (test code = Creatinine 0.64 0.50-1.40 Lvl) [facility]2017-05-01 11:25:00 Test Item Value Reference Range Interpretation Comments BUN (test code = BUN) 23 7-22 [facility]2017-05-01 11:25:00 Test Item Value Reference Range Interpretation Comments Potassium Lvl (test code = Potassium 3.5 3.5-5.1 Lvl) [facility]2017-05-01 11:25:00 Test Item Value Reference Range Interpretation Comments Glucose Lvl (test code = Glucose Lvl) 134 70-99 [facility]2017-05-01 11:25:00 Test Item Value Reference Range Interpretation Comments A/G Ratio (test code = A/G Ratio) 0.9 0.7-1.6 [facility]2017-05-01 11:25:00 Test Item Value Reference Range Interpretation Comments Globulin (test code = Globulin) 3.3 2.7-4.2 [facility]2017-05-01 11:25:00 Test Item Value Reference Range Interpretation Comments B/C Ratio (test code = B/C Ratio) 36 6-25 [facility]2017-05-01 11:25:00 Test Item Value Reference Range Interpretation Comments AGAP (test code = AGAP) 13.5 10.0-20.0 [facility] CampusEvgjxnrGPUAVMAAOX7838-70-55 11:25:00 Test Item Value Reference Range Interpretation Comments MCHC (test code = MCHC) 34.1 32.0-36.0 [facility] CampusLkqjawjLSTDZGNVLB0419-50-39 11:25:00 Test Item Value Reference Range Interpretation Comments MPV (test code = MPV) 9.4 7.4-10.4 [facility] CampusRmzfidmTIYZZAVRCU6985-04-02 11:25:00 Test Item Value Reference Range Interpretation Comments RDW (test code = RDW) 17.1 11.5-14.5 [facility] CampusHpiotwtLATYRVQDNZ1904-70-90 11:25:00 Test Item Value Reference Range Interpretation Comments MCH (test code = MCH) 26.8 pg 27.0-31.0 [facility] CampusXbmplfmVNRTUYMDWL7365-18-25 11:25:00 Test Item Value Reference Range Interpretation Comments Platelet (test code = Platelet) 198 133-450 [facility] CampusLfbbpthKIEFAQRBBO4129-86-46 11:25:00 Test Item Value Reference Range Interpretation Comments WBC (test code = WBC) 9.9 3.7-10.4 [facility] CampusMhvltujDNMXOUODBJ8404-25-43 11:25:00 Test Item Value Reference Range Interpretation Comments Hgb (test code = Hgb) 8.2 12.0-16.0 [facility] CampusSqpgnunRELQXPHCCZ9026-64-21 11:25:00 Test Item Value Reference Range Interpretation Comments RBC (test code = RBC) 3.05 4.20-5.40 [facility] CampusBunrfugIHXLMNMBAO7230-70-41 11:25:00 Test Item Value Reference Range Interpretation Comments MCV (test code = MCV) 78.5 80.0-98.0 [facility] CampusNfijkgkAXYKTGDHBT0238-11-00 11:25:00 Test Item Value Reference Range Interpretation Comments Hct (test code = Hct) 23.9 36.0-48.0 [facility] CampusAappnonQUGNEVKPCK8213-73-73 11:25:00 Test Item Value Reference Range Interpretation Comments Microcyte (test code = 1+ *ABN*(06/13/16 6:25 Microcyte) AM) [facility] CampusNjykbdvIXLGOBLMZN2375-24-07 11:25:00 Test Item Value Reference Range Interpretation Comments Basophils # (test code 0.1 See_Comment [Aut omated message] The = Basophils #) system which generated this result tra nsmitted reference range : <=0.2. The reference r lina was not used to int erpret this result as normal/abnormal . [facility] CampusVumyurtLJWLFDXHHF6875-08-22 11:25:00 Test Item Value Reference Range Interpretation Comments Eosinophils # (test code 0.2 See_Comment [A utomated message] The = Eosinophils #) system whic h generated this result tra nsmitted reference range : <=0.5. The reference r lina was not used to int erpret this result as normal/abnormal . [facility] CampusBnrgjznZMXZTLQYPD1079-79-58 11:25:00 Test Item Value Reference Range Interpretation Comments Monocytes # (test code 0.7 See_Comment [Aut omated message] The = Monocytes #) system which generated this result tra nsmitted reference range : <=0.8. The reference r lina was not used to int erpret this result as normal/abnormal . [facility] CampusBgxadhsYDNWJYPZTS7365-58-27 11:25:00 Test Item Value Reference Range Interpretation Comments Lymphocytes (test code = Lymphocytes) 17.6 20.0-40.0 [facility] CampusClqxawoRSBGHDMSYV9226-47-58 11:25:00 Test Item Value Reference Range Interpretation Comments Segs (test code = Segs) 73.1 45.0-75.0 [facility] CampusAkbodxdEAZOSNTQDZ5019-79-42 11:25:00 Test Item Value Reference Range Interpretation Comments Basophils (test code = 0.5 See_Comment [Aut omated message] The Basophils) system which ge nerated this result tra nsmitted reference range : <=1.0. The reference r lina was not used to int erpret this result as normal/abnormal . [facility] CampusLpokhmbYTMFKDKAUO4402-89-47 11:25:00 Test Item Value Reference Range Interpretation Comments Eosinophils (test code = 2.2 See_Comment [A utomated message] The Eosinophils) system which ge nerated this result tra nsmitted reference range : <=4.0. The reference r lina was not used to int erpret this result as normal/abnormal . [facility] CampusItgycooOZSGQAZBCY1691-96-93 11:25:00 Test Item Value Reference Range Interpretation Comments Monocytes (test code = Monocytes) 6.6 2.0-12.0 [facility] CampusWjhypkxRILINEZOIN8143-92-81 11:25:00 Test Item Value Reference Range Interpretation Comments Lymphocytes # (test code = Lymphocytes 1.7 1.0-5.5 #) [facility] CampusBoacqhjQVUCHVSOYK6822-33-96 11:25:00 Test Item Value Reference Range Interpretation Comments Segs-Bands # (test code = Segs-Bands #) 7.2 1.5-8.1 [place] 253127-05-01 11:25:00 Test Item Value Reference Range Interpretation Comments eGFR (test code = eGFR) 86 [facility]2017-05-01 11:25:00 Test Item Value Reference Range Interpretation Comments Calcium Lvl (test code = Calcium Lvl) 8.9 8.5-10.5 [facility]2017-05-01 11:25:00 Test Item Value Reference Range Interpretation Comments Total Protein (test code = Total 6.2 6.4-8.4 Protein) [facility]2017-05-01 11:25:00 Test Item Value Reference Range Interpretation Comments Bili Total (test code = Bili Total) 0.5 0.2-1.3 [facility]2017-05-01 11:25:00 Test Item Value Reference Range Interpretation Comments CO2 (test code = CO2) 30 24-32 [facility]2017-05-01 11:25:00 Test Item Value Reference Range Interpretation Comments ALT (test code = ALT) 18 See_Comment [Auto mated message] The system which ge nerated this result transmit norris reference range : <=65. The reference range was not used to interpr et this result as darshana l/abnormal. [facility]2017-05-01 11:25:00 Test Item Value Reference Range Interpretation Comments Albumin Lvl (test code = Albumin Lvl) 2.9 3.5-5.0 [facility]2017-05-01 11:25:00 Test Item Value Reference Range Interpretation Comments AST (test code = AST) 15 See_Comment [Auto mated message] The system which ge nerated this result transmit norris reference range : <=37. The reference range was not used to interpr et this result as darshana l/abnormal. [place] [address]-05-01 11:25:00 Test Item Value Reference Range Interpretation Comments Alk Phos (test code = Alk Phos) 71 39-136 [facility]2017-05-01 11:25:00 Test Item Value Reference Range Interpretation Comments Chloride Lvl (test code = Chloride Lvl) 100 95-109 [facility]2017-05-01 11:25:00 Test Item Value Reference Range Interpretation Comments Sodium Lvl (test code = Sodium Lvl) 140 135-145 [facility]2017-05-01 11:25:00 Test Item Value Reference Range Interpretation Comments Creatinine Lvl (test code = Creatinine 0.64 0.50-1.40 Lvl) [facility]2017-05-01 11:25:00 Test Item Value Reference Range Interpretation Comments BUN (test code = BUN) 23 7-22 [facility]2017-05-01 11:25:00 Test Item Value Reference Range Interpretation Comments Potassium Lvl (test code = Potassium 3.5 3.5-5.1 Lvl) [facility]2017-05-01 11:25:00 Test Item Value Reference Range Interpretation Comments Glucose Lvl (test code = Glucose Lvl) 134 70-99 [facility]2017-05-01 11:25:00 Test Item Value Reference Range Interpretation Comments A/G Ratio (test code = A/G Ratio) 0.9 0.7-1.6 [facility]2017-05-01 11:25:00 Test Item Value Reference Range Interpretation Comments Globulin (test code = Globulin) 3.3 2.7-4.2 [facility]2017-05-01 11:25:00 Test Item Value Reference Range Interpretation Comments B/C Ratio (test code = B/C Ratio) 36 6-25 [facility]2017-05-01 11:25:00 Test Item Value Reference Range Interpretation Comments AGAP (test code = AGAP) 13.5 10.0-20.0 [facility] CampusWxyymrzEXTOMIDNSX2150-19-31 11:25:00 Test Item Value Reference Range Interpretation Comments MCHC (test code = MCHC) 34.1 32.0-36.0 [facility] CampusYqdswjrQBUXNDQPGT2073-15-96 11:25:00 Test Item Value Reference Range Interpretation Comments MPV (test code = MPV) 9.4 7.4-10.4 [facility] CampusYqaaddlQNWXQQGIXA6984-11-95 11:25:00 Test Item Value Reference Range Interpretation Comments RDW (test code = RDW) 17.1 11.5-14.5 [facility] CampusHhptihtFRHMYDGUWU6805-31-75 11:25:00 Test Item Value Reference Range Interpretation Comments MCH (test code = MCH) 26.8 pg 27.0-31.0 [facility] CampusPkdmsvuCDYKUHAAHD0124-25-39 11:25:00 Test Item Value Reference Range Interpretation Comments Platelet (test code = Platelet) 198 133-450 [facility] CampusFpyjikuWQFWFOOBHS3883-43-27 11:25:00 Test Item Value Reference Range Interpretation Comments WBC (test code = WBC) 9.9 3.7-10.4 [facility] CampusCfmuzeyATHFRVNOKC0128-44-55 11:25:00 Test Item Value Reference Range Interpretation Comments Hgb (test code = Hgb) 8.2 12.0-16.0 [facility] [facility]DszrcgtWCRJNRGGTC5040-02-69 11:25:00 Test Item Value Reference Range Interpretation Comments RBC (test code = RBC) 3.05 4.20-5.40 [facility] CampusOjytgorGJYTFVMQWM0234-76-52 11:25:00 Test Item Value Reference Range Interpretation Comments MCV (test code = MCV) 78.5 80.0-98.0 [facility] CampusIxirqrtVECEIMPCXS7213-59-30 11:25:00 Test Item Value Reference Range Interpretation Comments Hct (test code = Hct) 23.9 36.0-48.0 [facility] CampusCbmkjxtMAHVRZWXWL9923-27-12 11:25:00 Test Item Value Reference Range Interpretation Comments Microcyte (test code = 1+ *ABN*(06/13/16 6:25 Microcyte) AM) [facility] CampusBfxlhbtWACDPWEYWX3357-62-68 11:25:00 Test Item Value Reference Range Interpretation Comments Basophils # (test code 0.1 See_Comment [Aut omated message] The = Basophils #) system which generated this result tra nsmitted reference range : <=0.2. The reference r lina was not used to int erpret this result as normal/abnormal . [facility] CampusAiwomeqOVAGGVYZWT9363-80-59 11:25:00 Test Item Value Reference Range Interpretation Comments Eosinophils # (test code 0.2 See_Comment [A utomated message] The = Eosinophils #) system whic h generated this result tra nsmitted reference range : <=0.5. The reference r lina was not used to int erpret this result as normal/abnormal . [facility] CampusHwyfzrbYWNCABZZOI8760-70-29 11:25:00 Test Item Value Reference Range Interpretation Comments Monocytes # (test code 0.7 See_Comment [Aut omated message] The = Monocytes #) system which generated this result tra nsmitted reference range : <=0.8. The reference r lina was not used to int erpret this result as normal/abnormal . [facility] CampusBclylkxKEMLPDCRCC4509-05-55 11:25:00 Test Item Value Reference Range Interpretation Comments Lymphocytes (test code = Lymphocytes) 17.6 20.0-40.0 [facility] CampusCcriazjATMMFTMPPK1303-22-52 11:25:00 Test Item Value Reference Range Interpretation Comments Segs (test code = Segs) 73.1 45.0-75.0 [facility] CampusBhhwdtvYGIPWTFEVV3864-70-00 11:25:00 Test Item Value Reference Range Interpretation Comments Basophils (test code = 0.5 See_Comment [Aut omated message] The Basophils) system which ge nerated this result tra nsmitted reference range : <=1.0. The reference r lina was not used to int erpret this result as normal/abnormal . [facility] CampusMvtbiypMLPKXIKOCR0977-44-24 11:25:00 Test Item Value Reference Range Interpretation Comments Eosinophils (test code = 2.2 See_Comment [A utomated message] The Eosinophils) system which ge nerated this result tra nsmitted reference range : <=4.0. The reference r lina was not used to int erpret this result as normal/abnormal . [facility] CampusHmhdrtcNGHNHSENFB9817-32-18 11:25:00 Test Item Value Reference Range Interpretation Comments Monocytes (test code = Monocytes) 6.6 2.0-12.0 [facility] CampusFiimeybMQEYUTEVYE2298-36-44 11:25:00 Test Item Value Reference Range Interpretation Comments Lymphocytes # (test code = Lymphocytes 1.7 1.0-5.5 #) [facility] CampusBlgccytJCANNGKBLO0879-70-99 11:25:00 Test Item Value Reference Range Interpretation Comments Segs-Bands # (test code = Segs-Bands #) 7.2 1.5-8.1 [facility] [id number] 11:25:00 Test Item Value Reference Range Interpretation Comments eGFR (test code = eGFR) 86 [facility] CKWVE5178-79-00 11:25:00 Test Item Value Reference Range Interpretation Comments Calcium Lvl (test code = Calcium Lvl) 8.9 8.5-10.5 [facility] CampusKhrrxasVGTBDZTICG3212-85-53 02:08:00 Test Item Value Reference Range Interpretation Comments Hgb (test code = Hgb) 8.0 12.0-16.0 [facility] CampusWwwhlznDAJTJHZOOC7103-72-41 02:08:00 Test Item Value Reference Range Interpretation Comments Hct (test code = Hct) 24.0 36.0-48.0 [facility] CampusCzgschzNOKDULMYPP6013-98-06 02:08:00 Test Item Value Reference Range Interpretation Comments Hgb (test code = Hgb) 8.0 12.0-16.0 [facility] CampusYehhgpmXEASUCHTSN3927-14-17 02:08:00 Test Item Value Reference Range Interpretation Comments Hct (test code = Hct) 24.0 36.0-48.0 [facility] CampusBusnrbuBADIXGQLVA4182-82-07 02:08:00 Test Item Value Reference Range Interpretation Comments Hgb (test code = Hgb) 8.0 12.0-16.0 [facility] CampusVtdeffdXEAYZOEJCV7015-87-63 02:08:00 Test Item Value Reference Range Interpretation Comments Hct (test code = Hct) 24.0 36.0-48.0 [facility] CampusAejpvliLTJXWIVXQW1545-83-42 02:08:00 Test Item Value Reference Range Interpretation Comments Hgb (test code = Hgb) 8.0 12.0-16.0 [facility] CampusIqxvmmaOBEEOMIEOW4672-00-24 02:08:00 Test Item Value Reference Range Interpretation Comments Hct (test code = Hct) 24.0 36.0-48.0 [facility] [employer] [id number] 11:30:00 Test Item Value Reference Range Interpretation Comments RBC product (test code Product available = RBC product) 1(06/10/16 6:30 AM) [facility] [id number] 11:30:00 Test Item Value Reference Range Interpretation Comments RBC product (test code Product available = RBC product) 1(06/10/16 6:30 AM) [facility] [facility] [id number] 11:30:00 Test Item Value Reference Range Interpretation Comments RBC product (test code Product available = RBC product) 1(06/10/16 6:30 AM) [facility] [facility] [id number] 11:30:00 Test Item Value Reference Range Interpretation Comments RBC product (test code Product available = RBC product) 1(06/10/16 6:30 AM) [facility] [id number] 09:06:00 Test Item Value Reference Range Interpretation Comments eGFR (test code = eGFR) 85 [facility] [id number] 09:06:00 Test Item Value Reference Range Interpretation Comments Creatinine Lvl (test code = Creatinine 0.66 0.50-1.40 Lvl) [facility] [id number] 09:06:00 Test Item Value Reference Range Interpretation Comments Potassium Lvl (test code = Potassium 3.9 3.5-5.1 Lvl) [facility] [id number] 09:06:00 Test Item Value Reference Range Interpretation Comments Sodium Lvl (test code = Sodium Lvl) 143 135-145 [facility] [id number] 09:06:00 Test Item Value Reference Range Interpretation Comments Chloride Lvl (test code = Chloride Lvl) 109 95-109 [facility] [id number] 09:06:00 Test Item Value Reference Range Interpretation Comments CO2 (test code = CO2) 25 24-32 [facility] [id number] 09:06:00 Test Item Value Reference Range Interpretation Comments AGAP (test code = AGAP) 12.9 10.0-20.0 [facility] [id number] 09:06:00 Test Item Value Reference Range Interpretation Comments Calcium Lvl (test code = Calcium Lvl) 7.9 8.5-10.5 [facility] [id number] 09:06:00 Test Item Value Reference Range Interpretation Comments Glucose Lvl (test code = Glucose Lvl) 143 70-99 [facility] [id number] 09:06:00 Test Item Value Reference Range Interpretation Comments BUN (test code = BUN) 19 7-22 [facility]At[facility] MountainUJQJH9253-47-17 09:06:00 Test Item Value Reference Range Interpretation Comments Magnesium Lvl (test code = Magnesium 2.1 1.8-2.4 Lvl) [facility]2017-04-28 09:06:00 Test Item Value Reference Range Interpretation Comments Phosphorus (test code = Phosphorus) 2.8 2.5-4.5 [facility] CampusTuygapnNAWFXMBLCH9668-69-14 09:06:00 Test Item Value Reference Range Interpretation Comments Hgb (test code = Hgb) 7.3 12.0-16.0 [facility] CampusUfhjvthNHIOABYDWO0950-82-34 09:06:00 Test Item Value Reference Range Interpretation Comments RBC (test code = RBC) 2.77 4.20-5.40 [facility] CampusJqssaorYGXCGXNJTH4623-90-22 09:06:00 Test Item Value Reference Range Interpretation Comments WBC (test code = WBC) 8.1 3.7-10.4 [facility] CampusFkzabjjMESZCDSMYL0838-24-32 09:06:00 Test Item Value Reference Range Interpretation Comments MPV (test code = MPV) 9.8 7.4-10.4 [facility] CampusXccwncxFRDYVQXRJD2551-77-58 09:06:00 Test Item Value Reference Range Interpretation Comments Platelet (test code = Platelet) 138 133-450 [facility] CampusNahtvkrHVXILZIHAW9261-36-93 09:06:00 Test Item Value Reference Range Interpretation Comments MCV (test code = MCV) 78.7 80.0-98.0 [facility] CampusPsovusvEIYKLKMHIC6071-54-13 09:06:00 Test Item Value Reference Range Interpretation Comments RDW (test code = RDW) 16.6 11.5-14.5 [facility] CampusBjrkabkCEHBMOWBYY4878-50-61 09:06:00 Test Item Value Reference Range Interpretation Comments MCHC (test code = MCHC) 33.4 32.0-36.0 [facility] CampusOrugoqlJGPIRIJINP9495-82-69 09:06:00 Test Item Value Reference Range Interpretation Comments Hct (test code = Hct) 21.8 36.0-48.0 [facility] CampusHxpxwnxKGFNNHFXDL3782-82-25 09:06:00 Test Item Value Reference Range Interpretation Comments MCH (test code = MCH) 26.3 pg 27.0-31.0 [facility] CampusXrprryiMWHSQTGTBR4471-13-06 09:06:00 Test Item Value Reference Range Interpretation Comments Microcyte (test code = 1+ *ABN*(06/10/16 Microcyte) 4:06 AM) [facility] CampusFfhjliuQJEMDZDETM1724-40-24 09:06:00 Test Item Value Reference Range Interpretation Comments Segs-Bands # (test code = Segs-Bands #) 5.6 1.5-8.1 [facility] CampusSgckpjrXIRNWKRNFX9825-13-88 09:06:00 Test Item Value Reference Range Interpretation Comments Eosinophils # (test code 0.1 See_Comment [A utomated message] The = Eosinophils #) system whic h generated this result tra nsmitted reference range : <=0.5. The reference r lina was not used to int erpret this result as normal/abnormal . [facility] CampusNfphnnePQYRBBDYWV8404-57-95 09:06:00 Test Item Value Reference Range Interpretation Comments Monocytes # (test code 0.5 See_Comment [Aut omated message] The = Monocytes #) system which generated this result tra nsmitted reference range : <=0.8. The reference r lina was not used to int erpret this result as normal/abnormal . [facility] CampusKdrilmiRLXSEUXXHL8500-99-36 09:06:00 Test Item Value Reference Range Interpretation Comments Basophils (test code = 0.3 See_Comment [Aut omated message] The Basophils) system which ge nerated this result tra nsmitted reference range : <=1.0. The reference r lina was not used to int erpret this result as normal/abnormal . [facility] CampusKejpnmtQOKSRPTDRC4076-42-84 09:06:00 Test Item Value Reference Range Interpretation Comments Lymphocytes # (test code = Lymphocytes 1.9 1.0-5.5 #) [facility] CampusCvokajoRESXBEAOKE8235-30-44 09:06:00 Test Item Value Reference Range Interpretation Comments Eosinophils (test code = 0.9 See_Comment [A utomated message] The Eosinophils) system which ge nerated this result tra nsmitted reference range : <=4.0. The reference r lina was not used to int erpret this result as normal/abnormal . [facility] CampusSmhthvsBEGYUCHSKK2211-97-26 09:06:00 Test Item Value Reference Range Interpretation Comments Monocytes (test code = Monocytes) 6.5 2.0-12.0 [facility] CampusXupuzikPKDBFWAWZV9315-19-75 09:06:00 Test Item Value Reference Range Interpretation Comments Lymphocytes (test code = Lymphocytes) 23.3 20.0-40.0 [facility]XrwxiizPNUQRPDWJL1178-85-93 09:06:00 Test Item Value Reference Range Interpretation Comments Segs (test code = Segs) 69.0 45.0-75.0 [facility]2017-04-28 09:06:00 Test Item Value Reference Range Interpretation Comments eGFR (test code = eGFR) 85 [facility]2017-04-28 09:06:00 Test Item Value Reference Range Interpretation Comments Creatinine Lvl (test code = Creatinine 0.66 0.50-1.40 Lvl) [facility]2017-04-28 09:06:00 Test Item Value Reference Range Interpretation Comments Potassium Lvl (test code = Potassium 3.9 3.5-5.1 Lvl) [facility]2017-04-28 09:06:00 Test Item Value Reference Range Interpretation Comments Sodium Lvl (test code = Sodium Lvl) 143 135-145 [facility]2017-04-28 09:06:00 Test Item Value Reference Range Interpretation Comments Chloride Lvl (test code = Chloride Lvl) 109 95-109 [facility]2017-04-28 09:06:00 Test Item Value Reference Range Interpretation Comments CO2 (test code = CO2) 25 24-32 [facility]2017-04-28 09:06:00 Test Item Value Reference Range Interpretation Comments AGAP (test code = AGAP) 12.9 10.0-20.0 [facility]2017-04-28 09:06:00 Test Item Value Reference Range Interpretation Comments Calcium Lvl (test code = Calcium Lvl) 7.9 8.5-10.5 [facility]2017-04-28 09:06:00 Test Item Value Reference Range Interpretation Comments Glucose Lvl (test code = Glucose Lvl) 143 70-99 [facility]2017-04-28 09:06:00 Test Item Value Reference Range Interpretation Comments BUN (test code = BUN) 19 7-22 [facility]2017-04-28 09:06:00 Test Item Value Reference Range Interpretation Comments Magnesium Lvl (test code = Magnesium 2.1 1.8-2.4 Lvl) [facility]2017-04-28 09:06:00 Test Item Value Reference Range Interpretation Comments Phosphorus (test code = Phosphorus) 2.8 2.5-4.5 [facility] CampusMnwtetqXVMPVLCBTP6419-23-99 09:06:00 Test Item Value Reference Range Interpretation Comments Hgb (test code = Hgb) 7.3 12.0-16.0 [facility] CampusUekacisMXBPPCIWZG2037-26-40 09:06:00 Test Item Value Reference Range Interpretation Comments RBC (test code = RBC) 2.77 4.20-5.40 [facility] CampusQxonhzeVWFBQVQLST1820-39-66 09:06:00 Test Item Value Reference Range Interpretation Comments WBC (test code = WBC) 8.1 3.7-10.4 [facility] CampusNzciakhYPKYNITJMB7383-86-88 09:06:00 Test Item Value Reference Range Interpretation Comments MPV (test code = MPV) 9.8 7.4-10.4 [facility] CampusFpjkshpPNQQKPHUMX8285-42-26 09:06:00 Test Item Value Reference Range Interpretation Comments Platelet (test code = Platelet) 138 133-450 [facility] CampusAbrwyerQOEWGHJIRR6043-40-17 09:06:00 Test Item Value Reference Range Interpretation Comments MCV (test code = MCV) 78.7 80.0-98.0 [facility] CampusUggquzpPZNVTJPOAW3514-68-60 09:06:00 Test Item Value Reference Range Interpretation Comments RDW (test code = RDW) 16.6 11.5-14.5 [facility] CampusTouroyfLCDCODMIUT6951-97-08 09:06:00 Test Item Value Reference Range Interpretation Comments MCHC (test code = MCHC) 33.4 32.0-36.0 [facility] CampusYilgkttOSMOXOBMCE9540-90-25 09:06:00 Test Item Value Reference Range Interpretation Comments Hct (test code = Hct) 21.8 36.0-48.0 [facility] CampusCicwdocTHIHOSTHEN1721-36-56 09:06:00 Test Item Value Reference Range Interpretation Comments MCH (test code = MCH) 26.3 pg 27.0-31.0 [facility] CampusBfvxdtmWPTNQSAXDY7588-23-62 09:06:00 Test Item Value Reference Range Interpretation Comments Microcyte (test code = 1+ *ABN*(06/10/16 Microcyte) 4:06 AM) [facility] CampusFkambupRETSQXVNLU4640-51-33 09:06:00 Test Item Value Reference Range Interpretation Comments Segs-Bands # (test code = Segs-Bands #) 5.6 1.5-8.1 [facility] CampusJtwiwvlYLKLPXKYVG8253-88-70 09:06:00 Test Item Value Reference Range Interpretation Comments Eosinophils # (test code 0.1 See_Comment [A utomated message] The = Eosinophils #) system wh h generated this result tra nsmitted reference range : <=0.5. The reference r lina was not used to int erpret this result as normal/abnormal . [facility] CampusYzwptxsBZPXBXPABU5194-51-79 09:06:00 Test Item Value Reference Range Interpretation Comments Monocytes # (test code 0.5 See_Comment [Aut omated message] The = Monocytes #) system which generated this result tra nsmitted reference range : <=0.8. The reference r lina was not used to int erpret this result as normal/abnormal . [facility] CampusRcgvalkWYEGVUVGVD9704-55-62 09:06:00 Test Item Value Reference Range Interpretation Comments Basophils (test code = 0.3 See_Comment [Aut omated message] The Basophils) system which ge nerated this result tra nsmitted reference range : <=1.0. The reference r lina was not used to int erpret this result as normal/abnormal . [facility] CampusGbeamhsUAPWTVWLFK6691-18-06 09:06:00 Test Item Value Reference Range Interpretation Comments Lymphocytes # (test code = Lymphocytes 1.9 1.0-5.5 #) [facility] CampusTilngxyDTHZSJJUII0414-84-32 09:06:00 Test Item Value Reference Range Interpretation Comments Eosinophils (test code = 0.9 See_Comment [A utomated message] The Eosinophils) system which ge nerated this result tra nsmitted reference range : <=4.0. The reference r lina was not used to int erpret this result as normal/abnormal . [facility] CampusTciicaqRPIGIBVCNX8378-65-61 09:06:00 Test Item Value Reference Range Interpretation Comments Monocytes (test code = Monocytes) 6.5 2.0-12.0 [facility] CampusNzzkkazJMKIOUYSXO6583-67-83 09:06:00 Test Item Value Reference Range Interpretation Comments Lymphocytes (test code = Lymphocytes) 23.3 20.0-40.0 [facility] CampusShbaewjDCCPULHVLQ2621-28-65 09:06:00 Test Item Value Reference Range Interpretation Comments Segs (test code = Segs) 69.0 45.0-75.0 [facility]2017-04-28 09:06:00 Test Item Value Reference Range Interpretation Comments eGFR (test code = eGFR) 85 [facility]2017-04-28 09:06:00 Test Item Value Reference Range Interpretation Comments Creatinine Lvl (test code = Creatinine 0.66 0.50-1.40 Lvl) [facility]2017-04-28 09:06:00 Test Item Value Reference Range Interpretation Comments Potassium Lvl (test code = Potassium 3.9 3.5-5.1 Lvl) [facility]2017-04-28 09:06:00 Test Item Value Reference Range Interpretation Comments Sodium Lvl (test code = Sodium Lvl) 143 135-145 [facility]2017-04-28 09:06:00 Test Item Value Reference Range Interpretation Comments Chloride Lvl (test code = Chloride Lvl) 109 95-109 [facility]2017-04-28 09:06:00 Test Item Value Reference Range Interpretation Comments CO2 (test code = CO2) 25 24-32 [facility]2017-04-28 09:06:00 Test Item Value Reference Range Interpretation Comments AGAP (test code = AGAP) 12.9 10.0-20.0 [facility]2017-04-28 09:06:00 Test Item Value Reference Range Interpretation Comments Calcium Lvl (test code = Calcium Lvl) 7.9 8.5-10.5 [facility]2017-04-28 09:06:00 Test Item Value Reference Range Interpretation Comments Glucose Lvl (test code = Glucose Lvl) 143 70-99 [facility]2017-04-28 09:06:00 Test Item Value Reference Range Interpretation Comments BUN (test code = BUN) 19 7-22 [facility]2017-04-28 09:06:00 Test Item Value Reference Range Interpretation Comments Magnesium Lvl (test code = Magnesium 2.1 1.8-2.4 Lvl) [facility]2017-04-28 09:06:00 Test Item Value Reference Range Interpretation Comments Phosphorus (test code = Phosphorus) 2.8 2.5-4.5 [facility] CampusQeommzsVJDJBFXZKN0372-72-44 09:06:00 Test Item Value Reference Range Interpretation Comments Hgb (test code = Hgb) 7.3 12.0-16.0 [facility] CampusWzrzqatPJHNRUSEOU8789-68-88 09:06:00 Test Item Value Reference Range Interpretation Comments RBC (test code = RBC) 2.77 4.20-5.40 [facility] CampusKgwsmsrAQLAMDCYJS0680-92-32 09:06:00 Test Item Value Reference Range Interpretation Comments WBC (test code = WBC) 8.1 3.7-10.4 [facility] CampusOuedrlbKLHNTYDCVL7015-87-89 09:06:00 Test Item Value Reference Range Interpretation Comments MPV (test code = MPV) 9.8 7.4-10.4 [facility] CampusLvewkprLDNVSVOAFD0835-04-36 09:06:00 Test Item Value Reference Range Interpretation Comments Platelet (test code = Platelet) 138 133-450 [facility] CampusJrvlasdAJSZPWLSXE4438-18-96 09:06:00 Test Item Value Reference Range Interpretation Comments MCV (test code = MCV) 78.7 80.0-98.0 [facility]2017-04-28 09:06:00 Test Item Value Reference Range Interpretation Comments eGFR (test code = eGFR) 85 [facility]2017-04-28 09:06:00 Test Item Value Reference Range Interpretation Comments Creatinine Lvl (test code = Creatinine 0.66 0.50-1.40 Lvl) [facility]2017-04-28 09:06:00 Test Item Value Reference Range Interpretation Comments Potassium Lvl (test code = Potassium 3.9 3.5-5.1 Lvl) [facility]2017-04-28 09:06:00 Test Item Value Reference Range Interpretation Comments Sodium Lvl (test code = Sodium Lvl) 143 135-145 [facility]2017-04-28 09:06:00 Test Item Value Reference Range Interpretation Comments Chloride Lvl (test code = Chloride Lvl) 109 95-109 [facility]2017-04-28 09:06:00 Test Item Value Reference Range Interpretation Comments CO2 (test code = CO2) 25 24-32 [facility]2017-04-28 09:06:00 Test Item Value Reference Range Interpretation Comments AGAP (test code = AGAP) 12.9 10.0-20.0 [facility]2017-04-28 09:06:00 Test Item Value Reference Range Interpretation Comments Calcium Lvl (test code = Calcium Lvl) 7.9 8.5-10.5 [facility]2017-04-28 09:06:00 Test Item Value Reference Range Interpretation Comments Glucose Lvl (test code = Glucose Lvl) 143 70-99 [facility] CampusSbpfdxiIXAAZLXQQN6643-69-57 09:06:00 Test Item Value Reference Range Interpretation Comments RDW (test code = RDW) 16.6 11.5-14.5 [facility]2017-04-28 09:06:00 Test Item Value Reference Range Interpretation Comments BUN (test code = BUN) 19 7-22 [facility]2017-04-28 09:06:00 Test Item Value Reference Range Interpretation Comments Magnesium Lvl (test code = Magnesium 2.1 1.8-2.4 Lvl) [facility]2017-04-28 09:06:00 Test Item Value Reference Range Interpretation Comments Phosphorus (test code = Phosphorus) 2.8 2.5-4.5 [facility] CampusAdtovmsRZGDDLKIVB7145-61-83 09:06:00 Test Item Value Reference Range Interpretation Comments Hgb (test code = Hgb) 7.3 12.0-16.0 [facility] CampusQsxvvfsFRNIYUERBQ8249-00-61 09:06:00 Test Item Value Reference Range Interpretation Comments RBC (test code = RBC) 2.77 4.20-5.40 [facility] CampusUxjuoqmIJVBXEMLDP6132-63-00 09:06:00 Test Item Value Reference Range Interpretation Comments WBC (test code = WBC) 8.1 3.7-10.4 [facility] CampusLlifwutFQVTHSVQOI6986-19-46 09:06:00 Test Item Value Reference Range Interpretation Comments MPV (test code = MPV) 9.8 7.4-10.4 [facility] CampusLdchnuiTHGAYJUKXW1837-47-71 09:06:00 Test Item Value Reference Range Interpretation Comments Platelet (test code = Platelet) 138 133-450 [facility] CampusPfuvblqPIHCMLSXMT4555-33-15 09:06:00 Test Item Value Reference Range Interpretation Comments MCV (test code = MCV) 78.7 80.0-98.0 [facility] CampusSxgvaveMEHXKVUAGM3100-48-80 09:06:00 Test Item Value Reference Range Interpretation Comments RDW (test code = RDW) 16.6 11.5-14.5 [facility] CampusSwajqbeIVSVNAWECO7021-94-80 09:06:00 Test Item Value Reference Range Interpretation Comments MCHC (test code = MCHC) 33.4 32.0-36.0 [facility] CampusAhhcqzhZDDFAVRXRC3269-75-23 09:06:00 Test Item Value Reference Range Interpretation Comments MCHC (test code = MCHC) 33.4 32.0-36.0 [facility] CampusWymejtjBRDMPPGADO7311-98-16 09:06:00 Test Item Value Reference Range Interpretation Comments Hct (test code = Hct) 21.8 36.0-48.0 [facility] CampusFhxquxrDMHVDKTHWW0667-69-17 09:06:00 Test Item Value Reference Range Interpretation Comments MCH (test code = MCH) 26.3 pg 27.0-31.0 [facility] CampusQktxqxdINIAAAUGJG2243-65-82 09:06:00 Test Item Value Reference Range Interpretation Comments Microcyte (test code = 1+ *ABN*(06/10/16 Microcyte) 4:06 AM) [facility] CampusQybbzfbMTQQMGXGZY0007-78-59 09:06:00 Test Item Value Reference Range Interpretation Comments Segs-Bands # (test code = Segs-Bands #) 5.6 1.5-8.1 [facility] CampusUnpmchbTYCUWDPRFC7740-85-23 09:06:00 Test Item Value Reference Range Interpretation Comments Eosinophils # (test code 0.1 See_Comment [A utomated message] The = Eosinophils #) system whic h generated this result tra nsmitted reference range : <=0.5. The reference r lina was not used to int erpret this result as normal/abnormal . [facility] CampusVkbpfupQYJVXDEUTC0896-71-62 09:06:00 Test Item Value Reference Range Interpretation Comments Monocytes # (test code 0.5 See_Comment [Aut omated message] The = Monocytes #) system which generated this result tra nsmitted reference range : <=0.8. The reference r lina was not used to int erpret this result as normal/abnormal . [facility] CampusSgwesrqGIFGKIPGOK5690-31-53 09:06:00 Test Item Value Reference Range Interpretation Comments Basophils (test code = 0.3 See_Comment [Aut omated message] The Basophils) system which ge nerated this result tra nsmitted reference range : <=1.0. The reference r lina was not used to int erpret this result as normal/abnormal . [facility] CampusTvecjlmFFNKIQEVPW3915-95-94 09:06:00 Test Item Value Reference Range Interpretation Comments Lymphocytes # (test code = Lymphocytes 1.9 1.0-5.5 #) [facility] CampusMctrbfhHQJJZEPWJB3488-99-57 09:06:00 Test Item Value Reference Range Interpretation Comments Eosinophils (test code = 0.9 See_Comment [A utomated message] The Eosinophils) system which ge nerated this result tra nsmitted reference range : <=4.0. The reference r lina was not used to int erpret this result as normal/abnormal . [facility] CampusKovlulsRIUYIUCLNO6199-04-84 09:06:00 Test Item Value Reference Range Interpretation Comments Hct (test code = Hct) 21.8 36.0-48.0 [facility] CampusIdhgbtpCJMZNVFDPW9072-96-24 09:06:00 Test Item Value Reference Range Interpretation Comments Monocytes (test code = Monocytes) 6.5 2.0-12.0 [facility] CampusGytzbpdLIMWDWOEKK6350-91-94 09:06:00 Test Item Value Reference Range Interpretation Comments Lymphocytes (test code = Lymphocytes) 23.3 20.0-40.0 [facility] CampusKxrgobfXVOIFWQHUL1486-23-61 09:06:00 Test Item Value Reference Range Interpretation Comments Segs (test code = Segs) 69.0 45.0-75.0 [facility] CampusJkotcshCSFORVTSEZ0581-71-96 09:06:00 Test Item Value Reference Range Interpretation Comments MCH (test code = MCH) 26.3 pg 27.0-31.0 [facility] CampusMeuuvpfCTJKXFYDKE4255-89-66 09:06:00 Test Item Value Reference Range Interpretation Comments Microcyte (test code = 1+ *ABN*(06/10/16 Microcyte) 4:06 AM) [facility] CampusXteburzHREEAYLVER9144-91-03 09:06:00 Test Item Value Reference Range Interpretation Comments Segs-Bands # (test code = Segs-Bands #) 5.6 1.5-8.1 [facility] CampusLxiwkmiPHLTNXQUGV3014-42-02 09:06:00 Test Item Value Reference Range Interpretation Comments Eosinophils # (test code 0.1 See_Comment [A utomated message] The = Eosinophils #) system whic h generated this result tra nsmitted reference range : <=0.5. The reference r lina was not used to int erpret this result as normal/abnormal . [facility] CampusUxyovicCZCCCFCUOW3395-42-92 09:06:00 Test Item Value Reference Range Interpretation Comments Monocytes # (test code 0.5 See_Comment [Aut omated message] The = Monocytes #) system which generated this result tra nsmitted reference range : <=0.8. The reference r lina was not used to int erpret this result as normal/abnormal . [facility] CampusSrrzdnqTEDFHPYULR1823-89-00 09:06:00 Test Item Value Reference Range Interpretation Comments Basophils (test code = 0.3 See_Comment [Aut omated message] The Basophils) system which ge nerated this result tra nsmitted reference range : <=1.0. The reference r lina was not used to int erpret this result as normal/abnormal . [facility] CampusDhvdijaVZARRBHWHL1263-37-34 09:06:00 Test Item Value Reference Range Interpretation Comments Lymphocytes # (test code = Lymphocytes 1.9 1.0-5.5 #) [facility] CampusSzbxxclWWFYVHCNAR9660-66-41 09:06:00 Test Item Value Reference Range Interpretation Comments Eosinophils (test code = 0.9 See_Comment [A utomated message] The Eosinophils) system which ge nerated this result tra nsmitted reference range : <=4.0. The reference r lina was not used to int erpret this result as normal/abnormal . [facility] CampusAdgwkrcDDPEYSDRES4801-00-97 09:06:00 Test Item Value Reference Range Interpretation Comments Monocytes (test code = Monocytes) 6.5 2.0-12.0 [facility] CampusEeaxqeuNSEDYXCCGL6298-75-79 09:06:00 Test Item Value Reference Range Interpretation Comments Lymphocytes (test code = Lymphocytes) 23.3 20.0-40.0 [facility] CampusPzgaiasLNSXNUETNH5123-22-34 09:06:00 Test Item Value Reference Range Interpretation Comments Segs (test code = Segs) 69.0 45.0-75.0 [facility]Scient[facility] ([facility]ERYUOBO5928-53-28 09:37:00 Test Item Value Reference Range Interpretation Comments eGFR (test code = eGFR) 84 [facility]2017-04-27 09:37:00 Test Item Value Reference Range Interpretation Comments Creatinine Lvl (test code = Creatinine 0.70 0.50-1.40 Lvl) [facility]2017-04-27 09:37:00 Test Item Value Reference Range Interpretation Comments Potassium Lvl (test code = Potassium 3.8 3.5-5.1 Lvl) [facility]2017-04-27 09:37:00 Test Item Value Reference Range Interpretation Comments Sodium Lvl (test code = Sodium Lvl) 140 135-145 [facility]2017-04-27 09:37:00 Test Item Value Reference Range Interpretation Comments Glucose Lvl (test code = Glucose Lvl) 215 70-99 [facility]2017-04-27 09:37:00 Test Item Value Reference Range Interpretation Comments BUN (test code = BUN) 20 7-22 [facility]2017-04-27 09:37:00 Test Item Value Reference Range Interpretation Comments Calcium Lvl (test code = Calcium Lvl) 7.6 8.5-10.5 [facility]2017-04-27 09:37:00 Test Item Value Reference Range Interpretation Comments Chloride Lvl (test code = Chloride Lvl) 105 95-109 [facility]2017-04-27 09:37:00 Test Item Value Reference Range Interpretation Comments AGAP (test code = AGAP) 10.8 10.0-20.0 [facility]2017-04-27 09:37:00 Test Item Value Reference Range Interpretation Comments CO2 (test code = CO2) 28 24-32 [facility] CampusSowffvnLQBRLBUDBQ7518-13-17 09:37:00 Test Item Value Reference Range Interpretation Comments RBC (test code = RBC) 3.07 4.20-5.40 [facility] CampusIrmsgwkEVUHYSZRUU4814-49-40 09:37:00 Test Item Value Reference Range Interpretation Comments MCV (test code = MCV) 77.3 80.0-98.0 [facility] CampusJbkpilyTNJCEEFRDB2848-01-82 09:37:00 Test Item Value Reference Range Interpretation Comments WBC (test code = WBC) 9.5 3.7-10.4 [facility] CampusGisovabJLKPCEYDWM8727-85-99 09:37:00 Test Item Value Reference Range Interpretation Comments MCHC (test code = MCHC) 33.5 32.0-36.0 [facility] CampusNmusjfpPDYSNPIJAO6148-59-52 09:37:00 Test Item Value Reference Range Interpretation Comments RDW (test code = RDW) 16.4 11.5-14.5 [facility] CampusKkzcynuWWDGAIOWJA5097-44-50 09:37:00 Test Item Value Reference Range Interpretation Comments MCH (test code = MCH) 25.9 pg 27.0-31.0 [facility] CampusFifhyjfAPULJOYSTW5202-08-49 09:37:00 Test Item Value Reference Range Interpretation Comments Platelet (test code = Platelet) 153 133-450 [facility] CampusXqlulclVRJHQVSAZZ0960-19-83 09:37:00 Test Item Value Reference Range Interpretation Comments MPV (test code = MPV) 9.1 7.4-10.4 [facility] CampusQadkrdvOMOCBAQXKD0259-88-14 09:37:00 Test Item Value Reference Range Interpretation Comments Microcyte (test code = 1+ *ABN*(06/09/16 Microcyte) 4:37 AM) [facility] CampusSyijhynHLRGPJZCCV5265-95-86 09:37:00 Test Item Value Reference Range Interpretation Comments Lymphocytes (test code = Lymphocytes) 13.1 20.0-40.0 [facility] CampusWzoobsvLNKXXJJECZ1452-94-79 09:37:00 Test Item Value Reference Range Interpretation Comments Monocytes (test code = Monocytes) 7.3 2.0-12.0 [facility] CampusAavevqyOKULCADXNF6477-41-27 09:37:00 Test Item Value Reference Range Interpretation Comments Segs-Bands # (test code = Segs-Bands #) 7.6 1.5-8.1 [facility] CampusEsuezylYHCKZJUWZC8435-70-16 09:37:00 Test Item Value Reference Range Interpretation Comments Basophils (test code = 0.2 See_Comment [Aut omated message] The Basophils) system which ge nerated this result tra nsmitted reference range : <=1.0. The reference r lina was not used to int erpret this result as normal/abnormal . [facility] CampusPlipoygGCLXXVZELJ1457-43-64 09:37:00 Test Item Value Reference Range Interpretation Comments Segs (test code = Segs) 79.4 45.0-75.0 [facility] CampusJubqqcsFGYHAJDWDW6014-31-03 09:37:00 Test Item Value Reference Range Interpretation Comments Lymphocytes # (test code = Lymphocytes 1.3 1.0-5.5 #) [facility] CampusNgletaiPLCJFSRXJJ2572-74-22 09:37:00 Test Item Value Reference Range Interpretation Comments Monocytes # (test code 0.7 See_Comment [Aut omated message] The = Monocytes #) system which generated this result tra nsmitted reference range : <=0.8. The reference r lina was not used to int erpret this result as normal/abnormal . [facility]2017-04-27 09:37:00 Test Item Value Reference Range Interpretation Comments eGFR (test code = eGFR) 84 [facility]2017-04-27 09:37:00 Test Item Value Reference Range Interpretation Comments Creatinine Lvl (test code = Creatinine 0.70 0.50-1.40 Lvl) [facility]2017-04-27 09:37:00 Test Item Value Reference Range Interpretation Comments Potassium Lvl (test code = Potassium 3.8 3.5-5.1 Lvl) [facility]2017-04-27 09:37:00 Test Item Value Reference Range Interpretation Comments Sodium Lvl (test code = Sodium Lvl) 140 135-145 [facility]2017-04-27 09:37:00 Test Item Value Reference Range Interpretation Comments Glucose Lvl (test code = Glucose Lvl) 215 70-99 [facility]2017-04-27 09:37:00 Test Item Value Reference Range Interpretation Comments BUN (test code = BUN) 20 7-22 [facility]2017-04-27 09:37:00 Test Item Value Reference Range Interpretation Comments Calcium Lvl (test code = Calcium Lvl) 7.6 8.5-10.5 [facility]2017-04-27 09:37:00 Test Item Value Reference Range Interpretation Comments Chloride Lvl (test code = Chloride Lvl) 105 95-109 [facility]2017-04-27 09:37:00 Test Item Value Reference Range Interpretation Comments AGAP (test code = AGAP) 10.8 10.0-20.0 [facility]2017-04-27 09:37:00 Test Item Value Reference Range Interpretation Comments CO2 (test code = CO2) 28 24-32 [facility] CampusEfgasrtNFECFDUXCV2923-62-62 09:37:00 Test Item Value Reference Range Interpretation Comments RBC (test code = RBC) 3.07 4.20-5.40 [facility] CampusZvwfrpzZPZFWDWBNX9917-41-35 09:37:00 Test Item Value Reference Range Interpretation Comments MCV (test code = MCV) 77.3 80.0-98.0 [facility] CampusDccxuveXAKPUCYPLE7886-99-84 09:37:00 Test Item Value Reference Range Interpretation Comments WBC (test code = WBC) 9.5 3.7-10.4 [facility] CampusMlvdhmgEKOBZMIZKV7096-35-09 09:37:00 Test Item Value Reference Range Interpretation Comments MCHC (test code = MCHC) 33.5 32.0-36.0 [facility] CampusSsqxnotGLCYWOGLEI5588-65-50 09:37:00 Test Item Value Reference Range Interpretation Comments RDW (test code = RDW) 16.4 11.5-14.5 [facility] CampusEdanhnqLTKKMJDDKY1354-85-80 09:37:00 Test Item Value Reference Range Interpretation Comments MCH (test code = MCH) 25.9 pg 27.0-31.0 [facility] CampusTuetwtmSXZFFMLPAY1499-92-53 09:37:00 Test Item Value Reference Range Interpretation Comments Platelet (test code = Platelet) 153 133-450 [facility] CampusKrlcdfdHNZCJMUILS0306-66-28 09:37:00 Test Item Value Reference Range Interpretation Comments MPV (test code = MPV) 9.1 7.4-10.4 [facility] CampusFmsylnbRRXZIFFZGE6128-16-35 09:37:00 Test Item Value Reference Range Interpretation Comments Microcyte (test code = 1+ *ABN*(06/09/16 Microcyte) 4:37 AM) [facility] CampusTqmbfinNYOEIDVRVP4439-13-89 09:37:00 Test Item Value Reference Range Interpretation Comments Lymphocytes (test code = Lymphocytes) 13.1 20.0-40.0 [facility] CampusLkznjkuPBTOYKZSXO1242-01-78 09:37:00 Test Item Value Reference Range Interpretation Comments Monocytes (test code = Monocytes) 7.3 2.0-12.0 [facility] CampusAtyzbtxXEYPBVKBSL7952-84-35 09:37:00 Test Item Value Reference Range Interpretation Comments Segs-Bands # (test code = Segs-Bands #) 7.6 1.5-8.1 [facility] CampusWbeojyuMWYKNDNPDC0568-30-54 09:37:00 Test Item Value Reference Range Interpretation Comments Basophils (test code = 0.2 See_Comment [Aut omated message] The Basophils) system which ge nerated this result tra nsmitted reference range : <=1.0. The reference r lina was not used to int erpret this result as normal/abnormal . [facility] CampusTxujvopPBEIMDMSQP0154-14-12 09:37:00 Test Item Value Reference Range Interpretation Comments Segs (test code = Segs) 79.4 45.0-75.0 [facility] CampusCammhtrNMGYZTUXPS1104-31-82 09:37:00 Test Item Value Reference Range Interpretation Comments Lymphocytes # (test code = Lymphocytes 1.3 1.0-5.5 #) [facility] CampusOacasmrZQOUTWJAWH0278-62-54 09:37:00 Test Item Value Reference Range Interpretation Comments Monocytes # (test code 0.7 See_Comment [Aut omated message] The = Monocytes #) system which generated this result tra nsmitted reference range : <=0.8. The reference r lina was not used to int erpret this result as normal/abnormal . [facility]2017-04-27 09:37:00 Test Item Value Reference Range Interpretation Comments eGFR (test code = eGFR) 84 [facility]2017-04-27 09:37:00 Test Item Value Reference Range Interpretation Comments Creatinine Lvl (test code = Creatinine 0.70 0.50-1.40 Lvl) [facility]2017-04-27 09:37:00 Test Item Value Reference Range Interpretation Comments Potassium Lvl (test code = Potassium 3.8 3.5-5.1 Lvl) [facility]2017-04-27 09:37:00 Test Item Value Reference Range Interpretation Comments Sodium Lvl (test code = Sodium Lvl) 140 135-145 [facility]2017-04-27 09:37:00 Test Item Value Reference Range Interpretation Comments Glucose Lvl (test code = Glucose Lvl) 215 70-99 [facility]2017-04-27 09:37:00 Test Item Value Reference Range Interpretation Comments BUN (test code = BUN) 20 7-22 [facility]2017-04-27 09:37:00 Test Item Value Reference Range Interpretation Comments Calcium Lvl (test code = Calcium Lvl) 7.6 8.5-10.5 [facility]2017-04-27 09:37:00 Test Item Value Reference Range Interpretation Comments Chloride Lvl (test code = Chloride Lvl) 105 95-109 [facility] ZIIEM4302-97-64 09:37:00 Test Item Value Reference Range Interpretation Comments AGAP (test code = AGAP) 10.8 10.0-20.0 [facility] ZOIOG3520-91-18 09:37:00 Test Item Value Reference Range Interpretation Comments CO2 (test code = CO2) 28 24-32 [facility] CampusSmkuttjUGNOLYPBFQ3264-35-11 09:37:00 Test Item Value Reference Range Interpretation Comments RBC (test code = RBC) 3.07 4.20-5.40 [facility] CampusRzblnzxWYBZXPWGMX1265-58-23 09:37:00 Test Item Value Reference Range Interpretation Comments MCV (test code = MCV) 77.3 80.0-98.0 [facility] CampusPigcgqaSRMLTWKFHR6716-52-77 09:37:00 Test Item Value Reference Range Interpretation Comments WBC (test code = WBC) 9.5 3.7-10.4 [facility] CampusQlzilmfZLIWNBBOPY3735-11-89 09:37:00 Test Item Value Reference Range Interpretation Comments MCHC (test code = MCHC) 33.5 32.0-36.0 [facility] CampusNmstjnfNRJNTBBMRV2707-53-95 09:37:00 Test Item Value Reference Range Interpretation Comments RDW (test code = RDW) 16.4 11.5-14.5 [facility] CampusBodisdwHIHCRJPDIA9164-35-83 09:37:00 Test Item Value Reference Range Interpretation Comments MCH (test code = MCH) 25.9 pg 27.0-31.0 [facility] CampusNmolhahYUFEXWKART3646-80-96 09:37:00 Test Item Value Reference Range Interpretation Comments Platelet (test code = Platelet) 153 679-450 [facility] CampusNsyserwDUVKMRRARB9041-83-93 09:37:00 Test Item Value Reference Range Interpretation Comments MPV (test code = MPV) 9.1 7.4-10.4 [facility] CampusXflwskqTLTLKHMALM6501-10-97 09:37:00 Test Item Value Reference Range Interpretation Comments Microcyte (test code = 1+ *ABN*(06/09/16 Microcyte) 4:37 AM) [facility] CampusJrlodzsHMVWFLWMXG2690-42-56 09:37:00 Test Item Value Reference Range Interpretation Comments Lymphocytes (test code = Lymphocytes) 13.1 20.0-40.0 [facility] CampusQswicuzFXIVXNMFSR9921-66-26 09:37:00 Test Item Value Reference Range Interpretation Comments Monocytes (test code = Monocytes) 7.3 2.0-12.0 [facility] CampusTfgwwmeYFQNKVQJUA8868-70-06 09:37:00 Test Item Value Reference Range Interpretation Comments Segs-Bands # (test code = Segs-Bands #) 7.6 1.5-8.1 [facility] CampusJzqphsfOQAUDTSPPL8065-38-63 09:37:00 Test Item Value Reference Range Interpretation Comments Basophils (test code = 0.2 See_Comment [Aut omated message] The Basophils) system which ge nerated this result tra nsmitted reference range : <=1.0. The reference r lina was not used to int erpret this result as normal/abnormal . [facility] CampusIwmbmqaABUIFLURVJ8114-11-41 09:37:00 Test Item Value Reference Range Interpretation Comments Segs (test code = Segs) 79.4 45.0-75.0 [facility] CampusKuxakytXGEDJXHBXT2920-20-67 09:37:00 Test Item Value Reference Range Interpretation Comments Lymphocytes # (test code = Lymphocytes 1.3 1.0-5.5 #) [facility] CampusTlvskgpKJVAQMUBLR7722-92-57 09:37:00 Test Item Value Reference Range Interpretation Comments Monocytes # (test code 0.7 See_Comment [Aut omated message] The = Monocytes #) system which generated this result tra nsmitted reference range : <=0.8. The reference r lina was not used to int erpret this result as normal/abnormal . [facility]2017-04-27 09:37:00 Test Item Value Reference Range Interpretation Comments eGFR (test code = eGFR) 84 [facility]2017-04-27 09:37:00 Test Item Value Reference Range Interpretation Comments Creatinine Lvl (test code = Creatinine 0.70 0.50-1.40 Lvl) [facility]2017-04-27 09:37:00 Test Item Value Reference Range Interpretation Comments Potassium Lvl (test code = Potassium 3.8 3.5-5.1 Lvl) [facility]2017-04-27 09:37:00 Test Item Value Reference Range Interpretation Comments Sodium Lvl (test code = Sodium Lvl) 140 135-145 [facility]2017-04-27 09:37:00 Test Item Value Reference Range Interpretation Comments Glucose Lvl (test code = Glucose Lvl) 215 70-99 [facility]2017-04-27 09:37:00 Test Item Value Reference Range Interpretation Comments BUN (test code = BUN) 20 7-22 [facility]2017-04-27 09:37:00 Test Item Value Reference Range Interpretation Comments Calcium Lvl (test code = Calcium Lvl) 7.6 8.5-10.5 [facility]2017-04-27 09:37:00 Test Item Value Reference Range Interpretation Comments Chloride Lvl (test code = Chloride Lvl) 105 95-109 [facility]2017-04-27 09:37:00 Test Item Value Reference Range Interpretation Comments AGAP (test code = AGAP) 10.8 10.0-20.0 [facility]2017-04-27 09:37:00 Test Item Value Reference Range Interpretation Comments CO2 (test code = CO2) 28 24-32 [facility] CampusWjrtrhwEVXPLCGZSK2723-12-99 09:37:00 Test Item Value Reference Range Interpretation Comments RBC (test code = RBC) 3.07 4.20-5.40 [facility] CampusLywuuqtRYYWGTJHNJ1179-58-83 09:37:00 Test Item Value Reference Range Interpretation Comments MCV (test code = MCV) 77.3 80.0-98.0 [facility] CampusHopyphoNDEJWHSQFN9794-93-54 09:37:00 Test Item Value Reference Range Interpretation Comments WBC (test code = WBC) 9.5 3.7-10.4 [facility] CampusVlpbgicEXKVNNKCHG6326-54-85 09:37:00 Test Item Value Reference Range Interpretation Comments MCHC (test code = MCHC) 33.5 32.0-36.0 [facility] CampusVjgsfdmUAHLVHVHOK4312-65-19 09:37:00 Test Item Value Reference Range Interpretation Comments RDW (test code = RDW) 16.4 11.5-14.5 [facility] CampusSezzmdsNOJXZXJAMM0886-15-32 09:37:00 Test Item Value Reference Range Interpretation Comments MCH (test code = MCH) 25.9 pg 27.0-31.0 [facility] CampusHtwqxspYQXTCWTEMN6681-76-05 09:37:00 Test Item Value Reference Range Interpretation Comments Platelet (test code = Platelet) 153 133-450 [facility] CampusIvaxtvwASZUTFDWKG3786-43-72 09:37:00 Test Item Value Reference Range Interpretation Comments MPV (test code = MPV) 9.1 7.4-10.4 [facility] CampusOgszsyiIVNCBEAZCG7024-99-24 09:37:00 Test Item Value Reference Range Interpretation Comments Microcyte (test code = 1+ *ABN*(06/09/16 Microcyte) 4:37 AM) [facility] CampusKexqxfbRZVMORAPJI4693-59-74 09:37:00 Test Item Value Reference Range Interpretation Comments Lymphocytes (test code = Lymphocytes) 13.1 20.0-40.0 [facility] CampusTvuvjdwWDQRRJSPVK0549-78-01 09:37:00 Test Item Value Reference Range Interpretation Comments Monocytes (test code = Monocytes) 7.3 2.0-12.0 [facility] CampusEdrlxlpVCQPPWTUSN6884-77-82 09:37:00 Test Item Value Reference Range Interpretation Comments Segs-Bands # (test code = Segs-Bands #) 7.6 1.5-8.1 [facility] CampusJralwsrVXZTQWSITK2314-04-04 09:37:00 Test Item Value Reference Range Interpretation Comments Basophils (test code = 0.2 See_Comment [Aut omated message] The Basophils) system which ge nerated this result tra nsmitted reference range : <=1.0. The reference r lina was not used to int erpret this result as normal/abnormal . [facility] CampusGszwsrzFJRODWOQNU4982-28-15 09:37:00 Test Item Value Reference Range Interpretation Comments Segs (test code = Segs) 79.4 45.0-75.0 [facility] CampusZrqtdmpBTWZRLJPDZ2625-62-65 09:37:00 Test Item Value Reference Range Interpretation Comments Lymphocytes # (test code = Lymphocytes 1.3 1.0-5.5 #) [facility] CampusUfvtuegWGNVOVCXOS4171-65-60 09:37:00 Test Item Value Reference Range Interpretation Comments Monocytes # (test code 0.7 See_Comment [Aut omated message] The = Monocytes #) system which generated this result tra nsmitted reference range : <=0.8. The reference r lina was not used to int erpret this result as normal/abnormal . [facility]BA[facility] - ZNZHAKCI9553-09-67 18:43:00 Test Item Value Reference Range Interpretation Comments MRSA by PCR (test Negative (06/08/16 1:43 code = [facility] by PCR) [facility] [id number] 18:43:00 Test Item Value Reference Range Interpretation Comments MRSA by PCR (test Negative (06/08/16 1:43 code = MRSA by PCR) PM) [facility] [id number] 18:43:00 Test Item Value Reference Range Interpretation Comments MRSA by PCR (test Negative (06/08/16 1:43 code = MRSA by PCR) PM) [facility] [id number] 18:43:00 Test Item Value Reference Range Interpretation Comments MRSA by PCR (test Negative (06/08/16 1:43 code = MRSA by PCR) PM) [facility] [id number] 12:38:00 Test Item Value Reference Range Interpretation Comments Antibody Scrn (test Negative (06/08/16 7:38 code = Antibody Scrn) AM) [facility] [id number] 12:38:00 Test Item Value Reference Range Interpretation Comments ABO/Rh (test code = ABO/Rh) [facility] POS [facility]MzwtfkfFVWQRASKDT9332-48-70 12:38:00 Test Item Value Reference Range Interpretation Comments INR (test code = INR) 1.04 0.85-1.17 [facility] CampusNfwmanyRZUERQPVDI6714-41-27 12:38:00 Test Item Value Reference Range Interpretation Comments PT (test code = PT) 13.8 s 12.0-14.7 [facility] CampusPhlyptzZLOLADMXQZ3855-34-18 12:38:00 Test Item Value Reference Range Interpretation Comments PTT (test code = PTT) 30.6 s 22.9-35.8 [facility] CampusZiljdizSNOFKTRPNK6598-14-27 12:38:00 Test Item Value Reference Range Interpretation Comments Eosinophils # (test code 0.2 See_Comment [A utomated message] The = Eosinophils #) system whic h generated this result tra nsmitted reference range : <=0.5. The reference r lina was not used to int erpret this result as normal/abnormal . [facility] CampusGpysittLSKZFLTQXP2719-58-40 12:38:00 Test Item Value Reference Range Interpretation Comments Eosinophils (test code = 1.6 See_Comment [A utomated message] The Eosinophils) system which ge nerated this result tra nsmitted reference range : <=4.0. The reference r lina was not used to int erpret this result as normal/abnormal . [facility] [id number] 12:38:00 Test Item Value Reference Range Interpretation Comments Antibody Scrn (test Negative (06/08/16 7:38 code = Antibody Scrn) AM) [facility] [id number] 12:38:00 Test Item Value Reference Range Interpretation Comments ABO/Rh (test code = ABO/Rh) O POS [facility] CampusGsiscfhAZNOJTPXUT0825-69-37 12:38:00 Test Item Value Reference Range Interpretation Comments INR (test code = INR) 1.04 0.85-1.17 [facility] CampusGxtqtxdHQCJYBOKEZ0031-92-73 12:38:00 Test Item Value Reference Range Interpretation Comments PT (test code = PT) 13.8 s 12.0-14.7 [facility] CampusYbvhuwvQEEHJTZQVN7377-58-60 12:38:00 Test Item Value Reference Range Interpretation Comments PTT (test code = PTT) 30.6 s 22.9-35.8 [facility] CampusXywxyasOORTVSYPEJ8838-31-88 12:38:00 Test Item Value Reference Range Interpretation Comments Eosinophils # (test code 0.2 See_Comment [A utomated message] The = Eosinophils #) system whic h generated this result tra nsmitted reference range : <=0.5. The reference r lina was not used to int erpret this result as normal/abnormal . [facility] CampusVfdpxptLWTVQLBGAD0553-77-91 12:38:00 Test Item Value Reference Range Interpretation Comments Eosinophils (test code = 1.6 See_Comment [A utomated message] The Eosinophils) system which ge nerated this result tra nsmitted reference range : <=4.0. The reference r lina was not used to int erpret this result as normal/abnormal . [facility] [id number] 12:38:00 Test Item Value Reference Range Interpretation Comments Antibody Scrn (test Negative (06/08/16 7:38 code = Antibody Scrn) AM) [facility] [id number] 12:38:00 Test Item Value Reference Range Interpretation Comments ABO/Rh (test code = ABO/Rh) O POS [facility] CampusXuxndeyWFUXOFEXZZ8195-01-62 12:38:00 Test Item Value Reference Range Interpretation Comments INR (test code = INR) 1.04 0.85-1.17 [facility] CampusZwjofhfAMXUGQEWWG8267-19-32 12:38:00 Test Item Value Reference Range Interpretation Comments PT (test code = PT) 13.8 s 12.0-14.7 [facility] CampusJbhrrdeROKTLSWUIE7714-71-93 12:38:00 Test Item Value Reference Range Interpretation Comments PTT (test code = PTT) 30.6 s 22.9-35.8 [facility] CampusJmyoxvxAEOMSUTRZC1585-29-44 12:38:00 Test Item Value Reference Range Interpretation Comments Eosinophils # (test code 0.2 See_Comment [A utomated message] The = Eosinophils #) system whic h generated this result tra nsmitted reference range : <=0.5. The reference r lina was not used to int erpret this result as normal/abnormal . [facility] CampusPhlpzfwWXTAGSMZJU3757-38-14 12:38:00 Test Item Value Reference Range Interpretation Comments Eosinophils (test code = 1.6 See_Comment [A utomated message] The Eosinophils) system which ge nerated this result tra nsmitted reference range : <=4.0. The reference r lina was not used to int erpret this result as normal/abnormal . [facility] DBRRFII3291-74-58 12:38:00 Test Item Value Reference Range Interpretation Comments Antibody Scrn (test Negative (06/08/16 7:38 code = Antibody Scrn) AM) [facility] [id number] 12:38:00 Test Item Value Reference Range Interpretation Comments ABO/Rh (test code = ABO/Rh) O POS [facility] CampusEftlonaDOWRVTCRPS6447-67-38 12:38:00 Test Item Value Reference Range Interpretation Comments INR (test code = INR) 1.04 0.85-1.17 [facility] CampusRmokcvsXEFFPWUXCH6874-35-51 12:38:00 Test Item Value Reference Range Interpretation Comments PT (test code = PT) 13.8 s 12.0-14.7 [facility] CampusHziejoqMPKKSRQPNC9078-90-85 12:38:00 Test Item Value Reference Range Interpretation Comments PTT (test code = PTT) 30.6 s 22.9-35.8 [facility] CampusFcggdclXNUAXMFJCI9244-99-54 12:38:00 Test Item Value Reference Range Interpretation Comments Eosinophils # (test code 0.2 See_Comment [A utomated message] The = Eosinophils #) system whic h generated this result tra nsmitted reference range : <=0.5. The reference r lina was not used to int erpret this result as normal/abnormal . [facility] CampusBtvtzewVBJVOWZEOS8615-43-77 12:38:00 Test Item Value Reference Range Interpretation Comments Eosinophils (test code = 1.6 See_Comment [A utomated message] The Eosinophils) system which ge nerated this result tra nsmitted reference range : <=4.0. The reference r lina was not used to int erpret this result as normal/abnormal . [facility]2017-04-13 14:42:00 Test Item Value Reference Range Interpretation Comments eGFR (test code = eGFR) 62 [facility]2017-04-13 14:42:00 Test Item Value Reference Range Interpretation Comments Sodium Lvl (test code = Sodium Lvl) 140 135-145 [facility]2017-04-13 14:42:00 Test Item Value Reference Range Interpretation Comments Creatinine Lvl (test code = Creatinine 0.90 0.50-1.40 Lvl) [facility]2017-04-13 14:42:00 Test Item Value Reference Range Interpretation Comments Chloride Lvl (test code = Chloride Lvl) 102 95-109 [facility]2017-04-13 14:42:00 Test Item Value Reference Range Interpretation Comments Potassium Lvl (test code = Potassium 3.6 3.5-5.1 Lvl) [facility]2017-04-13 14:42:00 Test Item Value Reference Range Interpretation Comments CO2 (test code = CO2) 30 24-32 [facility]2017-04-13 14:42:00 Test Item Value Reference Range Interpretation Comments Calcium Lvl (test code = Calcium Lvl) 8.9 8.5-10.5 [facility]2017-04-13 14:42:00 Test Item Value Reference Range Interpretation Comments Glucose Lvl (test code = Glucose Lvl) 185 70-99 [facility]2017-04-13 14:42:00 Test Item Value Reference Range Interpretation Comments BUN (test code = BUN) 20 7-22 [facility]2017-04-13 14:42:00 Test Item Value Reference Range Interpretation Comments AGAP (test code = AGAP) 11.6 10.0-20.0 [facility] CampusKgaqtxqSHDLXZRIZS0667-37-70 14:42:00 Test Item Value Reference Range Interpretation Comments Microcyte (test code = 1+ *ABN*(05/26/16 Microcyte) 9:42 AM) [facility] CampusBbbwpgtLKBOKKCEDS5931-59-86 14:42:00 Test Item Value Reference Range Interpretation Comments Monocytes # (test code 0.5 See_Comment [Aut omated message] The = Monocytes #) system which generated this result tra nsmitted reference range : <=0.8. The reference r lina was not used to int erpret this result as normal/abnormal . [facility] CampusYmlghbqTPCLEBCMNG7749-07-29 14:42:00 Test Item Value Reference Range Interpretation Comments Eosinophils # (test code 0.2 See_Comment [A utomated message] The = Eosinophils #) system whic h generated this result tra nsmitted reference range : <=0.5. The reference r lina was not used to int erpret this result as normal/abnormal . [facility] CampusLjnddojBILGXUEBCW6435-50-35 14:42:00 Test Item Value Reference Range Interpretation Comments Lymphocytes # (test code = Lymphocytes 1.6 1.0-5.5 #) [facility] CampusPenfjmlPQYKUQINCL2406-45-28 14:42:00 Test Item Value Reference Range Interpretation Comments Segs-Bands # (test code = Segs-Bands #) 6.9 1.5-8.1 [facility] CampusCyzvbhgAQEUWBQBNA3536-94-46 14:42:00 Test Item Value Reference Range Interpretation Comments Basophils (test code = 0.4 See_Comment [Aut omated message] The Basophils) system which ge nerated this result tra nsmitted reference range : <=1.0. The reference r lina was not used to int erpret this result as normal/abnormal . [facility] CampusBikidaoVYTTTHWYUH8821-09-92 14:42:00 Test Item Value Reference Range Interpretation Comments Monocytes (test code = Monocytes) 4.9 2.0-12.0 [facility] CampusYetanwdYONFPMJHJV2063-07-40 14:42:00 Test Item Value Reference Range Interpretation Comments Eosinophils (test code = 1.8 See_Comment [A utomated message] The Eosinophils) system which ge nerated this result tra nsmitted reference range : <=4.0. The reference r lina was not used to int erpret this result as normal/abnormal . [facility] CampusTctcwwyOTFIPBLBHH4478-07-42 14:42:00 Test Item Value Reference Range Interpretation Comments Lymphocytes (test code = Lymphocytes) 17.4 20.0-40.0 [facility] CampusIgzhvzzHYTSHHKXGH8562-38-53 14:42:00 Test Item Value Reference Range Interpretation Comments Segs (test code = Segs) 75.5 45.0-75.0 [facility] CampusNynjmigQUSOGBJYXT5552-53-70 14:42:00 Test Item Value Reference Range Interpretation Comments Platelet (test code = Platelet) 169 133-450 [facility] CampusHeabcnhLLUQIFPTJM4340-59-78 14:42:00 Test Item Value Reference Range Interpretation Comments MCH (test code = MCH) 25.9 pg 27.0-31.0 [facility] CampusFjpvwjxWYWHYYHGUH9560-59-40 14:42:00 Test Item Value Reference Range Interpretation Comments MPV (test code = MPV) 9.8 7.4-10.4 [facility] CampusFneqgmaEUJDRVVMZG0306-76-94 14:42:00 Test Item Value Reference Range Interpretation Comments RDW (test code = RDW) 16.2 11.5-14.5 [facility] CampusEsepyrwNPTBYAQNNB5274-21-55 14:42:00 Test Item Value Reference Range Interpretation Comments MCHC (test code = MCHC) 33.0 32.0-36.0 [facility] CampusVxdzheaQUXPWNWTVS3076-61-12 14:42:00 Test Item Value Reference Range Interpretation Comments Hct (test code = Hct) 37.2 36.0-48.0 [facility] CampusHqhpvcoVAZIUCQVKE9903-77-33 14:42:00 Test Item Value Reference Range Interpretation Comments MCV (test code = MCV) 78.3 80.0-98.0 [facility] CampusYlzjstvANPAOSTBOX8950-71-66 14:42:00 Test Item Value Reference Range Interpretation Comments Hgb (test code = Hgb) 12.3 12.0-16.0 [facility] CampusAgoydinCQQATUBYVI4385-59-70 14:42:00 Test Item Value Reference Range Interpretation Comments RBC (test code = RBC) 4.75 4.20-5.40 [facility] CampusDzocswpLCAKPOTGVR4056-49-22 14:42:00 Test Item Value Reference Range Interpretation Comments WBC (test code = WBC) 9.2 3.7-10.4 [facility] CampusAxrwoeyOTREPFQWNL6615-59-28 14:42:00 Test Item Value Reference Range Interpretation Comments PT (test code = PT) 13.8 s 12.0-14.7 [facility] CampusKlgqqfeSWEDPJXAZR4045-95-35 14:42:00 Test Item Value Reference Range Interpretation Comments INR (test code = INR) 1.04 0.85-1.17 [facility] CampusOutfbxwPKNYVOZJMC8557-52-23 14:42:00 Test Item Value Reference Range Interpretation Comments PTT (test code = PTT) 32.1 s 22.9-35.8 [facility]2017-04-13 14:42:00 Test Item Value Reference Range Interpretation Comments eGFR (test code = eGFR) 62 [facility]2017-04-13 14:42:00 Test Item Value Reference Range Interpretation Comments Sodium Lvl (test code = Sodium Lvl) 140 135-145 [facility]2017-04-13 14:42:00 Test Item Value Reference Range Interpretation Comments Creatinine Lvl (test code = Creatinine 0.90 0.50-1.40 Lvl) [facility]2017-04-13 14:42:00 Test Item Value Reference Range Interpretation Comments Chloride Lvl (test code = Chloride Lvl) 102 95-109 [facility]2017-04-13 14:42:00 Test Item Value Reference Range Interpretation Comments Potassium Lvl (test code = Potassium 3.6 3.5-5.1 Lvl) [facility]2017-04-13 14:42:00 Test Item Value Reference Range Interpretation Comments CO2 (test code = CO2) 30 24-32 [facility]2017-04-13 14:42:00 Test Item Value Reference Range Interpretation Comments Calcium Lvl (test code = Calcium Lvl) 8.9 8.5-10.5 [facility]2017-04-13 14:42:00 Test Item Value Reference Range Interpretation Comments Glucose Lvl (test code = Glucose Lvl) 185 70-99 [facility]2017-04-13 14:42:00 Test Item Value Reference Range Interpretation Comments BUN (test code = BUN) 20 7-22 [facility]2017-04-13 14:42:00 Test Item Value Reference Range Interpretation Comments AGAP (test code = AGAP) 11.6 10.0-20.0 [facility] CampusXcstartHJVEHPKLFD7230-20-53 14:42:00 Test Item Value Reference Range Interpretation Comments Microcyte (test code = 1+ *ABN*(05/26/16 Microcyte) 9:42 AM) [facility] CampusXoylnfnMJEPXCKQJO2366-73-77 14:42:00 Test Item Value Reference Range Interpretation Comments Monocytes # (test code 0.5 See_Comment [Aut omated message] The = Monocytes #) system which generated this result tra nsmitted reference range : <=0.8. The reference r lina was not used to int erpret this result as normal/abnormal . [facility] CampusQdlabclPSQFPDFNKU3762-43-68 14:42:00 Test Item Value Reference Range Interpretation Comments Eosinophils # (test code 0.2 See_Comment [A utomated message] The = Eosinophils #) system whic h generated this result tra nsmitted reference range : <=0.5. The reference r lina was not used to int erpret this result as normal/abnormal . [facility] CampusSjeoggdWCIGYKMZHS7122-56-67 14:42:00 Test Item Value Reference Range Interpretation Comments Lymphocytes # (test code = Lymphocytes 1.6 1.0-5.5 #) [facility] CampusYunfiwoYWWYNLTPTG1637-67-52 14:42:00 Test Item Value Reference Range Interpretation Comments Segs-Bands # (test code = Segs-Bands #) 6.9 1.5-8.1 [facility] CampusFvvzkdoIVARITDKAA5505-73-83 14:42:00 Test Item Value Reference Range Interpretation Comments Basophils (test code = 0.4 See_Comment [Aut omated message] The Basophils) system which ge nerated this result tra nsmitted reference range : <=1.0. The reference r lina was not used to int erpret this result as normal/abnormal . [facility] CampusDatxudqGJEFYPNNSF9247-21-71 14:42:00 Test Item Value Reference Range Interpretation Comments Monocytes (test code = Monocytes) 4.9 2.0-12.0 [facility] CampusMmwhaopEBAOYSJQZC9592-55-14 14:42:00 Test Item Value Reference Range Interpretation Comments Eosinophils (test code = 1.8 See_Comment [A utomated message] The Eosinophils) system which ge nerated this result tra nsmitted reference range : <=4.0. The reference r lina was not used to int erpret this result as normal/abnormal . [facility] CampusTigcamwLGEYDHIZTK8749-68-79 14:42:00 Test Item Value Reference Range Interpretation Comments Lymphocytes (test code = Lymphocytes) 17.4 20.0-40.0 [facility] CampusQtkqxqrFOOPIKLTUD9420-69-28 14:42:00 Test Item Value Reference Range Interpretation Comments Segs (test code = Segs) 75.5 45.0-75.0 [facility] CampusZbmuacpAGWRBBXHXZ3181-49-18 14:42:00 Test Item Value Reference Range Interpretation Comments Platelet (test code = Platelet) 169 133-450 [facility] CampusIuhpbaaVADXSQHWYL1278-69-28 14:42:00 Test Item Value Reference Range Interpretation Comments MCH (test code = MCH) 25.9 pg 27.0-31.0 [facility] CampusXlwywqzYISWOYZZTV0608-81-09 14:42:00 Test Item Value Reference Range Interpretation Comments MPV (test code = MPV) 9.8 7.4-10.4 [facility] CampusOpvwktnUDOLQZWWKK4764-45-88 14:42:00 Test Item Value Reference Range Interpretation Comments RDW (test code = RDW) 16.2 11.5-14.5 [facility] CampusOvtmtcxUFPPUQCPJK1472-79-38 14:42:00 Test Item Value Reference Range Interpretation Comments MCHC (test code = MCHC) 33.0 32.0-36.0 [facility] CampusEbwyinzCKRHTJGOWC4497-05-84 14:42:00 Test Item Value Reference Range Interpretation Comments Hct (test code = Hct) 37.2 36.0-48.0 [facility] CampusHtyqnsuYPSZHUROAL4749-73-58 14:42:00 Test Item Value Reference Range Interpretation Comments MCV (test code = MCV) 78.3 80.0-98.0 [facility] CampusYjseanrQZQXLJIRWL8055-26-94 14:42:00 Test Item Value Reference Range Interpretation Comments Hgb (test code = Hgb) 12.3 12.0-16.0 [facility] CampusUndeyawKJYNOJCBIS6898-63-69 14:42:00 Test Item Value Reference Range Interpretation Comments RBC (test code = RBC) 4.75 4.20-5.40 [facility] CampusQicooamTGVXOXUPMZ2999-12-12 14:42:00 Test Item Value Reference Range Interpretation Comments WBC (test code = WBC) 9.2 3.7-10.4 [facility] CampusZzgyhfoNTQEFTQYIA1620-51-83 14:42:00 Test Item Value Reference Range Interpretation Comments PT (test code = PT) 13.8 s 12.0-14.7 [facility] CampusZzqdcmuYHVIWLSOAT2349-66-25 14:42:00 Test Item Value Reference Range Interpretation Comments INR (test code = INR) 1.04 0.85-1.17 [facility] CampusGofhbrzIWVONZADTQ8008-81-11 14:42:00 Test Item Value Reference Range Interpretation Comments PTT (test code = PTT) 32.1 s 22.9-35.8 [facility]2017-04-13 14:42:00 Test Item Value Reference Range Interpretation Comments eGFR (test code = eGFR) 62 [facility]2017-04-13 14:42:00 Test Item Value Reference Range Interpretation Comments Sodium Lvl (test code = Sodium Lvl) 140 135-145 [facility]2017-04-13 14:42:00 Test Item Value Reference Range Interpretation Comments Creatinine Lvl (test code = Creatinine 0.90 0.50-1.40 Lvl) [facility]2017-04-13 14:42:00 Test Item Value Reference Range Interpretation Comments Chloride Lvl (test code = Chloride Lvl) 102 95-109 [facility]2017-04-13 14:42:00 Test Item Value Reference Range Interpretation Comments Potassium Lvl (test code = Potassium 3.6 3.5-5.1 Lvl) [facility]2017-04-13 14:42:00 Test Item Value Reference Range Interpretation Comments CO2 (test code = CO2) 30 24-32 [facility]2017-04-13 14:42:00 Test Item Value Reference Range Interpretation Comments Calcium Lvl (test code = Calcium Lvl) 8.9 8.5-10.5 [facility]2017-04-13 14:42:00 Test Item Value Reference Range Interpretation Comments Glucose Lvl (test code = Glucose Lvl) 185 70-99 [facility]2017-04-13 14:42:00 Test Item Value Reference Range Interpretation Comments BUN (test code = BUN) 20 7-22 [facility]2017-04-13 14:42:00 Test Item Value Reference Range Interpretation Comments AGAP (test code = AGAP) 11.6 10.0-20.0 [facility] CampusGrdkdqpRFUEXSFGQB3140-83-96 14:42:00 Test Item Value Reference Range Interpretation Comments Microcyte (test code = 1+ *ABN*(05/26/16 Microcyte) 9:42 AM) [facility] CampusWsufxktSILSFGFEAH6768-62-11 14:42:00 Test Item Value Reference Range Interpretation Comments Monocytes # (test code 0.5 See_Comment [Aut omated message] The = Monocytes #) system which generated this result tra nsmitted reference range : <=0.8. The reference r lina was not used to int erpret this result as normal/abnormal . [facility] CampusPghjfzqMNNMMTUEQG3997-49-78 14:42:00 Test Item Value Reference Range Interpretation Comments Eosinophils # (test code 0.2 See_Comment [A utomated message] The = Eosinophils #) system whic h generated this result tra nsmitted reference range : <=0.5. The reference r lina was not used to int erpret this result as normal/abnormal . [facility] CampusArvebzwNZEEHZGDZI9998-85-27 14:42:00 Test Item Value Reference Range Interpretation Comments Lymphocytes # (test code = Lymphocytes 1.6 1.0-5.5 #) [facility] CampusAdzbbyoAOBPEYBETS4448-56-83 14:42:00 Test Item Value Reference Range Interpretation Comments Segs-Bands # (test code = Segs-Bands #) 6.9 1.5-8.1 [facility] CampusFjfzmqyIDLDHCAOTV7026-97-60 14:42:00 Test Item Value Reference Range Interpretation Comments Basophils (test code = 0.4 See_Comment [Aut omated message] The Basophils) system which ge nerated this result tra nsmitted reference range : <=1.0. The reference r lina was not used to int erpret this result as normal/abnormal . [facility] CampusRkexvchNSUCVVLBQW2863-46-12 14:42:00 Test Item Value Reference Range Interpretation Comments Monocytes (test code = Monocytes) 4.9 2.0-12.0 [facility] CampusMrqnpivYEKTFMJNPZ5940-61-34 14:42:00 Test Item Value Reference Range Interpretation Comments Eosinophils (test code = 1.8 See_Comment [A utomated message] The Eosinophils) system which ge nerated this result tra nsmitted reference range : <=4.0. The reference r lina was not used to int erpret this result as normal/abnormal . [facility] CampusLrsqgmrUOZTHOWMCT9136-31-83 14:42:00 Test Item Value Reference Range Interpretation Comments Lymphocytes (test code = Lymphocytes) 17.4 20.0-40.0 [facility] CampusXyxyoaiXJTPWEFWJM6176-11-41 14:42:00 Test Item Value Reference Range Interpretation Comments Segs (test code = Segs) 75.5 45.0-75.0 [facility] CampusYvpviedNVOULUQDLZ9083-49-10 14:42:00 Test Item Value Reference Range Interpretation Comments Platelet (test code = Platelet) 169 133-450 [facility] CampusElmothhIOQPIXIYVK2461-01-92 14:42:00 Test Item Value Reference Range Interpretation Comments MCH (test code = MCH) 25.9 pg 27.0-31.0 [facility] CampusCmonnkpFSJTGAWEPE0705-49-53 14:42:00 Test Item Value Reference Range Interpretation Comments MPV (test code = MPV) 9.8 7.4-10.4 [facility] CampusFnittxfHBWLLWKXZE7136-29-58 14:42:00 Test Item Value Reference Range Interpretation Comments RDW (test code = RDW) 16.2 11.5-14.5 [facility] CampusDktxuccCVUXLKQHSO0101-78-13 14:42:00 Test Item Value Reference Range Interpretation Comments MCHC (test code = MCHC) 33.0 32.0-36.0 [facility] CampusWlnoveeALCRSTCWTT1739-22-71 14:42:00 Test Item Value Reference Range Interpretation Comments Hct (test code = Hct) 37.2 36.0-48.0 [facility] CampusZlwentsPOKXUTBBZZ7366-32-62 14:42:00 Test Item Value Reference Range Interpretation Comments MCV (test code = MCV) 78.3 80.0-98.0 [facility] [facility]LDGNIAQWGH0829-97-57 14:42:00 Test Item Value Reference Range Interpretation Comments Hgb (test code = Hgb) 12.3 12.0-16.0 [facility]IgjewdcOPNPQOUSJF9747-43-09 14:42:00 Test Item Value Reference Range Interpretation Comments RBC (test code = RBC) 4.75 4.20-5.40 [facility] CampusEbkdoogKNQMSYLABF5583-45-77 14:42:00 Test Item Value Reference Range Interpretation Comments WBC (test code = WBC) 9.2 3.7-10.4 [facility] CampusPyqbjomNZOHBMXMWU4431-39-67 14:42:00 Test Item Value Reference Range Interpretation Comments PT (test code = PT) 13.8 s 12.0-14.7 [facility] CampusKsrfykwJFBTNZSSQI9426-40-46 14:42:00 Test Item Value Reference Range Interpretation Comments INR (test code = INR) 1.04 0.85-1.17 [facility] CampusPxyrlsaYQEZLWMEIB1695-15-93 14:42:00 Test Item Value Reference Range Interpretation Comments PTT (test code = PTT) 32.1 s 22.9-35.8 [facility]2017-04-13 14:42:00 Test Item Value Reference Range Interpretation Comments eGFR (test code = eGFR) 62 [facility]2017-04-13 14:42:00 Test Item Value Reference Range Interpretation Comments Sodium Lvl (test code = Sodium Lvl) 140 135-145 [facility]2017-04-13 14:42:00 Test Item Value Reference Range Interpretation Comments Creatinine Lvl (test code = Creatinine 0.90 0.50-1.40 Lvl) [facility]2017-04-13 14:42:00 Test Item Value Reference Range Interpretation Comments Chloride Lvl (test code = Chloride Lvl) 102 95-109 [facility]2017-04-13 14:42:00 Test Item Value Reference Range Interpretation Comments Potassium Lvl (test code = Potassium 3.6 3.5-5.1 Lvl) [facility]2017-04-13 14:42:00 Test Item Value Reference Range Interpretation Comments CO2 (test code = CO2) 30 24-32 [facility]2017-04-13 14:42:00 Test Item Value Reference Range Interpretation Comments Calcium Lvl (test code = Calcium Lvl) 8.9 8.5-10.5 [facility]2017-04-13 14:42:00 Test Item Value Reference Range Interpretation Comments Glucose Lvl (test code = Glucose Lvl) 185 70-99 [facility]2017-04-13 14:42:00 Test Item Value Reference Range Interpretation Comments BUN (test code = BUN) 20 7-22 [facility]2017-04-13 14:42:00 Test Item Value Reference Range Interpretation Comments AGAP (test code = AGAP) 11.6 10.0-20.0 [facility] CampusIsrwdsjOGSCRYPLMN1257-41-25 14:42:00 Test Item Value Reference Range Interpretation Comments Microcyte (test code = 1+ *ABN*(05/26/16 Microcyte) 9:42 AM) [facility] CampusEabmqbhXCDFLIJRZD2630-40-03 14:42:00 Test Item Value Reference Range Interpretation Comments Monocytes # (test code 0.5 See_Comment [Aut omated message] The = Monocytes #) system which generated this result tra nsmitted reference range : <=0.8. The reference r lina was not used to int erpret this result as normal/abnormal . [facility] CampusFclpvtuOVWZWMHRET0669-70-99 14:42:00 Test Item Value Reference Range Interpretation Comments Eosinophils # (test code 0.2 See_Comment [A utomated message] The = Eosinophils #) system whic h generated this result tra nsmitted reference range : <=0.5. The reference r lina was not used to int erpret this result as normal/abnormal . [facility] CampusMudovhqARMJXDKOIQ4492-45-63 14:42:00 Test Item Value Reference Range Interpretation Comments Lymphocytes # (test code = Lymphocytes 1.6 1.0-5.5 #) [facility] CampusKdbnczeGZLBETFNWI6134-52-52 14:42:00 Test Item Value Reference Range Interpretation Comments Segs-Bands # (test code = Segs-Bands #) 6.9 1.5-8.1 [facility] CampusNsvbazfMJRAOMVPSB7999-97-57 14:42:00 Test Item Value Reference Range Interpretation Comments Basophils (test code = 0.4 See_Comment [Aut omated message] The Basophils) system which ge nerated this result tra nsmitted reference range : <=1.0. The reference r lina was not used to int erpret this result as normal/abnormal . [facility] CampusKamthxcPISNOGUULM7493-45-43 14:42:00 Test Item Value Reference Range Interpretation Comments Monocytes (test code = Monocytes) 4.9 2.0-12.0 [facility] CampusKrxtaioVYJXGLDNVF5251-46-09 14:42:00 Test Item Value Reference Range Interpretation Comments Eosinophils (test code = 1.8 See_Comment [A utomated message] The Eosinophils) system which ge nerated this result tra nsmitted reference range : <=4.0. The reference r lina was not used to int erpret this result as normal/abnormal . [facility] CampusLorgtxtSYALYWUNSO2076-76-38 14:42:00 Test Item Value Reference Range Interpretation Comments Lymphocytes (test code = Lymphocytes) 17.4 20.0-40.0 [facility] CampusVkcjvxvWUXPGVCDIA5566-54-86 14:42:00 Test Item Value Reference Range Interpretation Comments Segs (test code = Segs) 75.5 45.0-75.0 [facility] CampusRztsmvbFPBZCOTOKY9983-87-65 14:42:00 Test Item Value Reference Range Interpretation Comments Platelet (test code = Platelet) 169 133-450 [facility] CampusIcohnuwAXOKRMQOZK3378-69-92 14:42:00 Test Item Value Reference Range Interpretation Comments MCH (test code = MCH) 25.9 pg 27.0-31.0 [facility] CampusEpzlnabZKKLXFQDFV9738-93-44 14:42:00 Test Item Value Reference Range Interpretation Comments MPV (test code = MPV) 9.8 7.4-10.4 [facility] CampusJevljoaGSXNLLQTBB4261-91-62 14:42:00 Test Item Value Reference Range Interpretation Comments RDW (test code = RDW) 16.2 11.5-14.5 [facility] CampusEtzeqwpERHWUHQDMB5112-97-26 14:42:00 Test Item Value Reference Range Interpretation Comments MCHC (test code = MCHC) 33.0 32.0-36.0 [facility] CampusFglvhioDAYSJXPFSL2064-87-51 14:42:00 Test Item Value Reference Range Interpretation Comments Hct (test code = Hct) 37.2 36.0-48.0 [facility] CampusBmwkmbsYTKKMGSRAE0722-78-53 14:42:00 Test Item Value Reference Range Interpretation Comments MCV (test code = MCV) 78.3 80.0-98.0 [facility] CampusMtdrrxfYNWGEUDERE8567-11-51 14:42:00 Test Item Value Reference Range Interpretation Comments Hgb (test code = Hgb) 12.3 12.0-16.0 [facility] CampusQcumddhAMLNGMDIHU4467-64-94 14:42:00 Test Item Value Reference Range Interpretation Comments RBC (test code = RBC) 4.75 4.20-5.40 [facility] CampusEqjenlpBBPBMEWZHS7781-77-86 14:42:00 Test Item Value Reference Range Interpretation Comments WBC (test code = WBC) 9.2 3.7-10.4 [facility] CampusMktagvlSCJLMFTEDS5928-82-89 14:42:00 Test Item Value Reference Range Interpretation Comments PT (test code = PT) 13.8 s 12.0-14.7 [facility] CampusIwmqgyaNTQXVWXOWW1017-04-76 14:42:00 Test Item Value Reference Range Interpretation Comments INR (test code = INR) 1.04 0.85-1.17 [facility] CampusBeaiyaoAYVFVBBNNI4885-71-33 14:42:00 Test Item Value Reference Range Interpretation Comments PTT (test code = PTT) 32.1 s 22.9-35.8 [facility] GLUCOSE TOUQBKJ5840-96-81 20:21:00 Test Item Value Reference Range Interpretation Comments Gluc POC Lifscn (test code = Gluc POC 186 70-99 H Lifscn) [facility] GLUCOSE HDMXJVE8923-52-44 20:21:00 Test Item Value Reference Range Interpretation Comments Gluc POC Lifscn (test code = Gluc POC 186 70-99 H Lifscn) [facility] GLUCOSE [id number] 20:21:00 Test Item Value Reference Range Interpretation Comments Gluc POC Lifscn (test code = Gluc POC 186 70-99 H Lifscn) [facility] GLUCOSE [id number] 20:21:00 Test Item Value Reference Range Interpretation Comments Gluc POC Lifscn (test code = Gluc POC 186 70-99 H Lifscn) [facility] GLUCOSE [id number] 16:28:00 Test Item Value Reference Range Interpretation Comments Gluc POC Lifscn (test code = Gluc POC 219 70-99 H Lifscn) [facility] GLUCOSE [id number] 16:28:00 Test Item Value Reference Range Interpretation Comments Gluc POC Lifscn (test code = Gluc POC 219 70-99 H Lifscn) [facility] GLUCOSE [id number] 16:28:00 Test Item Value Reference Range Interpretation Comments Gluc POC Lifscn (test code = Gluc POC 219 70-99 H Lifscn) [facility] GLUCOSE [id number] 16:28:00 Test Item Value Reference Range Interpretation Comments Gluc POC Lifscn (test code = Gluc POC 219 70-99 H Lifscn) [facility] GLUCOSE [id number] 11:13:00 Test Item Value Reference Range Interpretation Comments Gluc POC Lifscn (test code = Gluc POC 201 70-99 H Lifscn) [facility] GLUCOSE [id number] 11:13:00 Test Item Value Reference Range Interpretation Comments Comment1 (test code = Comment1) Notify RN/ [facility] GLUCOSE [id number] 11:13:00 Test Item Value Reference Range Interpretation Comments Gluc POC Lifscn (test code = Gluc POC 201 70-99 H Lifscn) [facility] GLUCOSE [id number] 11:13:00 Test Item Value Reference Range Interpretation Comments Comment1 (test code = Comment1) Notify RN/ [facility] GLUCOSE [id number] 11:13:00 Test Item Value Reference Range Interpretation Comments Gluc POC Lifscn (test code = Gluc POC 201 70-99 H Lifscn) [facility] GLUCOSE [id number] 11:13:00 Test Item Value Reference Range Interpretation Comments Comment1 (test code = Comment1) Notify RN/ [facility] GLUCOSE [id number] 11:13:00 Test Item Value Reference Range Interpretation Comments Gluc POC Lifscn (test code = Gluc POC 201 70-99 H Lifscn) [facility] GLUCOSE [id number] 11:13:00 Test Item Value Reference Range Interpretation Comments Comment1 (test code = Comment1) Notify RN/ [facility] GLUCOSE [id number] 02:20:00 Test Item Value Reference Range Interpretation Comments Comment1 (test code = Comment1) Notify RN/ [facility] GLUCOSE [id number] 02:20:00 Test Item Value Reference Range Interpretation Comments Comment1 (test code = Comment1) Notify RN/ [facility] GLUCOSE KKJSMCT1315-56-86 02:20:00 Test Item Value Reference Range Interpretation Comments Comment1 (test code = Comment1) Notify RN/ [facility] GLUCOSE QGJVRNL3510-98-07 02:20:00 Test Item Value Reference Range Interpretation Comments Comment1 (test code = Comment1) Notify RN/ [facility] GLUCOSE [id number] 20:55:00 Test Item Value Reference Range Interpretation Comments Comment1 (test code = Comment1) Notify RN/ [facility] GLUCOSE [id number] 20:55:00 Test Item Value Reference Range Interpretation Comments Comment1 (test code = Comment1) Notify RN/ [facility] GLUCOSE WPUVJZN0876-42-56 20:55:00 Test Item Value Reference Range Interpretation Comments Comment1 (test code = Comment1) Notify RN/ [facility] GLUCOSE LHJRMWK5645-21-96 20:55:00 Test Item Value Reference Range Interpretation Comments Comment1 (test code = Comment1) [facility]MD[facility]IZ9800[facility] 10:31:00 Test Item Value Reference Range Interpretation Comments Sodium Lvl (test code = Sodium Lvl) 144 135-145 [facility]LhdidglGFBNGKSMF2538-10-21 10:31:00 Test Item Value Reference Range Interpretation Comments Chloride Lvl (test code = Chloride Lvl) 105 95-109 [facility] CenterAeaudonHZTJGRKBJ2990-25-02 10:31:00 Test Item Value Reference Range Interpretation Comments Potassium Lvl (test code = Potassium 3.6 3.5-5.1 N Lvl) [facility]UwjapnoNTXQLUHCC9784-31-83 10:31:00 Test Item Value Reference Range Interpretation Comments eGFR (test code = eGFR) 96 [facility] CenterBcllgftUKPGZALEN9747-96-65 10:31:00 Test Item Value Reference Range Interpretation Comments Creatinine Lvl (test code = Creatinine 0.5 0.5-1.4 N Lvl) [facility] CenterMufmllcRVFYBFRUD2644-33-69 10:31:00 Test Item Value Reference Range Interpretation Comments CO2 (test code = CO2) 28 24-32 [facility] CenterHbdpvkcUVVUSZATE3265-88-89 10:31:00 Test Item Value Reference Range Interpretation Comments Calcium Lvl (test code = Calcium Lvl) 7.8 8.5-10.5 L [facility] CenterXdsgexbVPINCZZEV4385-20-04 10:31:00 Test Item Value Reference Range Interpretation Comments BUN (test code = BUN) 14 7-22 [facility] CenterChjjcbdWDOSHSPOD0729-24-74 10:31:00 Test Item Value Reference Range Interpretation Comments Glucose Lvl (test code = Glucose Lvl) 118 70-99 [facility] CenterZsshvmyOELNABTVA8976-75-00 10:31:00 Test Item Value Reference Range Interpretation Comments AGAP (test code = AGAP) 14.6 10.0-20.0 N [facility] CampusJytioneOYJFNALDJT7335-64-21 10:31:00 Test Item Value Reference Range Interpretation Comments Platelet (test code = Platelet) 183 133-450 N [facility] CampusKjoihrkRAMEYCBTKF5177-51-14 10:31:00 Test Item Value Reference Range Interpretation Comments MCHC (test code = MCHC) 32.4 32.0-36.0 N [facility] CampusPefmbnjKSYXYTHFUU9167-17-27 10:31:00 Test Item Value Reference Range Interpretation Comments RDW (test code = RDW) 15.7 11.5-14.5 H [facility] CampusJjjbogdGNXGKMJPPW5758-17-08 10:31:00 Test Item Value Reference Range Interpretation Comments MCH (test code = MCH) 26.8 pg 27.0-31.0 L [facility] CampusOjotypuJXINAMDRDS1541-88-92 10:31:00 Test Item Value Reference Range Interpretation Comments MCV (test code = MCV) 82.8 81.0-99.0 N [facility] CampusNekbuxrAAGTTOGJIZ0647-99-55 10:31:00 Test Item Value Reference Range Interpretation Comments MPV (test code = MPV) 9.9 7.4-10.4 N [facility] CampusFuclneqWCPSZDCSVY6278-21-41 10:31:00 Test Item Value Reference Range Interpretation Comments Hct (test code = Hct) 29.4 36.0-48.0 L [facility] CampusMtwbtdzRCLSPLFCAY6936-83-35 10:31:00 Test Item Value Reference Range Interpretation Comments Hgb (test code = Hgb) 9.5 12.0-16.0 L [facility] CampusHjygcvzFKVLHOHSTW6329-88-73 10:31:00 Test Item Value Reference Range Interpretation Comments RBC (test code = RBC) 3.55 4.20-5.40 L [facility] CampusOaobwdpVGMPUELJFH1724-55-70 10:31:00 Test Item Value Reference Range Interpretation Comments WBC (test code = WBC) 8.9 3.7-10.4 N [facility] CampusQbfrszvCBKKIWGSJR8207-07-12 10:31:00 Test Item Value Reference Range Interpretation Comments Segs-Bands # (test code = Segs-Bands #) 7.2 1.5-8.1 N [facility] CampusKxddqouKBYCSAOPCK3918-93-86 10:31:00 Test Item Value Reference Range Interpretation Comments Basophils (test code = 0.1 See_Comment N [Aut omated message] The Basophils) system which ge nerated this result tra nsmitted reference range : <=1.0. The reference r lina was not used to int erpret this result as normal/abnormal . [facility] CampusAexknlnEQCOYNCAZL3025-16-13 10:31:00 Test Item Value Reference Range Interpretation Comments Basophils # (test code 0.0 See_Comment N [Aut omated message] The = Basophils #) system which generated this result tra nsmitted reference range : <=0.2. The reference r lina was not used to int erpret this result as normal/abnormal . [facility] CampusFbdizavCVLIBSJVAH4794-74-44 10:31:00 Test Item Value Reference Range Interpretation Comments Eosinophils # (test code 0.4 See_Comment N [A utomated message] The = Eosinophils #) system wh h generated this result tra nsmitted reference range : <=0.5. The reference r lina was not used to int erpret this result as normal/abnormal . [facility] CampusJmrlzgmKQIKNAMIQS3183-28-07 10:31:00 Test Item Value Reference Range Interpretation Comments Monocytes # (test code 0.4 See_Comment N [Aut omated message] The = Monocytes #) system which generated this result tra nsmitted reference range : <=0.8. The reference r lina was not used to int erpret this result as normal/abnormal . [facility] CampusJbcvnstSSHAJBEUPK1295-65-49 10:31:00 Test Item Value Reference Range Interpretation Comments Lymphocytes # (test code = Lymphocytes 0.8 1.0-5.5 L #) [facility] CampusAounqlxHYZCKBIJDE1041-21-44 10:31:00 Test Item Value Reference Range Interpretation Comments Eosinophils (test code = 4.8 See_Comment H [A utomated message] The Eosinophils) system which ge nerated this result tra nsmitted reference range : <=4.0. The reference r lnia was not used to int erpret this result as normal/abnormal . [facility] CampusCpnsajqSNATAYIGYJ0426-78-90 10:31:00 Test Item Value Reference Range Interpretation Comments Monocytes (test code = Monocytes) 4.8 2.0-12.0 N [facility] CampusZimgrcoZMORAIOQKL2722-85-65 10:31:00 Test Item Value Reference Range Interpretation Comments Lymphocytes (test code = Lymphocytes) 8.9 20.0-40.0 L [facility] CampusDthpxedITAZJHBHED6410-44-89 10:31:00 Test Item Value Reference Range Interpretation Comments Segs (test code = Segs) 81.4 45.0-75.0 [facility] CenterMpyagoxXYPZIITYB7543-35-51 10:31:00 Test Item Value Reference Range Interpretation Comments Sodium Lvl (test code = Sodium Lvl) 144 135-145 N [facility] CenterQxfkweeJLVPSQXNY5353-02-74 10:31:00 Test Item Value Reference Range Interpretation Comments Chloride Lvl (test code = Chloride Lvl) 105 95-109 N [facility] CenterEwzxwqiPTCGDJYKK1815-38-43 10:31:00 Test Item Value Reference Range Interpretation Comments Potassium Lvl (test code = Potassium 3.6 3.5-5.1 N Lvl) [facility] CenterDpifyjfWHHJDTJPO6221-90-19 10:31:00 Test Item Value Reference Range Interpretation Comments eGFR (test code = eGFR) 96 [facility] CenterRousnzbSBMJEYWLP9393-91-40 10:31:00 Test Item Value Reference Range Interpretation Comments Creatinine Lvl (test code = Creatinine 0.5 0.5-1.4 N Lvl) [facility] CenterTzbtgyyBMRKQMCYV4905-95-76 10:31:00 Test Item Value Reference Range Interpretation Comments CO2 (test code = CO2) 28 24-32 N [facility] CenterPdcahqbOJFRMJCFZ3805-71-85 10:31:00 Test Item Value Reference Range Interpretation Comments Calcium Lvl (test code = Calcium Lvl) 7.8 8.5-10.5 L [facility] CenterVyjqqynIQKBTRRFS3752-35-37 10:31:00 Test Item Value Reference Range Interpretation Comments BUN (test code = BUN) 14 7-22 N [facility] CenterTayajyaRGSFSNWNH0549-72-79 10:31:00 Test Item Value Reference Range Interpretation Comments Glucose Lvl (test code = Glucose Lvl) 118 70-99 [facility] CenterVvaqywxHGOUINEGK3942-66-32 10:31:00 Test Item Value Reference Range Interpretation Comments AGAP (test code = AGAP) 14.6 10.0-20.0 N [facility] CampusDklmzdcRARMOFELQZ3656-58-13 10:31:00 Test Item Value Reference Range Interpretation Comments Platelet (test code = Platelet) 183 133-450 N [facility] CampusRbsaodjWTMTCZIMEC2370-03-41 10:31:00 Test Item Value Reference Range Interpretation Comments MCHC (test code = MCHC) 32.4 32.0-36.0 N [facility] CampusLlrjnwdCUROXGSLKQ9317-24-05 10:31:00 Test Item Value Reference Range Interpretation Comments RDW (test code = RDW) 15.7 11.5-14.5 H [facility] CampusKnfoawkZIZZSIXPRN7748-36-37 10:31:00 Test Item Value Reference Range Interpretation Comments MCH (test code = MCH) 26.8 pg 27.0-31.0 L [facility] CampusDphxtatTMXYVQFQSU7932-25-09 10:31:00 Test Item Value Reference Range Interpretation Comments MCV (test code = MCV) 82.8 81.0-99.0 N [facility] CampusGaitrpmJWAVUZWNVO0974-22-91 10:31:00 Test Item Value Reference Range Interpretation Comments MPV (test code = MPV) 9.9 7.4-10.4 N [facility] CampusUnxrutjNZZJONWIYB5962-01-24 10:31:00 Test Item Value Reference Range Interpretation Comments Hct (test code = Hct) 29.4 36.0-48.0 L [facility] CampusPdoynatRHRQOVSEZW4450-30-62 10:31:00 Test Item Value Reference Range Interpretation Comments Hgb (test code = Hgb) 9.5 12.0-16.0 L [facility] CampusFxalostHAQVMFNHFQ9665-10-10 10:31:00 Test Item Value Reference Range Interpretation Comments RBC (test code = RBC) 3.55 4.20-5.40 L [facility] CampusGqjusbgQGMCYLIPNL8266-57-23 10:31:00 Test Item Value Reference Range Interpretation Comments WBC (test code = WBC) 8.9 3.7-10.4 N [facility] CampusZbyfzqrAYKDLDFDOX4903-22-74 10:31:00 Test Item Value Reference Range Interpretation Comments Segs-Bands # (test code = Segs-Bands #) 7.2 1.5-8.1 N [facility] CampusRypfqkaIHIAJGNFFF3236-76-85 10:31:00 Test Item Value Reference Range Interpretation Comments Basophils (test code = 0.1 See_Comment N [Aut omated message] The Basophils) system which ge nerated this result tra nsmitted reference range : <=1.0. The reference r lina was not used to int erpret this result as normal/abnormal . [facility] CampusDakhvobXOLXHUZBGY6262-65-11 10:31:00 Test Item Value Reference Range Interpretation Comments Basophils # (test code 0.0 See_Comment N [Aut omated message] The = Basophils #) system which generated this result tra nsmitted reference range : <=0.2. The reference r lina was not used to int erpret this result as normal/abnormal . [facility] CampusZicwvrfATMBZDORHA9970-29-53 10:31:00 Test Item Value Reference Range Interpretation Comments Eosinophils # (test code 0.4 See_Comment N [A utomated message] The = Eosinophils #) system whic h generated this result tra nsmitted reference range : <=0.5. The reference r lina was not used to int erpret this result as normal/abnormal . [facility] CampusWsqtvkcXJEUZISVYL5172-38-86 10:31:00 Test Item Value Reference Range Interpretation Comments Monocytes # (test code 0.4 See_Comment N [Aut omated message] The = Monocytes #) system which generated this result tra nsmitted reference range : <=0.8. The reference r lina was not used to int erpret this result as normal/abnormal . [facility] CampusAlsmxyuAVSCGYQQSF1166-50-32 10:31:00 Test Item Value Reference Range Interpretation Comments Lymphocytes # (test code = Lymphocytes 0.8 1.0-5.5 L #) [facility] CampusGwrdsxcMXRHIYPMAA4175-03-49 10:31:00 Test Item Value Reference Range Interpretation Comments Eosinophils (test code = 4.8 See_Comment H [A utomated message] The Eosinophils) system which ge nerated this result tra nsmitted reference range : <=4.0. The reference r lina was not used to int erpret this result as normal/abnormal . [facility] CampusQtefvbjGLQZIKDUVO5053-94-22 10:31:00 Test Item Value Reference Range Interpretation Comments Monocytes (test code = Monocytes) 4.8 2.0-12.0 N [facility] CampusMwarzqxVHOAUVHWLT4770-46-41 10:31:00 Test Item Value Reference Range Interpretation Comments Lymphocytes (test code = Lymphocytes) 8.9 20.0-40.0 L [facility] CampusRnvgnzoEFPRNARHVY0169-01-28 10:31:00 Test Item Value Reference Range Interpretation Comments Segs (test code = Segs) 81.4 45.0-75.0 [facility]AokrcstGTRJFCLAK9667-45-57 10:31:00 Test Item Value Reference Range Interpretation Comments Sodium Lvl (test code = Sodium Lvl) 144 135-145 N [facility] CenterQszftxgHNIISYPEI4021-86-52 10:31:00 Test Item Value Reference Range Interpretation Comments Chloride Lvl (test code = Chloride Lvl) 105 95-109 N [facility] CenterIzbrfemWIKLYMVCE0816-86-67 10:31:00 Test Item Value Reference Range Interpretation Comments Potassium Lvl (test code = Potassium 3.6 3.5-5.1 N Lvl) [facility] CenterVxsiuxyCYTOUINQS9933-73-49 10:31:00 Test Item Value Reference Range Interpretation Comments eGFR (test code = eGFR) 96 [facility]HomgbtoENTDWDDLR7030-93-47 10:31:00 Test Item Value Reference Range Interpretation Comments Creatinine Lvl (test code = Creatinine 0.5 0.5-1.4 N Lvl) [facility] CenterMywxfnbEKLGRLIOT1991-97-24 10:31:00 Test Item Value Reference Range Interpretation Comments CO2 (test code = CO2) 28 24-32 N [facility] CenterFtgyoboPLBSNTNSL1693-59-18 10:31:00 Test Item Value Reference Range Interpretation Comments Calcium Lvl (test code = Calcium Lvl) 7.8 8.5-10.5 L [facility] CenterZhgausiKNGWCQCLM1645-56-62 10:31:00 Test Item Value Reference Range Interpretation Comments BUN (test code = BUN) 14 7-22 N [facility] CenterXlyuhlyCIOXVWMJT6087-12-16 10:31:00 Test Item Value Reference Range Interpretation Comments Glucose Lvl (test code = Glucose Lvl) 118 70-99 H [facility] CenterXpduluaRRRQSSSGP7278-76-78 10:31:00 Test Item Value Reference Range Interpretation Comments AGAP (test code = AGAP) 14.6 10.0-20.0 N [facility] CampusVgvhtxgVTYSJBWBYS2871-30-16 10:31:00 Test Item Value Reference Range Interpretation Comments Platelet (test code = Platelet) 183 133-450 N [facility] CampusXujtrqbQXCYBDRKKL2919-95-45 10:31:00 Test Item Value Reference Range Interpretation Comments MCHC (test code = MCHC) 32.4 32.0-36.0 N [facility] CampusOdnxtpuKRCESMEZNX6417-31-96 10:31:00 Test Item Value Reference Range Interpretation Comments RDW (test code = RDW) 15.7 11.5-14.5 H [facility] CampusIndowefFGKLFAIKYH9503-47-18 10:31:00 Test Item Value Reference Range Interpretation Comments MCH (test code = MCH) 26.8 pg 27.0-31.0 L [facility] CampusAlcfcmpCNYIQUOAZD6239-17-39 10:31:00 Test Item Value Reference Range Interpretation Comments MCV (test code = MCV) 82.8 81.0-99.0 N [facility] CampusRgjlcvpNWVNGHIFXF9800-94-03 10:31:00 Test Item Value Reference Range Interpretation Comments MPV (test code = MPV) 9.9 7.4-10.4 N [facility] CampusQwaxoxiGIMPWOWTAN6071-11-28 10:31:00 Test Item Value Reference Range Interpretation Comments Hct (test code = Hct) 29.4 36.0-48.0 L [facility] CampusZlyypfuGPJXULSKQI3675-25-91 10:31:00 Test Item Value Reference Range Interpretation Comments Hgb (test code = Hgb) 9.5 12.0-16.0 L [facility] CampusMspkzitEQXVDHJBYA2279-38-46 10:31:00 Test Item Value Reference Range Interpretation Comments RBC (test code = RBC) 3.55 4.20-5.40 L [facility] CampusZavwfzzYIDZSEIBFX2328-78-99 10:31:00 Test Item Value Reference Range Interpretation Comments WBC (test code = WBC) 8.9 3.7-10.4 N [facility] CampusKerpchoLLSFCQLXPG9909-00-31 10:31:00 Test Item Value Reference Range Interpretation Comments Segs-Bands # (test code = Segs-Bands #) 7.2 1.5-8.1 N [facility] CampusGkozhbkNDWAQLJOQN1037-27-81 10:31:00 Test Item Value Reference Range Interpretation Comments Basophils (test code = 0.1 See_Comment N [Aut omated message] The Basophils) system which ge nerated this result tra nsmitted reference range : <=1.0. The reference r lina was not used to int erpret this result as normal/abnormal . [place] 741613-03-13 10:31:00 Test Item Value Reference Range Interpretation Comments Basophils # (test code 0.0 See_Comment N [Aut omated message] The = Basophils #) system which generated this result tra nsmitted reference range : <=0.2. The reference r lina was not used to int erpret this result as normal/abnormal . [facility] CampusLatcjyzIGRXNGDCTD8725-57-11 10:31:00 Test Item Value Reference Range Interpretation Comments Eosinophils # (test code 0.4 See_Comment N [A utomated message] The = Eosinophils #) system whic h generated this result tra nsmitted reference range : <=0.5. The reference r lina was not used to int erpret this result as normal/abnormal . [facility] CampusRlpklpdWSNSBFOXVL2913-49-39 10:31:00 Test Item Value Reference Range Interpretation Comments Monocytes # (test code 0.4 See_Comment N [Aut omated message] The = Monocytes #) system which generated this result tra nsmitted reference range : <=0.8. The reference r lina was not used to int erpret this result as normal/abnormal . [facility] CampusWtorviaNLTVSFICZA4104-28-73 10:31:00 Test Item Value Reference Range Interpretation Comments Lymphocytes # (test code = Lymphocytes 0.8 1.0-5.5 L #) [facility] CampusVkyjuihRHIBLHRACL0991-45-85 10:31:00 Test Item Value Reference Range Interpretation Comments Eosinophils (test code = 4.8 See_Comment H [A utomated message] The Eosinophils) system which ge nerated this result tra nsmitted reference range : <=4.0. The reference r lina was not used to int erpret this result as normal/abnormal . [facility] CampusEikpdwzCLNGPJIOZK1546-53-73 10:31:00 Test Item Value Reference Range Interpretation Comments Monocytes (test code = Monocytes) 4.8 2.0-12.0 N [facility] CampusLqggklzZWBNLOBFNF6605-41-69 10:31:00 Test Item Value Reference Range Interpretation Comments Lymphocytes (test code = Lymphocytes) 8.9 20.0-40.0 L [facility] CampusBxkeryhGWHQCQRKKA8334-56-52 10:31:00 Test Item Value Reference Range Interpretation Comments Segs (test code = Segs) 81.4 45.0-75.0 H [facility] CenterGjgsayrVBLQIYATL9255-49-20 10:31:00 Test Item Value Reference Range Interpretation Comments Sodium Lvl (test code = Sodium Lvl) 144 135-145 N [facility] CenterEnblpzhPMEFKKJEF9092-99-81 10:31:00 Test Item Value Reference Range Interpretation Comments Chloride Lvl (test code = Chloride Lvl) 105 95-109 N [facility] CenterYounxbjXAKORVMOA6606-09-83 10:31:00 Test Item Value Reference Range Interpretation Comments Potassium Lvl (test code = Potassium 3.6 3.5-5.1 N Lvl) [facility] CenterYhwswthXHHZXEQPU6516-68-10 10:31:00 Test Item Value Reference Range Interpretation Comments eGFR (test code = eGFR) 96 [facility] CenterWlhilpjNIXESISXZ1632-48-21 10:31:00 Test Item Value Reference Range Interpretation Comments Creatinine Lvl (test code = Creatinine 0.5 0.5-1.4 N Lvl) [facility] CenterVwxhpsySEJFOITLO6143-13-18 10:31:00 Test Item Value Reference Range Interpretation Comments CO2 (test code = CO2) 28 24-32 N [facility] CenterVmzccihJDDRDWLLQ9709-29-51 10:31:00 Test Item Value Reference Range Interpretation Comments Calcium Lvl (test code = Calcium Lvl) 7.8 8.5-10.5 L [facility] CenterPyjykyvMTSKQLOXR3542-31-84 10:31:00 Test Item Value Reference Range Interpretation Comments BUN (test code = BUN) 14 7-22 N [facility] CenterIycmfdtVQVQIGDZS8057-90-03 10:31:00 Test Item Value Reference Range Interpretation Comments Glucose Lvl (test code = Glucose Lvl) 118 70-99 H [facility] CenterGcbkcbpOXBTRACMC8630-73-49 10:31:00 Test Item Value Reference Range Interpretation Comments AGAP (test code = AGAP) 14.6 10.0-20.0 N [facility] CampusGehatifOXGCKNLYJB0370-34-14 10:31:00 Test Item Value Reference Range Interpretation Comments Platelet (test code = Platelet) 183 133-450 N [facility] CampusLtxuustACYVOIMEEL2255-60-98 10:31:00 Test Item Value Reference Range Interpretation Comments MCHC (test code = MCHC) 32.4 32.0-36.0 N [facility] CampusXptrycjBMWFBJOVYV3678-10-64 10:31:00 Test Item Value Reference Range Interpretation Comments RDW (test code = RDW) 15.7 11.5-14.5 H [facility] CampusFnniffdVEMMNNEMMJ6718-25-89 10:31:00 Test Item Value Reference Range Interpretation Comments MCH (test code = MCH) 26.8 pg 27.0-31.0 L [facility] CampusXtoqlacUGCPWUFQYO2776-91-39 10:31:00 Test Item Value Reference Range Interpretation Comments MCV (test code = MCV) 82.8 81.0-99.0 N [facility] CampusXyvfdzwIPBARDZRFO7019-56-41 10:31:00 Test Item Value Reference Range Interpretation Comments MPV (test code = MPV) 9.9 7.4-10.4 N [facility] CampusKcmdvkhXBKFDNPBVN3282-02-92 10:31:00 Test Item Value Reference Range Interpretation Comments Hct (test code = Hct) 29.4 36.0-48.0 L [facility] CampusLilhyzpMUXJPINZRG6376-70-61 10:31:00 Test Item Value Reference Range Interpretation Comments Hgb (test code = Hgb) 9.5 12.0-16.0 L [facility] CampusPndcbstCEOTNKKKXQ4794-37-16 10:31:00 Test Item Value Reference Range Interpretation Comments RBC (test code = RBC) 3.55 4.20-5.40 L [facility] CampusRxrpqioTIZMUIHPZQ8437-60-75 10:31:00 Test Item Value Reference Range Interpretation Comments WBC (test code = WBC) 8.9 3.7-10.4 N [facility] CampusGhjqpqjZAYYUKTQOX4229-41-13 10:31:00 Test Item Value Reference Range Interpretation Comments Segs-Bands # (test code = Segs-Bands #) 7.2 1.5-8.1 N [facility] CampusAyjctteXKKSHVTPFJ4017-38-45 10:31:00 Test Item Value Reference Range Interpretation Comments Basophils (test code = 0.1 See_Comment N [Aut omated message] The Basophils) system which ge nerated this result tra nsmitted reference range : <=1.0. The reference r lina was not used to int erpret this result as normal/abnormal . [facility] CampusYsekfbtLZZKYDXMGC4983-34-55 10:31:00 Test Item Value Reference Range Interpretation Comments Basophils # (test code 0.0 See_Comment N [Aut omated message] The = Basophils #) system which generated this result tra nsmitted reference range : <=0.2. The reference r lina was not used to int erpret this result as normal/abnormal . [facility] CampusWhedyvhCFEXYMLTHG3669-70-90 10:31:00 Test Item Value Reference Range Interpretation Comments Eosinophils # (test code 0.4 See_Comment N [A utomated message] The = Eosinophils #) system whic h generated this result tra nsmitted reference range : <=0.5. The reference r lina was not used to int erpret this result as normal/abnormal . [facility] CampusBbamnlbAZMLXDZRGV7368-64-36 10:31:00 Test Item Value Reference Range Interpretation Comments Monocytes # (test code 0.4 See_Comment N [Aut omated message] The = Monocytes #) system which generated this result tra nsmitted reference range : <=0.8. The reference r lina was not used to int erpret this result as normal/abnormal . [facility] CampusWhpqifjBSCJCJFAAR9024-06-44 10:31:00 Test Item Value Reference Range Interpretation Comments Lymphocytes # (test code = Lymphocytes 0.8 1.0-5.5 L #) [facility] CampusOjosbpcIYZLZMBLEO7857-38-27 10:31:00 Test Item Value Reference Range Interpretation Comments Eosinophils (test code = 4.8 See_Comment H [A utomated message] The Eosinophils) system which ge nerated this result tra nsmitted reference range : <=4.0. The reference r lina was not used to int erpret this result as normal/abnormal . [facility] CampusOxshrgmSOZZGBGWEA2966-90-92 10:31:00 Test Item Value Reference Range Interpretation Comments Monocytes (test code = Monocytes) 4.8 2.0-12.0 N [facility] CampusIwmewteFDWUURPGOZ0231-52-70 10:31:00 Test Item Value Reference Range Interpretation Comments Lymphocytes (test code = Lymphocytes) 8.9 20.0-40.0 L [facility] CampusVrbjuxjOWLFGYWYKQ9461-93-94 10:31:00 Test Item Value Reference Range Interpretation Comments Segs (test code = Segs) 81.4 45.0-75.0 H [facility] CenterUabtclvZNIPFXFZS9198-13-15 08:47:00 Test Item Value Reference Range Interpretation Comments Chloride Lvl (test code = Chloride Lvl) 106 95-109 N [facility] CenterOcnyaooTSVDBBZZA6431-52-98 08:47:00 Test Item Value Reference Range Interpretation Comments Potassium Lvl (test code = Potassium 3.5 3.5-5.1 N Lvl) [facility] CenterDtfbsmuHBIRQBMJT2300-82-73 08:47:00 Test Item Value Reference Range Interpretation Comments Sodium Lvl (test code = Sodium Lvl) 144 135-145 N [facility] CenterTmghfagWYJLEMUWW3964-13-47 08:47:00 Test Item Value Reference Range Interpretation Comments Globulin (test code = Globulin) 2.7 2.0-4.0 N [facility] CenterBhnvsrrGCFDUYAOI0595-39-87 08:47:00 Test Item Value Reference Range Interpretation Comments A/G Ratio (test code = A/G Ratio) 1.0 0.7-1.6 N [facility] CenterHqyitavGXYSCFKWE1527-90-71 08:47:00 Test Item Value Reference Range Interpretation Comments Bili Total (test code = Bili Total) 0.9 0.2-1.3 N [facility] CenterZecojzoFKTJFHBSR5297-09-80 08:47:00 Test Item Value Reference Range Interpretation Comments ALT (test code = ALT) 12 See_Comment N [Auto mated message] The system which ge nerated this result transmit norris reference range : <=65. The reference range was not used to interpr et this result as darshana l/abnormal. [facility] CenterAplydtsQRGEQXZGV6502-47-34 08:47:00 Test Item Value Reference Range Interpretation Comments Alk Phos (test code = Alk Phos) 60 39-136 N [facility] CenterGjmgtnaETBQOTIHR6947-21-40 08:47:00 Test Item Value Reference Range Interpretation Comments Creatinine Lvl (test code = Creatinine 0.5 0.5-1.4 N Lvl) [facility] CenterKjjxbkmJXJBXKXOQ4325-18-23 08:47:00 Test Item Value Reference Range Interpretation Comments CO2 (test code = CO2) 31 24-32 N [facility] CenterIdnehmrALENSUWEH5121-36-09 08:47:00 Test Item Value Reference Range Interpretation Comments Glucose Lvl (test code = Glucose Lvl) 93 70-99 N [facility] CenterUhpbsqgWVXVMTNPV4019-48-17 08:47:00 Test Item Value Reference Range Interpretation Comments BUN (test code = BUN) 14 7-22 N [facility] CenterRuvxcpdNOZJFSPFQ4277-76-77 08:47:00 Test Item Value Reference Range Interpretation Comments AGAP (test code = AGAP) 10.5 10.0-20.0 N [facility] CenterJwbuxabPQNYKWZSF3533-42-47 08:47:00 Test Item Value Reference Range Interpretation Comments Total Protein (test code = Total 5.3 6.4-8.4 L Protein) [facility] CenterQixymloWRGJCQJUH5719-65-37 08:47:00 Test Item Value Reference Range Interpretation Comments Albumin Lvl (test code = Albumin Lvl) 2.6 3.5-5.0 L [facility] CenterIvchyxtKBTTAOIDJ1458-55-06 08:47:00 Test Item Value Reference Range Interpretation Comments Calcium Lvl (test code = Calcium Lvl) 7.6 8.5-10.5 L [facility] CenterVkkyaprRZXEBWBII7162-28-34 08:47:00 Test Item Value Reference Range Interpretation Comments B/C Ratio (test code = B/C Ratio) 28 6-25 H [place] 669283-03-12 08:47:00 Test Item Value Reference Range Interpretation Comments AST (test code = AST) 9 See_Comment N [Auto mated message] The system which ge nerated this result transmit norris reference range : <=37. The reference range was not used to interpr et this result as darshana l/abnormal. [facility] CenterXkadpixCJUQMJNZV8965-90-44 08:47:00 Test Item Value Reference Range Interpretation Comments eGFR (test code = eGFR) 96 [facility] CampusDcceezjQFXXFZZCNF8934-35-33 08:47:00 Test Item Value Reference Range Interpretation Comments Monocytes # (test code 0.4 See_Comment N [Aut omated message] The = Monocytes #) system which generated this result tra nsmitted reference range : <=0.8. The reference r lina was not used to int erpret this result as normal/abnormal . [facility] CampusCwgnpwcAKLEOWWEME7220-52-12 08:47:00 Test Item Value Reference Range Interpretation Comments Eosinophils # (test code 0.3 See_Comment N [A utomated message] The = Eosinophils #) system whic h generated this result tra nsmitted reference range : <=0.5. The reference r lina was not used to int erpret this result as normal/abnormal . [facility] CampusIafyzsuZKITFKMAHX4081-06-40 08:47:00 Test Item Value Reference Range Interpretation Comments Basophils # (test code 0.0 See_Comment N [Aut omated message] The = Basophils #) system which generated this result tra nsmitted reference range : <=0.2. The reference r lina was not used to int erpret this result as normal/abnormal . [facility] CampusXfjentgCOGFDLLKIB7234-06-20 08:47:00 Test Item Value Reference Range Interpretation Comments Eosinophils (test code = 3.3 See_Comment N [A utomated message] The Eosinophils) system which ge nerated this result tra nsmitted reference range : <=4.0. The reference r lina was not used to int erpret this result as normal/abnormal . [facility] CampusZwbodcdOERYMGVVAY8857-15-74 08:47:00 Test Item Value Reference Range Interpretation Comments Basophils (test code = 0.2 See_Comment N [Aut omated message] The Basophils) system which ge nerated this result tra nsmitted reference range : <=1.0. The reference r lina was not used to int erpret this result as normal/abnormal . [facility] CampusNqplwcoJUOFDRRISX6467-29-70 08:47:00 Test Item Value Reference Range Interpretation Comments Segs-Bands # (test code = Segs-Bands #) 7.4 1.5-8.1 N [facility] CampusAclageqNEMOBRWMPF9675-51-54 08:47:00 Test Item Value Reference Range Interpretation Comments Lymphocytes # (test code = Lymphocytes 0.9 1.0-5.5 L #) [facility] CampusNqtnysaOOPAKGZYWU9304-43-23 08:47:00 Test Item Value Reference Range Interpretation Comments Monocytes (test code = Monocytes) 4.7 2.0-12.0 N [facility] CampusAszedaoQETERPFXZS8013-52-30 08:47:00 Test Item Value Reference Range Interpretation Comments Lymphocytes (test code = Lymphocytes) 10.1 20.0-40.0 L [facility] CampusDxaodkvZEMYHQXFCB0993-94-78 08:47:00 Test Item Value Reference Range Interpretation Comments Segs (test code = Segs) 81.7 45.0-75.0 H [facility] CampusZjwdcdtWCHIGKICYJ7878-21-73 08:47:00 Test Item Value Reference Range Interpretation Comments MPV (test code = MPV) 9.8 7.4-10.4 N [facility] CampusFgbkdgqLRXHNVYLZK2079-27-35 08:47:00 Test Item Value Reference Range Interpretation Comments MCHC (test code = MCHC) 32.4 32.0-36.0 N [facility] CampusJvrqcunZJBWNIMQLY8769-05-07 08:47:00 Test Item Value Reference Range Interpretation Comments RDW (test code = RDW) 15.8 11.5-14.5 H [facility] CampusCfpjujgVYAKJHWABN9990-94-26 08:47:00 Test Item Value Reference Range Interpretation Comments Platelet (test code = Platelet) 174 133-450 N [facility] CampusHpytnclIJFHOQMAHS5748-04-82 08:47:00 Test Item Value Reference Range Interpretation Comments Hct (test code = Hct) 29.1 36.0-48.0 L [facility] CampusGwptqenKKEBJYDWGB3022-74-69 08:47:00 Test Item Value Reference Range Interpretation Comments RBC (test code = RBC) 3.53 4.20-5.40 L [facility] CampusKzjwqjxYGQTRDTDIT7173-22-07 08:47:00 Test Item Value Reference Range Interpretation Comments WBC (test code = WBC) 9.1 3.7-10.4 N [facility] CampusXcaslwxXZGRDSIMWA1852-62-13 08:47:00 Test Item Value Reference Range Interpretation Comments Hgb (test code = Hgb) 9.4 12.0-16.0 L [facility] CampusKjbbjseSRRQYNUTIB8568-54-03 08:47:00 Test Item Value Reference Range Interpretation Comments MCH (test code = MCH) 26.7 pg 27.0-31.0 L [facility] CampusPxwpeycNDZXRMVTAJ2769-18-94 08:47:00 Test Item Value Reference Range Interpretation Comments MCV (test code = MCV) 82.4 81.0-99.0 N [facility] CenterEekvmvwICNODTSNZ3469-59-23 08:47:00 Test Item Value Reference Range Interpretation Comments Magnesium Lvl (test code = Magnesium 2.1 1.8-2.4 N Lvl) [facility]QwdkdggHZJZHSWSI2198-31-00 08:47:00 Test Item Value Reference Range Interpretation Comments Chloride Lvl (test code = Chloride Lvl) 106 95-109 N [facility] CenterTcqmlkuCEYFTXLYV7755-36-15 08:47:00 Test Item Value Reference Range Interpretation Comments Potassium Lvl (test code = Potassium 3.5 3.5-5.1 N Lvl) [facility] CenterXbxdkixLBSWBWMVF0777-83-80 08:47:00 Test Item Value Reference Range Interpretation Comments Sodium Lvl (test code = Sodium Lvl) 144 135-145 N [facility] CenterXzthpxkOHMGJDZIE3005-70-88 08:47:00 Test Item Value Reference Range Interpretation Comments Globulin (test code = Globulin) 2.7 2.0-4.0 N [facility] CenterWzkpvehKCIBHQRIG1271-42-80 08:47:00 Test Item Value Reference Range Interpretation Comments A/G Ratio (test code = A/G Ratio) 1.0 0.7-1.6 N [facility] CenterEaeptitMYJTBKWYC0701-13-19 08:47:00 Test Item Value Reference Range Interpretation Comments Bili Total (test code = Bili Total) 0.9 0.2-1.3 N [facility] CenterUbjfmvhFIIFUPSKF3914-41-57 08:47:00 Test Item Value Reference Range Interpretation Comments ALT (test code = ALT) 12 See_Comment N [Auto mated message] The system which ge nerated this result transmit norris reference range : <=65. The reference range was not used to interpr et this result as darshana l/abnormal. [facility] CenterXrezcbzZWYACPAYB0307-52-96 08:47:00 Test Item Value Reference Range Interpretation Comments Alk Phos (test code = Alk Phos) 60 39-136 N [facility] CenterKooatrtWBYJMTPMU8100-51-48 08:47:00 Test Item Value Reference Range Interpretation Comments Creatinine Lvl (test code = Creatinine 0.5 0.5-1.4 N Lvl) [facility] CenterAikvfwvSLCPUUJDB7619-70-02 08:47:00 Test Item Value Reference Range Interpretation Comments CO2 (test code = CO2) 31 24-32 N [facility] CenterJtuuzxoVDMHPNLSE8457-78-44 08:47:00 Test Item Value Reference Range Interpretation Comments Glucose Lvl (test code = Glucose Lvl) 93 70-99 N [facility] CenterKzpxuboYMJTHGKAA1391-87-44 08:47:00 Test Item Value Reference Range Interpretation Comments BUN (test code = BUN) 14 7-22 N [facility] CenterLlvertgNCXYWLGPC6292-67-93 08:47:00 Test Item Value Reference Range Interpretation Comments AGAP (test code = AGAP) 10.5 10.0-20.0 N [facility] CenterMvujsfjXKFNVXRGM2949-71-18 08:47:00 Test Item Value Reference Range Interpretation Comments Total Protein (test code = Total 5.3 6.4-8.4 L Protein) [facility] CenterYowvzvyOHAKEOBXE1592-82-15 08:47:00 Test Item Value Reference Range Interpretation Comments Albumin Lvl (test code = Albumin Lvl) 2.6 3.5-5.0 L [facility] CenterRudajjzSUGOGWNUP7514-79-52 08:47:00 Test Item Value Reference Range Interpretation Comments Calcium Lvl (test code = Calcium Lvl) 7.6 8.5-10.5 L [facility] CenterNytdqxbDYKPLYILC9450-42-58 08:47:00 Test Item Value Reference Range Interpretation Comments B/C Ratio (test code = B/C Ratio) 28 6-25 H [facility] CenterDeeffgmDHJEKGASL7819-09-77 08:47:00 Test Item Value Reference Range Interpretation Comments AST (test code = AST) 9 See_Comment N [Auto mated message] The system which ge nerated this result transmit norris reference range : <=37. The reference range was not used to interpr et this result as darshana l/abnormal. [facility] CenterTrzyoulSCKQHMJLX8953-74-24 08:47:00 Test Item Value Reference Range Interpretation Comments eGFR (test code = eGFR) 96 [facility] CampusLuktqdxSZWNRHZMDY0128-06-11 08:47:00 Test Item Value Reference Range Interpretation Comments Monocytes # (test code 0.4 See_Comment N [Aut omated message] The = Monocytes #) system which generated this result tra nsmitted reference range : <=0.8. The reference r lina was not used to int erpret this result as normal/abnormal . [facility] CampusKhafjhdLFLJUGQTTE0124-29-26 08:47:00 Test Item Value Reference Range Interpretation Comments Eosinophils # (test code 0.3 See_Comment N [A utomated message] The = Eosinophils #) system whic h generated this result tra nsmitted reference range : <=0.5. The reference r lina was not used to int erpret this result as normal/abnormal . [facility] CampusNwalhibPMUDSMNJTQ0808-54-49 08:47:00 Test Item Value Reference Range Interpretation Comments Basophils # (test code 0.0 See_Comment N [Aut omated message] The = Basophils #) system which generated this result tra nsmitted reference range : <=0.2. The reference r lina was not used to int erpret this result as normal/abnormal . [facility] CampusTmnzkxiSERDFRGYZM2134-97-97 08:47:00 Test Item Value Reference Range Interpretation Comments Eosinophils (test code = 3.3 See_Comment N [A utomated message] The Eosinophils) system which ge nerated this result tra nsmitted reference range : <=4.0. The reference r lina was not used to int erpret this result as normal/abnormal . [facility] CampusFpbboolMBXSDCOYLL3810-29-62 08:47:00 Test Item Value Reference Range Interpretation Comments Basophils (test code = 0.2 See_Comment N [Aut omated message] The Basophils) system which ge nerated this result tra nsmitted reference range : <=1.0. The reference r lina was not used to int erpret this result as normal/abnormal . [facility]SdxycfoTAWKYLBLCN9269-54-42 08:47:00 Test Item Value Reference Range Interpretation Comments Segs-Bands # (test code = Segs-Bands #) 7.4 1.5-8.1 N [facility] CampusIrxmcouZZSQREUKVJ6614-90-78 08:47:00 Test Item Value Reference Range Interpretation Comments Lymphocytes # (test code = Lymphocytes 0.9 1.0-5.5 L #) [facility] CampusAoibxzmAAPNIVMYRG9903-66-08 08:47:00 Test Item Value Reference Range Interpretation Comments Monocytes (test code = Monocytes) 4.7 2.0-12.0 N [facility] CampusJzsyozrNGGMXPRMIY3964-72-07 08:47:00 Test Item Value Reference Range Interpretation Comments Lymphocytes (test code = Lymphocytes) 10.1 20.0-40.0 L [facility] CampusUbjtchuFIBSRSMKRO3578-19-40 08:47:00 Test Item Value Reference Range Interpretation Comments Segs (test code = Segs) 81.7 45.0-75.0 H [facility] CampusMxdxrdlYIATMOCOHM8659-93-25 08:47:00 Test Item Value Reference Range Interpretation Comments MPV (test code = MPV) 9.8 7.4-10.4 N [facility] CampusBfsdpuyCHGTOVUFWQ6077-94-32 08:47:00 Test Item Value Reference Range Interpretation Comments MCHC (test code = MCHC) 32.4 32.0-36.0 N [facility] CampusTjnyyqkOOGZAZQMGI7468-68-64 08:47:00 Test Item Value Reference Range Interpretation Comments RDW (test code = RDW) 15.8 11.5-14.5 H [facility] CampusZuwumrcQFBKNJOLFY1845-13-57 08:47:00 Test Item Value Reference Range Interpretation Comments Platelet (test code = Platelet) 174 133-450 N [facility] CampusYxdirpdBNCUGPZJRF8995-24-33 08:47:00 Test Item Value Reference Range Interpretation Comments Hct (test code = Hct) 29.1 36.0-48.0 L [facility] CampusEgnbeboPTKQDBFPAU1099-26-15 08:47:00 Test Item Value Reference Range Interpretation Comments RBC (test code = RBC) 3.53 4.20-5.40 L [facility] CampusIuznykfNGBMTBGBFY5158-15-45 08:47:00 Test Item Value Reference Range Interpretation Comments WBC (test code = WBC) 9.1 3.7-10.4 N [facility] CampusGvdcbttRUKDRBDFXC8680-15-96 08:47:00 Test Item Value Reference Range Interpretation Comments Hgb (test code = Hgb) 9.4 12.0-16.0 L [facility] CampusUidxmmzQXQJGZMARV7195-70-71 08:47:00 Test Item Value Reference Range Interpretation Comments MCH (test code = MCH) 26.7 pg 27.0-31.0 L [facility] CampusOijgxgyKNYGKTYVEH5492-75-03 08:47:00 Test Item Value Reference Range Interpretation Comments MCV (test code = MCV) 82.4 81.0-99.0 N [facility]TabxesoBUHNIRDCK8799-76-07 08:47:00 Test Item Value Reference Range Interpretation Comments Magnesium Lvl (test code = Magnesium 2.1 1.8-2.4 N Lvl) [facility] CenterKvhbmqsCCYUJWXJO4728-44-25 08:47:00 Test Item Value Reference Range Interpretation Comments Chloride Lvl (test code = Chloride Lvl) 106 95-109 N [facility] CenterAagapbjBPUMGBHBM1485-22-58 08:47:00 Test Item Value Reference Range Interpretation Comments Potassium Lvl (test code = Potassium 3.5 3.5-5.1 N Lvl) [facility] CenterMyytlcsWEGOZIHDI4339-80-20 08:47:00 Test Item Value Reference Range Interpretation Comments Sodium Lvl (test code = Sodium Lvl) 144 135-145 N [facility] CenterUiaqicuTIWGBLAZO5532-09-46 08:47:00 Test Item Value Reference Range Interpretation Comments Globulin (test code = Globulin) 2.7 2.0-4.0 N [facility] CenterGwdvcguGZZWKEDIT4242-72-04 08:47:00 Test Item Value Reference Range Interpretation Comments A/G Ratio (test code = A/G Ratio) 1.0 0.7-1.6 N [facility] CenterNhcamdzXFKVEDCCG7417-39-78 08:47:00 Test Item Value Reference Range Interpretation Comments Bili Total (test code = Bili Total) 0.9 0.2-1.3 N [facility] CenterXlxlcfaSRTOCTKWK6995-09-07 08:47:00 Test Item Value Reference Range Interpretation Comments ALT (test code = ALT) 12 See_Comment N [Auto mated message] The system which ge nerated this result transmit norris reference range : <=65. The reference range was not used to interpr et this result as darshana l/abnormal. [facility] CenterUhkxjoyJGUKUKCJR9591-72-29 08:47:00 Test Item Value Reference Range Interpretation Comments Alk Phos (test code = Alk Phos) 60 39-136 N [facility] CenterPqubqxbCNTUBUFDI6489-03-11 08:47:00 Test Item Value Reference Range Interpretation Comments Creatinine Lvl (test code = Creatinine 0.5 0.5-1.4 N Lvl) [facility] CenterOhvhquzFBUCWNFTS4483-12-93 08:47:00 Test Item Value Reference Range Interpretation Comments CO2 (test code = CO2) 31 24-32 N [facility] CenterCfoagagVFPZKYOTN3231-84-71 08:47:00 Test Item Value Reference Range Interpretation Comments Glucose Lvl (test code = Glucose Lvl) 93 70-99 N [facility] CenterExfcuqdPESWUWOSF5392-75-00 08:47:00 Test Item Value Reference Range Interpretation Comments BUN (test code = BUN) 14 7-22 N [facility] CenterKanymmcNPBNDCLGW2721-72-10 08:47:00 Test Item Value Reference Range Interpretation Comments AGAP (test code = AGAP) 10.5 10.0-20.0 N [facility] CenterOmbhatbOZXAOUDEZ5237-21-34 08:47:00 Test Item Value Reference Range Interpretation Comments Total Protein (test code = Total 5.3 6.4-8.4 L Protein) [facility] CenterHxusarxROIVCVSGA8532-81-59 08:47:00 Test Item Value Reference Range Interpretation Comments Albumin Lvl (test code = Albumin Lvl) 2.6 3.5-5.0 L [facility] CenterSrcpxlqPOBNOEVJB5640-47-18 08:47:00 Test Item Value Reference Range Interpretation Comments Calcium Lvl (test code = Calcium Lvl) 7.6 8.5-10.5 L [facility] CenterEmgmgfxUJJWOVBSO8117-87-81 08:47:00 Test Item Value Reference Range Interpretation Comments B/C Ratio (test code = B/C Ratio) 28 6-25 H [facility] CenterVfuxvobWNHSQOFET5150-31-03 08:47:00 Test Item Value Reference Range Interpretation Comments AST (test code = AST) 9 See_Comment N [Auto mated message] The system which ge nerated this result transmit norris reference range : <=37. The reference range was not used to interpr et this result as darshana l/abnormal. [facility] CenterGdnfvtvDSTUQPPRY0760-49-30 08:47:00 Test Item Value Reference Range Interpretation Comments eGFR (test code = eGFR) 96 [facility] CampusXnnkxixJGGQHHFLGU8541-94-62 08:47:00 Test Item Value Reference Range Interpretation Comments Monocytes # (test code 0.4 See_Comment N [Aut omated message] The = Monocytes #) system which generated this result tra nsmitted reference range : <=0.8. The reference r lina was not used to int erpret this result as normal/abnormal . [facility] CampusZlxfqalYRXXAGYYZF0902-59-16 08:47:00 Test Item Value Reference Range Interpretation Comments Eosinophils # (test code 0.3 See_Comment N [A utomated message] The = Eosinophils #) system whic h generated this result tra nsmitted reference range : <=0.5. The reference r lina was not used to int erpret this result as normal/abnormal . [facility] CampusGwuwpgzDFSFEBWEFD1290-50-01 08:47:00 Test Item Value Reference Range Interpretation Comments Basophils # (test code 0.0 See_Comment N [Aut omated message] The = Basophils #) system which generated this result tra nsmitted reference range : <=0.2. The reference r lina was not used to int erpret this result as normal/abnormal . [facility] CampusWgbttsrWGAIWFIPXY8691-56-75 08:47:00 Test Item Value Reference Range Interpretation Comments Eosinophils (test code = 3.3 See_Comment N [A utomated message] The Eosinophils) system which ge nerated this result tra nsmitted reference range : <=4.0. The reference r lina was not used to int erpret this result as normal/abnormal . [facility] CampusWttgqybFAHCMPEUFH1223-29-24 08:47:00 Test Item Value Reference Range Interpretation Comments Basophils (test code = 0.2 See_Comment N [Aut omated message] The Basophils) system which ge nerated this result tra nsmitted reference range : <=1.0. The reference r lina was not used to int erpret this result as normal/abnormal . [facility] CampusXxxmqfpFASQEDHJJA8034-94-64 08:47:00 Test Item Value Reference Range Interpretation Comments Segs-Bands # (test code = Segs-Bands #) 7.4 1.5-8.1 N [facility] CampusTtvxyadKIMWGPWLMD1313-91-60 08:47:00 Test Item Value Reference Range Interpretation Comments Lymphocytes # (test code = Lymphocytes 0.9 1.0-5.5 L #) [facility] CampusMxjxeevGHOFGZICTH6181-26-26 08:47:00 Test Item Value Reference Range Interpretation Comments Monocytes (test code = Monocytes) 4.7 2.0-12.0 N [facility] CampusRtflhthMNPPYLBYQC1979-48-36 08:47:00 Test Item Value Reference Range Interpretation Comments Lymphocytes (test code = Lymphocytes) 10.1 20.0-40.0 L [facility] CampusGffltuqDPURPISCSF0757-34-66 08:47:00 Test Item Value Reference Range Interpretation Comments Segs (test code = Segs) 81.7 45.0-75.0 H [facility] CampusAviwzslANXAABPJHR2454-79-73 08:47:00 Test Item Value Reference Range Interpretation Comments MPV (test code = MPV) 9.8 7.4-10.4 N [facility] CampusHlthzupTYOOLOGQOP8140-28-43 08:47:00 Test Item Value Reference Range Interpretation Comments MCHC (test code = MCHC) 32.4 32.0-36.0 N [facility] CampusXuafqomKDDDZHNDNX6706-32-23 08:47:00 Test Item Value Reference Range Interpretation Comments RDW (test code = RDW) 15.8 11.5-14.5 H [facility] CampusVxtczkyYPNNRXMPOQ1732-29-01 08:47:00 Test Item Value Reference Range Interpretation Comments Platelet (test code = Platelet) 174 133-450 N [facility] CampusKqpcfrcDTFFBLWVPV7628-51-99 08:47:00 Test Item Value Reference Range Interpretation Comments Hct (test code = Hct) 29.1 36.0-48.0 L [facility] CampusHhtcmfqEUPJWMWBPM9818-80-81 08:47:00 Test Item Value Reference Range Interpretation Comments RBC (test code = RBC) 3.53 4.20-5.40 L [facility] CampusElzkrlsIHLVVXRZKG0699-57-49 08:47:00 Test Item Value Reference Range Interpretation Comments WBC (test code = WBC) 9.1 3.7-10.4 N [facility] CampusBirhqdlBWNBSXECZO7378-48-82 08:47:00 Test Item Value Reference Range Interpretation Comments Hgb (test code = Hgb) 9.4 12.0-16.0 L [facility] CampusBuegdzzJAJZVLMGBP2895-82-96 08:47:00 Test Item Value Reference Range Interpretation Comments MCH (test code = MCH) 26.7 pg 27.0-31.0 L [facility] CampusMydipgpSTJWRJQDBJ1565-20-67 08:47:00 Test Item Value Reference Range Interpretation Comments MCV (test code = MCV) 82.4 81.0-99.0 N [facility] CenterMczbgwrEISCFYVMR0186-09-93 08:47:00 Test Item Value Reference Range Interpretation Comments Magnesium Lvl (test code = Magnesium 2.1 1.8-2.4 N Lvl) [facility] CenterIwujsnwQUOSYDSUH3051-38-57 08:47:00 Test Item Value Reference Range Interpretation Comments Chloride Lvl (test code = Chloride Lvl) 106 95-109 N [facility] CenterYebklzzWLJPSLKHC4695-45-98 08:47:00 Test Item Value Reference Range Interpretation Comments Potassium Lvl (test code = Potassium 3.5 3.5-5.1 N Lvl) [facility] CenterOatbfidMPUUGAIVZ0179-16-79 08:47:00 Test Item Value Reference Range Interpretation Comments Sodium Lvl (test code = Sodium Lvl) 144 135-145 N [facility] CenterNlmyyekMFUZAMQTL3747-17-78 08:47:00 Test Item Value Reference Range Interpretation Comments Globulin (test code = Globulin) 2.7 2.0-4.0 N [facility] CenterEtkpddjBYIZNVETD4190-93-27 08:47:00 Test Item Value Reference Range Interpretation Comments A/G Ratio (test code = A/G Ratio) 1.0 0.7-1.6 N [facility] CenterVaapmdiLUSNIZUPW8972-70-68 08:47:00 Test Item Value Reference Range Interpretation Comments Bili Total (test code = Bili Total) 0.9 0.2-1.3 N [facility] CenterGifgrauIIFPCEDWS2247-88-40 08:47:00 Test Item Value Reference Range Interpretation Comments ALT (test code = ALT) 12 See_Comment N [Auto mated message] The system which ge nerated this result transmit norris reference range : <=65. The reference range was not used to interpr et this result as darshana l/abnormal. [facility] CenterVgjwbbkNXAZUZLNO3669-22-04 08:47:00 Test Item Value Reference Range Interpretation Comments Alk Phos (test code = Alk Phos) 60 39-136 N [facility] CenterJlqqzcmRSZDZEHWG2130-51-95 08:47:00 Test Item Value Reference Range Interpretation Comments Creatinine Lvl (test code = Creatinine 0.5 0.5-1.4 N Lvl) [facility] CenterAnbbppzAQDUVXMLG6497-09-01 08:47:00 Test Item Value Reference Range Interpretation Comments CO2 (test code = CO2) 31 24-32 N [facility] CenterEdknsthTGCAQEYEO0023-10-18 08:47:00 Test Item Value Reference Range Interpretation Comments Glucose Lvl (test code = Glucose Lvl) 93 70-99 N [facility] CenterWghkhffFYIVIWQTC7369-61-16 08:47:00 Test Item Value Reference Range Interpretation Comments BUN (test code = BUN) 14 7-22 N [facility] CenterVzelejrTVPHXLDHN4819-77-02 08:47:00 Test Item Value Reference Range Interpretation Comments AGAP (test code = AGAP) 10.5 10.0-20.0 N [facility] CenterCaxsqjkWGKMCLXZM7954-84-54 08:47:00 Test Item Value Reference Range Interpretation Comments Total Protein (test code = Total 5.3 6.4-8.4 L Protein) [facility] CenterNeoucorCLKQYNTNL6858-33-83 08:47:00 Test Item Value Reference Range Interpretation Comments Albumin Lvl (test code = Albumin Lvl) 2.6 3.5-5.0 L [facility] CenterAvvlclpRJBNJSLKL5000-74-98 08:47:00 Test Item Value Reference Range Interpretation Comments Calcium Lvl (test code = Calcium Lvl) 7.6 8.5-10.5 L [facility] CenterRscmrfnXOJPYSMKW5432-59-69 08:47:00 Test Item Value Reference Range Interpretation Comments B/C Ratio (test code = B/C Ratio) 28 6-25 H [facility] CenterGbyeiqlTXVFTNCNH0668-75-73 08:47:00 Test Item Value Reference Range Interpretation Comments AST (test code = AST) 9 See_Comment N [Auto mated message] The system which ge nerated this result transmit norris reference range : <=37. The reference range was not used to interpr et this result as darshana l/abnormal. [facility] CenterDzvatjlFUVOXOLIB0596-43-91 08:47:00 Test Item Value Reference Range Interpretation Comments eGFR (test code = eGFR) 96 [facility] CampusAclrrirXZCJUKEWTY9780-28-42 08:47:00 Test Item Value Reference Range Interpretation Comments Monocytes # (test code 0.4 See_Comment N [Aut omated message] The = Monocytes #) system which generated this result tra nsmitted reference range : <=0.8. The reference r lina was not used to int erpret this result as normal/abnormal . [facility] CampusHfwpfqzKEZFDLQEJF0324-15-86 08:47:00 Test Item Value Reference Range Interpretation Comments Eosinophils # (test code 0.3 See_Comment N [A utomated message] The = Eosinophils #) system whic h generated this result tra nsmitted reference range : <=0.5. The reference r lina was not used to int erpret this result as normal/abnormal . [facility] CampusUhwndipWJAMNGWPDD2210-78-95 08:47:00 Test Item Value Reference Range Interpretation Comments Basophils # (test code 0.0 See_Comment N [Aut omated message] The = Basophils #) system which generated this result tra nsmitted reference range : <=0.2. The reference r lina was not used to int erpret this result as normal/abnormal . [facility] CampusUyvmgkaMPWETLJWBT8484-97-65 08:47:00 Test Item Value Reference Range Interpretation Comments Eosinophils (test code = 3.3 See_Comment N [A utomated message] The Eosinophils) system which ge nerated this result tra nsmitted reference range : <=4.0. The reference r lina was not used to int erpret this result as normal/abnormal . [facility] CampusLlobbqzBTKAQRAPSZ1853-54-35 08:47:00 Test Item Value Reference Range Interpretation Comments Basophils (test code = 0.2 See_Comment N [Aut omated message] The Basophils) system which ge nerated this result tra nsmitted reference range : <=1.0. The reference r lina was not used to int erpret this result as normal/abnormal . [facility] CampusPedhtovHAVLZDWJAQ5833-37-23 08:47:00 Test Item Value Reference Range Interpretation Comments Segs-Bands # (test code = Segs-Bands #) 7.4 1.5-8.1 N [facility] CampusVyxpueeRDDBZHTYQF3760-42-10 08:47:00 Test Item Value Reference Range Interpretation Comments Lymphocytes # (test code = Lymphocytes 0.9 1.0-5.5 L #) [facility] CampusJysignvVPRPMUSOFF6925-45-26 08:47:00 Test Item Value Reference Range Interpretation Comments Monocytes (test code = Monocytes) 4.7 2.0-12.0 N [facility] CampusHnpiummVWQZAGNIOZ0551-77-31 08:47:00 Test Item Value Reference Range Interpretation Comments Lymphocytes (test code = Lymphocytes) 10.1 20.0-40.0 L [facility] CampusPwrvfzhCXNOZITEJW4080-45-28 08:47:00 Test Item Value Reference Range Interpretation Comments Segs (test code = Segs) 81.7 45.0-75.0 H [facility] CampusUulrnqwVFLMBSBZOI0346-81-31 08:47:00 Test Item Value Reference Range Interpretation Comments MPV (test code = MPV) 9.8 7.4-10.4 N [facility] CampusHixyiioTBEQRADYVQ7827-25-41 08:47:00 Test Item Value Reference Range Interpretation Comments MCHC (test code = MCHC) 32.4 32.0-36.0 N [facility] CampusVokrrcrIKLMGJNBLW1695-86-01 08:47:00 Test Item Value Reference Range Interpretation Comments RDW (test code = RDW) 15.8 11.5-14.5 H [facility] CampusNnytumpATGDXDVKKO4839-65-93 08:47:00 Test Item Value Reference Range Interpretation Comments Platelet (test code = Platelet) 174 133-450 N [facility] CampusCkfuclePZWHZXXPQE4583-87-49 08:47:00 Test Item Value Reference Range Interpretation Comments Hct (test code = Hct) 29.1 36.0-48.0 L [facility] CampusVhrvpxxSLMCSWCHMN7564-84-15 08:47:00 Test Item Value Reference Range Interpretation Comments RBC (test code = RBC) 3.53 4.20-5.40 L [facility] CampusAyuuyzyABCTVEXVEF9441-42-86 08:47:00 Test Item Value Reference Range Interpretation Comments WBC (test code = WBC) 9.1 3.7-10.4 N [facility] CampusOawgxmcUEMUXDOTBP0114-00-03 08:47:00 Test Item Value Reference Range Interpretation Comments Hgb (test code = Hgb) 9.4 12.0-16.0 L [facility] CampusDwtimvoNCSDQHBUYU9208-29-12 08:47:00 Test Item Value Reference Range Interpretation Comments MCH (test code = MCH) 26.7 pg 27.0-31.0 L [facility] CampusVxhhqclVZUENPCIGQ3453-62-41 08:47:00 Test Item Value Reference Range Interpretation Comments MCV (test code = MCV) 82.4 81.0-99.0 N [facility] CenterSzawyjoGUOESYLUT8061-20-23 08:47:00 Test Item Value Reference Range Interpretation Comments Magnesium Lvl (test code = Magnesium 2.1 1.8-2.4 N Lvl) [facility] CampusPsualfnMTJXKZLFDZ2038-81-32 10:08:00 Test Item Value Reference Range Interpretation Comments Lymphocytes # (test code = Lymphocytes 1.4 1.0-5.5 N #) [facility] CampusYffguwgTHNGVUAIHQ9768-62-74 10:08:00 Test Item Value Reference Range Interpretation Comments Segs-Bands # (test code = Segs-Bands #) 9.1 1.5-8.1 H [facility] CampusBltuhmbDCPZITOJTF2884-78-78 10:08:00 Test Item Value Reference Range Interpretation Comments Monocytes # (test code 0.5 See_Comment N [Aut omated message] The = Monocytes #) system which generated this result tra nsmitted reference range : <=0.8. The reference r lina was not used to int erpret this result as normal/abnormal . [facility] CampusZopaiomELTBJTONUF2933-50-98 10:08:00 Test Item Value Reference Range Interpretation Comments Segs (test code = Segs) 81.5 45.0-75.0 H [facility] CampusUokakhiJMNNSZVOEN3329-75-54 10:08:00 Test Item Value Reference Range Interpretation Comments Lymphocytes (test code = Lymphocytes) 12.4 20.0-40.0 L [facility] CenterRpejksvFTYEAJIKO9267-47-47 10:08:00 Test Item Value Reference Range Interpretation Comments Magnesium Lvl (test code = Magnesium 2.0 1.8-2.4 N Lvl) [facility] CenterLsvqgebSWRONLOWB5168-83-52 10:08:00 Test Item Value Reference Range Interpretation Comments A/G Ratio (test code = A/G Ratio) 1.0 0.7-1.6 N [facility] CenterIwqjhcuRCECOINHI5131-75-87 10:08:00 Test Item Value Reference Range Interpretation Comments Globulin (test code = Globulin) 2.8 2.0-4.0 N [facility] CenterIdutiugDEXIBYFSJ1399-87-70 10:08:00 Test Item Value Reference Range Interpretation Comments B/C Ratio (test code = B/C Ratio) 26 6-25 H [facility] CenterKnopnukQWUMJZQVT6644-42-15 10:08:00 Test Item Value Reference Range Interpretation Comments AGAP (test code = AGAP) 13.8 10.0-20.0 N [facility] CenterPisbscqBKSKGFHKR8241-41-01 10:08:00 Test Item Value Reference Range Interpretation Comments ALT (test code = ALT) 16 See_Comment N [Auto mated message] The system which ge nerated this result transmit norris reference range : <=65. The reference range was not used to interpr et this result as darshana l/abnormal. [facility] CenterQlaakfbOLKDCVOOQ7957-93-55 10:08:00 Test Item Value Reference Range Interpretation Comments Alk Phos (test code = Alk Phos) 70 39-136 N [facility] CenterZwmlzjbCHCILZUHD6158-50-02 10:08:00 Test Item Value Reference Range Interpretation Comments Total Protein (test code = Total 5.5 6.4-8.4 L Protein) [facility] CenterUocqamnIILJFXJUG1471-26-21 10:08:00 Test Item Value Reference Range Interpretation Comments Albumin Lvl (test code = Albumin Lvl) 2.7 3.5-5.0 L [facility] CenterInuvarcVZAABUVKN9481-97-11 10:08:00 Test Item Value Reference Range Interpretation Comments Bili Total (test code = Bili Total) 0.5 0.2-1.3 N [facility] CenterNqhawekKHXVACLTE4844-72-29 10:08:00 Test Item Value Reference Range Interpretation Comments AST (test code = AST) 10 See_Comment N [Auto mated message] The system which ge nerated this result transmit norris reference range : <=37. The reference range was not used to interpr et this result as darshana l/abnormal. [facility] CenterQbusimxECLYVGEYC0523-76-09 10:08:00 Test Item Value Reference Range Interpretation Comments eGFR (test code = eGFR) 96 [facility] CenterLywfomwMILCECQZS6183-28-83 10:08:00 Test Item Value Reference Range Interpretation Comments BUN (test code = BUN) 13 7-22 N [facility] CenterCdcpascZHDWLEURQ3918-33-97 10:08:00 Test Item Value Reference Range Interpretation Comments Creatinine Lvl (test code = Creatinine 0.5 0.5-1.4 N Lvl) [facility] CenterZydsdhnDONXVTFGB9923-99-48 10:08:00 Test Item Value Reference Range Interpretation Comments Sodium Lvl (test code = Sodium Lvl) 146 135-145 H [facility] CenterMynirfwOXEKVMEXB5548-47-89 10:08:00 Test Item Value Reference Range Interpretation Comments Potassium Lvl (test code = Potassium 3.8 3.5-5.1 N Lvl) [facility] CenterWncvldtCGSDNUJYH5533-31-27 10:08:00 Test Item Value Reference Range Interpretation Comments Chloride Lvl (test code = Chloride Lvl) 108 95-109 N [facility] CenterNdfawtfQWMULROUD2948-81-62 10:08:00 Test Item Value Reference Range Interpretation Comments Glucose Lvl (test code = Glucose Lvl) 114 70-99 H [facility] CenterRgyuggmFIVOCUJTH5302-18-65 10:08:00 Test Item Value Reference Range Interpretation Comments Calcium Lvl (test code = Calcium Lvl) 7.4 8.5-10.5 L [facility] CenterPcndveiSSQAMIEHJ6965-83-44 10:08:00 Test Item Value Reference Range Interpretation Comments CO2 (test code = CO2) 28 24-32 N [facility] CampusEmugmxfEDXCJSBIQT5598-31-80 10:08:00 Test Item Value Reference Range Interpretation Comments MPV (test code = MPV) 9.9 7.4-10.4 N [facility] CampusDntxiufNQBZMLIRPY7497-36-66 10:08:00 Test Item Value Reference Range Interpretation Comments Platelet (test code = Platelet) 171 133-450 N [facility] CampusNbokbzrPOKFROLKJV1562-12-00 10:08:00 Test Item Value Reference Range Interpretation Comments RDW (test code = RDW) 15.9 11.5-14.5 H [facility] CampusXborgkkPQTEIAPVUL1788-86-97 10:08:00 Test Item Value Reference Range Interpretation Comments MCHC (test code = MCHC) 32.4 32.0-36.0 N [facility] CampusGuqzafgYMEAGFJESA3235-71-84 10:08:00 Test Item Value Reference Range Interpretation Comments Hct (test code = Hct) 30.6 36.0-48.0 L [facility]HkdvoxkRAXYQWKOHX6127-76-31 10:08:00 Test Item Value Reference Range Interpretation Comments RBC (test code = RBC) 3.70 4.20-5.40 L [facility] CampusGwkfvyaOXFUOSEQUN8311-43-60 10:08:00 Test Item Value Reference Range Interpretation Comments WBC (test code = WBC) 11.2 3.7-10.4 H [facility] CampusUwhqtpuBBQPPUOLDD4379-96-03 10:08:00 Test Item Value Reference Range Interpretation Comments Hgb (test code = Hgb) 9.9 12.0-16.0 L [facility] CampusVlkznefPDGFNTLJUG6866-32-74 10:08:00 Test Item Value Reference Range Interpretation Comments MCV (test code = MCV) 82.7 81.0-99.0 N [facility] CampusSyijmwtYIFBMGNGOJ1039-12-26 10:08:00 Test Item Value Reference Range Interpretation Comments MCH (test code = MCH) 26.8 pg 27.0-31.0 L [facility] CampusBjuiiavTEXCNFDPJX4183-17-34 10:08:00 Test Item Value Reference Range Interpretation Comments Eosinophils (test code = 2.0 See_Comment N [A utomated message] The Eosinophils) system which ge nerated this result tra nsmitted reference range : <=4.0. The reference r lina was not used to int erpret this result as normal/abnormal . [facility] CampusSkuhntjXVQOFUMXCF1977-75-41 10:08:00 Test Item Value Reference Range Interpretation Comments Monocytes (test code = Monocytes) 4.0 2.0-12.0 N [facility] CampusMxijbvpJHUEPBNFJB6413-16-76 10:08:00 Test Item Value Reference Range Interpretation Comments Basophils (test code = 0.1 See_Comment N [Aut omated message] The Basophils) system which ge nerated this result tra nsmitted reference range : <=1.0. The reference r lina was not used to int erpret this result as normal/abnormal . [facility] CampusGuzqtpjJDUKICPGOY4934-92-12 10:08:00 Test Item Value Reference Range Interpretation Comments Basophils # (test code 0.0 See_Comment N [Aut omated message] The = Basophils #) system which generated this result tra nsmitted reference range : <=0.2. The reference r lina was not used to int erpret this result as normal/abnormal . [facility] CampusBwaoxnzQEVUDVQPUH1812-27-36 10:08:00 Test Item Value Reference Range Interpretation Comments Eosinophils # (test code 0.2 See_Comment N [A utomated message] The = Eosinophils #) system whic h generated this result tra nsmitted reference range : <=0.5. The reference r lina was not used to int erpret this result as normal/abnormal . [facility] CampusXctnglaKDPFEMHEIG0531-01-41 10:08:00 Test Item Value Reference Range Interpretation Comments Lymphocytes # (test code = Lymphocytes 1.4 1.0-5.5 N #) [facility] CampusItomqamNAUXNTYXBU0225-11-10 10:08:00 Test Item Value Reference Range Interpretation Comments Segs-Bands # (test code = Segs-Bands #) 9.1 1.5-8.1 H [facility] CampusIrlkstzGBDRFERFGQ5528-35-17 10:08:00 Test Item Value Reference Range Interpretation Comments Monocytes # (test code 0.5 See_Comment N [Aut omated message] The = Monocytes #) system which generated this result tra nsmitted reference range : <=0.8. The reference r lina was not used to int erpret this result as normal/abnormal . [facility] CampusXcjxotjEFNGRYPGAJ7985-14-47 10:08:00 Test Item Value Reference Range Interpretation Comments Segs (test code = Segs) 81.5 45.0-75.0 H [facility] CampusJqmmbosBPWVUIAPQW3706-62-78 10:08:00 Test Item Value Reference Range Interpretation Comments Lymphocytes (test code = Lymphocytes) 12.4 20.0-40.0 L [facility]GrixmoqIJLMOVEDG8956-08-19 10:08:00 Test Item Value Reference Range Interpretation Comments Magnesium Lvl (test code = Magnesium 2.0 1.8-2.4 N Lvl) [facility] CenterCpvoergZMOSKJKDG7179-57-21 10:08:00 Test Item Value Reference Range Interpretation Comments A/G Ratio (test code = A/G Ratio) 1.0 0.7-1.6 N [facility] CenterNewcwndKATAESFXO6118-73-73 10:08:00 Test Item Value Reference Range Interpretation Comments Globulin (test code = Globulin) 2.8 2.0-4.0 N [facility] CenterFqybynaMDDUVWOHF4140-93-06 10:08:00 Test Item Value Reference Range Interpretation Comments B/C Ratio (test code = B/C Ratio) 26 6-25 H [facility] CenterTdkjdmtUKJKOMZBY3041-08-31 10:08:00 Test Item Value Reference Range Interpretation Comments AGAP (test code = AGAP) 13.8 10.0-20.0 N [facility] CenterBodgnsqPAMMGWKTB9215-01-21 10:08:00 Test Item Value Reference Range Interpretation Comments ALT (test code = ALT) 16 See_Comment N [Auto mated message] The system which ge nerated this result transmit norris reference range : <=65. The reference range was not used to interpr et this result as darshana l/abnormal. [facility] CenterWufaquyZRCHPKARH9512-56-80 10:08:00 Test Item Value Reference Range Interpretation Comments Alk Phos (test code = Alk Phos) 70 39-136 N [facility] CenterIserfdrUJAZSSHCA6448-01-71 10:08:00 Test Item Value Reference Range Interpretation Comments Total Protein (test code = Total 5.5 6.4-8.4 L Protein) [facility] CenterWgzgornGGMMVJTVG1881-17-94 10:08:00 Test Item Value Reference Range Interpretation Comments Albumin Lvl (test code = Albumin Lvl) 2.7 3.5-5.0 L [facility] CenterZdrbgleYDZHANPPW8196-27-02 10:08:00 Test Item Value Reference Range Interpretation Comments Bili Total (test code = Bili Total) 0.5 0.2-1.3 N [facility] CenterXieteaeYXVLCBJVC0346-48-88 10:08:00 Test Item Value Reference Range Interpretation Comments AST (test code = AST) 10 See_Comment N [Auto mated message] The system which ge nerated this result transmit norris reference range : <=37. The reference range was not used to interpr et this result as darshana l/abnormal. [facility] CenterPmvfwhsBFJPOWAJW6473-55-43 10:08:00 Test Item Value Reference Range Interpretation Comments eGFR (test code = eGFR) 96 [facility] CenterPnqyyrxCBHOJHRYH3516-71-43 10:08:00 Test Item Value Reference Range Interpretation Comments BUN (test code = BUN) 13 7-22 N [facility] CenterKdhmjluBPVHTWAXI8206-21-51 10:08:00 Test Item Value Reference Range Interpretation Comments Creatinine Lvl (test code = Creatinine 0.5 0.5-1.4 N Lvl) [facility] CenterNhhietbWBTNYEBZT0461-76-96 10:08:00 Test Item Value Reference Range Interpretation Comments Sodium Lvl (test code = Sodium Lvl) 146 135-145 H [facility] CenterPwlznixFCCKUQYUO4326-83-02 10:08:00 Test Item Value Reference Range Interpretation Comments Potassium Lvl (test code = Potassium 3.8 3.5-5.1 N Lvl) [facility] CenterAaozcpsJIXBTKNBF9306-85-12 10:08:00 Test Item Value Reference Range Interpretation Comments Chloride Lvl (test code = Chloride Lvl) 108 95-109 N [facility] CenterZfmbjibHWPSKFWUL4847-83-94 10:08:00 Test Item Value Reference Range Interpretation Comments Glucose Lvl (test code = Glucose Lvl) 114 70-99 H [facility] CenterTzwhtyfWPCUOIGRE5235-44-68 10:08:00 Test Item Value Reference Range Interpretation Comments Calcium Lvl (test code = Calcium Lvl) 7.4 8.5-10.5 L [facility] CenterThxcwhcXMOLMFUAW6473-42-63 10:08:00 Test Item Value Reference Range Interpretation Comments CO2 (test code = CO2) 28 24-32 N [facility] CampusUoiuoqhUGLRIASPSY8617-20-12 10:08:00 Test Item Value Reference Range Interpretation Comments MPV (test code = MPV) 9.9 7.4-10.4 N [facility] CampusGwrtzfaGYWCWMLUJV1723-81-25 10:08:00 Test Item Value Reference Range Interpretation Comments Platelet (test code = Platelet) 171 133-450 N [facility] CampusPkhxtclWJLRRTWWPT8341-52-94 10:08:00 Test Item Value Reference Range Interpretation Comments RDW (test code = RDW) 15.9 11.5-14.5 H [facility] CampusFnkgxacMDTJPMOMLB7811-67-74 10:08:00 Test Item Value Reference Range Interpretation Comments MCHC (test code = MCHC) 32.4 32.0-36.0 N [facility] CampusNwqtrfyVOVOGTIDJZ3667-35-40 10:08:00 Test Item Value Reference Range Interpretation Comments Hct (test code = Hct) 30.6 36.0-48.0 L [facility] CampusFeexqvxPFDHFZRPOJ3578-39-22 10:08:00 Test Item Value Reference Range Interpretation Comments RBC (test code = RBC) 3.70 4.20-5.40 L [facility] CampusDkphhznACNUKJVJVQ7223-50-29 10:08:00 Test Item Value Reference Range Interpretation Comments WBC (test code = WBC) 11.2 3.7-10.4 H [facility] CampusFjvttidOSWSWJYWRA4406-54-75 10:08:00 Test Item Value Reference Range Interpretation Comments Hgb (test code = Hgb) 9.9 12.0-16.0 L [facility] CampusOjfncupFXKNGBPQNB3363-48-67 10:08:00 Test Item Value Reference Range Interpretation Comments MCV (test code = MCV) 82.7 81.0-99.0 N [facility] CampusBtcrocnIFROCITFUX8300-07-74 10:08:00 Test Item Value Reference Range Interpretation Comments MCH (test code = MCH) 26.8 pg 27.0-31.0 L [facility] CampusWeglqzkSIOYLDFEVD1563-87-82 10:08:00 Test Item Value Reference Range Interpretation Comments Eosinophils (test code = 2.0 See_Comment N [A utomated message] The Eosinophils) system which ge nerated this result tra nsmitted reference range : <=4.0. The reference r lina was not used to int erpret this result as normal/abnormal . [facility] CampusBjrwxojEPXAOXQDVT8492-21-33 10:08:00 Test Item Value Reference Range Interpretation Comments Monocytes (test code = Monocytes) 4.0 2.0-12.0 N [facility] CampusVrwkjhxRXKAQGOKJC6977-88-50 10:08:00 Test Item Value Reference Range Interpretation Comments Basophils (test code = 0.1 See_Comment N [Aut omated message] The Basophils) system which ge nerated this result tra nsmitted reference range : <=1.0. The reference r lina was not used to int erpret this result as normal/abnormal . [facility] CampusKrxxeojCNDHLTZNXB9015-52-76 10:08:00 Test Item Value Reference Range Interpretation Comments Basophils # (test code 0.0 See_Comment N [Aut omated message] The = Basophils #) system which generated this result tra nsmitted reference range : <=0.2. The reference r lina was not used to int erpret this result as normal/abnormal . [facility] CampusBntnhxiTGZFTRXXIN7657-83-55 10:08:00 Test Item Value Reference Range Interpretation Comments Eosinophils # (test code 0.2 See_Comment N [A utomated message] The = Eosinophils #) system whic h generated this result tra nsmitted reference range : <=0.5. The reference r lina was not used to int erpret this result as normal/abnormal . [facility] CampusTcoenamFXAJQYYHGM0982-06-61 10:08:00 Test Item Value Reference Range Interpretation Comments Lymphocytes # (test code = Lymphocytes 1.4 1.0-5.5 N #) [facility] CampusChngtmhDGFWNKSNVL4025-29-32 10:08:00 Test Item Value Reference Range Interpretation Comments Segs-Bands # (test code = Segs-Bands #) 9.1 1.5-8.1 H [facility] CampusKllfnydRYUAOVNQWX4463-79-69 10:08:00 Test Item Value Reference Range Interpretation Comments Monocytes # (test code 0.5 See_Comment N [Aut omated message] The = Monocytes #) system which generated this result tra nsmitted reference range : <=0.8. The reference r lina was not used to int erpret this result as normal/abnormal . [facility] CampusHclphygPDWLCLYXFU4292-31-73 10:08:00 Test Item Value Reference Range Interpretation Comments Segs (test code = Segs) 81.5 45.0-75.0 H [facility] CampusEndyltiDHWHIGNZBU2251-00-17 10:08:00 Test Item Value Reference Range Interpretation Comments Lymphocytes (test code = Lymphocytes) 12.4 20.0-40.0 L [facility] CenterIzibqpaULAFZFGIV9493-38-64 10:08:00 Test Item Value Reference Range Interpretation Comments Magnesium Lvl (test code = Magnesium 2.0 1.8-2.4 N Lvl) [facility] CenterTckzyrdJEGBQHAZK0481-53-64 10:08:00 Test Item Value Reference Range Interpretation Comments A/G Ratio (test code = A/G Ratio) 1.0 0.7-1.6 N [facility] CenterVpuevmnVHTCTSBUG0971-18-46 10:08:00 Test Item Value Reference Range Interpretation Comments Globulin (test code = Globulin) 2.8 2.0-4.0 N [facility] CenterIguorglPIEESKSKF4983-31-28 10:08:00 Test Item Value Reference Range Interpretation Comments B/C Ratio (test code = B/C Ratio) 26 6-25 H [facility] CenterZplstmuTJXGJQVKH7689-80-19 10:08:00 Test Item Value Reference Range Interpretation Comments AGAP (test code = AGAP) 13.8 10.0-20.0 N [facility] CenterJoiyqbqUABNNIUGJ6218-26-79 10:08:00 Test Item Value Reference Range Interpretation Comments ALT (test code = ALT) 16 See_Comment N [Auto mated message] The system which ge nerated this result transmit norris reference range : <=65. The reference range was not used to interpr et this result as darshana l/abnormal. [facility] CenterKwxdqflVNJJWIMTG2192-71-28 10:08:00 Test Item Value Reference Range Interpretation Comments Alk Phos (test code = Alk Phos) 70 39-136 N [facility] CenterYppndgaATYRUGXLA4556-02-89 10:08:00 Test Item Value Reference Range Interpretation Comments Total Protein (test code = Total 5.5 6.4-8.4 L Protein) [facility] CenterGuiqbqxASDGDZMET2817-48-95 10:08:00 Test Item Value Reference Range Interpretation Comments Albumin Lvl (test code = Albumin Lvl) 2.7 3.5-5.0 L [facility] CenterDybzknrXWINERSBB4372-01-81 10:08:00 Test Item Value Reference Range Interpretation Comments Bili Total (test code = Bili Total) 0.5 0.2-1.3 N [facility] CenterAshvwaoFJAUFGBQP5031-84-24 10:08:00 Test Item Value Reference Range Interpretation Comments AST (test code = AST) 10 See_Comment N [Auto mated message] The system which ge nerated this result transmit norris reference range : <=37. The reference range was not used to interpr et this result as darshana l/abnormal. [facility] CenterTykallbACYCWXROH1963-85-44 10:08:00 Test Item Value Reference Range Interpretation Comments eGFR (test code = eGFR) 96 [facility] CenterUmlsqvmUUHELYAVQ5161-43-48 10:08:00 Test Item Value Reference Range Interpretation Comments BUN (test code = BUN) 13 7-22 N [facility] CenterXzyqrheQDAWYLNJW3258-23-05 10:08:00 Test Item Value Reference Range Interpretation Comments Creatinine Lvl (test code = Creatinine 0.5 0.5-1.4 N Lvl) [facility] CenterOyddeijNPGXGWPRP6644-09-26 10:08:00 Test Item Value Reference Range Interpretation Comments Sodium Lvl (test code = Sodium Lvl) 146 135-145 H [facility] CenterRgaorwnJUWDUGWTU2745-36-61 10:08:00 Test Item Value Reference Range Interpretation Comments Potassium Lvl (test code = Potassium 3.8 3.5-5.1 N Lvl) [facility] CenterLxubwvrUYCCWECCL5350-95-75 10:08:00 Test Item Value Reference Range Interpretation Comments Chloride Lvl (test code = Chloride Lvl) 108 95-109 N [facility] CenterOihlsdmRQTCNCMKT0682-43-67 10:08:00 Test Item Value Reference Range Interpretation Comments Glucose Lvl (test code = Glucose Lvl) 114 70-99 H [facility] CenterXqipbgfWQGPTMHLB3559-89-64 10:08:00 Test Item Value Reference Range Interpretation Comments Calcium Lvl (test code = Calcium Lvl) 7.4 8.5-10.5 L [facility] CenterHqlfiseTQBDKGCNM4650-16-85 10:08:00 Test Item Value Reference Range Interpretation Comments CO2 (test code = CO2) 28 24-32 N [facility] CampusUwxpzfyMAUXMGWIQO3132-83-57 10:08:00 Test Item Value Reference Range Interpretation Comments MPV (test code = MPV) 9.9 7.4-10.4 N [facility] CampusEcfuqziPEAVBHRJOJ5476-56-64 10:08:00 Test Item Value Reference Range Interpretation Comments Platelet (test code = Platelet) 171 133-450 N [facility] CampusMegqrmpMDQQXBCJCH1698-01-01 10:08:00 Test Item Value Reference Range Interpretation Comments RDW (test code = RDW) 15.9 11.5-14.5 H [facility] CampusHyovwhwOQXKDLGSFJ8258-74-18 10:08:00 Test Item Value Reference Range Interpretation Comments MCHC (test code = MCHC) 32.4 32.0-36.0 N [facility] CampusLfqybkgYSPEYDKNRY7467-28-56 10:08:00 Test Item Value Reference Range Interpretation Comments Hct (test code = Hct) 30.6 36.0-48.0 L [facility] CampusWbrbdieHOXLLFEJSL1857-20-56 10:08:00 Test Item Value Reference Range Interpretation Comments RBC (test code = RBC) 3.70 4.20-5.40 L [facility] CampusFrxahdlZOSUWPVVTQ8275-69-72 10:08:00 Test Item Value Reference Range Interpretation Comments WBC (test code = WBC) 11.2 3.7-10.4 H [facility] CampusAfzugjzFPFLIADWQN1170-15-38 10:08:00 Test Item Value Reference Range Interpretation Comments Hgb (test code = Hgb) 9.9 12.0-16.0 L [facility] CampusPqnzhaeMHHDJYFXCF7572-07-34 10:08:00 Test Item Value Reference Range Interpretation Comments MCV (test code = MCV) 82.7 81.0-99.0 N [facility] CampusLbxioogBVQLFSQSCF0931-60-53 10:08:00 Test Item Value Reference Range Interpretation Comments MCH (test code = MCH) 26.8 pg 27.0-31.0 L [facility] CampusZuowrotUFJPJHLIAU5292-71-42 10:08:00 Test Item Value Reference Range Interpretation Comments Eosinophils (test code = 2.0 See_Comment N [A utomated message] The Eosinophils) system which ge nerated this result tra nsmitted reference range : <=4.0. The reference r lina was not used to int erpret this result as normal/abnormal . [facility] CampusXnspmreXFFBUJAHAP3977-33-26 10:08:00 Test Item Value Reference Range Interpretation Comments Monocytes (test code = Monocytes) 4.0 2.0-12.0 N [facility] CampusOocnhvwDYHVTCGUAA2319-46-82 10:08:00 Test Item Value Reference Range Interpretation Comments Basophils (test code = 0.1 See_Comment N [Aut omated message] The Basophils) system which ge nerated this result tra nsmitted reference range : <=1.0. The reference r lina was not used to int erpret this result as normal/abnormal . [facility] CampusFkgvaqlKTATRPNQEM4243-16-91 10:08:00 Test Item Value Reference Range Interpretation Comments Basophils # (test code 0.0 See_Comment N [Aut omated message] The = Basophils #) system which generated this result tra nsmitted reference range : <=0.2. The reference r lina was not used to int erpret this result as normal/abnormal . [facility] CampusPaesvlfOSKZJSJYRM3945-79-18 10:08:00 Test Item Value Reference Range Interpretation Comments Eosinophils # (test code 0.2 See_Comment N [A utomated message] The = Eosinophils #) system ic h generated this result tra nsmitted reference range : <=0.5. The reference r lina was not used to int erpret this result as normal/abnormal . [facility] CenterBgkqqljAOPPSHZPT1010-83-92 10:08:00 Test Item Value Reference Range Interpretation Comments Magnesium Lvl (test code = Magnesium 2.0 1.8-2.4 N Lvl) [facility] CenterPciecjjARCSSYZOF5404-76-77 10:08:00 Test Item Value Reference Range Interpretation Comments A/G Ratio (test code = A/G Ratio) 1.0 0.7-1.6 N [facility] CenterRfxijobKAYXWMMZY0259-58-26 10:08:00 Test Item Value Reference Range Interpretation Comments Globulin (test code = Globulin) 2.8 2.0-4.0 N [facility] CenterJkfuybbFQNZJIWJZ7107-43-75 10:08:00 Test Item Value Reference Range Interpretation Comments B/C Ratio (test code = B/C Ratio) 26 6-25 H [facility] CenterPkuzxutGBYJSRILI2334-13-72 10:08:00 Test Item Value Reference Range Interpretation Comments AGAP (test code = AGAP) 13.8 10.0-20.0 N [facility] CenterNznmizgNIVZACEJN4678-25-98 10:08:00 Test Item Value Reference Range Interpretation Comments ALT (test code = ALT) 16 See_Comment N [Auto mated message] The system which ge nerated this result transmit norris reference range : <=65. The reference range was not used to interpr et this result as darshana l/abnormal. [facility] CenterSozykwzIZVAEIUKZ6578-29-39 10:08:00 Test Item Value Reference Range Interpretation Comments Alk Phos (test code = Alk Phos) 70 39-136 N [facility] CenterUcvvvlwCKIKCJNDJ0146-32-10 10:08:00 Test Item Value Reference Range Interpretation Comments Total Protein (test code = Total 5.5 6.4-8.4 L Protein) [facility] CenterKnucllgCCSEAXYCT6091-86-07 10:08:00 Test Item Value Reference Range Interpretation Comments Albumin Lvl (test code = Albumin Lvl) 2.7 3.5-5.0 L [facility] CenterIzenscjEQGDGZQUV5718-94-92 10:08:00 Test Item Value Reference Range Interpretation Comments Bili Total (test code = Bili Total) 0.5 0.2-1.3 N [facility] CenterAibgcelDQAPOJUSH2738-65-25 10:08:00 Test Item Value Reference Range Interpretation Comments AST (test code = AST) 10 See_Comment N [Auto mated message] The system which ge nerated this result transmit norris reference range : <=37. The reference range was not used to interpr et this result as darshana l/abnormal. [facility] CenterKdnwqweANHJLAPQC8568-38-30 10:08:00 Test Item Value Reference Range Interpretation Comments eGFR (test code = eGFR) 96 [facility] CenterEgjntbvJUJVVREVO7517-69-03 10:08:00 Test Item Value Reference Range Interpretation Comments BUN (test code = BUN) 13 7-22 N [facility] CenterYkpoozxCEQOOSQYZ0820-45-71 10:08:00 Test Item Value Reference Range Interpretation Comments Creatinine Lvl (test code = Creatinine 0.5 0.5-1.4 N Lvl) [facility] CenterTqkfksdCVEGEBNCY1032-27-46 10:08:00 Test Item Value Reference Range Interpretation Comments Sodium Lvl (test code = Sodium Lvl) 146 135-145 H [facility] CenterUotmmefYAJVPMFCH4025-62-36 10:08:00 Test Item Value Reference Range Interpretation Comments Potassium Lvl (test code = Potassium 3.8 3.5-5.1 N Lvl) [facility] CenterGodcpleINHKKXJLD0979-56-16 10:08:00 Test Item Value Reference Range Interpretation Comments Chloride Lvl (test code = Chloride Lvl) 108 95-109 N [facility] CenterZfnnhcdMVGXVXHUN8334-62-96 10:08:00 Test Item Value Reference Range Interpretation Comments Glucose Lvl (test code = Glucose Lvl) 114 70-99 H [facility] CenterKasgwmmSNPONUHDB3929-30-70 10:08:00 Test Item Value Reference Range Interpretation Comments Calcium Lvl (test code = Calcium Lvl) 7.4 8.5-10.5 L [facility] CenterXepcqfzVMIPAXAEU9631-55-54 10:08:00 Test Item Value Reference Range Interpretation Comments CO2 (test code = CO2) 28 24-32 N [facility] CampusQnlroguEZJGEIPSIY4794-70-80 10:08:00 Test Item Value Reference Range Interpretation Comments MPV (test code = MPV) 9.9 7.4-10.4 N [facility] CampusVardrtiJRWOGBNNNR0518-73-64 10:08:00 Test Item Value Reference Range Interpretation Comments Platelet (test code = Platelet) 171 133-450 N [facility] CampusXadhsruNUIBEBTSEX3840-96-14 10:08:00 Test Item Value Reference Range Interpretation Comments RDW (test code = RDW) 15.9 11.5-14.5 H [facility] CampusNqjvcgpIMDRHIIBVL6519-91-40 10:08:00 Test Item Value Reference Range Interpretation Comments MCHC (test code = MCHC) 32.4 32.0-36.0 N [facility] CampusTewpwmyDZACDMBYSV3795-15-65 10:08:00 Test Item Value Reference Range Interpretation Comments Hct (test code = Hct) 30.6 36.0-48.0 L [facility] CampusFobeedsPWFXBATIQN2659-15-79 10:08:00 Test Item Value Reference Range Interpretation Comments RBC (test code = RBC) 3.70 4.20-5.40 L [facility] CampusQjgcluvZBBBAKKHMA1579-57-41 10:08:00 Test Item Value Reference Range Interpretation Comments WBC (test code = WBC) 11.2 3.7-10.4 H [facility] CampusRjwuufiICROJPALVK4369-87-91 10:08:00 Test Item Value Reference Range Interpretation Comments Hgb (test code = Hgb) 9.9 12.0-16.0 L [facility] CampusBimxsmqNVSMKGAQOG2217-98-97 10:08:00 Test Item Value Reference Range Interpretation Comments MCV (test code = MCV) 82.7 81.0-99.0 N [facility] CampusXucmmmgLRDTYLPIWY1518-61-53 10:08:00 Test Item Value Reference Range Interpretation Comments MCH (test code = MCH) 26.8 pg 27.0-31.0 L [facility] CampusZbyxmwwFZJJMNZKZJ6402-87-22 10:08:00 Test Item Value Reference Range Interpretation Comments Eosinophils (test code = 2.0 See_Comment N [A utomated message] The Eosinophils) system which ge nerated this result tra nsmitted reference range : <=4.0. The reference r lina was not used to int erpret this result as normal/abnormal . [facility] CampusRxwjbdeJIKKFOPWJC5842-55-09 10:08:00 Test Item Value Reference Range Interpretation Comments Monocytes (test code = Monocytes) 4.0 2.0-12.0 N [facility] CampusMxxetbvYWAVFJNBLG5883-38-01 10:08:00 Test Item Value Reference Range Interpretation Comments Basophils (test code = 0.1 See_Comment N [Aut omated message] The Basophils) system which ge nerated this result tra nsmitted reference range : <=1.0. The reference r lina was not used to int erpret this result as normal/abnormal . [facility] CampusMhkrumhPORBFYRZGB4403-35-49 10:08:00 Test Item Value Reference Range Interpretation Comments Basophils # (test code 0.0 See_Comment N [Aut omated message] The = Basophils #) system which generated this result tra nsmitted reference range : <=0.2. The reference r lina was not used to int erpret this result as normal/abnormal . [facility] CampusAsxjveuOFOIZAWSLM1813-48-42 10:08:00 Test Item Value Reference Range Interpretation Comments Eosinophils # (test code 0.2 See_Comment N [A utomated message] The = Eosinophils #) system whic h generated this result tra nsmitted reference range : <=0.5. The reference r lina was not used to int erpret this result as normal/abnormal . [facility] CampusKyoszqiVJKSVBTYTW5654-50-20 10:08:00 Test Item Value Reference Range Interpretation Comments Lymphocytes # (test code = Lymphocytes 1.4 1.0-5.5 N #) [facility] CampusPawbarmODSPIECGAY1362-77-70 10:08:00 Test Item Value Reference Range Interpretation Comments Segs-Bands # (test code = Segs-Bands #) 9.1 1.5-8.1 H [facility] CampusUuvkirgIHOYPXAYBR3326-39-97 10:08:00 Test Item Value Reference Range Interpretation Comments Monocytes # (test code 0.5 See_Comment N [Aut omated message] The = Monocytes #) system which generated this result tra nsmitted reference range : <=0.8. The reference r lina was not used to int erpret this result as normal/abnormal . [facility] CampusEzbgcdiSOOEBVVRPV9667-30-01 10:08:00 Test Item Value Reference Range Interpretation Comments Segs (test code = Segs) 81.5 45.0-75.0 H [facility] CampusMsmdhreFDNBJWLXEZ6984-12-19 10:08:00 Test Item Value Reference Range Interpretation Comments Lymphocytes (test code = Lymphocytes) 12.4 20.0-40.0 L [facility] CenterTzigzvzFhuqnzdonbun5005-29-84 00:40:07 Test Item Value Reference Range Interpretation Comments Culture: Urine (test code = Culture: Urine) [facility] CenterYdpmwdmSmqepglggbdr2105-83-04 00:40:07 Test Item Value Reference Range Interpretation Comments Culture: Urine (test code = Culture: Urine) [facility] CenterDssqjfcXbxfaunepddo4062-26-50 00:40:07 Test Item Value Reference Range Interpretation Comments Culture: Urine (test code = Culture: Urine) [facility] CenterWhabsawYuhuzdyeagyf6333-44-56 00:40:07 Test Item Value Reference Range Interpretation Comments Culture: Urine (test code = Culture: Urine) [facility]XdkylppXZCZTIPMS3011-72-57 10:40:00 Test Item Value Reference Range Interpretation Comments Bili Total (test code = Bili Total) 0.4 0.2-1.3 N [facility] CenterXxadkfeHLOGCQGBN7798-42-39 10:40:00 Test Item Value Reference Range Interpretation Comments ALT (test code = ALT) 18 See_Comment N [Auto mated message] The system which ge nerated this result transmit norris reference range : <=65. The reference range was not used to interpr et this result as darshana l/abnormal. [facility] CenterXbphhpnAROMPSBNF9924-32-67 10:40:00 Test Item Value Reference Range Interpretation Comments Alk Phos (test code = Alk Phos) 62 39-136 N [facility] CenterOcoozwnEGGHFYSYX6979-97-68 10:40:00 Test Item Value Reference Range Interpretation Comments Total Protein (test code = Total 6.1 6.4-8.4 L Protein) [facility] CenterBxtvkauUVZCAPCYF5976-63-18 10:40:00 Test Item Value Reference Range Interpretation Comments AST (test code = AST) 14 See_Comment N [Auto mated message] The system which ge nerated this result transmit norrsi reference range : <=37. The reference range was not used to interpr et this result as darshana l/abnormal. [facility] CenterLtddkxgTWWTCADOO4534-32-62 10:40:00 Test Item Value Reference Range Interpretation Comments Albumin Lvl (test code = Albumin Lvl) 2.7 3.5-5.0 L [facility] CenterNbzrrfnKPWIQHEQQ6274-56-01 10:40:00 Test Item Value Reference Range Interpretation Comments A/G Ratio (test code = A/G Ratio) 0.8 0.7-1.6 N [facility] CenterGrnddwaPVSYAVRNC5987-51-69 10:40:00 Test Item Value Reference Range Interpretation Comments Globulin (test code = Globulin) 3.4 2.0-4.0 N [facility] CenterGcsbegiNTBIQZYJH7498-93-29 10:40:00 Test Item Value Reference Range Interpretation Comments B/C Ratio (test code = B/C Ratio) 14 6-25 N [facility] PasoEmhjixyEJZZHKOQS0482-04-96 10:40:00 Test Item Value Reference Range Interpretation Comments Bili Total (test code = Bili Total) 0.4 0.2-1.3 N [facility] CenterWjbtuszWAXYYFZGU6847-20-08 10:40:00 Test Item Value Reference Range Interpretation Comments ALT (test code = ALT) 18 See_Comment N [Auto mated message] The system which ge nerated this result transmit norris reference range : <=65. The reference range was not used to interpr et this result as darshana l/abnormal. [facility] PasoCmdcgitTMCRZRAIG0408-76-27 10:40:00 Test Item Value Reference Range Interpretation Comments Alk Phos (test code = Alk Phos) 62 39-136 N [facility] PasoJidnhvqKMBKQPJVT7884-89-27 10:40:00 Test Item Value Reference Range Interpretation Comments Total Protein (test code = Total 6.1 6.4-8.4 L Protein) [facility] CenterZqnfwpkHQMQZXFGJ8136-11-57 10:40:00 Test Item Value Reference Range Interpretation Comments AST (test code = AST) 14 See_Comment N [Auto mated message] The system which ge nerated this result transmit norris reference range : <=37. The reference range was not used to interpr et this result as darshana l/abnormal. [facility] PasoMsynscxQIYDNYIFI8228-21-94 10:40:00 Test Item Value Reference Range Interpretation Comments Albumin Lvl (test code = Albumin Lvl) 2.7 3.5-5.0 L [facility] PasoEpxbcrrQAWVIYEOA3843-19-45 10:40:00 Test Item Value Reference Range Interpretation Comments A/G Ratio (test code = A/G Ratio) 0.8 0.7-1.6 N [facility] PasoFwjtqbxQVMMWRNTM5227-87-17 10:40:00 Test Item Value Reference Range Interpretation Comments Globulin (test code = Globulin) 3.4 2.0-4.0 N [facility] PasoEaflmfrGWIOMBKQW5721-38-48 10:40:00 Test Item Value Reference Range Interpretation Comments B/C Ratio (test code = B/C Ratio) 14 6-25 N [facility] PasoHlqrwcrIBZSFWKHY0730-37-74 10:40:00 Test Item Value Reference Range Interpretation Comments Bili Total (test code = Bili Total) 0.4 0.2-1.3 N [facility] PasoPlsrjfcXHTEBGWVU6843-68-95 10:40:00 Test Item Value Reference Range Interpretation Comments ALT (test code = ALT) 18 See_Comment N [Auto mated message] The system which ge nerated this result transmit norris reference range : <=65. The reference range was not used to interpr et this result as darshana l/abnormal. [facility] PasoJyuhsjlKCDMJWGRG3643-10-66 10:40:00 Test Item Value Reference Range Interpretation Comments Alk Phos (test code = Alk Phos) 62 39-136 N [facility] PasoEurcuepADXJPPKWK7204-08-19 10:40:00 Test Item Value Reference Range Interpretation Comments Total Protein (test code = Total 6.1 6.4-8.4 L Protein) [facility] PasoAajsxfgGBBOZBYTR6862-40-40 10:40:00 Test Item Value Reference Range Interpretation Comments AST (test code = AST) 14 See_Comment N [Auto mated message] The system which ge nerated this result transmit norris reference range : <=37. The reference range was not used to interpr et this result as darshana l/abnormal. [facility] PasoAsjpefxBPWFAEVBR0273-44-50 10:40:00 Test Item Value Reference Range Interpretation Comments Albumin Lvl (test code = Albumin Lvl) 2.7 3.5-5.0 L [facility] PasoDsaxjdiBKXWSEBAA0585-54-25 10:40:00 Test Item Value Reference Range Interpretation Comments A/G Ratio (test code = A/G Ratio) 0.8 0.7-1.6 N [facility] PasoFhixpxgSHASDNMUA4342-57-51 10:40:00 Test Item Value Reference Range Interpretation Comments Globulin (test code = Globulin) 3.4 2.0-4.0 N [facility] PasoQmebtbdPARBZKKDK5108-25-47 10:40:00 Test Item Value Reference Range Interpretation Comments B/C Ratio (test code = B/C Ratio) 14 6-25 N [facility] PasoBtfumbeEFTWDVNRK9861-90-62 10:40:00 Test Item Value Reference Range Interpretation Comments Bili Total (test code = Bili Total) 0.4 0.2-1.3 N [facility] PasoVtcztqmXKIFTFGVQ7302-06-80 10:40:00 Test Item Value Reference Range Interpretation Comments ALT (test code = ALT) 18 See_Comment N [Auto mated message] The system which ge nerated this result transmit norris reference range : <=65. The reference range was not used to interpr et this result as darshana l/abnormal. [facility] MaumyvqBGMGOENCR6876-41-63 10:40:00 Test Item Value Reference Range Interpretation Comments Alk Phos (test code = Alk Phos) 62 39-136 N [facility] PasoMbioegbDOKGUZFWL5816-23-84 10:40:00 Test Item Value Reference Range Interpretation Comments Total Protein (test code = Total 6.1 6.4-8.4 L Protein) [facility] PasoZttjfsuNLIASCLSZ8172-89-36 10:40:00 Test Item Value Reference Range Interpretation Comments AST (test code = AST) 14 See_Comment N [Auto mated message] The system which ge nerated this result transmit norris reference range : <=37. The reference range was not used to interpr et this result as darshana l/abnormal. [facility] FthqbfuAOVKXAZBK2273-60-09 10:40:00 Test Item Value Reference Range Interpretation Comments Albumin Lvl (test code = Albumin Lvl) 2.7 3.5-5.0 L [facility] OgdwptrUEYYHVWME7832-83-56 10:40:00 Test Item Value Reference Range Interpretation Comments A/G Ratio (test code = A/G Ratio) 0.8 0.7-1.6 N [facility] FihbbilOKZZXWJLX1325-60-99 10:40:00 Test Item Value Reference Range Interpretation Comments Globulin (test code = Globulin) 3.4 2.0-4.0 N [facility] RumvapmRMAPRSAOU4190-78-45 10:40:00 Test Item Value Reference Range Interpretation Comments B/C Ratio (test code = B/C Ratio) 14 6-25 N [facility] PasoOjmbcnjRWCYMAFVMW1142-73-16 18:27:00 Test Item Value Reference Range Interpretation Comments UA Sq Epi (test code Occasional /LPF = UA Sq Epi) *NA*(04/21/2012 12:27:00) [facility] PasoZrehcgqOMNRFBOHFZ8196-14-60 18:27:00 Test Item Value Reference Range Interpretation Comments UA Leuk Est (test Moderate A code = UA Leuk Est) *ABN*(04/21/2012 12:27:00) [facility]UbmnyezSWJTNZRRIE0447-38-86 18:27:00 Test Item Value Reference Range Interpretation Comments UA WBC (test code = 6 See_Comment H [Automa norris message] The UA WBC) system which ge nerated this result transmit norris reference range : <=5. The reference range was not used to interpr et this result as darshana l/abnormal. [facility]anoUngfoynCCZYBISZOP9485-27-08 18:27:00 Test Item Value Reference Range Interpretation Comments UA RBC (test code = 34 See_Comment H [Automa norris message] The UA RBC) system which ge nerated this result transmit norris reference range : <=2. The reference range was not used to interpr et this result as darshana l/abnormal. [facility]QpcxbhoDDXNNLCXUT6399-22-35 18:27:00 Test Item Value Reference Range Interpretation Comments UA CaOx Mey (test Occasional /HPF code = UA CaOx Mey) *NA*(04/21/2012 12:27:00) [facility] NorthwestRdrmzwwUSZVPRKTZD3354-20-59 18:27:00 Test Item Value Reference Range Interpretation Comments UA Mucus (test code = Few /LPF UA Mucus) *NA*(04/21/2012 12:27:00) [facility]anoTkprxyqPKAZFYLKCG0561-95-87 18:27:00 Test Item Value Reference Range Interpretation Comments UA Bacteria (test code Occasional /HPF = UA Bacteria) *NA*(04/21/2012 12:27:00) [facility] NorthwestBgofhfzDEPLUEQCOT4380-48-40 18:27:00 Test Item Value Reference Range Interpretation Comments UA Bili (test code = Negative *NA*(04/21/2012 UA Bili) 12:27:00) [facility]anoUryeyseRPMPHEOBEY7773-30-97 18:27:00 Test Item Value Reference Range Interpretation Comments UA Blood (test code = Moderate A UA Blood) *ABN*(04/21/2012 12:27:00) [facility] NorthwestTqphwlvZUOWLUTTFE2847-04-22 18:27:00 Test Item Value Reference Range Interpretation Comments UA Nitrite (test code Negative (04/21/2012 N = UA Nitrite) 12:27:00) [facility] NorthwestMfhyiaaBCTVCOYVXQ1853-92-22 18:27:00 Test Item Value Reference Range Interpretation Comments UA Glucose (test code Negative mg/dL = UA Glucose) *NA*(04/21/2012 12:27:00) [facility] NorthwestYnycckzJXDAJSIWYZ7947-51-59 18:27:00 Test Item Value Reference Range Interpretation Comments UA Ketones (test code = 20 mg/dL A UA Ketones) *ABN*(04/21/2012 12:27:00) [facility] NorthwestSbvkwafEBNRDIXDOR9574-44-10 18:27:00 Test Item Value Reference Range Interpretation Comments UA Urobilinogen (test code *NA*(04/21/2012 0.1-1.0 = UA Urobilinogen) 12:27:00) [facility] NorthwestRpsfldcVGUNKSKBIN4640-93-09 18:27:00 Test Item Value Reference Range Interpretation Comments UA Color (test code = UA Color) Ltyellow [facility] NorthwestRxrnrpqNTKYGAPGYB0033-71-86 18:27:00 Test Item Value Reference Range Interpretation Comments UA Protein (test code Negative mg/dL N = UA Protein) (04/21/2012 12:27:00) [facility] NorthwestCxvtzamOEMTSIJAXX1960-24-63 18:27:00 Test Item Value Reference Range Interpretation Comments UA Turbidity (test code = Clear (04/21/2012 N UA Turbidity) 12:27:00) [facility] NorthwestLfaydktRQOQUIKBVL9863-67-16 18:27:00 Test Item Value Reference Range Interpretation Comments UA pH (test code = UA pH) 5.0 5.0-8.0 N [facility] NorthwestBcslszvDBPICDTEPV4165-27-41 18:27:00 Test Item Value Reference Range Interpretation Comments UA Spec Grav (test code = UA Spec Grav) 1.011 N [facility] NorthwestEkvikrpDEGACGKNEM0360-08-19 18:27:00 Test Item Value Reference Range Interpretation Comments UA Sq Epi (test code Occasional /LPF = UA Sq Epi) *NA*(04/21/2012 12:27:00) [facility] NorthwestYcnnfcvRBCMMPFAAT6723-84-36 18:27:00 Test Item Value Reference Range Interpretation Comments UA Leuk Est (test Moderate A code = UA Leuk Est) *ABN*(04/21/2012 12:27:00) [facility] NorthwestFpqcpoeFPWLLBLOSZ3063-23-30 18:27:00 Test Item Value Reference Range Interpretation Comments UA WBC (test code = 6 See_Comment H [Automa norris message] The UA WBC) system which ge nerated this result transmit norris reference range : <=5. The reference range was not used to interpr et this result as darshana l/abnormal. [facility] NorthwestSczzymzXOTPXAPTKE8436-31-84 18:27:00 Test Item Value Reference Range Interpretation Comments UA RBC (test code = 34 See_Comment H [Automa norris message] The UA RBC) system which ge nerated this result transmit norris reference range : <=2. The reference range was not used to interpr et this result as darshana l/abnormal. [facility]anoQnzbbjkRPOKQLRLNH1637-74-98 18:27:00 Test Item Value Reference Range Interpretation Comments UA CaOx Mey (test Occasional /HPF code = UA CaOx Mey) *NA*(04/21/2012 12:27:00) [facility] NorthwestCevnhnuSSASFOWGTH7934-42-44 18:27:00 Test Item Value Reference Range Interpretation Comments UA Mucus (test code = Few /LPF UA Mucus) *NA*(04/21/2012 12:27:00) [facility]anoTyvjpmeKMTVKDCUQD1510-22-88 18:27:00 Test Item Value Reference Range Interpretation Comments UA Bacteria (test code Occasional /HPF = UA Bacteria) *NA*(04/21/2012 12:27:00) [facility]anoQoipwabJYXPWLNWAU7001-99-97 18:27:00 Test Item Value Reference Range Interpretation Comments UA Bili (test code = Negative *NA*(04/21/2012 UA Bili) 12:27:00) [facility] NorthwestLyflqdqWWSFJINBIS1854-89-58 18:27:00 Test Item Value Reference Range Interpretation Comments UA Blood (test code = Moderate A UA Blood) *ABN*(04/21/2012 12:27:00) [facility]anoRosebshIZOLSYZOBP2065-79-19 18:27:00 Test Item Value Reference Range Interpretation Comments UA Nitrite (test code Negative (04/21/2012 N = UA Nitrite) 12:27:00) [facility]anoDxyecaoKJCPXRXFUY0197-67-73 18:27:00 Test Item Value Reference Range Interpretation Comments UA Glucose (test code Negative mg/dL = UA Glucose) *NA*(04/21/2012 12:27:00) [facility]anoIdkozbcYWVTSPDCMW4716-95-06 18:27:00 Test Item Value Reference Range Interpretation Comments UA Ketones (test code = 20 mg/dL A UA Ketones) *ABN*(04/21/2012 12:27:00) [facility] NorthwestXrumppnLOLLMNWBPG3957-90-83 18:27:00 Test Item Value Reference Range Interpretation Comments UA Urobilinogen (test code *NA*(04/21/2012 0.1-1.0 = UA Urobilinogen) 12:27:00) [facility] NorthwestBqstpkfBOXUGMCNIT4306-63-18 18:27:00 Test Item Value Reference Range Interpretation Comments UA Color (test code = UA Color) Ltyellow [facility] NorthwestUfcnbwrVEXMWWGQQQ4947-66-21 18:27:00 Test Item Value Reference Range Interpretation Comments UA Protein (test code Negative mg/dL N = UA Protein) (04/21/2012 12:27:00) [facility] NorthwestMqjyoztLHADFZTIFC5392-06-96 18:27:00 Test Item Value Reference Range Interpretation Comments UA Turbidity (test code = Clear (04/21/2012 N UA Turbidity) 12:27:00) [facility] NorthwestInllehcMBUCMXGRKM9629-75-04 18:27:00 Test Item Value Reference Range Interpretation Comments UA pH (test code = UA pH) 5.0 5.0-8.0 N [facility] NorthwestLwvappiYXUIXGDHHW9822-04-71 18:27:00 Test Item Value Reference Range Interpretation Comments UA Spec Grav (test code = UA Spec Grav) 1.011 N [facility] NorthwestPdluhwkHROVIRICQO8890-47-84 18:27:00 Test Item Value Reference Range Interpretation Comments UA Sq Epi (test code Occasional /LPF = UA Sq Epi) *NA*(04/21/2012 12:27:00) [facility] NorthwestSafhpalCFPKFVYVTJ3504-63-99 18:27:00 Test Item Value Reference Range Interpretation Comments UA Leuk Est (test Moderate A code = UA Leuk Est) *ABN*(04/21/2012 12:27:00) [facility] NorthwestUmthrvpVKQDZCWLIC3258-49-28 18:27:00 Test Item Value Reference Range Interpretation Comments UA WBC (test code = 6 See_Comment H [Automa norris message] The UA WBC) system which ge nerated this result transmit norris reference range : <=5. The reference range was not used to interpr et this result as darshana l/abnormal. [facility] NorthwestAekfpsqEHAXNHPJIJ8319-56-55 18:27:00 Test Item Value Reference Range Interpretation Comments UA RBC (test code = 34 See_Comment H [Automa norris message] The UA RBC) system which ge nerated this result transmit norrsi reference range : <=2. The reference range was not used to interpr et this result as darshana l/abnormal. [facility] NorthwestHifzojyJQSJLSPVXK5077-17-48 18:27:00 Test Item Value Reference Range Interpretation Comments UA CaOx Mey (test Occasional /HPF code = UA CaOx Mey) *NA*(04/21/2012 12:27:00) [facility] NorthwestNbgdjzwSFIMUGPEBY3588-29-58 18:27:00 Test Item Value Reference Range Interpretation Comments UA Mucus (test code = Few /LPF UA Mucus) *NA*(04/21/2012 12:27:00) [facility] NorthwestKncvksnSCHFJIPAIJ6790-92-00 18:27:00 Test Item Value Reference Range Interpretation Comments UA Bacteria (test code Occasional /HPF = UA Bacteria) *NA*(04/21/2012 12:27:00) [facility] NorthwestGdpcwifSGLJCWBMUT0110-05-94 18:27:00 Test Item Value Reference Range Interpretation Comments UA Bili (test code = Negative *NA*(04/21/2012 UA Bili) 12:27:00) [facility] NorthwestSwcgwoeUNAYCCXDRT6349-60-48 18:27:00 Test Item Value Reference Range Interpretation Comments UA Blood (test code = Moderate A UA Blood) *ABN*(04/21/2012 12:27:00) [facility] NorthwestAkzlzsjXTUNNCRUKN8438-35-86 18:27:00 Test Item Value Reference Range Interpretation Comments UA Nitrite (test code Negative (04/21/2012 N = UA Nitrite) 12:27:00) [facility] NorthwestGuujxcrAYBUXNOWMW3848-95-36 18:27:00 Test Item Value Reference Range Interpretation Comments UA Glucose (test code Negative mg/dL = UA Glucose) *NA*(04/21/2012 12:27:00) [facility] NorthwestUvgzngaPSBUIAWHTQ2907-09-81 18:27:00 Test Item Value Reference Range Interpretation Comments UA Ketones (test code = 20 mg/dL A UA Ketones) *ABN*(04/21/2012 12:27:00) [facility] NorthwestAedmxtiGYJCIXCXQO6766-65-41 18:27:00 Test Item Value Reference Range Interpretation Comments UA Urobilinogen (test code *NA*(04/21/2012 0.1-1.0 = UA Urobilinogen) 12:27:00) [facility] NorthwestElvjkbzJRVZZZZOGW6276-30-10 18:27:00 Test Item Value Reference Range Interpretation Comments UA Color (test code = UA Color) Ltyellow [facility] NorthwestTawqszxCVUCJJWBUY9214-08-50 18:27:00 Test Item Value Reference Range Interpretation Comments UA Protein (test code Negative mg/dL N = UA Protein) (04/21/2012 12:27:00) [facility] NorthwestFjnnrrdPOAWIWASCZ9323-24-13 18:27:00 Test Item Value Reference Range Interpretation Comments UA Turbidity (test code = Clear (04/21/2012 N UA Turbidity) 12:27:00) [facility] NorthwestAlrdihdRBUVLEAORH5653-84-33 18:27:00 Test Item Value Reference Range Interpretation Comments UA pH (test code = UA pH) 5.0 5.0-8.0 N [facility] NorthwestYxhuzkfPXQNHRGZZU0742-70-23 18:27:00 Test Item Value Reference Range Interpretation Comments UA Spec Grav (test code = UA Spec Grav) 1.011 N [facility] NorthwestDbdplapUZOKHIQBYS8008-17-43 18:27:00 Test Item Value Reference Range Interpretation Comments UA Sq Epi (test code Occasional /LPF = UA Sq Epi) *NA*(04/21/2012 12:27:00) [facility] NorthwestXuoqalxXRXKEJSCWG9680-17-01 18:27:00 Test Item Value Reference Range Interpretation Comments UA Leuk Est (test Moderate A code = UA Leuk Est) *ABN*(04/21/2012 12:27:00) [facility] NorthwestNiwllmsLGTIJNPLDL5675-70-55 18:27:00 Test Item Value Reference Range Interpretation Comments UA WBC (test code = 6 See_Comment H [Automa norris message] The UA WBC) system which ge nerated this result transmit norris reference range : <=5. The reference range was not used to interpr et this result as darshana l/abnormal. [facility] NorthwestYadifsfKGIFAGLTKY8123-32-81 18:27:00 Test Item Value Reference Range Interpretation Comments UA RBC (test code = 34 See_Comment H [Automa norris message] The UA RBC) system which ge nerated this result transmit norris reference range : <=2. The reference range was not used to interpr et this result as darshana l/abnormal. [facility] NorthwestWytqdofVYRDDEHSUI7626-51-37 18:27:00 Test Item Value Reference Range Interpretation Comments UA CaOx Mey (test Occasional /HPF code = UA CaOx Mey) *NA*(04/21/2012 12:27:00) [facility] NorthwestGtpgipdFCFCFVQNHS4947-15-61 18:27:00 Test Item Value Reference Range Interpretation Comments UA Mucus (test code = Few /LPF UA Mucus) *NA*(04/21/2012 12:27:00) [facility] NorthwestLhhxxvoFMDUAJVQHN9546-45-31 18:27:00 Test Item Value Reference Range Interpretation Comments UA Bacteria (test code Occasional /HPF = UA Bacteria) *NA*(04/21/2012 12:27:00) [facility] NorthwestSysfyhsUVNAJSPCZF0145-72-11 18:27:00 Test Item Value Reference Range Interpretation Comments UA Bili (test code = Negative *NA*(04/21/2012 UA Bili) 12:27:00) [facility] NorthwestGingshhLHRAYQXVTO6681-62-98 18:27:00 Test Item Value Reference Range Interpretation Comments UA Blood (test code = Moderate A UA Blood) *ABN*(04/21/2012 12:27:00) [facility]JgkjxufKLZJSDGOLP2452-37-63 18:27:00 Test Item Value Reference Range Interpretation Comments UA Nitrite (test code Negative (04/21/2012 N = UA Nitrite) 12:27:00) [facility] NorthwestZnbxoraETGXDPRSXH7370-08-45 18:27:00 Test Item Value Reference Range Interpretation Comments UA Glucose (test code Negative mg/dL = UA Glucose) *NA*(04/21/2012 12:27:00) [facility] NorthwestLjzsevjEADZYFNDCB0103-48-12 18:27:00 Test Item Value Reference Range Interpretation Comments UA Ketones (test code = 20 mg/dL A UA Ketones) *ABN*(04/21/2012 12:27:00) [facility] NorthwestDxsjissGMMLFPZMEX2850-46-31 18:27:00 Test Item Value Reference Range Interpretation Comments UA Urobilinogen (test code *NA*(04/21/2012 0.1-1.0 = UA Urobilinogen) 12:27:00) [facility] NorthwestOtdrryvFLQYEITAYY4920-41-77 18:27:00 Test Item Value Reference Range Interpretation Comments UA Color (test code = UA Color) Ltyellow [facility] NorthwestCqqpbujDGRIHRUFWS4500-60-84 18:27:00 Test Item Value Reference Range Interpretation Comments UA Protein (test code Negative mg/dL N = UA Protein) (04/21/2012 12:27:00) [facility] NorthwestSjwucfjHYZFNQFVUL7503-35-96 18:27:00 Test Item Value Reference Range Interpretation Comments UA Turbidity (test code = Clear (04/21/2012 N UA Turbidity) 12:27:00) [facility] NorthwestFqcfncqGFRDNSOIDO0434-56-95 18:27:00 Test Item Value Reference Range Interpretation Comments UA pH (test code = UA pH) 5.0 5.0-8.0 N [facility] NorthwestPetfwxjQYLDDJHPYT4928-85-40 18:27:00 Test Item Value Reference Range Interpretation Comments UA Spec Grav (test code = UA Spec Grav) 1.011 N [facility]RcympxxVKUASUNWI8376-55-07 09:55:00 Test Item Value Reference Range Interpretation Comments Phosphorus (test code = Phosphorus) 2.8 2.5-4.5 N [facility] CenterNgwajknBJXNTCXJL7819-51-54 09:55:00 Test Item Value Reference Range Interpretation Comments Magnesium Lvl (test code = Magnesium 1.8 1.8-2.4 N Lvl) [facility] CenterImqpbptADISSIQVT6619-91-45 09:55:00 Test Item Value Reference Range Interpretation Comments Phosphorus (test code = Phosphorus) 2.8 2.5-4.5 N [facility] CenterMhskkvsFEHAWNQWY1668-17-84 09:55:00 Test Item Value Reference Range Interpretation Comments Magnesium Lvl (test code = Magnesium 1.8 1.8-2.4 N Lvl) [facility] CenterKfccvdzXRYPEFWND3044-69-64 09:55:00 Test Item Value Reference Range Interpretation Comments Phosphorus (test code = Phosphorus) 2.8 2.5-4.5 N [facility] CenterCmozzmxGYIQRLZQV7895-71-51 09:55:00 Test Item Value Reference Range Interpretation Comments Magnesium Lvl (test code = Magnesium 1.8 1.8-2.4 N Lvl) [facility] CenterLvnwkinONLVUPNDP1320-63-53 09:55:00 Test Item Value Reference Range Interpretation Comments Phosphorus (test code = Phosphorus) 2.8 2.5-4.5 N [facility] CenterXeppsobALTWTMNML2397-42-88 09:55:00 Test Item Value Reference Range Interpretation Comments Magnesium Lvl (test code = Magnesium 1.8 1.8-2.4 N Lvl) [facility] CenterUskagekLFEEWVOXK9816-48-65 00:11:00 Test Item Value Reference Range Interpretation Comments Phosphorus (test code = Phosphorus) 2.9 2.5-4.5 N [facility] CampusMpkiiupTXWYGDCZOC6579-46-46 00:11:00 Test Item Value Reference Range Interpretation Comments Plt Morph (test code = Normal (04/20/2012 N Plt Morph) 18:11:00) [facility] CampusLbgismgQQFROKDNFC1195-80-37 00:11:00 Test Item Value Reference Range Interpretation Comments RBC Morph (test code = Normal (04/20/2012 N RBC Morph) 18:11:00) [facility] CenterFssnzquEUHQTTYWF4001-64-95 00:11:00 Test Item Value Reference Range Interpretation Comments Phosphorus (test code = Phosphorus) 2.9 2.5-4.5 N [facility] CampusBvhpzvrRAEJGRQRZN8752-21-98 00:11:00 Test Item Value Reference Range Interpretation Comments Plt Morph (test code = Normal (04/20/2012 N Plt Morph) 18:11:00) [facility] CampusBnmdgdxOJLVZQAVCS1594-93-87 00:11:00 Test Item Value Reference Range Interpretation Comments RBC Morph (test code = Normal (04/20/2012 N RBC Morph) 18:11:00) [facility] CenterLhafcsrGUXRTEBAH3185-27-12 00:11:00 Test Item Value Reference Range Interpretation Comments Phosphorus (test code = Phosphorus) 2.9 2.5-4.5 N [facility] CampusNugkbfiUQXRDKSBUM4407-14-96 00:11:00 Test Item Value Reference Range Interpretation Comments Plt Morph (test code = Normal (04/20/2012 N Plt Morph) 18:11:00) [facility] CampusLuijixwPHHINWMUPC0367-95-31 00:11:00 Test Item Value Reference Range Interpretation Comments RBC Morph (test code = Normal (04/20/2012 N RBC Morph) 18:11:00) [facility] CenterUzzhrhePAMWCQFWB4868-22-91 00:11:00 Test Item Value Reference Range Interpretation Comments Phosphorus (test code = Phosphorus) 2.9 2.5-4.5 N [facility]QdukxktVRJNIPWCNT0137-16-05 00:11:00 Test Item Value Reference Range Interpretation Comments Plt Morph (test code = Normal (04/20/2012 N Plt Morph) 18:11:00) [facility] PasoJntsxhlXKHXDJXFLQ3755-92-54 00:11:00 Test Item Value Reference Range Interpretation Comments RBC Morph (test code = Normal (04/20/2012 N RBC Morph) 18:11:00) [facility] PasoannBACTERIAL - BBULSSWO1033-35-75 22:00:00 Test Item Value Reference Range Interpretation Comments MRSA by PCR (test Negative 1(04/20/2012 N code = MRSA by PCR) 16:00:00) [facility]BACTERIAL - PJTCGOFG0279-56-50 22:00:00 Test Item Value Reference Range Interpretation Comments MRSA by PCR (test Negative 1(04/20/2012 N code = MRSA by PCR) 16:00:00) [facility]BACT[facility] - CJEYTGSO5597-15-94 22:00:00 Test Item Value Reference Range Interpretation Comments MRSA by PCR (test Negative 1(04/20/2012 N code = MRSA by PCR) 16:00:00) [facility]BACT[facility] - ROSZMRMH1484-64-47 22:00:00 Test Item Value Reference Range Interpretation Comments MRSA by PCR (test Negative 1(04/20/2012 N code = MRSA by PCR) 16:00:00) [facility] PasoMykueueUGCYCAVJO4155-52-69 10:47:00 Test Item Value Reference Range Interpretation Comments LDL (test code = LDL) 136 See_Comment H [Auto mated message] The system which ge nerated this result transmit norris reference range : <=129. The reference range was not used to interpr et this result as darshana l/abnormal. [facility] PasoTpqidstPFCCSFHNC1745-71-80 10:47:00 Test Item Value Reference Range Interpretation Comments Chol (test code = Chol) 211 120-200 H [facility] PasoBxqatzvVRIAJYYQE3420-82-05 10:47:00 Test Item Value Reference Range Interpretation Comments Trig (test code = 193 See_Comment N [Automate d message] The Trig) system which ge nerated this result transmit norris reference range : <=200. The reference range was not used to interpr et this result as darshana l/abnormal. [facility]hnpzgtNCVIGRQAF2795-16-41 10:47:00 Test Item Value Reference Range Interpretation Comments HDL (test code = HDL) 36 N [facility] PasoWgykatnWKWDHACTA4895-58-32 10:47:00 Test Item Value Reference Range Interpretation Comments CHD Risk (test code = CHD Risk) 5.86 3.90-5.80 H [facility] PasoAwookaqLQEDSRSUF5278-17-09 10:47:00 Test Item Value Reference Range Interpretation Comments LDL (test code = LDL) 136 See_Comment H [Auto mated message] The system which ge nerated this result transmit norris reference range : <=129. The reference range was not used to interpr et this result as darshana l/abnormal. [facility] AeftwboDDQEQKUJO4661-14-16 10:47:00 Test Item Value Reference Range Interpretation Comments Chol (test code = Chol) 211 120-200 H [facility] RhfsincZVHBPEKKV0325-67-81 10:47:00 Test Item Value Reference Range Interpretation Comments Trig (test code = 193 See_Comment N [Automate d message] The Trig) system which ge nerated this result transmit norris reference range : <=200. The reference range was not used to interpr et this result as darshana l/abnormal. [facility] LxgrynkHPJOQAAVA2557-20-28 10:47:00 Test Item Value Reference Range Interpretation Comments HDL (test code = HDL) 36 N [facility] PasoCzjprxqLXVSROMJY0103-49-48 10:47:00 Test Item Value Reference Range Interpretation Comments CHD Risk (test code = CHD Risk) 5.86 3.90-5.80 H [facility] PasoLkzesvyEOGBLQVPI5921-15-46 10:47:00 Test Item Value Reference Range Interpretation Comments LDL (test code = LDL) 136 See_Comment H [Auto mated message] The system which ge nerated this result transmit norris reference range : <=129. The reference range was not used to interpr et this result as darshana l/abnormal. [facility] SpolyccDUAGZPQQM5001-78-12 10:47:00 Test Item Value Reference Range Interpretation Comments Chol (test code = Chol) 211 120-200 H [facility] WmxspejTUGYTLDWL8054-58-45 10:47:00 Test Item Value Reference Range Interpretation Comments Trig (test code = 193 See_Comment N [Automate d message] The Trig) system which ge nerated this result transmit norris reference range : <=200. The reference range was not used to interpr et this result as darshana l/abnormal. [facility] PasoTciulcpDSFJMMEAP9343-78-71 10:47:00 Test Item Value Reference Range Interpretation Comments HDL (test code = HDL) 36 N [facility] CenterNbileolRPAUTBLLH9277-96-08 10:47:00 Test Item Value Reference Range Interpretation Comments CHD Risk (test code = CHD Risk) 5.86 3.90-5.80 H [facility] CenterTcuzujdUCOQPBMRO3165-73-41 10:47:00 Test Item Value Reference Range Interpretation Comments LDL (test code = LDL) 136 See_Comment H [Auto mated message] The system which ge nerated this result transmit norris reference range : <=129. The reference range was not used to interpr et this result as darshana l/abnormal. [facility] CenterJuadqtlECJPPTJVZ1930-95-97 10:47:00 Test Item Value Reference Range Interpretation Comments Chol (test code = Chol) 211 120-200 H [facility] CenterFpbjvbqANNAHFPYG5891-51-56 10:47:00 Test Item Value Reference Range Interpretation Comments Trig (test code = 193 See_Comment N [Automate d message] The Trig) system which ge nerated this result transmit norris reference range : <=200. The reference range was not used to interpr et this result as darshana l/abnormal. [facility] CenterBlpzvjiUFSPGNSFQ5893-41-35 10:47:00 Test Item Value Reference Range Interpretation Comments HDL (test code = HDL) 36 N [facility] CenterQwxodrlDOPBANAJF5071-53-77 10:47:00 Test Item Value Reference Range Interpretation Comments CHD Risk (test code = CHD Risk) 5.86 3.90-5.80 H [facility] CenterStlealbSQLKVYHNW6488-53-09 10:45:00 Test Item Value Reference Range Interpretation Comments TSH (test code = TSH) 0.631 0.360-3.740 N [facility] PasoDpyozsrHAAJZALVM0327-34-25 10:45:00 Test Item Value Reference Range Interpretation Comments Phosphorus (test code = Phosphorus) 3.2 2.5-4.5 N [facility] CampusGkzeyxcXANQHXGTNB2820-47-02 10:45:00 Test Item Value Reference Range Interpretation Comments PTT (test code = PTT) 35.0 s 22.9-35.8 N [facility] CampusHmfehziBUTTTSXBIG6769-37-07 10:45:00 Test Item Value Reference Range Interpretation Comments PT (test code = PT) 14.0 s 12.0-14.7 N [facility] CampusTbxthsvDUTVYTVMNW0785-96-78 10:45:00 Test Item Value Reference Range Interpretation Comments INR (test code = INR) 1.06 0.85-1.17 N [facility] CenterMkvftlqJDSSMGVZP1709-20-89 10:45:00 Test Item Value Reference Range Interpretation Comments TSH (test code = TSH) 0.631 0.360-3.740 N [facility] CenterRxwxyznWBRYAHMLH1285-99-39 10:45:00 Test Item Value Reference Range Interpretation Comments Phosphorus (test code = Phosphorus) 3.2 2.5-4.5 N [facility] CampusEdnulsoBYTGYACDXT2206-73-41 10:45:00 Test Item Value Reference Range Interpretation Comments PTT (test code = PTT) 35.0 s 22.9-35.8 N [facility] CampusXquzgkiXBVUGOLDRO0727-90-27 10:45:00 Test Item Value Reference Range Interpretation Comments PT (test code = PT) 14.0 s 12.0-14.7 N [facility] CampusPleavwdPDBKWTMWST3124-19-69 10:45:00 Test Item Value Reference Range Interpretation Comments INR (test code = INR) 1.06 0.85-1.17 N [facility] CenterHwrxacrTNOOQYAMN2011-15-40 10:45:00 Test Item Value Reference Range Interpretation Comments TSH (test code = TSH) 0.631 0.360-3.740 N [facility] CenterFoamaklZJVJJNQDV6141-23-40 10:45:00 Test Item Value Reference Range Interpretation Comments Phosphorus (test code = Phosphorus) 3.2 2.5-4.5 N [facility] CampusWqxweojNGALQFYUQW7418-86-23 10:45:00 Test Item Value Reference Range Interpretation Comments PTT (test code = PTT) 35.0 s 22.9-35.8 N [facility] CampusPcmixgaZXXMXNGOLE0562-80-33 10:45:00 Test Item Value Reference Range Interpretation Comments PT (test code = PT) 14.0 s 12.0-14.7 [facility]2013-03-07 10:45:00 Test Item Value Reference Range Interpretation Comments INR (test code = INR) 1.06 0.85-1.17 N [facility] CenterQpmfzvuBIGBSRIKG4567-11-36 10:45:00 Test Item Value Reference Range Interpretation Comments TSH (test code = TSH) 0.631 0.360-3.740 N [facility] CenterKokomitZBJHVTEFD2302-14-80 10:45:00 Test Item Value Reference Range Interpretation Comments Phosphorus (test code = Phosphorus) 3.2 2.5-4.5 N [facility] CampusAtoucyvMJWIAXZGIG2174-89-64 10:45:00 Test Item Value Reference Range Interpretation Comments PTT (test code = PTT) 35.0 s 22.9-35.8 N [facility] CampusKaxjannTXHTQBGIOC5607-24-03 10:45:00 Test Item Value Reference Range Interpretation Comments PT (test code = PT) 14.0 s 12.0-14.7 N [facility] CampusSkeauolYEOENBZQER2505-40-24 10:45:00 Test Item Value Reference Range Interpretation Comments INR (test code = INR) 1.06 0.85-1.17 N [facility] CenterUjirlmuXTMOLGMWB8709-93-71 03:05:00 Test Item Value Reference Range Interpretation Comments BNP (test code = BNP) 86 N [facility] CenterWwnpapzKQUPFCJQP2619-25-77 03:05:00 Test Item Value Reference Range Interpretation Comments Total CK (test code = Total CK) 130 12-191 N [facility] CenterHxyjyopVTUNGMEQU5287-76-96 03:05:00 Test Item Value Reference Range Interpretation Comments CK MB (test code = CK MB) 0.9 0.5-3.6 N [facility] CenterSwqayluFILHCFYRT1619-24-90 03:05:00 Test Item Value Reference Range Interpretation Comments Troponin-I (test code no gt See_Comment N [Auto mated message] The = Troponin-I) system which g enerated this result transmit norris reference range : <=0.40. The reference r lina was not used to interpr et this result as darshana l/abnormal. [facility] CenterVgzesolHDUTAXPQF2252-97-01 03:05:00 Test Item Value Reference Range Interpretation Comments CK MB Index (test 0.7 See_Comment N [Automate d message] The code = CK MB Index) system w [facility] generated this result transmit norris reference range : <=2.5. The reference range was not used to interpr et this result as darshana l/abnormal. [facility] CampusAmtbmdlIQLXFUUPEY4402-07-18 03:05:00 Test Item Value Reference Range Interpretation Comments INR (test code = INR) 0.95 0.85-1.17 N [facility] CampusSrhdlpsGXLIMQRVCZ5887-47-32 03:05:00 Test Item Value Reference Range Interpretation Comments PTT (test code = PTT) 34.0 s 22.9-35.8 N [facility] CampusZhlcwmjPGWSMAKPEV4074-40-70 03:05:00 Test Item Value Reference Range Interpretation Comments PT (test code = PT) 12.9 s 12.0-14.7 N [facility] CampusZsdnzpqXRTQMWDWYG3020-71-60 03:05:00 Test Item Value Reference Range Interpretation Comments RBC Morph (test code = Normal (04/18/2012 N RBC Morph) 21:05:00) [facility] CampusMejdqbrLQKNZTOBJX6397-61-27 03:05:00 Test Item Value Reference Range Interpretation Comments Plt Morph (test code = Normal (04/18/2012 N Plt Morph) 21:05:00) [facility]KytyopbNTLTWHLHHC8637-01-84 03:05:00 Test Item Value Reference Range Interpretation Comments UA Nitrite (test code Negative (04/18/2012 N = UA Nitrite) 21:05:00) [facility] NorthwestNjgqqonEVSJDNQBLA8218-87-37 03:05:00 Test Item Value Reference Range Interpretation Comments UA Blood (test code = Negative (04/18/2012 N UA Blood) 21:05:00) [facility] NorthwestNrwgdiuIHBZVHTSGT3727-52-66 03:05:00 Test Item Value Reference Range Interpretation Comments UA Bili (test code = Negative *NA*(04/18/2012 UA Bili) 21:05:00) [facility] NorthwestPorgyaoCGCZJBCUUS3931-48-69 03:05:00 Test Item Value Reference Range Interpretation Comments UA Urobilinogen (test code *NA*(04/18/2012 0.1-1.0 = UA Urobilinogen) 21:05:00) [facility] NorthwestIizehzaMREXWKEFPZ4213-72-16 03:05:00 Test Item Value Reference Range Interpretation Comments UA Color (test code = UA Color) Colorless [facility] NorthwestDkxmnhpQYKUUDGKXO8137-67-99 03:05:00 Test Item Value Reference Range Interpretation Comments UA WBC (test code = 3 See_Comment N [Automa norris message] The UA WBC) system which ge nerated this result transmit norris reference range : <=5. The reference range was not used to interpr et this result as darshana l/abnormal. [facility] NorthwestJydnmmuTJWTHZMWGB0994-46-82 03:05:00 Test Item Value Reference Range Interpretation Comments UA Sq Epi (test code Occasional /LPF = UA Sq Epi) *NA*(04/18/2012 21:05:00) [facility] NorthwestUgoyjyxKHCPZQFCMS2211-74-10 03:05:00 Test Item Value Reference Range Interpretation Comments UA Bacteria (test code Occasional /HPF = UA Bacteria) *NA*(04/18/2012 21:05:00) [facility] NorthwestTrbipxfYHUSSIENJV2933-04-83 03:05:00 Test Item Value Reference Range Interpretation Comments UA RBC (test code = no gt See_Comment N [Automa norris message] The UA RBC) system which ge nerated this result transmit norris reference range : <=2. The reference range was not used to interpr et this result as darshana l/abnormal. [facility] NorthwestYhvctlaIWUUUBTLJL9715-05-82 03:05:00 Test Item Value Reference Range Interpretation Comments UA pH (test code = UA pH) 8.0 5.0-8.0 N [facility] NorthwestOezqdepGHIZGTDXAS3443-74-07 03:05:00 Test Item Value Reference Range Interpretation Comments UA Leuk Est (test code Small *ABN*(04/18/2012 A = UA Leuk Est) 21:05:00) [facility] NorthwestLngutkfBVZYQETMIL4967-12-25 03:05:00 Test Item Value Reference Range Interpretation Comments UA Ketones (test code Negative mg/dL = UA Ketones) *NA*(04/18/2012 21:05:00) [facility] NorthwestRxryipdXQCGCUGKXA4666-71-87 03:05:00 Test Item Value Reference Range Interpretation Comments UA Glucose (test code Negative mg/dL = UA Glucose) *NA*(04/18/2012 21:05:00) [facility] NorthwestEparlpoHJNTIJZBNX2083-76-61 03:05:00 Test Item Value Reference Range Interpretation Comments UA Protein (test code Negative mg/dL N = UA Protein) (04/18/2012 21:05:00) [facility] NorthwestVituwdvSJGNJBKXQC1308-69-51 03:05:00 Test Item Value Reference Range Interpretation Comments UA Turbidity (test code = Clear (04/18/2012 N UA Turbidity) 21:05:00) [facility]UxtvtfdVUDFXBZTMT0301-50-83 03:05:00 Test Item Value Reference Range Interpretation Comments UA Spec Grav (test code = UA Spec Grav) 1.003 N [facility] CenterCblcmflLbsmvfioyetf8782-35-34 03:05:00 Test Item Value Reference Range Interpretation Comments Culture: Urine (test code = Culture: Urine) [facility] CenterOyfktmvYMZFCOAIX2804-22-25 03:05:00 Test Item Value Reference Range Interpretation Comments BNP (test code = BNP) 86 N [facility]UkormlfSGZZSEZCQ7728-61-30 03:05:00 Test Item Value Reference Range Interpretation Comments Total CK (test code = Total CK) 130 12-191 N [facility] CenterLqptejkNWTOYCCEX6856-32-76 03:05:00 Test Item Value Reference Range Interpretation Comments CK MB (test code = CK MB) 0.9 0.5-3.6 N [facility] CenterOwunnyhLWQCQTUPN6106-86-74 03:05:00 Test Item Value Reference Range Interpretation Comments Troponin-I (test code no gt See_Comment N [Auto mated message] The = Troponin-I) system which g enerated this result transmit norris reference range : <=0.40. The reference r lina was not used to interpr et this result as darshana l/abnormal. [facility] CenterBabmbjoJUXYPXLWJ1621-76-34 03:05:00 Test Item Value Reference Range Interpretation Comments CK MB Index (test 0.7 See_Comment N [Automate d message] The code = CK MB Index) system w [facility] generated this result transmit norris reference range : <=2.5. The reference range was not used to interpr et this result as darshana l/abnormal. [facility] CenterMmwvnypZPBWKMFBVR3992-35-55 03:05:00 Test Item Value Reference Range Interpretation Comments INR (test code = INR) 0.95 0.85-1.17 N [facility] CampusJbwjxkjHJMRGTGITJ9299-11-13 03:05:00 Test Item Value Reference Range Interpretation Comments PTT (test code = PTT) 34.0 s 22.9-35.8 N [facility] CampusQczzlkaUTYRMVFDAN7850-73-67 03:05:00 Test Item Value Reference Range Interpretation Comments PT (test code = PT) 12.9 s 12.0-14.7 N [facility]VctkuyeUQTUVUSWNY8942-32-23 03:05:00 Test Item Value Reference Range Interpretation Comments RBC Morph (test code = Normal (04/18/2012 N RBC Morph) 21:05:00) [facility] CenterAigccxcZJRGDQDSUZ4780-06-94 03:05:00 Test Item Value Reference Range Interpretation Comments Plt Morph (test code = Normal (04/18/2012 N Plt Morph) 21:05:00) [facility] CenterZndjlhdUVDVMSHHJW5669-34-02 03:05:00 Test Item Value Reference Range Interpretation Comments UA Nitrite (test code Negative (04/18/2012 N = UA Nitrite) 21:05:00) [facility] CenterIddhqiaHSJDRYEPZK9594-50-08 03:05:00 Test Item Value Reference Range Interpretation Comments UA Blood (test code = Negative (04/18/2012 N UA Blood) 21:05:00) [facility]CtcvnpgJIKTRIRQUX3312-92-86 03:05:00 Test Item Value Reference Range Interpretation Comments UA Bili (test code = Negative *NA*(04/18/2012 UA Bili) 21:05:00) [facility]anoAuygmtqNUKOZTLOGA1539-04-32 03:05:00 Test Item Value Reference Range Interpretation Comments UA Urobilinogen (test code *NA*(04/18/2012 0.1-1.0 = UA Urobilinogen) 21:05:00) [facility]anoPlkpkisEXIAQNJNXC5620-78-93 03:05:00 Test Item Value Reference Range Interpretation Comments UA Color (test code = UA Color) Colorless [facility]anoFnhjapjINSZVFBSTL1096-38-84 03:05:00 Test Item Value Reference Range Interpretation Comments UA WBC (test code = 3 See_Comment N [Automa norris message] The UA WBC) system which ge nerated this result transmit norris reference range : <=5. The reference range was not used to interpr et this result as darshana l/abnormal. [facility]anoXjphhnhHPGLYTNRPM2493-54-52 03:05:00 Test Item Value Reference Range Interpretation Comments UA Sq Epi (test code Occasional /LPF = UA Sq Epi) *NA*(04/18/2012 21:05:00) [facility]anoPrckaftCHJORJGDAF9310-69-83 03:05:00 Test Item Value Reference Range Interpretation Comments UA Bacteria (test code Occasional /HPF = UA Bacteria) *NA*(04/18/2012 21:05:00) [facility]anoRhioobsOJRVTFYDKB4122-58-87 03:05:00 Test Item Value Reference Range Interpretation Comments UA RBC (test code = no gt See_Comment N [Automa norris message] The UA RBC) system which ge nerated this result transmit norris reference range : <=2. The reference range was not used to interpr et this result as darshana l/abnormal. [facility]anoUlfmyjyNXULBBLTYD9196-58-66 03:05:00 Test Item Value Reference Range Interpretation Comments UA pH (test code = UA pH) 8.0 5.0-8.0 N [facility] [facility]ZLJ[facility]UEWZ7246[facility]-04 [facility]:05:00 Test Item Value Reference Range Interpretation Comments UA Leuk Est (test code Small *ABN*(04/18/2012 A = UA Leuk Est) 21:05:00) [facility]KktimplGDDKULGECF0597-45-38 03:05:00 Test Item Value Reference Range Interpretation Comments UA Ketones (test code Negative mg/dL = UA Ketones) *NA*(04/18/2012 21:05:00) [facility]QrdvqtvJPKMGCUZCC0219-56-78 03:05:00 Test Item Value Reference Range Interpretation Comments UA Glucose (test code Negative mg/dL = UA Glucose) *NA*(04/18/2012 21:05:00) [facility]XwqozlxOJUUBVIZYN8833-58-67 03:05:00 Test Item Value Reference Range Interpretation Comments UA Protein (test code Negative mg/dL N = UA Protein) (04/18/2012 21:05:00) [facility]NxtvbwfSPLUNFOSKO2193-24-07 03:05:00 Test Item Value Reference Range Interpretation Comments UA Turbidity (test code = Clear (04/18/2012 N UA Turbidity) 21:05:00) [facility]anoWeuzmjaNHNDYCQREV3221-70-22 03:05:00 Test Item Value Reference Range Interpretation Comments UA Spec Grav (test code = UA Spec Grav) 1.003 N [facility] CenterRqvlzesWgkgoqqwpkax0712-36-01 03:05:00 Test Item Value Reference Range Interpretation Comments Culture: Urine (test code = Culture: Urine) [facility] CenterEtzllncJKSPGGYDY2889-42-73 03:05:00 Test Item Value Reference Range Interpretation Comments BNP (test code = BNP) 86 N [facility]mpwpgoMGJZTGSQY7698-04-19 03:05:00 Test Item Value Reference Range Interpretation Comments Total CK (test code = Total CK) 130 12-191 N [facility] CenterLysascnWOUVCCMHX8580-19-08 03:05:00 Test Item Value Reference Range Interpretation Comments CK MB (test code = CK MB) 0.9 0.5-3.6 N [facility] CenterZpequpqQIHEDIAMS3883-15-57 03:05:00 Test Item Value Reference Range Interpretation Comments Troponin-I (test code no gt See_Comment N [Auto mated message] The = Troponin-I) system which g enerated this result transmit norris reference range : <=0.40. The reference r lina was not used to interpr et this result as darshana l/abnormal. [facility] CenterSaeltqrGAGPOJFZD2445-20-89 03:05:00 Test Item Value Reference Range Interpretation Comments CK MB Index (test 0.7 See_Comment N [Automate d message] The code = CK MB Index) system w [facility] generated this result transmit norris reference range : <=2.5. The reference range was not used to interpr et this result as darshana l/abnormal. [facility] CampusNedigflVSODDJKNQI0335-36-94 03:05:00 Test Item Value Reference Range Interpretation Comments INR (test code = INR) 0.95 0.85-1.17 N [facility] CampusQuipftnDJRBNROGVI6762-62-98 03:05:00 Test Item Value Reference Range Interpretation Comments PTT (test code = PTT) 34.0 s 22.9-35.8 N [facility] CampusKeuustjVNUAOUEHML2264-34-15 03:05:00 Test Item Value Reference Range Interpretation Comments PT (test code = PT) 12.9 s 12.0-14.7 N [facility] CampusYbzuexbXGMULGYJIN6961-69-05 03:05:00 Test Item Value Reference Range Interpretation Comments RBC Morph (test code = Normal (04/18/2012 N RBC Morph) 21:05:00) [facility]FccgycdXUWJLQWWCV9487-96-22 03:05:00 Test Item Value Reference Range Interpretation Comments Plt Morph (test code = Normal (04/18/2012 N Plt Morph) 21:05:00) [facility] CenterDopsfktHNMDWNAMIM2481-50-68 03:05:00 Test Item Value Reference Range Interpretation Comments UA Nitrite (test code Negative (04/18/2012 N = UA Nitrite) 21:05:00) [facility]EgmfgcjDVAEOFJKYG1260-59-87 03:05:00 Test Item Value Reference Range Interpretation Comments UA Blood (test code = Negative (04/18/2012 N UA Blood) 21:05:00) [facility] NorthwestJvbbbgjJCQMLFXKKS6917-99-81 03:05:00 Test Item Value Reference Range Interpretation Comments UA Bili (test code = Negative *NA*(04/18/2012 UA Bili) 21:05:00) [facility] NorthwestRtxklsuQGPUZQQPFQ9583-22-35 03:05:00 Test Item Value Reference Range Interpretation Comments UA Urobilinogen (test code *NA*(04/18/2012 0.1-1.0 = UA Urobilinogen) 21:05:00) [facility] NorthwestJblphvsTTBLIUNVNC8088-39-03 03:05:00 Test Item Value Reference Range Interpretation Comments UA Color (test code = UA Color) Colorless [facility] NorthwestMjhqywbSTOBNAITOP9671-56-78 03:05:00 Test Item Value Reference Range Interpretation Comments UA WBC (test code = 3 See_Comment N [Automa norris message] The UA WBC) system which ge nerated this result transmit norris reference range : <=5. The reference range was not used to interpr et this result as darshana l/abnormal. [facility] NorthwestGiiblayJYWWNMOGRY2977-06-22 03:05:00 Test Item Value Reference Range Interpretation Comments UA Sq Epi (test code Occasional /LPF = UA Sq Epi) *NA*(04/18/2012 21:05:00) [facility] NorthwestRlnmrwqSSDLOIAKNU1308-13-29 03:05:00 Test Item Value Reference Range Interpretation Comments UA Bacteria (test code Occasional /HPF = UA Bacteria) *NA*(04/18/2012 21:05:00) [facility] NorthwestNqczaeaIOYIAPHMJQ2137-02-91 03:05:00 Test Item Value Reference Range Interpretation Comments UA RBC (test code = no gt See_Comment N [Automa norris message] The UA RBC) system which ge nerated this result transmit norris reference range : <=2. The reference range was not used to interpr et this result as darshana l/abnormal. [facility]anoRnfujpkRTVQMAXCKR7093-12-27 03:05:00 Test Item Value Reference Range Interpretation Comments UA pH (test code = UA pH) 8.0 5.0-8.0 N [facility] CenterQnohcnhANDYPHCQQF5557-35-78 03:05:00 Test Item Value Reference Range Interpretation Comments UA Leuk Est (test code Small *ABN*(04/18/2012 A = UA Leuk Est) 21:05:00) [facility]HgmcshlPDOKUPRIIK5112-77-13 03:05:00 Test Item Value Reference Range Interpretation Comments UA Ketones (test code Negative mg/dL = UA Ketones) *NA*(04/18/2012 21:05:00) [facility]anoEyamdhyKCDYEKBOXL2364-91-07 03:05:00 Test Item Value Reference Range Interpretation Comments UA Glucose (test code Negative mg/dL = UA Glucose) *NA*(04/18/2012 21:05:00) [facility] NorthwestHyqzyauBOGUGXFSVS9740-16-22 03:05:00 Test Item Value Reference Range Interpretation Comments UA Protein (test code Negative mg/dL N = UA Protein) (04/18/2012 21:05:00) [facility] NorthwestBitrnupXFQPIRBRYS7721-99-58 03:05:00 Test Item Value Reference Range Interpretation Comments UA Turbidity (test code = Clear (04/18/2012 N UA Turbidity) 21:05:00) [facility]anoObgrikfPJPFIMWBFU1147-68-02 03:05:00 Test Item Value Reference Range Interpretation Comments UA Spec Grav (test code = UA Spec Grav) 1.003 N [facility]QecodgbFufzhrjikhmv7072-70-25 03:05:00 Test Item Value Reference Range Interpretation Comments Culture: Urine (test code = Culture: Urine) [facility]WajofccKSGUZLBOV3949-02-74 03:05:00 Test Item Value Reference Range Interpretation Comments BNP (test code = BNP) 86 N [facility] CenterAczqjceSDRNSORRQ6019-56-80 03:05:00 Test Item Value Reference Range Interpretation Comments Total CK (test code = Total CK) 130 12-191 N [facility] CenterUpkafhdAKMUNKCQM4416-36-25 03:05:00 Test Item Value Reference Range Interpretation Comments CK MB (test code = CK MB) 0.9 0.5-3.6 N [facility] CenterEqllvvdAJRCMZCTS7758-30-41 03:05:00 Test Item Value Reference Range Interpretation Comments Troponin-I (test code no gt See_Comment N [Auto mated message] The = Troponin-I) system which g enerated this result transmit norris reference range : <=0.40. The reference r lina was not used to interpr et this result as darshana l/abnormal. [facility] CenterFkgtqwfBACSQWDHD8466-92-44 03:05:00 Test Item Value Reference Range Interpretation Comments CK MB Index (test 0.7 See_Comment N [Automate d message] The code = CK MB Index) system w [facility] generated this result transmit norris reference range : <=2.5. The reference range was not used to interpr et this result as darshana l/abnormal. [facility] CampusVotfpsyHAKVZHCERW8632-75-67 03:05:00 Test Item Value Reference Range Interpretation Comments INR (test code = INR) 0.95 0.85-1.17 N [facility] CampusBufyiepRDGJWMAHUJ5462-92-13 03:05:00 Test Item Value Reference Range Interpretation Comments PTT (test code = PTT) 34.0 s 22.9-35.8 N [facility] CampusSpmvqgnAECIBWSIGF9771-35-29 03:05:00 Test Item Value Reference Range Interpretation Comments PT (test code = PT) 12.9 s 12.0-14.7 N [facility] HospitalAokyabdDQRYICTOYL0941-44-56 03:05:00 Test Item Value Reference Range Interpretation Comments RBC Morph (test code = Normal (04/18/2012 N RBC Morph) 21:05:00) [facility] CampusCsliikgFAPYSZJIDK3219-94-98 03:05:00 Test Item Value Reference Range Interpretation Comments Plt Morph (test code = Normal (04/18/2012 N Plt Morph) 21:05:00) [facility] CenterZphyahbQRUOJJJVXW3220-29-90 03:05:00 Test Item Value Reference Range Interpretation Comments UA Nitrite (test code Negative (04/18/2012 N = UA Nitrite) 21:05:00) [facility] CenterVhjbdwzYBVTHNEQRI1039-86-61 03:05:00 Test Item Value Reference Range Interpretation Comments UA Blood (test code = Negative (04/18/2012 N UA Blood) 21:05:00) [facility] CenterGjelqdkMIZIPGOFOS0224-28-90 03:05:00 Test Item Value Reference Range Interpretation Comments UA Bili (test code = Negative *NA*(04/18/2012 UA Bili) 21:05:00) [facility] CenterOtambvtZJIQGALNIJ8671-70-35 03:05:00 Test Item Value Reference Range Interpretation Comments UA Urobilinogen (test code *NA*(04/18/2012 0.1-1.0 = UA Urobilinogen) 21:05:00) [facility]anoFvxeejmKHCVSKOZVR1515-32-75 03:05:00 Test Item Value Reference Range Interpretation Comments UA Color (test code = UA Color) Colorless [facility]anoKndmigySXYFGRZNZN2881-49-85 03:05:00 Test Item Value Reference Range Interpretation Comments UA WBC (test code = 3 See_Comment N [Automa norris message] The UA WBC) system which ge nerated this result transmit norris reference range : <=5. The reference range was not used to interpr et this result as darshana l/abnormal. [facility] NorthwestFlbsskpLHWNTEHKRD8178-87-02 03:05:00 Test Item Value Reference Range Interpretation Comments UA Sq Epi (test code Occasional /LPF = UA Sq Epi) *NA*(04/18/2012 21:05:00) [facility] NorthwestAwgsuvnZXHSNEJTIM8389-01-36 03:05:00 Test Item Value Reference Range Interpretation Comments UA Bacteria (test code Occasional /HPF = UA Bacteria) *NA*(04/18/2012 21:05:00) [facility] NorthwestOrwxwmwMXENXUDKXW3878-85-36 03:05:00 Test Item Value Reference Range Interpretation Comments UA RBC (test code = no gt See_Comment N [Automa norris message] The UA RBC) system which ge nerated this result transmit norris reference range : <=2. The reference range was not used to interpr et this result as darshana l/abnormal. [facility]anoEqqzaomUPCIDVPULU9937-85-45 03:05:00 Test Item Value Reference Range Interpretation Comments UA pH (test code = UA pH) 8.0 5.0-8.0 N [facility]anoWcoiazyLYGCNLKDGO7421-37-05 03:05:00 Test Item Value Reference Range Interpretation Comments UA Leuk Est (test code Small *ABN*(04/18/2012 A = UA Leuk Est) 21:05:00) [facility] NorthwestFnzznmiOOTFUCLEYI8768-80-48 03:05:00 Test Item Value Reference Range Interpretation Comments UA Ketones (test code Negative mg/dL = UA Ketones) *NA*(04/18/2012 21:05:00) [facility]anoYxibpxgCXGCFLILUB8878-85-13 03:05:00 Test Item Value Reference Range Interpretation Comments UA Glucose (test code Negative mg/dL = UA Glucose) *NA*(04/18/2012 21:05:00) [facility] CenterSacoszwGGAUMQNTSY3133-73-38 03:05:00 Test Item Value Reference Range Interpretation Comments UA Protein (test code Negative mg/dL N = UA Protein) (04/18/2012 21:05:00) [facility]anoJucrlseNUHOMODZJN3211-81-85 03:05:00 Test Item Value Reference Range Interpretation Comments UA Turbidity (test code = Clear (04/18/2012 N UA Turbidity) 21:05:00) [facility]anoXezzjmfVZNHUDKXUG3865-26-74 03:05:00 Test Item Value Reference Range Interpretation Comments UA Spec Grav (test code = UA Spec Grav) 1.003 N [facility] CenterBbhwcojNmleavkhsopa0140-05-29 03:05:00 Test Item Value Reference Range Interpretation Comments Culture: Urine (test code = Culture: Urine) [facility] Pa And Lat (2 Views)Chest Pa And Lat (2 Views)Foot Left 3 ViewFoot Left 3 View
--- NOTE | 2022-06-16 19:20 | RAD REPORT ---
EXAM DESCRIPTION: RAD - Foot Right 3 View - 06/16/2022 6:44 pm CLINICAL HISTORY: PAIN COMPARISON: <Comparisons> FINDINGS: Small moderate plantar calcaneal spur. Mild soft tissue swelling is seen great toe. No fra cture or foreign body. No radiographic finding to indicate osteomyelitis.
[2022-06-16 19:58] LABS: Absolute Lymphocytes (CBC) 1.8 K/uL (0.7-4.9); Hematocrit 33.7 % (36.0-45.0); Lymphocytes % 19.9 % (15.3-44.8); MCV 84.9 fL (80-100); MPV 9.5 fL (7.6-11.3); RBC Red Blood Cell Count 3.97 M/uL (3.86-4.86)
[2022-06-16 20:01] LABS: Protime INR 1.1
[2022-06-16 20:13] LABS: Albumin 3.7 g/dL (3.4-5.0); Bilirubin Total 0.3 mg/dL (0.2-1.0); Potassium 3.7 mEq/L (3.5-5.1); Protein, Total 8.2 g/dL (6.4-8.2)
--- NOTE | 2022-06-16 20:26 | RAD REPORT ---
EXAM DESCRIPTION: US - Extremity Venous Uni Ltd - 06/16/2022 8:14 pm CLINICAL HISTORY: Pain;Swelling Leg swelling and edema. COMPARISON: <Comparisons> FINDINGS: Right lower extremity venous system was interrogated with Doppler technique. Normal flow, compressibility and augmentation was noted. There is no DVT present. IMPRESSION: No evidence of right lower extremity deep venous thrombosis.
--- NOTE | 2022-06-16 20:34 | RAD REPORT ---
EXAM DESCRIPTION: US - Lower Extremity Artery Uni Ltd - 06/16/2022 8:14 pm CLINICAL HISTORY: PAIN COMPARISON: Lower Extremity Artery Uni Ltd dated 09/05/2016 FINDINGS: Right lower extremity arterial system demonstrates diffuse monophasic waveforms. This like ly indicates that there is significant inflow stenotic lesion present. No complete occlusion seen.
--- NOTE | 2022-06-16 21:56 | ER ---
Nurse's Notes [facility] Name: Eva Haskins Age: 81 yrs Sex: Female : 1940 Arrival Date: 06/16/2022 Time: 17:41 Bed 15 Private MD: Diagnosis: Cellulitis of right lower limb;Peripheral vascular disease, unspecified Presentation: 06/16 18:15 Chief complaint: Pt's daughter reports wound to top of right foot that has not improved aa5 taking oral antibiotics (Ceflacor 500mg). 18:15 Coronavirus screen: At this time, the client does not indicate any symptoms associated aa5 with coronavirus-19. Ebola Screen: Patient denies travel to an Ebola-affected area in the 21 days before illness onset. Initial Sepsis Screen: Does the patient meet any 2 criteria? No. Patient's initial sepsis screen is negative. Does the patient have a suspected source of infection? Yes:. Risk Assessment: Do you want to hurt yourself or someone else? Patient reports no desire to harm self or others. Onset of symptoms was June 2022. 18:15 Acuity: DEVON 3 aa5 18:15 Method Of Arrival: Wheelchair aa5 Historical: - Allergies: 18:16 Iodine; aa5 18:16 Levofloxacin; aa5 - PMHx: 18:16 Diabetes - NIDDM; Hyperlipidemia; Hypertension; Myocardial infarction; TIA; aa5 - Immunization history:: Adult Immunizations unknown. - Social history:: Smoking status: Patient denies any tobacco usage or history of. Screenin:36 Abuse screen: Denies threats or abuse. Denies injuries from another. Nutritional ha1 screening: No deficits noted. Tuberculosis screening: No symptoms or risk factors identified. Assessment: 19:30 General: Appears comfortable, Behavior is calm, cooperative. Pain: Complains of pain in ha1 left leg Pain does not radiate. Pain at worst was 7 out of 10 on a pain scale. Alleviated by medications. Neuro: Level of Consciousness is awake, alert, obeys commands, Oriented to person, place, time, situation. Cardiovascular: Heart tones S1 S2 present Capillary refill < 3 seconds Patient's skin is warm and dry. Respiratory: Airway is patent Respiratory effort is even, unlabored, Respiratory pattern is regular, symmetrical. GI: No signs and/or symptoms were reported involving the gastrointestinal system. Derm: Skin is fragile, Skin is pink, warm \T\ dry. Wound noted right foot and left foot. Musculoskeletal: Circulation, motion, and sensation intact. 20:38 Reassessment: Patient and/or family updated on plan of care and expected duration. Pain ha1 level reassessed. Patient is alert, oriented x 3, equal unlabored respirations, skin warm/dry/pink. 21:30 Reassessment: Patient and/or family updated on plan of care and expected duration. Pain ha1 level reassessed. Patient is alert, oriented x 3, equal unlabored respirations, skin warm/dry/pink. 22:22 Reassessment: Patient and/or family updated on plan of care and expected duration. Pain ha1 level reassessed. Patient is alert, oriented x 3, equal unlabored respirations, skin warm/dry/pink. Vital Signs: 18:15 BP 156 / 53; Pulse 81; Resp 16 S; Temp 97.5(TE); Pulse Ox 98% on R/A; Weight 60.33 kg aa5 (R); Height 5 ft. 0 in. (R); 20:00 BP 166 / 48; Pulse 69; Resp 20 S; Pulse Ox 95% on R/A; ha1 20:35 BP 140 / 45; Pulse 61; Resp 19 S; Pulse Ox 95% on R/A; ha1 21:30 BP 138 / 34; Pulse 67; Resp 18 S; Pulse Ox 95% on R/A; ha1 22:00 BP 136 / 39; Pulse 66; Resp 16 S; Pulse Ox 95% on R/A; ha1 18:15 Body Mass Index 25.97 (60.33 kg, 152.4 cm) [facility] ED Course: 17:44 Patient arrived in ED. mr 17:56 Leonides Manning PA is PHCP. cp 17:56 Leonides Juarez MD is Attending Physician. cp 18:16 Arm band placed on. aa 18:17 Triage completed. aa5 18:47 XRAY Foot RIGHT 3 View In Process Unspecified. EDMS 19:01 Uyen Ventura, NAINA is Primary Nurse. ha1 19:30 Patient has correct armband on for positive identification. Placed in gown. Bed in low ha1 position. Call light in reach. Side rails up X 1. Adult w/ patient. 19:40 Missed attempt(s): 22 gauge in left forearm. ha1 19:50 Inserted saline lock: 22 gauge in right forearm, using aseptic technique. Blood ha1 collected. 19:53 Blood Culture Adult (2) Sent. ha1 19:53 CBC with Diff Sent. ha1 19:53 CMP Sent. ha1 19:53 Protime (+inr) Sent. ha1 19:53 Lactate w/ 2H reflex if indic. Sent. ha1 19:53 Ptt, Activated Sent. ha1 20:16 US Extremity Venous Unilateral Ltd In Process Unspecified. EDMS 20:16 Lower Extremity Artery Uni Ltd US In Process Unspecified. EDMS 22:40 No provider procedures requiring assistance completed. IV discontinued, intact, ha1 bleeding controlled, No redness/swelling at site. Pressure dressing applied. Administered Medications: 22:00 Drug: Clindamycin IVPB 600 mg Route: IVPB; Infused Over: 30 mins; Site: right forearm; ha1 22:39 Follow up: Response: No adverse reaction; IV Status: Completed infusion; IV Intake: [id number] Intake: 22:39 IV: 50ml; Total: 50ml. ha1 Outcome: 21:55 Discharge ordered by MD. cp 22:40 Discharged to home via wheelchair, with family. ha1 22:40 Condition: stable 22:40 Discharge instructions given to patient, family, Instructed on discharge instructions, follow up and referral plans. medication usage, Demonstrated understanding of instructions, follow-up care, medications. 22:40 Patient left the ED. ha1 Signatures: Dispatcher [employer] [facility] Juan MiguelToña LeandroAbby, RN RN aa5 Leonides Manning PA PA cp Ayala, Heidy, RN RN ha1 Corrections: (The following items were deleted from the chart) 18:18 18:15 Chief complaint: Pt's daughter reports wound to top of right foot that has not aa5 improved taking oral antibiotics. aa5
--- NOTE | 2022-06-16 21:56 | EDPHYS ---
Physician Documentation [facility] Name: Eva Haskins Age: 81 yrs Sex: Female : 1940 Arrival Date: 06/16/2022 Time: 17:41 Bed 15 Private MD: ED Physician Leonides Juarez HPI: 06/16 18:30 This 81 yrs old Female presents to ER via Wheelchair with complaints of Wound cp Infection. 18:30 The patient presents with infection of right foot. cp 18:30 Associated signs and symptoms: Pertinent negatives calf tenderness, fever, vomiting, cp weakness, injury. Daughter of patient reports patient was sent to ED for evaluation of cellulitis to right foot. Daughter reports patient finished prescribed antibiotic, cefaclor. Historical: - Allergies: 18:16 Iodine; aa5 18:16 Levofloxacin; aa5 - PMHx: 18:16 Diabetes - NIDDM; Hyperlipidemia; Hypertension; Myocardial infarction; TIA; aa5 - Immunization history:: Adult Immunizations unknown. - Social history:: Smoking status: Patient denies any tobacco usage or history of. ROS: 18:35 Constitutional: Negative for body aches, chills, fever, poor PO intake. cp 18:35 MS/extremity: Positive for erythema, swelling, tenderness, of the right foot. cp 18:35 Eyes: Negative for injury, pain, redness, and discharge. cp 18:35 Cardiovascular: Negative for chest pain, palpitations. 18:35 Respiratory: Negative for cough, shortness of breath, wheezing. 18:35 Abdomen/GI: Negative for abdominal pain, nausea, vomiting, and diarrhea. 18:35 Neuro: Negative for altered mental status, dizziness, headache, weakness. cp 18:35 All other systems are negative. Exam: 18:40 Constitutional: The patient appears in no acute distress, alert, awake, comfortable, cp non-toxic, well developed, well nourished. 18:40 Head/Face: Normocephalic, atraumatic. cp 18:40 Eyes: Periorbital structures: appear normal, Conjunctiva: normal, no exudate, no injection, Sclera: no appreciated abnormality, Lids and lashes: appear normal, bilaterally. 18:40 ENT: External ear(s): are unremarkable, Nose: is normal, Mouth: Lips: moist, Oral mucosa: pink and intact, moist, Posterior pharynx: is normal, airway is patent, no erythema, no exudate. 18:40 Neck: ROM/movement: is normal, is supple, without pain, no range of motions limitations. 18:40 Chest/axilla: Inspection: normal. 18:40 Cardiovascular: Rate: normal, Rhythm: regular, Pulses: right dorsalis pedis is weak, Edema: pedal edema, mild right foot, JVD: is not appreciated. 18:40 Respiratory: the patient does not display signs of respiratory distress, Respirations: normal, no use of accessory muscles, no retractions, labored breathing, is not present, Breath sounds: are clear throughout, no decreased breath sounds, no stridor, no wheezing. 18:40 Abdomen/GI: Inspection: abdomen appears normal, Palpation: abdomen is soft and non-tender, in all quadrants. 18:40 Back: pain, is absent, ROM is normal. 18:40 Musculoskeletal/extremity: Extremities: noted in the right foot: erythema, swelling, tenderness, superficial wound noted dorsum right foot with no drainage. Vital Signs: 18:15 BP 156 / 53; Pulse 81; Resp 16 S; Temp 97.5(TE); Pulse Ox 98% on R/A; Weight 60.33 kg aa5 (R); Height 5 ft. 0 in. (R); 20:00 BP 166 / 48; Pulse 69; Resp 20 S; Pulse Ox 95% on R/A; ha1 20:35 BP 140 / 45; Pulse 61; Resp 19 S; Pulse Ox 95% on R/A; ha1 21:30 BP 138 / 34; Pulse 67; Resp 18 S; Pulse Ox 95% on R/A; ha1 22:00 BP 136 / 39; Pulse 66; Resp 16 S; Pulse Ox 95% on R/A; ha1 18:15 Body Mass Index 25.97 (60.33 kg, 152.4 cm) aa5 MDM: 18:12 Patient medically screened. [facility] 21:55 Data reviewed: vital signs, nurses notes, lab test result(s), EKG, radiologic studies, cp plain films, ultrasound. 21:55 Differential diagnosis: cellulitis, abscess, sepsis. Consideration of cp Admission/Observation Escalation of care including admission/observation considered. Care significantly affected by the following chronic conditions: Diabetes, Hypertension. 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 ED course: VSS. Labs, radiology studies, EKG reviewed. Patient appears non-toxic, will discharge with RX for oral antibiotic. 06/16 18:20 Order name: Blood Culture Adult (2) cp 06/16 18:20 Order name: CBC with Diff; Complete Time: 21:03 cp 06/16 21:03 Interpretation: Normal except: HGB 11.0; HCT 33.7; RDW 15.4. cp 06/16 18:20 Order name: CMP; Complete Time: 21:03 cp 06/16 21:03 Interpretation: Normal except: GLUC 178; BUN 40; GFR 57; AST 14; GLOB 4.5; A/G 0.8. cp 06/16 18:20 Order name: Lactate w/ 2H reflex if indic.; Complete Time: 21:03 cp 06/16 18:20 Order name: Protime (+inr); Complete Time: 20:07 cp 06/16 18:20 Order name: Ptt, Activated; Complete Time: 20:07 cp 06/16 20:07 Interpretation: Reviewed. cp 06/16 19:46 Order name: Glucose, Ancillary Testing; Complete Time: 20:07 EDMS 06/16 20:07 Interpretation: Reviewed. cp 06/16 18:20 Order name: XRAY Foot RIGHT 3 View; Complete Time: 19:33 cp 06/16 19:33 Interpretation: Report reviewed. cp 06/16 18:20 Order name: US Extremity Venous Unilateral Ltd; Complete Time: 21:03 cp 06/16 21:04 Interpretation: Report reviewed. cp 06/16 18:20 Order name: Lower Extremity Artery Uni Ltd US; Complete Time: 21:03 cp 06/16 21:05 Interpretation: Report reviewed. cp 06/16 18:20 Order name: EKG; Complete Time: 18:21 cp 06/16 18:20 Order name: Accucheck; Complete Time: 19:53 cp 06/16 18:20 Order name: Cardiac monitoring; Complete Time: 19:53 cp 06/16 18:20 Order name: EKG - Nurse/Tech; Complete Time: 19:53 cp 06/16 18:20 Order name: IV Saline Lock - Large Bore; Complete Time: 19:53 cp 06/16 18:20 Order name: Labs collected and sent; Complete Time: :53 cp 06/16 18:20 Order name: O2 Per Protocol; Complete Time: :53 cp 06/16 18:20 Order name: O2 Sat Monitoring; Complete Time: 19:53 cp 06/16 18:20 Order name: Vital Signs; Complete Time: 20:37 cp Administered Medications: 22:00 Drug: Clindamycin IVPB 600 mg Route: IVPB; Infused Over: 30 mins; Site: right forearm; ha1 22:39 Follow up: Response: No adverse reaction; IV Status: Completed infusion; IV Intake: [id number] Disposition Summary: 06/16/22 21:55 Discharge Ordered Location: Home cp Problem: an ongoing problem cp Symptoms: are unchanged cp Condition: Stable cp Diagnosis - Cellulitis of right lower limb cp - Peripheral vascular disease, unspecified cp Followup: cp - With: Private Physician - When: 2 - 3 days - Reason: Recheck today's complaints Discharge Instructions: - Discharge Summary Sheet cp - Cellulitis, Adult cp - Intermittent Claudication cp - Peripheral Vascular Disease cp Forms: - Medication Reconciliation Form cp - Thank You Letter cp - Antibiotic Education cp - Prescription Opioid Use cp Prescriptions: - Clindamycin HCl 300 mg Oral Capsule - take 1 capsule by ORAL route every 6 hours for 10 days; 40 capsule; Refills: 0, cp Product Selection Permitted Signatures: Dispatcher [employer] Leonides Dixon MD MD cha Calderon, Audri RN RN aa5 Leonides Manning PA PA cp Uyen Ventura, RN RN ha1
[2022-06-16] MEDS ORDERED: CLINDAMYCIN 600MG/D5W 50 ML IV ONE (22:05)
[2022-06-16 22:52] VITALS: TEMP 97.5
[2022-06-16 22:58] VITALS: O2SAT 95
[2022-06-16 23:05] VITALS: BP 136/39
--- NOTE | 2022-06-17 05:49 | EKG ---
Test Date: 2022-06-16 Test Time: 19:17:52 Electronic Prepress System Operator: ESTHER MEASUREMENT RESULTS: Intervals: Rate: 60 MT: 136 QRSD: 90 QT: 424 QTc: 424 [place]: P: 75 MT: 136 QRS: -14 T: 63 INTERPRETIVE STATEMENTS: Normal sinus rhythm ST & T wave abnormality, consider lateral ischemia Abnormal ECG Compared to ECG 03/25/2022 16:52:35 Sinus bradycardia no longer present Fusion complex(es) no longer present ST (T wave) deviation still present Possible ischemia still present Electronically Signed On 06-17-22 05:48:34 CDT by Mert Eason
== END 2022-06-16 22:40 | disposition home or self-care (01) ==
LOC: ER 17:41
DX: I73.9 Peripheral vascular disease, unspecified (principal); I10 Essential (primary) hypertension; E11.9 Type 2 diabetes mellitus without complications; Z88.1 Allergy status to other antibiotic agents; Z91.048 Other nonmedicinal substance allergy status
CPT/HCPCS: 36415; 80053; 82947; 83605; 85025; 85610; 85730; 87040; 93005; 93926; 93971; 96365; 99284

== ENCOUNTER 2023-03-30 19:57 | Inpatient (IN) | payer OTHER ==
--- NOTE | 2023-03-30 20:33 | RAD REPORT ---
EXAM DESCRIPTION: RAD - Chest Single View - 03/30/2023 8:23 pm CLINICAL HISTORY: COUGH Chest pain. COMPARISON: <Comparisons> FINDINGS: Portable technique limits examination quality. The lungs are grossly clear. The heart is normal in size. No displaced fractures.Sternotomy wires not ed IMPRESSION: No acute intrathoracic process suspected.
--- NOTE | 2023-03-30 20:46 | RAD REPORT ---
EXAM DESCRIPTION: CT - Head Brain Wo Cont - 03/30/2023 8:39 pm CLINICAL HISTORY: ams Headache, drowsiness COMPARISON: Head Brain Wo Cont dated 03/25/2022; Head Brain Wo Cont dated 12/06/2015; Brain Wo Cont d ated 04/13/2022 TECHNIQUE: All CT scans are performed using dose optimization technique as appropriate and may inclu de automated exposure control or mA/KV adjustment according to patient size. FINDINGS: No intracranial hemorrhage, hydrocephalus or extra-axial fluid collection.Increased densit y and enlargement of the right putamen relative to the left. Mild generalized brain atrophy. Mild chucky tebral atherosclerosis. The paranasal sinuses and mastoids are clear. The calvarium is intact. IMPRESSION: Increased size and density of the right putamen/ basal ganglia noted. This could be due to ischemia. MRI of the brain recommended for follow-up imaging.
[2023-03-30 21:35] LABS: Hematocrit 37.6 % (36.0-45.0); Lymphocytes % 8.6 % (15.3-44.8); MCV 80.5 fL (80-100); MPV 8.9 fL (7.6-11.3); Platelets 184 thou/uL (152-406); RBC Red Blood Cell Count 4.67 M/uL (3.86-4.86)
[2023-03-30] MEDS ORDERED: LABETALOL 20 MG/4ML SYRINGE IV ONE (21:50)
[2023-03-30] MEDS ORDERED: DIPHENHYDRAMINE 50 MG/ML VIAL ONE (21:50)
[2023-03-30] MEDS ORDERED: METHYLPREDNISOLONE 125 MG INJ ONE (21:50)
[2023-03-30] MEDS ORDERED: FAMOTIDINE 20 MG/2 ML VIAL IV ONE (21:50)
[2023-03-30 21:56] LABS: Albumin 3.8 g/dL (3.4-5.0); Bilirubin Direct 0.2 mg/dL (0-0.2); Bilirubin Indirect, Calculated 0.5 mg/dL (0.2-0.8); Bilirubin Total 0.7 mg/dL (0.2-1.0); Magnesium 1.8 mg/dL (1.6-2.4); Potassium 3.8 mEq/L (3.5-5.1); Protein, Total 8.6 g/dL (6.4-8.2); Troponin High Sensitivity 22.7 pg/mL (<58.9)
[2023-03-30] MEDS ORDERED: ONDANSETRON 4 MG/2 ML VIAL ONE (23:25)
--- NOTE | 2023-03-31 00:03 | ER ---
Nurse's Notes 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 Daughter stated patient was diagnosed with UTI and was started on Cephalexin 500mg 2 days ago. Patient denies any pain and is A\T\Ox4 at this time. 19:58 Coronavirus screen: Client denies travel out of the [place] in the last 14 days. Client pf1 presents with at least one sign or symptom that may indicate coronavirus-19. Ebola Screen: Patient negative for fever greater than or equal to 101.5 degrees Fahrenheit, and additional compatible Ebola Virus Disease symptoms. Initial Sepsis Screen: Does the patient meet any 2 criteria? No. Patient's initial sepsis screen is negative. Does the patient have a suspected source of infection? No. Patient's initial sepsis screen is negative. Risk Assessment: Do you want to hurt yourself or someone else? Patient reports no desire to harm self or others. 19:58 Method Of Arrival: EMS: [facility] pf1 19:58 Acuity: DEVON 3 pf1 Historical: - Allergies: 20:43 Iodine; pf1 20:43 Levofloxacin; pf1 - PMHx: 20:43 Diabetes - NIDDM; Hyperlipidemia; Hypertension; Myocardial infarction; TIA; Depressive pf1 disorder; - PSHx: 20:51 triple bypass; bilateral carotid; cardiac stent x 2; pf1 - Immunization history:: Adult Immunizations up to date, 3 doses of pfizer Last tetanus immunization: > 10 years ago Flu vaccine is up to date. - Social history:: Smoking status: Patient denies any tobacco usage or history of. Patient/guardian denies using alcohol, street drugs. - Family history:: not pertinent. Screenin:50 [facility] ED Fall Risk Assessment (Adult) History of falling in the last 3 months, tm6 including since admission No falls in past 3 months (0 pts). Abuse screen: Denies threats or abuse. Denies injuries from another. Nutritional screening: No deficits noted. Tuberculosis screening: No symptoms or risk factors identified. Assessment: 20:50 General: Appears in no apparent distress. Behavior is cooperative. Pain: Denies pain. tm6 Neuro: Level of Consciousness is awake, alert, obeys commands, Oriented to person, intermittent confusion. Cardiovascular: Capillary refill < 3 seconds Patient's skin is warm and dry. Respiratory: Airway is patent Respiratory effort is even, unlabored, Respiratory pattern is regular, symmetrical, Breath sounds with wheezes bilaterally. GI: Abdomen is flat, non-distended. : No signs and/or symptoms were reported regarding the genitourinary system. EENT: No signs and/or symptoms were reported regarding the EENT system. Derm: No signs and/or symptoms reported regarding the dermatologic system. Musculoskeletal: Parent/caregiver report the patient having generalized weakness. Vital Signs: 19:58 BP 162 / 127; Pulse 77; Resp 18; Temp 98.6; Pulse Ox 95% on R/A; Weight 59.42 kg; pf1 Height 5 ft. 0 in. ; Pain 0/10; 22:19 BP 119 / 95; Pulse 78; Resp 24; Pulse Ox 97% on R/A; tm6 23:23 BP 124 / 76; Pulse 84; Resp 21; Pulse Ox 97% ; tm6 02/16 00:00 BP 127 / 59; Pulse 77; Resp 14; Pulse Ox 97% ; vc1 01:00 BP 147 / 53; Pulse 66; Resp 20; Pulse Ox 100% ; vc1 01:45 BP 145 / 54; Pulse 60; Resp 20; Pulse Ox 99% ; vc1 03/30 19:58 Body Mass Index 25.58 (59.42 kg, 152.4 cm) pf1 03/30 19:58 Pain Scale: Adult pf1 ED Course: 03/30 19:58 Patient arrived in ED. ty 19:59 Tu Puri MD is Attending Physician. rt 20:25 XRAY Chest (1 view) In Process Unspecified. EDMS 20:40 CT Head Brain wo Cont In Process Unspecified. EDMS 20:43 Triage completed. pf1 20:50 No provider procedures requiring assistance completed. tm6 20:50 Patient has correct armband on for positive identification. Call light in reach. Side tm6 rails up X2. Provided Education on: plan of care. Client placed on continuous cardiac and pulse oximetry monitoring. NIBP monitoring applied. cardiac monitor technician on. Door closed. Noise minimized. Lights dimmed. Warm blanket given. 21:29 Inserted saline lock: 22 gauge in right forearm, using aseptic technique. Blood as6 collected. 23:00 CT Head Angio In Process Unspecified. EDMS 23:00 CT Neck Angio In Process Unspecified. EDMS 03/31 00:01 Mychal Roberts MD is Hospitalizing Provider. rt 06:33 Patient admitted, IV remains in place. pf1 Administered Medications: 03/30 22:18 Drug: MethylPrednisoLONE IVP 125 mg IVP once Route: IVP; Site: right forearm; tm6 22:18 Drug: diphenhydrAMINE IVP 50 mg IVP once Route: IVP; Site: right forearm; tm6 22:18 Drug: Famotidine IVP 20 mg IVP once; dilute with 10 mL 0.9% NaCl; give over 2 minutes tm6 Route: IVP; Site: right forearm; 22:19 Drug: Labetalol IV 10 mg IV at calculated rate once Route: IV; Rate: calculated rate; tm6 Site: right forearm; 23:33 Drug: Ondansetron IVP 4 mg IVP once; over 2 minutes Route: IVP; Site: right forearm; tm6 Medication: 20:50 VIS not applicable for this client. tm6 Outcome: 03/31 00:02 Decision to Hospitalize by Provider. rt 06:32 Admitted to Med/surg accompanied by tech, via stretcher, room 201, with oxygen, with pf1 chart, Report called to receiving nurse 06:32 Condition: stable 06:32 Instructed on the need for admit, Demonstrated understanding of instructions, 06:34 Patient left the ED. pf1 Signatures: Dispatcher [employer] EDNH Maurizio Amado RN RN as6 Roya Garcia RN RN vc1 Tu Puri MD MD rt Ava Correia RN RN pf1 Jodee Fischer RN RN tm6 Fei Hernandez Corrections: (The following items were deleted from the chart) 03/30 20:53 19:58 Chief complaint: Patient states: [facility] stated daughter C/O generalized pf1 weakness for 2 days, has not been feeling good with intermittent confusion for 3 weeks, cough that started today. Daughter stated patient was diagnosed with UTI and was started on Cephalexin 500mg 2 days ago. Patient denies any pain and is A\T\Ox4 at this time. pf1
--- NOTE | 2023-03-31 00:03 | EDPHYS ---
Physician Documentation [facility] Name: Eva Haskins Age: 82 yrs Sex: Female : 1940 Arrival Date: 03/30/2023 Time: 19:57 Bed 16 Private MD: ED Physician Tu Puri HPI: 03/30 21:57 This 82 yrs old Female presents to ER via EMS with complaints of General rt Weakness. 21:57 Patient presents to the ED with generalized weakness, confusion starting today. Patient rt is currently receiving antibiotics for a UTI. The patient reportedly has been too weak to walk. Denies other acute complaints at this time, symptoms are moderate in severity, no other aggravating or alleviating factors.. Historical: - Allergies: 20:43 Iodine; pf1 20:43 Levofloxacin; pf1 - PMHx: 20:43 Diabetes - NIDDM; Hyperlipidemia; Hypertension; Myocardial infarction; TIA; Depressive pf1 disorder; - PSHx: 20:51 triple bypass; bilateral carotid; cardiac stent x 2; pf1 - Immunization history:: Adult Immunizations up to date, 3 doses of pfizer Last tetanus immunization: > 10 years ago Flu vaccine is up to date. - Social history:: Smoking status: Patient denies any tobacco usage or history of. Patient/guardian denies using alcohol, street drugs. - Family history:: not pertinent. ROS: 21:57 Constitutional: Negative for fever, chills, and weight loss, Cardiovascular: Negative rt for chest pain, palpitations, and edema, Respiratory: Negative for shortness of breath, cough, wheezing, and pleuritic chest pain, Abdomen/GI: Negative for abdominal pain, nausea, vomiting, diarrhea, and constipation, MS/Extremity: Negative for injury and deformity, Skin: Negative for injury, rash, and discoloration, 21:57 Skin: Positive for Confusion, weakness, Exam: 21:57 Constitutional: This is a well developed, well nourished patient who is awake, alert, rt and in no acute distress. Head/Face: Normocephalic, atraumatic. Chest/axilla: Normal chest wall appearance and motion. Nontender with no deformity. No lesions are appreciated. Cardiovascular: Regular rate and rhythm with a normal S1 and S2. No gallops, murmurs, or rubs. Normal PMI, no JVD. No pulse deficits. Respiratory: Lungs have equal breath sounds bilaterally, clear to auscultation and percussion. No rales, rhonchi or wheezes noted. No increased work of breathing, no retractions or nasal flaring. Abdomen/GI: Soft, non-tender, with normal bowel sounds. No distension or tympany. No guarding or rebound. No evidence of tenderness throughout. Skin: Warm, dry with normal turgor. Normal color with no rashes, no lesions, and no evidence of cellulitis. MS/ Extremity: Pulses equal, no cyanosis. Neurovascular intact. Full, normal range of motion. Neuro: Awake and alert, GCS 15, oriented to person, place, time, and situation. Cranial nerves II-XII grossly intact. Motor strength 5/5 in all extremities. Sensory grossly intact. Cerebellar exam normal. Normal gait. 21:57 ECG was reviewed by the Attending Physician. Vital Signs: 19:58 BP 162 / 127; Pulse 77; Resp 18; Temp 98.6; Pulse Ox 95% on R/A; Weight 59.42 kg; pf1 Height 5 ft. 0 in. ; Pain 0/10; 22:19 BP 119 / 95; Pulse 78; Resp 24; Pulse Ox 97% on R/A; tm6 23:23 BP 124 / 76; Pulse 84; Resp 21; Pulse Ox 97% ; tm6 02/16 00:00 BP 127 / 59; Pulse 77; Resp 14; Pulse Ox 97% ; vc1 01:00 BP 147 / 53; Pulse 66; Resp 20; Pulse Ox 100% ; vc1 01:45 BP 145 / 54; Pulse 60; Resp 20; Pulse Ox 99% ; vc1 03/30 19:58 Body Mass Index 25.58 (59.42 kg, 152.4 cm) pf1 03/30 19:58 Pain Scale: Adult pf1 MDM: 03/30 19:59 Patient medically screened. rt 03/30 20:06 Order name: Basic Metabolic Panel; Complete Time: 22:08 rt 03/30 20:06 Order name: CBC with Diff; Complete Time: 22:08 rt 03/30 20:06 Order name: LFT's; Complete Time: 22:08 rt 03/30 20:06 Order name: Magnesium; Complete Time: 22:08 rt 03/30 20:06 Order name: NT PRO-BNP; Complete Time: 22:08 rt 03/30 20:06 Order name: Troponin HS; Complete Time: 22:08 rt 03/30 20:06 Order name: UAM rt 03/31 02:07 Order name: Basic Metabolic Panel EDMS 03/31 02:07 Order name: Basic Metabolic Panel EDMS 03/31 02:07 Order name: Basic Metabolic Panel EDMS 03/31 02:07 Order name: Basic Metabolic Panel EDMS 03/31 02:07 Order name: CBC with Automated Diff EDMS 03/31 02:07 Order name: CBC with Automated Diff EDMS 03/31 02:07 Order name: CBC with Automated Diff EDMS 03/31 02:07 Order name: CBC with Automated Diff EDMS 03/31 02:07 Order name: Magnesium EDMS 03/31 02:07 Order name: Magnesium EDMS 03/31 02:12 Order name: Anti-Thrombin III Activity EDMS 03/31 02:12 Order name: C-ANCA Anti-Proteinase 3 EDMS 03/31 02:12 Order name: Cardiolipin Antibodies G,M EDMS 03/31 02:12 Order name: Factor V Leiden Mutation EDMS 03/31 02:12 Order name: Homocysteine EDMS 03/31 02:12 Order name: Miscellaneous Test Lab EDMS 03/31 02:12 Order name: P-ANCA Anti-Myeloperoxidase Ab EDMS 03/31 02:12 Order name: Protein C Antigen EDMS 03/31 02:12 Order name: Protein Electo w/M Richard Serum EDMS 03/31 02:12 Order name: Protein S (Total EDMS 03/31 02:12 Order name: PROTHROMBIN GENE ANALYSIS (F2) EDMS 03/31 02:12 Order name: RPR EDMS 03/31 02:12 Order name: Vitamin B12 Level EDMS 03/31 02:12 Order name: Vitamin D, 25 (OH), TOTAL EDMS 03/30 20:06 Order name: XRAY Chest (1 view); Complete Time: 20:50 rt 03/30 20:06 Order name: CT Head Brain wo Cont; Complete Time: 20:50 rt 03/30 21:03 Order name: CT Head Angio rt 03/30 21:03 Order name: CT Neck Angio rt 03/31 02:12 Order name: Echo with Doppler EDMS 03/31 02:12 Order name: Chest Pa And Lat (2 Views) EDIN 03/30 20:06 Order name: EKG; Complete Time: 20:07 rt 03/31 02:07 Order name: CONS Physician Consult EDIN 03/31 02:12 Order name: IRF Screen EDIN 03/31 02:12 Order name: Physical Therapy Consult EDIN 03/31 02:12 Order name: Speech Therapy Consult [facility] 03/31 02:12 Order name: EKG Electrocardiogram EDIN 03/30 20:06 Order name: Cardiac monitoring; Complete Time: 21:47 rt 03/30 20:06 Order name: EKG - Nurse/Tech; Complete Time: 21:47 rt 03/30 20:06 Order name: IV Saline Lock; Complete Time: 21:30 rt 03/30 20:06 Order name: Labs collected and sent; Complete Time: 21:30 rt 03/30 20:06 Order name: O2 Per Protocol; Complete Time: 21:47 rt 03/30 20:06 Order name: O2 Sat Monitoring; Complete Time: 21:47 rt EC:57 Rate is 78 beats/min. Rhythm is regular, Normal Sinus Rhythm with No ectopy. Left axis rt deviation noted. WV interval is normal. QRS interval is normal. QT interval is normal. No Q waves. Clinical impression: NSR w/ Non-specific ST/T Changes. Administered Medications: 22:18 Drug: MethylPrednisoLONE IVP 125 mg IVP once Route: IVP; Site: right forearm; tm6 22:18 Drug: diphenhydrAMINE IVP 50 mg IVP once Route: IVP; Site: right forearm; tm6 22:18 Drug: Famotidine IVP 20 mg IVP once; dilute with 10 mL 0.9% NaCl; give over 2 minutes tm6 Route: IVP; Site: right forearm; 22:19 Drug: Labetalol IV 10 mg IV at calculated rate once Route: IV; Rate: calculated rate; tm6 Site: right forearm; 23:33 Drug: Ondansetron IVP 4 mg IVP once; over 2 minutes Route: IVP; Site: right forearm; tm6 Disposition Summary: 03/31/23 00:02 Hospitalization Ordered Notes: Hospitalization Status: Observation rt Provider: Mychal Roberts rt Condition: Fair rt Problem: new rt Symptoms: are unchanged rt Bed/Room Type: Standard rt Location: Telemetry/MedSurg (observation)(03/31/23 03:49) cg Room Assignment: [facility](03/31/23 03:49) cg Diagnosis - Altered mental status, 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
[2023-03-31] MEDS ORDERED: ONDANSETRON 4 MG/2 ML VIAL IV PRN (01:57)
[2023-03-31] MEDS: NA CHLORIDE 0.9% 1,000 ML IV SCH (02:00)
--- NOTE | 2023-03-31 02:11 | P.HP ---
Certification for Inpatient Patient admitted to: Inpatient With expected LOS: >2 Midnights Practitioner: I am a practitioner with admitting privileges, knowledge of patient current condition, hospital course, and medical plan of care. Services: Services provided to patient in accordance with Admission requirements found in Title 42 Section 412.3 of the Code of Federal Regulations Patient History Date of Service: 03/31/23 Reason for admission: CVA. History of Present Illness: 82-year-old female patient was medical history significant for diabetes type 2, hypertension, hyperlipidemia, who came to the ED with complaint of weakness. Family had brought patient in because patient became very weak and has had multiple fall episode. There was concern for stroke so she had a CT of the head and neck done that showed significant abnormality of infarct that was concerning for acute/subacute stroke. She was on Plavix and aspirin for episode of stroke that she had in 2014. She was started on stroke protocol and was admitted for inpatient care. No episode of blurry vision, focal weakness reported. No issues with nausea, vomiting, diarrhea. No low blood sugar episode reported. Allergies levofloxacin [From Levaquin] Allergy (Verified 10/27/14 15:08) Nausea/Vomiting IODINE; IODINE CONTAINING Allergy (Uncoded 05/15/14 22:46) Unknown Home Medications: Atorvastatin Calcium [Lipitor*] 20 mg PO DAILY 07/03/18 Benzonatate [Tessalon Perle*] 100 mg PO BIDP PRN 07/03/18 Brimonidine [Alphagan P 0.15%*] 1 drop EACH EYE BID 07/03/18 Cetirizine HCl 10 mg PO DAILY 07/03/18 Citalopram [Celexa*] 10 mg PO DAILY 07/03/18 Ketoconazole 1 chris TOP PRN 07/03/18 Latanoprost/Pf [Latanoprost 0.005% Eye Drop] 1 drop EACH EYE BEDTIME 07/03/18 Losartan/Hydrochlorothiazide [Hyzaar 100-25 Tablet] 1 tab PO DAILY 07/03/18 Metoprolol Tartrate [Lopressor*] 50 mg PO BID 07/03/18 Timolol 0.5% Opth [Timoptic 0.5% Opth*] 1 drop EACH EYE BID 07/03/18 glipiZIDE [Glucotrol*] 5 mg PO BIDWM 07/03/18 Clopidogrel Bisulfate [Plavix*] 75 mg PO DAILY 03/13/22 Furosemide [Lasix*] 40 mg PO BIDL tab 03/13/22 Pentoxifylline 400 mg PO TID #90 tab 03/13/22 - Past Medical/Surgical History Diabetic: Yes -: Diabetes - NIDDM -: Hyperlipidemia -: Hypertension -: CAD S/P CABG -: TIA -: asthma -: bronchitis -: Glaucoma -: PVD -: Triple Bypass -: Heart stents -: Leg Stents Psychosocial/ Personal History: Patient is retired, lives with family - Family History Mother -: Heart disease Father -: Liver disease Brother -: Diabetes, Liver disease - Social History Alcohol use: No CD- Drugs: No Caffeine use: No Review of Systems General: Weakness, Malaise Eyes: Unremarkable ENT: Unremarkable Respiratory: Unremarkable Cardiovascular: Unremarkable Gastrointestinal: Unremarkable Genitourinary: Unremarkable Musculoskeletal: Unremarkable Integumentary: Unremarkable Neurological: Unremarkable Lymphatics: Unremarkable Physical Examination - Physical Exam General: Alert, Mild distress HEENT: Atraumatic Neck: Supple Respiratory: Normal air movement Cardiovascular: Regular rate/rhythm, Normal S1 S2 Gastrointestinal: Soft and benign Musculoskeletal: No swelling Neurological: Normal speech, Normal strength at 5/5 x4 extr - Studies Laboratory Data (last 24 hrs) 03/30/23 03/30/23 21:28 21:28 WBC 11.80 H Hgb 12.3 Hct 37.6 Plt Count 184 Sodium 137 Potassium 3.8 BUN 22 H Creatinine 0.80 Glucose 160 H Magnesium 1.8 Total Bilirubin 0.7 AST 12 L ALT 19 Alkaline Phosphatase 89 Assessment and Plan - Plan Acute stroke: Patient had imaging very concerning. Will obtain MRI to confirm. Continue aspirin therapy with Plavix. Obtain echocardiogram to assess. Will consult neurology for management recommendation. She will be on stroke protocol and will be kept n.p.o. pending further review. Hypertension: We will monitor vital signs per unit protocol and allow permissive hypertension for 48 to 72 hours. Hyperlipidemia: Continue statin therapy. Diabetes type 2: We will monitor blood sugar ACHS and continue carb restricted diet. Prophylaxis: Lovenox for DVT prophylaxis CODE STATUS: Full code pending further review. Disposition: We will treat her multiple medical issues and she will be discharged when deemed clinically stable. - Advance Directives Does patient have a Living Will: No Does patient have a Durable POA for Healthcare: No
[2023-03-31] MEDS ORDERED: NA CHLORIDE 0.9% 1,000 ML ONE (02:15)
[2023-03-31 03:36] VITALS: BMI 1670.9
[2023-03-31] MEDS: ENOXAPARIN 40 MG/0.4 ML SQ SCH (08:48)
[2023-03-31] MEDS: ASPIRIN EC 81 MG TAB PO SCH (08:48)
--- NOTE | 2023-03-31 10:58 | P.PN ---
Subjective Date of Service: 03/31/23 Chief Complaint: CVA. Pt is resting comfortably in bed. She denies any focal deficit. CT head is concerning for acute CVA. Waitingf or MRI brain and Echo. Consulted Neurology. no other issues overnight. Review of Systems Unremarkable General: Unremarkable Eyes: Unremarkable ENT: Unremarkable Respiratory: Unremarkable Cardiovascular: Unremarkable Gastrointestinal: Unremarkable Genitourinary: Unremarkable Musculoskeletal: Unremarkable Integumentary: Unremarkable Neurological: Unremarkable Lymphatics: Unremarkable Physical Examination - Vital Signs Temperature: 97.7 F Blood Pressure: 181/91 Pulse: 63 Respirations: 20 Pulse Ox (%): 99 - Physical Exam General: Alert, In no apparent distress, Oriented x3 HEENT: Atraumatic, Normocephalic, PERRLA Neck: Supple, 2+ carotid pulse no bruit Respiratory: Clear to auscultation bilaterally, Normal air movement Cardiovascular: No edema, Normal pulses, Regular rate/rhythm, Normal S1 S2 Capillary refill: <2 Seconds Gastrointestinal: Normal bowel sounds, Soft and benign, Non-distended Musculoskeletal: No clubbing, No swelling Integumentary: No rashes, No breakdown Neurological: Normal speech, Normal strength at 5/5 x4 extr, Normal tone, Sensation intact, Cranial nerves 3-12 intact Lymphatics: No axilla or inguinal lymphadenopathy - Studies Laboratory Data (last 24 hrs) 03/30/23 03/30/23 21:28 21:28 WBC 11.80 H Hgb 12.3 Hct 37.6 Plt Count 184 Sodium 137 Potassium 3.8 BUN 22 H Creatinine 0.80 Glucose 160 H Magnesium 1.8 Total Bilirubin 0.7 AST 12 L ALT 19 Alkaline Phosphatase 89 Assessment And Plan - Plan Acute stroke: CT head is concerning for acute/ subacute CVA. Will follow up MRI brain, CTA head & neck, and Echo. Will continue aspirin, plavix and atorvastatin. Waiting for Neurology eval. Will pass swallow eval before oral intake. Will check lipid panel. Consulted PT Hypertension: Will allow permissive htn until we r/o CVA. Hyperlipidemia: Continue statin therapy. Diabetes type 2: Will continue accuchek, SSI and ADA diet. Elevated BNP: BNP is 4094. Will f/u Echo. DVT Prophylaxis: Lovenox Code: full Disposition: Pending hospital course.
--- NOTE | 2023-03-31 16:25 | RAD REPORT ---
EXAM DESCRIPTION: MRI - Brain Wo Cont - 03/31/2023 3:57 pm CLINICAL HISTORY: eval of cva COMPARISON: Brain MRI 09/13/2022. Head CT 03/30/2023 TECHNIQUE: Multiplanar multisequence MRI of the brain performed without IV contrast. FINDINGS: No evidence of acute infarct. Mildly elevated diffusion signal in the region of the right lentiform nucleus with no corresponding ADC decreased signal. Expansile appearance of the right lentiform nucleus with mildly increased T2 and FLAIR signal. Mild t hickening and increased T2 FLAIR signal of the right insular ribbon as well. This likely also extends to the right amygdala. No corresponding susceptibility signal abnormality. Questionable patchy mild T1 hyperintensity in the lentiform nucleus region. No evidence of acute intracranial hemorrhage or abnormal extra-axial fluid collections. Mild diffuse parenchymal volume loss. Ventricular caliber overall stable apart from minimal mass effe ct on the right. Midline structures are unremarkable. Scattered subcortical and deep white matter T2/FLAIR hyperintensities, are nonspecific and stable in appearance, most suggestive of chronic small vessel ischemic changes. No significant mass effect or midline shift. Major vascular flow voids are preserved. Mucous retention cyst in the left sphenoid sinus. Mastoid air cells are clear. IMPRESSION: Expansile appearance of the right lentiform nucleus and overlying insular ribbon, with s ignal abnormalities also likely extending to the amygdala. Findings raise concern for low grade prima ry [employer] neoplasm or lymphoma, although absence of clear diffusion signal abnormalities counts against evidence for lipoma. Correlation with postcontrast MRI images would be helpful. Non-ketotic hyperglyc emic xiao-chorea is also considered less likely given absence of T1 hyperintense signal, however plea se correlate with blood chemistry and for symptoms of chorea.
[2023-03-31] MEDS ORDERED: D10W 250 ML BAG IV PRN (17:05)
[2023-03-31] MEDS ORDERED: GLUCAGON 1 MG/VIAL IM PRN (17:05)
[2023-03-31] MEDS: ATORVASTATIN 40 MG TAB PO SCH (20:15)
--- NOTE | 2023-03-31 20:21 | RAD REPORT ---
EXAM DESCRIPTION: CT - Head angio - 03/31/2023 6:47 am CLINICAL HISTORY: 82 years, Female, cva COMPARISON: None TECHNIQUE: Multiple transaxial tomograms from the aortic arch through the brain were performed after administration of large bolus of IV contrast for complete opacification of the carotid arteries and intracranial vessels. Subsequent 2-D and 3-D multiplanar reformats, volume rendering technique and maximum intensity projec tion images were generated and reviewed An individualized dose optimization technique, Automated Exposure Control, was utilized for the perfo rmed procedure. CAROTID STENOSIS REFERENCE USING NASCET CRITERIA: % ICA stenosis = (1 - narrowest ICA diameter/diamet er of distal cervical ICA) x 100. Mild - <50% stenosis. Moderate - 50-69% stenosis. Severe - 70-94% stenosis. Near occlusion - 95-99% stenosis. Occluded - 100% stenosis. FINDINGS: Ascending aorta: There is intimal aortic arch calcification extending into the great vesse ls. There is a normal branching pattern of the great vessels off the arch. There is left vertebral artery flow. There is absent flow within the left vertebral artery in its entirety with minimal colla teral vessels. No great vessel origin stenosis is identified. Right carotid artery: Minimal peripheral atheromatous plaque. Normal opacification is demonstrated wi thin the right common carotid artery and at the carotid bifurcation. The carotid bulb demonstrate the presence of surgical clips suggesting previous patch endarterectomy. No evidence for stenosis. The p roximal, mid and distal portion of the right internal carotid artery demonstrated to be patent. No ev idence for stenosis and/or occlusion. Left carotid artery: Normal opacification is demonstrated within the left common carotid artery and at the carotid bifurcation. The carotid bulb demonstrate surgical clips suggesting the possibility o f previous endarterectomy. Caliber narrowing distal portion of the left internal carotid artery at th e level of the left occipital condyle demonstrate the presence of peripheral plaque with soft plaque with stenosis of approximately 50-60% on CT series #402 image 144/184-150/184. Intracranial circulation: Intracranial portions of the internal carotid arteries the cavernous sinus portions demonstrates the presence atheromatous plaque and caliber narrowing of 55% proximal aspect c avernous sinus right internal carotid artery on CT series #508 image 31/166-49/166. The anterior cere bral arteries, middle cerebral arteries and its branches demonstrate normal opacification with no gary dence for stenosis, occlusion and/or aneurysm. There is normal venous drainage with no evidence for s inus vein thrombosis. Vertebrobasilar system: The posterior circulation demonstrate patency of the right vertebral artery w ith no evidence for stenosis and/or evidence for significant dissection. There is absent left vertebr al artery. There is patency bilateral posterior communicating. Otherwise the vertebrobasilar system a nd [employer]ON[employer] demonstrate to be normal with no evidence for aneurysm and/or occlusion. The brain parenchyma demonstrate mild brain atrophy. No evidence for mass effect and/or midline shift . There is no evidence for abnormal right normal enhancement. The skull base and intracranial structures demonstrate to be within normal limits. Minimal opacificat ion left posterior sphenoid sinus. Lung apex: No gross abnormalities are noted within the apices. IMPRESSION: Absent flow within the left vertebral artery in its entirety with minimal collateral ves sels cervical portion. No evidence for right vertebral artery occlusion and/or significant stenosis. Caliber narrowing distal portion of left internal carotid artery at the level of the left occipital c ondyle demonstrate the presence of peripheral plaque with stenosis of approximately 50-60%. 55% stenosis proximal cavernous sinus right ICA. Surgical clips bilateral carotid bulb suggesting prior patch endarterectomy. Electronically signed by: Germain Gonzalez MD 03/30/2023 11:25 PM [employer]IGHT[employer] EXECUTIVE Due to temporary technical issues with the PACS/Fluency reporting system, reports are being signed by the in house radiologists without review as a courtesy to insure prompt reporting. The interpreting radiologist is fully responsible for the content of the report.
--- NOTE | 2023-03-31 20:25 | RAD REPORT ---
EXAM DESCRIPTION: CT - Neck Angio - 03/31/2023 6:47 am CLINICAL HISTORY: 82 years, Female, cva COMPARISON: None TECHNIQUE: Multiple transaxial tomograms from the aortic arch through the brain were performed after administration of large bolus of IV contrast for complete opacification of the carotid arteries and intracranial vessels. Subsequent 2-D and 3-D multiplanar reformats, volume rendering technique and maximum intensity projec tion images were generated and reviewed An individualized dose optimization technique, Automated Exposure Control, was utilized for the perfo rmed procedure. CAROTID STENOSIS REFERENCE USING NASCET CRITERIA: % ICA stenosis = (1 - narrowest ICA diameter/diamet er of distal cervical ICA) x 100. Mild - <50% stenosis. Moderate - 50-69% stenosis. Severe - 70-94% stenosis. Near occlusion - 95-99% stenosis. Occluded - 100% stenosis. FINDINGS: Ascending aorta: There is intimal aortic arch calcification extending into the great vesse ls. There is a normal branching pattern of the great vessels off the arch. There is left vertebral artery flow. There is absent flow within the left vertebral artery in its entirety with minimal colla teral vessels. No great vessel origin stenosis is identified. Right carotid artery: Minimal peripheral atheromatous plaque. Normal opacification is demonstrated wi thin the right common carotid artery and at the carotid bifurcation. The carotid bulb demonstrate the presence of surgical clips suggesting previous patch endarterectomy. No evidence for stenosis. The p roximal, mid and distal portion of the right internal carotid artery demonstrated to be patent. No ev idence for stenosis and/or occlusion. Left carotid artery: Normal opacification is demonstrated within the left common carotid artery and at the carotid bifurcation. The carotid bulb demonstrate surgical clips suggesting the possibility o f previous endarterectomy. Caliber narrowing distal portion of the left internal carotid artery at th e level of the left occipital condyle demonstrate the presence of peripheral plaque with soft plaque with stenosis of approximately 50-60% on CT series #402 image 144/184-150/184. Intracranial circulation: Intracranial portions of the internal carotid arteries the cavernous sinus portions demonstrates the presence atheromatous plaque and caliber narrowing of 55% proximal aspect c avernous sinus right internal carotid artery on CT series #508 image 31/166-49/166. The anterior cere bral arteries, middle cerebral arteries and its branches demonstrate normal opacification with no gary dence for stenosis, occlusion and/or aneurysm. There is normal venous drainage with no evidence for s inus vein thrombosis. Vertebrobasilar system: The posterior circulation demonstrate patency of the right vertebral artery w ith no evidence for stenosis and/or evidence for significant dissection. There is absent left vertebr al artery. There is patency bilateral posterior communicating. Otherwise the vertebrobasilar system a nd [employer] demonstrate to be normal with no evidence for aneurysm and/or occlusion. The brain parenchyma demonstrate mild brain atrophy. No evidence for mass effect and/or midline shift . There is no evidence for abnormal right normal enhancement. The skull base and intracranial structures demonstrate to be within normal limits. Minimal opacificat ion left posterior sphenoid sinus. Lung apex: No gross abnormalities are noted within the apices. IMPRESSION: Absent flow within the left vertebral artery in its entirety with minimal collateral ves sels cervical portion. No evidence for right vertebral artery occlusion and/or significant stenosis. Caliber narrowing distal portion of left internal carotid artery at the level of the left occipital c ondyle demonstrate the presence of peripheral plaque with stenosis of approximately 50-60%. 55% stenosis proximal cavernous sinus right ICA. Surgical clips bilateral carotid bulb suggesting prior patch endarterectomy. Electronically signed by: Germain Gonzalez MD 03/30/2023 11:25 PM VAN DRIVER HELPER Due to temporary technical issues with the PACS/Fluency reporting system, reports are being signed by the in house radiologists without review as a courtesy to insure prompt reporting. The interpreting radiologist is fully responsible for the content of the report.
[2023-03-31] MEDS: LABETALOL 20 MG/4ML SYRINGE IV ONE (20:48)
--- NOTE | 2023-03-31 20:49 | CON ---
Reason For Consultation: Consultation called because of possible stroke. History Of Present Illness: Ms. Haskins is an 82-year-old, right-handed patient, who has diabetes clayton itus type 2, hypertension, dyslipidemia, prior stroke in 2014 with good recovery and who was independ ent with mobilization, ambulation, transfers, and driving without any significant residual deficit. Two days ago, the patient developed weakness that was diffuse, mild confusion, and dysarthria and dif ficulty with expression and articulation and she was brought to [facility]. She had been actu ally before that falling on multiple occasions. [facility] head CT scan was done at 8:06 p.m. on the . The study showed increased size and density of the right putamen basal ganglia, which likely could be related to ischemia. Brain MRI was ordered. Study is pending. She has a CT angiogr am of head and neck also pending. Chest x-ray showed no evidence of pneumonia. Sternotomy wires wer e noted. No displaced fractures. Her blood work showed a slightly elevated white blood cell count o f 11.8, neutrophils 83.5, hemoglobin and hematocrit unremarkable. She has a stroke labs pending incl uding protein C, protein S, antithrombin 3, factor 5 Leiden. Her blood sugars ranged from 160 to 230 . AST, ALT, alkaline phosphatase essentially unremarkable. Creatinine normal at 0.8. Urinalysis is pending. Rest of stroke workup also pending. The patient's family noted that she was coughing somewhat with eating. Apparently, tried to eat some strawberries and had significant coughing with that. While I was evaluating the patient, she had he r lunch with chopped meats and thin liquids. She would cough after every bite of food and had signif icant coughing when attempting to drink the water. Past Medical History: As noted in addition to asthma, bronchitis, glaucoma, peripheral vascular dise ase, hypertension, dyslipidemia, diabetes mellitus. Surgical History: Coronary artery bypass grafting, 3 vessels, cardiac stents and stents in her legs. Social History: No alcohol, tobacco, or IV drug use. Allergies: LEVOFLOXACIN, IODINE. Medications: At home; Lipitor 20 mg daily, Tessalon Perles 100 mg twice daily, Alphagan 0.15% one dr op in each eye twice daily. In addition to, aspirin 162 mg daily, Lipitor 40 mg at bedtime, Lovenox 40 mg subcutaneously daily, Zofran 4 mg every 6 hours as needed, Tylenol 650 mg daily. Family History: Heart disease in mother. Liver disease in father. Diabetes and liver disease in br other. Review of Systems: As noted diffuse weakness and choking and coughing with eating. Otherwise, no fevers, chills. No si gnificant myalgias, arthralgias. No rash. There is wound on the right foot. She is followed in u or Care and so there is some pain in the right foot where she has some skin breakdown. Neurologically, she is alert, oriented to situation, place, person. She follows commands appropriate ly. She does have some mild difficulty with lingual, labial, guttural sounds and significant coughin g when attempting to drink just small amounts of thin liquids and moderate coughing while eating chop ped meats. Her cranial nerve otherwise intact, sensation intact. Tongue and palate appear midline. On motor examination, she has no focal weakness in the upper and lower extremities with 5/5 proximal ly and distally. Mild incoordination, mild stocking-glove loss and depressed reflexes. Assessment: Ms. Haskins is an 82-year-old patient in the hospital with possible stroke, although evide nce of potential stroke may be potential for aspiration. She does not have any otherwise focal crani al nerve findings. No focal motor, coordination, sensory, or gait findings and the NIH Stroke Scale at this point is 0. Plan: Given the aspiration, there may be an etiology for her dysphagia and she should have a modifie d barium swallow study. Until at this point, she was able to actually manage a banana consistency ve ry well with no aspiration and may be put on nectar thick liquids and soft bite size of food. She sh ould be evaluated by Physical Therapy to see if outpatient physical therapy may be beneficial. Other hernández, her comorbid condition should continue as noted. Her prior to hospital medications do include aspirin and Plavix along with glipizide for diabetes mellitus, those should be continued. Antihypert ensive medications also continued. LESVIA/BARTOLOME Voice ID: [id number] Report ID: [id number]
[2023-03-31] MEDS: ALBUTEROL 2.5 MG/3 ML NEB SOL ONE (21:08)
[2023-03-31] MEDS: IPRATROPIUM BROM 0.5MG/2.5ML ONE (21:08)
[2023-03-31] MEDS: ACETAMINOPHEN 325 MG TABLET PO PRN (22:24)
[2023-03-31] MEDS: INSULIN REGULAR (HUMAN) 100 UNIT/ML SQ SCH (22:24)
[2023-04-01] MEDS: ALBUTEROL 2.5 MG/3 ML NEB SOL NEB SCH (01:51)
[2023-04-01] MEDS: IPRATROPIUM BROM 0.5MG/2.5ML NEB SCH (01:51)
[2023-04-01 09:54] LABS: Absolute Lymphocytes (CBC) 1.2 K/uL (0.7-4.9); Hematocrit 33.4 % (36.0-45.0); Lymphocytes % 14.6 % (15.3-44.8); MCV 81.6 fL (80-100); MPV 9.4 fL (7.6-11.3); Platelets 143 thou/uL (152-406)
--- NOTE | 2023-04-01 10:02 | P.PN ---
Subjective Date of Service: 04/01/23 Chief Complaint: CVA. Pt is resting comfortably in bed. She denies any focal deficit. CT head is concerning for acute CVA. MRI brain is concerning for low grade primary [employer] neoplasm or lymphoma. Will f/u Echo. Consulted Neurology. no other issues overnight. Review of Systems Unremarkable General: Unremarkable Eyes: Unremarkable ENT: Unremarkable Respiratory: Unremarkable Cardiovascular: Unremarkable Gastrointestinal: Unremarkable Genitourinary: Unremarkable Musculoskeletal: Unremarkable Neurological: Unremarkable Lymphatics: Unremarkable Physical Examination - Vital Signs Temperature: 97.0 F Blood Pressure: 166/75 Pulse: 58 Respirations: 16 Pulse Ox (%): 100 - Physical Exam General: Alert, In no apparent distress, Oriented x3 HEENT: Atraumatic, Normocephalic Neck: Supple, 2+ carotid pulse no bruit Respiratory: Clear to auscultation bilaterally, Normal air movement Cardiovascular: Normal pulses, Regular rate/rhythm, Normal S1 S2 Capillary refill: <2 Seconds Gastrointestinal: Normal bowel sounds, Soft and benign, Non-distended Musculoskeletal: No clubbing, No swelling Integumentary: No rashes, No breakdown Neurological: Normal speech, Normal strength at 5/5 x4 extr, Normal tone, Sensation intact, Cranial nerves 3-12 intact Lymphatics: No axilla or inguinal lymphadenopathy Assessment And Plan - Plan Acute stroke: CT head is concerning for acute/ subacute CVA. MRI brain is concerning for low grade primary [employer] neoplasm or lymphoma. CTA head & neck unremarkable. Echo is pending. Neurology evaluated pt and recommended keppra 250mg po qhs. Will continue aspirin, plavix and atorvastatin. Will do MBS. Will check lipid panel. Consulted PT Hypertension: Will allow permissive htn until we r/o CVA. Hyperlipidemia: Continue statin therapy. Diabetes type 2: Will continue accuchek, SSI and ADA diet. Elevated BNP: BNP is 4094. Will f/u Echo. DVT Prophylaxis: Lovenox Code: full Disposition: Pending hospital course.
[2023-04-01] MEDS: ALBUTEROL 2.5 MG/3 ML NEB SOL NEB PRN (10:45)
[2023-04-01] MEDS: IPRATROPIUM BROM 0.5MG/2.5ML NEB PRN (10:45)
[2023-04-01 11:33] LABS: Potassium 3.6 mEq/L (3.5-5.1)
[2023-04-01] MEDS: GUAIFENESIN/DM 5 ML UCUP PO PRN (11:42)
[2023-04-01 19:31] LABS: RPR (Rapid Plasma Reagin) NON-REACT (NON-REACT)
[2023-04-01] MEDS: levETIRAcetam 500 MG TAB PO SCH (20:34)
[2023-04-01] MEDS: CITALOPRAM 10 MG TABLET ONE (22:02)
[2023-04-01] MEDS: METOPROLOL TAR 50 MG TAB PO SCH (22:15)
[2023-04-01] MEDS: CITALOPRAM 10 MG TABLET PO SCH (22:15)
[2023-04-02] MEDS: FUROSEMIDE 40 MG/4 ML VIAL IV SCH (01:02)
[2023-04-02 03:43] LABS: Absolute Lymphocytes (CBC) 0.6 K/uL (0.7-4.9); Hematocrit 27.5 % (36.0-45.0); Lymphocytes % 12.1 % (15.3-44.8); MCV 82.1 fL (80-100); MPV 9.4 fL (7.6-11.3); Platelets 120 thou/uL (152-406); RBC Red Blood Cell Count 3.35 M/uL (3.86-4.86)
[2023-04-02 03:56] LABS: Potassium 3.5 mEq/L (3.5-5.1)
[2023-04-02] MEDS: LOSARTAN/HCTZ 50-12.5 PO SCH (09:09)
[2023-04-02] MEDS: TIMOLOL MALEATE 0.5% OPTH 5 ML BTL EACH EYE SCH (09:34)
[2023-04-02] MEDS: PENTOXIFYLLINE ER 400 MG TAB PO SCH (09:34)
--- NOTE | 2023-04-02 10:21 | P.PN ---
Subjective Date of Service: 04/02/23 Chief Complaint: CVA. Pt is resting comfortably in bed. She denies any focal deficit. Pt has exp wheezing this am. Waitingf or duoneb. CT head is concerning for acute CVA. 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 Will f/u Echo. Consulted Neurology. No other issues overnight. Review of Systems Unremarkable General: Unremarkable Eyes: Unremarkable ENT: Unremarkable Respiratory: Wheezing Cardiovascular: Unremarkable Gastrointestinal: Unremarkable Genitourinary: Unremarkable Musculoskeletal: Unremarkable Integumentary: Unremarkable Neurological: Unremarkable Lymphatics: Unremarkable Physical Examination - Vital Signs Temperature: 97.7 F Blood Pressure: 169/60 Pulse: 69 Respirations: 15 Pulse Ox (%): 92 - Physical Exam General: Alert, In no apparent distress, Oriented x3 HEENT: Atraumatic, Normocephalic, PERRLA Neck: Supple, 2+ carotid pulse no bruit Respiratory: Normal air movement, Expiratory wheezes Cardiovascular: No edema, Normal pulses, Regular rate/rhythm, Normal S1 S2 Capillary refill: <2 Seconds Gastrointestinal: Normal bowel sounds, Soft and benign, Non-distended Musculoskeletal: No clubbing, No swelling Integumentary: No rashes, No breakdown Neurological: Normal speech, Normal strength at 5/5 x4 extr, Normal tone, Sensation intact, Cranial nerves 3-12 intact Lymphatics: No axilla or inguinal lymphadenopathy Assessment And Plan - Plan Acute stroke: CT head is concerning for acute/ subacute CVA. MRI brain is concer rodolfo for low grade primary [employer]ACH[employer] ADJUSTER neoplasm or lymphoma. CTA head & neck unremarkable. Echo is pending. Neurology evaluated pt and recommended keppra 250mg po qhs. Will continue aspirin, plavix and atorvastatin. Will do MBS. Will check lipid panel. Consulted PT Exp wheezing: Will f/u CXR. Continue prn duoneb and oxygen. Hypertension: Will allow permissive htn until we r/o CVA. Hyperlipidemia: Continue statin therapy. Diabetes type 2: Will continue accuchek, SSI and ADA diet. Elevated BNP: BNP is 4094. Will f/u Echo. DVT Prophylaxis: Lovenox Code: full Disposition: Pending hospital course.
--- NOTE | 2023-04-02 11:41 | RAD REPORT ---
EXAM DESCRIPTION: RAD - Chest Single View - 04/02/2023 11:32 am CLINICAL HISTORY: Exp wheezing COMPARISON: Chest Single View dated 03/30/2023; Chest Single View dated 03/25/2022; Chest Single View dated 03/24/2022; Chest Single View dated 03/12/2022 FINDINGS: Lines: None. Lungs: No evidence of edema or pneumonia. Pleural: No significant pleural effusions or pneumothorax. Cardiac: Cardiomegaly. Sternotomy. Mediastinum: Within normal limits. Bones: No acute fractures. Other: None IMPRESSION: No acute cardiopulmonary disease.
[2023-04-02] MEDS: levETIRAcetam 500 MG TAB PO SCH (21:28)
--- NOTE | 2023-04-03 05:46 | P.PN ---
Date of Service: 04/03/23 Subjective: Physical Exam: Vitals: reviewed GEN: Alert, oriented, NAD HEENT: Normal conjunctiva, sclera anicteric CV: Regular rate & rhythm, no edema Pulm: Nonlabored respiraitons, clear bilaterally ABD: Soft, nontender, nondistended MSK: No joint tenderness Integumentary: No rashes Neuro: Normal speech, normal affect Problem List: Acute CVA Asthma NIDDM2 Hypertension Hyperlipidemia CAD s/p CABG hx prior CVA (2014) Plan: Acute CVA hx prior CVA (2014) CT head (03/30): increased size / density of right putamen / basal ganglia. CTA head/neck (03/30): Absent flow within the left vertebral artery in its entirety with minimal collateral vessels cervical portion. No evidence for right vertebral artery occlusion and/or significant stenosis. Caliber narrowing distal portion of left internal carotid artery at the level of the left occipital condyle demonstrate the presence of peripheral plaque with stenosis of approximately 50-60%.55% stenosis proximal cavernous sinus right ICA. MRI brain (03/31): Expansile appearance of the right lentiform nucleus and overlying insular ribbon, with signal abnormalities also likely extending to the amygdala. 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 oxygen supplementation as needed NIDDM2 sliding scale insulin, continue carb restricted diet Hypertension Hyperlipidemia CAD s/p CABG continue home meds as appropriate VTE: lovenox
[2023-04-03 06:55] LABS: Absolute Lymphocytes (CBC) 1.2 K/uL (0.7-4.9); Hematocrit 30.1 % (36.0-45.0); Lymphocytes % 24.9 % (15.3-44.8); MCV 81.9 fL (80-100); MPV 9.1 fL (7.6-11.3); Platelets 139 thou/uL (152-406); RBC Red Blood Cell Count 3.67 M/uL (3.86-4.86)
--- NOTE | 2023-04-03 07:37 | ECHO ---
HEIGHT: 5 ft 0 in WEIGHT: 130 lb 15.979 oz DATE OF STUDY: 03/31/[address]: Mychal Roberts MD 2-DIMENSIONAL: YES M.MODE: YES DOPPLER: YES COLOR FLOW: YES TDS: NO PORTABLE: YES DEFINITY: NO BUBBLE STUDY: NO DIAGNOSIS: STROKE CARDIAC HISTORY: CATHERIZATION: SURGERY: PROSTHETIC VALVE: PACEMAKER: MEASUREMENTS (cm) DIASTOLIC (NORMALS) SYSTOLIC (NORMALS) IVSd 1.0 (0.6-1.2) LA Diam 3.5 (1.9-4.0) LVEF 65% LVIDd 5.0 (3.5-5.7) LVIDs 3.2 (2.0-3.5) %FS 36% LVPWd 1.3 (0.6-1.2) Ao Diam 2.4 (2.0-3.7) 2 DIMENSIONAL ASSESSMENT: RIGHT ATRIUM: NORMAL LEFT ATRIUM: ENLARGED RIGHT VENTRICLE: NORMAL LEFT VENTRICLE: MILD LEFT VENTRICULAR HYPERTROPHY TRICUSPID VALVE: MILD TRICUSPID REGURGITATION MITRAL VALVE: MODERATE MITRAL REGURGITATION PULMONIC VALVE: MILD PULMONIC INSUFFICIENCY AORTIC VALVE: HEAVILY CALCIFIED WITH AORTIC STENOSIS PERICARDIAL EFFUSION: NONE AORTIC ROOT: NORMAL LEFT VENTRICULAR WALL MOTION: NORMAL. DOPPLER/COLOR FLOW: SEE BELOW. COMMENTS: 1. NORMAL LEFT VENTRICULAR EJECTION FRACTION 60-65% WITH NORMAL WALL MOTION. 2. LEFT ATRIAL ENLARGEMENT. 3. MODERATE MITRAL REGURGITATION. 4. HEAVILY CALCIFIED AORTIC VALVE WITH AT LEAST MODERATE STENOSIS (NEEDS BETTER EVALUATION). 5. MILD TRICUSPID REGURGITATION. 6. MODERATE DIASTOLIC DYSFUNCTION TECHNOLOGIST: RAS LANG
[2023-04-03 10:17] LABS: Specific Gravity 1.017 (1.005-1.030); Urine Bilirubin NEGATIVE (Negative); Urine Blood Negative (Negative); Urine Clarity Clear (Clear); Urine Color Light-Yellow (Yellow); Urine Glucose NEGATIVE (Negative); Urine Protein NEGATIVE (Negative); Urine Urobilinogen Normal (Normal); Urine pH 6.5 (5.0-7.0)
--- NOTE | 2023-04-03 11:00 | EKG ---
Test Date: 2023-04-01 Test Time: 13:44:09 Glue Maker Bone: SCOT MEASUREMENT RESULTS: Intervals: Rate: 92 MN: 140 QRSD: 92 QT: 348 QTc: 430 [place]: P: 54 MN: 140 QRS: 119 T: 224 INTERPRETIVE STATEMENTS: Sinus rhythm with frequent premature ventricular complexes and fusion complexes Left posterior fascicular block ST elevation, consider inferior injury or acute infarct ACUTE PA Consider right ventricular involvement in acute inferior infarct Abnormal ECG Compared to ECG 03/30/2023 20:16:40 Fusion complex(es) now present Ventricular premature complex(es) now present Left posterior fascicular block now present Left-axis deviation no longer present ST (T wave) deviation still present Myocardial infarct finding still present Myocardial infarct finding still present Electronically Signed On 04-03-23 10:57:15 SERVICES MANAGER by Miles Méndez
--- NOTE | 2023-04-03 11:00 | EKG ---
Test Date: 2023-04-01 Test Time: 13:45:23 Money Counter: SCOT MEASUREMENT RESULTS: Intervals: Rate: 91 [place]: 132 QRSD: 92 QT: 340 QTc: 418 [place]: P: 56 [place]: 132 QRS: 120 T: 242 INTERPRETIVE STATEMENTS: Sinus rhythm with frequent premature ventricular complexes and fusion complexes Left posterior fascicular block ST elevation, consider inferior injury or acute infarct ACUTE CO Consider right ventricular involvement in acute inferior infarct Abnormal ECG Compared to ECG 04/01/2023 13:44:09 No significant changes Electronically Signed On 04-03-23 10:57:05 GAS PRODUCER by Miles Méndez
--- NOTE | 2023-04-03 11:06 | EKG ---
Test Date: 2023-03-30 Test Time: 20:14:47 Gas Compressor Turbine Operator: RONN MEASUREMENT RESULTS: Intervals: Rate: 76 [place]: 134 QRSD: 92 QT: 386 QTc: 434 [place]: P: 69 [place]: 134 QRS: -35 T: 121 INTERPRETIVE STATEMENTS: Normal sinus rhythm Left axis deviation Septal infarct, age undetermined ST & T wave abnormality, consider lateral ischemia Abnormal ECG Compared to ECG 06/16/2022 19:17:52 Left-axis deviation now present Myocardial infarct finding now present ST (T wave) deviation still present Possible ischemia still present Electronically Signed On 04-03-23 11:00:25 CALF SKINNER by Miles Méndez
--- NOTE | 2023-04-03 11:06 | EKG ---
Test Date: 2023-03-30 Test Time: 20:16:40 Imaging Tech: RONN MEASUREMENT RESULTS: Intervals: Rate: 78 MD: 134 QRSD: 92 QT: 388 QTc: 442 [place]: P: 69 MD: 134 QRS: -30 T: 126 INTERPRETIVE STATEMENTS: Normal sinus rhythm Left axis deviation Septal infarct, age undetermined Marked ST abnormality, possible lateral subendocardial injury Abnormal ECG Compared to ECG 03/30/2023 20:14:47 Possible ischemia no longer present Myocardial infarct finding still present ST (T wave) deviation still present Electronically Signed On 04-03-23 11:00:21 TOURIST INFORMATION ASSISTANT by Miles Méndez
[2023-04-03] MEDS: LOSARTAN/HCTZ 50-12.5 PO SCH (16:30)
[2023-04-03 18:28] LABS: Phosphatidylser & Prothrom IgG <9 U (<=30); Phosphatidylser & Prothrom IgM <9 U (<=30)
[2023-04-03] MEDS: METOPROLOL TAR 25 MG TAB PO SCH (19:00)
[2023-04-03] MEDS: HYDRALAZINE HCL 10 MG TABLET PO SCH (20:59)
[2023-04-04] MEDS ORDERED: DIPHENHYDRAMINE 50 MG/ML VIAL IV PRN (09:53)
[2023-04-04] MEDS: TIMOLOL MALEATE 0.5% OPTH 5 ML BTL EACH EYE SCH (10:07)
--- NOTE | 2023-04-04 12:30 | RAD REPORT ---
EXAM DESCRIPTION: MRI - Brain W/Wo Cont - 04/04/2023 12:20 pm CLINICAL HISTORY: Brain neoplasia Headache, drowsiness COMPARISON: Brain Wo Cont dated 03/31/2023; Head angio dated 03/30/2023; Neck Angio dated 03/30/2023; H ead Brain Wo Cont dated 03/30/2023; Head Brain Wo Cont dated 03/25/2022 TECHNIQUE: Multi-sequence, multiplanar MR imaging of the brain was performed with contrast. FINDINGS: Enlargement of the right lentiform nucleus is again seen with elevated T2/FLAIR signal, me asuring up to 3.8 cm. The adjacent insular ribbon appears thickened with elevated signal on FLAIR giovanna ges. This extends inferiorly to the medial right temporal region. On postcontrast images, there is en hancement present measuring 3.7 x 3.5 cm. Subtle mass effect is seen on the third ventricle without h ydrocephalus. No hemorrhage seen. No acute infarct. IMPRESSION: Enlargement and abnormal elevated FLAIR signal involving predominately the right lentifo rm nucleus. 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
--- NOTE | 2023-04-04 12:39 | RAD REPORT ---
EXAM DESCRIPTION: Alise Single View04/04/2023 12:31 pm CLINICAL HISTORY: Chest pain COMPARISON: April 02, 2023 FINDINGS: The lungs appear clear of acute infiltrate. The heart is moderately enlarged. Postsurgica l changes involve the chest IMPRESSION: No acute abnormalities displayed
[2023-04-04 13:26] LABS: Albumin, (SPE) 3.7 g/dL (3.8-4.8); Alpha-1-Globulins 0.4 g/dL (0.2-0.3); Alpha-2-Globulins 0.9 g/dL (0.5-0.9); Gamma Globulins 1.3 g/dL (0.8-1.7); INTERPRETATION REPORT; Protein C Antigen 78 % normal (70-140)
[2023-04-04] MEDS: METHYLPREDNISOLONE 40 MG INJ IV SCH (13:43)
[2023-04-04] MEDS ORDERED: HYDRALAZINE HCL 10 MG TABLET PO SCH (14:00)
[2023-04-04] MEDS: LOSARTAN POTASSIUM 50 MG TABLET PO SCH (21:14)
[2023-04-04] MEDS: LABETALOL 20 MG/4ML SYRINGE IV PRN (21:54)
[2023-04-04 23:36] LABS: Potassium 3.4 mEq/L (3.5-5.1)
[2023-04-04 23:37] VITALS: O2SAT 97
[2023-04-05 00:24] VITALS: BP 143/55; TEMP 97.1
[2023-04-05] MEDS ORDERED: hydroCHLOROthiazide 12.5 MG CAP PO SCH (09:00)
== END 2023-04-05 01:55 | disposition short-term general hospital (02) | DRG 66 ==
LOC: ER 19:57 → ERHOLD 03-31 01:57 → 2ND 03-31 05:40
PROVIDERS: ADMIT Internal Medicine Nephrology; ATTEND Hospitalist
DX: I63.9 Cerebral infarction, unspecified (principal); I10 Essential (primary) hypertension; E78.5 Hyperlipidemia, unspecified; E11.51 Type 2 diabetes mellitus with diabetic peripheral angiopathy without gangrene; I25.2 Old myocardial infarction; J45.909 Unspecified asthma, uncomplicated; I25.10 Atherosclerotic heart disease of native coronary artery without angina pectoris; R53.1 Weakness; R41.0 Disorientation, unspecified; R47.1 Dysarthria and anarthria; R29.700 NIHSS score 0; R29.6 Repeated falls; Z91.81 History of falling; Z88.1 Allergy status to other antibiotic agents; Z95.5 Presence of coronary angioplasty implant and graft; Z86.73 Personal history of transient ischemic attack (TIA), and cerebral infarction without residual deficits; Z79.84 Long term (current) use of oral hypoglycemic drugs; Z79.02 Long term (current) use of antithrombotics/antiplatelets; Z79.899 Other long term (current) drug therapy
CPT/HCPCS: 36415; 70450; 70496; 70498; 70551; 70553; 71045; 80048; 80076; 81003; 81240; 81241; 82306; 82607; 82947; 83090; 83516; 83735; 83880; 84165; 84484; 85025; 85300; 85302; 85305; 85306; 86021; 86146; 86147; 86592; 92523; 92526; 92610; 93005; 93306; 94640; 96374; 96375; 97116; 97129; 97161; 97530; 99285; A9577; J1200; J1650; J1815; J1940; J2405; J2920; J2930; J7030; J7613; J7644; Q9967